=== PATIENT | female | born 1945 | race Caucasian/White ===

== ENCOUNTER 2021-02-09 15:41 | Inpatient (IN) | payer MEDICARE, SELFPAY ==
[2021-02-09 15:55] VITALS: BP 170/90; BP 175/99; PULSE 78; PULSE 82; RESP 16; TEMP 36.7; O2SAT 97; BMI 26.2
--- NOTE | 2021-02-09 16:13 | ED.PSYCH ---
HPI - Psych General Chief Complaint: Psychiatric Symptoms Stated Complaint: sec 12 SI ( feels unwell ) Time Seen by Provider: 02/09/21 18:08 Source: patient, family and EMS Mode of arrival: EMS Limitations: no limitations History of Present Illness HPI Narrative: 75-year-old female presents to the emergency department via EMS for psychiatric concerns. Patient was recently taken off Zyprexa and Depakote and family noted a quick decompensation with increase of paranoia and suicidal statements. MD complaint: suicidal ideation and feels depressed Duration: constant History of same: Yes Relieving factors: none Exacerbating factors: other (Medication discontinuation) Associated psychiatric symptoms: depression, suicidal ideation, racing thoughts and delusions Associated symptoms: denies other symptoms Treatments prior to arrival: placed on mental health hold If self harm: admits thoughts of self harm Related Data Home Medications Medication Instructions Recorded Confirmed aspirin 81 mg tablet 81 mg PO DAILY 02/09/21 02/09/21 carvedilol 6.25 mg tablet 1 tab PO BID 02/09/21 02/09/21 clopidogrel 75 mg tablet 1 tab PO DAILY 02/09/21 02/09/21 furosemide 40 mg tablet 1 tab PO DAILY 02/09/21 02/09/21 lisinopril 2.5 mg tablet 1 tab PO DAILY 02/09/21 02/09/21 magnesium 250 mg tablet 250 mg PO DAILY 02/09/21 02/09/21 pantoprazole 40 mg tablet,delayed 1 tab PO DAILY 02/09/21 02/09/21 release potassium chloride 10 mEq 2 tab PO DAILY 02/09/21 02/09/21 tablet,extended release Allergies Allergy/AdvReac Type Severity Reaction Status Date / Time No Known Allergies [NKA] Allergy Mild NOT Unverified 11/23/19 14:43 APPLICABLE Review of Systems Review of Systems: Constitutional: No Fever, No Chills ENT/Mouth: No Ear Pain, No Nasal Congestion, No sore throat Eyes: No Eye Pain, No Swelling, No Redness Cardiovascular: No Chest Pain, No SOB Respiratory: No Cough, No Sputum, No Dyspnea Gastrointestinal: No Nausea, No Vomiting, No Diarrhea, No Hematochezia, No Melena Genitourinary: No Dysuria, No Urinary Frequency, No Hematuria Musculoskeletal: No Myalgias Skin: No Skin Lesions, No rash Neuro: No Weakness, No Numbness, No Paresthesias, No Dizziness, No Headache Psych: positive Anxiety, positive Depression, positive SI Heme/Lymph: No Lymphadenopathy Endocrine: No Polyuria, No Polydipsia Yes all other systems are reviewed and are negative [facility] Past Medical History Attestation statement: The following information was validated with the patient. Source: old records reviewed Social History Social History Patient Tobacco Use Status: Never used Tobacco Advance Directives: No Advance Directives Information Provided: Yes Healthcare Proxy: No Guardian: No Physical Exam Vital Signs: Vital Signs: Last Vital Signs Temp 98.1 F 02/09/21 15:55 Pulse 78 02/09/21 15:55 Resp 16 02/09/21 15:55 BP 175/99 H 02/09/21 15:55 Pulse Ox 97 02/09/21 15:55 BMI result Body Mass Index 26.2 Appearance: Alert. Oriented X3. Moderate psychiatric distress. Eyes: Pupils equal, round and reactive to light. ENT: Pharynx normal. Neck: Normal inspection. Neck supple. CVS: Normal heart rate and rhythm. Pulses normal. Respiratory: No respiratory distress. Breath sounds normal. Abdomen: Soft and nontender. Skin: Skin warm and dry. Normal skin color. Normal skin turgor. Extremities: No lower extremity edema. Moves all extremities against resistance. Gait while balance well coordinated. Neuro: No motor deficit. No sensory deficit. Cranial nerves 2-12 intact. Course Course Course Narrative: [age] presents via EMS for psychiatric decompensation. Patient's son who is a painter rough and professional development director is at bedside. States that patient has a longstanding history of psychiatric concerns, was diagnosed with schizophrenia and recently taken off of Zyprexa and Depakote for tremors. Son has noted that patient is more delusional, paranoid, and has been making suicidal statements. She lives in an assisted living facility and she has been calling for assistance several times a day. Past medical history includes hypertension, hyperlipidemia, coronary artery disease history of STEMI status post JEAN PIERRE to LAD and CABG x2 in January of last year. Patient has been worked up at [facility] on 01/20/[address] head, CTA indicating 70% stenosis of the distal right common carotid artery and 75% stenosis of the right internal carotid, 60% stenosis of the internal carotid, mild narrowing of the origin of either vertebral artery approximately 50% stenosis of either intracranial vertebral artery. 50% stenosis of the distal cavernous and supraclinoid internal artery bilaterally. Normal anterior middle and posterior cerebral arteries EKG was 71, normal sinus rhythm with T-wave inversions in lateral leads with ST elevations with Wellens appearance in V1 through V3 unchanged from prior EKGs. EKG comparison from November 2020 with no significant findings. Patient does have heart failure with a left ejection fraction of 30-35% lab values were within normal limits. Plan of care is for inpatient bed search. Physician observation started at this time. 6:05 p.m. EKG indicates acute STEMI however, when compared to EKG from [facility] on 01/20 there are no significant changes. This is not an active STEMI. First troponin is 30.0. Repeat troponin at 8:30 p.m. 26.7. Patient is medically cleared. MDM - Psych Differential Diagnosis Differential diagnosis: Likely acute psychosis, suicidal ideation, depression and schizoaffective disorder Medical Records Attestation: I reviewed the patient's medical records. Lab Data Attestation: I reviewed the patient's lab results. Result diagrams: 02/09/21 16:51 02/09/21 16:51 Labs: Lab Results 02/09/21 02/09/21 02/09/21 Range/Units 16:41 16:41 16:51 WBC 13.3 H (4.8-10.8) X10*3/uL RBC 4.80 (4.20-5.50) X10*6/uL Hgb 15.1 (12.0-16.0) g/dl Hct 43.5 (37.0-47.0) % MCV 90.6 (80.0-98.0) fL MCH 31.5 (27.0-33.0) pg MCHC 34.7 (31.0-35.0) g/dl RDW 11.8 (11.0-16.0) % Plt Count 311 (160-400) X10*3/uL MPV 9.6 (9.4-12.3) fL Immature Gran % (Auto) 0.5 H (0.0-0.4) % Neut % (Auto) 74.8 H (45-73) % Lymph % (Auto) 14.7 L (20-40) % [place] % (Auto) 9.1 (2-11) % Eos % (Auto) 0.5 (0-4) % Baso % (Auto) 0.4 (0-2) % Lymph # (Auto) 2.0 (1.2-4.9) X10*3/uL [place] # (Auto) 1.2 (0.1-1.2) X10*3/uL Eos # (Auto) 0.1 (0.0-0.4) X10*3/uL Baso # (Auto) 0.1 (0.0-0.2) X10*3/uL Abs Immat Gran (auto) 0.06 H (0.00-0.03) X10*3/uL Absolute Neuts (auto) 10.0 H (2.0-8.3) x10*3/uL Absolute Nucleated RBC 0.000 (0.0-0.012) X10*3/uL Nucleated RBC % (auto) 0.0 (0.0-0.2) /100WBC Sodium (135-145) mmol/L Potassium (3.3-5.1) mmol/L Chloride (96-108) mmol/L Carbon Dioxide (22-29) mmol/L Anion Gap (12-20) BUN (9-16) mg/dL Creatinine (0.5-1.4) mg/dL Estim Creat Clear Calc Estimated GFR Random Glucose (60-115) mg/dL Calcium (8.4-10.2) mg/dL Total Bilirubin (0.0-1.0) mg/dL AST (5-31) U/L ALT (0-31) U/L Alkaline Phosphatase (39-117) U/L Troponin I High Sens (<3.5-17.0) ng/L Total Protein (6.5-8.0) g/dL Albumin (3.5-5.0) g/dL Urine Color Urine Appearance Urine pH (5.0-8.0) Ur Specific [place] (1.005-1.025) Urine Protein (NEG-TRACE) MG/DL Urine Glucose (UA) (NEG) MG/DL Urine Ketones (NEG) MG/DL Urine Blood (NEG) Urine Nitrite (NEG) Ur Leukocyte Esterase (NEG) Urine RBC (0) /HPF Urine WBC (0-4) /HPF Ur Squamous Epith Cells /LPF Urine Bacteria /LPF Salicylates (15-30) mg/dL Urine Opiates Screen Not Detected (Not Detect) Urine Fentanyl Screen Not Detected (Not Detect) Acetaminophen (<30) mcg/mL Ur Barbiturates Screen Not Detected (Not Detect) Ur Phencyclidine Scrn Not Detected (Not Detect) Ur Amphetamines Screen Not Detected (Not Detect) U Benzodiazepines Scrn Not Detected (Not Detect) Urine Cocaine Screen Not Detected (Not Detect) U Marijuana (THC) Screen Not Detected (Not Detect) Ethyl Alcohol mg/dL COVID-19 (SIN) Negative (Negative) COVID-19 Clin Com See Note 02/09/21 02/09/21 02/09/21 Range/Units 16:51 16:51 18:32 WBC (4.8-10.8) X10*3/uL RBC (4.20-5.50) X10*6/uL Hgb (12.0-16.0) g/dl Hct (37.0-47.0) % MCV (80.0-98.0) fL MCH (27.0-33.0) pg MCHC (31.0-35.0) g/dl RDW (11.0-16.0) % Plt Count (160-400) X10*3/uL MPV (9.4-12.3) fL Immature Gran % (Auto) (0.0-0.4) % Neut % (Auto) (45-73) % Lymph % (Auto) (20-40) % [place] % (Auto) (2-11) % Eos % (Auto) (0-4) % Baso % (Auto) (0-2) % Lymph # (Auto) (1.2-4.9) X10*3/uL [place] # (Auto) (0.1-1.2) X10*3/uL Eos # (Auto) (0.0-0.4) X10*3/uL Baso # (Auto) (0.0-0.2) X10*3/uL Abs Immat Gran (auto) (0.00-0.03) X10*3/uL Absolute Neuts (auto) (2.0-8.3) x10*3/uL Absolute Nucleated RBC (0.0-0.012) X10*3/uL Nucleated RBC % (auto) (0.0-0.2) /100WBC Sodium 135 (135-145) mmol/L Potassium 3.6 (3.3-5.1) mmol/L Chloride 97 (96-108) mmol/L Carbon Dioxide 24 (22-29) mmol/L Anion Gap 18 (12-20) BUN 22 H (9-16) mg/dL Creatinine 0.75 (0.5-1.4) mg/dL Estim Creat Clear Calc 57.3 Estimated GFR > 60 Random Glucose 128 H (60-115) mg/dL Calcium 10.7 H (8.4-10.2) mg/dL Total Bilirubin 0.5 (0.0-1.0) mg/dL AST 20 (5-31) U/L ALT 17 (0-31) U/L Alkaline Phosphatase 100 (39-117) U/L Troponin I High Sens 30.0 H (<3.5-17.0) ng/L Total Protein 7.7 (6.5-8.0) g/dL Albumin 4.5 (3.5-5.0) g/dL Urine Color Urine Appearance Urine pH (5.0-8.0) Ur Specific [place] (1.005-1.025) Urine Protein (NEG-TRACE) MG/DL Urine Glucose (UA) (NEG) MG/DL Urine Ketones (NEG) MG/DL Urine Blood (NEG) Urine Nitrite (NEG) Ur Leukocyte Esterase (NEG) Urine RBC (0) /HPF Urine WBC (0-4) /HPF Ur Squamous Epith Cells /LPF Urine Bacteria /LPF Salicylates < 5.0 L (15-30) mg/dL Urine Opiates Screen (Not Detect) Urine Fentanyl Screen (Not Detect) Acetaminophen < 1 (<30) mcg/mL Ur Barbiturates Screen (Not Detect) Ur Phencyclidine Scrn (Not Detect) Ur Amphetamines Screen (Not Detect) U Benzodiazepines Scrn (Not Detect) Urine Cocaine Screen (Not Detect) U Marijuana (THC) Screen (Not Detect) Ethyl Alcohol < 10 mg/dL COVID-19 (SIN) (Negative) COVID-19 Clin Com 02/09/21 02/09/21 Range/Units 19:52 20:20 WBC (4.8-10.8) X10*3/uL RBC (4.20-5.50) X10*6/uL Hgb (12.0-16.0) g/dl Hct (37.0-47.0) % MCV (80.0-98.0) fL MCH (27.0-33.0) pg MCHC (31.0-35.0) g/dl RDW (11.0-16.0) % Plt Count (160-400) X10*3/uL MPV (9.4-12.3) fL Immature Gran % (Auto) (0.0-0.4) % Neut % (Auto) (45-73) % Lymph % (Auto) (20-40) % [place] % (Auto) (2-11) % Eos % (Auto) (0-4) % Baso % (Auto) (0-2) % Lymph # (Auto) (1.2-4.9) X10*3/uL [place] # (Auto) (0.1-1.2) X10*3/uL Eos # (Auto) (0.0-0.4) X10*3/uL Baso # (Auto) (0.0-0.2) X10*3/uL Abs Immat Gran (auto) (0.00-0.03) X10*3/uL Absolute Neuts (auto) (2.0-8.3) x10*3/uL Absolute Nucleated RBC (0.0-0.012) X10*3/uL Nucleated RBC % (auto) (0.0-0.2) /100WBC Sodium (135-145) mmol/L Potassium (3.3-5.1) mmol/L Chloride (96-108) mmol/L Carbon Dioxide (22-29) mmol/L Anion Gap (12-20) BUN (9-16) mg/dL Creatinine (0.5-1.4) mg/dL Estim Creat Clear Calc Estimated GFR Random Glucose (60-115) mg/dL Calcium (8.4-10.2) mg/dL Total Bilirubin (0.0-1.0) mg/dL AST (5-31) U/L ALT (0-31) U/L Alkaline Phosphatase (39-117) U/L Troponin I High Sens 26.7 H (<3.5-17.0) ng/L Total Protein (6.5-8.0) g/dL Albumin (3.5-5.0) g/dL Urine Color YELLOW Urine Appearance CLEAR Urine pH 6.5 (5.0-8.0) Ur Specific [place] <= 1.005 (1.005-1.025) Urine Protein NEG (NEG-TRACE) MG/DL Urine Glucose (UA) NEG (NEG) MG/DL Urine Ketones NEG (NEG) MG/DL Urine Blood NEG (NEG) Urine Nitrite NEG (NEG) Ur Leukocyte Esterase NEG (NEG) Urine RBC 0-2 (0) /HPF Urine WBC 0-2 (0-4) /HPF Ur Squamous Epith Cells NONE /LPF Urine Bacteria NONE /LPF Salicylates (15-30) mg/dL Urine Opiates Screen (Not Detect) Urine Fentanyl Screen (Not Detect) Acetaminophen (<30) mcg/mL Ur Barbiturates Screen (Not Detect) Ur Phencyclidine Scrn (Not Detect) Ur Amphetamines Screen (Not Detect) U Benzodiazepines Scrn (Not Detect) Urine Cocaine Screen (Not Detect) U Marijuana (THC) Screen (Not Detect) Ethyl Alcohol mg/dL COVID-19 (SIN) (Negative) COVID-19 Clin Com ECG Data Attestation: I personally reviewed and interpreted this ECG as follows: ECG interpretation date: 02/09/21 ECG interpretation time: 16:05 Prior ECG tracings: available for review Interpretation: Vent. rate 71 BPM FL interval 152 ms QRS duration 100 ms QT/QTc 426/462 ms P-R-T axes 57 42 146 Normal sinus rhythm Left atrial enlargement Left ventricular hypertrophy ( [place] product ) Anteroseptal infarct , possibly acute Marked T wave abnormality, consider lateral ischemia ACUTE UT / STEMI Abnormal ECG When compared with ECG of 11-NOV-2007 14:25, QRS duration has increased ST elevation now present in Anterior leads..T wave inversion now evident in Anterolateral leads Please note, this EKG was compared to EKG from [facility] on 01/20/2021. There were no significant changes. Discharge Plan Discharge Clinical Impression: Acute psychosis, Chronic schizophrenia, Suicidal ideation Prescriptions: No Action furosemide 40 mg tablet 1 tab PO DAILY RF: 0 carvedilol 6.25 mg tablet 1 tab PO BID RF: 0 potassium chloride 10 mEq tablet extended release 2 tab PO DAILY RF: 0 clopidogrel 75 mg tablet 1 tab PO DAILY RF: 0 pantoprazole 40 mg tablet,delayed release (DR/EC) 1 tab PO DAILY RF: 0 magnesium 250 mg Tablet 250 mg PO DAILY RF: 0 aspirin 81 mg Tablet 81 mg PO DAILY RF: 0 lisinopril 2.5 mg tablet 1 tab PO DAILY RF: 0
--- NOTE | 2021-02-09 16:16 | ECG_ITS ---
Test Reason : MED CLEARANCE Blood Pressure : / mmHG Vent. Rate : 071 BPM Atrial Rate : 071 BPM P-R Int : 152 ms QRS Dur : 100 ms QT Int : 426 ms P-R-T Axes : 057 042 146 degrees QTc Int : 462 ms Normal sinus rhythm Left atrial enlargement Left ventricular hypertrophy Anteroseptal infarct , possibly acute Marked T wave abnormality, consider lateral ischemia ACUTE NV / STEMI Abnormal ECG When compared with ECG of 11-NOV-2007 14:25, QRS duration has increased ST elevation now present in Anterior leads T wave inversion now evident in Anterolateral leads Referred By: María Elena Brody Electronically Signed By:Joseph Post
--- NOTE | 2021-02-09 16:43 | PC.NURSE ---
called 5th floor to inquire about psych consult
[2021-02-09 16:55] LABS: MANUAL DIFF FLAG NO
[2021-02-09 16:58] LABS: Basophils Absolute Auto 0.1 X10*3/uL (0.0-0.2); Basophils Percent Auto 0.4 % (0-2); Eosinophils Absolute Auto 0.1 X10*3/uL (0.0-0.4); Eosinophils Percent Auto 0.5 % (0-4); Hematocrit 43.5 % (37.0-47.0); Hemoglobin 15.1 g/dl (12.0-16.0); Imm Gran Abs Auto 0.06 X10*3/uL (0.00-0.03); Imm Gran Pct Auto 0.5 % (0.0-0.4); Lymphocytes Percent Auto 14.7 % (20-40); Mean Corpuscular HGB Conc 34.7 g/dl (31.0-35.0); Mean Corpuscular Hemoglobin 31.5 pg (27.0-33.0); Mean Corpuscular Volume 90.6 fL (80.0-98.0); Mean Platelet Volume 9.6 fL (9.4-12.3); Monocytes Absolute Auto 1.2 X10*3/uL (0.1-1.2); Monocytes Percent Auto 9.1 % (2-11); Neutrophils Percent Auto 74.8 % (45-73); Platelet Count 311 X10*3/uL (160-400); Red Cell Distribution Width 11.8 % (11.0-16.0); White Blood Count 13.3 X10*3/uL (4.8-10.8)
--- NOTE | 2021-02-09 17:07 | PC.NURSE ---
faxed BEL to [facility] for last months admission
[2021-02-09 17:09] LABS: Ethanol < 10 mg/dL
[2021-02-09 17:12] LABS: Amphetamine Screen Urine Not Detected (Not Detect); Barbiturates, Urine Not Detected (Not Detect); Benzodiazepines Screen Urine Not Detected (Not Detect); Cannabinoid Screen Urine Not Detected (Not Detect); Cocaine Screen Urine Not Detected (Not Detect); Fentanyl, urine Not Detected (Not Detect); Opiate Screen Urine Not Detected (Not Detect); Phencyclidine Screen Urine Not Detected (Not Detect)
[2021-02-09 17:14] LABS: COVID-19 Test Negative (Negative)
[2021-02-09 17:16] LABS: Acetaminophen LAB < 1 mcg/mL (<30); Alanine Aminotransferase 17 U/L (0-31); Albumin Level 4.5 g/dL (3.5-5.0); Alkaline Phosphatase 100 U/L (39-117); Anion Gap 18 (12-20); Aspartate Amino Transferase 20 U/L (5-31); Bilirubin Total 0.5 mg/dL (0.0-1.0); Blood Urea Nitrogen 22 mg/dL (9-16); Calcium 10.7 mg/dL (8.4-10.2); Carbon Dioxide 24 mmol/L (22-29); Chloride 97 mmol/L (96-108); Creatinine Clr Calc Pharmacy 57.3; Estimated Glomerular Filt Rate > 60; Glucose Random 128 mg/dL (60-115); Potassium 3.6 mmol/L (3.3-5.1); Salicylate < 5.0 mg/dL (15-30); Sodium 135 mmol/L (135-145); Total Protein 7.7 g/dL (6.5-8.0)
[2021-02-09 20:01] LABS: Appearance Urine CLEAR; Color Urine YELLOW; Glucose Urine UA NEG (NEG); Leukocyte Esterase Urine NEG (NEG); Nitrite Urine NEG (NEG); PH 6.5 (5.0-8.0); Specific Gravity - Urine <= 1.005 (1.005-1.025); Urine Blood NEG (NEG); Urine Ketones NEG (NEG); Urine Protein NEG (NEG-TRACE)
[2021-02-09 20:07] LABS: RBC Urine 0-2 /HPF (0); WBC Urine 0-2 /HPF (0-4)
[2021-02-09 20:43] LABS: Troponin-I High Sensitivity 26.7 ng/L (<3.5-17.0)
[2021-02-10 00:04] VITALS: BP 157/79; PULSE 72
[2021-02-10] MEDS: carvediloL 6.25 MG TABLET PO ×3 (00:04→21:21)
[2021-02-10 00:05] VITALS: BP 157/79; PULSE 71; RESP 16; TEMP 37.1; O2SAT 97
--- NOTE | 2021-02-10 06:20 | PC.NURSE ---
Patient slept through the night, no distress observed/reported, patient ambulated securely with walker, medication compliant, standing psych consult to review her discontinued medication, per Care Team patient's disposition is section 12 inpatient bed search, behavior appropriate, VS at baseline, will continue to monitor.
[2021-02-10 07:37] VITALS: BP 166/91; PULSE 82
[2021-02-10] MEDS: Furosemide 40 MG TABLET PO (07:37)
[2021-02-10] MEDS: lisinopriL 2.5 MG TABLET PO (07:37)
[2021-02-10] MEDS: Aspirin 81 MG TAB.CHEW PO (07:38)
[2021-02-10] MEDS: Clopidogrel Bisulfate 75 MG TABLET PO (07:38)
--- NOTE | 2021-02-10 07:57 | PC.NURSE ---
pt seemingly very anxious. states she feels weird and has pressured speech. Pt c/o heart burn and some dizziness after walking. Pt sitting down. BP 177/90. Pt given verbal reassurance. made aware.
--- NOTE | 2021-02-10 09:15 | PC.NURSE ---
PT asking if she needs a CT scan. PT asked if she has any pain or discomfort, pt denies states that she feels drugged up . PT asked multiple times if she has pain or discomfort and denies each time. PT ambulating with steady gait, uses walker at times.
[2021-02-10] MEDS: Omeprazole 20 MG CAPSULE.DR PO (09:54)
[2021-02-10] MEDS: Magnesium Oxide 400 MG TABLET PO (09:54)
[2021-02-10] MEDS: Calcium + Vitamin D 250 MG TABLET PO (09:54)
--- NOTE | 2021-02-10 10:27 | PM.PSYCN ---
History of Present Illness Date of Service: 02/10/21 Chief Complaint: sec 12 SI ( feels unwell ) Reason for Consult: medication consult Requesting physician: María Elena Brody Discussed with referring provider: Yes (Discussed with covering provider, Alicia Moreno) Sources of Information: patient interviewed, chart reviewed and crisis/core team assessment reviewed HPI Narrative: Patient is a 75-year-old female that presented to the emergency department via EMS for psychiatric issues. Patient had recently stopped olanzapine and Depakote in March 2020. As per chart review, it is noted that over the past few months patient has had decompensation in psychiatric symptoms, including increased paranoia and anxiety. It was also noted that patient had made suicidal statements. I met with patient this morning. She was A&O x3. She had been ambulating out to the hallway with walker, but then stated she would meet with myself and student [employer]. She sat down in chair, posture within normal limits. Patient reports today that she feels ?drugged up ?this morning. She states that she stopped taking her antipsychotic medication and mood stabilizer ?quite a while ago ?, as she was feeling better. She denies SI at this time, and states ?I never wanted to hurt myself ?. Denies any type of auditory or visual hallucinations. She states that she has been living in an apartment through housing authority independently. She states that she had noticed a tremor in her hands, and had decided to stop taking olanzapine and Depakote last year. She states that at 1 point she had been told she has Parkinson's disease, and had been placed on a medication for it. She states that she had stopped that medication as well. Patient reports that she is not sure what happened, but that she feels ?drugged up . She then reports that she believes somebody may be trying to ?set me up ?. When asked to further elaborate, she was vague in her response. Paranoia and some confusion noted during encounter. . She appeared confused at times, and reports ?I do not know what I feel anymore ?. When asked how she cares for herself at home, she states that she has her family to help her. She does say that she has had depression in the past, but that she is not depressed at this time. She reports that she had a psychiatric provider at 1 time, but has not seen that person and that a while. She reports that she has worked with a therapist, Zena gonzáles, in the past. She reports that she called the therapist last week, who has agreed to work with her. She was tangental and circumstantial during encounter, appeared anxious, fearful. When told that the plan was for her to go to the inpatient unit, she stated she was looking forward to this. When discussing medications including olanzapine and Depakote, she stated that she would be willing to start them again today, in low doses. Past Psychiatric History: [facility] ED 3Xin past 2 months for somatic sx IPLOC at [facility], in 2009. Remote hx of IPLOC at [facility], [facility]. Previous SI attempt. Therapist Zena Maldonado, reports she just started working with again last week. Psych provider Nidhi Nava Nini at [facility], Medical Evaluation Reviewed: Yes Personal & Social History: Patient reports that she lives by herself in subsidized apartment, . Has grown children (son is Juanito Stephenson [phone]). Has grandchildren. PCP Garrison Beatty, [facility], [facility] medicine, . Review of Systems Review of Systems Reports feeling unwell , ?drugged up?. Yes all other systems are reviewed and are negative Constitutional: Reports no additional constitutional complaints Eyes: Reports no additional eye complaints Reports system reviewed and no additional complaints, except as documented, Reports as per HPI and Reports Normal hearing present Cardiovascular: Reports as per HPI and Reports no additional cardiovascular complaints Respiratory: Reports as per HPI and Reports no additional respiratory complaints Gastrointestinal: Reports as per HPI and Reports no additional gastrointestinal complaints Genitourinary: Reports no additional female genitourinary complaints and Reports as per HPI Musculoskeletal: Reports as per HPI Skin/Breast: Reports as per HPI Reports as per HPI, Reports Normal hearing present, Reports behavioral changes, Reports confusion and Reports tremor(s) (slight tremor noted right hand) Psychiatric: Reports abnormal sleep pattern, Reports anxiety, Reports behavioral changes, Reports confusion, Reports difficulty concentrating and Reports paranoia Endocrine: Reports no additional endocrine complaints and Reports as per HPI Hematologic/Lymphatic: Reports no additional hematologic/lymphatic complaints and Reports as per HPI Allergic/Immunologic: Reports no additional allergic/immunologic complaints [facility] Family History: Raised by parents, 1 brother, 1 sister. Siblings local. Mother : Alzheimers dementia. Father : Question of psychosis. Brother: Question of psychosis. Sister: Question of dementia. Social History: , lives by self in shelter apartment. Has 1 son, has grand children. Substance History: No family history of MACARENA reported Trauma History: Unknown. Diagnostics Vital Signs (24Hr): Vital Signs - 24 hr 02/09/21 15:55 02/10/21 00:04 02/10/21 00:05 Temperature 98.1 F 98.7 F Pulse Rate 78 72 71 Respiratory Rate 16 16 Blood Pressure 175/99 H 157/79 H 157/79 H Pulse Oximetry 97 97 02/10/21 07:37 Temperature Pulse Rate 82 Respiratory Rate Blood Pressure 166/91 H Pulse Oximetry BMI result Body Mass Index 26.2 Labs Results: 02/09/21 16:51 02/09/21 16:51 Labs: Laboratory Results - last 48 hr 02/09/21 02/09/21 02/09/21 16:41 16:41 16:51 WBC 13.3 H RBC 4.80 Hgb 15.1 Hct 43.5 MCV 90.6 MCH 31.5 MCHC 34.7 RDW 11.8 Plt Count 311 MPV 9.6 Immature Gran % (Auto) 0.5 H Neut % (Auto) 74.8 H Lymph % (Auto) 14.7 L [place] % (Auto) 9.1 Eos % (Auto) 0.5 Baso % (Auto) 0.4 Lymph # (Auto) 2.0 [place] # (Auto) 1.2 Eos # (Auto) 0.1 Baso # (Auto) 0.1 Abs Immat Gran (auto) 0.06 H Absolute Neuts (auto) 10.0 H Absolute Nucleated RBC 0.000 Nucleated RBC % (auto) 0.0 Sodium Potassium Chloride Carbon Dioxide Anion Gap BUN Creatinine Estim Creat Clear Calc Estimated GFR Random Glucose Calcium Total Bilirubin AST ALT Alkaline Phosphatase Troponin I High Sens Total Protein Albumin Urine Color Urine Appearance Urine pH Ur Specific [place] Urine Protein Urine Glucose (UA) Urine Ketones Urine Blood Urine Nitrite Ur Leukocyte Esterase Urine RBC Urine WBC Ur Squamous Epith Cells Urine Bacteria Salicylates Urine Opiates Screen Not Detected Urine Fentanyl Screen Not Detected Acetaminophen Ur Barbiturates Screen Not Detected Ur Phencyclidine Scrn Not Detected Ur Amphetamines Screen Not Detected U Benzodiazepines Scrn Not Detected Urine Cocaine Screen Not Detected U Marijuana (THC) Screen Not Detected Ethyl Alcohol COVID-19 (SIN) Negative COVID-19 eLifestyles See Note 02/09/21 02/09/21 02/09/21 16:51 16:51 18:32 WBC RBC Hgb Hct MCV MCH MCHC RDW Plt Count MPV Immature Gran % (Auto) Neut % (Auto) Lymph % (Auto) [place] % (Auto) Eos % (Auto) Baso % (Auto) Lymph # (Auto) [place] # (Auto) Eos # (Auto) Baso # (Auto) Abs Immat Gran (auto) Absolute Neuts (auto) Absolute Nucleated RBC Nucleated RBC % (auto) Sodium 135 Potassium 3.6 Chloride 97 Carbon Dioxide 24 Anion Gap 18 BUN 22 H Creatinine 0.75 Estim Creat Clear Calc 57.3 Estimated GFR > 60 Random Glucose 128 H Calcium 10.7 H Total Bilirubin 0.5 AST 20 ALT 17 Alkaline Phosphatase 100 Troponin I High Sens 30.0 H Total Protein 7.7 Albumin 4.5 Urine Color Urine Appearance Urine pH Ur Specific [place] Urine Protein Urine Glucose (UA) Urine Ketones Urine Blood Urine Nitrite Ur Leukocyte Esterase Urine RBC Urine WBC Ur Squamous Epith Cells Urine Bacteria Salicylates < 5.0 L Urine Opiates Screen Urine Fentanyl Screen Acetaminophen < 1 Ur Barbiturates Screen Ur Phencyclidine Scrn Ur Amphetamines Screen U Benzodiazepines Scrn Urine Cocaine Screen U Marijuana (THC) Screen Ethyl Alcohol < 10 COVID-19 (SIN) COVID-19 eLifestyles 02/09/21 02/09/21 19:52 20:20 WBC RBC Hgb Hct MCV MCH MCHC RDW Plt Count MPV Immature Gran % (Auto) Neut % (Auto) Lymph % (Auto) [place] % (Auto) Eos % (Auto) Baso % (Auto) Lymph # (Auto) [place] # (Auto) Eos # (Auto) Baso # (Auto) Abs Immat Gran (auto) Absolute Neuts (auto) Absolute Nucleated RBC Nucleated RBC % (auto) Sodium Potassium Chloride Carbon Dioxide Anion Gap BUN Creatinine Estim Creat Clear Calc Estimated GFR Random Glucose Calcium Total Bilirubin AST ALT Alkaline Phosphatase Troponin I High Sens 26.7 H Total Protein Albumin Urine Color YELLOW Urine Appearance CLEAR Urine pH 6.5 Ur Specific [place] <= 1.005 Urine Protein NEG Urine Glucose (UA) NEG Urine Ketones NEG Urine Blood NEG Urine Nitrite NEG Ur Leukocyte Esterase NEG Urine RBC 0-2 Urine WBC 0-2 Ur Squamous Epith Cells NONE Urine Bacteria NONE Salicylates Urine Opiates Screen Urine Fentanyl Screen Acetaminophen Ur Barbiturates Screen Ur Phencyclidine Scrn Ur Amphetamines Screen U Benzodiazepines Scrn Urine Cocaine Screen U Marijuana (THC) Screen Ethyl Alcohol COVID-19 (SIN) COVID-19 Clin Com EKG EKG: reviewed Mental Status Exam Mental Status Exam Narrative: Well-developed, well-nourished female, in NAD. Ambulated well with walker. Motor activity calm, posture within normal limits. No cogwheeling or rigidity noted. Patient does have slight tremor in right hand. Patient Appearance: Well Grooomed and Appropriate Patient Orientation: Person, Place, Time and Situation (Patient alert and oriented, however does display paranoia and confusion at times.) Level of Consciousness: Appropriate and Alert Patient Behavior: Guarded, Cooperative, Fearful and Good Eye Contact Mood Description: Calm and Appropriate Affect Description: Suspicious, Anxious and Apprehensive Patient Cognition Impaired: No Ability to Follow Directions: Excellent Speech Pattern: Clear, Appropriate and Coherent Memory Description: Intact Hallucinations: None Delusions: Paranoid Ideation and Present Thought Process: Illogical and Distracted Thought Content: positive for Circumstantial, positive for Perseveration, positive for Preoccupation, positive for Hypochondriasis and positive for Suicidal Ideation (Denies SI, had reported SI when transported to ED.) Depressive Symptoms: Increased Anxiety, Difficulty Sleeping and Increased Fatigue Abnormal Motor Activity Signs and Symptoms: Tremors (right hand slight tremor noted) Judgement: Poor Medications Medications Current Medications Aspirin (Aspirin 81 Mg Tab.Chew) 81 mg PO DAILY [facility] Last Admin: 02/10/21 07:38 Dose: 81 mg Documented by: Calcium Carbonate/Cholecalciferol (Calcium + Vitamin D 250 Mg Tablet) 250 mg PO DAILY [facility] Last Admin: 02/10/21 09:54 Dose: 250 mg Documented by: Carvedilol (Carvedilol 6.25 Mg Tablet) 6.25 mg PO BID [facility]; Protocol Last Admin: 02/10/21 07:37 Dose: 6.25 mg Documented by: Clopidogrel Bisulfate (Clopidogrel Bisulfate 75 Mg Tablet) 75 mg PO DAILY [facility] Last Admin: 02/10/21 07:38 Dose: 75 mg Documented by: Furosemide (Furosemide 40 Mg Tablet) 40 mg PO DAILY [facility]; Protocol Last Admin: 02/10/21 07:37 Dose: 40 mg Documented by: Lisinopril (Lisinopril 2.5 Mg Tablet) 2.5 mg PO DAILY [facility]; Protocol Last Admin: 02/10/21 07:37 Dose: 2.5 mg Documented by: Magnesium Oxide (Magnesium Oxide 400 Mg Tablet) 400 mg PO DAILY [facility] Last Admin: 02/10/21 09:54 Dose: 400 mg Documented by: Omeprazole (Omeprazole 20 Mg Capsule.Dr) 20 mg PO DAILY@0630 [facility] Last Admin: 02/10/21 09:54 Dose: 20 mg Documented by: Potassium Chloride (Potassium Chloride Er 10 Meq Capsule.Er) 20 meq PO DAILY [facility] Last Admin: 02/10/21 07:37 Dose: 20 meq Documented by: Allergies Allergies Allergy/AdvReac Type Severity Reaction Status Date / Time No Known Allergies [NKA] Allergy Mild NOT Unverified 11/23/19 14:43 APPLICABLE Assessment & Plan Assessment & Plan (1) Acute psychosis: Status: Acute Code(s): F23 - Brief psychotic disorder Assessment and Plan: Patient appears to be experiencing psychosis, as noted by paranoia, believing people are trying to hurt her, spying on her. Patient had decided to stop scheduled olanzapine and Depakote in March 2020, after experiencing cardiac event in February 2020. She states that this was against her psychiatric providers advice. Per chart review, it appears patient has had symptoms of decompensation over the past several months, including multiple visits to ED in [place] for somatic complaints, calling family and property management multiple times at odd hours for various issues, including believe that somebody is watching her through her TV, and people in the community (at [facility], office) are spying on her. Patient presented as frightened and anxious. When discussing medications, she was agreeable to start a low dose of Depakote, agreed to take 125 mg twice daily. She was also agreeable to start 2.5 olanzapine daily. She stated she was hopeful regarding pending inpatient hospitalization, as she believes she may need some help. (2) Chronic schizophrenia: Status: Acute Code(s): F20.9 - Schizophrenia, unspecified (3) Suicidal ideation: Status: Acute Code(s): R45.851 - Suicidal ideations Assessment and Plan: Patient denies any SI to this signwriter. However, as per chart review, she had left note on her door in her apartment, and had plan for completing suicide. Patient also has a remote history of suicide attempt, with multiple hospitalizations in past. Assessment and Plan: 1. Patient is pending admission to inpatient psychiatric unit, expected this evening. 2. Start olanzapine 2.5 mg daily. 3. Start Depakote 125 mg b.i.d.. I spent minutes with the patient and/or on the patient floor today, greater than?50% of which was spent counseling/coordinating care.
[2021-02-10] MEDS: OLANZapine 2.5 MG TABLET PO (10:44)
[2021-02-10] MEDS: Divalproex Sodium Sprinkles 125 MG CAP.DR.SPR PO (10:44)
[2021-02-10 15:37] VITALS: BP 110/53; PULSE 72; TEMP 36.9; O2SAT 98
[2021-02-10 20:08] VITALS: BP 134/67; PULSE 74; TEMP 37; O2SAT 99
--- NOTE | 2021-02-10 21:08 | PC.NURSE ---
Emily is a 75 YO female admitted directly from the ED on a CV for making SI statements to her son. Per N patient has been off of her medication since March (10 months), having increased anxiety and paranoia since then. This patient Denies SI/HI on admission, states that she does not remember making SI statements to her son. Patient lives alone in an apartment. Emily denies history of trauma. Emily reports that she usually sleeps well at night, and wants to be her in order to re-establish her medication regime, which she states made her feel better. She reports that her appetite is good. At this moment patient denies physical complaints.
--- NOTE | 2021-02-10 21:14 | PC.NURSE ---
Patient has walker on unit. She states that she only uses one on longer walks, as she fears that she might get tired and fall.
[2021-02-10 21:21] VITALS: PULSE 70
--- NOTE | 2021-02-10 22:11 | PC.NURSE ---
patient asked not to be woken up for omeprazole, will take it when she gets up.
[2021-02-11] VITALS (7 sets, daily range): BP systolic 140–189; BP diastolic 92–104; PULSE 71–88; RESP 18; TEMP 36.7; O2SAT 98–99
[2021-02-11] MEDS: Aspirin 81 MG TAB.CHEW PO (08:37)
[2021-02-11] MEDS: Potassium Chloride ER 20 MEQ TAB.ER.PRT PO (08:37)
[2021-02-11] MEDS: Furosemide 40 MG TABLET PO (08:38)
[2021-02-11] MEDS: lisinopriL 2.5 MG TABLET PO ×2 (08:38→18:52)
[2021-02-11] MEDS: carvediloL 6.25 MG TABLET PO ×2 (08:39→18:49)
[2021-02-11] MEDS: Omeprazole 20 MG CAPSULE.DR PO (08:40)
[2021-02-11] MEDS: Clopidogrel Bisulfate 75 MG TABLET PO (08:40)
--- NOTE | 2021-02-11 13:08 | P.HPPS_ITS ---
HPI Date of Service: 02/11/21 Chief Complaint: Paranoia Sources of Information: patient interviewed, chart reviewed and crisis/core team assessment reviewed HPI Subjective Notes: Conditional Voluntary Narrative: Ms. Stephenson is a 75 year-old woman with hx of schizoaffective disorder who was brought to [facility] ED via EMS after son called reporting that pt presents as increasingly more paranoid towards neighrbors, thinking that people are talking about her, more disorganized. Pt used to be on combination of depakote and olanzapine but both medications stopped per pt request. In the ED, utox is neg. On the unit, pt presents as pleasant, somewhat tearful at times. Pt reports she stopped olanzapine and depakote due to hand tremors. She was seen by neurologist at [facility], Dr. French who started pt on levo-dopa, ?parkison's. Pt reports she did not take levo-dopa due to concerns about potential side effects. Pt reports tremors are less. Note resting tremor mostly on right hand. Pt reports that she has been hearing people talking about her even when she can't see them. Pt reports that someone had entered her apartment. Pt worried that she may have been poisoned. Pt denies suicidal ideation and becomes very tearful when talking about past suicide attempt 10 years ago. She reports that she thought she was being poisoned and wanted to make sure her son knew that she did not kill herself should something happened to her. While meeting, pt very anxious about security being on the unit and thinking they were there for her despite reassuring her that they were assisting with transfer. Pt very worried about potential side effects of medications. Past Psychiatric History: [facility] ED 3Xin past 2 months for somatic sx IPLOC at [facility], in 2009. Remote hx of IPLOC at [facility], [facility]. Previous SI attempt in 2009 Therapist Zena Maldonado, reports she just started working with again last week. Psych provider ESTRELLA Calle at [facility], Medical Evaluation Reviewed: Yes Past medical history includes hypertension, hyperlipidemia, coronary artery disease history of STEMI status post JEAN PIERRE to LAD and CABG x2 in January of last year. Per ED provider on 02/10/2021--->Patient has been worked up at [facility] on 01/20/[address] head, CTA indicating 70% stenosis of the distal right common carotid artery and 75% stenosis of the right internal carotid, 60% stenosis of the internal carotid, mild narrowing of the origin of either vertebral artery approximately 50% stenosis of either intracranial vertebral artery.? 50% stenosis of the distal cavernous and supraclinoid internal artery bilaterally.? Normal anterior middle and posterior cerebral arteries EKG was 71, normal sinus rhythm with T-wave inversions in lateral leads with ST elevations with Wellens appearance in V1 through V3 unchanged from prior EKGs.? EKG comparison from November 2020 with no significant findings.? Patient does have heart failure with a left ejection fraction of 30-35% lab values were within normal limits. [facility] Family History: Raised by parents, 1 brother, 1 sister. Siblings local. Mother : Alzheimers dementia. Father : Question of psychosis. Brother: Question of psychosis. Sister: Question of dementia. Social History: , lives by self in detention apartment. Has 1 son, has grand children. Trauma History: Unknown. Diagnostics Vital Signs (24Hr): Vital Signs - 24 hr 02/10/21 20:08 02/10/21 21:21 02/11/21 08:33 Temperature 98.6 F 98.1 F Pulse Rate 74 70 71 Respiratory Rate 18 Blood Pressure 134/67 140/92 H Pulse Oximetry 99 98 02/11/21 08:38 02/11/21 08:39 Temperature Pulse Rate 71 71 Respiratory Rate Blood Pressure 140/92 H 140/92 H Pulse Oximetry BMI result Body Mass Index 26.2 Labs Results: 02/09/21 16:51 02/09/21 16:51 Labs: Laboratory Results - last 48 hr 02/09/21 02/09/21 02/09/21 16:41 16:41 16:51 WBC 13.3 H RBC 4.80 Hgb 15.1 Hct 43.5 MCV 90.6 MCH 31.5 MCHC 34.7 RDW 11.8 Plt Count 311 MPV 9.6 Immature Gran % (Auto) 0.5 H Neut % (Auto) 74.8 H Lymph % (Auto) 14.7 L Hill % (Auto) 9.1 Eos % (Auto) 0.5 Baso % (Auto) 0.4 Lymph # (Auto) 2.0 Hill # (Auto) 1.2 Eos # (Auto) 0.1 Baso # (Auto) 0.1 Abs Immat Gran (auto) 0.06 H Absolute Neuts (auto) 10.0 H Absolute Nucleated RBC 0.000 Nucleated RBC % (auto) 0.0 Sodium Potassium Chloride Carbon Dioxide Anion Gap BUN Creatinine Estim Creat Clear Calc Estimated GFR Random Glucose Calcium Total Bilirubin AST ALT Alkaline Phosphatase Troponin I High Sens Total Protein Albumin Urine Color Urine Appearance Urine pH Ur Specific [place] Urine Protein Urine Glucose (UA) Urine Ketones Urine Blood Urine Nitrite Ur Leukocyte Esterase Urine RBC Urine WBC Ur Squamous Epith Cells Urine Bacteria Salicylates Urine Opiates Screen Not Detected Urine Fentanyl Screen Not Detected Acetaminophen Ur Barbiturates Screen Not Detected Ur Phencyclidine Scrn Not Detected Ur Amphetamines Screen Not Detected U Benzodiazepines Scrn Not Detected Urine Cocaine Screen Not Detected U Marijuana (THC) Screen Not Detected Ethyl Alcohol COVID-19 (SIN) Negative COVID-VTL Group See Note 02/09/21 02/09/21 02/09/21 16:51 16:51 18:32 WBC RBC Hgb Hct MCV MCH MCHC RDW Plt Count MPV Immature Gran % (Auto) Neut % (Auto) Lymph % (Auto) Hill % (Auto) Eos % (Auto) Baso % (Auto) Lymph # (Auto) Hill # (Auto) Eos # (Auto) Baso # (Auto) Abs Immat Gran (auto) Absolute Neuts (auto) Absolute Nucleated RBC Nucleated RBC % (auto) Sodium 135 Potassium 3.6 Chloride 97 Carbon Dioxide 24 Anion Gap 18 BUN 22 H Creatinine 0.75 Estim Creat Clear Calc 57.3 Estimated GFR > 60 Random Glucose 128 H Calcium 10.7 H Total Bilirubin 0.5 AST 20 ALT 17 Alkaline Phosphatase 100 Troponin I High Sens 30.0 H Total Protein 7.7 Albumin 4.5 Urine Color Urine Appearance Urine pH Ur Specific [place] Urine Protein Urine Glucose (UA) Urine Ketones Urine Blood Urine Nitrite Ur Leukocyte Esterase Urine RBC Urine WBC Ur Squamous Epith Cells Urine Bacteria Salicylates < 5.0 L Urine Opiates Screen Urine Fentanyl Screen Acetaminophen < 1 Ur Barbiturates Screen Ur Phencyclidine Scrn Ur Amphetamines Screen U Benzodiazepines Scrn Urine Cocaine Screen U Marijuana (THC) Screen Ethyl Alcohol < 10 COVID-19 (SIN) COVID-VTL Group 02/09/21 02/09/21 19:52 20:20 WBC RBC Hgb Hct MCV MCH MCHC RDW Plt Count MPV Immature Gran % (Auto) Neut % (Auto) Lymph % (Auto) Hill % (Auto) Eos % (Auto) Baso % (Auto) Lymph # (Auto) Hill # (Auto) Eos # (Auto) Baso # (Auto) Abs Immat Gran (auto) Absolute Neuts (auto) Absolute Nucleated RBC Nucleated RBC % (auto) Sodium Potassium Chloride Carbon Dioxide Anion Gap BUN Creatinine Estim Creat Clear Calc Estimated GFR Random Glucose Calcium Total Bilirubin AST ALT Alkaline Phosphatase Troponin I High Sens 26.7 H Total Protein Albumin Urine Color YELLOW Urine Appearance CLEAR Urine pH 6.5 Ur Specific [place] <= 1.005 Urine Protein NEG Urine Glucose (UA) NEG Urine Ketones NEG Urine Blood NEG Urine Nitrite NEG Ur Leukocyte Esterase NEG Urine RBC 0-2 Urine WBC 0-2 Ur Squamous Epith Cells NONE Urine Bacteria NONE Salicylates Urine Opiates Screen Urine Fentanyl Screen Acetaminophen Ur Barbiturates Screen Ur Phencyclidine Scrn Ur Amphetamines Screen U Benzodiazepines Scrn Urine Cocaine Screen U Marijuana (THC) Screen Ethyl Alcohol COVID-19 (SIN) COVID-19 Clin Com Meds/Allergies Meds Home Medications Acetaminophen (Acetaminophen 325 Mg Tablet) 650 mg PO Q6H PRN PRN Reason: Headache/Pain Mild Scale (1-3) Al Hydroxide/Mg Hydroxide (Magnesium Hydrox/Alum Hydrox 30 Ml Oral.Susp) 30 ml PO Q6H PRN PRN Reason: Heartburn/Nausea Aspirin (Aspirin 81 Mg Tab.Chew) 81 mg PO DAILY [facility] Last Admin: 02/12/21 08:14 Dose: 81 mg Documented by: Carvedilol (Carvedilol 6.25 Mg Tablet) 6.25 mg PO BID [facility]; Protocol Last Admin: 02/12/21 08:15 Dose: 6.25 mg Documented by: Clopidogrel Bisulfate (Clopidogrel Bisulfate 75 Mg Tablet) 75 mg PO DAILY [facility] Last Admin: 02/12/21 08:15 Dose: 75 mg Documented by: Furosemide (Furosemide 40 Mg Tablet) 40 mg PO DAILY [facility]; Protocol Last Admin: 02/12/21 08:15 Dose: 40 mg Documented by: Hydroxyzine HCl (Hydroxyzine Hcl 25 Mg Tablet) 25 mg PO BEDTIME PRN PRN Reason: Anxiety Lisinopril (Lisinopril 5 Mg Tablet) 5 mg PO DAILY [facility]; Protocol Last Admin: 02/12/21 08:14 Dose: 5 mg Documented by: Magnesium Hydroxide (Milk Of Magnesia 30 Ml Oral.Susp) 30 ml PO DAILY PRN PRN Reason: Constipation Magnesium Oxide (Magnesium Oxide 400 Mg Tablet) 400 mg PO DAILY [facility] Last Admin: 02/12/21 08:15 Dose: 400 mg Documented by: Olanzapine (Olanzapine 2.5 Mg Tablet) 2.5 mg PO BEDTIME [facility] Last Admin: 02/11/21 19:35 Dose: 2.5 mg Documented by: Omeprazole (Omeprazole 20 Mg Capsule.Dr) 20 mg PO DAILY@0630 [facility] Last Admin: 02/12/21 06:13 Dose: 20 mg Documented by: Potassium Chloride (Potassium Chloride Er 20 Meq Tab.Er.Prt) 20 meq PO DAILY [facility] Last Admin: 02/12/21 08:15 Dose: 20 meq Documented by: Trazodone HCl (Trazodone Hcl 50 Mg Tablet) 50 mg PO BEDTIME PRN PRN Reason: Insomnia Allergies Allergies Allergy/AdvReac Type Severity Reaction Status Date / Time No Known Allergies [NKA] Allergy Mild NOT Unverified 11/23/19 14:43 APPLICABLE Mental Status Exam Mental Status Exam Narrative: Appearance: casually groomed, fair hygiene in NAD Behavior:guarded psychomotor: resting tremors on right hand Speech:clear, normal rate/rhythm/volume, spontaneous Thought process:mostly linear Thought content:paranoid delusions, worried about ppl talking about her, or anyone trying to hurt her. Mood: anxious Affect: fearful, congruent SI:denies HI:denies VH/AH: AH of ppl telling her she is being poisoned Delusions:paranoid/persecutory delusions Insight/judgment: poor x 2. Memory/cog: alert, oriented x 3. not formally tested. Assessment & Plan Assessment & Plan (1) Schizoaffective disorder, bipolar type: Status: Acute Code(s): F25.0 - Schizoaffective disorder, bipolar type Assessment and Plan: Mrs. Stephenson is a 75 year-old woman with hx of schizoaffective disorder, stable for several years on olanzapine and depakote. Pt stopped medications several months ago as she thought she did not need them anymore. Pt brought to [facility] ED via EMS after son call reporting pt increasingly more paranoia, disorganized behavior, reporting suicidal ideation with plan to OD. In the ED, pt's utox is neg. Pt denies SI but reports paranoia related to thinking neighbors are going after her. We discussed risks, benefits and alternative treatment options, pt agreed to restart olanzapine 2.5mg po qhs very hesitant about increasing dose to 5mg po qhs. Pt apparently with hx of parkinson? seen by neurology on 08/2020 Dr. French started on levo-dopa but pt reports not taking it. resting tremors on right hand noted. PLAN 1. Admit to [facility], CV, 15 minutes checks 2. Start olanzapine 2.5mg po qhs 3. Obtain collateral information 4. Aftercare planning. Reason for continued inpatient stay Substantial Risk for: inability to function
[2021-02-11] MEDS: LORazepam 0.5 MG TABLET PO (16:13)
--- NOTE | 2021-02-11 18:45 | PM.EVENT ---
Event Note Date of Service: 02/11/21 Event Note: BP 189/104, hr 88. no chest pain, no BARRY. given coreg 6.25mg night time dose early with lisinopril 2.5mg po will increase daily lisinopril from 2.5mg po to 5mg po daily on 02/12/21
[2021-02-11] MEDS: OLANZapine 2.5 MG TABLET PO (19:35)
--- NOTE | 2021-02-11 21:29 | PC.NURSE ---
Patient c/o anxiety at approximately 1615. Provider notified and Ativan 0.5 mg x1 ordered and given. Patient observed to be resting quietly following administration. At approximately 1745 patient c/o Feeling as if her heart was beating too fast . Vitals were taken. Pulse was 88, BP was 189/104. Provider notified and ordered Lisinopril 2.5 mg and coreg 6.25 to be given. Medications had good effect. BP and pulse were 148/92 and 77. Patient observed to be ambulating in dupree and stated she was feeling much better.
[2021-02-12] MEDS: Omeprazole 20 MG CAPSULE.DR PO (06:13)
[2021-02-12 08:00] VITALS: BP 141/74; PULSE 72; TEMP 36.8; O2SAT 98
[2021-02-12 08:14] VITALS: BP 141/74; PULSE 72
[2021-02-12] MEDS: lisinopriL 5 MG TABLET PO (08:14)
[2021-02-12] MEDS: Aspirin 81 MG TAB.CHEW PO (08:14)
[2021-02-12 08:15] VITALS: BP 141/74; PULSE 72
[2021-02-12] MEDS: Magnesium Oxide 400 MG TABLET PO (08:15)
[2021-02-12] MEDS: Furosemide 40 MG TABLET PO (08:15)
[2021-02-12] MEDS: Clopidogrel Bisulfate 75 MG TABLET PO (08:15)
[2021-02-12] MEDS: Potassium Chloride ER 20 MEQ TAB.ER.PRT PO (08:15)
[2021-02-12] MEDS: carvediloL 6.25 MG TABLET PO ×2 (08:15→20:13)
--- NOTE | 2021-02-12 10:04 | P.PNPSI_ITS ---
Subjective Subjective Date of Service: 02/12/21 Reason For Visit: Paranoia Subjective Notes: Conditional Voluntary Interim History: Pt ambulating with walker, appears calmer. However, pt reports she feels as if she is being poisoned. She states she does not think it is the medications. She continues to present with some paranoia about neighbors and security in unit who she thinks may be on the unit because of her. She denies SI/HI. She denies any chest pain. She reports sleeping better last night. Medication Compliance: Yes Review of Systems Review of Systems Reports feeling unwell , ?drugged up?. Yes all other systems are reviewed and are negative Constitutional: Reports no additional constitutional complaints Eyes: Reports no additional eye complaints Reports system reviewed and no additional complaints, except as documented, Reports as per HPI and Reports Normal hearing present Cardiovascular: Reports as per HPI and Reports no additional cardiovascular complaints Respiratory: Reports as per HPI and Reports no additional respiratory complaints Gastrointestinal: Reports as per HPI and Reports no additional gastrointestinal complaints Musculoskeletal: Reports as per HPI Skin/Breast: Reports as per HPI Reports as per HPI, Reports Normal hearing present, Reports behavioral changes, Reports confusion and Reports tremor(s) (slight tremor noted right hand) Psychiatric: Reports abnormal sleep pattern, Reports anxiety, Reports behavioral changes, Reports confusion, Reports difficulty concentrating and Reports paranoia Endocrine: Reports no additional endocrine complaints and Reports as per HPI Hematologic/Lymphatic: Reports no additional hematologic/lymphatic complaints and Reports as per HPI Allergic/Immunologic: Reports no additional allergic/immunologic complaints Mental Status Exam Mental Status Exam Narrative: Appearance: casually groomed, fair hygiene in NAD Behavior:guarded psychomotor: resting tremors on right hand Speech:clear, normal rate/rhythm/volume, spontaneous Thought process:mostly linear Thought content:paranoid delusions, worried about ppl talking about her, or anyone trying to hurt her. Mood: anxious Affect: fearful, congruent SI:denies HI:denies VH/AH: AH of ppl telling her she is being poisoned Delusions:paranoid/persecutory delusions Insight/judgment: poor x 2. Memory/cog: alert, oriented x 3. not formally tested. Diagnostics Vital Signs (24Hr): Vital Signs - 24 hr 02/11/21 18:00 02/11/21 18:49 02/11/21 18:52 Temperature 98.0 F Pulse Rate 88 77 77 Respiratory Rate 18 Blood Pressure 189/104 H 148/92 H 148/92 H Pulse Oximetry 99 02/11/21 19:30 02/12/21 08:00 02/12/21 08:14 Temperature 98.2 F Pulse Rate 77 72 72 Respiratory Rate Blood Pressure 148/92 H 141/74 H 141/74 H Pulse Oximetry 98 02/12/21 08:15 Temperature Pulse Rate 72 Respiratory Rate Blood Pressure 141/74 H Pulse Oximetry BMI result Body Mass Index 26.2 Labs Results: 02/09/21 16:51 02/09/21 16:51 Medications Medications Current Medications Acetaminophen (Acetaminophen 325 Mg Tablet) 650 mg PO Q6H PRN PRN Reason: Headache/Pain Mild Scale (1-3) Al Hydroxide/Mg Hydroxide (Magnesium Hydrox/Alum Hydrox 30 Ml Oral.Susp) 30 ml PO Q6H PRN PRN Reason: Heartburn/Nausea Aspirin (Aspirin 81 Mg Tab.Chew) 81 mg PO DAILY [facility] Last Admin: 02/12/21 08:14 Dose: 81 mg Documented by: Carvedilol (Carvedilol 6.25 Mg Tablet) 6.25 mg PO BID [facility]; Protocol Last Admin: 02/12/21 08:15 Dose: 6.25 mg Documented by: Clopidogrel Bisulfate (Clopidogrel Bisulfate 75 Mg Tablet) 75 mg PO DAILY [facility] Last Admin: 02/12/21 08:15 Dose: 75 mg Documented by: Furosemide (Furosemide 40 Mg Tablet) 40 mg PO DAILY [facility]; Protocol Last Admin: 02/12/21 08:15 Dose: 40 mg Documented by: Hydroxyzine HCl (Hydroxyzine Hcl 25 Mg Tablet) 25 mg PO BEDTIME PRN PRN Reason: Anxiety Lisinopril (Lisinopril 5 Mg Tablet) 5 mg PO DAILY [facility]; Protocol Last Admin: 02/12/21 08:14 Dose: 5 mg Documented by: Magnesium Hydroxide (Milk Of Magnesia 30 Ml Oral.Susp) 30 ml PO DAILY PRN PRN Reason: Constipation Magnesium Oxide (Magnesium Oxide 400 Mg Tablet) 400 mg PO DAILY [facility] Last Admin: 02/12/21 08:15 Dose: 400 mg Documented by: Olanzapine (Olanzapine 2.5 Mg Tablet) 2.5 mg PO BEDTIME [facility] Last Admin: 02/11/21 19:35 Dose: 2.5 mg Documented by: Omeprazole (Omeprazole 20 Mg Capsule.Dr) 20 mg PO DAILY@0630 [facility] Last Admin: 02/12/21 06:13 Dose: 20 mg Documented by: Potassium Chloride (Potassium Chloride Er 20 Meq Tab.Er.Prt) 20 meq PO DAILY [facility] Last Admin: 02/12/21 08:15 Dose: 20 meq Documented by: Trazodone HCl (Trazodone Hcl 50 Mg Tablet) 50 mg PO BEDTIME PRN PRN Reason: Insomnia Allergies Allergies Allergy/AdvReac Type Severity Reaction Status Date / Time No Known Allergies [NKA] Allergy Mild NOT Unverified 11/23/19 14:43 APPLICABLE Assessment & Plan Assessment & Plan (1) Schizoaffective disorder, bipolar type: Status: Acute Code(s): F25.0 - Schizoaffective disorder, bipolar type Assessment and Plan: Mrs. Stephenson is a 75 year-old woman with hx of schizoaffective disorder, stable for several years on olanzapine and depakote. Pt stopped medications several months ago as she thought she did not need them anymore. Pt brought to [facility] ED via EMS after son call reporting pt increasingly more paranoia, disorganized behavior, reporting suicidal ideation with plan to OD. In the ED, pt's utox is neg. Pt denies SI but reports paranoia related to thinking neighbors are going after her. We discussed risks, benefits and alternative treatment options, pt agreed to restart olanzapine 2.5mg po qhs very hesitant about increasing dose to 5mg po qhs. Pt apparently with hx of parkinson? seen by neurology on 08/2020 Dr. French started on levo-dopa but pt reports not taking it. resting tremors on right hand noted. PLAN 1. Admit to [facility], CV, 15 minutes checks 2. Start olanzapine 2.5mg po qhs- titrate as pt feels comfortable with. 3. Obtain collateral information 4. Aftercare planning. I spent minutes with the patient and/or on the patient floor today, greater than?50% of which was spent counseling/coordinating care. Reason for contiued inpatient stay Substantial Risk for: harm to self and inability to function
[2021-02-12 20:13] VITALS: BP 176/87; PULSE 80
[2021-02-12] MEDS: OLANZapine 2.5 MG TABLET PO (20:13)
[2021-02-12 20:19] VITALS: BP 176/87; PULSE 80; TEMP 37; O2SAT 99
[2021-02-13] VITALS (13 sets, daily range): BP systolic 161–196; BP diastolic 79–102; PULSE 70–78; RESP 16–18; TEMP 35.7–37.4; O2SAT 96–100; BMI 24.0
[2021-02-13] MEDS: Omeprazole 20 MG CAPSULE.DR PO (06:50)
[2021-02-13] MEDS: Aspirin 81 MG TAB.CHEW PO (08:12)
[2021-02-13] MEDS: lisinopriL 5 MG TABLET PO (08:12)
[2021-02-13] MEDS: Clopidogrel Bisulfate 75 MG TABLET PO (08:13)
[2021-02-13] MEDS: Magnesium Oxide 400 MG TABLET PO (08:13)
[2021-02-13] MEDS: Furosemide 40 MG TABLET PO (08:13)
[2021-02-13] MEDS: carvediloL 6.25 MG TABLET PO ×2 (08:13→19:54)
[2021-02-13] MEDS: Potassium Chloride ER 20 MEQ TAB.ER.PRT PO (08:13)
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
[2021-02-13] MEDS: Cholecalciferol (Vitamin D3) 25 MCG TABLET PO (11:31)
[2021-02-13] MEDS: risperiDONE 1 MG TABLET PO (19:54)
[2021-02-13] MEDS: LORazepam 0.5 MG TABLET PO (21:16)
--- NOTE | 2021-02-13 22:22 | ECG_ITS ---
Test Reason : Prolonged Elevated BP, Patient reporting pounding heart Blood Pressure : / mmHG Vent. Rate : 071 BPM Atrial Rate : 071 BPM P-R Int : 152 ms QRS Dur : 094 ms QT Int : 418 ms P-R-T Axes : 055 050 129 degrees QTc Int : 454 ms Normal sinus rhythm Left atrial enlargement Cannot rule out Anteroseptal infarct (cited on or before 09-FEB-2021) T wave abnormality, consider lateral ischemia Abnormal ECG When compared with ECG of 09-FEB-2021 18:05, Serial changes of evolving Anteroseptal infarct Present Referred By: Heide Mota Electronically Signed By:Joseph Post
[2021-02-13] MEDS: OLANZapine 2.5 MG TABLET PO (22:36)
--- NOTE | 2021-02-13 22:59 | P.EN_ITS ---
Event Note Date of Service: 02/14/21 Event Note: chest pain: Atypical. EKG unchanged from prior. Ordered tropon ins x2. Chest pain currently resolved. troponin 34-->30. pt has similar episode in ER with troponins in same range. Cardiology consult for further inputs/work up. Hypertension: Patient on carvedilol. Patient still has high blood pressure. Received Ativan for anxiety. Will give 1 time dose of amlodipine 5 mg.
[2021-02-13] MEDS: amLODIPine Besylate 5 MG TABLET PO (23:11)
[2021-02-13 23:50] LABS: Troponin-I High Sensitivity 34.2 ng/L (<3.5-17.0)
[2021-02-14] VITALS (8 sets, daily range): BP systolic 123–192; BP diastolic 59–100; PULSE 60–89; RESP 16–18; TEMP 36.8; O2SAT 98–99
[2021-02-14 03:22] LABS: Troponin-I High Sensitivity 30.8 ng/L (<3.5-17.0)
[2021-02-14] MEDS: Potassium Chloride ER 20 MEQ TAB.ER.PRT PO (07:44)
[2021-02-14] MEDS: Cholecalciferol (Vitamin D3) 25 MCG TABLET PO (07:44)
[2021-02-14] MEDS: Omeprazole 20 MG CAPSULE.DR PO (07:44)
[2021-02-14] MEDS: carvediloL 6.25 MG TABLET PO ×2 (07:45→13:01)
[2021-02-14] MEDS: Furosemide 40 MG TABLET PO (07:46)
[2021-02-14] MEDS: Aspirin 81 MG TAB.CHEW PO (07:46)
[2021-02-14] MEDS: Clopidogrel Bisulfate 75 MG TABLET PO (07:47)
[2021-02-14] MEDS: Magnesium Oxide 400 MG TABLET PO (07:47)
[2021-02-14] MEDS: lisinopriL 5 MG TABLET PO (07:48)
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
[2021-02-14] MEDS: carvediloL 12.5 MG TABLET PO (20:00)
[2021-02-14] MEDS: OLANZapine 2.5 MG TABLET PO (20:02)
[2021-02-14] MEDS: risperiDONE 1 MG TABLET PO (20:02)
[2021-02-15 06:00] VITALS: BP 184/81; PULSE 86; RESP 16; TEMP 36.9; O2SAT 96
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
[2021-02-15 09:43] VITALS: BP 184/81; PULSE 86
[2021-02-15] MEDS: lisinopriL 5 MG TABLET PO (09:43)
[2021-02-15 09:44] VITALS: BP 184/81
[2021-02-15] MEDS: carvediloL 12.5 MG TABLET PO ×2 (09:44→20:36)
[2021-02-15] MEDS: Potassium Chloride ER 20 MEQ TAB.ER.PRT PO (09:44)
[2021-02-15] MEDS: Furosemide 40 MG TABLET PO (09:44)
[2021-02-15] MEDS: Magnesium Oxide 400 MG TABLET PO (09:44)
[2021-02-15] MEDS: Clopidogrel Bisulfate 75 MG TABLET PO (09:45)
[2021-02-15] MEDS: Aspirin 81 MG TAB.CHEW PO (09:45)
[2021-02-15] MEDS: Cholecalciferol (Vitamin D3) 25 MCG TABLET PO (09:45)
--- NOTE | 2021-02-15 11:00 | CA_ITS ---
Transthoracic Echocardiogram Patient (Last, First, Middle): Emily Stephenson L Gender: Female Date of : 1945 Age: 75 Procedure Date: 02/15/2021 Procedure Type: Transthoracic Echocardiogram Location: [facility]ERIATRIC PSYCH Height: 157.48 cm Weight: 59.42 kg BSA: 1.60 m2 Heart Rate: bpm BP: 168 / 68 mmHg Trimmer Climber: Referring MD: Jospeh Post MD Symptoms: ECG changes, assess RWMA Study Quality: Fair ECG Rhythm: Sinus Conclusions: - Left Ventricle - Normal left ventricular cavity size. There is severely increased left ventricular wall thickness. The left ventricular systolic function is moderately decreased. - E/E prime ratio is between 8 and 15 consistent with indeterminate filling pressures. - The apical inferior and mid inferior segments are hypokinetic. - The apex, apical anterior, apical septum, mid inferoseptal, and mid anteroseptal segments are dyskinetic. - There is mildly decreased right ventricular systolic function. Findings Left Ventricle Normal left ventricular cavity size. There is severely increased left ventricular wall thickness. The left ventricular systolic function is moderately decreased. The visually estimated ejection fraction is between 30 35%. There is evidence of regional wall motion abnormalities. Abnormal diastolic function is noted. Spectral Doppler is indicative of an impaired relaxation filling pattern. E/E prime ratio is between 8 and 15 consistent with indeterminate filling pressures. Wall Motion Rest Echo Findings The apical inferior and mid inferior segments are hypokinetic. The apex, apical anterior, apical septum, mid inferoseptal, and mid anteroseptal segments are dyskinetic. Right Ventricle Normal right ventricular cavity size. There is mildly decreased right ventricular systolic function. Atria The left atrium is mildly dilated. Aortic Valve There is a normal trileaflet aortic valve. There is mild calcification of the aortic valve. There is no aortic valve stenosis. There is no aortic valve regurgitation. Mitral Valve There is moderate mitral annular calcification. There is no mitral valve regurgitation. There is no mitral valve stenosis. Pulmonic Valve The pulmonic valve is likely normal. There is no thickening of the pulmonic valve. Tricuspid Valve Normal tricuspid valve structure and function. There is trace tricuspid valve regurgitation. Tricuspid regurgitation envelope is inadequate for calculation of right ventricular systolic pressure. Normal right atrial pressure. Great Vessels All visible segments of the aorta are normal in size. The visualized portions of the pulmonary artery and branches are normal. Venous The inferior vena cava is normal in size and collapses greater than 50% with inspiration. Pericardium/Pleural There is no evidence of pericardial effusion. Prior Study Comparison No significant change compared to prior study. Compared with study performed at [facility] in September 2020 Measurements 2D Linear Measurements IVSd: 1.43 0.6-0.9/0.6-1.0 cm LVIDd: 3.46 3.9-5.3/4.2-5.9 cm LVIDd Index: 2.16 2.4-3.2/2.2-3.1 cm/m2 LVIDs: 2.16 2.0-3.6 cm LVPWd: 1.37 0.7-1.1 cm Ao Root: 2.70 2.1-3.5 cm LA Diam: 3.60 2.7-3.8/3.0-4.0 cm LAIDs Index: 2.25 1.5-2.3 cm/m2 LV Mass: 212.05 67-162/88-224 g LV Mass Index: 132.53 43-95/49-115 g/m2 LVOT Diam: 2.00 3.0+(-)1.3 cm 2D Systolic Function EF 4C: 35.50 >55% EF 2C: 36.10 >55% EF BiP: 34.40 >55% Mitral Valve MV Pk E: 0.57 MV PK A: 1.22 MV Decel Time: 168.00 E/A: 0.50 E'Lateral: 6.53 E'Medial: 3.59 E/E' Med: 15.90 E/E' Lat: 8.70 PHT: 49.00 MVA PHT: 4.49 Decel Gibson: 3.39 Aortic Valve AoV Pk Mohsen: 1.39 AoV Mn Mohsen: 0.91 AoV VTI: 0.24 AoV Pk Grad: 8.00 Aov Mn Grad: 4.00 EDVIN Cont.VTI: 2.05 LVOT LVOT Pk Mohsen: 0.84 LVOT Mn Mohsen: 0.54 LVOT VTI: 0.16 LVOT Pk Grad: 3.00 LVOT Mn Grad: 1.00 LVOT Diam: 2.00 LVOT Area: 3.14 Diastolic Function MV Pk E: 0.57 MV Pk A: 1.22 E/A: 0.50 E'Medial: 3.59 E/E' Med: 15.90 E' Laterial: 6.53 E/E' Lat: 8.70 Right Ventricle TAPSE (mm): 13.00 Tricuspid Valve TR Pk Mohsen: 1.83 TR Pk Grad: 13.00 Great Vessels Aorta Ao Root-2D: 2.70 2.0-3.7 cm Ao Asc: 3.10 2.1-3.4 cm Pulmonary Valve PV Pk Mohsen: 1.10 Peak PV Grad: 5.00 Updated in Other Vendor System with Status of Final Joseph Post MD electronically signed on 02/15/2021 9:49:50 PM with status of Final
[2021-02-15 20:36] VITALS: BP 158/83; PULSE 79
[2021-02-15] MEDS: OLANZapine 2.5 MG TABLET PO (20:37)
[2021-02-15] MEDS: risperiDONE 1 MG TABLET PO (20:37)
[2021-02-15 21:09] VITALS: BP 158/83; PULSE 79; RESP 20; TEMP 36.8; O2SAT 97
[2021-02-16 06:00] VITALS: BP 143/66; PULSE 77; RESP 16; TEMP 36.6; O2SAT 98
[2021-02-16 08:48] VITALS: BP 143/66; PULSE 77
[2021-02-16] MEDS: carvediloL 12.5 MG TABLET PO ×2 (08:48→20:28)
[2021-02-16] MEDS: Aspirin 81 MG TAB.CHEW PO (08:48)
[2021-02-16 08:49] VITALS: BP 143/66; PULSE 77
[2021-02-16] MEDS: lisinopriL 5 MG TABLET PO (08:49)
[2021-02-16] MEDS: Clopidogrel Bisulfate 75 MG TABLET PO (08:49)
[2021-02-16] MEDS: Potassium Chloride ER 20 MEQ TAB.ER.PRT PO (08:49)
[2021-02-16] MEDS: Furosemide 40 MG TABLET PO (08:49)
[2021-02-16] MEDS: Cholecalciferol (Vitamin D3) 25 MCG TABLET PO (08:49)
[2021-02-16] MEDS: Magnesium Oxide 400 MG TABLET PO (08:49)
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
[2021-02-16] MEDS: amLODIPine Besylate 2.5 MG TABLET PO (11:12)
[2021-02-16 18:00] VITALS: BP 139/65; PULSE 82; RESP 18; TEMP 36.6; O2SAT 97
[2021-02-16 20:28] VITALS: BP 139/65; PULSE 82
[2021-02-16] MEDS: risperiDONE 1 MG TABLET PO (20:29)
[2021-02-17] VITALS (9 sets, daily range): BP systolic 152–195; BP diastolic 74–97; PULSE 81–91; RESP 18; TEMP 36.3–37.1; O2SAT 94–100
[2021-02-17] MEDS: Potassium Chloride ER 20 MEQ TAB.ER.PRT PO (08:47)
[2021-02-17] MEDS: Cholecalciferol (Vitamin D3) 25 MCG TABLET PO (08:47)
[2021-02-17] MEDS: Aspirin 81 MG TAB.CHEW PO (08:48)
[2021-02-17] MEDS: Furosemide 40 MG TABLET PO (08:48)
[2021-02-17] MEDS: Magnesium Oxide 400 MG TABLET PO (08:48)
[2021-02-17] MEDS: lisinopriL 5 MG TABLET PO ×2 (08:48→20:42)
[2021-02-17] MEDS: amLODIPine Besylate 2.5 MG TABLET PO ×2 (08:48→18:30)
[2021-02-17] MEDS: Clopidogrel Bisulfate 75 MG TABLET PO (08:49)
[2021-02-17] MEDS: carvediloL 12.5 MG TABLET PO (08:49)
[2021-02-17] MEDS: LORazepam 0.5 MG TABLET PO (15:46)
--- NOTE | 2021-02-17 16:35 | HO.PSYCHPN ---
Subjective Subjective Date of Service: 02/17/21 Reason For Visit: Paranoia, ECG changes Subjective Notes: Conditional Voluntary Interim History: The nursing staff reported that she has participated very limited to groups she remains paranoid. The patient reported Ativan was too sedated and she has tried to avoid it. Also Norvasc was started. On interview, the patient reports mild sedation but she remains paranoid. She stated that in the past she is to take Zyprexa. Her previous prescriber start her Risperdal and so far she admitted mild sedation in the morning Mental Status Exam Mental Status Exam Patient Appearance: Well Grooomed Patient Orientation: Person and Situation Level of Consciousness: Awake Patient Behavior: Guarded and Suspicious Mood Description: Withdrawn Affect Description: Constricted Ability to Follow Directions: Fair Speech Pattern: Clear Delusions: Paranoid Ideation Thought Process: Distracted and Evasive Thought Content: positive for Circumstantial and positive for Thought Blocking Judgement: Fair Diagnostics Vital Signs (24Hr): Vital Signs - 24 hr 02/16/21 18:00 02/16/21 20:28 02/17/21 06:00 Temperature 97.9 F 97.4 F Pulse Rate 82 82 85 Respiratory Rate 18 Blood Pressure 139/65 139/65 154/74 H Pulse Oximetry 97 94 02/17/21 08:48 02/17/21 08:49 02/17/21 15:42 Temperature Pulse Rate 85 85 81 Respiratory Rate 18 Blood Pressure 154/74 H 154/74 H 182/83 H Pulse Oximetry 97 BMI result Body Mass Index 24.0 Labs Results: 02/09/21 16:51 02/09/21 16:51 Medications Medications Current Medications Acetaminophen (Acetaminophen 325 Mg Tablet) 650 mg PO Q6H PRN PRN Reason: Headache/Pain Mild Scale (1-3) Al Hydroxide/Mg Hydroxide (Magnesium Hydrox/Alum Hydrox 30 Ml Oral.Susp) 30 ml PO Q6H PRN PRN Reason: Heartburn/Nausea Amlodipine Besylate (Amlodipine Besylate 2.5 Mg Tablet) 2.5 mg PO DAILY [facility]; Protocol Last Admin: 02/17/21 08:48 Dose: 2.5 mg Documented by: Aspirin (Aspirin 81 Mg Tab.Chew) 81 mg PO DAILY [facility] Last Admin: 02/17/21 08:48 Dose: 81 mg Documented by: Carvedilol (Carvedilol 12.5 Mg Tablet) 12.5 mg PO BID [facility]; Protocol Last Admin: 02/17/21 08:49 Dose: 12.5 mg Documented by: Clopidogrel Bisulfate (Clopidogrel Bisulfate 75 Mg Tablet) 75 mg PO DAILY [facility] Last Admin: 02/17/21 08:49 Dose: 75 mg Documented by: Furosemide (Furosemide 40 Mg Tablet) 40 mg PO DAILY [facility]; Protocol Last Admin: 02/17/21 08:48 Dose: 40 mg Documented by: Hydroxyzine HCl (Hydroxyzine Hcl 25 Mg Tablet) 25 mg PO BEDTIME PRN PRN Reason: Anxiety Lisinopril (Lisinopril 5 Mg Tablet) 5 mg PO DAILY [facility]; Protocol Last Admin: 02/17/21 08:48 Dose: 5 mg Documented by: Lorazepam (Lorazepam 0.5 Mg Tablet) 0.5 mg PO Q8H PRN PRN Reason: Anxiety Last Admin: 02/17/21 15:46 Dose: 0.5 mg Documented by: Magnesium Hydroxide (Milk Of Magnesia 30 Ml Oral.Susp) 30 ml PO DAILY PRN PRN Reason: Constipation Magnesium Oxide (Magnesium Oxide 400 Mg Tablet) 400 mg PO DAILY [facility] Last Admin: 02/17/21 08:48 Dose: 400 mg Documented by: Omeprazole (Omeprazole 20 Mg Capsule.Dr) 20 mg PO DAILY@0630 [facility] Last Admin: 02/17/21 06:03 Dose: Not Given Documented by: Potassium Chloride (Potassium Chloride Er 20 Meq Tab.Er.Prt) 20 meq PO DAILY [facility] Last Admin: 02/17/21 08:47 Dose: 20 meq Documented by: Risperidone (Risperidone 1 Mg Tablet) 1 mg PO BEDTIME [facility] Last Admin: 02/16/21 20:29 Dose: 1 mg Documented by: Trazodone HCl (Trazodone Hcl 50 Mg Tablet) 50 mg PO BEDTIME PRN PRN Reason: Insomnia Vitamin D (Cholecalciferol (Vitamin D3) 25 Mcg Tablet) 25 mcg PO DAILY [facility] Last Admin: 02/17/21 08:47 Dose: 25 mcg Documented by: Allergies Allergies Allergy/AdvReac Type Severity Reaction Status Date / Time No Known Allergies [NKA] Allergy Mild NOT Unverified 11/23/19 14:43 APPLICABLE Assessment & Plan Assessment & Plan (1) Coronary artery disease: Status: Acute Code(s): I25.10 - Atherosclerotic heart disease of [place] coronary artery without angina pectoris (2) S/P CABG (coronary artery bypass graft): Status: Acute Code(s): Z95.1 - Presence of aortocoronary bypass graft (3) Essential hypertension: Status: Acute Code(s): I10 - Essential (primary) hypertension Assessment and Plan: The patient is a 75-year-old female with a past history of schizoaffective disorder depressed type, admitted for exacerbation of paranoia and psychosis in the context of noncompliance. The patient has several medical comorbidities such as CAD with a previous surgeries and stents. She was medically cleared by Cardiology sings her EKG did not show other abnormalities. Plan 1. Increase Risperdal up to 1.5 mg p.o. q.h.s.. 2. Continue rest the same. 3. Family meeting for tomorrow at 11:00 o'clock. I spent minutes with the patient and/or on the patient floor today, greater than?50% of which was spent counseling/coordinating care. Reason for contiued inpatient stay Substantial Risk for: inability to function, rapid decompensation and med/psych decompensation
--- NOTE | 2021-02-17 17:41 | P.PNCA_ITS ---
Subjective Subjective Date of Service: 02/17/21 Principal diagnosis: Cardiomyopathy Interval history: Patient presents with no symptoms. Has been started on lisinopril and carvedilol was increased. Questioning all medication changes. Noted to be hypertensive. Patient says she has not tolerated several medications up last including valsartan and losartan. She has dizziness. Noted to be hypertensive currently. Review of Systems Review of Systems Yes all other systems are reviewed and are negative Physical Exam Vital Signs: Last Vital Signs Temp 97.4 F 02/17/21 06:00 Pulse 91 02/17/21 16:56 Resp 18 02/17/21 15:42 BP 195/97 H 02/17/21 16:56 Pulse Ox 100 02/17/21 16:56 BMI result Body Mass Index 24.0 Const General: cooperative and comfortable Nutritional Appearance: average body habitus Orientation/consciousness: patient oriented x3 Neck Neck: Yes trachea midline, Yes supple and Yes no JVD Resp Effort & Inspection: normal respiratory effort Auscultation: clear to auscultation bilaterally Cardio Jugular venous distension: no JVD Rate: regular rate Rhythm: regular rhythm Heart sounds: S1 normal heart sound present, S2 normal heart sound present, no click, no gallops and no murmurs Neuro General: patient oriented x3 and no focal motor deficits Extrem General: Yes no clubbing, cyanosis or edema Objective Labs and Meds Result diagrams: 02/09/21 16:51 02/09/21 16:51 Progress Note: A&P Assessment and plan (1) Ischemic cardiomyopathy: Status: Acute Assessment and Plan: Moderately severe LV systolic dysfunction secondary to ischemic cardiomyopathy. Patient is lack of understanding of her underlying cardiac issues at current time. Not in heart failure. Importance of good medical therapy to reduce her future outcome was discussed. Patient still seems to not completely understand. Discussed with her and she says she will be more amenable to suggestion. Increase carvedilol to 25 mg b.i.d.. Increase lisinopril to 5 mg b.i.d.. Continue Norvasc therapy. Good control blood pressure is very important given that she has significant left ventricular hypertrophy and underlying severe LV systolic dysfunction. Obtain BMP tomorrow. Will continue to follow with you. (2) Coronary artery disease: Status: Acute Assessment and Plan: CAD stable without any acute symptoms at current time. Continue aspirin therapy. Continue aggressive control blood pressure is above. Continue statin therapy with target goal LDL less than 70 mg/dL on long run. Fall Risk Details Current Medications: Current Medications Acetaminophen (Acetaminophen 325 Mg Tablet) 650 mg PO Q6H PRN PRN Reason: Headache/Pain Mild Scale (1-3) Al Hydroxide/Mg Hydroxide (Magnesium Hydrox/Alum Hydrox 30 Ml Oral.Susp) 30 ml PO Q6H PRN PRN Reason: Heartburn/Nausea Amlodipine Besylate (Amlodipine Besylate 2.5 Mg Tablet) 2.5 mg PO DAILY [facility]; Protocol Last Admin: 02/17/21 08:48 Dose: 2.5 mg Documented by: Aspirin (Aspirin 81 Mg Tab.Chew) 81 mg PO DAILY [facility] Last Admin: 02/17/21 08:48 Dose: 81 mg Documented by: Carvedilol (Carvedilol 12.5 Mg Tablet) 25 mg PO BID [facility]; Protocol Clopidogrel Bisulfate (Clopidogrel Bisulfate 75 Mg Tablet) 75 mg PO DAILY [facility] Last Admin: 02/17/21 08:49 Dose: 75 mg Documented by: Furosemide (Furosemide 40 Mg Tablet) 40 mg PO DAILY [facility]; Protocol Last Admin: 02/17/21 08:48 Dose: 40 mg Documented by: Hydroxyzine HCl (Hydroxyzine Hcl 25 Mg Tablet) 25 mg PO BEDTIME PRN PRN Reason: Anxiety Lisinopril (Lisinopril 5 Mg Tablet) 5 mg PO BID [facility]; Protocol Lorazepam (Lorazepam 0.5 Mg Tablet) 0.5 mg PO Q8H PRN PRN Reason: Anxiety Last Admin: 02/17/21 15:46 Dose: 0.5 mg Documented by: Magnesium Hydroxide (Milk Of Magnesia 30 Ml Oral.Susp) 30 ml PO DAILY PRN PRN Reason: Constipation Magnesium Oxide (Magnesium Oxide 400 Mg Tablet) 400 mg PO DAILY [facility] Last Admin: 02/17/21 08:48 Dose: 400 mg Documented by: Omeprazole (Omeprazole 20 Mg Capsule.Dr) 20 mg PO DAILY@0630 [facility] Last Admin: 02/17/21 06:03 Dose: Not Given Documented by: Potassium Chloride (Potassium Chloride Er 20 Meq Tab.Er.Prt) 20 meq PO DAILY [facility] Last Admin: 02/17/21 08:47 Dose: 20 meq Documented by: Risperidone (Risperidone 0.5 Mg Tablet) 1.5 mg PO BEDTIME [facility] Trazodone HCl (Trazodone Hcl 50 Mg Tablet) 50 mg PO BEDTIME PRN PRN Reason: Insomnia Vitamin D (Cholecalciferol (Vitamin D3) 25 Mcg Tablet) 25 mcg PO DAILY [facility] Last Admin: 02/17/21 08:47 Dose: 25 mcg Documented by: Time Spent With Patient Time: Total time spent is greater than 50% in coordination of care (as documented) at patient's floor/unit and/or counseling patient: Time with patient: 25 - 35 minutes Procedures Date of Service Date of Service: 02/17/21
[2021-02-17 18:34] LABS: Anion Gap 17 (12-20); Blood Urea Nitrogen 21 mg/dL (9-16); Calcium 10.5 mg/dL (8.4-10.2); Carbon Dioxide 28 mmol/L (22-29); Chloride 96 mmol/L (96-108); Creatinine Clr Calc Pharmacy 46.8; Estimated Glomerular Filt Rate > 60; Glucose Random 170 mg/dL (60-115); Sodium 137 mmol/L (135-145)
--- NOTE | 2021-02-17 18:39 | PM.EVENT ---
Event Note Date of Service: 02/18/21 Event Note: staff certified nurse midwife informed T/W that pt's BP was elevated 195/97mmHg at 16:56, this was redone and came down to 178/86 at 17:30. Consulted with hospitalist and norvasc was increased to 5 mg QD with one time dose of 2.5 mg administered yesterday evening at 18:20 with pt's BP decreasing to 152/75mmHg at 20:02. Pt did not complain of chest pain or palpitations. Other vitals wnl. Pt has hx of persistent elevation in BP and has been followed by cardiology during course of psych admission.
[2021-02-17] MEDS: carvediloL 12.5 MG TABLET 25 MG PO (20:35)
[2021-02-17] MEDS: risperiDONE 0.5 MG TABLET 1.5 MG PO (20:37)
[2021-02-18] VITALS (7 sets, daily range): BP systolic 118–178; BP diastolic 73–78; PULSE 77–78; RESP 16–18; TEMP 36.4–36.9; O2SAT 98–99
[2021-02-18] MEDS: amLODIPine Besylate 5 MG TABLET PO (08:11)
[2021-02-18] MEDS: lisinopriL 5 MG TABLET PO (08:13)
[2021-02-18] MEDS: Cholecalciferol (Vitamin D3) 25 MCG TABLET PO (08:14)
[2021-02-18] MEDS: Potassium Chloride ER 20 MEQ TAB.ER.PRT PO (08:14)
[2021-02-18] MEDS: Furosemide 40 MG TABLET PO (08:15)
[2021-02-18] MEDS: Clopidogrel Bisulfate 75 MG TABLET PO (08:15)
[2021-02-18] MEDS: Magnesium Oxide 400 MG TABLET PO (08:15)
[2021-02-18] MEDS: carvediloL 12.5 MG TABLET 25 MG PO ×2 (08:17→21:17)
[2021-02-18] MEDS: Aspirin 81 MG TAB.CHEW PO (08:19)
--- NOTE | 2021-02-18 12:19 | P.PNCA_ITS ---
Subjective Subjective Date of Service: 02/18/21 Principal diagnosis: Cardiomyopathy Interval history: Patient denies any chest pain or shortness of breath orthopnea, PND. Blood pressure remains significantly elevated despite adjustments of her medications. She remains very emotional, thought that she was missing her family meeting today. She has been emotional about her family meeting. Review of Systems Review of Systems Yes all other systems are reviewed and are negative Physical Exam Vital Signs: Last Vital Signs Temp 98.4 F 02/18/21 06:00 Pulse 77 02/18/21 08:17 Resp 16 02/18/21 06:00 BP 178/78 H 02/18/21 08:17 Pulse Ox 98 02/18/21 06:00 BMI result Body Mass Index 24.0 Const General: cooperative, comfortable, no acute distress, alert and awake Nutritional Appearance: average body habitus Orientation/consciousness: patient oriented x3 Limitations: no limitations Neck Neck: Yes trachea midline, Yes supple and Yes no JVD Resp Effort & Inspection: normal respiratory effort Auscultation: clear to auscultation bilaterally Cardio Jugular venous distension: no JVD Palpation: abnormal PMI Rate: regular rate Rhythm: regular rhythm Heart sounds: S1 normal heart sound present, S2 normal heart sound present, no click, no gallops, no murmurs and no rubs Neuro General: patient oriented x3 and no focal motor deficits Extrem General: Yes no clubbing, cyanosis or edema Objective Labs and Meds Result diagrams: 02/09/21 16:51 02/17/21 18:10 Lab results: Laboratory Results - last 24 hr 02/17/21 18:10 Sodium 137 Potassium 4.0 Chloride 96 Carbon Dioxide 28 Anion Gap 17 BUN 21 H Creatinine 0.82 Estim Creat Clear Calc 46.8 Estimated GFR > 60 Random Glucose 170 H Calcium 10.5 H Progress Note: A&P Assessment and plan (1) Ischemic cardiomyopathy: Status: Acute Assessment and Plan: Moderately severe LV systolic dysfunction with ischemic cardiomyopathy. Patient with no signs or symptoms of heart failure. Patient's blood pressure remains uncontrolled, unclear as to why her blood pressure keeps rising despite increasing therapy. Question related to emotional stress. Will further increase lisinopril to 10 mg b.i.d.. Continue carvedilol and amlodipine. (2) Coronary artery disease: Status: Acute Assessment and Plan: CAD stable with no symptoms. Continue antiplatelet therapy. Continue high- intensity statin therapy. Continue aggressive control of blood pressure. Goals of therapy were discussed with her in details Fall Risk Details Current Medications: Current Medications Acetaminophen (Acetaminophen 325 Mg Tablet) 650 mg PO Q6H PRN PRN Reason: Headache/Pain Mild Scale (1-3) Al Hydroxide/Mg Hydroxide (Magnesium Hydrox/Alum Hydrox 30 Ml Oral.Susp) 30 ml PO Q6H PRN PRN Reason: Heartburn/Nausea Amlodipine Besylate (Amlodipine Besylate 5 Mg Tablet) 5 mg PO DAILY [facility]; Protocol Last Admin: 02/18/21 08:11 Dose: 5 mg Documented by: Aspirin (Aspirin 81 Mg Tab.Chew) 81 mg PO DAILY [facility] Last Admin: 02/18/21 08:19 Dose: 81 mg Documented by: Carvedilol (Carvedilol 12.5 Mg Tablet) 25 mg PO BID [facility]; Protocol Last Admin: 02/18/21 08:17 Dose: 25 mg Documented by: Clopidogrel Bisulfate (Clopidogrel Bisulfate 75 Mg Tablet) 75 mg PO DAILY [facility] Last Admin: 02/18/21 08:15 Dose: 75 mg Documented by: Furosemide (Furosemide 40 Mg Tablet) 40 mg PO DAILY [facility]; Protocol Last Admin: 02/18/21 08:15 Dose: 40 mg Documented by: Hydroxyzine HCl (Hydroxyzine Hcl 25 Mg Tablet) 25 mg PO BEDTIME PRN PRN Reason: Anxiety Lisinopril (Lisinopril 5 Mg Tablet) 5 mg PO BID [facility]; Protocol Last Admin: 02/18/21 08:13 Dose: 5 mg Documented by: Lorazepam (Lorazepam 0.5 Mg Tablet) 0.5 mg PO Q8H PRN PRN Reason: Anxiety Last Admin: 02/17/21 15:46 Dose: 0.5 mg Documented by: Magnesium Hydroxide (Milk Of Magnesia 30 Ml Oral.Susp) 30 ml PO DAILY PRN PRN Reason: Constipation Magnesium Oxide (Magnesium Oxide 400 Mg Tablet) 400 mg PO DAILY [facility] Last Admin: 02/18/21 08:15 Dose: 400 mg Documented by: Omeprazole (Omeprazole 20 Mg Capsule.Dr) 20 mg PO DAILY@0630 [facility] Last Admin: 02/18/21 06:11 Dose: Not Given Documented by: Potassium Chloride (Potassium Chloride Er 20 Meq Tab.Er.Prt) 20 meq PO DAILY [facility] Last Admin: 02/18/21 08:14 Dose: 20 meq Documented by: Risperidone (Risperidone 0.5 Mg Tablet) 1.5 mg PO BEDTIME [facility] Last Admin: 02/17/21 20:37 Dose: 1.5 mg Documented by: Trazodone HCl (Trazodone Hcl 50 Mg Tablet) 50 mg PO BEDTIME PRN PRN Reason: Insomnia Vitamin D (Cholecalciferol (Vitamin D3) 25 Mcg Tablet) 25 mcg PO DAILY [facility] Last Admin: 02/18/21 08:14 Dose: 25 mcg Documented by: Time Spent With Patient Time: Total time spent is greater than 50% in coordination of care (as documented) at patient's floor/unit and/or counseling patient: Time with patient: 15 - 24 minutes Procedures Date of Service Date of Service: 02/18/21
--- NOTE | 2021-02-18 15:10 | HO.PSYCHPN ---
Subjective Subjective Date of Service: 02/18/21 Reason For Visit: Paranoia, ECG changes Subjective Notes: Conditional Voluntary Interim History: The nursing staff reported that the patient remains seclusive mostly in her room. Minimal participation in groups. Today we had a family meeting with her son and he reported that the patient calls and we spurs over the phone is stating paranoid delusions. On interview, the patient reported that she is doing with the current medications and she was advocating for an early discharge. She denies side effects with Risperdal 1.5 mg p.o. q.h.s. at this moment. OT did a [place] test and she scored 20/30. We will start Aricept tonight Mental Status Exam Mental Status Exam Patient Appearance: Well Grooomed Patient Orientation: Person Level of Consciousness: Awake Patient Behavior: Cooperative Mood Description: Depressed Affect Description: Constricted Patient Cognition Impaired: Yes Ability to Follow Directions: Good Speech Pattern: Clear Memory Description: Immediate Impaired Hallucinations: Auditory Delusions: Paranoid Ideation Thought Process: Distracted Thought Content: positive for Circumstantial and positive for Poverty of Content Judgement: Fair Diagnostics Vital Signs (24Hr): Vital Signs - 24 hr 02/17/21 15:42 02/17/21 16:56 02/17/21 18:30 Temperature Pulse Rate 81 91 89 Respiratory Rate 18 Blood Pressure 182/83 H 195/97 H 178/86 H Pulse Oximetry 97 100 02/17/21 20:02 02/17/21 20:35 02/17/21 20:42 Temperature 98.8 F Pulse Rate 85 85 85 Respiratory Rate 18 Blood Pressure 152/75 H 152/75 H 152/75 H Pulse Oximetry 98 02/18/21 06:00 02/18/21 08:11 02/18/21 08:13 Temperature 98.4 F Pulse Rate 77 77 77 Respiratory Rate 16 Blood Pressure 178/78 H 178/78 H 178/78 H Pulse Oximetry 98 02/18/21 08:17 Temperature Pulse Rate 77 Respiratory Rate Blood Pressure 178/78 H Pulse Oximetry BMI result Body Mass Index 24.0 Labs Results: 02/09/21 16:51 02/17/21 18:10 Labs: Laboratory Results - last 48 hr 02/17/21 18:10 Sodium 137 Potassium 4.0 Chloride 96 Carbon Dioxide 28 Anion Gap 17 BUN 21 H Creatinine 0.82 Estim Creat Clear Calc 46.8 Estimated GFR > 60 Random Glucose 170 H Calcium 10.5 H Medications Medications Current Medications Acetaminophen (Acetaminophen 325 Mg Tablet) 650 mg PO Q6H PRN PRN Reason: Headache/Pain Mild Scale (1-3) Al Hydroxide/Mg Hydroxide (Magnesium Hydrox/Alum Hydrox 30 Ml Oral.Susp) 30 ml PO Q6H PRN PRN Reason: Heartburn/Nausea Amlodipine Besylate (Amlodipine Besylate 5 Mg Tablet) 5 mg PO DAILY [facility]; Protocol Last Admin: 02/18/21 08:11 Dose: 5 mg Documented by: Aspirin (Aspirin 81 Mg Tab.Chew) 81 mg PO DAILY [facility] Last Admin: 02/18/21 08:19 Dose: 81 mg Documented by: Carvedilol (Carvedilol 12.5 Mg Tablet) 25 mg PO BID [facility]; Protocol Last Admin: 02/18/21 08:17 Dose: 25 mg Documented by: Clopidogrel Bisulfate (Clopidogrel Bisulfate 75 Mg Tablet) 75 mg PO DAILY [facility] Last Admin: 02/18/21 08:15 Dose: 75 mg Documented by: Furosemide (Furosemide 40 Mg Tablet) 40 mg PO DAILY [facility]; Protocol Last Admin: 02/18/21 08:15 Dose: 40 mg Documented by: Hydroxyzine HCl (Hydroxyzine Hcl 25 Mg Tablet) 25 mg PO BEDTIME PRN PRN Reason: Anxiety Lisinopril (Lisinopril 5 Mg Tablet) 5 mg PO BID [facility]; Protocol Last Admin: 02/18/21 08:13 Dose: 5 mg Documented by: Lorazepam (Lorazepam 0.5 Mg Tablet) 0.5 mg PO Q8H PRN PRN Reason: Anxiety Last Admin: 02/17/21 15:46 Dose: 0.5 mg Documented by: Magnesium Hydroxide (Milk Of Magnesia 30 Ml Oral.Susp) 30 ml PO DAILY PRN PRN Reason: Constipation Magnesium Oxide (Magnesium Oxide 400 Mg Tablet) 400 mg PO DAILY [facility] Last Admin: 02/18/21 08:15 Dose: 400 mg Documented by: Omeprazole (Omeprazole 20 Mg Capsule.Dr) 20 mg PO DAILY@0630 [facility] Last Admin: 02/18/21 06:11 Dose: Not Given Documented by: Potassium Chloride (Potassium Chloride Er 20 Meq Tab.Er.Prt) 20 meq PO DAILY [facility] Last Admin: 02/18/21 08:14 Dose: 20 meq Documented by: Risperidone (Risperidone 0.5 Mg Tablet) 1.5 mg PO BEDTIME [facility] Last Admin: 02/17/21 20:37 Dose: 1.5 mg Documented by: Trazodone HCl (Trazodone Hcl 50 Mg Tablet) 50 mg PO BEDTIME PRN PRN Reason: Insomnia Vitamin D (Cholecalciferol (Vitamin D3) 25 Mcg Tablet) 25 mcg PO DAILY [facility] Last Admin: 02/18/21 08:14 Dose: 25 mcg Documented by: Allergies Allergies Allergy/AdvReac Type Severity Reaction Status Date / Time No Known Allergies [NKA] Allergy Mild NOT Unverified 11/23/19 14:43 APPLICABLE Assessment & Plan Assessment & Plan (1) Ischemic cardiomyopathy: Status: Acute Code(s): I25.5 - Ischemic cardiomyopathy Assessment and Plan: the patient is a 75-year-old female, with a long history of schizoaffective disorder depressed type, admitted for exacerbation of psychotic symptoms in the context of change of antipsychotics. Plan 1. Continue Risperdal 1.5 mg p.o. q.h.s.. 2. Continue with recommendations of Cardiology regarding her blood pressure medication. 3. Start Aricept 5 mg p.o. q.h.s. to target dementia (2) Coronary artery disease: Status: Acute Code(s): I25.10 - Atherosclerotic heart disease of [place] coronary artery without angina pectoris Assessment and Plan: CAD stable with no symptoms. Continue antiplatelet therapy. Continue high-intensity statin therapy. Continue aggressive control of blood pressure. Goals of therapy were discussed with her in details I spent minutes with the patient and/or on the patient floor today, greater than?50% of which was spent counseling/coordinating care. Reason for contiued inpatient stay Substantial Risk for: inability to function, rapid decompensation and med/psych decompensation
[2021-02-18] MEDS: lisinopriL 10 MG TABLET PO (21:18)
[2021-02-18] MEDS: Donepezil HCl 5 MG TABLET PO (21:18)
[2021-02-18] MEDS: risperiDONE 0.5 MG TABLET 1.5 MG PO (21:19)
[2021-02-19] VITALS (7 sets, daily range): BP systolic 147–155; BP diastolic 69–78; PULSE 73–75; RESP 16–17; TEMP 36.6–37.1; O2SAT 96–97
[2021-02-19] MEDS: carvediloL 12.5 MG TABLET 25 MG PO ×2 (08:24→19:48)
[2021-02-19] MEDS: Potassium Chloride ER 20 MEQ TAB.ER.PRT PO (08:24)
[2021-02-19] MEDS: Cholecalciferol (Vitamin D3) 25 MCG TABLET PO (08:25)
[2021-02-19] MEDS: Furosemide 40 MG TABLET PO (08:25)
[2021-02-19] MEDS: lisinopriL 10 MG TABLET PO ×2 (08:25→19:50)
[2021-02-19] MEDS: Clopidogrel Bisulfate 75 MG TABLET PO (08:25)
[2021-02-19] MEDS: Aspirin 81 MG TAB.CHEW PO (08:25)
[2021-02-19] MEDS: Magnesium Oxide 400 MG TABLET PO (08:25)
[2021-02-19] MEDS: amLODIPine Besylate 5 MG TABLET PO (08:26)
--- NOTE | 2021-02-19 12:35 | PM.PNCARD ---
Subjective Subjective Date of Service: 02/19/21 Principal diagnosis: Cardiomyopathy Interval history: No cardiac symptoms to report Review of Systems Review of Systems Yes all other systems are reviewed and are negative Physical Exam Vital Signs: Last Vital Signs Temp 98 F 02/19/21 08:00 Pulse 73 02/19/21 08:26 Resp 16 02/19/21 08:00 BP 147/69 H 02/19/21 08:26 Pulse Ox 96 02/19/21 08:00 BMI result Body Mass Index 24.0 Const General: cooperative, comfortable, no acute distress, alert, awake and anxious Nutritional Appearance: average body habitus Orientation/consciousness: patient oriented x3 Neck Neck: Yes trachea midline, Yes supple and Yes no JVD Resp Effort & Inspection: normal respiratory effort Auscultation: clear to auscultation bilaterally Cardio Jugular venous distension: no JVD Rate: regular rate Rhythm: regular rhythm Heart sounds: S1 normal heart sound present, S2 normal heart sound present, no click, no gallops and no murmurs Neuro General: patient oriented x3 Extrem General: Yes no clubbing, cyanosis or edema Objective Labs and Meds Result diagrams: 02/09/21 16:51 02/17/21 18:10 Progress Note: A&P Assessment and plan (1) Ischemic cardiomyopathy: Status: Acute Assessment and Plan: Severe ischemic cardiomyopathy without any symptoms of congestive heart failure. Blood pressure is much better control now on current medications. Continue the same. Continue neurohormonal modulation with carvedilol and lisinopril which she is tolerating. She is having some head heaviness. However discussed importance of medical therapy to reduce her future cardiovascular events. 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 (2) Coronary artery disease: Status: Acute Assessment and Plan: CAD stable. Continue aspirin and statin therapy. Continue above medication with good blood pressure control. Continue to monitor blood pressure every 12 hours while at the hospital. Will sign of the case. Thank you for allowing us to partake in the care Fall Risk Details Current Medications: Current Medications Acetaminophen (Acetaminophen 325 Mg Tablet) 650 mg PO Q6H PRN PRN Reason: Headache/Pain Mild Scale (1-3) Al Hydroxide/Mg Hydroxide (Magnesium Hydrox/Alum Hydrox 30 Ml Oral.Susp) 30 ml PO Q6H PRN PRN Reason: Heartburn/Nausea Amlodipine Besylate (Amlodipine Besylate 5 Mg Tablet) 5 mg PO DAILY [facility]; Protocol Last Admin: 02/19/21 08:26 Dose: 5 mg Documented by: Aspirin (Aspirin 81 Mg Tab.Chew) 81 mg PO DAILY [facility] Last Admin: 02/19/21 08:25 Dose: 81 mg Documented by: Carvedilol (Carvedilol 12.5 Mg Tablet) 25 mg PO BID [facility]; Protocol Last Admin: 02/19/21 08:24 Dose: 25 mg Documented by: Clopidogrel Bisulfate (Clopidogrel Bisulfate 75 Mg Tablet) 75 mg PO DAILY [facility] Last Admin: 02/19/21 08:25 Dose: 75 mg Documented by: Donepezil HCl (Donepezil Hcl 5 Mg Tablet) 5 mg PO BEDTIME [facility] Last Admin: 02/18/21 21:18 Dose: 5 mg Documented by: Furosemide (Furosemide 40 Mg Tablet) 40 mg PO DAILY [facility]; Protocol Last Admin: 02/19/21 08:25 Dose: 40 mg Documented by: Hydroxyzine HCl (Hydroxyzine Hcl 25 Mg Tablet) 25 mg PO BEDTIME PRN PRN Reason: Anxiety Lisinopril (Lisinopril 10 Mg Tablet) 10 mg PO BID [facility]; Protocol Last Admin: 02/19/21 08:25 Dose: 10 mg Documented by: Lorazepam (Lorazepam 0.5 Mg Tablet) 0.5 mg PO Q8H PRN PRN Reason: Anxiety Last Admin: 02/17/21 15:46 Dose: 0.5 mg Documented by: Magnesium Hydroxide (Milk Of Magnesia 30 Ml Oral.Susp) 30 ml PO DAILY PRN PRN Reason: Constipation Magnesium Oxide (Magnesium Oxide 400 Mg Tablet) 400 mg PO DAILY [facility] Last Admin: 02/19/21 08:25 Dose: 400 mg Documented by: Omeprazole (Omeprazole 20 Mg Capsule.Dr) 20 mg PO DAILY@0630 [facility] Last Admin: 02/19/21 07:20 Dose: Not Given Documented by: Potassium Chloride (Potassium Chloride Er 20 Meq Tab.Er.Prt) 20 meq PO DAILY [facility] Last Admin: 02/19/21 08:24 Dose: 20 meq Documented by: Risperidone (Risperidone 0.5 Mg Tablet) 1.5 mg PO BEDTIME [facility] Last Admin: 02/18/21 21:19 Dose: 1.5 mg Documented by: Trazodone HCl (Trazodone Hcl 50 Mg Tablet) 50 mg PO BEDTIME PRN PRN Reason: Insomnia Vitamin D (Cholecalciferol (Vitamin D3) 25 Mcg Tablet) 25 mcg PO DAILY [facility] Last Admin: 02/19/21 08:25 Dose: 25 mcg Documented by: Time Spent With Patient Time: Total time spent is greater than 50% in coordination of care (as documented) at patient's floor/unit and/or counseling patient: Time with patient: 15 - 24 minutes Procedures Date of Service Date of Service: 02/19/21
--- NOTE | 2021-02-19 16:02 | P.PNPSI_ITS ---
Subjective Subjective Date of Service: 02/19/21 Reason For Visit: Paranoia, ECG changes Subjective Notes: Conditional Voluntary Interim History: The nursing staff reported that the patient remains secclussive and paranoid. She scored on the MOCA 20/30. On interview, she reported that she is doing well but she is very distrustful regarding her medications and she agreed to keep Risperdal 1.5 mg po qhs Mental Status Exam Mental Status Exam Patient Appearance: Well Grooomed Patient Orientation: Person Level of Consciousness: Awake Patient Behavior: Guarded, Passive and Suspicious Mood Description: Constricted Affect Description: Constricted Patient Cognition Impaired: Yes Ability to Follow Directions: Good Speech Pattern: Clear Hallucinations: Auditory Delusions: Paranoid Ideation Thought Process: Linear Thought Content: positive for Perseveration and positive for Loose Associations Judgement: Fair Diagnostics Vital Signs (24Hr): Vital Signs - 24 hr 02/18/21 20:54 02/18/21 21:17 02/18/21 21:18 Temperature 97.5 F Pulse Rate 78 78 78 Respiratory Rate 18 Blood Pressure 118/73 118/78 118/73 Pulse Oximetry 99 02/19/21 08:00 02/19/21 08:24 02/19/21 08:25 Temperature 98 F Pulse Rate 73 73 73 Respiratory Rate 16 Blood Pressure 147/69 H 147/69 H 147/69 H Pulse Oximetry 96 02/19/21 08:26 Temperature Pulse Rate 73 Respiratory Rate Blood Pressure 147/69 H Pulse Oximetry BMI result Body Mass Index 24.0 Labs Results: 02/09/21 16:51 02/17/21 18:10 Labs: Laboratory Results - last 48 hr 02/17/21 18:10 Sodium 137 Potassium 4.0 Chloride 96 Carbon Dioxide 28 Anion Gap 17 BUN 21 H Creatinine 0.82 Estim Creat Clear Calc 46.8 Estimated GFR > 60 Random Glucose 170 H Calcium 10.5 H Medications Medications Current Medications Acetaminophen (Acetaminophen 325 Mg Tablet) 650 mg PO Q6H PRN PRN Reason: Headache/Pain Mild Scale (1-3) Al Hydroxide/Mg Hydroxide (Magnesium Hydrox/Alum Hydrox 30 Ml Oral.Susp) 30 ml PO Q6H PRN PRN Reason: Heartburn/Nausea Amlodipine Besylate (Amlodipine Besylate 5 Mg Tablet) 5 mg PO DAILY [facility]; Protocol Last Admin: 02/19/21 08:26 Dose: 5 mg Documented by: Aspirin (Aspirin 81 Mg Tab.Chew) 81 mg PO DAILY [facility] Last Admin: 02/19/21 08:25 Dose: 81 mg Documented by: Carvedilol (Carvedilol 12.5 Mg Tablet) 25 mg PO BID [facility]; Protocol Last Admin: 02/19/21 08:24 Dose: 25 mg Documented by: Clopidogrel Bisulfate (Clopidogrel Bisulfate 75 Mg Tablet) 75 mg PO DAILY [facility] Last Admin: 02/19/21 08:25 Dose: 75 mg Documented by: Donepezil HCl (Donepezil Hcl 5 Mg Tablet) 5 mg PO BEDTIME [facility] Last Admin: 02/18/21 21:18 Dose: 5 mg Documented by: Furosemide (Furosemide 40 Mg Tablet) 40 mg PO DAILY [facility]; Protocol Last Admin: 02/19/21 08:25 Dose: 40 mg Documented by: Hydroxyzine HCl (Hydroxyzine Hcl 25 Mg Tablet) 25 mg PO BEDTIME PRN PRN Reason: Anxiety Lisinopril (Lisinopril 10 Mg Tablet) 10 mg PO BID [facility]; Protocol Last Admin: 02/19/21 08:25 Dose: 10 mg Documented by: Lorazepam (Lorazepam 0.5 Mg Tablet) 0.5 mg PO Q8H PRN PRN Reason: Anxiety Last Admin: 02/17/21 15:46 Dose: 0.5 mg Documented by: Magnesium Hydroxide (Milk Of Magnesia 30 Ml Oral.Susp) 30 ml PO DAILY PRN PRN Reason: Constipation Magnesium Oxide (Magnesium Oxide 400 Mg Tablet) 400 mg PO DAILY [facility] Last Admin: 02/19/21 08:25 Dose: 400 mg Documented by: Omeprazole (Omeprazole 20 Mg Capsule.Dr) 20 mg PO DAILY@0630 [facility] Last Admin: 02/19/21 07:20 Dose: Not Given Documented by: Potassium Chloride (Potassium Chloride Er 20 Meq Tab.Er.Prt) 20 meq PO DAILY [facility] Last Admin: 02/19/21 08:24 Dose: 20 meq Documented by: Risperidone (Risperidone 0.5 Mg Tablet) 1.5 mg PO BEDTIME [facility] Last Admin: 02/18/21 21:19 Dose: 1.5 mg Documented by: Trazodone HCl (Trazodone Hcl 50 Mg Tablet) 50 mg PO BEDTIME PRN PRN Reason: Insomnia Vitamin D (Cholecalciferol (Vitamin D3) 25 Mcg Tablet) 25 mcg PO DAILY [facility] Last Admin: 02/19/21 08:25 Dose: 25 mcg Documented by: Allergies Allergies Allergy/AdvReac Type Severity Reaction Status Date / Time No Known Allergies [NKA] Allergy Mild NOT Unverified 11/23/19 14:43 APPLICABLE Assessment & Plan Assessment & Plan (1) Ischemic cardiomyopathy: Status: Acute Code(s): I25.5 - Ischemic cardiomyopathy Assessment and Plan: Severe ischemic cardiomyopathy without any symptoms of congestive heart failure. Blood pressure is much better control now on current medications. Continue the same. Continue neurohormonal modulation with carvedilol and lisinopril which she is tolerating. She is having some head heaviness. However discussed importance of medical therapy to reduce her future cardiovascular events. Can follow up as outpatient with her own aquaculture program director once discharged. (2) Coronary artery disease: Status: Acute Code(s): I25.10 - Atherosclerotic heart disease of [place] coronary artery without angina pectoris Assessment and Plan: CAD stable. Continue aspirin and statin therapy. Continue above medication with good blood pressure control. Continue to monitor blood pressure every 12 hours while at the hospital. Will sign of the case. Thank you for allowing us to partake in the care Assessment and Plan: The patient is a 75-year-old female with a long history of schizoaffective disorder admitted for exacerbation of psychosis in the context of discontinuation of Zyprexa. Plan. Continue with same treatment I spent minutes with the patient and/or on the patient floor today, greater than?50% of which was spent counseling/coordinating care. Reason for contiued inpatient stay Substantial Risk for: inability to function, rapid decompensation and med/psych decompensation
[2021-02-19] MEDS: risperiDONE 0.5 MG TABLET 1.5 MG PO (19:49)
[2021-02-19] MEDS: Donepezil HCl 5 MG TABLET PO (19:50)
[2021-02-19] MEDS: Loperamide HCl 2 MG CAPSULE 4 MG PO (20:12)
[2021-02-19] MEDS: hydrOXYzine HCL 25 MG TABLET PO (20:16)
[2021-02-20 06:00] VITALS: BP 149/88; PULSE 78; RESP 16; TEMP 36.6; O2SAT 97
[2021-02-20 07:00] VITALS: BMI 24.5
[2021-02-20 08:33] VITALS: BP 149/88; PULSE 78
[2021-02-20] MEDS: amLODIPine Besylate 5 MG TABLET PO (08:33)
[2021-02-20] MEDS: Furosemide 40 MG TABLET PO (08:34)
[2021-02-20] MEDS: Cholecalciferol (Vitamin D3) 25 MCG TABLET PO (08:34)
[2021-02-20] MEDS: Potassium Chloride ER 20 MEQ TAB.ER.PRT PO (08:34)
[2021-02-20] MEDS: Aspirin 81 MG TAB.CHEW PO (08:34)
[2021-02-20] MEDS: Clopidogrel Bisulfate 75 MG TABLET PO (08:34)
[2021-02-20 08:37] VITALS: BP 149/65; PULSE 78
[2021-02-20] MEDS: carvediloL 12.5 MG TABLET 25 MG PO ×2 (08:37→20:27)
[2021-02-20] MEDS: lisinopriL 10 MG TABLET PO ×2 (08:37→20:25)
[2021-02-20] MEDS: Magnesium Oxide 400 MG TABLET PO (08:38)
--- NOTE | 2021-02-20 15:05 | P.PNPSI_ITS ---
Subjective Subjective Date of Service: 02/20/21 Reason For Visit: Paranoia, ECG changes Subjective Notes: Conditional Voluntary Interim History: The nursing staff reports that the patient feels that she is overmedicated. On interview, the patient is suspicious and paranoid and she stated that she feels dizzy in the morning. Her blood pressure medications also were changed. Since the patient remains paranoid we will increase Risperdal up to 2 mg p.o. q.h.s. Mental Status Exam Mental Status Exam Patient Appearance: Well Grooomed Patient Orientation: Person Level of Consciousness: Awake Patient Behavior: Cooperative Mood Description: Calm Affect Description: Constricted Patient Cognition Impaired: No Ability to Follow Directions: Fair Speech Pattern: Clear Hallucinations: None Delusions: Paranoid Ideation Thought Process: Evasive Thought Content: positive for Perseveration and positive for Evasive Judgement: Fair Diagnostics Vital Signs (24Hr): Vital Signs - 24 hr 02/19/21 19:48 02/19/21 19:50 02/19/21 20:31 Temperature 98.8 F Pulse Rate 75 75 75 Respiratory Rate 17 Blood Pressure 155/78 H 155/78 H 155/78 H Pulse Oximetry 97 02/20/21 06:00 02/20/21 08:33 02/20/21 08:37 Temperature 98 F Pulse Rate 78 78 78 Respiratory Rate 16 Blood Pressure 149/88 H 149/88 H 149/65 H Pulse Oximetry 97 BMI result Body Mass Index 24.5 Labs Results: 02/09/21 16:51 02/17/21 18:10 Medications Medications Current Medications Acetaminophen (Acetaminophen 325 Mg Tablet) 650 mg PO Q6H PRN PRN Reason: Headache/Pain Mild Scale (1-3) Al Hydroxide/Mg Hydroxide (Magnesium Hydrox/Alum Hydrox 30 Ml Oral.Susp) 30 ml PO Q6H PRN PRN Reason: Heartburn/Nausea Amlodipine Besylate (Amlodipine Besylate 5 Mg Tablet) 5 mg PO DAILY [facility]; Protocol Last Admin: 02/20/21 08:33 Dose: 5 mg Documented by: Aspirin (Aspirin 81 Mg Tab.Chew) 81 mg PO DAILY [facility] Last Admin: 02/20/21 08:34 Dose: 81 mg Documented by: Carvedilol (Carvedilol 12.5 Mg Tablet) 25 mg PO BID [facility]; Protocol Last Admin: 02/20/21 08:37 Dose: 25 mg Documented by: Clopidogrel Bisulfate (Clopidogrel Bisulfate 75 Mg Tablet) 75 mg PO DAILY [facility] Last Admin: 02/20/21 08:34 Dose: 75 mg Documented by: Donepezil HCl (Donepezil Hcl 5 Mg Tablet) 5 mg PO BEDTIME [facility] Last Admin: 02/19/21 19:50 Dose: 5 mg Documented by: Furosemide (Furosemide 40 Mg Tablet) 40 mg PO DAILY [facility]; Protocol Last Admin: 02/20/21 08:34 Dose: 40 mg Documented by: Hydroxyzine HCl (Hydroxyzine Hcl 25 Mg Tablet) 25 mg PO BEDTIME PRN PRN Reason: Anxiety Last Admin: 02/19/21 20:16 Dose: 25 mg Documented by: Lisinopril (Lisinopril 10 Mg Tablet) 10 mg PO BID [facility]; Protocol Last Admin: 02/20/21 08:37 Dose: 10 mg Documented by: Lorazepam (Lorazepam 0.5 Mg Tablet) 0.5 mg PO Q8H PRN PRN Reason: Anxiety Last Admin: 02/17/21 15:46 Dose: 0.5 mg Documented by: Magnesium Hydroxide (Milk Of Magnesia 30 Ml Oral.Susp) 30 ml PO DAILY PRN PRN Reason: Constipation Magnesium Oxide (Magnesium Oxide 400 Mg Tablet) 400 mg PO DAILY [facility] Last Admin: 02/20/21 08:38 Dose: 400 mg Documented by: Potassium Chloride (Potassium Chloride Er 20 Meq Tab.Er.Prt) 20 meq PO DAILY [facility] Last Admin: 02/20/21 08:34 Dose: 20 meq Documented by: Risperidone (Risperidone 0.5 Mg Tablet) 1.5 mg PO BEDTIME [facility] Last Admin: 02/19/21 19:49 Dose: 1.5 mg Documented by: Trazodone HCl (Trazodone Hcl 50 Mg Tablet) 50 mg PO BEDTIME PRN PRN Reason: Insomnia Vitamin D (Cholecalciferol (Vitamin D3) 25 Mcg Tablet) 25 mcg PO DAILY [facility] Last Admin: 02/20/21 08:34 Dose: 25 mcg Documented by: Allergies Allergies Allergy/AdvReac Type Severity Reaction Status Date / Time No Known Allergies [NKA] Allergy Mild NOT Unverified 11/23/19 14:43 APPLICABLE Assessment & Plan Assessment & Plan (1) Ischemic cardiomyopathy: Status: Acute Code(s): I25.5 - Ischemic cardiomyopathy Assessment and Plan: Severe ischemic cardiomyopathy without any symptoms of congestive heart failure. Blood pressure is much better control now on current medications. Continue the same. Continue neurohormonal modulation with carvedilol and lisinopril which she is tolerating. She is having some head heaviness. However discussed importance of medical therapy to reduce her future cardiovascular events. Can follow up as outpatient with her own family law paralegal once discharged. (2) Coronary artery disease: Status: Acute Code(s): I25.10 - Atherosclerotic heart disease of [place] coronary artery without angina pectoris Assessment and Plan: CAD stable. Continue aspirin and statin therapy. Continue above medication with good blood pressure control. Continue to monitor blood pressure every 12 hours while at the hospital. Will sign of the case. Thank you for allowing us to partake in the care Assessment and Plan: The patient is a 75-year-old female with a long history of schizoaffective disorder admitted for exacerbation of psychosis in the context of discontinuation of Zyprexa. Plan. Increase Risperdal up to 2 mg p.o. q.h.s. I spent minutes with the patient and/or on the patient floor today, greater than?50% of which was spent counseling/coordinating care. Reason for contiued inpatient stay Substantial Risk for: inability to function, rapid decompensation and med/psych decompensation
[2021-02-20 18:00] VITALS: BP 135/63; PULSE 67; RESP 16; TEMP 36.9; O2SAT 97
[2021-02-20 20:25] VITALS: BP 135/63; PULSE 67
[2021-02-20] MEDS: risperiDONE 2 MG TABLET PO (20:26)
[2021-02-20 20:27] VITALS: BP 135/63; PULSE 67
[2021-02-20] MEDS: Donepezil HCl 5 MG TABLET PO (20:27)
[2021-02-21 06:00] VITALS: BP 156/70; PULSE 70; RESP 16; TEMP 36.8; O2SAT 96
[2021-02-21 08:08] VITALS: BP 126/67; PULSE 59
[2021-02-21] MEDS: Potassium Chloride ER 20 MEQ TAB.ER.PRT PO (08:08)
[2021-02-21] MEDS: Cholecalciferol (Vitamin D3) 25 MCG TABLET PO (08:08)
[2021-02-21] MEDS: carvediloL 12.5 MG TABLET 25 MG PO ×2 (08:08→19:55)
[2021-02-21 08:09] VITALS: BP 156/70; PULSE 70
[2021-02-21] MEDS: amLODIPine Besylate 5 MG TABLET PO (08:09)
[2021-02-21] MEDS: Aspirin 81 MG TAB.CHEW PO (08:09)
[2021-02-21] MEDS: lisinopriL 10 MG TABLET PO ×2 (08:09→19:54)
[2021-02-21] MEDS: Furosemide 40 MG TABLET PO (08:09)
[2021-02-21] MEDS: Clopidogrel Bisulfate 75 MG TABLET PO (08:09)
[2021-02-21] MEDS: Magnesium Oxide 400 MG TABLET PO (08:10)
--- NOTE | 2021-02-21 15:24 | P.PNPSI_ITS ---
Subjective Subjective Date of Service: 02/21/21 Reason For Visit: Paranoia, ECG changes Subjective Notes: Conditional Voluntary Interim History: The nursing staff reports the patient has been isolative and looks suspicious distrustful with staff. On interview, the patient denies any side effects she is still a little paranoid. Mental Status Exam Mental Status Exam Patient Appearance: Well Grooomed Patient Orientation: Person Level of Consciousness: Awake Patient Behavior: Cooperative Mood Description: Calm Affect Description: Constricted Patient Cognition Impaired: No Ability to Follow Directions: Good Speech Pattern: Clear Hallucinations: None Delusions: Paranoid Ideation Thought Process: Linear Thought Content: positive for [place] Judgement: Fair Diagnostics Vital Signs (24Hr): Vital Signs - 24 hr 02/20/21 18:00 02/20/21 20:25 02/20/21 20:27 Temperature 98.5 F Pulse Rate 67 67 67 Respiratory Rate 16 Blood Pressure 135/63 135/63 135/63 Pulse Oximetry 97 02/21/21 06:00 02/21/21 08:08 02/21/21 08:09 Temperature 98.2 F Pulse Rate 70 59 70 Respiratory Rate 16 Blood Pressure 156/70 H 126/67 156/70 H Pulse Oximetry 96 BMI result Body Mass Index 24.5 Labs Results: 02/09/21 16:51 02/17/21 18:10 Medications Medications Current Medications Acetaminophen (Acetaminophen 325 Mg Tablet) 650 mg PO Q6H PRN PRN Reason: Headache/Pain Mild Scale (1-3) Al Hydroxide/Mg Hydroxide (Magnesium Hydrox/Alum Hydrox 30 Ml Oral.Susp) 30 ml PO Q6H PRN PRN Reason: Heartburn/Nausea Amlodipine Besylate (Amlodipine Besylate 5 Mg Tablet) 5 mg PO DAILY [facility]; Protocol Last Admin: 02/21/21 08:09 Dose: 5 mg Documented by: Aspirin (Aspirin 81 Mg Tab.Chew) 81 mg PO DAILY [facility] Last Admin: 02/21/21 08:09 Dose: 81 mg Documented by: Carvedilol (Carvedilol 12.5 Mg Tablet) 25 mg PO BID [facility]; Protocol Last Admin: 02/21/21 08:08 Dose: 25 mg Documented by: Clopidogrel Bisulfate (Clopidogrel Bisulfate 75 Mg Tablet) 75 mg PO DAILY [facility] Last Admin: 02/21/21 08:09 Dose: 75 mg Documented by: Donepezil HCl (Donepezil Hcl 5 Mg Tablet) 5 mg PO BEDTIME [facility] Last Admin: 02/20/21 20:27 Dose: 5 mg Documented by: Furosemide (Furosemide 40 Mg Tablet) 40 mg PO DAILY [facility]; Protocol Last Admin: 02/21/21 08:09 Dose: 40 mg Documented by: Hydroxyzine HCl (Hydroxyzine Hcl 25 Mg Tablet) 25 mg PO BEDTIME PRN PRN Reason: Anxiety Last Admin: 02/19/21 20:16 Dose: 25 mg Documented by: Lisinopril (Lisinopril 10 Mg Tablet) 10 mg PO BID [facility]; Protocol Last Admin: 02/21/21 08:09 Dose: 10 mg Documented by: Magnesium Hydroxide (Milk Of Magnesia 30 Ml Oral.Susp) 30 ml PO DAILY PRN PRN Reason: Constipation Magnesium Oxide (Magnesium Oxide 400 Mg Tablet) 400 mg PO DAILY [facility] Last Admin: 02/21/21 08:10 Dose: 400 mg Documented by: Potassium Chloride (Potassium Chloride Er 20 Meq Tab.Er.Prt) 20 meq PO DAILY [facility] Last Admin: 02/21/21 08:08 Dose: 20 meq Documented by: Risperidone (Risperidone 2 Mg Tablet) 2 mg PO BEDTIME [facility] Last Admin: 02/20/21 20:26 Dose: 2 mg Documented by: Trazodone HCl (Trazodone Hcl 50 Mg Tablet) 50 mg PO BEDTIME PRN PRN Reason: Insomnia Vitamin D (Cholecalciferol (Vitamin D3) 25 Mcg Tablet) 25 mcg PO DAILY [facility] Last Admin: 02/21/21 08:08 Dose: 25 mcg Documented by: Allergies Allergies Allergy/AdvReac Type Severity Reaction Status Date / Time No Known Allergies [NKA] Allergy Mild NOT Unverified 11/23/19 14:43 APPLICABLE Assessment & Plan Assessment & Plan (1) Ischemic cardiomyopathy: Status: Acute Code(s): I25.5 - Ischemic cardiomyopathy Assessment and Plan: Severe ischemic cardiomyopathy without any symptoms of congestive heart failure. Blood pressure is much better control now on current medications. Continue the same. Continue neurohormonal modulation with carvedilol and lisinopril which she is tolerating. She is having some head heaviness. However discussed importance of medical therapy to reduce her future cardiovascular events. Can follow up as outpatient with her own water project manager once discharged. (2) Coronary artery disease: Status: Acute Code(s): I25.10 - Atherosclerotic heart disease of [place] coronary artery without angina pectoris Assessment and Plan: CAD stable. Continue aspirin and statin therapy. Continue above medication with good blood pressure control. Continue to monitor blood pressure every 12 hours while at the hospital. Will sign of the case. Thank you for allowing us to partake in the care Assessment and Plan: The patient is a 75-year-old female with a long history of schizoaffective disorder admitted for exacerbation of psychosis in the context of discontinuation of Zyprexa. Plan. Keep Risperdal up to 2 mg p.o. q.h.s. I spent minutes with the patient and/or on the patient floor today, greater than?50% of which was spent counseling/coordinating care. Reason for contiued inpatient stay Substantial Risk for: inability to function, rapid decompensation and med/psych decompensation
[2021-02-21 19:45] VITALS: BP 127/77; PULSE 67; RESP 16; TEMP 36.9; O2SAT 98
[2021-02-21] MEDS: risperiDONE 2 MG TABLET PO (19:53)
[2021-02-21 19:54] VITALS: BP 127/77; PULSE 67
[2021-02-21] MEDS: Donepezil HCl 5 MG TABLET PO (19:54)
[2021-02-21 19:55] VITALS: BP 127/77; PULSE 67
[2021-02-22 08:15] VITALS: BP 150/73; PULSE 72; RESP 16; TEMP 36.4; O2SAT 98
[2021-02-22] MEDS: Aspirin 81 MG TAB.CHEW PO (08:50)
[2021-02-22] MEDS: Furosemide 40 MG TABLET PO (08:50)
[2021-02-22] MEDS: Potassium Chloride ER 20 MEQ TAB.ER.PRT PO (08:50)
[2021-02-22 08:51] VITALS: BP 150/73; PULSE 72
[2021-02-22] MEDS: Cholecalciferol (Vitamin D3) 25 MCG TABLET PO (08:51)
[2021-02-22] MEDS: Magnesium Oxide 400 MG TABLET PO (08:51)
[2021-02-22] MEDS: amLODIPine Besylate 5 MG TABLET PO (08:51)
[2021-02-22] MEDS: Clopidogrel Bisulfate 75 MG TABLET PO (08:51)
[2021-02-22] MEDS: lisinopriL 10 MG TABLET PO ×2 (08:51→20:27)
[2021-02-22 08:52] VITALS: BP 150/73; PULSE 72
[2021-02-22] MEDS: carvediloL 12.5 MG TABLET 25 MG PO ×2 (08:52→20:27)
--- NOTE | 2021-02-22 10:00 | HO.PSYCHPN ---
Subjective Subjective Date of Service: 02/22/21 Reason For Visit: Paranoia, ECG changes Subjective Notes: Conditional Voluntary Interim History: The nursing staff reports the patient asks carefully about the medications that she is taking, very suspicious and paranoid. On interview, the patient denies new symptoms and she was requesting a sooner discharged. Mental Status Exam Mental Status Exam Patient Appearance: Well Grooomed Patient Orientation: Person Level of Consciousness: Awake Patient Behavior: Cooperative Mood Description: Constricted Affect Description: Constricted Patient Cognition Impaired: No Ability to Follow Directions: Good Speech Pattern: Clear Hallucinations: None Delusions: Paranoid Ideation Thought Process: Linear Thought Content: positive for [place] Judgement: Fair Diagnostics Vital Signs (24Hr): Vital Signs - 24 hr 02/21/21 19:45 02/21/21 19:54 02/21/21 19:55 Temperature 98.5 F Pulse Rate 67 67 67 Respiratory Rate 16 Blood Pressure 127/77 127/77 127/77 Pulse Oximetry 98 02/22/21 08:15 02/22/21 08:51 02/22/21 08:52 Temperature 97.6 F Pulse Rate 72 72 72 Respiratory Rate 16 Blood Pressure 150/73 H 150/73 H 150/73 H Pulse Oximetry 98 BMI result Body Mass Index 24.5 Labs Results: 02/09/21 16:51 02/17/21 18:10 Medications Medications Current Medications Acetaminophen (Acetaminophen 325 Mg Tablet) 650 mg PO Q6H PRN PRN Reason: Headache/Pain Mild Scale (1-3) Al Hydroxide/Mg Hydroxide (Magnesium Hydrox/Alum Hydrox 30 Ml Oral.Susp) 30 ml PO Q6H PRN PRN Reason: Heartburn/Nausea Amlodipine Besylate (Amlodipine Besylate 5 Mg Tablet) 5 mg PO DAILY [facility]; Protocol Last Admin: 02/22/21 08:51 Dose: 5 mg Documented by: Aspirin (Aspirin 81 Mg Tab.Chew) 81 mg PO DAILY [facility] Last Admin: 02/22/21 08:50 Dose: 81 mg Documented by: Carvedilol (Carvedilol 12.5 Mg Tablet) 25 mg PO BID [facility]; Protocol Last Admin: 02/22/21 08:52 Dose: 25 mg Documented by: Clopidogrel Bisulfate (Clopidogrel Bisulfate 75 Mg Tablet) 75 mg PO DAILY [facility] Last Admin: 02/22/21 08:51 Dose: 75 mg Documented by: Donepezil HCl (Donepezil Hcl 5 Mg Tablet) 5 mg PO BEDTIME [facility] Last Admin: 02/21/21 19:54 Dose: 5 mg Documented by: Furosemide (Furosemide 40 Mg Tablet) 40 mg PO DAILY [facility]; Protocol Last Admin: 02/22/21 08:50 Dose: 40 mg Documented by: Hydroxyzine HCl (Hydroxyzine Hcl 25 Mg Tablet) 25 mg PO BEDTIME PRN PRN Reason: Anxiety Last Admin: 02/19/21 20:16 Dose: 25 mg Documented by: Lisinopril (Lisinopril 10 Mg Tablet) 10 mg PO BID [facility]; Protocol Last Admin: 02/22/21 08:51 Dose: 10 mg Documented by: Magnesium Hydroxide (Milk Of Magnesia 30 Ml Oral.Susp) 30 ml PO DAILY PRN PRN Reason: Constipation Magnesium Oxide (Magnesium Oxide 400 Mg Tablet) 400 mg PO DAILY [facility] Last Admin: 02/22/21 08:51 Dose: 400 mg Documented by: Potassium Chloride (Potassium Chloride Er 20 Meq Tab.Er.Prt) 20 meq PO DAILY [facility] Last Admin: 02/22/21 08:50 Dose: 20 meq Documented by: Risperidone (Risperidone 2 Mg Tablet) 2 mg PO BEDTIME [facility] Last Admin: 02/21/21 19:53 Dose: 2 mg Documented by: Trazodone HCl (Trazodone Hcl 50 Mg Tablet) 50 mg PO BEDTIME PRN PRN Reason: Insomnia Vitamin D (Cholecalciferol (Vitamin D3) 25 Mcg Tablet) 25 mcg PO DAILY [facility] Last Admin: 02/22/21 08:51 Dose: 25 mcg Documented by: Allergies Allergies Allergy/AdvReac Type Severity Reaction Status Date / Time No Known Allergies [NKA] Allergy Mild NOT Unverified 11/23/19 14:43 APPLICABLE Assessment & Plan Assessment & Plan (1) Ischemic cardiomyopathy: Status: Acute Code(s): I25.5 - Ischemic cardiomyopathy Assessment and Plan: Severe ischemic cardiomyopathy without any symptoms of congestive heart failure. Blood pressure is much better control now on current medications. Continue the same. Continue neurohormonal modulation with carvedilol and lisinopril which she is tolerating. She is having some head heaviness. However discussed importance of medical therapy to reduce her future cardiovascular events. Can follow up as outpatient with her own occupational health technician once discharged. (2) Coronary artery disease: Status: Acute Code(s): I25.10 - Atherosclerotic heart disease of [place] coronary artery without angina pectoris Assessment and Plan: CAD stable. Continue aspirin and statin therapy. Continue above medication with good blood pressure control. Continue to monitor blood pressure every 12 hours while at the hospital. Will sign of the case. Thank you for allowing us to partake in the care Assessment and Plan: The patient is a 75-year-old female with a long history of schizoaffective disorder admitted for exacerbation of psychosis in the context of discontinuation of Zyprexa. Plan. Keep Risperdal up to 2 mg p.o. q.h.s. I spent minutes with the patient and/or on the patient floor today, greater than?50% of which was spent counseling/coordinating care. Reason for contiued inpatient stay Substantial Risk for: inability to function, rapid decompensation and med/psych decompensation
[2021-02-22 19:50] VITALS: BP 156/74; PULSE 72; RESP 16; TEMP 37.1; O2SAT 99
[2021-02-22] MEDS: Donepezil HCl 5 MG TABLET PO (20:26)
[2021-02-22] MEDS: risperiDONE 2 MG TABLET PO (20:26)
[2021-02-22 20:27] VITALS: BP 156/74; PULSE 72
[2021-02-23 06:00] VITALS: RESP 16; TEMP 36.6; O2SAT 95
[2021-02-23 08:17] VITALS: BP 121/61; PULSE 69
[2021-02-23] MEDS: Furosemide 40 MG TABLET PO (08:17)
[2021-02-23] MEDS: lisinopriL 10 MG TABLET PO ×2 (08:17→21:16)
[2021-02-23] MEDS: Clopidogrel Bisulfate 75 MG TABLET PO (08:17)
[2021-02-23] MEDS: Cholecalciferol (Vitamin D3) 25 MCG TABLET PO (08:17)
[2021-02-23] MEDS: amLODIPine Besylate 5 MG TABLET PO (08:17)
[2021-02-23] MEDS: Potassium Chloride ER 20 MEQ TAB.ER.PRT PO (08:17)
[2021-02-23] MEDS: Magnesium Oxide 400 MG TABLET PO (08:17)
[2021-02-23] MEDS: Aspirin 81 MG TAB.CHEW PO (08:18)
[2021-02-23] MEDS: carvediloL 12.5 MG TABLET 25 MG PO ×2 (08:18→21:15)
--- NOTE | 2021-02-23 10:15 | P.PNPSI_ITS ---
Subjective Subjective Date of Service: 02/23/21 Reason For Visit: Paranoia, ECG changes Subjective Notes: Conditional Voluntary Interim History: The nursing staff reports the patient remains mostly in her room, she denies anxiety or depression she denies side effects with the current medication. On interview, the patient reported that she is doing fine she is fully aware of the change of medications and she requested to be discharged before [place]. Mental Status Exam Mental Status Exam Patient Appearance: Well Grooomed Patient Orientation: Person Level of Consciousness: Alert Patient Behavior: Guarded and Passive Mood Description: Constricted Affect Description: Constricted Ability to Follow Directions: Good Speech Pattern: Appropriate Hallucinations: None Delusions: Paranoid Ideation Thought Process: Linear Thought Content: positive for [place] Judgement: Fair Diagnostics Vital Signs (24Hr): Vital Signs - 24 hr 02/22/21 19:50 02/22/21 20:27 02/23/21 06:00 Temperature 98.8 F 97.9 F Pulse Rate 72 72 Respiratory Rate 16 16 Blood Pressure 156/74 H 156/74 H Pulse Oximetry 99 95 02/23/21 08:17 Temperature Pulse Rate 69 Respiratory Rate Blood Pressure 121/61 Pulse Oximetry BMI result Body Mass Index 24.5 Labs Results: 02/09/21 16:51 02/17/21 18:10 Medications Medications Current Medications Acetaminophen (Acetaminophen 325 Mg Tablet) 650 mg PO Q6H PRN PRN Reason: Headache/Pain Mild Scale (1-3) Al Hydroxide/Mg Hydroxide (Magnesium Hydrox/Alum Hydrox 30 Ml Oral.Susp) 30 ml PO Q6H PRN PRN Reason: Heartburn/Nausea Amlodipine Besylate (Amlodipine Besylate 5 Mg Tablet) 5 mg PO DAILY [facility]; Protocol Last Admin: 02/23/21 08:17 Dose: 5 mg Documented by: Aspirin (Aspirin 81 Mg Tab.Chew) 81 mg PO DAILY [facility] Last Admin: 02/23/21 08:18 Dose: 81 mg Documented by: Carvedilol (Carvedilol 12.5 Mg Tablet) 25 mg PO BID [facility]; Protocol Last Admin: 02/23/21 08:18 Dose: 25 mg Documented by: Clopidogrel Bisulfate (Clopidogrel Bisulfate 75 Mg Tablet) 75 mg PO DAILY [facility] Last Admin: 02/23/21 08:17 Dose: 75 mg Documented by: Donepezil HCl (Donepezil Hcl 5 Mg Tablet) 5 mg PO BEDTIME [facility] Last Admin: 02/22/21 20:26 Dose: 5 mg Documented by: Furosemide (Furosemide 40 Mg Tablet) 40 mg PO DAILY [facility]; Protocol Last Admin: 02/23/21 08:17 Dose: 40 mg Documented by: Hydroxyzine HCl (Hydroxyzine Hcl 25 Mg Tablet) 25 mg PO BEDTIME PRN PRN Reason: Anxiety Last Admin: 02/19/21 20:16 Dose: 25 mg Documented by: Lisinopril (Lisinopril 10 Mg Tablet) 10 mg PO BID [facility]; Protocol Last Admin: 02/23/21 08:17 Dose: 10 mg Documented by: Magnesium Hydroxide (Milk Of Magnesia 30 Ml Oral.Susp) 30 ml PO DAILY PRN PRN Reason: Constipation Magnesium Oxide (Magnesium Oxide 400 Mg Tablet) 400 mg PO DAILY [facility] Last Admin: 02/23/21 08:17 Dose: 400 mg Documented by: Potassium Chloride (Potassium Chloride Er 20 Meq Tab.Er.Prt) 20 meq PO DAILY [facility] Last Admin: 02/23/21 08:17 Dose: 20 meq Documented by: Risperidone (Risperidone 2 Mg Tablet) 2 mg PO BEDTIME [facility] Last Admin: 02/22/21 20:26 Dose: 2 mg Documented by: Trazodone HCl (Trazodone Hcl 50 Mg Tablet) 50 mg PO BEDTIME PRN PRN Reason: Insomnia Vitamin D (Cholecalciferol (Vitamin D3) 25 Mcg Tablet) 25 mcg PO DAILY [facility] Last Admin: 02/23/21 08:17 Dose: 25 mcg Documented by: Allergies Allergies Allergy/AdvReac Type Severity Reaction Status Date / Time No Known Allergies [NKA] Allergy Mild NOT Unverified 11/23/19 14:43 APPLICABLE Assessment & Plan Assessment & Plan (1) Ischemic cardiomyopathy: Status: Acute Code(s): I25.5 - Ischemic cardiomyopathy Assessment and Plan: Severe ischemic cardiomyopathy without any symptoms of congestive heart failure. Blood pressure is much better control now on current medications. Continue the same. Continue neurohormonal modulation with carvedilol and lisinopril which she is tolerating. She is having some head heaviness. However discussed importance of medical therapy to reduce her future cardiovascular events. Can follow up as outpatient with her own icer machine once discharged. (2) Coronary artery disease: Status: Acute Code(s): I25.10 - Atherosclerotic heart disease of [place] coronary artery without angina pectoris Assessment and Plan: CAD stable. Continue aspirin and statin therapy. Continue above medication with good blood pressure control. Continue to monitor blood pressure every 12 hours while at the hospital. Will sign of the case. Thank you for allowing us to partake in the care Assessment and Plan: The patient is a 75-year-old female with a long history of schizoaffective disorder admitted for exacerbation of psychosis in the context of discontinuation of Zyprexa. Plan. Keep Risperdal up to 2 mg p.o. q.h.s. I spent minutes with the patient and/or on the patient floor today, greater than?50% of which was spent counseling/coordinating care. Reason for contiued inpatient stay Substantial Risk for: inability to function, rapid decompensation and med/psych decompensation
[2021-02-23 21:15] VITALS: BP 142/65; PULSE 71
[2021-02-23] MEDS: Donepezil HCl 5 MG TABLET PO (21:15)
[2021-02-23 21:16] VITALS: BP 142/65; PULSE 71
[2021-02-23] MEDS: risperiDONE 2 MG TABLET PO (21:16)
[2021-02-23 21:48] VITALS: BP 142/65; PULSE 71; RESP 18; TEMP 36.6; O2SAT 96
[2021-02-24 06:00] VITALS: BP 158/74; PULSE 63; TEMP 36.4; O2SAT 97
[2021-02-24] MEDS: Potassium Chloride ER 20 MEQ TAB.ER.PRT PO (09:22)
[2021-02-24] MEDS: Cholecalciferol (Vitamin D3) 25 MCG TABLET PO (09:22)
[2021-02-24] MEDS: Furosemide 40 MG TABLET PO (09:22)
[2021-02-24] MEDS: Aspirin 81 MG TAB.CHEW PO (09:22)
[2021-02-24 09:23] VITALS: BP 158/74; PULSE 63
[2021-02-24] MEDS: lisinopriL 10 MG TABLET PO ×2 (09:23→20:21)
[2021-02-24] MEDS: Magnesium Oxide 400 MG TABLET PO (09:23)
[2021-02-24] MEDS: carvediloL 12.5 MG TABLET 25 MG PO ×2 (09:23→20:20)
[2021-02-24] MEDS: Clopidogrel Bisulfate 75 MG TABLET PO (09:23)
[2021-02-24] MEDS: amLODIPine Besylate 5 MG TABLET PO (09:24)
--- NOTE | 2021-02-24 11:59 | P.PNPSI_ITS ---
Subjective Subjective Date of Service: 02/24/21 Reason For Visit: Paranoia, ECG changes Subjective Notes: Conditional Voluntary Interim History: Patient come cooperative when seen taking Risperdal denies any side effects Medication Compliance: Yes Side effects from medications: No Mental Status Exam Mental Status Exam Patient Appearance: Well Grooomed Patient Orientation: Person Level of Consciousness: Alert Patient Behavior: Guarded and Passive Mood Description: Constricted Affect Description: Constricted Ability to Follow Directions: Good Speech Pattern: Appropriate Hallucinations: None Delusions: Paranoid Ideation Thought Process: Linear Thought Content: positive for Intact and positive for Circumstantial Judgement: Fair Judgement and Insight: Patient isolative somewhat guarded regarding paranoid concerns around department avoiding interacting with others Diagnostics Vital Signs (24Hr): Vital Signs - 24 hr 02/23/21 21:15 02/23/21 21:16 02/23/21 21:48 Temperature 97.8 F Pulse Rate 71 71 71 Respiratory Rate 18 Blood Pressure 142/65 H 142/65 H 142/65 H Pulse Oximetry 96 02/24/21 06:00 02/24/21 09:23 Temperature 97.5 F Pulse Rate 63 63 Respiratory Rate Blood Pressure 158/74 H 158/74 H Pulse Oximetry 97 BMI result Body Mass Index 24.5 Labs Results: 02/09/21 16:51 02/17/21 18:10 Medications Medications Current Medications Acetaminophen (Acetaminophen 325 Mg Tablet) 650 mg PO Q6H PRN PRN Reason: Headache/Pain Mild Scale (1-3) Al Hydroxide/Mg Hydroxide (Magnesium Hydrox/Alum Hydrox 30 Ml Oral.Susp) 30 ml PO Q6H PRN PRN Reason: Heartburn/Nausea Amlodipine Besylate (Amlodipine Besylate 5 Mg Tablet) 5 mg PO DAILY [facility]; Protocol Last Admin: 02/24/21 09:24 Dose: 5 mg Documented by: Aspirin (Aspirin 81 Mg Tab.Chew) 81 mg PO DAILY [facility] Last Admin: 02/24/21 09:22 Dose: 81 mg Documented by: Carvedilol (Carvedilol 12.5 Mg Tablet) 25 mg PO BID [facility]; Protocol Last Admin: 02/24/21 09:23 Dose: 25 mg Documented by: Clopidogrel Bisulfate (Clopidogrel Bisulfate 75 Mg Tablet) 75 mg PO DAILY [facility] Last Admin: 02/24/21 09:23 Dose: 75 mg Documented by: Donepezil HCl (Donepezil Hcl 5 Mg Tablet) 5 mg PO BEDTIME [facility] Last Admin: 02/23/21 21:15 Dose: 5 mg Documented by: Furosemide (Furosemide 40 Mg Tablet) 40 mg PO DAILY [facility]; Protocol Last Admin: 02/24/21 09:22 Dose: 40 mg Documented by: Hydroxyzine HCl (Hydroxyzine Hcl 25 Mg Tablet) 25 mg PO BEDTIME PRN PRN Reason: Anxiety Last Admin: 02/19/21 20:16 Dose: 25 mg Documented by: Lisinopril (Lisinopril 10 Mg Tablet) 10 mg PO BID [facility]; Protocol Last Admin: 02/24/21 09:23 Dose: 10 mg Documented by: Magnesium Hydroxide (Milk Of Magnesia 30 Ml Oral.Susp) 30 ml PO DAILY PRN PRN Reason: Constipation Magnesium Oxide (Magnesium Oxide 400 Mg Tablet) 400 mg PO DAILY [facility] Last Admin: 02/24/21 09:23 Dose: 400 mg Documented by: Potassium Chloride (Potassium Chloride Er 20 Meq Tab.Er.Prt) 20 meq PO DAILY [facility] Last Admin: 02/24/21 09:22 Dose: 20 meq Documented by: Risperidone (Risperidone 2 Mg Tablet) 2 mg PO BEDTIME [facility] Last Admin: 02/23/21 21:16 Dose: 2 mg Documented by: Trazodone HCl (Trazodone Hcl 50 Mg Tablet) 50 mg PO BEDTIME PRN PRN Reason: Insomnia Vitamin D (Cholecalciferol (Vitamin D3) 25 Mcg Tablet) 25 mcg PO DAILY [facility] Last Admin: 02/24/21 09:22 Dose: 25 mcg Documented by: Allergies Allergies Allergy/AdvReac Type Severity Reaction Status Date / Time No Known Allergies [NKA] Allergy Mild NOT Unverified 11/23/19 14:43 APPLICABLE Assessment & Plan Assessment & Plan (1) Ischemic cardiomyopathy: Status: Acute Code(s): I25.5 - Ischemic cardiomyopathy Assessment and Plan: Severe ischemic cardiomyopathy without any symptoms of congestive heart failure. Blood pressure is much better control now on current medications. Continue the same. Continue neurohormonal modulation with carvedilol and lisinopril which she is tolerating. She is having some head heaviness. However discussed importance of medical therapy to reduce her future cardiovascular events. 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 (2) Coronary artery disease: Status: Acute Code(s): I25.10 - Atherosclerotic heart disease of [place] coronary artery without angina pectoris Assessment and Plan: CAD stable. Continue aspirin and statin therapy. Continue above medication with good blood pressure control. Continue to monitor blood pressure every 12 hours while at the hospital. Will sign of the case. Thank you for allowing us to partake in the care Assessment and Plan: The patient is a 75-year-old female with a long history of schizoaffective disorder admitted for exacerbation of psychosis in the context of discontinuation of Zyprexa. Plan. Continue Risperdal 2 mg at bedtime check EKG try and tease out level of paranoia related to home environment I spent minutes with the patient and/or on the patient floor today, greater than?50% of which was spent counseling/coordinating care. Reason for contiued inpatient stay Substantial Risk for: inability to function and rapid decompensation
[2021-02-24 20:20] VITALS: BP 149/71; PULSE 68
[2021-02-24 20:21] VITALS: BP 149/71; PULSE 68
[2021-02-24] MEDS: risperiDONE 2 MG TABLET PO (20:21)
[2021-02-24] MEDS: Donepezil HCl 5 MG TABLET PO (20:21)
[2021-02-24 20:48] VITALS: BP 149/71; PULSE 68; RESP 18; TEMP 36.4; O2SAT 98
[2021-02-24 23:01] LABS: COVID-19 Test Negative (Negative); IDNOW Serial# 9DD0AD1C
--- NOTE | 2021-02-25 | ECG_ITS ---
Test Reason : qtc prolongnation Blood Pressure : / mmHG Vent. Rate : 063 BPM Atrial Rate : 063 BPM P-R Int : 150 ms QRS Dur : 090 ms QT Int : 440 ms P-R-T Axes : 063 065 126 degrees QTc Int : 450 ms Normal sinus rhythm Possible Left atrial enlargement Minimal voltage criteria for LVH, may be normal variant ( Sokolow-Mcintosh ) Cannot rule out Anteroseptal infarct (cited on or before 09-FEB-2021) T wave abnormality, consider lateral ischemia Abnormal ECG When compared with ECG of 13-FEB-2021 23:35, No significant changes seen Referred By: Heide Mota Electronically Signed By:TOBY GUY
[2021-02-25 06:00] VITALS: BP 129/69; PULSE 66; TEMP 36.6; O2SAT 99
[2021-02-25 08:33] VITALS: BP 129/69
[2021-02-25] MEDS: Aspirin 81 MG TAB.CHEW PO (08:33)
[2021-02-25] MEDS: lisinopriL 10 MG TABLET PO ×2 (08:33→20:38)
[2021-02-25] MEDS: Magnesium Oxide 400 MG TABLET PO (08:33)
[2021-02-25] MEDS: Cholecalciferol (Vitamin D3) 25 MCG TABLET PO (08:33)
[2021-02-25] MEDS: Clopidogrel Bisulfate 75 MG TABLET PO (08:33)
[2021-02-25] MEDS: carvediloL 12.5 MG TABLET 25 MG PO ×2 (08:33→20:37)
[2021-02-25] MEDS: Potassium Chloride ER 20 MEQ TAB.ER.PRT PO (08:33)
[2021-02-25] MEDS: amLODIPine Besylate 5 MG TABLET PO (08:34)
[2021-02-25] MEDS: Furosemide 40 MG TABLET PO (08:34)
--- NOTE | 2021-02-25 11:05 | P.PNPSI_ITS ---
Subjective Subjective Date of Service: 02/25/21 Reason For Visit: Paranoia, ECG changes Subjective Notes: Conditional Voluntary Interim History: Pt in room. She reports she feels much less anxious than when she came to hospital. She still has some residual paranoia and questions whether people talking about her but she also shows increased insight in that she states she does not think people talk as much about her as she thought they were. She also reports less AH. She reports sleeping and eating well. She is less somatically preoccupied. She denies chest pain, no palpitation, less tired during the day. Per nursing, no behavioral concerns. Pt negative for covid- yesterday- tested due to outbreak. No cough, no SOB, no fever, no sore throat. Medication Compliance: Yes Side effects from medications: No Review of Systems Review of Systems Reports feeling unwell , ?drugged up?. Yes all other systems are reviewed and are negative Constitutional: Reports no additional constitutional complaints Eyes: Reports no additional eye complaints Reports system reviewed and no additional complaints, except as documented, Reports as per HPI and Reports Normal hearing present Cardiovascular: Reports as per HPI and Reports no additional cardiovascular complaints Respiratory: Reports as per HPI and Reports no additional respiratory complaints Gastrointestinal: Reports as per HPI and Reports no additional gastrointestinal complaints Musculoskeletal: Reports as per HPI Skin/Breast: Reports as per HPI Reports as per HPI, Reports Normal hearing present, Reports behavioral changes, Reports confusion and Reports tremor(s) (slight tremor noted right hand) Psychiatric: Reports abnormal sleep pattern, Reports anxiety, Reports behavioral changes, Reports confusion, Reports difficulty concentrating and Reports paranoia Endocrine: Reports no additional endocrine complaints and Reports as per HPI Hematologic/Lymphatic: Reports no additional hematologic/lymphatic complaints and Reports as per HPI Allergic/Immunologic: Reports no additional allergic/immunologic complaints Mental Status Exam Mental Status Exam Narrative: Appearance: casually groomed, fair hygiene in NAD Behavior:guarded psychomotor: resting tremors on right hand Speech:clear, normal rate/rhythm/volume, spontaneous Thought process:mostly linear Thought content:paranoid delusions, worried about ppl talking about her, or anyone trying to hurt her. Mood: anxious Affect: fearful, congruent SI:denies HI:denies VH/AH: AH of ppl telling her she is being poisoned Delusions:paranoid/persecutory delusions Insight/judgment: poor x 2. Memory/cog: alert, oriented x 3. not formally tested. Diagnostics Vital Signs (24Hr): Vital Signs - 24 hr 02/24/21 20:20 02/24/21 20:21 02/24/21 20:48 Temperature 97.6 F Pulse Rate 68 68 68 Respiratory Rate 18 Blood Pressure 149/71 H 149/71 H 149/71 H Pulse Oximetry 98 02/25/21 08:33 Temperature Pulse Rate Respiratory Rate Blood Pressure 129/69 Pulse Oximetry BMI result Body Mass Index 24.5 Labs Results: 02/09/21 16:51 02/17/21 18:10 Labs: Laboratory Results - last 48 hr 02/24/21 22:20 COVID-19 ([facility]) Negative COVID-19 Clin Com See Note Medications Medications Current Medications Acetaminophen (Acetaminophen 325 Mg Tablet) 650 mg PO Q6H PRN PRN Reason: Headache/Pain Mild Scale (1-3) Al Hydroxide/Mg Hydroxide (Magnesium Hydrox/Alum Hydrox 30 Ml Oral.Susp) 30 ml PO Q6H PRN PRN Reason: Heartburn/Nausea Amlodipine Besylate (Amlodipine Besylate 5 Mg Tablet) 5 mg PO DAILY [facility]; Protocol Last Admin: 02/25/21 08:34 Dose: 5 mg Documented by: Aspirin (Aspirin 81 Mg Tab.Chew) 81 mg PO DAILY [facility] Last Admin: 02/25/21 08:33 Dose: 81 mg Documented by: Carvedilol (Carvedilol 12.5 Mg Tablet) 25 mg PO BID [facility]; Protocol Last Admin: 02/25/21 08:33 Dose: 25 mg Documented by: Clopidogrel Bisulfate (Clopidogrel Bisulfate 75 Mg Tablet) 75 mg PO DAILY [facility] Last Admin: 02/25/21 08:33 Dose: 75 mg Documented by: Donepezil HCl (Donepezil Hcl 5 Mg Tablet) 5 mg PO BEDTIME [facility] Last Admin: 02/24/21 20:21 Dose: 5 mg Documented by: Furosemide (Furosemide 40 Mg Tablet) 40 mg PO DAILY [facility]; Protocol Last Admin: 02/25/21 08:34 Dose: 40 mg Documented by: Hydroxyzine HCl (Hydroxyzine Hcl 25 Mg Tablet) 25 mg PO BEDTIME PRN PRN Reason: Anxiety Last Admin: 02/19/21 20:16 Dose: 25 mg Documented by: Lisinopril (Lisinopril 10 Mg Tablet) 10 mg PO BID [facility]; Protocol Last Admin: 02/25/21 08:33 Dose: 10 mg Documented by: Magnesium Hydroxide (Milk Of Magnesia 30 Ml Oral.Susp) 30 ml PO DAILY PRN PRN Reason: Constipation Magnesium Oxide (Magnesium Oxide 400 Mg Tablet) 400 mg PO DAILY [facility] Last Admin: 02/25/21 08:33 Dose: 400 mg Documented by: Potassium Chloride (Potassium Chloride Er 20 Meq Tab.Er.Prt) 20 meq PO DAILY [facility] Last Admin: 02/25/21 08:33 Dose: 20 meq Documented by: Risperidone (Risperidone 2 Mg Tablet) 2 mg PO BEDTIME [facility] Last Admin: 02/24/21 20:21 Dose: 2 mg Documented by: Trazodone HCl (Trazodone Hcl 50 Mg Tablet) 50 mg PO BEDTIME PRN PRN Reason: Insomnia Vitamin D (Cholecalciferol (Vitamin D3) 25 Mcg Tablet) 25 mcg PO DAILY [facility] Last Admin: 02/25/21 08:33 Dose: 25 mcg Documented by: Allergies Allergies Allergy/AdvReac Type Severity Reaction Status Date / Time No Known Allergies [NKA] Allergy Mild NOT Unverified 11/23/19 14:43 APPLICABLE Assessment & Plan Assessment & Plan (1) Ischemic cardiomyopathy: Status: Acute Code(s): I25.5 - Ischemic cardiomyopathy Assessment and Plan: Severe ischemic cardiomyopathy without any symptoms of congestive heart failure. Blood pressure is much better control now on current medications. Continue the same. Continue neurohormonal modulation with carvedilol and lisinopril which she is tolerating. She is having some head heaviness. However discussed importance of medical therapy to reduce her future cardiovascular events. 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 (2) Coronary artery disease: Status: Acute Code(s): I25.10 - Atherosclerotic heart disease of [place] coronary artery without angina pectoris Assessment and Plan: CAD stable. Continue aspirin and statin therapy. Continue above medication with good blood pressure control. Continue to monitor blood pressure every 12 hours while at the hospital. Will sign of the case. Thank you for allowing us to partake in the care (3) Schizoaffective disorder, bipolar type: Status: Acute Code(s): F25.0 - Schizoaffective disorder, bipolar type Assessment and Plan: The patient is a 75-year-old female with a long history of schizoaff ective disorder admitted for exacerbation of psychosis in the context of discontinuation of Zyprexa. Plan. 1. Continue Risperdal 2 mg at bedtime. 2. obtain collateral information 3. aftercare planning. I spent minutes with the patient and/or on the patient floor today, greater than?50% of which was spent counseling/coordinating care. Reason for contiued inpatient stay Substantial Risk for: inability to function
[2021-02-25 19:45] VITALS: BP 140/65; PULSE 68; RESP 18; TEMP 36.6; O2SAT 97
[2021-02-25 20:37] VITALS: BP 140/65; PULSE 68
[2021-02-25 20:38] VITALS: BP 140/65; PULSE 68
[2021-02-25] MEDS: Donepezil HCl 5 MG TABLET PO (20:38)
[2021-02-25] MEDS: risperiDONE 2 MG TABLET PO (20:38)
[2021-02-26 08:00] VITALS: BP 163/79; PULSE 72; RESP 16; TEMP 36.6; O2SAT 95
[2021-02-26 08:36] VITALS: BP 163/79; PULSE 72
[2021-02-26] MEDS: amLODIPine Besylate 5 MG TABLET PO (08:36)
[2021-02-26] MEDS: Potassium Chloride ER 20 MEQ TAB.ER.PRT PO (08:36)
[2021-02-26] MEDS: Aspirin 81 MG TAB.CHEW PO (08:36)
[2021-02-26] MEDS: carvediloL 12.5 MG TABLET 25 MG PO ×2 (08:36→20:11)
[2021-02-26 08:37] VITALS: BP 163/79; PULSE 72
[2021-02-26] MEDS: lisinopriL 10 MG TABLET PO ×2 (08:37→20:12)
[2021-02-26] MEDS: Clopidogrel Bisulfate 75 MG TABLET PO (08:37)
[2021-02-26] MEDS: Magnesium Oxide 400 MG TABLET PO (08:37)
[2021-02-26] MEDS: Furosemide 40 MG TABLET PO (08:38)
[2021-02-26] MEDS: Cholecalciferol (Vitamin D3) 25 MCG TABLET PO (08:38)
--- NOTE | 2021-02-26 10:33 | P.PNPSI_ITS ---
Subjective Subjective Date of Service: 02/26/21 Reason For Visit: Paranoia, ECG changes Subjective Notes: Conditional Voluntary Interim History: Pt presents as less anxious, less somatic concerns. She reports she hears less people talking about her. She is less perseverative on security trying to arrest her. She denies SI/HI. She is less preoccupied about being d rugged. She did think that I was talking to someone about her son who she thought I had said was her brother and not her son. Collateral from son, who reports pt still makes some paranoid statement to him, she is more forthcoming to him than to team. But son does agree that pt is less paranoid overall Per nursing, no behavioral concerns. Pt negative for covid- yesterday- tested due to outbreak. No cough, no SOB, no fever, no sore throat. Review of Systems Review of Systems Reports feeling unwell , ?drugged up?. Yes all other systems are reviewed and are negative Constitutional: Reports no additional constitutional complaints Eyes: Reports no additional eye complaints Reports system reviewed and no additional complaints, except as documented, Reports as per HPI and Reports Normal hearing present Cardiovascular: Reports as per HPI and Reports no additional cardiovascular complaints Respiratory: Reports as per HPI and Reports no additional respiratory complaints Gastrointestinal: Reports as per HPI and Reports no additional gastrointestinal complaints Musculoskeletal: Reports as per HPI Skin/Breast: Reports as per HPI Reports as per HPI, Reports Normal hearing present, Reports behavioral changes, Reports confusion and Reports tremor(s) (slight tremor noted right hand) Psychiatric: Reports abnormal sleep pattern, Reports anxiety, Reports behavioral changes, Reports confusion, Reports difficulty concentrating and Reports paranoia Endocrine: Reports no additional endocrine complaints and Reports as per HPI Hematologic/Lymphatic: Reports no additional hematologic/lymphatic complaints and Reports as per HPI Allergic/Immunologic: Reports no additional allergic/immunologic complaints Mental Status Exam Mental Status Exam Narrative: Appearance: casually groomed, fair hygiene in NAD Behavior:guarded psychomotor: bilat resting tremors- increase since risperidone Speech:clear, normal rate/rhythm/volume, spontaneous Thought process:mostly linear Thought content:paranoid delusions, worried about ppl talking about her, or anyone trying to hurt her. Mood: anxious Affect: fearful, congruent SI:denies HI:denies VH/AH: AH of ppl telling her she is being poisoned Delusions:paranoid/persecutory delusions Insight/judgment: poor x 2. Memory/cog: alert, oriented x 3. not formally tested. Diagnostics Vital Signs (24Hr): Vital Signs - 24 hr 02/25/21 19:45 02/25/21 20:37 02/25/21 20:38 Temperature 97.9 F Pulse Rate 68 68 68 Respiratory Rate 18 Blood Pressure 140/65 H 140/65 H 140/65 H Pulse Oximetry 97 02/26/21 08:00 02/26/21 08:36 02/26/21 08:37 Temperature 98 F Pulse Rate 72 72 72 Respiratory Rate 16 Blood Pressure 163/79 H 163/79 H 163/79 H Pulse Oximetry 95 BMI result Body Mass Index 24.5 Labs Results: 02/09/21 16:51 02/17/21 18:10 Labs: Laboratory Results - last 48 hr 02/24/21 22:20 COVID-19 ([facility]) Negative COVID-19 Clin Com See Note Medications Medications Current Medications Acetaminophen (Acetaminophen 325 Mg Tablet) 650 mg PO Q6H PRN PRN Reason: Headache/Pain Mild Scale (1-3) Al Hydroxide/Mg Hydroxide (Magnesium Hydrox/Alum Hydrox 30 Ml Oral.Susp) 30 ml PO Q6H PRN PRN Reason: Heartburn/Nausea Amlodipine Besylate (Amlodipine Besylate 5 Mg Tablet) 5 mg PO DAILY [facility]; Protocol Last Admin: 02/26/21 08:36 Dose: 5 mg Documented by: Aspirin (Aspirin 81 Mg Tab.Chew) 81 mg PO DAILY [facility] Last Admin: 02/26/21 08:36 Dose: 81 mg Documented by: Carvedilol (Carvedilol 12.5 Mg Tablet) 25 mg PO BID [facility]; Protocol Last Admin: 02/26/21 08:36 Dose: 25 mg Documented by: Clopidogrel Bisulfate (Clopidogrel Bisulfate 75 Mg Tablet) 75 mg PO DAILY [facility] Last Admin: 02/26/21 08:37 Dose: 75 mg Documented by: Donepezil HCl (Donepezil Hcl 5 Mg Tablet) 5 mg PO BEDTIME [facility] Last Admin: 02/25/21 20:38 Dose: 5 mg Documented by: Furosemide (Furosemide 40 Mg Tablet) 40 mg PO DAILY [facility]; Protocol Last Admin: 02/26/21 08:38 Dose: 40 mg Documented by: Hydroxyzine HCl (Hydroxyzine Hcl 25 Mg Tablet) 25 mg PO BEDTIME PRN PRN Reason: Anxiety Last Admin: 02/19/21 20:16 Dose: 25 mg Documented by: Lisinopril (Lisinopril 10 Mg Tablet) 10 mg PO BID [facility]; Protocol Last Admin: 02/26/21 08:37 Dose: 10 mg Documented by: Magnesium Hydroxide (Milk Of Magnesia 30 Ml Oral.Susp) 30 ml PO DAILY PRN PRN Reason: Constipation Magnesium Oxide (Magnesium Oxide 400 Mg Tablet) 400 mg PO DAILY [facility] Last Admin: 02/26/21 08:37 Dose: 400 mg Documented by: Potassium Chloride (Potassium Chloride Er 20 Meq Tab.Er.Prt) 20 meq PO DAILY [facility] Last Admin: 02/26/21 08:36 Dose: 20 meq Documented by: Risperidone (Risperidone 2 Mg Tablet) 2 mg PO BEDTIME [facility] Last Admin: 02/25/21 20:38 Dose: 2 mg Documented by: Trazodone HCl (Trazodone Hcl 50 Mg Tablet) 50 mg PO BEDTIME PRN PRN Reason: Insomnia Vitamin D (Cholecalciferol (Vitamin D3) 25 Mcg Tablet) 25 mcg PO DAILY [facility] Last Admin: 02/26/21 08:38 Dose: 25 mcg Documented by: Allergies Allergies Allergy/AdvReac Type Severity Reaction Status Date / Time No Known Allergies [NKA] Allergy Mild NOT Unverified 11/23/19 14:43 APPLICABLE Assessment & Plan Assessment & Plan (1) Ischemic cardiomyopathy: Status: Acute Code(s): I25.5 - Ischemic cardiomyopathy Assessment and Plan: Severe ischemic cardiomyopathy without any symptoms of congestive heart failure. Blood pressure is much better control now on current medications. Continue the same. Continue neurohormonal modulation with carvedilol and lisinopril which she is tolerating. She is having some head heaviness. However discussed importance of medical therapy to reduce her future cardiovascular events. Can follow up as outpatient with her own marketing support specialist once discharged. (2) Coronary artery disease: Status: Acute Code(s): I25.10 - Atherosclerotic heart disease of [place] coronary artery without angina pectoris Assessment and Plan: CAD stable. Continue aspirin and statin therapy. Continue above medication with good blood pressure control. Continue to monitor blood pressure every 12 hours while at the hospital. Will sign of the case. Thank you for allowing us to partake in the care (3) Schizoaffective disorder, bipolar type: Status: Acute Code(s): F25.0 - Schizoaffective disorder, bipolar type Assessment and Plan: The patient is a 75-year-old female with a long history of schizoaffective disorder admitted for exacerbation of psychosis in the context of discontinuation of Zyprexa. Plan. 1. Continue Risperdal 2 mg at bedtime. 2. obtain collateral information 3. aftercare planning. I spent minutes with the patient and/or on the patient floor today, greater than?50% of which was spent counseling/coordinating care. Reason for contiued inpatient stay Substantial Risk for: inability to function
[2021-02-26 18:00] VITALS: BP 142/68; PULSE 65; RESP 18; TEMP 36.8; O2SAT 96
[2021-02-26 20:11] VITALS: BP 142/68; PULSE 65
[2021-02-26] MEDS: Donepezil HCl 5 MG TABLET PO (20:11)
[2021-02-26] MEDS: risperiDONE 2 MG TABLET PO (20:11)
[2021-02-26 20:12] VITALS: BP 142/68; PULSE 65
[2021-02-27 06:00] VITALS: BP 140/60; PULSE 65; RESP 16; TEMP 36.4; O2SAT 97
[2021-02-27 09:49] VITALS: BP 140/65
[2021-02-27] MEDS: amLODIPine Besylate 5 MG TABLET PO (09:49)
[2021-02-27] MEDS: Cholecalciferol (Vitamin D3) 25 MCG TABLET PO (09:49)
[2021-02-27] MEDS: Potassium Chloride ER 20 MEQ TAB.ER.PRT PO (09:49)
[2021-02-27] MEDS: Magnesium Oxide 400 MG TABLET PO (09:49)
[2021-02-27] MEDS: Clopidogrel Bisulfate 75 MG TABLET PO (09:49)
[2021-02-27] MEDS: lisinopriL 10 MG TABLET PO ×2 (09:49→20:20)
[2021-02-27] MEDS: Aspirin 81 MG TAB.CHEW PO (09:49)
[2021-02-27] MEDS: Furosemide 40 MG TABLET PO (09:49)
[2021-02-27] MEDS: carvediloL 12.5 MG TABLET 25 MG PO ×2 (09:49→20:21)
[2021-02-27 11:40] LABS: COVID-19 Test Negative (Negative)
--- NOTE | 2021-02-27 12:01 | HO.PSYCHPN ---
Subjective Subjective Date of Service: 02/27/21 Reason For Visit: Paranoia, ECG changes Subjective Notes: Conditional Voluntary Interim History: Pt continues to present as less anxious, less somatic concerns. She reports she hears less people talking about her. She is less perseverative on security trying to arrest her. She denies SI/HI. She is less preoccupied about being drugged. She is taking medications as prescribed. no side effects. Per nursing, no behavioral concerns. Reviewed VS- BP slightly elevated but much more under control. Medication Compliance: Yes Side effects from medications: No Review of Systems Review of Systems Reports feeling unwell , ?drugged up?. Yes all other systems are reviewed and are negative Constitutional: Reports no additional constitutional complaints Eyes: Reports no additional eye complaints Reports system reviewed and no additional complaints, except as documented, Reports as per HPI and Reports Normal hearing present Cardiovascular: Reports as per HPI and Reports no additional cardiovascular complaints Respiratory: Reports as per HPI and Reports no additional respiratory complaints Gastrointestinal: Reports as per HPI and Reports no additional gastrointestinal complaints Musculoskeletal: Reports as per HPI Skin/Breast: Reports as per HPI Reports as per HPI, Reports Normal hearing present, Reports behavioral changes, Reports confusion and Reports tremor(s) (slight tremor noted right hand) Psychiatric: Reports abnormal sleep pattern, Reports anxiety, Reports behavioral changes, Reports confusion, Reports difficulty concentrating and Reports paranoia Endocrine: Reports no additional endocrine complaints and Reports as per HPI Hematologic/Lymphatic: Reports no additional hematologic/lymphatic complaints and Reports as per HPI Allergic/Immunologic: Reports no additional allergic/immunologic complaints Mental Status Exam Mental Status Exam Narrative: Appearance: casually groomed, fair hygiene in NAD Behavior:guarded psychomotor: bilat resting tremors- increase since risperidone Speech:clear, normal rate/rhythm/volume, spontaneous Thought process:mostly linear Thought content:paranoid delusions, worried about ppl talking about her, or anyone trying to hurt her. Mood: anxious Affect: fearful, congruent SI:denies HI:denies VH/AH: AH of ppl telling her she is being poisoned Delusions:paranoid/persecutory delusions Insight/judgment: poor x 2. Memory/cog: alert, oriented x 3. not formally tested. Diagnostics Vital Signs (24Hr): Vital Signs - 24 hr 02/26/21 18:00 02/26/21 20:11 02/26/21 20:12 Temperature 98.3 F Pulse Rate 65 65 65 Respiratory Rate 18 Blood Pressure 142/68 H 142/68 H 142/68 H Pulse Oximetry 96 02/27/21 09:49 Temperature Pulse Rate Respiratory Rate Blood Pressure 140/65 H Pulse Oximetry BMI result Body Mass Index 24.5 Labs Results: 02/09/21 16:51 02/17/21 18:10 Labs: Laboratory Results - last 48 hr 02/27/21 11:00 COVID-19 ([facility]) Negative COVID-19 Clin Com See Note Medications Medications Current Medications Acetaminophen (Acetaminophen 325 Mg Tablet) 650 mg PO Q6H PRN PRN Reason: Headache/Pain Mild Scale (1-3) Al Hydroxide/Mg Hydroxide (Magnesium Hydrox/Alum Hydrox 30 Ml Oral.Susp) 30 ml PO Q6H PRN PRN Reason: Heartburn/Nausea Amlodipine Besylate (Amlodipine Besylate 5 Mg Tablet) 5 mg PO DAILY [facility]; Protocol Last Admin: 02/27/21 09:49 Dose: 5 mg Documented by: Aspirin (Aspirin 81 Mg Tab.Chew) 81 mg PO DAILY [facility] Last Admin: 02/27/21 09:49 Dose: 81 mg Documented by: Carvedilol (Carvedilol 12.5 Mg Tablet) 25 mg PO BID [facility]; Protocol Last Admin: 02/27/21 09:49 Dose: 25 mg Documented by: Clopidogrel Bisulfate (Clopidogrel Bisulfate 75 Mg Tablet) 75 mg PO DAILY [facility] Last Admin: 02/27/21 09:49 Dose: 75 mg Documented by: Donepezil HCl (Donepezil Hcl 5 Mg Tablet) 5 mg PO BEDTIME [facility] Last Admin: 02/26/21 20:11 Dose: 5 mg Documented by: Furosemide (Furosemide 40 Mg Tablet) 40 mg PO DAILY [facility]; Protocol Last Admin: 02/27/21 09:49 Dose: 40 mg Documented by: Hydroxyzine HCl (Hydroxyzine Hcl 25 Mg Tablet) 25 mg PO BEDTIME PRN PRN Reason: Anxiety Last Admin: 02/19/21 20:16 Dose: 25 mg Documented by: Lisinopril (Lisinopril 10 Mg Tablet) 10 mg PO BID [facility]; Protocol Last Admin: 02/27/21 09:49 Dose: 10 mg Documented by: Magnesium Hydroxide (Milk Of Magnesia 30 Ml Oral.Susp) 30 ml PO DAILY PRN PRN Reason: Constipation Magnesium Oxide (Magnesium Oxide 400 Mg Tablet) 400 mg PO DAILY [facility] Last Admin: 02/27/21 09:49 Dose: 400 mg Documented by: Potassium Chloride (Potassium Chloride Er 20 Meq Tab.Er.Prt) 20 meq PO DAILY [facility] Last Admin: 02/27/21 09:49 Dose: 20 meq Documented by: Risperidone (Risperidone 2 Mg Tablet) 2 mg PO BEDTIME [facility] Last Admin: 02/26/21 20:11 Dose: 2 mg Documented by: Trazodone HCl (Trazodone Hcl 50 Mg Tablet) 50 mg PO BEDTIME PRN PRN Reason: Insomnia Vitamin D (Cholecalciferol (Vitamin D3) 25 Mcg Tablet) 25 mcg PO DAILY [facility] Last Admin: 02/27/21 09:49 Dose: 25 mcg Documented by: Allergies Allergies Allergy/AdvReac Type Severity Reaction Status Date / Time No Known Allergies [NKA] Allergy Mild NOT Unverified 11/23/19 14:43 APPLICABLE Assessment & Plan Assessment & Plan (1) Ischemic cardiomyopathy: Status: Acute Code(s): I25.5 - Ischemic cardiomyopathy Assessment and Plan: Severe ischemic cardiomyopathy without any symptoms of congestive heart failure. Blood pressure is much better control now on current medications. Continue the same. Continue neurohormonal modulation with carvedilol and lisinopril which she is tolerating. She is having some head heaviness. However discussed importance of medical therapy to reduce her future cardiovascular events. Can follow up as outpatient with her own apprentice painter brush once discharged. (2) Coronary artery disease: Status: Acute Code(s): I25.10 - Atherosclerotic heart disease of [place] coronary artery without angina pectoris Assessment and Plan: CAD stable. Continue aspirin and statin therapy. Continue above medication with good blood pressure control. Continue to monitor blood pressure every 12 hours while at the hospital. Will sign of the case. Thank you for allowing us to partake in the care (3) Schizoaffective disorder, bipolar type: Status: Acute Code(s): F25.0 - Schizoaffective disorder, bipolar type Assessment and Plan: The patient is a 75-year-old female with a long history of schizoaffective disorder admitted for exacerbation of psychosis in the context of discontinuation of Zyprexa. Plan. 1. Continue Risperdal 2 mg at bedtime. 2. obtain collateral information 3. aftercare planning. I spent minutes with the patient and/or on the patient floor today, greater than?50% of which was spent counseling/coordinating care. Reason for contiued inpatient stay Substantial Risk for: inability to function
[2021-02-27 20:20] VITALS: BP 130/66; PULSE 61
[2021-02-27 20:21] VITALS: BP 130/66; PULSE 61
[2021-02-27] MEDS: Donepezil HCl 5 MG TABLET PO (20:21)
[2021-02-27] MEDS: risperiDONE 2 MG TABLET PO (20:21)
[2021-02-27 20:36] VITALS: BP 130/66; PULSE 61; RESP 16; TEMP 36.1; O2SAT 98
[2021-02-28 08:59] VITALS: BP 139/77; PULSE 61; RESP 16; TEMP 36.2; O2SAT 97
[2021-02-28 09:00] VITALS: BP 139/77; PULSE 61
[2021-02-28] MEDS: amLODIPine Besylate 5 MG TABLET PO (09:00)
[2021-02-28] MEDS: Cholecalciferol (Vitamin D3) 25 MCG TABLET PO (09:01)
[2021-02-28] MEDS: Furosemide 40 MG TABLET PO (09:01)
[2021-02-28] MEDS: Potassium Chloride ER 20 MEQ TAB.ER.PRT PO (09:01)
[2021-02-28] MEDS: Aspirin 81 MG TAB.CHEW PO (09:01)
[2021-02-28] MEDS: Magnesium Oxide 400 MG TABLET PO (09:01)
[2021-02-28 09:02] VITALS: BP 139/77; PULSE 61
[2021-02-28] MEDS: carvediloL 12.5 MG TABLET 25 MG PO ×2 (09:02→20:03)
[2021-02-28] MEDS: lisinopriL 10 MG TABLET PO ×2 (09:02→20:03)
[2021-02-28] MEDS: Clopidogrel Bisulfate 75 MG TABLET PO (09:03)
--- NOTE | 2021-02-28 11:01 | HO.PSYCHPN ---
Subjective Subjective Date of Service: 02/28/21 Reason For Visit: Paranoia, ECG changes Subjective Notes: Conditional Voluntary Interim History: Patient was seen and discussed in rounds today. She has been doing better and is less anxious. Some periods of anxiety. She is mostly isolative. No complaints or side effects. Eating and sleeping adequately. SI. No changes were made today Review of Systems Review of Systems Reports feeling unwell , ?drugged up?. Yes all other systems are reviewed and are negative Constitutional: Reports no additional constitutional complaints Eyes: Reports no additional eye complaints Reports system reviewed and no additional complaints, except as documented, Reports as per HPI and Reports Normal hearing present Cardiovascular: Reports as per HPI and Reports no additional cardiovascular complaints Respiratory: Reports as per HPI and Reports no additional respiratory complaints Gastrointestinal: Reports as per HPI and Reports no additional gastrointestinal complaints Musculoskeletal: Reports as per HPI Skin/Breast: Reports as per HPI Reports as per HPI, Reports Normal hearing present, Reports behavioral changes, Reports confusion and Reports tremor(s) (slight tremor noted right hand) Psychiatric: Reports abnormal sleep pattern, Reports anxiety, Reports behavioral changes, Reports confusion, Reports difficulty concentrating and Reports paranoia Endocrine: Reports no additional endocrine complaints and Reports as per HPI Hematologic/Lymphatic: Reports no additional hematologic/lymphatic complaints and Reports as per HPI Allergic/Immunologic: Reports no additional allergic/immunologic complaints Diagnostics Vital Signs (24Hr): Vital Signs - 24 hr 02/27/21 20:20 02/27/21 20:21 02/27/21 20:36 Temperature 97 F Pulse Rate 61 61 61 Respiratory Rate 16 Blood Pressure 130/66 130/66 130/66 Pulse Oximetry 98 02/28/21 08:59 02/28/21 09:00 02/28/21 09:02 Temperature 97.2 F Pulse Rate 61 61 61 Respiratory Rate 16 Blood Pressure 139/77 139/77 139/77 Pulse Oximetry 97 BMI result Body Mass Index 24.5 Labs Results: 02/09/21 16:51 02/17/21 18:10 Labs: Laboratory Results - last 48 hr 02/27/21 11:00 COVID-19 ([facility]) Negative COVID-19 Clin Com See Note Medications Medications Current Medications Acetaminophen (Acetaminophen 325 Mg Tablet) 650 mg PO Q6H PRN PRN Reason: Headache/Pain Mild Scale (1-3) Al Hydroxide/Mg Hydroxide (Magnesium Hydrox/Alum Hydrox 30 Ml Oral.Susp) 30 ml PO Q6H PRN PRN Reason: Heartburn/Nausea Amlodipine Besylate (Amlodipine Besylate 5 Mg Tablet) 5 mg PO DAILY [facility]; Protocol Last Admin: 02/28/21 09:00 Dose: 5 mg Documented by: Aspirin (Aspirin 81 Mg Tab.Chew) 81 mg PO DAILY [facility] Last Admin: 02/28/21 09:01 Dose: 81 mg Documented by: Carvedilol (Carvedilol 12.5 Mg Tablet) 25 mg PO BID [facility]; Protocol Last Admin: 02/28/21 09:02 Dose: 25 mg Documented by: Clopidogrel Bisulfate (Clopidogrel Bisulfate 75 Mg Tablet) 75 mg PO DAILY [facility] Last Admin: 02/28/21 09:03 Dose: 75 mg Documented by: Donepezil HCl (Donepezil Hcl 5 Mg Tablet) 5 mg PO BEDTIME [facility] Last Admin: 02/27/21 20:21 Dose: 5 mg Documented by: Furosemide (Furosemide 40 Mg Tablet) 40 mg PO DAILY [facility]; Protocol Last Admin: 02/28/21 09:01 Dose: 40 mg Documented by: Hydroxyzine HCl (Hydroxyzine Hcl 25 Mg Tablet) 25 mg PO BEDTIME PRN PRN Reason: Anxiety Last Admin: 02/19/21 20:16 Dose: 25 mg Documented by: Lisinopril (Lisinopril 10 Mg Tablet) 10 mg PO BID [facility]; Protocol Last Admin: 02/28/21 09:02 Dose: 10 mg Documented by: Magnesium Hydroxide (Milk Of Magnesia 30 Ml Oral.Susp) 30 ml PO DAILY PRN PRN Reason: Constipation Magnesium Oxide (Magnesium Oxide 400 Mg Tablet) 400 mg PO DAILY [facility] Last Admin: 02/28/21 09:01 Dose: 400 mg Documented by: Potassium Chloride (Potassium Chloride Er 20 Meq Tab.Er.Prt) 20 meq PO DAILY [facility] Last Admin: 02/28/21 09:01 Dose: 20 meq Documented by: Risperidone (Risperidone 2 Mg Tablet) 2 mg PO BEDTIME [facility] Last Admin: 02/27/21 20:21 Dose: 2 mg Documented by: Trazodone HCl (Trazodone Hcl 50 Mg Tablet) 50 mg PO BEDTIME PRN PRN Reason: Insomnia Vitamin D (Cholecalciferol (Vitamin D3) 25 Mcg Tablet) 25 mcg PO DAILY [facility] Last Admin: 02/28/21 09:01 Dose: 25 mcg Documented by: Allergies Allergies Allergy/AdvReac Type Severity Reaction Status Date / Time No Known Allergies [NKA] Allergy Mild NOT Unverified 11/23/19 14:43 APPLICABLE Assessment & Plan Assessment & Plan (1) Ischemic cardiomyopathy: Status: Acute Code(s): I25.5 - Ischemic cardiomyopathy Assessment and Plan: Severe ischemic cardiomyopathy without any symptoms of congestive heart failure. Blood pressure is much better control now on current medications. Continue the same. Continue neurohormonal modulation with carvedilol and lisinopril which she is tolerating. She is having some head heaviness. However discussed importance of medical therapy to reduce her future cardiovascular events. Can follow up as outpatient with her own warehouse incentive selector once discharged. 02/28: Continue current regimen and plans with no changes today (2) Coronary artery disease: Status: Acute Code(s): I25.10 - Atherosclerotic heart disease of [place] coronary artery without angina pectoris Assessment and Plan: CAD stable. Continue aspirin and statin therapy. Continue above medication with good blood pressure control. Continue to monitor blood pressure every 12 hours while at the hospital. Will sign of the case. Thank you for allowing us to partake in the care (3) Schizoaffective disorder, bipolar type: Status: Acute Code(s): F25.0 - Schizoaffective disorder, bipolar type Assessment and Plan: The patient is a 75-year-old female with a long history of schizoaffective disorder admitted for exacerbation of psychosis in the context of discontinuation of Zyprexa. Plan. 1. Continue Risperdal 2 mg at bedtime. 2. obtain collateral information 3. aftercare planning. I spent minutes with the patient and/or on the patient floor today, greater than?50% of which was spent counseling/coordinating care. Reason for contiued inpatient stay Substantial Risk for: other
[2021-02-28] MEDS: Donepezil HCl 5 MG TABLET PO (19:57)
[2021-02-28] MEDS: risperiDONE 2 MG TABLET PO (19:58)
[2021-02-28 20:02] VITALS: BP 134/70; PULSE 67; RESP 18; TEMP 36.8; O2SAT 96
[2021-03-01 06:00] VITALS: BP 142/67; PULSE 69; TEMP 36.2; O2SAT 95
[2021-03-01 08:19] VITALS: BP 142/67; PULSE 69
[2021-03-01] MEDS: carvediloL 12.5 MG TABLET 25 MG PO ×2 (08:19→20:20)
[2021-03-01 08:20] VITALS: BP 142/67; PULSE 69
[2021-03-01] MEDS: Cholecalciferol (Vitamin D3) 25 MCG TABLET PO (08:20)
[2021-03-01] MEDS: Potassium Chloride ER 20 MEQ TAB.ER.PRT PO (08:20)
[2021-03-01] MEDS: Aspirin 81 MG TAB.CHEW PO (08:20)
[2021-03-01] MEDS: lisinopriL 10 MG TABLET PO ×2 (08:20→20:21)
[2021-03-01] MEDS: Clopidogrel Bisulfate 75 MG TABLET PO (08:20)
[2021-03-01] MEDS: amLODIPine Besylate 5 MG TABLET PO (08:20)
[2021-03-01] MEDS: Furosemide 40 MG TABLET PO (08:21)
[2021-03-01] MEDS: Magnesium Oxide 400 MG TABLET PO (08:21)
--- NOTE | 2021-03-01 10:09 | HO.PSYCHPN ---
Subjective Subjective Date of Service: 03/01/21 Reason For Visit: Paranoia, ECG changes Subjective Notes: Conditional Voluntary Interim History: Patient was seen and discussed in rounds today. Records reviewed. She has been stable and is doing fairly well. Eating and sleeping adequately. Compliant with treatment. No complaints or side effects. No changes were made today Review of Systems Review of Systems Yes all other systems are reviewed and are negative Constitutional: Reports no additional constitutional complaints Eyes: Reports no additional eye complaints Reports system reviewed and no additional complaints, except as documented, Reports as per HPI and Reports Normal hearing present Cardiovascular: Reports as per HPI and Reports no additional cardiovascular complaints Respiratory: Reports as per HPI and Reports no additional respiratory complaints Gastrointestinal: Reports as per HPI and Reports no additional gastrointestinal complaints Musculoskeletal: Reports as per HPI Skin/Breast: Reports as per HPI Reports as per HPI, Reports Normal hearing present, Reports behavioral changes, Reports confusion and Reports tremor(s) (slight tremor noted right hand) Psychiatric: Reports abnormal sleep pattern, Reports anxiety, Reports behavioral changes, Reports confusion, Reports difficulty concentrating and Reports paranoia Endocrine: Reports no additional endocrine complaints and Reports as per HPI Hematologic/Lymphatic: Reports no additional hematologic/lymphatic complaints and Reports as per HPI Allergic/Immunologic: Reports no additional allergic/immunologic complaints Diagnostics Vital Signs (24Hr): Vital Signs - 24 hr 02/28/21 20:02 03/01/21 06:00 03/01/21 08:19 Temperature 98.3 F 97.1 F Pulse Rate 67 69 69 Respiratory Rate 18 Blood Pressure 134/70 142/67 H 142/67 H Pulse Oximetry 96 95 03/01/21 08:20 Temperature Pulse Rate 69 Respiratory Rate Blood Pressure 142/67 H Pulse Oximetry BMI result Body Mass Index 24.5 Labs Results: 02/09/21 16:51 02/17/21 18:10 Labs: Laboratory Results - last 48 hr 02/27/21 11:00 COVID-19 ([facility]) Negative COVID-19 Clin Com See Note Medications Medications Current Medications Acetaminophen (Acetaminophen 325 Mg Tablet) 650 mg PO Q6H PRN PRN Reason: Headache/Pain Mild Scale (1-3) Al Hydroxide/Mg Hydroxide (Magnesium Hydrox/Alum Hydrox 30 Ml Oral.Susp) 30 ml PO Q6H PRN PRN Reason: Heartburn/Nausea Amlodipine Besylate (Amlodipine Besylate 5 Mg Tablet) 5 mg PO DAILY [facility]; Protocol Last Admin: 03/01/21 08:20 Dose: 5 mg Documented by: Aspirin (Aspirin 81 Mg Tab.Chew) 81 mg PO DAILY [facility] Last Admin: 03/01/21 08:20 Dose: 81 mg Documented by: Carvedilol (Carvedilol 12.5 Mg Tablet) 25 mg PO BID [facility]; Protocol Last Admin: 03/01/21 08:19 Dose: 25 mg Documented by: Clopidogrel Bisulfate (Clopidogrel Bisulfate 75 Mg Tablet) 75 mg PO DAILY [facility] Last Admin: 03/01/21 08:20 Dose: 75 mg Documented by: Donepezil HCl (Donepezil Hcl 5 Mg Tablet) 5 mg PO BEDTIME [facility] Last Admin: 02/28/21 19:57 Dose: 5 mg Documented by: Furosemide (Furosemide 40 Mg Tablet) 40 mg PO DAILY [facility]; Protocol Last Admin: 03/01/21 08:21 Dose: 40 mg Documented by: Hydroxyzine HCl (Hydroxyzine Hcl 25 Mg Tablet) 25 mg PO BEDTIME PRN PRN Reason: Anxiety Last Admin: 02/19/21 20:16 Dose: 25 mg Documented by: Lisinopril (Lisinopril 10 Mg Tablet) 10 mg PO BID [facility]; Protocol Last Admin: 03/01/21 08:20 Dose: 10 mg Documented by: Magnesium Hydroxide (Milk Of Magnesia 30 Ml Oral.Susp) 30 ml PO DAILY PRN PRN Reason: Constipation Magnesium Oxide (Magnesium Oxide 400 Mg Tablet) 400 mg PO DAILY [facility] Last Admin: 03/01/21 08:21 Dose: 400 mg Documented by: Potassium Chloride (Potassium Chloride Er 20 Meq Tab.Er.Prt) 20 meq PO DAILY [facility] Last Admin: 03/01/21 08:20 Dose: 20 meq Documented by: Risperidone (Risperidone 2 Mg Tablet) 2 mg PO BEDTIME [facility] Last Admin: 02/28/21 19:58 Dose: 2 mg Documented by: Trazodone HCl (Trazodone Hcl 50 Mg Tablet) 50 mg PO BEDTIME PRN PRN Reason: Insomnia Vitamin D (Cholecalciferol (Vitamin D3) 25 Mcg Tablet) 25 mcg PO DAILY [facility] Last Admin: 03/01/21 08:20 Dose: 25 mcg Documented by: Allergies Allergies Allergy/AdvReac Type Severity Reaction Status Date / Time No Known Allergies [NKA] Allergy Mild NOT Unverified 11/23/19 14:43 APPLICABLE Assessment & Plan Assessment & Plan (1) Ischemic cardiomyopathy: Status: Acute Code(s): I25.5 - Ischemic cardiomyopathy Assessment and Plan: Severe ischemic cardiomyopathy without any symptoms of congestive heart failure. Blood pressure is much better control now on current medications. Continue the same. Continue neurohormonal modulation with carvedilol and lisinopril which she is tolerating. She is having some head heaviness. However discussed importance of medical therapy to reduce her future cardiovascular events. 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 02/28: Continue current regimen and plans with no changes today 03/01: Continue plans and current regiment (2) Coronary artery disease: Status: Acute Code(s): I25.10 - Atherosclerotic heart disease of [place] coronary artery without angina pectoris Assessment and Plan: CAD stable. Continue aspirin and statin therapy. Continue above medication with good blood pressure control. Continue to monitor blood pressure every 12 hours while at the hospital. Will sign of the case. Thank you for allowing us to partake in the care (3) Schizoaffective disorder, bipolar type: Status: Acute Code(s): F25.0 - Schizoaffective disorder, bipolar type Assessment and Plan: The patient is a 75-year-old female with a long history of schizoaffective disorder admitted for exacerbation of psychosis in the context of discontinuation of Zyprexa. Plan. 1. Continue Risperdal 2 mg at bedtime. 2. obtain collateral information 3. aftercare planning. I spent minutes with the patient and/or on the patient floor today, greater than?50% of which was spent counseling/coordinating care. Reason for contiued inpatient stay Substantial Risk for: other
[2021-03-01 18:00] VITALS: BP 137/66; PULSE 77; RESP 18; TEMP 36.6; O2SAT 95
[2021-03-01 20:20] VITALS: BP 137/66; PULSE 77
[2021-03-01 20:21] VITALS: BP 137/66; PULSE 77
[2021-03-01] MEDS: risperiDONE 2 MG TABLET PO (20:21)
[2021-03-01] MEDS: Donepezil HCl 5 MG TABLET PO (20:21)
[2021-03-02 06:00] VITALS: BP 131/71; PULSE 71; TEMP 36.9; O2SAT 97
[2021-03-02 09:23] VITALS: BP 131/71; PULSE 71
[2021-03-02] MEDS: Clopidogrel Bisulfate 75 MG TABLET PO (09:23)
[2021-03-02] MEDS: Cholecalciferol (Vitamin D3) 25 MCG TABLET PO (09:23)
[2021-03-02] MEDS: amLODIPine Besylate 5 MG TABLET PO (09:23)
[2021-03-02] MEDS: Furosemide 40 MG TABLET PO (09:23)
[2021-03-02] MEDS: Aspirin 81 MG TAB.CHEW PO (09:23)
[2021-03-02] MEDS: Magnesium Oxide 400 MG TABLET PO (09:23)
[2021-03-02] MEDS: lisinopriL 10 MG TABLET PO ×2 (09:23→23:18)
[2021-03-02] MEDS: Potassium Chloride ER 20 MEQ TAB.ER.PRT PO (09:23)
[2021-03-02] MEDS: carvediloL 12.5 MG TABLET 25 MG PO ×2 (09:23→20:28)
--- NOTE | 2021-03-02 11:08 | HO.PSYCHPN ---
Subjective Subjective Date of Service: 03/02/21 Reason For Visit: Paranoia, ECG changes Subjective Notes: Conditional Voluntary Interim History: Patient was seen and discussed in rounds. She has been stable and generally isolative in her room. She had some questions about her medications, specifically Risperdal which we discussed. She is compliant. No complaints. No side effects. Sleeping and eating adequately. No changes were made today. Medication Compliance: Yes Side effects from medications: No Review of Systems Review of Systems Yes all other systems are reviewed and are negative Constitutional: Reports no additional constitutional complaints Eyes: Reports no additional eye complaints Reports system reviewed and no additional complaints, except as documented, Reports as per HPI and Reports Normal hearing present Cardiovascular: Reports as per HPI and Reports no additional cardiovascular complaints Respiratory: Reports as per HPI and Reports no additional respiratory complaints Gastrointestinal: Reports as per HPI and Reports no additional gastrointestinal complaints Musculoskeletal: Reports as per HPI Skin/Breast: Reports as per HPI Reports as per HPI, Reports Normal hearing present, Reports behavioral changes, Reports confusion and Reports tremor(s) (slight tremor noted right hand) Psychiatric: Reports abnormal sleep pattern, Reports anxiety, Reports behavioral changes, Reports confusion, Reports difficulty concentrating and Reports paranoia Endocrine: Reports no additional endocrine complaints and Reports as per HPI Hematologic/Lymphatic: Reports no additional hematologic/lymphatic complaints and Reports as per HPI Allergic/Immunologic: Reports no additional allergic/immunologic complaints Diagnostics Vital Signs (24Hr): Vital Signs - 24 hr 03/01/21 18:00 03/01/21 20:20 03/01/21 20:21 Temperature 98 F Pulse Rate 77 77 77 Respiratory Rate 18 Blood Pressure 137/66 137/66 137/66 Pulse Oximetry 95 03/02/21 06:00 03/02/21 09:23 Temperature 98.4 F Pulse Rate 71 71 Respiratory Rate Blood Pressure 131/71 131/71 Pulse Oximetry 97 BMI result Body Mass Index 24.5 Labs Results: 02/09/21 16:51 02/17/21 18:10 Medications Medications Current Medications Acetaminophen (Acetaminophen 325 Mg Tablet) 650 mg PO Q6H PRN PRN Reason: Headache/Pain Mild Scale (1-3) Al Hydroxide/Mg Hydroxide (Magnesium Hydrox/Alum Hydrox 30 Ml Oral.Susp) 30 ml PO Q6H PRN PRN Reason: Heartburn/Nausea Amlodipine Besylate (Amlodipine Besylate 5 Mg Tablet) 5 mg PO DAILY [facility]; Protocol Last Admin: 03/02/21 09:23 Dose: 5 mg Documented by: Aspirin (Aspirin 81 Mg Tab.Chew) 81 mg PO DAILY [facility] Last Admin: 03/02/21 09:23 Dose: 81 mg Documented by: Carvedilol (Carvedilol 12.5 Mg Tablet) 25 mg PO BID [facility]; Protocol Last Admin: 03/02/21 09:23 Dose: 25 mg Documented by: Clopidogrel Bisulfate (Clopidogrel Bisulfate 75 Mg Tablet) 75 mg PO DAILY [facility] Last Admin: 03/02/21 09:23 Dose: 75 mg Documented by: Donepezil HCl (Donepezil Hcl 5 Mg Tablet) 5 mg PO BEDTIME [facility] Last Admin: 03/01/21 20:21 Dose: 5 mg Documented by: Furosemide (Furosemide 40 Mg Tablet) 40 mg PO DAILY [facility]; Protocol Last Admin: 03/02/21 09:23 Dose: 40 mg Documented by: Hydroxyzine HCl (Hydroxyzine Hcl 25 Mg Tablet) 25 mg PO BEDTIME PRN PRN Reason: Anxiety Last Admin: 02/19/21 20:16 Dose: 25 mg Documented by: Lisinopril (Lisinopril 10 Mg Tablet) 10 mg PO BID [facility]; Protocol Last Admin: 03/02/21 09:23 Dose: 10 mg Documented by: Magnesium Hydroxide (Milk Of Magnesia 30 Ml Oral.Susp) 30 ml PO DAILY PRN PRN Reason: Constipation Magnesium Oxide (Magnesium Oxide 400 Mg Tablet) 400 mg PO DAILY [facility] Last Admin: 03/02/21 09:23 Dose: 400 mg Documented by: Potassium Chloride (Potassium Chloride Er 20 Meq Tab.Er.Prt) 20 meq PO DAILY [facility] Last Admin: 03/02/21 09:23 Dose: 20 meq Documented by: Risperidone (Risperidone 2 Mg Tablet) 2 mg PO BEDTIME [facility] Last Admin: 03/01/21 20:21 Dose: 2 mg Documented by: Trazodone HCl (Trazodone Hcl 50 Mg Tablet) 50 mg PO BEDTIME PRN PRN Reason: Insomnia Vitamin D (Cholecalciferol (Vitamin D3) 25 Mcg Tablet) 25 mcg PO DAILY [facility] Last Admin: 03/02/21 09:23 Dose: 25 mcg Documented by: Allergies Allergies Allergy/AdvReac Type Severity Reaction Status Date / Time No Known Allergies [NKA] Allergy Mild NOT Unverified 11/23/19 14:43 APPLICABLE Assessment & Plan Assessment & Plan (1) Ischemic cardiomyopathy: Status: Acute Code(s): I25.5 - Ischemic cardiomyopathy Assessment and Plan: Severe ischemic cardiomyopathy without any symptoms of congestive heart failure. Blood pressure is much better control now on current medications. Continue the same. Continue neurohormonal modulation with carvedilol and lisinopril which she is tolerating. She is having some head heaviness. However discussed importance of medical therapy to reduce her future cardiovascular events. 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 02/28: Continue current regimen and plans with no changes today 03/01: Continue plans and current regiment 03/02: Maintain current regimen and plans with no changes today (2) Coronary artery disease: Status: Acute Code(s): I25.10 - Atherosclerotic heart disease of [place] coronary artery without angina pectoris Assessment and Plan: CAD stable. Continue aspirin and statin therapy. Continue above medication with good blood pressure control. Continue to monitor blood pressure every 12 hours while at the hospital. Will sign of the case. Thank you for allowing us to partake in the care (3) Schizoaffective disorder, bipolar type: Status: Acute Code(s): F25.0 - Schizoaffective disorder, bipolar type Assessment and Plan: The patient is a 75-year-old female with a long history of schizoaffective disorder admitted for exacerbation of psychosis in the context of discontinuation of Zyprexa. Plan. 1. Continue Risperdal 2 mg at bedtime. 2. obtain collateral information 3. aftercare planning. I spent minutes with the patient and/or on the patient floor today, greater than?50% of which was spent counseling/coordinating care. Reason for contiued inpatient stay Substantial Risk for: other
[2021-03-02 18:00] VITALS: BP 124/91; PULSE 73; RESP 17; TEMP 37.1; O2SAT 95
[2021-03-02 20:28] VITALS: BP 131/60; PULSE 70
[2021-03-02] MEDS: risperiDONE 2 MG TABLET PO (20:28)
[2021-03-02] MEDS: Donepezil HCl 5 MG TABLET PO (20:31)
[2021-03-02 23:18] VITALS: BP 131/60; PULSE 70
[2021-03-03] VITALS (8 sets, daily range): BP systolic 114–152; BP diastolic 64–76; PULSE 65–105; RESP 15–18; TEMP 36.9–37.4; O2SAT 95–97
[2021-03-03] MEDS: carvediloL 12.5 MG TABLET 25 MG PO ×2 (08:13→22:02)
[2021-03-03] MEDS: Potassium Chloride ER 20 MEQ TAB.ER.PRT PO (08:14)
[2021-03-03] MEDS: lisinopriL 10 MG TABLET PO ×2 (08:15→22:22)
[2021-03-03] MEDS: Magnesium Oxide 400 MG TABLET PO (08:15)
[2021-03-03] MEDS: Furosemide 40 MG TABLET PO (08:15)
[2021-03-03] MEDS: Clopidogrel Bisulfate 75 MG TABLET PO (08:15)
[2021-03-03] MEDS: Cholecalciferol (Vitamin D3) 25 MCG TABLET PO (08:15)
[2021-03-03] MEDS: Aspirin 81 MG TAB.CHEW PO (08:16)
[2021-03-03] MEDS: amLODIPine Besylate 5 MG TABLET PO (08:16)
[2021-03-03 09:57] LABS: COVID-19 Test Positive (Negative)
[2021-03-03] MEDS: Loperamide HCl 2 MG CAPSULE 4 MG PO (14:27)
--- NOTE | 2021-03-03 16:19 | P.PNPSI_ITS ---
Subjective Subjective Date of Service: 03/03/21 Reason For Visit: Paranoia, ECG changes Subjective Notes: Conditional Voluntary Interim History: The nursing staff reported the patient has a new cough and she was tested positive to COVID 19. Besides her cough and mild diarrhea, only 1 camera today, she feels fine. On interview, the patient denies new symptoms no evidence of psychosis she admitted that slight tremor on her left hand. She is scheduled for discharge tomorrow and she is fully aware that she has to quarantine herself and continue the protocol of COVID-19 Mental Status Exam Mental Status Exam Patient Appearance: Well Grooomed Patient Orientation: Person Level of Consciousness: Awake Patient Behavior: Cooperative Mood Description: Constricted Affect Description: Constricted Patient Cognition Impaired: No Ability to Follow Directions: Good Speech Pattern: Clear Memory Description: Intact Hallucinations: None Delusions: Paranoid Ideation Thought Process: Linear Thought Content: positive for Circumstantial Judgement: Fair Diagnostics Vital Signs (24Hr): Vital Signs - 24 hr 03/02/21 18:00 03/02/21 20:28 03/02/21 23:18 Temperature 98.8 F Pulse Rate 73 70 70 Respiratory Rate 17 Blood Pressure 124/91 H 131/60 131/60 Pulse Oximetry 95 03/03/21 08:12 03/03/21 08:13 03/03/21 08:15 Temperature 98.4 F Pulse Rate 78 78 78 Respiratory Rate 18 Blood Pressure 152/67 H 152/67 H 152/67 H Pulse Oximetry 95 03/03/21 08:16 03/03/21 14:40 Temperature 99.3 F Pulse Rate 78 65 Respiratory Rate 15 Blood Pressure 152/67 H 114/64 Pulse Oximetry 97 BMI result Body Mass Index 24.5 Labs Results: 02/09/21 16:51 02/17/21 18:10 Labs: Laboratory Results - last 48 hr 03/03/21 09:36 COVID-19 ([facility]) Positive A COVID-19 Clin Com See Note Medications Medications Current Medications Acetaminophen (Acetaminophen 325 Mg Tablet) 650 mg PO Q6H PRN PRN Reason: Headache/Pain Mild Scale (1-3) Al Hydroxide/Mg Hydroxide (Magnesium Hydrox/Alum Hydrox 30 Ml Oral.Susp) 30 ml PO Q6H PRN PRN Reason: Heartburn/Nausea Amlodipine Besylate (Amlodipine Besylate 5 Mg Tablet) 5 mg PO DAILY JOHNATHAN; Protocol Last Admin: 03/03/21 08:16 Dose: 5 mg Documented by: Aspirin (Aspirin 81 Mg Tab.Chew) 81 mg PO DAILY [facility] Last Admin: 03/03/21 08:16 Dose: 81 mg Documented by: Carvedilol (Carvedilol 12.5 Mg Tablet) 25 mg PO BID [facility]; Protocol Last Admin: 03/03/21 08:13 Dose: 25 mg Documented by: Clopidogrel Bisulfate (Clopidogrel Bisulfate 75 Mg Tablet) 75 mg PO DAILY [facility] Last Admin: 03/03/21 08:15 Dose: 75 mg Documented by: Donepezil HCl (Donepezil Hcl 5 Mg Tablet) 5 mg PO BEDTIME JOHNATHAN Last Admin: 03/02/21 20:31 Dose: 5 mg Documented by: Furosemide (Furosemide 40 Mg Tablet) 40 mg PO DAILY [facility]; Protocol Last Admin: 03/03/21 08:15 Dose: 40 mg Documented by: Hydroxyzine HCl (Hydroxyzine Hcl 25 Mg Tablet) 25 mg PO BEDTIME PRN PRN Reason: Anxiety Last Admin: 02/19/21 20:16 Dose: 25 mg Documented by: Lisinopril (Lisinopril 10 Mg Tablet) 10 mg PO BID [facility]; Protocol Last Admin: 03/03/21 08:15 Dose: 10 mg Documented by: Loperamide HCl (Loperamide Hcl 2 Mg Capsule) 4 mg PO Q4H PRN PRN Reason: Diarrhea Last Admin: 03/03/21 14:27 Dose: 4 mg Documented by: Magnesium Hydroxide (Milk Of Magnesia 30 Ml Oral.Susp) 30 ml PO DAILY PRN PRN Reason: Constipation Magnesium Oxide (Magnesium Oxide 400 Mg Tablet) 400 mg PO DAILY [facility] Last Admin: 03/03/21 08:15 Dose: 400 mg Documented by: Potassium Chloride (Potassium Chloride Er 20 Meq Tab.Er.Prt) 20 meq PO DAILY [facility] Last Admin: 03/03/21 08:14 Dose: 20 meq Documented by: Risperidone (Risperidone 2 Mg Tablet) 2 mg PO BEDTIME [facility] Last Admin: 03/02/21 20:28 Dose: 2 mg Documented by: Trazodone HCl (Trazodone Hcl 50 Mg Tablet) 50 mg PO BEDTIME PRN PRN Reason: Insomnia Vitamin D (Cholecalciferol (Vitamin D3) 25 Mcg Tablet) 25 mcg PO DAILY [facility] Last Admin: 03/03/21 08:15 Dose: 25 mcg Documented by: Allergies Allergies Allergy/AdvReac Type Severity Reaction Status Date / Time No Known Allergies [NKA] Allergy Mild NOT Unverified 11/23/19 14:43 APPLICABLE Assessment & Plan Assessment & Plan (1) Ischemic cardiomyopathy: Status: Acute Code(s): I25.5 - Ischemic cardiomyopathy Assessment and Plan: Severe ischemic cardiomyopathy without any symptoms of congestive heart failure. Blood pressure is much better control now on current medications. Continue the same. Continue neurohormonal modulation with carvedilol and lisinopril which she is tolerating. She is having some head heaviness. However discussed importance of medical therapy to reduce her future cardiovascular events. 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 Plan: Discharge tomorrow (2) Coronary artery disease: Status: Acute Code(s): I25.10 - Atherosclerotic heart disease of [place] coronary artery without angina pectoris Assessment and Plan: CAD stable. Continue aspirin and statin therapy. Continue above medication with good blood pressure control. Continue to monitor blood pressure every 12 hours while at the hospital. Will sign of the case. Thank you for allowing us to partake in the care (3) Schizoaffective disorder, bipolar type: Status: Acute Code(s): F25.0 - Schizoaffective disorder, bipolar type Assessment and Plan: The patient is a 75-year-old female with a long history of schizoaffective disorder admitted for exacerbation of psychosis in the context of discontinuation of Zyprexa. Plan. 1. Continue Risperdal 2 mg at bedtime. 2. obtain collateral information 3. aftercare planning. I spent minutes with the patient and/or on the patient floor today, greater than?50% of which was spent counseling/coordinating care. Reason for contiued inpatient stay Substantial Risk for: inability to function and rapid decompensation
[2021-03-03] MEDS: risperiDONE 2 MG TABLET PO (22:00)
[2021-03-03] MEDS: Donepezil HCl 5 MG TABLET PO (22:00)
[2021-03-04 01:04] VITALS: BP 129/85; PULSE 65; RESP 17; TEMP 36.1; O2SAT 95
[2021-03-04 05:17] VITALS: BP 129/78; PULSE 74; RESP 18; TEMP 36.7; O2SAT 94
[2021-03-04 06:00] VITALS: BP 124/58; PULSE 69; RESP 16; TEMP 37.6; O2SAT 96
[2021-03-04] MEDS: Potassium Chloride ER 20 MEQ TAB.ER.PRT PO (10:05)
[2021-03-04] MEDS: Clopidogrel Bisulfate 75 MG TABLET PO (10:05)
[2021-03-04 10:06] VITALS: BP 124/58; PULSE 69
[2021-03-04] MEDS: Cholecalciferol (Vitamin D3) 25 MCG TABLET PO (10:06)
[2021-03-04] MEDS: lisinopriL 10 MG TABLET PO (10:06)
[2021-03-04] MEDS: Aspirin 81 MG TAB.CHEW PO (10:06)
[2021-03-04] MEDS: Magnesium Oxide 400 MG TABLET PO (10:06)
[2021-03-04 10:07] VITALS: BP 124/58; PULSE 69
[2021-03-04] MEDS: carvediloL 12.5 MG TABLET 25 MG PO (10:07)
[2021-03-04 10:08] VITALS: BP 124/58; PULSE 69
[2021-03-04] MEDS: amLODIPine Besylate 5 MG TABLET PO (10:08)
[2021-03-04] MEDS: Furosemide 40 MG TABLET PO (10:09)
--- NOTE | 2021-03-04 11:29 | P.DS_ITS ---
DS: Providers Provider Date of Service: 03/04/21 Date of admission: 02/10/21 19:11 Date of discharge: 03/04/21 Primary care physician: Garrison Beatty MD Consults: 02/14/21 06:31 Consult to Cardiology Routine Consulting Provider: Joseph Post Reason for consultation: chest pain DS: Diagnosis Discharge Diagnosis (1) Ischemic cardiomyopathy: Status: Acute (2) Coronary artery disease: Status: Acute (3) Schizoaffective disorder, bipolar type: Status: Acute DS: Medications Discharge Medications Home Medications: Home Medications Medication Instructions Recorded Confirmed aspirin 81 mg tablet 81 mg PO DAILY 02/09/21 02/09/21 carvedilol 6.25 mg tablet 1 tab PO BID 02/09/21 02/09/21 clopidogrel 75 mg tablet 1 tab PO DAILY 02/09/21 02/09/21 lisinopril 2.5 mg tablet 1 tab PO DAILY 02/09/21 02/09/21 magnesium 250 mg tablet 250 mg PO DAILY 02/09/21 02/09/21 potassium chloride 10 mEq 2 tab PO DAILY 02/09/21 02/09/21 tablet,extended release calcium phosphate,dibasic 77 1 tab PO DAILY 02/10/21 02/10/21 mg-vitamin D3 400 unit tablet Previous Rx's Medication Instructions Recorded amlodipine 5 mg tablet 5 mg PO DAILY 30 Days #30 tab 03/03/21 aspirin 81 mg chewable tablet 81 mg PO DAILY 30 Days #30 tab 03/03/21 carvedilol 12.5 mg tablet 25 mg PO BID 30 Days #120 tab 03/03/21 clopidogrel 75 mg tablet 75 mg PO DAILY 30 Days #30 tab 03/03/21 donepezil 5 mg tablet 5 mg PO BEDTIME 30 Days #30 tab 03/03/21 furosemide 40 mg tablet 1 tab PO DAILY 30 Days #30 tab 03/03/21 lisinopril 10 mg tablet 10 mg PO BID 30 Days #60 tab 03/03/21 magnesium oxide 400 mg (241.3 mg 400 mg PO DAILY 30 Days #30 tab 03/03/21 magnesium) tablet pantoprazole 40 mg tablet,delayed 1 tab PO DAILY 30 Days #30 tab 03/03/21 release potassium chloride 20 mEq 20 meq PO DAILY 30 Days #30 tab 03/03/21 tablet,extended release(part/cryst) risperidone 2 mg tablet 2 mg PO BEDTIME 30 Days #30 tab 03/03/21 Mental Status Exam Mental Status Exam Patient Appearance: Well Grooomed Patient Orientation: Person Level of Consciousness: Awake Patient Behavior: Cooperative Mood Description: Constricted Affect Description: Constricted Ability to Follow Directions: Good Speech Pattern: Clear Memory Description: Intact Hallucinations: None Delusions: Not Present Thought Process: Intact Thought Content: positive for Circumstantial Judgement: Fair Data Data Completed and Pending Completed studies during hospitalization [Text1]: 02/27/21 03/03/21 11:00 09:36 COVID-19 ([facility]) Negative Positive A COVID-19 Clin Com See Note See Note DS: Summary Hospital Course Hospital Course: The patient was initially admitted for psychotic symptoms due to her several medical conditions, she used to be on Zyprexa 2.5 mg p.o. q.h.s.. Please see HPI on the admission note for details. On admission, we offered to increase the dose of olanzapine or to change to a different psychotic. She preferred to changed to risperidone titrated up slowly up to 2 mg p.o. q.h.s.. Her psychotic symptoms elicited by paranoia and auditory hallucinations slowly but progressively resolved with this dose of risperidone. She has shown minimal side effects and she was content with medications. While she was in the hospital, we assessed her level of cognition and she scored on the [place] test 22/30 so we started Aricept 5 mg p.o. q.h.s. to target mild memory impairment. Since her psychotic symptoms improved and she was able to be discharged to the community discharge planning was discussed. Unfortunately, a few days before discharge, the patient tested positive to COVID 19 but she did not have any major symptoms. Psycho education and infection control strategies were provided to the patient she fully agreed on quarantine after discharge since there were no criteria for inpatient level of care in psychiatry at this moment. Status at Discharge Cognitive/behavioral status at discharge: At baseline Functional status at discharge: independent ambulation Overall status at discharge: patient is back to baseline Time Spent with Patient Time attestation: Total time spent providing and/or coordinating discharge services: Time spent: Less than 30 minutes Discharge Plan Discharge Patient Disposition: Home, Self-Care Discharge Diagnosis: Schizoaffective disorder bipolar type Referrals: SIM Castellon [Other] - 03/06/21 1:45 pm (Your next therapy appointment with Zena is for 03/06/21 at 1:45PM, by phone. ) Logan Scherer APRN [Other] - 03/24/21 2:00 pm (Your first psychiatry appointment with [facility] is scheduled telehealth by phone for 1 hour on 03/24/21 at 2:00PM with Logan Scherer APRN.) [facility] [Other] - 03/07/21 (Referral for [facility] home care placed on 02/27/21.) Garrison Beatty MD [Primary Care Provider] - 1 Week Discharge Medications: New carvedilol 12.5 mg Tablet 25 mg PO BID 30 Days Qty: 120 RF: 0 donepezil 5 mg Tablet 5 mg PO BEDTIME 30 Days Qty: 30 RF: 0 clopidogrel 75 mg Tablet 75 mg PO DAILY 30 Days Qty: 30 RF: 0 amlodipine 5 mg Tablet 5 mg PO DAILY 30 Days Qty: 30 RF: 0 lisinopril 10 mg Tablet 10 mg PO BID 30 Days Qty: 60 RF: 0 aspirin 81 mg Tablet,Chewable 81 mg PO DAILY 30 Days Qty: 30 RF: 0 risperidone 2 mg Tablet 2 mg PO BEDTIME 30 Days Qty: 30 RF: 0 potassium chloride 20 mEq Tablet,Er Particles/Crystals 20 meq PO DAILY 30 Days Qty: 30 RF: 0 magnesium oxide 400 mg (241.3 mg magnesium) Tablet 400 mg PO DAILY 30 Days Qty: 30 RF: 0 Continued aspirin 81 mg Tablet 81 mg PO DAILY RF: 0 calcium phos,dibas-vitamin D3 77-400 mg-unit Tablet 1 tab PO DAILY RF: 0 furosemide 40 mg tablet 1 tab PO DAILY 30 Days Qty: 30 RF: 0 pantoprazole 40 mg tablet,delayed release (DR/EC) 1 tab PO DAILY 30 Days Qty: 30 RF: 0 Discontinued carvedilol 6.25 mg tablet 1 tab PO BID RF: 0 potassium chloride 10 mEq tablet extended release 2 tab PO DAILY RF: 0 clopidogrel 75 mg tablet 1 tab PO DAILY RF: 0 magnesium 250 mg Tablet 250 mg PO DAILY RF: 0 lisinopril 2.5 mg tablet 1 tab PO DAILY RF: 0 Discharge Orders: Discharge Order (Routine); Ordered 03/04/21 Ordered By: Nirmal Dickinson Diet: advance to usual diet Activity on Discharge: As tolerated Stand Alone Forms: Patient Portal Discharge page Care Plan Goals: Care plan goals achieved in this admission. Health Concerns: Follow outpatient treatment as per her regular providers. The patient is fully aware of the COVID-19 restrictions that she has follow. Plan of Treatment: Medication treatment by prescriber. Assessment: Elderly female with a long history of schizoaffective disorder bipolar type admitted for exacerbation of gerri and psychosis in the context of lack of efficacy of Zyprexa 2.5 mg p.o. q.h.s.. She was crossed titrate to Risperdal up with good improvement.
== END 2021-03-04 13:40 | disposition home or self-care (01) | DRG 885 ==
LOC: HO.ED 02-10 19:26 → HO.PADLT16 02-10 19:50 → HO.PGERI 02-11 12:39
PROVIDERS: Hospitalist; Internal Medicine Cardiovascular Disease; Nurse Practitioner Family; Psychiatry & Neurology Psychiatry; Registered Nurse; Admitting Provider Psychiatry & Neurology Psychiatry; Emergency Provider Emergency Medicine; PCP Internal Medicine; Visit Provider Social Worker
DX: F25.0 Schizoaffective disorder, bipolar type (principal); U07.1 COVID-19; R45.851 Suicidal ideations; I10 Essential (primary) hypertension; I25.5 Ischemic cardiomyopathy; I25.10 Atherosclerotic heart disease of native coronary artery without angina pectoris; Z95.1 Presence of aortocoronary bypass graft; R07.9 Chest pain, unspecified; Z79.02 Long term (current) use of antithrombotics/antiplatelets; Z79.82 Long term (current) use of aspirin; Z79.899 Other long term (current) drug therapy
CPT/HCPCS: 36415; 80048; 80053; 80143; 80179; 80307; 81001; 82077; 84484; 85025; 87635; 93005; 93306; 99285; 99499

== ENCOUNTER 2021-08-25 20:24 | Inpatient (IN) | payer MEDICARE, SELFPAY ==
[2021-08-25 20:30] VITALS: BP 128/86; BP 144/82; PULSE 79; PULSE 86; RESP 18; TEMP 36.1; O2SAT 97; O2SAT 99; BMI 23.0
--- NOTE | 2021-08-25 21:03 | ED.PSYCH ---
HPI - Psych General Chief Complaint: Psychiatric Symptoms Stated Complaint: not taking meds Time Seen by Provider: 08/25/21 20:50 Source: patient and EMS Mode of arrival: EMS Limitations: no limitations History of Present Illness HPI Narrative: Patient comes to the emergency room via ambulance. The family reports the patient has been refusing to take medications for over a month. Patient has history of schizophrenia and bipolar disorder, dementia also has been diagnosed. Patient has been calling her have family in the middle of the night, paranoid, saying that people are coming to her apartment to evict her. Patient's son is at bedside, none of this is correct. Patient states that she can make her own decisions. However, the patient's healthcare proxy is her son. Patient states that she does not know why she is here. Related Data Home Medications Medication Instructions Recorded Confirmed olanzapine 2.5 mg tablet 2.5 mg PO DAILY 08/25/21 08/25/21 potassium chloride 20 mEq 10 meq PO DAILY 08/25/21 08/25/21 tablet,extended release(part/cryst) Previous Rx's Medication Instructions Recorded amlodipine 5 mg tablet 5 mg PO DAILY 30 days #30 tabs 03/03/21 aspirin 81 mg chewable tablet 81 mg PO DAILY 30 days #30 tabs 03/03/21 carvedilol 12.5 mg tablet 25 mg PO BID 30 days #120 tabs 03/03/21 clopidogrel 75 mg tablet 75 mg PO DAILY 30 days #30 tabs 03/03/21 donepezil 5 mg tablet 5 mg PO BEDTIME 30 days #30 tabs 03/03/21 furosemide 40 mg tablet 1 tab PO DAILY 30 days #30 tabs 03/03/21 lisinopril 10 mg tablet 10 mg PO BID 30 days #60 tabs 03/03/21 magnesium oxide 400 mg (241.3 mg 400 mg PO DAILY 30 days #30 tabs 03/03/21 magnesium) tablet pantoprazole 40 mg tablet,delayed 1 tab PO DAILY 30 days #30 tabs 03/03/21 release Allergies Allergy/AdvReac Type Severity Reaction Status Date / Time No Known Allergies [NKA] Allergy Mild NOT Unverified 11/23/19 14:43 APPLICABLE Review of Systems Review of Systems: Constitutional : No Weight loss, No Fever, No Chills, No Night Sweats, No Fatigue, No Malaise ENT/Mouth : No Hearing loss, No Ear Pain, No Nasal Congestion, No Sinus Pain, No Hoarseness, No sore throat, No Rhinorrhea, No Swallowing Difficulty Eyes: No Eye Pain, No Swelling, No Redness, No Foreign Body, No Discharge, No Vision Changes Cardiovascular : No Chest Pain, No SOB, No Dyspnea on Exertion, No Orthopnea, No Edema, No Palpitations Respiratory : No Cough, No Sputum, No Wheezing, No Smoke Exposure, No Dyspnea Gastrointestinal : No Nausea, No Vomiting, No Diarrhea, No Constipation, No abdominal Pain, No Hematochezia, No Melena Genitourinary : no irregular bleeding, No Dysuria, No Urinary Frequency, No Hematuria, No Urinary Incontinence, No Urgency, No Flank Pain, No Urinary Flow Changes, No Hesitancy Musculoskeletal : No joint pain, No Myalgias, No Joint Swelling Skin : No Skin Lesions, No rash Neuro : No Weakness, No Numbness, No Paresthesias, No Loss of Consciousness, No Dizziness, No Headache Psych : No Anxiety/Panic, No Depression, No SI/HI/AH/VH, No Social Issues, Heme/Lymph: No Bruising, No Bleeding,No Lymphadenopathy Endocrine : No Polyuria, No Polydipsia, No Temperature Intolerance [facility] Past Medical History Medical History Coronary artery disease Essential hypertension Ischemic cardiomyopathy Schizoaffective disorder, bipolar type Surgical History (Updated 08/25/21 @ 21:06 by Jyoti Abreu MD) S/P CABG (coronary artery bypass graft) Social History Social History Household Members: None Housing: Apartment Do you presently have visiting nurse or other home services: No Patient Tobacco Use Status: Never used Tobacco Advance Directives: Yes Advance Directives on File: Yes Advance Directives Date on File: 03/06/21 service: No Sexual orientation: Straight/Heterosexual Physical Exam Vital Signs: Vital Signs: Last Vital Signs Temp 97.0 F 08/25/21 20:30 Pulse 79 08/25/21 20:30 Resp 18 08/25/21 20:30 BP 144/82 H 08/25/21 20:30 Pulse Ox 99 08/25/21 20:30 O2 Del Method 08/25/21 20:30 BMI result Body Mass Index 23.0 Const: Other: Appearance: Alert. Oriented X3. No acute distress. Eyes: Pupils equal, round and reactive to light. ENT: Pharynx normal. Neck: Normal inspection. Neck supple. No lymph nodes noted. No crepitus CVS: Normal heart rate and rhythm. Pulses normal. Normal S1 and S2 Respiratory: No respiratory distress. Breath sounds normal. No Wheezing. No rales Abdomen: Soft and nontender. No rigidity. No distention. Skin: Skin warm and dry. Normal skin color. Normal skin turgor. Extremities: No lower extremity edema. No Lacerations. No Rash Neuro: Oriented X 3. No motor deficit. No sensory deficit. Moving all extremities. No slurred speech. CN 2 through 12 grossly intact Psych: calm, cooperative, anxious, teary Course Course Course Narrative: Per family, once patient gets home, she starts acting different, paranoid. Of her medications for over 1 month. Patient's family is trying to get a [employer] order. Urinalysis pending. Physician observation started at 21:00 Discharge Plan Discharge Clinical Impression: Schizoaffective disorder, bipolar type, Paranoid Patient Disposition: Still a Patient Prescriptions: No Action aspirin 81 mg Tablet 81 mg PO DAILY calcium phos,dibas-vitamin D3 77-400 mg-unit Tablet 1 tab PO DAILY carvedilol 12.5 mg Tablet 25 mg PO BID 30 Days Qty: 120 0RF Protocol: Hold for SBP/HR < HOLD for SBP < : 90 HOLD for HR < : 60 donepezil 5 mg Tablet 5 mg PO BEDTIME 30 Days Qty: 30 0RF clopidogrel 75 mg Tablet 75 mg PO DAILY 30 Days Qty: 30 0RF amlodipine 5 mg Tablet 5 mg PO DAILY 30 Days Qty: 30 0RF Protocol: Hold for SBP< HOLD for SBP < : 90 lisinopril 10 mg Tablet 10 mg PO BID 30 Days Qty: 60 0RF Protocol: Hold for SBP< HOLD for SBP < : 90 aspirin 81 mg Tablet,Chewable 81 mg PO DAILY 30 Days Qty: 30 0RF risperidone 2 mg Tablet 2 mg PO BEDTIME 30 Days Qty: 30 0RF potassium chloride 20 mEq Tablet,Er Particles/Crystals 20 meq PO DAILY 30 Days Qty: 30 0RF magnesium oxide 400 mg (241.3 mg magnesium) Tablet 400 mg PO DAILY 30 Days Qty: 30 0RF furosemide 40 mg tablet 1 tab PO DAILY 30 Days Qty: 30 0RF pantoprazole 40 mg tablet,delayed release (DR/EC) 1 tab PO DAILY 30 Days Qty: 30 0RF
[2021-08-25 21:36] LABS: MANUAL DIFF FLAG NO
[2021-08-25 21:39] LABS: Basophils Absolute Auto 0.1 X10*3/uL (0.0-0.2); Basophils Percent Auto 0.5 % (0-2); Eosinophils Absolute Auto 0.1 X10*3/uL (0.0-0.4); Eosinophils Percent Auto 0.7 % (0-4); Hematocrit 41.9 % (37.0-47.0); Hemoglobin 14.6 g/dl (12.0-16.0); Imm Gran Abs Auto 0.04 X10*3/uL (0.00-0.03); Imm Gran Pct Auto 0.4 % (0.0-0.4); Lymphocytes Absolute Auto 2.5 X10*3/uL (1.2-4.9); Lymphocytes Percent Auto 24.8 % (20-40); Mean Corpuscular HGB Conc 34.8 g/dl (31.0-35.0); Mean Corpuscular Hemoglobin 30.4 pg (27.0-33.0); Mean Corpuscular Volume 87.3 fL (80.0-98.0); Mean Platelet Volume 9.3 fL (9.4-12.3); Monocytes Absolute Auto 1.2 X10*3/uL (0.1-1.2); Monocytes Percent Auto 11.5 % (2-11); Neutrophils Absolute Auto 6.2 x10*3/uL (2.0-8.3); Neutrophils Percent Auto 62.1 % (45-73); Platelet Count 331 X10*3/uL (160-400); Red Cell Distribution Width 12.6 % (11.0-16.0)
[2021-08-25 21:51] LABS: Appearance Urine CLEAR; Color Urine YELLOW; Glucose Urine UA NEG (NEG); Leukocyte Esterase Urine NEG (NEG); Nitrite Urine NEG (NEG); PH 5.5 (5.0-8.0); Specific Gravity - Urine >= 1.030 (1.005-1.025); Urine Blood NEG (NEG); Urine Ketones 5 MG/DL (NEG); Urine Protein TRACE MG/DL (NEG-TRACE)
[2021-08-25 21:52] LABS: Alanine Aminotransferase 17 U/L (0-31); Albumin Level 4.7 g/dL (3.5-5.0); Alkaline Phosphatase 99 U/L (39-117); Anion Gap 17 (12-20); Aspartate Amino Transferase 20 U/L (5-31); Bilirubin Direct 0.2 mg/dL (0.0-0.5); Bilirubin Total 0.4 mg/dL (0.0-1.0); Blood Urea Nitrogen 18 mg/dL (9-16); Calcium 10.4 mg/dL (8.4-10.2); Carbon Dioxide 23 mmol/L (22-29); Chloride 99 mmol/L (96-108); Creatinine Clr Calc Pharmacy 43.9; Estimated Glomerular Filt Rate > 60; Glucose Random 114 mg/dL (60-115); Magnesium 1.7 mg/dL (1.6-2.6); Potassium 3.9 mmol/L (3.3-5.1); Sodium 135 mmol/L (135-145); Total Protein 7.7 g/dL (6.5-8.0)
[2021-08-25 21:57] LABS: COVID-19 Test Negative (Negative); IDNOW Serial# 55D5AD1C
[2021-08-25 22:10] LABS: Amphetamine Screen Urine Not Detected (Not Detect); Barbiturates, Urine Not Detected (Not Detect); Benzodiazepines Screen Urine Not Detected (Not Detect); Cannabinoid Screen Urine Not Detected (Not Detect); Cocaine Screen Urine Not Detected (Not Detect); Fentanyl, urine POSITIVE (Not Detect); Opiate Screen Urine Not Detected (Not Detect); Phencyclidine Screen Urine Not Detected (Not Detect)
--- NOTE | 2021-08-26 | ECG_ITS ---
Test Reason : med clearance Blood Pressure : / mmHG Vent. Rate : 075 BPM Atrial Rate : 075 BPM P-R Int : 154 ms QRS Dur : 090 ms QT Int : 368 ms P-R-T Axes : 000 037 191 degrees QTc Int : 410 ms Sinus rhythm with occasional Premature ventricular complexes Left ventricular hypertrophy with repolarization abnormality ( Sokolow-Mcintosh , Romhilt-Chung ) Possible Inferior infarct , age undetermined Anterior infarct (cited on or before 09-FEB-2021) Abnormal ECG When compared with ECG of 25-FEB-2021 13:23, Significant changes have occurred Referred By: Mikaela Fuentes Electronically Signed By:RADHA SALAZAR MD
[2021-08-26 00:19] VITALS: BP 139/65; PULSE 78; RESP 16; TEMP 36.9; O2SAT 98
[2021-08-26] MEDS: OLANZapine 2.5 MG TABLET PO ×2 (00:22→20:51)
[2021-08-26] MEDS: lisinopriL 10 MG TABLET PO ×3 (00:22→20:51)
[2021-08-26] MEDS: carvediloL 6.25 MG TABLET PO ×3 (00:22→20:51)
[2021-08-26] MEDS: Donepezil HCl 5 MG TABLET PO ×2 (00:22→20:51)
--- NOTE | 2021-08-26 07:29 | PC.NURSE ---
Patient slept through the night, no distress observed/reported, medication compliant, disposition per care team is section 12 inpatient bed search, behavior non concerning however constantly fixated on her belonging, VSS, will continue to monitor.
[2021-08-26 07:50] VITALS: BP 126/89; PULSE 67; RESP 18; TEMP 36.3; O2SAT 98
[2021-08-26] MEDS: amLODIPine Besylate 5 MG TABLET PO (09:34)
[2021-08-26] MEDS: Clopidogrel Bisulfate 75 MG TABLET PO (09:34)
[2021-08-26] MEDS: Magnesium Oxide 400 MG TABLET PO (09:34)
[2021-08-26] MEDS: Furosemide 40 MG TABLET PO (09:34)
[2021-08-26] MEDS: Potassium Chloride ER 20 MEQ TAB.ER.PRT 10 MEQ PO (09:34)
[2021-08-26] MEDS: Omeprazole 20 MG CAPSULE.DR PO (09:34)
--- NOTE | 2021-08-26 12:48 | PC.NURSE ---
Gave report to IVET Diaz at this time. Pt has been appropriate, calm, and walking around with steady gait. No c/o of pain, CARLOS, headache or GI distress. Pt ate lunch and has been drinking water. Pt has gone to restroom 2x since 9am
--- NOTE | 2021-08-26 13:28 | PC.NURSE ---
Pt calm, RR even and unlabored. Pt walked to and from restroom with steady gait
[2021-08-26 18:53] VITALS: BP 155/70; PULSE 73; RESP 16; TEMP 36.6; O2SAT 99
[2021-08-26 19:09] VITALS: BMI 23.8
--- NOTE | 2021-08-26 19:11 | PC.ADMIT ---
Admitted to unit at 1805 and placed on 15 min safety checks. Nurse to nurse done with [facility] ED Pod prior to transfer to this unit. Conditional Voluntary signed prior to admission. Precipitating factors to admission: Arrived to [facility] ED via EMS on [address] by Sanjiv YOUNG. Son contacted EMS due to concerns re: increasing paranoia, delusions, not taking care of self. Stopped taking prescription Olanzapine on 08/06/21 per intake. Pt initially informed this content writer she had stopped taking Olanzapine beginning of July due to wt gain and palpitations. Intake indicates pt had been knocking on neighbor's doors saying police were after her and calling siblings and her son all hrs saying she has to get out of apt. Pt vague re: this report. States she walks around her apt grounds swiftly and people think she is running. States she may have knocked on 1 neighbor's door crying and does not know why. Alert and oriented x4 at present time, stating she has been hospitalized for report of not acting right. Medical issues: hx CABG, HTN. No current acute medical issues. Denies substance issues, tox screen positive for fentanyl per ED report. Pt not prescribed Fentanyl, ? accuracy. Transfer/Admission orders received from Dr Estrada prior to admission to unit. Denies AH/VH, denies SI/HI. No c/o discomfort. Cooperative with admission process. Pt has had prior admission to this unit Feb 2021. Admitting dx: Schizoaffective disorder, bipolar type.
[2021-08-26 20:20] VITALS: BP 108/63; PULSE 78; RESP 16; TEMP 35.9; O2SAT 95
[2021-08-26 20:54] VITALS: BP 108/63; PULSE 78; RESP 18; TEMP 35.9; O2SAT 95
[2021-08-27 08:15] VITALS: BP 155/81; PULSE 89; RESP 16; TEMP 36.6; O2SAT 96
[2021-08-27] MEDS: Clopidogrel Bisulfate 75 MG TABLET PO (08:47)
[2021-08-27] MEDS: amLODIPine Besylate 5 MG TABLET PO (08:48)
[2021-08-27] MEDS: lisinopriL 10 MG TABLET PO ×2 (08:48→20:30)
[2021-08-27] MEDS: Furosemide 40 MG TABLET PO (08:49)
[2021-08-27] MEDS: Omeprazole 20 MG CAPSULE.DR PO (08:49)
[2021-08-27] MEDS: carvediloL 6.25 MG TABLET PO ×2 (08:49→20:30)
[2021-08-27] MEDS: Magnesium Oxide 400 MG TABLET PO (08:50)
[2021-08-27 08:54] LABS: Alanine Aminotransferase 15 U/L (0-31); Albumin Level 4.4 g/dL (3.5-5.0); Alkaline Phosphatase 92 U/L (39-117); Anion Gap 16 (12-20); Aspartate Amino Transferase 14 U/L (5-31); Bilirubin Total 0.6 mg/dL (0.0-1.0); Blood Urea Nitrogen 22 mg/dL (9-16); Calcium 10.3 mg/dL (8.4-10.2); Carbon Dioxide 25 mmol/L (22-29); Chloride 99 mmol/L (96-108); Cholesterol 261 mg/dL; Creatinine Clr Calc Pharmacy 46.5; Estimated Glomerular Filt Rate > 60; Glucose Fasting 106 mg/dL (60-99); HDL Cholesterol 61 mg/dL; LDL Cholesterol Calculated 157 mg/dl; Potassium 4.1 mmol/L (3.3-5.1); Sodium 136 mmol/L (135-145); Total Protein 7.2 g/dL (6.5-8.0); Triglycerides 216 mg/dL
[2021-08-27 09:55] LABS: Folate > 20.0 ng/mL (> or = 4.0); Vitamin B12 408 pg/mL (200-900)
[2021-08-27 10:51] LABS: Reflex LDLD? No
--- NOTE | 2021-08-27 14:35 | HO.PSYADMNOT ---
HPI Date of Service: 08/27/21 Chief Complaint: Psychosis Sources of Information: patient interviewed, chart reviewed and crisis/core team assessment reviewed HPI Subjective Notes: Pathak Warning and Conditional Voluntary Narrative: the patient is a 76-year-old female, , mother of an adult son, living alone, with good social support, very well known by this service since she was in the hospital few months ago with a history of schizoaffective disorder bipolar type. She was discharged from this unit several months ago on risperidone in replacement of Zyprexa since she reported the Zyprexa over-sedated her. Apparently, for discharge she went to her primary care physician who change risperidone back to olanzapine. The patient reported weight gain and over-sedation with olanzapine and she stop her medications 3 weeks prior to the admission. According to the crisis report, her son called the police because his mother was going to the neighbor's house stating that she was being chased by the police and she was paranoid and disorganized. The patient was brought to this facility on a [address] 12 due to his altered mental status. On interview, the patient recognizes me she reported that she is feeling safe here in the unit. She adamantly denies auditory hallucinations but she reported increased anxiety and paranoia. We discussed several treatment options and she does not want to take Risperdal and will keep on Zyprexa 2.5 in the meantime. We will try to gather more collateral information. At this moment there is no evidence of active suicidal ideation or any safety concerns Past Psychiatric History: [facility] ED 3Xin past 2 months for somatic sx IPLOC at [facility], in 2009. Remote hx of IPLOC at [facility] [place]. Previous SI attempt in 2010 Therapist Zena Maldonado, reports she just started working with again last week. Psych provider ESTRELLA Calle at [facility], Medical Evaluation Reviewed: Yes [facility] Medical History Coronary artery disease Essential hypertension Ischemic cardiomyopathy Schizoaffective disorder, bipolar type Surgical History S/P CABG (coronary artery bypass graft) Family History: Raised by parents, 1 brother, 1 sister. Siblings local. Mother : Alzheimers dementia. Father : Question of psychosis. Brother: Question of psychosis. Sister: Question of dementia. Social History: , lives by self in [address] apartment. Has 1 son, has grand children. Substance History: Denies Trauma History: Unknown. Diagnostics Vital Signs (24Hr): Vital Signs - 24 hr 08/26/21 18:53 08/26/21 20:54 08/26/21 20:20 Temperature 97.9 F 96.6 F L 96.6 F L Pulse Rate 73 78 78 Respiratory Rate 16 18 16 Blood Pressure 155/70 H 108/63 108/63 Pulse Oximetry 99 95 95 Oxygen Delivery Method Room Air Room Air Room Air 08/27/21 08:15 Temperature 97.8 F Pulse Rate 89 Respiratory Rate 16 Blood Pressure 155/81 H Pulse Oximetry 96 Oxygen Delivery Method Room Air BMI result Body Mass Index 23.8 Labs Results: 08/25/21 21:31 08/27/21 07:58 Labs: Laboratory Results - last 48 hr 08/25/21 08/25/21 08/25/21 21:31 21:31 21:32 WBC 10.0 RBC 4.80 Hgb 14.6 Hct 41.9 MCV 87.3 MCH 30.4 MCHC 34.8 RDW 12.6 Plt Count 331 MPV 9.3 L Immature Gran % (Auto) 0.4 Neut % (Auto) 62.1 Lymph % (Auto) 24.8 [place] % (Auto) 11.5 H Eos % (Auto) 0.7 Baso % (Auto) 0.5 Lymph # (Auto) 2.5 [place] # (Auto) 1.2 Eos # (Auto) 0.1 Baso # (Auto) 0.1 Abs Immat Gran (auto) 0.04 H Absolute Neuts (auto) 6.2 Absolute Nucleated RBC 0.000 Nucleated RBC % (auto) 0.0 Sodium 135 Potassium 3.9 Chloride 99 Carbon Dioxide 23 Anion Gap 17 BUN 18 H Creatinine 0.90 Estim Creat Clear Calc 43.9 Estimated GFR > 60 Random Glucose 114 Fasting Glucose Calcium 10.4 H Magnesium 1.7 Total Bilirubin 0.4 Direct Bilirubin 0.2 AST 20 ALT 17 Alkaline Phosphatase 99 Total Protein 7.7 Albumin 4.7 Triglycerides Cholesterol LDL Cholesterol, Calc HDL Cholesterol Vitamin B12 Folate Urine Color Urine Appearance Urine pH Ur Specific [place] Urine Protein Urine Glucose (UA) Urine Ketones Urine Blood Urine Nitrite Ur Leukocyte Esterase Urine Opiates Screen Urine Fentanyl Screen Ur Barbiturates Screen Ur Phencyclidine Scrn Ur Amphetamines Screen U Benzodiazepines Scrn Urine Cocaine Screen U Marijuana (THC) Screen COVID-19 (SIN) Negative COVID-19 [employer] Com See Note 08/25/21 08/25/21 08/27/21 21:42 21:42 07:58 WBC RBC Hgb Hct MCV MCH MCHC RDW Plt Count MPV Immature Gran % (Auto) Neut % (Auto) Lymph % (Auto) [place] % (Auto) Eos % (Auto) Baso % (Auto) Lymph # (Auto) [place] # (Auto) Eos # (Auto) Baso # (Auto) Abs Immat Gran (auto) Absolute Neuts (auto) Absolute Nucleated RBC Nucleated RBC % (auto) Sodium 136 Potassium 4.1 Chloride 99 Carbon Dioxide 25 Anion Gap 16 BUN 22 H Creatinine 0.85 Estim Creat Clear Calc 46.5 Estimated GFR > 60 Random Glucose Fasting Glucose 106 H Calcium 10.3 H Magnesium Total Bilirubin 0.6 Direct Bilirubin AST 14 ALT 15 Alkaline Phosphatase 92 Total Protein 7.2 Albumin 4.4 Triglycerides 216 Cholesterol 261 LDL Cholesterol, Calc 157 HDL Cholesterol 61 Vitamin B12 Folate Urine Color YELLOW Urine Appearance CLEAR Urine pH 5.5 Ur Specific [place] >= 1.030 H Urine Protein TRACE Urine Glucose (UA) NEG Urine Ketones 5 Urine Blood NEG Urine Nitrite NEG Ur Leukocyte Esterase NEG Urine Opiates Screen Not Detected Urine Fentanyl Screen POSITIVE H Ur Barbiturates Screen Not Detected Ur Phencyclidine Scrn Not Detected Ur Amphetamines Screen Not Detected U Benzodiazepines Scrn Not Detected Urine Cocaine Screen Not Detected U Marijuana (THC) Screen Not Detected COVID-19 (SIN) COVID-19 [employer] Com 08/27/21 07:58 WBC RBC Hgb Hct MCV MCH MCHC RDW Plt Count MPV Immature Gran % (Auto) Neut % (Auto) Lymph % (Auto) [place] % (Auto) Eos % (Auto) Baso % (Auto) Lymph # (Auto) [place] # (Auto) Eos # (Auto) Baso # (Auto) Abs Immat Gran (auto) Absolute Neuts (auto) Absolute Nucleated RBC Nucleated RBC % (auto) Sodium Potassium Chloride Carbon Dioxide Anion Gap BUN Creatinine Estim Creat Clear Calc Estimated GFR Random Glucose Fasting Glucose Calcium Magnesium Total Bilirubin Direct Bilirubin AST ALT Alkaline Phosphatase Total Protein Albumin Triglycerides Cholesterol LDL Cholesterol, Calc HDL Cholesterol Vitamin B12 408 Folate > 20.0 Urine Color Urine Appearance Urine pH Ur Specific [place] Urine Protein Urine Glucose (UA) Urine Ketones Urine Blood Urine Nitrite Ur Leukocyte Esterase Urine Opiates Screen Urine Fentanyl Screen Ur Barbiturates Screen Ur Phencyclidine Scrn Ur Amphetamines Screen U Benzodiazepines Scrn Urine Cocaine Screen U Marijuana (THC) Screen COVID-19 (SIN) COVID-19 Clin Com Meds/Allergies Meds Home Medications Medication Instructions Recorded Confirmed Type carvedilol 6.25 mg tablet 1 tab PO BID 08/25/21 08/25/21 History magnesium 250 mg tablet 250 mg PO DAILY 08/25/21 08/25/21 History olanzapine 2.5 mg tablet 2.5 mg PO BEDTIME 08/25/21 08/25/21 History potassium chloride 20 mEq 10 meq PO DAILY 08/25/21 08/25/21 History tablet,extended release(part/cryst) Allergies Allergies Allergy/AdvReac Type Severity Reaction Status Date / Time No Known Allergies [NKA] Allergy Mild NOT Unverified 11/23/19 14:43 APPLICABLE Mental Status Exam Mental Status Exam Patient Appearance: Well Grooomed Patient Orientation: Person and Situation Level of Consciousness: Awake Patient Behavior: Cooperative Mood Description: Withdrawn Affect Description: Constricted Patient Cognition Impaired: No Ability to Follow Directions: Good Speech Pattern: Clear Hallucinations: None Delusions: Paranoid Ideation Thought Process: Distracted Thought Content: positive for [place] and positive for Circumstantial Judgement: Fair Assessment & Plan Assessment & Plan (1) Schizoaffective disorder, bipolar type: Status: Acute Code(s): F25.0 - Schizoaffective disorder, bipolar type Plan the patient is an elderly female with a history of schizoaffective disorder bipolar type admitted for exacerbation of paranoia and psychosis in the context of noncompliance of antipsychotics. The patient is very well known by this facility from a previous admission. Plan 1. Gather collateral information. 2. Was restart Zyprexa 2.5 mg p.o. q.h.s.. 3. Continue medical work-out. Patient educated on: diagnosis and medication risk/benefits Informed Consent: understands Reason for continued inpatient stay Substantial Risk for: inability to function, rapid decompensation and med/psych decompensation
[2021-08-27 18:00] VITALS: BP 134/74; PULSE 82; RESP 16; TEMP 36.1; O2SAT 100
[2021-08-27] MEDS: OLANZapine 2.5 MG TABLET PO (20:30)
[2021-08-27] MEDS: Donepezil HCl 5 MG TABLET PO (20:30)
[2021-08-28 07:20] VITALS: BP 176/88; PULSE 90; RESP 16; TEMP 36.4; O2SAT 99
[2021-08-28] MEDS: carvediloL 6.25 MG TABLET PO ×2 (09:40→20:59)
[2021-08-28] MEDS: amLODIPine Besylate 5 MG TABLET PO (09:40)
[2021-08-28] MEDS: Clopidogrel Bisulfate 75 MG TABLET PO (09:40)
[2021-08-28] MEDS: Furosemide 40 MG TABLET PO (09:40)
[2021-08-28] MEDS: Omeprazole 20 MG CAPSULE.DR PO (09:40)
[2021-08-28] MEDS: lisinopriL 10 MG TABLET PO ×2 (09:40→21:00)
[2021-08-28] MEDS: Magnesium Oxide 400 MG TABLET PO (09:40)
--- NOTE | 2021-08-28 14:12 | P.PNPSI_ITS ---
Subjective Subjective Date of Service: 08/28/21 Reason For Visit: Psychosis Subjective Notes: Conditional Voluntary Interim History: The nursing staff Reported that the patient has been compliant with treatment. She slept well last night. She remains guarded and paranoid and she was been visible in the unit but she has not attended to any groups. On interview the patient remains guarded but she denies new symptoms. She spends most of the time in her room. Mental Status Exam Mental Status Exam Patient Appearance: Appropriate Patient Orientation: Person Level of Consciousness: Awake Patient Behavior: Cooperative Mood Description: Withdrawn Affect Description: Constricted Patient Cognition Impaired: Yes Ability to Follow Directions: Fair Speech Pattern: Clear Hallucinations: None Delusions: Paranoid Ideation Thought Process: Distracted Thought Content: positive for [place] and positive for Preoccupation Judgement: Fair Diagnostics Vital Signs (24Hr): Vital Signs - 24 hr 08/27/21 18:00 08/28/21 07:20 Temperature 97 F 97.5 F Pulse Rate 82 90 Respiratory Rate 16 16 Blood Pressure 134/74 176/88 H Pulse Oximetry 100 99 Oxygen Delivery Method Room Air Room Air BMI result Body Mass Index 23.8 Labs Results: 08/25/21 21:31 08/27/21 07:58 Labs: Laboratory Results - last 48 hr 08/27/21 08/27/21 07:58 07:58 Sodium 136 Potassium 4.1 Chloride 99 Carbon Dioxide 25 Anion Gap 16 BUN 22 H Creatinine 0.85 Estim Creat Clear Calc 46.5 Estimated GFR > 60 Fasting Glucose 106 H Calcium 10.3 H Total Bilirubin 0.6 AST 14 ALT 15 Alkaline Phosphatase 92 Total Protein 7.2 Albumin 4.4 Triglycerides 216 Cholesterol 261 LDL Cholesterol, Calc 157 HDL Cholesterol 61 Vitamin B12 408 Folate > 20.0 Medications Medications Current Medications Acetaminophen (Acetaminophen 325 Mg Tablet) 650 mg PO Q6H PRN PRN Reason: Headache/Pain Mild Scale (1-3) Al Hydroxide/Mg Hydroxide (Magnesium Hydrox/Alum Hydrox 30 Ml Oral.Susp) 30 ml PO Q6H PRN PRN Reason: Heartburn/Nausea Amlodipine Besylate (Amlodipine Besylate 5 Mg Tablet) 5 mg PO DAILY [facility]; Protocol Last Admin: 08/28/21 09:40 Dose: 5 mg Carvedilol (Carvedilol 6.25 Mg Tablet) 6.25 mg PO BID [facility]; Protocol Last Admin: 08/28/21 09:40 Dose: 6.25 mg Clopidogrel Bisulfate (Clopidogrel Bisulfate 75 Mg Tablet) 75 mg PO DAILY [facility] Last Admin: 08/28/21 09:40 Dose: 75 mg Donepezil HCl (Donepezil Hcl 5 Mg Tablet) 5 mg PO BEDTIME [facility] Last Admin: 08/27/21 20:30 Dose: 5 mg Furosemide (Furosemide 40 Mg Tablet) 40 mg PO DAILY [facility]; Protocol Last Admin: 08/28/21 09:40 Dose: 40 mg Lisinopril (Lisinopril 10 Mg Tablet) 10 mg PO BID [facility]; Protocol Last Admin: 08/28/21 09:40 Dose: 10 mg Magnesium Hydroxide (Milk Of Magnesia 30 Ml Oral.Susp) 30 ml PO DAILY PRN PRN Reason: Constipation Magnesium Oxide (Magnesium Oxide 400 Mg Tablet) 400 mg PO DAILY [facility] Last Admin: 08/28/21 09:40 Dose: 400 mg Olanzapine (Olanzapine 2.5 Mg Tablet) 2.5 mg PO BEDTIME [facility] Last Admin: 08/27/21 20:30 Dose: 2.5 mg Omeprazole (Omeprazole 20 Mg Capsule.Dr) 20 mg PO DAILY [facility] Last Admin: 08/28/21 09:40 Dose: 20 mg Potassium Chloride (Potassium Chloride Er 10 Meq Capsule.Er) 10 meq PO DAILY [facility] Last Admin: 08/28/21 09:40 Dose: 10 meq Allergies Allergies Allergy/AdvReac Type Severity Reaction Status Date / Time No Known Allergies [NKA] Allergy Mild NOT Unverified 11/23/19 14:43 APPLICABLE Assessment & Plan Assessment & Plan (1) Schizoaffective disorder, bipolar type: Status: Acute Code(s): F25.0 - Schizoaffective disorder, bipolar type Plan the patient is an elderly female with a history of schizoaffective disorder bipolar type admitted for exacerbation of paranoia and psychosis in the context of noncompliance of antipsychotics. The patient is very well known by this facility from a previous admission. Plan 1. Gather collateral information. 2. Restart Zyprexa 2.5 mg p.o. q.h.s.. 3. Continue medical work-out. I spent ___20___ minutes with the patient and/or on the patient floor today, greater than?50% of which was spent counseling/coordinating care. Reason for contiued inpatient stay Substantial Risk for: inability to function, rapid decompensation and med/psych decompensation
[2021-08-28 18:00] VITALS: BP 118/72; PULSE 74; RESP 16; TEMP 36.4; O2SAT 98
[2021-08-28] MEDS: Donepezil HCl 5 MG TABLET PO (21:00)
[2021-08-28] MEDS: OLANZapine 2.5 MG TABLET PO (21:00)
[2021-08-29 07:35] VITALS: BP 141/72; PULSE 73; RESP 16; TEMP 36.6; O2SAT 97
[2021-08-29] MEDS: amLODIPine Besylate 5 MG TABLET PO (08:04)
[2021-08-29] MEDS: Omeprazole 20 MG CAPSULE.DR PO (08:05)
[2021-08-29] MEDS: carvediloL 6.25 MG TABLET PO ×2 (08:05→21:02)
[2021-08-29] MEDS: lisinopriL 10 MG TABLET PO ×2 (08:05→21:02)
[2021-08-29] MEDS: Clopidogrel Bisulfate 75 MG TABLET PO (08:05)
[2021-08-29] MEDS: Furosemide 40 MG TABLET PO (08:05)
[2021-08-29] MEDS: Magnesium Oxide 400 MG TABLET PO (10:54)
--- NOTE | 2021-08-29 13:59 | P.PNPSI_ITS ---
Subjective Subjective Date of Service: 08/29/21 Reason For Visit: Psychosis Subjective Notes: Conditional Voluntary Interim History: the nursing staff reported the patient has being attending to groups but she does not state her she is then later leaves. She has been paranoid and accusing staff. She slept 7 hours. The geriatric social work professor talk with the patient and she stated that she was doing fine. On interview we discussed with the patient treatment options, she cannot tolerate Zyprexa or Risperdal so she agreed to try a low dose of haloperidol instead to target her paranoia. Mental Status Exam Mental Status Exam Patient Appearance: Well Grooomed Patient Orientation: Person Level of Consciousness: Awake Patient Behavior: Cooperative Mood Description: Withdrawn Affect Description: Suspicious Patient Cognition Impaired: Yes Ability to Follow Directions: Fair Speech Pattern: Clear Hallucinations: None Delusions: Paranoid Ideation Thought Process: Evasive Thought Content: positive for [place] Judgement: Fair Diagnostics Vital Signs (24Hr): Vital Signs - 24 hr 08/28/21 18:00 08/29/21 07:35 Temperature 97.6 F 97.8 F Pulse Rate 74 73 Respiratory Rate 16 16 Blood Pressure 118/72 141/72 H Pulse Oximetry 98 97 Oxygen Delivery Method Room Air Room Air BMI result Body Mass Index 23.8 Labs Results: 08/25/21 21:31 08/27/21 07:58 Medications Medications Current Medications Acetaminophen (Acetaminophen 325 Mg Tablet) 650 mg PO Q6H PRN PRN Reason: Headache/Pain Mild Scale (1-3) Al Hydroxide/Mg Hydroxide (Magnesium Hydrox/Alum Hydrox 30 Ml Oral.Susp) 30 ml PO Q6H PRN PRN Reason: Heartburn/Nausea Amlodipine Besylate (Amlodipine Besylate 5 Mg Tablet) 5 mg PO DAILY [facility]; Pro tocol Last Admin: 08/29/21 08:04 Dose: 5 mg Carvedilol (Carvedilol 6.25 Mg Tablet) 6.25 mg PO BID [facility]; Protocol Last Admin: 08/29/21 08:05 Dose: 6.25 mg Clopidogrel Bisulfate (Clopidogrel Bisulfate 75 Mg Tablet) 75 mg PO DAILY [facility] Last Admin: 08/29/21 08:05 Dose: 75 mg Donepezil HCl (Donepezil Hcl 5 Mg Tablet) 5 mg PO BEDTIME [facility] Last Admin: 08/28/21 21:00 Dose: 5 mg Furosemide (Furosemide 40 Mg Tablet) 40 mg PO DAILY [facility]; Protocol Last Admin: 08/29/21 08:05 Dose: 40 mg Lisinopril (Lisinopril 10 Mg Tablet) 10 mg PO BID [facility]; Protocol Last Admin: 08/29/21 08:05 Dose: 10 mg Magnesium Hydroxide (Milk Of Magnesia 30 Ml Oral.Susp) 30 ml PO DAILY PRN PRN Reason: Constipation Magnesium Oxide (Magnesium Oxide 400 Mg Tablet) 400 mg PO DAILY [facility] Last Admin: 08/29/21 10:54 Dose: 400 mg Olanzapine (Olanzapine 2.5 Mg Tablet) 2.5 mg PO BEDTIME [facility] Last Admin: 08/28/21 21:00 Dose: 2.5 mg Omeprazole (Omeprazole 20 Mg Capsule.Dr) 20 mg PO DAILY [facility] Last Admin: 08/29/21 08:05 Dose: 20 mg Potassium Chloride (Potassium Chloride Er 10 Meq Capsule.Er) 10 meq PO DAILY [facility] Last Admin: 08/29/21 08:05 Dose: 10 meq Allergies Allergies Allergy/AdvReac Type Severity Reaction Status Date / Time No Known Allergies [NKA] Allergy Mild NOT Unverified 11/23/19 14:43 APPLICABLE Assessment & Plan Assessment & Plan (1) Schizoaffective disorder, bipolar type: Status: Acute Code(s): F25.0 - Schizoaffective disorder, bipolar type Plan the patient is an elderly female with a history of schizoaffective disorder bipolar type admitted for exacerbation of paranoia and psychosis in the context of noncompliance of antipsychotics. The patient is very well known by this facility from a previous admission. Plan 1. Gather collateral information. 2. Discontinue Zyprexa. 3. Start Haldol 0.5 p.o. b.i.d. and 1 mg p.o. q.h.s. to target paranoia. I spent ___20___ minutes with the patient and/or on the patient floor today, greater than?50% of which was spent counseling/coordinating care. Reason for contiued inpatient stay Substantial Risk for: inability to function, rapid decompensation and med/psych decompensation
[2021-08-29 20:50] VITALS: BP 134/73; PULSE 74; RESP 18; TEMP 36.3; O2SAT 98
[2021-08-29] MEDS: Donepezil HCl 5 MG TABLET PO (21:02)
[2021-08-29] MEDS: HaloperidoL 1 MG TABLET 2 MG PO (21:02)
[2021-08-29 22:00] VITALS: BP 117/66; PULSE 75; RESP 18; O2SAT 98
[2021-08-29] MEDS: Benztropine Mesylate 0.5 MG TABLET PO (22:11)
[2021-08-30 01:36] VITALS: BP 167/74; PULSE 74; RESP 18; O2SAT 96
--- NOTE | 2021-08-30 05:25 | PC.NURSE ---
Pt. took HS Haldol 2mg at 2101. This was her first dose. At approximately 2154, pt. reported her lips and tongue are swelling and feel numb. She reported difficulty swallowing but drank a cup of water without difficulty. Per clipper counters, lips and tongue do not appear swollen. Along with HS haldol, pt. took donepezil, lisinopril and carvedilol at 2101. VS at 2200; 75, 117/66, 18, 98%. Pt. appears to be breathing normally. Dr. Estrada notified at 2157. Cogentin 0.5mg ordered and given with positive effect.
[2021-08-30 06:00] VITALS: BP 140/68; PULSE 83; RESP 18; TEMP 36.6; O2SAT 96
[2021-08-30] MEDS: carvediloL 6.25 MG TABLET PO ×2 (10:42→21:10)
[2021-08-30] MEDS: lisinopriL 10 MG TABLET PO ×2 (10:42→21:09)
[2021-08-30] MEDS: Magnesium Oxide 400 MG TABLET PO (10:42)
[2021-08-30] MEDS: Omeprazole 20 MG CAPSULE.DR PO (10:42)
[2021-08-30] MEDS: Furosemide 40 MG TABLET PO (10:42)
[2021-08-30] MEDS: Clopidogrel Bisulfate 75 MG TABLET PO (10:43)
[2021-08-30] MEDS: amLODIPine Besylate 5 MG TABLET PO (10:43)
[2021-08-30 21:05] VITALS: BP 151/72; PULSE 72; RESP 14; TEMP 36.9; O2SAT 97
[2021-08-30] MEDS: Donepezil HCl 5 MG TABLET PO (21:09)
[2021-08-30] MEDS: OLANZapine 2.5 MG TABLET PO (21:09)
--- NOTE | 2021-08-30 22:10 | HO.PSYCHPN ---
Subjective Subjective Date of Service: 08/30/21 Reason For Visit: Psychosis Subjective Notes: Conditional Voluntary Interim History: Patient felt she was having an adverse reaction on the evening of 08/29/2021 to Haldol. Or Cogentin was ordered. She felt tongue enlargement felt that her lips were swelling denied that she had had this experience previously. Was agreeable to retry olanzapine. Patient flat isolative to her room guarded admits to hallucinations and paranoia but well elaborate Mental Status Exam Mental Status Exam Patient Appearance: Well Grooomed Patient Orientation: Person Level of Consciousness: Awake Patient Behavior: Cooperative Mood Description: Withdrawn Affect Description: Suspicious Patient Cognition Impaired: Yes Ability to Follow Directions: Fair Speech Pattern: Clear Hallucinations: None Delusions: Paranoid Ideation Thought Process: Evasive Thought Content: positive for [place] Depressive Symptoms: Increased Anxiety Judgement: Fair Judgement and Insight: Patient constricted withdrawn suspicious Diagnostics Vital Signs (24Hr): Vital Signs - 24 hr 08/30/21 01:36 08/30/21 06:00 Temperature 97.8 F Pulse Rate 74 83 Respiratory Rate 18 18 Blood Pressure 167/74 H 140/68 H Pulse Oximetry 96 96 Oxygen Delivery Method Room Air Room Air BMI result Body Mass Index 23.8 Labs Results: 08/25/21 21:31 08/27/21 07:58 Medications Medications Current Medications Acetaminophen (Acetaminophen 325 Mg Tablet) 650 mg PO Q6H PRN PRN Reason: Headache/Pain Mild Scale (1-3) Al Hydroxide/Mg Hydroxide (Magnesium Hydrox/Alum Hydrox 30 Ml Oral.Susp) 30 ml PO Q6H PRN PRN Reason: Heartburn/Nausea Amlodipine Besylate (Amlodipine Besylate 5 Mg Tablet) 5 mg PO DAILY [facility]; Protocol Last Admin: 08/30/21 10:43 Dose: 5 mg Benztropine Mesylate (Benztropine Mesylate 0.5 Mg Tablet) 0.5 mg PO BID PRN PRN Reason: Extrapyramidal Effects Last Admin: 08/29/21 22:11 Dose: 0.5 mg Carvedilol (Carvedilol 6.25 Mg Tablet) 6.25 mg PO BID [facility]; Protocol Last Admin: 08/30/21 21:10 Dose: 6.25 mg Clopidogrel Bisulfate (Clopidogrel Bisulfate 75 Mg Tablet) 75 mg PO DAILY [facility] Last Admin: 08/30/21 10:43 Dose: 75 mg Donepezil HCl (Donepezil Hcl 5 Mg Tablet) 5 mg PO BEDTIME [facility] Last Admin: 08/30/21 21:09 Dose: 5 mg Furosemide (Furosemide 40 Mg Tablet) 40 mg PO DAILY [facility]; Protocol Last Admin: 08/30/21 10:42 Dose: 40 mg Lisinopril (Lisinopril 10 Mg Tablet) 10 mg PO BID [facility]; Protocol Last Admin: 08/30/21 21:09 Dose: 10 mg Magnesium Hydroxide (Milk Of Magnesia 30 Ml Oral.Susp) 30 ml PO DAILY PRN PRN Reason: Constipation Magnesium Oxide (Magnesium Oxide 400 Mg Tablet) 400 mg PO DAILY [facility] Last Admin: 08/30/21 10:42 Dose: 400 mg Olanzapine (Olanzapine 2.5 Mg Tablet) 2.5 mg PO BEDTIME [facility] Last Admin: 08/30/21 21:09 Dose: 2.5 mg Omeprazole (Omeprazole 20 Mg Capsule.Dr) 20 mg PO DAILY [facility] Last Admin: 08/30/21 10:42 Dose: 20 mg Potassium Chloride (Potassium Chloride Er 10 Meq Capsule.Er) 10 meq PO DAILY [facility] Last Admin: 08/30/21 10:42 Dose: 10 meq Allergies Allergies Allergy/AdvReac Type Severity Reaction Status Date / Time No Known Allergies [NKA] Allergy Mild NOT Unverified 11/23/19 14:43 APPLICABLE Assessment & Plan Assessment & Plan (1) Schizoaffective disorder, bipolar type: Status: Acute Code(s): F25.0 - Schizoaffective disorder, bipolar type Plan Assessment and plan for 08/30/2021 Patient had possible urgent reaction to Haldol now discontinued. Ney p.r.n. ordered for EPS. [place] 2.5 mg started at bedtime. Patient had increased bingeing on olanzapine consider more weight neutral medication I spent minutes with the patient and/or on the patient floor today, greater than?50% of which was spent counseling/coordinating care. Reason for contiued inpatient stay Substantial Risk for: inability to function and rapid decompensation
[2021-08-31 06:00] VITALS: BP 141/71; PULSE 74; RESP 17; TEMP 36.1; O2SAT 96
[2021-08-31] MEDS: lisinopriL 10 MG TABLET PO ×2 (08:56→20:15)
[2021-08-31] MEDS: Clopidogrel Bisulfate 75 MG TABLET PO (08:56)
[2021-08-31] MEDS: Magnesium Oxide 400 MG TABLET PO (08:56)
[2021-08-31] MEDS: Furosemide 40 MG TABLET PO (08:56)
[2021-08-31] MEDS: amLODIPine Besylate 5 MG TABLET PO (08:56)
[2021-08-31] MEDS: carvediloL 6.25 MG TABLET PO ×2 (08:56→20:15)
[2021-08-31] MEDS: Omeprazole 20 MG CAPSULE.DR PO (08:56)
[2021-08-31 18:00] VITALS: BP 163/75; PULSE 74; RESP 16; TEMP 36.6; O2SAT 98
[2021-08-31] MEDS: OLANZapine 2.5 MG TABLET PO (20:15)
[2021-08-31] MEDS: Donepezil HCl 5 MG TABLET PO (20:15)
--- NOTE | 2021-08-31 21:35 | P.PNPSI_ITS ---
Subjective Subjective Date of Service: 08/31/21 Reason For Visit: Psychosis Subjective Notes: Conditional Voluntary Healthcare Proxy: No Guardianship: No Interim History: Patient remains generally withdrawn isolative to her room. Somewhat guarded regarding reasons for not going out of her room and engaging in the milieu tolerated olanzapine 2.5 mg at bedtime. Does state that previously on olanzapine she develops significant binge eating. No further complaints of tongue mouth or issues that she had with Haldol couple of days ago Medication Compliance: Yes Side effects from medications: Yes (Haldol) Review of Systems Medical Review of Systems: unchanged Mental Status Exam Mental Status Exam Patient Appearance: Well Grooomed Patient Orientation: Person, Place and Situation Level of Consciousness: Awake Patient Behavior: Guarded and Cooperative Mood Description: Withdrawn Affect Description: Suspicious, Constricted and Apprehensive Patient Cognition Impaired: Yes Ability to Follow Directions: Good Speech Pattern: Clear Hallucinations: None Delusions: Paranoid Ideation Thought Process: Evasive Thought Content: positive for [place] Depressive Symptoms: Increased Anxiety Judgement: Fair Judgement and Insight: Patient constricted withdrawn suspicious Diagnostics Vital Signs (24Hr): Vital Signs - 24 hr 08/31/21 06:00 08/31/21 18:00 Temperature 96.9 F 97.9 F Pulse Rate 74 74 Respiratory Rate 17 16 Blood Pressure 141/71 H 163/75 H Pulse Oximetry 96 98 Oxygen Delivery Method Room Air Room Air BMI result Body Mass Index 23.8 Labs Results: 08/25/21 21:31 08/27/21 07:58 Medications Medications Current Medications Acetaminophen (Acetaminophen 325 Mg Tablet) 650 mg PO Q6H PRN PRN Reason: Headache/Pain Mild Scale (1-3) Al Hydroxide/Mg Hydroxide (Magnesium Hydrox/Alum Hydrox 30 Ml Oral.Susp) 30 ml PO Q6H PRN PRN Reason: Heartburn/Nausea Amlodipine Besylate (Amlodipine Besylate 5 Mg Tablet) 5 mg PO DAILY [facility]; Protocol Last Admin: 08/31/21 08:56 Dose: 5 mg Benztropine Mesylate (Benztropine Mesylate 0.5 Mg Tablet) 0.5 mg PO BID PRN PRN Reason: Extrapyramidal Effects Last Admin: 08/29/21 22:11 Dose: 0.5 mg Carvedilol (Carvedilol 6.25 Mg Tablet) 6.25 mg PO BID [facility]; Protocol Last Admin: 08/31/21 20:15 Dose: 6.25 mg Clopidogrel Bisulfate (Clopidogrel Bisulfate 75 Mg Tablet) 75 mg PO DAILY [facility] Last Admin: 08/31/21 08:56 Dose: 75 mg Donepezil HCl (Donepezil Hcl 5 Mg Tablet) 5 mg PO BEDTIME [facility] Last Admin: 08/31/21 20:15 Dose: 5 mg Furosemide (Furosemide 40 Mg Tablet) 40 mg PO DAILY [facility]; Protocol Last Admin: 08/31/21 08:56 Dose: 40 mg Lisinopril (Lisinopril 10 Mg Tablet) 10 mg PO BID [facility]; Protocol Last Admin: 08/31/21 20:15 Dose: 10 mg Magnesium Hydroxide (Milk Of Magnesia 30 Ml Oral.Susp) 30 ml PO DAILY PRN PRN Reason: Constipation Magnesium Oxide (Magnesium Oxide 400 Mg Tablet) 400 mg PO DAILY [facility] Last Admin: 08/31/21 08:56 Dose: 400 mg Olanzapine (Olanzapine 2.5 Mg Tablet) 2.5 mg PO BEDTIME [facility] Last Admin: 08/31/21 20:15 Dose: 2.5 mg Omeprazole (Omeprazole 20 Mg Capsule.Dr) 20 mg PO DAILY [facility] Last Admin: 08/31/21 08:56 Dose: 20 mg Potassium Chloride (Potassium Chloride Er 10 Meq Capsule.Er) 10 meq PO DAILY [facility] Last Admin: 08/31/21 08:56 Dose: 10 meq Allergies Allergies Allergy/AdvReac Type Severity Reaction Status Date / Time haloperidol [From Haldol] AdvReac Numbness Verified 08/31/21 01:44 Assessment & Plan Assessment & Plan (1) Schizoaffective disorder, bipolar type: Status: Acute Code(s): F25.0 - Schizoaffective disorder, bipolar type Plan Assessment and plan for 08/30/2021 Patient had possible urgent reaction to Haldol now discontinued. Ney p.r.n. ordered for EPS. [place] 2.5 mg started at bedtime. Patient had increased bingeing on olanzapine consider more weight neutral medication Assessment and plan for 08/31/2021 Patient tolerated olanzapine 2.5 mg at bedtime. On further discussion with patient had developed significant binge eating while on Zyprexa previously. There is a new combined version of olanzapine which reportedly significantly controls weight gain with olanzapine other option would be to trial a 1st generation antipsychotics such as perphenazine which has a better EPS profile than Haldol or consider agent such as she done referral are with a better weight gain profile I spent minutes with the patient and/or on the patient floor today, greater than?50% of which was spent counseling/coordinating care. Reason for contiued inpatient stay Substantial Risk for: harm to self and rapid decompensation
[2021-09-01 06:00] VITALS: BP 111/59; PULSE 69; RESP 16; TEMP 36.1; O2SAT 97
[2021-09-01] MEDS: Magnesium Oxide 400 MG TABLET PO (08:14)
[2021-09-01] MEDS: amLODIPine Besylate 5 MG TABLET PO (08:14)
[2021-09-01] MEDS: carvediloL 6.25 MG TABLET PO ×2 (08:14→20:20)
[2021-09-01] MEDS: Clopidogrel Bisulfate 75 MG TABLET PO (08:14)
[2021-09-01] MEDS: Omeprazole 20 MG CAPSULE.DR PO (08:14)
[2021-09-01] MEDS: lisinopriL 10 MG TABLET PO ×2 (08:14→20:21)
[2021-09-01] MEDS: Furosemide 40 MG TABLET PO (08:14)
--- NOTE | 2021-09-01 13:56 | HO.PSYCHPN ---
Subjective Subjective Date of Service: 09/01/21 Reason For Visit: Psychosis Subjective Notes: Conditional Voluntary Interim History: The nursing staff rpeorted that the patient was self-dialoguing, spending most of the time on her room, seclussive. On interview, she rperoted allergic reaction with Haldol so she is back on Zyprexa. Mental Status Exam Mental Status Exam Patient Appearance: Well Grooomed Patient Orientation: Person Level of Consciousness: Awake Patient Behavior: Cooperative and Passive Mood Description: Labile Affect Description: Calm Patient Cognition Impaired: Yes Ability to Follow Directions: Good Speech Pattern: Clear Hallucinations: None Delusions: Paranoid Ideation Thought Process: Evasive Thought Content: positive for Slowed Thinking Judgement: Fair Diagnostics Vital Signs (24Hr): Vital Signs - 24 hr 08/31/21 18:00 Temperature 97.9 F Pulse Rate 74 Respiratory Rate 16 Blood Pressure 163/75 H Pulse Oximetry 98 Oxygen Delivery Method Room Air BMI result Body Mass Index 23.8 Labs Results: 08/25/21 21:31 08/27/21 07:58 Medications Medications Current Medications Acetaminophen (Acetaminophen 325 Mg Tablet) 650 mg PO Q6H PRN PRN Reason: Headache/Pain Mild Scale (1-3) Al Hydroxide/Mg Hydroxide (Magnesium Hydrox/Alum Hydrox 30 Ml Oral.Susp) 30 ml PO Q6H PRN PRN Reason: Heartburn/Nausea Amlodipine Besylate (Amlodipine Besylate 5 Mg Tablet) 5 mg PO DAILY [facility]; Protocol Last Admin: 09/01/21 08:14 Dose: 5 mg Benztropine Mesylate (Benztropine Mesylate 0.5 Mg Tablet) 0.5 mg PO BID PRN PRN Reason: Extrapyramidal Effects Last Admin: 08/29/21 22:11 Dose: 0.5 mg Carvedilol (Carvedilol 6.25 Mg Tablet) 6.25 mg PO BID [facility]; Protocol Last Admin: 09/01/21 08:14 Dose: 6.25 mg Clopidogrel Bisulfate (Clopidogrel Bisulfate 75 Mg Tablet) 75 mg PO DAILY [facility] Last Admin: 09/01/21 08:14 Dose: 75 mg Donepezil HCl (Donepezil Hcl 5 Mg Tablet) 5 mg PO BEDTIME [facility] Last Admin: 08/31/21 20:15 Dose: 5 mg Furosemide (Furosemide 40 Mg Tablet) 40 mg PO DAILY [facility]; Protocol Last Admin: 09/01/21 08:14 Dose: 40 mg Lisinopril (Lisinopril 10 Mg Tablet) 10 mg PO BID [facility]; Protocol Last Admin: 09/01/21 08:14 Dose: 10 mg Magnesium Hydroxide (Milk Of Magnesia 30 Ml Oral.Susp) 30 ml PO DAILY PRN PRN Reason: Constipation Magnesium Oxide (Magnesium Oxide 400 Mg Tablet) 400 mg PO DAILY [facility] Last Admin: 09/01/21 08:14 Dose: 400 mg Olanzapine (Olanzapine 2.5 Mg Tablet) 2.5 mg PO BEDTIME [facility] Last Admin: 08/31/21 20:15 Dose: 2.5 mg Omeprazole (Omeprazole 20 Mg Capsule.Dr) 20 mg PO DAILY [facility] Last Admin: 09/01/21 08:14 Dose: 20 mg Potassium Chloride (Potassium Chloride Er 10 Meq Capsule.Er) 10 meq PO DAILY [facility] Last Admin: 09/01/21 08:14 Dose: 10 meq Allergies Allergies Allergy/AdvReac Type Severity Reaction Status Date / Time haloperidol [From Haldol] AdvReac Numbness Verified 08/31/21 01:44 Assessment & Plan Assessment & Plan (1) Schizoaffective disorder, bipolar type: Status: Acute Code(s): F25.0 - Schizoaffective disorder, bipolar type Plan Assessment and plan for 08/30/2021 Patient had possible urgent reaction to Haldol now discontinued. Ney p.r.n. ordered for EPS. [place] 2.5 mg started at bedtime. Patient had increased bingeing on olanzapine consider more weight neutral medication Assessment and plan for 08/31/2021 Patient tolerated olanzapine 2.5 mg at bedtime. On further discussion with patient had developed significant binge eating while on Zyprexa previously. There is a new combined version of olanzapine which reportedly significantly controls weight gain with olanzapine other option would be to trial a 1st generation antipsychotics such as perphenazine which has a better EPS profile than Haldol or consider agent such as she done referral are with a better weight gain profile I spent _20 minutes with the patient and/or on the patient floor today, greater than?50% of which was spent counseling/coordinating care. Reason for contiued inpatient stay Substantial Risk for: inability to function, rapid decompensation and med/psych decompensation
[2021-09-01 18:00] VITALS: BP 141/84; PULSE 78; RESP 17; TEMP 36.6; O2SAT 97
[2021-09-01] MEDS: Donepezil HCl 5 MG TABLET PO (20:21)
[2021-09-01] MEDS: OLANZapine 2.5 MG TABLET PO (20:21)
[2021-09-02 07:30] VITALS: BP 155/74; PULSE 83; RESP 18; TEMP 36.5; O2SAT 96
[2021-09-02] MEDS: Clopidogrel Bisulfate 75 MG TABLET PO (08:33)
[2021-09-02] MEDS: amLODIPine Besylate 5 MG TABLET PO (08:33)
[2021-09-02] MEDS: Omeprazole 20 MG CAPSULE.DR PO (08:33)
[2021-09-02] MEDS: Magnesium Oxide 400 MG TABLET PO (08:33)
[2021-09-02] MEDS: Furosemide 40 MG TABLET PO (08:33)
[2021-09-02] MEDS: lisinopriL 10 MG TABLET PO ×2 (08:33→20:34)
[2021-09-02] MEDS: carvediloL 6.25 MG TABLET PO ×2 (08:33→20:34)
--- NOTE | 2021-09-02 16:04 | HO.PSYCHPN ---
Subjective Subjective Date of Service: 09/02/21 Reason For Visit: Psychosis Subjective Notes: Conditional Voluntary Interim History: the nursing staff reports that she has being guarded and suspicions, isolated, anxious I feel that something is going to happen:. On interview the patient denies new symptoms no over-sedation with Zyprexa 2.5 mg p.o. q.h.s. Mental Status Exam Mental Status Exam Patient Appearance: Appropriate Patient Orientation: Person and Situation Level of Consciousness: Awake Patient Behavior: Guarded, Passive and Suspicious Mood Description: Withdrawn Affect Description: Constricted Patient Cognition Impaired: Yes Ability to Follow Directions: Good Speech Pattern: Clear Hallucinations: None Delusions: Paranoid Ideation Thought Process: Distracted Thought Content: positive for [place] and positive for Loose Associations Judgement: Fair Diagnostics Vital Signs (24Hr): Vital Signs - 24 hr 09/01/21 18:00 09/02/21 07:30 Temperature 97.8 F 97.7 F Pulse Rate 78 83 Respiratory Rate 17 18 Blood Pressure 141/84 H 155/74 H Pulse Oximetry 97 96 Oxygen Delivery Method Room Air Room Air BMI result Body Mass Index 23.8 Labs Results: 08/25/21 21:31 08/27/21 07:58 Medications Medications Current Medications Acetaminophen (Acetaminophen 325 Mg Tablet) 650 mg PO Q6H PRN PRN Reason: Headache/Pain Mild Scale (1-3) Al Hydroxide/Mg Hydroxide (Magnesium Hydrox/Alum Hydrox 30 Ml Oral.Susp) 30 ml PO Q6H PRN PRN Reason: Heartburn/Nausea Amlodipine Besylate (Amlodipine Besylate 5 Mg Tablet) 5 mg PO DAILY [facility]; Protocol Last Admin: 09/02/21 08:33 Dose: 5 mg Benztropine Mesylate (Benztropine Mesylate 0.5 Mg Tablet) 0.5 mg PO BID PRN PRN Reason: Extrapyramidal Effects Last Admin: 08/29/21 22:11 Dose: 0.5 mg Carvedilol (Carvedilol 6.25 Mg Tablet) 6.25 mg PO BID [facility]; Protocol Last Admin: 09/02/21 08:33 Dose: 6.25 mg Clopidogrel Bisulfate (Clopidogrel Bisulfate 75 Mg Tablet) 75 mg PO DAILY [facility] Last Admin: 09/02/21 08:33 Dose: 75 mg Donepezil HCl (Donepezil Hcl 5 Mg Tablet) 5 mg PO BEDTIME [facility] Last Admin: 09/01/21 20:21 Dose: 5 mg Furosemide (Furosemide 40 Mg Tablet) 40 mg PO DAILY [facility]; Protocol Last Admin: 09/02/21 08:33 Dose: 40 mg Lisinopril (Lisinopril 10 Mg Tablet) 10 mg PO BID [facility]; Protocol Last Admin: 09/02/21 08:33 Dose: 10 mg Lorazepam (Lorazepam 0.5 Mg Tablet) 0.25 mg PO Q6H PRN PRN Reason: Anxiety Magnesium Hydroxide (Milk Of Magnesia 30 Ml Oral.Susp) 30 ml PO DAILY PRN PRN Reason: Constipation Magnesium Oxide (Magnesium Oxide 400 Mg Tablet) 400 mg PO DAILY [facility] Last Admin: 09/02/21 08:33 Dose: 400 mg Olanzapine (Olanzapine 2.5 Mg Tablet) 2.5 mg PO BEDTIME [facility] Last Admin: 09/01/21 20:21 Dose: 2.5 mg Omeprazole (Omeprazole 20 Mg Capsule.Dr) 20 mg PO DAILY [facility] Last Admin: 09/02/21 08:33 Dose: 20 mg Potassium Chloride (Potassium Chloride Er 10 Meq Capsule.Er) 10 meq PO DAILY [facility] Last Admin: 09/02/21 08:33 Dose: 10 meq Allergies Allergies Allergy/AdvReac Type Severity Reaction Status Date / Time haloperidol [From Haldol] AdvReac Numbness Verified 08/31/21 01:44 Assessment & Plan Assessment & Plan (1) Schizoaffective disorder, bipolar type: Status: Acute Code(s): F25.0 - Schizoaffective disorder, bipolar type Plan Assessment and plan for 08/30/2021 Patient had possible urgent reaction to Haldol now discontinued. Ney p.r.n. ordered for EPS. [place] 2.5 mg started at bedtime. Patient had increased bingeing on olanzapine consider more weight neutral medication Assessment and plan for 08/31/2021 Patient tolerated olanzapine 2.5 mg at bedtime. On further discussion with patient had developed significant binge eating while on Zyprexa previously. There is a new combined version of olanzapine which reportedly significantly controls weight gain with olanzapine other option would be to trial a 1st generation antipsychotics such as perphenazine which has a better EPS profile than Haldol or consider agent such as she done referral are with a better weight gain profile plan 1. Keep same medications. 2.Ativan 0.25 p.o. q.6 p.r.n. anxiety I spent __20____ minutes with the patient and/or on the patient floor today, greater than?50% of which was spent counseling/coordinating care. Reason for contiued inpatient stay Substantial Risk for: inability to function, rapid decompensation and med/psych decompensation
[2021-09-02] MEDS: OLANZapine 2.5 MG TABLET PO (20:34)
[2021-09-02] MEDS: Donepezil HCl 5 MG TABLET PO (20:34)
[2021-09-02 21:00] VITALS: BP 139/65; PULSE 76; RESP 18; TEMP 36.9; O2SAT 97
[2021-09-03 07:30] VITALS: BP 120/62; PULSE 74; RESP 16; TEMP 36.7; O2SAT 97
[2021-09-03] MEDS: lisinopriL 10 MG TABLET PO ×2 (08:37→20:08)
[2021-09-03] MEDS: Furosemide 40 MG TABLET PO (08:37)
[2021-09-03] MEDS: Magnesium Oxide 400 MG TABLET PO (08:37)
[2021-09-03] MEDS: Clopidogrel Bisulfate 75 MG TABLET PO (08:37)
[2021-09-03] MEDS: carvediloL 6.25 MG TABLET PO ×2 (08:37→20:08)
[2021-09-03] MEDS: Omeprazole 20 MG CAPSULE.DR PO (08:37)
[2021-09-03] MEDS: amLODIPine Besylate 5 MG TABLET PO (08:39)
--- NOTE | 2021-09-03 15:07 | P.PNPSI_ITS ---
Subjective Subjective Date of Service: 09/03/21 Reason For Visit: Psychosis Subjective Notes: Conditional Voluntary Interim History: The nursing staff reported the patient has been quiet and withdrawn, masking most of her paranoid symptoms. Apparently, her outpatient provider canceled her treatment. Today we did a Bacon test and she scored 14/30. On interview the patient denies new symptoms Mental Status Exam Mental Status Exam Patient Appearance: Appropriate Patient Orientation: Person and Situation Level of Consciousness: Awake Patient Behavior: Guarded and Passive Mood Description: Withdrawn Affect Description: Constricted Patient Cognition Impaired: Yes Ability to Follow Directions: Good Speech Pattern: Clear Hallucinations: None Delusions: Paranoid Ideation Thought Process: Distracted Judgement: Fair Diagnostics Vital Signs (24Hr): Vital Signs - 24 hr 09/02/21 21:00 09/03/21 07:30 Temperature 98.5 F 98.1 F Pulse Rate 76 74 Respiratory Rate 18 16 Blood Pressure 139/65 120/62 Pulse Oximetry 97 97 Oxygen Delivery Method Room Air Room Air BMI result Body Mass Index 23.8 Labs Results: 08/25/21 21:31 08/27/21 07:58 Medications Medications Current Medications Acetaminophen (Acetaminophen 325 Mg Tablet) 650 mg PO Q6H PRN PRN Reason: Headache/Pain Mild Scale (1-3) Al Hydroxide/Mg Hydroxide (Magnesium Hydrox/Alum Hydrox 30 Ml Oral.Susp) 30 ml PO Q6H PRN PRN Reason: Heartburn/Nausea Amlodipine Besylate (Amlodipine Besylate 5 Mg Tablet) 5 mg PO DAILY [facility]; Protocol Last Admin: 09/03/21 08:39 Dose: 5 mg Benztropine Mesylate (Benztropine Mesylate 0.5 Mg Tablet) 0.5 mg PO BID PRN PRN Reason: Extrapyramidal Effects Last Admin: 08/29/21 22:11 Dose: 0.5 mg Carvedilol (Carvedilol 6.25 Mg Tablet) 6.25 mg PO BID [facility]; Protocol Last Admin: 09/03/21 08:37 Dose: 6.25 mg Clopidogrel Bisulfate (Clopidogrel Bisulfate 75 Mg Tablet) 75 mg PO DAILY [facility] Last Admin: 09/03/21 08:37 Dose: 75 mg Donepezil HCl (Donepezil Hcl 5 Mg Tablet) 5 mg PO BEDTIME [facility] Last Admin: 09/02/21 20:34 Dose: 5 mg Furosemide (Furosemide 40 Mg Tablet) 40 mg PO DAILY [facility]; Protocol Last Admin: 09/03/21 08:37 Dose: 40 mg Lisinopril (Lisinopril 10 Mg Tablet) 10 mg PO BID [facility]; Protocol Last Admin: 09/03/21 08:37 Dose: 10 mg Lorazepam (Lorazepam 0.5 Mg Tablet) 0.25 mg PO Q6H PRN PRN Reason: Anxiety Magnesium Hydroxide (Milk Of Magnesia 30 Ml Oral.Susp) 30 ml PO DAILY PRN PRN Reason: Constipation Magnesium Oxide (Magnesium Oxide 400 Mg Tablet) 400 mg PO DAILY [facility] Last Admin: 09/03/21 08:37 Dose: 400 mg Olanzapine (Olanzapine 2.5 Mg Tablet) 2.5 mg PO BEDTIME [facility] Last Admin: 09/02/21 20:34 Dose: 2.5 mg Omeprazole (Omeprazole 20 Mg Capsule.Dr) 20 mg PO DAILY [facility] Last Admin: 09/03/21 08:37 Dose: 20 mg Potassium Chloride (Potassium Chloride Er 10 Meq Capsule.Er) 10 meq PO DAILY [facility] Last Admin: 09/03/21 08:37 Dose: 10 meq Allergies Allergies Allergy/AdvReac Type Severity Reaction Status Date / Time haloperidol [From Haldol] AdvReac Numbness Verified 08/31/21 01:44 Assessment & Plan Assessment & Plan (1) Schizoaffective disorder, bipolar type: Status: Acute Code(s): F25.0 - Schizoaffective disorder, bipolar type Plan Assessment and plan for 08/30/2021 Patient had possible urgent reaction to Haldol now discontinued. Cogentin p.r.n. ordered for EPS. [place] 2.5 mg started at bedtime. Patient had increased bingeing on olanzapine consider more weight neutral medication Assessment and plan for 08/31/2021 Patient tolerated olanzapine 2.5 mg at bedtime. On further discussion with patient had developed significant binge eating while on Zyprexa previously. There is a new combined version of olanzapine which reportedly significantly controls weight gain with olanzapine other option would be to trial a 1st generation antipsychotics such as perphenazine which has a better EPS profile than Haldol or consider agent such as she done referral are with a better weight gain profile plan 1. Increase Zyprexa up to 3.75 mg. 2.Ativan 0.25 p.o. q.6 p.r.n. anxiety 3. MOCA test scored 14/30 I spent ___20___ minutes with the patient and/or on the patient floor today, greater than?50% of which was spent counseling/coordinating care. Reason for contiued inpatient stay Substantial Risk for: inability to function, rapid decompensation and med/psych decompensation
[2021-09-03 18:00] VITALS: BP 145/72; PULSE 63; RESP 14; TEMP 36.6; O2SAT 97
--- NOTE | 2021-09-03 18:54 | PC.NURSE ---
Patient son picked up keys and 2 id cards from patient belongings closet.
[2021-09-03] MEDS: OLANZapine 2.5 MG TABLET 3.75 MG PO (20:07)
[2021-09-03] MEDS: Donepezil HCl 5 MG TABLET PO (20:08)
[2021-09-04 07:00] VITALS: BMI 24.3
[2021-09-04] MEDS: Clopidogrel Bisulfate 75 MG TABLET PO (08:48)
[2021-09-04] MEDS: Magnesium Oxide 400 MG TABLET PO (08:48)
[2021-09-04] MEDS: amLODIPine Besylate 5 MG TABLET PO (08:48)
[2021-09-04] MEDS: Omeprazole 20 MG CAPSULE.DR PO (08:49)
[2021-09-04] MEDS: carvediloL 6.25 MG TABLET PO ×2 (08:49→20:06)
[2021-09-04] MEDS: Furosemide 40 MG TABLET PO (08:49)
[2021-09-04] MEDS: lisinopriL 10 MG TABLET PO ×2 (08:49→20:06)
--- NOTE | 2021-09-04 16:26 | HO.PSYCHPN ---
Subjective Subjective Date of Service: 09/04/21 Reason For Visit: Psychosis Subjective Notes: Conditional Voluntary Interim History: The nursing staff reported the patient has been quiet suspicious and guarded most of the time in her room. She has court on her [place] . On interview the patient denies new symptoms she feels fine Mental Status Exam Mental Status Exam Patient Appearance: Well Grooomed Patient Orientation: Person and Situation Level of Consciousness: Awake Patient Behavior: Cooperative Mood Description: Withdrawn Affect Description: Constricted Patient Cognition Impaired: Yes Ability to Follow Directions: Good Speech Pattern: Clear Hallucinations: None Delusions: Paranoid Ideation Thought Process: Distracted and Evasive Thought Content: positive for [place] and positive for Poverty of Content Judgement: Fair Diagnostics Vital Signs (24Hr): Vital Signs - 24 hr 09/03/21 18:00 Temperature 97.9 F Pulse Rate 63 Respiratory Rate 14 Blood Pressure 145/72 H Pulse Oximetry 97 Oxygen Delivery Method Room Air BMI result Body Mass Index 24.3 Labs Results: 08/25/21 21:31 08/27/21 07:58 Medications Medications Current Medications Acetaminophen (Acetaminophen 325 Mg Tablet) 650 mg PO Q6H PRN PRN Reason: Headache/Pain Mild Scale (1-3) Al Hydroxide/Mg Hydroxide (Magnesium Hydrox/Alum Hydrox 30 Ml Oral.Susp) 30 ml PO Q6H PRN PRN Reason: Heartburn/Nausea Amlodipine Besylate (Amlodipine Besylate 5 Mg Tablet) 5 mg PO DAILY [facility]; Protocol Last Admin: 09/04/21 08:48 Dose: 5 mg Benztropine Mesylate (Benztropine Mesylate 0.5 Mg Tablet) 0.5 mg PO BID PRN PRN Reason: Extrapyramidal Effects Last Admin: 08/29/21 22:11 Dose: 0.5 mg Carvedilol (Carvedilol 6.25 Mg Tablet) 6.25 mg PO BID [facility]; Protocol Last Admin: 09/04/21 08:49 Dose: 6.25 mg Clopidogrel Bisulfate (Clopidogrel Bisulfate 75 Mg Tablet) 75 mg PO DAILY [facility] Last Admin: 09/04/21 08:48 Dose: 75 mg Donepezil HCl (Donepezil Hcl 5 Mg Tablet) 5 mg PO BEDTIME [facility] Last Admin: 09/03/21 20:08 Dose: 5 mg Furosemide (Furosemide 40 Mg Tablet) 40 mg PO DAILY [facility]; Protocol Last Admin: 09/04/21 08:49 Dose: 40 mg Lisinopril (Lisinopril 10 Mg Tablet) 10 mg PO BID [facility]; Protocol Last Admin: 09/04/21 08:49 Dose: 10 mg Lorazepam (Lorazepam 0.5 Mg Tablet) 0.25 mg PO Q6H PRN PRN Reason: Anxiety Magnesium Hydroxide (Milk Of Magnesia 30 Ml Oral.Susp) 30 ml PO DAILY PRN PRN Reason: Constipation Magnesium Oxide (Magnesium Oxide 400 Mg Tablet) 400 mg PO DAILY [facility] Last Admin: 09/04/21 08:48 Dose: 400 mg Olanzapine (Olanzapine 2.5 Mg Tablet) 3.75 mg PO BEDTIME [facility] Last Admin: 09/03/21 20:07 Dose: 3.75 mg Omeprazole (Omeprazole 20 Mg Capsule.Dr) 20 mg PO DAILY [facility] Last Admin: 09/04/21 08:49 Dose: 20 mg Potassium Chloride (Potassium Chloride Er 10 Meq Capsule.Er) 10 meq PO DAILY [facility] Last Admin: 09/04/21 08:49 Dose: 10 meq Allergies Allergies Allergy/AdvReac Type Severity Reaction Status Date / Time haloperidol [From Haldol] AdvReac Numbness Verified 08/31/21 01:44 Assessment & Plan Assessment & Plan (1) Schizoaffective disorder, bipolar type: Status: Acute Code(s): F25.0 - Schizoaffective disorder, bipolar type Plan Assessment and plan for 08/30/2021 Patient had possible urgent reaction to Haldol now discontinued. Cogentin p.r.n. ordered for EPS. [place] 2.5 mg started at bedtime. Patient had increased bingeing on olanzapine consider more weight neutral medication Assessment and plan for 08/31/2021 Patient tolerated olanzapine 2.5 mg at bedtime. On further discussion with patient had developed significant binge eating while on Zyprexa previously. There is a new combined version of olanzapine which reportedly significantly controls weight gain with olanzapine other option would be to trial a 1st generation antipsychotics such as perphenazine which has a better EPS profile than Haldol or consider agent such as she done referral are with a better weight gain profile plan 1. Increase Zyprexa up to 3.75 mg. 2.Ativan 0.25 p.o. q.6 p.r.n. anxiety 3. MOCA test scored I spent __20____ minutes with the patient and/or on the patient floor today, greater than?50% of which was spent counseling/coordinating care. Reason for contiued inpatient stay Substantial Risk for: inability to function, rapid decompensation and med/psych decompensation
[2021-09-04 18:00] VITALS: BP 171/75; PULSE 76; RESP 14; TEMP 36.5; O2SAT 97
[2021-09-04] MEDS: Donepezil HCl 5 MG TABLET PO (20:05)
[2021-09-04] MEDS: OLANZapine 2.5 MG TABLET 3.75 MG PO (20:06)
[2021-09-05 07:40] VITALS: BP 158/76; PULSE 75; RESP 15; TEMP 36.5; O2SAT 96
[2021-09-05] MEDS: lisinopriL 10 MG TABLET PO ×2 (08:15→20:22)
[2021-09-05] MEDS: carvediloL 6.25 MG TABLET PO ×2 (08:15→20:22)
[2021-09-05] MEDS: Clopidogrel Bisulfate 75 MG TABLET PO (08:15)
[2021-09-05] MEDS: Magnesium Oxide 400 MG TABLET PO (08:15)
[2021-09-05] MEDS: amLODIPine Besylate 5 MG TABLET PO (08:15)
[2021-09-05] MEDS: Omeprazole 20 MG CAPSULE.DR PO (08:16)
[2021-09-05] MEDS: Furosemide 40 MG TABLET PO (08:16)
--- NOTE | 2021-09-05 13:58 | P.PNPSI_ITS ---
Subjective Subjective Date of Service: 09/05/21 Reason For Visit: Psychosis Subjective Notes: Conditional Voluntary Interim History: The nursing staff reported the patient has been isolative, not interacting with peers or staff. She has been fully compliant with treatment. On interview the patient denies new symptoms she states that she is doing fine but she looks internally preoccupied. No evidence of over-sedation at this moment. Mental Status Exam Mental Status Exam Patient Appearance: Appropriate Patient Orientation: Person and Situation Level of Consciousness: Awake Patient Behavior: Cooperative Mood Description: Constricted Affect Description: Labile Patient Cognition Impaired: Yes Ability to Follow Directions: Good Speech Pattern: Clear Hallucinations: None Delusions: Paranoid Ideation Thought Process: Linear Thought Content: positive for Circumstantial Judgement: Fair Diagnostics Vital Signs (24Hr): Vital Signs - 24 hr 09/04/21 18:00 09/05/21 07:40 Temperature 97.7 F 97.7 F Pulse Rate 76 75 Respiratory Rate 14 15 Blood Pressure 171/75 H 158/76 H Pulse Oximetry 97 96 Oxygen Delivery Method Room Air BMI result Body Mass Index 24.3 Labs Results: 08/25/21 21:31 08/27/21 07:58 Medications Medications Current Medications Acetaminophen (Acetaminophen 325 Mg Tablet) 650 mg PO Q6H PRN PRN Reason: Headache/Pain Mild Scale (1-3) Al Hydroxide/Mg Hydroxide (Magnesium Hydrox/Alum Hydrox 30 Ml Oral.Susp) 30 ml PO Q6H PRN PRN Reason: Heartburn/Nausea Amlodipine Besylate (Amlodipine Besylate 5 Mg Tablet) 5 mg PO DAILY [facility]; Protocol Last Admin: 09/05/21 08:15 Dose: 5 mg Benztropine Mesylate (Benztropine Mesylate 0.5 Mg Tablet) 0.5 mg PO BID PRN PRN Reason: Extrapyramidal Effects Last Admin: 08/29/21 22:11 Dose: 0.5 mg Carvedilol (Carvedilol 6.25 Mg Tablet) 6.25 mg PO BID [facility]; Protocol Last Admin: 09/05/21 08:15 Dose: 6.25 mg Clopidogrel Bisulfate (Clopidogrel Bisulfate 75 Mg Tablet) 75 mg PO DAILY [facility] Last Admin: 09/05/21 08:15 Dose: 75 mg Donepezil HCl (Donepezil Hcl 5 Mg Tablet) 5 mg PO BEDTIME [facility] Last Admin: 09/04/21 20:05 Dose: 5 mg Furosemide (Furosemide 40 Mg Tablet) 40 mg PO DAILY [facility]; Protocol Last Admin: 09/05/21 08:16 Dose: 40 mg Lisinopril (Lisinopril 10 Mg Tablet) 10 mg PO BID [facility]; Protocol Last Admin: 09/05/21 08:15 Dose: 10 mg Lorazepam (Lorazepam 0.5 Mg Tablet) 0.25 mg PO Q6H PRN PRN Reason: Anxiety Magnesium Hydroxide (Milk Of Magnesia 30 Ml Oral.Susp) 30 ml PO DAILY PRN PRN Reason: Constipation Magnesium Oxide (Magnesium Oxide 400 Mg Tablet) 400 mg PO DAILY [facility] Last Admin: 09/05/21 08:15 Dose: 400 mg Olanzapine (Olanzapine 2.5 Mg Tablet) 3.75 mg PO BEDTIME [facility] Last Admin: 09/04/21 20:06 Dose: 3.75 mg Omeprazole (Omeprazole 20 Mg Capsule.Dr) 20 mg PO DAILY [facility] Last Admin: 09/05/21 08:16 Dose: 20 mg Potassium Chloride (Potassium Chloride Er 10 Meq Capsule.Er) 10 meq PO DAILY [facility] Last Admin: 09/05/21 08:16 Dose: 10 meq Allergies Allergies Allergy/AdvReac Type Severity Reaction Status Date / Time haloperidol [From Haldol] AdvReac Numbness Verified 08/31/21 01:44 Assessment & Plan Assessment & Plan (1) Schizoaffective disorder, bipolar type: Status: Acute Code(s): F25.0 - Schizoaffective disorder, bipolar type Plan Assessment and plan for 08/30/2021 Patient had possible urgent reaction to Haldol now discontinued. Ney p.r.n. ordered for EPS. [place] a Pean 2.5 mg started at bedtime. Patient had increased bingeing on olanzapine consider more weight neutral medication Assessment and plan for 08/31/2021 Patient tolerated olanzapine 2.5 mg at bedtime. On further discussion with patient had developed significant binge eating while on Zyprexa previously. The re is a new combined version of olanzapine which reportedly significantly controls weight gain with olanzapine other option would be to trial a 1st generation antipsychotics such as perphenazine which has a better EPS profile than Haldol or consider agent such as she done referral are with a better weight gain profile plan 1. Increase Zyprexa up to 3.75 mg. 2.Ativan 0.25 p.o. q.6 p.r.n. anxiety 3. MOCA test scored 14/30 , we will redo the test next week. I spent ___20___ minutes with the patient and/or on the patient floor today, greater than?50% of which was spent counseling/coordinating care. Reason for contiued inpatient stay Substantial Risk for: inability to function, rapid decompensation and med/psych decompensation
[2021-09-05 20:00] VITALS: BP 134/70; PULSE 75; RESP 16; TEMP 35.9; O2SAT 96
[2021-09-05] MEDS: Donepezil HCl 5 MG TABLET PO (20:22)
[2021-09-05] MEDS: OLANZapine 2.5 MG TABLET 3.75 MG PO (20:22)
[2021-09-06 07:30] VITALS: BP 149/70; PULSE 75; RESP 18; TEMP 36.6; O2SAT 96
[2021-09-06] MEDS: carvediloL 6.25 MG TABLET PO ×2 (08:14→21:11)
[2021-09-06] MEDS: amLODIPine Besylate 5 MG TABLET PO (08:14)
[2021-09-06] MEDS: lisinopriL 10 MG TABLET PO ×2 (08:14→21:11)
[2021-09-06] MEDS: Omeprazole 20 MG CAPSULE.DR PO (08:15)
[2021-09-06] MEDS: Magnesium Oxide 400 MG TABLET PO (08:18)
[2021-09-06] MEDS: Clopidogrel Bisulfate 75 MG TABLET PO (08:18)
[2021-09-06] MEDS: Furosemide 40 MG TABLET PO (08:19)
--- NOTE | 2021-09-06 18:28 | PC.NURSE ---
Patient continues to be suspicious of staff. Following visit from covering provider patient stated, I gave information to the wrong person and I don't know who it was. The only person she saw was NEWS EDITOR Tayler Shah. Patient continued to perseverate on the idea that two people had been in to see her. She then attempted to call her son to discuss the issue. I don't believe the call was completed.
[2021-09-06 20:00] VITALS: BP 141/70; PULSE 71; RESP 18; TEMP 36.6; O2SAT 98
[2021-09-06] MEDS: OLANZapine 2.5 MG TABLET 3.75 MG PO (21:11)
[2021-09-06] MEDS: Donepezil HCl 5 MG TABLET PO (21:11)
--- NOTE | 2021-09-06 23:49 | HO.PSYCHPN ---
Subjective Subjective Date of Service: 09/06/21 Reason For Visit: Psychosis Subjective Notes: Pathak Warning Interim History: Patient seen and discussed with team. Patient evaluated today and upon interview pt is found in her room, lights low. Pt says I feel drowsy all the time, denies that this is not baseline and says she is sleeping alright at night. Appetite is good. Asks to be re-started on home meds of Multivitamin, aspirin 81, vit D, probiotic (not on formulary). Says she feels safe, denies SI/SIB/HI. Denies AH. Says she is sometimes anxious when I go out amongst the people. Mood is okay. Denies anger or agitation. Says I want to go home. Pt later asks T/W to return to her room and says that T/W typed something about her son and shared the info with staff on the unit and now people are laughing at me. Pt was not able to be convinced otherwise. In the milieu, patient is safe but isolative and withdrawn, suspicious. Medication Compliance: Yes Side effects from medications: No Attending Groups: No Review of Systems Acute medical concerns: No Medical Review of Systems: unchanged Mental Status Exam Mental Status Exam Narrative: Patient Appearance: Appropriate Patient Orientation: Person and Situation Level of Consciousness: Awake Patient Behavior: Cooperative Mood Description: Constricted Affect Description: Labile Patient Cognition Impaired: Yes Ability to Follow Directions: Good Speech Pattern: Clear Hallucinations: None Delusions: Paranoid Ideation Thought Process: Linear Thought Content: positive for Circumstantial Judgement: Fair Diagnostics Vital Signs (24Hr): Vital Signs - 24 hr 09/06/21 20:00 09/07/21 07:30 Temperature 97.8 F 97.7 F Pulse Rate 71 78 Respiratory Rate 18 16 Blood Pressure 141/70 H 157/70 H Pulse Oximetry 98 96 Oxygen Delivery Method Room Air Room Air BMI result Body Mass Index 24.3 Labs Results: 08/25/21 21:31 08/27/21 07:58 Medications Medications Current Medications Acetaminophen (Acetaminophen 325 Mg Tablet) 650 mg PO Q6H PRN PRN Reason: Headache/Pain Mild Scale (1-3) Al Hydroxide/Mg Hydroxide (Magnesium Hydrox/Alum Hydrox 30 Ml Oral.Susp) 30 ml PO Q6H PRN PRN Reason: Heartburn/Nausea Amlodipine Besylate (Amlodipine Besylate 5 Mg Tablet) 5 mg PO DAILY [facility]; Protocol Last Admin: 09/07/21 08:42 Dose: 5 mg Aspirin (Aspirin 81 Mg Tab.Chew) 81 mg PO DAILY [facility] Last Admin: 09/07/21 08:43 Dose: 81 mg Benztropine Mesylate (Benztropine Mesylate 0.5 Mg Tablet) 0.5 mg PO BID PRN PRN Reason: Extrapyramidal Effects Last Admin: 08/29/21 22:11 Dose: 0.5 mg Carvedilol (Carvedilol 6.25 Mg Tablet) 6.25 mg PO BID [facility]; Protocol Last Admin: 09/07/21 08:44 Dose: 6.25 mg Clopidogrel Bisulfate (Clopidogrel Bisulfate 75 Mg Tablet) 75 mg PO DAILY [facility] Last Admin: 09/07/21 08:42 Dose: 75 mg Donepezil HCl (Donepezil Hcl 5 Mg Tablet) 5 mg PO BEDTIME [facility] Last Admin: 09/06/21 21:11 Dose: 5 mg Furosemide (Furosemide 40 Mg Tablet) 40 mg PO DAILY [facility]; Protocol Last Admin: 09/07/21 08:43 Dose: 40 mg Lisinopril (Lisinopril 10 Mg Tablet) 10 mg PO BID [facility]; Protocol Last Admin: 09/07/21 08:43 Dose: 10 mg Lorazepam (Lorazepam 0.5 Mg Tablet) 0.25 mg PO Q6H PRN PRN Reason: Anxiety Magnesium Hydroxide (Milk Of Magnesia 30 Ml Oral.Susp) 30 ml PO DAILY PRN PRN Reason: Constipation Magnesium Oxide (Magnesium Oxide 400 Mg Tablet) 400 mg PO DAILY [facility] Last Admin: 09/07/21 08:43 Dose: 400 mg Multivitamins/Vitamin C (Multivitamin Tablet) 1 tab PO DAILY [facility] Last Admin: 09/07/21 08:44 Dose: 1 tab Olanzapine (Olanzapine 2.5 Mg Tablet) 3.75 mg PO BEDTIME [facility] Last Admin: 09/06/21 21:11 Dose: 3.75 mg Omeprazole (Omeprazole 20 Mg Capsule.Dr) 20 mg PO DAILY [facility] Last Admin: 09/07/21 08:43 Dose: 20 mg Potassium Chloride (Potassium Chloride Er 10 Meq Capsule.Er) 10 meq PO DAILY [facility] Last Admin: 09/07/21 08:43 Dose: 10 meq Vitamin D (Cholecalciferol (Vitamin D3) 25 Mcg Tablet) 25 mcg PO DAILY [facility] Last Admin: 09/07/21 08:43 Dose: 25 mcg Allergies Allergies Allergy/AdvReac Type Severity Reaction Status Date / Time haloperidol [From Haldol] AdvReac Numbness Verified 08/31/21 01:44 Assessment & Plan Assessment & Plan (1) Schizoaffective disorder, bipolar type: Status: Acute Code(s): F25.0 - Schizoaffective disorder, bipolar type Plan Assessment and plan for 08/30/2021 Patient had possible urgent reaction to Haldol now discontinued. Cogentin p.r.n. ordered for EPS. [place] a [place]an 2.5 mg started at bedtime. Patient had increased bingeing on olanzapine consider more weight neutral medication Assessment and plan for 08/31/2021 Patient tolerated olanzapine 2.5 mg at bedtime. On further discussion with patient had developed significant binge eating while on Zyprexa previously. There is a new combined version of olanzapine which reportedly significantly controls weight gain with olanzapine other option would be to trial a 1st generation antipsychotics such as perphenazine which has a better EPS profile than Haldol or consider agent such as she done referral are with a better weight gain profile plan 1. Increase Zyprexa up to 3.75 mg. 2.Ativan 0.25 p.o. q.6 p.r.n. anxiety 3. MOCA test scored 14/30 , we will redo the test next week. 7/2: re-start home meds multivitamin, aspirin, and vit D per pt request I spent minutes with the patient and/or on the patient floor today, greater than?50% of which was spent counseling/coordinating care. Patient educated on: medication risk/benefits Reason for contiued inpatient stay Substantial Risk for: inability to function, rapid decompensation and med/psych decompensation
[2021-09-07 07:30] VITALS: BP 157/70; PULSE 78; RESP 16; TEMP 36.5; O2SAT 96
[2021-09-07] MEDS: Clopidogrel Bisulfate 75 MG TABLET PO (08:42)
[2021-09-07] MEDS: amLODIPine Besylate 5 MG TABLET PO (08:42)
[2021-09-07] MEDS: Magnesium Oxide 400 MG TABLET PO (08:43)
[2021-09-07] MEDS: Cholecalciferol (Vitamin D3) 25 MCG TABLET PO (08:43)
[2021-09-07] MEDS: Furosemide 40 MG TABLET PO (08:43)
[2021-09-07] MEDS: Omeprazole 20 MG CAPSULE.DR PO (08:43)
[2021-09-07] MEDS: Aspirin 81 MG TAB.CHEW PO (08:43)
[2021-09-07] MEDS: lisinopriL 10 MG TABLET PO ×2 (08:43→20:53)
[2021-09-07] MEDS: carvediloL 6.25 MG TABLET PO ×2 (08:44→20:53)
[2021-09-07] MEDS: Multivitamin TABLET 1 TAB PO (08:44)
--- NOTE | 2021-09-07 11:49 | P.PNPSI_ITS ---
Subjective Subjective Date of Service: 09/07/21 Reason For Visit: Psychosis Subjective Notes: Pathak Warning Interim History: Patient seen and discussed with team. Patient evaluated today and upon interview pt says she is mallorie sleepy today. Sleep at night is good. Feels mallorie anxious and asks when am I gonna be able to leave? Mood is alright, good. In the milieu, patient is safe but isolative. Says she feels safe. Medication Compliance: Yes Side effects from medications: No Attending Groups: No Review of Systems Acute medical concerns: No Medical Review of Systems: unchanged Mental Status Exam Mental Status Exam Narrative: Patient Appearance: Appropriate Patient Orientation: Person and Situation Level of Consciousness: Awake Patient Behavior: Cooperative Mood Description: Constricted Affect Description: Labile Patient Cognition Impaired: Yes Ability to Follow Directions: Good Speech Pattern: Clear Hallucinations: None Delusions: Paranoid Ideation Thought Process: Linear Thought Content: positive for Circumstantial Judgement: Fair Diagnostics Vital Signs (24Hr): Vital Signs - 24 hr 09/06/21 20:00 09/07/21 07:30 Temperature 97.8 F 97.7 F Pulse Rate 71 78 Respiratory Rate 18 16 Blood Pressure 141/70 H 157/70 H Pulse Oximetry 98 96 Oxygen Delivery Method Room Air Room Air BMI result Body Mass Index 24.3 Labs Results: 08/25/21 21:31 08/27/21 07:58 Medications Medications Current Medications Acetaminophen (Acetaminophen 325 Mg Tablet) 650 mg PO Q6H PRN PRN Reason: Headache/Pain Mild Scale (1-3) Al Hydroxide/Mg Hydroxide (Magnesium Hydrox/Alum Hydrox 30 Ml Oral.Susp) 30 ml PO Q6H PRN PRN Reason: Heartburn/Nausea Amlodipine Besylate (Amlodipine Besylate 5 Mg Tablet) 5 mg PO DAILY [facility]; Protocol Last Admin: 09/07/21 08:42 Dose: 5 mg Aspirin (Aspirin 81 Mg Tab.Chew) 81 mg PO DAILY [facility] Last Admin: 09/07/21 08:43 Dose: 81 mg Benztropine Mesylate (Benztropine Mesylate 0.5 Mg Tablet) 0.5 mg PO BID PRN PRN Reason: Extrapyramidal Effects Last Admin: 08/29/21 22:11 Dose: 0.5 mg Carvedilol (Carvedilol 6.25 Mg Tablet) 6.25 mg PO BID [facility]; Protocol Last Admin: 09/07/21 08:44 Dose: 6.25 mg Clopidogrel Bisulfate (Clopidogrel Bisulfate 75 Mg Tablet) 75 mg PO DAILY [facility] Last Admin: 09/07/21 08:42 Dose: 75 mg Donepezil HCl (Donepezil Hcl 5 Mg Tablet) 5 mg PO BEDTIME [facility] Last Admin: 09/06/21 21:11 Dose: 5 mg Furosemide (Furosemide 40 Mg Tablet) 40 mg PO DAILY [facility]; Protocol Last Admin: 09/07/21 08:43 Dose: 40 mg Lisinopril (Lisinopril 10 Mg Tablet) 10 mg PO BID [facility]; Protocol Last Admin: 09/07/21 08:43 Dose: 10 mg Lorazepam (Lorazepam 0.5 Mg Tablet) 0.25 mg PO Q6H PRN PRN Reason: Anxiety Magnesium Hydroxide (Milk Of Magnesia 30 Ml Oral.Susp) 30 ml PO DAILY PRN PRN Reason: Constipation Magnesium Oxide (Magnesium Oxide 400 Mg Tablet) 400 mg PO DAILY [facility] Last Admin: 09/07/21 08:43 Dose: 400 mg Multivitamins/Vitamin C (Multivitamin Tablet) 1 tab PO DAILY [facility] Last Admin: 09/07/21 08:44 Dose: 1 tab Olanzapine (Olanzapine 2.5 Mg Tablet) 3.75 mg PO BEDTIME [facility] Last Admin: 09/06/21 21:11 Dose: 3.75 mg Omeprazole (Omeprazole 20 Mg Capsule.Dr) 20 mg PO DAILY [facility] Last Admin: 09/07/21 08:43 Dose: 20 mg Potassium Chloride (Potassium Chloride Er 10 Meq Capsule.Er) 10 meq PO DAILY [facility] Last Admin: 09/07/21 08:43 Dose: 10 meq Vitamin D (Cholecalciferol (Vitamin D3) 25 Mcg Tablet) 25 mcg PO DAILY [facility] Last Admin: 09/07/21 08:43 Dose: 25 mcg Allergies Allergies Allergy/AdvReac Type Severity Reaction Status Date / Time haloperidol [From Haldol] AdvReac Numbness Verified 08/31/21 01:44 Assessment & Plan Assessment & Plan (1) Schizoaffective disorder, bipolar type: Status: Acute Code(s): F25.0 - Schizoaffective disorder, bipolar type Plan Assessment and plan for 08/30/2021 Patient had possible urgent reaction to Haldol now discontinued. Ney p.r.n. ordered for EPS. [place] a [place]an 2.5 mg started at bedtime. Patient had increased bingeing on olanzapine consider more weight neutral medication Assessment and plan for 08/31/2021 Patient tolerated olanzapine 2.5 mg at bedtime. On further discussion with patient had developed significant binge eating while on Zyprexa previously. There is a new combined version of olanzapine which reportedly significantly controls weight gain with olanzapine other option would be to trial a 1st generation antipsychotics such as perphenazine which has a better EPS profile than Haldol or consider agent such as she done referral are with a better weight gain profile plan 1. Increase Zyprexa up to 3.75 mg. 2.Ativan 0.25 p.o. q.6 p.r.n. anxiety 3. MOCA test scored , we will redo the test next week. 09/06: pt restarted on home meds of multivitamin, vit d, aspirin per her request 09/07: no med changes, pt remains suspicious and withdrawn, declines med changes I spent minutes with the patient and/or on the patient floor today, greater than?50% of which was spent counseling/coordinating care. Patient educated on: medication risk/benefits Reason for contiued inpatient stay Substantial Risk for: inability to function, rapid decompensation and med/psych decompensation
[2021-09-07 20:53] VITALS: BP 145/75; PULSE 69; RESP 18; TEMP 36.4; O2SAT 98
[2021-09-07] MEDS: Donepezil HCl 5 MG TABLET PO (20:53)
[2021-09-07] MEDS: OLANZapine 2.5 MG TABLET 3.75 MG PO (20:54)
[2021-09-08 06:00] VITALS: BP 144/68; PULSE 81; RESP 16; TEMP 36.1; O2SAT 96
[2021-09-08] MEDS: Cholecalciferol (Vitamin D3) 25 MCG TABLET PO (08:39)
[2021-09-08] MEDS: Aspirin 81 MG TAB.CHEW PO (08:39)
[2021-09-08] MEDS: Multivitamin TABLET 1 TAB PO (08:39)
[2021-09-08] MEDS: Magnesium Oxide 400 MG TABLET PO (08:39)
[2021-09-08] MEDS: lisinopriL 10 MG TABLET PO ×2 (08:39→20:38)
[2021-09-08] MEDS: amLODIPine Besylate 5 MG TABLET PO (08:39)
[2021-09-08] MEDS: Omeprazole 20 MG CAPSULE.DR PO (08:39)
[2021-09-08] MEDS: Furosemide 40 MG TABLET PO (08:40)
[2021-09-08] MEDS: carvediloL 6.25 MG TABLET PO ×2 (08:40→20:38)
[2021-09-08] MEDS: Clopidogrel Bisulfate 75 MG TABLET PO (08:40)
[2021-09-08 18:00] VITALS: BP 157/84; PULSE 77; RESP 17; TEMP 36.5; O2SAT 97
--- NOTE | 2021-09-08 19:40 | P.PNPSI_ITS ---
Subjective Subjective Date of Service: 09/08/21 Reason For Visit: Psychosis Interim History: Patient seen and discussed with team. She went outside for a fresh air break. Patient evaluated today and upon interview she reports her energy is better, sleep is good. Denies having questions or concerns. Says I dont want to take the aspirin, as she has noticed bruising. Mood is pretty good, says she is alright. Feels safe.? Medication Compliance: Yes Side effects from medications: No Attending Groups: No Review of Systems Acute medical concerns: No Medical Review of Systems: unchanged Mental Status Exam Mental Status Exam Narrative: Patient Appearance: Appropriate Patient Orientation: Person and Situation Level of Consciousness: Awake Patient Behavior: Cooperative Mood Description: Constricted Affect Description: Labile Patient Cognition Impaired: Yes Ability to Follow Directions: Good Speech Pattern: Clear Hallucinations: None Delusions: Paranoid Ideation Thought Process: Linear Thought Content: positive for Circumstantial Judgement: Fair Diagnostics Vital Signs (24Hr): Vital Signs - 24 hr 09/08/21 18:00 Temperature 97.7 F Pulse Rate 77 Respiratory Rate 17 Blood Pressure 157/84 H Pulse Oximetry 97 Oxygen Delivery Method Room Air BMI result Body Mass Index 24.3 Labs Results: 08/25/21 21:31 08/27/21 07:58 Medications Medications Current Medications Acetaminophen (Acetaminophen 325 Mg Tablet) 650 mg PO Q6H PRN PRN Reason: Headache/Pain Mild Scale (1-3) Al Hydroxide/Mg Hydroxide (Magnesium Hydrox/Alum Hydrox 30 Ml Oral.Susp) 30 ml PO Q6H PRN PRN Reason: Heartburn/Nausea Amlodipine Besylate (Amlodipine Besylate 5 Mg Tablet) 5 mg PO DAILY [facility]; Protocol Last Admin: 09/08/21 08:39 Dose: 5 mg Benztropine Mesylate (Benztropine Mesylate 0.5 Mg Tablet) 0.5 mg PO BID PRN PRN Reason: Extrapyramidal Effects Last Admin: 08/29/21 22:11 Dose: 0.5 mg Carvedilol (Carvedilol 6.25 Mg Tablet) 6.25 mg PO BID [facility]; Protocol Last Admin: 09/08/21 20:38 Dose: 6.25 mg Clopidogrel Bisulfate (Clopidogrel Bisulfate 75 Mg Tablet) 75 mg PO DAILY [facility] Last Admin: 09/08/21 08:40 Dose: 75 mg Donepezil HCl (Donepezil Hcl 5 Mg Tablet) 5 mg PO BEDTIME [facility] Last Admin: 09/08/21 20:38 Dose: 5 mg Furosemide (Furosemide 40 Mg Tablet) 40 mg PO DAILY [facility]; Protocol Last Admin: 09/08/21 08:40 Dose: 40 mg Lisinopril (Lisinopril 10 Mg Tablet) 10 mg PO BID [facility]; Protocol Last Admin: 09/08/21 20:38 Dose: 10 mg Magnesium Hydroxide (Milk Of Magnesia 30 Ml Oral.Susp) 30 ml PO DAILY PRN PRN Reason: Constipation Magnesium Oxide (Magnesium Oxide 400 Mg Tablet) 400 mg PO DAILY [facility] Last Admin: 09/08/21 08:39 Dose: 400 mg Multivitamins/Vitamin C (Multivitamin Tablet) 1 tab PO DAILY [facility] Last Admin: 09/08/21 08:39 Dose: 1 tab Olanzapine (Olanzapine 2.5 Mg Tablet) 3.75 mg PO BEDTIME [facility] Last Admin: 09/08/21 20:39 Dose: 3.75 mg Omeprazole (Omeprazole 20 Mg Capsule.Dr) 20 mg PO DAILY [facility] Last Admin: 09/08/21 08:39 Dose: 20 mg Potassium Chloride (Potassium Chloride Er 10 Meq Capsule.Er) 10 meq PO DAILY [facility] Last Admin: 09/08/21 08:39 Dose: 10 meq Vitamin D (Cholecalciferol (Vitamin D3) 25 Mcg Tablet) 25 mcg PO DAILY [facility] Last Admin: 09/08/21 08:39 Dose: 25 mcg Allergies Allergies Allergy/AdvReac Type Severity Reaction Status Date / Time haloperidol [From Haldol] AdvReac Numbness Verified 08/31/21 01:44 Assessment & Plan Assessment & Plan (1) Schizoaffective disorder, bipolar type: Status: Acute Code(s): F25.0 - Schizoaffective disorder, bipolar type Plan Assessment and plan for 08/30/2021 Patient had possible urgent reaction to Haldol now discontinued. Ney p.r.n. ordered for EPS. [place] a [place]an 2.5 mg started at bedtime. Patient had increased bingeing on olanzapine consider more weight neutral medication Assessment and plan for 08/31/2021 Patient tolerated olanzapine 2.5 mg at bedtime. On further discussion with patient had developed significant binge eating while on Zyprexa previously. There is a new combined version of olanzapine which reportedly significantly controls weight gain with olanzapine other option would be to trial a 1st generation antipsychotics such as perphenazine which has a better EPS profile than Haldol or consider agent such as she done referral are with a better weight gain profile plan 1. Increase Zyprexa up to 3.75 mg. 2.Ativan 0.25 p.o. q.6 p.r.n. anxiety 3. MOCA test scored 14/30 , we will redo the test next week. 09/06: pt restarted on home meds of multivitamin, vit d, aspirin per her request 09/07: no med changes, pt remains suspicious and withdrawn, declines med changes 09/08: No changes, discontinue aspirin per pt request I spent minutes with the patient and/or on the patient floor today, greater than?50% of which was spent counseling/coordinating care. Patient educated on: medication risk/benefits Reason for contiued inpatient stay Substantial Risk for: inability to function, rapid decompensation and med/psych decompensation
[2021-09-08] MEDS: Donepezil HCl 5 MG TABLET PO (20:38)
[2021-09-08] MEDS: OLANZapine 2.5 MG TABLET 3.75 MG PO (20:39)
[2021-09-09 06:00] VITALS: BP 141/75
[2021-09-09] MEDS: Omeprazole 20 MG CAPSULE.DR PO (10:15)
[2021-09-09] MEDS: Clopidogrel Bisulfate 75 MG TABLET PO (10:15)
[2021-09-09] MEDS: Magnesium Oxide 400 MG TABLET PO (10:16)
[2021-09-09] MEDS: carvediloL 6.25 MG TABLET PO ×2 (10:16→21:06)
[2021-09-09] MEDS: lisinopriL 10 MG TABLET PO ×2 (10:16→21:06)
[2021-09-09] MEDS: Furosemide 40 MG TABLET PO (10:16)
[2021-09-09] MEDS: Multivitamin TABLET 1 TAB PO (10:16)
[2021-09-09] MEDS: Cholecalciferol (Vitamin D3) 25 MCG TABLET PO (10:16)
[2021-09-09] MEDS: amLODIPine Besylate 5 MG TABLET PO (10:16)
--- NOTE | 2021-09-09 15:32 | P.PNPSI_ITS ---
Subjective Subjective Date of Service: 09/09/21 Reason For Visit: Psychosis Subjective Notes: Conditional Voluntary Interim History: The nursing staff reported the patient remains paranoid and suspicions, stating in her room most of the time but yesterday she went out. On interview the patient denies new symptoms she remains internally preoccupied. The social media campaign manager reported that will have a family meeting tomorrow at 10:00 o'clock with her children and find out what will be the best plan of action for her. Medication Compliance: Yes Side effects from medications: No Attending Groups: Intermittent Review of Systems Acute medical concerns: No Medical Review of Systems: unchanged Mental Status Exam Mental Status Exam Patient Appearance: Well Grooomed Patient Orientation: Person and Situation Level of Consciousness: Awake Patient Behavior: Guarded and Cooperative Mood Description: Constricted Affect Description: Constricted Patient Cognition Impaired: Yes Ability to Follow Directions: Good Speech Pattern: Clear Hallucinations: None Delusions: Paranoid Ideation Thought Process: Distracted Thought Content: positive for [place] and positive for Poverty of Content Judgement: Fair Diagnostics Vital Signs (24Hr): Vital Signs - 24 hr 09/08/21 18:00 09/09/21 06:00 Temperature 97.7 F Pulse Rate 77 Respiratory Rate 17 Blood Pressure 157/84 H 141/75 H Pulse Oximetry 97 Oxygen Delivery Method Room Air BMI result Body Mass Index 24.3 Labs Results: 08/25/21 21:31 08/27/21 07:58 Medications Medications Current Medications Acetaminophen (Acetaminophen 325 Mg Tablet) 650 mg PO Q6H PRN PRN Reason: Headache/Pain Mild Scale (1-3) Al Hydroxide/Mg Hydroxide (Magnesium Hydrox/Alum Hydrox 30 Ml Oral.Susp) 30 ml PO Q6H PRN PRN Reason: Heartburn/Nausea Amlodipine Besylate (Amlodipine Besylate 5 Mg Tablet) 5 mg PO DAILY [facility]; Pr otocol Last Admin: 09/09/21 10:16 Dose: 5 mg Benztropine Mesylate (Benztropine Mesylate 0.5 Mg Tablet) 0.5 mg PO BID PRN PRN Reason: Extrapyramidal Effects Last Admin: 08/29/21 22:11 Dose: 0.5 mg Carvedilol (Carvedilol 6.25 Mg Tablet) 6.25 mg PO BID [facility]; Protocol Last Admin: 09/09/21 10:16 Dose: 6.25 mg Clopidogrel Bisulfate (Clopidogrel Bisulfate 75 Mg Tablet) 75 mg PO DAILY [facility] Last Admin: 09/09/21 10:15 Dose: 75 mg Donepezil HCl (Donepezil Hcl 5 Mg Tablet) 5 mg PO BEDTIME [facility] Last Admin: 09/08/21 20:38 Dose: 5 mg Furosemide (Furosemide 40 Mg Tablet) 40 mg PO DAILY [facility]; Protocol Last Admin: 09/09/21 10:16 Dose: 40 mg Lisinopril (Lisinopril 10 Mg Tablet) 10 mg PO BID [facility]; Protocol Last Admin: 09/09/21 10:16 Dose: 10 mg Magnesium Hydroxide (Milk Of Magnesia 30 Ml Oral.Susp) 30 ml PO DAILY PRN PRN Reason: Constipation Magnesium Oxide (Magnesium Oxide 400 Mg Tablet) 400 mg PO DAILY [facility] Last Admin: 09/09/21 10:16 Dose: 400 mg Multivitamins/Vitamin C (Multivitamin Tablet) 1 tab PO DAILY [facility] Last Admin: 09/09/21 10:16 Dose: 1 tab Olanzapine (Olanzapine 2.5 Mg Tablet) 3.75 mg PO BEDTIME [facility] Last Admin: 09/08/21 20:39 Dose: 3.75 mg Omeprazole (Omeprazole 20 Mg Capsule.Dr) 20 mg PO DAILY [facility] Last Admin: 09/09/21 10:15 Dose: 20 mg Potassium Chloride (Potassium Chloride Er 10 Meq Capsule.Er) 10 meq PO DAILY [facility] Last Admin: 09/09/21 10:15 Dose: 10 meq Vitamin D (Cholecalciferol (Vitamin D3) 25 Mcg Tablet) 25 mcg PO DAILY [facility] Last Admin: 09/09/21 10:16 Dose: 25 mcg Allergies Allergies Allergy/AdvReac Type Severity Reaction Status Date / Time haloperidol [From Haldol] AdvReac Numbness Verified 08/31/21 01:44 Assessment & Plan Assessment & Plan (1) Schizoaffective disorder, bipolar type: Status: Acute Code(s): F25.0 - Schizoaffective disorder, bipolar type Plan Assessment and plan for 08/30/2021 Patient had possible urgent reaction to Haldol now discontinued. Ney p.r.n. ordered for EPS. [place] 2.5 mg started at bedtime. Patient had increased bingeing on olanzapine consider more weight neutral medication Assessment and plan for 08/31/2021 Patient tolerated olanzapine 2.5 mg at bedtime. On further discussion with patient had developed significant binge eating while on Zyprexa previously. There is a new combined version of olanzapine which reportedly significantly controls weight gain with olanzapine other option would be to trial a 1st generation antipsychotics such as perphenazine which has a better EPS profile than Haldol or consider agent such as she done referral are with a better weight gain profile plan 1. Increase Zyprexa up to 5 mg. 2.Ativan 0.25 p.o. q.6 p.r.n. anxiety 3. MOCA test scored 14/30 , we will redo the test next week. I spent __20____ minutes with the patient and/or on the patient floor today, greater than?50% of which was spent counseling/coordinating care. Reason for contiued inpatient stay Substantial Risk for: inability to function, rapid decompensation and med/psych decompensation
[2021-09-09 18:00] VITALS: BP 138/81; PULSE 73; RESP 18; TEMP 36.7; O2SAT 97
[2021-09-09] MEDS: Donepezil HCl 5 MG TABLET PO (21:06)
[2021-09-09] MEDS: OLANZapine 5 MG TABLET PO (21:07)
[2021-09-10 07:30] VITALS: BP 160/78; PULSE 85; RESP 17; TEMP 36.1; O2SAT 95
[2021-09-10] MEDS: Clopidogrel Bisulfate 75 MG TABLET PO (08:42)
[2021-09-10] MEDS: Multivitamin TABLET 1 TAB PO (08:42)
[2021-09-10] MEDS: Magnesium Oxide 400 MG TABLET PO (08:42)
[2021-09-10] MEDS: Furosemide 40 MG TABLET PO (08:42)
[2021-09-10] MEDS: Omeprazole 20 MG CAPSULE.DR PO (08:42)
[2021-09-10] MEDS: carvediloL 6.25 MG TABLET PO ×2 (08:43→20:01)
[2021-09-10] MEDS: lisinopriL 10 MG TABLET PO ×2 (08:43→20:00)
[2021-09-10] MEDS: amLODIPine Besylate 5 MG TABLET PO (08:43)
[2021-09-10] MEDS: Cholecalciferol (Vitamin D3) 25 MCG TABLET PO (08:43)
--- NOTE | 2021-09-10 15:12 | PC.NURSE ---
Pt participated in MERCEDES ([place] Evaluation of Living Skills) on this date. Pt scored as Independent in areas of Self Care. Pt's appearence is neat and is appropriate for frequency of self care activities. Pt also demonstrated appropriate safety awareness in home setting scenarios and has adequate knowledge of what to do in case of emergencies and how to contact her doctor. Pt has adequate money management skills as she can pay her rent independently, is able to handle simple money transactions, is able to write checks for her rent and utilities are taken care of by her housing association. Pt no longer drives (last drove 2 years ago), but gets around in the community through a [employer] van and has rides through family. Pt is currently retired and receives social security income. Pt is able to list appropriate leisure activities but has decreased participation due to current mood and presentation. Pt appears to be able to be safe and meet basic independent living skills with regular check ins made by family or injection molding technician and recommended in person visits through [facility] for medication management to ensure pt is tacking meds appropriately.
--- NOTE | 2021-09-10 16:25 | HO.PSYCHPN ---
Subjective Subjective Date of Service: 09/10/21 Reason For Visit: Psychosis Subjective Notes: Conditional Voluntary Interim History: the nursing staff reported the patient has been on her room most of the time, isolative, internally preoccupied but she denies auditory hallucinations. On interview the patient denies new symptoms. Today we had a family meeting and we explained the limitations regarding mental hygiene low and in forcing of a years order. No new symptoms Mental Status Exam Mental Status Exam Patient Appearance: Well Grooomed Patient Orientation: Person and Situation Level of Consciousness: Awake Patient Behavior: Guarded Mood Description: Withdrawn Affect Description: Constricted Patient Cognition Impaired: Yes Ability to Follow Directions: Fair Speech Pattern: Clear Hallucinations: None Delusions: Paranoid Ideation Thought Process: Distracted Thought Content: positive for [place] and positive for Poverty of Content Judgement: Fair Diagnostics Vital Signs (24Hr): Vital Signs - 24 hr 09/09/21 18:00 09/10/21 07:30 Temperature 98.1 F 97 F Pulse Rate 73 85 Respiratory Rate 18 17 Blood Pressure 138/81 160/78 H Pulse Oximetry 97 95 Oxygen Delivery Method Room Air Room Air BMI result Body Mass Index 24.3 Labs Results: 08/25/21 21:31 08/27/21 07:58 Medications Medications Current Medications Acetaminophen (Acetaminophen 325 Mg Tablet) 650 mg PO Q6H PRN PRN Reason: Headache/Pain Mild Scale (1-3) Al Hydroxide/Mg Hydroxide (Magnesium Hydrox/Alum Hydrox 30 Ml Oral.Susp) 30 ml PO Q6H PRN PRN Reason: Heartburn/Nausea Amlodipine Besylate (Amlodipine Besylate 5 Mg Tablet) 5 mg PO DAILY [facility]; Protocol Last Admin: 09/10/21 08:43 Dose: 5 mg Benztropine Mesylate (Benztropine Mesylate 0.5 Mg Tablet) 0.5 mg PO BID PRN PRN Reason: Extrapyramidal Effects Last Admin: 08/29/21 22:11 Dose: 0.5 mg Carvedilol (Carvedilol 6.25 Mg Tablet) 6.25 mg PO BID [facility]; Protocol Last Admin: 09/10/21 08:43 Dose: 6.25 mg Clopidogrel Bisulfate (Clopidogrel Bisulfate 75 Mg Tablet) 75 mg PO DAILY [facility] Last Admin: 09/10/21 08:42 Dose: 75 mg Donepezil HCl (Donepezil Hcl 5 Mg Tablet) 5 mg PO BEDTIME [facility] Last Admin: 09/09/21 21:06 Dose: 5 mg Furosemide (Furosemide 40 Mg Tablet) 40 mg PO DAILY [facility]; Protocol Last Admin: 09/10/21 08:42 Dose: 40 mg Lisinopril (Lisinopril 10 Mg Tablet) 10 mg PO BID [facility]; Protocol Last Admin: 09/10/21 08:43 Dose: 10 mg Magnesium Hydroxide (Milk Of Magnesia 30 Ml Oral.Susp) 30 ml PO DAILY PRN PRN Reason: Constipation Magnesium Oxide (Magnesium Oxide 400 Mg Tablet) 400 mg PO DAILY [facility] Last Admin: 09/10/21 08:42 Dose: 400 mg Multivitamins/Vitamin C (Multivitamin Tablet) 1 tab PO DAILY [facility] Last Admin: 09/10/21 08:42 Dose: 1 tab Olanzapine (Olanzapine 5 Mg Tablet) 5 mg PO BEDTIME [facility] Last Admin: 09/09/21 21:07 Dose: 5 mg Omeprazole (Omeprazole 20 Mg Capsule.Dr) 20 mg PO DAILY [facility] Last Admin: 09/10/21 08:42 Dose: 20 mg Potassium Chloride (Potassium Chloride Er 10 Meq Capsule.Er) 10 meq PO DAILY [facility] Last Admin: 09/10/21 08:42 Dose: 10 meq Vitamin D (Cholecalciferol (Vitamin D3) 25 Mcg Tablet) 25 mcg PO DAILY [facility] Last Admin: 09/10/21 08:43 Dose: 25 mcg Allergies Allergies Allergy/AdvReac Type Severity Reaction Status Date / Time haloperidol [From Haldol] AdvReac Numbness Verified 08/31/21 01:44 Assessment & Plan Assessment & Plan (1) Schizoaffective disorder, bipolar type: Status: Acute Code(s): F25.0 - Schizoaffective disorder, bipolar type Plan Assessment and plan for 08/30/2021 Patient had possible urgent reaction to Haldol now discontinued. Ney p.r.n. ordered for EPS. [place] a [place] 2.5 mg started at bedtime. Patient had increased bingeing on olanzapine consider more weight neutral medication Assessment and plan for 08/31/2021 Patient tolerated olanzapine 2.5 mg at bedtime. On further discussion with patient had developed significant binge eating while on Zyprexa previously. There is a new combined version of olanzapine which reportedly significantly controls weight gain with olanzapine other option would be to trial a 1st generation antipsychotics such as perphenazine which has a better EPS profile than Haldol or consider agent such as she done referral are with a better weight gain profile plan 1. Increase Zyprexa up to 3.75 mg. 2.Ativan 0.25 p.o. q.6 p.r.n. anxiety 3. MOCA test scored 14/30 , we will redo the test this week. I spent __20____ minutes with the patient and/or on the patient floor today, greater than?50% of which was spent counseling/coordinating care. Reason for contiued inpatient stay Substantial Risk for: inability to function, rapid decompensation and med/psych decompensation
[2021-09-10 19:45] VITALS: BP 147/72; PULSE 81; TEMP 36.2; O2SAT 97
[2021-09-10] MEDS: Donepezil HCl 5 MG TABLET PO (20:00)
[2021-09-10] MEDS: OLANZapine 5 MG TABLET PO (20:00)
[2021-09-11 06:00] VITALS: BP 153/86; PULSE 70; RESP 16; TEMP 36.1; O2SAT 96
[2021-09-11 07:00] VITALS: BMI 24.3
[2021-09-11] MEDS: amLODIPine Besylate 5 MG TABLET PO (08:02)
[2021-09-11] MEDS: Furosemide 40 MG TABLET PO (08:02)
[2021-09-11] MEDS: lisinopriL 10 MG TABLET PO ×2 (08:02→21:11)
[2021-09-11] MEDS: Omeprazole 20 MG CAPSULE.DR PO (08:02)
[2021-09-11] MEDS: carvediloL 6.25 MG TABLET PO ×2 (08:02→21:11)
[2021-09-11] MEDS: Magnesium Oxide 400 MG TABLET PO (08:02)
[2021-09-11] MEDS: Clopidogrel Bisulfate 75 MG TABLET PO (08:03)
[2021-09-11] MEDS: Cholecalciferol (Vitamin D3) 25 MCG TABLET PO (08:05)
[2021-09-11] MEDS: Multivitamin TABLET 1 TAB PO (08:06)
--- NOTE | 2021-09-11 09:27 | PC.NURSE ---
[facility] cognitive assessment administered this date. Environment modified to to decrease auditory and visual distraction for most objective outcome. Pts score 23/30 is indicative of mild neurocognitive impairment. Pts attending nurse, MD, hospital social worker, and OTR notified of pt result. Pt requires frequent reassurance and extra time for processing secondary to high level of anxiety.
--- NOTE | 2021-09-11 16:38 | HO.PSYCHPN ---
Subjective Subjective Date of Service: 09/11/21 Reason For Visit: Psychosis Subjective Notes: Conditional Voluntary Interim History: The nursing staff reported the patient still paranoid, she stated that impair staring at her. We have a family meeting yesterday and explained the limitations of right years order another treatment options. We review the [place] test and she scored 23/30. Mental Status Exam Mental Status Exam Patient Appearance: Well Grooomed Patient Orientation: Person and Situation Level of Consciousness: Awake Patient Behavior: Cooperative Mood Description: Withdrawn Affect Description: Constricted Patient Cognition Impaired: Yes Ability to Follow Directions: Fair Speech Pattern: Clear Hallucinations: None Delusions: Paranoid Ideation Thought Process: Distracted and Evasive Thought Content: positive for [place] and positive for Circumstantial Judgement: Fair Diagnostics Vital Signs (24Hr): Vital Signs - 24 hr 09/10/21 19:45 09/11/21 06:00 Temperature 97.2 F 97 F Pulse Rate 81 70 Respiratory Rate 16 Blood Pressure 147/72 H 153/86 H Pulse Oximetry 97 96 Oxygen Delivery Method Room Air BMI result Body Mass Index 24.3 Labs Results: 08/25/21 21:31 08/27/21 07:58 Medications Medications Current Medications Acetaminophen (Acetaminophen 325 Mg Tablet) 650 mg PO Q6H PRN PRN Reason: Headache/Pain Mild Scale (1-3) Al Hydroxide/Mg Hydroxide (Magnesium Hydrox/Alum Hydrox 30 Ml Oral.Susp) 30 ml PO Q6H PRN PRN Reason: Heartburn/Nausea Amlodipine Besylate (Amlodipine Besylate 5 Mg Tablet) 5 mg PO DAILY [facility]; Protocol Last Admin: 09/11/21 08:02 Dose: 5 mg Benztropine Mesylate (Benztropine Mesylate 0.5 Mg Tablet) 0.5 mg PO BID PRN PRN Reason: Extrapyramidal Effects Last Admin: 08/29/21 22:11 Dose: 0.5 mg Carvedilol (Carvedilol 6.25 Mg Tablet) 6.25 mg PO BID [facility]; Protocol Last Admin: 09/11/21 08:02 Dose: 6.25 mg Clopidogrel Bisulfate (Clopidogrel Bisulfate 75 Mg Tablet) 75 mg PO DAILY [facility] Last Admin: 09/11/21 08:03 Dose: 75 mg Donepezil HCl (Donepezil Hcl 5 Mg Tablet) 5 mg PO BEDTIME [facility] Last Admin: 09/10/21 20:00 Dose: 5 mg Furosemide (Furosemide 40 Mg Tablet) 40 mg PO DAILY [facility]; Protocol Last Admin: 09/11/21 08:02 Dose: 40 mg Lisinopril (Lisinopril 10 Mg Tablet) 10 mg PO BID [facility]; Protocol Last Admin: 09/11/21 08:02 Dose: 10 mg Magnesium Hydroxide (Milk Of Magnesia 30 Ml Oral.Susp) 30 ml PO DAILY PRN PRN Reason: Constipation Magnesium Oxide (Magnesium Oxide 400 Mg Tablet) 400 mg PO DAILY [facility] Last Admin: 09/11/21 08:02 Dose: 400 mg Multivitamins/Vitamin C (Multivitamin Tablet) 1 tab PO DAILY [facility] Last Admin: 09/11/21 08:06 Dose: 1 tab Olanzapine (Olanzapine 5 Mg Tablet) 5 mg PO BEDTIME [facility] Last Admin: 09/10/21 20:00 Dose: 5 mg Omeprazole (Omeprazole 20 Mg Capsule.Dr) 20 mg PO DAILY [facility] Last Admin: 09/11/21 08:02 Dose: 20 mg Potassium Chloride (Potassium Chloride Er 10 Meq Capsule.Er) 10 meq PO DAILY [facility] Last Admin: 09/11/21 08:02 Dose: 10 meq Vitamin D (Cholecalciferol (Vitamin D3) 25 Mcg Tablet) 25 mcg PO DAILY [facility] Last Admin: 09/11/21 08:05 Dose: 25 mcg Allergies Allergies Allergy/AdvReac Type Severity Reaction Status Date / Time haloperidol [From Haldol] AdvReac Numbness Verified 08/31/21 01:44 Assessment & Plan Assessment & Plan (1) Schizoaffective disorder, bipolar type: Status: Acute Code(s): F25.0 - Schizoaffective disorder, bipolar type Plan Assessment and plan for 08/30/2021 Patient had possible urgent reaction to Haldol now discontinued. Ney p.r.n. ordered for EPS. [place] a [place] 2.5 mg started at bedtime. Patient had increased bingeing on olanzapine consider more weight neutral medication Assessment and plan for 08/31/2021 Patient tolerated olanzapine 2.5 mg at bedtime. On further discussion with patient had developed significant binge eating while on Zyprexa previously. There is a new combined version of olanzapine which reportedly significantly controls weight gain with olanzapine other option would be to trial a 1st generation antipsychotics such as perphenazine which has a better EPS profile than Haldol or consider agent such as she done referral are with a better weight gain profile plan 1. Increase Zyprexa up to 3.75 mg. 2.Ativan 0.25 p.o. q.6 p.r.n. anxiety 3. MOCA test scored 14/30 last week, today she scored 23/30, I spent ___20___ minutes with the patient and/or on the patient floor today, greater than?50% of which was spent counseling/coordinating care. Reason for contiued inpatient stay Substantial Risk for: inability to function, rapid decompensation and med/psych decompensation
[2021-09-11 18:00] VITALS: BP 153/72; PULSE 70; TEMP 36.8; O2SAT 97
[2021-09-11] MEDS: OLANZapine 5 MG TABLET PO (21:11)
[2021-09-11] MEDS: Donepezil HCl 5 MG TABLET PO (21:11)
[2021-09-12 06:00] VITALS: BP 166/79; PULSE 77; RESP 16; TEMP 36.4; O2SAT 96
[2021-09-12 08:00] LABS: MANUAL DIFF FLAG NO
[2021-09-12 08:02] LABS: Basophils Percent Auto 0.4 % (0-2); Eosinophils Absolute Auto 0.1 X10*3/uL (0.0-0.4); Eosinophils Percent Auto 1.6 % (0-4); Hematocrit 39.9 % (37.0-47.0); Hemoglobin 13.5 g/dl (12.0-16.0); Imm Gran Abs Auto 0.03 X10*3/uL (0.00-0.03); Imm Gran Pct Auto 0.4 % (0.0-0.4); Lymphocytes Absolute Auto 1.8 X10*3/uL (1.2-4.9); Lymphocytes Percent Auto 26.5 % (20-40); Mean Corpuscular HGB Conc 33.8 g/dl (31.0-35.0); Mean Corpuscular Hemoglobin 30.3 pg (27.0-33.0); Mean Corpuscular Volume 89.7 fL (80.0-98.0); Mean Platelet Volume 9.3 fL (9.4-12.3); Monocytes Absolute Auto 0.7 X10*3/uL (0.1-1.2); Monocytes Percent Auto 9.6 % (2-11); Neutrophils Absolute Auto 4.2 x10*3/uL (2.0-8.3); Neutrophils Percent Auto 61.5 % (45-73); Platelet Count 277 X10*3/uL (160-400); Red Blood Count 4.45 X10*6/uL (4.20-5.50); Red Cell Distribution Width 12.7 % (11.0-16.0); White Blood Count 6.8 X10*3/uL (4.8-10.8)
[2021-09-12 08:18] LABS: Alanine Aminotransferase 16 U/L (0-31); Albumin Level 4.1 g/dL (3.5-5.0); Alkaline Phosphatase 86 U/L (39-117); Anion Gap 14 (12-20); Aspartate Amino Transferase 17 U/L (5-31); Bilirubin Direct < 0.2 mg/dL (0.0-0.5); Bilirubin Total 0.2 mg/dL (0.0-1.0); Blood Urea Nitrogen 19 mg/dL (9-16); Calcium 9.5 mg/dL (8.4-10.2); Carbon Dioxide 27 mmol/L (22-29); Chloride 101 mmol/L (96-108); Cholesterol 306 mg/dL; Creatinine Clr Calc Pharmacy 60.9; Estimated Glomerular Filt Rate > 60; Glucose Random 102 mg/dL (60-115); HDL Cholesterol 59 mg/dL; LDL Cholesterol Calculated 202 mg/dl; Sodium 138 mmol/L (135-145); Total Protein 6.8 g/dL (6.5-8.0); Triglycerides 228 mg/dL
[2021-09-12] MEDS: Furosemide 40 MG TABLET PO (08:23)
[2021-09-12] MEDS: amLODIPine Besylate 5 MG TABLET PO (08:23)
[2021-09-12] MEDS: carvediloL 6.25 MG TABLET PO ×2 (08:23→20:55)
[2021-09-12] MEDS: Multivitamin TABLET 1 TAB PO (08:24)
[2021-09-12] MEDS: lisinopriL 10 MG TABLET PO ×2 (08:24→20:55)
[2021-09-12] MEDS: Clopidogrel Bisulfate 75 MG TABLET PO (08:24)
[2021-09-12] MEDS: Magnesium Oxide 400 MG TABLET PO (08:24)
[2021-09-12] MEDS: Cholecalciferol (Vitamin D3) 25 MCG TABLET PO (08:25)
[2021-09-12 08:41] LABS: Estimated Average Glucose 120 mg/dL; Hemoglobin A1c % 5.8 %
[2021-09-12] MEDS: Omeprazole 20 MG CAPSULE.DR PO (13:32)
[2021-09-12 20:45] VITALS: BP 121/60; PULSE 73; RESP 17; TEMP 36.2; O2SAT 96
[2021-09-12] MEDS: Donepezil HCl 5 MG TABLET PO (20:55)
[2021-09-12] MEDS: OLANZapine 5 MG TABLET PO (20:55)
[2021-09-13 06:00] VITALS: BP 125/72; PULSE 65; RESP 16; TEMP 36.2; O2SAT 95
[2021-09-13] MEDS: amLODIPine Besylate 5 MG TABLET PO (08:45)
[2021-09-13] MEDS: Multivitamin TABLET 1 TAB PO (08:45)
[2021-09-13] MEDS: carvediloL 6.25 MG TABLET PO ×2 (08:45→21:02)
[2021-09-13] MEDS: lisinopriL 10 MG TABLET PO ×2 (08:45→21:02)
[2021-09-13] MEDS: Furosemide 40 MG TABLET PO (08:45)
[2021-09-13] MEDS: Omeprazole 20 MG CAPSULE.DR PO (08:45)
[2021-09-13] MEDS: Clopidogrel Bisulfate 75 MG TABLET PO (08:45)
[2021-09-13] MEDS: Cholecalciferol (Vitamin D3) 25 MCG TABLET PO (08:45)
[2021-09-13] MEDS: Magnesium Oxide 400 MG TABLET PO (08:45)
--- NOTE | 2021-09-13 11:25 | HO.PSYCHPN ---
Subjective Subjective Date of Service: 09/13/21 Reason For Visit: Psychosis Interim History: found resting in bed. rousable to voice. 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 no requests or complaints. per staff, paranoid, flat. anx 5, dep 0. Mental Status Exam Mental Status Exam Narrative: adequately dressed and groomed. cooperative. speech decr in amount, prosody. thoughts linear, paranoid. affect constricted. mood not assessed. no SI/HI/AVH expressed. Diagnostics Vital Signs (24Hr): Vital Signs - 24 hr 09/12/21 20:45 09/13/21 06:00 Temperature 97.2 F 97.1 F Pulse Rate 73 65 Respiratory Rate 17 16 Blood Pressure 121/60 125/72 Pulse Oximetry 96 95 Oxygen Delivery Method Room Air Room Air BMI result Body Mass Index 24.3 Labs Results: 09/12/21 07:51 09/12/21 07:51 Labs: Laboratory Results - last 48 hr 09/12/21 09/12/21 09/12/21 07:51 07:51 07:51 WBC 6.8 RBC 4.45 Hgb 13.5 Hct 39.9 MCV 89.7 MCH 30.3 MCHC 33.8 RDW 12.7 Plt Count 277 MPV 9.3 L Immature Gran % (Auto) 0.4 Neut % (Auto) 61.5 Lymph % (Auto) 26.5 [place] % (Auto) 9.6 Eos % (Auto) 1.6 Baso % (Auto) 0.4 Lymph # (Auto) 1.8 [place] # (Auto) 0.7 Eos # (Auto) 0.1 Baso # (Auto) 0.0 Abs Immat Gran (auto) 0.03 Absolute Neuts (auto) 4.2 Absolute Nucleated RBC 0.000 Nucleated RBC % (auto) 0.0 Sodium 138 Potassium 4.0 Chloride 101 Carbon Dioxide 27 Anion Gap 14 BUN 19 H Creatinine 0.65 Estim Creat Clear Calc 60.9 Estimated GFR > 60 Random Glucose 102 Estimat Average Glucose 120 Hemoglobin A1c % 5.8 Calcium 9.5 D Total Bilirubin 0.2 Direct Bilirubin < 0.2 AST 17 ALT 16 Alkaline Phosphatase 86 Total Protein 6.8 Albumin 4.1 Triglycerides 228 Cholesterol 306 LDL Cholesterol, Calc 202 HDL Cholesterol 59 Medications Medications Current Medications Acetaminophen (Acetaminophen 325 Mg Tablet) 650 mg PO Q6H PRN PRN Reason: Headache/Pain Mild Scale (1-3) Al Hydroxide/Mg Hydroxide (Magnesium Hydrox/Alum Hydrox 30 Ml Oral.Susp) 30 ml PO Q6H PRN PRN Reason: Heartburn/Nausea Amlodipine Besylate (Amlodipine Besylate 5 Mg Tablet) 5 mg PO DAILY [facility]; Protocol Last Admin: 09/13/21 08:45 Dose: 5 mg Benztropine Mesylate (Benztropine Mesylate 0.5 Mg Tablet) 0.5 mg PO BID PRN PRN Reason: Extrapyramidal Effects Last Admin: 08/29/21 22:11 Dose: 0.5 mg Carvedilol (Carvedilol 6.25 Mg Tablet) 6.25 mg PO BID [facility]; Protocol Last Admin: 09/13/21 08:45 Dose: 6.25 mg Clopidogrel Bisulfate (Clopidogrel Bisulfate 75 Mg Tablet) 75 mg PO DAILY [facility] Last Admin: 09/13/21 08:45 Dose: 75 mg Donepezil HCl (Donepezil Hcl 5 Mg Tablet) 5 mg PO BEDTIME [facility] Last Admin: 09/12/21 20:55 Dose: 5 mg Furosemide (Furosemide 40 Mg Tablet) 40 mg PO DAILY [facility]; Protocol Last Admin: 09/13/21 08:45 Dose: 40 mg Lisinopril (Lisinopril 10 Mg Tablet) 10 mg PO BID [facility]; Protocol Last Admin: 09/13/21 08:45 Dose: 10 mg Magnesium Hydroxide (Milk Of Magnesia 30 Ml Oral.Susp) 30 ml PO DAILY PRN PRN Reason: Constipation Magnesium Oxide (Magnesium Oxide 400 Mg Tablet) 400 mg PO DAILY [facility] Last Admin: 09/13/21 08:45 Dose: 400 mg Multivitamins/Vitamin C (Multivitamin Tablet) 1 tab PO DAILY [facility] Last Admin: 09/13/21 08:45 Dose: 1 tab Olanzapine (Olanzapine 5 Mg Tablet) 5 mg PO BEDTIME [facility] Last Admin: 09/12/21 20:55 Dose: 5 mg Omeprazole (Omeprazole 20 Mg Capsule.Dr) 20 mg PO DAILY [facility] Last Admin: 09/13/21 08:45 Dose: 20 mg Potassium Chloride (Potassium Chloride Er 10 Meq Capsule.Er) 10 meq PO DAILY [facility] Last Admin: 09/13/21 08:45 Dose: 10 meq Vitamin D (Cholecalciferol (Vitamin D3) 25 Mcg Tablet) 25 mcg PO DAILY [facility] Last Admin: 09/13/21 08:45 Dose: 25 mcg Allergies Allergies Allergy/AdvReac Type Severity Reaction Status Date / Time haloperidol [From Haldol] AdvReac Numbness Verified 08/31/21 01:44 Assessment & Plan Assessment & Plan (1) Schizoaffective disorder, bipolar type: Status: Acute Code(s): F25.0 - Schizoaffective disorder, bipolar type Plan Assessment and plan for 08/30/2021 Patient had possible urgent reaction to Haldol now discontinued. Cogentin p.r.n. ordered for EPS. [place] a Pean 2.5 mg started at bedtime. Patient had increased bingeing on olanzapine consider more weight neutral medication Assessment and plan for 08/31/2021 Patient tolerated olanzapine 2.5 mg at bedtime. On further discussion with patient had developed significant binge eating while on Zyprexa previously. There is a new combined version of olanzapine which reportedly significantly controls weight gain with olanzapine other option would be to trial a 1st generation antipsychotics such as perphenazine which has a better EPS profile than Haldol or consider agent such as she done referral are with a better weight gain profile plan 1. Increase Zyprexa up to 3.75 mg. 2.Ativan 0.25 p.o. q.6 p.r.n. anxiety 3. MOCA test scored 14/30 last week, today she scored 23/30. 7/9: continue current mgmt. I spent ___10___ minutes with the patient and/or on the patient floor today, greater than?50% of which was spent counseling/coordinating care. Reason for contiued inpatient stay Substantial Risk for: inability to function and rapid decompensation
[2021-09-13 20:50] VITALS: BP 137/66; PULSE 75; RESP 14; TEMP 37.2; O2SAT 97
[2021-09-13] MEDS: Donepezil HCl 5 MG TABLET PO (21:02)
[2021-09-13] MEDS: OLANZapine 5 MG TABLET PO (21:02)
[2021-09-14 06:00] VITALS: BP 114/50; PULSE 72; RESP 17; TEMP 37; O2SAT 96
[2021-09-14] MEDS: Clopidogrel Bisulfate 75 MG TABLET PO (09:01)
[2021-09-14] MEDS: Multivitamin TABLET 1 TAB PO (09:01)
[2021-09-14] MEDS: Cholecalciferol (Vitamin D3) 25 MCG TABLET PO (09:01)
[2021-09-14] MEDS: Magnesium Oxide 400 MG TABLET PO (09:01)
[2021-09-14] MEDS: carvediloL 6.25 MG TABLET PO ×2 (09:01→20:15)
[2021-09-14] MEDS: amLODIPine Besylate 5 MG TABLET PO (09:02)
[2021-09-14] MEDS: Omeprazole 20 MG CAPSULE.DR PO (09:02)
[2021-09-14] MEDS: lisinopriL 10 MG TABLET PO ×2 (09:02→20:15)
[2021-09-14] MEDS: Furosemide 40 MG TABLET PO (09:02)
[2021-09-14] MEDS: Magnesium Hydrox/Alum Hydrox 30 ML ORAL.SUSP PO (11:48)
--- NOTE | 2021-09-14 11:51 | P.PNPSI_ITS ---
Subjective Subjective Date of Service: 09/14/21 Reason For Visit: Psychosis Interim History: pt found lying in bed, as yesterday. no questions or complaints, states she is doing fine. per staff, remains isolative and paranoid. med-compliant, but believes what she is being given is not her actual medication. Mental Status Exam Mental Status Exam Narrative: adequately dressed and groomed. cooperative. speech decr in amount, prosody. thoughts linear, paranoid. affect constricted. mood not assessed. no SI/HI/AVH expressed. Diagnostics Vital Signs (24Hr): Vital Signs - 24 hr 09/13/21 20:50 09/14/21 06:00 Temperature 98.9 F 98.6 F Pulse Rate 75 72 Respiratory Rate 14 17 Blood Pressure 137/66 114/50 L Pulse Oximetry 97 96 Oxygen Delivery Method Room Air Room Air BMI result Body Mass Index 24.3 Labs Results: 09/12/21 07:51 09/12/21 07:51 Medications Medications Current Medications Acetaminophen (Acetaminophen 325 Mg Tablet) 650 mg PO Q6H PRN PRN Reason: Headache/Pain Mild Scale (1-3) Al Hydroxide/Mg Hydroxide (Magnesium Hydrox/Alum Hydrox 30 Ml Oral.Susp) 30 ml PO Q6H PRN PRN Reason: Heartburn/Nausea Last Admin: 09/14/21 11:48 Dose: 30 ml Amlodipine Besylate (Amlodipine Besylate 5 Mg Tablet) 5 mg PO DAILY [facility]; Protocol Last Admin: 09/14/21 09:02 Dose: 5 mg Benztropine Mesylate (Benztropine Mesylate 0.5 Mg Tablet) 0.5 mg PO BID PRN PRN Reason: Extrapyramidal Effects Last Admin: 08/29/21 22:11 Dose: 0.5 mg Carvedilol (Carvedilol 6.25 Mg Tablet) 6.25 mg PO BID [facility]; Protocol Last Admin: 09/14/21 09:01 Dose: 6.25 mg Clopidogrel Bisulfate (Clopidogrel Bisulfate 75 Mg Tablet) 75 mg PO DAILY [facility] Last Admin: 09/14/21 09:01 Dose: 75 mg Donepezil HCl (Donepezil Hcl 5 Mg Tablet) 5 mg PO BEDTIME [facility] Last Admin: 09/13/21 21:02 Dose: 5 mg Furosemide (Furosemide 40 Mg Tablet) 40 mg PO DAILY [facility]; Protocol Last Admin: 09/14/21 09:02 Dose: 40 mg Lisinopril (Lisinopril 10 Mg Tablet) 10 mg PO BID [facility]; Protocol Last Admin: 09/14/21 09:02 Dose: 10 mg Magnesium Hydroxide (Milk Of Magnesia 30 Ml Oral.Susp) 30 ml PO DAILY PRN PRN Reason: Constipation Magnesium Oxide (Magnesium Oxide 400 Mg Tablet) 400 mg PO DAILY [facility] Last Admin: 09/14/21 09:01 Dose: 400 mg Multivitamins/Vitamin C (Multivitamin Tablet) 1 tab PO DAILY [facility] Last Admin: 09/14/21 09:01 Dose: 1 tab Olanzapine (Olanzapine 5 Mg Tablet) 5 mg PO BEDTIME [facility] Last Admin: 09/13/21 21:02 Dose: 5 mg Omeprazole (Omeprazole 20 Mg Capsule.Dr) 20 mg PO DAILY [facility] Last Admin: 09/14/21 09:02 Dose: 20 mg Potassium Chloride (Potassium Chloride Er 10 Meq Capsule.Er) 10 meq PO DAILY [facility] Last Admin: 09/14/21 09:01 Dose: 10 meq Vitamin D (Cholecalciferol (Vitamin D3) 25 Mcg Tablet) 25 mcg PO DAILY [facility] Last Admin: 09/14/21 09:01 Dose: 25 mcg Allergies Allergies Allergy/AdvReac Type Severity Reaction Status Date / Time haloperidol [From Haldol] AdvReac Numbness Verified 08/31/21 01:44 Assessment & Plan Assessment & Plan (1) Schizoaffective disorder, bipolar type: Status: Acute Code(s): F25.0 - Schizoaffective disorder, bipolar type Plan Assessment and plan for 08/30/2021 Patient had possible urgent reaction to Haldol now discontinued. Ney p.r.n. ordered for EPS. [place] 2.5 mg started at bedtime. Patient had increased bingeing on olanzapine consider more weight neutral medication Assessment and plan for 08/31/2021 Patient tolerated olanzapine 2.5 mg at bedtime. On further discussion with patient had developed significant binge eating while on Zyprexa previously. There is a new combined version of olanzapine which reportedly significantly controls weight gain with olanzapine other option would be to trial a 1st generation antipsychotics such as perphenazine which has a better EPS profile than Haldol or consider agent such as she done referral are with a better weight gain profile plan 1. Increase Zyprexa up to 3.75 mg. 2.Ativan 0.25 p.o. q.6 p.r.n. anxiety 3. MOCA test scored 14/30 last week, today she scored 23/30. 09/13: continue current mgmt. 09/14: continue current mgmt. I spent __10____ minutes with the patient and/or on the patient floor today, greater than?50% of which was spent counseling/coordinating care. Reason for contiued inpatient stay Substantial Risk for: inability to function and rapid decompensation
[2021-09-14 18:00] VITALS: BP 123/60; PULSE 73; RESP 16; TEMP 36.7; O2SAT 97
[2021-09-14] MEDS: Donepezil HCl 5 MG TABLET PO (20:15)
[2021-09-14] MEDS: OLANZapine 5 MG TABLET PO (20:16)
[2021-09-15 07:00] VITALS: BP 134/64; PULSE 63; RESP 18; TEMP 36.7; O2SAT 97
[2021-09-15] MEDS: Omeprazole 20 MG CAPSULE.DR PO (08:46)
[2021-09-15] MEDS: Clopidogrel Bisulfate 75 MG TABLET PO (08:46)
[2021-09-15] MEDS: Furosemide 40 MG TABLET PO (08:46)
[2021-09-15] MEDS: Cholecalciferol (Vitamin D3) 25 MCG TABLET PO (08:46)
[2021-09-15] MEDS: Multivitamin TABLET 1 TAB PO (08:46)
[2021-09-15] MEDS: amLODIPine Besylate 5 MG TABLET PO (08:46)
[2021-09-15] MEDS: lisinopriL 10 MG TABLET PO ×2 (08:47→20:31)
[2021-09-15] MEDS: carvediloL 6.25 MG TABLET PO ×2 (08:47→20:31)
[2021-09-15] MEDS: Magnesium Oxide 400 MG TABLET PO (08:47)
--- NOTE | 2021-09-15 15:20 | HO.PSYCHPN ---
Subjective Subjective Date of Service: 09/15/21 Reason For Visit: Psychosis Subjective Notes: Conditional Voluntary Interim History: The nursing staff reported the patient has been isolative, she has not attended to groups. She has been fully compliant with treatment. Her Noti . On interview the patient denies new symptoms she remains isolative in her room. No changes in her mental status Mental Status Exam Mental Status Exam Patient Appearance: Well Grooomed Patient Orientation: Person and Situation Level of Consciousness: Awake Patient Behavior: Guarded Mood Description: Withdrawn Affect Description: Constricted Patient Cognition Impaired: Yes Ability to Follow Directions: Good Speech Pattern: Clear Hallucinations: None Delusions: Paranoid Ideation Thought Process: Distracted and Evasive Thought Content: positive for [place] Judgement: Fair Diagnostics Vital Signs (24Hr): Vital Signs - 24 hr 09/14/21 18:00 09/15/21 07:00 Temperature 98.0 F 98.0 F Pulse Rate 73 63 Respiratory Rate 16 18 Blood Pressure 123/60 134/64 Pulse Oximetry 97 97 Oxygen Delivery Method Room Air Room Air BMI result Body Mass Index 24.3 Labs Results: 09/12/21 07:51 09/12/21 07:51 Medications Medications Current Medications Acetaminophen (Acetaminophen 325 Mg Tablet) 650 mg PO Q6H PRN PRN Reason: Headache/Pain Mild Scale (1-3) Al Hydroxide/Mg Hydroxide (Magnesium Hydrox/Alum Hydrox 30 Ml Oral.Susp) 30 ml PO Q6H PRN PRN Reason: Heartburn/Nausea Last Admin: 09/14/21 11:48 Dose: 30 ml Amlodipine Besylate (Amlodipine Besylate 5 Mg Tablet) 5 mg PO DAILY [facility]; Protocol Last Admin: 09/15/21 08:46 Dose: 5 mg Benztropine Mesylate (Benztropine Mesylate 0.5 Mg Tablet) 0.5 mg PO BID PRN PRN Reason: Extrapyramidal Effects Last Admin: 08/29/21 22:11 Dose: 0.5 mg Carvedilol (Carvedilol 6.25 Mg Tablet) 6.25 mg PO BID [facility]; Protocol Last Admin: 09/15/21 08:47 Dose: 6.25 mg Clopidogrel Bisulfate (Clopidogrel Bisulfate 75 Mg Tablet) 75 mg PO DAILY [facility] Last Admin: 09/15/21 08:46 Dose: 75 mg Donepezil HCl (Donepezil Hcl 5 Mg Tablet) 5 mg PO BEDTIME [facility] Last Admin: 09/14/21 20:15 Dose: 5 mg Furosemide (Furosemide 40 Mg Tablet) 40 mg PO DAILY [facility]; Protocol Last Admin: 09/15/21 08:46 Dose: 40 mg Lisinopril (Lisinopril 10 Mg Tablet) 10 mg PO BID [facility]; Protocol Last Admin: 09/15/21 08:47 Dose: 10 mg Magnesium Hydroxide (Milk Of Magnesia 30 Ml Oral.Susp) 30 ml PO DAILY PRN PRN Reason: Constipation Magnesium Oxide (Magnesium Oxide 400 Mg Tablet) 400 mg PO DAILY [facility] Last Admin: 09/15/21 08:47 Dose: 400 mg Multivitamins/Vitamin C (Multivitamin Tablet) 1 tab PO DAILY [facility] Last Admin: 09/15/21 08:46 Dose: 1 tab Olanzapine (Olanzapine 5 Mg Tablet) 5 mg PO BEDTIME [facility] Last Admin: 09/14/21 20:16 Dose: 5 mg Omeprazole (Omeprazole 20 Mg Capsule.Dr) 20 mg PO DAILY [facility] Last Admin: 09/15/21 08:46 Dose: 20 mg Vitamin D (Cholecalciferol (Vitamin D3) 25 Mcg Tablet) 25 mcg PO DAILY [facility] Last Admin: 09/15/21 08:46 Dose: 25 mcg Allergies Allergies Allergy/AdvReac Type Severity Reaction Status Date / Time haloperidol [From Haldol] AdvReac Numbness Verified 08/31/21 01:44 Assessment & Plan Assessment & Plan (1) Schizoaffective disorder, bipolar type: Status: Acute Code(s): F25.0 - Schizoaffective disorder, bipolar type Plan Assessment and plan for 08/30/2021 Patient had possible urgent reaction to Haldol now discontinued. Ney p.r.n. ordered for EPS. [place] 2.5 mg started at bedtime. Patient had increased bingeing on olanzapine consider more weight neutral medication Assessment and plan for 08/31/2021 Patient tolerated olanzapine 2.5 mg at bedtime. On further discussion with patient had developed significant binge eating while on Zyprexa previously. There is a new combined version of olanzapine which reportedly significantly controls weight gain with olanzapine other option would be to trial a 1st generation antipsychotics such as perphenazine which has a better EPS profile than Haldol or consider agent such as she done referral are with a better weight gain profile plan 1. Increase Zyprexa up to 5 mg last week. 2.Ativan 0.25 p.o. q.6 p.r.n. anxiety 3. MOCA test scored 14/30 last week, later she scored 23/30. I spent __20____ minutes with the patient and/or on the patient floor today, greater than?50% of which was spent counseling/coordinating care. Reason for contiued inpatient stay Substantial Risk for: inability to function, rapid decompensation and med/psych decompensation
[2021-09-15 20:30] VITALS: BP 124/64; PULSE 71; TEMP 36.4; O2SAT 96
[2021-09-15] MEDS: Donepezil HCl 5 MG TABLET PO (20:31)
[2021-09-15] MEDS: OLANZapine 5 MG TABLET PO (20:31)
[2021-09-16 07:00] VITALS: BP 168/74; PULSE 73; RESP 17; TEMP 36.6; O2SAT 95
[2021-09-16] MEDS: Clopidogrel Bisulfate 75 MG TABLET PO (08:42)
[2021-09-16] MEDS: Furosemide 40 MG TABLET PO (08:42)
[2021-09-16] MEDS: Cholecalciferol (Vitamin D3) 25 MCG TABLET PO (08:42)
[2021-09-16] MEDS: amLODIPine Besylate 5 MG TABLET PO (08:43)
[2021-09-16] MEDS: Magnesium Oxide 400 MG TABLET PO (08:43)
[2021-09-16] MEDS: carvediloL 6.25 MG TABLET PO ×2 (08:43→20:45)
[2021-09-16] MEDS: Multivitamin TABLET 1 TAB PO (08:44)
[2021-09-16] MEDS: Omeprazole 20 MG CAPSULE.DR PO (08:44)
[2021-09-16] MEDS: lisinopriL 10 MG TABLET PO ×2 (08:44→20:45)
[2021-09-16 08:54] LABS: COVID-19 Test Negative (Negative); IDNOW Serial# 9DB6401D
--- NOTE | 2021-09-16 14:54 | P.PNPSI_ITS ---
Subjective Subjective Date of Service: 09/16/21 Reason For Visit: Psychosis Subjective Notes: Conditional Voluntary Interim History: the patient is COVID-19 negative. The patient will be discharged tomorrow since there is no active psychotic symptoms. On interview the patient denies new symptoms I advised her to continue medications sings she will come back if she stops Zyprexa. Mental Status Exam Mental Status Exam Patient Appearance: Well Grooomed Level of Consciousness: Awake Patient Behavior: Cooperative Mood Description: Withdrawn Affect Description: Constricted Patient Cognition Impaired: Yes Ability to Follow Directions: Good Speech Pattern: Impoverished Hallucinations: None Delusions: Paranoid Ideation Thought Process: Distracted Thought Content: positive for [place] Judgement: Fair Diagnostics Vital Signs (24Hr): Vital Signs - 24 hr 09/15/21 20:30 09/16/21 07:00 Temperature 97.6 F 97.8 F Pulse Rate 71 73 Respiratory Rate 17 Blood Pressure 124/64 168/74 H Pulse Oximetry 96 95 Oxygen Delivery Method Room Air Room Air BMI result Body Mass Index 24.3 Labs Results: 09/12/21 07:51 09/12/21 07:51 Labs: Laboratory Results - last 48 hr 09/16/21 08:18 COVID-19 ([facility]) Negative COVID-19 Clin Com See Note Medications Medications Current Medications Acetaminophen (Acetaminophen 325 Mg Tablet) 650 mg PO Q6H PRN PRN Reason: Headache/Pain Mild Scale (1-3) Al Hydroxide/Mg Hydroxide (Magnesium Hydrox/Alum Hydrox 30 Ml Oral.Susp) 30 ml PO Q6H PRN PRN Reason: Heartburn/Nausea Last Admin: 09/14/21 11:48 Dose: 30 ml Amlodipine Besylate (Amlodipine Besylate 5 Mg Tablet) 5 mg PO DAILY [facility]; Protocol Last Admin: 09/16/21 08:43 Dose: 5 mg Benztropine Mesylate (Benztropine Mesylate 0.5 Mg Tablet) 0.5 mg PO BID PRN PRN Reason: Extrapyramidal Effects Last Admin: 08/29/21 22:11 Dose: 0.5 mg Carvedilol (Carvedilol 6.25 Mg Tablet) 6.25 mg PO BID [facility]; Protocol Last Admin: 09/16/21 08:43 Dose: 6.25 mg Clopidogrel Bisulfate (Clopidogrel Bisulfate 75 Mg Tablet) 75 mg PO DAILY [facility] Last Admin: 09/16/21 08:42 Dose: 75 mg Donepezil HCl (Donepezil Hcl 5 Mg Tablet) 5 mg PO BEDTIME [facility] Last Admin: 09/15/21 20:31 Dose: 5 mg Furosemide (Furosemide 40 Mg Tablet) 40 mg PO DAILY [facility]; Protocol Last Admin: 09/16/21 08:42 Dose: 40 mg Lisinopril (Lisinopril 10 Mg Tablet) 10 mg PO BID [facility]; Protocol Last Admin: 09/16/21 08:44 Dose: 10 mg Magnesium Hydroxide (Milk Of Magnesia 30 Ml Oral.Susp) 30 ml PO DAILY PRN PRN Reason: Constipation Magnesium Oxide (Magnesium Oxide 400 Mg Tablet) 400 mg PO DAILY [facility] Last Admin: 09/16/21 08:43 Dose: 400 mg Multivitamins/Vitamin C (Multivitamin Tablet) 1 tab PO DAILY [facility] Last Admin: 09/16/21 08:44 Dose: 1 tab Olanzapine (Olanzapine 5 Mg Tablet) 5 mg PO BEDTIME [facility] Last Admin: 09/15/21 20:31 Dose: 5 mg Omeprazole (Omeprazole 20 Mg Capsule.Dr) 20 mg PO DAILY [facility] Last Admin: 09/16/21 08:44 Dose: 20 mg Vitamin D (Cholecalciferol (Vitamin D3) 25 Mcg Tablet) 25 mcg PO DAILY [facility] Last Admin: 09/16/21 08:42 Dose: 25 mcg Allergies Allergies Allergy/AdvReac Type Severity Reaction Status Date / Time haloperidol [From Haldol] AdvReac Numbness Verified 08/31/21 01:44 Assessment & Plan Assessment & Plan (1) Schizoaffective disorder, bipolar type: Status: Acute Code(s): F25.0 - Schizoaffective disorder, bipolar type Plan Assessment and plan for 08/30/2021 Patient had possible urgent reaction to Haldol now discontinued. Indigoentin p.r. n. ordered for EPS. [place] 2.5 mg started at bedtime. Patient had increased bingeing on olanzapine consider more weight neutral medication Assessment and plan for 08/31/2021 Patient tolerated olanzapine 2.5 mg at bedtime. On further discussion with patient had developed significant binge eating while on Zyprexa previously. There is a new combined version of olanzapine which reportedly significantly controls weight gain with olanzapine other option would be to trial a 1st generation antipsychotics such as perphenazine which has a better EPS profile than Haldol or consider agent such as she done referral are with a better weight gain profile plan 1. Increase Zyprexa up to 5 mg last week. 2.Ativan 0.25 p.o. q.6 p.r.n. anxiety 3. MOCA test scored 14/30 last week, later she scored 23/30. I spent ____20__ minutes with the patient and/or on the patient floor today, greater than?50% of which was spent counseling/coordinating care. Reason for contiued inpatient stay Substantial Risk for: inability to function, rapid decompensation and med/psych decompensation
--- NOTE | 2021-09-16 14:59 | HO.PSYCHPN ---
Subjective Subjective Reason For Visit: Psychosis Diagnostics Vital Signs (24Hr): Vital Signs - 24 hr 09/15/21 20:30 09/16/21 07:00 Temperature 97.6 F 97.8 F Pulse Rate 71 73 Respiratory Rate 17 Blood Pressure 124/64 168/74 H Pulse Oximetry 96 95 Oxygen Delivery Method Room Air Room Air BMI result Body Mass Index 24.3 Labs Results: 09/12/21 07:51 09/12/21 07:51 Labs: Laboratory Results - last 48 hr 09/16/21 08:18 COVID-19 ([facility]) Negative COVID-19 Clin Com See Note Medications Medications Current Medications Acetaminophen (Acetaminophen 325 Mg Tablet) 650 mg PO Q6H PRN PRN Reason: Headache/Pain Mild Scale (1-3) Al Hydroxide/Mg Hydroxide (Magnesium Hydrox/Alum Hydrox 30 Ml Oral.Susp) 30 ml PO Q6H PRN PRN Reason: Heartburn/Nausea Last Admin: 09/14/21 11:48 Dose: 30 ml Amlodipine Besylate (Amlodipine Besylate 5 Mg Tablet) 5 mg PO DAILY [facility]; Protocol Last Admin: 09/16/21 08:43 Dose: 5 mg Benztropine Mesylate (Benztropine Mesylate 0.5 Mg Tablet) 0.5 mg PO BID PRN PRN Reason: Extrapyramidal Effects Last Admin: 08/29/21 22:11 Dose: 0.5 mg Carvedilol (Carvedilol 6.25 Mg Tablet) 6.25 mg PO BID [facility]; Protocol Last Admin: 09/16/21 08:43 Dose: 6.25 mg Clopidogrel Bisulfate (Clopidogrel Bisulfate 75 Mg Tablet) 75 mg PO DAILY [facility] Last Admin: 09/16/21 08:42 Dose: 75 mg Donepezil HCl (Donepezil Hcl 5 Mg Tablet) 5 mg PO BEDTIME [facility] Last Admin: 09/15/21 20:31 Dose: 5 mg Furosemide (Furosemide 40 Mg Tablet) 40 mg PO DAILY [facility]; Protocol Last Admin: 09/16/21 08:42 Dose: 40 mg Lisinopril (Lisinopril 10 Mg Tablet) 10 mg PO BID [facility]; Protocol Last Admin: 09/16/21 08:44 Dose: 10 mg Magnesium Hydroxide (Milk Of Magnesia 30 Ml Oral.Susp) 30 ml PO DAILY PRN PRN Reason: Constipation Magnesium Oxide (Magnesium Oxide 400 Mg Tablet) 400 mg PO DAILY [facility] Last Admin: 09/16/21 08:43 Dose: 400 mg Multivitamins/Vitamin C (Multivitamin Tablet) 1 tab PO DAILY [facility] Last Admin: 09/16/21 08:44 Dose: 1 tab Olanzapine (Olanzapine 5 Mg Tablet) 5 mg PO BEDTIME [facility] Last Admin: 09/15/21 20:31 Dose: 5 mg Omeprazole (Omeprazole 20 Mg Capsule.Dr) 20 mg PO DAILY [facility] Last Admin: 09/16/21 08:44 Dose: 20 mg Vitamin D (Cholecalciferol (Vitamin D3) 25 Mcg Tablet) 25 mcg PO DAILY [facility] Last Admin: 09/16/21 08:42 Dose: 25 mcg Allergies Allergies Allergy/AdvReac Type Severity Reaction Status Date / Time haloperidol [From Haldol] AdvReac Numbness Verified 08/31/21 01:44 Assessment & Plan Assessment & Plan (1) Schizoaffective disorder, bipolar type: Status: Acute Code(s): F25.0 - Schizoaffective disorder, bipolar type Plan Assessment and plan for 08/30/2021 Patient had possible urgent reaction to Haldol now discontinued. Cogentin p.r.n. ordered for EPS. [place] 2.5 mg started at bedtime. Patient had increased bingeing on olanzapine consider more weight neutral medication Assessment and plan for 08/31/2021 Patient tolerated olanzapine 2.5 mg at bedtime. On further discussion with patient had developed significant binge eating while on Zyprexa previously. There is a new combined version of olanzapine which reportedly significantly controls weight gain with olanzapine other option would be to trial a 1st generation antipsychotics such as perphenazine which has a better EPS profile than Haldol or consider agent such as she done referral are with a better weight gain profile plan 1. Increase Zyprexa up to 5 mg last week. 2.Ativan 0.25 p.o. q.6 p.r.n. anxiety 3. MOCA test scored 14/30 last week, later she scored 23/30. I spent minutes with the patient and/or on the patient floor today, greater than?50% of which was spent counseling/coordinating care.
[2021-09-16 18:00] VITALS: BP 142/77; PULSE 73; RESP 16; TEMP 36.1; O2SAT 98
[2021-09-16] MEDS: OLANZapine 5 MG TABLET PO (20:45)
[2021-09-16] MEDS: Donepezil HCl 5 MG TABLET PO (20:46)
[2021-09-17 07:40] VITALS: BP 160/75; PULSE 69; RESP 16; TEMP 36.9; O2SAT 97
--- NOTE | 2021-09-17 08:17 | PM.PSYDC ---
DS: Providers Provider Date of Service: 09/17/21 Date of admission: 08/26/21 17:33 Date of discharge: 09/17/21 Primary care physician: Garrison Beatty MD Attending physician on discharge: Nirmal Dickinson DS: Diagnosis Discharge Diagnosis (1) Schizoaffective disorder, bipolar type: Status: Acute DS: Medications Discharge Medications Home Medications: Home Medications Medication Instructions Recorded Confirmed carvedilol 6.25 mg tablet 1 tab PO BID 08/25/21 08/25/21 magnesium 250 mg tablet 250 mg PO DAILY 08/25/21 08/25/21 olanzapine 2.5 mg tablet 2.5 mg PO BEDTIME 08/25/21 08/25/21 potassium chloride 20 mEq 10 meq PO DAILY 08/25/21 08/25/21 tablet,extended release(part/cryst) Previous Rx's Medication Instructions Recorded amlodipine 5 mg tablet 5 mg PO DAILY 30 days #30 tabs 03/03/21 clopidogrel 75 mg tablet 75 mg PO DAILY 30 days #30 tabs 03/03/21 donepezil 5 mg tablet 5 mg PO BEDTIME 30 days #30 tabs 03/03/21 furosemide 40 mg tablet 1 tab PO DAILY 30 days #30 tabs 03/03/21 lisinopril 10 mg tablet 10 mg PO BID 30 days #60 tabs 03/03/21 pantoprazole 40 mg tablet,delayed 1 tab PO DAILY 30 days #30 tabs 03/03/21 release Mental Status Exam Mental Status Exam Patient Appearance: Well Grooomed Patient Orientation: Person and Situation Level of Consciousness: Awake Patient Behavior: Guarded and Cooperative Mood Description: Withdrawn Affect Description: Constricted Patient Cognition Impaired: Yes Ability to Follow Directions: Good Speech Pattern: Clear Hallucinations: None Delusions: Paranoid Ideation Thought Process: Distracted Thought Content: positive for Circumstantial Judgement: Fair Data Data Completed and Pending Completed studies during hospitalization [Text1]: 09/12/21 09/12/21 09/12/21 07:51 07:51 07:51 WBC 6.8 RBC 4.45 Hgb 13.5 Hct 39.9 MCV 89.7 MCH 30.3 MCHC 33.8 RDW 12.7 Plt Count 277 MPV 9.3 L Immature Gran % (Auto) 0.4 Neut % (Auto) 61.5 Lymph % (Auto) 26.5 [place] % (Auto) 9.6 Eos % (Auto) 1.6 Baso % (Auto) 0.4 Lymph # (Auto) 1.8 [place] # (Auto) 0.7 Eos # (Auto) 0.1 Baso # (Auto) 0.0 Abs Immat Gran (auto) 0.03 Absolute Neuts (auto) 4.2 Absolute Nucleated RBC 0.000 Nucleated RBC % (auto) 0.0 Sodium 138 Potassium 4.0 Chloride 101 Carbon Dioxide 27 Anion Gap 14 BUN 19 H Creatinine 0.65 Estim Creat Clear Calc 60.9 Estimated GFR > 60 Random Glucose 102 Estimat Average Glucose 120 Hemoglobin A1c % 5.8 Calcium 9.5 D Total Bilirubin 0.2 Direct Bilirubin < 0.2 AST 17 ALT 16 Alkaline Phosphatase 86 Total Protein 6.8 Albumin 4.1 Triglycerides 228 Cholesterol 306 LDL Cholesterol, Calc 202 HDL Cholesterol 59 COVID-19 ([facility]) COVID-19 Clin Com 09/16/21 08:18 WBC RBC Hgb Hct MCV MCH MCHC RDW Plt Count MPV Immature Gran % (Auto) Neut % (Auto) Lymph % (Auto) [place] % (Auto) Eos % (Auto) Baso % (Auto) Lymph # (Auto) [place] # (Auto) Eos # (Auto) Baso # (Auto) Abs Immat Gran (auto) Absolute Neuts (auto) Absolute Nucleated RBC Nucleated RBC % (auto) Sodium Potassium Chloride Carbon Dioxide Anion Gap BUN Creatinine Estim Creat Clear Calc Estimated GFR Random Glucose Estimat Average Glucose Hemoglobin A1c % Calcium Total Bilirubin Direct Bilirubin AST ALT Alkaline Phosphatase Total Protein Albumin Triglycerides Cholesterol LDL Cholesterol, Calc HDL Cholesterol COVID-19 ([facility]) Negative COVID-19 Clin Com See Note DS: Summary Hospital Course Hospital Course: The patient was readmitted into this facility after she relapsed on her psychosis. According to collateral information, the patient stop her Risperdal and her outpatient provider restart her on Zyprexa but she became noncompliant. She became paranoid and she started knocking on neighbor's doors. She was assessed by crisis and transferring to this facility for psychiatric stabilization. Please see HPI of the admission note for further details. On admission, the patient reported that she had several side effects with Risperdal and she did not want to go back to it. We went back to Zyprexa but she reported slight over-sedation. We tried Haldol but she developed an allergic reaction we needed to stop it right away. So we went back to Zyprexa titrated up to 5 mg p.o. q.h.s. with no side effects. While she was in the facility did, the patient has been paranoid, internally preoccupied, seclusive mostly in her room, not participating in groups but with no safety concerns, easily redirectable. The patient has very poor insight into her condition she stated that she is going to continue her medications outside but most likely she will stop it. I offer her long-term injectable but she refused this treatment option. We assessed about her cognition initially due to her anxiety and paranoia she scored very low on the [place], after a few days of treatment with Zyprexa we re-did the [place] she scored 23/30. We had several family meetings and we explored the possibility for rule years order and others the inguinal on records is that we can use for compliance but at this moment, since there were no safety concerns the possibility of this legal actions are not feasible. The patient did not show any safety concerns while she was in the facility, so discharge planning was discussed. Time spent discussing smoking cessation with patient: 3 to 10 minutes Status at Discharge Cognitive/behavioral status at discharge: [place] 23/30 Functional status at discharge: independent ambulation Overall status at discharge: patient is back to baseline Time Spent with Patient Time attestation: Total time spent providing and/or coordinating discharge services: Time spent: Less than 30 minutes Discharge Plan Discharge Patient Disposition: Home, Self-Care Discharge Diagnosis: schizoaffective disorder depressed type Referrals: [facility] [Other] - 09/29/21 10:30 am ( Appointment scheduled with Annette Dalal via TELEHEALTH on 09/29/21 @ 10:30 AM.) [facility] [Other] - 3-5 Days (Referral made for [facility] home care services on 09/16/21. Please call and follow up 3-5 days after dischrge to [facility] in on status of referral.) Garrison Beatty MD [Primary Care Provider] - 1 Week Discharge Medications: New furosemide 40 mg Tablet 40 mg PO DAILY 30 Days Qty: 30 0RF Protocol: Hold for SBP< HOLD for SBP < : 90 carvedilol 6.25 mg Tablet 6.25 mg PO BID 30 Days Qty: 60 0RF Protocol: Hold for SBP/HR < HOLD for SBP < : 90 HOLD for HR < : 60 donepezil 5 mg Tablet 5 mg PO BEDTIME 30 Days Qty: 30 0RF olanzapine 5 mg Tablet 5 mg PO BEDTIME 30 Days Qty: 30 0RF clopidogrel 75 mg Tablet 75 mg PO DAILY 30 Days Qty: 30 0RF amlodipine 5 mg Tablet 5 mg PO DAILY 30 Days Qty: 30 0RF Protocol: Hold for SBP< HOLD for SBP < : 90 magnesium oxide 400 mg (241.3 mg magnesium) Tablet 400 mg PO DAILY 30 Days Qty: 30 0RF lisinopril 10 mg Tablet 10 mg PO BID 30 Days Qty: 60 0RF Protocol: Hold for SBP< HOLD for SBP < : 90 cholecalciferol (vitamin D3) 25 mcg (1,000 unit) Tablet 25 mcg PO DAILY 30 Days Qty: 30 0RF multivitamin [Daily-Brielle] Tablet 1 tab PO DAILY 30 Days Qty: 30 0RF Continued pantoprazole 40 mg tablet,delayed release (DR/EC) 1 tab PO DAILY 30 Days Qty: 30 0RF Discontinued donepezil 5 mg Tablet 5 mg PO BEDTIME 30 Days Qty: 30 0RF clopidogrel 75 mg Tablet 75 mg PO DAILY 30 Days Qty: 30 0RF amlodipine 5 mg Tablet 5 mg PO DAILY 30 Days Qty: 30 0RF Protocol: Hold for SBP< HOLD for SBP < : 90 lisinopril 10 mg Tablet 10 mg PO BID 30 Days Qty: 60 0RF Protocol: Hold for SBP< HOLD for SBP < : 90 furosemide 40 mg tablet 1 tab PO DAILY 30 Days Qty: 30 0RF potassium chloride 20 mEq tablet,ER particles/crystals 10 meq PO DAILY olanzapine 2.5 mg Tablet 2.5 mg PO BEDTIME carvedilol 6.25 mg tablet 1 tab PO BID magnesium 250 mg Tablet 250 mg PO DAILY Discharge Orders: Discharge Order (Routine); Ordered 09/17/21 Ordered By: Nirmal Dickinson Diet: Advance to usual diet Activity on Discharge: As tolerated Stand Alone Forms: Patient Portal Discharge page Care Plan Goals: care plan goals achieved in the distant admission. The patient does not have insight into her condition and most likely she will decompensate if she is not compliant Health Concerns: continue treatment by primary care physician Plan of Treatment: continue patient services Assessment: elderly female with a long history of schizoaffective disorder who was admitted for exacerbation of psychosis in the context of noncompliance. We tried Haldol but she had an allergic reaction and she wanted to go back to Zyprexa. At this moment no safety concerns.
[2021-09-17] MEDS: Cholecalciferol (Vitamin D3) 25 MCG TABLET PO (08:27)
[2021-09-17] MEDS: Multivitamin TABLET 1 TAB PO (08:27)
[2021-09-17] MEDS: lisinopriL 10 MG TABLET PO (08:28)
[2021-09-17] MEDS: carvediloL 6.25 MG TABLET PO (08:28)
[2021-09-17] MEDS: Furosemide 40 MG TABLET PO (08:28)
[2021-09-17] MEDS: Magnesium Oxide 400 MG TABLET PO (08:28)
[2021-09-17] MEDS: Clopidogrel Bisulfate 75 MG TABLET PO (08:28)
[2021-09-17] MEDS: amLODIPine Besylate 5 MG TABLET PO (08:29)
[2021-09-17] MEDS: Omeprazole 20 MG CAPSULE.DR PO (08:34)
== END 2021-09-17 11:55 | disposition home or self-care (01) | DRG 885 ==
LOC: HO.ED 08-26 15:31 → HO.PGERI 08-26 17:39
PROVIDERS: Admitting Provider Psychiatry & Neurology Psychiatry; Emergency Provider Emergency Medicine; PCP Internal Medicine; Visit Provider Psychiatry & Neurology Psychiatry
DX: F25.0 Schizoaffective disorder, bipolar type (principal); I25.10 Atherosclerotic heart disease of native coronary artery without angina pectoris; Z95.1 Presence of aortocoronary bypass graft; I25.5 Ischemic cardiomyopathy; F03.90 Unspecified dementia, unspecified severity, without behavioral disturbance, psychotic disturbance, mood disturbance, and anxiety; I10 Essential (primary) hypertension; Z20.822 Contact with and (suspected) exposure to COVID-19; Z91.14 Patient's other noncompliance with medication regimen; Z88.8 Allergy status to other drugs, medicaments and biological substances; Z79.02 Long term (current) use of antithrombotics/antiplatelets; Z79.899 Other long term (current) drug therapy
CPT/HCPCS: 36415; 80048; 80053; 80061; 80076; 80307; 81003; 82607; 82746; 83036; 83735; 85025; 87635; 93005; 99285

== ENCOUNTER 2021-11-06 16:10 | Emergency (ER) | payer MEDICARE, SELFPAY ==
--- NOTE | ~2021-11-06 | XR_ITS ---
EXAMINATION: XR CHEST CLINICAL INFORMATION: Short of breath COMPARISON: None TECHNIQUE: 2 views of the chest were obtained. FINDINGS: Median sternotomy wires appear intact. Surgical clips overlie the mediastinum. The lungs are well expanded. There is no focal consolidation, edema, or effusion. No pneumothorax. The cardiomediastinal silhouette is within normal limits. No acute osseous abnormality. Degenerative changes throughout the spine. XR/XR chest 2V IMPRESSION: Clear lungs.
[2021-11-06 16:17] VITALS: BP 140/80; PULSE 80; O2SAT 100
[2021-11-06 16:18] VITALS: BP 152/83; PULSE 81; RESP 19; TEMP 36.6; O2SAT 100; BMI 25.0
--- NOTE | 2021-11-06 16:23 | ECG_ITS ---
Test Reason : sob Blood Pressure : / mmHG Vent. Rate : 078 BPM Atrial Rate : 078 BPM P-R Int : 152 ms QRS Dur : 092 ms QT Int : 390 ms P-R-T Axes : 067 041 073 degrees QTc Int : 444 ms Sinus rhythm with occasional Premature ventricular complexes Left atrial enlargement Left ventricular hypertrophy ( [place] product ) Nonspecific T wave abnormality Abnormal ECG When compared with ECG of 26-AUG-2021 11:04, ST no longer depressed in Inferior leads ST no longer depressed in Lateral leads ST more elevated in Anterior leads Referred By: Generic ED Physician Electronically Signed By:MANA IVERSON
[2021-11-06 16:45] LABS: MANUAL DIFF FLAG NO
[2021-11-06 16:47] LABS: Basophils Percent Auto 0.5 % (0-2); Eosinophils Absolute Auto 0.1 X10*3/uL (0.0-0.4); Hemoglobin 14.1 g/dl (12.0-16.0); Imm Gran Abs Auto 0.05 X10*3/uL (0.00-0.03); Imm Gran Pct Auto 0.6 % (0.0-0.4); Lymphocytes Absolute Auto 2.1 X10*3/uL (1.2-4.9); Lymphocytes Percent Auto 25.5 % (20-40); Mean Corpuscular HGB Conc 34.4 g/dl (31.0-35.0); Mean Corpuscular Hemoglobin 30.5 pg (27.0-33.0); Mean Corpuscular Volume 88.7 fL (80.0-98.0); Mean Platelet Volume 9.7 fL (9.4-12.3); Monocytes Absolute Auto 0.9 X10*3/uL (0.1-1.2); Monocytes Percent Auto 11.1 % (2-11); Neutrophils Absolute Auto 5.1 x10*3/uL (2.0-8.3); Neutrophils Percent Auto 61.3 % (45-73); Platelet Count 332 X10*3/uL (160-400); Red Blood Count 4.62 X10*6/uL (4.20-5.50); Red Cell Distribution Width 12.1 % (11.0-16.0); White Blood Count 8.3 X10*3/uL (4.8-10.8)
[2021-11-06 17:07] LABS: Anion Gap 20 (12-20); Blood Urea Nitrogen 19 mg/dL (9-16); Calcium 10.5 mg/dL (8.4-10.2); Carbon Dioxide 22 mmol/L (22-29); Chloride 99 mmol/L (96-108); Creatinine Clr Calc Pharmacy 51.2; Estimated Glomerular Filt Rate > 60; Glucose Random 120 mg/dL (60-115); Potassium 4.2 mmol/L (3.3-5.1); Sodium 137 mmol/L (135-145)
[2021-11-06 17:09] LABS: Troponin-I High Sensitivity 11.9 ng/L (<3.5-17.0)
[2021-11-06 17:10] LABS: B Type Natriuretic Peptide 69 pg/mL (<100)
--- NOTE | 2021-11-06 17:30 | ED_ITS ---
HPI - SOB/Dyspnea General Chief Complaint: Upper Respiratory Symptoms Stated Complaint: Anxiety Time Seen by Provider: 11/06/21 16:41 Source: patient Mode of arrival: ambulatory Limitations: no limitations History of Present Illness HPI Narrative: 76-year-old female who presents emergency department for evaluation of shortness of breath. 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 She states she felt short of breath at rest. The shortness of breath did not get worse with exertion. She denied any other associated symptoms such as fever, chills, rhinorrhea, sore throat, cough, chest pain, dyspnea on exertion, nausea, vomiting, change in her bowel movements. She states that the shortness of breath lasted till approximately 1300 hours and then resolved. At the time my evaluation she has no complaints. The patient denied any swelling in her lower extremities, she states that she watches her salt intake and is on a diuretic. She has not been on any long trips or had any recent surgeries. She does not take estrogen supplements. MD elicited complaint: shortness of breath Pertinent past history: other (Myocardial infarction 02/29/2020, patient was treated at [facility] with a 2 vessel CABG and 1 stent.) Onset (ago): hour(s) (Symptoms started this morning for several hours, resolved at 13:00 hours) Timing: constant and improved Severity: mild Exacerbating factors: nothing Relieving factors: nothing Known history of: diabetes and other (MT 02/28/2022) Associated symptoms: denies other symptoms Treatment prior to arrival: none Related Data Home oxygen amount: none Previous Rx's Medication Instructions Recorded amlodipine 5 mg tablet 5 mg PO DAILY 30 days #30 tabs 09/17/21 carvedilol 6.25 mg tablet 6.25 mg PO BID 30 days #60 tabs 09/17/21 cholecalciferol (vitamin D3) 25 25 mcg PO DAILY 30 days #30 tabs 09/17/21 mcg (1,000 unit) tablet clopidogrel 75 mg tablet 75 mg PO DAILY 30 days #30 tabs 09/17/21 donepezil 5 mg tablet 5 mg PO BEDTIME 30 days #30 tabs 09/17/21 furosemide 40 mg tablet 40 mg PO DAILY 30 days #30 tabs 09/17/21 lisinopril 10 mg tablet 10 mg PO BID 30 days #60 tabs 09/17/21 magnesium oxide 400 mg (241.3 mg 400 mg PO DAILY 30 days #30 tabs 09/17/21 magnesium) tablet multivitamin (Daily-Brielle tablet) 1 tab PO DAILY 30 days #30 tabs 09/17/21 olanzapine 5 mg tablet 5 mg PO BEDTIME 30 days #30 tabs 09/17/21 pantoprazole 40 mg tablet,delayed 1 tab PO DAILY 30 days #30 tabs 09/17/21 release Allergies Allergy/AdvReac Type Severity Reaction Status Date / Time haloperidol [From Haldol] AdvReac Numbness Verified 08/31/21 01:44 Review of Systems Review of Systems: Yes all other systems are reviewed and are negative [facility] Past Medical History [facility] Narrative: Past medical history: Diabetes mellitus, high cholesterol, peripheral edema secondary to fluid retention, schizophrenia with paranoia, ischemic cardiomyopat hy, myocardial infarction 02/29/2020 treated at [facility] with 2 vessel CABG and 1 stent. Past surgical history: CABG February 2020. Tonsillectomy. Social history: She denies tobacco, alcohol and drug use. Medical History Coronary artery disease Essential hypertension Ischemic cardiomyopathy Schizoaffective disorder, bipolar type Surgical History S/P CABG (coronary artery bypass graft) Social History Social History Household Members: None Housing: Apartment Do you presently have visiting nurse or other home services: No Patient Tobacco Use Status: Never used Tobacco e-Cigarette/Vaping Use: Never Used Advance Directives: Yes Advance Directives on File: Yes Advance Directives Date on File: 03/06/21 service: No Sexual orientation: Straight/Heterosexual Physical Exam Vital Signs: Vital Signs: Last Vital Signs Temp 98 F 11/06/21 16:18 Pulse 81 11/06/21 16:18 Resp 19 11/06/21 16:18 BP 152/83 H 11/06/21 16:18 Pulse Ox 100 11/06/21 16:18 O2 Del Method 11/06/21 16:18 BMI result Body Mass Index 25.0 Const: General: cooperative and no acute distress Orientation/consciousness: oriented to person and oriented to place Limitations: no limitations HEENT: Head: Yes normal to inspection, Yes normocephalic and Yes atraumatic Ears: external ears normal General nose exam: Normal external nose present Face and sinus: Yes normal facial exam Mouth: Normal oral and palatal mucosa present Throat: Yes posterior oropharynx normal Eyes: General: appearance normal, both eyes and all related structures Pupils: Equal, round and reactive pupils present Neck: Neck: Yes normal visual inspection, Yes no lymphadenopathy, Yes trachea midline and Yes supple Chest: Chest palpation & inspection: normal inspection of the chest and normal palpation of entire chest wall Resp: Effort & Inspection: normal respiratory effort and able to speak in complete sentences Auscultation: clear to auscultation bilaterally Cardio: Rate: regular rate Rhythm: regular rhythm Heart sounds: S1 normal heart sound present, S2 normal heart sound present and no murmurs GI: Inspection: Yes normal to inspection Palpation (GI): Soft to palpation, nontender and no guarding Auscultation: normal bowel sounds : General: Yes no CVA tenderness Back/Spine/Pelvis: Back: no CVA tenderness Skin: General skin exam: no rashes or lesions noted Neuro: General: oriented to person and oriented to place Cranial nerves: Yes CN's II-XII intact bilaterally and Yes Equal, round and reactive pupils present Cognition (Neuro): normal cognition Motor exam (neuro): 5/5 motor strength present throughout Extrem: General: Yes normal to inspection Psych: Appearance: grossly normal Speech and movement: Normal speech and movement present Affect: normal affect Attitude: cooperative Thought process: Normal thought process present Thought content: Normal thought content present Course Course Course Narrative: 76-year-old female who presents emergency department for evaluation of shortness of breath which came on gradually this morning, was mild and then resolved at 13:00 hours. Patient had no other associated symptoms. She had no chest pain, dyspnea on exertion, fever, chills, cough. Vital signs revealed a blood pressure of 152/83, otherwise were unremarkable with an O2 saturation of 100% on room air. Patient's exam was unremarkable otherwise. Patient's laboratory evaluation revealed a normal CBC and CMP. Patient's high sensitive troponin I was detectable at 11.9 but not elevated. BNP was normal at 69. Chest x-ray was unremarkable. Twelve EKG did not reveal any acute findings but was changed from the previous EKG, however I do not think that the patient has had acute myocardial infarction to explain today's symptoms. At this time, I do not have a clear etiology for the patient's symptoms, they have resolved and her workup here is unremarkable. I did discuss this with her. The patient was discharged home. She was advised to follow-up with her PCP for re-evaluation and return if her symptoms got worse or she develops any new symptoms that were concerning to her. MDM - SOB/Dyspnea Medical Records Attestation: I reviewed the patient's medical records. Lab Data Attestation: I reviewed the patient's lab results. Result diagrams: 11/06/21 16:39 11/06/21 16:39 Labs: Lab Results 11/06/21 11/06/21 11/06/21 Range/Units 16:39 16:39 16:39 WBC 8.3 (4.8-10.8) X10*3/uL RBC 4.62 (4.20-5.50) X10*6/uL Hgb 14.1 (12.0-16.0) g/dl Hct 41.0 (37.0-47.0) % MCV 88.7 (80.0-98.0) fL MCH 30.5 (27.0-33.0) pg MCHC 34.4 (31.0-35.0) g/dl RDW 12.1 (11.0-16.0) % Plt Count 332 (160-400) X10*3/uL MPV 9.7 (9.4-12.3) fL Immature Gran % (Auto) 0.6 H (0.0-0.4) % Neut % (Auto) 61.3 (45-73) % Lymph % (Auto) 25.5 (20-40) % [place] % (Auto) 11.1 H (2-11) % Eos % (Auto) 1.0 (0-4) % Baso % (Auto) 0.5 (0-2) % Lymph # (Auto) 2.1 (1.2-4.9) X10*3/uL [place] # (Auto) 0.9 (0.1-1.2) X10*3/uL Eos # (Auto) 0.1 (0.0-0.4) X10*3/uL Baso # (Auto) 0.0 (0.0-0.2) X10*3/uL Abs Immat Gran (auto) 0.05 H (0.00-0.03) X10*3/uL Absolute Neuts (auto) 5.1 (2.0-8.3) x10*3/uL Absolute Nucleated RBC 0.000 (0.0-0.012) X10*3/uL Nucleated RBC % (auto) 0.0 (0.0-0.2) /100WBC Sodium 137 (135-145) mmol/L Potassium 4.2 (3.3-5.1) mmol/L Chloride 99 (96-108) mmol/L Carbon Dioxide 22 (22-29) mmol/L Anion Gap 20 (12-20) BUN 19 H (9-16) mg/dL Creatinine 0.81 (0.5-1.4) mg/dL Estim Creat Clear Calc 51.2 Estimated GFR > 60 Random Glucose 120 H (60-115) mg/dL Calcium 10.5 H D (8.4-10.2) mg/dL Troponin I High Sens (<3.5-17.0) ng/L B-Natriuretic Peptide 69 (<100) pg/mL 11/06/21 Range/Units 16:39 WBC (4.8-10.8) X10*3/uL RBC (4.20-5.50) X10*6/uL Hgb (12.0-16.0) g/dl Hct (37.0-47.0) % MCV (80.0-98.0) fL MCH (27.0-33.0) pg MCHC (31.0-35.0) g/dl RDW (11.0-16.0) % Plt Count (160-400) X10*3/uL MPV (9.4-12.3) fL Immature Gran % (Auto) (0.0-0.4) % Neut % (Auto) (45-73) % Lymph % (Auto) (20-40) % [place] % (Auto) (2-11) % Eos % (Auto) (0-4) % Baso % (Auto) (0-2) % Lymph # (Auto) (1.2-4.9) X10*3/uL [place] # (Auto) (0.1-1.2) X10*3/uL Eos # (Auto) (0.0-0.4) X10*3/uL Baso # (Auto) (0.0-0.2) X10*3/uL Abs Immat Gran (auto) (0.00-0.03) X10*3/uL Absolute Neuts (auto) (2.0-8.3) x10*3/uL Absolute Nucleated RBC (0.0-0.012) X10*3/uL Nucleated RBC % (auto) (0.0-0.2) /100WBC Sodium (135-145) mmol/L Potassium (3.3-5.1) mmol/L Chloride (96-108) mmol/L Carbon Dioxide (22-29) mmol/L Anion Gap (12-20) BUN (9-16) mg/dL Creatinine (0.5-1.4) mg/dL Estim Creat Clear Calc Estimated GFR Random Glucose (60-115) mg/dL Calcium (8.4-10.2) mg/dL Troponin I High Sens 11.9 D (<3.5-17.0) ng/L B-Natriuretic Peptide (<100) pg/mL ECG Data Attestation: I personally reviewed and interpreted this ECG as follows: Interpretation: 1631: Sinus rhythm with a rate of 78, occasional PVC, normal FL, QRS duration and QTC interval, no ST segment elevation, no ST segment depression, Q-wave in lead 3 and leads V1 through V3, no significant T-wave abnormalities. Compared to EKG dated 08/26/2021, on the previous EKG the patient had LVH with large voltage in 1, 2, 3, aVL and AVF which is no longer present on today's EKG. The Q-waves V1 through V3 are new. PVCs are old. Discharge Plan Discharge Clinical Impression: Acute dyspnea Patient Disposition: Home, Self-Care Instructions: Dyspnea (ED) Additional Instructions: Your blood work was unremarkable. Your chest x-ray was normal At this time, I do not have a clear cause for your shortness of breath/difficult y breathing. I believe that it is okay to send you home. However, if your symptoms return or get worse or if you developed fever, chills, chest pain, cough shortness of breath with exertion or any new symptoms that are concerning to you should return to the emergency department for evaluation. Follow-up with your doctor in 2 days. Prescriptions: No Action furosemide 40 mg Tablet 40 mg PO DAILY 30 Days Qty: 30 0RF Protocol: Hold for SBP< HOLD for SBP < : 90 carvedilol 6.25 mg Tablet 6.25 mg PO BID 30 Days Qty: 60 0RF Protocol: Hold for SBP/HR < HOLD for SBP < : 90 HOLD for HR < : 60 donepezil 5 mg Tablet 5 mg PO BEDTIME 30 Days Qty: 30 0RF olanzapine 5 mg Tablet 5 mg PO BEDTIME 30 Days Qty: 30 0RF clopidogrel 75 mg Tablet 75 mg PO DAILY 30 Days Qty: 30 0RF amlodipine 5 mg Tablet 5 mg PO DAILY 30 Days Qty: 30 0RF Protocol: Hold for SBP< HOLD for SBP < : 90 magnesium oxide 400 mg (241.3 mg magnesium) Tablet 400 mg PO DAILY 30 Days Qty: 30 0RF lisinopril 10 mg Tablet 10 mg PO BID 30 Days Qty: 60 0RF Protocol: Hold for SBP< HOLD for SBP < : 90 cholecalciferol (vitamin D3) 25 mcg (1,000 unit) Tablet 25 mcg PO DAILY 30 Days Qty: 30 0RF multivitamin [Daily-Brielle] Tablet 1 tab PO DAILY 30 Days Qty: 30 0RF pantoprazole 40 mg tablet,delayed release (DR/EC) 1 tab PO DAILY 30 Days Qty: 30 0RF
== END 2021-11-06 18:22 | disposition home or self-care (01) ==
PROVIDERS: Emergency Provider Emergency Medicine Emergency Medical Services; PCP Internal Medicine
DX: R06.00 Dyspnea, unspecified (principal); R06.02 Shortness of breath; I10 Essential (primary) hypertension
CPT/HCPCS: 36415; 71046; 80048; 83880; 84484; 85025; 93005; 99283

== ENCOUNTER 2021-11-07 18:00 | Inpatient (IN) | payer MEDICARE, SELFPAY ==
[2021-11-07 18:05] VITALS: BP 125/66; PULSE 73; RESP 16; TEMP 36.1; O2SAT 99; BMI 25.0
--- NOTE | 2021-11-07 18:23 | PC.NURSE ---
PH pod contacted regarding patient.
--- NOTE | 2021-11-07 18:54 | ED.GENADULT ---
HPI - General Adult General Chief complaint: Psychiatric Symptoms Stated complaint: Crisis Time Seen by Provider: 11/07/21 18:53 Source: patient and family (son) Mode of arrival: ambulatory Limitations: no limitations History of Present Illness HPI narrative: Patient is a 76 year old female presenting to the emergency department today with increased delusions and refusing to take her medications. Patient's son states that the patient threatened to kill herself at home and has been acting way more paranoid, knocking on everyone's doors. Patient denies any dizziness, lightheadedness, abdominal pain, nausea, vomiting, fever, chills, blurry vision, double vision, loss of vision, chest pain, difficulty breathing, shortness of breath, back pain, night sweats, pain with urination, increased urinary frequency, increased urinary urgency, blood in her urine or stool, syncope or a near syncopal episode, recent trauma or falls, bowel incontinence, bladder incontinence, bowel retention, bladder retention, or any other complaints at this time. Severity: moderate Severity scale (1-10): 3 Relieving factors: none Exacerbating factors: none Associated symptoms: denies other symptoms Treatments prior to arrival: none Related Data Home Medications Medication Instructions Recorded Confirmed amlodipine 5 mg tablet 1 tab PO DAILY 11/07/21 11/07/21 aripiprazole 2 mg tablet 1 tab PO BEDTIME 11/07/21 11/07/21 carvedilol 6.25 mg tablet 1 tab PO BID 11/07/21 11/07/21 clopidogrel 75 mg tablet 1 tab PO DAILY 11/07/21 11/07/21 donepezil 5 mg tablet (Aricept) 1 tab PO BEDTIME 11/07/21 11/07/21 furosemide 40 mg tablet 1 tab PO DAILY 11/07/21 11/07/21 lisinopril 10 mg tablet 1 tab PO BID 11/07/21 11/07/21 pantoprazole 40 mg tablet,delayed 1 tab PO DAILY 11/07/21 11/07/21 release potassium chloride 10 mEq 1 cap PO DAILY 11/07/21 11/07/21 capsule,extended release Previous Rx's Medication Instructions Recorded cholecalciferol (vitamin D3) 25 25 mcg PO DAILY 30 days #30 tabs 09/17/21 mcg (1,000 unit) tablet magnesium oxide 400 mg (241.3 mg 400 mg PO DAILY 30 days #30 tabs 09/17/21 magnesium) tablet multivitamin (Daily-Brielle tablet) 1 tab PO DAILY 30 days #30 tabs 09/17/21 Allergies Allergy/AdvReac Type Severity Reaction Status Date / Time haloperidol [From Haldol] AdvReac Numbness Verified 11/07/21 18:05 Review of Systems Constitutional: Constitutional: Reports no additional constitutional complaints, Denies chills, Denies fever(s) and Denies night sweats Eyes: Eyes: Reports no additional eye complaints, Denies blurry vision, Denies change in vision, Denies diplopia, Denies eye discharge, Denies loss of vision and Denies eye pain ENT: Denies dizziness Cardiovascular: Cardiovascular: Reports no additional cardiovascular complaints, Denies chest pain, Denies lightheadedness, Denies Loss of Consciousness and Denies dyspnea Respiratory: Respiratory: Reports no additional respiratory complaints and Denies dyspnea Gastrointestinal: Gastrointestinal: Reports no additional gastrointestinal complaints, Denies abdominal pain, Denies melena, Denies hematochezia, Denies change in bowel habits and Denies change in stool character Genitourinary: Genitourinary: Denies hematuria, Denies urinary frequency, Denies dysuria, Denies urinary incontinence, Denies urinary hesitancy and Denies urinary urgency Musculoskeletal: Musculoskeletal: Reports no additional musculoskeletal complaints, Denies numbness and Denies tingling Neurologic: Denies dizziness, Denies loss of vision, Denies numbness and Denies tingling Psychiatric: Psychiatric: Reports paranoia and Reports suicidal ideation Endocrine: Endocrine: Reports no additional endocrine complaints Hematologic/Lymphatic: Hematologic/Lymphatic: Reports no additional hematologic/lymphatic complaints Allergic/Immunologic: Allergic/Immunologic: Reports no additional allergic/immunologic complaints [facility] Past Medical History Attestation statement: The following information was validated with the patient. Source: old records reviewed Medical History Coronary artery disease Essential hypertension Ischemic cardiomyopathy Schizoaffective disorder, bipolar type Surgical History S/P CABG (coronary artery bypass graft) Social History Social History Household Members: None Housing: Apartment Do you presently have visiting nurse or other home services: No Patient Tobacco Use Status: Never used Tobacco e-Cigarette/Vaping Use: Never Used Advance Directives: Yes Advance Directives on File: Yes Advance Directives Date on File: 03/06/21 Healthcare Proxy: Yes Guardian: No service: No Sexual orientation: Straight/Heterosexual Physical Exam ED Vital Signs: Vital Signs - 24 hr 11/07/21 18:05 11/07/21 21:29 11/08/21 06:19 Temperature 97.0 F 98.2 F Pulse Rate 73 70 67 Respiratory Rate 16 16 16 Blood Pressure 125/66 129/68 135/71 Pulse Oximetry 99 97 99 Oxygen Delivery Method Room Air Room Air Room Air BMI result Body Mass Index 25.0 Const General: cooperative, no acute distress, alert and awake Nutritional Appearance: well nourished Orientation/consciousness: patient oriented x3 Limitations: no limitations HENMT Head: Yes normal to inspection and Yes atraumatic Ears: hearing grossly normal bilaterally and external ears normal General nose exam: Normal external nose present, no nasal discharge noted and no epistaxis Face and sinus: Yes normal facial exam, No abrasion and No laceration Mouth: Normal oral and palatal mucosa present, no drooling and no muffled voice Eyes General: appearance normal, both eyes and all related structures Periorbital: periorbital findings normal Eyelids: Yes eyelids normal Conjunctivae: conjunctivae normal Pupils: Equal, round and reactive pupils present EOM: EOMs intact bilaterally Neck Neck: Yes normal visual inspection, Yes full ROM and Yes no lymphadenopathy Chest Chest palpation & inspection: normal inspection of the chest Resp Effort & Inspection: normal respiratory effort and able to speak in complete sentences Auscultation: clear to auscultation bilaterally Cardio Rate: regular rate Rhythm: regular rhythm GI Inspection: Yes normal to inspection Neuro General: patient oriented x3 and moves all extremities Cranial nerves: Yes Equal, round and reactive pupils present Cognition (Neuro): normal cognition Motor exam (neuro): 5/5 motor strength present throughout Sensory Exam: Normal double simultaneous stimulation for sensation Coordination: [id number] test normal Extrem General: Yes normal to inspection, Yes full ROM and Yes capillary refill normal Psych Appearance: grossly normal Mental Status: mental status grossly normal Affect: normal affect Attitude: cooperative Thought process: Illogical thought process present Thought content: Suicidality present Insight: Limited insight present (Psych) Medical Decision Making MDM Narrative Medical decision making narrative: Patient is a 76 year old female presenting to the emergency department today with increased paranoia and refusing to take her medications. Patient's physical exam showed a paranoid individual who endorsed suicidal ideation. Patient's blood work was unremarkable. Patient's urine is pending. I explained my physical exam findings as well as all test results to the patient and the patient's son. I answered all questions asked by the patient and the patient's son. Patient was evaluated by the CARE team who recommended in patient treatment for the patient. Medical Records Medical records reviewed: Yes I reviewed the patient's medical records. Lab Data Lab results reviewed: Yes I reviewed the patient's lab results. Result diagrams: 11/07/21 19:35 11/07/21 19:35 Labs: Lab Results 11/07/21 11/07/21 11/07/21 Range/Units 19:22 19:22 19:35 WBC 8.6 (4.8-10.8) X10*3/uL RBC 4.41 (4.20-5.50) X10*6/uL Hgb 13.6 (12.0-16.0) g/dl Hct 39.4 (37.0-47.0) % MCV 89.3 (80.0-98.0) fL MCH 30.8 (27.0-33.0) pg MCHC 34.5 (31.0-35.0) g/dl RDW 12.1 (11.0-16.0) % Plt Count 339 (160-400) X10*3/uL MPV 9.7 (9.4-12.3) fL Immature Gran % (Auto) 0.6 H (0.0-0.4) % Neut % (Auto) 64.1 (45-73) % Lymph % (Auto) 25.7 (20-40) % [place] % (Auto) 8.2 (2-11) % Eos % (Auto) 0.8 (0-4) % Baso % (Auto) 0.6 (0-2) % Lymph # (Auto) 2.2 (1.2-4.9) X10*3/uL [place] # (Auto) 0.7 (0.1-1.2) X10*3/uL Eos # (Auto) 0.1 (0.0-0.4) X10*3/uL Baso # (Auto) 0.1 (0.0-0.2) X10*3/uL Abs Immat Gran (auto) 0.05 H (0.00-0.03) X10*3/uL Absolute Neuts (auto) 5.5 (2.0-8.3) x10*3/uL Absolute Nucleated RBC 0.000 (0.0-0.012) X10*3/uL Nucleated RBC % (auto) 0.0 (0.0-0.2) /100WBC Sodium (135-145) mmol/L Potassium (3.3-5.1) mmol/L Chloride (96-108) mmol/L Carbon Dioxide (22-29) mmol/L Anion Gap (12-20) BUN (9-16) mg/dL Creatinine (0.5-1.4) mg/dL Estim Creat Clear Calc Estimated GFR Random Glucose (60-115) mg/dL Calcium (8.4-10.2) mg/dL Total Bilirubin (0.0-1.0) mg/dL AST (5-31) U/L ALT (0-31) U/L Alkaline Phosphatase (39-117) U/L Total Protein (6.5-8.0) g/dL Albumin (3.5-5.0) g/dL Salicylates (15-30) mg/dL Urine Opiates Screen Not Detected (Not Detect) Urine Fentanyl Screen POSITIVE H (Not Detect) Acetaminophen (<30) mcg/mL Ur Barbiturates Screen Not Detected (Not Detect) Ur Phencyclidine Scrn Not Detected (Not Detect) Ur Amphetamines Screen Not Detected (Not Detect) U Benzodiazepines Scrn Not Detected (Not Detect) Urine Cocaine Screen Not Detected (Not Detect) U Marijuana (THC) Screen Not Detected (Not Detect) Ethyl Alcohol mg/dL COVID-19 (SIN) Negative (Negative) COVID-19 Clin Com See Note 11/07/21 Range/Units 19:35 WBC (4.8-10.8) X10*3/uL RBC (4.20-5.50) X10*6/uL Hgb (12.0-16.0) g/dl Hct (37.0-47.0) % MCV (80.0-98.0) fL MCH (27.0-33.0) pg MCHC (31.0-35.0) g/dl RDW (11.0-16.0) % Plt Count (160-400) X10*3/uL MPV (9.4-12.3) fL Immature Gran % (Auto) (0.0-0.4) % Neut % (Auto) (45-73) % Lymph % (Auto) (20-40) % [place] % (Auto) (2-11) % Eos % (Auto) (0-4) % Baso % (Auto) (0-2) % Lymph # (Auto) (1.2-4.9) X10*3/uL [place] # (Auto) (0.1-1.2) X10*3/uL Eos # (Auto) (0.0-0.4) X10*3/uL Baso # (Auto) (0.0-0.2) X10*3/uL Abs Immat Gran (auto) (0.00-0.03) X10*3/uL Absolute Neuts (auto) (2.0-8.3) x10*3/uL Absolute Nucleated RBC (0.0-0.012) X10*3/uL Nucleated RBC % (auto) (0.0-0.2) /100WBC Sodium 136 (135-145) mmol/L Potassium 3.8 (3.3-5.1) mmol/L Chloride 101 (96-108) mmol/L Carbon Dioxide 19 L (22-29) mmol/L Anion Gap 20 (12-20) BUN 23 H (9-16) mg/dL Creatinine 1.03 (0.5-1.4) mg/dL Estim Creat Clear Calc 40.2 Estimated GFR 52 Random Glucose 166 H (60-115) mg/dL Calcium 10.2 (8.4-10.2) mg/dL Total Bilirubin 0.6 (0.0-1.0) mg/dL AST 21 (5-31) U/L ALT 18 (0-31) U/L Alkaline Phosphatase 90 (39-117) U/L Total Protein 7.4 (6.5-8.0) g/dL Albumin 4.5 (3.5-5.0) g/dL Salicylates < 5.0 L (15-30) mg/dL Urine Opiates Screen (Not Detect) Urine Fentanyl Screen (Not Detect) Acetaminophen < 1 (<30) mcg/mL Ur Barbiturates Screen (Not Detect) Ur Phencyclidine Scrn (Not Detect) Ur Amphetamines Screen (Not Detect) U Benzodiazepines Scrn (Not Detect) Urine Cocaine Screen (Not Detect) U Marijuana (THC) Screen (Not Detect) Ethyl Alcohol < 10 mg/dL COVID-19 (SIN) (Negative) COVID-19 Clin Com Discharge Plan Discharge Clinical Impression: Paranoid Patient Disposition: Still a Patient Prescriptions: No Action magnesium oxide 400 mg (241.3 mg magnesium) Tablet 400 mg PO DAILY 30 Days Qty: 30 0RF cholecalciferol (vitamin D3) 25 mcg (1,000 unit) Tablet 25 mcg PO DAILY 30 Days Qty: 30 0RF multivitamin [Daily-Brielle] Tablet 1 tab PO DAILY 30 Days Qty: 30 0RF furosemide 40 mg tablet 1 tab PO DAILY potassium chloride 10 mEq capsule, extended release 1 cap PO DAILY donepezil [Aricept] 5 mg tablet 1 tab PO BEDTIME clopidogrel 75 mg tablet 1 tab PO DAILY amlodipine 5 mg tablet 1 tab PO DAILY pantoprazole 40 mg tablet,delayed release (DR/EC) 1 tab PO DAILY lisinopril 10 mg tablet 1 tab PO BID aripiprazole 2 mg tablet 1 tab PO BEDTIME carvedilol 6.25 mg tablet 1 tab PO BID Print Language: Ghanaian
[2021-11-07 19:41] LABS: MANUAL DIFF FLAG NO
[2021-11-07 19:47] LABS: Amphetamine Screen Urine Not Detected (Not Detect); Barbiturates, Urine Not Detected (Not Detect); Benzodiazepines Screen Urine Not Detected (Not Detect); COVID-19 Test Negative (Negative); Cannabinoid Screen Urine Not Detected (Not Detect); Cocaine Screen Urine Not Detected (Not Detect); Fentanyl, urine POSITIVE (Not Detect); IDNOW Serial# 55D5AD1C; Opiate Screen Urine Not Detected (Not Detect); Phencyclidine Screen Urine Not Detected (Not Detect)
[2021-11-07 19:49] LABS: Basophils Absolute Auto 0.1 X10*3/uL (0.0-0.2); Basophils Percent Auto 0.6 % (0-2); Eosinophils Absolute Auto 0.1 X10*3/uL (0.0-0.4); Eosinophils Percent Auto 0.8 % (0-4); Hematocrit 39.4 % (37.0-47.0); Hemoglobin 13.6 g/dl (12.0-16.0); Imm Gran Abs Auto 0.05 X10*3/uL (0.00-0.03); Imm Gran Pct Auto 0.6 % (0.0-0.4); Lymphocytes Absolute Auto 2.2 X10*3/uL (1.2-4.9); Lymphocytes Percent Auto 25.7 % (20-40); Mean Corpuscular HGB Conc 34.5 g/dl (31.0-35.0); Mean Corpuscular Hemoglobin 30.8 pg (27.0-33.0); Mean Corpuscular Volume 89.3 fL (80.0-98.0); Mean Platelet Volume 9.7 fL (9.4-12.3); Monocytes Absolute Auto 0.7 X10*3/uL (0.1-1.2); Monocytes Percent Auto 8.2 % (2-11); Neutrophils Absolute Auto 5.5 x10*3/uL (2.0-8.3); Neutrophils Percent Auto 64.1 % (45-73); Platelet Count 339 X10*3/uL (160-400); Red Blood Count 4.41 X10*6/uL (4.20-5.50); Red Cell Distribution Width 12.1 % (11.0-16.0); White Blood Count 8.6 X10*3/uL (4.8-10.8)
[2021-11-07 20:08] LABS: Alanine Aminotransferase 18 U/L (0-31); Albumin Level 4.5 g/dL (3.5-5.0); Alkaline Phosphatase 90 U/L (39-117); Anion Gap 20 (12-20); Aspartate Amino Transferase 21 U/L (5-31); Bilirubin Total 0.6 mg/dL (0.0-1.0); Blood Urea Nitrogen 23 mg/dL (9-16); Calcium 10.2 mg/dL (8.4-10.2); Carbon Dioxide 19 mmol/L (22-29); Chloride 101 mmol/L (96-108); Creatinine Clr Calc Pharmacy 40.2; Estimated Glomerular Filt Rate 52; Ethanol < 10 mg/dL; Glucose Random 166 mg/dL (60-115); Potassium 3.8 mmol/L (3.3-5.1); Sodium 136 mmol/L (135-145); Total Protein 7.4 g/dL (6.5-8.0)
[2021-11-07 20:19] LABS: Acetaminophen LAB < 1 mcg/mL (<30); Salicylate < 5.0 mg/dL (15-30)
[2021-11-07] MEDS: lisinopriL 10 MG TABLET PO (21:22)
[2021-11-07] MEDS: carvediloL 6.25 MG TABLET PO (21:22)
[2021-11-07] MEDS: Donepezil HCl 5 MG TABLET PO (21:22)
[2021-11-07 21:29] VITALS: BP 129/68; PULSE 70; RESP 16; O2SAT 97
--- NOTE | 2021-11-08 05:02 | PC.NURSE ---
Patient slept through the night, no distress observed/reported, disposition per care team is section 12 inpatient bed search, patient is medication compliant selectively, refused her HS Trena stated I don't take that medication , behavior non concerning but appears at time disorganized, VSS, will continue to monitor.
[2021-11-08] MEDS: Omeprazole 20 MG CAPSULE.DR PO (06:17)
[2021-11-08 06:19] VITALS: BP 135/71; PULSE 67; RESP 16; TEMP 36.8; O2SAT 99
--- NOTE | 2021-11-08 08:59 | PC.NURSE ---
Patient refusing additional blood pressure from this RN prior to giving BP medications. Last pressure was 135/[address] Parker instructed to give medications
[2021-11-08] MEDS: lisinopriL 10 MG TABLET PO ×2 (09:02→19:56)
[2021-11-08] MEDS: Clopidogrel Bisulfate 75 MG TABLET PO (09:02)
[2021-11-08] MEDS: Magnesium Oxide 400 MG TABLET PO (09:02)
[2021-11-08] MEDS: Furosemide 40 MG TABLET PO (09:02)
[2021-11-08] MEDS: amLODIPine Besylate 5 MG TABLET PO (09:03)
[2021-11-08] MEDS: carvediloL 6.25 MG TABLET PO ×2 (09:03→20:01)
[2021-11-08] MEDS: Cholecalciferol (Vitamin D3) 25 MCG TABLET PO (09:03)
[2021-11-08] MEDS: Multivitamin TABLET 1 TAB PO (09:03)
[2021-11-08 19:46] VITALS: BP 133/78; PULSE 80; RESP 17; TEMP 36.9; O2SAT 98
[2021-11-08] MEDS: Donepezil HCl 5 MG TABLET PO (19:56)
[2021-11-08] MEDS: ARIPiprazole 2 MG TABLET PO (20:01)
--- NOTE | 2021-11-09 05:11 | PC.NURSE ---
Patient slept through the night, no distress observed/reported, medication compliant, patient even took her HS Abilify which she has been refusing, VSS, disposition per Care Team section 12 inpatient bed search, no update on bed search, behavior non concerning, appetite adequate, elimination intact, will continue to monitor.
[2021-11-09] MEDS: Omeprazole 20 MG CAPSULE.DR PO (05:55)
[2021-11-09 06:06] VITALS: BP 141/79; PULSE 76; TEMP 36; O2SAT 96
[2021-11-09 06:14] LABS: Appearance Urine Clear; Color Urine Yellow; Glucose Urine UA Negative (Negative); Leukocyte Esterase Urine Negative (Negative); Nitrite Urine Negative (Negative); PH 5.5 (5.0-9.0); Specific Gravity - Urine >= 1.030 (1.005-1.025); Urine Blood Negative (Negative); Urine Ketones Negative (Negative); Urine Protein Negative (Neg-Trace)
[2021-11-09] MEDS: amLODIPine Besylate 5 MG TABLET PO (08:40)
[2021-11-09] MEDS: Furosemide 40 MG TABLET PO (08:40)
[2021-11-09] MEDS: Magnesium Oxide 400 MG TABLET PO (08:40)
[2021-11-09] MEDS: carvediloL 6.25 MG TABLET PO ×2 (08:40→19:43)
[2021-11-09] MEDS: Cholecalciferol (Vitamin D3) 25 MCG TABLET PO (08:40)
[2021-11-09] MEDS: lisinopriL 10 MG TABLET PO ×2 (08:40→19:44)
[2021-11-09] MEDS: Clopidogrel Bisulfate 75 MG TABLET PO (08:41)
[2021-11-09] MEDS: Multivitamin TABLET 1 TAB PO (08:41)
--- NOTE | 2021-11-09 14:48 | MHC.CARE ---
Pt requested to speak with a counselor as she had not spoken to anyone yet today.? Pt did meet with CARE Team today in the morning. Pt was tearful and noticeably upset expressing concerns that she had gotten her son in trouble by coming to this facility.? Pt?s son is a leading firefighter with [employer].? She could not effectively express why she believes he is in trouble, only that she mentioned he had told her to come here.? Pt appeared disorganized and paranoid, ruminative and perseverative regarding her son being in trouble, taking her medications, and her belief that ?People think I am on drugs?.? Pt could not express why she she believes people think she is on drugs or why her son would be in trouble.? Her thought process did not appear linear, she would often interject another topic in the middle of a topic she was discussing and then would muckleshoot back, sometimes mixing multiple topics together. Pt was eventually calmed but still appeared confused.
--- NOTE | 2021-11-09 16:02 | PC.NURSE ---
pt pleasantly confused throughout shift. took all her am meds without incidence noted.
[2021-11-09 16:04] VITALS: BP 137/70; PULSE 78; RESP 18; TEMP 36.4; O2SAT 98
[2021-11-09 19:37] VITALS: BP 133/73; PULSE 75; RESP 15; O2SAT 97
[2021-11-09] MEDS: Donepezil HCl 5 MG TABLET PO (19:44)
--- NOTE | 2021-11-09 20:31 | PC.NURSE ---
Patient calm and quiet, highly independent, alert and oriented x 4, refused to take her HS Abilify 2 mg by reporting medication makes her more restless, patient stated, she should take Olanzapine, VSS, no distress observed/reported, disposition section 12 inpatient bed search, will continue to monitor.
[2021-11-10 00:27] VITALS: BP 143/78; PULSE 77; RESP 16; TEMP 36; O2SAT 95
[2021-11-10] MEDS: Omeprazole 20 MG CAPSULE.DR PO (06:00)
--- NOTE | 2021-11-10 07:47 | PC.NURSE ---
patient appears to remian at rest presently respirations are even and unlabored patient appears in no distress
[2021-11-10] MEDS: amLODIPine Besylate 5 MG TABLET PO (08:52)
[2021-11-10] MEDS: Magnesium Oxide 400 MG TABLET PO (08:52)
[2021-11-10] MEDS: Furosemide 40 MG TABLET PO (08:52)
[2021-11-10] MEDS: carvediloL 6.25 MG TABLET PO ×2 (08:52→20:48)
[2021-11-10] MEDS: Cholecalciferol (Vitamin D3) 25 MCG TABLET PO (08:52)
[2021-11-10] MEDS: Multivitamin TABLET 1 TAB PO (08:52)
[2021-11-10] MEDS: Clopidogrel Bisulfate 75 MG TABLET PO (08:53)
[2021-11-10] MEDS: lisinopriL 10 MG TABLET PO ×2 (08:53→20:48)
[2021-11-10 10:49] VITALS: BP 129/66; PULSE 73; RESP 16; TEMP 36.7; O2SAT 98
[2021-11-10 16:50] VITALS: BP 132/75; PULSE 68; RESP 20; TEMP 37.3; O2SAT 97
[2021-11-10 20:42] VITALS: BP 139/73; PULSE 79; RESP 18; O2SAT 98
[2021-11-10] MEDS: Donepezil HCl 5 MG TABLET PO (20:48)
--- NOTE | 2021-11-11 | ECG_ITS ---
Test Reason : medical clearance Blood Pressure : / mmHG Vent. Rate : 073 BPM Atrial Rate : 073 BPM P-R Int : 150 ms QRS Dur : 086 ms QT Int : 410 ms P-R-T Axes : 068 046 106 degrees QTc Int : 451 ms Normal sinus rhythm Possible Left atrial enlargement Cannot rule out Anterior infarct , age undetermined T wave inversion now evident in Lateral leads Abnormal ECG When compared with ECG of 06-NOV-2021 16:31, Premature ventricular complexes are no longer Present T wave inversion now evident in Lateral leads Referred By: Wiliam Mcdermott Electronically Signed By:MANA IVERSON
--- NOTE | 2021-11-11 04:26 | PC.NURSE ---
Patient slept through the night, refused her HS Trena, BRITNI, no distress observed/reported, disposition section 12 inpatient bed search, behavior non concerning, will continue to monitor.
[2021-11-11 06:32] LABS: Glucose, Whole Blood 89 mg/dL (60-115)
[2021-11-11] MEDS: Omeprazole 20 MG CAPSULE.DR PO (06:46)
[2021-11-11 06:48] VITALS: BP 131/80; PULSE 80; TEMP 36.6; O2SAT 98
--- NOTE | 2021-11-11 06:48 | PC.NURSE ---
Patient slept through the night, no distress observed/reported however at 0630 patient was difficult to arousal, vitals were stable but patient was hyperventilating, Follow up RR was 20, provider came to saw the patient ordered repeat lab ordered/drawn/pending results, patient used bathroom and back, took her 6 am medication, disposition is section 12 inpatient bed search, will continue to monitor.
[2021-11-11 06:58] VITALS: RESP 20
[2021-11-11 07:01] LABS: MANUAL DIFF FLAG NO
[2021-11-11 07:07] LABS: Basophils Absolute Auto 0.1 X10*3/uL (0.0-0.2); Basophils Percent Auto 0.7 % (0-2); Eosinophils Absolute Auto 0.1 X10*3/uL (0.0-0.4); Eosinophils Percent Auto 1.5 % (0-4); Hemoglobin 13.7 g/dl (12.0-16.0); Imm Gran Abs Auto 0.05 X10*3/uL (0.00-0.03); Imm Gran Pct Auto 0.7 % (0.0-0.4); Lymphocytes Absolute Auto 2.2 X10*3/uL (1.2-4.9); Lymphocytes Percent Auto 29.6 % (20-40); Mean Corpuscular HGB Conc 34.3 g/dl (31.0-35.0); Mean Corpuscular Hemoglobin 30.5 pg (27.0-33.0); Mean Corpuscular Volume 89.1 fL (80.0-98.0); Mean Platelet Volume 9.5 fL (9.4-12.3); Monocytes Absolute Auto 0.8 X10*3/uL (0.1-1.2); Neutrophils Absolute Auto 4.2 x10*3/uL (2.0-8.3); Neutrophils Percent Auto 56.5 % (45-73); Platelet Count 309 X10*3/uL (160-400); Red Blood Count 4.49 X10*6/uL (4.20-5.50); Red Cell Distribution Width 11.9 % (11.0-16.0); White Blood Count 7.4 X10*3/uL (4.8-10.8)
[2021-11-11 07:16] LABS: COVID-19 Test Negative (Negative)
[2021-11-11 07:24] LABS: B Type Natriuretic Peptide 59 pg/mL (<100)
--- NOTE | 2021-11-11 07:24 | PC.NURSE ---
patient appears to remain at rest at present respirations are even and unlabored patient appears in no distress.
[2021-11-11 07:36] LABS: Alanine Aminotransferase 16 U/L (0-31); Albumin Level 4.1 g/dL (3.5-5.0); Alkaline Phosphatase 85 U/L (39-117); Anion Gap 18 (12-20); Aspartate Amino Transferase 17 U/L (5-31); Bilirubin Total 0.5 mg/dL (0.0-1.0); Blood Urea Nitrogen 17 mg/dL (9-16); Calcium 9.7 mg/dL (8.4-10.2); Carbon Dioxide 22 mmol/L (22-29); Chloride 99 mmol/L (96-108); Creatinine Clr Calc Pharmacy 56.8; Estimated Glomerular Filt Rate > 60; Glucose Random 97 mg/dL (60-115); Potassium 4.1 mmol/L (3.3-5.1); Sodium 135 mmol/L (135-145); Total Protein 7.1 g/dL (6.5-8.0)
[2021-11-11 07:50] VITALS: BP 153/76; PULSE 75; RESP 15; TEMP 36.8; O2SAT 98
[2021-11-11] MEDS: Magnesium Oxide 400 MG TABLET PO (08:41)
[2021-11-11] MEDS: lisinopriL 10 MG TABLET PO ×2 (08:42→20:57)
[2021-11-11] MEDS: amLODIPine Besylate 5 MG TABLET PO (08:42)
[2021-11-11] MEDS: Cholecalciferol (Vitamin D3) 25 MCG TABLET PO (08:42)
[2021-11-11] MEDS: carvediloL 6.25 MG TABLET PO ×2 (08:42→20:58)
[2021-11-11] MEDS: Multivitamin TABLET 1 TAB PO (08:42)
[2021-11-11] MEDS: Furosemide 40 MG TABLET PO (08:42)
[2021-11-11] MEDS: Clopidogrel Bisulfate 75 MG TABLET PO (08:42)
[2021-11-11 09:07] LABS: Appearance Urine Clear; Color Urine Yellow; Glucose Urine UA Negative (Negative); Leukocyte Esterase Urine Small (1+) (Negative); Nitrite Urine Negative (Negative); PH 7.5 (5.0-9.0); Specific Gravity - Urine 1.015 (1.005-1.025); Urine Blood Negative (Negative); Urine Ketones Negative (Negative); Urine Protein Negative (Neg-Trace)
[2021-11-11 09:35] LABS: Bacteria Urine None Seen (None Seen); Hyaline Casts Urine 0-2 /LPF (0-2); RBC Urine 0-2 /HPF (0-2); Squamous Epithelial Cell Urine 0-2 /HPF (0-2); UACC Culture Trigger YES; WBC Urine 0-5 /HPF (0-5)
--- NOTE | 2021-11-11 11:09 | PC.NURSE ---
client approached nurses station asking many questions regarding, she did seem suspicious as to its purpose.
[2021-11-11 15:21] VITALS: BP 141/66; PULSE 76; RESP 16; TEMP 36.8; O2SAT 96
[2021-11-11 16:14] VITALS: BMI 25.0
--- NOTE | 2021-11-11 16:16 | PC.ADMIT ---
This 76 y.o. female was referred by the [facility] Care Team for Dx of Schizoaffective disorder, bipolar type. Hx of prior admissions to [facility] at [facility]. Arrived on unit at 1510 and placed on 15 min safety checks. Precipitating factors to admission: presented to [facility] ED with increased delusions and refusing to take her meds. Son stated pt threatened to kill herself at home and has been acting paranoid-knocking on neighbor's doors. Pt denies SI and states she knocked on neighbor's door and he let her in. States she knocked on neighbor's door to to ask a few questions. Pt informed Care Team that she went to her neighbor's home and they called her son to tell him to take her to hospital for eval as she was saying crazy things. Pt was unsure of what she had said to neighbor when evaluated by Care Team. Oriented x3-person, place and time. Vague re: situation, stating she is here because she was not taking meds, not speaking of knocking on doors. States she stopped taking Olanzapine due to hand tremors and increased appetite. Hand tremors noted as pt was escorted in wheelchair to unit. No hand tremors noted during admission process. States she has not taken Abilify due to all of side effects listed on Abilify information material. Guarded/paranoid during admission process re: signing paperwork and responding to questions. Denies SI/HI, denies AH/VH. States she sometimes wakes to toilet during night, intake indicates poor sleep pattern. Adequate appetite per report of pt and intake, Admission orders received from Dr Dickinson. Pt signed conditional voluntary. Denies physical discomfort.
[2021-11-11 18:00] VITALS: BP 120/73; PULSE 75; RESP 18; TEMP 36.6; O2SAT 98
[2021-11-11] MEDS: Donepezil HCl 5 MG TABLET PO (20:57)
[2021-11-12] MEDS: Omeprazole 20 MG CAPSULE.DR PO (06:50)
[2021-11-12 07:30] VITALS: BP 154/72; PULSE 76; RESP 17; TEMP 35.6; O2SAT 98
[2021-11-12] MEDS: Multivitamin TABLET 1 TAB PO (08:08)
[2021-11-12] MEDS: Furosemide 40 MG TABLET PO (08:09)
[2021-11-12] MEDS: lisinopriL 10 MG TABLET PO ×2 (08:09→20:33)
[2021-11-12] MEDS: carvediloL 6.25 MG TABLET PO ×2 (08:09→20:34)
[2021-11-12] MEDS: amLODIPine Besylate 5 MG TABLET PO (08:09)
[2021-11-12] MEDS: Cholecalciferol (Vitamin D3) 25 MCG TABLET PO (08:09)
[2021-11-12] MEDS: Clopidogrel Bisulfate 75 MG TABLET PO (08:10)
[2021-11-12] MEDS: Magnesium Oxide 400 MG TABLET PO (08:10)
[2021-11-12 09:18] LABS: Estimated Average Glucose 114 mg/dL; Hemoglobin A1c % 5.6 %
[2021-11-12 09:20] LABS: Alanine Aminotransferase 16 U/L (0-31); Albumin Level 4.4 g/dL (3.5-5.0); Alkaline Phosphatase 91 U/L (39-117); Anion Gap 19 (12-20); Aspartate Amino Transferase 18 U/L (5-31); Bilirubin Total 0.4 mg/dL (0.0-1.0); Blood Urea Nitrogen 22 mg/dL (9-16); Carbon Dioxide 24 mmol/L (22-29); Chloride 100 mmol/L (96-108); Cholesterol 264 mg/dL; Creatinine Clr Calc Pharmacy 51.9; Estimated Glomerular Filt Rate > 60; Glucose Fasting 116 mg/dL (60-99); HDL Cholesterol 54 mg/dL; LDL Cholesterol Calculated 162 mg/dl; Potassium 4.3 mmol/L (3.3-5.1); Sodium 139 mmol/L (135-145); Total Protein 7.5 g/dL (6.5-8.0); Triglycerides 244 mg/dL
--- NOTE | 2021-11-12 11:14 | P.HPPS_ITS ---
HPI Date of Service: 11/12/21 Chief Complaint: Psychosis Sources of Information: patient interviewed, chart reviewed and crisis/core team assessment reviewed HPI Subjective Notes: Pathak Warning and Conditional Voluntary Narrative: The patient is a 76-year-old female, , living by herself, with good social support, very well known by this service since she had been admitted before for the same reason. The patient carries a diagnosis of schizophrenia and the last and that she was in this unit she was discharged on Zyprexa. Apparently her prescriber in the community changed to Abilify and she stop it due to a leg side effects. The patient progressively decompensated with paranoia and she knocked into her neighbor's door, she was brought into the house so the neighbor called her family due to psychotic disorganization. Crisis was called, she was assessed at bedside and apparently, according to crisis assessment, she disclosed suicidal ideation but later she adamantly denied it. On interview, the patient reports that she stopped her medications due to her alleged side effects and she adamantly denies suicidal ideation. We discussed risks, benefits, side-effects and alternatives and she agreed to restart anti psychotics. At the moment of the interview, the patient looks paranoid, with poor eye contact, internally preoccupied with minimal interaction. Past Psychiatric History: Admitted twice at this unit in the last year due to non-compliance, similar presentation. [facility] ED 3Xin past 2 months for somatic sx IPL[facility] at [facility], in 2009. [place] [facility] [place] [facility]. Previous SI attempt in 2009 Therapist Zena Maldonado, Psych provider ESTRELLA Shrestha at [facility], Medical Evaluation Reviewed: Hospitalist Nella Pending [facility] Medical History Coronary artery disease Essential hypertension Ischemic cardiomyopathy Schizoaffective disorder, bipolar type Surgical History S/P CABG (coronary artery bypass graft) Family History: Raised by parents, 1 brother, 1 sister. Siblings local. Mother : Alzheimers dementia. Father : Question of psychosis. Brother: Question of psychosis. Sister: Question of dementia. Social History: , lives by self in long-term apartment. Has 1 son, has grand children. Substance History: Denies Trauma History: Unknown. Diagnostics Vital Signs (24Hr): Vital Signs - 24 hr 11/11/21 15:21 11/11/21 18:00 11/12/21 07:30 Temperature 98.2 F 98 F 96.1 F L Pulse Rate 76 75 76 Respiratory Rate 16 18 17 Blood Pressure 141/66 H 120/73 154/72 H Pulse Oximetry 96 98 98 Oxygen Delivery Method Room Air Room Air Room Air BMI result Body Mass Index 25.0 Labs Results: 11/11/21 06:56 11/12/21 08:17 Labs: Laboratory Results - last 48 hr 11/11/21 11/11/21 11/11/21 06:28 06:54 06:55 WBC RBC Hgb Hct MCV MCH MCHC RDW Plt Count MPV Immature Gran % (Auto) Neut % (Auto) Lymph % (Auto) [place] % (Auto) Eos % (Auto) Baso % (Auto) Lymph # (Auto) [place] # (Auto) Eos # (Auto) Baso # (Auto) Abs Immat Gran (auto) Absolute Neuts (auto) Absolute Nucleated RBC Nucleated RBC % (auto) Sodium 135 Potassium 4.1 Chloride 99 Carbon Dioxide 22 Anion Gap 18 BUN 17 H Creatinine 0.73 Estim Creat Clear Calc 56.8 Estimated GFR > 60 POC Glucose 89 Random Glucose 97 Fasting Glucose Estimat Average Glucose Hemoglobin A1c % Calcium 9.7 Total Bilirubin 0.5 AST 17 ALT 16 Alkaline Phosphatase 85 B-Natriuretic Peptide Total Protein 7.1 Albumin 4.1 Triglycerides Cholesterol LDL Cholesterol, Calc HDL Cholesterol Urine Color Urine Appearance Urine pH Ur Specific [place] Urine Protein Urine Glucose (UA) Urine Ketones Urine Blood Urine Nitrite Ur Leukocyte Esterase Urine RBC Urine WBC Ur Squamous Epith Cells Urine Bacteria Hyaline Casts COVID-19 ([facility]) Negative COVID-19 Clin Com See Note 11/11/21 11/11/21 11/11/21 06:56 06:56 08:58 WBC 7.4 RBC 4.49 Hgb 13.7 Hct 40.0 MCV 89.1 MCH 30.5 MCHC 34.3 RDW 11.9 Plt Count 309 MPV 9.5 Immature Gran % (Auto) 0.7 H Neut % (Auto) 56.5 Lymph % (Auto) 29.6 [place] % (Auto) 11.0 Eos % (Auto) 1.5 Baso % (Auto) 0.7 Lymph # (Auto) 2.2 [place] # (Auto) 0.8 Eos # (Auto) 0.1 Baso # (Auto) 0.1 Abs Immat Gran (auto) 0.05 H Absolute Neuts (auto) 4.2 Absolute Nucleated RBC 0.000 Nucleated RBC % (auto) 0.0 Sodium Potassium Chloride Carbon Dioxide Anion Gap BUN Creatinine Estim Creat Clear Calc Estimated GFR POC Glucose Random Glucose Fasting Glucose Estimat Average Glucose Hemoglobin A1c % Calcium Total Bilirubin AST ALT Alkaline Phosphatase B-Natriuretic Peptide 59 Total Protein Albumin Triglycerides Cholesterol LDL Cholesterol, Calc HDL Cholesterol Urine Color Yellow Urine Appearance Clear Urine pH 7.5 Ur Specific [place] 1.015 Urine Protein Negative Urine Glucose (UA) Negative Urine Ketones Negative Urine Blood Negative Urine Nitrite Negative Ur Leukocyte Esterase Small (1+) H Urine RBC 0-2 Urine WBC 0-5 Ur Squamous Epith Cells 0-2 Urine Bacteria None Seen Hyaline Casts 0-2 COVID-19 ([facility]) COVID-19 Kindful 11/12/21 11/12/21 08:17 08:17 WBC RBC Hgb Hct MCV MCH MCHC RDW Plt Count MPV Immature Gran % (Auto) Neut % (Auto) Lymph % (Auto) [place] % (Auto) Eos % (Auto) Baso % (Auto) Lymph # (Auto) [place] # (Auto) Eos # (Auto) Baso # (Auto) Abs Immat Gran (auto) Absolute Neuts (auto) Absolute Nucleated RBC Nucleated RBC % (auto) Sodium 139 Potassium 4.3 Chloride 100 Carbon Dioxide 24 Anion Gap 19 BUN 22 H Creatinine 0.80 Estim Creat Clear Calc 51.9 Estimated GFR > 60 POC Glucose Random Glucose Fasting Glucose 116 H Estimat Average Glucose 114 Hemoglobin A1c % 5.6 Calcium 10.0 Total Bilirubin 0.4 AST 18 ALT 16 Alkaline Phosphatase 91 B-Natriuretic Peptide Total Protein 7.5 Albumin 4.4 Triglycerides 244 Cholesterol 264 LDL Cholesterol, Calc 162 HDL Cholesterol 54 Urine Color Urine Appearance Urine pH Ur Specific [place] Urine Protein Urine Glucose (UA) Urine Ketones Urine Blood Urine Nitrite Ur Leukocyte Esterase Urine RBC Urine WBC Ur Squamous Epith Cells Urine Bacteria Hyaline Casts COVID-19 ([facility]) COVID-19 Atmosferiq Com Meds/Allergies Meds Home Medications Medication Instructions Recorded Confirmed Type amlodipine 5 mg tablet 1 tab PO DAILY 11/07/21 11/07/21 History aripiprazole 2 mg tablet 1 tab PO BEDTIME 11/07/21 11/07/21 History carvedilol 6.25 mg tablet 1 tab PO BID 11/07/21 11/07/21 History clopidogrel 75 mg tablet 1 tab PO DAILY 11/07/21 11/07/21 History donepezil 5 mg tablet (Aricept) 1 tab PO BEDTIME 11/07/21 11/07/21 History furosemide 40 mg tablet 1 tab PO DAILY 11/07/21 11/07/21 History lisinopril 10 mg tablet 1 tab PO BID 11/07/21 11/07/21 History pantoprazole 40 mg tablet,delayed 1 tab PO DAILY 11/07/21 11/07/21 History release potassium chloride 10 mEq 1 cap PO DAILY 11/07/21 11/07/21 History capsule,extended release Allergies Allergies Allergy/AdvReac Type Severity Reaction Status Date / Time haloperidol [From Haldol] AdvReac Numbness Verified 11/07/21 18:05 Mental Status Exam Mental Status Exam Patient Appearance: Appropriate Patient Orientation: Person, Place and Situation Level of Consciousness: Awake Patient Behavior: Guarded and Passive Mood Description: Withdrawn Affect Description: Constricted Patient Cognition Impaired: Yes Ability to Follow Directions: Good Speech Pattern: Clear Hallucinations: None Delusions: Not Present Thought Process: Distracted Thought Content: positive for Circumstantial Judgement: Fair Assessment & Plan Assessment & Plan (1) Schizoaffective disorder, bipolar type: Status: Acute Code(s): F25.0 - Schizoaffective disorder, bipolar type Plan The patient is an elderly female with a long history of psychosis and mood lability, admitted for psychotic disc decompensation in the context of noncompliance. This is not the 1st admission that she had with a similar presentation. Plan 1. Gather collateral information. 2. We discussed risks, benefits, side-effects and alternatives and she agreed try a different psychotic. 3. Medical consult. Patient educated on: diagnosis and therapeutic strategies Informed Consent: further education needed Reason for continued inpatient stay Substantial Risk for: inability to function, rapid decompensation and med/psych decompensation
[2021-11-12 18:00] VITALS: BP 125/66; PULSE 74; RESP 16; TEMP 36.5; O2SAT 98
[2021-11-12 20:09] VITALS: BP 125/66; PULSE 74; RESP 16; TEMP 36.5; O2SAT 98
[2021-11-12] MEDS: OLANZapine 2.5 MG TABLET PO (20:33)
[2021-11-12] MEDS: Donepezil HCl 5 MG TABLET PO (20:33)
[2021-11-13 06:00] VITALS: BP 129/70; PULSE 67; RESP 17; TEMP 36; O2SAT 99
[2021-11-13] MEDS: Omeprazole 20 MG CAPSULE.DR PO (06:53)
[2021-11-13 07:00] VITALS: BMI 25.6
[2021-11-13] MEDS: amLODIPine Besylate 5 MG TABLET PO (09:37)
[2021-11-13] MEDS: Cholecalciferol (Vitamin D3) 25 MCG TABLET PO (09:37)
[2021-11-13] MEDS: Magnesium Oxide 400 MG TABLET PO (09:37)
[2021-11-13] MEDS: lisinopriL 10 MG TABLET PO ×2 (09:38→20:12)
[2021-11-13] MEDS: carvediloL 6.25 MG TABLET PO ×2 (09:38→20:11)
[2021-11-13] MEDS: Clopidogrel Bisulfate 75 MG TABLET PO (09:38)
[2021-11-13] MEDS: Furosemide 40 MG TABLET PO (09:38)
[2021-11-13] MEDS: Multivitamin TABLET 1 TAB PO (09:38)
--- NOTE | 2021-11-13 12:59 | P.PNPSI_ITS ---
Subjective Subjective Date of Service: 11/13/21 Reason For Visit: Psychosis Subjective Notes: Conditional Voluntary Interim History: The nursing staff reported the patient was seen self dialogue in. She had been fully compliant with medications. On interview, the patient denies new symptoms she looks internally preoccupied and paranoid, not interacting with her peers at this moment. The occupational therapist reported that her Dooly was 23/30 and her Anselmo test is 5.0. Mental Status Exam Mental Status Exam Patient Appearance: Well Grooomed Patient Orientation: Person and Situation Level of Consciousness: Awake Patient Behavior: Cooperative Mood Description: Constricted Affect Description: Withdrawn Patient Cognition Impaired: Yes Ability to Follow Directions: Good Speech Pattern: Clear Memory Description: Intact Hallucinations: None Delusions: Paranoid Ideation Thought Process: Distracted and Linear Thought Content: positive for [place] and positive for Poverty of Content Judgement: Fair Diagnostics Vital Signs (24Hr): Vital Signs - 24 hr 11/12/21 20:09 11/12/21 18:00 11/13/21 06:00 Temperature 97.7 F 97.7 F 96.8 F Pulse Rate 74 74 67 Respiratory Rate 16 16 17 Blood Pressure 125/66 125/66 129/70 Pulse Oximetry 98 98 99 Oxygen Delivery Method Room Air Room Air Room Air BMI result Body Mass Index 25.0 Labs Results: 11/11/21 06:56 11/12/21 08:17 Labs: Laboratory Results - last 48 hr 11/12/21 11/12/21 08:17 08:17 Sodium 139 Potassium 4.3 Chloride 100 Carbon Dioxide 24 Anion Gap 19 BUN 22 H Creatinine 0.80 Estim Creat Clear Calc 51.9 Estimated GFR > 60 Fasting Glucose 116 H Estimat Average Glucose 114 Hemoglobin A1c % 5.6 Calcium 10.0 Total Bilirubin 0.4 AST 18 ALT 16 Alkaline Phosphatase 91 Total Protein 7.5 Albumin 4.4 Triglycerides 244 Cholesterol 264 LDL Cholesterol, Calc 162 HDL Cholesterol 54 Medications Medications Current Medications Acetaminophen (Acetaminophen 325 Mg Tablet) 650 mg PO Q6H PRN PRN Reason: Headache/Pain Mild Scale (1-3) Al Hydroxide/Mg Hydroxide (Magnesium Hydrox/Alum Hydrox 30 Ml Oral.Susp) 30 ml PO Q6H PRN PRN Reason: Heartburn/Nausea Amlodipine Besylate (Amlodipine Besylate 5 Mg Tablet) 5 mg PO DAILY [facility]; Protocol Last Admin: 11/13/21 09:37 Dose: 5 mg Carvedilol (Carvedilol 6.25 Mg Tablet) 6.25 mg PO BID [facility]; Protocol Last Admin: 11/13/21 09:38 Dose: 6.25 mg Clopidogrel Bisulfate (Clopidogrel Bisulfate 75 Mg Tablet) 75 mg PO DAILY [facility] Last Admin: 11/13/21 09:38 Dose: 75 mg Donepezil HCl (Donepezil Hcl 5 Mg Tablet) 5 mg PO BEDTIME [facility] Last Admin: 11/12/21 20:33 Dose: 5 mg Furosemide (Furosemide 40 Mg Tablet) 40 mg PO DAILY [facility]; Protocol Last Admin: 11/13/21 09:38 Dose: 40 mg Hydroxyzine HCl (Hydroxyzine Hcl 25 Mg Tablet) 25 mg PO Q6H PRN PRN Reason: Anxiety Lisinopril (Lisinopril 10 Mg Tablet) 10 mg PO BID [facility]; Protocol Last Admin: 11/13/21 09:38 Dose: 10 mg Magnesium Hydroxide (Milk Of Magnesia 30 Ml Oral.Susp) 30 ml PO DAILY PRN PRN Reason: Constipation Magnesium Oxide (Magnesium Oxide 400 Mg Tablet) 400 mg PO DAILY [facility] Last Admin: 11/13/21 09:37 Dose: 400 mg Multivitamins/Vitamin C (Multivitamin Tablet) 1 tab PO DAILY [facility] Last Admin: 11/13/21 09:38 Dose: 1 tab Olanzapine (Olanzapine 2.5 Mg Tablet) 2.5 mg PO BEDTIME [facility] Last Admin: 11/12/21 20:33 Dose: 2.5 mg Omeprazole (Omeprazole 20 Mg Capsule.Dr) 20 mg PO DAILY@0630 [facility] Last Admin: 11/13/21 06:53 Dose: 20 mg Potassium Chloride (Potassium Chloride Er 10 Meq Capsule.Er) 10 meq PO DAILY [facility] Last Admin: 11/13/21 09:38 Dose: 10 meq Trazodone HCl (Trazodone Hcl 50 Mg Tablet) 50 mg PO BEDTIME PRN PRN Reason: Insomnia Vitamin D (Cholecalciferol (Vitamin D3) 25 Mcg Tablet) 25 mcg PO DAILY [facility] Last Admin: 11/13/21 09:37 Dose: 25 mcg Allergies Allergies Allergy/AdvReac Type Severity Reaction Status Date / Time haloperidol [From Haldol] AdvReac Numbness Verified 11/07/21 18:05 Assessment & Plan Assessment & Plan (1) Schizoaffective disorder, bipolar type: Status: Acute Code(s): F25.0 - Schizoaffective disorder, bipolar type Plan The patient is an elderly female with a long history of psychosis and mood lability, admitted for psychotic disc decompensation in the context of noncompliance. This is not the 1st admission that she had with a similar presentation. Plan 1. Gather collateral information. 2. We discussed risks, benefits, side-effects and alternatives and she agreed to restart Zyprexa, at this moment Zyprexa 2.5 p.o. q.h.s. 3. Medical consult. I spent ___20___ minutes with the patient and/or on the patient floor today, greater than?50% of which was spent counseling/coordinating care. Reason for contiued inpatient stay Substantial Risk for: inability to function, rapid decompensation and med/psych decompensation
[2021-11-13 18:00] VITALS: BP 152/70; PULSE 77; RESP 16; TEMP 36.6; O2SAT 98
[2021-11-13] MEDS: Donepezil HCl 5 MG TABLET PO (20:12)
[2021-11-13] MEDS: OLANZapine 2.5 MG TABLET PO (20:12)
[2021-11-13 21:38] LABS: Glucose, Whole Blood 91 mg/dL (60-115)
[2021-11-14 06:00] VITALS: BP 157/74; RESP 17; TEMP 36.6; O2SAT 97
[2021-11-14] MEDS: Omeprazole 20 MG CAPSULE.DR PO (07:01)
[2021-11-14] MEDS: Furosemide 40 MG TABLET PO (10:07)
[2021-11-14] MEDS: amLODIPine Besylate 5 MG TABLET PO (10:07)
[2021-11-14] MEDS: Multivitamin TABLET 1 TAB PO (10:07)
[2021-11-14] MEDS: Clopidogrel Bisulfate 75 MG TABLET PO (10:07)
[2021-11-14] MEDS: Cholecalciferol (Vitamin D3) 25 MCG TABLET PO (10:07)
[2021-11-14] MEDS: Magnesium Oxide 400 MG TABLET PO (10:07)
[2021-11-14] MEDS: carvediloL 6.25 MG TABLET PO ×2 (10:07→20:27)
[2021-11-14] MEDS: lisinopriL 10 MG TABLET PO ×2 (10:08→20:26)
--- NOTE | 2021-11-14 10:29 | HO.PSYCHPN ---
Subjective Subjective Date of Service: 11/14/21 Reason For Visit: Psychosis Subjective Notes: Conditional Voluntary Interim History: The nursing staff reported the patient was fully compliant with medications, she looks less internally preoccupied and she is engageable with staff that she knows from previous admissions. The staff has noticed very little self dialogue in the evening. On interview the patient denies new symptoms she denies over-sedation. We discussed treatment options and she agreed increase Zyprexa up to 5 mg p.o. q.h.s. to target psychosis. Mental Status Exam Mental Status Exam Patient Appearance: Well Grooomed Patient Orientation: Person and Situation Level of Consciousness: Awake Patient Behavior: Cooperative Mood Description: Calm Affect Description: Constricted Patient Cognition Impaired: Yes Ability to Follow Directions: Good Speech Pattern: Clear Memory Description: Intact Hallucinations: None Delusions: Paranoid Ideation Thought Process: Distracted and Linear Thought Content: positive for [place] and positive for Poverty of Content Judgement: Fair Diagnostics Vital Signs (24Hr): Vital Signs - 24 hr 11/13/21 18:00 Temperature 97.8 F Pulse Rate 77 Respiratory Rate 16 Blood Pressure 152/70 H Pulse Oximetry 98 Oxygen Delivery Method Room Air BMI result Body Mass Index 25.6 Labs Results: 11/11/21 06:56 11/12/21 08:17 Labs: Laboratory Results - last 48 hr 11/13/21 21:31 POC Glucose 91 Medications Medications Current Medications Acetaminophen (Acetaminophen 325 Mg Tablet) 650 mg PO Q6H PRN PRN Reason: Headache/Pain Mild Scale (1-3) Al Hydroxide/Mg Hydroxide (Magnesium Hydrox/Alum Hydrox 30 Ml Oral.Susp) 30 ml PO Q6H PRN PRN Reason: Heartburn/Nausea Amlodipine Besylate (Amlodipine Besylate 5 Mg Tablet) 5 mg PO DAILY [facility]; Protocol Last Admin: 11/14/21 10:07 Dose: 5 mg Carvedilol (Carvedilol 6.25 Mg Tablet) 6.25 mg PO BID [facility]; Protocol Last Admin: 11/14/21 10:07 Dose: 6.25 mg Clopidogrel Bisulfate (Clopidogrel Bisulfate 75 Mg Tablet) 75 mg PO DAILY [facility] Last Admin: 11/14/21 10:07 Dose: 75 mg Donepezil HCl (Donepezil Hcl 5 Mg Tablet) 5 mg PO BEDTIME [facility] Last Admin: 11/13/21 20:12 Dose: 5 mg Furosemide (Furosemide 40 Mg Tablet) 40 mg PO DAILY [facility]; Protocol Last Admin: 11/14/21 10:07 Dose: 40 mg Hydroxyzine HCl (Hydroxyzine Hcl 25 Mg Tablet) 25 mg PO Q6H PRN PRN Reason: Anxiety Lisinopril (Lisinopril 10 Mg Tablet) 10 mg PO BID [facility]; Protocol Last Admin: 11/14/21 10:08 Dose: 10 mg Magnesium Hydroxide (Milk Of Magnesia 30 Ml Oral.Susp) 30 ml PO DAILY PRN PRN Reason: Constipation Magnesium Oxide (Magnesium Oxide 400 Mg Tablet) 400 mg PO DAILY [facility] Last Admin: 11/14/21 10:07 Dose: 400 mg Multivitamins/Vitamin C (Multivitamin Tablet) 1 tab PO DAILY [facility] Last Admin: 11/14/21 10:07 Dose: 1 tab Olanzapine (Olanzapine 5 Mg Tablet) 5 mg PO BEDTIME [facility] Omeprazole (Omeprazole 20 Mg Capsule.Dr) 20 mg PO DAILY@0630 [facility] Last Admin: 11/14/21 07:01 Dose: 20 mg Potassium Chloride (Potassium Chloride Er 10 Meq Capsule.Er) 10 meq PO DAILY [facility] Last Admin: 11/14/21 10:08 Dose: 10 meq Trazodone HCl (Trazodone Hcl 50 Mg Tablet) 50 mg PO BEDTIME PRN PRN Reason: Insomnia Vitamin D (Cholecalciferol (Vitamin D3) 25 Mcg Tablet) 25 mcg PO DAILY [facility] Last Admin: 11/14/21 10:07 Dose: 25 mcg Allergies Allergies Allergy/AdvReac Type Severity Reaction Status Date / Time haloperidol [From Haldol] AdvReac Numbness Verified 11/07/21 18:05 Assessment & Plan Assessment & Plan (1) Schizoaffective disorder, bipolar type: Status: Acute Code(s): F25.0 - Schizoaffective disorder, bipolar type Plan The patient is an elderly female with a long history of psychosis and mood lability, admitted for psychotic disc decompensation in the context of noncompliance. This is not the 1st admission that she had with a similar presentation. Plan 1. Gather collateral information. 2. We discussed risks, benefits, side-effects and alternatives and she agreed to restart Zyprexa, at this moment Zyprexa 2.5 p.o. q.h.s. 3. Medical consult. I spent ___20___ minutes with the patient and/or on the patient floor today, greater than?50% of which was spent counseling/coordinating care. Reason for contiued inpatient stay Substantial Risk for: inability to function, rapid decompensation and med/psych decompensation
[2021-11-14 20:25] VITALS: BP 144/67; PULSE 96; RESP 17; TEMP 36.4; O2SAT 97
[2021-11-14] MEDS: Donepezil HCl 5 MG TABLET PO (20:26)
[2021-11-14] MEDS: OLANZapine 5 MG TABLET PO (20:26)
[2021-11-14 21:13] LABS: Glucose, Whole Blood 123 mg/dL (60-115)
[2021-11-14 22:43] VITALS: BP 144/72; PULSE 101; RESP 14; O2SAT 95
[2021-11-15] MEDS: Omeprazole 20 MG CAPSULE.DR PO (06:16)
[2021-11-15 08:00] VITALS: BP 167/67; PULSE 75; RESP 14; TEMP 36.3; O2SAT 93
[2021-11-15] MEDS: Clopidogrel Bisulfate 75 MG TABLET PO (08:23)
[2021-11-15] MEDS: Magnesium Oxide 400 MG TABLET PO (08:23)
[2021-11-15] MEDS: Furosemide 40 MG TABLET PO (08:24)
[2021-11-15] MEDS: carvediloL 6.25 MG TABLET PO ×2 (08:24→20:26)
[2021-11-15] MEDS: Cholecalciferol (Vitamin D3) 25 MCG TABLET PO (08:24)
[2021-11-15] MEDS: lisinopriL 10 MG TABLET PO ×2 (08:24→20:27)
[2021-11-15] MEDS: Multivitamin TABLET 1 TAB PO (08:25)
[2021-11-15] MEDS: amLODIPine Besylate 5 MG TABLET PO (08:25)
--- NOTE | 2021-11-15 14:50 | P.PNPSI_ITS ---
Subjective Subjective Date of Service: 11/15/21 Reason For Visit: Psychosis Subjective Notes: Conditional Voluntary Interim History: Patient somewhat flat and withdrawn. She has been taking olanzapine 5 mg at bedtime states she wishes she had continued Medication Compliance: Yes Mental Status Exam Mental Status Exam Patient Appearance: Well Grooomed Patient Orientation: Person and Situation Level of Consciousness: Awake Patient Behavior: Cooperative Mood Description: Calm Affect Description: Constricted Patient Cognition Impaired: Yes Ability to Follow Directions: Good Speech Pattern: Clear Memory Description: Intact Hallucinations: None Delusions: Paranoid Ideation Thought Process: Distracted and Linear Thought Content: positive for [place] and positive for Poverty of Content Judgement: Fair Diagnostics Vital Signs (24Hr): Vital Signs - 24 hr 11/14/21 20:25 11/14/21 22:43 11/15/21 08:00 Temperature 97.6 F 97.4 F Pulse Rate 96 101 H 75 Respiratory Rate 17 14 14 Blood Pressure 144/67 H 144/72 H 167/67 H Pulse Oximetry 97 95 93 Oxygen Delivery Method Room Air Room Air Room Air BMI result Body Mass Index 25.6 Labs Results: 11/11/21 06:56 11/12/21 08:17 Labs: Laboratory Results - last 48 hr 11/13/21 11/14/21 21:31 21:08 POC Glucose 91 123 H Medications Medications Current Medications Acetaminophen (Acetaminophen 325 Mg Tablet) 650 mg PO Q6H PRN PRN Reason: Headache/Pain Mild Scale (1-3) Al Hydroxide/Mg Hydroxide (Magnesium Hydrox/Alum Hydrox 30 Ml Oral.Susp) 30 ml PO Q6H PRN PRN Reason: Heartburn/Nausea Amlodipine Besylate (Amlodipine Besylate 5 Mg Tablet) 5 mg PO DAILY [facility]; Protocol Last Admin: 11/15/21 08:25 Dose: 5 mg Carvedilol (Carvedilol 6.25 Mg Tablet) 6.25 mg PO BID [facility]; Protocol Last Admin: 11/15/21 08:24 Dose: 6.25 mg Clopidogrel Bisulfate (Clopidogrel Bisulfate 75 Mg Tablet) 75 mg PO DAILY [facility] Last Admin: 11/15/21 08:23 Dose: 75 mg Donepezil HCl (Donepezil Hcl 5 Mg Tablet) 5 mg PO BEDTIME [facility] Last Admin: 11/14/21 20:26 Dose: 5 mg Furosemide (Furosemide 40 Mg Tablet) 40 mg PO DAILY [facility]; Protocol Last Admin: 11/15/21 08:24 Dose: 40 mg Hydroxyzine HCl (Hydroxyzine Hcl 25 Mg Tablet) 25 mg PO Q6H PRN PRN Reason: Anxiety Lisinopril (Lisinopril 10 Mg Tablet) 10 mg PO BID [facility]; Protocol Last Admin: 11/15/21 08:24 Dose: 10 mg Magnesium Hydroxide (Milk Of Magnesia 30 Ml Oral.Susp) 30 ml PO DAILY PRN PRN Reason: Constipation Magnesium Oxide (Magnesium Oxide 400 Mg Tablet) 400 mg PO DAILY [facility] Last Admin: 11/15/21 08:23 Dose: 400 mg Multivitamins/Vitamin C (Multivitamin Tablet) 1 tab PO DAILY [facility] Last Admin: 11/15/21 08:25 Dose: 1 tab Olanzapine (Olanzapine 5 Mg Tablet) 5 mg PO BEDTIME [facility] Last Admin: 11/14/21 20:26 Dose: 5 mg Omeprazole (Omeprazole 20 Mg Capsule.Dr) 20 mg PO DAILY@0630 [facility] Last Admin: 11/15/21 06:16 Dose: 20 mg Potassium Chloride (Potassium Chloride Er 10 Meq Capsule.Er) 10 meq PO DAILY [facility] Last Admin: 11/15/21 08:23 Dose: 10 meq Trazodone HCl (Trazodone Hcl 50 Mg Tablet) 50 mg PO BEDTIME PRN PRN Reason: Insomnia Vitamin D (Cholecalciferol (Vitamin D3) 25 Mcg Tablet) 25 mcg PO DAILY [facility] Last Admin: 11/15/21 08:24 Dose: 25 mcg Allergies Allergies Allergy/AdvReac Type Severity Reaction Status Date / Time haloperidol [From Haldol] AdvReac Numbness Verified 11/07/21 18:05 Assessment & Plan Assessment & Plan (1) Schizoaffective disorder, bipolar type: Status: Acute Code(s): F25.0 - Schizoaffective disorder, bipolar type Plan The patient is an elderly female with a long history of psychosis and mood lability, admitted for psychotic disc decompensation in the context of noncompliance. This is not the 1st admission that she had with a similar presentation. Plan 1. Gather collateral information. 2. We discussed risks, benefits, side-effects and alternatives and she agreed to restart Zyprexa, at this moment Zyprexa 2.5 p.o. q.h.s. 3. Medical consult. 11/15/2021 Continue olanzapine 5 mg at bedtime patient was able to take in information regarding diagnosis treatment I spent minutes with the patient and/or on the patient floor today, greater than?50% of which was spent counseling/coordinating care. Reason for contiued inpatient stay Substantial Risk for: inability to function and rapid decompensation
[2021-11-15 18:00] VITALS: BP 131/67; PULSE 72; RESP 18; TEMP 36.6; O2SAT 94
[2021-11-15] MEDS: Aspirin Enteric Coated 81 MG TABLET.DR PO (20:26)
[2021-11-15] MEDS: Donepezil HCl 5 MG TABLET PO (20:27)
[2021-11-15] MEDS: OLANZapine 5 MG TABLET PO (20:28)
[2021-11-16 07:45] VITALS: BP 141/63; PULSE 77; RESP 16; TEMP 36.6; O2SAT 94
[2021-11-16] MEDS: Omeprazole 20 MG CAPSULE.DR PO (07:47)
[2021-11-16 07:56] LABS: Glucose, Whole Blood 107 mg/dL (60-115)
[2021-11-16] MEDS: carvediloL 6.25 MG TABLET PO ×2 (08:18→20:29)
[2021-11-16] MEDS: lisinopriL 10 MG TABLET PO ×2 (08:18→20:29)
[2021-11-16] MEDS: Clopidogrel Bisulfate 75 MG TABLET PO (08:18)
[2021-11-16] MEDS: Magnesium Oxide 400 MG TABLET PO (08:19)
[2021-11-16] MEDS: Cholecalciferol (Vitamin D3) 25 MCG TABLET PO (08:19)
[2021-11-16] MEDS: Furosemide 40 MG TABLET PO (08:19)
[2021-11-16] MEDS: amLODIPine Besylate 5 MG TABLET PO (08:19)
[2021-11-16] MEDS: Multivitamin TABLET 1 TAB PO (08:20)
[2021-11-16] MEDS: Aspirin Enteric Coated 81 MG TABLET.DR PO (15:24)
--- NOTE | 2021-11-16 16:04 | P.PNPSI_ITS ---
Subjective Subjective Date of Service: 11/16/21 Reason For Visit: Psychosis Subjective Notes: Conditional Voluntary Interim History: Patient often isolating to her room states she has been feeling better since being on olanzapine was able to take in information about glucose intolerance and trying and no added sweet diet limiting carbohydrates. Patient also has to go back on a a baby aspirin which she has taken for years seems guarded limited interaction with others Medication Compliance: Yes Mental Status Exam Mental Status Exam Patient Appearance: Well Grooomed Patient Orientation: Person and Situation Level of Consciousness: Awake Patient Behavior: Cooperative Mood Description: Calm Affect Description: Constricted Patient Cognition Impaired: Yes Ability to Follow Directions: Good Speech Pattern: Clear Memory Description: Intact Hallucinations: None Delusions: Paranoid Ideation Thought Process: Distracted and Linear Thought Content: positive for [place] and positive for Poverty of Content Judgement: Fair Diagnostics Vital Signs (24Hr): Vital Signs - 24 hr 11/15/21 18:00 11/16/21 07:45 Temperature 98 F 97.8 F Pulse Rate 72 77 Respiratory Rate 18 16 Blood Pressure 131/67 141/63 H Pulse Oximetry 94 94 Oxygen Delivery Method Room Air Room Air BMI result Body Mass Index 25.6 Labs Results: 11/11/21 06:56 11/12/21 08:17 Labs: Laboratory Results - last 48 hr 11/14/21 11/16/21 21:08 07:46 POC Glucose 123 H 107 Medications Medications Current Medications Acetaminophen (Acetaminophen 325 Mg Tablet) 650 mg PO Q6H PRN PRN Reason: Headache/Pain Mild Scale (1-3) Al Hydroxide/Mg Hydroxide (Magnesium Hydrox/Alum Hydrox 30 Ml Oral.Susp) 30 ml PO Q6H PRN PRN Reason: Heartburn/Nausea Amlodipine Besylate (Amlodipine Besylate 5 Mg Tablet) 5 mg PO DAILY [facility]; Protocol Last Admin: 11/16/21 08:19 Dose: 5 mg Aspirin (Aspirin Enteric Coated 81 Mg Tablet.) 81 mg PO DAILY [facility] Last Admin: 11/16/21 15:24 Dose: 81 mg Carvedilol (Carvedilol 6.25 Mg Tablet) 6.25 mg PO BID [facility]; Protocol Last Admin: 11/16/21 08:18 Dose: 6.25 mg Clopidogrel Bisulfate (Clopidogrel Bisulfate 75 Mg Tablet) 75 mg PO DAILY [facility] Last Admin: 11/16/21 08:18 Dose: 75 mg Donepezil HCl (Donepezil Hcl 5 Mg Tablet) 5 mg PO BEDTIME [facility] Last Admin: 11/15/21 20:27 Dose: 5 mg Furosemide (Furosemide 40 Mg Tablet) 40 mg PO DAILY [facility]; Protocol Last Admin: 11/16/21 08:19 Dose: 40 mg Hydroxyzine HCl (Hydroxyzine Hcl 25 Mg Tablet) 25 mg PO Q6H PRN PRN Reason: Anxiety Lisinopril (Lisinopril 10 Mg Tablet) 10 mg PO BID [facility]; Protocol Last Admin: 11/16/21 08:18 Dose: 10 mg Magnesium Hydroxide (Milk Of Magnesia 30 Ml Oral.Susp) 30 ml PO DAILY PRN PRN Reason: Constipation Magnesium Oxide (Magnesium Oxide 400 Mg Tablet) 400 mg PO DAILY [facility] Last Admin: 11/16/21 08:19 Dose: 400 mg Multivitamins/Vitamin C (Multivitamin Tablet) 1 tab PO DAILY [facility] Last Admin: 11/16/21 08:20 Dose: 1 tab Olanzapine (Olanzapine 5 Mg Tablet) 5 mg PO BEDTIME [facility] Last Admin: 11/15/21 20:28 Dose: 5 mg Omeprazole (Omeprazole 20 Mg Capsule.Dr) 20 mg PO DAILY@0630 [facility] Last Admin: 11/16/21 07:47 Dose: 20 mg Potassium Chloride (Potassium Chloride Er 10 Meq Capsule.Er) 10 meq PO DAILY [facility] Last Admin: 11/16/21 08:18 Dose: 10 meq Trazodone HCl (Trazodone Hcl 50 Mg Tablet) 50 mg PO BEDTIME PRN PRN Reason: Insomnia Vitamin D (Cholecalciferol (Vitamin D3) 25 Mcg Tablet) 25 mcg PO DAILY [facility] Last Admin: 11/16/21 08:19 Dose: 25 mcg Allergies Allergies Allergy/AdvReac Type Severity Reaction Status Date / Time haloperidol [From Haldol] AdvReac Numbness Verified 11/07/21 18:05 Assessment & Plan Assessment & Plan (1) Schizoaffective disorder, bipolar type: Status: Acute Code(s): F25.0 - Schizoaffective disorder, bipolar type Plan The patient is an elderly female with a long history of psychosis and mood lability, admitted for psychotic disc decompensation in the context of noncompliance. This is not the 1st admission that she had with a similar presentation. Plan 1. Gather collateral information. 2. We discussed risks, benefits, side-effects and alternatives and she agreed to restart Zyprexa, at this moment Zyprexa 2.5 p.o. q.h.s. 3. Medical consult. 11/15/2021 Continue olanzapine 5 mg at bedtime patient was able to take in information regarding diagnosis treatment 11/16/2021 Continue plan of care monitor blood sugar encourage no added sweets trying get better sense of patient's internal state I spent minutes with the patient and/or on the patient floor today, gr eater than?50% of which was spent counseling/coordinating care. Reason for contiued inpatient stay Substantial Risk for: inability to function
[2021-11-16 20:00] VITALS: BP 143/73; PULSE 71; TEMP 36.6; O2SAT 98
[2021-11-16] MEDS: Donepezil HCl 5 MG TABLET PO (20:28)
[2021-11-16] MEDS: OLANZapine 5 MG TABLET PO (20:29)
[2021-11-17 06:00] VITALS: BP 148/67; PULSE 70; RESP 17; TEMP 36.1; O2SAT 96
[2021-11-17] MEDS: lisinopriL 10 MG TABLET PO ×2 (09:29→20:18)
[2021-11-17] MEDS: amLODIPine Besylate 5 MG TABLET PO (09:29)
[2021-11-17] MEDS: Multivitamin TABLET 1 TAB PO (09:30)
[2021-11-17] MEDS: Furosemide 40 MG TABLET PO (09:30)
[2021-11-17] MEDS: Cholecalciferol (Vitamin D3) 25 MCG TABLET PO (09:30)
[2021-11-17] MEDS: Aspirin Enteric Coated 81 MG TABLET.DR PO (09:30)
[2021-11-17] MEDS: Magnesium Oxide 400 MG TABLET PO (09:30)
[2021-11-17] MEDS: Omeprazole 20 MG CAPSULE.DR PO (09:30)
[2021-11-17] MEDS: Clopidogrel Bisulfate 75 MG TABLET PO (09:30)
[2021-11-17] MEDS: carvediloL 6.25 MG TABLET PO ×2 (09:30→20:19)
--- NOTE | 2021-11-17 16:10 | HO.PSYCHPN ---
Subjective Subjective Date of Service: 11/17/21 Reason For Visit: Psychosis Subjective Notes: Conditional Voluntary Interim History: The nursing staff reported the patient slept with p.r.n. medications, she has been isolative and slightly paranoid but no overt hallucinations or delusions. On interview the patient denies new symptoms she looks chronically paranoid. We talked with the son and explained about the legal options and we will try to affirmed her healthcare proxy. At this moment the patient is cooperative and she is signing herself in. Mental Status Exam Mental Status Exam Patient Appearance: Well Grooomed Patient Orientation: Person and Situation Level of Consciousness: Awake Mood Description: Withdrawn Affect Description: Constricted Patient Cognition Impaired: Yes Ability to Follow Directions: Good Speech Pattern: Clear Hallucinations: None Delusions: Paranoid Ideation Thought Process: Illogical Thought Content: positive for [place] Judgement: Fair Diagnostics Vital Signs (24Hr): Vital Signs - 24 hr 11/16/21 20:00 11/17/21 06:00 Temperature 97.9 F 97.0 F Pulse Rate 71 70 Respiratory Rate 17 Blood Pressure 143/73 H 148/67 H Pulse Oximetry 98 96 Oxygen Delivery Method Room Air Room Air BMI result Body Mass Index 25.6 Labs Results: 11/11/21 06:56 11/12/21 08:17 Labs: Laboratory Results - last 48 hr 11/16/21 07:46 POC Glucose 107 Medications Medications Current Medications Acetaminophen (Acetaminophen 325 Mg Tablet) 650 mg PO Q6H PRN PRN Reason: Headache/Pain Mild Scale (1-3) Al Hydroxide/Mg Hydroxide (Magnesium Hydrox/Alum Hydrox 30 Ml Oral.Susp) 30 ml PO Q6H PRN PRN Reason: Heartburn/Nausea Amlodipine Besylate (Amlodipine Besylate 5 Mg Tablet) 5 mg PO DAILY [facility]; Protocol Last Admin: 11/17/21 09:29 Dose: 5 mg Aspirin (Aspirin Enteric Coated 81 Mg Tablet.) 81 mg PO DAILY [facility] Last Admin: 11/17/21 09:30 Dose: 81 mg Carvedilol (Carvedilol 6.25 Mg Tablet) 6.25 mg PO BID [facility]; Protocol Last Admin: 11/17/21 09:30 Dose: 6.25 mg Clopidogrel Bisulfate (Clopidogrel Bisulfate 75 Mg Tablet) 75 mg PO DAILY [facility] Last Admin: 11/17/21 09:30 Dose: 75 mg Donepezil HCl (Donepezil Hcl 5 Mg Tablet) 5 mg PO BEDTIME [facility] Last Admin: 11/16/21 20:28 Dose: 5 mg Furosemide (Furosemide 40 Mg Tablet) 40 mg PO DAILY [facility]; Protocol Last Admin: 11/17/21 09:30 Dose: 40 mg Hydroxyzine HCl (Hydroxyzine Hcl 25 Mg Tablet) 25 mg PO Q6H PRN PRN Reason: Anxiety Lisinopril (Lisinopril 10 Mg Tablet) 10 mg PO BID [facility]; Protocol Last Admin: 11/17/21 09:29 Dose: 10 mg Magnesium Hydroxide (Milk Of Magnesia 30 Ml Oral.Susp) 30 ml PO DAILY PRN PRN Reason: Constipation Magnesium Oxide (Magnesium Oxide 400 Mg Tablet) 400 mg PO DAILY [facility] Last Admin: 11/17/21 09:30 Dose: 400 mg Multivitamins/Vitamin C (Multivitamin Tablet) 1 tab PO DAILY [facility] Last Admin: 11/17/21 09:30 Dose: 1 tab Olanzapine (Olanzapine 5 Mg Tablet) 5 mg PO BEDTIME [facility] Last Admin: 11/16/21 20:29 Dose: 5 mg Omeprazole (Omeprazole 20 Mg Capsule.Dr) 20 mg PO DAILY@0630 [facility] Last Admin: 11/17/21 09:30 Dose: 20 mg Potassium Chloride (Potassium Chloride Er 10 Meq Capsule.Er) 10 meq PO DAILY [facility] Last Admin: 11/17/21 09:29 Dose: 10 meq Trazodone HCl (Trazodone Hcl 50 Mg Tablet) 50 mg PO BEDTIME PRN PRN Reason: Insomnia Vitamin D (Cholecalciferol (Vitamin D3) 25 Mcg Tablet) 25 mcg PO DAILY [facility] Last Admin: 11/17/21 09:30 Dose: 25 mcg Allergies Allergies Allergy/AdvReac Type Severity Reaction Status Date / Time haloperidol [From Haldol] AdvReac Numbness Verified 11/07/21 18:05 Assessment & Plan Assessment & Plan (1) Schizoaffective disorder, bipolar type: Status: Acute Code(s): F25.0 - Schizoaffective disorder, bipolar type Plan The patient is an elderly female with a long history of psychosis and mood lability, admitted for psychotic disc decompensation in the context of noncompliance. This is not the 1st admission that she had with a similar presentation. Plan 1. Gather collateral information. 2. We discussed risks, benefits, side-effects and alternatives and she agreed to restart Zyprexa, at this moment Zyprexa 5 mg at night. 3. Medical consult. 4. Affirmation of healthcare proxy I spent ___20___ minutes with the patient and/or on the patient floor today, greater than?50% of which was spent counseling/coordinating care. Reason for contiued inpatient stay Substantial Risk for: inability to function, rapid decompensation and med/psych decompensation
[2021-11-17 19:00] VITALS: BP 115/61; PULSE 68; RESP 16; TEMP 36.4; O2SAT 98
[2021-11-17] MEDS: Donepezil HCl 5 MG TABLET PO (20:19)
[2021-11-17] MEDS: OLANZapine 5 MG TABLET PO (20:19)
[2021-11-18] MEDS: Omeprazole 20 MG CAPSULE.DR PO (06:41)
[2021-11-18 08:00] VITALS: BP 131/59; PULSE 66; RESP 16; TEMP 36.1; O2SAT 97
[2021-11-18] MEDS: Furosemide 40 MG TABLET PO (08:08)
[2021-11-18] MEDS: Clopidogrel Bisulfate 75 MG TABLET PO (08:08)
[2021-11-18] MEDS: Aspirin Enteric Coated 81 MG TABLET.DR PO (08:08)
[2021-11-18] MEDS: Magnesium Oxide 400 MG TABLET PO (08:09)
[2021-11-18] MEDS: Cholecalciferol (Vitamin D3) 25 MCG TABLET PO (08:10)
[2021-11-18] MEDS: Multivitamin TABLET 1 TAB PO (08:10)
[2021-11-18] MEDS: lisinopriL 10 MG TABLET PO ×2 (08:10→20:17)
[2021-11-18] MEDS: carvediloL 6.25 MG TABLET PO ×2 (08:10→20:15)
[2021-11-18] MEDS: amLODIPine Besylate 5 MG TABLET PO (08:11)
[2021-11-18 08:37] LABS: Estimated Average Glucose 114 mg/dL; Hemoglobin A1c % 5.6 %
--- NOTE | 2021-11-18 11:14 | HO.PSYCHPN ---
Subjective Subjective Date of Service: 11/18/21 Reason For Visit: Psychosis Subjective Notes: Conditional Voluntary Interim History: The nursing staff reported the patient was asking to the 9 nurse who she was in trouble. That is a very common behavior her when she is paranoid. The patient has therapist reported that she has come to groups but she does not participate much she looks with brown. We discussed her case with our copper plate lithographer and apparently we cannot filed for information of a healthcare proxy if the healthcare proxy has not being invoked. We will inform her son about this problem. On interview the patient denies side effects with Zyprexa 5 mg p.o. q.h.s. and she states that she is sleeping well, still she looks paranoid. Refused increase of Zyprexa up to 7.5 mg po qhs. Medication Compliance: Yes Side effects from medications: No Attending Groups: Yes Mental Status Exam Mental Status Exam Patient Appearance: Well Grooomed Patient Orientation: Person and Situation Level of Consciousness: Awake Patient Behavior: Cooperative Mood Description: Withdrawn Affect Description: Constricted Patient Cognition Impaired: Yes Ability to Follow Directions: Good Speech Pattern: Clear Hallucinations: None Delusions: Paranoid Ideation Thought Process: Distracted and Linear Thought Content: positive for [place] and positive for Poverty of Content Judgement: Fair Diagnostics Vital Signs (24Hr): Vital Signs - 24 hr 11/17/21 19:00 11/18/21 08:00 Temperature 97.6 F 96.9 F Pulse Rate 68 66 Respiratory Rate 16 16 Blood Pressure 115/61 131/59 L Pulse Oximetry 98 97 Oxygen Delivery Method Room Air Room Air BMI result Body Mass Index 25.6 Labs Results: 11/11/21 06:56 11/12/21 08:17 Labs: Laboratory Results - last 48 hr 11/18/21 08:01 Estimat Average Glucose 114 Hemoglobin A1c % 5.6 Medications Medications Current Medications Acetaminophen (Acetaminophen 325 Mg Tablet) 650 mg PO Q6H PRN PRN Reason: Headache/Pain Mild Scale (1-3) Al Hydroxide/Mg Hydroxide (Magnesium Hydrox/Alum Hydrox 30 Ml Oral.Susp) 30 ml PO Q6H PRN PRN Reason: Heartburn/Nausea Amlodipine Besylate (Amlodipine Besylate 5 Mg Tablet) 5 mg PO DAILY [facility]; Protocol Last Admin: 11/18/21 08:11 Dose: 5 mg Aspirin (Aspirin Enteric Coated 81 Mg Tablet.) 81 mg PO DAILY [facility] Last Admin: 11/18/21 08:08 Dose: 81 mg Carvedilol (Carvedilol 6.25 Mg Tablet) 6.25 mg PO BID [facility]; Protocol Last Admin: 11/18/21 08:10 Dose: 6.25 mg Clopidogrel Bisulfate (Clopidogrel Bisulfate 75 Mg Tablet) 75 mg PO DAILY [facility] Last Admin: 11/18/21 08:08 Dose: 75 mg Donepezil HCl (Donepezil Hcl 5 Mg Tablet) 5 mg PO BEDTIME [facility] Last Admin: 11/17/21 20:19 Dose: 5 mg Furosemide (Furosemide 40 Mg Tablet) 40 mg PO DAILY [facility]; Protocol Last Admin: 11/18/21 08:08 Dose: 40 mg Hydroxyzine HCl (Hydroxyzine Hcl 25 Mg Tablet) 25 mg PO Q6H PRN PRN Reason: Anxiety Lisinopril (Lisinopril 10 Mg Tablet) 10 mg PO BID [facility]; Protocol Last Admin: 11/18/21 08:10 Dose: 10 mg Magnesium Hydroxide (Milk Of Magnesia 30 Ml Oral.Susp) 30 ml PO DAILY PRN PRN Reason: Constipation Magnesium Oxide (Magnesium Oxide 400 Mg Tablet) 400 mg PO DAILY [facility] Last Admin: 11/18/21 08:09 Dose: 400 mg Multivitamins/Vitamin C (Multivitamin Tablet) 1 tab PO DAILY [facility] Last Admin: 11/18/21 08:10 Dose: 1 tab Olanzapine (Olanzapine 5 Mg Tablet) 5 mg PO BEDTIME [facility] Last Admin: 11/17/21 20:19 Dose: 5 mg Omeprazole (Omeprazole 20 Mg Capsule.) 20 mg PO DAILY@0630 [facility] Last Admin: 11/18/21 06:41 Dose: 20 mg Potassium Chloride (Potassium Chloride Er 10 Meq Capsule.Er) 10 meq PO DAILY [facility] Last Admin: 11/18/21 08:07 Dose: 10 meq Trazodone HCl (Trazodone Hcl 50 Mg Tablet) 50 mg PO BEDTIME PRN PRN Reason: Insomnia Vitamin D (Cholecalciferol (Vitamin D3) 25 Mcg Tablet) 25 mcg PO DAILY [facility] Last Admin: 11/18/21 08:10 Dose: 25 mcg Allergies Allergies Allergy/AdvReac Type Severity Reaction Status Date / Time haloperidol [From Haldol] AdvReac Numbness Verified 11/07/21 18:05 Assessment & Plan Assessment & Plan (1) Schizoaffective disorder, bipolar type: Status: Acute Code(s): F25.0 - Schizoaffective disorder, bipolar type Plan The patient is an elderly female with a long history of psychosis and mood lability, admitted for psychotic disc decompensation in the context of noncompliance. This is not the 1st admission that she had with a similar presentation. Plan 1. Gather collateral information. 2. We discussed risks, benefits, side-effects and alternatives and she agreed to restart Zyprexa, at this moment Zyprexa 5 mg at night. 3. Medical consult. 4. Affirmation of healthcare proxy is not going to be possible at this moment since the patient has capacity at this moment I spent __20____ minutes with the patient and/or on the patient floor today, greater than?50% of which was spent counseling/coordinating care. Reason for contiued inpatient stay Substantial Risk for: inability to function, rapid decompensation and med/psych decompensation
[2021-11-18 18:00] VITALS: BP 119/60; PULSE 70; RESP 16; TEMP 36.6; O2SAT 98
[2021-11-18] MEDS: Donepezil HCl 5 MG TABLET PO (20:17)
[2021-11-18] MEDS: OLANZapine 5 MG TABLET PO (20:17)
[2021-11-19] MEDS: Omeprazole 20 MG CAPSULE.DR PO (06:40)
[2021-11-19 07:55] VITALS: BP 143/75; BP 160/74; PULSE 70; RESP 17; TEMP 36.3; O2SAT 96
[2021-11-19] MEDS: Cholecalciferol (Vitamin D3) 25 MCG TABLET PO (08:00)
[2021-11-19] MEDS: Furosemide 40 MG TABLET PO (08:01)
[2021-11-19] MEDS: Multivitamin TABLET 1 TAB PO (08:01)
[2021-11-19] MEDS: carvediloL 6.25 MG TABLET PO (08:02)
[2021-11-19] MEDS: Clopidogrel Bisulfate 75 MG TABLET PO (08:02)
[2021-11-19] MEDS: Magnesium Oxide 400 MG TABLET PO (08:02)
[2021-11-19] MEDS: amLODIPine Besylate 5 MG TABLET PO (08:02)
[2021-11-19] MEDS: lisinopriL 10 MG TABLET PO ×2 (08:03→19:57)
[2021-11-19] MEDS: Aspirin Enteric Coated 81 MG TABLET.DR PO (08:03)
--- NOTE | 2021-11-19 10:58 | HO.PSYCHPN ---
Subjective Subjective Date of Service: 11/19/21 Reason For Visit: Psychosis Subjective Notes: Conditional Voluntary Interim History: The nursing staff reported the patient has been fully compliant with treatment, she slept well last night. On interview the patient denies new symptoms. Yesterday we have a long conversation regarding the dose of Zyprexa and initially she was open to increase it but later on she wanted to keep it of only 5 mg p.o. q.h.s.. Mental Status Exam Mental Status Exam Patient Appearance: Well Grooomed Patient Orientation: Person and Situation Level of Consciousness: Awake Patient Behavior: Cooperative Mood Description: Withdrawn Affect Description: Constricted Patient Cognition Impaired: Yes Ability to Follow Directions: Good Speech Pattern: Clear Hallucinations: None Delusions: Paranoid Ideation Thought Process: Distracted Thought Content: positive for [place] and positive for Poverty of Content Judgement: Fair Diagnostics Vital Signs (24Hr): Vital Signs - 24 hr 11/18/21 18:00 11/19/21 07:55 11/19/21 07:55 Temperature 98 F 97.3 F Pulse Rate 70 70 Respiratory Rate 16 17 Blood Pressure 119/60 160/74 H 143/75 H Pulse Oximetry 98 96 Oxygen Delivery Method Room Air Room Air BMI result Body Mass Index 25.6 Labs Results: 11/11/21 06:56 11/12/21 08:17 Labs: Laboratory Results - last 48 hr 11/18/21 08:01 Estimat Average Glucose 114 Hemoglobin A1c % 5.6 Medications Medications Current Medications Acetaminophen (Acetaminophen 325 Mg Tablet) 650 mg PO Q6H PRN PRN Reason: Headache/Pain Mild Scale (1-3) Al Hydroxide/Mg Hydroxide (Magnesium Hydrox/Alum Hydrox 30 Ml Oral.Susp) 30 ml PO Q6H PRN PRN Reason: Heartburn/Nausea Amlodipine Besylate (Amlodipine Besylate 5 Mg Tablet) 5 mg PO DAILY [facility]; Protocol Last Admin: 11/19/21 08:02 Dose: 5 mg Aspirin (Aspirin Enteric Coated 81 Mg Tablet.) 81 mg PO DAILY [facility] Last Admin: 11/19/21 08:03 Dose: 81 mg Carvedilol (Carvedilol 6.25 Mg Tablet) 6.25 mg PO BID [facility]; Protocol Last Admin: 11/19/21 08:02 Dose: 6.25 mg Clopidogrel Bisulfate (Clopidogrel Bisulfate 75 Mg Tablet) 75 mg PO DAILY [facility] Last Admin: 11/19/21 08:02 Dose: 75 mg Donepezil HCl (Donepezil Hcl 5 Mg Tablet) 5 mg PO BEDTIME [facility] Last Admin: 11/18/21 20:17 Dose: 5 mg Furosemide (Furosemide 40 Mg Tablet) 40 mg PO DAILY [facility]; Protocol Last Admin: 11/19/21 08:01 Dose: 40 mg Hydroxyzine HCl (Hydroxyzine Hcl 25 Mg Tablet) 25 mg PO Q6H PRN PRN Reason: Anxiety Lisinopril (Lisinopril 10 Mg Tablet) 10 mg PO BID [facility]; Protocol Last Admin: 11/19/21 08:03 Dose: 10 mg Magnesium Hydroxide (Milk Of Magnesia 30 Ml Oral.Susp) 30 ml PO DAILY PRN PRN Reason: Constipation Magnesium Oxide (Magnesium Oxide 400 Mg Tablet) 400 mg PO DAILY [facility] Last Admin: 11/19/21 08:02 Dose: 400 mg Multivitamins/Vitamin C (Multivitamin Tablet) 1 tab PO DAILY [facility] Last Admin: 11/19/21 08:01 Dose: 1 tab Olanzapine (Olanzapine 5 Mg Tablet) 5 mg PO BEDTIME [facility] Last Admin: 11/18/21 20:17 Dose: 5 mg Omeprazole (Omeprazole 20 Mg Capsule.Dr) 20 mg PO DAILY@0630 [facility] Last Admin: 11/19/21 06:40 Dose: 20 mg Potassium Chloride (Potassium Chloride Er 10 Meq Capsule.Er) 10 meq PO DAILY [facility] Last Admin: 11/19/21 08:01 Dose: 10 meq Trazodone HCl (Trazodone Hcl 50 Mg Tablet) 50 mg PO BEDTIME PRN PRN Reason: Insomnia Vitamin D (Cholecalciferol (Vitamin D3) 25 Mcg Tablet) 25 mcg PO DAILY [facility] Last Admin: 11/19/21 08:00 Dose: 25 mcg Allergies Allergies Allergy/AdvReac Type Severity Reaction Status Date / Time haloperidol [From Haldol] AdvReac Numbness Verified 11/07/21 18:05 Assessment & Plan Assessment & Plan (1) Schizoaffective disorder, bipolar type: Status: Acute Code(s): F25.0 - Schizoaffective disorder, bipolar type Plan The patient is an elderly female with a long history of psychosis and mood lability, admitted for psychotic disc decompensation in the context of noncompliance. This is not the 1st admission that she had with a similar presentation. Plan 1. Gather collateral information. 2. We discussed risks, benefits, side-effects and alternatives and she agreed to restart Zyprexa, at this moment Zyprexa 5 mg at night. 3. Medical consult. 4. Affirmation of healthcare proxy is not going to be possible at this moment since the patient has capacity at this moment I spent __20____ minutes with the patient and/or on the patient floor today, greater than?50% of which was spent counseling/coordinating care. Reason for contiued inpatient stay Substantial Risk for: inability to function, rapid decompensation and med/psych decompensation
[2021-11-19 18:00] VITALS: BP 138/69; PULSE 78; RESP 18; TEMP 36.6; O2SAT 96
[2021-11-19] MEDS: Donepezil HCl 5 MG TABLET PO (19:57)
[2021-11-19] MEDS: OLANZapine 5 MG TABLET PO (19:57)
[2021-11-20] MEDS: carvediloL 6.25 MG TABLET PO ×3 (00:02→20:19)
[2021-11-20] MEDS: Omeprazole 20 MG CAPSULE.DR PO (06:17)
[2021-11-20 07:00] VITALS: BMI 25.3
[2021-11-20 08:05] VITALS: BP 139/62; PULSE 68; RESP 14; TEMP 36.1; O2SAT 97
[2021-11-20] MEDS: Furosemide 40 MG TABLET PO (08:27)
[2021-11-20] MEDS: amLODIPine Besylate 5 MG TABLET PO (08:27)
[2021-11-20] MEDS: Aspirin Enteric Coated 81 MG TABLET.DR PO (08:27)
[2021-11-20] MEDS: lisinopriL 10 MG TABLET PO ×2 (08:27→20:20)
[2021-11-20] MEDS: Cholecalciferol (Vitamin D3) 25 MCG TABLET PO (08:27)
[2021-11-20] MEDS: Magnesium Oxide 400 MG TABLET PO (08:28)
[2021-11-20] MEDS: Clopidogrel Bisulfate 75 MG TABLET PO (08:28)
[2021-11-20] MEDS: Multivitamin TABLET 1 TAB PO (08:28)
--- NOTE | 2021-11-20 13:45 | HO.PSYCHPN ---
Subjective Subjective Date of Service: 11/20/21 Reason For Visit: Psychosis Subjective Notes: Conditional Voluntary Interim History: The nursing staff reported the patient has been fully compliant with treatment, she has attended a few groups but her participation is minimally. Yesterday the patient had therapy reported that she was smiling and laughing in the group appropriately. On interview the patient denies new symptoms she feels comfortable with Zyprexa 5 mg p.o. q.h.s. Mental Status Exam Mental Status Exam Patient Appearance: Well Grooomed Patient Orientation: Person, Place, Time and Situation Level of Consciousness: Awake Patient Behavior: Cooperative Mood Description: Calm Affect Description: Calm Patient Cognition Impaired: Yes Ability to Follow Directions: Good Speech Pattern: Clear Hallucinations: None Delusions: Not Present Thought Process: Linear Thought Content: positive for Arco Judgement: Fair Diagnostics Vital Signs (24Hr): Vital Signs - 24 hr 11/19/21 18:00 11/20/21 08:05 Temperature 97.8 F 97 F Pulse Rate 78 68 Respiratory Rate 18 14 Blood Pressure 138/69 139/62 Pulse Oximetry 96 97 Oxygen Delivery Method Room Air Room Air BMI result Body Mass Index 25.3 Labs Results: 11/11/21 06:56 11/12/21 08:17 Medications Medications Current Medications Acetaminophen (Acetaminophen 325 Mg Tablet) 650 mg PO Q6H PRN PRN Reason: Headache/Pain Mild Scale (1-3) Al Hydroxide/Mg Hydroxide (Magnesium Hydrox/Alum Hydrox 30 Ml Oral.Susp) 30 ml PO Q6H PRN PRN Reason: Heartburn/Nausea Amlodipine Besylate (Amlodipine Besylate 5 Mg Tablet) 5 mg PO DAILY COUNT INCLUDES THE [facility]; Protocol Last Admin: 11/20/21 08:27 Dose: 5 mg Aspirin (Aspirin Enteric Coated 81 Mg Tablet.) 81 mg PO DAILY COUNT INCLUDES THE [facility] Last Admin: 11/20/21 08:27 Dose: 81 mg Carvedilol (Carvedilol 6.25 Mg Tablet) 6.25 mg PO BID COUNT INCLUDES THE [facility]; Protocol Last Admin: 11/20/21 08:28 Dose: 6.25 mg Clopidogrel Bisulfate (Clopidogrel Bisulfate 75 Mg Tablet) 75 mg PO DAILY COUNT INCLUDES THE [facility] Last Admin: 11/20/21 08:28 Dose: 75 mg Donepezil HCl (Donepezil Hcl 5 Mg Tablet) 5 mg PO BEDTIME COUNT INCLUDES THE [facility] Last Admin: 09/14/22 19:57 Dose: 5 mg Furosemide (Furosemide 40 Mg Tablet) 40 mg PO DAILY COUNT INCLUDES THE [facility]; Protocol Last Admin: 11/20/21 08:27 Dose: 40 mg Hydroxyzine HCl (Hydroxyzine Hcl 25 Mg Tablet) 25 mg PO Q6H PRN PRN Reason: Anxiety Lisinopril (Lisinopril 10 Mg Tablet) 10 mg PO BID COUNT INCLUDES THE [facility]; Protocol Last Admin: 11/20/21 08:27 Dose: 10 mg Magnesium Hydroxide (Milk Of Magnesia 30 Ml Oral.Susp) 30 ml PO DAILY PRN PRN Reason: Constipation Magnesium Oxide (Magnesium Oxide 400 Mg Tablet) 400 mg PO DAILY COUNT INCLUDES THE [facility] Last Admin: 11/20/21 08:28 Dose: 400 mg Multivitamins/Vitamin C (Multivitamin Tablet) 1 tab PO DAILY COUNT INCLUDES THE [facility] Last Admin: 11/20/21 08:28 Dose: 1 tab Olanzapine (Olanzapine 5 Mg Tablet) 5 mg PO BEDTIME COUNT INCLUDES THE [facility] Last Admin: 11/19/21 19:57 Dose: 5 mg Omeprazole (Omeprazole 20 Mg Capsule.Dr) 20 mg PO DAILY@0630 COUNT INCLUDES THE [facility] Last Admin: 11/20/21 06:17 Dose: 20 mg Potassium Chloride (Potassium Chloride Er 10 Meq Capsule.Er) 10 meq PO DAILY COUNT INCLUDES THE [facility] Last Admin: 11/20/21 08:27 Dose: 10 meq Trazodone HCl (Trazodone Hcl 50 Mg Tablet) 50 mg PO BEDTIME PRN PRN Reason: Insomnia Vitamin D (Cholecalciferol (Vitamin D3) 25 Mcg Tablet) 25 mcg PO DAILY COUNT INCLUDES THE [facility] Last Admin: 11/20/21 08:27 Dose: 25 mcg Allergies Allergies Allergy/AdvReac Type Severity Reaction Status Date / Time haloperidol [From Haldol] AdvReac Numbness Verified 11/07/21 18:05 Assessment & Plan Assessment & Plan (1) Schizoaffective disorder, bipolar type: Status: Acute Code(s): F25.0 - Schizoaffective disorder, bipolar type Plan The patient is an elderly female with a long history of psychosis and mood lability, admitted for psychotic disc decompensation in the context of noncompliance. This is not the 1st admission that she had with a similar presentation. Plan 1. Gather collateral information. 2. We discussed risks, benefits, side-effects and alternatives and she agreed to restart Zyprexa, at this moment Zyprexa 5 mg at night. 3. Medical consult. 4. Affirmation of healthcare proxy is not going to be possible at this moment since the patient has capacity at this moment I spent __20____ minutes with the patient and/or on the patient floor today, greater than?50% of which was spent counseling/coordinating care. Reason for contiued inpatient stay Substantial Risk for: inability to function, rapid decompensation and med/psych decompensation
[2021-11-20 18:00] VITALS: BP 135/68; PULSE 71; RESP 17; TEMP 36; O2SAT 97
[2021-11-20] MEDS: OLANZapine 5 MG TABLET PO (20:20)
[2021-11-20] MEDS: Donepezil HCl 5 MG TABLET PO (20:20)
[2021-11-21 06:00] VITALS: BP 173/77; PULSE 68; RESP 14; TEMP 36.3; O2SAT 96
[2021-11-21] MEDS: Omeprazole 20 MG CAPSULE.DR PO (06:32)
--- NOTE | 2021-11-21 08:02 | PM.PSYDC ---
DS: Providers Provider Date of Service: 11/21/21 Date of admission: 11/11/21 14:14 Date of discharge: 11/21/21 Primary care physician: Garrison eBatty MD DS: Diagnosis Discharge Diagnosis (1) Schizoaffective disorder, bipolar type: Status: Acute DS: Medications Discharge Medications Home Medications: Home Medications Medication Instructions Recorded Confirmed amlodipine 5 mg tablet 1 tab PO DAILY 11/07/21 11/07/21 aripiprazole 2 mg tablet 1 tab PO BEDTIME 11/07/21 11/07/21 carvedilol 6.25 mg tablet 1 tab PO BID 11/07/21 11/07/21 clopidogrel 75 mg tablet 1 tab PO DAILY 11/07/21 11/07/21 donepezil 5 mg tablet (Aricept) 1 tab PO BEDTIME 11/07/21 11/07/21 furosemide 40 mg tablet 1 tab PO DAILY 11/07/21 11/07/21 lisinopril 10 mg tablet 1 tab PO BID 11/07/21 11/07/21 pantoprazole 40 mg tablet,delayed 1 tab PO DAILY 11/07/21 11/07/21 release potassium chloride 10 mEq 1 cap PO DAILY 11/07/21 11/07/21 capsule,extended release Previous Rx's Medication Instructions Recorded cholecalciferol (vitamin D3) 25 25 mcg PO DAILY 30 days #30 tabs 09/17/21 mcg (1,000 unit) tablet magnesium oxide 400 mg (241.3 mg 400 mg PO DAILY 30 days #30 tabs 09/17/21 magnesium) tablet multivitamin (Daily-Brielle tablet) 1 tab PO DAILY 30 days #30 tabs 09/17/21 Mental Status Exam Mental Status Exam Patient Appearance: Well Grooomed Patient Orientation: Person Level of Consciousness: Awake Patient Behavior: Cooperative Mood Description: Constricted Affect Description: Calm Patient Cognition Impaired: Yes Ability to Follow Directions: Good Speech Pattern: Clear Hallucinations: None Delusions: Paranoid Ideation Thought Process: Linear Thought Content: positive for Circumstantial Judgement: Fair Data Data Completed and Pending Completed studies during hospitalization [Text1]: 11/14/21 11/16/21 11/18/21 21:08 07:46 08:01 POC Glucose 123 H 107 Estimat Average Glucose 114 Hemoglobin A1c % 5.6 11/11/21 Unknown Urine clean catch - Urine miller top Urine Culture - Final DS: Summary Hospital Course Hospital Course: The patient was admitted for exacerbation of psychotic symptoms in the context of noncompliance. Please see the HPI note for further details. the patient carries a diagnosis of schizoaffective disorder depressed type. The patient is very well known by the services she has been admitted at least 3 times for the same problem. The patient has tried several antipsychotics And she always complains of side-effects. On the last admission a few months ago, she was discharged with Zyprexa and later on her outpatient provider changed to Abilify but she stop with the leg in side effects. Historically, the patient has tried Risperdal, Haldol, Zyprexa and Abilify and she is very sensitive, at certain point, when she was with Haldol she had an acute dystonic reaction. On admission we discussed risks, benefits, side-effects and alternatives and so far according to her, Zyprexa has been the drug that has worked better for her with the least side effects. We started Zyprexa titrated up to 5 mg p.o. q.h.s. with improvement of her paranoia. She since the patient was much better, discharge planning was discussed. No safety concerns at this moment. On this admission with provide a Rice test and she scored doing the 5/30 and her Anselmo test was 5.0. Time spent discussing smoking cessation with patient: 3 to 10 minutes Status at Discharge Cognitive/behavioral status at discharge: At baseline Functional status at discharge: independent ambulation Overall status at discharge: patient is back to baseline Time Spent with Patient Time attestation: Total time spent providing and/or coordinating discharge services: Time spent: Less than 30 minutes Discharge Plan Discharge Patient Disposition: Home, Self-Care Discharge Diagnosis: schizoaffective disorder depressed type Referrals: [facility] [Other] - 3-5 Days (Your services at [facility] will resume at time of discharge. Beatrice Katz from the [facility] will call you to schedule home visit next week.) Annette Dalal [Other] - 11/24/21 9:00 am (Your next appointment with your psychiatry provider is on 11/24/21 in person in office at 9:00AM.) Isabel Ruffin [facility] [Other] - 1 Week Garrison Beatty MD [Primary Care Provider] - 1 Week Discharge Medications: New aspirin 81 mg Tablet,Delayed Release (Dr/Ec) 81 mg PO DAILY 30 Days Qty: 30 0RF olanzapine 5 mg Tablet 5 mg PO BEDTIME 30 Days Qty: 30 0RF Continued multivitamin [Daily-Brielle] Tablet 1 tab PO DAILY 30 Days Qty: 30 0RF furosemide 40 mg tablet 1 tab PO DAILY 30 Days Qty: 30 0RF potassium chloride 10 mEq capsule, extended release 1 cap PO DAILY 30 Days Qty: 30 0RF carvedilol 6.25 mg tablet 1 tab PO BID 30 Days Qty: 60 0RF donepezil [Aricept] 5 mg tablet 1 tab PO BEDTIME 30 Days Qty: 30 0RF clopidogrel 75 mg tablet 1 tab PO DAILY 30 Days Qty: 30 0RF amlodipine 5 mg tablet 1 tab PO DAILY 30 Days Qty: 30 0RF magnesium oxide 400 mg (241.3 mg magnesium) Tablet 400 mg PO DAILY 30 Days Qty: 30 0RF pantoprazole 40 mg tablet,delayed release (DR/EC) 1 tab PO DAILY 30 Days Qty: 30 0RF lisinopril 10 mg tablet 1 tab PO BID 30 Days Qty: 60 0RF cholecalciferol (vitamin D3) 25 mcg (1,000 unit) Tablet 25 mcg PO DAILY 30 Days Qty: 30 0RF Discontinued aripiprazole 2 mg tablet 1 tab PO BEDTIME Discharge Orders: Discharge Order (Routine); Ordered 11/21/21 Ordered By: Nirmal Dickinson Diet: Advance to usual diet Activity on Discharge: As tolerated Stand Alone Forms: Patient Portal Discharge page Print Language: Maltese Care Plan Goals: care plan goals achieved in this admission Health Concerns: continue treatment by outpatient providers Plan of Treatment: continue treatment by [facility] Assessment: elderly female with schizoaffective disorder readmitted for noncompliance with treatment. Restarted on Zyprexa, currently stable ready for discharge.
[2021-11-21] MEDS: Furosemide 40 MG TABLET PO (08:06)
[2021-11-21] MEDS: carvediloL 6.25 MG TABLET PO (08:06)
[2021-11-21] MEDS: Clopidogrel Bisulfate 75 MG TABLET PO (08:06)
[2021-11-21] MEDS: Aspirin Enteric Coated 81 MG TABLET.DR PO (08:06)
[2021-11-21] MEDS: lisinopriL 10 MG TABLET PO (08:06)
[2021-11-21] MEDS: Multivitamin TABLET 1 TAB PO (08:06)
[2021-11-21] MEDS: amLODIPine Besylate 5 MG TABLET PO (08:06)
[2021-11-21] MEDS: Cholecalciferol (Vitamin D3) 25 MCG TABLET PO (08:07)
[2021-11-21] MEDS: Magnesium Oxide 400 MG TABLET PO (08:07)
--- NOTE | 2021-11-21 15:34 | PC.NURSE ---
Pt. alert and oriented X 4. Denies depression, anxiety, AH/VH/SI/HI. Reports readiness for discharge and affirms she will take her medications as prescribed. Discharge instructions, follow up appointments, and medications reviewed with pt. and she verbalized understanding. Escorted by foot off unit and to [employer] 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
== END 2021-11-21 13:15 | disposition home or self-care (01) | DRG 885 ==
LOC: HO.ED 11-11 14:15 → HO.PGERI 11-11 14:35
PROVIDERS: Physician Assistant Medical; Psychiatry & Neurology Psychiatry; Student in an Organized Health Care Education/Training Program; Admitting Provider Psychiatry & Neurology Psychiatry; Emergency Provider Emergency Medicine; PCP Internal Medicine; Visit Provider Psychiatry & Neurology Psychiatry
DX: F25.0 Schizoaffective disorder, bipolar type (principal); I25.10 Atherosclerotic heart disease of native coronary artery without angina pectoris; I10 Essential (primary) hypertension; I25.5 Ischemic cardiomyopathy; Z20.822 Contact with and (suspected) exposure to COVID-19; Z91.14 Patient's other noncompliance with medication regimen; Z91.51 Personal history of suicidal behavior; Z95.1 Presence of aortocoronary bypass graft; Z79.02 Long term (current) use of antithrombotics/antiplatelets; Z79.82 Long term (current) use of aspirin; Z79.899 Other long term (current) drug therapy
CPT/HCPCS: 36415; 80053; 80061; 80143; 80179; 80307; 81001; 81003; 82077; 82947; 83036; 83880; 85025; 87086; 87635; 93005; 99285

== ENCOUNTER 2022-01-16 10:18 | Emergency (ER) | payer MEDICARE, SELFPAY ==
--- NOTE | ~2022-01-16 | XR_ITS ---
EXAMINATION: XR CHEST CLINICAL INFORMATION: Shortness of breath COMPARISON: Previous chest x-ray November 2021 TECHNIQUE: Frontal view of the chest was obtained. FINDINGS: The cardiac silhouette does not appear enlarged. There are post-CABG changes. Hilar and mediastinal contours are unremarkable. The lungs are clear. There is no pleural effusion or pneumothorax. There are degenerative changes of the spine. XR/XR chest 1V IMPRESSION: No evidence for acute disease in the chest.
--- NOTE | 2022-01-16 10:22 | ECG_ITS ---
Test Reason : irregular heart beat Blood Pressure : / mmHG Vent. Rate : 072 BPM Atrial Rate : 072 BPM P-R Int : 140 ms QRS Dur : 086 ms QT Int : 416 ms P-R-T Axes : 072 045 117 degrees QTc Int : 455 ms Sinus rhythm with occasional Premature ventricular complexes Left atrial enlargement T wave abnormality, consider anterolateral ischemia ST elevation in Anterolateral leads Abnormal ECG When compared with ECG of 11-NOV-2021 09:46, Premature ventricular complexes are now Present Referred By: Generic ED Physician Electronically Signed By:DIDI LEBLANC MD
[2022-01-16 10:29] VITALS: BP 148/59; PULSE 67; RESP 18; TEMP 36.4; O2SAT 99; BMI 25.6
--- NOTE | 2022-01-16 10:49 | ED_ITS ---
HPI - Female Genitourinary General Chief complaint: Urogenital-Female Stated complaint: SOB/Irregular heartbeat Time Seen by Provider: 01/16/22 10:44 Source: patient Mode of arrival: ambulatory History of Present Illness HPI Narrative: 76-year-old female with a past medical history of CAD, hypertension, ischemic cardiomyopathy, schizoaffective disorder, presenting to the ED complaining of continued dysuria, suprapubic pressure and chills x weeks. Admits has been recently treated for persistent UTI with Levaquin x2 and Cipro without relief. Also reports feels like her heart is skipping with mild SOB. Denies fever, nausea, vomiting, diarrhea, flank pain, hematuria, CP. MD elicited complaint: dysuria and UTI Onset (ago): week(s) Related Data Previous Rx's Medication Instructions Recorded amlodipine 5 mg tablet 1 tab PO DAILY 30 days #30 tabs 11/21/21 aspirin 81 mg tablet,delayed 81 mg PO DAILY 30 days #30 tabs 11/21/21 release carvedilol 6.25 mg tablet 1 tab PO BID 30 days #60 tabs 11/21/21 cholecalciferol (vitamin D3) 25 25 mcg PO DAILY 30 days #30 tabs 11/21/21 mcg (1,000 unit) tablet clopidogrel 75 mg tablet 1 tab PO DAILY 30 days #30 tabs 11/21/21 donepezil 5 mg tablet (Aricept) 1 tab PO BEDTIME 30 days #30 tabs 11/21/21 furosemide 40 mg tablet 1 tab PO DAILY 30 days #30 tabs 11/21/21 lisinopril 10 mg tablet 1 tab PO BID 30 days #60 tabs 11/21/21 magnesium oxide 400 mg (241.3 mg 400 mg PO DAILY 30 days #30 tabs 11/21/21 magnesium) tablet multivitamin (Daily-Brielle tablet) 1 tab PO DAILY 30 days #30 tabs 11/21/21 olanzapine 5 mg tablet 5 mg PO BEDTIME 30 days #30 tabs 11/21/21 pantoprazole 40 mg tablet,delayed 1 tab PO DAILY 30 days #30 tabs 11/21/21 release potassium chloride 10 mEq 1 cap PO DAILY 30 days #30 caps 11/21/21 capsule,extended release phenazopyridine 200 mg tablet 200 mg PO TID PRN pain 6 doses #6 01/16/22 (Pyridium) tabs Allergies Allergy/AdvReac Type Severity Reaction Status Date / Time nitrofurantoin Allergy Unknown Verified 01/16/22 11:00 [From Macrobid] haloperidol [From Haldol] AdvReac Numbness Verified 11/07/21 18:05 Review of Systems Review of Systems: Constitutional: No Fever, No Chills, No Fatigue, No Malaise ENT/Mouth: No Ear Pain, No Nasal Congestion, No sore throat, No Rhinorrhea, No Swallowing Difficulty Eyes: No Eye Pain, No Swelling, No Redness, No Vision Changes Cardiovascular: No Chest Pain, +mild SOB, No Edema, + fluttering/skipping Respiratory: No Cough, No Sputum, No Dyspnea Gastrointestinal: No Nausea, No Vomiting, No Diarrhea, No Constipation, + suprapubic pressure Genitourinary: No Dysuria, No Urinary Frequency, No Hematuria, No Urinary Incontinence/retention, No Urgency, No Flank Pain, No Urinary Flow Changes, No Hesitancy Musculoskeletal: No joint pain, No Myalgias, No Joint Swelling Skin: No Skin Lesions, No rash Neuro: No Weakness, No Dizziness, No Headache Yes all other systems are reviewed and are negative Constitutional: Constitutional: Reports as per [facility] Past Medical History Attestation statement: The following information was validated with the patient. Medical History Coronary artery disease Essential hypertension Ischemic cardiomyopathy Schizoaffective disorder, bipolar type Surgical History S/P CABG (coronary artery bypass graft) Social History Social History Household Members: None Housing: Apartment Do you presently have visiting nurse or other home services: No Patient Tobacco Use Status: Never used Tobacco e-Cigarette/Vaping Use: Never Used Advance Directives: Yes Advance Directives on File: Yes Advance Directives Date on File: 03/06/21 service: No Sexual orientation: Straight/Heterosexual Physical Exam Vital Signs: Vital Signs: Last Vital Signs Temp 97.5 F 01/16/22 10:29 Pulse 67 01/16/22 10:29 Resp 18 01/16/22 10:29 BP 148/59 H 01/16/22 10:29 Pulse Ox 99 01/16/22 10:29 O2 Del Method 01/16/22 10:29 BMI result Body Mass Index 25.6 Const: General: cooperative, healthy appearing and no acute distress Orientation/consciousness: patient oriented x3 Limitations: no limitations HEENT: Head: Yes normal to inspection and Yes atraumatic Ears: hearing grossly normal bilaterally General nose exam: Normal external nose present Face and sinus: Yes normal facial exam Eyes: General: appearance normal, both eyes and all related structures EOM: EOMs intact bilaterally Neck: Neck: Yes normal visual inspection and Yes no meningeal signs Resp: Effort & Inspection: normal respiratory effort and no respiratory distress Auscultation: clear to auscultation bilaterally Cardio: Rate: regular rate Heart sounds: S1 normal heart sound present and S2 normal heart sound present GI: Inspection: Yes normal to inspection Palpation (GI): Soft to palpation, nontender, no guarding and not rigid : General: Yes no CVA tenderness Back/Spine/Pelvis: Back: no CVA tenderness Skin: Rashes: no rashes Wounds: no wounds Neuro: General: patient oriented x3, tone normal and no meningeal signs Gait exam (Neuro): Normal gait present Extrem: General: Yes normal to inspection Course Course Course Narrative: -1237--no leukocytosis. Renal function WNL. Initial troponin 10.4 (elevated priors) > will obtain 3 hour repeat -UA not infected, no blood XR chest 1V IMPRESSION: No evidence for acute disease in the chest. -1525-- repeat troponin equivocal, CT unlikely Results discussed with patient including worrisome signs and symptoms and strict return precautions, and when to return to the emergency department. They verbalized understanding and feel safe for discharge at this time. Medications Administered Discontinued Medications Generic Name Dose Route Start Last Admin Trade Name Freq PRN Reason Stop Dose Admin Phenazopyridine HCl 100 mg 01/16/22 12:42 01/16/22 12:54 Phenazopyridine Hcl 100 Mg Tablet PO 01/16/22 12:43 100 mg ONCE ONE Administration MDM - Female Genitourinary MDM Narrative Medical decision making narrative: 76-year-old female with a past medical history of CAD, hypertension, ischemic cardiomyopathy, schizoaffective disorder, presenting to the ED complaining of continued dysuria, suprapubic pressure and chills x weeks. On exam vital signs stable, NAD, nontoxic appearing, abdomen soft and nontender, no CVA tenderness. Lungs CTA. Concern for UTI vs cystitis. Lower suspicion for pyelo, renal stone, appendicitis or diverticulitis. Concern for arrhythmia vs anxiety. Lower suspicion for ACS/PE Plan: EKG, labs, UA, CXR Differential Diagnosis Differential diagnosis: Likely urinary tract infection, vaginitis and cystitis Medical Records Attestation: I reviewed the patient's medical records. Lab Data Attestation: I reviewed the patient's lab results. Result diagrams: 01/16/22 11:24 01/16/22 11:24 Labs: Lab Results 01/16/22 01/16/22 01/16/22 Range/Units 10:37 11:24 11:24 WBC 6.8 (4.8-10.8) X10*3/uL RBC 4.57 (4.20-5.50) X10*6/uL Hgb 13.6 (12.0-16.0) g/dl Hct 40.0 (37.0-47.0) % MCV 87.5 (80.0-98.0) fL MCH 29.8 (27.0-33.0) pg MCHC 34.0 (31.0-35.0) g/dl RDW 12.1 (11.0-16.0) % Plt Count 346 (160-400) X10*3/uL MPV 9.9 (9.4-12.3) fL Immature Gran % (Auto) 0.3 (0.0-0.4) % Neut % (Auto) 63.8 (45-73) % Lymph % (Auto) 25.2 (20-40) % [place] % (Auto) 9.4 (2-11) % Eos % (Auto) 0.6 (0-4) % Baso % (Auto) 0.7 (0-2) % Lymph # (Auto) 1.7 (1.2-4.9) X10*3/uL [place] # (Auto) 0.6 (0.1-1.2) X10*3/uL Eos # (Auto) 0.0 (0.0-0.4) X10*3/uL Baso # (Auto) 0.1 (0.0-0.2) X10*3/uL Abs Immat Gran (auto) 0.02 (0.00-0.03) X10*3/uL Absolute Neuts (auto) 4.3 (2.0-8.3) x10*3/uL Absolute Nucleated RBC 0.000 (0.0-0.012) X10*3/uL Nucleated RBC % (auto) 0.0 (0.0-0.2) /100WBC Sodium 137 (135-145) mmol/L Potassium 4.3 (3.3-5.1) mmol/L Chloride 99 (96-108) mmol/L Carbon Dioxide 24 (22-29) mmol/L Anion Gap 18 (12-20) BUN 14 (9-16) mg/dL Creatinine 0.81 (0.5-1.4) mg/dL Estim Creat Clear Calc 51.7 Estimated GFR > 60 Random Glucose 105 (60-115) mg/dL Calcium 10.5 H (8.4-10.2) mg/dL Magnesium 1.8 (1.6-2.6) mg/dL Total Bilirubin 0.7 (0.0-1.0) mg/dL Direct Bilirubin 0.2 (0.0-0.5) mg/dL AST 21 (5-31) U/L ALT 17 (0-31) U/L Alkaline Phosphatase 87 (39-117) U/L Troponin I High Sens (<3.5-17.0) ng/L Total Protein 7.4 (6.5-8.0) g/dL Albumin 4.6 (3.5-5.0) g/dL Urine Color Yellow Urine Appearance Clear Urine pH 7.5 (5.0-9.0) Ur Specific [place] <= 1.005 (1.005-1.025) Urine Protein Negative (Neg-Trace) mg/dL Urine Glucose (UA) Negative (Negative) mg/dL Urine Ketones Negative (Negative) mg/dL Urine Blood Negative (Negative) Urine Nitrite Negative (Negative) Ur Leukocyte Esterase Negative (Negative) 01/16/22 01/16/22 Range/Units 11:24 14:32 WBC (4.8-10.8) X10*3/uL RBC (4.20-5.50) X10*6/uL Hgb (12.0-16.0) g/dl Hct (37.0-47.0) % MCV (80.0-98.0) fL MCH (27.0-33.0) pg MCHC (31.0-35.0) g/dl RDW (11.0-16.0) % Plt Count (160-400) X10*3/uL MPV (9.4-12.3) fL Immature Gran % (Auto) (0.0-0.4) % Neut % (Auto) (45-73) % Lymph % (Auto) (20-40) % [place] % (Auto) (2-11) % Eos % (Auto) (0-4) % Baso % (Auto) (0-2) % Lymph # (Auto) (1.2-4.9) X10*3/uL [place] # (Auto) (0.1-1.2) X10*3/uL Eos # (Auto) (0.0-0.4) X10*3/uL Baso # (Auto) (0.0-0.2) X10*3/uL Abs Immat Gran (auto) (0.00-0.03) X10*3/uL Absolute Neuts (auto) (2.0-8.3) x10*3/uL Absolute Nucleated RBC (0.0-0.012) X10*3/uL Nucleated RBC % (auto) (0.0-0.2) /100WBC Sodium (135-145) mmol/L Potassium (3.3-5.1) mmol/L Chloride (96-108) mmol/L Carbon Dioxide (22-29) mmol/L Anion Gap (12-20) BUN (9-16) mg/dL Creatinine (0.5-1.4) mg/dL Estim Creat Clear Calc Estimated GFR Random Glucose (60-115) mg/dL Calcium (8.4-10.2) mg/dL Magnesium (1.6-2.6) mg/dL Total Bilirubin (0.0-1.0) mg/dL Direct Bilirubin (0.0-0.5) mg/dL AST (5-31) U/L ALT (0-31) U/L Alkaline Phosphatase (39-117) U/L Troponin I High Sens 10.4 11.9 (<3.5-17.0) ng/L Total Protein (6.5-8.0) g/dL Albumin (3.5-5.0) g/dL Urine Color Urine Appearance Urine pH (5.0-9.0) Ur Specific [place] (1.005-1.025) Urine Protein (Neg-Trace) mg/dL Urine Glucose (UA) (Negative) mg/dL Urine Ketones (Negative) mg/dL Urine Blood (Negative) Urine Nitrite (Negative) Ur Leukocyte Esterase (Negative) ECG Data Attestation: I personally reviewed and interpreted this ECG as follows: ECG interpretation date: 01/16/22 ECG interpretation time: 10:23 Prior ECG tracings: available for review Interpretation: EKG sinus rhythm with PVCs at a rate of 72. QTC 455. No STEMI. Discharge Plan Discharge Clinical Impression: Cystitis Patient Disposition: Home, Self-Care Instructions: Dysuria (ED) Additional Instructions: your urine is not infected. We will send the urine culture, you probably have cystitis. Pyridium will help with the symptoms make sure to drink plenty of fluids. your EKG did show premature ventricular complexes, please follow-up with cardiology. Your heart enzyme and chest x-ray were reassuring. If you develop chest pain, shortness of breath, persistent burning when you pee, blood in your urine, abdominal pain return to the emergency department. Prescriptions: New phenazopyridine [Pyridium] 200 mg tablet 200 mg PO TID PRN (Reason: pain) Qty: 6 0RF No Action aspirin 81 mg Tablet,Delayed Release (Dr/Ec) 81 mg PO DAILY 30 Days Qty: 30 0RF olanzapine 5 mg Tablet 5 mg PO BEDTIME 30 Days Qty: 30 0RF multivitamin [Daily-Brielle] Tablet 1 tab PO DAILY 30 Days Qty: 30 0RF furosemide 40 mg tablet 1 tab PO DAILY 30 Days Qty: 30 0RF potassium chloride 10 mEq capsule, extended release 1 cap PO DAILY 30 Days Qty: 30 0RF carvedilol 6.25 mg tablet 1 tab PO BID 30 Days Qty: 60 0RF donepezil [Aricept] 5 mg tablet 1 tab PO BEDTIME 30 Days Qty: 30 0RF clopidogrel 75 mg tablet 1 tab PO DAILY 30 Days Qty: 30 0RF amlodipine 5 mg tablet 1 tab PO DAILY 30 Days Qty: 30 0RF magnesium oxide 400 mg (241.3 mg magnesium) Tablet 400 mg PO DAILY 30 Days Qty: 30 0RF pantoprazole 40 mg tablet,delayed release (DR/EC) 1 tab PO DAILY 30 Days Qty: 30 0RF lisinopril 10 mg tablet 1 tab PO BID 30 Days Qty: 60 0RF cholecalciferol (vitamin D3) 25 mcg (1,000 unit) Tablet 25 mcg PO DAILY 30 Days Qty: 30 0RF Referrals: [facility] Cardiovascular Services [Provider Group] [facility] Urology Services [Provider Group]
[2022-01-16 10:58] LABS: Appearance Urine Clear; Color Urine Yellow; Glucose Urine UA Negative (Negative); Leukocyte Esterase Urine Negative (Negative); Nitrite Urine Negative (Negative); PH 7.5 (5.0-9.0); Specific Gravity - Urine <= 1.005 (1.005-1.025); Urine Blood Negative (Negative); Urine Ketones Negative (Negative); Urine Protein Negative (Neg-Trace)
[2022-01-16 11:30] LABS: MANUAL DIFF FLAG NO
[2022-01-16 11:32] LABS: Basophils Absolute Auto 0.1 X10*3/uL (0.0-0.2); Basophils Percent Auto 0.7 % (0-2); Eosinophils Percent Auto 0.6 % (0-4); Hemoglobin 13.6 g/dl (12.0-16.0); Imm Gran Abs Auto 0.02 X10*3/uL (0.00-0.03); Imm Gran Pct Auto 0.3 % (0.0-0.4); Lymphocytes Absolute Auto 1.7 X10*3/uL (1.2-4.9); Lymphocytes Percent Auto 25.2 % (20-40); Mean Corpuscular Hemoglobin 29.8 pg (27.0-33.0); Mean Corpuscular Volume 87.5 fL (80.0-98.0); Mean Platelet Volume 9.9 fL (9.4-12.3); Monocytes Absolute Auto 0.6 X10*3/uL (0.1-1.2); Monocytes Percent Auto 9.4 % (2-11); Neutrophils Absolute Auto 4.3 x10*3/uL (2.0-8.3); Neutrophils Percent Auto 63.8 % (45-73); Platelet Count 346 X10*3/uL (160-400); Red Blood Count 4.57 X10*6/uL (4.20-5.50); Red Cell Distribution Width 12.1 % (11.0-16.0); White Blood Count 6.8 X10*3/uL (4.8-10.8)
[2022-01-16 11:49] LABS: Alanine Aminotransferase 17 U/L (0-31); Albumin Level 4.6 g/dL (3.5-5.0); Alkaline Phosphatase 87 U/L (39-117); Anion Gap 18 (12-20); Aspartate Amino Transferase 21 U/L (5-31); Bilirubin Direct 0.2 mg/dL (0.0-0.5); Bilirubin Total 0.7 mg/dL (0.0-1.0); Blood Urea Nitrogen 14 mg/dL (9-16); Calcium 10.5 mg/dL (8.4-10.2); Carbon Dioxide 24 mmol/L (22-29); Chloride 99 mmol/L (96-108); Creatinine Clr Calc Pharmacy 51.7; Estimated Glomerular Filt Rate > 60; Glucose Random 105 mg/dL (60-115); Magnesium 1.8 mg/dL (1.6-2.6); Potassium 4.3 mmol/L (3.3-5.1); Sodium 137 mmol/L (135-145); Total Protein 7.4 g/dL (6.5-8.0)
[2022-01-16 11:53] LABS: Troponin-I High Sensitivity 10.4 ng/L (<3.5-17.0)
[2022-01-16] MEDS: Phenazopyridine HCL 100 MG TABLET PO (12:54)
[2022-01-16 15:02] LABS: Troponin-I High Sensitivity 11.9 ng/L (<3.5-17.0)
== END 2022-01-16 16:00 | disposition home or self-care (01) ==
PROVIDERS: Physician Assistant; Emergency Provider Emergency Medicine; PCP Internal Medicine
DX: R30.0 Dysuria (principal); N30.90 Cystitis, unspecified without hematuria; R06.02 Shortness of breath; I25.10 Atherosclerotic heart disease of native coronary artery without angina pectoris; Z79.899 Other long term (current) drug therapy
CPT/HCPCS: 36415; 71045; 80048; 80076; 81003; 83735; 84484; 85025; 93005; 99283; 99284

== ENCOUNTER 2022-02-09 18:54 | Inpatient (IN) | payer MEDICARE, SELFPAY ==
--- NOTE | ~2022-02-09 | CT_ITS ---
EXAMINATION: CT ANGIOGRAM OF THE CHEST WITH AND WITHOUT CONTRAST (CT PULMONARY ANGIOGRAM FOR PE) CLINICAL INFORMATION: Reason for Exam + dimer. sob COMPARISON: Chest radiograph earlier this evening TECHNIQUE: Prior to contrast administration, noncontrast localization images were obtained. Subsequently, multidetector volumetric imaging was performed from the thoracic inlet to below the diaphragms following the administration of 65 mL Omnipaque 350 intravenous contrast. No contrast reaction reported Sagittal, coronal, and MIP oblique sagittal reformatted images were obtained on the CT workstation, uploaded to PACS, and reviewed. This CT examination was performed using dose optimization techniques as appropriate, variously including the following: *Automated exposure control *Adjustment of mA and/or kV according to patient size (this includes techniques or standardized protocols for targeted exams where dose is matched to indication/reason for exam; i.e. extremities or head) *Use of iterative reconstruction technique Total exam dose-length product 243 mGy-cm FINDINGS: QUALITY OF STUDY/CONTRAST BOLUS: Satisfactory. PULMONARY ARTERIES: No central or segmental pulmonary emboli. THORACIC AORTA: No aneurysm or dissection. LUNG: No focal consolidation, nodules or masses. PLEURA: No pleural effusion or pneumothorax. MEDIASTINUM: Status post median sternotomy and probable CABG. Normal heart size. Possible left ventricular hypertrophy. Severe coronary artery calcification present. No pericardial effusion. No hilar or mediastinal lymphadenopathy. No evidence of septal bowing or right heart strain. CHEST WALL/AXILLA: No axillary or internal mammary lymphadenopathy. OSSEOUS STRUCTURES: No acute or suspicious osseous abnormality. Degenerative changes are present throughout the spine. UPPER ABDOMEN: Unremarkable. There is reflux of contrast into the hepatic veins suggesting elevated right heart pressures. CT/CT angio chest PE protocol IMPRESSION: 1. No evidence of pulmonary emboli. 2. Reflux of contrast into the hepatic veins suggesting elevated right heart pressures VTE: negative
--- NOTE | ~2022-02-09 | XR_ITS ---
EXAMINATION: XR CHEST CLINICAL INFORMATION: Shortness of breath COMPARISON: Chest x-ray 01/16/2022 TECHNIQUE: Frontal portable view of the chest was obtained. 2000 hours FINDINGS: Status post median sternotomy. Heart size is normal. There are vascular calcifications of aorta. Lungs are normally aerated. No pulmonary vascular congestion. No pleural effusion or pneumothorax. XR/XR chest 1V IMPRESSION: Unremarkable examination.
--- NOTE | ~2022-02-09 | CT_ITS ---
EXAMINATION: CT HEAD WITHOUT CONTRAST CLINICAL INFORMATION: Dizziness COMPARISON: 11/18/2008 TECHNIQUE: Contiguous axial imaging was performed from the skull base to vertex without intravenous administration of contrast. This CT examination was performed using dose optimization techniques as appropriate, variously including the following: *Automated exposure control *Adjustment of mA and/or kV according to patient size (this includes techniques or standardized protocols for targeted exams where dose is matched to indication/reason for exam; i.e. extremities or head) *Use of iterative reconstruction technique DLP: 585 mGy-cm FINDINGS: There is no evidence of acute intracranial hemorrhage or territorial infarction. No abnormal mass effect or midline shift is seen. Jesus to white matter differentiation is well preserved. No extra-axial fluid collections are identified. No hydrocephalus. Tiny chronic infarct involving the parasagittal left postcentral gyrus. Proportional prominence of the ventricles and sulcal spaces is consistent with mild volume loss. Patchy periventricular and deep white matter hypoattenuation is consistent with mild small vessel ischemic changes. Tiny lacunar infarcts involving the bilateral caudate bodies. Partially empty sella. No acute osseous or soft tissue abnormality. The mastoid air cells and visualized portions of the paranasal sinuses are well aerated. CT/CT head/brain wo IV con IMPRESSION: No acute intracranial pathology. Small chronic infarcts and mild white matter small vessel ischemic changes, unchanged.
[2022-02-09 19:02] VITALS: BP 133/67; BP 142/80; PULSE 78; PULSE 82; RESP 13; TEMP 36.9; O2SAT 96; O2SAT 98; BMI 24.3
[2022-02-09 19:24] VITALS: BP 133/67; PULSE 80; RESP 18; TEMP 36.9; O2SAT 98
--- NOTE | 2022-02-09 19:48 | ECG_ITS ---
Test Reason : SOB/DIZZINESS Blood Pressure : / mmHG Vent. Rate : 082 BPM Atrial Rate : 082 BPM P-R Int : 150 ms QRS Dur : 092 ms QT Int : 408 ms P-R-T Axes : 074 060 070 degrees QTc Int : 476 ms Sinus rhythm with frequent Premature ventricular complexes Possible Left atrial enlargement Minimal voltage criteria for LVH, may be normal variant ( Starford product ) T wave abnormality, consider anterior ischemia Prolonged QT Abnormal ECG When compared with ECG of 16-JAN-2022 10:23, T wave inversion less evident in Lateral leads Referred By: Juan Pro Electronically Signed By:RADHA SALAZAR MD
--- NOTE | 2022-02-09 20:10 | ED_ITS ---
HPI - General Adult General Chief complaint: Dyspnea Stated complaint: Dizziness/SOB Time Seen by Provider: 02/09/22 19:47 Source: patient and EMS Mode of arrival: EMS Limitations: other (Poor historian) History of Present Illness HPI narrative: This is a 76-year-old female history of schizoaffective disorder, bipolar type, CAD, hypertension, ischemic cardiomyopathy, presenting to the emergency department with shortness of breath, dizziness x1 day. Patient tells me both the symptoms started suddenly when she was walking. She tells me she is short of breath both with exertion and at rest. Patient tells me she has never short of breath, she tells me that she does not wear oxygen at home. Patient describes dizziness as lightheadedness, tells me she does not feel like the room is spinning. Patient tells me symptoms have improved significantly however still lingering. Reports some anxiety and paranoia not sure if this is contributing to her symptoms. Patient denies chest pain, nausea, vomiting, abd ominal pain, headache, vision changes, dizziness, weakness, lower extremity pain or swelling, trauma. Related Data Previous Rx's Medication Instructions Recorded amlodipine 5 mg tablet 1 tab PO DAILY 30 days #30 tabs 11/21/21 aspirin 81 mg tablet,delayed 81 mg PO DAILY 30 days #30 tabs 11/21/21 release carvedilol 6.25 mg tablet 1 tab PO BID 30 days #60 tabs 11/21/21 cholecalciferol (vitamin D3) 25 25 mcg PO DAILY 30 days #30 tabs 11/21/21 mcg (1,000 unit) tablet clopidogrel 75 mg tablet 1 tab PO DAILY 30 days #30 tabs 11/21/21 donepezil 5 mg tablet (Aricept) 1 tab PO BEDTIME 30 days #30 tabs 11/21/21 furosemide 40 mg tablet 1 tab PO DAILY 30 days #30 tabs 11/21/21 lisinopril 10 mg tablet 1 tab PO BID 30 days #60 tabs 11/21/21 magnesium oxide 400 mg (241.3 mg 400 mg PO DAILY 30 days #30 tabs 11/21/21 magnesium) tablet multivitamin (Daily-Brielle tablet) 1 tab PO DAILY 30 days #30 tabs 11/21/21 olanzapine 5 mg tablet 5 mg PO BEDTIME 30 days #30 tabs 11/21/21 pantoprazole 40 mg tablet,delayed 1 tab PO DAILY 30 days #30 tabs 11/21/21 release potassium chloride 10 mEq 1 cap PO DAILY 30 days #30 caps 11/21/21 capsule,extended release phenazopyridine 200 mg tablet 200 mg PO TID PRN pain 6 doses #6 01/16/22 (Pyridium) tabs Allergies Allergy/AdvReac Type Severity Reaction Status Date / Time nitrofurantoin Allergy Unknown Verified 01/16/22 11:00 [From Macrobid] haloperidol [From Haldol] AdvReac Numbness Verified 11/07/21 18:05 Review of Systems Review of Systems: Constitutional : No Weight loss, No Fever, No Chills, No Fatigue, No Malaise ENT/Mouth : No sore throat, No Rhinorrhea Eyes: No Eye Pain, No Swelling, No Redness Cardiovascular : No Chest Pain, + SOB, No Dyspnea on Exertion, No Orthopnea, No Edema, No Palpitations Respiratory : No Cough, No Sputum, No Wheezing Gastrointestinal : No Nausea, No Vomiting, No Diarrhea, No Constipation, No abdominal Pain, No Hematochezia, No Melena Genitourinary : No Dysuria, No Urinary Frequency, No Hematuria, Musculoskeletal : No joint pain, No Myalgias, No Joint Swelling Skin : No Skin Lesions, No rash Neuro : No Weakness, No Numbness, + Dizziness, No Headache Psych : + Anxiety/Panic, No Depression, + paranoia All other systems reviewed and are negative Yes all other systems are reviewed and are negative [facility] Past Medical History Attestation statement: The following information was validated with the patient. Source: old records reviewed and nursing notes reviewed Medical History Coronary artery disease Essential hypertension Ischemic cardiomyopathy Schizoaffective disorder, bipolar type Surgical History S/P CABG (coronary artery bypass graft) Social History Social History Household Members: None Housing: Apartment Do you presently have visiting nurse or other home services: No Patient Tobacco Use Status: Never used Tobacco e-Cigarette/Vaping Use: Never Used Advance Directives: Yes Advance Directives on File: Yes Advance Directives Date on File: 03/06/21 service: No Sexual orientation: Straight/Heterosexual Physical Exam ED Vital Signs: Vital Signs - 24 hr 02/09/22 19:02 02/09/22 19:24 02/09/22 20:22 Temperature 98.4 F 98.4 F 98.4 F Pulse Rate 78 80 82 Respiratory Rate 13 18 18 Blood Pressure 133/67 133/67 172/97 H Pulse Oximetry 98 98 99 Oxygen Delivery Method Room Air Room Air Room Air 02/09/22 21:32 02/09/22 22:06 02/09/22 23:29 Temperature 98.6 F 98.4 F Pulse Rate 77 74 67 Respiratory Rate 15 16 16 Blood Pressure 139/79 160/76 H 135/58 L Pulse Oximetry 98 99 99 Oxygen Delivery Method Room Air Room Air Room Air 02/10/22 02:17 Temperature 98.7 F Pulse Rate 84 Respiratory Rate 16 Blood Pressure 139/86 Pulse Oximetry 97 Oxygen Delivery Method Room Air BMI result Body Mass Index 24.3 Vital signs stable Appearance: Alert.? Oriented X3.? No acute distress.? Head: Normocephalic, atraumatic, no step-offs or deformities Eyes: Pupils equal, round and reactive to light.? Neck: Normal inspection.? Neck supple.? CVS: Normal heart rate and rhythm.? Pulses normal.? Respiratory: No respiratory distress.? Breath sounds normal.? Abdomen: Soft and nontender.? Skin: Skin warm and dry.? Normal skin color.? Normal skin turgor.? Extremities: No lower extremity edema.? No calf ttp,negative amando b/l. 5/5 strength to bilateral upper and lower extremities Back: No midline tenderness, no C-spine tenderness, full range of motion, no CVA tenderness bilaterally Neuro: Oriented X 3.? No motor deficit.? No sensory deficit. CN 2-12 intact. Normal [id number], [id number], steady tandem gait with normal coordination Course Course Course Narrative: I did speak to patient's son who reports that patient has been exhibiting a retic behavior at home has been leaving bizarre voice mails to family on multiple occasions, not making sense. They report that mother lives alone by herself, she is supposed to take psychiatric medications however she is non med compliant. She has had multiple admissions into the psychiatric unit she has a history of schizoaffective disorder according to son. Son is very concerned that mother's in an acute crisis as she has been reaching out to family members at weird hours of night and saying things that do not make sense. Reevaluation(s) Reevaluation #1: CBC with no acute findings. Chemistry with no acute findings requiring intervention. Troponin slightly elevated 20.2, however patient without ischemic changes on EKG ( EKG w/ NSR and PVCs, QT slightly prolonged 408), no complaints of chest pain. Second troponin pending. BNP 232, no signs of fluid overload on imaging and patient does not appear to be in fluid overload on exam (discussed this with who tells me no need for intervention on this at this time hemodynamically stable, no signs of overload on exam, no overload on imaging) . Salicylates, acetaminophen and ethanol negative. CTA of chest with no evidence of pulmonary emboli. Reflux of contrast into hepatic veins suggesting elevated right heart pressure. Head CT with chronic findings however no acute findings. Pending UA, trop, robles. Time: 23:51 Reevaluation #2: Troponin not meeting delta criteria, patient without chest pain unlikely ACS. UA and ROBLES pending. Time: 00:10 Reevaluation #3: At this time patient will be placed into physician observation to allow more time to be evaluated by the behavioral health team. Patient is now complaining of anxiety, paranoia, patient does admit to being non med compliant. At this time placed in observation vital signs stable, not complaining of any medical complaints tells me she is feeling better. Will give Ativan for anxiety. Will continue to monitor. Time: 00:45 Medications Administered Discontinued Medications Generic Name Dose Route Start Last Admin Trade Name Seb PRN Reason Stop Dose Admin Iohexol 100 ml 02/09/22 21:59 02/09/22 21:59 Iohexol 350 Mg/Ml 100 Ml Infus..Btl IV 02/09/22 22:00 75 ml ONCE ONE Administration Lorazepam 0.5 mg 02/10/22 00:42 02/10/22 00:57 Lorazepam 0.5 Mg Tablet PO 02/10/22 00:43 0.5 mg ONCE ONE Administration Medical Decision Making Medical Decision Making MDM Narrative: 1999 76 year old female presents w/ dizziness, shortness of breath, anxiety and paranoia X1 day PE benign. NIHSS negative Likley psych. Unlikely ACS, PE, CHF, PNA, stroke, posterior stroke Plan- medical clearance [facility] consult. Critical Care Time Critical Care Time Critical Care Time: No Discharge Plan Discharge Clinical Impression: Schizoaffective disorder, bipolar type, Dizziness, Shortness of breath, Elevated brain natriuretic peptide (BNP) level, Medical non-compliance Patient Disposition: Still a Patient Prescriptions: No Action aspirin 81 mg Tablet,Delayed Release (Dr/Ec) 81 mg PO DAILY 30 Days Qty: 30 0RF olanzapine 5 mg Tablet 5 mg PO BEDTIME 30 Days Qty: 30 0RF multivitamin [Daily-Brielle] Tablet 1 tab PO DAILY 30 Days Qty: 30 0RF furosemide 40 mg tablet 1 tab PO DAILY 30 Days Qty: 30 0RF potassium chloride 10 mEq capsule, extended release 1 cap PO DAILY 30 Days Qty: 30 0RF carvedilol 6.25 mg tablet 1 tab PO BID 30 Days Qty: 60 0RF donepezil [Aricept] 5 mg tablet 1 tab PO BEDTIME 30 Days Qty: 30 0RF clopidogrel 75 mg tablet 1 tab PO DAILY 30 Days Qty: 30 0RF amlodipine 5 mg tablet 1 tab PO DAILY 30 Days Qty: 30 0RF magnesium oxide 400 mg (241.3 mg magnesium) Tablet 400 mg PO DAILY 30 Days Qty: 30 0RF pantoprazole 40 mg tablet,delayed release (DR/EC) 1 tab PO DAILY 30 Days Qty: 30 0RF lisinopril 10 mg tablet 1 tab PO BID 30 Days Qty: 60 0RF cholecalciferol (vitamin D3) 25 mcg (1,000 unit) Tablet 25 mcg PO DAILY 30 Days Qty: 30 0RF phenazopyridine [Pyridium] 200 mg tablet 200 mg PO TID PRN (Reason: pain) Qty: 6 0RF
[2022-02-09 20:22] VITALS: BP 172/97; PULSE 82; RESP 18; TEMP 36.9; O2SAT 99
[2022-02-09 20:40] LABS: MANUAL DIFF FLAG NO
[2022-02-09 20:48] LABS: Basophils Absolute Auto 0.1 X10*3/uL (0.0-0.2); Basophils Percent Auto 0.7 % (0-2); Eosinophils Absolute Auto 0.1 X10*3/uL (0.0-0.4); Eosinophils Percent Auto 0.7 % (0-4); Hematocrit 40.2 % (37.0-47.0); Hemoglobin 14.2 g/dl (12.0-16.0); Imm Gran Abs Auto 0.02 X10*3/uL (0.00-0.03); Imm Gran Pct Auto 0.2 % (0.0-0.4); Lymphocytes Absolute Auto 2.5 X10*3/uL (1.2-4.9); Lymphocytes Percent Auto 29.9 % (20-40); Mean Corpuscular HGB Conc 35.3 g/dl (31.0-35.0); Mean Corpuscular Hemoglobin 30.2 pg (27.0-33.0); Mean Corpuscular Volume 85.5 fL (80.0-98.0); Mean Platelet Volume 9.9 fL (9.4-12.3); Monocytes Absolute Auto 0.9 X10*3/uL (0.1-1.2); Neutrophils Absolute Auto 4.9 x10*3/uL (2.0-8.3); Neutrophils Percent Auto 57.5 % (45-73); Platelet Count 309 X10*3/uL (160-400); Red Cell Distribution Width 12.3 % (11.0-16.0); White Blood Count 8.5 X10*3/uL (4.8-10.8)
[2022-02-09 20:52] LABS: D Dimer High Sensitivity 241 NG/ML
[2022-02-09 20:55] LABS: COVID-19 Test Negative (Negative); IDNOW Serial# 16C4AD1C
[2022-02-09 20:58] LABS: Alanine Aminotransferase 19 U/L (0-31); Albumin Level 4.4 g/dL (3.5-5.0); Alkaline Phosphatase 77 U/L (39-117); Anion Gap 17 (12-20); Aspartate Amino Transferase 21 U/L (5-31); Bilirubin Total 0.6 mg/dL (0.0-1.0); Blood Urea Nitrogen 23 mg/dL (9-16); Calcium 10.4 mg/dL (8.4-10.2); Carbon Dioxide 18 mmol/L (22-29); Chloride 105 mmol/L (96-108); Creatinine Clr Calc Pharmacy 51.8; Estimated Glomerular Filt Rate > 60; Glucose Random 102 mg/dL (60-115); Magnesium 1.7 mg/dL (1.6-2.6); Potassium 4.1 mmol/L (3.3-5.1); Sodium 136 mmol/L (135-145); Total Protein 7.1 g/dL (6.5-8.0)
[2022-02-09 21:04] LABS: Troponin-I High Sensitivity 20.2 ng/L (<3.5-17.0)
[2022-02-09 21:05] LABS: B Type Natriuretic Peptide 232 pg/mL (<100)
[2022-02-09 21:18] LABS: Acetaminophen LAB < 1 mcg/mL (<30); Ethanol < 10 mg/dL; Salicylate < 5.0 mg/dL (15-30)
[2022-02-09 21:32] VITALS: BP 139/79; PULSE 77; RESP 15; O2SAT 98
[2022-02-09 21:37] LABS: Influenza A PCR NEGATIVE (Negative); Influenza B PCR NEGATIVE (Negative); Resp Syncy Virus RNA Qual PCR NEGATIVE (Negative); SARS COV2 PCR INHOUSE NEGATIVE (Negative)
[2022-02-09] MEDS: iohexoL 350 MG/ML 100 ML INFUS..BTL IV (21:59)
[2022-02-09 22:06] VITALS: BP 160/76; PULSE 74; RESP 16; TEMP 37; O2SAT 99
[2022-02-09 23:29] VITALS: BP 135/58; PULSE 67; RESP 16; TEMP 36.9; O2SAT 99
--- NOTE | 2022-02-09 23:29 | PC.NURSE ---
PT WAS GIVEN HAM SANDWICH AND EZE HERMELINDA FOR SNACK .
[2022-02-10 00:07] LABS: Troponin-I High Sensitivity 23.2 ng/L (<3.5-17.0)
[2022-02-10 00:43] LABS: Troponin-I High Sensitivity 21.2 ng/L (<3.5-17.0)
[2022-02-10] MEDS: LORazepam 0.5 MG TABLET PO (00:57)
[2022-02-10 01:20] LABS: Appearance Urine Clear; Color Urine Yellow; Glucose Urine UA Negative (Negative); Leukocyte Esterase Urine Negative (Negative); Nitrite Urine Negative (Negative); Specific Gravity - Urine >= 1.030 (1.005-1.025); Urine Blood Negative (Negative); Urine Ketones Negative (Negative); Urine Protein Negative (Neg-Trace)
[2022-02-10 01:31] LABS: Amphetamine Screen Urine Not Detected (Not Detect); Barbiturates, Urine Not Detected (Not Detect); Benzodiazepines Screen Urine Not Detected (Not Detect); Cannabinoid Screen Urine Not Detected (Not Detect); Cocaine Screen Urine Not Detected (Not Detect); Fentanyl, urine Not Detected (Not Detect); Opiate Screen Urine Not Detected (Not Detect); Phencyclidine Screen Urine Not Detected (Not Detect)
[2022-02-10 02:17] VITALS: BP 139/86; PULSE 84; RESP 16; TEMP 37.1; O2SAT 97
[2022-02-10 04:00] VITALS: BP 158/73; PULSE 73; RESP 16; TEMP 36.6; O2SAT 98
[2022-02-10 05:54] VITALS: BP 148/71; PULSE 79; RESP 16; TEMP 37; O2SAT 97
--- NOTE | 2022-02-10 06:25 | PC.NURSE ---
Addendum entered by Lurdes Bradley RN 02/10/22 07:07: Report given to IVET Santana Original Note: pt changed into safety gown, resting comfortably in bed. denies SI/HI IV removed. pt in good behavior, currently watching TV. pt belonging behind the stretcher, side rails up for pt safety
--- NOTE | 2022-02-10 09:03 | PHA.MEDREC ---
Pharmacy Consult ? Medication Reconciliation Pharmacy has completed the medication reconciliation. Patient was a good historian and knows what medications she takes along with the times of day. Compiled medication list also using claim history because she was unsure of the strength of the drugs even though she knew the names.
[2022-02-10] MEDS: Cholecalciferol (Vitamin D3) 25 MCG TABLET PO (12:30)
[2022-02-10] MEDS: Furosemide 40 MG TABLET PO (12:30)
[2022-02-10] MEDS: lisinopriL 10 MG TABLET PO ×2 (12:30→21:08)
[2022-02-10] MEDS: amLODIPine Besylate 5 MG TABLET PO (12:30)
[2022-02-10] MEDS: Clopidogrel Bisulfate 75 MG TABLET PO (12:30)
[2022-02-10] MEDS: Aspirin Enteric Coated 81 MG TABLET.DR PO (12:30)
[2022-02-10] MEDS: Magnesium Oxide 400 MG TABLET PO (12:30)
[2022-02-10] MEDS: Multivitamin TABLET 1 TAB PO (12:30)
[2022-02-10] MEDS: carvediloL 6.25 MG TABLET PO ×2 (12:31→21:08)
[2022-02-10] MEDS: Omeprazole 20 MG CAPSULE.DR PO (12:31)
--- NOTE | 2022-02-10 14:34 | MHC.CARE ---
Patient accepted to [facility] for admission today.
[2022-02-10 18:00] VITALS: BP 140/70; PULSE 80; RESP 18; TEMP 36.9; O2SAT 98
[2022-02-10 18:30] VITALS: BP 131/76; PULSE 87; RESP 16; TEMP 36.4; O2SAT 98
--- NOTE | 2022-02-10 18:47 | PC.NURSE ---
Pt admitted to floor via wheelchair from pod on 02-10-2022 at 1730. Pt signed a CV in the pod with the care team. Pt initially asked to sign a three day notice, but then stated Maybe I won't . Pt signed releases for her son and [id number], pharmacy and primary care Dr. Pt refused to sign other paperwork. Pt oriented to unit, pt stated I have been here before, I know .
[2022-02-10] MEDS: OLANZapine 5 MG TABLET PO (21:08)
[2022-02-10] MEDS: Donepezil HCl 5 MG TABLET PO (21:08)
[2022-02-11 06:00] VITALS: BP 123/71; PULSE 82; RESP 17; TEMP 36.1; O2SAT 95; O2SAT 98
[2022-02-11] MEDS: Magnesium Oxide 400 MG TABLET PO (08:14)
[2022-02-11] MEDS: amLODIPine Besylate 5 MG TABLET PO (08:14)
[2022-02-11] MEDS: Furosemide 40 MG TABLET PO (08:14)
[2022-02-11] MEDS: Multivitamin TABLET 1 TAB PO (08:14)
[2022-02-11] MEDS: carvediloL 6.25 MG TABLET PO ×2 (08:14→20:30)
[2022-02-11] MEDS: Clopidogrel Bisulfate 75 MG TABLET PO (08:14)
[2022-02-11] MEDS: Cholecalciferol (Vitamin D3) 25 MCG TABLET PO (08:14)
[2022-02-11] MEDS: Aspirin Enteric Coated 81 MG TABLET.DR PO (08:14)
[2022-02-11] MEDS: Omeprazole 20 MG CAPSULE.DR PO (08:14)
[2022-02-11] MEDS: lisinopriL 10 MG TABLET PO ×2 (08:14→20:30)
[2022-02-11 08:51] LABS: Alanine Aminotransferase 19 U/L (0-31); Albumin Level 4.4 g/dL (3.5-5.0); Alkaline Phosphatase 75 U/L (39-117); Anion Gap 15 (12-20); Aspartate Amino Transferase 23 U/L (5-31); Blood Urea Nitrogen 23 mg/dL (9-16); Calcium 10.2 mg/dL (8.4-10.2); Carbon Dioxide 23 mmol/L (22-29); Chloride 103 mmol/L (96-108); Cholesterol 253 mg/dL; Creatinine Clr Calc Pharmacy 46.5; Estimated Glomerular Filt Rate > 60; Glucose Fasting 102 mg/dL (60-99); HDL Cholesterol 53 mg/dL; LDL Cholesterol Calculated 160 mg/dl; Potassium 3.9 mmol/L (3.3-5.1); Sodium 137 mmol/L (135-145); Triglycerides 203 mg/dL
[2022-02-11 09:02] LABS: Bilirubin Total 0.5 mg/dL (0.0-1.0)
--- NOTE | 2022-02-11 12:25 | HO.PSYADMNOT ---
HPI Date of Service: 02/11/22 Chief Complaint: psychosis Sources of Information: patient interviewed, chart reviewed and crisis/core team assessment reviewed HPI Subjective Notes: Pathak Warning and Conditional Voluntary Narrative: The patient is a 76-year-old female, , mother of adult children, retired, living alone in her own apartment, very well known by the stim since she had been admitted into this facility at least twice in the last year. The patient carries a diagnosis of schizoaffective disorder bipolar type and on her last admission a few months ago, was discharged with Zyprexa 5 mg p.o. q.h.s. to target psychosis with for improvement. According to the crisis assessment, the patient walked into the emergency room complaining of shortness of breath but she looked grossly disorganized and psychotic. Her son was called and he provide collateral information, apparently the patient had been again, noncompliant with her medications and she had being presenting psychotic symptoms such as paranoia, auditory hallucinations and disorganized behavior. The patient was assessed by crisis and transferring to this facility for psychiatric stabilization. On interview, the patient reported that she had problems feeling her scripts and she got confused. She also reported that she feels more anxious, with poor sleep and side effects. We discussed risks, benefits, side-effects and alternatives and she agreed to continue with Zyprexa. I offer her long-acting injectables to assure compliance but at this moment the patient is not interested. She wants to stick with Zyprexa that worked better in the past. At the moment of the interview, the patient denies active suicidal or homicidal thoughts and even though that she was psychotic, she was able to made her needs known effectively. Past Psychiatric History: Admitted twice at this unit in the last year due to non-compliance, similar presentation, several times at least twice in 2020 and 2021. [facility] ED 3Xin past 2 months for somatic sx IPLOC at [facility], in 2009. Remote hx of IPLOC at [facility] [place]. Previous SI attempt in 2009 Therapist Zena Maldonado, Psych provider ESTRELLA Shrestha at [facility], Medical Evaluation Reviewed: Yes [facility] Medical History Coronary artery disease Essential hypertension Ischemic cardiomyopathy Schizoaffective disorder, bipolar type Surgical History S/P CABG (coronary artery bypass graft) Family History: Raised by parents, 1 brother, 1 sister. Siblings local. Mother : Alzheimers dementia. Father : Question of psychosis. Brother: Question of psychosis. Sister: Question of dementia. Social History: , lives by self in residential apartment. Has 1 son, has grand children. Substance History: Denies Trauma History: Unknown. Diagnostics Vital Signs (24Hr): Vital Signs - 24 hr 02/10/22 18:00 02/10/22 18:30 02/11/22 06:00 Temperature 98.4 F 97.6 F 96.9 F Pulse Rate 80 87 82 Respiratory Rate 18 16 17 Blood Pressure 140/70 H 131/76 123/71 Pulse Oximetry 98 98 98 Oxygen Delivery Method Room Air Room Air Room Air 02/11/22 06:00 Temperature 96.9 F Pulse Rate 82 Respiratory Rate 17 Blood Pressure 123/71 Pulse Oximetry 95 Oxygen Delivery Method Room Air BMI result Body Mass Index 24.3 Labs Results: 02/09/22 20:34 02/11/22 08:09 Labs: Laboratory Results - last 48 hr 02/09/22 02/09/22 02/09/22 20:34 20:34 20:34 WBC 8.5 RBC 4.70 Hgb 14.2 Hct 40.2 MCV 85.5 MCH 30.2 MCHC 35.3 H RDW 12.3 Plt Count 309 MPV 9.9 Immature Gran % (Auto) 0.2 Neut % (Auto) 57.5 Lymph % (Auto) 29.9 [place] % (Auto) 11.0 Eos % (Auto) 0.7 Baso % (Auto) 0.7 Lymph # (Auto) 2.5 [place] # (Auto) 0.9 Eos # (Auto) 0.1 Baso # (Auto) 0.1 Abs Immat Gran (auto) 0.02 Absolute Neuts (auto) 4.9 Absolute Nucleated RBC 0.000 Nucleated RBC % (auto) 0.0 D-Dimer High Sensitivty 241 Sodium 136 Potassium 4.1 Chloride 105 Carbon Dioxide 18 L Anion Gap 17 BUN 23 H Creatinine 0.79 Estim Creat Clear Calc 51.8 Estimated GFR > 60 Random Glucose 102 Fasting Glucose Calcium 10.4 H Magnesium 1.7 Total Bilirubin 0.6 AST 21 ALT 19 Alkaline Phosphatase 77 Troponin I High Sens B-Natriuretic Peptide Total Protein 7.1 Albumin 4.4 Triglycerides Cholesterol LDL Cholesterol, Calc HDL Cholesterol Urine Color Urine Appearance Urine pH Ur Specific Farrell Urine Protein Urine Glucose (UA) Urine Ketones Urine Blood Urine Nitrite Ur Leukocyte Esterase Salicylates < 5.0 L Urine Opiates Screen Urine Fentanyl Screen Acetaminophen < 1 Ur Barbiturates Screen Ur Phencyclidine Scrn Ur Amphetamines Screen U Benzodiazepines Scrn Urine Cocaine Screen U Marijuana (THC) Screen Ethyl Alcohol < 10 COVID-19 ([facility]IN) COVID-19 Clin Com Influenza Type A (PCR) Influenza Type B (PCR) RSV RNA Qual (PCR) SARS-CoV-2 RNA (RT-PCR) 02/09/22 02/09/22 02/09/22 20:34 20:34 20:34 WBC RBC Hgb Hct MCV MCH MCHC RDW Plt Count MPV Immature Gran % (Auto) Neut % (Auto) Lymph % (Auto) [place] % (Auto) Eos % (Auto) Baso % (Auto) Lymph # (Auto) [place] # (Auto) Eos # (Auto) Baso # (Auto) Abs Immat Gran (auto) Absolute Neuts (auto) Absolute Nucleated RBC Nucleated RBC % (auto) D-Dimer High Sensitivty Sodium Potassium Chloride Carbon Dioxide Anion Gap BUN Creatinine Estim Creat Clear Calc Estimated GFR Random Glucose Fasting Glucose Calcium Magnesium Total Bilirubin AST ALT Alkaline Phosphatase Troponin I High Sens 20.2 H D B-Natriuretic Peptide 232 H Total Protein Albumin Triglycerides Cholesterol LDL Cholesterol, Calc HDL Cholesterol Urine Color Urine Appearance Urine pH Ur Specific Farrell Urine Protein Urine Glucose (UA) Urine Ketones Urine Blood Urine Nitrite Ur Leukocyte Esterase Salicylates Cancelled Urine Opiates Screen Urine Fentanyl Screen Acetaminophen Cancelled Ur Barbiturates Screen Ur Phencyclidine Scrn Ur Amphetamines Screen U Benzodiazepines Scrn Urine Cocaine Screen U Marijuana (THC) Screen Ethyl Alcohol Cancelled COVID-19 (SIN) COVID-19 Clin Com Influenza Type A (PCR) Influenza Type B (PCR) RSV RNA Qual (PCR) SARS-CoV-2 RNA (RT-PCR) 02/09/22 02/09/22 02/09/22 20:35 20:35 23:40 WBC RBC Hgb Hct MCV MCH MCHC RDW Plt Count MPV Immature Gran % (Auto) Neut % (Auto) Lymph % (Auto) [place] % (Auto) Eos % (Auto) Baso % (Auto) Lymph # (Auto) [place] # (Auto) Eos # (Auto) Baso # (Auto) Abs Immat Gran (auto) Absolute Neuts (auto) Absolute Nucleated RBC Nucleated RBC % (auto) D-Dimer High Sensitivty Sodium Potassium Chloride Carbon Dioxide Anion Gap BUN Creatinine Estim Creat Clear Calc Estimated GFR Random Glucose Fasting Glucose Calcium Magnesium Total Bilirubin AST ALT Alkaline Phosphatase Troponin I High Sens 23.2 H B-Natriuretic Peptide Total Protein Albumin Triglycerides Cholesterol LDL Cholesterol, Calc HDL Cholesterol Urine Color Urine Appearance Urine pH Ur Specific Farrell Urine Protein Urine Glucose (UA) Urine Ketones Urine Blood Urine Nitrite Ur Leukocyte Esterase Salicylates Urine Opiates Screen Urine Fentanyl Screen Acetaminophen Ur Barbiturates Screen Ur Phencyclidine Scrn Ur Amphetamines Screen U Benzodiazepines Scrn Urine Cocaine Screen U Marijuana (THC) Screen Ethyl Alcohol COVID-19 (SIN) Negative COVID-19 Clin Com See Note Influenza Type A (PCR) NEGATIVE Influenza Type B (PCR) NEGATIVE RSV RNA Qual (PCR) NEGATIVE SARS-CoV-2 RNA (RT-PCR) NEGATIVE 02/10/22 02/10/22 02/10/22 00:18 01:14 01:14 WBC RBC Hgb Hct MCV MCH MCHC RDW Plt Count MPV Immature Gran % (Auto) Neut % (Auto) Lymph % (Auto) [place] % (Auto) Eos % (Auto) Baso % (Auto) Lymph # (Auto) [place] # (Auto) Eos # (Auto) Baso # (Auto) Abs Immat Gran (auto) Absolute Neuts (auto) Absolute Nucleated RBC Nucleated RBC % (auto) D-Dimer High Sensitivty Sodium Potassium Chloride Carbon Dioxide Anion Gap BUN Creatinine Estim Creat Clear Calc Estimated GFR Random Glucose Fasting Glucose Calcium Magnesium Total Bilirubin AST ALT Alkaline Phosphatase Troponin I High Sens 21.2 H B-Natriuretic Peptide Total Protein Albumin Triglycerides Cholesterol LDL Cholesterol, Calc HDL Cholesterol Urine Color Yellow Urine Appearance Clear Urine pH 6.0 Ur Specific Farrell >= 1.030 H Urine Protein Negative Urine Glucose (UA) Negative Urine Ketones Negative Urine Blood Negative Urine Nitrite Negative Ur Leukocyte Esterase Negative Salicylates Urine Opiates Screen Not Detected Urine Fentanyl Screen Not Detected Acetaminophen Ur Barbiturates Screen Not Detected Ur Phencyclidine Scrn Not Detected Ur Amphetamines Screen Not Detected U Benzodiazepines Scrn Not Detected Urine Cocaine Screen Not Detected U Marijuana (THC) Screen Not Detected Ethyl Alcohol COVID-19 (SIN) COVID-19 Clin Com Influenza Type A (PCR) Influenza Type B (PCR) RSV RNA Qual (PCR) SARS-CoV-2 RNA (RT-PCR) 02/11/22 08:09 WBC RBC Hgb Hct MCV MCH MCHC RDW Plt Count MPV Immature Gran % (Auto) Neut % (Auto) Lymph % (Auto) [place] % (Auto) Eos % (Auto) Baso % (Auto) Lymph # (Auto) [place] # (Auto) Eos # (Auto) Baso # (Auto) Abs Immat Gran (auto) Absolute Neuts (auto) Absolute Nucleated RBC Nucleated RBC % (auto) D-Dimer High Sensitivty Sodium 137 Potassium 3.9 Chloride 103 Carbon Dioxide 23 Anion Gap 15 BUN 23 H D Creatinine 0.88 Estim Creat Clear Calc 46.5 Estimated GFR > 60 Random Glucose Fasting Glucose 102 H Calcium 10.2 Magnesium Total Bilirubin 0.5 AST 23 ALT 19 Alkaline Phosphatase 75 Troponin I High Sens B-Natriuretic Peptide Total Protein 7.0 Albumin 4.4 Triglycerides 203 Cholesterol 253 LDL Cholesterol, Calc 160 HDL Cholesterol 53 Urine Color Urine Appearance Urine pH Ur Specific Farrell Urine Protein Urine Glucose (UA) Urine Ketones Urine Blood Urine Nitrite Ur Leukocyte Esterase Salicylates Urine Opiates Screen Urine Fentanyl Screen Acetaminophen Ur Barbiturates Screen Ur Phencyclidine Scrn Ur Amphetamines Screen U Benzodiazepines Scrn Urine Cocaine Screen U Marijuana (THC) Screen Ethyl Alcohol COVID-19 (SIN) COVID-19 Clin Com Influenza Type A (PCR) Influenza Type B (PCR) RSV RNA Qual (PCR) SARS-CoV-2 RNA (RT-PCR) Imaging Radiology Impressions: ITS Impressions Chest X-Ray 02/09/22 20:00 IMPRESSION: Unremarkable examination. Chest CTA 02/09/22 21:55 IMPRESSION: 1. No evidence of pulmonary emboli. 2. Reflux of contrast into the hepatic veins suggesting elevated right heart pressures VTE: negative Head CT 02/09/22 21:58 IMPRESSION: No acute intracranial pathology. Small chronic infarcts and mild white matter small vessel ischemic changes, unchanged. Meds/Allergies Meds Home Medications Medication Instructions Recorded Confirmed Type amlodipine 5 mg tablet 5 mg PO DAILY 02/10/22 02/10/22 History carvedilol 6.25 mg tablet 6.25 mg PO BID 02/10/22 02/10/22 History clopidogrel 75 mg tablet 75 mg PO DAILY 02/10/22 02/10/22 History donepezil 5 mg tablet (Aricept) 5 mg PO BEDTIME 02/10/22 02/10/22 History furosemide 40 mg tablet 40 mg PO DAILY 02/10/22 02/10/22 History lisinopril 10 mg tablet 10 mg PO BID 02/10/22 02/10/22 History pantoprazole 40 mg tablet,delayed 40 mg PO DAILY 02/10/22 02/10/22 History release potassium chloride 10 mEq 10 meq PO DAILY 02/10/22 02/10/22 History capsule,extended release Allergies Allergies Allergy/AdvReac Type Severity Reaction Status Date / Time nitrofurantoin Allergy Unknown Verified 02/10/22 06:15 [From Macrobid] haloperidol [From Haldol] AdvReac Numbness Verified 02/10/22 06:15 Mental Status Exam Mental Status Exam Patient Appearance: Appropriate Patient Orientation: Person, Place and Situation Level of Consciousness: Awake and Appropriate Patient Behavior: Guarded and Cooperative Mood Description: Withdrawn Affect Description: Blunted Patient Cognition Impaired: Yes Ability to Follow Directions: Good Speech Pattern: Clear Hallucinations: Auditory Delusions: Paranoid Ideation Thought Process: Distracted and Slowed Thinking Thought Content: positive for [place], positive for Poverty of Content and positive for Thought Blocking Judgement: Poor Assessment & Plan Assessment & Plan (1) Schizoaffective disorder, bipolar type: Status: Acute Code(s): F25.0 - Schizoaffective disorder, bipolar type (2) Dementia: Status: Acute Code(s): F03.90 - Unspecified dementia, unspecified severity, without behavioral disturbance, psychotic disturbance, mood disturbance, and anxiety Plan The patient is an elderly female with a long history of schizoaffective disorder and cognitive impairment, readmitted again for exacerbation of psychosis in the context of noncompliance. The patient is very well known by this team since this is her 3rd admission in the last year. Plan 1. Gather collateral information, we will call her son and gather more information. 2. Start Zyprexa 5 mg p.o. q.h.s. to target psychosis. 3. Medical workout with basic metabolic panel, lipid panel, liver function test and TSH. 4. Start discharge planning. Patient educated on: diagnosis Informed Consent: further education needed Reason for continued inpatient stay Substantial Risk for: inability to function, rapid decompensation and med/psych decompensation Statement Statement: I have reviewed the history and physical and performed a pertinent examination on my patient. No changes have occurred unless specified.
[2022-02-11 18:00] VITALS: BP 119/68; PULSE 60; RESP 17; TEMP 36.4; O2SAT 97
[2022-02-11] MEDS: OLANZapine 5 MG TABLET PO (20:30)
[2022-02-11] MEDS: Donepezil HCl 5 MG TABLET PO (20:30)
[2022-02-12 07:00] VITALS: BMI 24.7
--- NOTE | 2022-02-12 08:07 | P.PNPSI_ITS ---
Subjective Subjective Date of Service: 02/12/22 Reason For Visit: psychosis Subjective Notes: Conditional Voluntary Interim History: The nursing staff reported the patient had been compliant with medications. She was seen in the unit pacing in the hallway, internally preoccupied, she denies auditory hallucinations but she looks responding to internal stimuli. On interview the patient was passive with a flat affect. We discussed at length the need of compliance on Zyprexa. I offer her to change to long-acting injectables and she will think about it. Still psychotic. Mental Status Exam Mental Status Exam Patient Appearance: Well Grooomed and Appropriate Patient Orientation: Person, Place and Situation Level of Consciousness: Awake Patient Behavior: Guarded, Passive and Suspicious Mood Description: Withdrawn Affect Description: Constricted Patient Cognition Impaired: Yes Ability to Follow Directions: Fair Speech Pattern: Clear Hallucinations: None Delusions: Paranoid Ideation and Ideas of Reference Thought Process: Evasive and Slowed Thinking Thought Content: positive for [place] and positive for Evasive Judgement: Fair Diagnostics Vital Signs (24Hr): Vital Signs - 24 hr 02/11/22 18:00 Temperature 97.6 F Pulse Rate 60 Respiratory Rate 17 Blood Pressure 119/68 Pulse Oximetry 97 Oxygen Delivery Method Room Air BMI result Body Mass Index 24.3 Labs Results: 02/09/22 20:34 02/11/22 08:09 Labs: Laboratory Results - last 48 hr 02/11/22 08:09 Sodium 137 Potassium 3.9 Chloride 103 Carbon Dioxide 23 Anion Gap 15 BUN 23 H D Creatinine 0.88 Estim Creat Clear Calc 46.5 Estimated GFR > 60 Fasting Glucose 102 H Calcium 10.2 Total Bilirubin 0.5 AST 23 ALT 19 Alkaline Phosphatase 75 Total Protein 7.0 Albumin 4.4 Triglycerides 203 Cholesterol 253 LDL Cholesterol, Calc 160 HDL Cholesterol 53 Imaging Radiology Impressions: ITS Impressions Chest X-Ray 02/09/22 20:00 IMPRESSION: Unremarkable examination. Chest CTA 02/09/22 21:55 IMPRESSION: 1. No evidence of pulmonary emboli. 2. Reflux of contrast into the hepatic veins suggesting elevated right heart pressures VTE: negative Head CT 02/09/22 21:58 IMPRESSION: No acute intracranial pathology. Small chronic infarcts and mild white matter small vessel ischemic changes, unchanged. Medications Medications Current Medications Acetaminophen (Acetaminophen 325 Mg Tablet) 650 mg PO Q6H PRN PRN Reason: Headache/Pain Mild Scale (1-3) Al Hydroxide/Mg Hydroxide (Magnesium Hydrox/Alum Hydrox 30 Ml Oral.Susp) 30 ml PO Q6H PRN PRN Reason: Heartburn/Nausea Amlodipine Besylate (Amlodipine Besylate 5 Mg Tablet) 5 mg PO DAILY [facility]; Protocol Last Admin: 02/11/22 08:14 Dose: 5 mg Aspirin (Aspirin Enteric Coated 81 Mg Tablet.) 81 mg PO DAILY [facility] Last Admin: 02/11/22 08:14 Dose: 81 mg Carvedilol (Carvedilol 6.25 Mg Tablet) 6.25 mg PO BID [facility]; Protocol Last Admin: 02/11/22 20:30 Dose: 6.25 mg Clopidogrel Bisulfate (Clopidogrel Bisulfate 75 Mg Tablet) 75 mg PO DAILY [facility] Last Admin: 02/11/22 08:14 Dose: 75 mg Donepezil HCl (Donepezil Hcl 5 Mg Tablet) 5 mg PO BEDTIME [facility] Last Admin: 02/11/22 20:30 Dose: 5 mg Furosemide (Furosemide 40 Mg Tablet) 40 mg PO DAILY [facility]; Protocol Last Admin: 02/11/22 08:14 Dose: 40 mg Hydroxyzine HCl (Hydroxyzine Hcl 25 Mg Tablet) 25 mg PO Q6H PRN PRN Reason: Anxiety Lisinopril (Lisinopril 10 Mg Tablet) 10 mg PO BID [facility]; Protocol Last Admin: 02/11/22 20:30 Dose: 10 mg Magnesium Hydroxide (Milk Of Magnesia 30 Ml Oral.Susp) 30 ml PO DAILY PRN PRN Reason: Constipation Magnesium Oxide (Magnesium Oxide 400 Mg Tablet) 400 mg PO DAILY [facility] Last Admin: 02/11/22 08:14 Dose: 400 mg Multivitamins/Vitamin C (Multivitamin Tablet) 1 tab PO DAILY [facility] Last Admin: 02/11/22 08:14 Dose: 1 tab Olanzapine (Olanzapine 5 Mg Tablet) 5 mg PO BEDTIME [facility] Last Admin: 02/11/22 20:30 Dose: 5 mg Omeprazole (Omeprazole 20 Mg Capsule.) 20 mg PO DAILY [facility] Last Admin: 02/11/22 08:14 Dose: 20 mg Pharmacy Consult (Consult Rx Perform Med Rec) 1 each MISCELLANE ONCE PRN PRN Reason: Consult order Potassium Chloride (Potassium Chloride Er 10 Meq Capsule.Er) 10 meq PO DAILY [facility] Last Admin: 02/11/22 20:30 Dose: 10 meq Trazodone HCl (Trazodone Hcl 50 Mg Tablet) 50 mg PO BEDTIME PRN PRN Reason: Insomnia Vitamin D (Cholecalciferol (Vitamin D3) 25 Mcg Tablet) 25 mcg PO DAILY [facility] Last Admin: 02/11/22 08:14 Dose: 25 mcg Allergies Allergies Allergy/AdvReac Type Severity Reaction Status Date / Time nitrofurantoin Allergy Unknown Verified 02/10/22 06:15 [From Macrobid] haloperidol [From Haldol] AdvReac Numbness Verified 02/10/22 06:15 Assessment & Plan Assessment & Plan (1) Schizoaffective disorder, bipolar type: Status: Acute Code(s): F25.0 - Schizoaffective disorder, bipolar type (2) Dementia: Status: Acute Code(s): F03.90 - Unspecified dementia, unspecified severity, without behavioral disturbance, psychotic disturbance, mood disturbance, and anxiety Plan The patient is an elderly female with a long history of schizoaffective disorder and cognitive impairment, readmitted again for exacerbation of psychosis in the context of noncompliance. The patient is very well known by this team since this is her 3rd admission in the last year. Plan 1. Gather collateral information, we will call her son and gather more information. 2. Start Zyprexa 5 mg p.o. q.h.s. to target psychosis. 3. Medical workout with basic metabolic panel, lipid panel, liver function test and TSH. 4. Start discharge planning. I spent __20____ minutes with the patient and/or on the patient floor today, greater than?50% of which was spent counseling/coordinating care. Reason for contiued inpatient stay Substantial Risk for: inability to function, rapid decompensation and med/psych decompensation
[2022-02-12 08:30] VITALS: BP 124/64; PULSE 65; RESP 18; TEMP 36.1; O2SAT 97
[2022-02-12] MEDS: Magnesium Oxide 400 MG TABLET PO (08:34)
[2022-02-12] MEDS: Furosemide 40 MG TABLET PO (08:34)
[2022-02-12] MEDS: Omeprazole 20 MG CAPSULE.DR PO (08:34)
[2022-02-12] MEDS: Aspirin Enteric Coated 81 MG TABLET.DR PO (08:34)
[2022-02-12] MEDS: carvediloL 6.25 MG TABLET PO ×2 (08:34→20:44)
[2022-02-12] MEDS: lisinopriL 10 MG TABLET PO ×2 (08:34→20:44)
[2022-02-12] MEDS: Multivitamin TABLET 1 TAB PO (08:35)
[2022-02-12] MEDS: Cholecalciferol (Vitamin D3) 25 MCG TABLET PO (08:35)
[2022-02-12] MEDS: Clopidogrel Bisulfate 75 MG TABLET PO (08:35)
[2022-02-12] MEDS: amLODIPine Besylate 5 MG TABLET PO (08:35)
[2022-02-12 18:00] VITALS: BP 132/76; PULSE 74; RESP 18; TEMP 36.5; O2SAT 96
[2022-02-12] MEDS: Donepezil HCl 5 MG TABLET PO (20:44)
[2022-02-12] MEDS: OLANZapine 5 MG TABLET PO (20:44)
[2022-02-13] MEDS: Omeprazole 20 MG CAPSULE.DR PO (10:21)
[2022-02-13] MEDS: carvediloL 6.25 MG TABLET PO ×2 (10:21→21:13)
[2022-02-13] MEDS: amLODIPine Besylate 5 MG TABLET PO (10:21)
[2022-02-13] MEDS: Furosemide 40 MG TABLET PO (10:21)
[2022-02-13] MEDS: Multivitamin TABLET 1 TAB PO (10:21)
[2022-02-13] MEDS: Aspirin Enteric Coated 81 MG TABLET.DR PO (10:21)
[2022-02-13] MEDS: Cholecalciferol (Vitamin D3) 25 MCG TABLET PO (10:22)
[2022-02-13] MEDS: Clopidogrel Bisulfate 75 MG TABLET PO (10:22)
[2022-02-13] MEDS: Magnesium Oxide 400 MG TABLET PO (10:22)
[2022-02-13] MEDS: lisinopriL 10 MG TABLET PO ×2 (10:22→21:13)
[2022-02-13 10:28] VITALS: BP 121/75; PULSE 76; RESP 18; TEMP 36; O2SAT 95
--- NOTE | 2022-02-13 10:42 | HO.PSYCHPN ---
Subjective Subjective Date of Service: 02/13/22 Reason For Visit: psychosis Subjective Notes: Conditional Voluntary Interim History: The nursing staff reported the patient had been compliant with treatment and she slept 8 hours even though, she had been accusatory and suspicions with staff. She complained of being anxious. The social science professor will call her son for a family meeting pretty soon. We were discussing the possibility of transfer her to rest home to assure compliance since this is the 3rd admission with a similar presentation. On interview the patient remains internally preoccupied and paranoid. So far no improvement of her psychosis at this moment. We will wait since, historically, she responds Zyprexa 5 mg p.o. q.h.s. after 3 or 4 days. Mental Status Exam Mental Status Exam Patient Appearance: Well Grooomed Patient Orientation: Person and Situation Level of Consciousness: Awake and Appropriate Patient Behavior: Guarded and Passive Mood Description: Withdrawn Affect Description: Blunted Patient Cognition Impaired: Yes Ability to Follow Directions: Good Speech Pattern: Clear Hallucinations: None Delusions: Paranoid Ideation and Ideas of Reference Thought Process: Distracted Thought Content: positive for [place] and positive for Thought Blocking Judgement: Fair Diagnostics Vital Signs (24Hr): Vital Signs - 24 hr 02/12/22 18:00 02/13/22 10:28 Temperature 97.7 F 96.8 F Pulse Rate 74 76 Respiratory Rate 18 18 Blood Pressure 132/76 121/75 Pulse Oximetry 96 95 Oxygen Delivery Method Room Air Room Air BMI result Body Mass Index 24.7 Labs Results: 02/09/22 20:34 02/11/22 08:09 Imaging Radiology Impressions: ITS Impressions Chest X-Ray 02/09/22 20:00 IMPRESSION: Unremarkable examination. Chest CTA 02/09/22 21:55 IMPRESSION: 1. No evidence of pulmonary emboli. 2. Reflux of contrast into the hepatic veins suggesting elevated right heart pressures VTE: negative Head CT 02/09/22 21:58 IMPRESSION: No acute intracranial pathology. Small chronic infarcts and mild white matter small vessel ischemic changes, unchanged. Medications Medications Current Medications Acetaminophen (Acetaminophen 325 Mg Tablet) 650 mg PO Q6H PRN PRN Reason: Headache/Pain Mild Scale (1-3) Al Hydroxide/Mg Hydroxide (Magnesium Hydrox/Alum Hydrox 30 Ml Oral.Susp) 30 ml PO Q6H PRN PRN Reason: Heartburn/Nausea Amlodipine Besylate (Amlodipine Besylate 5 Mg Tablet) 5 mg PO DAILY [facility]; Protocol Last Admin: 02/13/22 10:21 Dose: 5 mg Aspirin (Aspirin Enteric Coated 81 Mg Tablet.) 81 mg PO DAILY [facility] Last Admin: 02/13/22 10:21 Dose: 81 mg Carvedilol (Carvedilol 6.25 Mg Tablet) 6.25 mg PO BID [facility]; Protocol Last Admin: 02/13/22 10:21 Dose: 6.25 mg Clopidogrel Bisulfate (Clopidogrel Bisulfate 75 Mg Tablet) 75 mg PO DAILY [facility] Last Admin: 02/13/22 10:22 Dose: 75 mg Donepezil HCl (Donepezil Hcl 5 Mg Tablet) 5 mg PO BEDTIME [facility] Last Admin: 02/12/22 20:44 Dose: 5 mg Furosemide (Furosemide 40 Mg Tablet) 40 mg PO DAILY [facility]; Protocol Last Admin: 02/13/22 10:21 Dose: 40 mg Hydroxyzine HCl (Hydroxyzine Hcl 25 Mg Tablet) 25 mg PO Q6H PRN PRN Reason: Anxiety Lisinopril (Lisinopril 10 Mg Tablet) 10 mg PO BID [facility]; Protocol Last Admin: 02/13/22 10:22 Dose: 10 mg Magnesium Hydroxide (Milk Of Magnesia 30 Ml Oral.Susp) 30 ml PO DAILY PRN PRN Reason: Constipation Magnesium Oxide (Magnesium Oxide 400 Mg Tablet) 400 mg PO DAILY [facility] Last Admin: 02/13/22 10:22 Dose: 400 mg Multivitamins/Vitamin C (Multivitamin Tablet) 1 tab PO DAILY [facility] Last Admin: 02/13/22 10:21 Dose: 1 tab Olanzapine (Olanzapine 5 Mg Tablet) 5 mg PO BEDTIME [facility] Last Admin: 02/12/22 20:44 Dose: 5 mg Omeprazole (Omeprazole 20 Mg Capsule.) 20 mg PO DAILY [facility] Last Admin: 02/13/22 10:21 Dose: 20 mg Pharmacy Consult (Consult Rx Perform Med Rec) 1 each MISCELLANE ONCE PRN PRN Reason: Consult order Potassium Chloride (Potassium Chloride Er 10 Meq Capsule.Er) 10 meq PO DAILY [facility] Last Admin: 02/13/22 10:21 Dose: 10 meq Trazodone HCl (Trazodone Hcl 50 Mg Tablet) 50 mg PO BEDTIME PRN PRN Reason: Insomnia Vitamin D (Cholecalciferol (Vitamin D3) 25 Mcg Tablet) 25 mcg PO DAILY [facility] Last Admin: 02/13/22 10:22 Dose: 25 mcg Allergies Allergies Allergy/AdvReac Type Severity Reaction Status Date / Time nitrofurantoin Allergy Unknown Verified 02/10/22 06:15 [From Macrobid] haloperidol [From Haldol] AdvReac Numbness Verified 02/10/22 06:15 Assessment & Plan Assessment & Plan (1) Schizoaffective disorder, bipolar type: Status: Acute Code(s): F25.0 - Schizoaffective disorder, bipolar type (2) Dementia: Status: Acute Code(s): F03.90 - Unspecified dementia, unspecified severity, without behavioral disturbance, psychotic disturbance, mood disturbance, and anxiety Plan The patient is an elderly female with a long history of schizoaffective disorder and cognitive impairment, readmitted again for exacerbation of psychosis in the context of noncompliance. The patient is very well known by this team since this is her 3rd admission in the last year. Plan 1. Gather collateral information, we will call her son and gather more information. 2. Start Zyprexa 5 mg p.o. q.h.s. to target psychosis. 3. Medical workout with basic metabolic panel, lipid panel, liver function test and TSH. So far no changes from baseline. 4. Start discharge planning. I spent __20____ minutes with the patient and/or on the patient floor today, greater than?50% of which was spent counseling/coordinating care. Reason for contiued inpatient stay Substantial Risk for: inability to function, rapid decompensation and med/psych decompensation
[2022-02-13 18:00] VITALS: BP 161/83; PULSE 70; RESP 70; TEMP 36.1; O2SAT 98
[2022-02-13] MEDS: OLANZapine 5 MG TABLET PO (21:13)
[2022-02-13] MEDS: Donepezil HCl 5 MG TABLET PO (21:13)
[2022-02-14 06:00] VITALS: BP 137/79; PULSE 67; RESP 17; TEMP 35.8; O2SAT 96
[2022-02-14] MEDS: Omeprazole 20 MG CAPSULE.DR PO (08:24)
[2022-02-14] MEDS: Furosemide 40 MG TABLET PO (08:24)
[2022-02-14] MEDS: amLODIPine Besylate 5 MG TABLET PO (08:24)
[2022-02-14] MEDS: Aspirin Enteric Coated 81 MG TABLET.DR PO (08:24)
[2022-02-14] MEDS: Cholecalciferol (Vitamin D3) 25 MCG TABLET PO (08:24)
[2022-02-14] MEDS: carvediloL 6.25 MG TABLET PO ×2 (08:24→20:31)
[2022-02-14] MEDS: Clopidogrel Bisulfate 75 MG TABLET PO (08:24)
[2022-02-14] MEDS: Multivitamin TABLET 1 TAB PO (08:24)
[2022-02-14] MEDS: lisinopriL 10 MG TABLET PO ×2 (08:24→20:28)
[2022-02-14] MEDS: Magnesium Oxide 400 MG TABLET PO (08:24)
--- NOTE | 2022-02-14 10:00 | P.PNPSI_ITS ---
Subjective Subjective Date of Service: 02/14/22 Reason For Visit: psychosis Interim History: The patient has limited insight seems not to comprehend why she is on olanzapine isolated anxious ruminating she is accepting the possibility of a long-acting injectable Mental Status Exam Mental Status Exam Patient Appearance: Well Grooomed Patient Orientation: Person, Place and Situation Level of Consciousness: Awake and Appropriate Patient Behavior: Guarded and Passive Mood Description: Withdrawn Affect Description: Blunted Patient Cognition Impaired: Yes Ability to Follow Directions: Good Speech Pattern: Clear Hallucinations: None Delusions: Paranoid Ideation and Ideas of Reference Thought Process: Distracted Thought Content: positive for [place] and positive for Thought Blocking Judgement: Fair Diagnostics Vital Signs (24Hr): Vital Signs - 24 hr 02/13/22 10:28 02/13/22 18:00 02/14/22 06:00 Temperature 96.8 F 97 F 96.4 F L Pulse Rate 76 70 67 Respiratory Rate 18 70 H 17 Blood Pressure 121/75 161/83 H 137/79 Pulse Oximetry 95 98 96 Oxygen Delivery Method Room Air Room Air Room Air BMI result Body Mass Index 24.7 Labs Results: 02/09/22 20:34 02/11/22 08:09 Imaging Radiology Impressions: ITS Impressions Chest X-Ray 02/09/22 20:00 IMPRESSION: Unremarkable examination. Chest CTA 02/09/22 21:55 IMPRESSION: 1. No evidence of pulmonary emboli. 2. Reflux of contrast into the hepatic veins suggesting elevated right heart pressures VTE: negative Head CT 02/09/22 21:58 IMPRESSION: No acute intracranial pathology. Small chronic infarcts and mild white matter small vessel ischemic changes, unchanged. Medications Medications Current Medications Acetaminophen (Acetaminophen 325 Mg Tablet) 650 mg PO Q6H PRN PRN Reason: Headache/Pain Mild Scale (1-3) Al Hydroxide/Mg Hydroxide (Magnesium Hydrox/Alum Hydrox 30 Ml Oral.Susp) 30 ml PO Q6H PRN PRN Reason: Heartburn/Nausea Amlodipine Besylate (Amlodipine Besylate 5 Mg Tablet) 5 mg PO DAILY [facility]; Protocol Last Admin: 02/14/22 08:24 Dose: 5 mg Aspirin (Aspirin Enteric Coated 81 Mg Tablet.) 81 mg PO DAILY [facility] Last Admin: 02/14/22 08:24 Dose: 81 mg Carvedilol (Carvedilol 6.25 Mg Tablet) 6.25 mg PO BID [facility]; Protocol Last Admin: 02/14/22 08:24 Dose: 6.25 mg Clopidogrel Bisulfate (Clopidogrel Bisulfate 75 Mg Tablet) 75 mg PO DAILY [facility] Last Admin: 02/14/22 08:24 Dose: 75 mg Donepezil HCl (Donepezil Hcl 5 Mg Tablet) 5 mg PO BEDTIME [facility] Last Admin: 02/13/22 21:13 Dose: 5 mg Furosemide (Furosemide 40 Mg Tablet) 40 mg PO DAILY [facility]; Protocol Last Admin: 02/14/22 08:24 Dose: 40 mg Hydroxyzine HCl (Hydroxyzine Hcl 25 Mg Tablet) 25 mg PO Q6H PRN PRN Reason: Anxiety Lisinopril (Lisinopril 10 Mg Tablet) 10 mg PO BID [facility]; Protocol Last Admin: 02/14/22 08:24 Dose: 10 mg Magnesium Hydroxide (Milk Of Magnesia 30 Ml Oral.Susp) 30 ml PO DAILY PRN PRN Reason: Constipation Magnesium Oxide (Magnesium Oxide 400 Mg Tablet) 400 mg PO DAILY [facility] Last Admin: 02/14/22 08:24 Dose: 400 mg Multivitamins/Vitamin C (Multivitamin Tablet) 1 tab PO DAILY [facility] Last Admin: 02/14/22 08:24 Dose: 1 tab Olanzapine (Olanzapine 5 Mg Tablet) 5 mg PO BEDTIME [facility] Last Admin: 02/13/22 21:13 Dose: 5 mg Omeprazole (Omeprazole 20 Mg Capsule.Dr) 20 mg PO DAILY [facility] Last Admin: 02/14/22 08:24 Dose: 20 mg Pharmacy Consult (Consult Rx Perform Med Rec) 1 each MISCELLANE ONCE PRN PRN Reason: Consult order Potassium Chloride (Potassium Chloride Er 10 Meq Capsule.Er) 10 meq PO DAILY [facility] Last Admin: 02/14/22 08:24 Dose: 10 meq Trazodone HCl (Trazodone Hcl 50 Mg Tablet) 50 mg PO BEDTIME PRN PRN Reason: Insomnia Vitamin D (Cholecalciferol (Vitamin D3) 25 Mcg Tablet) 25 mcg PO DAILY [facility] Last Admin: 02/14/22 08:24 Dose: 25 mcg Allergies Allergies Allergy/AdvReac Type Severity Reaction Status Date / Time nitrofurantoin Allergy Unknown Verified 02/10/22 06:15 [From Macrobid] haloperidol [From Haldol] AdvReac Numbness Verified 02/10/22 06:15 Assessment & Plan Assessment & Plan (1) Schizoaffective disorder, bipolar type: Status: Acute Code(s): F25.0 - Schizoaffective disorder, bipolar type (2) Dementia: Status: Acute Code(s): F03.90 - Unspecified dementia, unspecified severity, without behavioral disturbance, psychotic disturbance, mood disturbance, and anxiety Plan The patient is an elderly female with a long history of schizoaffective disorder and cognitive impairment, readmitted again for exacerbation of psychosis in the context of noncompliance. The patient is very well known by this team since this is her 3rd admission in the last year. Plan 1. Gather collateral information, we will call her son and gather more information. 2. Start Zyprexa 5 mg p.o. q.h.s. to target psychosis. 3. Medical workout with basic metabolic panel, lipid panel, liver function test and TSH. So far no changes from baseline. 4. Start discharge planning. 02/14/2022 Patient accepting treatment with olanzapine limited insight willing to discuss long-acting injectable I spent minutes with the patient and/or on the patient floor today, g reater than?50% of which was spent counseling/coordinating care. Reason for contiued inpatient stay Substantial Risk for: inability to function, rapid decompensation and med/psych decompensation
[2022-02-14 18:00] VITALS: BP 137/79; PULSE 67; RESP 17; TEMP 35.8; O2SAT 96
[2022-02-14] MEDS: OLANZapine 5 MG TABLET PO (20:28)
[2022-02-14] MEDS: Donepezil HCl 5 MG TABLET PO (20:28)
[2022-02-14] MEDS: traZODone HCL 50 MG TABLET PO ×2 (21:15→22:17)
[2022-02-15] MEDS: Clopidogrel Bisulfate 75 MG TABLET PO (08:26)
[2022-02-15] MEDS: Cholecalciferol (Vitamin D3) 25 MCG TABLET PO (08:26)
[2022-02-15] MEDS: carvediloL 6.25 MG TABLET PO ×2 (08:26→22:14)
[2022-02-15] MEDS: Magnesium Oxide 400 MG TABLET PO (08:26)
[2022-02-15] MEDS: amLODIPine Besylate 5 MG TABLET PO (08:26)
[2022-02-15] MEDS: Omeprazole 20 MG CAPSULE.DR PO (08:26)
[2022-02-15] MEDS: lisinopriL 10 MG TABLET PO ×2 (08:26→22:14)
[2022-02-15] MEDS: Furosemide 40 MG TABLET PO (08:26)
[2022-02-15] MEDS: Multivitamin TABLET 1 TAB PO (08:26)
[2022-02-15] MEDS: Aspirin Enteric Coated 81 MG TABLET.DR PO (08:26)
--- NOTE | 2022-02-15 10:27 | HO.PSYCHPN ---
Subjective Subjective Date of Service: 02/15/22 Reason For Visit: psychosis Subjective Notes: Conditional Voluntary Interim History: Patient remains withdrawn internally preoccupied limited insight has been accepting medications Medication Compliance: Yes Mental Status Exam Mental Status Exam Patient Appearance: Well Grooomed Patient Orientation: Person, Place and Situation Level of Consciousness: Awake and Appropriate Patient Behavior: Guarded and Passive Mood Description: Withdrawn Affect Description: Blunted Patient Cognition Impaired: Yes Ability to Follow Directions: Good Speech Pattern: Clear Hallucinations: None Delusions: Paranoid Ideation and Ideas of Reference Thought Process: Distracted Thought Content: positive for [place] and positive for Thought Blocking Judgement: Fair Diagnostics Vital Signs (24Hr): Vital Signs - 24 hr 02/14/22 18:00 Temperature 96.4 F L Pulse Rate 67 Respiratory Rate 17 Blood Pressure 137/79 Pulse Oximetry 96 Oxygen Delivery Method Room Air BMI result Body Mass Index 24.7 Labs Results: 02/09/22 20:34 02/11/22 08:09 Imaging Radiology Impressions: ITS Impressions Chest X-Ray 02/09/22 20:00 IMPRESSION: Unremarkable examination. Chest CTA 02/09/22 21:55 IMPRESSION: 1. No evidence of pulmonary emboli. 2. Reflux of contrast into the hepatic veins suggesting elevated right heart pressures VTE: negative Head CT 02/09/22 21:58 IMPRESSION: No acute intracranial pathology. Small chronic infarcts and mild white matter small vessel ischemic changes, unchanged. Medications Medications Current Medications Acetaminophen (Acetaminophen 325 Mg Tablet) 650 mg PO Q6H PRN PRN Reason: Headache/Pain Mild Scale (1-3) Al Hydroxide/Mg Hydroxide (Magnesium Hydrox/Alum Hydrox 30 Ml Oral.Susp) 30 ml PO Q6H PRN PRN Reason: Heartburn/Nausea Amlodipine Besylate (Amlodipine Besylate 5 Mg Tablet) 5 mg PO DAILY [facility]; Protocol Last Admin: 02/15/22 08:26 Dose: 5 mg Aspirin (Aspirin Enteric Coated 81 Mg Tablet.Dr) 81 mg PO DAILY [facility] Last Admin: 02/15/22 08:26 Dose: 81 mg Carvedilol (Carvedilol 6.25 Mg Tablet) 6.25 mg PO BID [facility]; Protocol Last Admin: 02/15/22 08:26 Dose: 6.25 mg Clopidogrel Bisulfate (Clopidogrel Bisulfate 75 Mg Tablet) 75 mg PO DAILY [facility] Last Admin: 02/15/22 08:26 Dose: 75 mg Donepezil HCl (Donepezil Hcl 5 Mg Tablet) 5 mg PO BEDTIME [facility] Last Admin: 02/14/22 20:28 Dose: 5 mg Furosemide (Furosemide 40 Mg Tablet) 40 mg PO DAILY [facility]; Protocol Last Admin: 02/15/22 08:26 Dose: 40 mg Hydroxyzine HCl (Hydroxyzine Hcl 25 Mg Tablet) 25 mg PO Q6H PRN PRN Reason: Anxiety Lisinopril (Lisinopril 10 Mg Tablet) 10 mg PO BID [facility]; Protocol Last Admin: 02/15/22 08:26 Dose: 10 mg Magnesium Hydroxide (Milk Of Magnesia 30 Ml Oral.Susp) 30 ml PO DAILY PRN PRN Reason: Constipation Magnesium Oxide (Magnesium Oxide 400 Mg Tablet) 400 mg PO DAILY [facility] Last Admin: 02/15/22 08:26 Dose: 400 mg Multivitamins/Vitamin C (Multivitamin Tablet) 1 tab PO DAILY [facility] Last Admin: 02/15/22 08:26 Dose: 1 tab Olanzapine (Olanzapine 5 Mg Tablet) 5 mg PO BEDTIME [facility] Last Admin: 02/14/22 20:28 Dose: 5 mg Omeprazole (Omeprazole 20 Mg Capsule.Dr) 20 mg PO DAILY [facility] Last Admin: 02/15/22 08:26 Dose: 20 mg Pharmacy Consult (Consult Rx Perform Med Rec) 1 each MISCELLANE ONCE PRN PRN Reason: Consult order Potassium Chloride (Potassium Chloride Er 10 Meq Capsule.Er) 10 meq PO DAILY [facility] Last Admin: 02/15/22 08:26 Dose: 10 meq Trazodone HCl (Trazodone Hcl 50 Mg Tablet) 50 mg PO BEDTIME PRN PRN Reason: Insomnia Last Admin: 02/14/22 22:17 Dose: 50 mg Vitamin D (Cholecalciferol (Vitamin D3) 25 Mcg Tablet) 25 mcg PO DAILY [facility] Last Admin: 02/15/22 08:26 Dose: 25 mcg Allergies Allergies Allergy/AdvReac Type Severity Reaction Status Date / Time nitrofurantoin Allergy Unknown Verified 02/10/22 06:15 [From Macrobid] haloperidol [From Haldol] AdvReac Numbness Verified 02/10/22 06:15 Assessment & Plan Assessment & Plan (1) Schizoaffective disorder, bipolar type: Status: Acute Code(s): F25.0 - Schizoaffective disorder, bipolar type (2) Dementia: Status: Acute Code(s): F03.90 - Unspecified dementia, unspecified severity, without behavioral disturbance, psychotic disturbance, mood disturbance, and anxiety Plan The patient is an elderly female with a long history of schizoaffective disorder and cognitive impairment, readmitted again for exacerbation of psychosis in the context of noncompliance. The patient is very well known by this team since this is her 3rd admission in the last year. Plan 1. Gather collateral information, we will call her son and gather more information. 2. Start Zyprexa 5 mg p.o. q.h.s. to target psychosis. 3. Medical workout with basic metabolic panel, lipid panel, liver function test and TSH. So far no changes from baseline. 4. Start discharge planning. 02/14/2022 Patient accepting treatment with olanzapine limited insight willing to discuss long-acting injectable 02/15/2022 Continue plan of care no change indicated at this time I spent minutes with the patient and/or on the patient floor today, greater than?50% of which was spent counseling/coordinating care. Reason for contiued inpatient stay Substantial Risk for: inability to function, rapid decompensation and med/psych decompensation
[2022-02-15 20:39] VITALS: BP 160/80; PULSE 68; RESP 16; TEMP 36.6; O2SAT 99
[2022-02-15] MEDS: OLANZapine 5 MG TABLET PO (22:14)
[2022-02-15] MEDS: Donepezil HCl 5 MG TABLET PO (22:14)
[2022-02-16 06:00] VITALS: BP 131/98; PULSE 67; RESP 16; TEMP 36.2; O2SAT 96
[2022-02-16] MEDS: Furosemide 40 MG TABLET PO (08:43)
[2022-02-16] MEDS: Multivitamin TABLET 1 TAB PO (08:43)
[2022-02-16] MEDS: Magnesium Oxide 400 MG TABLET PO (08:43)
[2022-02-16] MEDS: amLODIPine Besylate 5 MG TABLET PO (08:43)
[2022-02-16] MEDS: Aspirin Enteric Coated 81 MG TABLET.DR PO (08:43)
[2022-02-16] MEDS: Omeprazole 20 MG CAPSULE.DR PO (08:43)
[2022-02-16] MEDS: Cholecalciferol (Vitamin D3) 25 MCG TABLET PO (08:44)
[2022-02-16] MEDS: carvediloL 6.25 MG TABLET PO ×2 (08:44→20:50)
[2022-02-16] MEDS: lisinopriL 10 MG TABLET PO ×2 (08:44→20:43)
[2022-02-16] MEDS: Clopidogrel Bisulfate 75 MG TABLET PO (08:44)
--- NOTE | 2022-02-16 13:47 | HO.PSYCHPN ---
Subjective Subjective Date of Service: 02/16/22 Reason For Visit: psychosis Subjective Notes: Conditional Voluntary Interim History: The nursing staff reported the patient had been paranoid. She had been visible only for meals. She had attends with some groups but no real participation. She had been medication compliant with her medications. On interview the patient denies new symptoms she looks internally preoccupied but pleasant. Mental Status Exam Mental Status Exam Patient Appearance: Well Grooomed and Appropriate Patient Orientation: Person and Situation Level of Consciousness: Awake Patient Behavior: Guarded and Passive Mood Description: Suspicious Affect Description: Constricted Patient Cognition Impaired: Yes Ability to Follow Directions: Good Speech Pattern: Clear Hallucinations: None Delusions: Paranoid Ideation Thought Process: Distracted Thought Content: positive for [place] and positive for Circumstantial Judgement: Fair Diagnostics Vital Signs (24Hr): Vital Signs - 24 hr 02/15/22 20:39 02/16/22 06:00 Temperature 97.8 F 97.1 F Pulse Rate 68 67 Respiratory Rate 16 16 Blood Pressure 160/80 H 131/98 H Pulse Oximetry 99 96 Oxygen Delivery Method Room Air Room Air BMI result Body Mass Index 24.7 Labs Results: 02/09/22 20:34 02/11/22 08:09 Imaging Radiology Impressions: ITS Impressions Chest X-Ray 02/09/22 20:00 IMPRESSION: Unremarkable examination. Chest CTA 02/09/22 21:55 IMPRESSION: 1. No evidence of pulmonary emboli. 2. Reflux of contrast into the hepatic veins suggesting elevated right heart pressures VTE: negative Head CT 02/09/22 21:58 IMPRESSION: No acute intracranial pathology. Small chronic infarcts and mild white matter small vessel ischemic changes, unchanged. Medications Medications Current Medications Acetaminophen (Acetaminophen 325 Mg Tablet) 650 mg PO Q6H PRN PRN Reason: Headache/Pain Mild Scale (1-3) Al Hydroxide/Mg Hydroxide (Magnesium Hydrox/Alum Hydrox 30 Ml Oral.Susp) 30 ml PO Q6H PRN PRN Reason: Heartburn/Nausea Amlodipine Besylate (Amlodipine Besylate 5 Mg Tablet) 5 mg PO DAILY [facility]; Protocol Last Admin: 02/16/22 08:43 Dose: 5 mg Aspirin (Aspirin Enteric Coated 81 Mg Tablet.) 81 mg PO DAILY [facility] Last Admin: 02/16/22 08:43 Dose: 81 mg Carvedilol (Carvedilol 6.25 Mg Tablet) 6.25 mg PO BID [facility]; Protocol Last Admin: 02/16/22 08:44 Dose: 6.25 mg Clopidogrel Bisulfate (Clopidogrel Bisulfate 75 Mg Tablet) 75 mg PO DAILY [facility] Last Admin: 02/16/22 08:44 Dose: 75 mg Donepezil HCl (Donepezil Hcl 5 Mg Tablet) 5 mg PO BEDTIME [facility] Last Admin: 02/15/22 22:14 Dose: 5 mg Furosemide (Furosemide 40 Mg Tablet) 40 mg PO DAILY [facility]; Protocol Last Admin: 02/16/22 08:43 Dose: 40 mg Hydroxyzine HCl (Hydroxyzine Hcl 25 Mg Tablet) 25 mg PO Q6H PRN PRN Reason: Anxiety Lisinopril (Lisinopril 10 Mg Tablet) 10 mg PO BID [facility]; Protocol Last Admin: 02/16/22 08:44 Dose: 10 mg Magnesium Hydroxide (Milk Of Magnesia 30 Ml Oral.Susp) 30 ml PO DAILY PRN PRN Reason: Constipation Magnesium Oxide (Magnesium Oxide 400 Mg Tablet) 400 mg PO DAILY [facility] Last Admin: 02/16/22 08:43 Dose: 400 mg Multivitamins/Vitamin C (Multivitamin Tablet) 1 tab PO DAILY [facility] Last Admin: 02/16/22 08:43 Dose: 1 tab Olanzapine (Olanzapine 5 Mg Tablet) 5 mg PO BEDTIME [facility] Last Admin: 02/15/22 22:14 Dose: 5 mg Omeprazole (Omeprazole 20 Mg Capsule.Dr) 20 mg PO DAILY [facility] Last Admin: 02/16/22 08:43 Dose: 20 mg Pharmacy Consult (Consult Rx Perform Med Rec) 1 each MISCELLANE ONCE PRN PRN Reason: Consult order Potassium Chloride (Potassium Chloride Er 10 Meq Capsule.Er) 10 meq PO DAILY [facility] Last Admin: 02/16/22 08:43 Dose: 10 meq Trazodone HCl (Trazodone Hcl 50 Mg Tablet) 50 mg PO BEDTIME PRN PRN Reason: Insomnia Last Admin: 02/14/22 22:17 Dose: 50 mg Vitamin D (Cholecalciferol (Vitamin D3) 25 Mcg Tablet) 25 mcg PO DAILY [facility] Last Admin: 02/16/22 08:44 Dose: 25 mcg Allergies Allergies Allergy/AdvReac Type Severity Reaction Status Date / Time nitrofurantoin Allergy Unknown Verified 02/10/22 06:15 [From Macrobid] haloperidol [From Haldol] AdvReac Numbness Verified 02/10/22 06:15 Assessment & Plan Assessment & Plan (1) Schizoaffective disorder, bipolar type: Status: Acute Code(s): F25.0 - Schizoaffective disorder, bipolar type (2) Dementia: Status: Acute Code(s): F03.90 - Unspecified dementia, unspecified severity, without behavioral disturbance, psychotic disturbance, mood disturbance, and anxiety Plan The patient is an elderly female with a long history of schizoaffective disorder and cognitive impairment, readmitted again for exacerbation of psychosis in the context of noncompliance. The patient is very well known by this team since this is her 3rd admission in the last year. Plan 1. Gather collateral information, we will call her son and gather more information. 2. Start Zyprexa 5 mg p.o. q.h.s. to target psychosis. 3. Medical workout with basic metabolic panel, lipid panel, liver function test and TSH. So far no changes from baseline. 4. Start discharge planning. I spent __20____ minutes with the patient and/or on the patient floor today, greater than?50% of which was spent counseling/coordinating care. Reason for contiued inpatient stay Substantial Risk for: inability to function, rapid decompensation and med/psych decompensation Time Spent With Patient Time: Total time managing care of this patient today _20___ minutes.
[2022-02-16] MEDS: OLANZapine 5 MG TABLET PO (20:43)
[2022-02-16] MEDS: Donepezil HCl 5 MG TABLET PO (20:44)
[2022-02-16 20:50] VITALS: BP 125/73; PULSE 72; RESP 18; TEMP 36.1; O2SAT 100
[2022-02-17 08:40] VITALS: BP 119/69; PULSE 72; RESP 18; TEMP 36.8; O2SAT 98
[2022-02-17] MEDS: Aspirin Enteric Coated 81 MG TABLET.DR PO (08:42)
[2022-02-17] MEDS: Furosemide 40 MG TABLET PO (08:42)
[2022-02-17] MEDS: Multivitamin TABLET 1 TAB PO (08:42)
[2022-02-17] MEDS: Omeprazole 20 MG CAPSULE.DR PO (08:42)
[2022-02-17] MEDS: Clopidogrel Bisulfate 75 MG TABLET PO (08:43)
[2022-02-17] MEDS: carvediloL 6.25 MG TABLET PO ×2 (08:43→21:12)
[2022-02-17] MEDS: Magnesium Oxide 400 MG TABLET PO (08:43)
[2022-02-17] MEDS: amLODIPine Besylate 5 MG TABLET PO (08:43)
[2022-02-17] MEDS: lisinopriL 10 MG TABLET PO ×2 (08:44→21:12)
[2022-02-17] MEDS: Cholecalciferol (Vitamin D3) 25 MCG TABLET PO (08:44)
--- NOTE | 2022-02-17 11:48 | P.PNPSI_ITS ---
Subjective Subjective Date of Service: 02/17/22 Reason For Visit: psychosis Subjective Notes: Conditional Voluntary Interim History: The nursing staff reported the patient had been visible in the unit, isolative but easily redirectable. She slept well and she ate 100% of her meals. The staff has noticed the patient sometimes is guarded against his peer who is very intrusive. The occupational therapist reported that she attend to a few groups but mostly she keeps to herself. The social insurance analyst reported that we will have a family meeting probably on [facility] er 18. She remains paranoid and it is clear that her son cannot take care of her. They were considering even the possibility of assisted living facility in the future. On interview the patient denies new symptoms she looks internally preoccupied but easily redirectable. Mental Status Exam Mental Status Exam Patient Appearance: Well Grooomed and Appropriate Patient Orientation: Person and Situation Level of Consciousness: Awake and Appropriate Patient Behavior: Guarded and Passive Mood Description: Suspicious Affect Description: Constricted Patient Cognition Impaired: Yes Ability to Follow Directions: Good Speech Pattern: Clear Hallucinations: None Delusions: Paranoid Ideation and Ideas of Reference Thought Process: Distracted Thought Content: positive for [place] and positive for Circumstantial Judgement: Fair Diagnostics Vital Signs (24Hr): Vital Signs - 24 hr 02/16/22 20:50 02/17/22 08:40 Temperature 96.9 F 98.2 F Pulse Rate 72 72 Respiratory Rate 18 18 Blood Pressure 125/73 119/69 Pulse Oximetry 100 98 Oxygen Delivery Method Room Air Room Air BMI result Body Mass Index 24.7 Labs Results: 02/09/22 20:34 02/11/22 08:09 Imaging Radiology Impressions: ITS Impressions Chest X-Ray 02/09/22 20:00 IMPRESSION: Unremarkable examination. Chest CTA 02/09/22 21:55 IMPRESSION: 1. No evidence of pulmonary emboli. 2. Reflux of contrast into the hepatic veins suggesting elevated right heart pressures VTE: negative Head CT 02/09/22 21:58 IMPRESSION: No acute intracranial pathology. Small chronic infarcts and mild white matter small vessel ischemic changes, unchanged. Medications Medications Current Medications Acetaminophen (Acetaminophen 325 Mg Tablet) 650 mg PO Q6H PRN PRN Reason: Headache/Pain Mild Scale (1-3) Al Hydroxide/Mg Hydroxide (Magnesium Hydrox/Alum Hydrox 30 Ml Oral.Susp) 30 ml PO Q6H PRN PRN Reason: Heartburn/Nausea Amlodipine Besylate (Amlodipine Besylate 5 Mg Tablet) 5 mg PO DAILY [facility]; Protocol Last Admin: 02/17/22 08:43 Dose: 5 mg Aspirin (Aspirin Enteric Coated 81 Mg Tablet.Dr) 81 mg PO DAILY [facility] Last Admin: 02/17/22 08:42 Dose: 81 mg Carvedilol (Carvedilol 6.25 Mg Tablet) 6.25 mg PO BID [facility]; Protocol Last Admin: 02/17/22 08:43 Dose: 6.25 mg Clopidogrel Bisulfate (Clopidogrel Bisulfate 75 Mg Tablet) 75 mg PO DAILY [facility] Last Admin: 02/17/22 08:43 Dose: 75 mg Donepezil HCl (Donepezil Hcl 5 Mg Tablet) 5 mg PO BEDTIME [facility] Last Admin: 02/16/22 20:44 Dose: 5 mg Furosemide (Furosemide 40 Mg Tablet) 40 mg PO DAILY [facility]; Protocol Last Admin: 02/17/22 08:42 Dose: 40 mg Hydroxyzine HCl (Hydroxyzine Hcl 25 Mg Tablet) 25 mg PO Q6H PRN PRN Reason: Anxiety Lisinopril (Lisinopril 10 Mg Tablet) 10 mg PO BID [facility]; Protocol Last Admin: 02/17/22 08:44 Dose: 10 mg Magnesium Hydroxide (Milk Of Magnesia 30 Ml Oral.Susp) 30 ml PO DAILY PRN PRN Reason: Constipation Magnesium Oxide (Magnesium Oxide 400 Mg Tablet) 400 mg PO DAILY [facility] Last Admin: 02/17/22 08:43 Dose: 400 mg Multivitamins/Vitamin C (Multivitamin Tablet) 1 tab PO DAILY [facility] Last Admin: 02/17/22 08:42 Dose: 1 tab Olanzapine (Olanzapine 5 Mg Tablet) 5 mg PO BEDTIME [facility] Last Admin: 02/16/22 20:43 Dose: 5 mg Omeprazole (Omeprazole 20 Mg Capsule.Dr) 20 mg PO DAILY [facility] Last Admin: 02/17/22 08:42 Dose: 20 mg Pharmacy Consult (Consult Rx Perform Med Rec) 1 each MISCELLANE ONCE PRN PRN Reason: Consult order Potassium Chloride (Potassium Chloride Er 10 Meq Capsule.Er) 10 meq PO DAILY [facility] Last Admin: 02/17/22 08:41 Dose: 10 meq Trazodone HCl (Trazodone Hcl 50 Mg Tablet) 50 mg PO BEDTIME PRN PRN Reason: Insomnia Last Admin: 02/14/22 22:17 Dose: 50 mg Vitamin D (Cholecalciferol (Vitamin D3) 25 Mcg Tablet) 25 mcg PO DAILY [facility] Last Admin: 02/17/22 08:44 Dose: 25 mcg Allergies Allergies Allergy/AdvReac Type Severity Reaction Status Date / Time nitrofurantoin Allergy Unknown Verified 02/10/22 06:15 [From Macrobid] haloperidol [From Haldol] AdvReac Numbness Verified 02/10/22 06:15 Assessment & Plan Assessment & Plan (1) Schizoaffective disorder, bipolar type: Status: Acute Code(s): F25.0 - Schizoaffective disorder, bipolar type (2) Dementia: Status: Acute Code(s): F03.90 - Unspecified dementia, unspecified severity, without behavioral disturba nce, psychotic disturbance, mood disturbance, and anxiety Plan The patient is an elderly female with a long history of schizoaffective disorder and cognitive impairment, readmitted again for exacerbation of psychosis in the context of noncompliance. The patient is very well known by this team since this is her 3rd admission in the last year. Plan 1. Gather collateral information, we will call her son and gather more information. 2. Start Zyprexa 5 mg p.o. q.h.s. to target psychosis. 3. Medical workout with basic metabolic panel, lipid panel, liver function test and TSH. So far no changes from baseline. 4. Start discharge planning. I spent ___20___ minutes with the patient and/or on the patient floor today, greater than?50% of which was spent counseling/coordinating care. Reason for contiued inpatient stay Substantial Risk for: inability to function, rapid decompensation and med/psych decompensation Time Spent With Patient Time: Total time managing care of this patient today __20__ minutes.
[2022-02-17 18:00] VITALS: BP 152/78; PULSE 79; RESP 18; TEMP 36.8; O2SAT 98
[2022-02-17] MEDS: Donepezil HCl 5 MG TABLET PO (21:12)
[2022-02-17] MEDS: OLANZapine 5 MG TABLET PO (21:12)
[2022-02-18 06:00] VITALS: BP 148/85; PULSE 79; RESP 17; TEMP 35.6; O2SAT 96
[2022-02-18] MEDS: lisinopriL 10 MG TABLET PO ×2 (08:15→20:47)
[2022-02-18] MEDS: Multivitamin TABLET 1 TAB PO (08:16)
[2022-02-18] MEDS: Magnesium Oxide 400 MG TABLET PO (08:16)
[2022-02-18] MEDS: carvediloL 6.25 MG TABLET PO ×2 (08:16→20:47)
[2022-02-18] MEDS: Omeprazole 20 MG CAPSULE.DR PO (08:16)
[2022-02-18] MEDS: Aspirin Enteric Coated 81 MG TABLET.DR PO (08:16)
[2022-02-18] MEDS: Cholecalciferol (Vitamin D3) 25 MCG TABLET PO (08:16)
[2022-02-18] MEDS: Furosemide 40 MG TABLET PO (08:17)
[2022-02-18] MEDS: amLODIPine Besylate 5 MG TABLET PO (08:17)
[2022-02-18] MEDS: Clopidogrel Bisulfate 75 MG TABLET PO (08:17)
--- NOTE | 2022-02-18 10:51 | HO.PSYCHPN ---
Subjective Subjective Date of Service: 02/18/22 Reason For Visit: psychosis Subjective Notes: Conditional Voluntary Interim History: The nursing staff reported the patient has been compliant with her Zyprexa night. She denies anxiety and depression but she had been suspicious and accusatory to staff. She had a mild tremor in her hands notice by some staff. The geriatric social work professor reported that yesterday was very anxious and her son was contacted for possible discharge back home. We discussed that she usually gets back admitted into the hospital due to noncompliance since there is no oversight of her medications. On interview I discussed treatment options and she agreed to try Klonopin 0.25 p.o. b.i.d. p.r.n. anxiety. Mental Status Exam Mental Status Exam Patient Appearance: Appropriate Patient Orientation: Person and Situation Level of Consciousness: Awake and Appropriate Patient Behavior: Guarded, Passive and Suspicious Mood Description: Withdrawn Affect Description: Constricted Patient Cognition Impaired: Yes Ability to Follow Directions: Good Speech Pattern: Clear Hallucinations: None Delusions: Paranoid Ideation Thought Process: Slowed Thinking Thought Content: positive for [place], positive for [place] and positive for Thought Blocking Judgement: Fair Diagnostics Vital Signs (24Hr): Vital Signs - 24 hr 02/17/22 18:00 02/18/22 06:00 Temperature 98.3 F 96.0 F L Pulse Rate 79 79 Respiratory Rate 18 17 Blood Pressure 152/78 H 148/85 H Pulse Oximetry 98 96 Oxygen Delivery Method Room Air Room Air BMI result Body Mass Index 24.7 Labs Results: 02/09/22 20:34 02/11/22 08:09 Imaging Radiology Impressions: ITS Impressions Chest X-Ray 02/09/22 20:00 IMPRESSION: Unremarkable examination. Chest CTA 02/09/22 21:55 IMPRESSION: 1. No evidence of pulmonary emboli. 2. Reflux of contrast into the hepatic veins suggesting elevated right heart pressures VTE: negative Head CT 02/09/22 21:58 IMPRESSION: No acute intracranial pathology. Small chronic infarcts and mild white matter small vessel ischemic changes, unchanged. Medications Medications Current Medications Acetaminophen (Acetaminophen 325 Mg Tablet) 650 mg PO Q6H PRN PRN Reason: Headache/Pain Mild Scale (1-3) Al Hydroxide/Mg Hydroxide (Magnesium Hydrox/Alum Hydrox 30 Ml Oral.Susp) 30 ml PO Q6H PRN PRN Reason: Heartburn/Nausea Amlodipine Besylate (Amlodipine Besylate 5 Mg Tablet) 5 mg PO DAILY [facility]; Protocol Last Admin: 02/18/22 08:17 Dose: 5 mg Aspirin (Aspirin Enteric Coated 81 Mg Tablet.Dr) 81 mg PO DAILY [facility] Last Admin: 02/18/22 08:16 Dose: 81 mg Carvedilol (Carvedilol 6.25 Mg Tablet) 6.25 mg PO BID [facility]; Protocol Last Admin: 02/18/22 08:16 Dose: 6.25 mg Clonazepam (Clonazepam 0.125 Mg Tab.Rapdis) 0.25 mg PO BID PRN PRN Reason: Anxiety Clopidogrel Bisulfate (Clopidogrel Bisulfate 75 Mg Tablet) 75 mg PO DAILY [facility] Last Admin: 02/18/22 08:17 Dose: 75 mg Donepezil HCl (Donepezil Hcl 5 Mg Tablet) 5 mg PO BEDTIME [facility] Last Admin: 02/17/22 21:12 Dose: 5 mg Furosemide (Furosemide 40 Mg Tablet) 40 mg PO DAILY [facility]; Protocol Last Admin: 02/18/22 08:17 Dose: 40 mg Hydroxyzine HCl (Hydroxyzine Hcl 25 Mg Tablet) 25 mg PO Q6H PRN PRN Reason: Anxiety Lisinopril (Lisinopril 10 Mg Tablet) 10 mg PO BID [facility]; Protocol Last Admin: 02/18/22 08:15 Dose: 10 mg Magnesium Hydroxide (Milk Of Magnesia 30 Ml Oral.Susp) 30 ml PO DAILY PRN PRN Reason: Constipation Magnesium Oxide (Magnesium Oxide 400 Mg Tablet) 400 mg PO DAILY [facility] Last Admin: 02/18/22 08:16 Dose: 400 mg Multivitamins/Vitamin C (Multivitamin Tablet) 1 tab PO DAILY [facility] Last Admin: 02/18/22 08:16 Dose: 1 tab Olanzapine (Olanzapine 5 Mg Tablet) 5 mg PO BEDTIME [facility] Last Admin: 02/17/22 21:12 Dose: 5 mg Omeprazole (Omeprazole 20 Mg Capsule.Dr) 20 mg PO DAILY [facility] Last Admin: 02/18/22 08:16 Dose: 20 mg Pharmacy Consult (Consult Rx Perform Med Rec) 1 each MISCELLANE ONCE PRN PRN Reason: Consult order Potassium Chloride (Potassium Chloride Er 10 Meq Capsule.Er) 10 meq PO DAILY [facility] Last Admin: 02/18/22 08:15 Dose: 10 meq Trazodone HCl (Trazodone Hcl 50 Mg Tablet) 50 mg PO BEDTIME PRN PRN Reason: Insomnia Last Admin: 02/14/22 22:17 Dose: 50 mg Vitamin D (Cholecalciferol (Vitamin D3) 25 Mcg Tablet) 25 mcg PO DAILY [facility] Last Admin: 02/18/22 08:16 Dose: 25 mcg Allergies Allergies Allergy/AdvReac Type Severity Reaction Status Date / Time nitrofurantoin Allergy Unknown Verified 02/10/22 06:15 [From Macrobid] haloperidol [From Haldol] AdvReac Numbness Verified 02/10/22 06:15 Assessment & Plan Assessment & Plan (1) Schizoaffective disorder, bipolar type: Status: Acute Code(s): F25.0 - Schizoaffective disorder, bipolar type (2) Dementia: Status: Acute Code(s): F03.90 - Unspecified dementia, unspecified severity, without behavioral disturbance, psychotic disturbance, mood disturbance, and anxiety Plan The patient is an elderly female with a long history of schizoaffective disorder and cognitive impairment, readmitted again for exacerbation of psychosis in the context of noncompliance. The patient is very well known by this team since this is her 3rd admission in the last year. Plan 1. Gather collateral information, we will call her son and gather more information. 2. Start Zyprexa 5 mg p.o. q.h.s. to target psychosis. 3. Medical workout with basic metabolic panel, lipid panel, liver function test and TSH. So far no changes from baseline. 4. Start discharge planning. 5. Klonopin 0.25 p.o. b.i.d. p.r.n. anxiety started on February 18 I spent __20____ minutes with the patient and/or on the patient floor today, greater than?50% of which was spent counseling/coordinating care. Reason for contiued inpatient stay Substantial Risk for: inability to function, rapid decompensation and med/psych decompensation Time Spent With Patient Time: Total time managing care of this patient today __20__ minutes.
[2022-02-18 18:00] VITALS: BP 149/83; PULSE 89; RESP 18; TEMP 36.9; O2SAT 98
[2022-02-18] MEDS: OLANZapine 5 MG TABLET PO (20:48)
[2022-02-18] MEDS: Donepezil HCl 5 MG TABLET PO (20:48)
[2022-02-19 06:00] VITALS: BP 125/69; PULSE 70; RESP 16; TEMP 36.8; O2SAT 97
[2022-02-19 07:00] VITALS: BMI 25.0
--- NOTE | 2022-02-19 10:01 | HO.PSYCHPN ---
Subjective Subjective Date of Service: 02/19/22 Reason For Visit: psychosis Subjective Notes: Conditional Voluntary Interim History: Pt reports less anxious, although appears suspicious and very hesitant about any medication changes. We discussed possibility of switching to [facility], initially we discussed low dose haldol but this is listed as allergy. Pt asking this teletypewriter operator several times during the day about medication change and whether she should do it or not. She denies SI/HI. No behavioral concerns. Medication Compliance: Yes Review of Systems Review of Systems Constitutional : No Weight loss, No Fever, No Chills, No Fatigue, No Malaise ENT/Mouth : No sore throat, No Rhinorrhea Eyes: No Eye Pain, No Swelling, No Redness Cardiovascular : No Chest Pain, + SOB, No Dyspnea on Exertion, No Orthopnea, No Edema, No Palpitations Respiratory : No Cough, No Sputum, No Wheezing Gastrointestinal : No Nausea, No Vomiting, No Diarrhea, No Constipation, No abdominal Pain, No Hematochezia, No Melena Genitourinary : No Dysuria, No Urinary Frequency, No Hematuria, Musculoskeletal : No joint pain, No Myalgias, No Joint Swelling Skin : No Skin Lesions, No rash Neuro : No Weakness, No Numbness, + Dizziness, No Headache Psych : + Anxiety/Panic, No Depression, + paranoia All other systems reviewed and are negative Yes all other systems are reviewed and are negative Mental Status Exam Mental Status Exam Patient Appearance: Appropriate Patient Orientation: Person and Situation Level of Consciousness: Awake and Appropriate Patient Behavior: Guarded, Passive and Suspicious Mood Description: Withdrawn Affect Description: Constricted Patient Cognition Impaired: Yes Ability to Follow Directions: Good Speech Pattern: Clear Diagnostics Vital Signs (24Hr): Vital Signs - 24 hr 02/20/22 18:00 Temperature 98 F Pulse Rate 69 Respiratory Rate 18 Blood Pressure 142/75 H Pulse Oximetry 97 Oxygen Delivery Method Room Air BMI result Body Mass Index 25.0 Labs Results: 02/09/22 20:34 02/11/22 08:09 Imaging Radiology Impressions: ITS Impressions Chest X-Ray 02/09/22 20:00 IMPRESSION: Unremarkable examination. Chest CTA 02/09/22 21:55 IMPRESSION: 1. No evidence of pulmonary emboli. 2. Reflux of contrast into the hepatic veins suggesting elevated right heart pressures VTE: negative Head CT 02/09/22 21:58 IMPRESSION: No acute intracranial pathology. Small chronic infarcts and mild white matter small vessel ischemic changes, unchanged. Medications Medications Current Medications Acetaminophen (Acetaminophen 325 Mg Tablet) 650 mg PO Q6H PRN PRN Reason: Headache/Pain Mild Scale (1-3) Al Hydroxide/Mg Hydroxide (Magnesium Hydrox/Alum Hydrox 30 Ml Oral.Susp) 30 ml PO Q6H PRN PRN Reason: Heartburn/Nausea Amlodipine Besylate (Amlodipine Besylate 5 Mg Tablet) 5 mg PO DAILY [facility]; Protocol Last Admin: 02/20/22 10:12 Dose: 5 mg Aspirin (Aspirin Enteric Coated 81 Mg Tablet.) 81 mg PO DAILY [facility] Last Admin: 02/20/22 10:12 Dose: 81 mg Carvedilol (Carvedilol 6.25 Mg Tablet) 6.25 mg PO BID [facility]; Protocol Last Admin: 02/20/22 21:10 Dose: 6.25 mg Clonazepam (Clonazepam 0.125 Mg Tab.Rapdis) 0.25 mg PO BID PRN PRN Reason: Anxiety Clopidogrel Bisulfate (Clopidogrel Bisulfate 75 Mg Tablet) 75 mg PO DAILY [facility] Last Admin: 02/20/22 10:12 Dose: 75 mg Donepezil HCl (Donepezil Hcl 5 Mg Tablet) 5 mg PO BEDTIME [facility] Last Admin: 02/20/22 21:10 Dose: 5 mg Furosemide (Furosemide 40 Mg Tablet) 40 mg PO DAILY [facility]; Protocol Last Admin: 02/20/22 10:12 Dose: 40 mg Hydroxyzine HCl (Hydroxyzine Hcl 25 Mg Tablet) 25 mg PO Q6H PRN PRN Reason: Anxiety Lisinopril (Lisinopril 10 Mg Tablet) 10 mg PO BID [facility]; Protocol Last Admin: 02/20/22 21:10 Dose: 10 mg Magnesium Hydroxide (Milk Of Magnesia 30 Ml Oral.Susp) 30 ml PO DAILY PRN PRN Reason: Constipation Magnesium Oxide (Magnesium Oxide 400 Mg Tablet) 400 mg PO DAILY [facility] Last Admin: 02/20/22 10:11 Dose: 400 mg Multivitamins/Vitamin C (Multivitamin Tablet) 1 tab PO DAILY [facility] Last Admin: 02/20/22 10:12 Dose: 1 tab Olanzapine (Olanzapine 5 Mg Tablet) 5 mg PO BEDTIME [facility] Last Admin: 02/20/22 21:11 Dose: 5 mg Omeprazole (Omeprazole 20 Mg Capsule.) 20 mg PO DAILY [facility] Last Admin: 02/20/22 10:11 Dose: 20 mg Pharmacy Consult (Consult Rx Perform Med Rec) 1 each MISCELLANE ONCE PRN PRN Reason: Consult order Potassium Chloride (Potassium Chloride Er 10 Meq Capsule.Er) 10 meq PO DAILY [facility] Last Admin: 02/20/22 10:11 Dose: 10 meq Trazodone HCl (Trazodone Hcl 50 Mg Tablet) 50 mg PO BEDTIME PRN PRN Reason: Insomnia Last Admin: 02/14/22 22:17 Dose: 50 mg Vitamin D (Cholecalciferol (Vitamin D3) 25 Mcg Tablet) 25 mcg PO DAILY [facility] Last Admin: 02/20/22 10:12 Dose: 25 mcg Allergies Allergies Allergy/AdvReac Type Severity Reaction Status Date / Time nitrofurantoin Allergy Unknown Verified 02/10/22 06:15 [From Macrobid] haloperidol [From Haldol] AdvReac Numbness Verified 02/10/22 06:15 Assessment & Plan Assessment & Plan (1) Schizoaffective disorder, bipolar type: Status: Acute Code(s): F25.0 - Schizoaffective disorder, bipolar type (2) Dementia: Status: Acute Code(s): F03.90 - Unspecified dementia, unspecified severity, without behavioral disturbance, psychotic disturbance, mood disturbance, and anxiety Plan The patient is an elderly female with a long history and cognitive impairment, readmitted again for exacerbation of psychosis in the context of noncompliance. The patient is very well known by this team since this is her 3rd admission in the last year. Plan 1. Gather collateral information, we will call her son and gather more information. 2. Start Zyprexa 5 mg p.o. q.h.s. to target psychosis. 3. Medical workout with basic metabolic panel, lipid panel, liver function test and TSH. So far no changes from baseline. 4. Start discharge planning. 5. Klonopin 0.25 p.o. b.i.d. p.r.n. anxiety started on February 1802/19 continue tx. I spent minutes with the patient and/or on the patient floor today, greater than?50% of which was spent counseling/coordinating care. Reason for contiued inpatient stay Substantial Risk for: inability to function Time Spent With Patient Time: Total time managing care of this patient today ____ minutes.
[2022-02-19] MEDS: Multivitamin TABLET 1 TAB PO (10:37)
[2022-02-19] MEDS: Furosemide 40 MG TABLET PO (10:39)
[2022-02-19] MEDS: lisinopriL 10 MG TABLET PO ×2 (10:39→21:27)
[2022-02-19] MEDS: Aspirin Enteric Coated 81 MG TABLET.DR PO (10:40)
[2022-02-19] MEDS: Clopidogrel Bisulfate 75 MG TABLET PO (10:40)
[2022-02-19] MEDS: amLODIPine Besylate 5 MG TABLET PO (10:40)
[2022-02-19] MEDS: Cholecalciferol (Vitamin D3) 25 MCG TABLET PO (10:41)
[2022-02-19] MEDS: carvediloL 6.25 MG TABLET PO ×2 (10:41→21:26)
[2022-02-19] MEDS: Omeprazole 20 MG CAPSULE.DR PO (10:42)
[2022-02-19] MEDS: Magnesium Oxide 400 MG TABLET PO (10:42)
[2022-02-19 18:00] VITALS: BP 135/85; PULSE 75; RESP 16; TEMP 36.2; O2SAT 98
[2022-02-19] MEDS: Donepezil HCl 5 MG TABLET PO (21:27)
[2022-02-19] MEDS: OLANZapine 5 MG TABLET PO (21:28)
[2022-02-20 06:00] VITALS: BP 115/65; PULSE 66; RESP 17; TEMP 36.7; O2SAT 77
[2022-02-20] MEDS: Magnesium Oxide 400 MG TABLET PO (10:11)
[2022-02-20] MEDS: Omeprazole 20 MG CAPSULE.DR PO (10:11)
[2022-02-20] MEDS: Aspirin Enteric Coated 81 MG TABLET.DR PO (10:12)
[2022-02-20] MEDS: lisinopriL 10 MG TABLET PO ×2 (10:12→21:10)
[2022-02-20] MEDS: Cholecalciferol (Vitamin D3) 25 MCG TABLET PO (10:12)
[2022-02-20] MEDS: amLODIPine Besylate 5 MG TABLET PO (10:12)
[2022-02-20] MEDS: Clopidogrel Bisulfate 75 MG TABLET PO (10:12)
[2022-02-20] MEDS: Furosemide 40 MG TABLET PO (10:12)
[2022-02-20] MEDS: Multivitamin TABLET 1 TAB PO (10:12)
[2022-02-20] MEDS: carvediloL 6.25 MG TABLET PO ×2 (10:12→21:10)
--- NOTE | 2022-02-20 11:19 | P.PNPSI_ITS ---
Subjective Subjective Date of Service: 02/20/22 Reason For Visit: psychosis Subjective Notes: Conditional Voluntary Interim History: Pt reports she is doing well but very anxious about possibility of changing medications. She reports less paranoia, and some insight that she takes antipsychotic for this reason. She reports sleeping and eating well, which it is confirmed by nursing. no behavioral concerns. Medication Compliance: Yes Review of Systems Review of Systems Constitutional : No Weight loss, No Fever, No Chills, No Fatigue, No Malaise ENT/Mouth : No sore throat, No Rhinorrhea Eyes: No Eye Pain, No Swelling, No Redness Cardiovascular : No Chest Pain, + SOB, No Dyspnea on Exertion, No Orthopnea, No Edema, No Palpitations Respiratory : No Cough, No Sputum, No Wheezing Gastrointestinal : No Nausea, No Vomiting, No Diarrhea, No Constipation, No abdominal Pain, No Hematochezia, No Melena Genitourinary : No Dysuria, No Urinary Frequency, No Hematuria, Musculoskeletal : No joint pain, No Myalgias, No Joint Swelling Skin : No Skin Lesions, No rash Neuro : No Weakness, No Numbness, + Dizziness, No Headache Psych : + Anxiety/Panic, No Depression, + paranoia All other systems reviewed and are negative Yes all other systems are reviewed and are negative Mental Status Exam Mental Status Exam Patient Appearance: Appropriate Patient Orientation: Person and Situation Level of Consciousness: Awake and Appropriate Patient Behavior: Guarded, Passive and Suspicious Mood Description: Withdrawn Affect Description: Constricted Patient Cognition Impaired: Yes Ability to Follow Directions: Good Speech Pattern: Clear Diagnostics Vital Signs (24Hr): Vital Signs - 24 hr 02/20/22 18:00 Temperature 98 F Pulse Rate 69 Respiratory Rate 18 Blood Pressure 142/75 H Pulse Oximetry 97 Oxygen Delivery Method Room Air BMI result Body Mass Index 25.0 Labs Results: 02/09/22 20:34 02/11/22 08:09 Imaging Radiology Impressions: ITS Impressions Chest X-Ray 02/09/22 20:00 IMPRESSION: Unremarkable examination. Chest CTA 02/09/22 21:55 IMPRESSION: 1. No evidence of pulmonary emboli. 2. Reflux of contrast into the hepatic veins suggesting elevated right heart pressures VTE: negative Head CT 02/09/22 21:58 IMPRESSION: No acute intracranial pathology. Small chronic infarcts and mild white matter small vessel ischemic changes, unchanged. Medications Medications Current Medications Acetaminophen (Acetaminophen 325 Mg Tablet) 650 mg PO Q6H PRN PRN Reason: Headache/Pain Mild Scale (1-3) Al Hydroxide/Mg Hydroxide (Magnesium Hydrox/Alum Hydrox 30 Ml Oral.Susp) 30 ml PO Q6H PRN PRN Reason: Heartburn/Nausea Amlodipine Besylate (Amlodipine Besylate 5 Mg Tablet) 5 mg PO DAILY [facility]; Protocol Last Admin: 02/20/22 10:12 Dose: 5 mg Aspirin (Aspirin Enteric Coated 81 Mg Tablet.) 81 mg PO DAILY [facility] Last Admin: 02/20/22 10:12 Dose: 81 mg Carvedilol (Carvedilol 6.25 Mg Tablet) 6.25 mg PO BID [facility]; Protocol Last Admin: 02/20/22 21:10 Dose: 6.25 mg Clonazepam (Clonazepam 0.125 Mg Tab.Rapdis) 0.25 mg PO BID PRN PRN Reason: Anxiety Clopidogrel Bisulfate (Clopidogrel Bisulfate 75 Mg Tablet) 75 mg PO DAILY [facility] Last Admin: 02/20/22 10:12 Dose: 75 mg Donepezil HCl (Donepezil Hcl 5 Mg Tablet) 5 mg PO BEDTIME [facility] Last Admin: 02/20/22 21:10 Dose: 5 mg Furosemide (Furosemide 40 Mg Tablet) 40 mg PO DAILY [facility]; Protocol Last Admin: 02/20/22 10:12 Dose: 40 mg Hydroxyzine HCl (Hydroxyzine Hcl 25 Mg Tablet) 25 mg PO Q6H PRN PRN Reason: Anxiety Lisinopril (Lisinopril 10 Mg Tablet) 10 mg PO BID [facility]; Protocol Last Admin: 02/20/22 21:10 Dose: 10 mg Magnesium Hydroxide (Milk Of Magnesia 30 Ml Oral.Susp) 30 ml PO DAILY PRN PRN Reason: Constipation Magnesium Oxide (Magnesium Oxide 400 Mg Tablet) 400 mg PO DAILY [facility] Last Admin: 02/20/22 10:11 Dose: 400 mg Multivitamins/Vitamin C (Multivitamin Tablet) 1 tab PO DAILY [facility] Last Admin: 02/20/22 10:12 Dose: 1 tab Olanzapine (Olanzapine 5 Mg Tablet) 5 mg PO BEDTIME [facility] Last Admin: 02/20/22 21:11 Dose: 5 mg Omeprazole (Omeprazole 20 Mg Capsule.) 20 mg PO DAILY [facility] Last Admin: 02/20/22 10:11 Dose: 20 mg Pharmacy Consult (Consult Rx Perform Med Rec) 1 each MISCELLANE ONCE PRN PRN Reason: Consult order Potassium Chloride (Potassium Chloride Er 10 Meq Capsule.Er) 10 meq PO DAILY [facility] Last Admin: 02/20/22 10:11 Dose: 10 meq Trazodone HCl (Trazodone Hcl 50 Mg Tablet) 50 mg PO BEDTIME PRN PRN Reason: Insomnia Last Admin: 02/14/22 22:17 Dose: 50 mg Vitamin D (Cholecalciferol (Vitamin D3) 25 Mcg Tablet) 25 mcg PO DAILY [facility] Last Admin: 02/20/22 10:12 Dose: 25 mcg Allergies Allergies Allergy/AdvReac Type Severity Reaction Status Date / Time nitrofurantoin Allergy Unknown Verified 02/10/22 06:15 [From Macrobid] haloperidol [From Haldol] AdvReac Numbness Verified 02/10/22 06:15 Assessment & Plan Assessment & Plan (1) Schizoaffective disorder, bipolar type: Status: Acute Code(s): F25.0 - Schizoaffective disorder, bipolar type (2) Dementia: Status: Acute Code(s): F03.90 - Unspecified dementia, unspecified severity, without behavioral disturbance, psychotic disturbance, mood disturbance, and anxiety Plan The patient is an elderly female with a long history and cognitive impairment, readmitted again for exacerbation of psychosis in the context of noncompliance. The patient is very well known by this team since this is her 3rd admission in the last year. Plan 1. Gather collateral information, we will call her son and gather more information. 2. Start Zyprexa 5 mg p.o. q.h.s. to target psychosis. 3. Medical workout with basic metabolic panel, lipid panel, liver function test and TSH. So far no changes from baseline. 4. Start discharge planning. 5. Klonopin 0.25 p.o. b.i.d. p.r.n. anxiety started on February 1802/19 continue tx. 02/20 continue tx. may have to check with insurance which [place] other than haldol may be covered. I spent minutes with the patient and/or on the patient floor today, greater than?50% of which was spent counseling/coordinating care. Reason for contiued inpatient stay Substantial Risk for: inability to function Time Spent With Patient Time: Total time managing care of this patient today ____ minutes.
[2022-02-20 18:00] VITALS: BP 142/75; PULSE 69; RESP 18; TEMP 36.6; O2SAT 97
[2022-02-20] MEDS: Donepezil HCl 5 MG TABLET PO (21:10)
[2022-02-20] MEDS: OLANZapine 5 MG TABLET PO (21:11)
[2022-02-21 06:00] VITALS: BP 136/81; PULSE 71; RESP 18; TEMP 36.7; O2SAT 95
[2022-02-21] MEDS: Multivitamin TABLET 1 TAB PO (09:26)
[2022-02-21] MEDS: Clopidogrel Bisulfate 75 MG TABLET PO (09:26)
[2022-02-21] MEDS: Magnesium Oxide 400 MG TABLET PO (09:26)
[2022-02-21] MEDS: lisinopriL 10 MG TABLET PO ×2 (09:26→20:21)
[2022-02-21] MEDS: Aspirin Enteric Coated 81 MG TABLET.DR PO (09:26)
[2022-02-21] MEDS: carvediloL 6.25 MG TABLET PO ×2 (09:26→20:21)
[2022-02-21] MEDS: Furosemide 40 MG TABLET PO (09:26)
[2022-02-21] MEDS: Cholecalciferol (Vitamin D3) 25 MCG TABLET PO (09:26)
[2022-02-21] MEDS: amLODIPine Besylate 5 MG TABLET PO (09:27)
[2022-02-21] MEDS: Omeprazole 20 MG CAPSULE.DR PO (09:27)
--- NOTE | 2022-02-21 17:14 | P.PNPSI_ITS ---
Subjective Subjective Date of Service: 02/21/22 Reason For Visit: psychosis Interim History: Pt continues to be anxious and repetitive in her questions. Some ambivalence related to making decisions, even simple ones. No overt delusional content noted; some somatic preocupation and mistrust of medications and tests. No SI/HI. She reports eating and sleeping well. She asks if she is being discharged soon, states she will be open to referral to rest home, which she understands has nursing and can give her her medications. She is isolated to her room, given that roommate was positive for covid, pt was negative yesterday but will do another covid test tomorrow morning. Review of Systems Review of Systems Constitutional : No Weight loss, No Fever, No Chills, No Fatigue, No Malaise ENT/Mouth : No sore throat, No Rhinorrhea Eyes: No Eye Pain, No Swelling, No Redness Cardiovascular : No Chest Pain, + SOB, No Dyspnea on Exertion, No Orthopnea, No Edema, No Palpitations Respiratory : No Cough, No Sputum, No Wheezing Gastrointestinal : No Nausea, No Vomiting, No Diarrhea, No Constipation, No abdominal Pain, No Hematochezia, No Melena Genitourinary : No Dysuria, No Urinary Frequency, No Hematuria, Musculoskeletal : No joint pain, No Myalgias, No Joint Swelling Skin : No Skin Lesions, No rash Neuro : No Weakness, No Numbness, + Dizziness, No Headache Psych : + Anxiety/Panic, No Depression, + paranoia All other systems reviewed and are negative Yes all other systems are reviewed and are negative Mental Status Exam Mental Status Exam Narrative: Appearance: casually groomed, good hygiene, in NAD Behavior: cooperative, bit suspicious Speech: clear, repetitive, no delayed in responses, spontaneous Psychomotor: no agitation or retardation noted TP: repetitive TC: no overt psychosis but anxious about any changes with medications, wanting to go home soon Mood: okay SI: denies HI: denies AH/VH: none Delusions: none Insight/judgment: poor x 2. Memory/cog: alert, oriented x 3. suspect underlying cognitive impairments but not formally tested today. Patient Appearance: Fatigued and Appropriate Patient Orientation: Person, Place and Situation Level of Consciousness: Alert Patient Behavior: Appropriate, Guarded, Talkative, Cooperative and Good Eye Contact Mood Description: Flat Affect Description: Flat Patient Cognition Impaired: No Ability to Follow Directions: Good Speech Pattern: Spontaneous Speech Memory Description: Episodic Impaired Diagnostics Vital Signs (24Hr): Vital Signs - 24 hr 02/20/22 18:00 02/21/22 06:00 Temperature 98 F 98.1 F Pulse Rate 69 71 Respiratory Rate 18 18 Blood Pressure 142/75 H 136/81 Pulse Oximetry 97 95 Oxygen Delivery Method Room Air Room Air BMI result Body Mass Index 25.0 Labs 02/09/22 20:34 02/11/22 08:09 Imaging Radiology Impressions: ITS Impressions Chest X-Ray 02/09/22 20:00 IMPRESSION: Unremarkable examination. Chest CTA 02/09/22 21:55 IMPRESSION: 1. No evidence of pulmonary emboli. 2. Reflux of contrast into the hepatic veins suggesting elevated right heart pressures VTE: negative Head CT 02/09/22 21:58 IMPRESSION: No acute intracranial pathology. Small chronic infarcts and mild white matter small vessel ischemic changes, unchanged. Medications Medications Current Medications Acetaminophen (Acetaminophen 325 Mg Tablet) 650 mg PO Q6H PRN PRN Reason: Headache/Pain Mild Scale (1-3) Al Hydroxide/Mg Hydroxide (Magnesium Hydrox/Alum Hydrox 30 Ml Oral.Susp) 30 ml PO Q6H PRN PRN Reason: Heartburn/Nausea Amlodipine Besylate (Amlodipine Besylate 5 Mg Tablet) 5 mg PO DAILY [facility]; Protocol Last Admin: 02/21/22 09:27 Dose: 5 mg Aspirin (Aspirin Enteric Coated 81 Mg Tablet.Dr) 81 mg PO DAILY [facility] Last Admin: 02/21/22 09:26 Dose: 81 mg Carvedilol (Carvedilol 6.25 Mg Tablet) 6.25 mg PO BID [facility]; Protocol Last Admin: 02/21/22 09:26 Dose: 6.25 mg Clonazepam (Clonazepam 0.125 Mg Tab.Rapdis) 0.25 mg PO BID PRN PRN Reason: Anxiety Clopidogrel Bisulfate (Clopidogrel Bisulfate 75 Mg Tablet) 75 mg PO DAILY [facility] Last Admin: 02/21/22 09:26 Dose: 75 mg Donepezil HCl (Donepezil Hcl 5 Mg Tablet) 5 mg PO BEDTIME [facility] Last Admin: 02/20/22 21:10 Dose: 5 mg Furosemide (Furosemide 40 Mg Tablet) 40 mg PO DAILY [facility]; Protocol Last Admin: 02/21/22 09:26 Dose: 40 mg Hydroxyzine HCl (Hydroxyzine Hcl 25 Mg Tablet) 25 mg PO Q6H PRN PRN Reason: Anxiety Lisinopril (Lisinopril 10 Mg Tablet) 10 mg PO BID [facility]; Protocol Last Admin: 02/21/22 09:26 Dose: 10 mg Magnesium Hydroxide (Milk Of Magnesia 30 Ml Oral.Susp) 30 ml PO DAILY PRN PRN Reason: Constipation Magnesium Oxide (Magnesium Oxide 400 Mg Tablet) 400 mg PO DAILY [facility] Last Admin: 02/21/22 09:26 Dose: 400 mg Multivitamins/Vitamin C (Multivitamin Tablet) 1 tab PO DAILY [facility] Last Admin: 02/21/22 09:26 Dose: 1 tab Olanzapine (Olanzapine 5 Mg Tablet) 5 mg PO BEDTIME [facility] Last Admin: 02/20/22 21:11 Dose: 5 mg Omeprazole (Omeprazole 20 Mg Capsule.Dr) 20 mg PO DAILY [facility] Last Admin: 02/21/22 09:27 Dose: 20 mg Pharmacy Consult (Consult Rx Perform Med Rec) 1 each MISCELLANE ONCE PRN PRN Reason: Consult order Potassium Chloride (Potassium Chloride Er 10 Meq Capsule.Er) 10 meq PO DAILY [facility] Last Admin: 02/21/22 09:27 Dose: 10 meq Trazodone HCl (Trazodone Hcl 50 Mg Tablet) 50 mg PO BEDTIME PRN PRN Reason: Insomnia Last Admin: 02/14/22 22:17 Dose: 50 mg Vitamin D (Cholecalciferol (Vitamin D3) 25 Mcg Tablet) 25 mcg PO DAILY [facility] Last Admin: 02/21/22 09:26 Dose: 25 mcg Allergies Allergies Allergy/AdvReac Type Severity Reaction Status Date / Time nitrofurantoin Allergy Unknown Verified 02/10/22 06:15 [From Macrobid] haloperidol [From Haldol] AdvReac Numbness Verified 02/10/22 06:15 Assessment & Plan Assessment & Plan (1) Schizoaffective disorder, bipolar type: Status: Acute Code(s): F25.0 - Schizoaffective disorder, bipolar type (2) Dementia: Status: Acute Code(s): F03.90 - Unspecified dementia, unspecified severity, without behavioral disturbance, psychotic disturbance, mood disturbance, and anxiety Plan The patient is an elderly female with a long history and cognitive impairment, readmitted again for exacerbation of psychosis in the context of noncompliance. The patient is very well known by this team since this is her 3rd admission in the last year. Plan 1. Gather collateral information, we will call her son and gather more information. 2. Start Zyprexa 5 mg p.o. q.h.s. to target psychosis. 3. Medical workout with basic metabolic panel, lipid panel, liver function test and TSH. So far no changes from baseline. 4. Start discharge planning. 5. Klonopin 0.25 p.o. b.i.d. p.r.n. anxiety started on February 1802/19 continue tx. 02/20 continue tx. may have to check with insurance which [place] other than haldol may be covered. 02/21 continue treatmentplan I spent minutes with the patient and/or on the patient floor today, greater than?50% of which was spent counseling/coordinating care. Reason for contiued inpatient stay Substantial Risk for: inability to function, rapid decompensation and med/psych decompensation Time Spent With Patient Time: Total time managing care of this patient today ____ minutes.
[2022-02-21 19:00] VITALS: BP 144/80; PULSE 73; RESP 18; TEMP 36.4; O2SAT 98
[2022-02-21] MEDS: OLANZapine 5 MG TABLET PO (20:21)
[2022-02-21] MEDS: Donepezil HCl 5 MG TABLET PO (20:21)
[2022-02-22 06:00] VITALS: BP 140/74; PULSE 69; RESP 18; TEMP 36.4; O2SAT 96
[2022-02-22] MEDS: lisinopriL 10 MG TABLET PO ×2 (09:26→20:20)
[2022-02-22] MEDS: Magnesium Oxide 400 MG TABLET PO (09:27)
[2022-02-22] MEDS: Clopidogrel Bisulfate 75 MG TABLET PO (09:27)
[2022-02-22] MEDS: Cholecalciferol (Vitamin D3) 25 MCG TABLET PO (09:27)
[2022-02-22] MEDS: Aspirin Enteric Coated 81 MG TABLET.DR PO (09:27)
[2022-02-22] MEDS: carvediloL 6.25 MG TABLET PO ×2 (09:27→20:19)
[2022-02-22] MEDS: amLODIPine Besylate 5 MG TABLET PO (09:27)
[2022-02-22] MEDS: Furosemide 40 MG TABLET PO (09:27)
[2022-02-22] MEDS: Multivitamin TABLET 1 TAB PO (09:27)
[2022-02-22] MEDS: Omeprazole 20 MG CAPSULE.DR PO (09:27)
--- NOTE | 2022-02-22 15:48 | P.PNPSI_ITS ---
Subjective Subjective Date of Service: 02/22/22 Reason For Visit: psychosis Interim History: Discussed with team, chart reviewed, met with pt who is awake but in bed. Some questions about medication, namely Olanzapine. [place] nugent of concern today Has an open area on he el which will need ongoing monitoring. Medication Compliance: Yes Side effects from medications: No Attending Groups: Yes Review of Systems Acute medical concerns: No Medical Review of Systems: unchanged Mental Status Exam Mental Status Exam Patient Appearance: Fatigued and Appropriate Patient Orientation: Person, Place and Situation Level of Consciousness: Alert Patient Behavior: Appropriate, Guarded, Talkative, Cooperative and Good Eye Contact Mood Description: Flat Affect Description: Flat Patient Cognition Impaired: No Ability to Follow Directions: Good Speech Pattern: Spontaneous Speech Memory Description: Episodic Impaired Hallucinations: None Delusions: Not Present Thought Process: Intact Thought Content: positive for [place], positive for Circumstantial and positive for Suicidal Ideation (denies) Depressive Symptoms: Thoughts of /Suicide (denies) Judgement: Fair Diagnostics Vital Signs (24Hr): Vital Signs - 24 hr 02/21/22 19:00 02/22/22 06:00 Temperature 97.5 F 97.6 F Pulse Rate 73 69 Respiratory Rate 18 18 Blood Pressure 144/80 H 140/74 H Pulse Oximetry 98 96 Oxygen Delivery Method Room Air Room Air BMI result Body Mass Index 25.0 Labs Results: 02/09/22 20:34 02/11/22 08:09 Imaging Radiology Impressions: ITS Impressions Chest X-Ray 02/09/22 20:00 IMPRESSION: Unremarkable examination. Chest CTA 02/09/22 21:55 IMPRESSION: 1. No evidence of pulmonary emboli. 2. Reflux of contrast into the hepatic veins suggesting elevated right heart pressures VTE: negative Head CT 02/09/22 21:58 IMPRESSION: No acute intracranial pathology. Small chronic infarcts and mild white matter small vessel ischemic changes, unchanged. Medications Medications Current Medications Acetaminophen (Acetaminophen 325 Mg Tablet) 650 mg PO Q6H PRN PRN Reason: Headache/Pain Mild Scale (1-3) Al Hydroxide/Mg Hydroxide (Magnesium Hydrox/Alum Hydrox 30 Ml Oral.Susp) 30 ml PO Q6H PRN PRN Reason: Heartburn/Nausea Amlodipine Besylate (Amlodipine Besylate 5 Mg Tablet) 5 mg PO DAILY [facility]; Protocol Last Admin: 02/22/22 09:27 Dose: 5 mg Aspirin (Aspirin Enteric Coated 81 Mg Tablet.) 81 mg PO DAILY [facility] Last Admin: 02/22/22 09:27 Dose: 81 mg Carvedilol (Carvedilol 6.25 Mg Tablet) 6.25 mg PO BID [facility]; Protocol Last Admin: 02/22/22:27 Dose: 6.25 mg Clonazepam (Clonazepam 0.125 Mg Tab.Rapdis) 0.25 mg PO BID PRN PRN Reason: Anxiety Clopidogrel Bisulfate (Clopidogrel Bisulfate 75 Mg Tablet) 75 mg PO DAILY [facility] Last Admin: 02/22/22:27 Dose: 75 mg Donepezil HCl (Donepezil Hcl 5 Mg Tablet) 5 mg PO BEDTIME [facility] Last Admin: 02/21/22 20:21 Dose: 5 mg Furosemide (Furosemide 40 Mg Tablet) 40 mg PO DAILY [facility]; Protocol Last Admin: 02/22/22:27 Dose: 40 mg Hydroxyzine HCl (Hydroxyzine Hcl 25 Mg Tablet) 25 mg PO Q6H PRN PRN Reason: Anxiety Lisinopril (Lisinopril 10 Mg Tablet) 10 mg PO BID [facility]; Protocol Last Admin: 02/22/22 09:26 Dose: 10 mg Magnesium Hydroxide (Milk Of Magnesia 30 Ml Oral.Susp) 30 ml PO DAILY PRN PRN Reason: Constipation Magnesium Oxide (Magnesium Oxide 400 Mg Tablet) 400 mg PO DAILY [facility] Last Admin: 02/22/22:27 Dose: 400 mg Multivitamins/Vitamin C (Multivitamin Tablet) 1 tab PO DAILY [facility] Last Admin: 02/22/22:27 Dose: 1 tab Olanzapine (Olanzapine 5 Mg Tablet) 5 mg PO BEDTIME [facility] Last Admin: 02/21/22 20:21 Dose: 5 mg Omeprazole (Omeprazole 20 Mg Capsule.Dr) 20 mg PO DAILY [facility] Last Admin: 02/22/22 09:27 Dose: 20 mg Pharmacy Consult (Consult Rx Perform Med Rec) 1 each MISCELLANE ONCE PRN PRN Reason: Consult order Potassium Chloride (Potassium Chloride Er 10 Meq Capsule.Er) 10 meq PO DAILY [facility] Last Admin: 02/22/22 09:26 Dose: 10 meq Trazodone HCl (Trazodone Hcl 50 Mg Tablet) 50 mg PO BEDTIME PRN PRN Reason: Insomnia Last Admin: 02/14/22 22:17 Dose: 50 mg Vitamin D (Cholecalciferol (Vitamin D3) 25 Mcg Tablet) 25 mcg PO DAILY [facility] Last Admin: 02/22/22 09:27 Dose: 25 mcg Allergies Allergies Allergy/AdvReac Type Severity Reaction Status Date / Time nitrofurantoin Allergy Unknown Verified 02/10/22 06:15 [From Macrobid] haloperidol [From Haldol] AdvReac Numbness Verified 02/10/22 06:15 Assessment & Plan Assessment & Plan (1) Schizoaffective disorder, bipolar type: Status: Acute Code(s): F25.0 - Schizoaffective disorder, bipolar type (2) Dementia: Status: Acute Code(s): F03.90 - Unspecified dementia, unspecified severity, without behavioral disturbance, psychotic disturbance, mood disturbance, and anxiety Plan The patient is an elderly female with a long history and cognitive impairment, readmitted again for exacerbation of psychosis in the context of noncompliance. The patient is very well known by this team since this is her 3rd admission in the last year. Plan 1. Gather collateral information, we will call her son and gather more information. 2. Start Zyprexa 5 mg p.o. q.h.s. to target psychosis. 3. Medical workout with basic metabolic panel, lipid panel, liver function test and TSH. So far no changes from baseline. 4. Start discharge planning. 5. Klonopin 0.25 p.o. b.i.d. p.r.n. anxiety started on February 1802/19 continue tx. 02/20 continue tx. may have to check with insurance which [place] other than haldol may be covered. 02/22/22 Continue current plan. I spent minutes with the patient and/or on the patient floor today, greater than?50% of which was spent counseling/coordinating care. Patient educated on: medication risk/benefits and therapeutic strategies Informed Consent: further education needed Reason for contiued inpatient stay Substantial Risk for: rapid decompensation Time Spent With Patient Time: Total time managing care of this patient today ___15_ minutes.
[2022-02-22 18:00] VITALS: BP 151/80; PULSE 78; RESP 20; TEMP 36.6; O2SAT 98
[2022-02-22] MEDS: OLANZapine 5 MG TABLET PO (20:19)
[2022-02-22] MEDS: Donepezil HCl 5 MG TABLET PO (20:19)
[2022-02-23 07:30] VITALS: BP 129/66; PULSE 64; RESP 15; TEMP 36.7; O2SAT 97
[2022-02-23] MEDS: Cholecalciferol (Vitamin D3) 25 MCG TABLET PO (10:47)
[2022-02-23] MEDS: Aspirin Enteric Coated 81 MG TABLET.DR PO (10:47)
[2022-02-23] MEDS: Multivitamin TABLET 1 TAB PO (10:48)
[2022-02-23] MEDS: Clopidogrel Bisulfate 75 MG TABLET PO (10:48)
[2022-02-23] MEDS: lisinopriL 10 MG TABLET PO ×2 (10:48→21:15)
[2022-02-23] MEDS: Furosemide 40 MG TABLET PO (10:48)
[2022-02-23] MEDS: carvediloL 6.25 MG TABLET PO ×2 (10:48→21:15)
[2022-02-23] MEDS: Magnesium Oxide 400 MG TABLET PO (10:48)
[2022-02-23] MEDS: Omeprazole 20 MG CAPSULE.DR PO (10:48)
[2022-02-23] MEDS: amLODIPine Besylate 5 MG TABLET PO (10:48)
--- NOTE | 2022-02-23 11:24 | P.PNPSI_ITS ---
Subjective Subjective Date of Service: 02/23/22 Reason For Visit: psychosis Subjective Notes: Conditional Voluntary Interim History: Pt presents as anxious and repetitive in her questions. Some ambivalence related to making decisions, even simple ones. No overt delusional content noted or reported. No SI/HI. She reports eating and sleeping well. She asks if she is being discharged soon, states she will be open to referral to rest home, which she understands has nursing and can give her her medications. Review of Systems Review of Systems Constitutional : No Weight loss, No Fever, No Chills, No Fatigue, No Malaise ENT/Mouth : No sore throat, No Rhinorrhea Eyes: No Eye Pain, No Swelling, No Redness Cardiovascular : No Chest Pain, + SOB, No Dyspnea on Exertion, No Orthopnea, No Edema, No Palpitations Respiratory : No Cough, No Sputum, No Wheezing Gastrointestinal : No Nausea, No Vomiting, No Diarrhea, No Constipation, No abdominal Pain, No Hematochezia, No Melena Genitourinary : No Dysuria, No Urinary Frequency, No Hematuria, Musculoskeletal : No joint pain, No Myalgias, No Joint Swelling Skin : No Skin Lesions, No rash Neuro : No Weakness, No Numbness, + Dizziness, No Headache Psych : + Anxiety/Panic, No Depression, + paranoia All other systems reviewed and are negative Yes all other systems are reviewed and are negative Mental Status Exam Mental Status Exam Narrative: Appearance: casually groomed, good hygiene, in NAD Behavior: cooperative, bit suspicious Speech: clear, repetitive, no delayed in responses, spontaneous Psychomotor: no agitation or retardation noted TP: repetitive TC: no overt psychosis but anxious about any changes with medications, wanting to go home soon Mood: okay SI: denies HI: denies AH/VH: none Delusions: none Insight/judgment: poor x 2. Memory/cog: alert, oriented x 3. suspect underlying cognitive impairments but not formally tested today. Diagnostics Vital Signs (24Hr): Vital Signs - 24 hr 02/22/22 18:00 Temperature 98 F Pulse Rate 78 Respiratory Rate 20 Blood Pressure 151/80 H Pulse Oximetry 98 Oxygen Delivery Method Room Air BMI result Body Mass Index 25.0 Labs Results: 02/09/22 20:34 02/11/22 08:09 Imaging Radiology Impressions: ITS Impressions Chest X-Ray 02/09/22 20:00 IMPRESSION: Unremarkable examination. Chest CTA 02/09/22 21:55 IMPRESSION: 1. No evidence of pulmonary emboli. 2. Reflux of contrast into the hepatic veins suggesting elevated right heart pressures VTE: negative Head CT 02/09/22 21:58 IMPRESSION: No acute intracranial pathology. Small chronic infarcts and mild white matter small vessel ischemic changes, unchanged. Medications Medications Current Medications Acetaminophen (Acetaminophen 325 Mg Tablet) 650 mg PO Q6H PRN PRN Reason: Headache/Pain Mild Scale (1-3) Al Hydroxide/Mg Hydroxide (Magnesium Hydrox/Alum Hydrox 30 Ml Oral.Susp) 30 ml PO Q6H PRN PRN Reason: Heartburn/Nausea Amlodipine Besylate (Amlodipine Besylate 5 Mg Tablet) 5 mg PO DAILY [facility]; Protocol Last Admin: 02/23/22 10:48 Dose: 5 mg Aspirin (Aspirin Enteric Coated 81 Mg Tablet.Dr) 81 mg PO DAILY [facility] Last Admin: 02/23/22 10:47 Dose: 81 mg Carvedilol (Carvedilol 6.25 Mg Tablet) 6.25 mg PO BID [facility]; Protocol Last Admin: 02/23/22 10:48 Dose: 6.25 mg Clopidogrel Bisulfate (Clopidogrel Bisulfate 75 Mg Tablet) 75 mg PO DAILY [facility] Last Admin: 02/23/22 10:48 Dose: 75 mg Donepezil HCl (Donepezil Hcl 5 Mg Tablet) 5 mg PO BEDTIME [facility] Last Admin: 02/22/22 20:19 Dose: 5 mg Furosemide (Furosemide 40 Mg Tablet) 40 mg PO DAILY [facility]; Protocol Last Admin: 02/23/22 10:48 Dose: 40 mg Hydroxyzine HCl (Hydroxyzine Hcl 25 Mg Tablet) 25 mg PO Q6H PRN PRN Reason: Anxiety Lisinopril (Lisinopril 10 Mg Tablet) 10 mg PO BID [facility]; Protocol Last Admin: 02/23/22 10:48 Dose: 10 mg Magnesium Hydroxide (Milk Of Magnesia 30 Ml Oral.Susp) 30 ml PO DAILY PRN PRN Reason: Constipation Magnesium Oxide (Magnesium Oxide 400 Mg Tablet) 400 mg PO DAILY [facility] Last Admin: 02/23/22 10:48 Dose: 400 mg Multivitamins/Vitamin C (Multivitamin Tablet) 1 tab PO DAILY [facility] Last Admin: 02/23/22 10:48 Dose: 1 tab Olanzapine (Olanzapine 5 Mg Tablet) 5 mg PO BEDTIME [facility] Last Admin: 02/22/22 20:19 Dose: 5 mg Omeprazole (Omeprazole 20 Mg Capsule.Dr) 20 mg PO DAILY [facility] Last Admin: 02/23/22 10:48 Dose: 20 mg Pharmacy Consult (Consult Rx Perform Med Rec) 1 each MISCELLANE ONCE PRN PRN Reason: Consult order Potassium Chloride (Potassium Chloride Er 10 Meq Capsule.Er) 10 meq PO DAILY [facility] Last Admin: 02/23/22 10:47 Dose: 10 meq Trazodone HCl (Trazodone Hcl 50 Mg Tablet) 50 mg PO BEDTIME PRN PRN Reason: Insomnia Last Admin: 02/14/22 22:17 Dose: 50 mg Vitamin D (Cholecalciferol (Vitamin D3) 25 Mcg Tablet) 25 mcg PO DAILY [facility] Last Admin: 02/23/22 10:47 Dose: 25 mcg Allergies Allergies Allergy/AdvReac Type Severity Reaction Status Date / Time nitrofurantoin Allergy Unknown Verified 02/10/22 06:15 [From Macrobid] haloperidol [From Haldol] AdvReac Numbness Verified 02/10/22 06:15 Assessment & Plan Assessment & Plan (1) Schizoaffective disorder, bipolar type: Status: Acute Code(s): F25.0 - Schizoaffective disorder, bipolar type (2) Dementia: Status: Acute Code(s): F03.90 - Unspecified dementia, unspecified severity, without behavioral disturbance, psychotic disturbance, mood disturbance, and anxiety Plan The patient is an elderly female with a long history and cognitive impairment, readmitted again for exacerbation of psychosis in the context of noncompliance. The patient is very well known by this team since this is her 3rd admission in the last year. Plan 1. Gather collateral information, we will call her son and gather more information. 2. Start Zyprexa 5 mg p.o. q.h.s. to target psychosis. 3. Medical workout with basic metabolic panel, lipid panel, liver function test and TSH. So far no changes from baseline. 4. Start discharge planning. 5. Klonopin 0.25 p.o. b.i.d. p.r.n. anxiety started on February 1802/19 continue tx. 02/20 continue tx. may have to check with insurance which SCOTT other than haldol may be covered. 02/22/22 Continue current plan. 02/23 continue tx. I spent minutes with the patient and/or on the patient floor today, greater than?50% of which was spent counseling/coordinating care. Reason for contiued inpatient stay Substantial Risk for: stable for discharge Time Spent With Patient Time: Total time managing care of this patient today ____ minutes.
[2022-02-23 12:15] LABS: Influenza A PCR NEGATIVE (Negative); Influenza B PCR NEGATIVE (Negative); Resp Syncy Virus RNA Qual PCR NEGATIVE (Negative); SARS COV2 PCR INHOUSE NEGATIVE (Negative)
[2022-02-23] MEDS: Loperamide HCl 2 MG CAPSULE PO (16:34)
[2022-02-23 18:00] VITALS: BP 155/74; PULSE 69; RESP 16; TEMP 36.8; O2SAT 97
[2022-02-23] MEDS: OLANZapine 5 MG TABLET PO (21:15)
[2022-02-23] MEDS: Donepezil HCl 5 MG TABLET PO (21:16)
[2022-02-24 06:00] VITALS: BP 152/78; PULSE 82; TEMP 37
[2022-02-24] MEDS: carvediloL 6.25 MG TABLET PO ×2 (09:48→21:05)
[2022-02-24] MEDS: Furosemide 40 MG TABLET PO (09:48)
[2022-02-24] MEDS: lisinopriL 10 MG TABLET PO ×2 (09:48→21:04)
[2022-02-24] MEDS: Omeprazole 20 MG CAPSULE.DR PO (09:48)
[2022-02-24] MEDS: Clopidogrel Bisulfate 75 MG TABLET PO (09:49)
[2022-02-24] MEDS: Cholecalciferol (Vitamin D3) 25 MCG TABLET PO (09:49)
[2022-02-24] MEDS: Aspirin Enteric Coated 81 MG TABLET.DR PO (09:49)
[2022-02-24] MEDS: Magnesium Oxide 400 MG TABLET PO (09:50)
[2022-02-24] MEDS: Multivitamin TABLET 1 TAB PO (09:50)
[2022-02-24] MEDS: amLODIPine Besylate 5 MG TABLET PO (09:50)
--- NOTE | 2022-02-24 14:05 | P.PNPSI_ITS ---
Subjective Subjective Date of Service: 02/24/22 Reason For Visit: psychosis Subjective Notes: Conditional Voluntary Interim History: Pt continues to present as anxious and repetitive in her questions. Some ambivalence related to making decisions, even simple ones. No overt delusional content noted or reported but some somatic preocupation and mistrust of medicati ons and tests. No SI/HI. She reports eating and sleeping well. She asks if she is being discharged soon, states she will be open to referral to rest home, which she understands has nursing and can give her her medications. She is isolated to her room, given that roommate was positive for covid, pt was negative yesterday but will do another covid test tomorrow morning. Medication Compliance: Yes Side effects from medications: No Attending Groups: No Review of Systems Review of Systems Constitutional : No Weight loss, No Fever, No Chills, No Fatigue, No Malaise ENT/Mouth : No sore throat, No Rhinorrhea Eyes: No Eye Pain, No Swelling, No Redness Cardiovascular : No Chest Pain, + SOB, No Dyspnea on Exertion, No Orthopnea, No Edema, No Palpitations Respiratory : No Cough, No Sputum, No Wheezing Gastrointestinal : No Nausea, No Vomiting, No Diarrhea, No Constipation, No abdominal Pain, No Hematochezia, No Melena Genitourinary : No Dysuria, No Urinary Frequency, No Hematuria, Musculoskeletal : No joint pain, No Myalgias, No Joint Swelling Skin : No Skin Lesions, No rash Neuro : No Weakness, No Numbness, + Dizziness, No Headache Psych : + Anxiety/Panic, No Depression, + paranoia All other systems reviewed and are negative Yes all other systems are reviewed and are negative Mental Status Exam Mental Status Exam Narrative: Appearance: casually groomed, good hygiene, in NAD Behavior: cooperative, bit suspicious Speech: clear, repetitive, no delayed in responses, spontaneous Psychomotor: no agitation or retardation noted TP: repetitive TC: no overt psychosis but anxious about any changes with medications, wanting to go home soon Mood: okay SI: denies HI: denies AH/VH: none Delusions: none Insight/judgment: poor x 2. Memory/cog: alert, oriented x 3. suspect underlying cognitive impairments but not formally tested today. Diagnostics Vital Signs (24Hr): Vital Signs - 24 hr 02/23/22 18:00 Temperature 98.3 F Pulse Rate 69 Respiratory Rate 16 Blood Pressure 155/74 H Pulse Oximetry 97 Oxygen Delivery Method Room Air BMI result Body Mass Index 25.0 Labs Results: 02/09/22 20:34 02/11/22 08:09 Labs: Laboratory Results - last 48 hr 02/23/22 11:10 Influenza Type A (PCR) NEGATIVE Influenza Type B (PCR) NEGATIVE RSV RNA Qual (PCR) NEGATIVE SARS-CoV-2 RNA (RT-PCR) NEGATIVE Imaging Radiology Impressions: ITS Impressions Chest X-Ray 02/09/22 20:00 IMPRESSION: Unremarkable examination. Chest CTA 02/09/22 21:55 IMPRESSION: 1. No evidence of pulmonary emboli. 2. Reflux of contrast into the hepatic veins suggesting elevated right heart pressures VTE: negative Head CT 02/09/22 21:58 IMPRESSION: No acute intracranial pathology. Small chronic infarcts and mild white matter small vessel ischemic changes, unchanged. Medications Medications Current Medications Acetaminophen (Acetaminophen 325 Mg Tablet) 650 mg PO Q6H PRN PRN Reason: Headache/Pain Mild Scale (1-3) Al Hydroxide/Mg Hydroxide (Magnesium Hydrox/Alum Hydrox 30 Ml Oral.Susp) 30 ml PO Q6H PRN PRN Reason: Heartburn/Nausea Amlodipine Besylate (Amlodipine Besylate 5 Mg Tablet) 5 mg PO DAILY [facility]; Protocol Last Admin: 02/24/22 09:50 Dose: 5 mg Aspirin (Aspirin Enteric Coated 81 Mg Tablet.Dr) 81 mg PO DAILY [facility] Last Admin: 02/24/22 09:49 Dose: 81 mg Carvedilol (Carvedilol 6.25 Mg Tablet) 6.25 mg PO BID [facility]; Protocol Last Admin: 02/24/22 09:48 Dose: 6.25 mg Clopidogrel Bisulfate (Clopidogrel Bisulfate 75 Mg Tablet) 75 mg PO DAILY [facility] Last Admin: 02/24/22 09:49 Dose: 75 mg Donepezil HCl (Donepezil Hcl 5 Mg Tablet) 5 mg PO BEDTIME [facility] Last Admin: 02/23/22 21:16 Dose: 5 mg Furosemide (Furosemide 40 Mg Tablet) 40 mg PO DAILY [facility]; Protocol Last Admin: 02/24/22 09:48 Dose: 40 mg Hydroxyzine HCl (Hydroxyzine Hcl 25 Mg Tablet) 25 mg PO Q6H PRN PRN Reason: Anxiety Lisinopril (Lisinopril 10 Mg Tablet) 10 mg PO BID [facility]; Protocol Last Admin: 02/24/22 09:48 Dose: 10 mg Loperamide HCl (Loperamide Hcl 2 Mg Capsule) 2 mg PO Q4H PRN PRN Reason: Diarrhea Last Admin: 02/23/22 16:34 Dose: 2 mg Magnesium Hydroxide (Milk Of Magnesia 30 Ml Oral.Susp) 30 ml PO DAILY PRN PRN Reason: Constipation Magnesium Oxide (Magnesium Oxide 400 Mg Tablet) 400 mg PO DAILY [facility] Last Admin: 02/24/22 09:50 Dose: 400 mg Multivitamins/Vitamin C (Multivitamin Tablet) 1 tab PO DAILY [facility] Last Admin: 02/24/22 09:50 Dose: 1 tab Olanzapine (Olanzapine 5 Mg Tablet) 5 mg PO BEDTIME [facility] Last Admin: 02/23/22 21:15 Dose: 5 mg Omeprazole (Omeprazole 20 Mg Capsule.Dr) 20 mg PO DAILY [facility] Last Admin: 02/24/22 09:48 Dose: 20 mg Pharmacy Consult (Consult Rx Perform Med Rec) 1 each MISCELLANE ONCE PRN PRN Reason: Consult order Potassium Chloride (Potassium Chloride Er 10 Meq Capsule.Er) 10 meq PO DAILY [facility] Last Admin: 02/24/22 09:48 Dose: 10 meq Trazodone HCl (Trazodone Hcl 50 Mg Tablet) 50 mg PO BEDTIME PRN PRN Reason: Insomnia Last Admin: 02/14/22 22:17 Dose: 50 mg Vitamin D (Cholecalciferol (Vitamin D3) 25 Mcg Tablet) 25 mcg PO DAILY [facility] Last Admin: 02/24/22 09:49 Dose: 25 mcg Allergies Allergies Allergy/AdvReac Type Severity Reaction Status Date / Time nitrofurantoin Allergy Unknown Verified 02/10/22 06:15 [From Macrobid] haloperidol [From Haldol] AdvReac Numbness Verified 02/10/22 06:15 Assessment & Plan Assessment & Plan (1) Schizoaffective disorder, bipolar type: Status: Acute Code(s): F25.0 - Schizoaffective disorder, bipolar type (2) Dementia: Status: Acute Code(s): F03.90 - Unspecified dementia, unspecified severity, without behavioral disturbance, psychotic disturbance, mood disturbance, and anxiety Plan The patient is an elderly female with a long history and cognitive impairment, readmitted again for exacerbation of psychosis in the context of noncompliance. The patient is very well known by this team since this is her 3rd admission in the last year. Plan 1. Gather collateral information, we will call her son and gather more information. 2. Start Zyprexa 5 mg p.o. q.h.s. to target psychosis. 3. Medical workout with basic metabolic panel, lipid panel, liver function test and TSH. So far no changes from baseline. 4. Start discharge planning. 5. Klonopin 0.25 p.o. b.i.d. p.r.n. anxiety started on February 1802/19 continue tx. 02/20 continue tx. may have to check with insurance which SCOTT other than haldol may be covered. 02/22/22 Continue current plan. 02/23 continue tx. 02/24 continue tx, may increase olanzapine to 7.5mg po qhs.covid test scheduled for tomorrow. I spent minutes with the patient and/or on the patient floor today, greater than?50% of which was spent counseling/coordinating care. Reason for contiued inpatient stay Substantial Risk for: inability to function Time Spent With Patient Time: Total time managing care of this patient today ____ minutes.
[2022-02-24 18:00] VITALS: BP 144/79; PULSE 65; RESP 16; TEMP 36.8; O2SAT 96
[2022-02-24] MEDS: OLANZapine 5 MG TABLET PO (21:05)
[2022-02-24] MEDS: Donepezil HCl 5 MG TABLET PO (21:05)
[2022-02-25] MEDS: Cholecalciferol (Vitamin D3) 25 MCG TABLET PO (09:49)
[2022-02-25] MEDS: Aspirin Enteric Coated 81 MG TABLET.DR PO (09:49)
[2022-02-25] MEDS: Clopidogrel Bisulfate 75 MG TABLET PO (09:49)
[2022-02-25] MEDS: Furosemide 40 MG TABLET PO (09:49)
[2022-02-25] MEDS: Magnesium Oxide 400 MG TABLET PO (09:49)
[2022-02-25] MEDS: lisinopriL 10 MG TABLET PO (09:50)
[2022-02-25] MEDS: Multivitamin TABLET 1 TAB PO (09:50)
[2022-02-25] MEDS: carvediloL 6.25 MG TABLET PO (09:50)
[2022-02-25] MEDS: Omeprazole 20 MG CAPSULE.DR PO (09:50)
[2022-02-25] MEDS: amLODIPine Besylate 5 MG TABLET PO (09:50)
--- NOTE | 2022-02-25 10:10 | PM.PSYDC ---
DS: Providers Provider Date of Service: 02/25/22 Date of admission: 02/10/22 16:57 Primary care physician: Garrison Beatty MD Consults: 02/09/22 20:22 Consult to Care Team Stat Comment: Reason for consultation: erratic behavior, anxiety, depression DS: Diagnosis Discharge Diagnosis (1) Schizoaffective disorder, bipolar type: Status: Acute (2) Dementia: Status: Acute DS: Medications Discharge Medications Home Medications: Previous Rx's Medication Instructions Recorded amlodipine 5 mg tablet 5 mg PO DAILY #30 tabs 02/25/22 aspirin 81 mg tablet,delayed 81 mg PO DAILY #30 tabs 02/25/22 release carvedilol 6.25 mg tablet 6.25 mg PO BID #60 tabs 02/25/22 cholecalciferol (vitamin D3) 25 25 mcg PO DAILY #30 tabs 02/25/22 mcg (1,000 unit) tablet clopidogrel 75 mg tablet 75 mg PO DAILY #30 tabs 02/25/22 donepezil 5 mg tablet 5 mg PO BEDTIME #30 tabs 02/25/22 furosemide 40 mg tablet 40 mg PO DAILY #30 tabs 02/25/22 lisinopril 10 mg tablet 10 mg PO BID #60 tabs 02/25/22 magnesium oxide 400 mg (241.3 mg 400 mg PO DAILY #30 tabs 02/25/22 magnesium) tablet multivitamin (Daily-Brielle tablet) 1 tab PO DAILY #30 tabs 02/25/22 olanzapine 5 mg tablet 5 mg PO BEDTIME #30 tabs 02/25/22 omeprazole 20 mg capsule,delayed 20 mg PO DAILY #30 caps 02/25/22 release potassium chloride 10 mEq 10 meq PO DAILY #30 caps 02/25/22 capsule,extended release Mental Status Exam Mental Status Exam Narrative: Appearance: casually groomed, good hygiene, in NAD Behavior: cooperative, bit suspicious Speech: clear, repetitive, no delayed in responses, spontaneous Psychomotor: no agitation or retardation noted TP: repetitive TC: no overt psychosis but anxious about any changes with medications, wanting to go home soon Mood: okay SI: denies HI: denies AH/VH: none Delusions: none Insight/judgment: poor x 2. Memory/cog: alert, oriented x 3. suspect underlying cognitive impairments but not formally tested today. Data Data Completed and Pending Completed studies during hospitalization [Text1]: 02/23/22 11:10 Influenza Type A (PCR) NEGATIVE Influenza Type B (PCR) NEGATIVE RSV RNA Qual (PCR) NEGATIVE SARS-CoV-2 RNA (RT-PCR) NEGATIVE Imaging Diagnostic Imaging Impressions Chest X-Ray 02/09/22 20:00 IMPRESSION: Unremarkable examination. Chest CTA 02/09/22 21:55 IMPRESSION: 1. No evidence of pulmonary emboli. 2. Reflux of contrast into the hepatic veins suggesting elevated right heart pressures VTE: negative Head CT 02/09/22 21:58 IMPRESSION: No acute intracranial pathology. Small chronic infarcts and mild white matter small vessel ischemic changes, unchanged. DS: Summary Hospital Course Hospital Course: HPI: Ms. Stephenson is a 76-year-old female, , mother of adult children, retired, living alone in her own apartment, very well known to this unit through prior admission with similar presentation.? The patient carries a diagnosis of schizoaffective disorder bipolar type and on her last admission a few months ago, was discharged with Zyprexa 5 mg p.o. q.h.s. to target psychosis with for improvement.? According to the crisis assessment, the patient walked into the emergency room complaining of shortness of breath but she looked grossly disorganized and psychotic.? Her son was called and he provide collateral information, apparently the patient had been again, noncompliant with her medications and she had being presenting psychotic symptoms such as paranoia, auditory hallucinations and disorganized behavior.? The patient was assessed by crisis and transferring to this facility for psychiatric stabilization.? HOSPITAL COURSE On the unit, pt was admitted on a CV and placed on 15 minutes checks for safety. Pt presented as anxious, suspicious of medications and treatment. She is noted to be very ambivalent and struggles with making even simple decisions daily. After discussing risks, benefits and alternative treatment options, pt agreed to restart olanzapine, which helped her in the past. It was discussed with pt possibility of switching to SCOTT, haldol listed as she had adverse reaction, although pt does not remember what it was. She has been on risperidone but had orthostatic HOTN. Her insurance has high copay for medications such as paliperidone. She does have bilat resting tremors, and concern about high potency antipsychotic such as haldol or prolixin. Gradually, Ms. Stephenson presented as calmer, less anxious, less supicious about medications and treatment. She continues to present with difficulty making decisions even simple ones, I do believe to some extend due to decrease ability to process information in combination with significant anxiety. Pt completed application for rest home and [employer] health applications. There were no incidences of disruptive behaviors nor need for restraints. Status at Discharge Cognitive/behavioral status at discharge: Pt with brighter affect. She has good hygiene. No SI/HI. No signs of aggression towards self or others. No AH/VH. No overt paranoid delusions but suspicious about medications (less so than when she came in). Future oriented looking forward to return home and complete application for rest home. Functional status at discharge: independent ambulation Overall status at discharge: patient is progressing back to baseline Time Spent with Patient Time attestation: Total time managing care of this patient today __30__ minutes. Time spent: Greater than 30 minutes Discharge Plan Discharge Anticipated Discharge Date/Time: 02/25/22 09:55 Patient Disposition: Home, Self-Care Discharge Diagnosis: schizoaffective disorder Referrals: [facility] [Other] - 03/30/22 10:30 am (Appointment scheduled 03/30/21 @ 10:30 AM TELEHEALTH) [facility] Isabel Ruffin (therapists) [Other] - 1 Week (Referral was placed for therapy follow up with your therapist Isabel.) Garrison Beatty MD [Primary Care Provider] - 1 Week (Your Primary Care Provider has been notified and will call you directly to schedule a follow up Appointment. ) Discharge Medications: New carvedilol 6.25 mg Tablet 6.25 mg PO BID Qty: 60 0RF Protocol: Hold for SBP/HR < HOLD for SBP < : 90 HOLD for HR < : 60 donepezil 5 mg Tablet 5 mg PO BEDTIME Qty: 30 0RF clopidogrel 75 mg Tablet 75 mg PO DAILY Qty: 30 0RF amlodipine 5 mg Tablet 5 mg PO DAILY Qty: 30 0RF Protocol: Hold for SBP< HOLD for SBP < : 90 aspirin 81 mg Tablet,Delayed Release (Dr/Ec) 81 mg PO DAILY Qty: 30 0RF lisinopril 10 mg Tablet 10 mg PO BID Qty: 60 0RF Protocol: Hold for SBP< HOLD for SBP < : 90 furosemide 40 mg Tablet 40 mg PO DAILY Qty: 30 0RF Protocol: Hold for SBP< HOLD for SBP < : 90 potassium chloride 10 mEq Capsule, Extended Release 10 meq PO DAILY Qty: 30 0RF olanzapine 5 mg Tablet 5 mg PO BEDTIME Qty: 30 0RF magnesium oxide 400 mg (241.3 mg magnesium) Tablet 400 mg PO DAILY Qty: 30 0RF omeprazole 20 mg Capsule,Delayed Release(Dr/Ec) 20 mg PO DAILY Qty: 30 0RF cholecalciferol (vitamin D3) 25 mcg (1,000 unit) Tablet 25 mcg PO DAILY Qty: 30 0RF multivitamin [Daily-Brielle] Tablet 1 tab PO DAILY Qty: 30 0RF Discontinued potassium chloride 10 mEq capsule, extended release 10 meq PO DAILY carvedilol 6.25 mg tablet 6.25 mg PO BID donepezil [Aricept] 5 mg tablet 5 mg PO BEDTIME clopidogrel 75 mg tablet 75 mg PO DAILY amlodipine 5 mg tablet 5 mg PO DAILY pantoprazole 40 mg tablet,delayed release (DR/EC) 40 mg PO DAILY lisinopril 10 mg tablet 10 mg PO BID furosemide 40 mg tablet 40 mg PO DAILY aspirin 81 mg Tablet,Delayed Release (Dr/Ec) 81 mg PO DAILY 30 Days Qty: 30 0RF olanzapine 5 mg Tablet 5 mg PO BEDTIME 30 Days Qty: 30 0RF multivitamin [Daily-Brielle] Tablet 1 tab PO DAILY 30 Days Qty: 30 0RF magnesium oxide 400 mg (241.3 mg magnesium) Tablet 400 mg PO DAILY 30 Days Qty: 30 0RF cholecalciferol (vitamin D3) 25 mcg (1,000 unit) Tablet 25 mcg PO DAILY 30 Days Qty: 30 0RF Discharge Orders: Discharge Order (Routine); Ordered 02/25/22 Ordered By: Heide Mota Diet: Regular diet Activity on Discharge: As tolerated Stand Alone Forms: Patient Portal Discharge page Care Plan Goals: 1. Maintain mood 2. Less somatic delusions, less anxiety 3. No SI/HI. Health Concerns: Follow up with PCP Plan of Treatment: 1. Take medications as prescribed 2. Go to nearest ED or call 911 in event of emergency Assessment: Pt less repetitive and anxious. Still struggling with making decisions due to anxiety and ambivalence. No SI/HI. No VH/AH. Less suspiciousness about medications and treatment. No signs of aggression towards self or others.
--- NOTE | 2022-02-25 11:18 | PC.NURSE ---
Patient alert and oriented x4. Expresses readiness for discharge. Patient reviewed d/c instructions with TW. Expressed understanding. Follow up appointments scheduled. Patient denies anxiety, depression, SI/HI. Escorted to front of hospital by staff.
[2022-02-25 11:20] LABS: Influenza A PCR NEGATIVE (Negative); Influenza B PCR NEGATIVE (Negative); Resp Syncy Virus RNA Qual PCR NEGATIVE (Negative); SARS COV2 PCR INHOUSE NEGATIVE (Negative)
== END 2022-02-25 11:15 | disposition home or self-care (01) | DRG 885 ==
LOC: HO.ED 02-10 00:48 → HO.PGERI 02-10 17:02
PROVIDERS: Physician Assistant; Social Worker; Admitting Provider Psychiatry & Neurology Psychiatry; Emergency Provider Emergency Medicine; PCP Internal Medicine; Visit Provider Psychiatry & Neurology Psychiatry
DX: F25.0 Schizoaffective disorder, bipolar type (principal); I25.10 Atherosclerotic heart disease of native coronary artery without angina pectoris; I25.5 Ischemic cardiomyopathy; F03.90 Unspecified dementia, unspecified severity, without behavioral disturbance, psychotic disturbance, mood disturbance, and anxiety; Z20.822 Contact with and (suspected) exposure to COVID-19; Z95.1 Presence of aortocoronary bypass graft; Z91.14 Patient's other noncompliance with medication regimen; Z88.1 Allergy status to other antibiotic agents; Z88.8 Allergy status to other drugs, medicaments and biological substances; Z79.82 Long term (current) use of aspirin; Z79.899 Other long term (current) drug therapy
CPT/HCPCS: 0241U; 36415; 70450; 71045; 71275; 80053; 80061; 80143; 80179; 80307; 81003; 82077; 83735; 83880; 84484; 85025; 85379; 87635; 93005; 99284; 99285; Q9967

== ENCOUNTER 2024-01-05 21:58 | Inpatient (IN) | payer MEDICARE, SELFPAY ==
--- NOTE | ~2024-01-05 | XR_ITS ---
EXAMINATION: XR CHEST CLINICAL INFORMATION: Palpitations. Cough. COMPARISON: None available. TECHNIQUE: 2 views of the chest were obtained. FINDINGS: Status post median sternotomy. Heart size is normal. Cardiac and mediastinal contours normal. No pulmonary vascular congestion. Lungs normally aerated. Multilevel degenerative spondylosis of the spine. XR/XR chest 2V IMPRESSION: No acute abnormality of chest. Electronically signed by: Gavino Espinoza MD 01/05/2024 11:11 PM EDT
[2024-01-05 22:01] VITALS: BP 168/93; PULSE 68; RESP 19; TEMP 36.8; O2SAT 98; BMI 23.4
--- NOTE | 2024-01-05 22:05 | ECG_ITS ---
Test Reason : CHEST PAIN Blood Pressure : / mmHG Vent. Rate : 067 BPM Atrial Rate : 067 BPM P-R Int : 158 ms QRS Dur : 106 ms QT Int : 356 ms P-R-T Axes : 058 029 086 degrees QTc Int : 376 ms Normal sinus rhythm Possible Left atrial enlargement Minimal voltage criteria for LVH, may be normal variant ( [place] product ) Nonspecific ST and T wave abnormality Abnormal ECG When compared with ECG of 09-FEB-2022 20:15, Premature ventricular complexes are no longer Present T wave inversion no longer evident in Anterior leads QT has shortened Referred By: Generic ED Physician Electronically Signed By:TOBY GUY
[2024-01-05 22:25] LABS: MANUAL DIFF FLAG NO
[2024-01-05 22:26] LABS: Basophils Absolute Auto 0.1 X10*3/uL (0.0-0.2); Basophils Percent Auto 0.7 % (0-2); Eosinophils Absolute Auto 0.1 X10*3/uL (0.0-0.4); Eosinophils Percent Auto 1.5 % (0-4); Hematocrit 41.3 % (37.0-47.0); Hemoglobin 14.5 g/dl (12.0-16.0); Imm Gran Abs Auto 0.03 X10*3/uL (0.00-0.03); Imm Gran Pct Auto 0.3 % (0.0-0.4); Lymphocytes Absolute Auto 2.7 X10*3/uL (1.2-4.9); Lymphocytes Percent Auto 31.4 % (20-40); Mean Corpuscular HGB Conc 35.1 g/dl (31.0-35.0); Mean Corpuscular Hemoglobin 31.8 pg (27.0-33.0); Mean Corpuscular Volume 90.6 fL (80.0-98.0); Mean Platelet Volume 9.4 fL (9.4-12.3); Monocytes Absolute Auto 0.9 X10*3/uL (0.1-1.2); Monocytes Percent Auto 10.2 % (2-11); Neutrophils Absolute Auto 4.9 x10*3/uL (2.0-8.3); Neutrophils Percent Auto 55.9 % (45-73); Platelet Count 289 X10*3/uL (160-400); Red Blood Count 4.56 X10*6/uL (4.20-5.50); Red Cell Distribution Width 12.1 % (11.0-16.0); White Blood Count 8.7 X10*3/uL (4.8-10.8)
[2024-01-05 22:42] LABS: Appearance Urine Clear; Color Urine Yellow; Glucose Urine UA Negative (Negative); Leukocyte Esterase Urine Small (1+) (Negative); Nitrite Urine Negative (Negative); PH 5.5 (5.0-9.0); UMIC TRIGGER UACC YES; Urine Blood Negative (Negative); Urine Ketones Negative (Negative); Urine Protein Negative (Neg-Trace)
--- NOTE | 2024-01-05 22:42 | ED.GENADULT ---
HPI - General Adult General Chief complaint: General Medical Stated complaint: Non med compliant , kidney pain? Time Seen by Provider: 01/05/24 22:41 Source: patient and family Mode of arrival: ambulatory Limitations: altered mental status History of Present Illness ED Provider: Dr. Holguin HPI narrative: Patient has been off her medication for one month, she has paranoid schizophrenia, she is not suicidal but she is completely decompensating. Related Data Previous Rx's ?Medication ?Instructions ?Recorded amlodipine 5 mg tablet 5 mg PO DAILY #30 tabs 02/25/22 aspirin 81 mg tablet,delayed 81 mg PO DAILY #30 tabs 02/25/22 release carvedilol 6.25 mg tablet 6.25 mg PO BID #60 tabs 02/25/22 cholecalciferol (vitamin D3) 25 25 mcg PO DAILY #30 tabs 02/25/22 mcg (1,000 unit) tablet clopidogrel 75 mg tablet 75 mg PO DAILY #30 tabs 02/25/22 donepezil 5 mg tablet 5 mg PO BEDTIME #30 tabs 02/25/22 furosemide 40 mg tablet 40 mg PO DAILY #30 tabs 02/25/22 lisinopril 10 mg tablet 10 mg PO BID #60 tabs 02/25/22 magnesium oxide 400 mg (241.3 mg 400 mg PO DAILY #30 tabs 02/25/22 magnesium) tablet multivitamin (Daily-Brielle tablet) 1 tab PO DAILY #30 tabs 02/25/22 olanzapine 5 mg tablet 5 mg PO BEDTIME #30 tabs 02/25/22 omeprazole 20 mg capsule,delayed 20 mg PO DAILY #30 caps 02/25/22 release potassium chloride 10 mEq 10 meq PO DAILY #30 caps 02/25/22 capsule,extended release Allergies Allergy/AdvReac Type Severity Reaction Status Date / Time nitrofurantoin Allergy Unknown Verified 01/05/24 22:02 [From Macrobid] haloperidol [From Haldol] AdvReac Numbness Verified 01/05/24 22:02 Review of Systems Review of Systems: Yes all other systems are reviewed and are negative Neurologic: Denies Sensory deficit (Neuro) [facility] Past Medical History Medical History Ischemic cardiomyopathy Essential hypertension Coronary artery disease Schizoaffective disorder, bipolar type Surgical History S/P CABG (coronary artery bypass graft) Social History Social History Household Members: None Household Members Other:: Pt reports she lives alone. Housing: Apartment Do you presently have visiting nurse or other home services: No Patient Tobacco Use Status: Never used Tobacco Smoked in Last 30 Days: No e-Cigarette/Vaping Use: Never Used Advance Directives: Yes Advance Directives on File: Yes Advance Directives Date on File: 03/06/21 Do you have a plan to hurt others: No Plan service: No Sexual orientation: Straight/Heterosexual Physical Exam ED Vital Signs: Vital Signs - 24 hr 01/05/24 22:01 01/06/24 05:55 Temperature 98.3 F 98.5 F Pulse Rate 68 66 Respiratory Rate 19 14 Blood Pressure 168/93 H 111/62 Pulse Oximetry 98 96 Oxygen Delivery Method Room Air Room Air BMI result Body Mass Index 23.4 Const General: healthy appearing Nutritional Appearance: average body habitus Orientation/consciousness: oriented to person and patient oriented x3 Limitations: no limitations HENMT Head: Yes normal to inspection Ears: external ears normal General nose exam: Normal external nose present Mouth: Normal oral and palatal mucosa present and oropharynx normal Throat: Yes posterior oropharynx normal Eyes General: appearance normal, both eyes and all related structures Neck Neck: Yes normal visual inspection Chest Chest palpation & inspection: normal inspection of the chest Resp Auscultation: clear to auscultation bilaterally Cardio Jugular venous distension: no JVD Rate: regular rate Rhythm: regular rhythm Heart sounds: S1 normal heart sound present and S2 normal heart sound present GI Inspection: Yes normal to inspection Palpation (GI): Soft to palpation, nontender and No hepatosplenomegaly present Auscultation: normal bowel sounds General: Yes no CVA tenderness Back/Spine/Pelvis Back: no CVA tenderness Skin General skin exam: no rashes or lesions noted Neuro General: oriented to person and patient oriented x3 Cranial nerves: Yes CN's II-XII intact bilaterally Motor exam (neuro): 5/5 motor strength present throughout Sensory Exam: No Sensory deficit (Neuro) Extrem General: Yes normal to inspection Psych Appearance: grossly normal Course Reevaluation(s) Reevaluation #1: seen by crisis will be admitted to [facility] Time: 07:57 Medical Decision Making Differential Diagnosis Differential Diagnoses: The differential diagnosis associated with the presentation includes (schizophrenia, UTI) Admission/Observation Consideration of admission/observation: Escalation of care including admission/observation considered (upon arrival patient considered for admission) Consult Healthcare Provider Management of the patient was discussed with: Behavioral Health Provider Lab Data 01/05/24 22:18 01/05/24 22:18 Labs: Lab Results 01/05/24 01/05/24 Range/Units 22:18 22:36 WBC 8.7 (4.8-10.8) X10*3/uL RBC 4.56 (4.20-5.50) X10*6/uL Hgb 14.5 (12.0-16.0) g/dl Hct 41.3 (37.0-47.0) % MCV 90.6 (80.0-98.0) fL MCH 31.8 (27.0-33.0) pg MCHC 35.1 H (31.0-35.0) g/dl RDW 12.1 (11.0-16.0) % Plt Count 289 (160-400) X10*3/uL MPV 9.4 (9.4-12.3) fL Immature Gran % (Auto) 0.3 (0.0-0.4) % Neut % (Auto) 55.9 (45-73) % Lymph % (Auto) 31.4 (20-40) % Mclean % (Auto) 10.2 (2-11) % Eos % (Auto) 1.5 (0-4) % Baso % (Auto) 0.7 (0-2) % Lymph # (Auto) 2.7 (1.2-4.9) X10*3/uL Mclean # (Auto) 0.9 (0.1-1.2) X10*3/uL Eos # (Auto) 0.1 (0.0-0.4) X10*3/uL Baso # (Auto) 0.1 (0.0-0.2) X10*3/uL Abs Immat Gran (auto) 0.03 (0.00-0.03) X10*3/uL Absolute Neuts (auto) 4.9 (2.0-8.3) x10*3/uL Absolute Nucleated RBC 0.000 (0.0-0.012) X10*3/uL Nucleated RBC % (auto) 0.0 (0.0-0.2) /100WBC Sodium 138 (135-145) mmol/L Potassium 3.9 (3.3-5.1) mmol/L Chloride 98 (96-108) mmol/L Carbon Dioxide 27 (22-29) mmol/L Anion Gap 17 (12-20) BUN 31 H (9-16) mg/dL Creatinine 1.10 (0.5-1.4) mg/dL Estim Creat Clear Calc 33.3 Estimated GFR 48 Random Glucose 141 H (60-115) mg/dL Calcium 10.1 (8.4-10.2) mg/dL Troponin I High Sens 9.1 (<3.5-17.0) ng/L Urine Color Yellow Urine Appearance Clear Urine pH 5.5 (5.0-9.0) Ur Specific Trimble 1.020 (1.005-1.025) Urine Protein Negative (Neg-Trace) mg/dL Urine Glucose (UA) Negative (Negative) mg/dL Urine Ketones Negative (Negative) mg/dL Urine Blood Negative (Negative) Urine Nitrite Negative (Negative) Ur Leukocyte Esterase Small (1+) H (Negative) Urine RBC 0-2 (0-2) /HPF Urine WBC 0-5 (0-5) /HPF Ur Squamous Epith Cells 0-2 (0-2) /HPF Urine Bacteria None Seen (None Seen) Hyaline Casts 0-2 (0-2) /LPF Urine Test NEGATIVE (NEGATIVE) Urine Opiates Screen Not Detected (Not Detect) Ur Buprenorphine Scrn Not Detected (Not Detect) ng/mL Ur Oxycodone Screen Not Detected (Not Detect) ng/mL Urine Methadone Screen Not Detected (Not Detect) ng/mL Urine Fentanyl Screen Not Detected (Not Detect) Ur Barbiturates Screen Not Detected (Not Detect) Ur Phencyclidine Scrn Not Detected (Not Detect) Ur Amphetamines Screen Not Detected (Not Detect) U Benzodiazepines Scrn Not Detected (Not Detect) Urine Cocaine Screen Not Detected (Not Detect) U Marijuana (THC) Screen Not Detected (Not Detect) Ethyl Alcohol < 10 mg/dL Independent Historian Clinical information obtained from an independent historian. History obtained from or confirmed by: Other (son) External Record Review External record reviewed: Outpatient record Chronic Conditions Patient?s care impacted by: Other (psychiatric disease) Discharge Plan Discharge Clinical Impression: Schizoaffective disorder, bipolar type Patient Disposition: Still a Patient Prescriptions: No Action carvedilol 6.25 mg Tablet 6.25 mg PO BID Qty: 60 0RF Protocol: Hold for SBP/HR < HOLD for SBP < : 90 HOLD for HR < : 60 donepezil 5 mg Tablet 5 mg PO BEDTIME Qty: 30 0RF clopidogrel 75 mg Tablet 75 mg PO DAILY Qty: 30 0RF amlodipine 5 mg Tablet 5 mg PO DAILY Qty: 30 0RF Protocol: Hold for SBP< HOLD for SBP < : 90 aspirin 81 mg Tablet,Delayed Release (Dr/Ec) 81 mg PO DAILY Qty: 30 0RF lisinopril 10 mg Tablet 10 mg PO BID Qty: 60 0RF Protocol: Hold for SBP< HOLD for SBP < : 90 furosemide 40 mg Tablet 40 mg PO DAILY Qty: 30 0RF Protocol: Hold for SBP< HOLD for SBP < : 90 potassium chloride 10 mEq Capsule, Extended Release 10 meq PO DAILY Qty: 30 0RF olanzapine 5 mg Tablet 5 mg PO BEDTIME Qty: 30 0RF magnesium oxide 400 mg (241.3 mg magnesium) Tablet 400 mg PO DAILY Qty: 30 0RF omeprazole 20 mg Capsule,Delayed Release(Dr/Ec) 20 mg PO DAILY Qty: 30 0RF cholecalciferol (vitamin D3) 25 mcg (1,000 unit) Tablet 25 mcg PO DAILY Qty: 30 0RF multivitamin [Daily-Brielle] Tablet 1 tab PO DAILY Qty: 30 0RF Print Language: Uzbek
[2024-01-05 22:43] LABS: Anion Gap 17 (12-20); Blood Urea Nitrogen 31 mg/dL (9-16); Calcium 10.1 mg/dL (8.4-10.2); Carbon Dioxide 27 mmol/L (22-29); Chloride 98 mmol/L (96-108); Creatinine Clr Calc Pharmacy 33.3; Estimated Glomerular Filt Rate 48; Glucose Random 141 mg/dL (60-115); Potassium 3.9 mmol/L (3.3-5.1); Sodium 138 mmol/L (135-145)
[2024-01-05 22:45] LABS: UPreg QC Valid YES; Urine Pregnancy NEGATIVE (NEGATIVE)
[2024-01-05 22:52] LABS: Troponin-I High Sensitivity 9.1 ng/L (<3.5-17.0)
--- OUTSIDE RECORDS SUMMARY | 2024-01-05 22:52 | XMS_ITS | Continuity of Care Document ---
Author Organization [facility] Address [address] [place] [address]- Care Team Providers Care Racing Manager Name Role Phone Jaci GOLD, Garrison Swan Primary Care Physician Encounter [facility] Date(s): 07/24/20 - 08/31/20 [facility] [address] [place] [id number]- Attending Physician: Jack Billy MD Admitting Physician: Jack Billy MD Referring Physician: Garrison Beatty MD Allergies, Adverse Reactions, Alerts Substance Reaction Severity Status cephalexin Active nitrofurantoin Active sulfADIAZINE Ciprofloxacin Active predniSONE SEVERE H/A Active Macrobid Active statins MYALGIAS Active Immunizations Given and Recorded Vaccine Date Status Refusal Reason SARS-CoV-2 (COVID-19) mRNA BNT-162b2 vac 04/02/20 Recorded SARS-CoV-2 (COVID-19) mRNA BNT-162b2 vac 03/12/20 Recorded Influenza Virus Vaccine (oldterm) 10/21/19 Recorde d Influenza Virus Vaccine (oldterm) 11/21/18 Recorde d influenza virus vaccine, inactivated 1 12/08/17 Gi cyn influenza virus vaccine, inactivated 11/30/16 Give n influenza virus vaccine, inactivated 12/18/15 Give n influenza virus vaccine, inactivated 2, 3 12/20/14 Given influenza virus vaccine, inactivated 12/11/14 Give n influenza virus vaccine, inactivated 12/12/13 Give n influenza virus vaccine, inactivated 11/28/12 Give n influenza virus vaccine, inactivated 11/30/11 Give n influenza virus vaccine, inactivated 12/10/08 Give n influenza virus vaccine, inactivated 4 12/30/05 Gi cyn tetanus-diphtheria toxoids (Td) 12/02/15 Given pneumococcal 13-valent vaccine 05/30/14 Given FluLaval (oldterm) 5 12/04/10 Given FluLaval (oldterm) 6 12/27/09 Given Pneumococcal Vacc (oldterm) 06/03/10 Given Tet/Diphth/Acel, Pertussis (oldterm) 09/26/09 Give n Zostavax (oldterm) 06/06/09 Given influ virus vac, H1N1, inactive(oldterm) 7 03/18/09 Given influ virus vac, H1N1, inactive(oldterm) 8 03/18/09 Given Tetanus Toxoid Vaccine (oldterm) 03/08/00 Given 1Result Comment: [12/09/2017] [id number] 2Result Comment: [04/15/2015 Uncharted] Pt had influenza vaccine 12/12/15- 3Admin Note: PT had the flu shot done at [facility] 4Admin Note: GIVEN IN [facility] 5Admin Note: [facility] 6Admin Note: [facility] 7Admin Note: GIVEN AT OUTSIDE CLINIC 8Admin Note: per pt rcvd elsewhere Medications carvedilol 6.25 mg oral tablet 6.25 mg, 1, tablet, By Mouth, 2 times a day, # 60 tablet, Refills 11, Tot. Refills 11, Maintenance,08/07/20 13:57:00 EDT, Route to Pharmacy Electronically, [facility]/pharmacy #[id number], Partial fill upon patient request if the prescription is for a schedule II... Start Date: 08/07/20 Stop Date: 08/02/21 Status: Ordered Lasix 40 mg oral tablet 40 mg, 1, tablet, By Mouth, Daily, # 30 tablet, Refills 11, Tot. Refills 11, Maintenance, 04/29/20 9:22:00 EST, Route to Pharmacy Electronically, [facility]/pharmacy #[id number], Partial fill upon patient requestif the prescription is for a schedule II opioid symone... Start Date: 04/29/20 Stop Date: 04/24/21 Status: Ordered losartan 25 mg oral tablet 0.5, By Mouth, Daily, # 15 tablet, Refills 3, Tot. Refills 3, Maintenance, 08/29/20 13:46:00 EDT, Route to Pharmacy Electronically, [facility]/pharmacy #[id number], Partial fill upon patient request if the prescription is for a schedule II opioid drug., 160, cm, 0... Start Date: 08/29/20 Status: Ordered Multivitamin 1 tablet, By Mouth, Daily, 0 Refills, Maintenance, 09/21/12 14:36:06 EDT Start Date: 09/21/12 Status: Ordered Nature's Bounty Probiotic 1 tablet, By Mouth, Daily, 0 Refills, Maintenance, 08/05/18 18:34:13 EDT Start Date: 08/05/18 Status: Ordered pantoprazole 40 mg oral delayed release tablet = 40 mg, By Mouth, Daily, # 30 tablet, 5 Refills, Maintenance, 03/20/20 10:44:00 EST, EC Tablet, 160, cm, 03/18/20 10:03:00 EST, Height, 62, kg, 02/27/20 20:52:00 EST, Dry Weight Start Date: 03/20/20 Status: Ordered Plavix 75 mg oral tablet 75 mg, 1, tablet, By Mouth, Daily, # 30 tablet, Refills 5, Tot. Refills 5, Maintenance, 03/20/20 10:44:00 EST, Route to Pharmacy Electronically, [facility]/pharmacy #[id number], Partial fill upon patient request if the prescription is for a schedule II opioid drug... Start Date: 03/20/20 Status: Ordered potassium potassium, Refills 0, Maintenance, 08/09/20 12:24:00 EDT, Supply Start Date: 08/09/20 Status: Ordered prune juice prune juice, Refills 0, Maintenance, 08/09/20 12:24:00 EDT, Supply Start Date: 08/09/20 Status: Ordered Vitamin D3 = 1,000 International_Units, By Mouth, 0 Refills, Maintenance, 09/21/12 16:02:30 Start Date: 09/21/12 Status: Ordered Problem List Condition Effective Dates Status Health Status Inform ant Adenomatous polyp of colon(Confirmed) Active Adrenal adenoma(Confirmed) 1 Active Change in bowel habits(Confirmed) Active Anxiety(Confirmed) Active Benign Essential Hypertension(Confirmed) Active Carotid artery stenosis(Confirmed) Active Chronic hypokalemia(Confirmed) Active Colonoscopy(Confirmed) 2, 3, 4 Active CAD (coronary artery disease)(Confirmed) 5 Active Diarrhea(Confirmed) Active Diverticulitis(Confirmed) Active Diverticulosis of sigmoid colon(Confirmed) Active Gallstones(Confirmed) Active Globus sensation(Confirmed) Active H/O psychosis(Confirmed) 03/18/09 Active Hemorrhoids, external(Confirmed) Active History of ST elevation myoc ardial infarction (STEMI)(Confirmed) Active History of cardiac catheterization(Confirmed) Active History of colonoscopy(Confirmed) 6 Active History of coronary artery b ypass graft x 2(Confirmed) Active History of squamous cell carcinoma(Confirmed) Active Elevated brain natriuretic p eptide (BNP) level(Confirmed) Active Hypercalcemia(Confirmed) 7, 8 Active Hypercholesterolemia(Confirmed) Active Hypokalemia(Confirmed) Active Hyponatremia(Confirmed) Active Hypothyroidism(Confirmed) Active MRI of brain abnormal(Confirmed) Active Nephrolithiasis(Confirmed) Active Osteopenia(Confirmed) Active Depression, major, recurrent , moderate(Confirmed) Active Renal mass, left(Confirmed) Active Subclinical hypothyroidism(C onfirmed) 9 Active Tremor of unknown origin(Confirmed) 10 03/18/09 Active Abnormal ultrasound of abdomen(Confirmed) Active 1Nonfunctional, noted on serial CT scans. 2colo 2010 adenomatous polyp, repeat 2014 3error with fh colon cancer needs colo 2008 4colo 2004 nl, rpt 2013 5MI 2019 [id number]; no repeat due to age 7restarted HCTZ; will monitor 8holding hctz ;recheck 9Antibody positive 10thought to be medication related by neurology Social History Social History Type Response Smoking Status Never smoker; Tobacc o user in household: No entered on: 07/05/14 Sex
--- OUTSIDE RECORDS SUMMARY | 2024-01-05 22:52 | XMS_ITS | Continuity of Care Document ---
Author Organization [facility] Address [address] [place] [address]- Care Team Providers Care Manager Managing Name Role Phone Garrison Beatty MD Primary Care Physician [phone] Encounter [facility] [place] Date(s): 03/28/20 - 06/22/20 [facility] [address] [place] [phone]- Attending Physician: Pratik Melendez MD Admitting Physician: Pratik Melendez MD Referring Physician: Yohan Beatty MD Allergies, Adverse Reactions, Alerts Substance Reaction Severity Status cephalexin Active nitrofurantoin Active predniSONE SEVERE H/A Active statins MYALGIAS Active sulfADIAZINE Ciprofloxacin Active Macrobid Active Immunizations Given and Recorded Vaccine Date [...] Vaccine (oldterm) 03/08/00 Given 1Result Comment: [12/09/2017] [id number] 2Result Comment: [04/15/2015 Uncharted] Pt had influenza vaccine 12/12/15- 3Admin Note: PT had the flu shot done at [facility] Flu clinic 4Admin Note: GIVEN IN CLINIC [facility] 5Admin Note: [facility] 6Admin Note: [facility] 7Admin Note: GIVEN AT OUTSIDE CLINIC 8Admin Note: per pt rcvd elsewhere Medications aspirin 81 mg oral tablet, chewable 81 mg, 1, tablet, By Mouth, Daily, Refills 0, Maintenance, 03/06/20 12:43:00 EST, Partial fill uponpatient request if the prescription is for a schedule II opioid drug. Start Date: 03/06/20 Status: Ordered carvedilol 3.125 mg oral tablet 1, tablet, By Mouth, 2 times a day, # 60 tablet, Refills 1, Tot. Refills 0, Maintenance, 04/29/20 7:44:00 EST, Route to Pharmacy Electronically, [id number], 160, cm, 04/25/20 9:48:00 EST, Height, 62, kg, 02/27/20 20:52:00 EST, Dry Weight Start Date: 04/29/20 Status: Ordered Depakote 250 mg oral enteric coated tablet 1 tablet, By Mouth, 2 times a day, # 90 tablet, 0 Refills, Maintenance, EC Tablet Start Date: 02/20/10 Status: Ordered Docusate Sodium Capsule 100 mg, 1, capsule, By Mouth, 2 times a day, Refills 0, Maintenance, 03/06/20 12:42:00 EST, Partialfill upon patient request if the prescription is for a schedule II opioid drug. Start Date: 03/06/20 Status: Ordered Lasix 40 mg oral tablet 40 mg, 1, tablet, By Mouth, Daily, # 30 tablet, Refills 11, Tot. Refills 11, Maintenance, 04/29/20 9:22:00 EST, Route to Pharmacy Electronically, [facility]/pharmacy #[id number], Partial fill upon patient requestif the prescription is for a schedule II opioid symone... Start Date: 04/29/20 Stop Date: 04/24/21 Status: Ordered lisinopril 5 mg oral tablet 5 mg, 1, tablet, By Mouth, Daily, # 30 tablet, Refills 3, Tot. Refills 3, Maintenance, 04/25/20 10:36:00 EST, Route to Pharmacy Electronically, [facility]/pharmacy #[id number], Partial fill upon patient request if the prescription is for a schedule II opioid drug.... Start Date: 04/25/20 Status: Ordered Multivitamin 1 tablet, By Mouth, [...] 03/20/20 10:44:00 EST, Route to Pharmacy Electronically, [facility]/pharmacy #[id number], Partial fill upon patient request if the prescription is for a schedule II opioid drug... Start Date: 03/20/20 Status: Ordered potassium chloride 10 mEq oral tablet, extended release 2 tablet = 20 mEq, By Mouth, Daily in AM, # 60 tablet, 5 Refills, Maintenance, 04/29/20 9:23:00 EST, ER Tablet, [facility]/pharmacy #[id number], Partial fill upon patient request if the prescription is for a schedule II opioid drug., 160, cm, 04/29/20 8:53:00 EST,... Start Date: 04/29/20 Status: Ordered Vitamin D3 = 1,000 International_Units, [...] Active CAD (coronary artery disease)(Confirmed) 5 Active Diverticulitis(Confirmed) Active Diverticulosis of sigmoid colon(Confirmed) Active Gallstones(Confirmed) Active Globus sensation(Confirmed) Active H/O psychosis(Confirmed) 03/18/09 Active Hemorrhoids, external(Confirmed) Active History of ST elevation myoc ardial infarction (STEMI)(Confirmed) Active History of cardiac catheterization(Confirmed) Active History of colonoscopy(Confirmed) 6 Active History of coronary artery b ypass graft x 2(Confirmed) Active History of squamous cell carcinoma(Confirmed) Active Hypercalcemia(Confirmed) 7, 8 Active Hypercholesterolemia(Confirmed) Active Hypokalemia(Confirmed) Active Hyponatremia(Confirmed) Active MRI of brain abnormal(Confirmed) Active Nephrolithiasis(Confirmed) [...] 4colo 2004 nl, rpt 2013 5MI 2019 46105; no repeat due to age 7restarted HCTZ; will monitor 8holding hctz ;recheck 9Antibody positive 10thought to be medication related by neurology Social History Social History Type Response Smoking Status Never smoker; Tobacc o user in household: No entered on: 07/05/14 Sex
[2024-01-05 22:53] LABS: Bacteria Urine None Seen (None Seen); Hyaline Casts Urine 0-2 /LPF (0-2); RBC Urine 0-2 /HPF (0-2); Squamous Epithelial Cell Urine 0-2 /HPF (0-2); UACC Culture Trigger YES; WBC Urine 0-5 /HPF (0-5)
--- OUTSIDE RECORDS SUMMARY | 2024-01-05 22:53 | XMS_ITS | Continuity of Care Document ---
Author Organization [facility] Address [address] [place] [address]- Care Team Providers Care Business Instructor Name Role Phone Jaci GOLD, Garrison Swan Primary Care Physician Encounter [facility] Date(s): 04/18/20 - 05/18/20 [facility] [address] [place] [address]- Allergies, Adverse Reactions, Alerts Substance Reaction Severity Status cephalexin Active nitrofurantoin Active sulfADIAZINE Ciprofloxacin Active predniSONE SEVERE H/A Active Macrobid Active statins MYALGIAS Active Immunizations Given and Recorded Vaccine Date Status Refusal Reason Influenza Virus Vaccine (oldterm) 10/21/19 Recorde d [...] Vaccine (oldterm) 03/08/00 Given 1Result Comment: [12/09/2017] [id number] 2Result Comment: [04/15/2015 Uncharted] Pt had influenza vaccine 12/12/15- 3Admin Note: PT had the flu shot done at [facility] clinic 4Admin Note: GIVEN IN [facility] 5Admin Note: [facility] 6Admin Note: [facility] 7Admin Note: GIVEN AT OUTSIDE CLINIC 8Admin [...] 04/29/20 7:44:00 EST, Route to Pharmacy Electronically, [id number], 160, cm, 04/25/20 9:48:00 EST, Height, 62, [...] 04/29/20 9:22:00 EST, Route to Pharmacy Electronically, [facility]/pharmacy #[id number], Partial fill upon patient requestif the prescription is for a schedule II opioid symone... Start Date: 04/29/20 Stop Date: 04/24/21 Status: Ordered lisinopril 5 mg oral tablet 5 mg, 1, tablet, By Mouth, Daily, # 30 tablet, Refills 3, Tot. Refills 3, Maintenance, 04/25/20 10:36:00 EST, Route to Pharmacy Electronically, [facility]/pharmacy #[id number], Partial fill upon patient request if [...] 03/20/20 10:44:00 EST, Route to Pharmacy Electronically, [facility]/pharmacy #[id number], Partial fill upon patient request if the prescription is for a schedule II opioid drug... Start Date: 03/20/20 Status: Ordered potassium chloride 10 mEq oral tablet, extended release 2 tablet = 20 mEq, By Mouth, Daily in AM, # 60 tablet, 5 Refills, Maintenance, 04/29/20 9:23:00 EST, ER Tablet, [facility]/pharmacy #[id number], Partial fill upon patient request if the prescription is for a schedule II opioid drug., 160, cm, 04/29/20 8:53:00 EST,... Start Date: 04/29/20 Status: Ordered Vitamin D3 = 1,000 International_Units, By Mouth, 0 Refills, Maintenance, 09/21/12 16:02:30 Start Date: 09/21/12 Status: Ordered Problem List Condition Effective Dates Status Health Status Inform ant Adenomatous polyp of colon(Confirmed) Active Adrenal adenoma(Confirmed) 1 Active Anxiety(Confirmed) Active Benign Essential Hypertension(Confirmed) Active [...] Active Depression, major, recurrent , moderate(Confirmed) Active Subclinical hypothyroidism(C onfirmed) 9 Active Tremor of unknown origin(Confirmed) 10 03/18/09 Active Abnormal ultrasound of abdomen(Confirmed) Active 1Nonfunctional, noted on serial CT scans. 2colo 2010 adenomatous polyp, repeat 2014 3error with fh colon cancer needs colo 2008 4colo 2003 nl, rpt 2013 5MI 2019 [id number]; no repeat due to age 7restarted HCTZ; will monitor 8holding hctz ;recheck 9Antibody positive 10thought to be medication related by neurology Social History Social History Type Response Smoking Status Never smoker; Tobacc o user in household: No entered on: 07/05/14 Sex
--- OUTSIDE RECORDS SUMMARY | 2024-01-05 22:53 | XMS_ITS | Continuity of Care Document ---
Author Organization [facility] Cayden Ontiveros Yon lt Address [address] [place] [address]- Care Team Providers Care Professor Of Geography Name Role Phone Garrison Beatty MD Primary Care Physician [facility] - 06/02/19 [facility] Cayden Ontiveros Adult [address] [place] [address]- [facility] Attending Physician: Garrison Beatty MD Allergies, Adverse Reactions, Alerts Substance Reaction Severity Status predniSONE SEVERE H/A Active Macrobid Active statins MYALGIAS Active Immunizations Given and Recorded Vaccine Date Status Refusal Reason Influenza Virus Vaccine (oldterm) 11/21/18 Recorde d [...] Vaccine (oldterm) 03/08/00 Given 1Result Comment: [12/09/2017] [id number] 2Result Comment: [04/15/2015 Uncharted] Pt had influenza vaccine 12/12/15- 3Admin Note: PT had the flu shot done at [facility] Flu clinic 4Admin Note: GIVEN IN [facility] 5Admin Note: [facility] 6Admin Note: [facility] 7Admin Note: GIVEN AT OUTSIDE CLINIC 8Admin Note: per pt rcvd elsewhere Medications amoxicillin 500 mg oral capsule 1 capsule = 500 mg, By Mouth, 3 times a day, for 10 days, # 30 capsule, 0 Refills, Acute 06/08/19 13:04:00 EDT, 05/29/19 13:04:00 EDT, Capsule, [facility] # [id number], 155.5, cm, 02/17/19 10:28:00 EST, Height Start Date: 05/29/19 Stop Date: 06/08/19 Status: Ordered aspirin 81 mg oral tablet 1 tablet = 81 mg, By Mouth, Daily, # 90 tablet, 3 Refills, Maintenance, 11/21/18 15:29:59 EDT, Tablet Start Date: 11/21/18 Status: Ordered Citrucel Lax = 1,000 mg, By Mouth, Daily, 0 Refills, Maintenance, 08/29/14 13:12:35 EDT Start Date: 08/29/14 Status: Ordered Depakote 250 mg oral enteric coated tablet 1 tablet, By Mouth, 2 times a day, # 90 tablet, 0 Refills, Maintenance, EC Tablet Start Date: 02/20/10 Status: Ordered Fish Oil = 1,000 mg, By Mouth, Daily, 0 Refills, Maintenance, 08/29/14 13:13:30 EDT Start Date: 08/29/14 Status: Ordered hydrochlorothiazide 25 mg oral tablet 25 mg, 1, tablet, By Mouth, Daily, # 30 tablet, Refills 11, Tot. Refills 11, Maintenance, 06/02/19 12:46:00 EDT, Route to Pharmacy Electronically, [facility] # [id number], 155.5, cm, 02/17/19 10:28:00 EST, Height Start Date: 06/02/19 Stop Date: 05/27/20 Status: Ordered Multivitamin 1 tablet, By Mouth, Daily, 0 Refills, Maintenance, 09/21/12 14:36:06 EDT Start Date: 09/21/12 Status: Ordered Nature's Bounty Probiotic 1 tablet, By Mouth, Daily, 0 Refills, Maintenance, 08/05/18 18:34:13 EDT Start Date: 08/05/18 Status: Ordered Vitamin D3 = 1,000 International_Units, By Mouth, 0 Refills, Maintenance, 09/21/12 16:02:30 Start Date: 09/21/12 Status: Ordered Zestril 40 mg oral tablet 1 tablet, By Mouth, Daily, # 30 tablet, 11 Refills, Maintenance, 01/09/19 13:33:24 EST Start Date: 01/09/19 Status: Ordered Zyprexa 2.5 mg oral tablet 1 tablet = 2.5 mg, By Mouth, Daily, 0 Refills, Maintenance, 07/05/14 9:57:21 Start Date: 07/05/14 Status: Ordered Problem List Condition Effective Dates Status Health Status Inform ant Adenomatous polyp of colon(Confirmed) Active Adrenal adenoma(Confirmed) 1 Active Anxiety(Confirmed) Active Benign Essential Hypertension(Confirmed) Active Carotid artery stenosis(Confirmed) Active Chronic hypokalemia(Confirmed) Active Colonoscopy(Confirmed) 2, 3, 4 Active Diverticulosis of sigmoid colon(Confirmed) Active Gallstones(Confirmed) Active Globus sensation(Confirmed) Active H/O psychosis(Confirmed) 03/18/09 Active Hemorrhoids, external(Confirmed) Active History of colonoscopy(Confirmed) 5 Active History of squamous cell carcinoma(Confirmed) Active Hypercalcemia(Confirmed) 6, 7 Active Hypercholesterolemia(Confirmed) Active Hypokalemia(Confirmed) Active MRI of brain abnormal(Confirmed) Active Major depression(Confirmed) Active Nephrolithiasis(Confirmed) Active Osteopenia(Confirmed) Active Subclinical hypothyroidism(C onfirmed) 8 Active Tremor of unknown origin(Confirmed) 9 03/18/09 Active Abnormal ultrasound of abdomen(Confirmed) Active 1Nonfunctional, noted on serial CT scans. 2colo 2010 adenomatous polyp, repeat 2014 3error with fh colon cancer needs colo 2008 4colo 2003 nl, rpt 2013 83292; no repeat due to age 6restarted HCTZ; will monitor 7holding hctz ;recheck 8Antibody positive 9thought to be medication related by neurology Social History Social History Type Response Smoking Status Never smoker; Tobacc o user in household: No entered on: 07/05/14 Sex
--- OUTSIDE RECORDS SUMMARY | 2024-01-05 22:53 | XMS_ITS | Continuity of Care Document ---
Author Organization [facility] Weston Yon lt Address [address] [place] [address]- Care Team Providers Care Fisher Line Name Role Phone Jaci GOLD, Garrison Swan Primary Care Physician [facility] Date[facility]): 03[facility]19[facility]20 - 04/18/20 [facility] Adult [address] [place] [address]- Allergies, Adverse Reactions, Alerts Substance Reaction Severity [...] Vaccine (oldterm) 03/08/00 Given 1Result Comment: [12/09/2017] [id number] 2Result Comment: [04/15/2015 Uncharted] Pt had influenza vaccine 12/12/15- 3Admin Note: PT had the flu shot done at [facility] Flu clinic 4Admin Note: GIVEN IN [facility] 5Admin Note: [facility] 6Admin Note: [facility] 7Admin Note: GIVEN AT OUTSIDE CLINIC 8Admin Note: per pt rcvd elsewhere Medications amiodarone 200 mg oral tablet 200 mg, 1, tablet, By Mouth, 2 times a day, # 60 tablet, Refills 5, Tot. Refills 5, Maintenance, 03/20/20 10:44:00 EST, Route to Pharmacy Electronically, [facility]/pharmacy #[id number], Partial fill upon patientrequest if the prescription is for a schedule II op... Start Date: 03/20/20 Status: Ordered aspirin 81 mg oral tablet, chewable 81 mg, 1, tablet, By Mouth, Daily, Refills 0, Maintenance, 03/06/20 12:43:00 EST, Partial fill uponpatient request if the prescription is for a schedule II opioid drug. Start Date: 03/06/20 Status: Ordered benzonatate 100 mg oral capsule 1 capsule = 100 mg, By Mouth, 3 times a day, 0 Refills, Maintenance, 03/06/20 12:42:00 EST, Capsule, Partial fill upon patient request if the prescription is for a schedule II opioid drug. Start Date: 03/06/20 Status: Ordered Citrucel Lax = 1,000 mg, By Mouth, Daily, 0 Refills, Maintenance, 08/29/14 13:12:35 EDT Start Date: 08/29/14 Status: Ordered Coreg 3.125 mg oral tablet 3.125 mg, 1, tablet, By Mouth, 2 times a day, Refills 0, Maintenance, 03/06/20 12:45:00 EST, Partial fill upon patient request if the prescription is for a schedule II opioid drug. Start Date: 03/06/20 Status: Ordered Depakote 250 mg oral enteric [...] tablet 40 mg, 1, tablet, By Mouth, 2 times a day, # 60 tablet, Refills 11, Tot. Refills 11, Maintenance, 04/09/20 7:42:00 EST, Route to Pharmacy Electronically, [facility]/pharmacy #[id number], Partial fill upon patientrequest if the prescription is for a schedule II op... Start Date: 04/09/20 Stop Date: 04/04/21 Status: Ordered Maalox Plus Liquid 15 mL, By Mouth, Every 6 hours, PRN Dyspepsia, 0 Refills, Maintenance, 03/06/20 12:41:00 EST, Suspension, Partial fill upon patient request if the prescription is for a schedule II opioid drug. Start Date: 03/06/20 Status: Ordered Mag-Ox Tablet = 400 mg, By Mouth, 2 times a day, 0 Refills, Maintenance, 03/06/20 12:42:00 EST, Tablet, Partial fill upon patient request if the prescription is for a schedule II opioid drug. Start Date: 03/06/20 Status: Ordered Milk of Magnesia Liquid 30 mL, By Mouth, Every 8 hours, PRN Constipation, 0 Refills, Maintenance, 03/06/20 12:42:00 EST, Suspension, Partial fill upon patient request if the prescription is for a schedule II opioid drug. Start Date: 03/06/20 Status: Ordered Multivitamin 1 tablet, By Mouth, [...] AM, # 60 tablet, 5 Refills, Maintenance, 03/20/20 10:44:00 EST, ER Tablet, [facility]/pharmacy #[id number], Partial fill upon patient request if the prescription is for a schedule II opioid drug., 160, cm, 03/18/20 10:03:00 ES... Start Date: 03/20/20 Status: Ordered Silvadene 50 Gm Topical 1 applicator = 50 Gm, Topically, 2 times a day, 0 Refills, Maintenance, Cream Start Date: 03/06/20 Status: Ordered Vitamin D3 = 1,000 International_Units, By Mouth, 0 Refills, Maintenance, 09/21/12 16:02:30 Start Date: 09/21/12 Status: Ordered Zyprexa 2.5 mg oral tablet [...] Hyponatremia(Confirmed) Active MRI of brain abnormal(Confirmed) Active Major depression(Confirmed) Active Nephrolithiasis(Confirmed) Active Osteopenia(Confirmed) Active Subclinical hypothyroidism(C onfirmed) 9 Active Tremor of unknown origin(Confirmed) 10 03/18/09 Active Abnormal ultrasound of abdomen(Confirmed) Active 1Nonfunctional, noted on serial CT scans. 2colo 2010 adenomatous polyp, repeat 2014 3error with fh colon cancer needs colo 2008 4colo 2004 nl, rpt 2013 5MI 2019 [address]; no repeat due to age 7restarted HCTZ; will monitor 8holding hctz ;recheck 9Antibody positive 10thought to be medication related by neurology Social History Social History Type Response Smoking Status Never smoker; Tobacc o user in household: No entered on: 07/05/14 Sex
--- OUTSIDE RECORDS SUMMARY | 2024-01-05 22:53 | XMS_ITS | Continuity of Care Document ---
Author Organization [facility] Address [address] [address]- Care Team Providers Care Chinese Language Professor Name Role Phone Garrison Beatty MD Primary Care Physician [facility] Date[facility]s): 06/10/20 - 07/10/20 [facility] [address] [place] [address] [place] [phone]- Allergies, Adverse Reactions, Alerts Substance Reaction Severity [...] Vaccine (oldterm) 03/08/00 Given 1Result Comment: [12/09/2017] [id number] 2Result Comment: [04/15/2015 Uncharted] Pt had influenza vaccine 12/12/15- 3Admin Note: PT had the flu shot done at [facility] 4Admin Note: GIVEN IN [facility] 5Admin Note: [facility] 6Admin Note: [facility] 7Admin Note: GIVEN AT OUTSIDE CLINIC 8Admin Note: per pt rcvd elsewhere Medications carvedilol 3.125 mg oral tablet See Instructions, TAKE 1 TABLET BY MOUTH TWICE A DAY, # 60 tablet, Refills 11, Tot. Refills 11, Maintenance, Instructions Replace Required Details, Route to Pharmacy Electronically, [facility] [id number], 160, cm, 07/05/20 7:47:00 EDT, Height, 62, kg, 02/26... Start Date: 07/05/20 Status: Ordered furosemide 20 mg oral tablet 1, capsule, By Mouth, Once, # 7 tablet, Refills 0, Tot. Refills 0, Soft Stop, 07/10/20 13:37:00 EDT, Route to Pharmacy Electronically, [facility]/pharmacy #[id number], Partial fill upon patient request if the prescription is for a schedule II opioid drug., 160, cm... Start Date: 07/10/20 Status: Ordered Lasix 40 mg oral tablet 40 mg, 1, tablet, By Mouth, Daily, # 30 tablet, Refills 11, Tot. Refills 11, Maintenance, 04/29/20 9:22:00 EST, Route to Pharmacy Electronically, [facility]/pharmacy #[id number], Partial fill upon patient requestif the prescription is for a schedule II opioid symone... Start Date: 04/29/20 Stop Date: 04/24/21 Status: Ordered Multivitamin 1 tablet, By Mouth, [...] 03/20/20 10:44:00 EST, Route to Pharmacy Electronically, [facility]/pharmacy #[id number], Partial fill upon patient request if the prescription is for a schedule II opioid drug... Start Date: 03/20/20 Status: Ordered potassium chloride 10 mEq oral tablet, extended release 2 tablet = 20 mEq, By Mouth, Daily in AM, # 60 tablet, 5 Refills, Maintenance, 04/29/20 9:23:00 EST, ER Tablet, [facility]/pharmacy #[id number], Partial fill upon patient request if the prescription is for a schedule II opioid drug., 160, cm, 04/29/20 8:53:00 EST,... Start Date: 04/29/20 Status: Ordered valsartan 80 mg oral tablet 40 mg, 0.5, tablet, By Mouth, 2 times a day, # 90 tablet, Refills 3, Tot. Refills 3, Maintenance, 07/10/20 16:10:00 EDT, Route to Pharmacy Electronically, [facility]/pharmacy #[id number], Partial fill upon patient request if the prescription is for a schedule II o... Start Date: 07/10/20 Stop Date: 07/05/21 Status: Ordered Vitamin D3 = 1,000 International_Units, [...] 4colo 2003 nl, rpt 2013 5MI 2019 [address]; no repeat due to age 7restarted HCTZ; will monitor 8holding hctz ;recheck 9Antibody positive 10thought to be medication related by neurology Social History Social History Type Response Smoking Status Never smoker; Tobacc o user in household: No entered on: 07/05/14 Sex
--- OUTSIDE RECORDS SUMMARY | 2024-01-05 22:53 | XMS_ITS | Continuity of Care Document ---
Author Organization [facility] Weston Yon lt Address [address] [place] [address]- Care Team Providers Care Automated Process Operator Name Role Phone Jaci GOLD, Garrison Swan Primary Care Physician [facility] Date[facility]s): 12/23/20 - 01/22/21 [facility] Adult [address] [place] [address]- Allergies, Adverse Reactions, Alerts Substance Reaction Severity Status cephalexin Active nitrofurantoin Active sulfADIAZINE Ciprofloxacin Active predniSONE SEVERE H/A Active Macrobid Active statins MYALGIAS Active Immunizations Given and Recorded Vaccine Date Status Refusal Reason influenza virus vaccine, inactivated 12/16/20 Cachorro rded influenza virus vaccine, inactivated 1 12/08/17 Gi [...] virus vaccine, inactivated 4 12/30/05 Gi cyn SARS-CoV-2 (COVID-19) mRNA BNT-162b2 vac 11/28/20 Recorded SARS-CoV-2 (COVID-19) mRNA BNT-162b2 vac 04/02/20 Recorded SARS-CoV-2 (COVID-19) mRNA BNT-162b2 vac 03/12/20 Recorded Influenza Virus Vaccine (oldterm) 10/21/19 Recorde d Influenza Virus Vaccine (oldterm) 11/21/18 Recorde d tetanus-diphtheria toxoids (Td) 12/02/15 Given pneumococcal 13-valent vaccine 05/30/14 Given FluLaval (oldterm) 5 12/04/10 Given FluLaval (oldterm) 6 12/27/09 Given Pneumococcal Vacc (oldterm) 06/03/10 Given Tet/Diphth/Acel, Pertussis (oldterm) 09/26/09 Give n Zostavax (oldterm) 06/06/09 Given influ virus vac, H1N1, inactive(oldterm) 7 03/18/09 Given influ virus vac, H1N1, inactive(oldterm) 8 03/18/09 Given Tetanus Toxoid Vaccine (oldterm) 03/08/00 Given 1Result Comment: [12/09/2017] [id number] 2Result Comment: [04/15/2015 Uncharted] Pt had influenza vaccine 12/12/15- 3Admin Note: PT had the flu shot done at [facility] Flu clinic 4Admin Note: GIVEN IN [facility] 5Admin Note: [facility] 6Admin Note: [facility] 7Admin Note: GIVEN AT OUTSIDE CLINIC 8Admin Note: per pt rcvd elsewhere Medications aspirin 81 mg oral capsule 1 capsule = 81 mg, By Mouth, Daily, 0 Refills, Maintenance, 12/06/20 14:03:00 EDT, Partial fill upon patient request if the prescription is for a schedule II opioid drug. Start Date: 12/06/20 Status: Ordered carvedilol 6.25 mg oral tablet 6.25 mg, 1, tablet, By Mouth, 2 times a day, # 60 tablet, Refills 11, Tot. Refills 11, Maintenance,08/07/20 13:57:00 EDT, Route to Pharmacy Electronically, [facility]/pharmacy #[id number], Partial fill upon patient request if the prescription is for a schedule II... Start Date: 08/07/20 Stop Date: 08/02/21 Status: Ordered clopidogrel 75 mg oral tablet 1, tablet, By Mouth, Daily, # 30 tablet, Refills 5, Tot. Refills 0, Maintenance, 10/04/20 11:01:00 EDT, Route to Pharmacy Electronically, [id number], 160, cm, 08/30/20 13:24:00 EDT, Height, 56.5, kg, 07/18/20 15:54:00 EDT, Dry Weight Start Date: 10/04/20 Status: Ordered Lasix 40 mg oral tablet 40 mg, 1, tablet, By Mouth, Daily, # 30 tablet, Refills 11, Tot. Refills 11, Maintenance, 04/29/20 9:22:00 EST, Route to Pharmacy Electronically, [facility]/pharmacy #[id number], Partial fill upon patient requestif the prescription is for a schedule II opioid symone... Start Date: 04/29/20 Stop Date: 04/24/21 Status: Ordered lisinopril 2.5 mg oral tablet 2.5 mg, 1, tablet, By Mouth, Daily, # 30 tablet, Refills 11, Tot. Refills 11, Maintenance, 10/25/2111:27:00 EDT, [id number] Partial fill upon patient request if the prescription is for a schedule II opioid d... Start Date: 10/24/20 Stop Date: 10/19/21 Status: Ordered magnesium gluconate 250 mg oral tablet 1 tablet = 250 mg, By Mouth, Daily, # 60 tablet, 0 Refills, Maintenance, 10/05/20 7:07:00 EDT, Tablet, Partial fill upon patient request if the prescription is for a schedule II opioid drug. Start Date: 10/05/20 Status: Ordered Multivitamin 1 tablet, By Mouth, Daily, 0 Refills, Maintenance, 09/21/12 14:36:06 EDT Start Date: 09/21/12 Status: Ordered Nature's Bounty Probiotic 1 tablet, By Mouth, Daily, 0 Refills, Maintenance, 08/05/18 18:34:13 EDT Start Date: 08/05/18 Status: Ordered pantoprazole 40 mg oral delayed release tablet 1 tablet, By Mouth, Daily, # 30 tablet, 5 Refills, Maintenance, 10/04/20 11:01:00 EDT, 160, cm, 08/30/20 13:24:00 EDT, Height, 56.5, kg, 07/18/20 15:54:00 EDT, Dry Weight Start Date: 10/04/20 Status: Ordered potassium chloride 10 mEq oral capsule, extended release 2 capsule = 20 mEq, By Mouth, Daily, # 30 capsule, 0 Refills, Maintenance, 12/02/20 9:34:00 EDT, CRCapsule, Partial fill upon patient request if the prescription is for a schedule II opioid drug. Start Date: 12/02/20 Status: Ordered Vitamin D3 = 1,000 International_Units, [...] 4colo 2004 nl, rpt 2013 5MI 2019 [address]; no repeat due to age 7restarted HCTZ; will monitor 8holding hctz ;recheck 9Antibody positive 10thought to be medication related by neurology Social History Social History Type Response Smoking Status Never (less than 100 in lifetime) entered on: 12/02/20 Sex
--- OUTSIDE RECORDS SUMMARY | 2024-01-05 22:53 | XMS_ITS | Continuity of Care Document ---
Author Organization [facility] Address [address] [place] [address]- Care Team Providers Care Digital Forensic Analyst Name Role Phone Garrison Beatty MD Primary Care Physician Encounter [facility] Date(s): 05/01/21 - 05/31/21 [facility] [address] [place] [address]- Attending Physician: Renetta Strickland Admitting Physician: AdmRenetta webb Referring Physician: Renetta Strickland Allergies, Adverse Reactions, Alerts Substance Reaction Severity Status cephalexin Active nitrofurantoin Active sulfADIAZINE Ciprofloxacin Active valsartan 1 Active statins MYALGIAS Active predniSONE SEVERE H/A Active Macrobid Active 1dizziness Immunizations Given and Recorded Vaccine Date Status [...] Vaccine (oldterm) 03/08/00 Given 1Result Comment: [12/09/2017] [id number] 2Result Comment: [04/15/2015 Uncharted] Pt had influenza vaccine 12/12/15- 3Admin Note: PT had the flu shot done at [facility] Flu [facility] 4Admin Note: GIVEN IN [facility] 5Admin Note: [facility] 6Admin Note: [facility] 7Admin Note: GIVEN AT OUTSIDE CLINIC 8Admin Note: per pt rcvd elsewhere Medications amLODIPine 5 mg oral tablet 5 mg, 1, tablet, By Mouth, Daily, # 30 tablet, Refills 11, Tot. Refills 11, Maintenance, 03/12/21 16:13:00 EST, Route to Pharmacy Electronically, [facility]/pharmacy #[id number], Partial fill upon patient requestif the prescription is for a schedule II opioid symone... Start Date: 03/12/21 Status: Ordered Aricept 5 mg oral tablet 5 mg, 1, tablet, By Mouth, Daily at bedtime, # 30 tablet, Refills 11, Tot. Refills 11, Maintenance,03/12/21 16:10:00 EST, Route to Pharmacy Electronically, [facility]/pharmacy #[id number], Partial fill upon patient request if the prescription is for a schedule II... Start Date: 03/12/21 Status: Ordered aspirin 81 mg oral capsule 1 capsule = 81 mg, By Mouth, Daily, 0 Refills, Maintenance, 12/06/20 14:03:00 EDT, Partial fill upon patient request if the prescription is for a schedule II opioid drug. Start Date: 12/06/20 Status: Ordered carvedilol 12.5 mg oral tablet 12.5 mg, 1, tablet, By Mouth, 2 times a day, # 60 tablet, Refills 11, Tot. Refills 11, Maintenance,03/12/21 16:08:00 EST, [id number] Partial fill upon patient request if the prescription is for a schedule II... Start Date: 03/12/21 Status: Ordered clopidogrel 75 mg oral tablet 1, tablet, By Mouth, Daily, # 30 tablet, Refills 11, Tot. Refills 11, Maintenance, 03/12/21 16:09:00 EST, Route to Pharmacy Electronically, [facility]/pharmacy #[id number], 157, cm, 03/12/21 13:26:00 EST, Height,60, kg, 01/20/21 16:03:00 EST, Dry Weight Start Date: 03/12/21 Status: Ordered Lasix 40 mg oral tablet 40 mg, 1, tablet, By Mouth, Daily, # 30 tablet, Refills 11, Tot. Refills 11, Maintenance, 03/12/21 16:08:00 EST, [id number], Partial fill upon patient request if the prescription is for a schedule II opioid dr... Start Date: 03/12/21 Stop Date: 03/07/22 Status: Ordered lisinopril 10 mg oral tablet 10 mg, 1, tablet, By Mouth, 2 times a day, # 60 tablet, Refills 11, Tot. Refills 11, Maintenance, 03/12/21 16:09:00 EST, [id number] Partial fill upon patient request if the prescription is for a schedule II o... Start Date: 03/12/21 Stop Date: 03/07/22 Status: Ordered magnesium oxide 400 mg oral tablet 1 tablet = 400 mg, By Mouth, Daily, for 30 days, # 30 tablet, 11 Refills, Acute 03/07/22 16:11:00 EST, 03/12/21 16:11:00 EST, Tablet, [facility]/pharmacy #[id number], Partial fill upon patient request if the prescription is for a schedule II opioid drug., 157, cm,... Start Date: 03/12/21 Stop Date: 03/07/22 Status: Ordered Multivitamin 1 tablet, By Mouth, Daily, 0 Refills, Maintenance, 09/21/12 14:36:06 EDT Start Date: 09/21/12 Status: Ordered Nature's Bounty Probiotic 1 tablet, By Mouth, Daily, 0 Refills, Maintenance, 08/05/18 18:34:13 EDT Start Date: 08/05/18 Status: Ordered olanzapine 2.5 mg oral tablet 2.5 mg, 1, tablet, By Mouth, Daily, 2.5mg qhs. This replaces risperidone, [facility] provider changed to this approx 2 weeks ago, Refills 0, Maintenance, 04/02/21 12:51:00 EST, Partial fill upon patient request if the prescription is for a schedule II opioid... Start Date: 04/02/21 Status: Ordered pantoprazole 40 mg oral delayed release tablet 1 tablet, By Mouth, Daily, # 30 tablet, 11 Refills, Maintenance, 03/12/21 16:09:00 EST, 157, cm, 03/12/21 13:26:00 EST, Height, 60, kg, 01/20/21 16:03:00 EST, Dry Weight Start Date: 03/12/21 Status: Ordered potassium chloride 10 mEq oral capsule, extended release 1 capsule = 10 mEq, By Mouth, Daily, # 30 capsule, 11 Refills, Maintenance, 03/12/21 16:07:00 EST, ER Capsule, [facility]/pharmacy #[id number], Partial fill upon patient request if the prescription is for a schedule II opioid drug., 157, cm, 03/12/21 13:26:00 EST,... Start Date: 03/12/21 Status: Ordered Vitamin D3 = 1,000 International_Units, [...] Active Hypokalemia(Confirmed) Active Hyponatremia(Confirmed) Active Hypothyroidism(Confirmed) Active Mild cognitive impairment(Confirmed) Active MRI of brain abnormal(Confirmed) Active Nephrolithiasis(Confirmed) [...] 4colo 2004 nl, rpt 2013 5MI 2019 [address]777; no repeat due to age 7restarted HCTZ; will monitor 8holding hctz ;recheck 9Antibody positive 10thought to be medication related by neurology Social History Social History Type Response Smoking Status Never (less than 100 in lifetime) entered on: 12/02/20 Sex
--- OUTSIDE RECORDS SUMMARY | 2024-01-05 22:53 | XMS_ITS | Continuity of Care Document ---
Author Organization [facility] Address [address] [place] [address]- Care Team Providers Care Metal Weigher Name Role Phone Garrison Beatty MD Primary Care Physician Encounter [facility] [place] Date(s): 05/27/20 - 08/31/20 [facility] [address] [place] [address]- Attending Physician: Scott Melton MD Admitting Physician: Scott Melton MD Referring Physician: Garrison Beatty MD Allergies, [...] Vaccine (oldterm) 03/08/00 Given 1Result Comment: [12/09/2017] [id number] 2Result Comment: [04/15/2015 Uncharted] Pt had influenza vaccine 12/12/15- 3Admin Note: PT had the flu shot done at [facility] Flu clinic 4Admin Note: GIVEN IN [facility] 5Admin Note: [facility] [employer] [facility] 6Admin Note: [facility] [employer] [facility] 7Admin Note: GIVEN AT OUTSIDE CLINIC 8Admin Note: per pt rcvd elsewhere Medications carvedilol 6.25 mg oral tablet 6.25 mg, 1, tablet, By Mouth, 2 times a day, # 60 tablet, Refills 11, Tot. Refills 11, Maintenance,08/07/20 13:57:00 EDT, Route to Pharmacy Electronically, [facility]/pharmacy #[id number], Partial fill upon patient request if the prescription is for a schedule II... Start Date: 08/07/20 Stop Date: 08/02/21 Status: Ordered Lasix 40 mg oral tablet 40 mg, 1, tablet, By Mouth, Daily, # 30 tablet, Refills 11, Tot. Refills 11, Maintenance, 04/29/20 9:22:00 EST, Route to Pharmacy Electronically, [facility]/pharmacy #[id number], Partial fill upon patient requestif the prescription is for a schedule II opioid symone... Start Date: 04/29/20 Stop Date: 04/24/21 Status: Ordered losartan 25 mg oral tablet 0.5, By Mouth, Daily, # 15 tablet, Refills 3, Tot. Refills 3, Maintenance, 08/29/20 13:46:00 EDT, Route to Pharmacy Electronically, [facility]/pharmacy #[id number], Partial fill upon patient [...] 10:44:00 EST, Route to Pharmacy Electronically, [facility]/pharmacy #[id number], Partial fill upon patient request if the [...] 4colo 2004 nl, rpt 2013 5MI 2019 48964; no repeat due to age 7restarted HCTZ; will monitor 8holding hctz ;recheck 9Antibody positive 10thought to be medication related by neurology Social History Social History Type Response Smoking Status Never smoker; Tobacc o user in household: No entered on: 07/05/14 Sex
--- OUTSIDE RECORDS SUMMARY | 2024-01-05 22:53 | XMS_ITS | Continuity of Care Document ---
Author Organization [facility] Address [address] [place] [address]- Care Team Providers Care Lastex Operator Name Role Phone Jaci GOLD, Garrison Swan Primary Care Physician [phone] Encounter [facility] Date(s): 02/06/21 - 03/08/21 [facility] Adult [address] [place] [address]- Allergies, Adverse Reactions, Alerts Substance Reaction Severity Status cephalexin Active nitrofurantoin Active sulfADIAZINE Ciprofloxacin Active predniSONE SEVERE H/A Active valsartan 1 Active Macrobid Active statins MYALGIAS Active 1dizziness Immunizations Given and Recorded Vaccine [...] toxoids (Td) 12/02/15 Given pneumococcal 13-valent vaccine 3/25/15 Given FluLaval (oldterm) 5 12/04/10 Given FluLaval (oldterm) 6 12/27/09 Given Pneumococcal Vacc (oldterm) 06/03/10 Given Tet/Diphth/Acel, Pertussis (oldterm) 09/26/09 Give n Zostavax (oldterm) 06/06/09 Given influ virus vac, H1N1, inactive(oldterm) 7 03/18/09 Given influ virus vac, H1N1, inactive(oldterm) 8 03/18/09 Given Tetanus Toxoid Vaccine (oldterm) 03/08/00 Given 1Result Comment: [12/09/2017] [id number] 2Result Comment: [04/15/2015 Uncharted] Pt had influenza vaccine 12/12/15- 3Admin Note: PT had the flu shot done at [facility] Flu clinic 4Admin Note: GIVEN IN [facility] 5Admin Note: [employer] [facility] 6Admin Note: [facility] [place] [place] 7Admin Note: GIVEN AT OUTSIDE CLINIC 8Admin [...] Maintenance,08/07/20 13:57:00 EDT, Route to Pharmacy Electronically, [facility]/pharmacy #[id number], Partial fill upon patient request if the prescription is for a schedule II... Start Date: 08/07/20 Stop Date: 08/02/21 Status: Ordered clopidogrel 75 mg oral tablet 1, tablet, By Mouth, Daily, # 30 tablet, Refills 5, Tot. Refills 0, Maintenance, 10/04/20 11:01:00 EDT, Route to Pharmacy Electronically, [facility] STORE [id number], 160, cm, 08/30/20 13:24:00 EDT, Height, 56.5, kg, 07/18/20 15:54:00 EDT, Dry Weight Start Date: 10/04/20 Status: Ordered Lasix 40 mg oral tablet 40 mg, 1, tablet, By Mouth, Daily, # 30 tablet, Refills 11, Tot. Refills 11, Maintenance, 04/29/20 9:22:00 EST, [id number] Partial fill upon patient requestif the prescription is for a schedule II opioid symone... Start Date: 04/29/20 Stop Date: 04/24/21 Status: Ordered lisinopril 2.5 mg oral tablet 2.5 mg, 1, tablet, By Mouth, Daily, # 30 tablet, Refills 11, Tot. Refills 11, Maintenance, 10/25/2111:27:00 EDT, [id number] Partial fill upon patient request if [...] 4colo 2003 nl, rpt 2013 5MI 2019 43599; no repeat due to age 7restarted HCTZ; will monitor 8holding hctz ;recheck 9Antibody positive 10thought to be medication related by neurology Social History Social History Type Response Smoking Status Never (less than 100 in lifetime) entered on: 12/02/20 Sex
--- OUTSIDE RECORDS SUMMARY | 2024-01-05 22:53 | XMS_ITS | Continuity of Care Document ---
Author Organization [facility] Address [address] [place] [address]- Care Team Providers Care Fire Operations Forester Name Role Phone Garrison Beatty MD Primary Care Physician Encounter [facility] [place] Date(s): 04/25/20 - 05/02/20 [facility] [address] [place] [address]- Attending Physician: Pratik Melendez MD Admitting Physician: Pratik Melendez MD Referring Physician: Garrison Beatty MD Allergies, [...] Vacc (oldterm) 06/03/10 Given Tet/Diphth/Acel, Pertussis (oldterm) 7/22/10 Give n Zostavax (oldterm) 06/06/09 Given influ virus vac, H1N1, inactive(oldterm) 7 03/18/09 Given influ virus vac, H1N1, inactive(oldterm) 8 03/18/09 Given Tetanus Toxoid Vaccine (oldterm) 03/08/00 Given 1Result Comment: [12/09/2017] [id number] 2Result Comment: [04/15/2015 Uncharted] Pt had influenza vaccine 12/12/15- 3Admin Note: PT had the flu shot done at [facility] Flu clinic 4Admin Note: GIVEN IN [facility] 5Admin Note: [facility] 6Admin Note: [facility] 7Admin Note: GIVEN AT OUTSIDE CLINIC [...] 04/29/20 7:44:00 EST, Route to Pharmacy Electronically, [facility] [id number], 160, cm, 04/25/20 9:48:00 EST, Height, 62, [...] 04/29/20 9:22:00 EST, Route to Pharmacy Electronically, [facility]/pharmacy #[id number], Partial fill upon patient requestif the prescription is for a schedule II opioid symone... Start Date: 04/29/20 Stop Date: 04/24/21 Status: Ordered lisinopril 5 mg oral tablet 5 mg, 1, tablet, By Mouth, Daily, # 30 tablet, Refills 3, Tot. Refills 3, Maintenance, 04/25/20 10:36:00 EST, Route to Pharmacy Electronically, [facility]/pharmacy #[id number], Partial fill upon patient request [...] 03/20/20 10:44:00 EST, Route to Pharmacy Electronically, [facility]/pharmacy #[id number], Partial fill upon patient request if the prescription is for a schedule II opioid drug... Start Date: 03/20/20 Status: Ordered potassium chloride 10 mEq oral tablet, extended release 2 tablet = 20 mEq, By Mouth, Daily in AM, # 60 tablet, 5 Refills, Maintenance, 04/29/20 9:23:00 EST, ER Tablet, [facility]/pharmacy #[id number], Partial fill upon patient request [...] 4colo 2004 nl, rpt 2013 5MI 2019 32684; no repeat due to age 7restarted HCTZ; will monitor 8holding hctz ;recheck 9Antibody positive 10thought to be medication related by neurology Vital Signs Most recent to oldest [Reference Range]: 1 Height 160 cm (04/25/20 9:48 AM) Weight 58 kg (04/25/20 9:48 AM) Pulse Rate [55-90 bpm] 80 bpm (04/25/20 9:48 AM) Body Mass Index [18.5-24.99] 22.66 (04/25/20 9:48 AM) Blood Pressure [90-138/55-84 mm Hg] 134/ 64mm Hg (04/25/20 9:48 AM) Blood pressure sites Arm, right (04/25/20 9:48 AM) Weight Obtained Via Patient/family state d (04/25/20 9:48 AM) Social History Social History Type Response Smoking Status Never smoker; Tobacc o user in household: No entered on: 07/05/14 Sex
--- OUTSIDE RECORDS SUMMARY | 2024-01-05 22:53 | XMS_ITS | Continuity of Care Document ---
Author Organization [facility] Address [address], [address], [address] [place] [address]- Care Team Providers Care Service Girl Name Role Phone Jaci GOLD, Garrison Swan Primary Care Physician [phone] Encounter [facility] Date(s): 08/09/20 - 09/08/20 [facility] [address], [address], [address] [place] [address]- Attending Physician: Renetta Strickland Admitting Physician: Admtr, Renetta Referring Physician: Admtr, Ar8 Allergies, Adverse Reactions, Alerts Substance Reaction Severity [...] Vaccine (oldterm) 03/08/00 Given 1Result Comment: [12/09/2017] [id number] 2Result Comment: [04/15/2015 Uncharted] Pt had influenza vaccine 12/12/15- 3Admin Note: PT had the flu shot done at [facility] Flu clinic 4Admin Note: GIVEN IN [facility] 5Admin Note: [employer] [facility] 6Admin Note: [employer] [facility] 7Admin Note: GIVEN AT OUTSIDE CLINIC 8Admin Note: per pt rcvd elsewhere Medications carvedilol 6.25 mg oral tablet 6.25 mg, 1, tablet, By Mouth, 2 times a day, # 60 tablet, Refills 11, Tot. Refills 11, Maintenance,08/07/20 13:57:00 EDT, Route to Pharmacy Electronically, [facility]/pharmacy #[id number], Partial fill upon patient request if the prescription is for a schedule II... Start Date: 08/07/20 Stop Date: 08/02/21 Status: Ordered furosemide 20 mg oral tablet 1, capsule, By Mouth, Daily, take 1 tablet by mouth daily in addition to the lasix you already takefor 1 week., # 7 capsule, Refills 0, Tot. Refills 0, Soft Stop, 09/03/20 7:05:00 EDT, Route to Pharmacy Electronically, [facility]/pharmacy #[id number], 160, cm, 06... Start Date: 09/03/20 Stop Date: 09/10/20 Status: Ordered Lasix 40 mg oral tablet 40 mg, 1, tablet, By Mouth, Daily, # 30 tablet, Refills 11, Tot. Refills 11, Maintenance, 04/29/20 9:22:00 EST, Route to Pharmacy Electronically, [facility]/pharmacy #[id number], Partial fill upon patient requestif the prescription is for a schedule II opioid symone... Start Date: 04/29/20 Stop Date: 04/24/21 Status: Ordered losartan 25 mg oral tablet 0.5, By Mouth, Daily, # 15 tablet, Refills 3, Tot. Refills 3, Maintenance, 08/29/20 13:46:00 EDT, Route to Pharmacy Electronically, [facility]/pharmacy #[id number], Partial fill upon patient request if [...] 03/20/20 10:44:00 EST, Route to Pharmacy Electronically, [facility]/pharmacy #[id number], Partial fill upon patient request if [...] 4colo 2004 nl, rpt 2013 5MI 2019 [address]102; no repeat due to age 7restarted HCTZ; will monitor 8holding hctz ;recheck 9Antibody positive 10thought to be medication related by neurology Social History Social History Type Response Smoking Status Never smoker; Tobacc o user in household: No entered on: 07/05/14 Sex
--- OUTSIDE RECORDS SUMMARY | 2024-01-05 22:53 | XMS_ITS | Continuity of Care Document ---
Author Organization [facility] Address [address] [place] [address]- Care Team Providers Care Application Support Analyst Name Role Phone Garrison Beatty MD Primary Care Physician Encounter [facility] Date(s): 04/01/20 - 05/01/20 [facility] [address] [place] [address]- Allergies, Adverse Reactions, Alerts Substance Reaction Severity [...] Vaccine (oldterm) 03/08/00 Given 1Result Comment: [12/09/2017] [id number] 2Result Comment: [04/15/2015 Uncharted] Pt had influenza vaccine 12/12/15- 3Admin Note: PT had the flu shot done at [facility] Flu clinic 4Admin Note: GIVEN IN [facility] 5Admin Note: [employer] [facility] 6Admin Note: [employer] [facility] [place] 7Admin Note: GIVEN AT OUTSIDE CLINIC 8Admin [...] 04/29/20 7:44:00 EST, Route to Pharmacy Electronically, [facility] STORE [id number], 160, cm, 04/25/20 9:48:00 EST, Height, 62, [...] 04/29/20 9:22:00 EST, Route to Pharmacy Electronically, [facility]/pharmacy #[id number], Partial fill upon patient requestif the prescription is for a schedule II opioid symone... Start Date: 04/29/20 Stop Date: 04/24/21 Status: Ordered lisinopril 5 mg oral tablet 5 mg, 1, tablet, By Mouth, Daily, # 30 tablet, Refills 3, Tot. Refills 3, Maintenance, 04/25/20 10:36:00 EST, Route to Pharmacy Electronically, [facility]/pharmacy #[id number], Partial fill upon patient request if [...] 03/20/20 10:44:00 EST, Route to Pharmacy Electronically, [facility]/pharmacy #[id number], Partial fill upon patient request if [...] 4colo 2003 nl, rpt 2013 5MI 2019 29396; no repeat due to age 7restarted HCTZ; will monitor 8holding hctz ;recheck 9Antibody positive 10thought to be medication related by neurology Social History Social History Type Response Smoking Status Never smoker; Tobacc o user in household: No entered on: 07/05/14 Sex
--- OUTSIDE RECORDS SUMMARY | 2024-01-05 22:53 | XMS_ITS | Continuity of Care Document ---
Author Organization [facility] Address [address] [place] [phone]- Care Team Providers Care Business Unit Leader Name Role Phone Garrison Beatty MD Primary Care Physician Encounter [facility] [place] Date(s): 01/22/21 - 02/21/21 [facility] [address] [place] [address]- [place] Allergies, Adverse Reactions, Alerts Substance Reaction Severity [...] Vaccine (oldterm) 03/08/00 Given 1Result Comment: [12/09/2017] [id number] 2Result Comment: [04/15/2015 Uncharted] Pt had influenza vaccine 12/12/15- 3Admin Note: PT had the flu shot done at [facility] Flu clinic 4Admin Note: GIVEN IN CL[facility]IC [facility] 5Admin Note: [employer] [facility] 6Admin Note: [employer] [facility] 7Admin Note: GIVEN AT OUTSIDE CLINIC [...] Maintenance,08/07/20 13:57:00 EDT, Route to Pharmacy Electronically, [facility]/pharmacy #[id number], Partial fill upon patient request if the prescription is for a schedule II... Start Date: 08/07/20 Stop Date: 08/02/21 Status: Ordered clopidogrel 75 mg oral tablet 1, tablet, By Mouth, Daily, # 30 tablet, Refills 5, Tot. Refills 0, Maintenance, 10/04/20 11:01:00 EDT, Route to Pharmacy Electronically, [facility] STORE 06005, 160, cm, 08/30/20 13:24:00 EDT, Height, 56.5, kg, 07/18/20 15:54:00 EDT, Dry Weight Start Date: 10/04/20 Status: Ordered Lasix 40 mg oral tablet 40 mg, 1, tablet, By Mouth, Daily, # 30 tablet, Refills 11, Tot. Refills 11, Maintenance, 04/29/20 9:22:00 EST, Route to Pharmacy Electronically, [facility]/pharmacy #[id number], Partial fill upon patient requestif the prescription is for a schedule II opioid symone... Start Date: 04/29/20 Stop Date: 04/24/21 Status: Ordered lisinopril 2.5 mg oral tablet 2.5 mg, 1, tablet, By Mouth, Daily, # 30 tablet, Refills 11, Tot. Refills 11, Maintenance, 10/25/2111:27:00 EDT, [id number] upon patient [...] 4colo 2004 nl, rpt 2013 5MI 2019 35[address]; no repeat due to age 7restarted HCTZ; will monitor 8holding hctz ;recheck 9Antibody positive 10thought to be medication related by neurology Social History Social History Type Response Smoking Status Never (less than 100 in lifetime) entered on: 12/02/20 Sex
--- OUTSIDE RECORDS SUMMARY | 2024-01-05 22:53 | XMS_ITS | Continuity of Care Document ---
Author Organization [facility] Address [address] [place] [address]- Care Team Providers Care Printed Circuit Board Preassembler Name Role Phone Garrison Beatty MD Primary Care Physician [phone] Encounter [facility] [place] Date(s): 10/19/19 - 02/15/20 [facility] [address] [place] [address]- Attending Physician: Darryn Ledezma MD Admitting Physician: Darryn Ledezma MD Referring Physician: Darryn Ledezma MD Allergies, Adverse Reactions, Alerts Substance Reaction Severity Status nitrofurantoin Active predniSONE SEVERE H/A Active Macrobid Active [...] Vaccine (oldterm) 03/08/00 Given 1Result Comment: [12/09/2017] [id number] 2Result Comment: [04/15/2015 Uncharted] Pt had influenza vaccine 12/12/15- 3Admin Note: PT had the flu shot done at [facility] Flu clinic 4Admin Note: GIVEN IN [facility] 5Admin Note: [facility] 6Admin Note: [employer] [facility] 7Admin Note: GIVEN AT OUTSIDE CLINIC 8Admin Note: per pt rcvd elsewhere Medications aspirin 81 mg oral tablet 1 tablet = 81 mg, By Mouth, Daily, # 90 tablet, 3 Refills, Maintenance, 11/21/18 15:29:59 EDT, Tablet Start Date: 11/21/18 Status: Ordered Citrucel Lax = 1,000 mg, By Mouth, Daily, 0 Refills, Maintenance, 08/29/14 13:12:35 EDT Start Date: 08/29/14 Status: Ordered Coreg 12.5 mg oral tablet 12.5 mg, 1, tablet, By Mouth, 2 times a day, # 60 tablet, Refills 11, Tot. Refills 11, Maintenance,12/05/19 12:01:00 EDT, Route to Pharmacy Electronically, [facility]/pharmacy #[id number], 158, cm, 12/05/19 11:43:00 EDT, Height, 60.2, kg, 12/01/19 18:57:00 EDT, D... Start Date: 12/05/19 Status: Ordered Depakote 250 mg oral enteric coated tablet 1 tablet, By Mouth, 2 times a day, # 90 tablet, 0 Refills, Maintenance, EC Tablet Start Date: 02/20/10 Status: Ordered Multivitamin 1 tablet, By Mouth, [...] Daily, # 30 tablet, 11 Refills, Maintenance, 08/21/19 14:11:00 EDT, [facility]/pharmacy #[id number], 155.5, cm, 08/21/19 13:49:00 EDT, Height Start Date: 08/21/19 Status: Ordered Zyprexa 2.5 mg oral tablet 1 tablet = 2.5 mg, By Mouth, Daily, 0 Refills, Maintenance, 07/05/14 9:57:21 Start Date: 07/05/14 Status: Ordered Problem List Condition Effective Dates Status Health Status Inform ant Adenomatous polyp of colon(Confirmed) Active Adrenal adenoma(Confirmed) 1 Active Anxiety(Confirmed) Active Benign Essential Hypertension(Confirmed) Active Carotid artery stenosis(Confirmed) Active Chronic hypokalemia(Confirmed) Active Colonoscopy(Confirmed) 2, 3, 4 Active Diverticulitis(Confirmed) Active Diverticulosis of sigmoid colon(Confirmed) Active Gallstones(Confirmed) Active Globus sensation(Confirmed) Active H/O psychosis(Confirmed) 03/18/09 Active Hemorrhoids, external(Confirmed) Active History of colonoscopy(Confirmed) 5 Active History of squamous cell carcinoma(Confirmed) Active Hypercalcemia(Confirmed) 6, 7 Active Hypercholesterolemia(Confirmed) Active Hypokalemia(Confirmed) Active Hyponatremia(Confirmed) Active MRI of brain abnormal(Confirmed) Active Major depression(Confirmed) Active Nephrolithiasis(Confirmed) Active Osteopenia(Confirmed) Active Subclinical hypothyroidism(C onfirmed) 8 Active Tremor of unknown origin(Confirmed) 9 03/18/09 Active Abnormal ultrasound of abdomen(Confirmed) Active 1Nonfunctional, noted on serial CT scans. 2colo 2010 adenomatous polyp, repeat 2014 3error with fh colon cancer needs colo 2008 4colo 2003 nl, rpt 2013 [address]695; no repeat due to age 6restarted HCTZ; will monitor 7holding hctz ;recheck 8Antibody positive 9thought to be medication related by neurology Social History Social History Type Response Smoking Status Never smoker; Tobacc o user in household: No entered on: 07/05/14 Sex
--- OUTSIDE RECORDS SUMMARY | 2024-01-05 22:53 | XMS_ITS | Continuity of Care Document ---
Author Organization [facility] Address [address] [place] [address]- Care Team Providers Care Vp Sales Name Role Phone Jaci GOLD, Garrison Swan Primary Care Physician [facility]counter [facility] Date(s): 07/19/20 - 08/18/20 [facility] [place] Adult [address] [place] [address]- Allergies, Adverse Reactions, Alerts Substance Reaction Severity [...] Vaccine (oldterm) 03/08/00 Given 1Result Comment: [12/09/2017] [id number] 2Result Comment: [04/15/2015 Uncharted] Pt had influenza vaccine 12/12/15- 3Admin Note: PT had the flu shot done at [facility] Flu clinic 4Admin Note: GIVEN IN [facility] 5Admin Note: [employer] [facility] 6Admin Note: [facility] 7Admin Note: GIVEN AT OUTSIDE CLINIC 8Admin Note: per pt rcvd elsewhere Medications carvedilol 6.25 mg oral tablet 6.25 mg, 1, tablet, By Mouth, 2 times a day, # 60 tablet, Refills 11, Tot. Refills 11, Maintenance,08/07/20 13:57:00 EDT, Route to Pharmacy Electronically, [facility]/pharmacy #[id number], Partial fill upon patient request if the prescription is for a schedule II... Start Date: 08/07/20 Stop Date: 08/02/21 Status: Ordered Depakote 250 mg oral enteric coated tablet 1 tablet = 250 mg, By Mouth, 2 times a day, # 90 tablet, 0 Refills, Maintenance, 08/07/20 13:46:00 EDT, EC Tablet, Partial fill upon patient request if the prescription is for a schedule II opioid drug. Start Date: 08/07/20 Status: Ordered dicyclomine 10 mg oral capsule 1 capsule = 10 mg, By Mouth, 4 times a day, # 56 capsule, 0 Refills, Maintenance, 07/24/20 12:45:00EDT, Capsule, [facility]/pharmacy #[id number], Partial fill upon patient request if the prescription is for a schedule II opioid drug., 160, cm, 07/23/20 12:27:00 E... Start Date: 07/24/20 Stop Date: 08/07/20 Status: Ordered Lasix 40 mg oral tablet 40 mg, 1, tablet, By Mouth, Daily, # 30 tablet, Refills 11, Tot. Refills 11, Maintenance, 04/29/20 9:22:00 EST, Route to Pharmacy Electronically, [facility]/pharmacy #[id number], Partial fill upon patient requestif [...] 03/20/20 10:44:00 EST, Route to Pharmacy Electronically, [facility]/pharmacy #[id number], Partial fill upon patient request if the prescription is for a schedule II opioid drug... Start Date: 03/20/20 Status: Ordered potassium potassium, Refills 0, Maintenance, 08/09/20 12:24:00 EDT, Supply Start Date: 08/09/20 Status: Ordered prune juice prune juice, Refills 0, Maintenance, 08/09/20 12:24:00 EDT, Supply Start Date: 08/09/20 Status: Ordered Sinemet 25 mg-100 mg oral tablet 1 tablet, By Mouth, 3 times a day, # 90 tablet, 5 Refills, Maintenance, 08/09/20 13:00:00 EDT, Tablet, [facility]/pharmacy #[id number], Partial fill upon patient request if the prescription is for a schedule II opioid drug., 1 tablet By Mouth 3 times a day, 160, c... Start Date: 08/09/20 Status: Ordered Vitamin D3 [...] 4colo 2003 nl, rpt 2013 5MI 2019 33[address]; no repeat due to age 7restarted HCTZ; will monitor 8holding hctz ;recheck 9Antibody positive 10thought to be medication related by neurology Social History Social History Type Response Smoking Status Never smoker; Tobacc o user in household: No entered on: 07/05/14 Sex
--- OUTSIDE RECORDS SUMMARY | 2024-01-05 22:53 | XMS_ITS | Continuity of Care Document ---
Author Organization [facility] Address [address] [place] [address]- Care Team Providers Care Center Medical And Lab Director Name Role Phone Garrison Beatty MD Primary Care Physician [facility] 04[facility]/20 - 05/01/20 [facility] [address] [place] [address]- Allergies, Adverse Reactions, Alerts Substance Reaction Severity [...] Vaccine (oldterm) 03/08/00 Given 1Result Comment: [12/09/2017] [address]-70 2Result Comment: [04/15/2015 Uncharted] Pt had influenza vaccine 12/12/15- 3Admin Note: PT had the flu shot done at [facility] Flu clinic 4Admin Note: GIVEN IN CL[facility]IC [facility] 5Admin Note: [employer] [facility] 6Admin Note: [facility] 7Admin Note: GIVEN AT OUTSIDE [...] 04/29/20 7:44:00 EST, Route to Pharmacy Electronically, [facility] STORE [id number], 160, cm, 04/25/20 9:48:00 EST, Height, 62, [...] 04/29/20 9:22:00 EST, Route to Pharmacy Electronically, [facility]/pharmacy #[id number], Partial fill upon patient requestif the prescription is for a schedule II opioid symone... Start Date: 04/29/20 Stop Date: 04/24/21 Status: Ordered lisinopril 5 mg oral tablet 5 mg, 1, tablet, By Mouth, Daily, # 30 tablet, Refills 3, Tot. Refills 3, Maintenance, 04/25/20 10:36:00 EST, Route to Pharmacy Electronically, [facility]/pharmacy #[id number], Partial fill upon patient request [...] 03/20/20 10:44:00 EST, Route to Pharmacy Electronically, [facility]/pharmacy #[id number], Partial fill upon patient request [...] 4colo 2003 nl, rpt 2013 5MI 2019 26408; no repeat due to age 7restarted HCTZ; will monitor 8holding hctz ;recheck 9Antibody positive 10thought to be medication related by neurology Social History Social History Type Response Smoking Status Never smoker; Tobacc o user in household: No entered on: 07/05/14 Sex
--- OUTSIDE RECORDS SUMMARY | 2024-01-05 22:53 | XMS_ITS | Continuity of Care Document ---
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 Name Role Phone Jaci GOLD, Garrison Swan Primary Care Physician [facility]): 03/26/20 - 04/25/20 [facility] Adult [address] [place] [address]- Allergies, Adverse Reactions, Alerts Substance Reaction Severity [...] Vaccine (oldterm) 03/08/00 Given 1Result Comment: [12/09/2017] [id number] 2Result Comment: [04/15/2015 Uncharted] Pt had influenza vaccine 12/12/15- 3Admin Note: PT had the flu shot done at [facility] Flu clinic 4Admin Note: GIVEN IN CLINIC [facility] 5Admin Note: [email or web address] [facility] 6Admin Note: [employer] [facility] 7Admin Note: GIVEN AT OUTSIDE CLINIC 8Admin Note: per pt rcvd elsewhere Medications aspirin 81 mg oral tablet, chewable 81 mg, 1, tablet, By Mouth, Daily, Refills 0, Maintenance, 03/06/20 12:43:00 EST, Partial fill uponpatient request if the prescription is for a schedule II opioid drug. Start Date: 03/06/20 Status: Ordered Coreg 3.125 mg oral tablet [...] 04/09/20 7:42:00 EST, Route to Pharmacy Electronically, [facility]/pharmacy #[id number], Partial fill upon patient requestif the prescription is for a schedule II opioid symone... Start Date: 04/09/20 Stop Date: 04/04/21 Status: Ordered lisinopril 5 mg oral tablet 5 mg, 1, tablet, By Mouth, Daily, # 30 tablet, Refills 3, Tot. Refills 3, Maintenance, 04/25/20 10:36:00 EST, Route to Pharmacy Electronically, [facility]/pharmacy #[id number], Partial fill upon patient request [...] 03/20/20 10:44:00 EST, Route to Pharmacy Electronically, [facility]/pharmacy #[id number], Partial fill upon patient request if the prescription is for a schedule II opioid drug... Start Date: 03/20/20 Status: Ordered potassium chloride 10 mEq oral tablet, extended release 2 tablet = 20 mEq, By Mouth, Daily in AM, # 60 tablet, 5 Refills, Maintenance, 03/20/20 10:44:00 EST, ER Tablet, [facility]/pharmacy #[id number], Partial fill upon patient request if the prescription is for a schedule II opioid drug., 160, cm, 03/18/20 10:03:00 ES... Start Date: 03/20/20 Status: Ordered Vitamin D3 = 1,000 International_Units, [...] 4colo 2004 nl, rpt 2013 5MI 2019 24183; no repeat due to age 7restarted HCTZ; will monitor 8holding hctz ;recheck 9Antibody positive 10thought to be medication related by neurology Social History Social History Type Response Smoking Status Never smoker; Tobacc o user in household: No entered on: 07/05/14 Sex
--- OUTSIDE RECORDS SUMMARY | 2024-01-05 22:53 | XMS_ITS | Continuity of Care Document ---
Author Organization [facility] Address [address] [place] [address]- Care Team Providers Care It Compliance Analyst Name Role Phone Garrison Beatty MD Primary Care Physician [phone] [facility] 02/17/19 - 02/17/[address] [address]- [facility] Attending Physician: Garrison Beatty MD Allergies, Adverse [...] Vaccine (oldterm) 03/08/00 Given 1Result Comment: [12/09/2017] [id number] 2Result Comment: [04/15/2015 Uncharted] Pt had influenza vaccine 12/12/15- 3Admin Note: PT had the flu shot done at [facility] Flu clinic 4Admin Note: GIVEN IN CL[facility]IC [facility] 5Admin Note: [facility] 6Admin Note: [employer] [facility] 7Admin Note: GIVEN AT OUTSIDE CLINIC 8Admin [...] Status: Ordered hydrochlorothiazide 25 mg oral tablet 50 mg, 2, tablet, By Mouth, Daily, # 60 tablet, Refills 11, Tot. Refills 11, Maintenance, 01/09/19 13:33:23 EST, Route to Pharmacy Electronically, [id number], [facility] # [id number] Start Date: 01/09/19 Stop Date: 01/04/20 Status: Ordered Multivitamin 1 tablet, By Mouth, [...] colo 2008 4colo 2003 nl, rpt 2013 62993; no repeat due to age 6restarted HCTZ; will monitor 7holding hctz ;recheck 8Antibody positive 9thought to be medication related by neurology Social History Social History Type Response Smoking Status Never smoker; Tobacc o user in household: No entered on: 07/05/14 Sex
--- OUTSIDE RECORDS SUMMARY | 2024-01-05 22:53 | XMS_ITS | Continuity of Care Document ---
Author Organization [facility] Address [address] [place] [address]- Care Team Providers Care Library Monitor Name Role Phone Delvis ALEXANDER, Catie Shelton Primary Care Physician [facility]): 03/14/23 - 04/13/23 [facility] Adult [address] [place] [address]- Allergies, Adverse Reactions, Alerts Substance Reaction Severity Status cephalexin Active nitrofurantoin Active sulfADIAZINE Ciprofloxacin Active predniSONE SEVERE H/A Active valsartan 1 Active statins MYALGIAS Active 1dizziness Immunizations Given and Recorded Vaccine Date Status Refusal Reason influenza virus vaccine, inactivated 11/05/22 Cachorro rded influenza virus vaccine, inactivated 1 11/27/21 Gi cyn influenza virus vaccine, inactivated 12/16/20 Cachorro rded influenza virus vaccine, inactivated 2 12/08/17 Gi cyn influenza virus vaccine, inactivated 11/30/16 Give n influenza virus vaccine, inactivated 12/18/15 Give n influenza virus vaccine, inactivated 12/11/14 Give n influenza virus vaccine, inactivated 12/12/13 Give n influenza virus vaccine, inactivated 11/28/12 Give n influenza virus vaccine, inactivated 11/30/11 Give n influenza virus vaccine, inactivated 12/10/08 Give n influenza virus vaccine, inactivated 3 12/30/05 Gi cyn [id number] 12y+ bivalent booster vax 08/06/22 Recorded [id number] 12y+ bivalent booster vax 12/13/21 Recorded pneumococcal 23-valent vaccine 4 07/29/21 Given SARS-CoV-2 mRNA ([id number]) vax 06/21/21 Recorded SARS-CoV-2 (COVID-19) mRNA BNT-162b2 vac 11/28/20 Recorded [...] Toxoid Vaccine (oldterm) 03/08/00 Given 1Result Comment: [facility]# [id number] 2Result Comment: [12/09/2017] [id number] 3Admin Note: GIVEN IN [facility]IC [facility] 4Result Comment: [facility]# [id number] 5Admin Note: [employer] 6Admin Note: [employer] 7Admin Note: GIVEN AT OUTSIDE CLINIC 8Admin Note: per pt rcvd elsewhere Medications amLODIPine 5 mg oral tablet 1 tablet, By Mouth, Daily, # 30 tablet, 5 Refills, Maintenance, 03/14/23 14:05:00 EST, [facility] STORE 59519, 157.5, cm, 08/04/22 8:48:00 EDT, Height, 59.5, kg, 06/03/22 14:32:00 EDT, Dry Weight Start Date: 03/14/23 Status: Ordered Aspirin Low Dose 81 mg oral delayed release tablet 1 tablet, By Mouth, Daily, # 30 tablet, 5 Refills, Maintenance, 03/18/23 7:42:00 EST, [facility]/pharmacy #[id number], 157.5, cm, 08/04/22 8:48:00 EDT, Height, 59.5, kg, 06/03/22 14:32:00 EDT, Dry Weight Start Date: 03/18/23 Status: Ordered carvedilol 6.25 mg oral tablet 1, tablet, By Mouth, 2 times a day, # 180 tablet, Refills 1, Tot. Refills 1, Maintenance, 01/27/23 20:22:00 EST, [id number] 157.5, cm, 08/04/22 8:48:00 EDT,Height, 59.5, kg, 06/03/22 14:32:00 EDT, Dry Weight Start Date: 01/27/23 Status: Ordered clopidogrel 75 mg oral tablet 1, tablet, By Mouth, Daily, # 30 tablet, Refills 5, Tot. Refills 5, Maintenance, 03/26/22 11:55:00 EST, [id number] 158, cm, 02/27/22 13:27:00 EST, Height, 63, kg, 07/28/21 1:38:00 EDT, Dry Weight Start Date: 03/26/22 Status: Ordered Daily Brielle oral tablet 1 tablet, By Mouth, Daily, # 30 tablet, 11 Refills, Maintenance, 02/15/23 12:26:00 EST, [facility], 30, TAKE 1 TABLET BY MOUTH EVERY DAY, 157.5, cm, 08/04/22 8:48:00 EDT, Height, 59.5, kg, 06/03/22 14:32:00 EDT, Dry Weight Start Date: 02/15/23 Status: Ordered donepezil 5 mg oral tablet 1, tablet, By Mouth, Daily at bedtime, # 30 tablet, Refills 2, Maintenance, 05/25/22 16:50:00 EDT, Route to Pharmacy Electronically, [facility], 158, cm, 02/27/22 13:27:00 EST, Height, 63, kg, 07/28/21 1:38:00 EDT, Dry Weight Start Date: 05/25/22 Status: Ordered furosemide 40 mg oral tablet 1, tablet, By Mouth, Daily, # 30 tablet, Refills 5, Tot. Refills 5, Maintenance, 03/18/23 7:42:00 EST, Route to Pharmacy Electronically, [facility]/pharmacy #[id number], 157.5, cm, 08/04/22 8:48:00 EDT, Height, 59.5, kg, 06/03/22 14:32:00 EDT, Dry Weight Start Date: 03/18/23 Status: Ordered lisinopril 10 mg oral tablet 1, tablet, By Mouth, 2 times a day, # 180 tablet, Refills 3, Maintenance, 01/25/23 11:53:00 EST, Route to Pharmacy Electronically, [facility], 157.5, cm, 08/04/22 8:48:00 EDT, Height, 59.5, kg, 06/03/22 14:32:00 EDT, Dry Weight Start Date: 01/25/23 Status: Ordered magnesium oxide 400 mg oral tablet 1 tablet = 400 mg, By Mouth, Daily, 0 Refills, Maintenance, 07/16/22 11:01:00 EDT, Partial fill upon patient request if the prescription is for a schedule II opioid drug. Start Date: 07/16/22 Status: Ordered Nature's Bounty Probiotic 1 tablet, By Mouth, Daily, 0 Refills, Maintenance, 08/05/18 18:34:13 EDT Start Date: 08/05/18 Status: Ordered potassium chloride 10 mEq oral capsule, extended release 1 capsule, By Mouth, Daily, # 90 capsule, 3 Refills, Maintenance, 02/11/23 7:48:00 EST, [facility] STORE 07891, 157.5, cm, 08/04/22 8:48:00 EDT, Height, 59.5, kg, 06/03/22 14:32:00 EDT, Dry Weight Start Date: 02/11/23 Status: Ordered Vitamin D3 1000 intl units oral capsule 1 capsule, By Mouth, Daily, # 30 capsule, 5 Refills, Maintenance, 03/14/23 14:05:00 EST, [facility], 157.5, cm, 08/04/22 8:48:00 EDT, Height, 59.5, kg, 06/03/22 14:32:00 EDT, Dry Weight Start Date: 03/14/23 Status: Ordered ZyPREXA 5 mg oral tablet 5 mg, 1, tablet, By Mouth, Daily, # 90 tablet, Refills 0, Maintenance, 10/02/21 9:45:00 EDT, Partial fill upon patient request if the prescription is for a schedule II opioid drug. Start Date: 10/02/21 Status: Ordered Problem List Condition Confirmation Course Effective Dates Status Health Status Informant Adenomatous polyp of colon Confirmed Active Adrenal adenoma 1 Confirmed Active Change in bowel habits Confirmed Active Anxiety Confirmed Active Benign Essential Hypertension Confirmed Active Carotid artery stenosis Confirmed Active Chronic hypokalemia Confirmed Active Colonoscopy 2, 3, 4 Confirmed Active CAD (coronary artery disease) 5 Confirmed Active Diarrhea Confirmed Active Diverticulitis Confirmed Active Diverticulosis of sigmoid colon Confirmed Active Gallstones Confirmed Active Globus sensation Confirmed Active H/O psychosis Confirmed 03/18/09 Active Hemorrhoids, external Confirmed Active History of ST elevation myocardial infarction (STEMI) Confirmed Active History of cardiac catheterization Confirmed Active History of colonoscopy 6 Confirmed Active History of coronary artery bypass graft x 2 Confirmed Active History of squamous cell carcinoma Confirmed Active Elevated brain natriuretic peptide (BNP) level Confirmed Active Hypercalcemia 7, 8 Confirmed Active Hypercholesterolemia Confirmed Active Hypokalemia Confirmed Active Hyponatremia Confirmed Active Hypothyroidism Confirmed Active Mild cognitive impairment Confirmed Active MCI (mild cognitive impairment) Confirmed Active MRI of brain abnormal Confirmed Active Nephrolithiasis Confirmed Active Osteopenia Confirmed Active Depression, major, recurrent, moderate Confirmed Active Renal mass, left Confirmed Active (HCC)Schizoaffective disorder 9 Confirmed Active Subclinical hypothyroidism 10 Confirmed Active Tremor of unknown origin 11 Confirmed 03/18/09 Active Abnormal ultrasound of abdomen Confirmed Active 1Nonfunctional, noted on serial CT scans. 2colo 2010 adenomatous polyp, repeat 2014 3error with fh colon cancer needs colo 2008 4colo 2004 nl, rpt 2013 5MI 2019 [address]47; no repeat due to age 7restarted HCTZ; will monitor 8holding hctz ;recheck 9Per discharge note 03/05/21: Long-standing schizoaffective disorder, bipolar type. 10Antibody positive 11thought to be medication related by neurology Social History Social History Type Response Smoking Status Never (less than 100 in lifetime) entered on: 12/02/20 Sex Patient Care team information Care Team Personnel Name: Carley Vazquez RN Position: [facility] RN Member Role: Primary Care Nurse Name: Annia Iniguez NP Position: [facility] Associate Professional Member Role: Primary Care Nurse Address: Address: [address] [place] [address]- Name: Catie Washington Position: [facility] PCO Associate Professional Member Role: PCP Address: Address: [address] [place] [address]- [place] Name: David Knapp MD Position: [facility] Renal MD Member Role: Lifetime Consulting Physician Address: Address: [address] [facility] [place] [address]- Name: Zabrina Reyes RN Position: S RN Member Role: Primary Care Nurse Name: Melissa Ugarte RN Position: S RN Member Role: Primary Care Nurse Care Team Related Persons Name: LIVIA MAXWELL Address: [address] [place] [address] Name: DINA MAXWELL Address: home [address] [place] [address]
--- OUTSIDE RECORDS SUMMARY | 2024-01-05 22:53 | XMS_ITS | Continuity of Care Document ---
Author Organization [facility] Address [address] [place] [address]- Care Team Providers Care Resume Writer Name Role Phone Garrison Beatty MD Primary Care Physician [facility] 01[facility]29[facility]20 - 02/28/20 [facility] [address] [place] [address]- Allergies, Adverse Reactions, Alerts Substance Reaction Severity [...] Vaccine (oldterm) 03/08/00 Given 1Result Comment: [12/09/2017] [id number] 2Result Comment: [04/15/2015 Uncharted] Pt had influenza vaccine 12/12/15- 3Admin Note: PT had the flu shot done at [facility] Flu clinic 4Admin Note: GIVEN IN CLINIC [facility] 5Admin Note: [employer] [facility] 6Admin Note: [employer] [facility] 7Admin Note: GIVEN [...] EDT Start Date: 08/29/14 Status: Ordered Coreg 25 mg oral tablet 25 mg, 1, tablet, By Mouth, 2 times a day, # 60 tablet, Refills 11, Tot. Refills 11, Maintenance, 02/23/20 14:22:00 EST, Route to Pharmacy Electronically, [facility]/pharmacy #[id number], Partial fill upon patient request if the prescription is for a schedule II o... Start Date: 02/23/20 Stop Date: 02/17/21 Status: Ordered Depakote 250 mg oral enteric [...] Daily, # 30 tablet, 11 Refills, Maintenance, 02/23/20 14:22:00 EST, [id number], 158, cm, 02/23/20 14:12:00 EST, Height, 60.2, kg, 12/01/19 18:57:00 EDT, Dry Weight Start Date: 02/23/20 Status: Ordered Zyprexa 2.5 mg oral tablet [...] colo 2008 4colo 2003 nl, rpt 2013 61677; no repeat due to age 6restarted HCTZ; will monitor 7holding hctz ;recheck 8Antibody positive 9thought to be medication related by neurology Social History Social History Type Response Smoking Status Never smoker; Tobacc o user in household: No entered on: 07/05/14 Sex
--- OUTSIDE RECORDS SUMMARY | 2024-01-05 22:53 | XMS_ITS | Continuity of Care Document ---
Author Organization [facility] Address [address] [place] [address]- Care Team Providers Care Clinical Social Work Aide Name Role Phone Garrison Beatty MD Primary Care Physician [facility]): 05/24/20 - 05/31/20 [facility] Adult [address] [place] [address]- Attending Physician: Garrison Beatty MD Allergies, Adverse [...] Vaccine (oldterm) 03/08/00 Given 1Result Comment: [12/09/2017] [id number] 2Result Comment: [04/15/2015 Uncharted] Pt had influenza vaccine 12/12/15- 3Admin Note: PT had the flu shot done at [facility] Flu clinic 4Admin Note: GIVEN IN CL[facility]IC [facility] 5Admin Note: [employer] [facility] 6Admin Note: [employer] [facility] 7Admin Note: GIVEN AT OUTSIDE CLINIC 8Admin [...] 04/29/20 7:44:00 EST, Route to Pharmacy Electronically, [facility] STORE 88336, 160, cm, 04/25/20 9:48:00 EST, Height, 62, [...] 04/29/20 9:22:00 EST, Route to Pharmacy Electronically, [facility]/pharmacy #[id number], Partial fill upon patient requestif the prescription is for a schedule II opioid symone... Start Date: 04/29/20 Stop Date: 04/24/21 Status: Ordered lisinopril 5 mg oral tablet 5 mg, 1, tablet, By Mouth, Daily, # 30 tablet, Refills 3, Tot. Refills 3, Maintenance, 04/25/20 10:36:00 EST, Route to Pharmacy Electronically, [facility]/pharmacy #[id number], Partial fill upon patient [...] 03/20/20 10:44:00 EST, Route to Pharmacy Electronically, [facility]/pharmacy #[id number], Partial fill upon patient [...] 4colo 2003 nl, rpt 2013 5MI 2019 61652; no repeat due to age 7restarted HCTZ; will monitor 8holding hctz ;recheck 9Antibody positive 10thought to be medication related by neurology Vital Signs Most recent to oldest [Reference Range]: 1 Height 160 cm (05/24/20 2:01 PM) Social History Social History Type Response Smoking Status Never smoker; Tobacc o user in household: No entered on: 07/05/14 Sex
--- OUTSIDE RECORDS SUMMARY | 2024-01-05 22:53 | XMS_ITS | Continuity of Care Document ---
Author Organization [facility] Address [address] [place] [address]- Care Team Providers Care Helicopter Crew Chief Name Role Phone Jaci GOLD, Garrison Swan Primary Care Physician [phone] [facility] 05[facility]02[facility]21 - 06/01/21 [facility] Adult [address] [place] [address]- Allergies, Adverse Reactions, Alerts Substance Reaction Severity [...] Vaccine (oldterm) 03/08/00 Given 1Result Comment: [12/09/2017] [id number] 2Result Comment: [04/15/2015 Uncharted] Pt had influenza vaccine 12/12/15- 3Admin Note: PT had the flu shot done at [facility] Flu clinic 4Admin Note: GIVEN IN CL[facility]IC [facility] 5Admin Note: [employer] [facility] 6Admin Note: [employer] [facility] 7Admin Note: GIVEN AT OUTSIDE CLINIC 8Admin Note: per pt rcvd elsewhere Medications amLODIPine 5 mg oral tablet 5 mg, 1, tablet, By Mouth, Daily, # 30 tablet, Refills 11, Tot. Refills 11, Maintenance, 03/12/21 16:13:00 EST, Route to Pharmacy Electronically, [facility]/pharmacy #[id number], Partial fill upon patient requestif the prescription is for a schedule II opioid symone... Start Date: 03/12/21 Status: Ordered Aricept 5 mg oral tablet 5 mg, 1, tablet, By Mouth, Daily at bedtime, # 30 tablet, Refills 11, Tot. Refills 11, Maintenance,03/12/21 16:10:00 EST, Route to Pharmacy Electronically, [facility]/pharmacy #[id number], Partial fill upon patient request if [...] Maintenance,03/12/21 16:08:00 EST, [id number] Partial fill upon patient request if the prescription is for a schedule II... Start Date: 03/12/21 Status: Ordered clopidogrel 75 mg oral tablet 1, tablet, By Mouth, Daily, # 30 tablet, Refills 11, Tot. Refills 11, Maintenance, 03/12/21 16:09:00 EST, Route to Pharmacy Electronically, [facility]/pharmacy #[id number], 157, cm, 03/12/21 13:26:00 EST, Height,60, kg, 01/20/21 16:03:00 EST, Dry Weight Start Date: 03/12/21 Status: Ordered Lasix 40 mg oral tablet 40 mg, 1, tablet, By Mouth, Daily, # 30 tablet, Refills 11, Tot. Refills 11, Maintenance, 03/12/21 16:08:00 EST, [id number] Partial fill upon patient request if the prescription is for a schedule II opioid dr... Start Date: 03/12/21 Stop Date: 03/07/22 Status: Ordered lisinopril 10 mg oral tablet 10 mg, 1, tablet, By Mouth, 2 times a day, # 60 tablet, Refills 11, Tot. Refills 11, Maintenance, 03/12/21 16:09:00 EST, [id number] Partial fill upon patient request if the prescription is for a schedule II o... Start Date: 03/12/21 Stop Date: 03/07/22 Status: Ordered magnesium oxide 400 mg oral tablet 1 tablet = 400 mg, By Mouth, Daily, for 30 days, # 30 tablet, 11 Refills, Acute 03/07/22 16:11:00 EST, 03/12/21 16:11:00 EST, Tablet, [facility]/pharmacy #[id number], Partial fill upon patient request if [...] Refills, Maintenance, 03/12/21 16:07:00 EST, ER Capsule, [facility]/pharmacy #[id number], Partial fill upon patient request if [...] 4colo 2004 nl, rpt 2013 5MI 2019 34905; no repeat due to age 7restarted HCTZ; will monitor 8holding hctz ;recheck 9Antibody positive 10thought to be medication related by neurology Social History Social History Type Response Smoking Status Never (less than 100 in lifetime) entered on: 12/02/20 Sex
--- OUTSIDE RECORDS SUMMARY | 2024-01-05 22:53 | XMS_ITS | Continuity of Care Document ---
Author Organization [facility] [place] [facility] Address [address] [address]- Care Team Providers Care Control Specialist Name Role Phone Jaci GOLD, Garrison Swan Primary Care Physician [phone] [facility] 03[facility]/20 - 03/26/20 [facility] [address] [address]- Attending Physician: Eduardo GOLD, David Referring Physician: Joseph Post MD Allergies, Adverse Reactions, Alerts Substance Reaction [...] Vaccine (oldterm) 03/08/00 Given 1Result Comment: [12/09/2017] [id number] 2Result Comment: [04/15/2015 Uncharted] Pt had influenza vaccine 12/12/15- 3Admin Note: PT had the flu shot done at [facility] Flu clinic 4Admin Note: GIVEN IN CLINIC [facility] 5Admin Note: [facility] 6Admin Note: [facility] 7Admin Note: GIVEN AT OUTSIDE CLINIC 8Admin Note: per pt rcvd elsewhere Medications amiodarone 200 mg oral tablet 200 mg, 1, tablet, By Mouth, 2 times a day, # 60 tablet, Refills 5, Tot. Refills 5, Maintenance, 03/20/20 10:44:00 EST, Route to Pharmacy Electronically, [facility]/pharmacy #[id number], Partial fill upon patientrequest if the prescription [...] 03/20/20 10:44:00 EST, Route to Pharmacy Electronically, [facility]/pharmacy #[id number], Partial fill upon patient request if the prescription is for a schedule II opioid drug... Start Date: 03/20/20 Status: Ordered Maalox Plus Liquid 15 mL, [...] 03/20/20 10:44:00 EST, Route to Pharmacy Electronically, [facility]/pharmacy #[id number], Partial fill upon patient request if the prescription is for a schedule II opioid drug... Start Date: 03/20/20 Status: Ordered potassium chloride 10 mEq oral tablet, extended release 2 tablet = 20 mEq, By Mouth, Daily in AM, # 60 tablet, 5 Refills, Maintenance, 03/20/20 10:44:00 EST, [id number] fill upon patient request [...] 4colo 2004 nl, rpt 2013 5MI 2019 44659; no repeat due to age 7restarted HCTZ; will monitor 8holding hctz ;recheck 9Antibody positive 10thought to be medication related by neurology Social History Social History Type Response Smoking Status Never smoker; Tobacc o user in household: No entered on: 07/05/14 Sex
--- OUTSIDE RECORDS SUMMARY | 2024-01-05 22:54 | XMS_ITS | Continuity of Care Document ---
Author Organization [facility] Address [address] [place] [address]- Care Team Providers Care Embalmer Assistant Name Role Phone Jaci GOLD, Garrison Swan Primary Care Physician [facility] Date[facility]): 07/03/20 - 08/02/20 [facility] Adult [address] [place] [address]- Allergies, Adverse Reactions, Alerts Substance Reaction Severity [...] Vaccine (oldterm) 03/08/00 Given 1Result Comment: [12/09/2017] [id number] 2Result Comment: [04/15/2015 Uncharted] Pt had influenza vaccine 12/12/15- 3Admin Note: PT had the flu shot done at [facility] Flu clinic 4Admin Note: GIVEN IN [facility] 5Admin Note: [facility] 6Admin Note: [facility] 7Admin Note: GIVEN AT OUTSIDE CLINIC 8Admin Note: per pt rcvd elsewhere Medications carvedilol 3.125 mg oral tablet See Instructions, TAKE 1 TABLET BY MOUTH TWICE A DAY, # 60 tablet, Refills 11, Tot. Refills 11, Maintenance, Instructions Replace Required Details, Route to Pharmacy Electronically, [id number], 160, cm, 07/05/20 7:47:00 EDT, Height, 62, kg, 02/26... Start Date: 07/05/20 Status: Ordered dicyclomine 10 mg oral capsule 1 capsule = 10 mg, By Mouth, 4 times a day, # 56 capsule, 0 Refills, Maintenance, 07/24/20 12:45:00EDT, Capsule, [facility]/pharmacy #[id number], Partial fill upon patient request if the prescription is for a schedule II opioid drug., 160, cm, 07/23/20 12:27:00 E... Start Date: 07/24/20 Stop Date: 08/07/20 Status: Ordered Lasix 40 mg oral tablet 40 mg, 1, tablet, By Mouth, Daily, # 30 tablet, Refills 11, Tot. Refills 11, Maintenance, 04/29/20 9:22:00 EST, Route to Pharmacy Electronically, [facility]/pharmacy #[id number], Partial fill upon patient requestif [...] 03/20/20 10:44:00 EST, Route to Pharmacy Electronically, [facility]/pharmacy #[id number], Partial fill upon patient request if the prescription is for a schedule II opioid drug... Start Date: 03/20/20 Status: Ordered potassium chloride 10 mEq oral tablet, extended release 2 tablet = 20 mEq, By Mouth, Daily in AM, # 60 tablet, 5 Refills, Maintenance, 04/29/20 9:23:00 EST, ER Tablet, [facility]/pharmacy #[id number], Partial fill upon patient request if the prescription is for a schedule II opioid drug., 160, cm, 04/29/20 8:53:00 EST,... Start Date: 04/29/20 Status: Ordered sacubitril-valsartan 24 mg-26 mg oral tablet 1 tablet, By Mouth, 2 times a day, Take one tablet by mouth twice daily, # 60 tablet, 6 Refills, Maintenance, 07/23/20 14:14:00 EDT, Tablet, [facility]/pharmacy #[id number], replaces valsartan, 1 tablet By Mouth 2 times a day,x30 days,Instr:Take one tablet by mout... Start Date: 07/23/20 Stop Date: 02/18/21 Status: Ordered Vitamin D3 = 1,000 International_Units, [...] 4colo 2004 nl, rpt 2013 5MI 2019 48956; no repeat due to age 7restarted HCTZ; will monitor 8holding hctz ;recheck 9Antibody positive 10thought to be medication related by neurology Social History Social History Type Response Smoking Status Never smoker; Tobacc o user in household: No entered on: 07/05/14 Sex
--- OUTSIDE RECORDS SUMMARY | 2024-01-05 22:54 | XMS_ITS | Continuity of Care Document ---
Author Organization [facility] Address [address] [place] [address]- Care Team Providers Care Pillowcase Maker Name Role Phone Jaci GOLD, Garrison Swan Primary Care Physician [facility] Date[facility]s): 01/01/22 - 01/31/22 [facility] Adult [address] [place] [address]- Allergies, Adverse Reactions, Alerts Substance Reaction Severity Status cephalexin Active nitrofurantoin Active sulfADIAZINE Ciprofloxacin Active predniSONE SEVERE H/A Active valsartan 1 Active Macrobid Active statins MYALGIAS Active 1dizziness Immunizations Given and Recorded Vaccine Date Status Refusal Reason influenza virus vaccine, inactivated 1 11/27/21 Gi cyn influenza virus vaccine, inactivated 12/16/20 Cachorro rded influenza virus vaccine, inactivated 2 12/08/17 Gi cyn influenza virus vaccine, inactivated 11/30/16 Give n influenza virus vaccine, inactivated 12/18/15 Give n influenza virus vaccine, inactivated 3, 4 12/20/14 Given influenza virus vaccine, inactivated 12/11/14 Give n influenza virus vaccine, inactivated 12/12/13 Give n influenza virus vaccine, inactivated 11/28/12 Give n influenza virus vaccine, inactivated 11/30/11 Give n influenza virus vaccine, inactivated 12/10/08 Give n influenza virus vaccine, inactivated 5 12/30/05 Gi cyn pneumococcal 23-valent vaccine 6 07/29/21 Given SARS-CoV-2 mRNA ([id number]-dwmw-eabkd) vax 06/21/21 Recorded SARS-CoV-2 (COVID-19) mRNA BNT-162b2 vac 11/28/20 Recorded SARS-CoV-2 (COVID-19) mRNA BNT-162b2 vac 04/02/20 Recorded SARS-CoV-2 (COVID-19) mRNA BNT-162b2 vac 03/12/20 Recorded Influenza Virus Vaccine (oldterm) 10/21/19 Recorde d Influenza Virus Vaccine (oldterm) 11/21/18 Recorde d tetanus-diphtheria toxoids (Td) 12/02/15 Given pneumococcal 13-valent vaccine 05/30/14 Given FluLaval (oldterm) 7 12/04/10 Given FluLaval (oldterm) 8 12/27/09 Given Pneumococcal Vacc (oldterm) 06/03/10 Given Tet/Diphth/Acel, Pertussis (oldterm) 09/26/09 Give n Zostavax (oldterm) 06/06/09 Given influ virus vac, H1N1, inactive(oldterm) 9 03/18/09 Given influ virus vac, H1N1, inactive(oldterm) 10 03/18/09 Given Tetanus Toxoid Vaccine (oldterm) 03/08/00 Given 1Result Comment: [facility]# [id number] 2Result Comment: [12/09/2017] [id number] 3Result Comment: [04/15/2015 Uncharted] Pt had influenza vaccine 12/12/15- 4Admin Note: PT had the flu shot done at [facility] Flu clinic 5Admin Note: GIVEN IN CLINIC [facility] 6Result Comment: [facility]# [id number] 7Admin Note: [facility] 8Admin Note: [facility] 9Admin Note: GIVEN AT OUTSIDE CLINIC 10Admin Note: per pt rcvd elsewhere Medications amLODIPine 5 mg oral tablet See Instructions, TAKE 1 TABLET BY MOUTH EVERY DAY, # 30 tablet, 5 Refills, Maintenance, 01/01/22 15:18:00 EDT, [id number], 158, cm, 11/27/21 8:19:00 EDT, Height, 63, kg, 07/28/21 1:38:00 EDT, Dry Weight Start Date: 01/01/22 Status: Ordered aspirin 81 mg oral capsule [...] tablet, Refills 5, Tot. Refills 5, Maintenance, 10/13/21 14:45:00 EDT, [id number] Partial fill upon patient request if the prescription is for a schedule II o... Start Date: 10/13/21 Status: Ordered clopidogrel 75 mg oral tablet 1, tablet, By Mouth, Daily, # 30 tablet, Refills 0, Maintenance, 11/06/21 16:29:00 EDT, Route to Pharmacy Electronically, [facility] STORE [id number], 158, cm, 10/02/21 9:27:00 EDT, Height, 63, kg, 07/28/21 1:38:00 EDT, Dry Weight Start Date: 11/06/21 Status: Ordered donepezil 5 mg oral tablet See Instructions, TAKE 1 TABLET BY MOUTH AT BEDTIME, # 30 tablet, Refills 5, Tot. Refills 5, 01/23/22 15:56:00 EST, Instructions Replace Required Details, [id number], 158, cm, 01/21/22 13:27:00 EST, Height, 63... Start Date: 01/23/22 Status: Ordered Lasix 40 mg oral tablet 40 mg, 1, tablet, By Mouth, Daily, # 30 tablet, Refills 11, Tot. Refills 11, Maintenance, 03/12/21 16:08:00 EST, [id number] Partial fill upon patient request if the prescription is for a schedule II opioid dr... Start Date: 03/12/21 Stop Date: 03/07/22 Status: Ordered lisinopril 10 mg oral tablet 10 mg, 1, tablet, By Mouth, 2 times a day, # 180 tablet, Refills 3, Tot. Refills 3, Maintenance, 03/07/22 16:09:00 EST, [id number] Partial fill upon patientrequest if the prescription is for a schedule II op... Start Date: 03/07/22 Status: Ordered magnesium oxide 400 mg oral tablet 1 tablet = 400 mg, By Mouth, Daily, for 30 days, # 30 tablet, 11 Refills, Acute 03/07/22 16:11:00 EST, 03/12/21 16:11:00 EST, Tablet, [facility]/pharmacy #[id number], Partial fill upon patient request if [...] = 10 mEq, By Mouth, Daily, # 90 capsule, 3 Refills, Maintenance, 01/23/22 15:28:00 EST, ER Capsule, [facility]/pharmacy #[id number], Partial fill upon patient request if the prescription is for a schedule II opioid drug., 158, cm, 01/21/22 13:27:00 EST,... Start Date: 01/23/22 Status: Ordered Vitamin D3 = 1,000 International_Units, By Mouth, 0 Refills, Maintenance, 09/21/12 16:02:30 Start Date: 09/21/12 Status: Ordered ZyPREXA 5 mg oral tablet [...] Confirmed Active Mild cognitive impairment Confirmed Active MRI of brain abnormal Confirmed [...] 4colo 2004 nl, rpt 2013 5MI 2019 15980; no repeat due to age 7restarted HCTZ; will monitor 8holding hctz ;recheck 9Per discharge note 03/05/21: Long-standing schizoaffective disorder, bipolar type. 10Antibody positive 11thought to be medication related by neurology Social History Social History Type Response Smoking Status Never (less than 100 in lifetime) entered on: 12/02/20 Sex Patient Care team information Care Team Personnel Name: Carley Vazquez RN Position: S RN Member Role: Primary Care Nurse Name: Annia Iniguez NP Position: [facility] Associate Professional Member Role: Primary Care Nurse Address: Address: [address] [place] [address]- [place] Name: Garrison Beatty MD Position: [facility] Primary Care Physician Member Role: PCP Address: Address: [address] [place] [address]- [place] Name: David Knapp MD Position: [facility] Renal MD Member Role: Lifetime Consulting Physician Address: Address: [address] [facility] [address] [facility] [place] [address]- [place] Name: Zabrina Reyes RN Position: [facility] RN Member Role: Primary Care Nurse Name: Melissa Ugarte RN Position: [facility] RN Member Role: Primary Care Nurse Care Team Related Persons Name: LIVIA MAXWELL Address: [address] [address] Name: DINA MAXWELL Address: [address] [address]
--- OUTSIDE RECORDS SUMMARY | 2024-01-05 22:54 | XMS_ITS | Continuity of Care Document ---
Author Organization [facility] Address [address] [place] [address]- Care Team Providers Care Security Systems Manager Name Role Phone Garrison Beatty MD Primary Care Physician [phone] [facility] Date[facility]s): 01/09/22 - 02/08/22 [facility] [address] [place], [place] [address] Attending Physician: AdmRenetta webb Admitting Physician: Admtr, Renetta Referring Physician: Admtr, Ar8 Allergies, Adverse Reactions, Alerts Substance Reaction Severity Status cephalexin Active nitrofurantoin Active valsartan 1 Active Macrobid Active statins MYALGIAS Active sulfADIAZINE Ciprofloxacin Active predniSONE SEVERE H/A Active 1dizziness Immunizations Given and Recorded Vaccine [...] 23-valent vaccine 6 07/29/21 Given SARS-CoV-2 mRNA (feiomgw-xkug-cycqw) vax 06/21/21 Recorded SARS-CoV-2 (COVID-19) mRNA BNT-162b2 [...] Toxoid Vaccine (oldterm) 03/08/00 Given 1Result Comment: [facility]# [id number] 2Result Comment: [12/09/2017] [id number] 3Result Comment: [04/15/2015 Uncharted] Pt had influenza vaccine 12/12/15- 4Admin Note: PT had the flu shot done at [facility] Flu clinic 5Admin Note: GIVEN IN CL[facility]IC [facility] 6Result Comment: [facility]# [id number] 7Admin Note: [employer] [facility] 8Admin Note: [employer] [facility] 9Admin Note: GIVEN AT OUTSIDE CLINIC 10Admin Note: per pt rcvd elsewhere Medications amLODIPine 5 mg oral tablet See Instructions, TAKE 1 TABLET BY MOUTH EVERY DAY, # 30 tablet, 5 Refills, Maintenance, 01/01/22 15:18:00 EDT, [id number], 158, cm, 11/27/21 8:19:00 EDT, Height, 63, [...] tablet, Refills 3, Tot. Refills 3, Maintenance, 02/02/22 16:34:00 EST, [id number] fill upon patient request if the prescription is for a schedule II... Start Date: 02/02/22 Status: Ordered clopidogrel 75 mg oral tablet 1, tablet, By Mouth, Daily, # 30 tablet, Refills 0, Maintenance, 11/06/21 16:29:00 EDT, Route to Pharmacy Electronically, [facility] STORE [id number], 158, cm, 10/02/21 9:27:00 EDT, Height, 63, kg, 07/28/21 1:38:00 EDT, Dry Weight Start Date: 11/06/21 Status: Ordered donepezil 5 mg oral tablet See Instructions, TAKE 1 TABLET BY MOUTH AT BEDTIME, # 30 tablet, Refills 5, Tot. Refills 5, 01/23/22 15:56:00 EST, Instructions Replace Required Details, [id number], cm, 01/21/22 13:27:00 EST, Height, 63... Start Date: 01/23/22 Status: Ordered Lasix 40 mg oral tablet 40 mg, 1, tablet, By Mouth, Daily, # 30 tablet, Refills 11, Tot. Refills 11, Maintenance, 03/12/21 16:08:00 EST, [id number] Partial fill upon patient request if the prescription is for a schedule II opioid dr... Start Date: 03/12/21 Stop Date: 03/07/22 Status: Ordered lisinopril 10 mg oral tablet 10 mg, 1, tablet, By Mouth, 2 times a day, # 180 tablet, Refills 3, Tot. Refills 3, Maintenance, 03/07/22 16:09:00 EST, [id number] fill upon patientrequest if the prescription is for a schedule II op... Start Date: 03/07/22 Status: Ordered magnesium oxide 400 mg oral tablet 1 tablet = 400 mg, By Mouth, Daily, for 30 days, # 30 tablet, 11 Refills, Acute 03/07/22 16:11:00 EST, 03/12/21 16:11:00 EST, Tablet, [facility]/pharmacy #[id number], Partial fill upon patient request [...] Refills, Maintenance, 01/23/22 15:28:00 EST, ER Capsule, [facility]/pharmacy #[id number], Partial fill upon patient request [...] 4colo 2004 nl, rpt 2013 5MI 2019 13860; no repeat due to age 7restarted HCTZ; will monitor 8holding hctz ;recheck 9Per discharge note 03/05/21: Long-standing schizoaffective disorder, bipolar type. 10Antibody positive 11thought to be medication related by neurology Social History Social History Type Response Smoking Status Never (less than 100 in lifetime) entered on: 12/02/20 Sex Patient Care team information Care Team Personnel Name: Carley Vazquez RN Position: [facility] RN Member Role: Primary Care Nurse Name: Annia Iniguez NP Position: [facility] Associate Professional Member Role: Primary Care Nurse Address: Address: [address] [place] [address]- [place] Name: Garrison Beatty MD Position: [facility] Primary Care Physician Member Role: PCP Address: Address: [address] [place] [address]- [place] Name: David Knapp MD Position: [facility] Renal MD Member Role: Lifetime Consulting Physician Address: Address: [address] [facility] [address] [facility] [place] [address]- [place] Name: Zabrina Reyes RN Position: [facility] RN Member Role: Primary Care Nurse Name: Melissa Ugarte RN Position: S RN Member Role: Primary Care Nurse Care Team Related Persons Name: HANS LIVIA Address: [address] [address] Name: DINA MAXWELL Address: [address] [address]
--- OUTSIDE RECORDS SUMMARY | 2024-01-05 22:54 | XMS_ITS | Continuity of Care Document ---
Author Organization [facility] Address [address] [place] [address]- Care Team Providers Care Dean Of Women Name Role Phone Garrison Beatty MD Primary Care Physician [phone] Encounter [facility] Date(s): 06/26/21 - 07/26/21 [facility] [address] [place] [address]- Attending Physician: eRnetta Strickland Admitting Physician: Renetta Strickland Referring Physician: Renetta Strickland Allergies, Adverse Reactions, [...] Vaccine (oldterm) 03/08/00 Given 1Result Comment: [12/09/2017] [id number] 2Result Comment: [04/15/2015 Uncharted] Pt had influenza vaccine 12/12/15- 3Admin Note: PT had the flu shot done at [facility] Flu clinic 4Admin Note: GIVEN IN CL[facility]IC [facility] 5Admin Note: [facility] 6Admin Note: [facility] [employer] [facility] 7Admin Note: GIVEN AT OUTSIDE CLINIC 8Admin Note: per pt rcvd elsewhere Medications amLODIPine 5 mg oral tablet 5 mg, 1, tablet, By Mouth, Daily, # 30 tablet, Refills 11, Tot. Refills 11, Maintenance, 03/12/21 16:13:00 EST, Route to Pharmacy Electronically, [facility]/pharmacy #[id number], Partial fill upon patient requestif the prescription is for a schedule II opioid symone... Start Date: 03/12/21 Status: Ordered Aricept 5 mg oral tablet 5 mg, 1, tablet, By Mouth, Daily at bedtime, # 30 tablet, Refills 11, Tot. Refills 11, Maintenance,03/12/21 16:10:00 EST, Route to Pharmacy Electronically, [facility]/pharmacy #[id number], Partial fill upon patient request [...] tablet, By Mouth, 2 times a day, DOSAGE DECREASE, # 60 tablet, Refills 1, Tot. Refills 1, Maintenance, 06/26/21 10:43:00 EDT, [id number] Partial[facility] upon patient request if the prescription is fo... Start Date: 06/26/21 Status: Ordered clopidogrel 75 mg oral tablet 1, tablet, By Mouth, Daily, # 30 tablet, Refills 11, Tot. Refills 11, Maintenance, 03/12/21 16:09:00 EST, [id number], [facility], cm, 03/12/21 13:26:00 EST, Height,60, kg, 01/20/21 16:03:00 EST, Dry Weight Start Date: 03/12/21 Status: Ordered Lasix 40 mg oral tablet 40 mg, 1, tablet, By Mouth, Daily, # 30 tablet, Refills 11, Tot. Refills 11, Maintenance, 03/12/21 16:08:00 EST, [id number] Partial fill upon patient request if the prescription is for a schedule II opioid dr... Start Date: 03/12/21 Stop Date: 03/07/22 Status: Ordered lisinopril 10 mg oral tablet 10 mg, 1, tablet, By Mouth, 2 times a day, # 60 tablet, Refills 11, Tot. Refills 11, Maintenance, 03/12/21 16:09:00 EST, [id number] Partial fill upon patient request if the prescription is for a schedule II o... Start Date: 03/12/21 Stop Date: 03/07/22 Status: Ordered magnesium oxide 400 mg oral tablet 1 tablet = 400 mg, By Mouth, Daily, for 30 days, # 30 tablet, 11 Refills, Acute 03/07/22 16:11:00 EST, 03/12/21 16:11:00 EST, Tablet, [facility]/pharmacy #[id number], Partial fill upon patient request [...] Refills, Maintenance, 03/12/21 16:07:00 EST, ER Capsule, [facility]/pharmacy #[id number], Partial fill upon patient request [...] 4colo 2004 nl, rpt 2013 5MI 2019 [address]; no repeat due to age 7restarted HCTZ; will monitor 8holding hctz ;recheck 9Antibody positive 10thought to be medication related by neurology Social History Social History Type Response Smoking Status Never (less than 100 in lifetime) entered on: 12/02/20 Sex
--- OUTSIDE RECORDS SUMMARY | 2024-01-05 22:54 | XMS_ITS | Continuity of Care Document ---
Author Organization [facility]on Yon lt Address [address] [place] [address]- Care Team Providers Care Care Program Resident Name Role Phone Jaci GOLD, Garrison Swan Primary Care Physician [facility]23 - 08/20/23 [facility] Adult [address] [place] [address]- Attending Physician: Catie Washington Allergies, Adverse Reactions, Alerts Substance Reaction Severity Status cephalexin Active nitrofurantoin Active sulfADIAZINE Ciprofloxacin Active predniSONE SEVERE H/A Active valsartan 1 Active statins MYALGIAS Active 1dizziness Immunizations Given and Recorded Vaccine Date Status Refusal Reason RSV vaccine, preF A-preF B, recombinant 03/23/23 R ecorded SARS-CoV-2(COVID-19)mRNA-LNP vac([id number]) 11/26/22 Recorded influenza virus vaccine, inactivated 11/05/22 Cachorro rded [...] virus vaccine, inactivated 3 12/30/05 Gi cyn [id number] 12y+ bivalent booster vax 08/06/22 Recorded [id number] 12y+ bivalent booster vax 12/13/21 Recorded pneumococcal 23-valent vaccine 4 07/29/21 Given SARS-CoV-2 mRNA (ebsbdhp-[id number]-qmkax) vax 06/21/21 Recorded SARS-CoV-2 (COVID-19) mRNA BNT-162b2 [...] Toxoid Vaccine (oldterm) 03/08/00 Given 1Result Comment: [facility]# [id number] 2Result Comment: [12/09/2017] [id number] 3Admin Note: GIVEN IN CL[facility]IC [facility] 4Result Comment: [facility]# [id number] 5Admin Note: [facility] 6Admin Note: [facility] 7Admin Note: GIVEN AT OUTSIDE CLINIC 8Admin Note: per pt rcvd elsewhere Medications amLODIPine 5 mg oral tablet 1 tablet, By Mouth, Daily, # 30 tablet, 5 Refills, Maintenance, 03/14/23 14:05:00 EST, [facility], 157.5, cm, 08/04/22 8:48:00 EDT, Height, 59.5, kg, 06/03/22 14:32:00 EDT, Dry Weight Start Date: 03/14/23 Status: Ordered Aspirin Low Dose 81 mg oral delayed release tablet 1 tablet, By Mouth, Daily, # 30 tablet, 5 Refills, Maintenance, 08/10/23 12:27:00 EDT, [facility], 157.5, cm, 06/22/23 15:03:00 EDT, Height, 59.5, kg, 06/03/22 14:32:00 EDT, Dry Weight Start Date: 08/10/23 Status: Ordered carvedilol 6.25 mg oral tablet 1, tablet, By Mouth, 2 times a day, # 180 tablet, Refills 1, Tot. Refills 1, Maintenance, 07/24/23 15:25:00 EDT, [id number], cm, 06/22/23 15:03:00 EDT, Height, 59.5, kg, 06/03/22 14:32:00 EDT, Dry Weight Start Date: 07/24/23 Status: Ordered Daily Brielle oral tablet 1 tablet, By Mouth, Daily, # 30 tablet, 11 Refills, Maintenance, 02/15/23 12:26:00 EST, [facility] STORE 05184, 30, TAKE 1 TABLET BY MOUTH EVERY DAY, 157.5, cm, 08/04/22 8:48:00 EDT, Height, 59.5, kg, 06/03/22 14:32:00 EDT, Dry Weight Start Date: 02/15/23 Status: Ordered furosemide 40 mg oral tablet 1, tablet, By Mouth, Daily, # 30 tablet, Refills 5, Tot. Refills 5, Maintenance, 03/18/23 7:42:00 EST, [id number]5, cm, 08/04/22 8:48:00 EDT, Height, 59.5, kg, 06/03/22 14:32:00 EDT, Dry Weight Start Date: 03/18/23 Status: Ordered lisinopril 10 mg oral tablet 1, tablet, By Mouth, 2 times a day, # 180 tablet, Refills 3, Maintenance, 01/25/23 11:53:00 EST, Route to Pharmacy Electronically, [facility] STORE 55073, 157.5, cm, 08/04/22 8:48:00 EDT, Height, 59.5, [...] capsule, 3 Refills, Maintenance, 02/11/23 7:48:00 EST, [facility], 157.5, cm, 08/04/22 8:48:00 EDT, Height, 59.5, kg, 06/03/22 14:32:00 EDT, Dry Weight Start Date: 02/11/23 Status: Ordered Vitamin D3 1000 intl units oral capsule 1 capsule, By Mouth, Daily, # 30 capsule, 5 Refills, Maintenance, 03/14/23 14:05:00 EST, [facility] STORE 61112, 157.5, cm, 08/04/22 8:48:00 EDT, Height, 59.5, [...] 4colo 2004 nl, rpt 2013 5MI 2019 66254; no repeat due to age 7restarted HCTZ; will monitor 8holding hctz ;recheck 9Per discharge note 03/05/21: Long-standing schizoaffective disorder, bipolar type. 10Antibody positive 11thought to be medication related by neurology Social History Social History Type Response Smoking Status Never (less than 100 in lifetime) entered on: 12/02/20 Sex Patient Care team information Care Team Personnel Name: Zabrina Prince RN Position: [facility] RN Member Role: Primary Care Nurse Name: Carley Vazquez RN Position: [facility] RN Member Role: Primary Care Nurse Name: Annia Iniguez NP Position: [facility] Associate Professional Member Role: Primary Care Nurse Name: Garrison Beatty MD Position: [facility] Physician - Primary Care Member Role: PCP Address: Address: [address] [place] [address]- [place] Name: David Knapp MD Position: [facility] Renal MD Member Role: Lifetime Consulting Physician Address: Address: [address] [place] [address] [address] [facility] [place] [address]- [place] Name: Melissa Ugarte RN Position: [facility] RN Member Role: Primary Care Nurse Care Team Related Persons Name: LIVIA MAXWELL Address: home [address] [place] [address] Name: DINA MAXWELL Address: home [address] [place] [address]
--- OUTSIDE RECORDS SUMMARY | 2024-01-05 22:54 | XMS_ITS | Continuity of Care Document ---
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 Name Role Phone Jaci GOLD, Garrison Swan Primary Care Physician [facility] 10[facility]21 - 11/02/21 [facility] Adult [address] [place] [address]- Allergies, Adverse Reactions, Alerts Substance Reaction Severity Status cephalexin Active nitrofurantoin Active sulfADIAZINE Ciprofloxacin Active predniSONE SEVERE H/A Active valsartan 1 Active Macrobid Active statins MYALGIAS Active 1dizziness Immunizations Given and Recorded Vaccine Date Status Refusal Reason pneumococcal 23-valent vaccine 1 07/29/21 Given SARS-CoV-2 mRNA (loinlxf-kuks-wrpko) vax 06/21/21 Recorded influenza virus vaccine, inactivated 12/16/20 Cachorro rded [...] virus vaccine, inactivated 5 12/30/05 Gi cyn SARS-CoV-2 (COVID-19) mRNA BNT-162b2 vac 11/28/20 Recorded SARS-CoV-2 (COVID-19) mRNA BNT-162b2 vac 04/02/20 Recorded SARS-CoV-2 (COVID-19) mRNA BNT-162b2 vac 03/12/20 Recorded Influenza Virus Vaccine (oldterm) 10/21/19 Recorde d Influenza Virus Vaccine (oldterm) 11/21/18 Recorde d tetanus-diphtheria toxoids (Td) 12/02/15 Given pneumococcal 13-valent vaccine 05/30/14 Given FluLaval (oldterm) 6 12/04/10 Given FluLaval (oldterm) 7 12/27/09 Given Pneumococcal Vacc (oldterm) 06/03/10 Given Tet/Diphth/Acel, Pertussis (oldterm) 09/26/09 Give n Zostavax (oldterm) 06/06/09 Given influ virus vac, H1N1, inactive(oldterm) 8 03/18/09 Given influ virus vac, H1N1, inactive(oldterm) 9 03/18/09 Given Tetanus Toxoid Vaccine (oldterm) 03/08/00 Given 1Result Comment: [facility]# [id number] 2Result Comment: [12/09/2017] [id number] 3Result Comment: [04/15/2015 Uncharted] Pt had influenza vaccine 12/12/15- 4Admin Note: PT had the flu shot done at [facility] 5Admin Note: GIVEN IN CLINIC [facility] 6Admin Note: [employer] [facility] 7Admin Note: [employer] [facility] 8Admin Note: GIVEN AT OUTSIDE CLINIC 9Admin Note: per pt rcvd elsewhere Medications amLODIPine 5 mg oral tablet 5 mg, 1, tablet, By Mouth, Daily, # 30 tablet, Refills 11, Tot. Refills 11, Maintenance, 03/12/21 16:13:00 EST, Route to Pharmacy Electronically, [facility]/pharmacy #[id number], Partial fill upon patient requestif the prescription is for a schedule II opioid symone... Start Date: 03/12/21 Status: Ordered aspirin 81 mg oral capsule 1 capsule = 81 mg, By Mouth, Daily, 0 Refills, Maintenance, 12/06/20 14:03:00 EDT, Partial fill upon patient request if the prescription is for a schedule II opioid drug. Start Date: 12/06/20 Status: Ordered Augmentin 875 mg-125 mg oral tablet 1 tablet, By Mouth, Every 8 hours, for 10 days, # 30 tablet, 0 Refills, Acute 11/05/21 12:11:00 EDT, 10/26/21 12:11:00 EDT, Tablet, [facility]/pharmacy #[id number], Partial fill upon patient request if the prescription is for a schedule II opioid drug., 158, cm, 0... Start Date: 10/26/21 Stop Date: 11/05/21 Status: Ordered carvedilol 6.25 mg oral tablet 6.25 mg, 1, tablet, By Mouth, 2 times a day, # 60 tablet, Refills 5, Tot. Refills 5, Maintenance, 10/13/21 14:45:00 EDT, [id number] Partial fill upon patient request if the prescription is for a schedule II o... Start Date: 10/13/21 Status: Ordered clopidogrel 75 mg oral tablet 1, tablet, By Mouth, Daily, # 30 tablet, Refills 11, Tot. Refills 11, Maintenance, 03/12/21 16:09:00 EST, [id number], 157, cm, 03/12/21 13:26:00 EST, Height,60, kg, 01/20/21 16:03:00 EST, Dry Weight Start Date: 03/12/21 Status: Ordered donepezil 5 mg oral tablet See Instructions, TAKE 1 TABLET BY MOUTH AT BEDTIME, # 30 tablet, Refills 2, Instructions Replace Required Details, Route to Pharmacy Electronically, [facility] STORE 40340, 158, cm, 10/02/21 9:27:00 EDT, Height, 63, kg, 07/28/21 1:38:00 EDT, Dry Weight Start Date: 10/16/21 Status: Ordered Lasix 40 mg oral tablet 40 mg, 1, tablet, By Mouth, Daily, # 30 tablet, Refills 11, Tot. Refills 11, Maintenance, 03/12/21 16:08:00 EST, [id number] Partial fill upon patient request if the prescription is for a schedule II opioid dr... Start Date: 03/12/21 Stop Date: 03/07/22 Status: Ordered lisinopril 10 mg oral tablet 10 mg, 1, tablet, By Mouth, 2 times a day, # 60 tablet, Refills 11, Tot. Refills 11, Maintenance, 03/12/21 16:09:00 EST, [facility], [id number], Partial fill upon patient request if the prescription is for a schedule II o... Start Date: 03/12/21 Stop Date: 03/07/22 Status: Ordered magnesium oxide 400 mg oral tablet 1 tablet = 400 mg, By Mouth, Daily, for 30 days, # 30 tablet, 11 Refills, Acute 03/07/22 16:11:00 EST, 03/12/21 16:11:00 EST, Tablet, [facility]/pharmacy #[id number], Partial fill upon patient request if [...] Refills, Maintenance, 03/12/21 16:07:00 EST, ER Capsule, [facility]/pharmacy #[id number], Partial fill upon patient request if [...] Date: 10/02/21 Status: Ordered Problem List Condition Effective Dates [...] , moderate(Confirmed) Active Renal mass, left(Confirmed) Active Schizoaffective disorder, bi polar type(Confirmed) 9 Active Subclinical hypothyroidism(C onfirmed) 10 Active Tremor of unknown origin(Confirmed) 11 03/18/09 Active Abnormal ultrasound of abdomen(Confirmed) Active 1Nonfunctional, noted on serial CT scans. 2colo 2010 adenomatous polyp, repeat 2014 3error with fh colon cancer needs colo 2008 4colo 2003 nl, rpt 2013 5MI 2019 [address]8433; no repeat due to age 7restarted HCTZ; will monitor 8holding hctz ;recheck 9Per discharge note 03/05/21: Long-standing schizoaffective disorder, bipolar type. 10Antibody positive 11thought to be medication related by neurology Social History Social History Type Response Smoking Status Never (less than 100 in lifetime) entered on: 12/02/20 [facility] Sex Care Team Personnel Name: Jaci GOLD, Garrison Swan Address: [address] [place] [address] [place] [address]-
--- OUTSIDE RECORDS SUMMARY | 2024-01-05 22:54 | XMS_ITS | Continuity of Care Document ---
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 Phone Jaci GOLD, Garrison Swan Primary Care Physician [facility]): 04[facility]10[facility]22 - 05/10/22 [facility] Adult [address] [place] [address]- Allergies, Adverse Reactions, Alerts Substance Reaction Severity [...] 23-valent vaccine 6 07/29/21 Given SARS-CoV-2 mRNA (pxeedxq-zzpr-uelgv) vax 06/21/21 Recorded SARS-CoV-2 (COVID-19) mRNA BNT-162b2 [...] Toxoid Vaccine (oldterm) 03/08/00 Given 1Result Comment: [facility]# [id number] 2Result Comment: [12/09/2017] [id number] 3Result Comment: [04/15/2015 Uncharted] Pt had influenza vaccine 12/12/15- 4Admin Note: PT had the flu shot done at [facility] 5Admin Note: GIVEN IN CL[facility]IC [facility] 6Result Comment: [facility]# [id number] 7Admin Note: [facility] [facility] [employer] [facility] 8Admin Note: [employer] [facility] [employer] [facility] 9Admin Note: GIVEN AT OUTSIDE CLINIC 10Admin Note: per pt rcvd elsewhere Medications amLODIPine 5 mg oral tablet 1 tablet, By Mouth, Daily, # 30 tablet, 5 Refills, Maintenance, 04/17/22 19:41:00 EST, [facility] STORE 86351, 158, cm, 02/27/22 13:27:00 EST, Height, 63, kg, 07/28/21 1:38:00 EDT, Dry Weight Start Date: 04/17/22 Status: Ordered aspirin 81 mg oral delayed release tablet 81 mg, 1, tablet, By Mouth, Daily, # 30 tablet, Refills 5, Tot. Refills 5, Maintenance, 03/26/22 11:58:00 EST, Route to Pharmacy Electronically, [facility]/pharmacy #[id number], Partial fill upon patient request if the prescription is for a schedule II opioid drug... Start Date: 03/26/22 Status: Ordered carvedilol 6.25 mg oral tablet 6.25 mg, 1, tablet, By Mouth, 2 times a day, # 180 tablet, Refills 3, Tot. Refills 3, Maintenance, 02/02/22 16:34:00 EST, [id number] Partial fill upon patient request if the prescription is for a schedule II... Start Date: 02/02/22 Status: Ordered clopidogrel 75 mg oral tablet 1, tablet, By Mouth, Daily, # 30 tablet, Refills 5, Tot. Refills 5, Maintenance, 03/26/22 11:55:00 EST, Route to Pharmacy Electronically, [facility]/pharmacy #[id number], 158, cm, 02/27/22 13:27:00 EST, Height, 63, kg, 07/28/21 1:38:00 EDT, Dry Weight Start Date: 03/26/22 Status: Ordered Daily Brielle oral tablet 1 tablet, By Mouth, Daily, # 30 tablet, 11 Refills, Maintenance, 03/18/22 11:57:00 EST, [facility] STORE 90055, 30, TAKE 1 TABLET BY MOUTH EVERY DAY, 158, cm, 02/27/22 13:27:00 EST, Height, 63, kg, :38:00 EDT, Dry Weight Start Date: 03/18/22 Status: Ordered donepezil 5 mg oral tablet See Instructions, TAKE 1 TABLET BY MOUTH AT BEDTIME, # 30 tablet, Refills 5, Tot. Refills 5, 01/23/22 15:56:00 EST, Instructions Replace Required Details, [id number], 158, cm, 01/21/22 13:27:00 EST, Height, 63... Start Date: 01/23/22 Status: Ordered High Potency Vitamin D3 25 mcg (1000 intl units) oral capsule 1 capsule = 25 mcg, By Mouth, Daily, # 30 capsule, 5 Refills, Maintenance, 03/26/22 11:54:00 EST, [facility]/pharmacy #[id number], Partial fill upon patient request if the prescription is for a schedule II opioiddrug., 158, cm, 02/27/22 13:27:00 EST, Height, 63,... Start Date: 03/26/22 Status: Ordered Lasix 40 mg oral tablet 40 mg, 1, tablet, By Mouth, Daily, # 30 tablet, Refills 5, Tot. Refills 5, Maintenance, 03/26/22 11:53:00 EST, Route to Pharmacy Electronically, [facility]/pharmacy #[id number], Partial fill upon patient request if the prescription is for a schedule II opioid drug... Start Date: 03/26/22 Stop Date: 09/22/22 Status: Ordered lisinopril 10 mg oral tablet 10 mg, 1, tablet, By Mouth, 2 times a day, # 180 tablet, Refills 3, Tot. Refills 3, Maintenance, 03/07/22 16:09:00 EST, [facility], [id number], Partial fill upon patientrequest if the prescription is for a schedule II op... Start Date: 03/07/22 Status: Ordered Nature's Bounty Probiotic 1 tablet, By Mouth, Daily, 0 Refills, Maintenance, 08/05/18 18:34:13 EDT Start Date: 08/05/18 Status: Ordered PEG-3350 with Electrolytes (Eqv-NuLYTELY) oral powder for reconstitution See Instructions, as directed, # 1 each, 0 Refills, Maintenance, 05/06/22 12:21:00 EST, [id number], Ok to sub for any gallon prep, as directed, 158, cm, 02/27/22 13:27:00 EST, Height, 63, kg,07/28/21 1:38:00 EDT, Dry Weight Start Date: 05/06/22 Status: Ordered potassium chloride 10 mEq oral capsule, extended release 1 capsule = 10 mEq, By Mouth, Daily, # 90 capsule, 3 Refills, Maintenance, 01/23/22 15:28:00 EST, ER Capsule, [id number], Partial fill upon patient request if the prescription is for a schedule II opioid drug., 158, cm, 01/21/22 13:27:00 EST,... Start Date: 01/23/22 Status: Ordered ZyPREXA 5 mg oral tablet [...] 4colo 2004 nl, rpt 2013 5MI 2019 54706; no repeat due to age 7restarted HCTZ; will monitor 8holding hctz ;recheck 9Per discharge note 03/05/21: Long-standing schizoaffective disorder, bipolar type. 10Antibody positive 11thought to be medication related by neurology Social History Social History Type Response Smoking Status Never (less than 100 in lifetime) entered on: 12/02/20 Sex Patient Care team information Care Team Personnel Name: Carley Vazquez RN Position: [facility] RN Member Role: Primary Care Nurse Name: Annia Iniguez NP Position: [facility] Associate Professional Member Role: Primary Care Nurse Address: Address: [address] [place] [address]- [place] Name: Garrison Beatty MD Position: [facility] Primary Care Physician Member Role: PCP Address: Address: [address] [place] [address]- [place] Name: Ra GOLD, David Position: [facility] Renal MD Member Role: Lifetime Consulting Physician Address: Address: [address] [place] [address] [address] [facility] [place] [address]- [place] Name: Zabrina Reyes RN Position: S RN Member Role: Primary Care Nurse Name: Melissa Ugarte RN Position: S RN Member Role: Primary Care Nurse Care Team Related Persons Name: LIVIA MAXWELL Address: [address] [place] [address] Name: DINA MAXWELL Address: [address] [place] [address]
--- OUTSIDE RECORDS SUMMARY | 2024-01-05 22:54 | XMS_ITS | Continuity of Care Document ---
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 Passenger Conductor Name Role Phone Garrison Beatty MD Primary Care Physician [phone] En[place] [facility] Date(s): 12/16/20 - 01/16/21 [facility] Adult [address] [place] [address]- Attending Physician: Not on Staff, Attending MD Referring Physician: Garrison Beatty MD Allergies, [...] Vaccine (oldterm) 03/08/00 Given 1Result Comment: [12/09/2017] [id number] 2Result Comment: [04/15/2015 Uncharted] Pt had influenza vaccine 12/12/15- 3Admin Note: PT had the flu shot done at [facility] 4Admin Note: GIVEN IN CL[facility]IC [facility] 5Admin Note: [facility] 6Admin Note: [facility] 7Admin Note: GIVEN AT OUTSIDE CLINIC 8Admin [...] Maintenance,08/07/20 13:57:00 EDT, Route to Pharmacy Electronically, [facility]/pharmacy #[id number], Partial fill upon patient request if the prescription is for a schedule II... Start Date: 08/07/20 Stop Date: 08/02/21 Status: Ordered clopidogrel 75 mg oral tablet 1, tablet, By Mouth, Daily, # 30 tablet, Refills 5, Tot. Refills 0, Maintenance, 10/04/20 11:01:00 EDT, Route to Pharmacy Electronically, [facility] STORE 22622, 160, cm, 08/30/20 13:24:00 EDT, Height, 56.5, kg, 07/18/20 15:54:00 EDT, Dry Weight Start Date: 10/04/20 Status: Ordered Lasix 40 mg oral tablet 40 mg, 1, tablet, By Mouth, Daily, # 30 tablet, Refills 11, Tot. Refills 11, Maintenance, 04/29/20 9:22:00 EST, Route to Pharmacy Electronically, [facility]/pharmacy #[id number], Partial fill upon patient requestif the prescription is for a schedule II opioid symone... Start Date: 04/29/20 Stop Date: 04/24/21 Status: Ordered lisinopril 2.5 mg oral tablet 2.5 mg, 1, tablet, By Mouth, Daily, # 30 tablet, Refills 11, Tot. Refills 11, Maintenance, 10/25/2111:27:00 EDT, Route to Pharmacy Electronically, [facility]/pharmacy #[id number], Partial fill upon patient [...] 4colo 2003 nl, rpt 2013 5MI 2019 56650; no repeat due to age 7restarted HCTZ; will monitor 8holding hctz ;recheck 9Antibody positive 10thought to be medication related by neurology Social History Social History Type Response Smoking Status Never (less than 100 in lifetime) entered on: 12/02/20 Sex
--- OUTSIDE RECORDS SUMMARY | 2024-01-05 22:54 | XMS_ITS | Continuity of Care Document ---
Author Organization [facility] Address [address] [place] [address]- Care Team Providers Care Document Control Manager Name Role Phone Garrison Beatty MD Primary Care Physician [facility] Date[facility]): 01/27/22 - 02/26/22 [facility] Adult [address] [place] [address]- Attending Physician: Garrison Beatty MD Allergies, Adverse Reactions, Alerts Substance Reaction Severity Status cephalexin Active nitrofurantoin Active sulfADIAZINE Ciprofloxacin Active statins MYALGIAS Active predniSONE SEVERE H/A Active valsartan 1 Active Macrobid Active 1dizziness Immunizations Given and [...] 23-valent vaccine 6 07/29/21 Given SARS-CoV-2 mRNA (radupvl-cpiv-slvpy) vax 06/21/21 Recorded SARS-CoV-2 (COVID-19) mRNA BNT-162b2 [...] Toxoid Vaccine (oldterm) 03/08/00 Given 1Result Comment: [facility]# [id number] 2Result Comment: [12/09/2017] [id number] 3Result Comment: [04/15/2015 Uncharted] Pt had influenza vaccine 12/12/15- 4Admin Note: PT had the flu shot done at [facility] Flu clinic 5Admin Note: GIVEN IN CLINIC [facility] 6Result Comment: [facility]# [id number] 7Admin Note: [facility] 8Admin Note: [facility] 9Admin Note: GIVEN AT OUTSIDE CLINIC 10Admin Note: per pt rcvd elsewhere Medications amLODIPine 5 mg oral tablet See Instructions, TAKE 1 TABLET BY MOUTH EVERY DAY, # 30 tablet, 5 Refills, Maintenance, 01/01/22 15:18:00 EDT, [id number], 158, cm, 11/27/21 8:19:00 EDT, Height, 63, [...] 02/02/22 16:34:00 EST, [id number] Partial fill upon patient request if the prescription is for a schedule II... Start Date: 02/02/22 Status: Ordered clopidogrel 75 mg oral tablet 1, tablet, By Mouth, Daily, # 30 tablet, Refills 0, Maintenance, 11/06/21 16:29:00 EDT, Route to Pharmacy Electronically, [facility] STORE [id number], 158, cm, 10/02/21 9:27:00 EDT, Height, 63, kg, 07/28/21 1:38:00 EDT, Dry Weight Start Date: 11/06/21 Status: Ordered donepezil 5 mg oral tablet See Instructions, TAKE 1 TABLET BY MOUTH AT BEDTIME, # 30 tablet, Refills 5, Tot. Refills 5, 01/23/22 15:56:00 EST, Instructions Replace Required Details, [id number], 158, cm, 01/21/22 13:27:00 EST, Height, 63... Start Date: 01/23/22 Status: Ordered Lasix 40 mg oral tablet 40 mg, 1, tablet, By Mouth, Daily, # 30 tablet, Refills 11, Tot. Refills 11, Maintenance, 03/12/21 16:08:00 EST, [id number], Partial fill upon patient request if the prescription is for a schedule II opioid dr... Start Date: 03/12/21 Stop Date: 03/07/22 Status: Ordered lisinopril 10 mg oral tablet 10 mg, 1, tablet, By Mouth, 2 times a day, # 180 tablet, Refills 3, Tot. Refills 3, Maintenance, 03/07/22 16:09:00 EST, [id number], Partial fill upon patientrequest if the prescription is for a schedule II op... Start Date: 03/07/22 Status: Ordered magnesium oxide 400 mg oral tablet 1 tablet = 400 mg, By Mouth, Daily, for 30 days, # 30 tablet, 11 Refills, Acute 03/07/22 16:11:00 EST, 03/12/21 16:11:00 EST, Tablet, [facility]/pharmacy #[id number], Partial fill upon patient request [...] Refills, Maintenance, 01/23/22 15:28:00 EST, ER Capsule, [facility]/pharmacy #[id number], Partial fill upon patient request [...] 4colo 2004 nl, rpt 2013 5MI 2019 [address]75; no repeat due to age 7restarted HCTZ; [...] Nurse Name: Annia Iniguez NP Position: [facility] Associate Professional Member Role: Primary Care Nurse Address: Address: [address] [place] [address]- [place] Name: Garrison Beatty MD Position: [facility] Primary Care Physician Member Role: PCP Address: Address: [address] [place] [address]- [place] Name: David Knapp MD Position: [facility] Renal MD Member Role: Lifetime Consulting Physician Address: Address: [address] [facility] [place] [address]- [place] Name: Zabrina Reyes RN Position: [facility] RN Member Role: Primary Care Nurse Name: Melissa Ugarte RN Position: S RN Member Role: Primary Care Nurse Care Team Related Persons Name: LIVIA MAXWELL Address: [address] [address] Name: DINA MAXWELL Address: [address] [address]
--- OUTSIDE RECORDS SUMMARY | 2024-01-05 22:54 | XMS_ITS | Continuity of Care Document ---
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 Stagecraft Teacher Name Role Phone Jaci GOLD, Garrison Swan Primary Care Physician [phone] [facility]counter [facility] Date[facility]s): 02/06/21 - 03/08/21 [facility] Adult [address] [place] [address]- Allergies, Adverse Reactions, Alerts Substance Reaction Severity Status cephalexin Active nitrofurantoin Active sulfADIAZINE Ciprofloxacin Active predniSONE SEVERE H/A Active valsartan 1 Active Macrobid Active statins MYALGIAS Active 1dizziness Immunizations Given and Recorded Vaccine Date Status Refusal Reason influenza virus vaccine, inactivated 12/16/20 Cachroro rded influenza virus vaccine, inactivated 1 12/08/17 [...] Vaccine (oldterm) 03/08/00 Given 1Result Comment: [12/09/2017] [id number] 2Result Comment: [04/15/2015 Uncharted] Pt had influenza vaccine 12/12/15- 3Admin Note: PT had the flu shot done at [facility] Flu clinic 4Admin Note: GIVEN IN CLINIC [facility] 5Admin Note: Spinal Integration [facility] 6Admin Note: [employer] [facility] 7Admin Note: GIVEN AT OUTSIDE CLINIC 8Admin [...] to Pharmacy Electronically, [facility]/pharmacy #[id number], Partial fill upon patient request if the prescription is for a schedule II... Start Date: 08/07/20 Stop Date: 08/02/21 Status: Ordered clopidogrel 75 mg oral tablet 1, tablet, By Mouth, Daily, # 30 tablet, Refills 5, Tot. Refills 0, Maintenance, 10/04/20 11:01:00 EDT, Route to Pharmacy Electronically, [facility] STORE [id number], 160, cm, 08/30/20 13:24:00 EDT, Height, 56.5, kg, 07/18/20 15:54:00 EDT, Dry Weight Start Date: 10/04/20 Status: Ordered Lasix 40 mg oral tablet 40 mg, 1, tablet, By Mouth, Daily, # 30 tablet, Refills 11, Tot. Refills 11, Maintenance, 04/29/20 9:22:00 EST, [id number] Partial fill upon patient requestif the prescription is for a schedule II opioid symone... Start Date: 04/29/20 Stop Date: 04/24/21 Status: Ordered lisinopril 2.5 mg oral tablet 2.5 mg, 1, tablet, By Mouth, Daily, # 30 tablet, Refills 11, Tot. Refills 11, Maintenance, 10/25/2111:27:00 EDT, [id number] Partial fill upon patient request if [...] 4colo 2003 nl, rpt 2013 5MI 2019 [address]; no repeat due to age 7restarted HCTZ; will monitor 8holding hctz ;recheck 9Antibody positive 10thought to be medication related by neurology Social History Social History Type Response Smoking Status Never (less than 100 in lifetime) entered on: 12/02/20 Sex
--- OUTSIDE RECORDS SUMMARY | 2024-01-05 22:54 | XMS_ITS | Continuity of Care Document ---
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 Automatic Name Role Phone Garrison Beatty MD Primary Care Physician Encounter [facility] Date(s): 07/27/21 - 07/28/[address] [address]- Discharge Disposition: A-D/C Walkout Attending Physician: Addie Bush MD Admitting Physician: Addie Bush MD Referring Physician: Not on Staff, Referring MD Allergies, Adverse Reactions, Alerts Substance Reaction Severity Status cephalexin Active nitrofurantoin Active statins MYALGIAS Active sulfADIAZINE Ciprofloxacin Active [...] Vaccine (oldterm) 03/08/00 Given 1Result Comment: [12/09/2017] [id number] 2Result Comment: [04/15/2015 Uncharted] Pt had influenza vaccine 12/12/15- 3Admin Note: PT had the flu shot done at [facility] 4Admin Note: GIVEN IN CL[facility]IC [facility] 5Admin Note: [email or web address] [facility] 6Admin Note: [employer] [facility] 7Admin Note: GIVEN AT OUTSIDE CLINIC 8Admin Note: per pt rcvd elsewhere Medications amLODIPine 5 mg oral tablet 5 mg, 1, tablet, By Mouth, Daily, # 30 tablet, Refills 11, Tot. Refills 11, Maintenance, 03/12/21 16:13:00 EST, Route to Pharmacy Electronically, [facility]/pharmacy #[id number], Partial fill upon patient requestif the prescription is for a schedule II opioid symone... Start Date: 03/12/21 Status: Ordered Aricept 5 mg oral tablet 5 mg, 1, tablet, By Mouth, Daily at bedtime, # 30 tablet, Refills 11, Tot. Refills 11, Maintenance,03/12/21 16:10:00 EST, [facility] [...] 06/26/21 10:43:00 EDT, Route to Pharmacy Electronically, [facility]/pharmacy #[id number], Partialfill upon patient request if the prescription is fo... Start Date: 06/26/21 Status: Ordered clopidogrel 75 mg oral tablet 1, tablet, By Mouth, Daily, # 30 tablet, Refills 11, Tot. Refills 11, Maintenance, 03/12/21 16:09:00 EST, Route to Pharmacy Electronically, [facility]/pharmacy #[id number], 157, cm, 03/12/21 13:26:00 EST, Height,60, kg, 01/20/21 16:03:00 EST, Dry Weight Start Date: 03/12/21 Status: Ordered Lasix 40 mg oral tablet 40 mg, 1, tablet, By Mouth, Daily, # 30 tablet, Refills 11, Tot. Refills 11, Maintenance, 03/12/21 16:08:00 EST, Route to Pharmacy Electronically, [facility]/pharmacy #[id number], Partial fill upon patient request if the prescription is for a schedule II opioid dr... Start Date: 03/12/21 Stop Date: 03/07/22 Status: Ordered lisinopril 10 mg oral tablet 10 mg, 1, tablet, By Mouth, 2 times a day, # 60 tablet, Refills 11, Tot. Refills 11, Maintenance, 03/12/21 16:09:00 EST, Route to Pharmacy Electronically, [facility]/pharmacy #[id number], Partial fill upon patient request if the prescription is for a schedule II o... Start Date: 03/12/21 Stop Date: 03/07/22 Status: Ordered magnesium oxide 400 mg oral tablet 1 tablet = 400 mg, By Mouth, Daily, for 30 days, # 30 tablet, 11 Refills, Acute 03/07/22 16:11:00 EST, 03/12/21 16:11:00 EST, Tablet, [facility]/pharmacy #[id number], Partial fill [...] Refills, Maintenance, 03/12/21 16:07:00 EST, ER Capsule, [facility]/pharmacy #[id number], Partial fill upon [...] 4colo 2004 nl, rpt 2013 5MI 2019 [address]; no repeat due to age 7restarted HCTZ; will monitor 8holding hctz ;recheck 9Antibody positive 10thought to be medication related by neurology Results Radiology Reports * Exam Date Time Procedure Performing Provider Status 07/27/21 9:30 PM Chest 2 Views Frontal and Lat Agustin Quinn; Auth (Verified) Notes: (Chest 2 Views Frontal and Lat) Reason For Exam: Chest Pain;Other: RESULT: Chest 2 Views Frontal and Lat Chest 2 Views Frontal and Lat Hx of Present Illness: Pt c o palpitations, SOB, tremors x 1.5 weeks after stopping olanzepine, stsworse last evening.; Reason: Other:; Chest Pain; Clinical Question(s): Other: COMPARISON: 01/20/2021. FINDINGS: LINES AND TUBES: None. LUNGS AND PLEURA: Clear lungs. Normal pulmonary vascularity. No pleural effusion. No pneumothorax. HEART, MEDIASTINUM AND CHARLIE: Heart is normal in size. Normal upper mediastinal and hilar contour. Mild calcification along the aortic arch. 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 BONES AND SOFT TISSUES: No acute abnormality. Multiple sternal wires. There is multilevel degenerative endplate spurring. IMPRESSION: No acute abnormality. WSN: [id number] Ordering Physician: Scott Arnold Dictated By: Barby Montano MD Dictated Date/Time: 07/27/21 10:03 p Reviewed By: Barby Montano MD Signed By: Barby Montano MD Signed Date/Time: 07/27/21 10:03 pm Transcribed By: [email or web address] Transcribed Date/Time: 07/27/21 10:01 pm Vital Signs Most recent to oldest [Reference Range]: 1 2 3 Height 158 cm (07/28/21 1:38 AM) 158 cm (07/27/21 8:29 PM) Weight 63 kg (07/28/21 1:38 AM) 63 kg (07/27/21 8:29 PM) Oxygen Saturation [94-100 %] 100 % (07/28/21 5:19 PM) 100 % (07/28/21 2:41 PM) 99 % (07/28/21 11:53 AM) Pulse Rate [55-90 bpm] 81 bpm (07/28/21 5:19 PM) 80 bpm (07/28/21 2:41 PM) 66 bpm (07/28/21 11:53 AM) Blood Pressure [90-138/55-84 mm Hg] 163/106mm Hg *H* (07/28/21 5:19 PM) 175/94mm Hg *H* (07/28/21 2:41 PM) 170/81mm Hg *H* (07/28/21 11:53 AM) Respiratory Rate [16-30 br/min] 18 br/min (07/28/21 2:41 PM) 18 br/min (07/28/21 9:30 AM) 18 br/min (07/27/21 9:55 PM) Temperature [96.8-100.4 DegF] 98.0 DegF (07/28/21 5:19 PM) 98.1 DegF (07/28/21 2:41 PM) 98.0 DegF (07/28/21 11:53 AM) Mode of Delivery (Oxygen) Room air (07/28/21 5:19 PM) Room air (07/28/21 11:53 AM) Room air (07/28/21 7:26 AM) Blood pressure sites Arm, right (07/28/21 5:19 PM) Arm, right (07/28/21 2:41 PM) Arm, right (07/28/21 11:53 AM) Temperature Route Oral (07/28/21 5:19 PM) Oral (07/28/21 2:41 PM) Oral (07/28/21 11:53 AM) Dry Weight 63 kg (07/28/21 1:38 AM) 63 kg (07/27/21 8:29 PM) Weight Obtained Via Patient/family state d (07/27/21 8:29 PM) Dry Weight Obtained Via Patient/family s tated (07/27/21 8:29 PM) Social History Social History Type Response Smoking Status Never (less than 100 in lifetime) entered on: 12/02/20 Sex
--- OUTSIDE RECORDS SUMMARY | 2024-01-05 22:54 | XMS_ITS | Continuity of Care Document ---
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 5Admin Note: [email or web address] [facility] 6Admin Note: Stop Being [employer] [facility] 7Admin Note: GIVEN AT OUTSIDE CLINIC 8Admin Note: per pt rcvd elsewhere Medications carvedilol 3.125 mg oral tablet See Instructions, TAKE 1 TABLET BY MOUTH TWICE A DAY, # 60 tablet, Refills 11, Tot. Refills 11, Maintenance, Instructions Replace Required Details, Route to Pharmacy Electronically, [facility] STORE [id number], 160, cm, 07/05/20 7:47:00 EDT, Height, 62, kg, 02/26... Start Date: 07/05/20 Status: Ordered furosemide 20 mg oral tablet 1, capsule, By Mouth, Once, # 7 tablet, Refills 0, Tot. Refills 0, Soft Stop, 07/10/20 13:37:00 EDT, Route to Pharmacy Electronically, [facility]/pharmacy #[id number], Partial fill upon patient request if the prescription is for a schedule II opioid drug., 160, cm... Start Date: 07/10/20 Status: Ordered Lasix 40 mg oral tablet 40 mg, 1, tablet, By Mouth, Daily, # 30 tablet, Refills 11, Tot. Refills 11, Maintenance, 04/29/20 9:22:00 EST, Route to Pharmacy Electronically, [facility]/pharmacy #[id number], Partial fill upon [...] 03/20/20 10:44:00 EST, Route to Pharmacy Electronically, [facility]/pharmacy #[id number], Partial fill upon patient request if the prescription is for a schedule II opioid drug... Start Date: 03/20/20 Status: Ordered potassium chloride 10 mEq oral tablet, extended release 2 tablet = 20 mEq, By Mouth, Daily in AM, # 60 tablet, 5 Refills, Maintenance, 04/29/20 9:23:00 EST, ER Tablet, [facility]/pharmacy #[id number], Partial fill upon patient request if the prescription is for a schedule II opioid drug., 160, cm, 04/29/20 8:53:00 EST,... Start Date: 04/29/20 Status: Ordered valsartan 80 mg oral tablet 40 mg, 0.5, tablet, By Mouth, 2 times a day, # 90 tablet, Refills 3, Tot. Refills 3, Maintenance, 07/10/20 16:10:00 EDT, Route to Pharmacy Electronically, [facility]/pharmacy #[id number], Partial fill upon [...] 4colo 2004 nl, rpt 2013 5MI 2019 [address]; no repeat due to age 7restarted HCTZ; will monitor 8holding hctz ;recheck 9Antibody positive 10thought to be medication related by neurology Social History Social History Type Response Smoking Status Never smoker; Tobacc o user in household: No entered on: 07/05/14 Sex
--- OUTSIDE RECORDS SUMMARY | 2024-01-05 22:54 | XMS_ITS | Continuity of Care Document ---
Author Organization [facility] Address [address] [place] [address]- Care Team Providers Care Intake Assessor Name Role Phone Jaci GOLD, Garrison Swan Primary Care Physician [facility] Date[facility]s): 02/06/21 - 03/08/21 [facility] Adult [address] [place] [address]- Allergies, Adverse Reactions, Alerts Substance Reaction Severity [...] Vaccine (oldterm) 03/08/00 Given 1Result Comment: [12/09/2017] [id number] 2Result Comment: [04/15/2015 Uncharted] Pt had influenza vaccine 12/12/15- 3Admin Note: PT had the flu shot done at [facility] Flu clinic 4Admin Note: GIVEN IN CL[facility]IC [facility] 5Admin Note: [employer] [facility] 6Admin Note: [employer] [facility] 7Admin Note: GIVEN AT OUTSIDE [...] Maintenance,08/07/20 13:57:00 EDT, Route to Pharmacy Electronically, [facility]/pharmacy #[id number], Partial fill upon patient request if the prescription is for a schedule II... Start Date: 08/07/20 Stop Date: 08/02/21 Status: Ordered clopidogrel 75 mg oral tablet 1, tablet, By Mouth, Daily, # 30 tablet, Refills 5, Tot. Refills 0, Maintenance, 10/04/20 11:01:00 EDT, Route to Pharmacy Electronically, [facility] STORE 86261, 160, cm, 08/30/20 13:24:00 EDT, Height, 56.5, kg, 07/18/20 15:54:00 EDT, Dry Weight Start Date: 10/04/20 Status: Ordered Lasix 40 mg oral tablet 40 mg, 1, tablet, By Mouth, Daily, # 30 tablet, Refills 11, Tot. Refills 11, Maintenance, 04/29/20 9:22:00 EST, [id number] Partial fill upon patient requestif the prescription is for a schedule II opioid symone... Start Date: 04/29/20 Stop Date: 04/24/21 Status: Ordered lisinopril 2.5 mg oral tablet 2.5 mg, 1, tablet, By Mouth, Daily, # 30 tablet, Refills 11, Tot. Refills 11, Maintenance, 10/25/2111:27:00 EDT, [id number], [facility] fill upon patient request [...] 4colo 2003 nl, rpt 2013 5MI 2019 [address]; no repeat due to age 7restarted HCTZ; will monitor 8holding hctz ;recheck 9Antibody positive 10thought to be medication related by neurology Social History Social History Type Response Smoking Status Never (less than 100 in lifetime) entered on: 12/02/20 Sex
--- OUTSIDE RECORDS SUMMARY | 2024-01-05 22:54 | XMS_ITS | Continuity of Care Document ---
Author Organization [facility] Address [address] [place] [address]- Care Team Providers Care Skein Drier Name Role Phone Garrison Beatty MD Primary Care Physician [facility]s): 06[facility]10[facility]20 - 07/10/20 [facility] [address] [place] [address]- Allergies, Adverse Reactions, Alerts Substance Reaction Severity [...] Vaccine (oldterm) 03/08/00 Given 1Result Comment: [12/09/2017] [address]-60 2Result Comment: [04/15/2015 Uncharted] Pt had influenza vaccine 12/12/15- 3Admin Note: PT had the flu shot done at [facility] Flu clinic 4Admin Note: GIVEN IN CLINIC [facility] 5Admin Note: [employer] [facility] 6Admin Note: [employer] [facility] 7Admin Note: GIVEN AT OUTSIDE CLINIC 8Admin Note: per pt rcvd elsewhere Medications carvedilol 3.125 mg oral tablet See Instructions, TAKE 1 TABLET BY MOUTH TWICE A DAY, # 60 tablet, Refills 11, Tot. Refills 11, Maintenance, Instructions Replace Required Details, Route to Pharmacy Electronically, [facility] 15025, 160, cm, 07/05/20 7:47:00 EDT, Height, 62, kg, 02/26... Start Date: 07/05/20 Status: Ordered furosemide 20 mg oral tablet 1, capsule, By Mouth, Once, # 7 tablet, Refills 0, Tot. Refills 0, Soft Stop, 07/10/20 13:37:00 EDT, [facility] Refills, Maintenance, 04/29/20 9:23:00 EST, ER Tablet, [facility]/pharmacy #[id number], Partial fill upon patient request if the prescription is for a schedule II opioid drug., 160, cm, 04/29/20 8:53:00 EST,... Start Date: 04/29/20 Status: Ordered valsartan 80 mg oral tablet 40 mg, 0.5, tablet, By Mouth, 2 times a day, # 90 tablet, Refills 3, Tot. Refills 3, Maintenance, 07/10/20 16:10:00 EDT, [facility] 4colo 2004 nl, rpt 2013 5MI 2019 [address]; no repeat due to age 7restarted HCTZ; will monitor 8holding hctz ;recheck 9Antibody positive 10thought to be medication related by neurology Social History Social History Type Response Smoking Status Never smoker; Tobacc o user in household: No entered on: 07/05/14 Sex
--- OUTSIDE RECORDS SUMMARY | 2024-01-05 22:54 | XMS_ITS | Continuity of Care Document ---
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 Name Role Phone Jaci GOLD, Garrison Swan Primary Care Physician [facility] 05[facility]20 - 06/30/20 [facility] Adult [address] [place] [address]- Allergies, Adverse Reactions, Alerts Substance Reaction Severity [...] Vaccine (oldterm) 03/08/00 Given 1Result Comment: [12/09/2017] [id number] 2Result Comment: [04/15/2015 Uncharted] Pt had influenza vaccine 12/12/15- 3Admin Note: PT had the flu shot done at [facility] Flu clinic 4Admin Note: GIVEN IN CL[facility]IC [facility] 5Admin Note: [employer] [facility] 6Admin Note: [facility] 7Admin Note: [...] tablet, Refills 5, Tot. Refills 5, Maintenance, 06/26/20 15:12:00 EDT, Route to Pharmacy Electronically, [facility]/pharmacy #[id number], 160, cm, 05/24/20 14:01:00 EDT, Height, 62, kg, 02/27/20 20:52:00 EST, Dry Weight Start Date: 06/26/20 Status: Ordered Depakote 250 mg oral enteric [...] 04/25/20 10:36:00 EST, [facility] 4colo 2004 nl, rpt 2013 5MI 2019 [address]; no repeat due to age 7restarted HCTZ; will monitor 8holding hctz ;recheck 9Antibody positive 10thought to be medication related by neurology Social History Social History Type Response Smoking Status Never smoker; Tobacc o user in household: No entered on: 07/05/14 Sex
--- OUTSIDE RECORDS SUMMARY | 2024-01-05 22:54 | XMS_ITS | Continuity of Care Document ---
Author Organization [facility] Yon lt Address [address] [place] [address]- Care Team Providers Care Vp Integration Name Role Phone Jaci GOLD, Garrison Swan Primary Care Physician [facility] 12[facility]20 - 01/30/21 [facility] Adult [address] [place] [address]- Allergies, Adverse Reactions, Alerts Substance Reaction Severity [...] Vaccine (oldterm) 03/08/00 Given 1Result Comment: [12/09/2017] [id number] 2Result Comment: [04/15/2015 Uncharted] Pt had influenza vaccine 12/12/15- 3Admin Note: PT had the flu shot done at [facility] Flu clinic 4Admin Note: GIVEN IN CL[facility]IC [facility] 5Admin Note: RELEASEIF [facility] 6Admin Note: [facility] 7Admin Note: GIVEN [...] Maintenance,08/07/20 13:57:00 EDT, Route to Pharmacy Electronically, [facility]/pharmacy #[id number], Partial fill upon patient request if the prescription is for a schedule II... Start Date: 08/07/20 Stop Date: 08/02/21 Status: Ordered clopidogrel 75 mg oral tablet 1, tablet, By Mouth, Daily, # 30 tablet, Refills 5, Tot. Refills 0, Maintenance, 10/04/20 11:01:00 EDT, Route to Pharmacy Electronically, [facility] STORE 70384, 160, cm, 08/30/20 13:24:00 EDT, Height, 56.5, kg, 07/18/20 15:54:00 EDT, Dry Weight Start Date: 10/04/20 Status: Ordered Lasix 40 mg oral tablet 40 mg, 1, tablet, By Mouth, Daily, # 30 tablet, Refills 11, Tot. Refills 11, Maintenance, 04/29/20 9:22:00 EST, [id number] Partial fill upon patient requestif the prescription is for a schedule II opioid symone... Start Date: 04/29/20 Stop Date: 04/24/21 Status: Ordered lisinopril 2.5 mg oral tablet 2.5 mg, 1, tablet, By Mouth, Daily, # 30 tablet, Refills 11, Tot. Refills 11, Maintenance, 10/25/2111:27:00 EDT, [id number], Partial fill upon patient request if [...] 4colo 2003 nl, rpt 2013 5MI 2019 10355; no repeat due to age 7restarted HCTZ; will monitor 8holding hctz ;recheck 9Antibody positive 10thought to be medication related by neurology Social History Social History Type Response Smoking Status Never (less than 100 in lifetime) entered on: 12/02/20 Sex
--- OUTSIDE RECORDS SUMMARY | 2024-01-05 22:54 | XMS_ITS | Continuity of Care Document ---
Author Organization [facility] Yon lt Address [address] [place] [address]- Care Team Providers Care Shuttlecock Assembler Name Role Phone Jaci GOLD, Garrison Swan Primary Care Physician [facility] 04[facility]20 - 05/09/20 [facility] Adult [address] [place] [address]- Allergies, Adverse Reactions, Alerts Substance Reaction Severity [...] Vaccine (oldterm) 03/08/00 Given 1Result Comment: [12/09/2017] [address]-89 2Result Comment: [04/15/2015 Uncharted] Pt had influenza vaccine 12/12/15- 3Admin Note: PT had the flu shot done at [facility] Flu clinic 4Admin Note: GIVEN IN CL[facility]IC [facility] 5Admin Note: [facility] 6Admin Note: [employer] [facility] 7Admin Note: GIVEN AT OUTSIDE CLINIC 8Admin [...] Pharmacy Electronically, [facility] STORE 55568, 160, cm, 04/25/20 9:48:00 EST, Height, 62, [...] to Pharmacy Electronically, [facility]/pharmacy #[id number], Partial fill upon patient requestif the prescription [...] Refills, Maintenance, 04/29/20 9:23:00 EST, ER Tablet, [facility]/pharmacy #[id number], Partial fill [...] 4colo 2003 nl, rpt 2013 5MI 2019 65202; no repeat due to age 7restarted HCTZ; will monitor 8holding hctz ;recheck 9Antibody positive 10thought to be medication related by neurology Social History Social History Type Response Smoking Status Never smoker; Tobacc o user in household: No entered on: 07/05/14 Sex
--- OUTSIDE RECORDS SUMMARY | 2024-01-05 22:54 | XMS_ITS | Continuity of Care Document ---
Author Organization [facility] Yon lt Address [address] [place] [address]- Care Team Providers Care Automatic Spinning Lathe Operator Name Role Phone Jaci GOLD, Garrison Swan Primary Care Physician [phone] [facility]s): 09/01/23 - 10/01/23 [facility] Adult [address] [place] [address]- Allergies, Adverse Reactions, Alerts Substance Reaction Severity Status cephalexin Active nitrofurantoin Active valsartan 1 Active statins MYALGIAS Active sulfADIAZINE Ciprofloxacin Active predniSONE SEVERE H/A Active 1dizziness Immunizations Given and Recorded Vaccine Date Status Refusal Reason RSV vaccine, preF A-preF B, recombinant 03/23/23 R ecorded SARS-CoV-2(COVID-19)mRNA-LNP vac([id number]) 11/26/22 Recorded influenza virus vaccine, inactivated 11/05/22 [...] virus vaccine, inactivated 3 12/30/05 Gi cyn [id number] 12y+ bivalent booster vax 08/06/22 Recorded [id number] 12y+ bivalent booster vax 12/13/21 Recorded pneumococcal 23-valent vaccine 4 07/29/21 Given SARS-CoV-2 mRNA ([id number]) vax 06/21/21 Recorded SARS-CoV-2 (COVID-19) mRNA BNT-162b2 [...] Vaccine (oldterm) 03/08/00 Given 1Result Comment: [facility]# [id number] 2Result Comment: [12/09/2017] [id number] 3Admin Note: GIVEN IN CLINIC [facility] 4Result Comment: [facility]# [id number] 5Admin Note: [facility] 6Admin Note: [facility] 7Admin Note: GIVEN AT OUTSIDE CLINIC 8Admin Note: per pt rcvd elsewhere Medications amLODIPine 5 mg oral tablet 1 tablet, By Mouth, Daily, # 30 tablet, 5 Refills, Maintenance, 08/30/23 14:03:00 EDT, [facility], 157.5, cm, 08/16/23 12:48:00 EDT, Height, 59.5, kg, 06/03/22 14:32:00 EDT, Dry Weight Start Date: 08/30/23 Status: Ordered Aspirin Low Dose 81 mg oral delayed release tablet 1 tablet, By Mouth, Daily, # 30 tablet, 5 Refills, Maintenance, 08/10/23 12:27:00 EDT, [facility], 157.5, cm, 06/22/23 15:03:00 EDT, Height, 59.5, kg, 06/03/22 14:32:00 EDT, Dry Weight Start Date: 08/10/23 Status: Ordered carvedilol 6.25 mg oral tablet 1, tablet, By Mouth, 2 times a day, # 180 tablet, Refills 1, Tot. Refills 1, Maintenance, 07/24/23 15:25:00 EDT, Route to Pharmacy Electronically, [facility]/pharmacy #[id number], 157.5, cm, 06/22/23 15:03:00 EDT, Height, 59.5, kg, 06/03/22 14:32:00 EDT, Dry Weight Start Date: 07/24/23 Status: Ordered Daily Brielle oral tablet 1 tablet, By Mouth, Daily, # 30 tablet, 11 Refills, Maintenance, 02/15/23 12:26:00 EST, [facility] STORE 39698, 30, TAKE 1 TABLET BY MOUTH EVERY DAY, 157.5, cm, 08/04/22 8:48:00 EDT, Height, 59.5, kg, 06/03/22 14:32:00 EDT, Dry Weight Start Date: 02/15/23 Status: Ordered furosemide 40 mg oral tablet 1, tablet, By Mouth, Daily, # 30 tablet, Refills 5, Maintenance, 09/06/23 9:51:00 EDT, Route to Pharmacy Electronically, [facility] STORE 25292, 157.5, cm, 08/16/23 12:48:00 EDT, Height, 59.5, kg, 06/03/22 14:32:00 EDT, Dry Weight Start Date: 09/06/23 Status: Ordered lisinopril 10 mg oral tablet 1, tablet, By Mouth, 2 times a day, # 180 tablet, Refills 3, Maintenance, 01/25/23 11:53:00 EST, Route to Pharmacy Electronically, [facility] STORE 40029, 157.5, cm, 08/04/22 8:48:00 EDT, Height, 59.5, [...] Refills, Maintenance, 02/11/23 7:48:00 EST, [facility], 157.5, cm, 08/04/22 8:48:00 EDT, Height, 59.5, kg, 06/03/22 14:32:00 EDT, Dry Weight Start Date: 02/11/23 Status: Ordered Vitamin D3 1000 intl units oral capsule 1 capsule, By Mouth, Daily, # 30 capsule, 5 Refills, Maintenance, 08/30/23 14:04:00 EDT, [facility], 157.5, cm, 08/16/23 12:48:00 EDT, Height, 59.5, kg, 06/03/22 14:32:00 EDT, Dry Weight Start Date: 08/30/23 Status: Ordered ZyPREXA 5 mg oral tablet [...] 4colo 2004 nl, rpt 2013 5MI 2019 74409; no repeat due to age 7restarted HCTZ; will monitor 8holding hctz ;recheck 9Per discharge note 03/05/21: Long-standing schizoaffective disorder, bipolar type. 10Antibody positive 11thought to be medication related by neurology Social History Social History Type Response Smoking Status Never (less than 100 in lifetime) entered on: 12/02/20 Sex Patient Care team information Care Team Personnel Name: Zabrina Prince RN Position: [facility] ED RN W/OE and Tasks Member Role: Primary Care Nurse Name: Carley Vazquez RN Position: [facility] RN Member Role: Primary Care Nurse Name: Geetha MAYBERRY, Annia Gomes Position: [facility] Associate Professional Member Role: Primary Care Nurse Name: Jaci GOLD, Garrison Swan Position: [facility] Physician - Primary Care Member Role: PCP Address: Address: [address] [place] [address]- [place] Name: David Knapp MD Position: [facility] Renal MD Member Role: Lifetime Consulting Physician Address: Address: [address] [place] [address] [address] [facility], [place] [address]- [place] Name: Torito COONEY, Melissa Position: [facility] RN Member Role: Primary Care Nurse Care Team Related Persons Name: LIVIA MAXWELL Address: home [address] [place] [id number] Name: DINA MAXWELL Address: home [address] [place] [id number]
--- OUTSIDE RECORDS SUMMARY | 2024-01-05 22:54 | XMS_ITS | Continuity of Care Document ---
Author Organization [facility] Address [address] [facility], [address] Floor, [address] [place] [address]- Care Team Providers Care Grade Recorder Name Role Phone Jaci GOLD, Garrison Swan Primary Care Physician [phone] Encounter [facility] Date(s): 08/14/22 - 09/13/22 [facility] [address], [address], [address] [place] [address]- Attending Physician: Renetta Strickland Admitting Physician: AdmtrRenetta Referring Physician: Admtr, Ar8 Allergies, Adverse Reactions, Alerts Substance Reaction Severity Status cephalexin Active nitrofurantoin Active sulfADIAZINE Ciprofloxacin Active predniSONE SEVERE H/A Active valsartan 1 Active statins MYALGIAS Active 1dizziness Immunizations Given and Recorded Vaccine Date Status Refusal Reason [id number] 12y+ bivalent booster vax 12/13/21 Recorded influenza virus vaccine, inactivated 1 11/27/21 Gi [...] 23-valent vaccine 6 07/29/21 Given SARS-CoV-2 mRNA (yhnfvdn-msaf-eufhr) vax 06/21/21 Recorded SARS-CoV-2 (COVID-19) mRNA BNT-162b2 [...] Toxoid Vaccine (oldterm) 03/08/00 Given 1Result Comment: [facility]# [id number] 2Result Comment: [12/09/2017] [id number] 3Result Comment: [04/15/2015 Uncharted] Pt had influenza vaccine 12/12/15- 4Admin Note: PT had the flu shot done at [facility] Flu clinic 5Admin Note: GIVEN IN CLINIC [facility] 6Result Comment: [facility]# [id number] 7Admin Note: [address] [facility] 8Admin Note: [address] [facility] 9Admin Note: GIVEN AT OUTSIDE CLINIC 10Admin Note: per pt rcvd elsewhere Medications amLODIPine 5 mg oral tablet 1 tablet, By Mouth, Daily, # 30 tablet, 5 Refills, Maintenance, 04/17/22 19:41:00 EST, [facility] STORE 61572, 158, cm, 02/27/22 13:27:00 EST, Height, 63, kg, 07/28/21 1:38:00 EDT, Dry Weight Start Date: 04/17/22 Status: Ordered aspirin 81 mg oral delayed release tablet 81 mg, 1, tablet, By Mouth, Daily, # 30 tablet, Refills 5, Tot. Refills 5, Maintenance, 03/26/22 11:58:00 EST, Route to Pharmacy Electronically, [facility]/pharmacy #[id number], Partial fill upon patient request if the prescription is for a schedule II opioid drug... Start Date: 03/26/22 Status: Ordered carvedilol 6.25 mg oral tablet 6.25 mg, 1, tablet, By Mouth, 2 times a day, # 180 tablet, Refills 3, Tot. Refills 3, Maintenance, 02/02/22 16:34:00 EST, [id number] Partial fill upon patient request if the prescription is for a schedule II... Start Date: 02/02/22 Status: Ordered clopidogrel 75 mg oral tablet 1, tablet, By Mouth, Daily, # 30 tablet, Refills 5, Tot. Refills 5, Maintenance, 03/26/22 11:55:00 EST, [id number], 158, cm, 02/27/22 13:27:00 EST, Height, 63, kg, 07/28/21 1:38:00 EDT, Dry Weight Start Date: 03/26/22 Status: Ordered Daily Brielle oral tablet 1 tablet, By Mouth, Daily, # 30 tablet, 11 Refills, Maintenance, 03/18/22 11:57:00 EST, [facility], 30, TAKE 1 TABLET BY MOUTH EVERY DAY, 158, cm, 02/27/22 13:27:00 EST, Height, 63, kg, 221:38:00 EDT, Dry Weight Start Date: 03/18/22 Status: Ordered donepezil 5 mg oral tablet 1, tablet, By Mouth, Daily at bedtime, # 30 tablet, Refills 2, Maintenance, 05/25/22 16:50:00 EDT, Route to Pharmacy Electronically, [facility] STORE 50074, 158, cm, 02/27/22 13:27:00 EST, Height, 63, kg, 07/28/21 1:38:00 EDT, Dry Weight Start Date: 05/25/22 Status: Ordered High Potency Vitamin D3 25 mcg (1000 intl units) oral capsule 1 capsule = 25 mcg, By Mouth, Daily, # 30 capsule, 5 Refills, Maintenance, 03/26/22 11:54:00 EST, [facility]/pharmacy #[id number], Partial fill upon patient request if the prescription is for a schedule II opioiddrug., 158, cm, 02/27/22 13:27:00 EST, Height, 63,... Start Date: 03/26/22 Status: Ordered Lasix 40 mg oral tablet 40 mg, 1, tablet, By Mouth, Daily, # 30 tablet, Refills 5, Tot. Refills 5, Maintenance, 03/26/22 11:53:00 EST, Route to Pharmacy Electronically, [facility]/pharmacy #[id number], Partial fill upon patient request if the prescription is for a schedule II opioid drug... Start Date: 03/26/22 Stop Date: 09/22/22 Status: Ordered lisinopril 10 mg oral tablet 10 mg, 1, tablet, By Mouth, 2 times a day, # 180 tablet, Refills 3, Tot. Refills 3, Maintenance, 03/07/22 16:09:00 EST, Route to Pharmacy Electronically, [facility]/pharmacy #[id number], Partial fill upon patientrequest if the [...] Refills, Maintenance, 01/23/22 15:28:00 EST, ER Capsule, [facility]/pharmacy #[id number], Partial fill upon patient [...] 4colo 2004 nl, rpt 2013 5MI 2019 46667; no repeat due to age 7restarted HCTZ; will monitor 8holding hctz ;recheck 9Per discharge note 03/05/21: Long-standing schizoaffective disorder, bipolar type. 10Antibody positive 11thought to be medication related by neurology Social History Social History Type Response Smoking Status Never (less than 100 in lifetime) entered on: 12/02/20 Sex Patient Care team information Care Team Personnel Name: Carley Vazquez RN Position: [facility] RN Member Role: Primary Care Nurse Name: Annia Iniguez NP Position: [facility] Associate Professional Member Role: Primary Care Nurse Address: Address: [address] [place] [address]- Name: Garrison Beatty MD Position: [facility] Physician - Primary Care Member Role: PCP Address: Address: [address] [place] [address], [place] [address]- [place] Name: Ra GOLD, David Position: [facility] Renal MD Member Role: Lifetime Consulting Physician Address: Address: [address] [facility] [address] [facility] [place] [address]- [place] Name: Zabrina Reyes RN Position: S RN Member Role: Primary Care Nurse Name: Melissa Ugarte RN Position: S RN Member Role: Primary Care Nurse Care Team Related Persons Name: LIVIA MAXWELL Address: [address] [place] [address] Name: DINA MAXWELL Address: [address] [place] [address]
--- OUTSIDE RECORDS SUMMARY | 2024-01-05 22:54 | XMS_ITS | Continuity of Care Document ---
Author Organization [facility] Yon lt Address [address] [place] [address]- Care Team Providers Care Aviation Program Manager Name Role Phone Garrison Beatty MD Primary Care Physician [phone] [facility] Date(s): 03/12/21 - 03/19/21 [facility] Adult [address] [place] [address]- Encounter Diagnosis H/O psychosis(Discharge Diagnosis) - 03/12/21 Benign Essential Hypertension(Discharge Diagnosis) - 03/12/21 Attending Physician: Garrison Beatty MD Allergies, Adverse [...] Vaccine (oldterm) 03/08/00 Given 1Result Comment: [12/09/2017] [id number] 2Result Comment: [04/15/2015 Uncharted] Pt had influenza vaccine 12/12/15- 3Admin Note: PT had the flu shot done at [facility] Flu clinic 4Admin Note: GIVEN IN CLINIC [facility] 5Admin Note: [facility] 6Admin Note: [employer] [facility] 7Admin Note: GIVEN AT OUTSIDE CLINIC 8Admin Note: per pt rcvd elsewhere Medications amLODIPine 5 mg oral tablet 5 mg, 1, tablet, By Mouth, Daily, # 30 tablet, Refills 11, Tot. Refills 11, Maintenance, 03/12/21 16:13:00 EST, Route to Pharmacy Electronically, [facility]/pharmacy #[id number], Partial fill upon patient requestif the prescription is for a schedule II opioid symone... Start Date: 03/12/21 Status: Ordered Aricept 5 mg oral tablet 5 mg, 1, tablet, By Mouth, Daily at bedtime, # 30 tablet, Refills 11, Tot. Refills 11, Maintenance,03/12/21 16:10:00 EST, Route to Pharmacy Electronically, [facility]/pharmacy #[id number], Partial fill upon patient request [...] Maintenance,03/12/21 16:08:00 EST, Route to Pharmacy Electronically, [facility]/pharmacy #7111, Partial fill upon patient request if the prescription is for a schedule II... Start Date: 03/12/21 Status: Ordered clopidogrel 75 mg oral tablet 1, tablet, By Mouth, Daily, # 30 tablet, Refills 11, Tot. Refills 11, Maintenance, 03/12/21 16:09:00 EST, Route to Pharmacy Electronically, [facility]/pharmacy #[id number], 157, cm, 03/12/21 13:26:00 EST, Height,60, kg, 01/20/21 16:03:00 EST, Dry Weight Start Date: 03/12/21 Status: Ordered Lasix 40 mg oral tablet 40 mg, 1, tablet, By Mouth, Daily, # 30 tablet, Refills 11, Tot. Refills 11, Maintenance, 03/12/21 16:08:00 EST, Route to Pharmacy Electronically, [facility]/pharmacy #[id number], Partial fill upon patient request if the prescription is for a schedule II opioid dr... Start Date: 03/12/21 Stop Date: 03/07/22 Status: Ordered lisinopril 10 mg oral tablet 10 mg, 1, tablet, By Mouth, 2 times a day, # 60 tablet, Refills 11, Tot. Refills 11, Maintenance, 03/12/21 16:09:00 EST, Route to Pharmacy Electronically, [facility]/pharmacy #[id number], Partial fill upon patient request if the prescription is for a schedule II o... Start Date: 03/12/21 Stop Date: 03/07/22 Status: Ordered magnesium oxide 400 mg oral tablet 1 tablet = 400 mg, By Mouth, Daily, for 30 days, # 30 tablet, 11 Refills, Acute 03/07/22 16:11:00 EST, 03/12/21 16:11:00 EST, [facility]t, [id number], Partial fill upon patient [...] Refills, Maintenance, 03/12/21 16:07:00 EST, ER Capsule, [facility]/pharmacy #[id number], Partial fill upon patient request if the prescription is for a schedule II opioid drug., 157, cm, 03/12/21 13:26:00 EST,... Start Date: 03/12/21 Status: Ordered RisperDAL 2 mg oral tablet 2 mg, 1, tablet, By Mouth, Daily, # 30 tablet, Refills 0, Maintenance, 03/12/21 16:12:00 EST, Partial fill upon patient request if the prescription is for a schedule II opioid drug. Start Date: 03/12/21 Status: Ordered Vitamin D3 [...] 4colo 2004 nl, rpt 2013 5MI 2019 25865; no repeat due to age 7restarted HCTZ; will monitor 8holding hctz ;recheck 9Antibody positive 10thought to be medication related by neurology Diagnosis Diagnosis Type Effective Dates Health Status Clinical Service Informant H/O psychosis Discharge Diagnosis 03/12/21 Benign Essential Hypertension Discharge Diagnosis 03/12/21 Vital Signs Most recent to oldest [Reference Range]: 1 Height 157 cm (03/12/21 1:26 PM) Social History Social History Type Response Smoking Status Never (less than 100 in lifetime) entered on: 12/02/20 Sex
--- OUTSIDE RECORDS SUMMARY | 2024-01-05 22:55 | XMS_ITS | Continuity of Care Document ---
Author Organization [facility] Yon lt Address [address] [place] [address]- Care Team Providers Care Meeting/Event Planner Name Role Phone Jaci GOLD, Garrison Swan Primary Care Physician [phone] [facility]counter [facility] Date[facility]s): 07[facility]03[facility]20 - 08/02/20 [facility] Adult [address] [place] [address]- Allergies, Adverse Reactions, Alerts Substance Reaction Severity [...] Vaccine (oldterm) 03/08/00 Given 1Result Comment: [12/09/2017] [address]-32 2Result Comment: [04/15/2015 Uncharted] Pt had influenza vaccine 12/12/15- 3Admin Note: PT had the flu shot done at [facility] Flu clinic 4Admin Note: GIVEN IN CLINIC [facility] 5Admin Note: [employer] [facility] 6Admin Note: [facility] 7Admin Note: GIVEN AT OUTSIDE CLINIC 8Admin Note: per pt rcvd elsewhere Medications carvedilol 3.125 mg oral tablet See Instructions, TAKE 1 TABLET BY MOUTH TWICE A DAY, # 60 tablet, Refills 11, Tot. Refills 11, Maintenance, Instructions Replace Required Details, Route to Pharmacy Electronically, [facility] 16[facility], 160, cm, 07/05/20 7:47:00 EDT, Height, 62, kg, 02/26... Start Date: 07/05/20 Status: Ordered dicyclomine 10 mg oral capsule 1 capsule = 10 mg, By Mouth, 4 times a day, # 56 capsule, 0 Refills, Maintenance, 07/24/20 12:45:00EDT, Capsule, [facility]/pharmacy #[id number], Partial fill upon patient request if the prescription is for a schedule II opioid drug., 160, cm, 07/23/20 12:27:00 E... Start Date: 07/24/20 Stop Date: 08/07/20 Status: Ordered Lasix 40 mg oral tablet 40 mg, 1, tablet, By Mouth, Daily, # 30 tablet, Refills 11, Tot. Refills 11, Maintenance, 04/29/20 9:22:00 EST, Route to Pharmacy Electronically, [facility]/pharmacy #7111, Partial fill upon patient requestif the [...] 10:44:00 EST, Route to Pharmacy Electronically, [facility]/pharmacy #[id number], Partial fill upon patient request if the prescription is for a schedule II opioid drug... Start Date: 03/20/20 Status: Ordered potassium chloride 10 mEq oral tablet, extended release 2 tablet = 20 mEq, By Mouth, Daily in AM, # 60 tablet, 5 Refills, Maintenance, 04/29/20 9:23:00 EST, ER Tablet, [facility]/pharmacy #[id number], Partial fill upon patient request if the prescription is for a schedule II opioid drug., 160, cm, 04/29/20 8:53:00 EST,... Start Date: 04/29/20 Status: Ordered sacubitril-valsartan 24 mg-26 mg oral tablet 1 tablet, By Mouth, 2 times a day, Take one tablet by mouth twice daily, # 60 tablet, 6 Refills, Maintenance, 07/23/20 14:14:00 EDT, Tablet, [facility]/pharmacy #7111, replaces valsartan, 1 tablet By Mouth [...] 4colo 2004 nl, rpt 2013 5MI 2019 91093; no repeat due to age 7restarted HCTZ; will monitor 8holding hctz ;recheck 9Antibody positive 10thought to be medication related by neurology Vital Signs Most recent to oldest [Reference Range]: 1 Pulse Rate [55-90 bpm] 72 bpm (07/03/20 3:31 PM) Blood Pressure [90-138/55-84 mm Hg] 138/ 78mm Hg (07/03/20 3:31 PM) Blood pressure sites Leg, left (07/03/20 3:31 PM) Social History Social History Type Response Smoking Status Never smoker; Tobacc o user in household: No entered on: 07/05/14 Sex
--- OUTSIDE RECORDS SUMMARY | 2024-01-05 22:55 | XMS_ITS | Continuity of Care Document ---
Author Organization [facility] Weston Yon lt Address [address] [place] [address]- Care Team Providers Care Line Up Worker Name Role Phone Delvis ALEXANDER, Catie Shelton Primary [facility] Physician [facility]23 - 02/22/23 [facility] Adult [address] [place] [address]- Allergies, Adverse Reactions, Alerts Substance Reaction Severity [...] virus vaccine, inactivated 3 12/30/05 Gi cyn [id number] 12y+ bivalent booster vax 08/06/22 Recorded [id number] 12y+ bivalent booster vax 12/13/21 Recorded pneumococcal 23-valent vaccine 4 07/29/21 Given SARS-CoV-2 mRNA (pnfshyx-hlrh-jbelb) vax 06/21/21 Recorded SARS-CoV-2 (COVID-19) mRNA BNT-162b2 [...] Toxoid Vaccine (oldterm) 03/08/00 Given 1Result Comment: [facility]# [id number] 2Result Comment: [12/09/2017] [id number] 3Admin Note: GIVEN IN CLINIC [facility] 4Result Comment: [facility]# [id number] 5Admin Note: [employer] [place] 6Admin Note: [facility] 7Admin Note: GIVEN AT OUTSIDE CLINIC 8Admin Note: per pt rcvd elsewhere Medications amLODIPine 5 mg oral tablet 1 tablet, By Mouth, Daily, # 30 tablet, 5 Refills, Maintenance, 09/14/22 6:19:00 EDT, [facility] 14[facility], 157.5, cm, 08/04/22 8:48:00 EDT, Height, 59.5, kg, 06/03/22 14:32:00 EDT, Dry Weight Start Date: 09/14/22 Status: Ordered Aspirin Low Dose 81 mg oral delayed release tablet 1 tablet, By Mouth, Daily, # 30 tablet, 5 Refills, Maintenance, 09/14/22 6:19:00 EDT, [facility] 35794, 157.5, cm, 08/04/22 8:48:00 EDT, Height, 59.5, kg, 06/03/22 14:32:00 EDT, Dry Weight Start Date: 09/14/22 Status: Ordered carvedilol 6.25 mg oral tablet 1, tablet, By Mouth, 2 times a day, # 180 tablet, Refills 1, Tot. Refills 1, Maintenance, 01/27/23 20:22:00 EST, [id number].5, cm, 08/04/22 8:48:00 EDT,Height, 59.5, kg, 06/03/22 14:32:00 EDT, Dry Weight Start Date: 01/27/23 Status: Ordered clopidogrel 75 mg oral tablet 1, tablet, By Mouth, Daily, # 30 tablet, Refills 5, Tot. Refills 5, Maintenance, 03/26/22 11:55:00 EST, [id number], 158, cm, 02/27/22 13:27:00 EST, Height, 63, kg, 07/28/21 1:38:00 EDT, Dry Weight Start Date: 03/26/22 Status: Ordered Daily Brielle oral tablet 1 tablet, By Mouth, Daily, # 30 tablet, 11 Refills, Maintenance, 02/15/23 12:26:00 EST, [facility] 39[facility], 30, TAKE 1 TABLET BY MOUTH EVERY DAY, 157.5, cm, 08/04/22 8:48:00 EDT, Height, 59.5, kg, 06/03/22 14:32:00 EDT, Dry Weight Start Date: 02/15/23 Status: Ordered donepezil 5 mg oral tablet 1, tablet, By Mouth, Daily at bedtime, # 30 tablet, Refills 2, Maintenance, 05/25/22 16:50:00 EDT, Route to Pharmacy Electronically, [facility] 110[facility], 158, cm, 02/27/22 13:27:00 EST, Height, 63, kg, 07/28/21 1:38:00 EDT, Dry Weight Start Date: 05/25/22 Status: Ordered furosemide 40 mg oral tablet 1, tablet, By Mouth, Daily, # 30 tablet, Refills 5, Maintenance, 09/14/22 6:19:00 EDT, Route to Pharmacy Electronically, [facility], 157.5, cm, 08/04/22 8:48:00 EDT, Height, 59.5, kg, 06/03/22 14:32:00 EDT, Dry Weight Start Date: 09/14/22 Status: Ordered lisinopril 10 mg oral tablet 1, tablet, By Mouth, 2 times a day, # 180 tablet, Refills 3, Maintenance, 01/25/23 11:53:00 EST, Route to Pharmacy Electronically, [facility] 91452, 157.5, cm, 08/04/22 8:48:00 EDT, Height, 59.5, [...] capsule, 3 Refills, Maintenance, 02/11/23 7:48:00 EST, [facility] 25231, 157.5, cm, 08/04/22 8:48:00 EDT, Height, 59.5, kg, 06/03/22 14:32:00 EDT, Dry Weight Start Date: 02/11/23 Status: Ordered Vitamin D3 1000 intl units oral capsule 1 capsule, By Mouth, Daily, # 30 capsule, 5 Refills, Maintenance, 09/14/22 6:19:00 EDT, [facility], 157.5, cm, 08/04/22 8:48:00 EDT, Height, 59.5, kg, 06/03/22 14:32:00 EDT, Dry Weight Start Date: 09/14/22 Status: Ordered ZyPREXA 5 mg oral tablet [...] 4colo 2004 nl, rpt 2013 5MI 2019 [address]; no repeat due to age 7restarted HCTZ; will monitor 8holding hctz ;recheck 9Per discharge note 03/05/21: Long-standing schizoaffective disorder, bipolar type. 10Antibody positive 11thought to be medication related by neurology Social History Social History Type Response Smoking Status Never (less than 100 in lifetime) entered on: 12/02/20 Sex Patient Care team information Care Team Personnel Name: Carley Vazquez RN Position: [facility] RN Member Role: Primary Care Nurse Name: Annia Iniguez NP Position: [facility] Associate Professional Member Role: Primary Care Nurse Address: Address: [address] [place] [address]- Name: Catie Washington Position: [facility] PCO Associate Professional Member Role: PCP Address: Address: [address] [place] [address]- [place] Name: David Knapp MD Position: [facility] Renal MD Member Role: Lifetime Consulting Physician Address: Address: [address] [place] [address] [address] [facility] [place] [address]- [place] Name: Zabrina Reyes RN Position: S RN Member Role: Primary Care Nurse Name: Melissa Ugarte RN Position: S RN Member Role: Primary Care Nurse Care Team Related Persons Name: LIVIA MAXWELL Address: [address] [place] [address] Name: DINA MAXWELL Address: [address] [place] [address]
--- OUTSIDE RECORDS SUMMARY | 2024-01-05 22:55 | XMS_ITS | Continuity of Care Document ---
Author Organization [facility] Weston Yon lt Address [address] [place] [address]- Care Team Providers Care Health Information Director Name Role Phone Jaci GOLD, Garrison Swan Primary Care Physician [facility] 07[facility]19[facility]23 - 08/18/23 [facility] Adult [address] [place] [address]- Allergies, Adverse Reactions, Alerts Substance Reaction Severity Status cephalexin Active nitrofurantoin Active statins MYALGIAS Active sulfADIAZINE Ciprofloxacin Active predniSONE SEVERE H/A Active valsartan 1 Active 1dizziness Immunizations Given and Recorded Vaccine Date Status Refusal Reason RSV vaccine, preF A-preF B, recombinant 03/23/23 R ecorded SARS-CoV-2(COVID-19)mRNA-LNP vac([id number]) 11/26/22 Recorded influenza virus vaccine, inactivated 11/05/22 [...] virus vaccine, inactivated 3 12/30/05 Gi cyn [id number] 12y+ bivalent booster vax 08/06/22 Recorded [id number] 12y+ bivalent booster vax 12/13/21 Recorded pneumococcal 23-valent vaccine 4 07/29/21 Given SARS-CoV-2 mRNA (jwlvzrf-xfwu-hskxr) vax 06/21/21 Recorded SARS-CoV-2 (COVID-19) mRNA BNT-162b2 [...] Toxoid Vaccine (oldterm) 03/08/00 Given 1Result Comment: [facility]# [id number] 2Result Comment: [12/09/2017] [id number] 3Admin Note: GIVEN IN CLINIC [facility] 4Result Comment: [facility]# [id number] 5Admin Note: [employer] [facility] 6Admin Note: [employer] [facility] 7Admin Note: GIVEN AT OUTSIDE CLINIC 8Admin Note: per pt rcvd elsewhere Medications amLODIPine 5 mg oral tablet 1 tablet, By Mouth, Daily, # 30 tablet, 5 Refills, Maintenance, 03/14/23 14:05:00 EST, [facility] 38029, 157.5, cm, 08/04/22 8:48:00 EDT, Height, 59.5, kg, 06/03/22 14:32:00 EDT, Dry Weight Start Date: 03/14/23 Status: Ordered Aspirin Low Dose 81 mg oral delayed release tablet 1 tablet, By Mouth, Daily, # 30 tablet, 5 Refills, Maintenance, 08/10/23 12:27:00 EDT, [facility], 157.5, cm, 06/22/23 15:03:00 EDT, Height, 59.5, kg, 06/03/22 14:32:00 EDT, Dry Weight Start Date: 08/10/23 Status: Ordered carvedilol 6.25 mg oral tablet 1, tablet, By Mouth, 2 times a day, # 180 tablet, Refills 1, Tot. Refills 1, Maintenance, 07/24/23 15:25:00 EDT, Route to Pharmacy Electronically, [facility]/pharmacy #[id number], 157.5, cm, 06/22/23 15:03:00 EDT, Height, 59.5, kg, 06/03/22 14:32:00 EDT, Dry Weight Start Date: 07/24/23 Status: Ordered Daily Brielle oral tablet 1 tablet, By Mouth, Daily, # 30 tablet, 11 Refills, Maintenance, 02/15/23 12:26:00 EST, [facility] STORE 00527, 30, TAKE 1 TABLET BY MOUTH EVERY DAY, 157.5, cm, 08/04/22 8:48:00 EDT, Height, 59.5, kg, 06/03/22 14:32:00 EDT, Dry Weight Start Date: 02/15/23 Status: Ordered furosemide 40 mg oral tablet 1, tablet, By Mouth, Daily, # 30 tablet, Refills 5, Tot. Refills 5, Maintenance, 03/18/23 7:42:00 EST, [id number] 157.5, cm, 08/04/22 8:48:00 EDT, Height, 59.5, kg, 06/03/22 14:32:00 EDT, Dry Weight Start Date: 03/18/23 Status: Ordered lisinopril 10 mg oral tablet 1, tablet, By Mouth, 2 times a day, # 180 tablet, Refills 3, Maintenance, 01/25/23 11:53:00 EST, Route to Pharmacy Electronically, [facility] STORE 62745, 157.5, cm, 08/04/22 8:48:00 EDT, Height, 59.5, [...] capsule, 3 Refills, Maintenance, 02/11/23 7:48:00 EST, [facility] 74133, 157.5, cm, 08/04/22 8:48:00 EDT, Height, 59.5, kg, 06/03/22 14:32:00 EDT, Dry Weight Start Date: 02/11/23 Status: Ordered Vitamin D3 1000 intl units oral capsule 1 capsule, By Mouth, Daily, # 30 capsule, 5 Refills, Maintenance, 03/14/23 14:05:00 EST, [facility] 55823, 157.5, cm, 08/04/22 8:48:00 EDT, Height, 59.5, [...] 4colo 2004 nl, rpt 2013 5MI 2019 30289; no repeat due to age 7restarted HCTZ; will monitor 8holding hctz ;recheck 9Per discharge note 03/05/21: Long-standing schizoaffective disorder, bipolar type. 10Antibody positive 11thought to be medication related by neurology Social History Social History Type Response Smoking Status Never (less than 100 in lifetime) entered on: 12/02/20 Sex Patient Care team information Care Team Personnel Name: Zabrina Prince RN Position: [facility] RN Member Role: Primary Care Nurse Name: Carley Vazquez RN Position: [facility] RN Member Role: Primary Care Nurse Name: Geetha MAYBERRY, Annia Gomes Position: [facility] Associate Professional Member Role: Primary Care Nurse Name: Garrison Beatty MD Position: [facility] Physician - Primary Care Member Role: PCP Address: Address: [address] [place] [address]- [place] Name: David Knapp MD Position: [facility] Renal MD Member Role: Lifetime Consulting Physician Address: Address: [address] [place] [address] [address] [facility] [place] [address]- [place] Name: Melissa Ugarte RN Position: [facility] RN Member Role: Primary Care Nurse Care Team Related Persons Name: LIVIA MAXWELL Address: home [address] [place] [address] Name: DINA MAXWELL Address: home [address] [place] [address]
--- OUTSIDE RECORDS SUMMARY | 2024-01-05 22:55 | XMS_ITS | Continuity of Care Document ---
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 Role Phone Garrison Beatty MD Primary Care Physician Encounter [facility] Date(s): 06/08/19 - 06/15/19 [facility] Cayden Ontiveros Adult [address] [place] [address]- [place] Encounter Diagnosis UTI symptoms(Discharge Diagnosis) - 06/08/19 Attending Physician: Garrison Beatty MD Allergies, Adverse [...] Vaccine (oldterm) 03/08/00 Given 1Result Comment: [12/09/2017] [id number] 2Result Comment: [04/15/2015 Uncharted] Pt had influenza vaccine 12/12/15- 3Admin Note: PT had the flu shot done at [facility] Flu clinic 4Admin Note: GIVEN IN CLINIC [facility] 5Admin Note: [employer] [facility] 6Admin Note: [employer] [facility] 7Admin Note: GIVEN AT OUTSIDE CLINIC 8Admin Note: per pt rcvd elsewhere Medications aspirin 81 mg oral tablet 1 tablet = 81 mg, By Mouth, Daily, # 90 tablet, 3 Refills, Maintenance, 11/21/18 15:29:59 EDT, Tablet Start Date: 11/21/18 Status: Ordered Bactrim DS 800 mg-160 mg oral tablet See Instructions, By Mouth Every 12 hours, # 6 capsule, 0 Refills, Acute 06/17/19 16:45:00 EDT, 06/14/19 16:32:00 EDT, [facility]/pharmacy #[id number], By Mouth Every 12 hours, 155.5, cm, 02/17/19 10:28:00 EST, Height Start Date: 06/14/19 Stop Date: 06/17/19 Status: Ordered Citrucel Lax = 1,000 mg, [...] 06/02/19 12:46:00 EDT, Route to Pharmacy Electronically, [facility] # [id number], 155.5, cm, 02/17/19 10:28:00 [...] colo 2008 4colo 2003 nl, rpt 2013 [address]; no repeat due to age 6restarted HCTZ; will monitor 7holding hctz ;recheck 8Antibody positive 9thought to be medication related by neurology Diagnosis Diagnosis Type Effective Dates Health Status Cl inical Service Informant UTI symptoms Discharge Diagnosis 06/08/19 Social History Social History Type Response Smoking Status Never smoker; Tobacc o user in household: No entered on: 07/05/14 Sex
--- OUTSIDE RECORDS SUMMARY | 2024-01-05 22:55 | XMS_ITS | Continuity of Care Document ---
Author Organization [facility] Address [address] [address]- Care Team Providers Care Story Analyst Name Role Phone Jaci GOLD, Garrison Swan Primary Care Physician [phone] [facility] 04[facility]20 - 04/09/20 [facility] [address] [place] [address]- Attending Physician: Eduardo GOLD, David Referring Physician: [...] Vaccine (oldterm) 03/08/00 Given 1Result Comment: [12/09/2017] [id number] 2Result Comment: [04/15/2015 Uncharted] Pt had influenza vaccine 12/12/15- 3Admin Note: [facility] 4Admin Note: GIVEN IN CL[facility]IC [facility] 5Admin Note: [facility] [facility] 6Admin Note: [employer] [facility] 7Admin Note: GIVEN AT OUTSIDE CLINIC 8Admin Note: per pt rcvd elsewhere Medications amiodarone 200 mg oral tablet 200 mg, 1, tablet, By Mouth, 2 times a day, # 60 tablet, Refills 5, Tot. Refills 5, Maintenance, 03/20/20 10:44:00 EST, Route to Pharmacy Electronically, [facility]/pharmacy #[id number], Partial fill upon patientrequest if the prescription [...] 04/09/20 7:42:00 EST, Route to Pharmacy Electronically, [facility]/pharmacy #[id number], Partial fill upon patientrequest if the prescription [...] 03/20/20 10:44:00 EST, Route to Pharmacy Electronically, [facility]/pharmacy #[id number], Partial fill upon patient request if the prescription is for a schedule II opioid drug... Start Date: 03/20/20 Status: Ordered potassium chloride 10 mEq oral tablet, extended release 2 tablet = 20 mEq, By Mouth, Daily in AM, # 60 tablet, 5 Refills, Maintenance, 03/20/20 10:44:00 EST, ER Tablet, [facility]/pharmacy #[id number], Partial fill upon patient [...] 4colo 2003 nl, rpt 2013 5MI 2019 [address]; no repeat due to age 7restarted HCTZ; will monitor 8holding hctz ;recheck 9Antibody positive 10thought to be medication related by neurology Social History Social History Type Response Smoking Status Never smoker; Tobacc o user in household: No entered on: 07/05/14 Sex
--- OUTSIDE RECORDS SUMMARY | 2024-01-05 22:55 | XMS_ITS | Continuity of Care Document ---
Author Organization [facility] Weston Yon lt Address [address] [place] [address]- Care Team Providers Care Salesforce Trainer Name Role Phone Jaci GOLD, Garrison Swan Primary Care Physician [facility] 03[facility]18[facility]22 - 04/17/22 [facility] Adult [address] [place] [address]- Allergies, Adverse Reactions, Alerts Substance Reaction Severity [...] 23-valent vaccine 6 07/29/21 Given SARS-CoV-2 mRNA (mlrwutk-drfm-vycys) vax 06/21/21 Recorded SARS-CoV-2 (COVID-19) mRNA BNT-162b2 [...] Toxoid Vaccine (oldterm) 03/08/00 Given 1Result Comment: [facility]# [id number] 2Result Comment: [12/09/2017] [id number] 3Result Comment: [04/15/2015 Uncharted] Pt had influenza vaccine 12/12/15- 4Admin Note: PT had the flu shot done at [facility] Flu clinic 5Admin Note: GIVEN IN CLINIC [facility] 6Result Comment: [facility]# [id number] 7Admin Note: [employer] [facility] 8Admin Note: [employer] [facility] 9Admin Note: GIVEN AT OUTSIDE CLINIC 10Admin Note: per pt rcvd elsewhere Medications amLODIPine 5 mg oral tablet 1 tablet, By Mouth, Daily, # 30 tablet, 5 Refills, Maintenance, 04/17/22 19:41:00 EST, [facility] STORE 03032, 158, cm, 02/27/22 13:27:00 EST, Height, 63, kg, 07/28/21 1:38:00 EDT, Dry Weight Start Date: 04/17/22 Status: Ordered aspirin 81 mg oral delayed release tablet 81 mg, 1, tablet, By Mouth, Daily, # 30 tablet, Refills 5, Tot. Refills 5, Maintenance, 03/26/22 11:58:00 EST, Route to Pharmacy Electronically, [facility]/pharmacy #[id number], Partial fill upon patient request if the prescription is for a schedule II opioid drug... Start Date: 03/26/22 Status: Ordered carvedilol 6.25 mg oral tablet 6.25 mg, 1, tablet, By Mouth, 2 times a day, # 180 tablet, Refills 3, Tot. Refills 3, Maintenance, 02/02/22 16:34:00 EST, [id number] Partial fill upon patient request if the prescription is for a schedule II... Start Date: 02/02/22 Status: Ordered clopidogrel 75 mg oral tablet 1, tablet, By Mouth, Daily, # 30 tablet, Refills 5, Tot. Refills 5, Maintenance, 03/26/22 11:55:00 EST, Route to Pharmacy Electronically, [facility]/pharmacy #[id number], 158, cm, 02/27/22 13:27:00 EST, Height, 63, kg, 07/28/21 1:38:00 EDT, Dry Weight Start Date: 03/26/22 Status: Ordered Daily Brielle oral tablet 1 tablet, By Mouth, Daily, # 30 tablet, 11 Refills, Maintenance, 03/18/22 11:57:00 EST, [facility]ORE 26325, 30, TAKE 1 TABLET BY MOUTH EVERY DAY, 158, cm, 02/27/22 13:27:00 EST, Height, 63, kg, :38:00 EDT, Dry Weight Start Date: 03/18/22 Status: Ordered donepezil 5 mg oral tablet See Instructions, TAKE 1 TABLET BY MOUTH AT BEDTIME, # 30 tablet, Refills 5, Tot. Refills 5, 01/23/22 15:56:00 EST, Instructions Replace Required Details, [id number], cm, 01/21/22 13:27:00 EST, Height, 63... Start Date: 01/23/22 Status: Ordered High Potency Vitamin D3 25 mcg (1000 intl units) oral capsule 1 capsule = 25 mcg, By Mouth, Daily, # 30 capsule, 5 Refills, Maintenance, 03/26/22 11:54:00 EST, [facility]/pharmacy #7111, Partial fill upon patient request if the prescription is for a schedule II opioiddrug., 158, cm, 02/27/22 13:27:00 EST, Height, 63,... Start Date: 03/26/22 Status: Ordered Lasix 40 mg oral tablet 40 mg, 1, tablet, By Mouth, Daily, # 30 tablet, Refills 5, Tot. Refills 5, Maintenance, 03/26/22 11:53:00 EST, Route to Pharmacy Electronically, [facility]/pharmacy #7111, Partial fill upon patient request if the prescription is for a schedule II opioid drug... Start Date: 03/26/22 Stop Date: 09/22/22 Status: Ordered lisinopril 10 mg oral tablet 10 mg, 1, tablet, By Mouth, 2 times a day, # 180 tablet, Refills 3, Tot. Refills 3, Maintenance, 03/07/22 16:09:00 EST, Route to Pharmacy Electronically, [facility]/pharmacy #[id number], Partial fill upon patientrequest if the prescription is for a schedule II op... Start Date: 03/07/22 Status: Ordered Nature's Bounty Probiotic 1 tablet, By Mouth, Daily, 0 Refills, Maintenance, 08/05/18 18:34:13 EDT Start Date: 08/05/18 Status: Ordered pantoprazole 40 mg oral delayed release tablet 1 tablet, By Mouth, Daily, # 30 tablet, 11 Refills, Maintenance, 03/10/22 11:27:00 EST, 158, cm, 02/27/22 13:27:00 EST, Height, 63, kg, 07/28/21 1:38:00 EDT, Dry Weight Start Date: 03/10/22 Status: Ordered potassium chloride 10 mEq oral capsule, extended release 1 capsule = 10 mEq, By Mouth, Daily, # 90 capsule, 3 Refills, Maintenance, 01/23/22 15:28:00 EST, ER Capsule, [facility]/pharmacy #7111, Partial fill upon [...] 4colo 2004 nl, rpt 2013 5MI 2019 98338; no repeat due to age 7restarted HCTZ; will monitor 8holding hctz ;recheck 9Per discharge note 03/05/21: Long-standing schizoaffective disorder, bipolar type. 10Antibody positive 11thought to be medication related by neurology Social History Social History Type Response Smoking Status Never (less than 100 in lifetime) entered on: 12/02/20 Sex Patient Care team information Care Team Personnel Name: Carley Vazquez RN Position: [facility] RN Member Role: Primary Care Nurse Name: Annia Iniguez NP Position: [facility] Associate Professional Member Role: Primary Care Nurse Address: Address: [address] [place] [address]- [place] Name: Garrison Beatty MD Position: [facility] Primary Care Physician Member Role: PCP Address: Address: [address] [place] [address]- [place] Name: David Knapp MD Position: [facility] Renal MD Member Role: Lifetime Consulting Physician Address: Address: [address] [facility] [address] [facility] [place] [address]- Name: Zabrina Reyes RN Position: [facility] RN Member Role: Primary Care Nurse Name: Melissa Ugarte RN Position: [facility] RN Member Role: Primary Care Nurse Care Team Related Persons Name: LIVIA MAXWELL Address: [address] [place] [address] Name: DINA MAXWELL Address: [address] [place] [address]
--- OUTSIDE RECORDS SUMMARY | 2024-01-05 22:55 | XMS_ITS | Continuity of Care Document ---
Author Organization [facility] [place] Address [address] [place] [address]- Care Team Providers Care Impregnator Name Role Phone Jaci GOLD, Garrison Swan Primary Care Physician [phone] [facility] Date[facility] 06/[facility]/21 - 07/02/21 [facility] Adult [address] [place] [address]- Allergies, Adverse Reactions, Alerts Substance Reaction Severity [...] Vaccine (oldterm) 03/08/00 Given 1Result Comment: [12/09/2017] [id number] 2Result Comment: [04/15/2015 Uncharted] Pt had influenza vaccine 12/12/15- 3Admin Note: PT had the flu shot done at [facility] Flu clinic 4Admin Note: GIVEN IN CL[facility]IC [facility] 5Admin Note: [employer] [facility] 6Admin Note: [facility] 7Admin Note: GIVEN AT OUTSIDE CLINIC 8Admin Note: per pt rcvd elsewhere Medications amLODIPine 5 mg oral tablet 5 mg, 1, tablet, By Mouth, Daily, # 30 tablet, Refills 11, Tot. Refills 11, Maintenance, 03/12/21 16:13:00 EST, Route to Pharmacy Electronically, [facility]/pharmacy #[id number], Partial fill upon patient requestif the prescription is for a schedule II opioid symone... Start Date: 03/12/21 Status: Ordered Aricept 5 mg oral tablet 5 mg, 1, tablet, By Mouth, Daily at bedtime, # 30 tablet, Refills 11, Tot. Refills 11, Maintenance,03/12/21 16:10:00 EST, Route to Pharmacy Electronically, [facility]/pharmacy #[id number], Partial fill upon patient [...] 06/26/21 10:43:00 EDT, [id number], Partialfill upon patient request if the prescription is fo... Start Date: 06/26/21 Status: Ordered clopidogrel 75 mg oral tablet 1, tablet, By Mouth, Daily, # 30 tablet, Refills 11, Tot. Refills 11, Maintenance, 03/12/21 16:09:00 EST, [id number], 157, cm, 03/12/21 13:26:00 EST, Height,60, kg, 01/20/21 16:03:00 EST, Dry Weight Start Date: 03/12/21 Status: Ordered Lasix 40 mg oral tablet 40 mg, 1, tablet, By Mouth, Daily, # 30 tablet, Refills 11, Tot. Refills 11, Maintenance, 03/12/21 16:08:00 EST, [id number], Partial fill upon patient request if the prescription is for a schedule II opioid dr... Start Date: 03/12/21 Stop Date: 03/07/22 Status: Ordered lisinopril 10 mg oral tablet 10 mg, 1, tablet, By Mouth, 2 times a day, # 60 tablet, Refills 11, Tot. Refills 11, Maintenance, 03/12/21 16:09:00 EST, [id number], Partial fill upon patient request if the prescription is for a schedule II o... Start Date: 03/12/21 Stop Date: 03/07/22 Status: Ordered magnesium oxide 400 mg oral tablet 1 tablet = 400 mg, By Mouth, Daily, for 30 days, # 30 tablet, 11 Refills, Acute 03/07/22 16:11:00 EST, 03/12/21 16:11:00 EST, [id number] Partial fill upon patient [...] Refills, Maintenance, 03/12/21 16:07:00 EST, ER Capsule, [facility]/pharmacy #[id number], Partial fill upon patient [...] Gallstones(Confirmed) Active Globus sensation(Confirmed) Active H/O psychosis(Confirmed) 1/11/10 Active Hemorrhoids, external(Confirmed) Active History of ST [...] 4colo 2004 nl, rpt 2013 5MI 2019 94872; no repeat due to age 7restarted HCTZ; will monitor 8holding hctz ;recheck 9Antibody positive 10thought to be medication related by neurology Social History Social History Type Response Smoking Status Never (less than 100 in lifetime) entered on: 12/02/20 Sex
--- OUTSIDE RECORDS SUMMARY | 2024-01-05 22:55 | XMS_ITS | Continuity of Care Document ---
Author Organization [facility] Address [address] [place] [address]- Care Team Providers Care Special Ed Assistant Name Role Phone Garrison Beatty MD Primary Care Physician Encounter [facility] Date(s): 08/07/20 - 08/14/20 [facility] Adult [address] [place] [address]- Encounter Diagnosis Anxiety(Discharge Diagnosis) - 08/07/20 Benign Essential Hypertension(Discharge Diagnosis) - 08/07/20 Attending Physician: Garrison Beatty MD Allergies, Adverse [...] Vaccine (oldterm) 03/08/00 Given 1Result Comment: [12/09/2017] [id number] 2Result Comment: [04/15/2015 Uncharted] Pt had influenza vaccine 12/12/15- 3Admin Note: PT had the flu shot done at [facility] Flu clinic 4Admin Note: GIVEN IN CLINIC [facility] 5Admin Note: [employer] [facility] 6Admin Note: [employer] [facility] 7Admin Note: GIVEN AT OUTSIDE CLINIC 8Admin Note: per pt rcvd elsewhere Medications carvedilol 6.25 mg oral tablet 6.25 mg, 1, tablet, By Mouth, 2 times a day, # 60 tablet, Refills 11, Tot. Refills 11, Maintenance,08/07/20 13:57:00 EDT, Route to Pharmacy Electronically, [facility]/pharmacy #[id number], Partial fill upon patient request [...] capsule, 0 Refills, Maintenance, 07/24/20 12:45:00EDT, Capsule, [facility]/pharmacy #[id number], Partial fill upon patient request if the prescription is for a schedule II opioid drug., 160, cm, 07/23/20 12:27:00 E... Start Date: 07/24/20 Stop Date: 08/07/20 Status: Ordered Lasix 40 mg oral tablet 40 mg, 1, tablet, By Mouth, Daily, # 30 tablet, Refills 11, Tot. Refills 11, Maintenance, 04/29/20 9:22:00 EST, Route to Pharmacy Electronically, [facility]/pharmacy #[id number], Partial fill upon patient requestif [...] 10:44:00 EST, Route to Pharmacy Electronically, [facility]/pharmacy #[id number], Partial fill upon patient request [...] 5 Refills, Maintenance, 08/09/20 13:00:00 EDT, Tablet, [facility]/pharmacy #[id number], Partial fill upon patient request [...] 4colo 2004 nl, rpt 2013 5MI 2019 76049; no repeat due to age 7restarted HCTZ; will monitor 8holding hctz ;recheck 9Antibody positive 10thought to be medication related by neurology Diagnosis Diagnosis Type Effective Dates Health Status Clinical Service Informant Anxiety Discharge Diagnosis 08/07/20 Benign Essential Hypertension Discharge Diagnosis 08/07/20 Vital Signs Most recent to oldest [Reference Range]: 1 Height 160 cm (08/07/20 1:30 PM) Weight 57.0 kg (08/07/20 1:30 PM) Oxygen Saturation [94-100 %] 98 % (08/07/20 1:30 PM) Pulse Rate [55-90 bpm] 87 bpm (08/07/20 1:30 PM) Body Mass Index [18.5-24.99] 22.27 (08/07/20 1:30 PM) Blood Pressure [90-138/55-84 mm Hg] 140/ 84mm Hg *H* (08/07/20 1:30 PM) Respiratory Rate [16-30 br/min] 12 br/mi n *L* (08/07/20 1:30 PM) Mode of Delivery (Oxygen) Room air (08/07/20 1:30 PM) Blood pressure sites Arm, left (08/07/20 1:30 PM) Weight Obtained Via Standing scale (08/07/20 1:30 PM) Social History Social History Type Response Smoking Status Never smoker; Tobacc o user in household: No entered on: 07/05/14 Sex
--- OUTSIDE RECORDS SUMMARY | 2024-01-05 22:55 | XMS_ITS | Continuity of Care Document ---
Author Organization [facility] Address Unknown Care Team Providers Care [place] Stayer Machine Operator Name Role Phone Garrison Beatty MD Primary Care Physician Encounter [facility] Date(s): 05/01/21 - 05/31/21 [facility] Allergies, Adverse Reactions, Alerts Substance Reaction Severity [...] Vaccine (oldterm) 03/08/00 Given 1Result Comment: [12/09/2017] [id number] 2Result Comment: [04/15/2015 Uncharted] Pt had influenza vaccine 12/12/15- 3Admin Note: PT had the flu shot done at [facility] Flu clinic 4Admin Note: GIVEN IN [facility]IC [facility] 5Admin Note: [employer] [facility] 6Admin Note: [facility] 7Admin Note: GIVEN AT OUTSIDE CLINIC 8Admin Note: per pt rcvd elsewhere Medications amLODIPine 5 mg oral tablet 5 mg, 1, tablet, By Mouth, Daily, # 30 tablet, Refills 11, Tot. Refills 11, Maintenance, 03/12/21 16:13:00 EST, Route to Pharmacy Electronically, [facility]/pharmacy #[id number], Partial fill upon patient requestif the prescription is for a schedule II opioid symone... Start Date: 03/12/21 Status: Ordered Aricept 5 mg oral tablet 5 mg, 1, tablet, By Mouth, Daily at bedtime, # 30 tablet, Refills 11, Tot. Refills 11, Maintenance,03/12/21 16:10:00 EST, Route to Pharmacy Electronically, [facility]/pharmacy #[id number], Partial fill upon patient request if [...] Maintenance,03/12/21 16:08:00 EST, Route to Pharmacy Electronically, [facility]/pharmacy #[id number], Partial fill upon patient request if the prescription is for a schedule II... Start Date: 03/12/21 Status: Ordered clopidogrel 75 mg oral tablet 1, tablet, By Mouth, Daily, # 30 tablet, Refills 11, Tot. Refills 11, Maintenance, 03/12/21 16:09:00 EST, [id number], [facility], cm, 03/12/21 13:26:00 EST, Height,60, kg, 01/20/21 16:03:00 EST, Dry Weight Start Date: 03/12/21 Status: Ordered Lasix 40 mg oral tablet 40 mg, 1, tablet, By Mouth, Daily, # 30 tablet, Refills 11, Tot. Refills 11, Maintenance, 03/12/21 16:08:00 EST, [id number], Partial fill upon patient request if the prescription is for a schedule II opioid dr... Start Date: 03/12/21 Stop Date: 03/07/22 Status: Ordered lisinopril 10 mg oral tablet 10 mg, 1, tablet, By Mouth, 2 times a day, # 60 tablet, Refills 11, Tot. Refills 11, Maintenance, 03/12/21 16:09:00 EST, [id number] Partial fill upon patient request if the prescription is for a schedule II o... Start Date: 03/12/21 Stop Date: 03/07/22 Status: Ordered magnesium oxide 400 mg oral tablet 1 tablet = 400 mg, By Mouth, Daily, for 30 days, # 30 tablet, 11 Refills, Acute 03/07/22 16:11:00 EST, 03/12/21 16:11:00 EST, Tablet, [facility]/pharmacy #[id number], Partial fill upon patient request if [...] Refills, Maintenance, 03/12/21 16:07:00 EST, ER Capsule, [facility]/pharmacy #[id number], Partial fill upon patient request if [...] 4colo 2004 nl, rpt 2013 5MI 2019 34627; no repeat due to age 7restarted HCTZ; will monitor 8holding hctz ;recheck 9Antibody positive 10thought to be medication related by neurology Social History Social History Type Response Smoking Status Never (less than 100 in lifetime) entered on: 12/02/20 Sex
--- OUTSIDE RECORDS SUMMARY | 2024-01-05 22:55 | XMS_ITS | Continuity of Care Document ---
Author Organization [facility] Address [address] [address]- Care Team Providers Care Consulting Business Developer Name Role Phone Garrison Beatty MD Primary Care Physician [phone] [facility]counter [facility] Date[facility]s): 05/30/20 - 06/29/20 [facility] [address] [place] [address]- Allergies, Adverse Reactions, Alerts Substance Reaction Severity [...] Vaccine (oldterm) 03/08/00 Given 1Result Comment: [12/09/2017] [id number] 2Result Comment: [04/15/2015 Uncharted] Pt had influenza vaccine 12/12/15- 3Admin Note: PT had the flu shot done at [facility] Flu [facility] 4Admin Note: GIVEN IN [facility] 5Admin Note: [employer] [facility] 6Admin Note: [employer] 7Admin Note: GIVEN AT OUTSIDE CLINIC 8Admin [...] 15:12:00 EDT, Route to Pharmacy Electronically, [facility]/pharmacy #[id number], 160, cm, 05/24/20 14:01:00 EDT, Height, [...] 9:22:00 EST, Route to Pharmacy Electronically, [facility]/pharmacy #[id number], Partial fill upon patient requestif the prescription is for a schedule II opioid symone... Start Date: 04/29/20 Stop Date: 04/24/21 Status: Ordered lisinopril 5 mg oral tablet 5 mg, 1, tablet, By Mouth, Daily, # 30 tablet, Refills 3, Tot. Refills 3, Maintenance, 04/25/20 10:36:00 EST, Route to Pharmacy Electronically, [facility]/pharmacy #[id number], Partial fill upon patient request [...] 10:44:00 EST, Route to Pharmacy Electronically, [facility]/pharmacy #[id number], Partial fill upon patient request [...] 4colo 2003 nl, rpt 2013 5MI 2019 16384; no repeat due to age 7restarted HCTZ; will monitor 8holding hctz ;recheck 9Antibody positive 10thought to be medication related by neurology Social History Social History Type Response Smoking Status Never smoker; Tobacc o user in household: No entered on: 07/05/14 Sex
--- OUTSIDE RECORDS SUMMARY | 2024-01-05 22:55 | XMS_ITS | Continuity of Care Document ---
Author Organization [facility] Yon lt Address [address] [place] [address]- Care Team Providers Care Java Programming Professor Name Role Phone Garrison Beatty MD Primary Care Physician [facility] Date[facility]s): 12/06/20 - 12/13/20 [facility] Adult [address] [place] [address]- Attending Physician: Garrison Beatty MD Allergies, Adverse Reactions, Alerts Substance Reaction Severity Status cephalexin Active nitrofurantoin Active sulfADIAZINE Ciprofloxacin Active Macrobid Active statins MYALGIAS Active predniSONE SEVERE H/A Active Immunizations Given and Recorded Vaccine Date Status Refusal Reason SARS-CoV-2 (COVID-19) mRNA BNT-162b2 vac 11/28/20 Recorded [...] Vaccine (oldterm) 03/08/00 Given 1Result Comment: [12/09/2017] [id number] 2Result Comment: [04/15/2015 Uncharted] [facility] 3Admin Note: PT had the flu shot done at [facility] Flu clinic 4Admin Note: GIVEN IN CL[facility]IC [facility] 5Admin Note: [employer] [facility] 6Admin Note: [employer] [facility] 7Admin Note: GIVEN AT OUTSIDE CLINIC 8Admin [...] Maintenance,08/07/20 13:57:00 EDT, Route to Pharmacy Electronically, [facility]/pharmacy #[id number], Partial fill upon patient request if the prescription is for a schedule II... Start Date: 08/07/20 Stop Date: 08/02/21 Status: Ordered clopidogrel 75 mg oral tablet 1, tablet, By Mouth, Daily, # 30 tablet, Refills 5, Tot. Refills 0, Maintenance, 10/04/20 11:01:00 EDT, Route to Pharmacy Electronically, [facility] STORE [id number], 160, cm, 08/30/20 13:24:00 EDT, Height, 56.5, kg, 07/18/20 15:54:00 EDT, Dry Weight Start Date: 10/04/20 Status: Ordered Lasix 40 mg oral tablet 40 mg, 1, tablet, By Mouth, Daily, # 30 tablet, Refills 11, Tot. Refills 11, Maintenance, 04/29/20 9:22:00 EST, Route to Pharmacy Electronically, [facility]/pharmacy #[id number], Partial fill upon patient requestif the prescription is for a schedule II opioid symone... Start Date: 04/29/20 Stop Date: 04/24/21 Status: Ordered lidocaine 1.8% topical film 1 patch, Topically, Daily, for 14 days, leave on up to 12 hours, # 14 each, 0 Refills, Acute 12/16/20 10:45:00 EDT, 12/02/20 10:45:00 EDT, Film, [facility]/pharmacy #[id number], Partial fill upon patient request if the prescription is for a schedule II opioid drug... Start Date: 12/02/20 Stop Date: 12/16/20 Status: Ordered lisinopril 2.5 mg oral tablet 2.5 mg, 1, tablet, By Mouth, Daily, # 30 tablet, Refills 11, Tot. Refills 11, Maintenance, 10/25/2111:27:00 EDT, Route to Pharmacy Electronically, [facility]/pharmacy #[id number], Partial fill upon patient request if [...] Refills, Maintenance, 10/04/20 11:01:00 EDT, 160, cm, 06/25/21 13:24:00 EDT, Height, 56.5, kg, 07/18/20 15:54:00 [...] CT scans. 2colo 2010 adenomatous polyp, repeat 2015 3error with fh colon cancer needs colo 2008 4colo 2004 nl, rpt 2013 5MI 2019 73423; no repeat due to age 7restarted HCTZ; will monitor 8holding hctz ;recheck 9Antibody positive 10thought to be medication related by neurology Vital Signs Most recent to oldest [Reference Range]: 1 2 Height 157.58 cm (12/06/20 1:57 PM) 157.58 cm (12/06/20 1:44 PM) Weight 59.1 kg (12/06/20 1:44 PM) Pulse Rate [55-90 bpm] 72 bpm (12/06/20 1:44 PM) Body Mass Index [18.5-24.99] 23.8 (12/06/20 1:44 PM) Blood Pressure [90-138/55-84 mm Hg] 135/ 77mm Hg (12/06/20 1:57 PM) 146/72mm Hg *H* (12/06/20 1:44 PM) Respiratory Rate [16-30 br/min] 12 br/mi n *L* (12/06/20 1:44 PM) Mode of Delivery (Oxygen) Room air (12/06/20 1:44 PM) Blood pressure sites Arm, left (12/06/20 1:57 PM) Arm, left (12/06/20 1:44 PM) Weight Obtained Via Standing scale (12/06/20 1:44 PM) Social History Social History Type Response Smoking Status Never (less than 100 in lifetime) entered on: 12/02/20 Sex
--- OUTSIDE RECORDS SUMMARY | 2024-01-05 22:55 | XMS_ITS | Continuity of Care Document ---
Author Organization [facility] Address [address] [place] [address]- Care Team Providers Care Mat Worker Name Role Phone Garrison Beatty MD Primary Care Physician [facility] Date(s): 03/14/20 - 04/13/20 [facility] [address] [place] [phone]- Allergies, Adverse Reactions, Alerts Substance Reaction Severity [...] Vaccine (oldterm) 03/08/00 Given 1Result Comment: [12/09/2017] [id number] 2Result Comment: [04/15/2015 Uncharted] Pt had influenza vaccine 12/12/15- 3Admin Note: PT had the flu shot done at [facility] Flu clinic 4Admin Note: GIVEN IN CL[facility]IC [facility] 5Admin Note: [email or web address] [facility] 6Admin Note: [facility] 7Admin Note: GIVEN AT OUTSIDE CLINIC 8Admin Note: per pt rcvd elsewhere Medications amiodarone 200 mg oral tablet 200 mg, 1, tablet, By Mouth, 2 times a day, # 60 tablet, Refills 5, Tot. Refills 5, Maintenance, 03/20/20 10:44:00 EST, Route to Pharmacy Electronically, [facility]/pharmacy #[id number], Partial fill upon patientrequest [...] 04/09/20 7:42:00 EST, Route to Pharmacy Electronically, [facility]/pharmacy #[id number], Partial fill upon patientrequest [...] 10:44:00 EST, Route to Pharmacy Electronically, [facility]/pharmacy #[id number], Partial fill upon patient request if the prescription is for a schedule II opioid drug... Start Date: 03/20/20 Status: Ordered potassium chloride 10 mEq oral tablet, extended release 2 tablet = 20 mEq, By Mouth, Daily in AM, # 60 tablet, 5 Refills, Maintenance, 03/20/20 10:44:00 EST, ER Tablet, [facility]/pharmacy #[id number], Partial fill upon patient [...] 4colo 2004 nl, rpt 2013 5MI 2019 36424; no repeat due to age 7restarted HCTZ; will monitor 8holding hctz ;recheck 9Antibody positive 10thought to be medication related by neurology Social History Social History Type Response Smoking Status Never smoker; Tobacc o user in household: No entered on: 07/05/14 Sex
--- OUTSIDE RECORDS SUMMARY | 2024-01-05 22:55 | XMS_ITS | Continuity of Care Document ---
Author Organization [facility] Yon lt Address [address] [place] [address]- Care Team Providers Care Interactive Art Director Name Role Phone Catie Washington Primary Care Physician [phone] [place] [facility] [place]/23 [facility] [place] [address] [place] [address]- Attending Physician: Catie Washington Referring Physician: Garrison Beatty MD Allergies, Adverse [...] virus vaccine, inactivated 3 12/30/05 Gi cyn [id number] 12y+ bivalent booster vax 08/06/22 Recorded [id number] 12y+ bivalent booster vax 12/13/21 Recorded pneumococcal 23-valent vaccine 4 07/29/21 Given SARS-CoV-2 mRNA (bbnvnbv-cbji-fzvvk) vax 06/21/21 Recorded SARS-CoV-2 (COVID-19) mRNA BNT-162b2 [...] Toxoid Vaccine (oldterm) 03/08/00 Given 1Result Comment: [facility]# [id number] 2Result Comment: [12/09/2017] [id number] 3Admin Note: GIVEN IN CLINIC [facility] 4Result Comment: [facility]# [id number] 5Admin Note: [facility] 6Admin Note: [facility] 7Admin Note: GIVEN AT OUTSIDE CLINIC 8Admin Note: per pt rcvd elsewhere Medications amLODIPine 5 mg oral tablet 1 tablet, By Mouth, Daily, # 30 tablet, 5 Refills, Maintenance, 03/14/23 14:05:00 EST, [facility] STORE 56255, 157.5, cm, 08/04/22 8:48:00 EDT, Height, 59.5, kg, 06/03/22 14:32:00 EDT, Dry Weight Start Date: 03/14/23 Status: Ordered Aspirin Low Dose 81 mg oral delayed release tablet 1 tablet, By Mouth, Daily, # 30 tablet, 5 Refills, Maintenance, 03/18/23 7:42:00 EST, [facility]/pharmacy #7111, 157.5, cm, 08/04/22 8:48:00 EDT, Height, 59.5, kg, 06/03/22 14:32:00 EDT, Dry Weight Start Date: 03/18/23 Status: Ordered carvedilol 6.25 mg oral tablet 1, tablet, By Mouth, 2 times a day, # 180 tablet, Refills 1, Tot. Refills 1, Maintenance, 01/27/23 20:22:00 EST, [facility], cm, 08/04/22 8:48:00 EDT,Height, 59.5, kg, 06/03/22 14:32:00 EDT, Dry Weight Start Date: 01/27/23 Status: Ordered clopidogrel 75 mg oral tablet 1, tablet, By Mouth, Daily, # 30 tablet, Refills 5, Tot. Refills 5, Maintenance, 03/26/22 11:55:00 EST, [id number], cm, 02/27/22 13:27:00 EST, Height, 63, kg, 07/28/21 1:38:00 EDT, Dry Weight Start Date: 03/26/22 Status: Ordered Daily Brielle oral tablet 1 tablet, By Mouth, Daily, # 30 tablet, 11 Refills, Maintenance, 02/15/23 12:26:00 EST, [facility] STORE 29406, 30, TAKE 1 TABLET BY MOUTH EVERY DAY, 157.5, cm, 08/04/22 8:48:00 EDT, Height, 59.5, kg, 06/03/22 14:32:00 EDT, Dry Weight Start Date: 02/15/23 Status: Ordered donepezil 5 mg oral tablet 1, tablet, By Mouth, Daily at bedtime, # 30 tablet, Refills 2, Maintenance, 05/25/22 16:50:00 EDT, Route to Pharmacy Electronically, [facility] STORE 20085, 158, cm, 02/27/22 13:27:00 EST, Height, 63, kg, 07/28/21 1:38:00 EDT, Dry Weight Start Date: 05/25/22 Status: Ordered furosemide 40 mg oral tablet 1, tablet, By Mouth, Daily, # 30 tablet, Refills 5, Tot. Refills 5, Maintenance, 03/18/23 7:42:00 EST, Route to Pharmacy Electronically, [facility]/pharmacy #7111, 157.5, cm, 08/04/22 8:48:00 EDT, Height, 59.5, kg, 06/03/22 14:32:00 EDT, Dry Weight Start Date: 03/18/23 Status: Ordered lisinopril 10 mg oral tablet 1, tablet, By Mouth, 2 times a day, # 180 tablet, Refills 3, Maintenance, 01/25/23 11:53:00 EST, Route to Pharmacy Electronically, [facility] STORE 90818, 157.5, cm, 08/04/22 8:48:00 EDT, Height, 59.5, [...] capsule, 3 Refills, Maintenance, 02/11/23 7:48:00 EST, [facility] STORE 06794, 157.5, cm, 08/04/22 8:48:00 EDT, Height, 59.5, kg, 06/03/22 14:32:00 EDT, Dry Weight Start Date: 02/11/23 Status: Ordered Vitamin D3 1000 intl units oral capsule 1 capsule, By Mouth, Daily, # 30 capsule, 5 Refills, Maintenance, 03/14/23 14:05:00 EST, [facility] STORE 47822, 157.5, cm, 08/04/22 8:48:00 EDT, Height, 59.5, [...] 4colo 2004 nl, rpt 2013 5MI 2019 [address]5360; no repeat due to age 7restarted HCTZ; will monitor 8holding hctz ;recheck 9Per discharge note 03/05/21: Long-standing schizoaffective disorder, bipolar type. 10Antibody positive 11thought to be medication related by neurology Social History Social History Type Response Smoking Status Never (less than 100 in lifetime) entered on: 12/02/20 Sex Patient Care team information Care Team Personnel Name: Carley Vazquez RN Position: [facility] RN Member Role: Primary Care Nurse Name: Geetha MAYBERRY, Annia Gomes Position: [facility] Associate Professional Member Role: Primary Care Nurse Address: Address: [address] [place] [address] Name: Catie Washington Position: [facility] PCO Associate Professional Member Role: PCP Address: Address: [address] [place] [address]- [place] Name: David Knapp MD Position: [facility] Renal MD Member Role: Lifetime Consulting Physician Address: Address: [address] [facility] [place] [address]- [place] Name: Zabrina Reyes RN Position: [facility] RN Member Role: Primary Care Nurse Name: Melissa Ugarte RN Position: [facility] RN Member Role: Primary Care Nurse Care Team Related Persons Name: LIVIA MAXWELL Address: [address] [place] [address] Name: DINA MAXWELL Address: home [address] [place] [address]
--- OUTSIDE RECORDS SUMMARY | 2024-01-05 22:55 | XMS_ITS | Continuity of Care Document ---
Author Organization [facility] ter Address [address] [place] [address]- Care Team Providers Care Tobacco Classer Name Role Phone Garrison Beatty MD Primary Care Physician [facility]counter [facility] Date(s): 03/24/19 - 03/31/[address] [address]- [facility] Attending Physician: Not on Staff, Attending MD Allergies, Adverse Reactions, Alerts Substance Reaction [...] Vaccine (oldterm) 03/08/00 Given 1Result Comment: [12/09/2017] [id number] 2Result Comment: [04/15/2015 Uncharted] Pt had influenza vaccine 12/12/15- 3Admin Note: PT had the flu shot done at [facility] Flu clinic 4Admin Note: GIVEN IN CL[facility]IC [facility] 5Admin Note: [facility] 6Admin Note: [facility] 7Admin Note: GIVEN AT OUTSIDE CLINIC 8Admin [...] 01/09/19 13:33:23 EST, Route to Pharmacy Electronically, [id number], [facility] # [id number] Start Date: 01/09/19 Stop [...] colo 2008 4colo 2003 nl, rpt 2013 99504; no repeat due to age 6restarted HCTZ; will monitor 7holding hctz ;recheck 8Antibody positive 9thought to be medication related by neurology Social History Social History Type Response Smoking Status Never smoker; Tobacc o user in household: No entered on: 07/05/14 Sex
--- OUTSIDE RECORDS SUMMARY | 2024-01-05 22:55 | XMS_ITS | Continuity of Care Document ---
Author Organization [facility] Yon lt Address [address] [place] [address]- Care Team Providers Care Bicycle Fitter Name Role Phone Jaci GOLD, Garrison Swan Primary Care Physician [phone] Encounter [facility] Date(s): 07/23/23 - 08/22/23 [facility] Adult [address] [place] [address]- Allergies, Adverse Reactions, Alerts Substance Reaction Severity Status cephalexin Active nitrofurantoin Active statins MYALGIAS Active sulfADIAZINE Ciprofloxacin Active predniSONE SEVERE H/A Active valsartan 1 Active 1dizziness Immunizations Given and Recorded Vaccine Date Status Refusal Reason RSV vaccine, preF A-preF B, recombinant 03/23/23 R ecorded SARS-CoV-2(COVID-19)mRNA-LNP vac([id number]) 11/26/22 Recorded influenza virus vaccine, inactivated 11/05/22 [...] virus vaccine, inactivated 3 12/30/05 Gi cyn [id number] 12y+ bivalent booster vax 08/06/22 Recorded [id number] 12y+ bivalent booster vax 12/13/21 Recorded pneumococcal 23-valent vaccine 4 07/29/21 Given SARS-CoV-2 mRNA (xumraxp-tvmt-nbyda) vax 4/16/22 Recorded SARS-CoV-2 (COVID-19) mRNA BNT-162b2 vac 11/28/20 [...] Toxoid Vaccine (oldterm) 03/08/00 Given 1Result Comment: [facility]# [id number] 2Result Comment: [12/09/2017] [id number] 3Admin Note: GIVEN IN CLINIC [facility] 4Result Comment: [facility]# [id number] 5Admin Note: [facility] 6Admin Note: [facility] [facility] 7Admin Note: GIVEN AT OUTSIDE CLINIC 8Admin Note: per pt rcvd elsewhere Medications amLODIPine 5 mg oral tablet 1 tablet, By Mouth, Daily, # 30 tablet, 5 Refills, Maintenance, 03/14/23 14:05:00 EST, [facility] STORE 97323, 157.5, cm, 08/04/22 8:48:00 EDT, Height, 59.5, kg, 06/03/22 14:32:00 EDT, Dry Weight Start Date: 03/14/23 Status: Ordered Aspirin Low Dose 81 mg oral delayed release tablet 1 tablet, By Mouth, Daily, # 30 tablet, 5 Refills, Maintenance, 08/10/23 12:27:00 EDT, [facility]ORE 17395, 157.5, cm, 06/22/23 15:03:00 EDT, Height, 59.5, kg, 06/03/22 14:32:00 EDT, Dry Weight Start Date: 08/10/23 Status: Ordered carvedilol 6.25 mg oral tablet 1, tablet, By Mouth, 2 times a day, # 180 tablet, Refills 1, Tot. Refills 1, Maintenance, 07/24/23 15:25:00 EDT, [facility], cm, 06/22/23 15:03:00 EDT, Height, 59.5, kg, 06/03/22 14:32:00 EDT, Dry Weight Start Date: 07/24/23 Status: Ordered Daily Brielle oral tablet 1 tablet, By Mouth, Daily, # 30 tablet, 11 Refills, Maintenance, 02/15/23 12:26:00 EST, [facility] STORE 57280, 30, TAKE 1 TABLET BY MOUTH EVERY DAY, 157.5, cm, 08/04/22 8:48:00 EDT, Height, 59.5, kg, 06/03/22 14:32:00 EDT, Dry Weight Start Date: 02/15/23 Status: Ordered furosemide 40 mg oral tablet 1, tablet, By Mouth, Daily, # 30 tablet, Refills 5, Tot. Refills 5, Maintenance, 03/18/23 7:42:00 EST, [facility] 157.5, cm, 08/04/22 8:48:00 EDT, Height, 59.5, kg, 06/03/22 14:32:00 EDT, Dry Weight Start Date: 03/18/23 Status: Ordered lisinopril 10 mg oral tablet 1, tablet, By Mouth, 2 times a day, # 180 tablet, Refills 3, Maintenance, 01/25/23 11:53:00 EST, Route to Pharmacy Electronically, [facility] STORE 19931, 157.5, cm, 08/04/22 8:48:00 EDT, Height, 59.5, [...] Refills, Maintenance, 02/11/23 7:48:00 EST, [facility]ORE 18729, 157.5, cm, 08/04/22 8:48:00 EDT, Height, 59.5, kg, 06/03/22 14:32:00 EDT, Dry Weight Start Date: 02/11/23 Status: Ordered Vitamin D3 1000 intl units oral capsule 1 capsule, By Mouth, Daily, # 30 capsule, 5 Refills, Maintenance, 03/14/23 14:05:00 EST, [facility] STORE 67278, 157.5, cm, 08/04/22 8:48:00 EDT, Height, 59.5, [...] 4colo 2004 nl, rpt 2013 5MI 2019 22[address]; no repeat due to age 7restarted HCTZ; will monitor 8holding hctz ;recheck 9Per discharge note 03/05/21: Long-standing schizoaffective disorder, bipolar type. 10Antibody positive 11thought to be medication related by neurology Social History Social History Type Response Smoking Status Never (less than 100 in lifetime) entered on: 12/02/20 Sex Patient Care team information Care Team Personnel Name: Suresh COONEY, Zabrina Position: [facility] RN Member Role: Primary Care Nurse Name: Carley Vazquez RN Position: [facility] RN Member Role: Primary Care Nurse Name: Geetha MAYBERRY, Annia Gomes Position: [facility] Associate Professional Member Role: Primary Care Nurse Name: Jaci GOLD, Garrison Swan Position: [facility] Physician - Primary Care Member Role: PCP Address: Address: [address] [place] [address]- [place] Name: David Knapp MD Position: [facility] Renal MD Member Role: Lifetime Consulting Physician Address: Address: [address] [place] [address] [address] [facility] [place] [place] [address]- [place] Name: Torito COONEY, Melissa Position: [facility] RN Member Role: Primary Care Nurse Care Team Related Persons Name: LIVIA MAXWELL Address: home [address] [place] [address] Name: DINA MAXWELL Address: home [address] [place] [address]
--- OUTSIDE RECORDS SUMMARY | 2024-01-05 22:55 | XMS_ITS | Continuity of Care Document ---
Author Organization [facility] Yon lt Address [address] [place] [address]- Care Team Providers Care Helpdesk Technician Name Role Phone Jaci GOLD, Garrison Swan Primary Care Physician [facility]counter [facility] Date(s): 01/05/22 - 02/04/22 [facility] Adult [address] [place] [address]- Allergies, Adverse Reactions, Alerts Substance Reaction Severity [...] 23-valent vaccine 6 07/29/21 Given SARS-CoV-2 mRNA (efsdlxn-knev-wsasd) vax 06/21/21 Recorded SARS-CoV-2 (COVID-19) mRNA BNT-162b2 [...] Toxoid Vaccine (oldterm) 03/08/00 Given 1Result Comment: [facility]# [id number] 2Result Comment: [12/09/2017] [id number] 3Result Comment: [04/15/2015 Uncharted] Pt had influenza vaccine 12/12/15- 4Admin Note: PT had the flu shot done at [facility] Flu clinic 5Admin Note: GIVEN IN CL[facility]IC [facility] 6Result Comment: [facility]# [id number] 7Admin Note: [facility] [facility] [employer] [facility] 8Admin Note: [facility] [facility] [facility] [employer] [facility] 9Admin Note: GIVEN AT OUTSIDE CLINIC 10Admin Note: per pt rcvd elsewhere Medications amLODIPine 5 mg oral tablet See Instructions, TAKE 1 TABLET BY MOUTH EVERY DAY, # 30 tablet, 5 Refills, Maintenance, 01/01/22 15:18:00 EDT, [facility] STORE 26121, 158, cm, 11/27/21 8:19:00 EDT, Height, 63, [...] 02/02/22 16:34:00 EST, [facility] fill upon patient request if the prescription is for a schedule II... Start Date: 02/02/22 Status: Ordered clopidogrel 75 mg oral tablet 1, tablet, By Mouth, Daily, # 30 tablet, Refills 0, Maintenance, 11/06/21 16:29:00 EDT, Route to Pharmacy Electronically, [facility] STORE 27500, 158, cm, 10/02/21 9:27:00 EDT, Height, 63, kg, 07/28/21 1:38:00 EDT, Dry Weight Start Date: 11/06/21 Status: Ordered donepezil 5 mg oral tablet See Instructions, TAKE 1 TABLET BY MOUTH AT BEDTIME, # 30 tablet, Refills 5, Tot. Refills 5, 01/23/22 15:56:00 EST, Instructions Replace Required Details, [facility] 158, cm, 01/21/22 13:27:00 EST, Height, 63... Start Date: 01/23/22 Status: Ordered Lasix 40 mg oral tablet 40 mg, 1, tablet, By Mouth, Daily, # 30 tablet, Refills 11, Tot. Refills 11, Maintenance, 03/12/21 16:08:00 EST, [facility], Partial fill upon patient request if the prescription is for a schedule II opioid dr... Start Date: 03/12/21 Stop Date: 03/07/22 Status: Ordered lisinopril 10 mg oral tablet 10 mg, 1, tablet, By Mouth, 2 times a day, # 180 tablet, Refills 3, Tot. Refills 3, Maintenance, 03/07/22 16:09:00 EST, [id number] fill upon patientrequest if the prescription is for a schedule II op... Start Date: 03/07/22 Status: Ordered magnesium oxide 400 mg oral tablet 1 tablet = 400 mg, By Mouth, Daily, for 30 days, # 30 tablet, 11 Refills, Acute 03/07/22 16:11:00 EST, 03/12/21 16:11:00 EST, Tablet, [facility]/pharmacy #7111, Partial [...] Refills, Maintenance, 01/23/22 15:28:00 EST, ER Capsule, [facility]/pharmacy #7111, Partial fill [...] 4colo 2004 nl, rpt 2013 5MI 2019 [address]; no repeat due to age 7restarted HCTZ; [...] Care Nurse Name: Annia Iniguez NP Position: [facility] Associate Professional Member Role: Primary Care Nurse Address: Address: [address] [place] [address]- [place] Name: Garrison Beatty MD Position: [facility] Primary Care Physician Member Role: PCP Address: Address: [address] [place] [address]- [place] Name: David Knapp MD Position: [facility] Renal MD Member Role: Lifetime Consulting Physician Address: Address: [address] [facility] [place] [address]- [place] Name: Zabrina Reyes RN Position: [facility] RN Member Role: Primary Care Nurse Name: Torito COONEY, Melissa Position: [facility] RN Member Role: Primary Care Nurse Care Team Related Persons Name: LIVIA MAXWELL Address: [address] [address] Name: DINA MAXWELL Address: [address] [address]
--- OUTSIDE RECORDS SUMMARY | 2024-01-05 22:55 | XMS_ITS | Continuity of Care Document ---
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 Name Role Phone Garrison Beatty MD Primary Care Physician En[place] [facility] [place] Date(s): 01/19/22 - 02/18/22 [facility] [address] [place] [address]- [place] Allergies, Adverse Reactions, Alerts Substance Reaction [...] 23-valent vaccine 6 07/29/21 Given SARS-CoV-2 mRNA (kmiglfa-fnlr-pgmne) vax 06/21/21 Recorded SARS-CoV-2 (COVID-19) mRNA BNT-162b2 [...] Toxoid Vaccine (oldterm) 03/08/00 Given 1Result Comment: [facility]# [id number] 2Result Comment: [12/09/2017] [id number] 3Result Comment: [04/15/2015 Uncharted] Pt had influenza vaccine 12/12/15- 4Admin Note: PT had the flu shot done at [facility] Flu clinic 5Admin Note: GIVEN IN CLINIC [facility] 6Result Comment: [facility]# [id number] 7Admin Note: [facility] 8Admin Note: [facility] 9Admin Note: GIVEN AT OUTSIDE CLINIC 10Admin Note: per pt rcvd elsewhere Medications amLODIPine 5 mg oral tablet See Instructions, TAKE 1 TABLET BY MOUTH EVERY DAY, # 30 tablet, 5 Refills, Maintenance, 01/01/22 15:18:00 EDT, [facility] STORE 97410, 158, cm, 11/27/21 8:19:00 EDT, Height, 63, [...] 02/02/22 16:34:00 EST, Route to Pharmacy Electronically, [facility]/pharmacy #7111, Partial fill upon patient request if the prescription is for a schedule II... Start Date: 02/02/22 Status: Ordered clopidogrel 75 mg oral tablet 1, tablet, By Mouth, Daily, # 30 tablet, Refills 0, Maintenance, 11/06/21 16:29:00 EDT, Route to Pharmacy Electronically, [facility] STORE 86689, 158, cm, 10/02/21 9:27:00 EDT, Height, 63, kg, 07/28/21 1:38:00 EDT, Dry Weight Start Date: 11/06/21 Status: Ordered donepezil 5 mg oral tablet See Instructions, TAKE 1 TABLET BY MOUTH AT BEDTIME, # 30 tablet, Refills 5, Tot. Refills 5, 01/23/22 15:56:00 EST, Instructions Replace Required Details, Route to Pharmacy Electronically, [facility]/pharmacy #7111, 158, cm, 01/21/22 13:27:00 EST, Height, 63... Start Date: 01/23/22 Status: Ordered Lasix 40 mg oral tablet 40 mg, 1, tablet, By Mouth, Daily, # 30 tablet, Refills 11, Tot. Refills 11, Maintenance, 03/12/21 16:08:00 EST, [facility] fill upon patient request if the prescription is for a schedule II opioid dr... Start Date: 03/12/21 Stop Date: 03/07/22 Status: Ordered lisinopril 10 mg oral tablet 10 mg, 1, tablet, By Mouth, 2 times a day, # 180 tablet, Refills 3, Tot. Refills 3, Maintenance, 03/07/22 16:09:00 EST, Route to Pharmacy Electronically, [facility]/pharmacy #7111, Partial fill upon patientrequest if the prescription is for a schedule II op... Start Date: 03/07/22 Status: Ordered magnesium oxide 400 mg oral tablet 1 tablet = 400 mg, By Mouth, Daily, for 30 days, # 30 tablet, 11 Refills, Acute 03/07/22 16:11:00 EST, 03/12/21 16:11:00 EST, Tablet, [facility]/pharmacy #7111, Partial [...] Refills, Maintenance, 01/23/22 15:28:00 EST, ER Capsule, [facility]/pharmacy #7111, Partial fill [...] 4colo 2003 nl, rpt 2013 5MI 2019 [address]; no repeat due to age 7restarted HCTZ; will monitor 8holding hctz ;recheck 9Per discharge note 03/05/21: Long-standing schizoaffective disorder, bipolar type. 10Antibody positive 11thought to be medication related by neurology Social History Social History Type Response Smoking Status Never (less than 100 in lifetime) entered on: 12/02/20 Sex Patient Care team information Care Team Personnel Name: Carley Vazquez RN Position: [facility] RN Member Role: Primary Care Nurse Name: Geetha MAYBERRY, Annia Gomes Position: [facility] Associate Professional Member Role: Primary Care Nurse Address: Address: [address] [place] [address]- [place] Name: Garrison Beatty MD Position: [facility] Primary Care Physician Member Role: PCP Address: Address: [address] [place] [address]- [place] Name: David Knapp MD Position: [facility] Renal MD Member Role: Lifetime Consulting Physician Address: Address: [address] [facility] [place] [address]- [place] Name: Zabrina Reyes RN Position: [facility] RN Member Role: Primary Care Nurse Name: Melissa Ugarte RN Position: [facility] RN Member Role: Primary Care Nurse Care Team Related Persons Name: LIVIA MAXWELL Address: [address] [address] Name: DINA MAXWELL Address: [address] [address]
--- OUTSIDE RECORDS SUMMARY | 2024-01-05 22:55 | XMS_ITS | Continuity of Care Document ---
Author Organization [facility] Weston Yon lt Address [address] [place] [address]- Care Team Providers Care Bus Analyst Name Role Phone Jaci GOLD, Garrison Swan Primary Care Physician [facility]21 - 01/16/22 [facility] Adult [address] [place] [address]- Allergies, Adverse Reactions, Alerts Substance Reaction Severity [...] 23-valent vaccine 6 07/29/21 Given SARS-CoV-2 mRNA ([id number]-nmdo-afork) vax 06/21/21 Recorded SARS-CoV-2 (COVID-19) mRNA BNT-162b2 [...] Toxoid Vaccine (oldterm) 03/08/00 Given 1Result Comment: [facility]# [id number] 2Result Comment: [12/09/2017] [id number] 3Result Comment: [04/15/2015 Uncharted] Pt had influenza vaccine 12/12/15- 4Admin Note: PT had the flu shot done at [facility] Flu clinic 5Admin Note: GIVEN IN CLINIC [facility] 6Result Comment: [facility]# [id number] 7Admin Note: [facility] 8Admin Note: [facility] 9Admin Note: GIVEN AT OUTSIDE CLINIC 10Admin Note: per pt rcvd elsewhere Medications amLODIPine 5 mg oral tablet See Instructions, TAKE 1 TABLET BY MOUTH EVERY DAY, # 30 tablet, 5 Refills, Maintenance, 01/01/22 15:18:00 EDT, [id number], 158, cm, 11/27/21 8:19:00 EDT, Height, 63, [...] 10/13/21 14:45:00 EDT, Route to Pharmacy Electronically, [facility]/pharmacy #[id number], Partial fill upon patient request if the prescription is for a schedule II o... Start Date: 10/13/21 Status: Ordered clopidogrel 75 mg oral tablet 1, tablet, By Mouth, Daily, # 30 tablet, Refills 0, Maintenance, 11/06/21 16:29:00 EDT, Route to Pharmacy Electronically, [facility] STORE 83638, 158, cm, 10/02/21 9:27:00 EDT, Height, 63, kg, 07/28/21 1:38:00 EDT, Dry Weight Start Date: 11/06/21 Status: Ordered donepezil 5 mg oral tablet See Instructions, TAKE 1 TABLET BY MOUTH AT BEDTIME, # 30 tablet, Refills 2, Instructions Replace Required Details, Route to Pharmacy Electronically, [facility] STORE 60484, 158, cm, 10/02/21 9:27:00 EDT, Height, 63, kg, 07/28/21 1:38:00 EDT, Dry Weight Start Date: 10/16/21 Status: Ordered Lasix 40 mg oral tablet 40 mg, 1, tablet, By Mouth, Daily, # 30 tablet, Refills 11, Tot. Refills 11, Maintenance, 03/12/21 16:08:00 EST, [id number] Partial fill upon patient request if the prescription is for a schedule II opioid dr... Start Date: 03/12/21 Stop Date: 03/07/22 Status: Ordered lisinopril 10 mg oral tablet 10 mg, 1, tablet, By Mouth, 2 times a day, for 30 days, # 60 tablet, Refills 11, Tot. Refills 11, Hard Stop 03/07/22 16:09:00 EST, 03/12/21 16:09:00 EST, Route to Pharmacy Electronically, [facility]/pharmacy #[id number], Partial fill upon patient request if the pr... Start Date: 03/12/21 Stop Date: 03/07/22 Status: Ordered lisinopril 10 mg oral tablet 10 mg, 1, tablet, By Mouth, 2 times a day, # 180 tablet, Refills 3, Tot. Refills 3, Maintenance, 03/07/22 16:09:00 EST, [id number] Partial fill upon patientrequest if the prescription is for a schedule II op... Start Date: 03/07/22 Status: Ordered magnesium oxide 400 mg oral tablet 1 tablet = 400 mg, By Mouth, Daily, for 30 days, # 30 tablet, 11 Refills, Acute 03/07/22 16:11:00 EST, 03/12/21 16:11:00 EST, Tablet, [facility]/pharmacy #[id number], Partial fill [...] Refills, Maintenance, 03/12/21 16:07:00 EST, ER Capsule, [facility]/pharmacy #[id number], Partial fill [...] 4colo 2004 nl, rpt 2013 5MI 2019 44164; no repeat due to age 7restarted HCTZ; will monitor 8holding hctz ;recheck 9Per discharge note 03/05/21: Long-standing schizoaffective disorder, bipolar type. 10Antibody positive 11thought to be medication related by neurology Social History Social History Type Response Smoking Status Never (less than 100 in lifetime) entered on: 12/02/20 Sex Patient Care team information Care Team Personnel Name: Carley Vazquez RN Position: [facility] RN Member Role: Primary Care Nurse Name: Annia Iniguez NP Position: [facility] Associate Professional Member Role: Primary Care Nurse Address: Address: [address] [place] [address]- Name: Garrison Beatty MD Position: [facility] Primary Care Physician Member Role: PCP Address: Address: [address] [place] [address]- [place] Name: Ra GOLD, David Position: [facility] Renal MD Member Role: Lifetime Consulting Physician Address: Address: [address] [facility] [address] [facility], [place] [address]- [place] Name: Zabrina Reyes RN Position: [facility] RN Member Role: Primary Care Nurse Name: Melissa Ugarte RN Position: [facility] RN Member Role: Primary Care Nurse Care Team Related Persons Name: LIVIA MAXWELL Address: home [address] [place] [address] Name: DINA MAXWELL Address: [address] [place] [address]
--- OUTSIDE RECORDS SUMMARY | 2024-01-05 22:55 | XMS_ITS | Continuity of Care Document ---
Author Organization [facility] Weston Yon lt Address [address] [place] [address]- Care Team Providers Care Secretary Administrative Assistant Name Role Phone Catie Washington Primary Care Physician [phone] [facility] 06[facility]22[facility]23 - 06/29/23 [facility] Adult [address] [place] [address]- Encounter Diagnosis Left sided abdominal pain(Discharge Diagnosis) - 06/22/23 Attending Physician: Catie Washington Allergies, Adverse Reactions, Alerts Substance Reaction Severity Status cephalexin Active nitrofurantoin Active sulfADIAZINE Ciprofloxacin Active predniSONE SEVERE H/A Active valsartan 1 Active statins MYALGIAS Active 1dizziness Immunizations Given and Recorded Vaccine Date Status Refusal Reason RSV vaccine, preF A-preF B, recombinant 03/23/23 R ecorded SARS-CoV-2(COVID-19)mRNA-LNP vac(det082) 11/26/22 Recorded influenza virus vaccine, inactivated 11/05/22 [...] virus vaccine, inactivated 3 12/30/05 Gi cyn [id number] 12y+ bivalent booster vax 08/06/22 Recorded [id number] 12y+ bivalent booster vax 12/13/21 Recorded pneumococcal 23-valent vaccine 4 07/29/21 Given SARS-CoV-2 mRNA (cppvnio-wqqm-dxesb) vax 06/21/21 Recorded SARS-CoV-2 (COVID-19) mRNA BNT-162b2 [...] Toxoid Vaccine (oldterm) 03/08/00 Given 1Result Comment: [facility]# [id number] 2Result Comment: [12/09/2017] [id number] 3Admin Note: GIVEN IN CLINIC [facility] 4Result Comment: [facility]# [id number] 5Admin Note: [facility] 6Admin Note: [facility] 7Admin Note: GIVEN AT OUTSIDE CLINIC 8Admin Note: per pt rcvd elsewhere Medications amLODIPine 5 mg oral tablet 1 tablet, By Mouth, Daily, # 30 tablet, 5 Refills, Maintenance, 03/14/23 14:05:00 EST, [facility] 75938, 157.5, cm, 08/04/22 8:48:00 EDT, Height, 59.5, kg, 06/03/22 14:32:00 EDT, Dry Weight Start Date: 03/14/23 Status: Ordered Aspirin Low Dose 81 mg oral delayed release tablet 1 tablet, By Mouth, Daily, # 30 tablet, 5 Refills, Maintenance, 03/18/23 7:42:00 EST, [facility]/pharmacy #[id number], 157.5, cm, 08/04/22 8:48:00 EDT, Height, 59.5, kg, 06/03/22 14:32:00 EDT, Dry Weight Start Date: 03/18/23 Status: Ordered carvedilol 6.25 mg oral tablet 1, tablet, By Mouth, 2 times a day, # 180 tablet, Refills 1, Tot. Refills 1, Maintenance, 01/27/23 20:22:00 EST, Route to Pharmacy Electronically, [facility]/pharmacy #[id number], 157.5, cm, 08/04/22 8:48:00 EDT,Height, 59.5, kg, 06/03/22 14:32:00 EDT, Dry Weight Start Date: 01/27/23 Status: Ordered clopidogrel 75 mg oral tablet 1, tablet, By Mouth, Daily, # 30 tablet, Refills 5, Tot. Refills 5, Maintenance, 03/26/22 11:55:00 EST, Route to Pharmacy Electronically, [facility]/pharmacy #[id number], 158, cm, 02/27/22 13:27:00 EST, Height, 63, kg, 07/28/21 1:38:00 EDT, Dry Weight Start Date: 03/26/22 Status: Ordered Daily Brielle oral tablet 1 tablet, By Mouth, Daily, # 30 tablet, 11 Refills, Maintenance, 02/15/23 12:26:00 EST, [facility] STORE 62647, 30, TAKE 1 TABLET BY MOUTH EVERY DAY, 157.5, cm, 08/04/22 8:48:00 EDT, Height, 59.5, kg, 06/03/22 14:32:00 EDT, Dry Weight Start Date: 02/15/23 Status: Ordered donepezil 5 mg oral tablet 1, tablet, By Mouth, Daily at bedtime, # 30 tablet, Refills 2, Maintenance, 05/25/22 16:50:00 EDT, Route to Pharmacy Electronically, [facility] ST[facility] 05402, 158, cm, 02/27/22 13:27:00 EST, Height, 63, kg, 07/28/21 1:38:00 EDT, Dry Weight Start Date: 05/25/22 Status: Ordered furosemide 40 mg oral tablet 1, tablet, By Mouth, Daily, # 30 tablet, Refills 5, Tot. Refills 5, Maintenance, 03/18/23 7:42:00 EST, Route to Pharmacy Electronically, [facility]/pharmacy #[id number], 157.5, cm, 08/04/22 8:48:00 EDT, Height, 59.5, kg, 06/03/22 14:32:00 EDT, Dry Weight Start Date: 03/18/23 Status: Ordered lisinopril 10 mg oral tablet 1, tablet, By Mouth, 2 times a day, # 180 tablet, Refills 3, Maintenance, 01/25/23 11:53:00 EST, Route to Pharmacy Electronically, [facility] ST[facility] 61156, 157.5, cm, 08/04/22 8:48:00 EDT, Height, 59.5, [...] capsule, 3 Refills, Maintenance, 02/11/23 7:48:00 EST, [facility] ST[facility] 07438, 157.5, cm, 08/04/22 8:48:00 EDT, Height, 59.5, kg, 06/03/22 14:32:00 EDT, Dry Weight Start Date: 02/11/23 Status: Ordered Vitamin D3 1000 intl units oral capsule 1 capsule, By Mouth, Daily, # 30 capsule, 5 Refills, Maintenance, 03/14/23 14:05:00 EST, [facility] ST[facility] 66251, 157.5, cm, 08/04/22 8:48:00 EDT, Height, 59.5, [...] 4colo 2003 nl, rpt 2013 5MI 2019 74876; no repeat due to age 7restarted HCTZ; will monitor 8holding hctz ;recheck 9Per discharge note 03/05/21: Long-standing schizoaffective disorder, bipolar type. 10Antibody positive 11thought to be medication related by neurology Diagnosis Diagnosis Type Effective Dates Health Status Cl inical Service Informant Left sided abdominal pain Discharge Diagnosis 06/22/23 Vital Signs Most recent to oldest [Reference Range]: 1 Height 157.50 cm (06/22/23 3:03 PM) Weight 63.6 kg (06/22/23 3:03 PM) Oxygen Saturation [94-100 %] 98 % (06/22/23 3:03 PM) Pulse Rate [55-90 bpm] 70 bpm (06/22/23 3:03 PM) Body Mass Index [18.5-24.99 kg/m2] 25.64 kg/m2 *H* (06/22/23 3:03 PM) Blood Pressure [90-138/55-84 mm Hg] 138/ 75mm Hg (06/22/23 3:03 PM) Temperature [96.8-100.4 DegF] 97.9 DegF (06/22/23 3:03 PM) Mode of Delivery (Oxygen) Room air (06/22/23 3:03 PM) Blood pressure sites Arm, left (06/22/23 3:03 PM) Temperature Route Oral (06/22/23 3:03 PM) Weight Obtained Via Standing scale (06/22/23 3:03 PM) Social History Social History Type Response Smoking Status Never (less than 100 in lifetime) entered on: 12/02/20 Sex Patient Care team information Care Team Personnel Name: George COONEY, Carley Position: [facility] RN Member Role: Primary Care Nurse Name: Geetha MAYBERRY, Annia Gomes Position: [facility] Associate Professional Member Role: Primary Care Nurse Address: Address: [address] [place] [address]- [place] Name: Catie Washington Position: [facility] PCO Associate Professional Member Role: PCP Address: Address: [address] [place] [id number]- [place] Name: David Knapp MD Position: [facility] Renal MD Member Role: Lifetime Consulting Physician Address: Address: [address] [place] [address] [address] [facility] [place], [place] [address]- [place] Name: Zabrina Reyes RN Position: S RN Member Role: Primary Care Nurse Name: Melissa Ugarte RN Position: S RN Member Role: Primary Care Nurse Care Team Related Persons Name: LIVIA MAXWELL Address: [address] [place] [address] Name: DINA MAXWELL Address: [address] [place] [address]
--- OUTSIDE RECORDS SUMMARY | 2024-01-05 22:56 | XMS_ITS | Continuity of Care Document ---
Author Organization [facility] Weston Yon lt Address [address] [place] [address]- Care Team Providers Care Direct Marketing Representative Name Role Phone Jaci GOLD, Garrison Swan Primary Care Physician [facility] 04[facility]29/20 - 05/06/20 [facility] [place] Adult [address] [place] [address]- Attending Physician: Belkis Pete NP Allergies, Adverse Reactions, Alerts Substance Reaction Severity [...] Vaccine (oldterm) 03/08/00 Given 1Result Comment: [12/09/2017] [id number] 2Result Comment: [04/15/2015 Uncharted] Pt had influenza vaccine 12/12/15- 3Admin Note: PT had the flu shot done at [facility] Flu clinic 4Admin Note: GIVEN IN CLINIC [facility] 5Admin Note: [employer] [facility] 6Admin Note: [employer] [facility] 7Admin Note: GIVEN AT OUTSIDE CLINIC 8Admin [...] 04/29/20 7:44:00 EST, Route to Pharmacy Electronically, [facility] STORE 95436, 160, cm, 04/25/20 9:48:00 EST, Height, 62, [...] 9:22:00 EST, Route to Pharmacy Electronically, [facility]/pharmacy #[id number], Partial fill upon patient requestif the prescription is for a schedule II opioid symone... Start Date: 04/29/20 Stop Date: 04/24/21 Status: Ordered lisinopril 5 mg oral tablet 5 mg, 1, tablet, By Mouth, Daily, # 30 tablet, Refills 3, Tot. Refills 3, Maintenance, 04/25/20 10:36:00 EST, Route to Pharmacy Electronically, [facility]/pharmacy #[id number], Partial fill upon patient request if [...] 03/20/20 10:44:00 EST, Route to Pharmacy Electronically, [facility]/pharmacy #[id number], Partial fill upon patient request if [...] 4colo 2003 nl, rpt 2013 5MI 2019 96706; no repeat due to age 7restarted HCTZ; will monitor 8holding hctz ;recheck 9Antibody positive 10thought to be medication related by neurology Vital Signs Most recent to oldest [Reference Range]: 1 Height 160 cm (04/29/20 8:53 AM) Social History Social History Type Response Smoking Status Never smoker; Tobacc o user in household: No entered on: 07/05/14 Sex
--- OUTSIDE RECORDS SUMMARY | 2024-01-05 22:56 | XMS_ITS | Continuity of Care Document ---
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 Name Role Phone Garrison Beatty MD Primary Care Physician Encounter [facility] Date(s): 11/07/21 - 12/07/21 [facility] [address] [place] [address]- [place] Allergies, Adverse Reactions, Alerts Substance Reaction [...] 23-valent vaccine 6 07/29/21 Given SARS-CoV-2 mRNA (lpnjgkm-qskt-kvphw) vax 06/21/21 Recorded SARS-CoV-2 (COVID-19) mRNA BNT-162b2 [...] Toxoid Vaccine (oldterm) 03/08/00 Given 1Result Comment: [facility]# [id number] 2Result Comment: [12/09/2017] [id number] 3Result Comment: [04/15/2015 Uncharted] Pt had influenza vaccine 12/12/15- 4Admin Note: PT had the flu shot done at [facility] Flu clinic 5Admin Note: GIVEN IN CLINIC [facility] 6Result Comment: [facility]# [id number] 7Admin Note: [facility] 8Admin Note: [facility] 9Admin Note: GIVEN AT OUTSIDE CLINIC 10Admin Note: per pt rcvd elsewhere Medications amLODIPine 5 mg oral tablet 5 mg, 1, tablet, By Mouth, Daily, # 30 tablet, Refills 11, Tot. Refills 11, Maintenance, 03/12/21 16:13:00 EST, Route to Pharmacy Electronically, [facility]/pharmacy #[id number], Partial fill upon patient requestif the prescription [...] 10/13/21 14:45:00 EDT, Route to Pharmacy Electronically, [facility]/pharmacy #[id number], Partial fill upon patient request if the prescription is for a schedule II o... Start Date: 10/13/21 Status: Ordered clopidogrel 75 mg oral tablet 1, tablet, By Mouth, Daily, # 30 tablet, Refills 0, Maintenance, 11/06/21 16:29:00 EDT, Route to Pharmacy Electronically, [facility] STORE 96469, 158, cm, 10/02/21 9:27:00 EDT, Height, 63, kg, 07/28/21 1:38:00 EDT, Dry Weight Start Date: 11/06/21 Status: Ordered donepezil 5 mg oral tablet See Instructions, TAKE 1 TABLET BY MOUTH AT BEDTIME, # 30 tablet, Refills 2, Instructions Replace Required Details, Route to Pharmacy Electronically, [facility] STORE 00272, 158, cm, 10/02/21 9:27:00 EDT, Height, 63, kg, 07/28/21 1:38:00 EDT, Dry Weight Start Date: 10/16/21 Status: Ordered Lasix 40 mg oral tablet 40 mg, 1, tablet, By Mouth, Daily, # 30 tablet, Refills 11, Tot. Refills 11, Maintenance, 03/12/21 16:08:00 EST, Route to Pharmacy Electronically, [facility]/pharmacy #[id number], Partial fill upon patient request if the prescription is for a schedule II opioid dr... Start Date: 03/12/21 Stop Date: 03/07/22 Status: Ordered lisinopril 10 mg oral tablet 10 mg, 1, tablet, By Mouth, 2 times a day, # 60 tablet, Refills 11, Tot. Refills 11, Maintenance, 03/12/21 16:09:00 EST, Route to Pharmacy Electronically, [facility]/pharmacy #[id number], Partial fill upon patient request if the prescription is for a schedule II o... Start Date: 03/12/21 Stop Date: 03/07/22 Status: Ordered magnesium oxide 400 mg oral tablet 1 tablet = 400 mg, By Mouth, Daily, for 30 days, # 30 tablet, 11 Refills, Acute 03/07/22 16:11:00 EST, 03/12/21 16:11:00 EST, Tablet, [facility]/pharmacy #[id number], Partial fill upon patient [...] Refills, Maintenance, 03/12/21 16:07:00 EST, ER Capsule, [facility]/pharmacy #[id number], Partial fill upon patient [...] 4colo 2004 nl, rpt 2013 5MI 2019 70978; no repeat due to age 7restarted HCTZ; will monitor 8holding hctz ;recheck 9Per discharge note 03/05/21: Long-standing schizoaffective disorder, bipolar type. 10Antibody positive 11thought to be medication related by neurology Social History Social History Type Response Smoking Status Never (less than 100 in lifetime) entered on: 12/02/20 Sex Patient Care team information Personnel Name: Jaci GOLD, Garrison Swan Address: Address: [address] [place] [id number]
--- OUTSIDE RECORDS SUMMARY | 2024-01-05 22:56 | XMS_ITS | Continuity of Care Document ---
Author Organization [facility] Weston Yon lt Address [address] [place] [address]- Care Team Providers Care Warehouse Logistics Coordinator Name Role Phone Garrison Beatty MD Primary Care Physician [facility]): 07[facility]20 - 07/12/20 [facility] [place] Adult [address] [place] [address]- Encounter Diagnosis Anxiety(Discharge Diagnosis) - 07/05/20 Attending Physician: Garrison Beatty MD Allergies, Adverse [...] Vaccine (oldterm) 03/08/00 Given 1Result Comment: [12/09/2017] [id number] 2Result Comment: [04/15/2015 Uncharted] Pt had influenza vaccine 12/12/15- 3Admin Note: PT had the flu shot done at [facility] Flu clinic 4Admin Note: GIVEN IN CLINIC [facility] 5Admin Note: [employer] [facility] 6Admin Note: [employer] [facility] 7Admin Note: GIVEN AT OUTSIDE CLINIC 8Admin Note: per pt rcvd elsewhere Medications carvedilol 3.125 mg oral tablet See Instructions, TAKE 1 TABLET BY MOUTH TWICE A DAY, # 60 tablet, Refills 11, Tot. Refills 11, Maintenance, Instructions Replace Required Details, Route to Pharmacy Electronically, [facility] STORE 76885, 160, cm, 07/05/20 7:47:00 EDT, Height, 62, kg, 02/26... Start Date: 07/05/20 Status: Ordered furosemide 20 mg oral tablet 1, capsule, By Mouth, Once, # 7 tablet, Refills 0, Tot. Refills 0, Soft Stop, 07/10/20 13:37:00 EDT, Route to Pharmacy Electronically, [facility]/pharmacy #[id number], Partial fill upon patient request if the prescription is for a schedule II opioid drug., 160, cm... Start Date: 07/10/20 Status: Ordered Lasix 40 mg oral tablet 40 mg, 1, tablet, By Mouth, Daily, # 30 tablet, Refills 11, Tot. Refills 11, Maintenance, 04/29/20 9:22:00 EST, Route to Pharmacy Electronically, [facility]/pharmacy #[id number], Partial fill upon patient requestif the [...] 03/20/20 10:44:00 EST, Route to Pharmacy Electronically, [facility]/pharmacy #[id number], Partial fill upon patient request if the prescription is for a schedule II opioid drug... Start Date: 03/20/20 Status: Ordered potassium chloride 10 mEq oral tablet, extended release 2 tablet = 20 mEq, By Mouth, Daily in AM, # 60 tablet, 5 Refills, Maintenance, 04/29/20 9:23:00 EST, ER Tablet, [facility]/pharmacy #[id number], Partial fill upon patient request if the prescription is for a schedule II opioid drug., 160, cm, 04/29/20 8:53:00 EST,... Start Date: 04/29/20 Status: Ordered valsartan 80 mg oral tablet 40 mg, 0.5, tablet, By Mouth, 2 times a day, # 90 tablet, Refills 3, Tot. Refills 3, Maintenance, 07/10/20 16:10:00 EDT, Route to Pharmacy Electronically, [facility]/pharmacy #[id number], Partial fill upon patient request if [...] 4colo 2003 nl, rpt 2013 5MI 2019 55363; no repeat due to age 7restarted HCTZ; will monitor 8holding hctz ;recheck 9Antibody positive 10thought to be medication related by neurology Diagnosis Diagnosis Type Effective Dates Health Status Clini mckenzie Service Informant Anxiety Discharge Diagnosis 07/05/20 Vital Signs Most recent to oldest [Reference Range]: 1 Height 160 cm (07/05/20 7:47 AM) Social History Social History Type Response Smoking Status Never smoker; Tobacc o user in household: No entered on: 07/05/14 Sex
--- OUTSIDE RECORDS SUMMARY | 2024-01-05 22:56 | XMS_ITS | Continuity of Care Document ---
Author Organization [facility] Address Unknown Care Team Providers Care Licensed Sales Producer Name Role Phone Garrison Beatty MD Primary Care Physician Encounter [facility] Date(s): 07/15/21 - 08/14/21 [facility] Attending Physician: Renetta Strickland Admitting Physician: Renetta Strickland Referring Physician: Renetta Strickland Allergies, Adverse Reactions, Alerts Substance Reaction Severity Status cephalexin Active nitrofurantoin Active sulfADIAZINE Ciprofloxacin Active predniSONE SEVERE H/A Active valsartan 1 Active Macrobid Active statins MYALGIAS Active 1dizziness Immunizations Given and Recorded Vaccine Date Status Refusal Reason pneumococcal 23-valent vaccine 1 07/29/21 Given SARS-CoV-2 mRNA (oouvyxy-xemy-edkky) vax 06/21/21 Recorded influenza virus vaccine, inactivated [...] Vaccine (oldterm) 03/08/00 Given 1Result Comment: [facility]# [id number] 2Result Comment: [12/09/2017] [id number] 3Result Comment: [04/15/2015 Uncharted] Pt had influenza vaccine 12/12/15- 4Admin Note: PT had the flu shot done at [facility] Flu [facility] 5Admin Note: GIVEN IN CLINIC [facility] 6Admin Note: [employer] [facility] 7Admin Note: [employer] [facility] 8Admin Note: GIVEN AT OUTSIDE CLINIC 9Admin Note: per pt rcvd elsewhere Medications amLODIPine 5 mg oral tablet 5 mg, 1, tablet, By Mouth, Daily, # 30 tablet, Refills 11, Tot. Refills 11, Maintenance, 03/12/21 16:13:00 EST, Route to Pharmacy Electronically, [facility]/pharmacy #[id number], Partial fill upon patient requestif the prescription is for a schedule II opioid symone... Start Date: 03/12/21 Status: Ordered Aricept 5 mg oral tablet 5 mg, 1, tablet, By Mouth, Daily at bedtime, # 30 tablet, Refills 11, Tot. Refills 11, Maintenance,03/12/21 16:10:00 EST, Route to Pharmacy Electronically, [facility]/pharmacy #[id number], Partial fill upon patient request if [...] Pharmacy Electronically, [facility]/pharmacy #[id number], Partialfill upon patient request if the prescription is fo... Start Date: 06/26/21 Status: Ordered clopidogrel 75 mg oral tablet 1, tablet, By Mouth, Daily, # 30 tablet, Refills 11, Tot. Refills 11, Maintenance, 03/12/21 16:09:00 EST, Route to Pharmacy Electronically, [facility]/pharmacy #[id number], 157, cm, 03/12/21 13:26:00 EST, Height,60, kg, 01/20/21 16:03:00 EST, Dry Weight Start Date: 03/12/21 Status: Ordered Lasix 40 mg oral tablet 40 mg, 1, tablet, By Mouth, Daily, # 30 tablet, Refills 11, Tot. Refills 11, Maintenance, 03/12/21 16:08:00 EST, Route to Pharmacy Electronically, [facility]/pharmacy #[id number], Partial fill upon patient request if the prescription is for a schedule II opioid dr... Start Date: 03/12/21 Stop Date: 03/07/22 Status: Ordered lisinopril 10 mg oral tablet 10 mg, 1, tablet, By Mouth, 2 times a day, # 60 tablet, Refills 11, Tot. Refills 11, Maintenance, 03/12/21 16:09:00 EST, Route to Pharmacy Electronically, [facility]/pharmacy #[id number], Partial fill upon patient request if the prescription is for a schedule II o... Start Date: 03/12/21 Stop Date: 03/07/22 Status: Ordered magnesium oxide 400 mg oral tablet 1 tablet = 400 mg, By Mouth, Daily, for 30 days, # 30 tablet, 11 Refills, Acute 03/07/22 16:11:00 EST, 03/12/21 16:11:00 EST, Tablet, [facility]/pharmacy #[id number], Partial fill upon patient request if [...] Refills, Maintenance, 03/12/21 16:07:00 EST, ER Capsule, [facility]/pharmacy #[id number], Partial fill upon patient request if [...] 4colo 2004 nl, rpt 2013 5MI 2019 48582; no repeat due to age 7restarted HCTZ; will monitor 8holding hctz ;recheck 9Antibody positive 10thought to be medication related by neurology Social History Social History Type Response Smoking Status Never (less than 100 in lifetime) entered on: 12/02/20 Sex
--- OUTSIDE RECORDS SUMMARY | 2024-01-05 22:56 | XMS_ITS | Continuity of Care Document ---
Author Organization [facility] Address [address] [place] [address]- Care Team Providers Care Transit Mixer Operator Name Role Phone Garrison Beatty MD Primary Care Physician Encounter [facility] Date(s): 11/27/21 - 12/04/21 [facility] Adult [address] [place] [address]- Encounter Diagnosis (HCC)Schizoaffective disorder(Discharge Diagnosis) - 11/27/21 Attending Physician: Garrison Beatty MD Allergies, Adverse Reactions, Alerts Substance Reaction Severity Status cephalexin Active nitrofurantoin Active predniSONE SEVERE H/A Active Macrobid Active statins MYALGIAS Active sulfADIAZINE Ciprofloxacin Active valsartan 1 Active 1dizziness Immunizations Given [...] 23-valent vaccine 6 07/29/21 Given SARS-CoV-2 mRNA (osqosse-fpvz-wmoti) vax 06/21/21 Recorded SARS-CoV-2 (COVID-19) mRNA BNT-162b2 [...] Given 1Result Comment: [facility]# [id number] 2Result Comment: [12/09/2017] [id number] 3Result Comment: [04/15/2015 Uncharted] Pt had influenza vaccine 12/12/15- 4Admin Note: PT had the flu shot done at [facility] Flu clinic 5Admin Note: GIVEN IN CL[facility]IC [facility] 6Result Comment: [facility]# [id number] 7Admin Note: [employer] [facility] 8Admin Note: [facility] 9Admin Note: GIVEN AT OUTSIDE CLINIC 10Admin Note: per pt rcvd elsewhere Medications amLODIPine 5 mg oral tablet 5 mg, 1, tablet, By Mouth, Daily, # 30 tablet, Refills 11, Tot. Refills 11, Maintenance, 03/12/21 16:13:00 EST, Route to Pharmacy Electronically, [facility]/pharmacy #[id number], Partial fill upon patient requestif the prescription is for a schedule II opioid curly. Start Date: 03/12/21 Status: Ordered aspirin 81 [...] 14:45:00 EDT, [id number] Partial fill upon patient request if the prescription is for a schedule II o... Start Date: 10/13/21 Status: Ordered clopidogrel 75 mg oral tablet 1, tablet, By Mouth, Daily, # 30 tablet, Refills 0, Maintenance, 11/06/21 16:29:00 EDT, Route to Pharmacy Electronically, [facility] STORE [id number], 158, cm, 10/02/21 9:27:00 EDT, Height, 63, kg, 07/28/21 1:38:00 EDT, Dry Weight Start Date: 11/06/21 Status: Ordered donepezil 5 mg oral tablet See Instructions, TAKE 1 TABLET BY MOUTH AT BEDTIME, # 30 tablet, Refills 2, Instructions Replace Required Details, Route to Pharmacy Electronically, [facility] STORE [id number], 158, cm, 10/02/21 9:27:00 EDT, Height, 63, kg, 07/28/21 1:38:00 EDT, Dry Weight Start Date: 10/16/21 Status: Ordered Lasix 40 mg oral tablet 40 mg, 1, tablet, By Mouth, Daily, # 30 tablet, Refills 11, Tot. Refills 11, Maintenance, 03/12/21 16:08:00 EST, [id number], Partial fill upon patient request if the prescription is for a schedule II opioid dr... Start Date: 03/12/21 Stop Date: 03/07/22 Status: Ordered lisinopril 10 mg oral tablet 10 mg, 1, tablet, By Mouth, 2 times a day, # 60 tablet, Refills 11, Tot. Refills 11, Maintenance, 03/12/21 16:09:00 EST, [id number], Partial fill upon patient request if the prescription is for a schedule II o... Start Date: 03/12/21 Stop Date: 03/07/22 Status: Ordered magnesium oxide 400 mg oral tablet 1 tablet = 400 mg, By Mouth, Daily, for 30 days, # 30 tablet, 11 Refills, Acute 03/07/22 16:11:00 EST, 03/12/21 16:11:00 EST, Tablet, [facility]/pharmacy #[id number], Partial fill upon patient [...] Refills, Maintenance, 03/12/21 16:07:00 EST, ER Capsule, [facility]/pharmacy #[id number], Partial fill upon patient [...] 4colo 2004 nl, rpt 2013 5MI 2019 05867; no repeat due to age 7restarted HCTZ; will monitor 8holding hctz ;recheck 9Per discharge note 03/05/21: Long-standing schizoaffective disorder, bipolar type. 10Antibody positive 11thought to be medication related by neurology Diagnosis Diagnosis Type Effective Dates Health Status Cl inical Service Informant (HCC)Schizoaffec tive disorder Discharge Diagnosis 11/27/21 Vital Signs Most recent to oldest [Reference Range]: 1 Height 158 cm (11/27/21 8:19 AM) Weight 64.4 kg (11/27/21 8:19 AM) Oxygen Saturation [94-100 %] 98 % (11/27/21 8:19 AM) Pulse Rate [55-90 bpm] 68 bpm (11/27/21 8:19 AM) Body Mass Index [18.5-24.99 kg/m2] 25.8 kg/m2 *H* (11/27/21 8:19 AM) Blood Pressure [90-138/55-84 mm Hg] 128/ 70mm Hg (11/27/21 8:19 AM) Respiratory Rate [16-30 br/min] 20 br/mi n (11/27/21 8:19 AM) Mode of Delivery (Oxygen) Room air (11/27/21 8:19 AM) Blood pressure sites Arm, left (11/27/21 8:19 AM) Weight Obtained Via Standing scale (11/27/21 8:19 AM) Social History Social History Type Response Smoking Status Never (less than 100 in lifetime) entered on: 12/02/20 Sex Patient Care team information Personnel Name: Jaci GOLD, Garrison Swan Address: Address: [address] [place] [id number] [[email or web address]]
--- OUTSIDE RECORDS SUMMARY | 2024-01-05 22:56 | XMS_ITS | Continuity of Care Document ---
Author Organization [facility] Address [address] [place] [address]- Care Team Providers Care K9 Handler Name Role Phone Garrison Beatty MD Primary Care Physician Encounter [facility] Date(s): 11/15/19 - 11/22/19 [facility] Adult [address] [place] [address]- [facility] Attending Physician: Josias Hensley MD Allergies, Adverse Reactions, Alerts Substance Reaction [...] Vaccine (oldterm) 03/08/00 Given 1Result Comment: [12/09/2017] [id number] 2Result Comment: [04/15/2015 Uncharted] Pt had influenza vaccine 12/12/15- 3Admin Note: PT had the flu shot done at [facility] Flu clinic 4Admin Note: GIVEN IN CL[facility]IC [facility] 5Admin Note: [employer] [facility] 6Admin Note: [employer] [facility] 7Admin Note: GIVEN AT OUTSIDE CLINIC 8Admin [...] tablet, Refills 11, Tot. Refills 11, Maintenance, 08/21/19 14:11:00 EDT, Route to Pharmacy Electronically, [facility]/pharmacy #[id number], 155.5, cm, 08/21/19 13:49:00 EDT, Height Start Date: 08/21/19 Stop Date: 08/15/20 Status: Ordered Multivitamin 1 tablet, By Mouth, [...] tablet, 11 Refills, Maintenance, 08/21/19 14:11:00 EDT, [facility]/pharmacy #[id number], 155.5, cm, 08/21/19 13:49:00 EDT, Height [...] colo 2008 4colo 2003 nl, rpt 2013 18525; no repeat due to age 6restarted HCTZ; will monitor 7holding hctz ;recheck 8Antibody positive 9thought to be medication related by neurology Vital Signs Most recent to oldest [Reference Range]: 1 Height 155.5 cm (11/15/19 1:50 PM) Weight 61.7 kg (11/15/19 1:50 PM) Oxygen Saturation [94-100 %] 99 % (11/15/19 1:50 PM) Pulse Rate [55-90 bpm] 80 bpm (11/15/19 1:50 PM) Body Mass Index [18.5-24.99] 25.52 *H* (11/15/19 1:50 PM) Blood Pressure [90-138/55-84 mm Hg] 120/ 78mm Hg (11/15/19 1:50 PM) Temperature [96.8-100.4 DegF] 98.4 DegF (11/15/19 1:50 PM) Mode of Delivery (Oxygen) Room air (11/15/19 1:50 PM) Blood pressure sites Arm, left (11/15/19 1:50 PM) Temperature Route Oral (11/15/19 1:50 PM) Weight Obtained Via Standing scale (11/15/19 1:50 PM) Social History Social History Type Response Smoking Status Never smoker; Tobacc o user in household: No entered on: 07/05/14 Sex
--- OUTSIDE RECORDS SUMMARY | 2024-01-05 22:56 | XMS_ITS | Continuity of Care Document ---
Author Organization [facility] Address [address] [address]- Care Team Providers Care Supervisor Pipe Joints Name Role Phone Garrison Beatty MD Primary Care Physician Encounter [facility] Date(s): 04/02/20 - 05/02/20 [facility] [address] [place] [address]- Allergies, Adverse Reactions, Alerts Substance Reaction Severity [...] 06/06/09 Given influ virus vac, H1N1, inactive(oldterm) 03/18/09 Given influ virus vac, H1N1, inactive(oldterm) 8 03/18/09 Given Tetanus Toxoid Vaccine (oldterm) 03/08/00 Given 1Result Comment: [12/09/2017] [id number] 2Result Comment: [04/15/2015 Uncharted] Pt had influenza vaccine 12/12/15- 3Admin Note: PT had the flu shot done at [facility] Flu clinic 4Admin Note: GIVEN IN [facility] 5Admin Note: [employer] [facility] 6Admin Note: [employer] [facility] 7Admin Note: GIVEN [...] 04/29/20 7:44:00 EST, Route to Pharmacy Electronically, [facility] 76094, 160, cm, 04/25/20 9:48:00 EST, Height, 62, [...] 9:22:00 EST, Route to Pharmacy Electronically, [facility]/pharmacy #[id number], Partial fill upon patient requestif the prescription is for a schedule II opioid symone... Start Date: 04/29/20 Stop Date: 04/24/21 Status: Ordered lisinopril 5 mg oral tablet 5 mg, 1, tablet, By Mouth, Daily, # 30 tablet, Refills 3, Tot. Refills 3, Maintenance, 04/25/20 10:36:00 EST, Route to Pharmacy Electronically, [facility]/pharmacy #[id number], Partial fill upon patient [...] 10:44:00 EST, Route to Pharmacy Electronically, [facility]/pharmacy #[id number], Partial fill upon patient request if the prescription is for a schedule II opioid drug... Start Date: 03/20/20 Status: Ordered potassium chloride 10 mEq oral tablet, extended release 2 tablet = 20 mEq, By Mouth, Daily in AM, # 60 tablet, 5 Refills, Maintenance, 04/29/20 9:23:00 EST, ER Tablet, [facility]/pharmacy #[id number], Partial fill upon patient [...] 4colo 2003 nl, rpt 2013 5MI 2019 83530; no repeat due to age 7restarted HCTZ; will monitor 8holding hctz ;recheck 9Antibody positive 10thought to be medication related by neurology Social History Social History Type Response Smoking Status Never smoker; Tobacc o user in household: No entered on: 07/05/14 Sex
--- OUTSIDE RECORDS SUMMARY | 2024-01-05 22:56 | XMS_ITS | Continuity of Care Document ---
Author Organization [facility] Address [address] [place] [address]- Care Team Providers Care Boxing Promoter Name Role Phone Jaci GOLD, Garrison Swan Primary Care Physician [phone] Encounter [facility] Date(s): 10/16/21 - 02/13/22 [facility] [address] [place], [place] [address] Attending Physician: Darryn Ledezma MD Admitting Physician: Darryn Ledezma MD Referring Physician: Garrison Beatty MD Allergies, [...] 23-valent vaccine 6 07/29/21 Given SARS-CoV-2 mRNA (qalkqab-gtpp-wqjsd) vax 06/21/21 Recorded SARS-CoV-2 (COVID-19) mRNA BNT-162b2 [...] Toxoid Vaccine (oldterm) 03/08/00 Given 1Result Comment: [facility]# [id number] 2Result Comment: [12/09/2017] [id number] 3Result Comment: [04/15/2015 Uncharted] Pt had influenza vaccine 12/12/15- 4Admin Note: PT had the flu shot done at [facility] Flu clinic 5Admin Note: GIVEN IN [facility] 6Result Comment: [facility]# [id number] 7Admin Note: [employer] [facility] 8Admin Note: [employer] [facility] 9Admin Note: GIVEN AT OUTSIDE CLINIC 10Admin Note: per pt rcvd elsewhere Medications amLODIPine 5 mg oral tablet See Instructions, TAKE 1 TABLET BY MOUTH EVERY DAY, # 30 tablet, 5 Refills, Maintenance, 01/01/22 15:18:00 EDT, [facility], 158, cm, 11/27/21 8:19:00 EDT, Height, 63, [...] 02/02/22 16:34:00 EST, [id number] fill upon patient request if the prescription is for a schedule II... Start Date: 02/02/22 Status: Ordered clopidogrel 75 mg oral tablet 1, tablet, By Mouth, Daily, # 30 tablet, Refills 0, Maintenance, 11/06/21 16:29:00 EDT, Route to Pharmacy Electronically, [facility] 11497, 158, cm, 10/02/21 9:27:00 EDT, Height, 63, kg, 07/28/21 1:38:00 EDT, Dry Weight Start Date: 11/06/21 Status: Ordered donepezil 5 mg oral tablet See Instructions, TAKE 1 TABLET BY MOUTH AT BEDTIME, # 30 tablet, Refills 5, Tot. Refills 5, 01/23/22 15:56:00 EST, Instructions Replace Required Details, [id number], cm, 01/21/22 13:27:00 EST, Height, 63... Start Date: 01/23/22 Status: Ordered Lasix 40 mg oral tablet 40 mg, 1, tablet, By Mouth, Daily, # 30 tablet, Refills 11, Tot. Refills 11, Maintenance, 03/12/21 16:08:00 EST, [id number] Partial fill upon patient request if the prescription is for a schedule II opioid dr... Start Date: 03/12/21 Stop Date: 03/07/22 Status: Ordered lisinopril 10 mg oral tablet 10 mg, 1, tablet, By Mouth, 2 times a day, # 180 tablet, Refills 3, Tot. Refills 3, Maintenance, 03/07/22 16:09:00 EST, [id number] Partial fill upon patientrequest if the prescription is for a schedule II op... Start Date: 03/07/22 Status: Ordered magnesium oxide 400 mg oral tablet 1 tablet = 400 mg, By Mouth, Daily, for 30 days, # 30 tablet, 11 Refills, Acute 03/07/22 16:11:00 EST, 03/12/21 16:11:00 EST, Tablet, [facility]/pharmacy #[id number], Partial fill upon patient request [...] 01/23/22 15:28:00 EST, ER Capsule, [facility]/pharmacy #[id number], Partial fill upon patient request [...] 4colo 2004 nl, rpt 2013 5MI 2019 56593; no repeat due to age 7restarted HCTZ; will monitor 8holding hctz ;recheck 9Per discharge note 03/05/21: Long-standing schizoaffective disorder, bipolar type. 10Antibody positive 11thought to be medication related by neurology Social History Social History Type Response Smoking Status Never (less than 100 in lifetime) entered on: 12/02/20 Sex Patient Care team information Care Team Personnel Name: Carley Vazquez RN Position: [facility] RN Member Role: Primary Care Nurse Name: Annia Iniguez NP Position: [facility] Associate Professional Member Role: Primary Care Nurse Address: Address: [address] [place] [address]- [place] Name: Garrison Beatty MD Position: [facility] Primary Care Physician Member Role: PCP Address: Address: [address] [place] [address]- [place] Name: David Knapp MD Position: [facility] Renal MD Member Role: Lifetime Consulting Physician Address: Address: [address] [facility] [address] [facility] [place] [address]- Name: Amy COONEY, Zabrina Position: [facility] RN Member Role: Primary Care Nurse Name: Melissa Ugarte RN Position: S RN Member Role: Primary Care Nurse Care Team Related Persons Name: LIVIA MAXWELL Address: [address] [address] Name: DINA MAXWELL Address: [place] [address]
--- OUTSIDE RECORDS SUMMARY | 2024-01-05 22:56 | XMS_ITS | Continuity of Care Document ---
Author Organization [facility] ter Address [address] [place] [address]- Care Team Providers Care Systems Navigator Name Role Phone Garrison Beatty MD Primary Care Physician Encounter [facility] Date(s): 05/18/20 - 05/18/[address] [address]- Encounter Diagnosis Unspecified abdominal pain(Final) - 05/18/20 Discharge Disposition: A-D/C Home Attending Physician: Chana Francois DO Admitting Physician: Chana Francois DO Referring Physician: Not on Staff, Referring MD [...] Vaccine (oldterm) 03/08/00 Given 1Result Comment: [12/09/2017] [id number] 2Result Comment: [04/15/2015 Uncharted] Pt had influenza vaccine 12/12/15- 3Admin Note: PT had the flu shot done at [facility] Flu clinic 4Admin Note: GIVEN IN CLINIC [facility] 5Admin Note: [employer] [facility] 6Admin Note: [employer] [facility] 7Admin Note: GIVEN AT OUTSIDE CLINIC 8Admin [...] 04/29/20 7:44:00 EST, Route to Pharmacy Electronically, [facility] 18[facility], 160, cm, 04/25/20 9:48:00 EST, Height, 62, [...] 04/29/20 9:22:00 EST, Route to Pharmacy Electronically, [facility]/pharmacy #[id number], Partial fill upon patient requestif the prescription is for a schedule II opioid symone... Start Date: 04/29/20 Stop Date: 04/24/21 Status: Ordered lisinopril 5 mg oral tablet 5 mg, 1, tablet, By Mouth, Daily, # 30 tablet, Refills 3, Tot. Refills 3, Maintenance, 04/25/20 10:36:00 EST, Route to Pharmacy Electronically, [facility]/pharmacy #[id number], Partial fill upon patient request if [...] 03/20/20 10:44:00 EST, Route to Pharmacy Electronically, [facility]/pharmacy #[id number], Partial fill upon patient request if the prescription is for a schedule II opioid drug... Start Date: 03/20/20 Status: Ordered potassium chloride 10 mEq oral tablet, extended release 2 tablet = 20 mEq, By Mouth, Daily in AM, # 60 tablet, 5 Refills, Maintenance, 04/29/20 9:23:00 EST, ER Tablet, [facility]/pharmacy #7111, Partial fill upon patient request if [...] 4colo 2003 nl, rpt 2013 5MI 2019 91201; no repeat due to age 7restarted HCTZ; will monitor 8holding hctz ;recheck 9Antibody positive 10thought to be medication related by neurology Vital Signs Most recent to oldest [Reference Range]: 1 2 3 Oxygen Saturation [94-100 %] 100 % (05/18/20 10:15 PM) 100 % (05/18/20 8:00 PM) 98 % (05/18/20 6:29 PM) Pulse Rate [55-90 bpm] 65 bpm (05/18/20 10:15 PM) 62 bpm (05/18/20 8:00 PM) 62 bpm (05/18/20 6:29 PM) Blood Pressure [90-138/55-84 mm Hg] 145/70mm Hg *H* (05/18/20 10:15 PM) 157/74mm Hg *H* (05/18/20 8:00 PM) 112/85mm Hg (05/18/20 6:29 PM) Respiratory Rate [16-30 br/min] 16 br/min (05/18/20 10:15 PM) 17 br/min (05/18/20 8:00 PM) 18 br/min (05/18/20 6:29 PM) Temperature [96.8-100.4 DegF] 98.8 DegF (05/18/20 10:15 PM) 98.9 DegF (05/18/20 8:00 PM) 98.7 DegF (05/18/20 11:54 AM) Mode of Delivery (Oxygen) Room air (05/18/20 10:15 PM) Room air (05/18/20 8:00 PM) Room air (05/18/20 6:29 PM) Blood pressure sites Arm, left (05/18/20 10:15 PM) Arm, left (05/18/20 8:00 PM) Arm, left (05/18/20 6:29 PM) Temperature Route Oral (05/18/20 10:15 PM) Oral (05/18/20 8:00 PM) Oral (05/18/20 11:54 AM) Social History Social History Type Response Smoking Status Never smoker; Tobacc o user in household: No entered on: 07/05/14 Sex
--- OUTSIDE RECORDS SUMMARY | 2024-01-05 22:56 | XMS_ITS | Continuity of Care Document ---
Author Organization [facility] Address [address] [address]- Care Team Providers Care Certified Green Building Engineer Name Role Phone Jaci GOLD, Garrison Swan Primary Care Physician [phone] [facility]counter [facility] Date[facility]s): 06[facility]04/20 - 06/11/20 [facility] [address] [place] [address] [place] [address]- Attending Physician: Eduardo GOLD, David Referring Physician: [...] Vaccine (oldterm) 03/08/00 Given 1Result Comment: [12/09/2017] [id number] 2Result Comment: [04/15/2015 Uncharted] Pt had influenza vaccine 12/12/15- 3Admin Note: PT had the flu shot done at [facility] Flu clinic 4Admin Note: GIVEN IN CL[facility] 5Admin Note: [facility] [facility] 6Admin Note: [employer] [facility] 7Admin Note: GIVEN AT OUTSIDE CLINIC 8Admin [...] 04/29/20 7:44:00 EST, Route to Pharmacy Electronically, [facility], 160, cm, 04/25/20 9:48:00 EST, Height, 62, [...] 9:22:00 EST, Route to Pharmacy Electronically, [facility]/pharmacy #[id number], Partial fill upon patient requestif the prescription is for a schedule II opioid symone... Start Date: 04/29/20 Stop Date: 04/24/21 Status: Ordered lisinopril 5 mg oral tablet 5 mg, 1, tablet, By Mouth, Daily, # 30 tablet, Refills 3, Tot. Refills 3, Maintenance, 04/25/20 10:36:00 EST, Route to Pharmacy Electronically, [facility]/pharmacy #[id number], Partial fill upon patient request [...] 10:44:00 EST, Route to Pharmacy Electronically, [facility]/pharmacy #[id number], Partial fill upon patient request [...] 4colo 2004 nl, rpt 2013 5MI 2019 23508; no repeat due to age 7restarted HCTZ; will monitor 8holding hctz ;recheck 9Antibody positive 10thought to be medication related by neurology Social History Social History Type Response Smoking Status Never smoker; Tobacc o user in household: No entered on: 07/05/14 Sex
--- OUTSIDE RECORDS SUMMARY | 2024-01-05 22:56 | XMS_ITS | Continuity of Care Document ---
Author Organization [facility] Cayden Ontiveros Yon lt Address [address] [place] [address]- Care Team Providers Care Computer Applications Developer Name Role Phone Garrison Beatty MD Primary Care Physician [phone] Encounter [facility] Date(s): 08/04/22 - 08/11/22 [facility] Adult [address] [place] [address]- Encounter Diagnosis Medicare annual wellness visit, subsequent(Discharge Diagnosis) - 08/04/22 Attending Physician: Garrison Beatty MD Allergies, Adverse Reactions, Alerts Substance Reaction Severity Status cephalexin Active nitrofurantoin Active sulfADIAZINE Ciprofloxacin Active predniSONE SEVERE H/A Active valsartan 1 Active statins MYALGIAS Active 1dizziness Immunizations Given and Recorded Vaccine Date Status Refusal Reason [id number] 12y+ bivalent booster vax 12/13/21 Recorded influenza [...] 23-valent vaccine 6 07/29/21 Given SARS-CoV-2 mRNA (komjrfy-[id number]) vax 06/21/21 Recorded SARS-CoV-2 (COVID-19) mRNA BNT-162b2 [...] Toxoid Vaccine (oldterm) 03/08/00 Given 1Result Comment: [facility]# [id number] 2Result Comment: [12/09/2017] [id number] 3Result Comment: [04/15/2015 Uncharted] Pt had influenza vaccine 12/12/15- 4Admin Note: PT had the flu shot done at [facility] Flu clinic 5Admin Note: GIVEN IN [facility] 6Result Comment: [facility]# [id number] 7Admin Note: [facility] 8Admin Note: [facility] [facility] 9Admin Note: GIVEN AT OUTSIDE CLINIC 10Admin Note: per pt rcvd elsewhere Medications amLODIPine 5 mg oral tablet 1 tablet, By Mouth, Daily, # 30 tablet, 5 Refills, Maintenance, 04/17/22 19:41:00 EST, [facility] ST[facility], 158, cm, 02/27/22 13:27:00 EST, Height, 63, kg, 07/28/21 1:38:00 EDT, Dry Weight Start Date: 04/17/22 Status: Ordered aspirin 81 mg oral delayed release tablet 81 mg, 1, tablet, By Mouth, Daily, # 30 tablet, Refills 5, Tot. Refills 5, Maintenance, 03/26/22 11:58:00 EST, Route to Pharmacy Electronically, [facility]/pharmacy #[id number], Partial fill upon patient request if the prescription is for a schedule II opioid drug... Start Date: 03/26/22 Status: Ordered carvedilol 6.25 mg oral tablet 6.25 mg, 1, tablet, By Mouth, 2 times a day, # 180 tablet, Refills 3, Tot. Refills 3, Maintenance, 02/02/22 16:34:00 EST, Route to Pharmacy Electronically, [facility]/pharmacy #[id number], Partial fill upon patient request if the prescription is for a schedule II... Start Date: 02/02/22 Status: Ordered clopidogrel 75 mg oral tablet 1, tablet, By Mouth, Daily, # 30 tablet, Refills 5, Tot. Refills 5, Maintenance, 03/26/22 11:55:00 EST, Route to Pharmacy Electronically, [facility]/pharmacy #[id number], 158, cm, 02/27/22 13:27:00 EST, Height, 63, kg, 07/28/21 1:38:00 EDT, Dry Weight Start Date: 03/26/22 Status: Ordered Daily Brielle oral tablet 1 tablet, By Mouth, Daily, # 30 tablet, 11 Refills, Maintenance, 03/18/22 11:57:00 EST, [facility], 30, TAKE 1 TABLET BY MOUTH EVERY DAY, 158, cm, 02/27/22 13:27:00 EST, Height, 63, kg, 221:38:00 EDT, Dry Weight Start Date: 03/18/22 Status: Ordered donepezil 5 mg oral tablet 1, tablet, By Mouth, Daily at bedtime, # 30 tablet, Refills 2, Maintenance, 05/25/22 16:50:00 EDT, Route to Pharmacy Electronically, [facility], 158, cm, 02/27/22 13:27:00 EST, Height, 63, kg, 07/28/21 1:38:00 EDT, Dry Weight Start Date: 05/25/22 Status: Ordered High Potency Vitamin D3 25 mcg (1000 intl units) oral capsule 1 capsule = 25 mcg, By Mouth, Daily, # 30 capsule, 5 Refills, Maintenance, 03/26/22 11:54:00 EST, [facility]/pharmacy #[id number], Partial fill upon patient request if the prescription is for a schedule II opioiddrug., 158, cm, 02/27/22 13:27:00 EST, Height, 63,... Start Date: 03/26/22 Status: Ordered Lasix 40 mg oral tablet 40 mg, 1, tablet, By Mouth, Daily, # 30 tablet, Refills 5, Tot. Refills 5, Maintenance, 03/26/22 11:53:00 EST, [facility] 03/07/22 16:09:00 EST, Route to Pharmacy Electronically, [facility]/pharmacy #[id number], Partial fill upon patientrequest [...] 4colo 2004 nl, rpt 2013 5MI 2019 704[address]; no repeat due to age 7restarted HCTZ; will monitor 8holding hctz ;recheck 9Per discharge note 03/05/21: Long-standing schizoaffective disorder, bipolar type. 10Antibody positive 11thought to be medication related by neurology Diagnosis Diagnosis Type Effective Dates Health Status Clinical Service Informant Medicare annual wellness visit, subsequent Discharge Diagnosis 08/04/22 Vital Signs Most recent to oldest [Reference Range]: 1 Height 157.50 cm (08/04/22 8:48 AM) Weight 61.0 kg (08/04/22 8:48 AM) Oxygen Saturation [94-100 %] 97 % (08/04/22 8:48 AM) Pulse Rate [55-90 bpm] 56 bpm (08/04/22 8:48 AM) Body Mass Index [18.5-24.99 kg/m2] 24.59 kg/m2 (08/04/22 8:48 AM) Blood Pressure [90-138/55-84 mm Hg] 132/ 65mm Hg (08/04/22 8:48 AM) Respiratory Rate [16-30 br/min] 16 br/mi n (08/04/22 8:48 AM) Temperature [96.8-100.4 DegF] 97.4 DegF (08/04/22 8:48 AM) Mode of Delivery (Oxygen) Room air (08/04/22 8:48 AM) Blood pressure sites Arm, right (08/04/22 8:48 AM) Temperature Route Oral (08/04/22 8:48 AM) Weight Obtained Via Standing scale (08/04/22 8:48 AM) Social History Social History Type Response Smoking Status Never (less than 100 in lifetime) entered on: 12/02/20 Sex Patient Care team information Care Team Personnel Name: George COONEY, Carley Position: S RN Member Role: Primary Care Nurse Name: Geetha MAYBERRY, Annia Gomes Position: [facility] Associate Professional Member Role: Primary Care Nurse Address: Address: [address] [facility] [place] [address]- [place] Name: Jaci GOLD, Garrison Swan Position: [facility] Physician - Primary Care Member Role: PCP Address: Address: [address] [place] [address]- [place] Name: David Knapp MD Position: [facility] Renal MD Member Role: Lifetime Consulting Physician Address: Address: [address] [place] [address] [address] [facility] [place] [place] [address]- [place] Name: Zabrina Reyes RN Position: S RN Member Role: Primary Care Nurse Name: Melissa Ugarte RN Position: S RN Member Role: Primary Care Nurse Care Team Related Persons Name: LIVIA MAXWELL Address: [address] [place] [address] Name: DINA MAXWELL Address: [address] [place] [address]
--- OUTSIDE RECORDS SUMMARY | 2024-01-05 22:56 | XMS_ITS | Continuity of Care Document ---
Author Organization [facility] ter Address [address] [place] [address]- Care Team Providers Care Dining Car Steward Name Role Phone Garrison Beatty MD Primary Care Physician [phone] [facility]counter [facility] Date(s): 08/12/21 - 10/19/[address] [address] Attending Physician: Garrison Beatty MD Admitting Physician: Garrison Beatty MD Referring Physician: Garrison Beatty MD Allergies, Adverse Reactions, Alerts Substance Reaction Severity Status cephalexin Active nitrofurantoin Active sulfADIAZINE Ciprofloxacin Active valsartan 1 Active Macrobid Active statins MYALGIAS Active predniSONE SEVERE H/A Active 1dizziness Immunizations Given and Recorded Vaccine Date Status Refusal Reason pneumococcal 23-valent vaccine 1 07/29/21 Given SARS-CoV-2 mRNA (zcjkacp-axol-grrvx) vax 06/21/21 Recorded influenza virus vaccine, inactivated [...] Toxoid Vaccine (oldterm) 03/08/00 Given 1Result Comment: [facility]# [id number] 2Result Comment: [12/09/2017] [id number] 3Result Comment: [04/15/2015 Uncharted] Pt had influenza vaccine 12/12/15- 4Admin Note: PT [facility] 5Admin Note: GIVEN IN [facility] 6Admin Note: [employer] [facility] 7Admin Note: [employer] 8Admin Note: GIVEN AT OUTSIDE CLINIC 9Admin Note: per pt rcvd elsewhere Medications amLODIPine 5 mg oral tablet 5 mg, 1, tablet, By Mouth, Daily, # 30 tablet, Refills 11, Tot. Refills 11, Maintenance, 03/12/21 16:13:00 EST, Route to Pharmacy Electronically, [facility]/pharmacy #[id number], Partial fill upon patient requestif the prescription [...] 10/13/21 14:45:00 EDT, [id number] Partial fill upon patient request if the prescription is for a schedule II o... Start Date: 10/13/21 Status: Ordered clopidogrel 75 mg oral tablet 1, tablet, By Mouth, Daily, # 30 tablet, Refills 11, Tot. Refills 11, Maintenance, 03/12/21 16:09:00 EST, [id number], 157, cm, 03/12/21 13:26:00 EST, Height,60, kg, 01/20/21 16:03:00 EST, Dry Weight Start Date: 03/12/21 Status: Ordered donepezil 5 mg oral tablet See Instructions, TAKE 1 TABLET BY MOUTH AT BEDTIME, # 30 tablet, Refills 2, Instructions Replace Required Details, Route to Pharmacy Electronically, [facility] [address], 158, cm, 10/02/21 9:27:00 EDT, Height, 63, kg, 07/28/21 1:38:00 EDT, Dry Weight Start Date: 10/16/21 Status: Ordered Lasix 40 mg oral tablet 40 mg, 1, tablet, By Mouth, Daily, # 30 tablet, Refills 11, Tot. Refills 11, Maintenance, 03/12/21 16:08:00 EST, [id number] Partial fill upon patient request if the prescription is for a schedule II opioid dr... Start Date: 03/12/21 Stop Date: 03/07/22 Status: Ordered lisinopril 10 mg oral tablet 10 mg, 1, tablet, By Mouth, 2 times a day, # 60 tablet, Refills 11, Tot. Refills 11, Maintenance, 03/12/21 16:09:00 EST, [id number] Partial fill upon patient request if the prescription is for a schedule II o... Start Date: 03/12/21 Stop Date: 03/07/22 Status: Ordered magnesium oxide 400 mg oral tablet 1 tablet = 400 mg, By Mouth, Daily, for 30 days, # 30 tablet, 11 Refills, Acute 03/07/22 16:11:00 EST, 03/12/21 16:11:00 EST, Tablet, [facility]/pharmacy #[id number], Partial fill upon patient [...] Refills, Maintenance, 03/12/21 16:07:00 EST, ER Capsule, [facility]/pharmacy #[id number], Partial fill upon patient [...] colon cancer needs colo 2008 4colo 2004 , rpt 2013 5MI 2019 [address]; no repeat due to age 7restarted HCTZ; will monitor 8holding hctz ;recheck 9Per discharge note 03/05/21: Long-standing schizoaffective disorder, bipolar type. 10Antibody positive 11thought to be medication related by neurology Social History Social History Type Response Smoking Status Never (less than 100 in lifetime) entered on: 12/02/20 Sex
--- OUTSIDE RECORDS SUMMARY | 2024-01-05 22:56 | XMS_ITS | Continuity of Care Document ---
Author Organization [facility] Yon lt Address [address] [place] [address]- Care Team Providers Care Dope Pourer Name Role Phone Jaci GOLD, Garrison Swan Primary Care Physician [facility] Date[facility]s): 01/09/22 - 02/08/22 [facility] Adult [address] [place] [address]- Allergies, Adverse Reactions, Alerts Substance Reaction Severity [...] 23-valent vaccine 6 07/29/21 Given SARS-CoV-2 mRNA (exexuji-jtsk-xpcuw) vax 06/21/21 Recorded SARS-CoV-2 (COVID-19) mRNA BNT-162b2 [...] Toxoid Vaccine (oldterm) 03/08/00 Given 1Result Comment: [facility]# [id number] 2Result Comment: [12/09/2017] [id number] 3Result Comment: [04/15/2015 Uncharted] Pt had influenza vaccine 12/12/15- 4Admin Note: PT had the flu shot done at [facility] Flu clinic 5Admin Note: GIVEN IN [facility] 6Result Comment: [facility]# [id number] 7Admin Note: [facility] 8Admin Note: [employer] [facility] 9Admin Note: GIVEN AT OUTSIDE CLINIC 10Admin Note: per pt rcvd elsewhere Medications amLODIPine 5 mg oral tablet See Instructions, TAKE 1 TABLET BY MOUTH EVERY DAY, # 30 tablet, 5 Refills, Maintenance, 01/01/22 15:18:00 EDT, [facility] 701[facility], 158, cm, 11/27/21 8:19:00 EDT, Height, 63, [...] 02/02/22 16:34:00 EST, [id number] fill upon patient request if the prescription is for a schedule II... Start Date: 02/02/22 Status: Ordered clopidogrel 75 mg oral tablet 1, tablet, By Mouth, Daily, # 30 tablet, Refills 0, Maintenance, 11/06/21 16:29:00 EDT, Route to Pharmacy Electronically, [facility] 0[facility]94, 158, cm, 10/02/21 9:27:00 EDT, Height, 63, kg, 07/28/21 1:38:00 EDT, Dry Weight Start Date: 11/06/21 Status: Ordered donepezil 5 mg oral tablet See Instructions, TAKE 1 TABLET BY MOUTH AT BEDTIME, # 30 tablet, Refills 5, Tot. Refills 5, 01/23/22 15:56:00 EST, Instructions Replace Required Details, [id number], cm, 01/21/22 13:27:00 EST, Height, 63... Start Date: 01/23/22 Status: Ordered Lasix 40 mg oral tablet 40 mg, 1, tablet, By Mouth, Daily, # 30 tablet, Refills 11, Tot. Refills 11, Maintenance, 03/12/21 16:08:00 EST, [id number] Partial fill upon patient request if the prescription is for a schedule II opioid dr... Start Date: 03/12/21 Stop Date: 03/07/22 Status: Ordered lisinopril 10 mg oral tablet 10 mg, 1, tablet, By Mouth, 2 times a day, # 180 tablet, Refills 3, Tot. Refills 3, Maintenance, 03/07/22 16:09:00 EST, [id number] fill upon patientrequest if the prescription is for a schedule II op... Start Date: 03/07/22 Status: Ordered magnesium oxide 400 mg oral tablet 1 tablet = 400 mg, By Mouth, Daily, for 30 days, # 30 tablet, 11 Refills, Acute 03/07/22 16:11:00 EST, 03/12/21 16:11:00 EST, Tablet, [facility]/pharmacy #[id number], Partial fill upon patient request if [...] Refills, Maintenance, 01/23/22 15:28:00 EST, ER Capsule, [facility]/pharmacy #[id number], Partial fill upon patient request if [...] 4colo 2004 nl, rpt 2013 5MI 2019 09136; no repeat due to age 7restarted HCTZ; [...] Member Role: Primary Care Nurse Address: Address: [address] [place] [address]- [place] Name: Garrison Beatty MD Position: [facility] Primary Care Physician Member Role: PCP Address: Address: [address] [place] [address]- [place] Name: David Knapp MD Position: [facility] Renal MD Member Role: Lifetime Consulting Physician Address: Address: [address] [facility] [place] [address]- [place] Name: Zabrina Reyes RN Position: [facility] RN Member Role: Primary Care Nurse Name: Torito COONEY, Melissa Position: [facility] RN Member Role: Primary Care Nurse Care Team Related Persons Name: LIVIA MAXWELL Address: [address] [address] Name: DINA MAXWELL Address: [address] [address]
--- OUTSIDE RECORDS SUMMARY | 2024-01-05 22:56 | XMS_ITS | Continuity of Care Document ---
Author Organization [facility] Yon lt Address [address] [place] [address]- Care Team Providers Care Nurse Office Name Role Phone Jaci GOLD, Garrison Swan Primary Care Physician [facility]s): 07[facility]04[facility]20 - 08/03/20 [facility] Adult [address] [place] [address]- Allergies, Adverse Reactions, Alerts Substance Reaction Severity [...] Vaccine (oldterm) 03/08/00 Given 1Result Comment: [12/09/2017] [id number] 2Result Comment: [04/15/2015 Uncharted] Pt had influenza vaccine 12/12/15- 3Admin Note: PT had the flu shot done at [facility] Flu clinic 4Admin Note: GIVEN IN [facility] 5Admin Note: [facility] 6Admin Note: [facility] [facility] 7Admin Note: GIVEN AT OUTSIDE CLINIC 8Admin Note: per pt rcvd elsewhere Medications carvedilol 3.125 mg oral tablet See Instructions, TAKE 1 TABLET BY MOUTH TWICE A DAY, # 60 tablet, Refills 11, Tot. Refills 11, Maintenance, Instructions Replace Required Details, Route to Pharmacy Electronically, [facility], 160, cm, 07/05/20 7:47:00 EDT, Height, 62, kg, 02/26... Start Date: 07/05/20 Status: Ordered dicyclomine 10 mg oral capsule 1 capsule = 10 mg, By Mouth, 4 times a day, # 56 capsule, 0 Refills, Maintenance, 07/24/20 12:45:00EDT, Capsule, [facility]/pharmacy #[id number], Partial fill upon patient request if the prescription is for a schedule II opioid drug., 160, cm, 07/23/20 12:27:00 E... Start Date: 07/24/20 Stop Date: 08/07/20 Status: Ordered Lasix 40 mg oral tablet 40 mg, 1, tablet, By Mouth, Daily, # 30 tablet, Refills 11, Tot. Refills 11, Maintenance, 04/29/20 9:22:00 EST, Route to Pharmacy Electronically, [facility]/pharmacy #7111, Partial fill upon patient [...] 03/20/20 10:44:00 EST, Route to Pharmacy Electronically, [facility]/pharmacy #[id number], Partial fill upon patient request if the prescription is for a schedule II opioid drug... Start Date: 03/20/20 Status: Ordered potassium chloride 10 mEq oral tablet, extended release 2 tablet = 20 mEq, By Mouth, Daily in AM, # 60 tablet, 5 Refills, Maintenance, 04/29/20 9:23:00 EST, ER Tablet, [facility]/pharmacy #[id number], Partial fill upon patient request if the prescription is for a schedule II opioid drug., 160, cm, 04/29/20 8:53:00 EST,... Start Date: 04/29/20 Status: Ordered sacubitril-valsartan 24 mg-26 mg oral tablet 1 tablet, By Mouth, 2 times a day, Take one tablet by mouth twice daily, # 60 tablet, 6 Refills, Maintenance, 07/23/20 14:14:00 EDT, Tablet, [facility]/pharmacy #[id number], replaces valsartan, 1 tablet By Mouth [...] 4colo 2004 nl, rpt 2013 5MI 2019 51097; no repeat due to age 7restarted HCTZ; will monitor 8holding hctz ;recheck 9Antibody positive 10thought to be medication related by neurology Social History Social History Type Response Smoking Status Never smoker; Tobacc o user in household: No entered on: 07/05/14 Sex
--- OUTSIDE RECORDS SUMMARY | 2024-01-05 22:56 | XMS_ITS | Continuity of Care Document ---
Author Organization [facility] Address [address] [place] [address]- Care Team Providers Care Biology Intern Name Role Phone Jaci GOLD, Garrison Swan Primary Care Physician [facility] Date[facility]s): 01/26/22 - 02/25/22 [facility] [place] Adult [address] [place] [address]- Allergies, Adverse Reactions, Alerts Substance Reaction Severity [...] 23-valent vaccine 6 07/29/21 Given SARS-CoV-2 mRNA (pirdxbv-fulf-zruaa) vax 06/21/21 Recorded SARS-CoV-2 (COVID-19) mRNA BNT-162b2 [...] Comment: [facility]# [id number] 2Result Comment: [12/09/2017] [id number] 3Result Comment: [04/15/2015 Uncharted] Pt had influenza vaccine 12/12/15- 4Admin Note: PT had the flu shot done at [facility] Flu clinic 5Admin Note: GIVEN IN CL[facility]IC [facility] 6Result Comment: [facility]# [id number] 7Admin Note: [facility] 8Admin Note: [facility] 9Admin Note: GIVEN AT OUTSIDE CLINIC 10Admin Note: per pt rcvd elsewhere Medications amLODIPine 5 mg oral tablet See Instructions, TAKE 1 TABLET BY MOUTH EVERY DAY, # 30 tablet, 5 Refills, Maintenance, 01/01/22 15:18:00 EDT, [facility]5826, 158, cm, 11/27/21 8:19:00 EDT, Height, 63, [...] 02/02/22 16:34:00 EST, [id number] Partial fill upon patient request if the prescription is for a schedule II... Start Date: 02/02/22 Status: Ordered clopidogrel 75 mg oral tablet 1, tablet, By Mouth, Daily, # 30 tablet, Refills 0, Maintenance, 11/06/21 16:29:00 EDT, Route to Pharmacy Electronically, [facility] STORE 12330, 158, cm, 10/02/21 9:27:00 EDT, Height, 63, kg, 07/28/21 1:38:00 EDT, Dry Weight Start Date: 11/06/21 Status: Ordered donepezil 5 mg oral tablet See Instructions, TAKE 1 TABLET BY MOUTH AT BEDTIME, # 30 tablet, Refills 5, Tot. Refills 5, 01/23/22 15:56:00 EST, Instructions Replace Required Details, [id number], 158, cm, 01/21/22 13:27:00 EST, Height, 63... Start Date: 01/23/22 Status: Ordered Lasix 40 mg oral tablet 40 mg, 1, tablet, By Mouth, Daily, # 30 tablet, Refills 11, Tot. Refills 11, Maintenance, 03/12/21 16:08:00 EST, [facility], [id number], Partial fill upon patient request if the prescription is for a schedule II opioid dr... Start Date: 03/12/21 Stop Date: 03/07/22 Status: Ordered lisinopril 10 mg oral tablet 10 mg, 1, tablet, By Mouth, 2 times a day, # 180 tablet, Refills 3, Tot. Refills 3, Maintenance, 03/07/22 16:09:00 EST, [facility], [id number], Partial fill upon patientrequest if the prescription is for a schedule II op... Start Date: 03/07/22 Status: Ordered magnesium oxide 400 mg oral tablet 1 tablet = 400 mg, By Mouth, Daily, for 30 days, # 30 tablet, 11 Refills, Acute 03/07/22 16:11:00 EST, 03/12/21 16:11:00 EST, Tablet, [facility]/pharmacy #[id number], Partial fill upon patient [...] Refills, Maintenance, 01/23/22 15:28:00 EST, ER Capsule, [facility]/pharmacy #[id number], Partial fill upon patient [...] 4colo 2004 nl, rpt 2013 5MI 2019 30731; no repeat due to age 7restarted HCTZ; [...] Care Nurse Name: Annia Iniguez NP Position: [facility] Associate Professional Member Role: Primary Care Nurse Address: Address: [address] [place] [address]- [place] Name: Garrison Beatty MD Position: [facility] Primary Care Physician Member Role: PCP Address: Address: [address] [place] [address]- [place] Name: David Knapp MD Position: [facility] Renal MD Member Role: Lifetime Consulting Physician Address: Address: [address] [facility] [place] [address]- [place] Name: Zabrina Reyes RN Position: [facility] RN Member Role: Primary Care Nurse Name: Torito COONEY, Melissa Position: [facility] RN Member Role: Primary Care Nurse Care Team Related Persons Name: LIVIA MAXWELL Address: [address] [address] Name: DINA MAXWELL Address: [address] [address]
--- OUTSIDE RECORDS SUMMARY | 2024-01-05 22:56 | XMS_ITS | Continuity of Care Document ---
Author Organization [facility] Address [address] [place] [address]- Care Team Providers Care Brimmer Blocker Name Role Phone Garrison Beatty MD Primary Care Physician [phone] Encounter [facility] Date(s): 07/10/20 - 08/09/20 [facility] [address] [place] [address]- Allergies, Adverse Reactions, Alerts Substance Reaction Severity [...] Vaccine (oldterm) 03/08/00 Given 1Result Comment: [12/09/2017] [id number] 2Result Comment: [04/15/2015 Uncharted] Pt had influenza vaccine 12/12/15- 3Admin Note: PT had the flu shot done at [facility] Flu clinic 4Admin Note: [facility] 5Admin Note: [employer] [facility] 6Admin Note: [employer] [facility] 7Admin Note: GIVEN AT OUTSIDE CLINIC 8Admin Note: per pt rcvd elsewhere Medications carvedilol 6.25 mg oral tablet 6.25 mg, 1, tablet, By Mouth, 2 times a day, # 60 tablet, Refills 11, Tot. Refills 11, Maintenance,08/07/20 13:57:00 EDT, Route to Pharmacy Electronically, [facility]/pharmacy #[id number], Partial fill upon patient request if [...] 0 Refills, Maintenance, 07/24/20 12:45:00EDT, Capsule, [facility]/pharmacy #[id number], Partial fill upon patient request if the prescription is for a schedule II opioid drug., 160, cm, 07/23/20 12:27:00 E... Start Date: 07/24/20 Stop Date: 08/07/20 Status: Ordered Lasix 40 mg oral tablet 40 mg, 1, tablet, By Mouth, Daily, # 30 tablet, Refills 11, Tot. Refills 11, Maintenance, 04/29/20 9:22:00 EST, Route to Pharmacy Electronically, [facility]/pharmacy #[id number], Partial fill upon patient requestif the [...] to Pharmacy Electronically, [facility]/pharmacy #[id number], Partial fill upon patient request if [...] Refills, Maintenance, 08/09/20 13:00:00 EDT, Tablet, [facility]/pharmacy #[id number], Partial fill upon patient request if [...] 4colo 2004 nl, rpt 2013 5MI 2019 654[address]; no repeat due to age 7restarted HCTZ; will monitor 8holding hctz ;recheck 9Antibody positive 10thought to be medication related by neurology Social History Social History Type Response Smoking Status Never smoker; Tobacc o user in household: No entered on: 07/05/14 Sex
--- OUTSIDE RECORDS SUMMARY | 2024-01-05 22:56 | XMS_ITS | Continuity of Care Document ---
Author Organization [facility] Address [address] [place] [address]- Care Team Providers Care Ad Copy Writer Name Role Phone Garrison Beatty MD Primary Care Physician Encounter [facility] Date(s): 02/06/21 - 03/08/21 [facility] [address] [place] [address]- [place] Allergies, Adverse Reactions, Alerts Substance Reaction [...] Vaccine (oldterm) 03/08/00 Given 1Result Comment: [12/09/2017] [id number] 2Result Comment: [04/15/2015 Uncharted] Pt had influenza vaccine 12/12/15- 3Admin Note: PT had the flu shot done at [facility] Flu clinic 4Admin Note: GIVEN IN [facility] 5Admin Note: [employer] [facility] 6Admin Note: [employer] [facility] 7Admin Note: GIVEN AT OUTSIDE CLINIC 8Admin [...] Maintenance,08/07/20 13:57:00 EDT, Route to Pharmacy Electronically, [facility]/pharmacy #[id number], Partial fill upon patient request if the prescription is for a schedule II... Start Date: 08/07/20 Stop Date: 08/02/21 Status: Ordered clopidogrel 75 mg oral tablet 1, tablet, By Mouth, Daily, # 30 tablet, Refills 5, Tot. Refills 0, Maintenance, 10/04/20 11:01:00 EDT, Route to Pharmacy Electronically, [facility] STORE 82625, 160, cm, 08/30/20 13:24:00 EDT, Height, 56.5, kg, 07/18/20 15:54:00 EDT, Dry Weight Start Date: 10/04/20 Status: Ordered Lasix 40 mg oral tablet 40 mg, 1, tablet, By Mouth, Daily, # 30 tablet, Refills 11, Tot. Refills 11, Maintenance, 04/29/20 9:22:00 EST, Route to Pharmacy Electronically, [facility]/pharmacy #[id number], Partial fill upon patient requestif the prescription is for a schedule II opioid symone... Start Date: 04/29/20 Stop Date: 04/24/21 Status: Ordered lisinopril 2.5 mg oral tablet 2.5 mg, 1, tablet, By Mouth, Daily, # 30 tablet, Refills 11, Tot. Refills 11, Maintenance, 10/25/2111:27:00 EDT, [id number], [facility] fill upon patient request [...] 4colo 2004 nl, rpt 2013 5MI 2019 [address]; no repeat due to age 7restarted HCTZ; will monitor 8holding hctz ;recheck 9Antibody positive 10thought to be medication related by neurology Social History Social History Type Response Smoking Status Never (less than 100 in lifetime) entered on: 12/02/20 Sex
--- OUTSIDE RECORDS SUMMARY | 2024-01-05 22:56 | XMS_ITS | Continuity of Care Document ---
Author Organization [facility] Address [address] [place] [address]- Care Team Providers Care Graphics Programmer Name Role Phone Garrison Beatty MD Primary Care Physician [phone] Encounter [facility] Date(s): 03/13/21 - 04/12/21 [facility] [address] [place] [address]- [place] Allergies, Adverse Reactions, Alerts Substance Reaction [...] Vaccine (oldterm) 03/08/00 Given 1Result Comment: [12/09/2017] [id number] 2Result Comment: [04/15/2015 Uncharted] Pt had influenza vaccine 12/12/15- 3Admin Note: PT had the flu shot done at [facility] Flu [facility] 4Admin Note: GIVEN IN CLINIC [facility] 5Admin Note: [facility] 6Admin Note: [facility] 7Admin Note: GIVEN AT OUTSIDE CLINIC 8Admin Note: per pt rcvd elsewhere Medications amLODIPine 5 mg oral tablet 5 mg, 1, tablet, By Mouth, Daily, # 30 tablet, Refills 11, Tot. Refills 11, Maintenance, 03/12/21 16:13:00 EST, Route to Pharmacy Electronically, [facility]/pharmacy #[id number], Partial fill upon patient requestif the prescription is for a schedule II opioid symone... Start Date: 03/12/21 Status: Ordered Aricept 5 mg oral tablet 5 mg, 1, tablet, By Mouth, Daily at bedtime, # 30 tablet, Refills 11, Tot. Refills 11, Maintenance,03/12/21 16:10:00 EST, Route to Pharmacy Electronically, [facility]/pharmacy #[id number], Partial fill upon [...] Maintenance,03/12/21 16:08:00 EST, Route to Pharmacy Electronically, [facility]/pharmacy #[id number], Partial fill upon patient request if the prescription is for a schedule II... Start Date: 03/12/21 Status: Ordered clopidogrel 75 mg oral tablet 1, tablet, By Mouth, Daily, # 30 tablet, Refills 11, Tot. Refills 11, Maintenance, 03/12/21 16:09:00 EST, Route to Pharmacy Electronically, [facility]/pharmacy #[id number], 157, cm, 03/12/21 13:26:00 EST, Height,60, kg, 01/20/21 16:03:00 EST, Dry Weight Start Date: 03/12/21 Status: Ordered Lasix 40 mg oral tablet 40 mg, 1, tablet, By Mouth, Daily, # 30 tablet, Refills 11, Tot. Refills 11, Maintenance, 03/12/21 16:08:00 EST, Route to Pharmacy Electronically, [facility]/pharmacy #[id number], Partial fill upon patient request if the prescription is for a schedule II opioid dr... Start Date: 03/12/21 Stop Date: 03/07/22 Status: Ordered lisinopril 10 mg oral tablet 10 mg, 1, tablet, By Mouth, 2 times a day, # 60 tablet, Refills 11, Tot. Refills 11, Maintenance, 03/12/21 16:09:00 EST, Route to Pharmacy Electronically, [facility]/pharmacy #[id number], Partial fill upon patient request if the prescription is for a schedule II o... Start Date: 03/12/21 Stop Date: 03/07/22 Status: Ordered magnesium oxide 400 mg oral tablet 1 tablet = 400 mg, By Mouth, Daily, for 30 days, # 30 tablet, 11 Refills, Acute 03/07/22 16:11:00 EST, 03/12/21 16:11:00 EST, Tablet, [facility]/pharmacy #[id number], Partial fill upon [...] Refills, Maintenance, 03/12/21 16:07:00 EST, ER Capsule, [facility]/pharmacy #[id number], Partial fill upon [...] 4colo 2004 nl, rpt 2013 5MI 2019 [address]; no repeat due to age 7restarted HCTZ; will monitor 8holding hctz ;recheck 9Antibody positive 10thought to be medication related by neurology Social History Social History Type Response Smoking Status Never (less than 100 in lifetime) entered on: 12/02/20 Sex
--- OUTSIDE RECORDS SUMMARY | 2024-01-05 22:56 | XMS_ITS | Continuity of Care Document ---
Author Organization [facility] Address [address] [place] [address]- Care Team Providers Care Educational Assistant Name Role Phone Jaci GOLD, Garrison Swan Primary Care Physician [facility] Date(s): 07/21/23 - 08/20/23 [facility] [address] [place] [address]- Allergies, Adverse Reactions, Alerts Substance Reaction Severity Status cephalexin Active nitrofurantoin Active sulfADIAZINE Ciprofloxacin Active predniSONE SEVERE H/A Active valsartan 1 Active statins MYALGIAS Active 1dizziness Immunizations Given and Recorded Vaccine Date Status Refusal Reason RSV vaccine, preF A-preF B, recombinant 03/23/23 R ecorded SARS-CoV-2(COVID-19)mRNA-LNP vac([id number]) 11/26/22 Recorded influenza virus vaccine, inactivated 11/05/22 [...] virus vaccine, inactivated 3 12/30/05 Gi cyn [id number] 12y+ bivalent booster vax 08/06/22 Recorded [id number] 12y+ bivalent booster vax 12/13/21 Recorded pneumococcal 23-valent vaccine 4 07/29/21 Given SARS-CoV-2 mRNA ([id number]) vax 06/21/21 Recorded SARS-CoV-2 (COVID-19) mRNA BNT-162b2 [...] Toxoid Vaccine (oldterm) 03/08/00 Given 1Result Comment: [facility]# [id number] 2Result Comment: [12/09/2017] [id number] 3Admin Note: GIVEN IN CLINIC [facility] 4Result Comment: [facility]# [id number] 5Admin Note: [facility] 6Admin Note: [facility] 7Admin Note: GIVEN AT OUTSIDE CLINIC 8Admin Note: per pt rcvd elsewhere Medications amLODIPine 5 mg oral tablet 1 tablet, By Mouth, Daily, # 30 tablet, 5 Refills, Maintenance, 03/14/23 14:05:00 EST, [facility] 41250, 157.5, cm, 08/04/22 8:48:00 EDT, Height, 59.5, kg, 06/03/22 14:32:00 EDT, Dry Weight Start Date: 03/14/23 Status: Ordered Aspirin Low Dose 81 mg oral delayed release tablet 1 tablet, By Mouth, Daily, # 30 tablet, 5 Refills, Maintenance, 08/10/23 12:27:00 EDT, [facility], 157.5, cm, 06/22/23 15:03:00 EDT, Height, 59.5, kg, 06/03/22 14:32:00 EDT, Dry Weight Start Date: 08/10/23 Status: Ordered carvedilol 6.25 mg oral tablet 1, tablet, By Mouth, 2 times a day, # 180 tablet, Refills 1, Tot. Refills 1, Maintenance, 07/24/23 15:25:00 EDT, Route to Pharmacy Electronically, [facility]/pharmacy #[id number], 157.5, cm, 06/22/23 15:03:00 EDT, Height, 59.5, kg, 06/03/22 14:32:00 EDT, Dry Weight Start Date: 07/24/23 Status: Ordered Daily Brielle oral tablet 1 tablet, By Mouth, Daily, # 30 tablet, 11 Refills, Maintenance, 02/15/23 12:26:00 EST, [facility] STORE 10280, 30, TAKE 1 TABLET BY MOUTH EVERY DAY, 157.5, cm, 08/04/22 8:48:00 EDT, Height, 59.5, kg, 06/03/22 14:32:00 EDT, Dry Weight Start Date: 02/15/23 Status: Ordered furosemide 40 mg oral tablet 1, tablet, By Mouth, Daily, # 30 tablet, Refills 5, Tot. Refills 5, Maintenance, 03/18/23 7:42:00 EST, [id number] 157.5, cm, 08/04/22 8:48:00 EDT, Height, 59.5, kg, 06/03/22 14:32:00 EDT, Dry Weight Start Date: 03/18/23 Status: Ordered lisinopril 10 mg oral tablet 1, tablet, By Mouth, 2 times a day, # 180 tablet, Refills 3, Maintenance, 01/25/23 11:53:00 EST, Route to Pharmacy Electronically, [facility] STORE 08790, 157.5, cm, 08/04/22 8:48:00 EDT, Height, 59.5, [...] capsule, 3 Refills, Maintenance, 02/11/23 7:48:00 EST, [facility] STORE 82828, 157.5, cm, 08/04/22 8:48:00 EDT, Height, 59.5, kg, 06/03/22 14:32:00 EDT, Dry Weight Start Date: 02/11/23 Status: Ordered Vitamin D3 1000 intl units oral capsule 1 capsule, By Mouth, Daily, # 30 capsule, 5 Refills, Maintenance, 03/14/23 14:05:00 EST, [facility] STORE 77570, 157.5, cm, 08/04/22 8:48:00 EDT, Height, 59.5, [...] 4colo 2004 nl, rpt 2013 5MI 2019 [address]; no repeat due to age 7restarted HCTZ; will monitor 8holding hctz ;recheck 9Per discharge note 03/05/21: Long-standing schizoaffective disorder, bipolar type. 10Antibody positive 11thought to be medication related by neurology Social History Social History Type Response Smoking Status Never (less than 100 in lifetime) entered on: 12/02/20 Sex Patient Care team information Care Team Personnel Name: Zabrina Prince RN Position: [facility] RN Member Role: Primary Care Nurse Name: Carley Vazquez RN Position: [facility] RN Member Role: Primary Care Nurse Name: Geetha MAYBERRY, Annia Gomes Position: [facility] Associate Professional Member Role: Primary Care Nurse Name: Garrison Beatty MD Position: [facility] Physician - Primary Care Member Role: PCP Address: Address: [address] [place] [address]- [place] Name: David Knapp MD Position: [facility] Renal MD Member Role: Lifetime Consulting Physician Address: Address: [address] [place] [address] [address] [facility], [place] [address]- [place] Name: Melissa Ugarte RN Position: [facility] RN Member Role: Primary Care Nurse Care Team Related Persons Name: LIVIA MAXWELL Address: [address] [place] [address] Name: DINA MAXWELL Address: home [address] [place] [address]
--- OUTSIDE RECORDS SUMMARY | 2024-01-05 22:56 | XMS_ITS | Continuity of Care Document ---
Author Organization [facility] Address [address] [place] [address]- Care Team Providers Care Furniture Technician Name Role Phone Jaci GOLD, Garrison Swan Primary Care Physician [phone] [facility]counter [facility] Date[facility]s): 05/07[facility]20 - 06/06/20 [facility] [address] [place] [address]- Allergies, Adverse Reactions, Alerts Substance Reaction Severity [...] Vaccine (oldterm) 03/08/00 Given 1Result Comment: [12/09/2017] [id number] 2Result Comment: [04/15/2015 Uncharted] Pt had influenza vaccine 12/12/15- 3Admin Note: PT had the flu shot done at [facility] Flu clinic 4Admin Note: GIVEN IN CL[facility]IC [facility] 5Admin Note: [facility] 6Admin Note: [facility] [facility] 7Admin Note: GIVEN AT OUTSIDE CLINIC 8Admin [...] 04/29/20 7:44:00 EST, Route to Pharmacy Electronically, [facility]ORE 93740, 160, cm, 04/25/20 9:48:00 EST, Height, 62, [...] 04/29/20 9:22:00 EST, Route to Pharmacy Electronically, [facility]/pharmacy #[id number], Partial fill upon patient requestif the prescription is for a schedule II opioid symone... Start Date: 04/29/20 Stop Date: 04/24/21 Status: Ordered lisinopril 5 mg oral tablet 5 mg, 1, tablet, By Mouth, Daily, # 30 tablet, Refills 3, Tot. Refills 3, Maintenance, 04/25/20 10:36:00 EST, Route to Pharmacy Electronically, [facility]/pharmacy #7111, Partial fill upon patient request [...] 03/20/20 10:44:00 EST, Route to Pharmacy Electronically, [facility]/pharmacy #[id number], Partial fill upon patient request if the prescription is for a schedule II opioid drug... Start Date: 03/20/20 Status: Ordered potassium chloride 10 mEq oral tablet, extended release 2 tablet = 20 mEq, By Mouth, Daily in AM, # 60 tablet, 5 Refills, Maintenance, 04/29/20 9:23:00 EST, ER Tablet, [facility]/pharmacy #7111, Partial fill upon patient request [...] 4colo 2004 nl, rpt 2013 5MI 2019 6[address]; no repeat due to age 7restarted HCTZ; will monitor 8holding hctz ;recheck 9Antibody positive 10thought to be medication related by neurology Social History Social History Type Response Smoking Status Never smoker; Tobacc o user in household: No entered on: 07/05/14 Sex
--- OUTSIDE RECORDS SUMMARY | 2024-01-05 22:57 | XMS_ITS | Continuity of Care Document ---
Author Organization [facility] Address [address] [place] [address]- Care Team Providers Care Animal Behaviorist Name Role Phone Garrison Beatty MD Primary Care Physician [facility] Date(s): 07/15/20 - 08/14/20 [facility] [address] [place] [address]- Allergies, Adverse Reactions, Alerts Substance Reaction Severity [...] Vaccine (oldterm) 03/08/00 Given 1Result Comment: [12/09/2017] [id number] 2Result Comment: [04/15/2015 Uncharted] Pt had influenza vaccine 12/12/15- 3Admin Note: PT had the flu shot done at [facility] Flu clinic 4Admin Note: GIVEN IN CLINIC [facility] 5Admin Note: [facility] [employer] [facility] 6Admin Note: [facility] [employer] [facility] 7Admin Note: GIVEN AT OUTSIDE CLINIC 8Admin Note: per pt rcvd elsewhere Medications carvedilol 6.25 mg oral tablet 6.25 mg, 1, tablet, By Mouth, 2 times a day, # 60 tablet, Refills 11, Tot. Refills 11, Maintenance,08/07/20 13:57:00 EDT, Route to Pharmacy Electronically, [facility]/pharmacy [...] capsule, 0 Refills, Maintenance, 07/24/20 12:45:00EDT, Capsule, [facility]/pharmacy #[id number], Partial fill upon patient request if the prescription is for a schedule II opioid drug., 160, cm, 07/23/20 12:27:00 E... Start Date: 07/24/20 Stop Date: 08/07/20 Status: Ordered Lasix 40 mg oral tablet 40 mg, 1, tablet, By Mouth, Daily, # 30 tablet, Refills 11, Tot. Refills 11, Maintenance, 04/29/20 9:22:00 EST, [facility] 03/20/20 10:44:00 EST, [facility], [facility] 5 Refills, Maintenance, 08/09/20 13:00:00 EDT, Tablet, [facility]/pharmacy #[id number], Partial fill upon [...] 4colo 2004 nl, rpt 2013 5MI 2019 49875; no repeat due to age 7restarted HCTZ; will monitor 8holding hctz ;recheck 9Antibody positive 10thought to be medication related by neurology Social History Social History Type Response Smoking Status Never smoker; Tobacc o user in household: No entered on: 07/05/14 Sex
--- OUTSIDE RECORDS SUMMARY | 2024-01-05 22:57 | XMS_ITS | Continuity of Care Document ---
Author Organization [facility] [place] Address [address] [place] [address]- Care Team Providers Care Manager Academic Name Role Phone Jaci GOLD, Garrison Swan Primary Care Physician [phone] [facility] - 05[facility]08/20 [facility] Adult [address] [place] [address]- Allergies, Adverse Reactions, Alerts Substance Reaction Severity [...] Vaccine (oldterm) 03/08/00 Given 1Result Comment: [12/09/2017] [address]-23 2Result Comment: [04/15/2015 Uncharted] Pt had influenza vaccine 12/12/15- 3Admin Note: PT had the flu shot done at [facility] Flu clinic 4Admin Note: GIVEN IN CL[facility]IC [facility] 5Admin Note: [employer] [facility] 6Admin Note: [facility] [employer] [facility] 7Admin Note: GIVEN AT OUTSIDE CLINIC 8Admin [...] 04/29/20 7:44:00 EST, Route to [facility] Electronically, [facility], 160, cm, 04/25/20 9:48:00 EST, Height, 62, [...] 9:22:00 EST, Route to Pharmacy Electronically, [facility]/pharmacy #[id number], Partial fill upon patient requestif the prescription is for a schedule II opioid symone... Start Date: 04/29/20 Stop Date: 04/24/21 Status: Ordered lisinopril 5 mg oral tablet 5 mg, 1, tablet, By Mouth, Daily, # 30 tablet, Refills 3, Tot. Refills 3, Maintenance, 04/25/20 10:36:00 EST, [facility] Refills, Maintenance, 04/29/20 9:23:00 EST, ER Tablet, [facility]/pharmacy [...] 4colo 2003 nl, rpt 2013 5MI 2019 95558; no repeat due to age 7restarted HCTZ; will monitor 8holding hctz ;recheck 9Antibody positive 10thought to be medication related by neurology Social History Social History Type Response Smoking Status Never smoker; Tobacc o user in household: No entered on: 07/05/14 Sex
--- OUTSIDE RECORDS SUMMARY | 2024-01-05 22:57 | XMS_ITS | Continuity of Care Document ---
Author Organization [facility] Address [address] [place] [address]- Care Team Providers Care Food And Beverage Server Name Role Phone Garrison Beatty MD Primary Care Physician [facility]): 07/11/20 - 08/10/20 [facility] [address] [place] [address]- Allergies, Adverse Reactions, Alerts Substance Reaction Severity [...] Vaccine (oldterm) 03/08/00 Given 1Result Comment: [12/09/2017] [address]-56 2Result Comment: [04/15/2015 Uncharted] Pt had influenza vaccine 12/12/15- 3Admin Note: PT had the flu shot done at [facility] Flu clinic 4Admin Note: GIVEN IN CL[facility]IC [facility] 5Admin Note: [facility] 6Admin Note: [facility] 7Admin Note: GIVEN AT OUTSIDE CLINIC 8Admin Note: per pt rcvd elsewhere Medications carvedilol 6.25 mg oral tablet 6.25 mg, 1, tablet, By Mouth, 2 times a day, # 60 tablet, Refills 11, Tot. Refills 11, Maintenance,08/07/20 13:57:00 EDT, Route to Pharmacy Electronically, [facility]/pharmacy #[id number], Partial fill upon patient [...] capsule, 0 Refills, Maintenance, 07/24/20 12:45:00EDT, Capsule, [facility]/pharmacy #[id number], Partial fill upon patient request if the prescription is for a schedule II opioid drug., 160, cm, 07/23/20 12:27:00 E... Start Date: 07/24/20 Stop Date: 08/07/20 Status: Ordered Lasix 40 mg oral tablet 40 mg, 1, tablet, By Mouth, Daily, # 30 tablet, Refills 11, Tot. Refills 11, Maintenance, 04/29/20 9:22:00 EST, Route to Pharmacy Electronically, [facility]/pharmacy #7111, Partial fill upon patient [...] 03/20/20 10:44:00 EST, Route to Pharmacy Electronically, [facility]/pharmacy #[id number], Partial fill upon patient [...] 5 Refills, Maintenance, 08/09/20 13:00:00 EDT, Tablet, [facility]/pharmacy #[id number], Partial fill upon patient [...] 4colo 2004 nl, rpt 2013 5MI 2019 97696; no repeat due to age 7restarted HCTZ; will monitor 8holding hctz ;recheck 9Antibody positive 10thought to be medication related by neurology Social History Social History Type Response Smoking Status Never smoker; Tobacc o user in household: No entered on: 07/05/14 Sex
--- OUTSIDE RECORDS SUMMARY | 2024-01-05 22:57 | XMS_ITS | Continuity of Care Document ---
Author Organization [facility] Address [address] [place] [address]- Care Team Providers Care Supervisor Scenic Arts Name Role Phone Garrison Beatty MD Primary Care Physician Encounter [facility] Date(s): 05/29/22 - 06/28/22 [facility] [address] [place] [address]- Allergies, Adverse Reactions, Alerts Substance Reaction Severity [...] 23-valent vaccine 6 07/29/21 Given SARS-CoV-2 mRNA (qhzxzrd-qqhj-jgkso) vax 06/21/21 Recorded SARS-CoV-2 (COVID-19) mRNA BNT-162b2 [...] Toxoid Vaccine (oldterm) 03/08/00 Given 1Result Comment: [facility]# [id number] 2Result Comment: [12/09/2017] [id number] 3Result Comment: [04/15/2015 Uncharted] Pt had influenza vaccine 12/12/15- 4Admin Note: PT had the flu shot done at [facility] Flu clinic 5Admin Note: GIVEN IN CLINIC [facility] 6Result Comment: [facility]# [id number] 7Admin Note: [facility] 8Admin Note: [facility] 9Admin Note: GIVEN AT OUTSIDE CLINIC 10Admin Note: per pt rcvd elsewhere Medications amLODIPine 5 mg oral tablet 1 tablet, By Mouth, Daily, # 30 tablet, 5 Refills, Maintenance, 04/17/22 19:41:00 EST, [facility], 158, cm, 02/27/22 13:27:00 EST, Height, 63, kg, 07/28/21 1:38:00 EDT, Dry Weight Start Date: 04/17/22 Status: Ordered aspirin 81 mg oral delayed release tablet 81 mg, 1, tablet, By Mouth, Daily, # 30 tablet, Refills 5, Tot. Refills 5, Maintenance, 03/26/22 11:58:00 EST, Route to Pharmacy Electronically, [facility]/pharmacy #2450, Partial fill upon patient request if the prescription is for a schedule II opioid drug... Start Date: 03/26/22 Status: Ordered carvedilol 6.25 mg oral tablet 6.25 mg, 1, tablet, By Mouth, 2 times a day, # 180 tablet, Refills 3, Tot. Refills 3, Maintenance, 02/02/22 16:34:00 EST, Route to Pharmacy Electronically, [facility]/pharmacy #[id number], Partial fill upon patient request if the prescription is for a schedule II... Start Date: 02/02/22 Status: Ordered clopidogrel 75 mg oral tablet 1, tablet, By Mouth, Daily, # 30 tablet, Refills 5, Tot. Refills 5, Maintenance, 03/26/22 11:55:00 EST, Route to Pharmacy Electronically, [facility]/pharmacy #[id number], 158, cm, 02/27/22 13:27:00 EST, Height, 63, kg, 07/28/21 1:38:00 EDT, Dry Weight Start Date: 03/26/22 Status: Ordered Daily Brielle oral tablet 1 tablet, By Mouth, Daily, # 30 tablet, 11 Refills, Maintenance, 03/18/22 11:57:00 EST, [facility], 30, TAKE 1 TABLET BY MOUTH EVERY DAY, 158, cm, 02/27/22 13:27:00 EST, Height, 63, kg, 221:38:00 EDT, Dry Weight Start Date: 03/18/22 Status: Ordered donepezil 5 mg oral tablet 1, tablet, By Mouth, Daily at bedtime, # 30 tablet, Refills 2, Maintenance, 05/25/22 16:50:00 EDT, Route to Pharmacy Electronically, [facility], 158, cm, 02/27/22 13:27:00 EST, Height, 63, kg, 07/28/21 1:38:00 EDT, Dry Weight Start Date: 05/25/22 Status: Ordered High Potency Vitamin D3 25 mcg (1000 intl units) oral capsule 1 capsule = 25 mcg, By Mouth, Daily, # 30 capsule, 5 Refills, Maintenance, 03/26/22 11:54:00 EST, [facility]/pharmacy #[id number], Partial fill upon patient request if the prescription is for a schedule II opioiddrug., 158, cm, 02/27/22 13:27:00 EST, Height, 63,... Start Date: 03/26/22 Status: Ordered Lasix 40 mg oral tablet 40 mg, 1, tablet, By Mouth, Daily, # 30 tablet, Refills 5, Tot. Refills 5, Maintenance, 03/26/22 11:53:00 EST, Route to Pharmacy Electronically, [facility]/pharmacy #[id number], Partial fill upon patient request if the prescription is for a schedule II opioid drug... Start Date: 03/26/22 Stop Date: 09/22/22 Status: Ordered lisinopril 10 mg oral tablet 10 mg, 1, tablet, By Mouth, 2 times a day, # 180 tablet, Refills 3, Tot. Refills 3, Maintenance, 03/07/22 16:09:00 EST, Route to Pharmacy Electronically, [facility]/pharmacy #[id number], Partial fill upon patientrequest if [...] Refills, Maintenance, 01/23/22 15:28:00 EST, ER Capsule, [facility]/pharmacy #7111, Partial [...] 4colo 2004 nl, rpt 2013 5MI 2019 10918; no repeat due to age 7restarted HCTZ; will monitor 8holding hctz ;recheck 9Per discharge note 03/05/21: Long-standing schizoaffective disorder, bipolar type. 10Antibody positive 11thought to be medication related by neurology Social History Social History Type Response Smoking Status Never (less than 100 in lifetime) entered on: 12/02/20 Sex Patient Care team information Care Team Personnel Name: Carley Vazquez RN Position: [facility] RN Member Role: Primary Care Nurse Name: Annia Iniguez NP Position: [facility] Associate Professional Member Role: Primary Care Nurse Address: Address: [address] [place] [address]- [place] Name: Garrison Beatty MD Position: [facility] Primary Care Physician Member Role: PCP Address: Address: [address] [place] [address]- [place] Name: David Knapp MD Position: [facility] Renal MD Member Role: Lifetime Consulting Physician Address: Address: [address] [facility], [place] [address]- [place] Name: Zabrina Reyes RN Position: [facility] RN Member Role: Primary Care Nurse Name: Melissa Ugarte RN Position: S RN Member Role: Primary Care Nurse Care Team Related Persons Name: LIVIA MAXWELL Address: [address] [place] [address] Name: DINA MAXWELL Address: home [address] [place] [address]
--- OUTSIDE RECORDS SUMMARY | 2024-01-05 22:57 | XMS_ITS | Continuity of Care Document ---
Author Organization [facility] [place] Yon [place] Address [address] [place] [address]- Care Team Providers Care Sheep Herder Name Role Phone Jaci GOLD, Garrison Swan Primary Care Physician [phone] [facility] Date[facility]s): 08/06/23 - 09/05/23 [facility] Adult [address] [place] [address]- Allergies, Adverse Reactions, Alerts Substance Reaction Severity Status cephalexin Active nitrofurantoin Active sulfADIAZINE Ciprofloxacin Active statins MYALGIAS Active predniSONE SEVERE H/A Active valsartan 1 Active 1dizziness Immunizations Given and Recorded Vaccine Date Status Refusal Reason RSV vaccine, preF A-preF B, recombinant 03/23/23 R ecorded SARS-CoV-2(COVID-19)mRNA-LNP vac([id number]) 11/26/22 Recorded influenza virus vaccine, inactivated 11/05/22 [...] virus vaccine, inactivated 3 12/30/05 Gi cyn [id number] 12y+ bivalent booster vax 08/06/22 Recorded [id number] 12y+ bivalent booster vax 12/13/21 Recorded pneumococcal 23-valent vaccine 4 07/29/21 Given SARS-CoV-2 mRNA (yawdvkg-tsih-mkdhz) vax 06/21/21 Recorded SARS-CoV-2 (COVID-19) mRNA BNT-162b2 [...] Toxoid Vaccine (oldterm) 03/08/00 Given 1Result Comment: [facility]# [id number] 2Result Comment: [12/09/2017] [id number] 3Admin Note: GIVEN IN CLINIC [facility] 4Result Comment: [facility]# [id number] 5Admin Note: [email or web address] [facility] 6Admin Note: [facility] 7Admin Note: GIVEN AT OUTSIDE CLINIC 8Admin Note: per pt rcvd elsewhere Medications amLODIPine 5 mg oral tablet 1 tablet, By Mouth, Daily, # 30 tablet, 5 Refills, Maintenance, 08/30/23 14:03:00 EDT, [facility], 157.5, cm, 08/16/23 12:48:00 EDT, Height, 59.5, kg, 06/03/22 14:32:00 EDT, Dry Weight Start Date: 08/30/23 Status: Ordered Aspirin Low Dose 81 mg oral delayed release tablet 1 tablet, By Mouth, Daily, # 30 tablet, 5 Refills, Maintenance, 08/10/23 12:27:00 EDT, [facility], 157.5, cm, 06/22/23 15:03:00 EDT, Height, 59.5, kg, 06/03/22 14:32:00 EDT, Dry Weight Start Date: 08/10/23 Status: Ordered carvedilol 6.25 mg oral tablet 1, tablet, By Mouth, 2 times a day, # 180 tablet, Refills 1, Tot. Refills 1, Maintenance, 07/24/23 15:25:00 EDT, [id number] 157.5, cm, 06/22/23 15:03:00 EDT, Height, 59.5, kg, 06/03/22 14:32:00 EDT, Dry Weight Start Date: 07/24/23 Status: Ordered Daily Brielle oral tablet 1 tablet, By Mouth, Daily, # 30 tablet, 11 Refills, Maintenance, 02/15/23 12:26:00 EST, [facility] STORE 45372, 30, TAKE 1 TABLET BY MOUTH EVERY DAY, 157.5, cm, 08/04/22 8:48:00 EDT, Height, 59.5, kg, 06/03/22 14:32:00 EDT, Dry Weight Start Date: 02/15/23 Status: Ordered furosemide 40 mg oral tablet 1, tablet, By Mouth, Daily, # 30 tablet, Refills 5, Tot. Refills 5, Maintenance, 03/18/23 7:42:00 EST, [id number] 157.5, cm, 08/04/22 8:48:00 EDT, Height, 59.5, kg, 06/03/22 14:32:00 EDT, Dry Weight Start Date: 03/18/23 Status: Ordered lisinopril 10 mg oral tablet 1, tablet, By Mouth, 2 times a day, # 180 tablet, Refills 3, Maintenance, 01/25/23 11:53:00 EST, Route to Pharmacy Electronically, [facility] STORE 12366, 157.5, cm, 08/04/22 8:48:00 EDT, Height, 59.5, [...] Refills, Maintenance, 02/11/23 7:48:00 EST, [facility], 157.5, cm, 08/04/22 8:48:00 EDT, Height, 59.5, kg, 06/03/22 14:32:00 EDT, Dry Weight Start Date: 02/11/23 Status: Ordered Vitamin D3 1000 intl units oral capsule 1 capsule, By Mouth, Daily, # 30 capsule, 5 Refills, Maintenance, 08/30/23 14:04:00 EDT, [facility], 157.5, cm, 08/16/23 12:48:00 EDT, Height, 59.5, [...] 4colo 2004 nl, rpt 2013 5MI 2019 20906; no repeat due to age 7restarted HCTZ; will monitor 8holding hctz ;recheck 9Per discharge note 03/05/21: Long-standing schizoaffective disorder, bipolar type. 10Antibody positive 11thought to be medication related by neurology Social History Social History Type Response Smoking Status Never (less than 100 in lifetime) entered on: 12/02/20 Sex Patient Care team information Care Team Personnel Name: Suresh COONEY, Zabrina Position: [facility] RN Member Role: Primary Care Nurse Name: Carley Vazquez RN Position: [facility] RN Member Role: Primary Care Nurse Name: Geetha MAYBERRY, Annia Gomes Position: [facility] Associate Professional Member Role: Primary Care Nurse Name: Jaci GOLD, Garrison Swan Position: [facility] Physician - Primary Care Member Role: PCP Address: Address: [address] [place] [address]- [place] Name: David Knapp MD Position: [facility] Renal MD Member Role: Lifetime Consulting Physician Address: Address: [address] [place] [address] [address] [facility], [place] [address]- [place] Name: Torito COONEY, Melissa Position: [facility] RN Member Role: Primary Care Nurse Care Team Related Persons Name: LIVIA MAXWELL Address: home [address] [place] [address] Name: DINA MAXWELL Address: home [address] [place] [address]
--- OUTSIDE RECORDS SUMMARY | 2024-01-05 22:57 | XMS_ITS | Continuity of Care Document ---
Author Organization [facility] Address [address] [place] [address]- Care Team Providers Care Museum Registrar Name Role Phone Garrison Beatty MD Primary Care Physician Encounter [facility] Date(s): 05/05/22 - 06/04/22 [facility] [address] [place] [address]- Allergies, Adverse Reactions, Alerts Substance Reaction Severity [...] 23-valent vaccine 6 07/29/21 Given SARS-CoV-2 mRNA (vrcmfwj-ssgo-assfv) vax 06/21/21 Recorded SARS-CoV-2 (COVID-19) mRNA BNT-162b2 [...] Toxoid Vaccine (oldterm) 03/08/00 Given 1Result Comment: [facility]# [id number] 2Result Comment: [12/09/2017] [id number] 3Result Comment: [04/15/2015 Uncharted] Pt had influenza vaccine 12/12/15- 4Admin Note: PT had the flu shot done at [facility] Flu clinic 5Admin Note: GIVEN IN CLINIC [facility] 6Result Comment: [facility]# [id number] 7Admin Note: [facility] 8Admin Note: [facility] 9Admin Note: GIVEN AT OUTSIDE CLINIC 10Admin Note: per pt rcvd elsewhere Medications amLODIPine 5 mg oral tablet 1 tablet, By Mouth, Daily, # 30 tablet, 5 Refills, Maintenance, 04/17/22 19:41:00 EST, [facility] STORE 74224, 158, cm, 02/27/22 13:27:00 EST, Height, 63, kg, 07/28/21 1:38:00 EDT, Dry Weight Start Date: 04/17/22 Status: Ordered aspirin 81 mg oral delayed release tablet 81 mg, 1, tablet, By Mouth, Daily, # 30 tablet, Refills 5, Tot. Refills 5, Maintenance, 03/26/22 11:58:00 EST, Route to Pharmacy Electronically, [facility]/pharmacy #7869, Partial fill upon patient request if the prescription is for a schedule II opioid drug... Start Date: 03/26/22 Status: Ordered carvedilol 6.25 mg oral tablet 6.25 mg, 1, tablet, By Mouth, 2 times a day, # 180 tablet, Refills 3, Tot. Refills 3, Maintenance, 02/02/22 16:34:00 EST, Route to Pharmacy Electronically, [facility]/pharmacy #7111, Partial fill upon patient request if the prescription is for a schedule II... Start Date: 02/02/22 Status: Ordered clopidogrel 75 mg oral tablet 1, tablet, By Mouth, Daily, # 30 tablet, Refills 5, Tot. Refills 5, Maintenance, 03/26/22 11:55:00 EST, Route to Pharmacy Electronically, [facility]/pharmacy #7111, 158, cm, 02/27/22 13:27:00 EST, Height, 63, kg, 07/28/21 1:38:00 EDT, Dry Weight Start Date: 03/26/22 Status: Ordered Daily Brielle oral tablet 1 tablet, By Mouth, Daily, # 30 tablet, 11 Refills, Maintenance, 03/18/22 11:57:00 EST, [facility], 30, TAKE 1 TABLET BY MOUTH EVERY DAY, 158, cm, 02/27/22 13:27:00 EST, Height, 63, kg, 221:38:00 EDT, Dry Weight Start Date: 03/18/22 Status: Ordered donepezil 5 mg oral tablet 1, tablet, By Mouth, Daily at bedtime, # 30 tablet, Refills 2, Maintenance, 05/25/22 16:50:00 EDT, Route to [facility] Electronically, [facility], 158, cm, 02/27/22 13:27:00 EST, Height, 63, kg, 07/28/21 1:38:00 EDT, Dry Weight Start Date: 05/25/22 Status: Ordered High Potency Vitamin D3 25 mcg (1000 intl units) oral capsule 1 capsule = 25 mcg, By Mouth, Daily, # 30 capsule, 5 Refills, Maintenance, 03/26/22 11:54:00 EST, [facility]/pharmacy #7111, Partial fill upon patient request if the prescription is for a schedule II opioiddrug., 158, cm, 02/27/22 13:27:00 EST, Height, 63,... Start Date: 03/26/22 Status: Ordered Lasix 40 mg oral tablet 40 mg, 1, tablet, By Mouth, Daily, # 30 tablet, Refills 5, Tot. Refills 5, Maintenance, 03/26/22 11:53:00 EST, Route to Pharmacy Electronically, [facility]/pharmacy #7111, Partial fill upon patient request if the prescription is for a schedule II opioid drug... Start Date: 03/26/22 Stop Date: 09/22/22 Status: Ordered lisinopril 10 mg oral tablet 10 mg, 1, tablet, By Mouth, 2 times a day, # 180 tablet, Refills 3, Tot. Refills 3, Maintenance, 03/07/22 16:09:00 EST, Route to Pharmacy Electronically, [facility]/pharmacy #7111, Partial fill upon patientrequest if [...] Refills, Maintenance, 01/23/22 15:28:00 EST, ER Capsule, [facility]/pharmacy #7111, Partial fill upon [...] 4colo 2004 nl, rpt 2013 5MI 2019 27656; no repeat due to age 7restarted HCTZ; [...] Member Role: Primary Care Nurse Address: Address: [address] [place] [address]- [place] Name: Garrison Beatty MD Position: [facility] Primary Care Physician Member Role: PCP Address: Address: [address] [place] [address]- [place] Name: David Knapp MD Position: [facility] Renal MD Member Role: Lifetime Consulting Physician Address: Address: [address] [facility] [place] [address]- [place] Name: Zabrina Reyes RN Position: [facility] RN Member Role: Primary Care Nurse Name: Melissa Ugarte RN Position: S RN Member Role: Primary Care Nurse Care Team Related Persons Name: LIVIA MAXWELL Address: home [address] [place] [address] Name: DINA [place]LL Address: [address] [place] [address]
--- OUTSIDE RECORDS SUMMARY | 2024-01-05 22:57 | XMS_ITS | Continuity of Care Document ---
Author Organization [facility] [place] Yon lt Address [address] [place] [address]- Care Team Providers Care Art Specialist Name Role Phone Garrison Beatty MD Primary Care Physician [facility] 12[facility]05[facility]19 - 01/04/20 [facility] Adult [address] [place] [address]- [facility] Attending Physician: Admtr, Ar8 Allergies, Adverse Reactions, Alerts [...] Vaccine (oldterm) 03/08/00 Given 1Result Comment: [12/09/2017] [id number] 2Result Comment: [04/15/2015 Uncharted] Pt had influenza vaccine 12/12/15- 3Admin Note: PT had the flu shot done at [facility] Flu clinic 4Admin Note: GIVEN IN CLINIC [facility] 5Admin Note: [facility] 6Admin Note: [employer] [facility] 7Admin Note: GIVEN AT OUTSIDE CLINIC 8Admin [...] Maintenance,12/05/19 12:01:00 EDT, Route to Pharmacy Electronically, [facility]/pharmacy #[id number], 158, cm, 12/05/19 11:43:00 EDT, Height, [...] colo 2008 4colo 2003 nl, rpt 2013 [address]3278; no repeat due to age 6restarted HCTZ; will monitor 7holding hctz ;recheck 8Antibody positive 9thought to be medication related by neurology Social History Social History Type Response Smoking Status Never smoker; Tobacc o user in household: No entered on: 07/05/14 Sex
--- OUTSIDE RECORDS SUMMARY | 2024-01-05 22:57 | XMS_ITS | Continuity of Care Document ---
Author Organization [facility] Address [address] [place] [address]- Care Team Providers Care Construction Trades Teacher Name Role Phone Jaci GOLD, Garrison Swan Primary Care Physician [phone] [facility]counter [facility] Date[facility]s): 11/[facility]21 - 12/27/21 [facility] Adult [address] [place] [address]- Attending Physician: Admtr, Ar8 Allergies, Adverse Reactions, [...] 23-valent vaccine 6 07/29/21 Given SARS-CoV-2 mRNA (mamhhqc-[id number]-mztlb) vax 06/21/21 Recorded SARS-CoV-2 (COVID-19) mRNA BNT-162b2 [...] 03/08/00 Given 1Result Comment: [facility]# [id number] 2Result Comment: [12/09/2017] [id number] 3Result Comment: [04/15/2015 Uncharted] Pt had influenza vaccine 12/12/15- 4Admin Note: PT had the flu shot done at [facility] Flu clinic 5Admin Note: GIVEN IN [facility] 6Result Comment: [facility]# [id number] 7Admin Note: [employer] [facility] 8Admin Note: [employer] [facility] 9Admin Note: GIVEN AT OUTSIDE CLINIC 10Admin Note: per pt rcvd elsewhere Medications amLODIPine 5 mg oral tablet 5 mg, 1, tablet, By Mouth, Daily, # 30 tablet, Refills 11, Tot. Refills 11, Maintenance, 03/12/21 16:13:00 EST, Route to Pharmacy Electronically, [facility]/pharmacy #[id number], Partial fill upon patient requestif the prescription [...] 10/13/21 14:45:00 EDT, Route to Pharmacy Electronically, [facility]/pharmacy #[id number], Partial fill upon patient request if the prescription is for a schedule II o... Start Date: 10/13/21 Status: Ordered clopidogrel 75 mg oral tablet 1, tablet, By Mouth, Daily, # 30 tablet, Refills 0, Maintenance, 11/06/21 16:29:00 EDT, Route to Pharmacy Electronically, [facility] STORE 91551, 158, cm, 10/02/21 9:27:00 EDT, Height, 63, kg, 07/28/21 1:38:00 EDT, Dry Weight Start Date: 11/06/21 Status: Ordered donepezil 5 mg oral tablet See Instructions, TAKE 1 TABLET BY MOUTH AT BEDTIME, # 30 tablet, Refills 2, Instructions Replace Required Details, Route to Pharmacy Electronically, [facility] STORE 53898, 158, cm, 10/02/21 9:27:00 EDT, Height, 63, kg, 07/28/21 1:38:00 EDT, Dry Weight Start Date: 10/16/21 Status: Ordered Lasix 40 mg oral tablet 40 mg, 1, tablet, By Mouth, Daily, # 30 tablet, Refills 11, Tot. Refills 11, Maintenance, 03/12/21 16:08:00 EST, [facility] 16:09:00 EST, Route to Pharmacy Electronically, [facility]/pharmacy #[id number], Partial fill upon patient request if the pr... Start Date: 03/12/21 Stop Date: 03/07/22 Status: Ordered lisinopril 10 mg oral tablet 10 mg, 1, tablet, By Mouth, 2 times a day, # 180 tablet, Refills 3, Tot. Refills 3, Maintenance, 03/07/22 16:09:00 EST, Route to Pharmacy Electronically, [facility]/pharmacy #[id number], Partial fill upon patientrequest if the prescription is for a schedule II op... Start Date: 03/07/22 Status: Ordered magnesium oxide 400 mg oral tablet 1 tablet = 400 mg, By Mouth, Daily, for 30 days, # 30 tablet, 11 Refills, Acute 03/07/22 16:11:00 EST, 03/12/21 16:11:00 EST, Tablet, [facility]/pharmacy #[id number], Partial fill [...] Maintenance, 03/12/21 16:07:00 EST, ER Capsule, [facility]/pharmacy #[id number], Partial fill [...] 4colo 2003 nl, rpt 2013 5MI 2019 88806; no repeat due to age 7restarted HCTZ; will monitor 8holding hctz ;recheck 9Per discharge note 03/05/21: Long-standing schizoaffective disorder, bipolar type. 10Antibody positive 11thought to be medication related by neurology Social History Social History Type Response Smoking Status Never (less than 100 in lifetime) entered on: 12/02/20 Sex Patient Care team information Personnel Name: Jaci GOLD, Garrison Swan Address: Address: [address] [place] [id number]
--- OUTSIDE RECORDS SUMMARY | 2024-01-05 22:57 | XMS_ITS | Continuity of Care Document ---
Author Organization [facility] Address [address] [place] [address]- Care Team Providers Care Intelligence Officer Basic Name Role Phone Garrison Beatty MD Primary Care Physician [phone] [place] [facility] Date(s): 11/06/20 - 12/06/20 [facility] [address] [place] [address]- [place] Allergies, Adverse Reactions, Alerts Substance Reaction [...] Vaccine (oldterm) 03/08/00 Given 1Result Comment: [12/09/2017] [id number] 2Result Comment: [04/15/2015 Uncharted] Pt had influenza vaccine 12/12/15- 3Admin Note: PT had the flu shot done at [facility] Flu clinic 4Admin Note: GIVEN IN [facility] 5Admin Note: [employer] [facility] 6Admin Note: [employer] [facility] 7Admin Note: GIVEN AT OUTSIDE CLINIC 8Admin [...] to Pharmacy Electronically, [facility]/pharmacy #[id number], Partial fill upon patient request if the prescription is for a schedule II... Start Date: 08/07/20 Stop Date: 08/02/21 Status: Ordered clopidogrel 75 mg oral tablet 1, tablet, By Mouth, Daily, # 30 tablet, Refills 5, Tot. Refills 0, Maintenance, 10/04/20 11:01:00 EDT, Route to Pharmacy Electronically, [facility], 160, cm, 08/30/20 13:24:00 EDT, Height, 56.5, [...] 12/16/20 10:45:00 EDT, 12/02/20 10:45:00 EDT, Film, [facility]/pharmacy #[id number], Partial fill upon patient request if the prescription is for a schedule II opioid drug... Start Date: 12/02/20 Stop Date: 12/16/20 Status: Ordered lisinopril 2.5 mg oral tablet 2.5 mg, 1, tablet, By Mouth, Daily, # 30 tablet, Refills 11, Tot. Refills 11, Maintenance, 10/25/2111:27:00 EDT, [id number] Partial fill upon patient request if [...] 4colo 2003 nl, rpt 2013 5MI 2019 01892; no repeat due to age 7restarted HCTZ; will monitor 8holding hctz ;recheck 9Antibody positive 10thought to be medication related by neurology Social History Social History Type Response Smoking Status Never (less than 100 in lifetime) entered on: 12/02/20 Sex
--- OUTSIDE RECORDS SUMMARY | 2024-01-05 22:57 | XMS_ITS | Continuity of Care Document ---
Author Organization [facility] Address [address] [place] [address]- Care Team Providers Care Heel Wheeler Name Role Phone Garrison Beatty MD Primary Care Physician [phone] Encounter [facility] Date(s): 08/29/20 - 09/28/20 [facility] [address] [place] [address]- Allergies, Adverse Reactions, Alerts Substance Reaction Severity [...] Vaccine (oldterm) 03/08/00 Given 1Result Comment: [12/09/2017] [id number] 2Result Comment: [04/15/2015 Uncharted] Pt had influenza vaccine 12/12/15- 3Admin Note: PT had the flu shot done at [facility] Flu clinic 4Admin Note: GIVEN IN [facility] 5Admin Note: [facility] 6Admin Note: [facility] 7Admin Note: GIVEN AT OUTSIDE CLINIC 8Admin Note: per pt rcvd elsewhere Medications carvedilol 6.25 mg oral tablet 6.25 mg, 1, tablet, By Mouth, 2 times a day, # 60 tablet, Refills 11, Tot. Refills 11, Maintenance,08/07/20 13:57:00 EDT, Route to Pharmacy Electronically, [facility]/pharmacy #[id number], Partial fill upon patient request [...] 09/03/20 7:05:00 EDT, Route to Pharmacy Electronically, [facility]/pharmacy #[id number], 160, cm, 06... Start Date: 09/03/20 Stop Date: 09/10/20 Status: Ordered Lasix 40 mg oral tablet 40 mg, 1, tablet, By Mouth, Daily, # 30 tablet, Refills 11, Tot. Refills 11, Maintenance, 04/29/20 9:22:00 EST, Route to Pharmacy Electronically, [facility]/pharmacy #7111, Partial fill upon patient requestif the prescription is for a schedule II opioid symone... Start Date: 04/29/20 Stop Date: 04/24/21 Status: Ordered losartan 25 mg oral tablet 0.5, By Mouth, Daily, # 15 tablet, Refills 3, Tot. Refills 3, Maintenance, 08/29/20 13:46:00 EDT, Route to Pharmacy Electronically, [facility]/pharmacy #[id number], Partial fill upon patient request [...] 10:44:00 EST, Route to Pharmacy Electronically, [facility]/pharmacy #[id number], Partial fill upon patient request [...] colo 2008 4colo 2004 nl, rpt 2013 52019 26675; no repeat due to age 7restarted HCTZ; will monitor 8holding hctz ;recheck 9Antibody positive 10thought to be medication related by neurology Social History Social History Type Response Smoking Status Never smoker; Tobacc o user in household: No entered on: 07/05/14 Sex
--- OUTSIDE RECORDS SUMMARY | 2024-01-05 22:57 | XMS_ITS | Continuity of Care Document ---
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 Name Role Phone Garrison Beatty MD Primary Care Physician Encounter [facility] Date(s): 06/02/19 - 08/26/19 [facility] [address] [place] [address]- [facility] Attending Physician: Darryn Ledezma MD Admitting Physician: [...] Vaccine (oldterm) 03/08/00 Given 1Result Comment: [12/09/2017] [id number] 2Result Comment: [04/15/2015 Uncharted] Pt had influenza vaccine 12/12/15- 3Admin Note: PT had the flu shot done at [facility] Flu clinic 4Admin Note: GIVEN IN [facility] 5Admin Note: [employer] [facility] 6Admin Note: [employer] [facility] 7Admin Note: GIVEN AT OUTSIDE CLINIC [...] 08/21/19 14:11:00 EDT, Route to Pharmacy Electronically, [facility]/pharmacy #[id number], 155.5, cm, 08/21/19 13:49:00 EDT, [...] tablet, 11 Refills, Maintenance, 08/21/19 14:11:00 EDT, [facility]/pharmacy #[id number], 155.5, cm, 08/21/19 13:49:00 EDT, [...] colo 2008 4colo 2003 nl, rpt 2013 29710; no repeat due to age 6restarted HCTZ; will monitor 7holding hctz ;recheck 8Antibody positive 9thought to be medication related by neurology Social History Social History Type Response Smoking Status Never smoker; Tobacc o user in household: No entered on: 07/05/14 Sex
--- OUTSIDE RECORDS SUMMARY | 2024-01-05 22:57 | XMS_ITS | Continuity of Care Document ---
Author Organization [facility] Address [address] [place] [address]- Care Team Providers Care Blueprint Processor Name Role Phone Garrison Beatty MD Primary Care Physician [facility]counter [facility] Date(s): 07/29/20 - 08/28/20 [facility] [address] [place] [address]- Allergies, Adverse Reactions, Alerts Substance Reaction Severity [...] Vaccine (oldterm) 03/08/00 Given 1Result Comment: [12/09/2017] [id number] 2Result Comment: [04/15/2015 Uncharted] Pt had influenza vaccine 12/12/15- 3Admin Note: PT had the flu shot done at [facility] Flu clinic 4Admin Note: [facility] 5Admin Note: [employer] [facility] 6Admin Note: [employer] [facility] 7Admin Note: GIVEN AT OUTSIDE CLINIC 8Admin Note: per pt rcvd elsewhere Medications carvedilol 6.25 mg oral tablet 6.25 mg, 1, tablet, By Mouth, 2 times a day, # 60 tablet, Refills 11, Tot. Refills 11, Maintenance,08/07/20 13:57:00 EDT, Route to Pharmacy Electronically, [facility]/pharmacy [...] capsule, 0 Refills, Maintenance, 07/24/20 12:45:00EDT, Capsule, [facility]/pharmacy #[id number], Partial fill upon patient request if the prescription is for a schedule II opioid drug., 160, cm, 07/23/20 12:27:00 E... Start Date: 07/24/20 Stop Date: 08/07/20 Status: Ordered Lasix 40 mg oral tablet 40 mg, 1, tablet, By Mouth, Daily, # 30 tablet, Refills 11, Tot. Refills 11, Maintenance, 04/29/20 9:22:00 EST, [facility], [facility] 5 Refills, Maintenance, 08/09/20 13:00:00 EDT, Tablet, [facility]/pharmacy #[id number], Partial fill [...] 4colo 2004 nl, rpt 2013 5MI 2019 23691; no repeat due to age 7restarted HCTZ; will monitor 8holding hctz ;recheck 9Antibody positive 10thought to be medication related by neurology Social History Social History Type Response Smoking Status Never smoker; Tobacc o user in household: No entered on: 07/05/14 Sex
--- OUTSIDE RECORDS SUMMARY | 2024-01-05 22:57 | XMS_ITS | Continuity of Care Document ---
Author Organization [facility] Address [address] [place] [address]- Care Team Providers Care Sander Operator Name Role Phone Delvis ALEXANDER, Catie Shelton Primary Care Physician [facility] Date[facility]s): 06/22/23 - 07/22/23 [facility] Adult [address] [place] [address]- Allergies, Adverse Reactions, Alerts Substance Reaction Severity Status cephalexin Active nitrofurantoin Active predniSONE SEVERE H/A Active statins MYALGIAS Active sulfADIAZINE Ciprofloxacin Active valsartan 1 Active 1dizziness Immunizations Given and Recorded Vaccine Date Status Refusal Reason RSV vaccine, preF A-preF B, recombinant 03/23/23 R ecorded SARS-CoV-2(COVID-19)mRNA-LNP vac([id number]) 11/26/22 Recorded influenza virus vaccine, inactivated 11/05/22 [...] virus vaccine, inactivated 3 12/30/05 Gi cyn [id number] 12y+ bivalent booster vax 08/06/22 Recorded [id number] 12y+ bivalent booster vax 12/13/21 Recorded pneumococcal 23-valent vaccine 4 07/29/21 Given SARS-CoV-2 mRNA (hkcheow-ugld-yhelc) vax 06/21/21 Recorded SARS-CoV-2 (COVID-19) mRNA BNT-162b2 [...] Toxoid Vaccine (oldterm) 03/08/00 Given 1Result Comment: [facility]# [id number] 2Result Comment: [12/09/2017] [id number] 3Admin Note: GIVEN IN [facility] 4Result Comment: [facility]# [id number] 5Admin Note: [facility] 6Admin Note: [facility] 7Admin Note: GIVEN AT OUTSIDE CLINIC 8Admin Note: per pt rcvd elsewhere Medications amLODIPine 5 mg oral tablet 1 tablet, By Mouth, Daily, # 30 tablet, 5 Refills, Maintenance, 03/14/23 14:05:00 EST, [facility] STORE 15109, 157.5, cm, 08/04/22 8:48:00 EDT, Height, 59.5, kg, 06/03/22 14:32:00 EDT, Dry Weight Start Date: 03/14/23 Status: Ordered Aspirin Low Dose 81 mg oral delayed release tablet 1 tablet, By Mouth, Daily, # 30 tablet, 5 Refills, Maintenance, 03/18/23 7:42:00 EST, [facility]/pharmacy #[id number], 157.5, cm, 08/04/22 8:48:00 EDT, Height, 59.5, kg, 06/03/22 14:32:00 EDT, Dry Weight Start Date: 03/18/23 Status: Ordered carvedilol 6.25 mg oral tablet 1, tablet, By Mouth, 2 times a day, # 180 tablet, Refills 1, Tot. Refills 1, Maintenance, 01/27/23 20:22:00 EST, [id number] 157.5, cm, 08/04/22 8:48:00 EDT,Height, 59.5, kg, 06/03/22 14:32:00 EDT, Dry Weight Start Date: 01/27/23 Status: Ordered clopidogrel 75 mg oral tablet 1, tablet, By Mouth, Daily, # 30 tablet, Refills 5, Tot. Refills 5, Maintenance, 03/26/22 11:55:00 EST, [id number], cm, 02/27/22 13:27:00 EST, Height, 63, kg, 07/28/21 1:38:00 EDT, Dry Weight Start Date: 03/26/22 Status: Ordered Daily Brielle oral tablet 1 tablet, By Mouth, Daily, # 30 tablet, 11 Refills, Maintenance, 02/15/23 12:26:00 EST, [facility] STORE 21467, 30, TAKE 1 TABLET BY MOUTH EVERY DAY, 157.5, cm, 08/04/22 8:48:00 EDT, Height, 59.5, kg, 06/03/22 14:32:00 EDT, Dry Weight Start Date: 02/15/23 Status: Ordered donepezil 5 mg oral tablet 1, tablet, By Mouth, Daily at bedtime, # 30 tablet, Refills 2, Maintenance, 05/25/22 16:50:00 EDT, Route to Pharmacy Electronically, [facility] STORE 97966, 158, cm, 02/27/22 13:27:00 EST, Height, 63, kg, 07/28/21 1:38:00 EDT, Dry Weight Start Date: 05/25/22 Status: Ordered furosemide 40 mg oral tablet 1, tablet, By Mouth, Daily, # 30 tablet, Refills 5, Tot. Refills 5, Maintenance, 03/18/23 7:42:00 EST, Route to Pharmacy Electronically, [facility]/pharmacy #[id number], 157.5, cm, 08/04/22 8:48:00 EDT, Height, 59.5, kg, 06/03/22 14:32:00 EDT, Dry Weight Start Date: 03/18/23 Status: Ordered lisinopril 10 mg oral tablet 1, tablet, By Mouth, 2 times a day, # 180 tablet, Refills 3, Maintenance, 01/25/23 11:53:00 EST, Route to Pharmacy Electronically, [facility] STORE 65034, 157.5, cm, 08/04/22 8:48:00 EDT, Height, 59.5, [...] 3 Refills, Maintenance, 02/11/23 7:48:00 EST, [facility] STORE 38432, 157.5, cm, 08/04/22 8:48:00 EDT, Height, 59.5, kg, 06/03/22 14:32:00 EDT, Dry Weight Start Date: 02/11/23 Status: Ordered Vitamin D3 1000 intl units oral capsule 1 capsule, By Mouth, Daily, # 30 capsule, 5 Refills, Maintenance, 03/14/23 14:05:00 EST, [facility] STORE 77499, 157.5, cm, 08/04/22 8:48:00 EDT, Height, 59.5, [...] 4colo 2004 nl, rpt 2013 5MI 2019 51512; no repeat due to age 7restarted HCTZ; will monitor 8holding hctz ;recheck 9Per discharge note 03/05/21: Long-standing schizoaffective disorder, bipolar type. 10Antibody positive 11thought to be medication related by neurology Social History Social History Type Response Smoking Status Never (less than 100 in lifetime) entered on: 12/02/20 Sex Patient Care team information Care Team Personnel Name: Zabrina Prince RN Position: S RN Member Role: Primary Care Nurse Name: Carley Vazquez RN Position: S RN Member Role: Primary Care Nurse Name: Annia Iniguez NP Position: [facility] Associate Professional Member Role: Primary Care Nurse Name: Catie Washington Position: [facility] PCO Associate Professional Member Role: PCP Address: Address: [address] [place] [address]- [place] Name: David Knapp MD Position: [facility] Renal MD Member Role: Lifetime Consulting Physician Address: Address: [address] [facility] [place] [address]- [place] Name: Melissa Ugarte RN Position: [facility] RN Member Role: Primary Care Nurse Care Team Related Persons Name: LIVIA MAXWELL Address: [address] [place] [address] Name: DINA MAXWELL Address: home [address] [place] [address]
--- OUTSIDE RECORDS SUMMARY | 2024-01-05 22:57 | XMS_ITS | Continuity of Care Document ---
Author Organization [facility] Address [address] [place] [address]- Care Team Providers Care Manager Women Name Role Phone Garrison Beatty MD Primary Care Physician [phone] [facility]counter [facility] Date[facility]s): 06[facility]04/20 - 07/04/20 [facility] [address] [place] [address]- Attending Physician: Renetta Strickland Admitting Physician: AdmtrRenetta [...] Vaccine (oldterm) 03/08/00 Given 1Result Comment: [12/09/2017] [id number] 2Result Comment: [04/15/2015 Uncharted] Pt had influenza vaccine 12/12/15- 3Admin Note: PT had the flu shot done at [facility] 4Admin Note: GIVEN IN [facility] 5Admin Note: [employer] [facility] 6Admin Note: [employer] [facility] 7Admin Note: GIVEN AT OUTSIDE CLINIC 8Admin [...] 06/26/20 15:12:00 EDT, Route to Pharmacy Electronically, [facility]/pharmacy #[id number], 160, cm, 05/24/20 14:01:00 EDT, Height, 62, kg, 02/27/20 20:52:00 EST, Dry Weight Start Date: 06/26/20 Status: Ordered Depakote 250 mg oral enteric coated tablet 1 tablet, By Mouth, 2 times a day, # 90 tablet, 0 Refills, Maintenance, EC Tablet Start Date: 02/20/10 Status: Ordered Lasix 40 mg oral tablet 40 mg, 1, tablet, By Mouth, Daily, # 30 tablet, Refills 11, Tot. Refills 11, Maintenance, 04/29/20 9:22:00 EST, Route to Pharmacy Electronically, [facility]pharmacy [id number], Partial fill upon patient requestif the prescription is for a schedule II opioid symone... Start Date: 04/29/20 Stop Date: 04/24/21 Status: Ordered lisinopril 5 mg oral tablet 5 mg, 1, tablet, By Mouth, Daily, # 30 tablet, Refills 3, Tot. Refills 3, Maintenance, 04/25/20 10:36:00 EST, Route to Pharmacy Electronically, [facility]/pharmacy #7111, Partial fill upon patient request [...] EST, Route to Pharmacy Electronically, [facility]/pharmacy #7111, Partial fill upon patient request if the prescription is for a schedule II opioid drug... Start Date: 03/20/20 Status: Ordered potassium chloride 10 mEq oral tablet, extended release 2 tablet = 20 mEq, By Mouth, Daily in AM, # 60 tablet, 5 Refills, Maintenance, 04/29/20 9:23:00 EST, ER Tablet, [facility]/pharmacy #7111, Partial fill upon patient request [...] 4colo 2004 nl, rpt 2013 5MI 2019 09197; no repeat due to age 7restarted HCTZ; will monitor 8holding hctz ;recheck 9Antibody positive 10thought to be medication related by neurology Social History Social History Type Response Smoking Status Never smoker; Tobacc o user in household: No entered on: 07/05/14 Sex
--- OUTSIDE RECORDS SUMMARY | 2024-01-05 22:57 | XMS_ITS | Continuity of Care Document ---
Author Organization [facility] Address [address] [place] [address]- Care Team Providers Care Hims Manager Name Role Phone Garrison Beatty MD Primary Care Physician Encounter [facility] [place] [facility] Date(s): 05/14/22 - 06/13/22 [facility] [address] [place] [address]- Allergies, Adverse Reactions, Alerts Substance Reaction Severity [...] 23-valent vaccine 6 07/29/21 Given SARS-CoV-2 mRNA ([id number]) vax 06/21/21 Recorded SARS-CoV-2 (COVID-19) mRNA BNT-162b2 [...] Toxoid Vaccine (oldterm) 03/08/00 Given 1Result Comment: [facility]# [id number] 2Result Comment: [12/09/2017] [id number] 3Result Comment: [04/15/2015 Uncharted] Pt had influenza vaccine 12/12/15- 4Admin Note: PT had the flu shot done at [facility] Flu clinic 5Admin Note: [facility]IV[facility] 6Result Comment: [facility]# [id number] 7Admin Note: [employer] [facility] 8Admin Note: [employer] [facility] [place] 9Admin Note: GIVEN AT OUTSIDE CLINIC 10Admin Note: per pt rcvd elsewhere Medications amLODIPine 5 mg oral tablet 1 tablet, By Mouth, Daily, # 30 tablet, 5 Refills, Maintenance, 04/17/22 19:41:00 EST, [facility] STORE 88418, 158, cm, 02/27/22 13:27:00 EST, Height, 63, kg, 07/28/21 1:38:00 EDT, Dry Weight Start Date: 04/17/22 Status: Ordered aspirin 81 mg oral delayed release tablet 81 mg, 1, tablet, By Mouth, Daily, # 30 tablet, Refills 5, Tot. Refills 5, Maintenance, 03/26/22 11:58:00 EST, Route to Pharmacy Electronically, [facility]/pharmacy #[id number], Partial fill upon patient request if the prescription is for a schedule II opioid drug... Start Date: 03/26/22 Status: Ordered carvedilol 6.25 mg oral tablet 6.25 mg, 1, tablet, By Mouth, 2 times a day, # 180 tablet, Refills 3, Tot. Refills 3, Maintenance, 02/02/22 16:34:00 EST, Route to Pharmacy Electronically, [facility]/pharmacy #[id number], Partial fill upon patient request if the prescription is for a schedule II... Start Date: 02/02/22 Status: Ordered clopidogrel 75 mg oral tablet 1, tablet, By Mouth, Daily, # 30 tablet, Refills 5, Tot. Refills 5, Maintenance, 03/26/22 11:55:00 EST, Route to Pharmacy Electronically, [facility]/pharmacy #[id number], 158, cm, 02/27/22 13:27:00 EST, Height, 63, kg, 07/28/21 1:38:00 EDT, Dry Weight Start Date: 03/26/22 Status: Ordered Daily Brielle oral tablet 1 tablet, By Mouth, Daily, # 30 tablet, 11 Refills, Maintenance, 03/18/22 11:57:00 EST, [facility], 30, TAKE 1 TABLET BY MOUTH EVERY DAY, 158, cm, 02/27/22 13:27:00 EST, Height, 63, kg, 221:38:00 EDT, Dry Weight Start Date: 03/18/22 Status: Ordered donepezil 5 mg oral tablet 1, tablet, By Mouth, Daily at bedtime, # 30 tablet, Refills 2, Maintenance, 05/25/22 16:50:00 EDT, Route to Pharmacy Electronically, [facility], 158, cm, 02/27/22 13:27:00 EST, Height, 63, kg, 07/28/21 1:38:00 EDT, Dry Weight Start Date: 05/25/22 Status: Ordered High Potency Vitamin D3 25 mcg (1000 intl units) oral capsule 1 capsule = 25 mcg, By Mouth, Daily, # 30 capsule, 5 Refills, Maintenance, 03/26/22 11:54:00 EST, [facility]/pharmacy #[id number], Partial fill upon patient request if the prescription is for a schedule II opioiddrug., 158, cm, 02/27/22 13:27:00 EST, Height, 63,... Start Date: 03/26/22 Status: Ordered Lasix 40 mg oral tablet 40 mg, 1, tablet, By Mouth, Daily, # 30 tablet, Refills 5, Tot. Refills 5, Maintenance, 03/26/22 11:53:00 EST, Route to Pharmacy Electronically, [facility]/pharmacy #[id number], Partial fill upon patient request if the prescription is for a schedule II opioid drug... Start Date: 03/26/22 Stop Date: 09/22/22 Status: Ordered lisinopril 10 mg oral tablet 10 mg, 1, tablet, By Mouth, 2 times a day, # 180 tablet, Refills 3, Tot. Refills 3, Maintenance, 03/07/22 16:09:00 EST, Route to Pharmacy Electronically, [facility]/pharmacy #[id number], Partial fill upon patientrequest if [...] Maintenance, 01/23/22 15:28:00 EST, ER Capsule, [facility]/pharmacy #7111, Partial fill upon patient request [...] 4colo 2004 nl, rpt 2013 5MI 2019 83309; no repeat due to age 7restarted HCTZ; will monitor 8holding hctz ;recheck 9Per discharge note 03/05/21: Long-standing schizoaffective disorder, bipolar type. 10Antibody positive 11thought to be medication related by neurology Social History Social History Type Response Smoking Status Never (less than 100 in lifetime) entered on: 12/02/20 Sex Patient Care team information Care Team Personnel Name: Carley Vazquez RN Position: [facility] RN Member Role: Primary Care Nurse Name: Annia Iniguez NP Position: [facility] Associate Professional Member Role: Primary Care Nurse Address: Address: [address] [place] [address]- [place] Name: Garrison Beatty MD Position: [facility] Primary Care Physician Member Role: PCP Address: Address: [address] [place] [address]- [place] Name: David Knapp MD Position: [facility] Renal MD Member Role: Lifetime Consulting Physician Address: Address: [address] [facility] [place] [place] [address]- [place] Name: Zabrina Reyes RN Position: [facility] RN Member Role: Primary Care Nurse Name: Melissa Ugarte RN Position: S RN Member Role: Primary Care Nurse Care Team Related Persons Name: LIVIA MAXWELL Address: [address] [place] [address] Name: DINA MAXWELL Address: home [address] [place] [address]
--- OUTSIDE RECORDS SUMMARY | 2024-01-05 22:57 | XMS_ITS | Continuity of Care Document ---
Author Organization [facility] Address [address] [place] [address]- Care Team Providers Care Blood Bank Technologist Name Role Phone Garrison Beatty MD Primary Care Physician Encounter [facility] [place] Date(s): 07/10/20 - 08/09/20 [facility] [address] [place] [address]- Allergies, Adverse Reactions, Alerts Substance Reaction Severity [...] Vaccine (oldterm) 03/08/00 Given 1Result Comment: [12/09/2017] [id number] 2Result Comment: [04/15/2015 Uncharted] Pt had influenza vaccine 12/12/15- 3Admin Note: PT had the flu shot done at [facility] Flu clinic 4Admin Note: GIVEN IN CL[facility]IC [facility] 5Admin Note: [employer] [facility] 6Admin Note: [employer] [facility] 7Admin Note: GIVEN AT OUTSIDE CLINIC 8Admin Note: per pt rcvd elsewhere Medications carvedilol 6.25 mg oral tablet 6.25 mg, 1, tablet, By Mouth, 2 times a day, # 60 tablet, Refills 11, Tot. Refills 11, Maintenance,08/07/20 13:57:00 EDT, Route to Pharmacy Electronically, [facility]/pharmacy #[id number], Partial fill upon patient [...] capsule, 0 Refills, Maintenance, 07/24/20 12:45:00EDT, Capsule, [facility]/pharmacy #[id number], Partial fill upon patient request if the prescription is for a schedule II opioid drug., 160, cm, 07/23/20 12:27:00 E... Start Date: 07/24/20 Stop Date: 08/07/20 Status: Ordered Lasix 40 mg oral tablet 40 mg, 1, tablet, By Mouth, Daily, # 30 tablet, Refills 11, Tot. Refills 11, Maintenance, 04/29/20 9:22:00 EST, Route to Pharmacy Electronically, [facility]/pharmacy #[id number], Partial fill upon patient [...] 03/20/20 10:44:00 EST, Route to Pharmacy Electronically, [facility]/pharmacy #[id number], Partial fill upon patient [...] 5 Refills, Maintenance, 08/09/20 13:00:00 EDT, Tablet, [facility]/pharmacy #[id number], Partial fill upon patient [...] 4colo 2004 nl, rpt 2013 5MI 2019 15997; no repeat due to age 7restarted HCTZ; will monitor 8holding hctz ;recheck 9Antibody positive 10thought to be medication related by neurology Social History Social History Type Response Smoking Status Never smoker; Tobacc o user in household: No entered on: 07/05/14 Sex
--- OUTSIDE RECORDS SUMMARY | 2024-01-05 22:57 | XMS_ITS | Continuity of Care Document ---
Author Organization [facility] Address [address] [place] [address]- Care Team Providers Care Layaway Clerk Name Role Phone Garrison Beatty MD Primary Care Physician Encounter [facility] Date(s): 11/04/20 - 12/04/20 [facility] [address] [place] [address]- [place] Allergies, Adverse Reactions, Alerts Substance Reaction [...] Vaccine (oldterm) 03/08/00 Given 1Result Comment: [12/09/2017] [id number] 2Result Comment: [04/15/2015 Uncharted] Pt had influenza vaccine 12/12/15- 3Admin Note: PT had the flu shot done at [facility] Flu clinic 4Admin Note: GIVEN IN CLINIC [facility] 5Admin Note: [employer] [facility] 6Admin Note: [employer] [facility] 7Admin Note: GIVEN AT OUTSIDE CLINIC 8Admin Note: per pt rcvd elsewhere Medications acetaminophen 325 mg oral tablet 650 mg, By Mouth, Every 4 hours, PRN, Refills 0, Maintenance, Pain , Mild, 12/02/20 10:49:00 EDT, Partial fill upon patient request if the prescription is for a schedule II opioid drug. Start Date: 12/02/20 Status: Ordered carvedilol 6.25 mg oral tablet 6.25 mg, 1, tablet, By Mouth, 2 times a day, # 60 tablet, Refills 11, Tot. Refills 11, Maintenance,08/07/20 13:57:00 EDT, Route to Pharmacy Electronically, [facility]/pharmacy #[id number], Partial fill upon patient request if the prescription is for a schedule II... Start Date: 08/07/20 Stop Date: 08/02/21 Status: Ordered clopidogrel 75 mg oral tablet 1, tablet, By Mouth, Daily, # 30 tablet, Refills 5, Tot. Refills 0, Maintenance, 10/04/20 11:01:00 EDT, Route to Pharmacy Electronically, [facility], 160, cm, 08/30/20 13:24:00 EDT, Height, 56.5, [...] 12/16/20 10:45:00 EDT, 12/02/20 10:45:00 EDT, Film, [facility]/pharmacy #[id number], Partial fill upon patient request if the prescription is for a schedule II opioid drug... Start Date: 12/02/20 Stop Date: 12/16/20 Status: Ordered lisinopril 2.5 mg oral tablet 2.5 mg, 1, tablet, By Mouth, Daily, # 30 tablet, Refills 11, Tot. Refills 11, Maintenance, 10/25/2111:27:00 EDT, [id number] Partial fill upon patient [...] 4colo 2003 nl, rpt 2013 5MI 2019 [address]; no repeat due to age 7restarted HCTZ; will monitor 8holding hctz ;recheck 9Antibody positive 10thought to be medication related by neurology Social History Social History Type Response Smoking Status Never (less than 100 in lifetime) entered on: 12/02/20 Sex
--- OUTSIDE RECORDS SUMMARY | 2024-01-05 22:57 | XMS_ITS | Continuity of Care Document ---
Author Organization [facility] Address [address] [place] [address]- Care Team Providers Care Micro Computer Data Processor Name Role Phone Jaci GOLD, Garrison Swan Primary Care Physician [phone] Encounter [facility] Date(s): 04/01/20 - 05/01/20 [facility] Adult [address] [place] [address]- Allergies, Adverse Reactions, Alerts Substance Reaction Severity [...] Vaccine (oldterm) 03/08/00 Given 1Result Comment: [12/09/2017] [id number] 2Result Comment: [04/15/2015 Uncharted] Pt had influenza vaccine 12/12/15- 3Admin Note: PT had the flu shot done at [facility] Flu clinic 4Admin Note: GIVEN IN CL[facility]IC [facility] 5Admin Note: [employer] [facility] 6Admin Note: [employer] [facility] 7Admin Note: GIVEN AT OUTSIDE CLINIC 8Admin [...] EST, Route to Pharmacy Electronically, [facility], 160, cm, 04/25/20 9:48:00 EST, Height, 62, [...] Route to Pharmacy Electronically, [facility]/pharmacy #[id number], Partial fill upon patient requestif the prescription is for a schedule II opioid symone... Start Date: 04/29/20 Stop Date: 04/24/21 Status: Ordered lisinopril 5 mg oral tablet 5 mg, 1, tablet, By Mouth, Daily, # 30 tablet, Refills 3, Tot. Refills 3, Maintenance, 04/25/20 10:36:00 EST, Route to Pharmacy Electronically, [facility]/pharmacy #[id number], Partial fill upon patient request [...] Route to Pharmacy Electronically, [facility]/pharmacy #[id number], Partial fill upon patient request if the prescription is for a schedule II opioid drug... Start Date: 03/20/20 Status: Ordered potassium chloride 10 mEq oral tablet, extended release 2 tablet = 20 mEq, By Mouth, Daily in AM, # 60 tablet, 5 Refills, Maintenance, 04/29/20 9:23:00 EST, ER Tablet, [facility]/pharmacy #7111, Partial fill upon patient request [...] 4colo 2003 nl, rpt 2013 5MI 2019 18535; no repeat due to age 7restarted HCTZ; will monitor 8holding hctz ;recheck 9Antibody positive 10thought to be medication related by neurology Social History Social History Type Response Smoking Status Never smoker; Tobacc o user in household: No entered on: 07/05/14 Sex
--- OUTSIDE RECORDS SUMMARY | 2024-01-05 22:57 | XMS_ITS | Continuity of Care Document ---
Author Organization [facility] Address [address] [place] [address]- Care Team Providers Care Health Center Associate Name Role Phone Garrison Beatty MD Primary Care Physician [phone] Encounter [facility] Date(s): 01/14/21 - 01/21/21 [facility] [address] [place], [place] [address] Attending Physician: Darryn Ledezma MD Admitting Physician: Darryn Ledezma MD Referring Physician: Garrison Beatty MD Allergies, Adverse Reactions, Alerts Substance Reaction Severity Status cephalexin Active nitrofurantoin Active statins MYALGIAS Active sulfADIAZINE Ciprofloxacin Active predniSONE SEVERE H/A Active Macrobid Active Immunizations Given and Recorded [...] Vaccine (oldterm) 03/08/00 Given 1Result Comment: [12/09/2017] [id number] 2Result Comment: [04/15/2015 Uncharted] Pt had influenza vaccine 12/12/15- 3Admin Note: PT had the flu shot done at [facility] Flu [facility] 4Admin Note: GIVEN IN CL[facility]IC [facility] 5Admin Note: [email or web address] 6Admin Note: [email or web address] 7Admin Note: GIVEN AT OUTSIDE CLINIC 8Admin [...] Maintenance,08/07/20 13:57:00 EDT, Route to Pharmacy Electronically, [facility]/pharmacy #[id number], Partial fill upon patient request if the prescription is for a schedule II... Start Date: 08/07/20 Stop Date: 08/02/21 Status: Ordered clopidogrel 75 mg oral tablet 1, tablet, By Mouth, Daily, # 30 tablet, Refills 5, Tot. Refills 0, Maintenance, 10/04/20 11:01:00 EDT, Route to Pharmacy Electronically, [facility]ORE 0[facility]71, 160, cm, 08/30/20 13:24:00 EDT, Height, 56.5, kg, 05/13/21 15:54:00 EDT, Dry Weight Start Date: 10/04/20 Status: Ordered Lasix 40 mg oral tablet 40 mg, 1, tablet, By Mouth, Daily, # 30 tablet, Refills 11, Tot. Refills 11, Maintenance, 04/29/20 9:22:00 EST, Route to Pharmacy Electronically, [facility]/pharmacy #[id number], Partial fill upon patient requestif the prescription is for a schedule II opioid symone... Start Date: 04/29/20 Stop Date: 04/24/21 Status: Ordered lisinopril 2.5 mg oral tablet 2.5 mg, 1, tablet, By Mouth, Daily, # 30 tablet, Refills 11, Tot. Refills 11, Maintenance, 10/25/2111:27:00 EDT, Route to Pharmacy Electronically, [facility]/pharmacy #7111, Partial fill upon patient request if [...] 4colo 2004 nl, rpt 2013 5MI 2019 [address]; no repeat due to age 7restarted HCTZ; will monitor 8holding hctz ;recheck 9Antibody positive 10thought to be medication related by neurology Social History Social History Type Response Smoking Status Never (less than 100 in lifetime) entered on: 12/02/20 Sex
--- OUTSIDE RECORDS SUMMARY | 2024-01-05 22:57 | XMS_ITS | Continuity of Care Document ---
Author Organization [facility] Address [address] [place] [address]- Care Team Providers Care Casting Technician Name Role Phone Jaci GOLD, Garrison Swan Primary Care Physician [phone] Encounter [facility] Date(s): 08/30/23 - 09/29/23 [facility] Adult [address] [place] [address]- Allergies, Adverse Reactions, Alerts Substance Reaction Severity Status cephalexin Active nitrofurantoin Active sulfADIAZINE Ciprofloxacin Active predniSONE SEVERE H/A Active valsartan 1 Active statins MYALGIAS Active 1dizziness Immunizations Given and Recorded Vaccine Date Status Refusal Reason RSV vaccine, preF A-preF B, recombinant 03/23/23 R ecorded SARS-CoV-2(COVID-19)mRNA-LNP vac([id number]) 11/26/22 Recorded influenza virus vaccine, inactivated 11/05/22 [...] virus vaccine, inactivated 3 12/30/05 Gi cyn [id number] 12y+ bivalent booster vax 08/06/22 Recorded [id number] 12y+ bivalent booster vax 12/13/21 Recorded pneumococcal 23-valent vaccine 4 07/29/21 Given SARS-CoV-2 mRNA ([id number]) vax 4/16/22 Recorded SARS-CoV-2 (COVID-19) mRNA BNT-162b2 [...] Toxoid Vaccine (oldterm) 03/08/00 Given 1Result Comment: [facility]# [id number] 2Result Comment: [12/09/2017] [id number] 3Admin Note: GIVEN IN CLINIC [facility] 4Result Comment: [facility]# [id number] 5Admin Note: [employer] [facility] 6Admin Note: [employer] [facility] 7Admin Note: GIVEN AT OUTSIDE CLINIC 8Admin Note: per pt rcvd elsewhere Medications amLODIPine 5 mg oral tablet 1 tablet, By Mouth, Daily, # 30 tablet, 5 Refills, Maintenance, 08/30/23 14:03:00 EDT, [facility], 157.5, cm, 08/16/23 12:48:00 EDT, Height, 59.5, kg, 06/03/22 14:32:00 EDT, Dry Weight Start Date: 08/30/23 Status: Ordered Aspirin Low Dose 81 mg oral delayed release tablet 1 tablet, By Mouth, Daily, # 30 tablet, 5 Refills, Maintenance, 08/10/23 12:27:00 EDT, [facility], 157.5, cm, 06/22/23 15:03:00 EDT, Height, 59.5, kg, 06/03/22 14:32:00 EDT, Dry Weight Start Date: 08/10/23 Status: Ordered carvedilol 6.25 mg oral tablet 1, tablet, By Mouth, 2 times a day, # 180 tablet, Refills 1, Tot. Refills 1, Maintenance, 07/24/23 15:25:00 EDT, Route to Pharmacy Electronically, [facility]/pharmacy #7111, 157.5, cm, 06/22/23 15:03:00 EDT, Height, 59.5, kg, 06/03/22 14:32:00 EDT, Dry Weight Start Date: 07/24/23 Status: Ordered Daily Brielle oral tablet 1 tablet, By Mouth, Daily, # 30 tablet, 11 Refills, Maintenance, 02/15/23 12:26:00 EST, [facility] 42101, 30, TAKE 1 TABLET BY MOUTH EVERY DAY, 157.5, cm, 08/04/22 8:48:00 EDT, Height, 59.5, kg, 06/03/22 14:32:00 EDT, Dry Weight Start Date: 02/15/23 Status: Ordered furosemide 40 mg oral tablet 1, tablet, By Mouth, Daily, # 30 tablet, Refills 5, Maintenance, 09/06/23 9:51:00 EDT, Route to Pharmacy Electronically, [facility]ORE 97128, 157.5, cm, 08/16/23 12:48:00 EDT, Height, 59.5, kg, 06/03/22 14:32:00 EDT, Dry Weight Start Date: 09/06/23 Status: Ordered lisinopril 10 mg oral tablet 1, tablet, By Mouth, 2 times a day, # 180 tablet, Refills 3, Maintenance, 01/25/23 11:53:00 EST, Route to Pharmacy Electronically, [facility]ORE 94579, 157.5, cm, 08/04/22 8:48:00 EDT, Height, 59.5, [...] Refills, Maintenance, 02/11/23 7:48:00 EST, [facility], 157.5, cm, 08/04/22 8:48:00 EDT, Height, 59.5, kg, 06/03/22 14:32:00 EDT, Dry Weight Start Date: 02/11/23 Status: Ordered Vitamin D3 1000 intl units oral capsule 1 capsule, By Mouth, Daily, # 30 capsule, 5 Refills, Maintenance, 08/30/23 14:04:00 EDT, [facility], 157.5, cm, 08/16/23 12:48:00 EDT, Height, 59.5, [...] 4colo 2004 nl, rpt 2013 5MI 2019 20593; no repeat due to age 7restarted HCTZ; will monitor 8holding hctz ;recheck 9Per discharge note 03/05/21: Long-standing schizoaffective disorder, bipolar type. 10Antibody positive 11thought to be medication related by neurology Social History Social History Type Response Smoking Status Never (less than 100 in lifetime) entered on: 12/02/20 Sex Patient Care team information Care Team Personnel Name: Zabrina Prince RN Position: [facility] ED RN W/OE and Tasks Member Role: Primary Care Nurse Name: Carley Vazquez RN Position: [facility] RN Member Role: Primary Care Nurse Name: Geetha MAYBERRY, Annia Gomes Position: [facility] Associate Professional Member Role: Primary Care Nurse Name: Jaci GOLD, Garrison Swan Position: [facility] Physician - Primary Care Member Role: PCP Address: Address: [address] [place] [address] - [place] Name: David Knapp MD Position: [facility] Renal MD Member Role: Lifetime Consulting Physician Address: Address: [address] [place] [address] [address] [facility] [place] [address]- [place] Name: Torito COONEY, Melissa Position: [facility] RN Member Role: Primary Care Nurse Care Team Related Persons Name: LIVIA MAXWELL Address: home [address] [place] [address] Name: DINA MAXWELL Address: home [address] [place] [address]
--- OUTSIDE RECORDS SUMMARY | 2024-01-05 22:57 | XMS_ITS | Continuity of Care Document ---
Author Organization [facility] Address [address] [place] [address]- Care Team Providers Care Flight Operations Inspector Name Role Phone Jaci GOLD, Garrison Swan Primary Care Physician [phone] Encounter [facility] Date(s): 12/04/20 - 01/03/21 [facility] [address] [place] [address]- Allergies, Adverse Reactions, Alerts Substance Reaction Severity [...] Vaccine (oldterm) 03/08/00 Given 1Result Comment: [12/09/2017] [id number] 2Result Comment: [04/15/2015 Uncharted] Pt had influenza vaccine 12/12/15- 3Admin Note: PT had the flu shot done at [facility] Flu clinic 4Admin Note: GIVEN IN CL[facility]IC [facility] 5Admin Note: [facility] 6Admin Note: [employer] 7Admin Note: GIVEN AT OUTSIDE CLINIC [...] Maintenance,08/07/20 13:57:00 EDT, Route to Pharmacy Electronically, [facility]/pharmacy #[id number], Partial fill upon patient request if the prescription is for a schedule II... Start Date: 08/07/20 Stop Date: 08/02/21 Status: Ordered clopidogrel 75 mg oral tablet 1, tablet, By Mouth, Daily, # 30 tablet, Refills 5, Tot. Refills 0, Maintenance, 10/04/20 11:01:00 EDT, Route to Pharmacy Electronically, [facility] STORE 19263, 160, cm, 08/30/20 13:24:00 EDT, Height, 56.5, kg, 07/18/20 15:54:00 EDT, Dry Weight Start Date: 10/04/20 Status: Ordered Lasix 40 mg oral tablet 40 mg, 1, tablet, By Mouth, Daily, # 30 tablet, Refills 11, Tot. Refills 11, Maintenance, 04/29/20 9:22:00 EST, Route to Pharmacy Electronically, [facility]/pharmacy #[id number], Partial fill upon patient requestif the prescription is for a schedule II opioid symone... Start Date: 04/29/20 Stop Date: 04/24/21 Status: Ordered lisinopril 2.5 mg oral tablet 2.5 mg, 1, tablet, By Mouth, Daily, # 30 tablet, Refills 11, Tot. Refills 11, Maintenance, 10/25/2111:27:00 EDT, [facility] Partial fill upon patient request [...] 4colo 2004 nl, rpt 2013 5MI 2019 17003; no repeat due to age 7restarted HCTZ; will monitor 8holding hctz ;recheck 9Antibody positive 10thought to be medication related by neurology Social History Social History Type Response Smoking Status Never (less than 100 in lifetime) entered on: 12/02/20 Sex
--- OUTSIDE RECORDS SUMMARY | 2024-01-05 22:58 | XMS_ITS | Continuity of Care Document ---
Author Organization [facility] Address [address] [address]- Care Team Providers Care Military Lawyer Name Role Phone Garrison Beatty MD Primary Care Physician [facility] Date[facility]s): 04/[facility]/20 - 05/09/20 [facility] [address] [place] [address]- Allergies, Adverse Reactions, Alerts Substance Reaction Severity [...] Vaccine (oldterm) 03/08/00 Given 1Result Comment: [12/09/2017] [id number] 2Result Comment: [04/15/2015 Uncharted] Pt had influenza vaccine 12/12/15- 3Admin Note: PT had the flu shot done at [facility] 4Admin Note: GIVEN IN [facility] 5Admin Note: [facility] 6Admin Note: [employer] [facility] 7Admin Note: GIVEN AT [...] 04/29/20 7:44:00 EST, Route to Pharmacy Electronically, [facility] STORE 05174, 160, cm, 04/25/20 9:48:00 EST, Height, 62, [...] 04/29/20 9:22:00 EST, Route to Pharmacy Electronically, [facility]/pharmacy #[id number], Partial fill upon patient requestif the prescription is for a schedule II opioid symone... Start Date: 04/29/20 Stop Date: 04/24/21 Status: Ordered lisinopril 5 mg oral tablet 5 mg, 1, tablet, By Mouth, Daily, # 30 tablet, Refills 3, Tot. Refills 3, Maintenance, 04/25/20 10:36:00 EST, Route to Pharmacy Electronically, [facility]/pharmacy #[id number], Partial fill upon patient [...] 03/20/20 10:44:00 EST, Route to Pharmacy Electronically, [facility]/pharmacy #[id number], Partial fill upon patient request if the prescription is for a schedule II opioid drug... Start Date: 03/20/20 Status: Ordered potassium chloride 10 mEq oral tablet, extended release 2 tablet = 20 mEq, By Mouth, Daily in AM, # 60 tablet, 5 Refills, Maintenance, 04/29/20 9:23:00 EST, ER Tablet, [facility]/pharmacy #7111, Partial fill upon patient [...] 4colo 2003 nl, rpt 2013 5MI 2019 33174; no repeat due to age 7restarted HCTZ; will monitor 8holding hctz ;recheck 9Antibody positive 10thought to be medication related by neurology Social History Social History Type Response Smoking Status Never smoker; Tobacc o user in household: No entered on: 07/05/14 Sex
--- OUTSIDE RECORDS SUMMARY | 2024-01-05 22:58 | XMS_ITS | Continuity of Care Document ---
Author Organization [facility] Address [address] [place] [address]- Care Team Providers Care Distillery Worker Name Role Phone Garrison Beatty MD Primary Care Physician Encounter [facility] Date(s): 03/15/19 - 07/13/19 [facility] [address] [place] [address]- [facility] Attending Physician: Darryn Ledezma MD Admitting Physician: Darryn eLdezma MD Referring Physician: Darryn Ledezma MD Allergies, [...] Vaccine (oldterm) 03/08/00 Given 1Result Comment: [12/09/2017] [id number] 2Result Comment: [04/15/2015 Uncharted] Pt had influenza vaccine 12/12/15- 3Admin Note: PT had the flu shot done at [facility] Flu clinic 4Admin Note: GIVEN IN CLINIC [facility] 5Admin Note: [employer] [facility] 6Admin Note: [employer] [facility] 7Admin Note: GIVEN AT OUTSIDE CLINIC [...] 06/02/19 12:46:00 EDT, Route to Pharmacy Electronically, [facility] # [id number], 155.5, cm, 02/17/19 10:28:00 [...] colo 2008 4colo 2003 nl, rpt 2013 19903; no repeat due to age 6restarted HCTZ; will monitor 7holding hctz ;recheck 8Antibody positive 9thought to be medication related by neurology Social History Social History Type Response Smoking Status Never smoker; Tobacc o user in household: No entered on: 07/05/14 Sex
--- OUTSIDE RECORDS SUMMARY | 2024-01-05 22:58 | XMS_ITS | Continuity of Care Document ---
Author Organization [facility] Address [address] [place] [address]- Care Team Providers Care Reimbursement Liaison Name Role Phone Garrison Beatty MD Primary Care Physician [phone] [facility]counter [facility] Date[facility]s): 04/10/20 - 05/10/20 [facility] [address] [place] [address]- Allergies, Adverse Reactions, Alerts Substance Reaction Severity [...] Vaccine (oldterm) 03/08/00 Given 1Result Comment: [12/09/2017] [id number] 2Result Comment: [04/15/2015 Uncharted] Pt had influenza vaccine 12/12/15- 3Admin Note: PT had the flu shot done at [facility] Flu clinic 4Admin Note: GIVEN IN CL[facility]IC [facility] 5Admin Note: [employer] [facility] 6Admin Note: [email or web address] [facility] [...] 04/29/20 7:44:00 EST, Route to Pharmacy Electronically, [facility] STORE 84338, 160, cm, 04/25/20 9:48:00 EST, Height, 62, [...] to Pharmacy Electronically, [facility]/pharmacy #[id number], Partial fill upon patient requestif the prescription [...] 4colo 2003 nl, rpt 2013 5MI 2019 15012; no repeat due to age 7restarted HCTZ; will monitor 8holding hctz ;recheck 9Antibody positive 10thought to be medication related by neurology Social History Social History Type Response Smoking Status Never smoker; Tobacc o user in household: No entered on: 07/05/14 Sex
--- OUTSIDE RECORDS SUMMARY | 2024-01-05 22:58 | XMS_ITS | Continuity of Care Document ---
Author Organization [facility] Address [address] [place] [address]- Care Team Providers Care Research And Development Manager Name Role Phone Jaci GOLD, Garrison Swan Primary Care Physician [phone] [facility] Date(s): 01/02/21 - 02/01/21 [facility] Adult [address] [place] [address]- Allergies, Adverse Reactions, Alerts Substance Reaction Severity [...] (oldterm) 11/21/18 Recorde d tetanus-diphtheria toxoids (Td) 9/26/16 Given pneumococcal 13-valent vaccine 05/30/14 Given FluLaval (oldterm) 5 12/04/10 Given FluLaval (oldterm) 6 12/27/09 Given Pneumococcal Vacc (oldterm) 06/03/10 Given Tet/Diphth/Acel, Pertussis (oldterm) 09/26/09 Give n Zostavax (oldterm) 06/06/09 Given influ virus vac, H1N1, inactive(oldterm) 7 03/18/09 Given influ virus vac, H1N1, inactive(oldterm) 8 03/18/09 Given Tetanus Toxoid Vaccine (oldterm) 03/08/00 Given 1Result Comment: [12/09/2017] [id number] 2Result Comment: [04/15/2015 Uncharted] Pt had influenza vaccine 12/12/15- 3Admin Note: PT had the flu shot done at [facility] 4Admin Note: GIVEN IN CL[facility]IC [facility] 5Admin Note: [facility] 6Admin Note: [employer] [facility] 7Admin Note: GIVEN AT OUTSIDE CLINIC 8Admin [...] Maintenance,08/07/20 13:57:00 EDT, Route to Pharmacy Electronically, [facility]/pharmacy #[id number], Partial fill upon patient request if the prescription is for a schedule II... Start Date: 08/07/20 Stop Date: 08/02/21 Status: Ordered clopidogrel 75 mg oral tablet 1, tablet, By Mouth, Daily, # 30 tablet, Refills 5, Tot. Refills 0, Maintenance, 10/04/20 11:01:00 EDT, Route to Pharmacy Electronically, [facility] STORE 30871, 160, cm, 08/30/20 13:24:00 EDT, Height, 56.5, kg, 07/18/20 15:54:00 EDT, Dry Weight Start Date: 10/04/20 Status: Ordered Lasix 40 mg oral tablet 40 mg, 1, tablet, By Mouth, Daily, # 30 tablet, Refills 11, Tot. Refills 11, Maintenance, 04/29/20 9:22:00 EST, Route to Pharmacy Electronically, [facility]/pharmacy #[id number], Partial fill upon patient requestif the prescription is for a schedule II opioid symone... Start Date: 04/29/20 Stop Date: 04/24/21 Status: Ordered lisinopril 2.5 mg oral tablet 2.5 mg, 1, tablet, By Mouth, Daily, # 30 tablet, Refills 11, Tot. Refills 11, Maintenance, 10/25/2111:27:00 EDT, [facility] 4colo 2004 nl, rpt 2013 5MI 2019 109[address]; no repeat due to age 7restarted HCTZ; will monitor 8holding hctz ;recheck 9Antibody positive 10thought to be medication related by neurology Social History Social History Type Response Smoking Status Never (less than 100 in lifetime) entered on: 12/02/20 Sex
--- OUTSIDE RECORDS SUMMARY | 2024-01-05 22:58 | XMS_ITS | Continuity of Care Document ---
Author Organization [facility] Address [address] [place] [address]- Care Team Providers Care Head Greenskeeper Name Role Phone Garrison Beatty MD Primary Care Physician [facility] Date[facility]s): 12/01/19 - 12/03/[address] [address]- [facility] Discharge Disposition: A-D/C Home Attending Physician: Radha Short MD Admitting Physician: Eddie Lynch MD Referring Physician: Not on Staff, Referring [...] Vaccine (oldterm) 03/08/00 Given 1Result Comment: [12/09/2017] [id number] 2Result Comment: [04/15/2015 Uncharted] Pt had influenza vaccine 12/12/15- 3Admin Note: PT had the flu shot done at [facility] Flu clinic 4Admin Note: GIVEN IN CLINIC [facility] 5Admin Note: [employer] [facility] 6Admin Note: [employer] [facility] 7Admin Note: GIVEN AT OUTSIDE CLINIC [...] times a day, # 60 tablet, Refills 0, Tot. Refills 0, Maintenance, 12/03/19 13:37:00 EDT, Route to Pharmacy Electronically, [facility]/pharmacy #[id number], 158, cm, 12/03/19 10:35:00 EDT, Height, 60.2, kg, 12/01/19 18:57:00 EDT, Dry... Start Date: 12/03/19 Status: Ordered Depakote 250 mg oral enteric coated tablet 1 tablet, By Mouth, 2 times a day, # 90 tablet, 0 Refills, Maintenance, EC Tablet Start Date: 02/20/10 Status: Ordered levoFLOXacin 750 mg oral tablet 1 tablet = 750 mg, By Mouth, Every 24 hours, for 4 days, diverticulitis, # 4 tablet, 0 Refills, Acute 12/07/19 13:37:00 EDT, 12/03/19 13:37:00 EDT, Tablet, [facility]/pharmacy #[id number], 158, cm, 12/03/19 10:35:00 EDT, Height, 60.2, kg, 12/01/19 18:57:00 EDT, . Start Date: 12/03/19 Stop Date: 12/07/19 Status: Ordered metroNIDAZOLE 500 mg oral tablet 1 tablet = 500 mg, By Mouth, 3 times a day, for 4 days, diverticulitis, # 12 tablet, 0 Refills, Acute 12/07/19 13:37:00 EDT, 12/03/19 13:37:00 EDT, Tablet, [facility]/pharmacy #[id number], 158, cm, 12/03/19 10:35:00 EDT, Height, 60.2, kg, 12/01/19 18:57:00 EDT, . Start Date: 12/03/19 Stop Date: 12/07/19 Status: Ordered Multivitamin 1 tablet, By Mouth, [...] tablet, 11 Refills, Maintenance, 08/21/19 14:11:00 EDT, [facility]/pharmacy #[id number], 155.5, cm, 08/21/19 13:49:00 EDT, [...] colo 2008 4colo 2003 nl, rpt 2013 [address]8940; no repeat due to age 6restarted HCTZ; will monitor 7holding hctz ;recheck 8Antibody positive 9thought to be medication related by neurology Vital Signs Most recent to oldest [Reference Range]: 1 2 3 Height 158 cm (12/03/19 10:35 AM) 158 cm (12/03/19 7:31 AM) 158 cm (12/03/19 4:25 AM) Weight 60.20 kg (12/01/19 6:46 PM) Oxygen Saturation [94-100 %] 99 % (12/03/19 7:31 AM) 98 % (12/03/19 4:25 AM) 98 % (12/02/19 11:35 PM) Pulse Rate [55-90 bpm] 78 bpm (12/03/19 8:39 AM) 78 bpm (12/03/19 7:31 AM) 74 bpm (12/03/19 4:25 AM) Body Mass Index [18.5-24.99] 24.11 (12/01/19 6:46 PM) Blood Pressure [90-138/55-84 mm Hg] 135/62mm Hg (12/03/19 10:35 AM) 185/89mm Hg *H* (12/03/19 8:39 AM) 189/85mm Hg *H* (12/03/19 8:39 AM) Respiratory Rate [16-30 br/min] 19 br/min (12/03/19 7:31 AM) 16 br/min (12/03/19 4:25 AM) 16 br/min (12/02/19 11:35 PM) Temperature [96.8-100.4 DegF] 97.6 DegF (12/03/19 7:31 AM) 98.0 DegF (12/03/19 4:25 AM) 98.4 DegF (12/02/19 11:35 PM) Mode of Delivery (Oxygen) Room air (12/03/19 7:31 AM) Room air (12/03/19 4:25 AM) Room air (12/02/19 11:35 PM) Blood pressure sites Arm, right (12/03/19 10:35 AM) Arm, right (12/03/19 7:31 AM) Arm, right (12/03/19 4:25 AM) Temperature Route Oral (12/03/19 7:31 AM) Oral (12/03/19 4:25 AM) Oral (12/02/19 11:35 PM) Dry Weight 60.20 kg (12/01/19 6:46 PM) Weight Obtained Via Standing scale (12/01/19 6:46 PM) Dry Weight Obtained Via Standing scale (12/01/19 6:46 PM) Mobility assistance Independent (12/02/19 9:00 PM) Social History Social History Type Response Smoking Status Never smoker; Tobacc o user in household: No entered on: 07/05/14 Sex Female
--- OUTSIDE RECORDS SUMMARY | 2024-01-05 22:58 | XMS_ITS | Continuity of Care Document ---
Author Organization [facility] Address [address] [place] [address]- Care Team Providers Care Plastic Joint Maker Name Role Phone Jaci GOLD, Garrison Swan Primary Care Physician [facility] Date[facility]s): 02/27/22 - 03/06/22 [facility] Adult [address] [place] [address]- Attending Physician: Juan R MAYBERRY, Belkis Ayoub Referring Physician: Garrison Beatty MD Allergies, Adverse Reactions, Alerts Substance Reaction Severity Status cephalexin Active nitrofurantoin Active sulfADIAZINE Ciprofloxacin Active predniSONE SEVERE H/A Active statins MYALGIAS Active valsartan 1 Active Macrobid Active 1dizziness [...] 23-valent vaccine 6 07/29/21 Given SARS-CoV-2 mRNA (vndmhxn-ntrj-watjq) vax 06/21/21 Recorded SARS-CoV-2 (COVID-19) mRNA BNT-162b2 [...] Given 1Result Comment: [facility]# [id number] 2Result Comment: [12/09/2017] [id number] 3Result Comment: [04/15/2015 Uncharted] Pt had influenza vaccine 12/12/15- 4Admin Note: PT had the flu shot done at [facility] Flu clinic 5Admin Note: GIVEN IN CLINIC [facility] 6Result Comment: [facility]# [id number] 7Admin Note: [facility] 8Admin Note: [facility] 9Admin Note: GIVEN AT OUTSIDE CLINIC 10Admin Note: per pt rcvd elsewhere Medications amLODIPine 5 mg oral tablet See Instructions, TAKE 1 TABLET BY MOUTH EVERY DAY, # 30 tablet, 5 Refills, Maintenance, 01/01/22 15:18:00 EDT, [email or web address] STORE 89225, 158, cm, 11/27/21 8:19:00 EDT, Height, 63, [...] 02/02/22 16:34:00 EST, [id number] Partial fill upon patient request if the prescription is for a schedule II... Start Date: 02/02/22 Status: Ordered clopidogrel 75 mg oral tablet 1, tablet, By Mouth, Daily, # 30 tablet, Refills 0, Maintenance, 11/06/21 16:29:00 EDT, Route to Pharmacy Electronically, [facility] STORE 95948, 158, cm, 10/02/21 9:27:00 EDT, Height, 63, kg, 07/28/21 1:38:00 EDT, Dry Weight Start Date: 11/06/21 Status: Ordered donepezil 5 mg oral tablet See Instructions, TAKE 1 TABLET BY MOUTH AT BEDTIME, # 30 tablet, Refills 5, Tot. Refills 5, 01/23/22 15:56:00 EST, Instructions Replace Required Details, [id number], cm, 01/21/22 13:27:00 EST, Height, 63... Start Date: 01/23/22 Status: Ordered Lasix 40 mg oral tablet 40 mg, 1, tablet, By Mouth, Daily, # 30 tablet, Refills 11, Tot. Refills 11, Maintenance, 03/12/21 16:08:00 EST, [id number], Partial fill upon patient request if the prescription is for a schedule II opioid dr... Start Date: 03/12/21 Stop Date: 03/07/22 Status: Ordered lisinopril 10 mg oral tablet 10 mg, 1, tablet, By Mouth, 2 times a day, # 180 tablet, Refills 3, Tot. Refills 3, Maintenance, 03/07/22 16:09:00 EST, [id number], Partial fill upon [...] 4colo 2004 nl, rpt 2013 5MI 2019 04658; no repeat due to age 7restarted HCTZ; will monitor 8holding hctz ;recheck 9Per discharge note 03/05/21: Long-standing schizoaffective disorder, bipolar type. 10Antibody positive 11thought to be medication related by neurology Vital Signs Most recent to oldest [Reference Range]: 1 Height 158 cm (02/27/22 1:27 PM) Weight 63.2 kg (02/27/22 1:27 PM) Oxygen Saturation [94-100 %] 98 % (02/27/22 1:27 PM) Pulse Rate [55-90 bpm] 68 bpm (02/27/22 1:27 PM) Body Mass Index [18.5-24.99 kg/m2] 25.32 kg/m2 *H* (02/27/22 1:27 PM) Blood Pressure [90-138/55-84 mm Hg] 126/ 76mm Hg (02/27/22 1:27 PM) Mode of Delivery (Oxygen) Room air (02/27/22 1:27 PM) Weight Obtained Via Standing scale (12/23/22 1:27 PM) Social History Social History Type Response Smoking Status Never (less than 100 in lifetime) entered on: 12/02/20 Sex Patient Care team information Care Team Personnel Name: Carley Vazquez RN Position: S RN Member Role: Primary Care Nurse Name: Geetha MAYBERRY, Annia Gomes Position: [facility] Associate Professional Member Role: Primary Care Nurse Address: Address: [address] [place] [address]- [place] Name: Garrison Beatty MD Position: [facility] Primary Care Physician Member Role: PCP Address: Address: [address] [place] [address]- [place] Name: David Knapp MD Position: [facility] Renal MD Member Role: Lifetime Consulting Physician Address: Address: [address] [facility], [place] [address]- [place] Name: Zabrina Reyes RN Position: S RN Member Role: Primary Care Nurse Name: Melissa Ugarte RN Position: S RN Member Role: Primary Care Nurse Care Team Related Persons Name: LIVIA MAXWELL Address: home [address] [place] [address] Name: DINA MAXWELL Address: home [address] [place] [address]
--- OUTSIDE RECORDS SUMMARY | 2024-01-05 22:58 | XMS_ITS | Continuity of Care Document ---
Author Organization [facility] Address [address] [place] [address]- Care Team Providers Care Pot Room Tapper Name Role Phone Garrison Beatty MD Primary Care Physician [facility]s): 10/02/21 - 11/01/21 [facility] Adult [address] [place] [address]- Attending Physician: Admtr, Ar8 Allergies, Adverse Reactions, Alerts Substance Reaction Severity Status cephalexin Active nitrofurantoin Active statins MYALGIAS Active sulfADIAZINE Ciprofloxacin Active predniSONE SEVERE H/A Active valsartan 1 Active Macrobid Active 1dizziness Immunizations Given and Recorded Vaccine Date Status Refusal Reason pneumococcal 23-valent vaccine 1 07/29/21 Given SARS-CoV-2 mRNA (ueikmfj-gqyx-kfjbh) vax 06/21/21 Recorded influenza virus vaccine, inactivated [...] 12/10/08 Give n influenza virus vaccine, inactivated 12/30/05 Gi cyn SARS-CoV-2 (COVID-19) mRNA BNT-162b2 [...] Toxoid Vaccine (oldterm) 03/08/00 Given 1Result Comment: [facility]# [id number] 2Result Comment: [12/09/2017] [id number] 3Result Comment: [04/15/2015 Uncharted] Pt had influenza vaccine 12/12/15- 4Admin Note: PT had the flu shot done at [facility] Flu clinic 5Admin Note: GIVEN IN CLINIC [facility] 6Admin Note: [employer] [facility] 7Admin Note: [employer] [facility] 8Admin Note: GIVEN AT OUTSIDE CLINIC 9Admin Note: per pt rcvd elsewhere Medications amLODIPine 5 mg oral tablet 5 mg, 1, tablet, By Mouth, Daily, # 30 tablet, Refills 11, Tot. Refills 11, Maintenance, 03/12/21 16:13:00 EST, Route to Pharmacy Electronically, [facility]/pharmacy #[id number], Partial fill upon patient requestif the prescription [...] 11/05/21 12:11:00 EDT, 10/26/21 12:11:00 EDT, [id number] [...] [id number], cm, 03/12/21 13:26:00 EST, Height,60, kg, 01/20/21 16:03:00 EST, Dry Weight Start Date: 03/12/21 Status: Ordered donepezil 5 mg oral tablet See Instructions, TAKE 1 TABLET BY MOUTH AT BEDTIME, # 30 tablet, Refills 2, Instructions Replace Required Details, Route to Pharmacy Electronically, [facility] STORE 11241, 158, cm, 10/02/21 9:27:00 EDT, Height, 63, [...] 03/12/21 16:09:00 EST, Route to Pharmacy Electronically, [facility]/pharmacy #7111, Partial fill upon patient request if the prescription is for a schedule II o... Start Date: 03/12/21 Stop Date: 03/07/22 Status: Ordered magnesium oxide 400 mg oral tablet 1 tablet = 400 mg, By Mouth, Daily, for 30 days, # 30 tablet, 11 Refills, Acute 03/07/22 16:11:00 EST, 03/12/21 16:11:00 EST, Tablet, [facility]/pharmacy #7111, Partial fill upon patient request if [...] Refills, Maintenance, 03/12/21 16:07:00 EST, ER Capsule, [facility]/pharmacy #7111, Partial fill upon patient request if [...] 4colo 2004 nl, rpt 2013 5MI 2019 9[address]; no repeat due to age 7restarted HCTZ; will monitor 8holding hctz ;recheck 9Per discharge note 03/05/21: Long-standing schizoaffective disorder, bipolar type. 10Antibody positive 11thought to be medication related by neurology Social History Social History Type Response Smoking Status Never (less than 100 in lifetime) entered on: 12/02/20 Sex Care Team Personnel Name: Jaci GOLD, Garrison Swan Address: [address] [place] [phone]-
--- OUTSIDE RECORDS SUMMARY | 2024-01-05 22:58 | XMS_ITS | Continuity of Care Document ---
Author Organization [facility] Address [address] [place] [address]- Care Team Providers Care Stave Block Splitter Name Role Phone Garrison Beatty MD Primary Care Physician Encounter [facility] Date(s): 07/27/19 - 08/26/19 [facility] [address] [place] [address]- [facility] Attending Physician: Renetta Strickland Admitting Physician: AdmRenetta webb Referring Physician: Admtr, Renetta Allergies, Adverse Reactions, Alerts Substance Reaction Severity [...] Vaccine (oldterm) 03/08/00 Given 1Result Comment: [12/09/2017] [id number] 2Result Comment: [04/15/2015 Uncharted] Pt had influenza vaccine 12/12/15- 3Admin Note: PT had the flu shot done at [facility] Flu clinic 4Admin Note: GIVEN IN CLINIC [facility] 5Admin Note: [facility] 6Admin Note: [facility] 7Admin Note: GIVEN AT OUTSIDE CLINIC [...] 08/21/19 14:11:00 EDT, Route to Pharmacy Electronically, [facility]/pharmacy #7111, 155.5, cm, 08/21/19 13:49:00 EDT, Height [...] colo 2008 4colo 2003 nl, rpt 2013 22395; no repeat due to age 6restarted HCTZ; will monitor 7holding hctz ;recheck 8Antibody positive 9thought to be medication related by neurology Social History Social History Type Response Smoking Status Never smoker; Tobacc o user in household: No entered on: 07/05/14 Sex
--- OUTSIDE RECORDS SUMMARY | 2024-01-05 22:58 | XMS_ITS | Continuity of Care Document ---
Author Organization [facility] Yon lt Address [address] [place] [address]- Care Team Providers Care Endless Bed Drum Sander Name Role Phone Jaci GOLD, Garrison Swan Primary Care Physician [facility] - 02/15/22 [facility] Adult [address] [place] [address]- Allergies, Adverse Reactions, Alerts Substance Reaction Severity [...] 23-valent vaccine 6 07/29/21 Given SARS-CoV-2 mRNA (qkjoqnq-[id number]-rzhiy) vax 06/21/21 Recorded SARS-CoV-2 (COVID-19) mRNA BNT-162b2 [...] Vaccine (oldterm) 03/08/00 Given 1Result Comment: [facility]# [id number] 2Result Comment: [12/09/2017] [id number] 3Result Comment: [04/15/2015 Uncharted] Pt had influenza vaccine 12/12/15- 4Admin Note: PT had the flu shot done at [facility] Flu clinic 5Admin Note: GIVEN IN CL[facility]IC [facility] 6Result Comment: [facility]# [id number] 7Admin Note: [employer] [facility] 8Admin Note: [employer] [facility] 9Admin Note: GIVEN AT OUTSIDE CLINIC 10Admin Note: per pt rcvd elsewhere Medications amLODIPine 5 mg oral tablet See Instructions, TAKE 1 TABLET BY MOUTH EVERY DAY, # 30 tablet, 5 Refills, Maintenance, 01/01/22 15:18:00 EDT, [facility] STORE 46652, 158, cm, 11/27/21 8:19:00 EDT, Height, 63, [...] 02/02/22 16:34:00 EST, [id number] Partial fill upon patient request if the prescription is for a schedule II... Start Date: 02/02/22 Status: Ordered clopidogrel 75 mg oral tablet 1, tablet, By Mouth, Daily, # 30 tablet, Refills 0, Maintenance, 11/06/21 16:29:00 EDT, Route to Pharmacy Electronically, [facility] STORE 54973, 158, cm, 10/02/21 9:27:00 EDT, Height, 63, kg, 07/28/21 1:38:00 EDT, Dry Weight Start Date: 11/06/21 Status: Ordered donepezil 5 mg oral tablet See Instructions, TAKE 1 TABLET BY MOUTH AT BEDTIME, # 30 tablet, Refills 5, Tot. Refills 5, 01/23/22 15:56:00 EST, Instructions Replace Required Details, [id number], 158, cm, 01/21/22 13:27:00 EST, Height, 63... Start Date: 01/23/22 Status: Ordered Lasix 40 mg oral tablet 40 mg, 1, tablet, By Mouth, Daily, # 30 tablet, Refills 11, Tot. Refills 11, Maintenance, 03/12/21 16:08:00 EST, [id number], Partial fill upon patient request if the prescription is for a schedule II opioid dr... Start Date: 03/12/21 Stop Date: 03/07/22 Status: Ordered lisinopril 10 mg oral tablet 10 mg, 1, tablet, By Mouth, 2 times a day, # 180 tablet, Refills 3, Tot. Refills 3, Maintenance, 03/07/22 16:09:00 EST, [id number] Partial fill upon patientrequest if the prescription is for a schedule II op... Start Date: 03/07/22 Status: Ordered magnesium oxide 400 mg oral tablet 1 tablet = 400 mg, By Mouth, Daily, for 30 days, # 30 tablet, 11 Refills, Acute 03/07/22 16:11:00 EST, 03/12/21 16:11:00 EST, Tablet, [facility]/pharmacy #[id number], Partial fill upon patient [...] Refills, Maintenance, 01/23/22 15:28:00 EST, ER Capsule, [facility]/pharmacy #7111, Partial fill upon patient [...] 4colo 2004 nl, rpt 2013 5MI 2019 89616; no repeat due to age 7restarted HCTZ; [...] Care Nurse Name: Annia Iniguez NP Position: [facility] Associate Professional Member Role: Primary Care Nurse Address: Address: [address] [place] [address]- [place] Name: Garrison Beatty MD Position: [facility] Primary Care Physician Member Role: PCP Address: Address: [address] [place] [address]- [place] Name: David Knapp MD Position: [facility] Renal MD Member Role: Lifetime Consulting Physician Address: Address: [address] [facility] [place] [address]- [place] Name: Zabrina Reyes RN Position: [facility] RN Member Role: Primary Care Nurse Name: Torito COONEY, Melissa Position: [facility] RN Member Role: Primary Care Nurse Care Team Related Persons Name: LIVIA MAXWELL Address: [address] [address] Name: DINA MAXWELL Address: [address] [address]
--- OUTSIDE RECORDS SUMMARY | 2024-01-05 22:58 | XMS_ITS | Continuity of Care Document ---
Author Organization [facility] Yon lt Address [address] [place] [address]- Care Team Providers Care Metal Cans Supervisor Name Role Phone Jaci GOLD, Garrison Swan Primary Care Physician [phone] [facility] 11[facility]14/20 - 12/14/20 [facility] Adult [address] [place] [address]- Allergies, Adverse Reactions, Alerts Substance Reaction Severity [...] Vaccine (oldterm) 03/08/00 Given 1Result Comment: [12/09/2017] [id number] 2Result Comment: [04/15/2015 Uncharted] Pt had influenza vaccine 12/12/15- 3Admin Note: PT had the flu shot done at [facility] Flu clinic 4Admin Note: GIVEN IN CL[facility]IC [facility] 5Admin Note: [employer] [facility] 6Admin Note: [employer] [facility] 7Admin Note: GIVEN AT OUTSIDE CLINIC 8Admin [...] Maintenance,08/07/20 13:57:00 EDT, Route to Pharmacy Electronically, [facility]/pharmacy #[id number], Partial fill upon patient request if the prescription is for a schedule II... Start Date: 08/07/20 Stop Date: 08/02/21 Status: Ordered clopidogrel 75 mg oral tablet 1, tablet, By Mouth, Daily, # 30 tablet, Refills 5, Tot. Refills 0, Maintenance, 10/04/20 11:01:00 EDT, Route to Pharmacy Electronically, [facility] STORE 44280, 160, cm, 08/30/20 13:24:00 EDT, Height, 56.5, [...] 12/16/20 10:45:00 EDT, 12/02/20 10:45:00 EDT, Film, [facility]/pharmacy #[id number], Partial fill upon patient request if the prescription is for a schedule II opioid drug... Start Date: 12/02/20 Stop Date: 12/16/20 Status: Ordered lisinopril 2.5 mg oral tablet 2.5 mg, 1, tablet, By Mouth, Daily, # 30 tablet, Refills 11, Tot. Refills 11, Maintenance, 10/25/2111:27:00 EDT, Route to Pharmacy Electronically, [facility]/pharmacy #7111, [...] 4colo 2004 nl, rpt 2013 5MI 2019 [address]; no repeat due to age 7restarted HCTZ; will monitor 8holding hctz ;recheck 9Antibody positive 10thought to be medication related by neurology Social History Social History Type Response Smoking Status Never (less than 100 in lifetime) entered on: 12/02/20 Sex
--- OUTSIDE RECORDS SUMMARY | 2024-01-05 22:58 | XMS_ITS | Continuity of Care Document ---
Author Organization [facility] Yon lt Address [address] [place] [address]- Care Team Providers Care Foreign Agent Name Role Phone Jaci GOLD, Garrison Swan Primary Care Physician [facility] 12[facility]16/21 - 01/15/22 [facility] Adult [address] [place] [address]- Allergies, Adverse Reactions, Alerts Substance Reaction Severity [...] 23-valent vaccine 6 07/29/21 Given SARS-CoV-2 mRNA (nvwvpoz-udip-iemqd) vax 06/21/21 Recorded SARS-CoV-2 (COVID-19) mRNA BNT-162b2 [...] 03/08/00 Given 1Result Comment: [facility]# [id number] 2Result Comment: [12/09/2017] [id number] 3Result Comment: [04/15/2015 Uncharted] Pt had influenza vaccine 12/12/15- 4Admin Note: PT had the flu shot done at [facility] Flu clinic 5Admin Note: GIVEN IN [facility]IC [facility] 6Result Comment: [facility]# [id number] 7Admin Note: [employer] [facility] 8Admin Note: [employer] [facility] 9Admin Note: GIVEN AT OUTSIDE CLINIC 10Admin Note: per pt rcvd elsewhere Medications amLODIPine 5 mg oral tablet See Instructions, TAKE 1 TABLET BY MOUTH EVERY DAY, # 30 tablet, 5 Refills, Maintenance, 01/01/22 15:18:00 EDT, [employer], an [facility] STORE 50355, 158, cm, 11/27/21 8:19:00 EDT, Height, 63, [...] 10/13/21 14:45:00 EDT, Route to Pharmacy Electronically, [facility]/pharmacy #[id number], Partial fill upon patient request if the prescription is for a schedule II o... Start Date: 10/13/21 Status: Ordered clopidogrel 75 mg oral tablet 1, tablet, By Mouth, Daily, # 30 tablet, Refills 0, Maintenance, 11/06/21 16:29:00 EDT, Route to Pharmacy Electronically, [facility] STORE 94359, 158, cm, 10/02/21 9:27:00 EDT, Height, 63, kg, 07/28/21 1:38:00 EDT, Dry Weight Start Date: 11/06/21 Status: Ordered donepezil 5 mg oral tablet See Instructions, TAKE 1 TABLET BY MOUTH AT BEDTIME, # 30 tablet, Refills 2, Instructions Replace Required Details, Route to Pharmacy Electronically, [facility] STORE 95591, 158, cm, 10/02/21 9:27:00 EDT, Height, 63, kg, 07/28/21 1:38:00 EDT, Dry Weight Start Date: 10/16/21 Status: Ordered Lasix 40 mg oral tablet 40 mg, 1, tablet, By Mouth, Daily, # 30 tablet, Refills 11, Tot. Refills 11, Maintenance, 03/12/21 16:08:00 EST, Route to Pharmacy Electronically, [facility]/pharmacy #[id number], Partial fill upon patient request if the prescription is for a schedule II opioid dr... Start Date: 03/12/21 Stop Date: 03/07/22 Status: Ordered levoFLOXacin 250 mg oral tablet 1 tablet = 250 mg, By Mouth, Every 24 hours, for 7 days, # 7 tablet, 0 Refills, Acute 01/16/22 13:21:00 EST, 01/09/22 13:21:00 EDT, Tablet, [facility]/pharmacy #[id number], Partial fill upon patient request if the prescription is for a schedule II opioid drug., 15... Start Date: 01/09/22 Stop Date: 01/16/22 Status: Ordered lisinopril 10 mg oral tablet 10 mg, 1, tablet, By Mouth, 2 times a day, for 30 days, # 60 tablet, Refills 11, Tot. Refills 11, Hard Stop 03/07/22 16:09:00 EST, 03/12/21 16:09:00 EST, Route to Pharmacy Electronically, [facility]/pharmacy #[id number], Partial fill upon patient request if the pr... Start Date: 03/12/21 Stop Date: 03/07/22 Status: Ordered lisinopril 10 mg oral tablet 10 mg, 1, tablet, By Mouth, 2 times a day, # 180 tablet, Refills 3, Tot. Refills 3, Maintenance, 03/07/22 16:09:00 EST, Route to Pharmacy Electronically, [facility]/pharmacy #[id number], Partial fill upon patientrequest if the prescription is for a schedule II op... Start Date: 03/07/22 Status: Ordered magnesium oxide 400 mg oral tablet 1 tablet = 400 mg, By Mouth, Daily, for 30 days, # 30 tablet, 11 Refills, Acute 03/07/22 16:11:00 EST, 03/12/21 16:11:00 EST, Tablet, [facility]/pharmacy #[id number], Partial fill upon [...] Refills, Maintenance, 03/12/21 16:07:00 EST, ER Capsule, [facility]/pharmacy #[id number], Partial fill upon [...] 4colo 2004 nl, rpt 2013 5MI 2019 [address]; no repeat due to age 7restarted HCTZ; [...] Nurse Name: Geetha MAYBERRY, Annia Gomes Position: [facility] Associate Professional Member Role: Primary Care Nurse Address: Address: [address] [place] [address]- [place] Name: Garrison Beatty MD Position: [facility] Primary Care Physician Member Role: PCP Address: Address: [address] [place] [address]- [place] Name: David Knapp MD Position: [facility] Renal MD Member Role: Lif[employer] Consulting Physician Address: Address: [address] [facility] [address] [facility] [place] [address]- [place] Name: Zabrina Reyes RN Position: S RN Member Role: Primary Care Nurse Name: Melissa Ugarte RN Position: S RN Member Role: Primary Care Nurse Care Team Related Persons Name: LIVIA MAXWELL Address: [address] [place] [address] Name: DINA MAXWELL Address: home [address] [place] [address]
--- OUTSIDE RECORDS SUMMARY | 2024-01-05 22:58 | XMS_ITS | Continuity of Care Document ---
Author Organization [facility]on Yon lt Address [address] [place] [address]- Care Team Providers Care Transmission Maintenance Supervisor Name Role Phone Garrison Beatty MD Primary Care Physician [phone] [facility] 12[facility]24[facility]23 - 12/31/23 [facility] Adult [address] [place] [address]- Attending Physician: Garrison Beatty MD Allergies, Adverse Reactions, Alerts Substance Reaction Severity Status cephalexin Active nitrofurantoin Active statins MYALGIAS Active sulfADIAZINE Ciprofloxacin Active predniSONE SEVERE H/A Active valsartan 1 Active 1dizziness Immunizations Given and Recorded Vaccine Date Status Refusal Reason SARS-CoV-2(COVID-19)mRNA-LNP vac([id number]) 11/06/23 Recorded SARS-CoV-2(COVID-19)mRNA-LNP vac([id number]) 11/26/22 Recorded influenza virus vaccine, inactivated 10/31/23 Cachorro rded influenza virus vaccine, inactivated 11/05/22 Cach[employer] rded [...] virus vaccine, inactivated 3 12/30/05 Gi cyn RSV vaccine, preF A-preF B, recombinant 03/23/23 R ecorded [id number] 12y+ bivalent booster vax 08/06/22 Recorded [id number] 12y+ bivalent booster vax 12/13/21 Recorded pneumococcal 23-valent vaccine 4 07/29/21 Given SARS-CoV-2 mRNA ([id number]-yduj-tdzvs) vax 06/21/21 Recorded SARS-CoV-2 (COVID-19) mRNA BNT-162b2 [...] Vaccine (oldterm) 03/08/00 Given 1Result Comment: [facility]# [id number] 2Result Comment: [12/09/2017] [id number] 3Admin Note: GIVEN IN [facility] 4Result Comment: [facility]# [id number] 5Admin Note: [employer] 6Admin Note: [employer] 7Admin Note: GIVEN AT OUTSIDE CLINIC 8Admin Note: per pt rcvd elsewhere Medications amLODIPine 5 mg oral tablet 1 tablet, By Mouth, Daily, # 30 tablet, 5 Refills, Maintenance, 08/30/23 14:03:00 EDT, [facility], 157.5, cm, 08/16/23 12:48:00 EDT, Height, 59.5, kg, 06/03/22 14:32:00 EDT, Dry Weight Start Date: 08/30/23 Status: Ordered Aspirin Low Dose 81 mg oral delayed release tablet 1 tablet, By Mouth, Daily, # 30 tablet, 5 Refills, Maintenance, 08/10/23 12:27:00 EDT, [facility] STORE 05873, 157.5, cm, 06/22/23 15:03:00 EDT, Height, 59.5, kg, 06/03/22 14:32:00 EDT, Dry Weight Start Date: 08/10/23 Status: Ordered betamethasone-clotrimazole 0.05%-1% topical cream 1 application, Topically, 2 times a day, # 45 Gm, 0 Refills, Maintenance, 12/24/23 14:05:00 EDT, Cream, [facility]/pharmacy #[id number], Partial fill upon patient request if the prescription is for a schedule II opioid drug., 1 application Topically 2 times a day,... Start Date: 12/24/23 Status: Ordered carvedilol 6.25 mg oral tablet 1, tablet, By Mouth, 2 times a day, # 180 tablet, Refills 1, Tot. Refills 1, Maintenance, 07/24/23 15:25:00 EDT, Route to Pharmacy Electronically, [facility]/pharmacy #[id number], 157.5, cm, 06/22/23 15:03:00 EDT, Height, 59.5, kg, 06/03/22 14:32:00 EDT, Dry Weight Start Date: 07/24/23 Status: Ordered Daily Brielle oral tablet 1 tablet, By Mouth, Daily, # 30 tablet, 11 Refills, Maintenance, 02/15/23 12:26:00 EST, [facility], 30, TAKE 1 TABLET BY MOUTH EVERY DAY, 157.5, cm, 08/04/22 8:48:00 EDT, Height, 59.5, kg, 06/03/22 14:32:00 EDT, Dry Weight Start Date: 02/15/23 Status: Ordered furosemide 40 mg oral tablet 1, tablet, By Mouth, Daily, # 30 tablet, Refills 5, Maintenance, 09/06/23 9:51:00 EDT, Route to Pharmacy Electronically, [facility] STORE 93677, 157.5, cm, 08/16/23 12:48:00 EDT, Height, 59.5, kg, 06/03/22 14:32:00 EDT, Dry Weight Start Date: 09/06/23 Status: Ordered lisinopril 10 mg oral tablet 1, tablet, By Mouth, 2 times a day, # 180 tablet, Refills 3, Maintenance, 01/25/23 11:53:00 EST, Route to Pharmacy Electronically, [facility], 157.5, cm, 08/04/22 8:48:00 EDT, Height, 59.5, [...] capsule, 3 Refills, Maintenance, 02/11/23 7:48:00 EST, [facility] STORE 72028, 157.5, cm, 08/04/22 8:48:00 EDT, Height, 59.5, kg, 06/03/22 14:32:00 EDT, Dry Weight Start Date: 02/11/23 Status: Ordered Vitamin D3 1000 intl units oral capsule 1 capsule, By Mouth, Daily, # 30 capsule, 5 Refills, Maintenance, 08/30/23 14:04:00 EDT, [facility], 157.5, cm, 08/16/23 12:48:00 EDT, Height, 59.5, [...] 4colo 2004 nl, rpt 2013 5MI 2019 [address]; no repeat due to age 7restarted HCTZ; will monitor 8holding hctz ;recheck 9Per discharge note 03/05/21: Long-standing schizoaffective disorder, bipolar type. 10Antibody positive 11thought to be medication related by neurology Vital Signs Most recent to oldest [Reference Range]: 1 Height 157.50 cm (12/24/23 1:41 PM) Weight 60.2 kg (12/24/23 1:41 PM) Oxygen Saturation [94-100 %] 98 % (12/24/23 1:41 PM) Pulse Rate [55-90 bpm] 68 bpm (12/24/23 1:41 PM) Body Mass Index [18.5-24.99 kg/m2] 24.27 kg/m2 (12/24/23 1:41 PM) Blood Pressure [90-138/55-84 mm Hg] 135/ 68mm Hg (12/24/23 1:41 PM) Temperature [96.8-100.4 DegF] 98.3 DegF (12/24/23 1:41 PM) Mode of Delivery (Oxygen) Room air (12/24/23 1:41 PM) Blood pressure sites Arm, left (12/24/23 1:41 PM) Temperature Route Oral (12/24/23 1:41 PM) Weight Obtained Via Standing scale (12/24/23 1:41 PM) Social History Social History Type Response Smoking Status Never (less than 100 in lifetime) entered on: 12/02/20 Sex Patient Care team information Care Team Personnel Name: Zabrina Prince RN Position: [facility] ED RN W/OE and Tasks Member Role: Primary Care Nurse Name: Carley Vazquez RN Position: [facility] RN Member Role: Primary Care Nurse Name: Geetha MAYBERRY, Annia Gomes Position: [facility] Associate Professional Member Role: Primary Care Nurse Name: Jaci GOLD, Garrison Swan Position: [facility] Physician - Primary Care Member Role: PCP Address: Address: [address] [place] [address]- [place] Name: David Knapp MD Position: [facility] Renal MD Member Role: Lifetime Consulting Physician Address: Address: [address] [place] [address] [address] [facility] [place] [address]- [place] Name: Melissa Ugarte RN Position: [facility] RN Member Role: Primary Care Nurse Care Team Related Persons Name: LIVIA MAXWELL Address: home [address] [place] [address] Name: DINA MAXWELL Address: [address] [address]
--- OUTSIDE RECORDS SUMMARY | 2024-01-05 22:58 | XMS_ITS | Continuity of Care Document ---
Author Organization [facility]on Yon lt Address [address] [place] [address]- Care Team Providers Care Certified Orthotist Name Role Phone Jaci GOLD, Garrison Swan Primary Care Physician [phone] [facility] 02[facility]22 - 03/26/22 [facility] Adult [address] [place] [address]- Allergies, Adverse Reactions, Alerts Substance Reaction Severity Status cephalexin Active nitrofurantoin Active sulfADIAZINE Ciprofloxacin Active predniSONE SEVERE H/A Active valsartan 1 Active statins MYALGIAS Active Macrobid Active 1dizziness Immunizations Given and [...] 23-valent vaccine 6 07/29/21 Given SARS-CoV-2 mRNA (pyzcunv-bscq-wdplg) vax 06/21/21 Recorded SARS-CoV-2 (COVID-19) mRNA BNT-162b2 [...] Toxoid Vaccine (oldterm) 03/08/00 Given 1Result Comment: [facility]# [id number] 2Result Comment: [12/09/2017] [id number] 3Result Comment: [04/15/2015 Uncharted] Pt had influenza vaccine 12/12/15- 4Admin Note: PT had the flu shot done at [facility] Flu clinic 5Admin Note: GIVEN IN CL[facility]IC [facility] 6Result Comment: [facility]# [id number] 7Admin Note: [facility] 8Admin Note: [employer] [facility] 9Admin Note: GIVEN AT OUTSIDE CLINIC 10Admin Note: per pt rcvd elsewhere Medications amLODIPine 5 mg oral tablet See Instructions, TAKE 1 TABLET BY MOUTH EVERY DAY, # 30 tablet, 5 Refills, Maintenance, 01/01/22 15:18:00 EDT, [facility] STORE 66107, 158, cm, 11/27/21 8:19:00 EDT, Height, 63, kg, 07/28/21 1:38:00 EDT, Dry Weight Start Date: 01/01/22 Status: Ordered aspirin 81 mg oral delayed release tablet 81 mg, 1, tablet, By Mouth, Daily, # 30 tablet, Refills 5, Tot. Refills 5, Maintenance, 03/26/22 11:58:00 EST, Route to Pharmacy Electronically, [facility]/pharmacy #5240, Partial fill upon patient request if the prescription is for a schedule II opioid drug... Start Date: 03/26/22 Status: Ordered carvedilol 6.25 mg oral tablet 6.25 mg, 1, tablet, By Mouth, 2 times a day, # 180 tablet, Refills 3, Tot. Refills 3, Maintenance, 02/02/22 16:34:00 EST, [id number] Partial fill upon patient request if the prescription is for a schedule II... Start Date: 02/02/22 Status: Ordered clopidogrel 75 mg oral tablet 1, tablet, By Mouth, Daily, # 30 tablet, Refills 5, Tot. Refills 5, Maintenance, 03/26/22 11:55:00 EST, [facility], 158, cm, 02/27/22 13:27:00 EST, Height, 63, kg, 07/28/21 1:38:00 EDT, Dry Weight Start Date: 03/26/22 Status: Ordered Daily Brielle oral tablet 1 tablet, By Mouth, Daily, # 30 tablet, 11 Refills, Maintenance, 03/18/22 11:57:00 EST, [facility] STORE 67454, 30, TAKE 1 TABLET BY MOUTH EVERY DAY, 158, cm, 02/27/22 13:27:00 EST, Height, 63, kg, :38:00 EDT, Dry Weight Start Date: 03/18/22 Status: Ordered donepezil 5 mg oral tablet See Instructions, TAKE 1 TABLET BY MOUTH AT BEDTIME, # 30 tablet, Refills 5, Tot. Refills 5, 01/23/22 15:56:00 EST, Instructions Replace Required Details, [facility], 158, cm, 01/21/22 13:27:00 EST, Height, 63... Start Date: 01/23/22 Status: Ordered High Potency Vitamin D3 25 mcg (1000 intl units) oral capsule 1 capsule = 25 mcg, By Mouth, Daily, # 30 capsule, 5 Refills, Maintenance, 03/26/22 11:54:00 EST, [facility] upon [...] 1Nonfunctional, noted on serial CT scans. 2colo 2011 adenomatous polyp, repeat 2014 3error with fh colon cancer needs colo 2008 4colo 2004 nl, rpt 2013 5MI 201915; no repeat due to age 7restarted HCTZ; will monitor 8holding hctz ;recheck 9Per discharge note 03/05/21: Long-standing schizoaffective disorder, bipolar type. 10Antibody positive 11thought to be medication related by neurology Social History Social History Type Response Smoking Status Never (less than 100 in lifetime) entered on: 12/02/20 Sex Patient Care team information Care Team Personnel Name: Carley Vazquez RN Position: [facility] RN Member Role: Primary Care Nurse Name: Annia Iniguez NP Position: [facility] Associate Professional Member Role: Primary Care Nurse Address: Address: [address] [place] [address]- Name: Garrison Beatty MD Position: [facility] Primary Care Physician Member Role: PCP Address: Address: [address] [place] [address]- [place] Name: David Knapp MD Position: [facility] Renal MD Member Role: Lifetime Consulting Physician Address: Address: [address] [facility] [address] [facility] [address]- Name: Zabrina Reyes RN Position: S RN Member Role: Primary Care Nurse Name: Melissa Ugarte RN Position: [facility] RN Member Role: Primary Care Nurse Care Team Related Persons Name: LIVIA MAXWELL Address: home [address] [place] [address] Name: DINA MAXWELL Address: home [address] [place] [address]
--- OUTSIDE RECORDS SUMMARY | 2024-01-05 22:58 | XMS_ITS | Continuity of Care Document ---
Author Organization [facility] Address [address] [place] [address]- Care Team Providers Care Plugman Name Role Phone Garrison Beatty MD Primary Care Physician [facility]20 - 08/14/20 [facility] [address] [place] [address]- Allergies, Adverse Reactions, Alerts Substance Reaction Severity [...] Vaccine (oldterm) 03/08/00 Given 1Result Comment: [12/09/2017] [id number] 2Result Comment: [04/15/2015 Uncharted] Pt had influenza vaccine 12/12/15- 3Admin Note: PT had the flu shot done at [facility] Flu clinic 4Admin Note: GIVEN IN [facility]IC [facility] 5Admin Note: [facility] 6Admin Note: [facility] 7Admin Note: GIVEN AT OUTSIDE CLINIC 8Admin Note: per pt rcvd elsewhere Medications carvedilol 6.25 mg oral tablet 6.25 mg, 1, tablet, By Mouth, 2 times a day, # 60 tablet, Refills 11, Tot. Refills 11, Maintenance,08/07/20 13:57:00 EDT, Route to Pharmacy Electronically, [facility]/pharmacy #[id number], Partial [...] Refills, Maintenance, 07/24/20 12:45:00EDT, Capsule, [facility]/pharmacy #[id number], [...] EST, Route to Pharmacy Electronically, [facility]/pharmacy #[id number], Partial fill upon patient requestif [...] EST, Route to Pharmacy Electronically, [facility]/pharmacy #[id number], Partial [...] Maintenance, 08/09/20 13:00:00 EDT, Tablet, [facility]/pharmacy #[id number], [...] 4colo 2004 nl, rpt 2013 5MI 2019 16998; no repeat due to age 7restarted HCTZ; will monitor 8holding hctz ;recheck 9Antibody positive 10thought to be medication related by neurology Social History Social History Type Response Smoking Status Never smoker; Tobacc o user in household: No entered on: 07/05/14 Sex
--- OUTSIDE RECORDS SUMMARY | 2024-01-05 22:58 | XMS_ITS | Continuity of Care Document ---
Author Organization [facility] Yon lt Address [address] [place] [address]- Care Team Providers Care Patient Support Partner Name Role Phone Jaci GOLD, Garrison Swan Primary Care Physician [phone] [facility] 08/04/22 - 09/03/22 [facility] Adult [address] [place] [address]- Attending Physician: Admtr, Ar8 Allergies, Adverse Reactions, Alerts Substance Reaction Severity Status cephalexin Active nitrofurantoin Active sulfADIAZINE Ciprofloxacin Active predniSONE SEVERE H/A Active valsartan 1 Active statins MYALGIAS Active 1dizziness Immunizations Given and Recorded Vaccine Date Status Refusal Reason [id number] 12y+ bivalent booster vax 12/13/21 Recorded influenza [...] 23-valent vaccine 6 07/29/21 Given SARS-CoV-2 mRNA ([id number]) vax 06/21/21 Recorded SARS-CoV-2 (COVID-19) mRNA BNT-162b2 [...] Toxoid Vaccine (oldterm) 03/08/00 Given 1Result Comment: [facility]# [id number] 2Result Comment: [12/09/2017] [id number] 3Result Comment: [04/15/2015 Uncharted] Pt had influenza vaccine 12/12/15- 4Admin Note: PT had the flu shot done at [facility] Flu clinic 5Admin Note: GIVEN IN [facility] 6Result Comment: [facility]# [id number] 7Admin Note: [facility] 8Admin Note: [facility] 9Admin Note: GIVEN AT OUTSIDE CLINIC 10Admin Note: per pt rcvd elsewhere Medications amLODIPine 5 mg oral tablet 1 tablet, By Mouth, Daily, # 30 tablet, 5 Refills, Maintenance, 04/17/22 19:41:00 EST, [id number], 158, cm, 02/27/22 13:27:00 EST, Height, 63, kg, 07/28/21 1:38:00 EDT, Dry Weight Start Date: 04/17/22 Status: Ordered aspirin 81 mg oral delayed release tablet 81 mg, 1, tablet, By Mouth, Daily, # 30 tablet, Refills 5, Tot. Refills 5, Maintenance, 03/26/22 11:58:00 EST, Route to Pharmacy Electronically, [facility]/pharmacy #[id number], Partial fill upon patient request if the prescription is for a schedule II opioid drug... Start Date: 03/26/22 Status: Ordered carvedilol 6.25 mg oral tablet 6.25 mg, 1, tablet, By Mouth, 2 times a day, # 180 tablet, Refills 3, Tot. Refills 3, Maintenance, 02/02/22 16:34:00 EST, [id number] Partial fill upon patient request if the prescription is for a schedule II... Start Date: 02/02/22 Status: Ordered clopidogrel 75 mg oral tablet 1, tablet, By Mouth, Daily, # 30 tablet, Refills 5, Tot. Refills 5, Maintenance, 03/26/22 11:55:00 EST, Route to Pharmacy Electronically, [facility]/pharmacy #[id number], 158, cm, 02/27/22 13:27:00 EST, Height, 63, kg, 07/28/21 1:38:00 EDT, Dry Weight Start Date: 03/26/22 Status: Ordered Daily Brielle oral tablet 1 tablet, By Mouth, Daily, # 30 tablet, 11 Refills, Maintenance, 03/18/22 11:57:00 EST, [id number], 30, TAKE 1 TABLET BY MOUTH EVERY DAY, 158, cm, 02/27/22 13:27:00 EST, Height, 63, kg, :38:00 EDT, Dry Weight Start Date: 03/18/22 Status: Ordered donepezil 5 mg oral tablet 1, tablet, By Mouth, Daily at bedtime, # 30 tablet, Refills 2, Maintenance, 05/25/22 16:50:00 EDT, Route to Pharmacy Electronically, [facility], 158, cm, 02/27/22 13:27:00 EST, Height, 63, kg, 07/28/21 1:38:00 EDT, Dry Weight Start Date: 05/25/22 Status: Ordered High Potency Vitamin D3 25 mcg (1000 intl units) oral capsule 1 capsule = 25 mcg, By Mouth, Daily, # 30 capsule, 5 Refills, Maintenance, 03/26/22 11:54:00 EST, [facility]/pharmacy #[id number], Partial fill upon patient request if the prescription is for a schedule II opioiddrug., 158, cm, 02/27/22 13:27:00 EST, Height, 63,... Start Date: 03/26/22 Status: Ordered Lasix 40 mg oral tablet 40 mg, 1, tablet, By Mouth, Daily, # 30 tablet, Refills 5, Tot. Refills 5, Maintenance, 03/26/22 11:53:00 EST, Route to Pharmacy Electronically, [facility]/pharmacy #[id number], Partial fill upon patient request if the prescription is for a schedule II opioid drug... Start Date: 03/26/22 Stop Date: 09/22/22 Status: Ordered lisinopril 10 mg oral tablet 10 mg, 1, tablet, By Mouth, 2 times a day, # 180 tablet, Refills 3, Tot. Refills 3, Maintenance, 03/07/22 16:09:00 EST, Route to Pharmacy Electronically, [facility]/pharmacy #[id number], Partial fill upon patientrequest if the [...] Refills, Maintenance, 01/23/22 15:28:00 EST, ER Capsule, [facility]/pharmacy #[id number], Partial fill upon patient request if [...] 100 in lifetime) entered on: 12/02/20 Sex EKG study * Event Display: EKG Authored Date: Cardiology * Antonia Sinha.: PERFORM Event Display: Cardiovascular Results Scanned Authored Date: [id number] * Antonia Sinha.: PERFORM Event Display: Cardiovascular Results Scanned Authored Date: [id number] Laboratory * Event Display: Non Lab Results Authored Date: XR Chest Views * Event Display: X-Ray Chest Authored Date: * Event Display: X-Ray Chest Authored Date: * Event Display: X-Ray Chest Authored Date: XR Spine Views * Event Display: X-Ray Spine Authored Date: * Event Display: X-Ray Spine Authored Date: * Event Display: X-Ray Spine Authored Date: Radiology * Event Display: CT Scan Abdomen, Non- BH Authored Date: * Event Display: CT Scan Abdomen, Non- BH Authored Date: * Event Display: Radiology Result Scanned Authored Date: * Jasmina Zepeda: PERFORM Event Display: Radiology Results Scanned Authored Date: * Ariana Olson: PERFORM Event Display: Radiology Results Scanned Authored Date: MG Breast Views * Event Display: MM Mammogram Authored Date: Note * Ariana Olson: PERFORM, SIGN, VERIFY Event Display: Patient Education/Instruction Authored Date: [facility] Clinical Summary Person Information Name PERRI MAXWELL Age 68 Years 1945 12:00 AM PCP Garrison Beatty MD PCP Reason for Visit: Allergy Info: NKA Vital Signs Height Weight BMI Blood Pressure / Temperature Pulse Rate Respiratory Rate 02 Sat Mode of Delivery / Medication Information Cholecalciferol (Vitamin D3) 500 mg, Oral, Refills: 0 cinnamon 1,000 mg, Oral, twice a day, Refills: 0 Divalproex Sodium (Depakote 250 mg oral enteric coated tablet) 1 tablet, Oral, twice a day, Refills: 0 Hydrochlorothiazide (hydrochlorothiazide 25 mg oral tablet) 1 tablet, Oral, Daily, Refills: 11 Lisinopril (Zestril 40 mg oral tablet) 1 tablet, Oral, Daily, Refills: 11 Multivitamin , Oral, Daily, Refills: 0 Multivitamin (B Complex 100) , Refills: 0 Olanzapine (Zyprexa 10 mg oral tablet) 1 tablet, Oral, Daily at Bedtime, Refills: 0 [place]-3 Polyunsaturated Fatty Acids , Oral, Refills: 0 Potassium Chloride (Klor-Con 10 10 mEq oral tablet, extended release) 1 tablet, Oral, Daily, FAX [phone] BRAND NAME MEDICALLY NECESSARY NO SUBSTITUTION, Refills: 9 Future Orders Lipid Panel Order Date:08/23/14 - Complete by 09/20/14 CBC Order Date:08/23/14 - Complete by 09/20/14 Comprehensive Metabolic Panel Order Date:08/23/14 - Complete by 09/20/14 Orders Completed this Visit No visit orders documented Problem List Date Problem 09/21/12 H/O psychosis 09/21/12 Tremor of unknown origin 11/21/13 Benign Essential Hypertension 09/21/12 Hypercholesterolemia 09/21/12 Nephrolithiasis 09/21/12 Anxiety 09/21/12 Osteopenia 09/21/12 History of squamous cell carcinoma 11/30/13 Colonoscopy 11/21/13 Hypercalcemia 09/21/12 Diverticulosis of sigmoid colon 09/21/12 Hemorrhoids, external 09/21/12 Major depression 09/22/12 Chronic hypokalemia 09/22/12 Adenomatous polyp of colon 12/29/13 Ultrasound scan abnormal If the following labs have been performed in the last year, the most recent result is displayed below. Diagnostic Results Lab Result Value Date Lead Hemoglobin A1C LDL 125 02/08/14 HDL 53 02/08/14 Triglycerides 259 02/08/14 Total Cholesterol 230 02/08/14 Disclaimer: The information provided is of a general nature and is intended to be used in conjunction with the recommendations and advice of your health care practitioner. Every effort has been made to ensure that the information provided is accurate and complete at the time it is provided to you however, as your needs change, or, as new information becomes available, different or additional instructions may be required. If you have questions, please consult with your primary care provider or pharmacist, as appropriate. This information is not intended to serve as substitution for assessment and evaluation by a qualified health care provider. If you do not have a primary care provider, you may find a [facility] provider by calling [facility] at [phone]. Patient Visit Summary: Follow-Up Instructions Patient Education Materials Additional Instructions: Patient Care team information Care Team Personnel Name: Carley Vazquez RN Position: [facility] RN Member Role: Primary Care Nurse Name: Geetha AIRDROP SYSTEMS TECHNICIAN, Annia Gomes Position: [facility] Associate Professional Member Role: Primary Care Nurse Address: Address: [address] [facility] [place] [address]- [place] Name: Garrison Beatty MD Position: [facility] Physician - Primary Care Member Role: PCP Address: Address: [address], [place] - [place] Name: David Knapp MD Position: [facility] Renal MD Member Role: Lifetime Consulting Physician Address: Address: [address] [facility], [place] [address]- [place] Name: Zabrina Reyes RN Position: S RN Member Role: Primary Care Nurse Name: Melissa Ugarte RN Position: [facility] RN Member Role: Primary Care Nurse Care Team Related Persons Name: LIVIA MAXWELL Address: home [address], [place] Name: DINA MAXWELL Address: home [address] [place] [address]
--- OUTSIDE RECORDS SUMMARY | 2024-01-05 22:58 | XMS_ITS | Continuity of Care Document ---
Author Organization [facility] Address [address] [place] [address]- Care Team Providers Care Fast Food Attendant Name Role Phone Garrison Beatty MD Primary Care Physician [phone] Encounter [facility] Date(s): 03/15/19 - 07/13/19 [facility] [address] [place] [address]- [facility] Attending Physician: Darryn Ledezma MD Admitting [...] Vaccine (oldterm) 03/08/00 Given 1Result Comment: [12/09/2017] [address]-00 2Result Comment: [04/15/2015 Uncharted] Pt had influenza vaccine 12/12/15- 3Admin Note: PT had the flu shot done at [facility] Flu clinic 4Admin Note: GIVEN IN [facility] 5Admin Note: [facility] 6Admin Note: [facility] 7Admin Note: GIVEN AT OUTSIDE CLINIC [...] 06/02/19 12:46:00 EDT, Route to Pharmacy Electronically, [facility] # [id number], 155.5, cm, 02/17/19 10:28:00 [...] colo 2008 4colo 2003 nl, rpt 2013 53453; no repeat due to age 6restarted HCTZ; will monitor 7holding hctz ;recheck 8Antibody positive 9thought to be medication related by neurology Social History Social History Type Response Smoking Status Never smoker; Tobacc o user in household: No entered on: 07/05/14 Sex
--- OUTSIDE RECORDS SUMMARY | 2024-01-05 22:58 | XMS_ITS | Continuity of Care Document ---
Author Organization [facility] Yon [facility] Address [address] [place] [address]- Care Team Providers Care Cnc Laser Operator Name Role Phone Jaci GOLD, Garrison Swan Primary Care Physician [facility]s): 07[facility]09/20 - 08/08/20 [facility] Adult [address] [place] [address]- Allergies, Adverse Reactions, Alerts Substance Reaction Severity [...] Vaccine (oldterm) 03/08/00 Given 1Result Comment: [12/09/2017] [id number] 2Result Comment: [04/15/2015 Uncharted] Pt had influenza vaccine 12/12/15- 3Admin Note: PT had the flu shot done at [facility] Flu clinic 4Admin Note: GIVEN IN [facility] 5Admin Note: [employer] [facility] 6Admin Note: [employer] [facility] 7Admin Note: GIVEN AT OUTSIDE CLINIC 8Admin Note: per pt rcvd elsewhere Medications carvedilol 6.25 mg oral tablet 6.25 mg, 1, tablet, By Mouth, 2 times a day, # 60 tablet, Refills 11, Tot. Refills 11, Maintenance,08/07/20 13:57:00 EDT, Route to Pharmacy Electronically, [facility]/pharmacy #[id number], Partial fill upon patient request [...] capsule, 0 Refills, Maintenance, 07/24/20 12:45:00EDT, Capsule, [facility]/pharmacy #[id number], Partial fill upon patient request if the prescription is for a schedule II opioid drug., 160, cm, 07/23/20 12:27:00 E... Start Date: 07/24/20 Stop Date: 08/07/20 Status: Ordered Lasix 40 mg oral tablet 40 mg, 1, tablet, By Mouth, Daily, # 30 tablet, Refills 11, Tot. Refills 11, Maintenance, 04/29/20 9:22:00 EST, Route to Pharmacy Electronically, [facility]/pharmacy #[id number], Partial fill upon patient requestif [...] 03/20/20 10:44:00 EST, Route to Pharmacy Electronically, [facility]/pharmacy #[id number], Partial fill upon patient request if the prescription is for a schedule II opioid drug... Start Date: 03/20/20 Status: Ordered Vitamin D3 [...] 4colo 2004 nl, rpt 2013 5MI 2019 73181; no repeat due to age 7restarted HCTZ; will monitor 8holding hctz ;recheck 9Antibody positive 10thought to be medication related by neurology Social History Social History Type Response Smoking Status Never smoker; Tobacc o user in household: No entered on: 07/05/14 Sex
--- OUTSIDE RECORDS SUMMARY | 2024-01-05 22:58 | XMS_ITS | Continuity of Care Document ---
Author Organization [facility] Y[facility] Address [address] [place] [address]- Care Team Providers Care Labor Contract Analyst Name Role Phone Jaci GOLD, Garrison Swan Primary Care Physician [phone] [facility] Date[facility]s): 07/08/20 - 08/07/20 [facility] Adult [address] [place] [address]- Allergies, Adverse Reactions, Alerts Substance Reaction Severity [...] Vaccine (oldterm) 03/08/00 Given 1Result Comment: [12/09/2017] [id number] 2Result Comment: [04/15/2015 Uncharted] Pt had influenza vaccine 12/12/15- 3Admin Note: PT had the flu shot done at [facility] Flu clinic 4Admin Note: GIVEN IN [facility] 5Admin Note: [employer] [facility] 6Admin Note: [employer] [facility] 7Admin Note: GIVEN AT OUTSIDE CLINIC 8Admin Note: per pt rcvd elsewhere Medications carvedilol 6.25 mg oral tablet 6.25 mg, 1, tablet, By Mouth, 2 times a day, # 60 tablet, Refills 11, Tot. Refills 11, Maintenance,08/07/20 13:57:00 EDT, Route to Pharmacy Electronically, [facility]/pharmacy #[id number], Partial fill upon [...] Refills, Maintenance, 07/24/20 12:45:00EDT, Capsule, [facility]/pharmacy #[id number], Partial fill upon patient request if the prescription is for a schedule II opioid drug., 160, cm, 07/23/20 12:27:00 E... Start Date: 07/24/20 Stop Date: 08/07/20 Status: Ordered Lasix 40 mg oral tablet 40 mg, 1, tablet, By Mouth, Daily, # 30 tablet, Refills 11, Tot. Refills 11, Maintenance, 04/29/20 9:22:00 EST, Route to Pharmacy Electronically, [facility]/pharmacy #[id number], Partial fill upon [...] EST, Route to Pharmacy Electronically, [facility]/pharmacy #[id number], Partial fill upon [...] 4colo 2004 nl, rpt 2013 5MI 2019 90881; no repeat due to age 7restarted HCTZ; will monitor 8holding hctz ;recheck 9Antibody positive 10thought to be medication related by neurology Social History Social History Type Response Smoking Status Never smoker; Tobacc o user in household: No entered on: 07/05/14 Sex
--- OUTSIDE RECORDS SUMMARY | 2024-01-05 22:58 | XMS_ITS | Continuity of Care Document ---
Author Organization [facility] Cayden Ontiveros Yon lt Address [address] [place] [address]- Care Team Providers Care Business Assistant Name Role Phone Garrison Beatty MD Primary Care Physician Encounter [facility] Date(s): 08/21/19 - 08/28/19 [facility] Cayden Andradeley Adult [address] [place] [address]- [facility] Encounter Diagnosis Hypercholesterolemia(Discharge Diagnosis) - 08/21/19 Benign Essential Hypertension(Discharge Diagnosis) - 08/21/19 Major depression(Discharge Diagnosis) - 08/21/19 H/O psychosis(Discharge Diagnosis) - 08/21/19 Attending Physician: Garrison Beatty MD Allergies, Adverse [...] (oldterm) 5 12/04/10 Given FluLaval (oldterm) 6 10/22/10 Given Pneumococcal Vacc (oldterm) 06/03/10 Given Tet/Diphth/Acel, Pertussis (oldterm) 09/26/09 Give n Zostavax (oldterm) 06/06/09 Given influ virus vac, H1N1, inactive(oldterm) 7 03/18/09 Given influ virus vac, H1N1, inactive(oldterm) 8 03/18/09 Given Tetanus Toxoid Vaccine (oldterm) 03/08/00 Given 1Result Comment: [12/09/2017] [id number] 2Result Comment: [04/15/2015 Uncharted] Pt had influenza vaccine 12/12/15- 3Admin Note: PT had the flu shot done at [facility] Flu clinic 4Admin Note: GIVEN IN [facility] 5Admin Note: [facility] 6Admin Note: [facility] 7Admin Note: GIVEN AT OUTSIDE CLINIC 8Admin [...] 08/21/19 14:11:00 EDT, Route to Pharmacy Electronically, [facility]/pharmacy #[id number], 155.5, cm, 08/21/19 13:49:00 EDT, Height Start [...] colo 2008 4colo 2003 nl, rpt 2013 52330; no repeat due to age 6restarted HCTZ; will monitor 7holding hctz ;recheck 8Antibody positive 9thought to be medication related by neurology Diagnosis Diagnosis Type Effective Dates Health Status Clinical Service Informant Hypercholesterolemia Discharge Diagnosis 08/21/19 Benign Essential Hypertension Discharge Diagnosis 08/21/19 Major depression Discharge Diagnosis 08/21/19 H/O psychosis Discharge Diagnosis 08/21/19 Vital Signs Most recent to oldest [Reference Range]: 1 Height 155.5 cm (08/21/19 1:49 PM) Weight 63.3 kg (08/21/19 1:49 PM) Oxygen Saturation [94-100 %] 98 % (08/21/19 1:49 PM) Pulse Rate [55-90 bpm] 70 bpm (08/21/19 1:49 PM) Body Mass Index [18.5-24.99] 26.18 *H* (08/21/19 1:49 PM) Blood Pressure [90-138/55-84 mm Hg] 124/ 84mm Hg (08/21/19 1:49 PM) Respiratory Rate [16-30 br/min] 12 br/mi n *L* (08/21/19 1:49 PM) Mode of Delivery (Oxygen) Room air (08/21/19 1:49 PM) Blood pressure sites Arm, left (08/21/19 1:49 PM) Weight Obtained Via Standing scale (08/21/19 1:49 PM) Social History Social History Type Response Smoking Status Never smoker; Tobacc o user in household: No entered on: 07/05/14 Sex
--- OUTSIDE RECORDS SUMMARY | 2024-01-05 22:58 | XMS_ITS | Continuity of Care Document ---
Author Organization [facility] Yon lt Address [address] [place] [address]- Care Team Providers Care Office Machine Servicer Apprentice Name Role Phone Jaci GOLD, Garrison Swan Primary Care Physician [phone] [facility]counter [facility] Date(s): 01/22/22 - 02/21/22 [facility] Adult [address] [place] [address]- Allergies, Adverse Reactions, Alerts Substance Reaction Severity [...] 23-valent vaccine 6 07/29/21 Given SARS-CoV-2 mRNA (aiyuiqn-pmuz-zllat) vax 06/21/21 Recorded SARS-CoV-2 (COVID-19) mRNA BNT-162b2 [...] 03/08/00 Given 1Result Comment: [facility]# [id number] 2Result Comment: [12/09/2017] [id number] 3Result Comment: [04/15/2015 Uncharted] Pt had influenza vaccine 12/12/15- 4Admin Note: PT had the flu shot done at [facility] Flu clinic 5Admin Note: GIVEN IN CL[facility]IC [facility] 6Result Comment: [facility]# [id number] 7Admin Note: [employer] [facility] 8Admin Note: [employer] [facility] 9Admin Note: GIVEN AT OUTSIDE CLINIC 10Admin Note: per pt rcvd elsewhere Medications amLODIPine 5 mg oral tablet See Instructions, TAKE 1 TABLET BY MOUTH EVERY DAY, # 30 tablet, 5 Refills, Maintenance, 01/01/22 15:18:00 EDT, [facility] STORE 41064, 158, cm, 11/27/21 8:19:00 EDT, Height, 63, [...] 02/02/22 16:34:00 EST, [id number], Partial fill upon patient request if the prescription is for a schedule II... Start Date: 02/02/22 Status: Ordered clopidogrel 75 mg oral tablet 1, tablet, By Mouth, Daily, # 30 tablet, Refills 0, Maintenance, 11/06/21 16:29:00 EDT, Route to Pharmacy Electronically, [facility] STORE 47716, 158, cm, 10/02/21 9:27:00 EDT, Height, 63, kg, 07/28/21 1:38:00 EDT, Dry Weight Start Date: 11/06/21 Status: Ordered donepezil 5 mg oral tablet See Instructions, TAKE 1 TABLET BY MOUTH AT BEDTIME, # 30 tablet, Refills 5, Tot. Refills 5, 01/23/22 15:56:00 EST, Instructions Replace Required Details, [id number], 158, cm, 01/21/22 13:27:00 EST, Height, 63... Start Date: 01/23/22 Status: Ordered Lasix 40 mg oral tablet 40 mg, 1, tablet, By Mouth, Daily, # 30 tablet, Refills 11, Tot. Refills 11, Maintenance, 03/12/21 16:08:00 EST, [facility], [id number], Partial fill upon patient request if the prescription is for a schedule II opioid dr... Start Date: 03/12/21 Stop Date: 03/07/22 Status: Ordered lisinopril 10 mg oral tablet 10 mg, 1, tablet, By Mouth, 2 times a day, # 180 tablet, Refills 3, Tot. Refills 3, Maintenance, 03/07/22 16:09:00 EST, [facility], [id number], Partial fill upon patientrequest if the prescription is for a schedule II op... Start Date: 03/07/22 Status: Ordered magnesium oxide 400 mg oral tablet 1 tablet = 400 mg, By Mouth, Daily, for 30 days, # 30 tablet, 11 Refills, Acute 03/07/22 16:11:00 EST, 03/12/21 16:11:00 EST, Tablet, [facility]/pharmacy #[id number], Partial [...] Refills, Maintenance, 01/23/22 15:28:00 EST, ER Capsule, [facility]/pharmacy #[id number], [...] 4colo 2004 nl, rpt 2013 5MI 2019 08858; no repeat due to age 7restarted HCTZ; [...] Care Nurse Name: Annia Iniguez NP Position: [facility] Associate Professional Member Role: Primary Care Nurse Address: Address: [address] [place] [address]- [place] Name: Garrison Beatty MD Position: [facility] Primary Care Physician Member Role: PCP Address: Address: [address] [place] [address]- [place] Name: David Knapp MD Position: [facility] Renal MD Member Role: Lifetime Consulting Physician Address: Address: [address] [facility] [place] [address]- [place] Name: Zabrina Reyes RN Position: [facility] RN Member Role: Primary Care Nurse Name: Torito COONEY, Melissa Position: [facility] RN Member Role: Primary Care Nurse Care Team Related Persons Name: LIVIA MAXWELL Address: [address] [address] Name: DINA MAXWELL Address: [address] [address]
--- OUTSIDE RECORDS SUMMARY | 2024-01-05 22:59 | XMS_ITS | Continuity of Care Document ---
Author Organization [facility] Address [address] [place] [address]- Care Team Providers Care Machinist Supervisor Name Role Phone Garrison Beatty MD Primary Care Physician [place] [facility] [place](s): 12/25/20 - 01/24/21 [facility] [address] [place] [address]- [place] Allergies, Adverse Reactions, Alerts Substance Reaction [...] Vaccine (oldterm) 03/08/00 Given 1Result Comment: [12/09/2017] [id number] 2Result Comment: [04/15/2015 Uncharted] Pt had influenza vaccine 12/12/15- 3Admin Note: PT had the flu shot done at [facility] Flu clinic 4Admin Note: GIVEN IN CL[facility] 5Admin Note: [employer] [facility] 6Admin Note: [employer] [facility] 7Admin Note: GIVEN [...] Route to Pharmacy Electronically, [facility]/pharmacy #[id number], Partial fill upon patient request if the prescription is for a schedule II... Start Date: 08/07/20 Stop Date: 08/02/21 Status: Ordered clopidogrel 75 mg oral tablet 1, tablet, By Mouth, Daily, # 30 tablet, Refills 5, Tot. Refills 0, Maintenance, 10/04/20 11:01:00 EDT, Route to Pharmacy Electronically, [facility] STORE 09880, 160, cm, 08/30/20 13:24:00 EDT, Height, 56.5, [...] Maintenance, 10/25/2111:27:00 EDT, [id number] [...] 4colo 2004 nl, rpt 2013 5MI 2019 37808; no repeat due to age 7restarted HCTZ; will monitor 8holding hctz ;recheck 9Antibody positive 10thought to be medication related by neurology Social History Social History Type Response Smoking Status Never (less than 100 in lifetime) entered on: 12/02/20 Sex
--- OUTSIDE RECORDS SUMMARY | 2024-01-05 22:59 | XMS_ITS | Continuity of Care Document ---
Author Organization [facility] Address [address] [place] [address]- Care Team Providers Care Clinical Sales Consultant Name Role Phone Garrison Beatty MD Primary Care Physician [phone] Encounter [facility] Date(s): 07/16/22 - 08/15/22 [facility] [address] [place] [address]- Attending Physician: Renetta Strickland Admitting Physician: Renetta Strickland Referring Physician: Renetta Strickland Allergies, Adverse Reactions, Alerts Substance Reaction Severity Status cephalexin Active nitrofurantoin Active sulfADIAZINE Ciprofloxacin Active predniSONE SEVERE H/A Active valsartan 1 Active statins MYALGIAS Active 1dizziness Immunizations Given and Recorded Vaccine Date Status Refusal Reason [id number] 12y+ bivalent booster vax 12/13/21 Recorded influenza [...] 23-valent vaccine 6 07/29/21 Given SARS-CoV-2 mRNA (cnhuqxo-uhee-gvoei) vax 06/21/21 Recorded SARS-CoV-2 (COVID-19) mRNA BNT-162b2 [...] Toxoid Vaccine (oldterm) 03/08/00 Given 1Result Comment: [facility]# [id number] 2Result Comment: [12/09/2017] [id number] 3Result Comment: [04/15/2015 Uncharted] Pt had influenza vaccine 12/12/15- 4Admin Note: PT had the flu shot done at [facility] Flu clinic 5Admin Note: GIVEN IN CL[facility]IC [facility] 6Result Comment: [facility]# [id number] 7Admin Note: [employer] [facility] 8Admin Note: [employer] [facility] 9Admin Note: GIVEN AT OUTSIDE CLINIC 10Admin Note: per pt rcvd elsewhere Medications amLODIPine 5 mg oral tablet 1 tablet, By Mouth, Daily, # 30 tablet, 5 Refills, Maintenance, 04/17/22 19:41:00 EST, [facility] STORE 17568, 158, cm, 02/27/22 13:27:00 EST, Height, 63, kg, 07/28/21 1:38:00 EDT, Dry Weight Start Date: 04/17/22 Status: Ordered aspirin 81 mg oral delayed release tablet 81 mg, 1, tablet, By Mouth, Daily, # 30 tablet, Refills 5, Tot. Refills 5, Maintenance, 03/26/22 11:58:00 EST, Route to Pharmacy Electronically, [facility]/pharmacy #[id number], Partial fill upon patient request if the prescription is for a schedule II opioid drug... Start Date: 03/26/22 Status: Ordered carvedilol 6.25 mg oral tablet 6.25 mg, 1, tablet, By Mouth, 2 times a day, # 180 tablet, Refills 3, Tot. Refills 3, Maintenance, 02/02/22 16:34:00 EST, Route to Pharmacy Electronically, [facility]/pharmacy #[id number], Partial fill upon patient request if the prescription is for a schedule II... Start Date: 02/02/22 Status: Ordered clopidogrel 75 mg oral tablet 1, tablet, By Mouth, Daily, # 30 tablet, Refills 5, Tot. Refills 5, Maintenance, 03/26/22 11:55:00 EST, Route to Pharmacy Electronically, [facility]/pharmacy #[id number], 158, cm, 02/27/22 13:27:00 EST, Height, 63, kg, 07/28/21 1:38:00 EDT, Dry Weight Start Date: 03/26/22 Status: Ordered Daily Brielle oral tablet 1 tablet, By Mouth, Daily, # 30 tablet, 11 Refills, Maintenance, 03/18/22 11:57:00 EST, [facility], 30, TAKE 1 TABLET BY MOUTH EVERY DAY, 158, cm, 02/27/22 13:27:00 EST, Height, 63, kg, :38:00 EDT, Dry Weight Start Date: 03/18/22 Status: Ordered donepezil 5 mg oral tablet 1, tablet, By Mouth, Daily at bedtime, # 30 tablet, Refills 2, Maintenance, 05/25/22 16:50:00 EDT, Route to Pharmacy Electronically, [facility] 286[facility], 158, cm, 02/27/22 13:27:00 EST, Height, 63, kg, 07/28/21 1:38:00 EDT, Dry Weight Start Date: 05/25/22 Status: Ordered High Potency Vitamin D3 25 mcg (1000 intl units) oral capsule 1 capsule = 25 mcg, By Mouth, Daily, # 30 capsule, 5 Refills, Maintenance, 03/26/22 11:54:00 EST, [facility]/pharmacy #[id number], Partial fill upon patient request if the prescription is for a schedule II opioiddrug., 158, cm, 02/27/22 13:27:00 EST, Height, 63,... Start Date: 03/26/22 Status: Ordered Lasix 40 mg oral tablet 40 mg, 1, tablet, By Mouth, Daily, # 30 tablet, Refills 5, Tot. Refills 5, Maintenance, 03/26/22 11:53:00 EST, Route to Pharmacy Electronically, [facility]/pharmacy #[id number], Partial fill upon patient request if the prescription is for a schedule II opioid drug... Start Date: 03/26/22 Stop Date: 09/22/22 Status: Ordered lisinopril 10 mg oral tablet 10 mg, 1, tablet, By Mouth, 2 times a day, # 180 tablet, Refills 3, Tot. Refills 3, Maintenance, 03/07/22 16:09:00 EST, Route to Pharmacy Electronically, [facility]/pharmacy #[id number], Partial fill upon patientrequest if [...] Refills, Maintenance, 01/23/22 15:28:00 EST, ER Capsule, [facility]/pharmacy #7111, Partial fill upon patient request [...] 4colo 2004 nl, rpt 2013 5MI 2019 [address]; no repeat due to age 7restarted HCTZ; will monitor 8holding hctz ;recheck 9Per discharge note 03/05/21: Long-standing schizoaffective disorder, bipolar type. 10Antibody positive 11thought to be medication related by neurology Social History Social History Type Response Smoking Status Never (less than 100 in lifetime) entered on: 12/02/20 Sex Patient Care team information Care Team Personnel Name: Carley Vazquez RN Position: [facility] RN Member Role: Primary Care Nurse Name: Annia Iniguez NP Position: [facility] Associate Professional Member Role: Primary Care Nurse Address: Address: [address] [place] [phone]- Name: Garrison Beatty MD Position: [facility] Physician - Primary Care Member Role: PCP Address: Address: [address] [place] [address]- Name: David Knapp MD Position: [facility] Renal MD Member Role: Lifetime Consulting Physician Address: Address: [address] [facility] [address] [facility] [place] [address]- Name: Zabrina Reyes RN Position: [facility] RN Member Role: Primary Care Nurse Name: Melissa Ugarte RN Position: [facility] RN Member Role: Primary Care Nurse Care Team Related Persons Name: LIVIA MAXWELL Address: [address] [place] [address] Name: DINA MAXWELL Address: [address] [place] [address]
--- OUTSIDE RECORDS SUMMARY | 2024-01-05 22:59 | XMS_ITS | Continuity of Care Document ---
Author Organization [facility] Yon lt Address [address] [place] [address]- Care Team Providers Care Principal Administrative Clerk Name Role Phone Jaci GOLD, Garrison Swan Primary Care Physician [facility] Date(s): 03/10/22 - 04/09/22 [facility] Adult [address] [place] [address]- Allergies, Adverse Reactions, Alerts Substance Reaction Severity [...] 23-valent vaccine 6 07/29/21 Given SARS-CoV-2 mRNA (ofumlqn-pixc-hnplx) vax 06/21/21 Recorded SARS-CoV-2 (COVID-19) mRNA BNT-162b2 [...] 03/08/00 Given 1Result Comment: [facility]# [id number] 2Result Comment: [12/09/2017] [id number] 3Result Comment: [04/15/2015 Uncharted] Pt had influenza vaccine 12/12/15- 4Admin Note: PT had the flu shot done at [facility] Flu clinic 5Admin Note: GIVEN IN [facility] 6Result Comment: [facility]# [id number] 7Admin Note: [employer] [facility] 8Admin Note: [employer] [facility] 9Admin Note: GIVEN AT OUTSIDE CLINIC 10Admin Note: per pt rcvd elsewhere Medications amLODIPine 5 mg oral tablet See Instructions, TAKE 1 TABLET BY MOUTH EVERY DAY, # 30 tablet, 5 Refills, Maintenance, 01/01/22 15:18:00 EDT, [facility] STORE 76145, 158, cm, 11/27/21 8:19:00 EDT, Height, 63, kg, 07/28/21 1:38:00 EDT, Dry Weight Start Date: 01/01/22 Status: Ordered aspirin 81 mg oral delayed release tablet 81 mg, 1, tablet, By Mouth, Daily, # 30 tablet, Refills 5, Tot. Refills 5, Maintenance, 03/26/22 11:58:00 EST, Route to Pharmacy Electronically, [facility]/pharmacy #1030, Partial fill upon patient request if the prescription is for a schedule II opioid drug... Start Date: 03/26/22 Status: Ordered carvedilol 6.25 mg oral tablet 6.25 mg, 1, tablet, By Mouth, 2 times a day, # 180 tablet, Refills 3, Tot. Refills 3, Maintenance, 02/02/22 16:34:00 EST, [id number], Partial fill upon patient request if the prescription is for a schedule II... Start Date: 02/02/22 Status: Ordered clopidogrel 75 mg oral tablet 1, tablet, By Mouth, Daily, # 30 tablet, Refills 5, Tot. Refills 5, Maintenance, 03/26/22 11:55:00 EST, [id number], 158, cm, 02/27/22 13:27:00 EST, Height, 63, kg, 07/28/21 1:38:00 EDT, Dry Weight Start Date: 03/26/22 Status: Ordered Daily Brielle oral tablet 1 tablet, By Mouth, Daily, # 30 tablet, 11 Refills, Maintenance, 03/18/22 11:57:00 EST, [facility] STORE 34550, 30, TAKE 1 TABLET BY MOUTH EVERY DAY, 158, cm, 02/27/22 13:27:00 EST, Height, 63, kg, :38:00 EDT, Dry Weight Start Date: 03/18/22 Status: Ordered donepezil 5 mg oral tablet See Instructions, TAKE 1 TABLET BY MOUTH AT BEDTIME, # 30 tablet, Refills 5, Tot. Refills 5, 01/23/22 15:56:00 EST, Instructions Replace Required Details, [facility], 158, cm, 01/21/22 13:27:00 EST, Height, 63... Start Date: 01/23/22 Status: Ordered High Potency Vitamin D3 25 mcg (1000 intl units) oral capsule 1 capsule = 25 mcg, By Mouth, Daily, # 30 capsule, 5 Refills, Maintenance, 03/26/22 11:54:00 EST, [id number], Partial fill upon patient request if the prescription is for a schedule II opioiddrug., 158, cm, 02/27/22 13:27:00 EST, Height, 63,... Start Date: 03/26/22 Status: Ordered Lasix 40 mg oral tablet 40 mg, 1, tablet, By Mouth, Daily, # 30 tablet, Refills 5, Tot. Refills 5, Maintenance, 03/26/22 11:53:00 EST, Route to Pharmacy Electronically, [facility]/pharmacy #[id number], Partial fill upon patient request if the prescription is for a schedule II opioid drug... Start Date: 03/26/22 Stop Date: 09/22/22 Status: Ordered lisinopril 10 mg oral tablet 10 mg, 1, tablet, By Mouth, 2 times a day, # 180 tablet, Refills 3, Tot. Refills 3, Maintenance, 03/07/22 16:09:00 EST, Route to Pharmacy Electronically, [facility]/pharmacy #[id number], Partial fill upon [...] Refills, Maintenance, 01/23/22 15:28:00 EST, ER Capsule, [facility]/pharmacy #[id number], Partial fill upon [...] Member Role: Primary Care Nurse Address: Address: [address] [place] [address]- Name: Garrison Beatty MD Position: [facility] Primary Care Physician Member Role: PCP Address: Address: [address] [place] [address]- [place] Name: David Knapp MD Position: [facility] Renal MD Member Role: Lifetime Consulting Physician Address: Address: [address] [facility] [address] [facility] [place] [address]- Name: Zabrina Reyes RN Position: S RN Member Role: Primary Care Nurse Name: Melissa Ugarte RN Position: [facility] RN Member Role: Primary Care Nurse Care Team Related Persons Name: LIVIA MAXWELL Address: home [address] [place] [address] Name: DINA MAXWELL Address: home [address] [place] [address]
--- OUTSIDE RECORDS SUMMARY | 2024-01-05 22:59 | XMS_ITS | Continuity of Care Document ---
Author Organization [facility] Y[facility] lt Address [address] [place] [address]- Care Team Providers Care Driveway Attendant Name Role Phone Jaci GOLD, Garrison Swan Primary Care Physician [facility] Date[facility]s): 07/02[facility]20 - 08/01/20 [facility] Adult [address] [place] [address]- Allergies, Adverse Reactions, Alerts Substance Reaction Severity [...] Vaccine (oldterm) 03/08/00 Given 1Result Comment: [12/09/2017] [id number] 2Result Comment: [04/15/2015 Uncharted] Pt had influenza vaccine 12/12/15- 3Admin Note: PT had the flu shot done at [facility] Flu clinic 4Admin Note: GIVEN IN [facility] 5Admin Note: [employer] [facility] 6Admin Note: [email or web address] [facility] 7Admin Note: GIVEN AT OUTSIDE CLINIC 8Admin Note: per pt rcvd elsewhere Medications carvedilol 3.125 mg oral tablet See Instructions, TAKE 1 TABLET BY MOUTH TWICE A DAY, # 60 tablet, Refills 11, Tot. Refills 11, Maintenance, Instructions Replace Required Details, Route to Pharmacy Electronically, [facility] 93397, 160, cm, 07/05/20 7:47:00 EDT, Height, 62, kg, 02/26... Start Date: 07/05/20 Status: Ordered dicyclomine 10 mg oral capsule 1 capsule = 10 mg, By Mouth, 4 times a day, # 56 capsule, 0 Refills, Maintenance, 07/24/20 12:45:00EDT, Capsule, [facility]/pharmacy #[id number], Partial fill upon patient request if the prescription is for a schedule II opioid drug., 160, cm, 07/23/20 12:27:00 E... Start Date: 07/24/20 Stop Date: 08/07/20 Status: Ordered Lasix 40 mg oral tablet 40 mg, 1, tablet, By Mouth, Daily, # 30 tablet, Refills 11, Tot. Refills 11, Maintenance, 04/29/20 9:22:00 EST, Route to Pharmacy Electronically, [facility]/pharmacy #[id number], Partial fill upon patient [...] 03/20/20 10:44:00 EST, Route to Pharmacy Electronically, [facility]/pharmacy #[id number], Partial fill upon patient request if the prescription is for a schedule II opioid drug... Start Date: 03/20/20 Status: Ordered potassium chloride 10 mEq oral tablet, extended release 2 tablet = 20 mEq, By Mouth, Daily in AM, # 60 tablet, 5 Refills, Maintenance, 04/29/20 9:23:00 EST, ER Tablet, [facility]/pharmacy #7111, Partial fill upon patient request if the prescription is for a schedule II opioid drug., 160, cm, 04/29/20 8:53:00 EST,... Start Date: 04/29/20 Status: Ordered sacubitril-valsartan 24 mg-26 mg oral tablet 1 tablet, By Mouth, 2 times a day, Take one tablet by mouth twice daily, # 60 tablet, 6 Refills, Maintenance, 07/23/20 14:14:00 EDT, Tablet, [facility]/pharmacy #7111, replaces valsartan, 1 tablet [...] 4colo 2004 nl, rpt 2013 5MI 2019 55[address]; no repeat due to age 7restarted HCTZ; will monitor 8holding hctz ;recheck 9Antibody positive 10thought to be medication related by neurology Social History Social History Type Response Smoking Status Never smoker; Tobacc o user in household: No entered on: 07/05/14 Sex
--- OUTSIDE RECORDS SUMMARY | 2024-01-05 22:59 | XMS_ITS | Continuity of Care Document ---
Author Organization [facility] ter Address [address] [place] [address]- Care Team Providers Care Mri Tech Name Role Phone Jaci GOLD, Garrison Swan Primary Care Physician [phone] Encounter [facility](s[place] 01/20/21 - 01/21/[address] [address]- Discharge Disposition: A-D/C Home Attending Physician: Leanne Boland MD Admitting Physician: Dorcas GOLD, Alka Referring Physician: Not on Staff, Referring MD [...] Vaccine (oldterm) 03/08/00 Given 1Result Comment: [12/09/2017] [id number] 2Result Comment: [04/15/2015 Uncharted] Pt had influenza vaccine 12/12/15- 3Admin Note: PT had the flu shot done at [facility] Flu clinic 4Admin Note: GIVEN IN CL[facility]IC [facility] 5Admin Note: [employer] [facility] 6Admin Note: [employer] 7Admin Note: GIVEN AT OUTSIDE CLINIC 8Admin [...] Maintenance,08/07/20 13:57:00 EDT, Route to Pharmacy Electronically, [facility]/pharmacy #[id number], Partial fill upon patient request if the prescription is for a schedule II... Start Date: 08/07/20 Stop Date: 08/02/21 Status: Ordered carvedilol 6.25 mg oral tablet 6.25 mg, Tablet, By Mouth, 01/21/21 9:00:00 EST Start Date: 01/21/21 Stop Date: 01/21/21 Status: Completed clopidogrel 75 mg oral tablet 1, tablet, By Mouth, Daily, # 30 tablet, Refills 5, Tot. Refills 0, Maintenance, 10/04/20 11:01:00 EDT, Route to Pharmacy Electronically, [facility] STORE [id number], 160, cm, 08/30/20 13:24:00 EDT, Height, 56.5, kg, 07/18/20 15:54:00 EDT, Dry Weight Start Date: 10/04/20 Status: Ordered Lasix 40 mg oral tablet 40 mg, 1, tablet, By Mouth, Daily, # 30 tablet, Refills 11, Tot. Refills 11, Maintenance, 04/29/20 9:22:00 EST, Route to Pharmacy Electronically, [facility]/pharmacy #[id number], Partial fill upon patient requestif the prescription is for a schedule II opioid symone... Start Date: 04/29/20 Stop Date: 04/24/21 Status: Ordered lisinopril 2.5 mg oral tablet 2.5 mg, 1, tablet, By Mouth, Daily, # 30 tablet, Refills 11, Tot. Refills 11, Maintenance, 10/25/2111:27:00 EDT, [id number] Partial fill upon patient request if the prescription is for a schedule II opioid d... Start Date: 10/24/20 Stop Date: 10/19/21 Status: Ordered lisinopril 5 mg oral tablet 2.5 mg, Tablet, By Mouth, 01/21/21 9:00:00 EST Start Date: 01/21/21 Stop Date: 01/21/21 Status: Completed magnesium gluconate 250 mg oral tablet 1 [...] 4colo 2004 nl, rpt 2013 5MI 2019 634[address]; no repeat due to age 7restarted HCTZ; will monitor 8holding hctz ;recheck 9Antibody positive 10thought to be medication related by neurology Results Radiology Reports * Exam Date Time Procedure Performing Provider Status 01/20/21 11:20 AM Chest 2 Views Frontal and Lat Kelly Naidu; Auth (Verified) Notes: (Chest 2 Views Frontal and Lat) Reason For Exam: Stroke;Other: RESULT: Chest 2 Views Frontal and Lat Chest 2 Views Frontal and Lat INDICATION/CLINICAL QUESTION: Side dizziness. Hand tingling. Prior cardiac surgery. TECHNIQUE: Frontal and lateral views of the chest. COMPARISON: 12/01/2020. FINDINGS: LINES AND TUBES: None. LUNGS AND PLEURA: RIGHT CHEST: The right lung is clear and there is no right effusion. LEFT CHEST: The left lung is clear and there is no left effusion. HEART, MEDIASTINUM AND DEANGELO: The heart is of normal size. The mediastinum and deangelo are normal. BONES AND SOFT TISSUES: No acute bony abnormality. IMPRESSION: 1. No active disease in chest. WSN: [id number] Ordering Physician: Rebekah De Leon Dictated By: Scotty Boyle MD Dictated Date/Time: 01/20/21 12:11 p Reviewed By: Scotty Boyle MD Signed By: Scotty Boyle MD Signed Date/Time: 01/20/21 12:11 pm Transcribed By: PENNY Transcribed Date/Time: 01/20/21 12:11 pm Vital Signs Most recent to oldest [Reference Range]: 1 2 3 Height 157 cm (01/21/21 5:50 AM) 157 cm (01/20/21 4:10 PM) 157 cm (01/20/21 4:03 PM) Weight 60 kg (01/20/21 4:03 PM) Oxygen Saturation [94-100 %] 100 % (01/21/21 11:41 AM) 100 % (01/21/21 7:39 AM) 98 % (01/21/21 5:50 AM) Pulse Rate [55-90 bpm] 73 bpm (01/21/21 11:41 AM) 69 bpm (01/21/21 9:34 AM) 69 bpm (01/21/21 7:39 AM) Body Mass Index [18.5-24.99] 24.34 (01/20/21 4:03 PM) Blood Pressure [90-138/55-84 mm Hg] 147/84mm Hg *H* (01/21/21 11:41 AM) 164/100mm Hg *H* (01/21/21 9:34 AM) 164/100mm Hg *H* (01/21/21 9:34 AM) Respiratory Rate [16-30 br/min] 18 br/min (01/21/21 11:41 AM) 16 br/min (01/21/21 11:22 AM) 18 br/min (01/21/21 7:39 AM) Temperature [96.8-100.4 DegF] 98.3 DegF (01/21/21 11:41 AM) 98.1 DegF (01/21/21 7:39 AM) 97.9 DegF (01/21/21 5:50 AM) Mode of Delivery (Oxygen) Room air (01/21/21 11:41 AM) Room air (01/21/21 7:39 AM) Room air (01/21/21 5:50 AM) Blood pressure sites Arm, left (01/21/21 11:41 AM) Arm, left (01/21/21 7:39 AM) Arm, left (01/21/21 5:50 AM) Temperature Route Oral (01/21/21 11:41 AM) Oral (01/21/21 7:39 AM) Oral (01/21/21 5:50 AM) Dry Weight 60 kg (01/20/21 4:03 PM) Social History Social History Type Response Smoking Status Never (less than 100 in lifetime) entered on: 12/02/20 Sex
--- OUTSIDE RECORDS SUMMARY | 2024-01-05 22:59 | XMS_ITS | Continuity of Care Document ---
Author Organization [facility] lt Address [address] [place] [address]- Care Team Providers Care Parking Technician Name Role Phone Jaci GOLD, Garrison Swan Primary Care Physician [facility]counter [facility] Date(s): 08/30/23 - 09/29/23 [facility] Adult [address] [place] [address]- Allergies, Adverse Reactions, Alerts Substance Reaction Severity Status cephalexin Active nitrofurantoin Active sulfADIAZINE Ciprofloxacin Active predniSONE SEVERE H/A Active valsartan 1 Active statins MYALGIAS Active 1dizziness Immunizations Given and Recorded Vaccine Date Status Refusal Reason RSV vaccine, preF A-preF B, recombinant 03/23/23 R ecorded SARS-CoV-2(COVID-19)mRNA-LNP vac([id number]) 11/26/22 Recorded influenza virus vaccine, inactivated 11/05/22 [...] virus vaccine, inactivated 3 12/30/05 Gi cyn [id number] 12y+ bivalent booster vax 08/06/22 Recorded [id number] 12y+ bivalent booster vax 12/13/21 Recorded pneumococcal 23-valent vaccine 4 07/29/21 Given SARS-CoV-2 mRNA (jxduyoy-hmhk-fwhvt) vax 4/16/22 Recorded SARS-CoV-2 (COVID-19) mRNA BNT-162b2 [...] Toxoid Vaccine (oldterm) 03/08/00 Given 1Result Comment: [facility]# [id number] 2Result Comment: [12/09/2017] [address]-49 3Admin Note: GIVEN IN CL[facility]IC [facility] 4Result Comment: [facility]# [id number] 5Admin Note: [employer] [facility] 6Admin Note: [employer] [facility] 7Admin Note: GIVEN AT OUTSIDE CLINIC 8Admin Note: per pt rcvd elsewhere Medications amLODIPine 5 mg oral tablet 1 tablet, By Mouth, Daily, # 30 tablet, 5 Refills, Maintenance, 08/30/23 14:03:00 EDT, [id number], 157.5, cm, 08/16/23 12:48:00 EDT, Height, 59.5, kg, 06/03/22 14:32:00 EDT, Dry Weight Start Date: 08/30/23 Status: Ordered Aspirin Low Dose 81 mg oral delayed release tablet 1 tablet, By Mouth, Daily, # 30 tablet, 5 Refills, Maintenance, 08/10/23 12:27:00 EDT, [facility], 157.5, cm, 06/22/23 15:03:00 EDT, Height, 59.5, kg, 06/03/22 14:32:00 EDT, Dry Weight Start Date: 08/10/23 Status: Ordered carvedilol 6.25 mg oral tablet 1, tablet, By Mouth, 2 times a day, # 180 tablet, Refills 1, Tot. Refills 1, Maintenance, 07/24/23 15:25:00 EDT, Route to Pharmacy Electronically, [facility]/pharmacy #[id number], 157.5, cm, 06/22/23 15:03:00 EDT, Height, 59.5, kg, 06/03/22 14:32:00 EDT, Dry Weight Start Date: 07/24/23 Status: Ordered Daily Brielle oral tablet 1 tablet, By Mouth, Daily, # 30 tablet, 11 Refills, Maintenance, 02/15/23 12:26:00 EST, [facility] STORE 79555, 30, TAKE 1 TABLET BY MOUTH EVERY DAY, 157.5, cm, 08/04/22 8:48:00 EDT, Height, 59.5, kg, 06/03/22 14:32:00 EDT, Dry Weight Start Date: 02/15/23 Status: Ordered furosemide 40 mg oral tablet 1, tablet, By Mouth, Daily, # 30 tablet, Refills 5, Maintenance, 09/06/23 9:51:00 EDT, Route to Pharmacy Electronically, [facility] 79286, 157.5, cm, 08/16/23 12:48:00 EDT, Height, 59.5, kg, 06/03/22 14:32:00 EDT, Dry Weight Start Date: 09/06/23 Status: Ordered lisinopril 10 mg oral tablet 1, tablet, By Mouth, 2 times a day, # 180 tablet, Refills 3, Maintenance, 01/25/23 11:53:00 EST, Route to Pharmacy Electronically, [facility] 45750, 157.5, cm, 08/04/22 8:48:00 EDT, Height, 59.5, [...] Refills, Maintenance, 02/11/23 7:48:00 EST, [facility], 157.5, cm, 08/04/22 8:48:00 EDT, Height, 59.5, kg, 06/03/22 14:32:00 EDT, Dry Weight Start Date: 02/11/23 Status: Ordered Vitamin D3 1000 intl units oral capsule 1 capsule, By Mouth, Daily, # 30 capsule, 5 Refills, Maintenance, 08/30/23 14:04:00 EDT, [facility], 157.5, cm, 08/16/23 12:48:00 EDT, Height, 59.5, [...] 4colo 2004 nl, rpt 2013 5MI 2019 15842; no repeat due to age 7restarted HCTZ; will monitor 8holding hctz ;recheck 9Per discharge note 03/05/21: Long-standing schizoaffective disorder, bipolar type. 10Antibody positive 11thought to be medication related by neurology Social History Social History Type Response Smoking Status Never (less than 100 in lifetime) entered on: 12/02/20 Sex Patient Care team information Care Team Personnel Name: Zabrina Prince RN Position: [facility] ED RN W/OE and Tasks Member Role: Primary Care Nurse Name: Carley Vazquez RN Position: [facility] RN Member Role: Primary Care Nurse Name: Geetha MAYBERRY, Annia Gomes Position: [facility] Associate Professional Member Role: Primary Care Nurse Name: Jaci GOLD, Garrison Swan Position: [facility] Physician - Primary Care Member Role: PCP Address: Address: [address] [place] [address] - [place] Name: David Knapp MD Position: [facility] Renal MD Member Role: [employer] Consult[employer] Address: Address: [address] [place] [address] [address] [facility], [place] [address]- [place] Name: Torito COONEY, Melissa Position: [facility] RN Member Role: Primary Care Nurse Care Team Related Persons Name: LIVIA MAXWELL Address: home [address] [place] [address] Name: DINA MAXWELL Address: home [address] [place] [address]
--- OUTSIDE RECORDS SUMMARY | 2024-01-05 22:59 | XMS_ITS | Continuity of Care Document ---
Author Organization [facility] Address [address] [place] [address]- Care Team Providers Care Call Center Specialist Name Role Phone Garrison Beatty MD Primary Care Physician [facility]counter [facility] Date(s): 07/29/21 - 08/05/21 [facility] Adult [address] [place] [address]- Attending Physician: Garrison Beatty MD Allergies, Adverse Reactions, Alerts Substance Reaction Severity Status cephalexin Active nitrofurantoin Active sulfADIAZINE Ciprofloxacin Active statins MYALGIAS Active predniSONE SEVERE H/A Active valsartan 1 Active Macrobid Active 1dizziness Immunizations Given and Recorded Vaccine Date Status Refusal Reason pneumococcal 23-valent vaccine 1 07/29/21 Given SARS-CoV-2 mRNA (hmpeeom-wshs-cxhnq) vax 06/21/21 Recorded influenza virus vaccine, inactivated [...] 1Result Comment: [facility]# [id number] 2Result Comment: [12/09/2017] [id number] 3Result Comment: [04/15/2015 Uncharted] Pt had influenza vaccine 12/12/15- 4Admin Note: PT had the flu shot done at [facility] Flu clinic 5Admin Note: GIVEN IN CLINIC [facility] 6Admin Note: [facility] 7Admin Note: [employer] [facility] 8Admin Note: GIVEN AT OUTSIDE CLINIC 9Admin Note: per pt rcvd elsewhere Medications amLODIPine 5 mg oral tablet 5 mg, 1, tablet, By Mouth, Daily, # 30 tablet, Refills 11, Tot. Refills 11, Maintenance, 03/12/21 16:13:00 EST, Route to Pharmacy Electronically, [facility]/pharmacy #[id number], Partial fill upon patient requestif the prescription is for a schedule II opioid symone... Start Date: 03/12/21 Status: Ordered Aricept 5 mg oral tablet 5 mg, 1, tablet, By Mouth, Daily at bedtime, # 30 tablet, Refills 11, Tot. Refills 11, Maintenance,03/12/21 16:10:00 EST, Route to Pharmacy Electronically, [facility]/pharmacy #[id number], Partial fill upon patient request if the prescription is for a schedule II... Start Date: 03/12/21 Status: Ordered aspirin 81 mg oral capsule 1 capsule = 81 mg, By Mouth, Daily, 0 Refills, Maintenance, 10/01/21 14:03:00 EDT, Partial fill upon patient request if the prescription is for a schedule II opioid drug. Start Date: 12/06/20 Status: Ordered carvedilol 6.25 mg oral tablet 6.25 mg, 1, tablet, By Mouth, 2 times a day, DOSAGE DECREASE, # 60 tablet, Refills 1, Tot. Refills 1, Maintenance, 06/26/21 10:43:00 EDT, [id number] Partial[facility] upon patient request if the prescription is fo... Start Date: 06/26/21 Status: Ordered clopidogrel 75 mg oral tablet 1, tablet, By Mouth, Daily, # 30 tablet, Refills 11, Tot. Refills 11, Maintenance, 03/12/21 16:09:00 EST, Route to Pharmacy Electronically, [facility]/pharmacy #[id number], 157, cm, 03/12/21 13:26:00 EST, Height,60, kg, 01/20/21 16:03:00 EST, Dry Weight Start Date: 03/12/21 Status: Ordered Lasix 40 mg oral tablet 40 mg, 1, tablet, By Mouth, Daily, # 30 tablet, Refills 11, Tot. Refills 11, Maintenance, 03/12/21 16:08:00 EST, [id number], Partial fill upon patient request if the prescription is for a schedule II opioid dr... Start Date: 03/12/21 Stop Date: 03/07/22 Status: Ordered lisinopril 10 mg oral tablet 10 mg, 1, tablet, By Mouth, 2 times a day, # 60 tablet, Refills 11, Tot. Refills 11, Maintenance, 03/12/21 16:09:00 EST, Route to Pharmacy Electronically, [facility]/pharmacy #[id number], Partial fill upon patient request if the prescription is for a schedule II o... Start Date: 03/12/21 Stop Date: 03/07/22 Status: Ordered magnesium oxide 400 mg oral tablet 1 tablet = 400 mg, By Mouth, Daily, for 30 days, # 30 tablet, 11 Refills, Acute 03/07/22 16:11:00 EST, 03/12/21 16:11:00 EST, Tablet, [facility]/pharmacy #[id number], Partial fill upon [...] Refills, Maintenance, 03/12/21 16:07:00 EST, ER Capsule, [facility]/pharmacy #[id number], Partial fill upon [...] 4colo 2003 nl, rpt 2013 5MI 2019 76666; no repeat due to age 7restarted HCTZ; will monitor 8holding hctz ;recheck 9Antibody positive 10thought to be medication related by neurology Vital Signs Most recent to oldest [Reference Range]: 1 Height 158 cm (07/29/21 9:07 AM) Weight 63.9 kg (07/29/21 9:07 AM) Pulse Rate [55-90 bpm] 66 bpm (07/29/21 9:07 AM) Body Mass Index [18.5-24.99] 25.6 *H* (07/29/21 9:07 AM) Blood Pressure [90-138/55-84 mm Hg] 100/ 60mm Hg (07/29/21 9:07 AM) Respiratory Rate [16-30 br/min] 12 br/mi n *L* (07/29/21 9:07 AM) Mode of Delivery (Oxygen) Room air (07/29/21 9:07 AM) Blood pressure sites Arm, right (07/29/21 9:07 AM) Weight Obtained Via Standing scale (07/29/21 9:07 AM) Social History Social History Type Response Smoking Status Never (less than 100 in lifetime) entered on: 12/02/20 Sex
--- OUTSIDE RECORDS SUMMARY | 2024-01-05 22:59 | XMS_ITS | Continuity of Care Document ---
Author Organization [facility] Ontiveros Yon lt Address [address] [place] [address]- Care Team Providers Care Manager Route Name Role Phone Garrison Beatty MD Primary Care Physician [phone] Encounter [facility] Date(s): 02/23/20 - 03/01/20 [facility] Adult [address] [place] [address]- Encounter Diagnosis Hypercholesterolemia(Discharge Diagnosis) - 02/23/20 Benign Essential Hypertension(Discharge Diagnosis) - 02/23/20 Carotid artery stenosis(Discharge Diagnosis) - 02/23/20 Major depression(Discharge Diagnosis) - 02/23/20 H/O psychosis(Discharge Diagnosis) - 02/23/20 Attending Physician: Garrison Beatty MD Allergies, Adverse [...] Vaccine (oldterm) 03/08/00 Given 1Result Comment: [12/09/2017] [id number] 2Result Comment: [04/15/2015 Uncharted] Pt had influenza vaccine 12/12/15- 3Admin Note: PT had the flu shot done at [facility] Flu clinic 4Admin Note: GIVEN IN CL[facility]IC [facility] 5Admin Note: [facility] 6Admin Note: [facility] 7Admin Note: GIVEN AT OUTSIDE [...] 02/23/20 14:22:00 EST, Route to Pharmacy Electronically, [facility]/pharmacy #[id number], Partial fill upon patient request if the [...] colo 2008 4colo 2003 nl, rpt 2013 12583; no repeat due to age 6restarted HCTZ; will monitor 7holding hctz ;recheck 8Antibody positive 9thought to be medication related by neurology Diagnosis Diagnosis Type Effective Dates Health Status Clinical Service Informant Hypercholesterolemia Discharge Diagnosis 02/23/20 Benign Essential Hypertension Discharge Diagnosis 02/23/20 Carotid artery stenosis Discharge Diagnosis 02/23/20 Major depression Discharge Diagnosis 02/23/20 H/O psychosis Discharge Diagnosis 02/23/20 Vital Signs Most recent to oldest [Reference Range]: 1 2 Height 158 cm (02/23/20 2:12 PM) 158 cm (02/23/20 1:59 PM) Weight 64.4 kg (02/23/20 1:59 PM) Oxygen Saturation [94-100 %] 96 % (02/23/20 1:59 PM) Pulse Rate [55-90 bpm] 59 bpm (02/23/20 1:59 PM) Body Mass Index [18.5-24.99] 25.8 *H* (02/23/20 1:59 PM) Blood Pressure [90-138/55-84 mm Hg] 162/ 85mm Hg *H* (02/23/20 2:12 PM) 142/74mm Hg *H* (02/23/20 1:59 PM) Mode of Delivery (Oxygen) Room air (02/23/20 1:59 PM) Blood pressure sites Arm, left (02/23/20 2:12 PM) Arm, left (02/23/20 1:59 PM) Weight Obtained Via Standing scale (02/23/20 1:59 PM) Social History Social History Type Response Smoking Status Never smoker; Tobacc o user in household: No entered on: 07/05/14 Sex
--- OUTSIDE RECORDS SUMMARY | 2024-01-05 22:59 | XMS_ITS | Continuity of Care Document ---
Author Organization [facility] Address [address] [place] [address]- Care Team Providers Care Blood Splatter Analyst Name Role Phone Garrison Beatty MD Primary Care Physician Encounter [facility] Date(s): 01/08/22 - 03/07/22 [facility] [address] [place], [place] [address]- Attending Physician: Al Hernandez MD Admitting Physician: Al Hernandez MD Referring Physician: Garrison Beatty MD Allergies, [...] 23-valent vaccine 6 07/29/21 Given SARS-CoV-2 mRNA (jsnpkio-pjaf-weqen) vax 06/21/21 Recorded SARS-CoV-2 (COVID-19) mRNA BNT-162b2 [...] Toxoid Vaccine (oldterm) 03/08/00 Given 1Result Comment: [facility]# [id number] 2Result Comment: [12/09/2017] [id number] 3Result Comment: [04/15/2015 Uncharted] Pt had influenza vaccine 12/12/15- 4Admin Note: PT had the flu shot done at [facility] Flu clinic 5Admin Note: GIVEN IN CLINIC [facility] 6Result Comment: [facility]# [id number] 7Admin Note: [facility] 8Admin Note: [employer] [facility] 9Admin Note: GIVEN AT OUTSIDE CLINIC 10Admin Note: per pt rcvd elsewhere Medications amLODIPine 5 mg oral tablet See Instructions, TAKE 1 TABLET BY MOUTH EVERY DAY, # 30 tablet, 5 Refills, Maintenance, 01/01/22 15:18:00 EDT, [facility] STORE 11127, 158, cm, 11/27/21 8:19:00 EDT, Height, 63, [...] 02/02/22 16:34:00 EST, [id number] Partial fill upon patient request if the prescription is for a schedule II... Start Date: 02/02/22 Status: Ordered clopidogrel 75 mg oral tablet 1, tablet, By Mouth, Daily, # 30 tablet, Refills 0, Maintenance, 11/06/21 16:29:00 EDT, Route to Pharmacy Electronically, [facility]ORE 44045, 158, cm, 10/02/21 9:27:00 EDT, Height, 63, kg, 07/28/21 1:38:00 EDT, Dry Weight Start Date: 11/06/21 Status: Ordered donepezil 5 mg oral tablet See Instructions, TAKE 1 TABLET BY MOUTH AT BEDTIME, # 30 tablet, Refills 5, Tot. Refills 5, 01/23/22 15:56:00 EST, Instructions Replace Required Details, [id number], 158, cm, 01/21/22 13:27:00 EST, Height, 63... Start Date: 01/23/22 Status: Ordered Lasix 40 mg oral tablet 40 mg, 1, tablet, By Mouth, Daily, # 30 tablet, Refills 11, Tot. Refills 11, Maintenance, 03/12/21 16:08:00 EST, [id number] Partial fill upon patient request if the prescription is for a schedule II opioid dr... Start Date: 03/12/21 Stop Date: 03/07/22 Status: Ordered lisinopril 10 mg oral tablet 10 mg, 1, tablet, By Mouth, 2 times a day, # 180 tablet, Refills 3, Tot. Refills 3, Maintenance, 03/07/22 16:09:00 EST, [id number], Partial fill upon patientrequest if the prescription is for a schedule II op... Start Date: 03/07/22 Status: Ordered Multivitamin 1 tablet, [...] Refills, Maintenance, 01/23/22 15:28:00 EST, ER Capsule, [facility]/pharmacy #[id number], Partial fill upon [...] 4colo 2004 nl, rpt 2013 5MI 2019 70391; no repeat due to age 7restarted HCTZ; will monitor 8holding hctz ;recheck 9Per discharge note 03/05/21: Long-standing schizoaffective disorder, bipolar type. 10Antibody positive 11thought to be medication related by neurology Social History Social History Type Response Smoking Status Never (less than 100 in lifetime) entered on: 12/02/20 Sex Patient Care team information Care Team Personnel Name: Carley Vazquez RN Position: [facility] RN Member Role: Primary Care Nurse Name: Geetha MAYBERRY, Annia Gomes Position: [facility] Associate Professional Member Role: Primary Care Nurse Address: Address: [address] [place] [address]- [place] Name: Garrison Baetty MD Position: [facility] Primary Care Physician Member Role: PCP Address: Address: [address] [place] [address]- [place] Name: David Knapp MD Position: [facility] Renal MD Member Role: Lifetime Consulting Physician Address: Address: [address] [place] [address] [address] [facility], [place] [address]- [place] Name: Zabrina Reyes RN Position: S RN Member Role: Primary Care Nurse Name: Melissa Ugarte RN Position: [facility] RN Member Role: Primary Care Nurse Care Team Related Persons Name: LIVIA MAXWELL Address: home [address] [place] [address] Name: DINA MAXWELL Address: home [address] [place] [address]
--- OUTSIDE RECORDS SUMMARY | 2024-01-05 22:59 | XMS_ITS | Continuity of Care Document ---
Author Organization [facility] Address [address] [place] [address]- Care Team Providers Care Airplane Rental Clerk Name Role Phone Garrison Beatty MD Primary Care Physician [phone] [facility]counter [facility] Date(s): 08/20/20 - 09/19/20 [facility] [address] [place] [address]- Allergies, Adverse Reactions, Alerts Substance Reaction Severity [...] Vaccine (oldterm) 03/08/00 Given 1Result Comment: [12/09/2017] [id number] 2Result Comment: [04/15/2015 Uncharted] Pt had influenza vaccine 12/12/15- 3Admin Note: PT had the flu shot done at [facility] 4Admin Note: GIVEN IN [facility]IC [facility] 5Admin Note: [employer] [facility] 6Admin Note: [employer] [facility] 7Admin Note: GIVEN AT OUTSIDE CLINIC 8Admin Note: per pt rcvd elsewhere Medications carvedilol 6.25 mg oral tablet 6.25 mg, 1, tablet, By Mouth, 2 times a day, # 60 tablet, Refills 11, Tot. Refills 11, Maintenance,08/07/20 13:57:00 EDT, Route to Pharmacy Electronically, [facility]/pharmacy #[id number], Partial fill upon patient request [...] 09/03/20 7:05:00 EDT, Route to Pharmacy Electronically, [facility]/pharmacy #[id number], 160, cm, 06... Start Date: 09/03/20 Stop Date: 09/10/20 Status: Ordered Lasix 40 mg oral tablet 40 mg, 1, tablet, By Mouth, Daily, # 30 tablet, Refills 11, Tot. Refills 11, Maintenance, 04/29/20 9:22:00 EST, Route to Pharmacy Electronically, [facility]/pharmacy #[id number], Partial fill upon patient requestif the prescription is for a schedule II opioid symone... Start Date: 04/29/20 Stop Date: 04/24/21 Status: Ordered losartan 25 mg oral tablet 0.5, By Mouth, Daily, # 15 tablet, Refills 3, Tot. Refills 3, Maintenance, 08/29/20 13:46:00 EDT, Route to Pharmacy Electronically, [facility]/pharmacy #[id number], Partial fill upon patient request [...] 03/20/20 10:44:00 EST, Route to Pharmacy Electronically, [facility]/pharmacy #7111, Partial fill upon patient request [...] 4colo 2004 nl, rpt 2013 5MI 2019 67980; no repeat due to age 7restarted HCTZ; will monitor 8holding hctz ;recheck 9Antibody positive 10thought to be medication related by neurology Social History Social History Type Response Smoking Status Never smoker; Tobacc o user in household: No entered on: 07/05/14 Sex
--- OUTSIDE RECORDS SUMMARY | 2024-01-05 22:59 | XMS_ITS | Continuity of Care Document ---
Author Organization [facility] Address [address] [place] [address]- Care Team Providers Care Bin Operator Name Role Phone Jaci GOLD, Garrison Swan Primary Care Physician [facility] Date[facility]s): 04/16/20 - 05/16/20 [facility] Adult [address] [place] [address]- Allergies, Adverse Reactions, Alerts Substance Reaction Severity [...] Vaccine (oldterm) 03/08/00 Given 1Result Comment: [12/09/2017] [id number] 2Result Comment: [04/15/2015 Uncharted] Pt had influenza vaccine 12/12/15- 3Admin Note: PT had the flu shot done at [facility] 4Admin Note: GIVEN IN CL[facility]IC [facility] 5Admin Note: [employer] [facility] 6Admin Note: [employer] [facility] [...] EST, Route to Pharmacy Electronically, [facility], 160, cm, 04/25/20 9:48:00 EST, Height, 62, [...] 04/29/20 9:22:00 EST, Route to Pharmacy Electronically, [facility]/pharmacy #7134, Partial fill upon patient requestif the prescription is for a schedule II opioid symone... Start Date: 04/29/20 Stop Date: 04/24/21 Status: Ordered lisinopril 5 mg oral tablet 5 mg, 1, tablet, By Mouth, Daily, # 30 tablet, Refills 3, Tot. Refills 3, Maintenance, 04/25/20 10:36:00 EST, Route to Pharmacy Electronically, [facility]/pharmacy #[id number], Partial fill upon patient [...] 03/20/20 10:44:00 EST, Route to Pharmacy Electronically, [facility]/pharmacy #[id number], Partial fill upon patient request if the prescription is for a schedule II opioid drug... Start Date: 03/20/20 Status: Ordered potassium chloride 10 mEq oral tablet, extended release 2 tablet = 20 mEq, By Mouth, Daily in AM, # 60 tablet, 5 Refills, Maintenance, 04/29/20 9:23:00 EST, ER Tablet, [facility]/pharmacy #7111, Partial fill upon patient [...] 4colo 2003 nl, rpt 2013 5MI 2019 22970; no repeat due to age 7restarted HCTZ; will monitor 8holding hctz ;recheck 9Antibody positive 10thought to be medication related by neurology Social History Social History Type Response Smoking Status Never smoker; Tobacc o user in household: No entered on: 07/05/14 Sex
--- OUTSIDE RECORDS SUMMARY | 2024-01-05 22:59 | XMS_ITS | Continuity of Care Document ---
Author Organization [facility] Address [address] [place] [address]- Care Team Providers Care Signal Operator Name Role Phone Jaci GOLD, Garrison Swan Primary Care Physician [facility] Date(s): 09/02/20 - 10/02/20 [facility] Adult [address] [place] [address]- Allergies, Adverse Reactions, Alerts Substance Reaction Severity [...] Vaccine (oldterm) 03/08/00 Given 1Result Comment: [12/09/2017] [id number] 2Result Comment: [04/15/2015 Uncharted] Pt had influenza vaccine 12/12/15- 3Admin Note: PT had the flu shot done at [facility] Flu clinic 4Admin Note: GIVEN IN CL[facility]IC [facility] 5Admin Note: [employer] [facility] 6Admin Note: [employer] [facility] 7Admin Note: GIVEN AT OUTSIDE CLINIC 8Admin Note: per pt rcvd elsewhere Medications carvedilol 6.25 mg oral tablet 6.25 mg, 1, tablet, By Mouth, 2 times a day, # 60 tablet, Refills 11, Tot. Refills 11, Maintenance,08/07/20 13:57:00 EDT, Route to Pharmacy Electronically, [facility]/pharmacy #[id number], Partial fill upon patient request if [...] 09/03/20 7:05:00 EDT, Route to Pharmacy Electronically, [facility]/pharmacy #7111, 160, cm, 06... Start Date: 09/03/20 Stop Date: 09/10/20 Status: Ordered Lasix 40 mg oral tablet 40 mg, 1, tablet, By Mouth, Daily, # 30 tablet, Refills 11, Tot. Refills 11, Maintenance, 04/29/20 9:22:00 EST, Route to Pharmacy Electronically, [facility]/pharmacy #[id number], Partial fill upon patient requestif the prescription is for a schedule II opioid symone... Start Date: 04/29/20 Stop Date: 04/24/21 Status: Ordered losartan 25 mg oral tablet 0.5, By Mouth, Daily, # 15 tablet, Refills 3, Tot. Refills 3, Maintenance, 08/29/20 13:46:00 EDT, Route to Pharmacy Electronically, [facility]/pharmacy #[id number], Partial fill upon patient request if [...] 03/20/20 10:44:00 EST, Route to Pharmacy Electronically, [facility]/pharmacy #[id number], Partial fill upon patient request if [...] 4colo 2004 nl, rpt 2013 5MI 2019 54668; no repeat due to age 7restarted HCTZ; will monitor 8holding hctz ;recheck 9Antibody positive 10thought to be medication related by neurology Social History Social History Type Response Smoking Status Never smoker; Tobacc o user in household: No entered on: 07/05/14 Sex
--- OUTSIDE RECORDS SUMMARY | 2024-01-05 22:59 | XMS_ITS | Continuity of Care Document ---
Author Organization [facility] Address [address] [place] [address]- Care Team Providers Care Bioengineer Name Role Phone Jaci GOLD, Garrison Swan Primary Care Physician [facility] Date[facility]s): 07/04/20 - 08/03/20 [facility] Adult [address] [place] [address]- Allergies, Adverse Reactions, Alerts Substance Reaction Severity [...] Vaccine (oldterm) 03/08/00 Given 1Result Comment: [12/09/2017] [id number] 2Result Comment: [04/15/2015 Uncharted] Pt had influenza vaccine 12/12/15- 3Admin Note: PT had the flu shot done at [facility] 4Admin Note: GIVEN IN [facility]IC [facility] 5Admin Note: [employer] [facility] 6Admin Note: [employer] [facility] 7Admin Note: GIVEN AT OUTSIDE CLINIC 8Admin Note: per pt rcvd elsewhere Medications carvedilol 3.125 mg oral tablet See Instructions, TAKE 1 TABLET BY MOUTH TWICE A DAY, # 60 tablet, Refills 11, Tot. Refills 11, Maintenance, Instructions Replace Required Details, Route to Pharmacy Electronically, [email or web address], 160, cm, 07/05/20 7:47:00 EDT, Height, 62, kg, 02/26... Start Date: 07/05/20 Status: Ordered dicyclomine 10 mg oral capsule 1 capsule = 10 mg, By Mouth, 4 times a day, # 56 capsule, 0 Refills, Maintenance, 07/24/20 12:45:00EDT, Capsule, [facility]/pharmacy #[id number], Partial fill upon patient request if the prescription is for a schedule II opioid drug., 160, cm, 07/23/20 12:27:00 E... Start Date: 07/24/20 Stop Date: 08/07/20 Status: Ordered Lasix 40 mg oral tablet 40 mg, 1, tablet, By Mouth, Daily, # 30 tablet, Refills 11, Tot. Refills 11, Maintenance, 04/29/20 9:22:00 EST, Route to Pharmacy Electronically, [facility]/pharmacy #7111, Partial fill upon patient [...] 03/20/20 10:44:00 EST, Route to Pharmacy Electronically, [facility]/pharmacy #7111, Partial fill upon patient request if the prescription is for a schedule II opioid drug... Start Date: 03/20/20 Status: Ordered potassium chloride 10 mEq oral tablet, extended release 2 tablet = 20 mEq, By Mouth, Daily in AM, # 60 tablet, 5 Refills, Maintenance, 04/29/20 9:23:00 EST, ER Tablet, [facility]/pharmacy #7111, Partial fill upon patient request if the prescription is for a schedule II opioid drug., 160, cm, 04/29/20 8:53:00 EST,... Start Date: 04/29/20 Status: Ordered sacubitril-valsartan 24 mg-26 mg oral tablet 1 tablet, By Mouth, 2 times a day, Take one tablet by mouth twice daily, # 60 tablet, 6 Refills, Maintenance, 07/23/20 14:14:00 EDT, Tablet, [facility]/pharmacy #7111, replaces valsartan, 1 tablet By [...] 4colo 2004 nl, rpt 2013 5MI 2019 33493; no repeat due to age 7restarted HCTZ; will monitor 8holding hctz ;recheck 9Antibody positive 10thought to be medication related by neurology Social History Social History Type Response Smoking Status Never smoker; Tobacc o user in household: No entered on: 07/05/14 Sex
--- OUTSIDE RECORDS SUMMARY | 2024-01-05 22:59 | XMS_ITS | Continuity of Care Document ---
Author Organization [facility] Address [address] [place] [address]- Care Team Providers Care Education Site Manager Name Role Phone Jaci GOLD, Garrison Swan Primary Care Physician [phone] [place] [facility] [place]s): 12/11/21 - 02/19/22 [facility] [address] [place], [place] [address] Attending Physician: Darryn Ledezma MD Admitting [...] 23-valent vaccine 6 07/29/21 Given SARS-CoV-2 mRNA ([id number]) vax 06/21/21 Recorded SARS-CoV-2 (COVID-19) mRNA BNT-162b2 [...] Toxoid Vaccine (oldterm) 03/08/00 Given 1Result Comment: [facility]# [id number] 2Result Comment: [12/09/2017] [id number] 3Result Comment: [04/15/2015 Uncharted] Pt had influenza vaccine 12/12/15- 4Admin Note: PT had the flu shot done at [facility] Flu clinic 5Admin Note: GIVEN IN [facility]IC [facility] 6Result Comment: [facility]# [id number] 7Admin Note: [employer] [facility] 8Admin Note: [employer] [facility] 9Admin Note: GIVEN AT OUTSIDE CLINIC 10Admin Note: per pt rcvd elsewhere Medications amLODIPine 5 mg oral tablet See Instructions, TAKE 1 TABLET BY MOUTH EVERY DAY, # 30 tablet, 5 Refills, Maintenance, 01/01/22 15:18:00 EDT, [facility], 158, cm, 11/27/21 8:19:00 EDT, Height, 63, [...] [facility] Partial fill upon patient request if the prescription is for a schedule II... Start Date: 02/02/22 Status: Ordered clopidogrel 75 mg oral tablet 1, tablet, By Mouth, Daily, # 30 tablet, Refills 0, Maintenance, 11/06/21 16:29:00 EDT, Route to Pharmacy Electronically, [facility], 158, cm, 10/02/21 9:27:00 EDT, Height, 63, kg, 07/28/21 1:38:00 EDT, Dry Weight Start Date: 11/06/21 Status: Ordered donepezil 5 mg oral tablet See Instructions, TAKE 1 TABLET BY MOUTH AT BEDTIME, # 30 tablet, Refills 5, Tot. Refills 5, 01/23/22 15:56:00 EST, Instructions Replace Required Details, [facility], 158, cm, 01/21/22 13:27:00 EST, Height, 63... Start Date: 01/23/22 Status: Ordered Lasix 40 mg oral tablet 40 mg, 1, tablet, By Mouth, Daily, # 30 tablet, Refills 11, Tot. Refills 11, Maintenance, 03/12/21 16:08:00 EST, [facility]ically[facility], Partial fill upon patient request if the prescription is for a schedule II opioid dr... Start Date: 03/12/21 Stop Date: 03/07/22 Status: Ordered lisinopril 10 mg oral tablet 10 mg, 1, tablet, By Mouth, 2 times a day, # 180 tablet, Refills 3, Tot. Refills 3, Maintenance, 03/07/22 16:09:00 EST, [facility]ically[facility], Partial fill upon patientrequest if the prescription is for a schedule II op... Start Date: 03/07/22 Status: Ordered magnesium oxide 400 mg oral tablet 1 tablet = 400 mg, By Mouth, Daily, for 30 days, # 30 tablet, 11 Refills, Acute 03/07/22 16:11:00 EST, 03/12/21 16:11:00 EST, Tablet, [facility]/pharmacy #[id number], Partial [...] Refills, Maintenance, 01/23/22 15:28:00 EST, ER Capsule, [facility]/pharmacy #7111, Partial fill [...] 4colo 2004 nl, rpt 2013 5MI 2019 46644; no repeat due to age 7restarted HCTZ; will monitor 8holding hctz ;recheck 9Per discharge note 03/05/21: Long-standing schizoaffective disorder, bipolar type. 10Antibody positive 11thought to be medication related by neurology Social History Social History Type Response Smoking Status Never (less than 100 in lifetime) entered on: 12/02/20 Sex Patient Care team information Care Team Personnel Name: Carley Vazquez RN Position: [facility] RN Member Role: Primary Care Nurse Name: Annia Iniguez NP Position: [facility] Associate Professional Member Role: Primary Care Nurse Address: Address: [address] [place] [address]- [place] Name: Garrison Beatty MD Position: [facility] Primary Care Physician Member Role: PCP Address: Address: [address] [place] [address]- [place] Name: David Knapp MD Position: [facility] Renal MD Member Role: Lifetime Consulting Physician Address: Address: [address] [facility] [address] [facility] [place] [address]- Name: Amy COONEY, Zabrina Position: [facility] RN Member Role: Primary Care Nurse Name: Melissa Ugarte RN Position: S RN Member Role: Primary Care Nurse Care Team Related Persons Name: LIVIA MAXWELL Address: [address] [address] Name: DINA MAXWELL Address: [place] [address]
--- OUTSIDE RECORDS SUMMARY | 2024-01-05 22:59 | XMS_ITS | Continuity of Care Document ---
Author Organization [facility] Address [address] [place] [address]- Care Team Providers Care Night Supervisor Name Role Phone Garrison Beatty MD Primary Care Physician Encounter [facility] Date(s): 02/03/22 - 03/05/[address] [address]- Allergies, Adverse Reactions, Alerts Substance Reaction Severity [...] 23-valent vaccine 6 07/29/21 Given SARS-CoV-2 mRNA (dytmljd-jhba-xjenp) vax 06/21/21 Recorded SARS-CoV-2 (COVID-19) mRNA BNT-162b2 [...] Vaccine (oldterm) 03/08/00 Given 1Result Comment: [facility]# [id number] 2Result Comment: [12/09/2017] [id number] 3Result Comment: [04/15/2015 Uncharted] Pt had influenza vaccine 12/12/15- 4Admin Note: PT had the flu shot done at [facility] 5Admin Note: GIVEN IN [facility] 6Result Comment: [facility]# [id number] 7Admin Note: [email or web address] [facility] 8Admin Note: [employer] [facility] 9Admin Note: GIVEN AT OUTSIDE CLINIC 10Admin Note: per pt rcvd elsewhere Medications amLODIPine 5 mg oral tablet See Instructions, TAKE 1 TABLET BY MOUTH EVERY DAY, # 30 tablet, 5 Refills, Maintenance, 01/01/22 15:18:00 EDT, [facility], 158, cm, 11/27/21 8:19:00 EDT, Height, 63, [...] 16:34:00 EST, [id number] Partial fill upon patient request if the prescription is for a schedule II... Start Date: 02/02/22 Status: Ordered clopidogrel 75 mg oral tablet 1, tablet, By Mouth, Daily, # 30 tablet, Refills 0, Maintenance, 11/06/21 16:29:00 EDT, Route to Pharmacy Electronically, [facility]027, 158, cm, 10/02/21 9:27:00 EDT, Height, 63, kg, 07/28/21 1:38:00 EDT, Dry Weight Start Date: 11/06/21 Status: Ordered donepezil 5 mg oral tablet See Instructions, TAKE 1 TABLET BY MOUTH AT BEDTIME, # 30 tablet, Refills 5, Tot. Refills 5, 01/23/22 15:56:00 EST, Instructions Replace Required Details, [facility], 158, cm, 01/21/22 13:27:00 EST, Height, [...] [facility] Partial fill upon patientrequest if the prescription is for a schedule II op... Start Date: 03/07/22 Status: Ordered magnesium oxide 400 mg oral tablet 1 tablet = 400 mg, By Mouth, Daily, for 30 days, # 30 tablet, 11 Refills, Acute 03/07/22 16:11:00 EST, 03/12/21 16:11:00 EST, Tablet, [facility]/pharmacy #7111, Partial fill upon patient [...] 01/23/22 15:28:00 EST, ER Capsule, [facility]/pharmacy #7111, Partial fill upon patient [...] 4colo 2004 nl, rpt 2013 5MI 2019 50365; no repeat due to age 7restarted HCTZ; [...] Member Role: Primary Care Nurse Address: Address: [address] [place] [address]- [place] Name: Garrison Beatty MD Position: [facility] Primary Care Physician Member Role: PCP Address: Address: [address] [place] [address]- [place] Name: David Knapp MD Position: [facility] Renal MD Member Role: Lifetime Consulting Physician Address: Address: [address] [facility] [place] [address]- [place] Name: Zabrina Reyes RN Position: [facility] RN Member Role: Primary Care Nurse Name: Melissa Ugarte RN Position: [facility] RN Member Role: Primary Care Nurse Care Team Related Persons Name: LIVIA MAXWELL Address: [address] [address] Name: DINA MAXWELL Address: [address] [address]
--- OUTSIDE RECORDS SUMMARY | 2024-01-05 22:59 | XMS_ITS | Continuity of Care Document ---
Author Organization [facility] Address [address] [place] [address]- Care Team Providers Care Reliability Technicians Name Role Phone Jaci GOLD, Garrison Swan Primary Care Physician [facility] Date[facility]s): 03/14/20 - 03/21/20 [facility] [address] [place] [address]- Attending Physician: Eduardo GOLD, David Referring Physician: [...] Vaccine (oldterm) 03/08/00 Given 1Result Comment: [12/09/2017] [id number] 2Result Comment: [04/15/2015 Uncharted] Pt had influenza vaccine 12/12/15- 3Admin Note: PT had the flu shot done at [facility] Flu clinic 4Admin Note: GIVEN IN CLINIC [facility] 5Admin Note: [employer] [facility] 6Admin Note: [employer] [facility] 7Admin Note: GIVEN AT OUTSIDE CLINIC 8Admin Note: per pt rcvd elsewhere Medications amiodarone 200 mg oral tablet 200 mg, 1, tablet, By Mouth, 2 times a day, # 60 tablet, Refills 5, Tot. Refills 5, Maintenance, 03/20/20 10:44:00 EST, Route to Pharmacy Electronically, [facility]/pharmacy #[id number], Partial fill upon patientrequest if the prescription [...] Pharmacy Electronically, [facility]/pharmacy #[id number], Partial fill upon patient request if the [...] Refills, Maintenance, 03/20/20 10:44:00 EST, ER Tablet, [facility]/pharmacy #7111, Partial [...] 4colo 2004 nl, rpt 2013 5MI 2019 82926; no repeat due to age 7restarted HCTZ; will monitor 8holding hctz ;recheck 9Antibody positive 10thought to be medication related by neurology Social History Social History Type Response Smoking Status Never smoker; Tobacc o user in household: No entered on: 07/05/14 Sex
--- OUTSIDE RECORDS SUMMARY | 2024-01-05 22:59 | XMS_ITS | Continuity of Care Document ---
Author Organization [facility] Address [address] [place] [address]- Care Team Providers Care Milking Worker Name Role Phone Garrison Beatty MD Primary Care Physician Encounter [facility] Date(s): 01/21/22 - 02/20/22 [facility] [address] [place] [address]- Attending Physician: Renetta Strickland Admitting Physician: Renetta [...] 23-valent vaccine 6 07/29/21 Given SARS-CoV-2 mRNA ([id number]-[id number]-svhgc) vax 06/21/21 Recorded SARS-CoV-2 (COVID-19) mRNA BNT-162b2 [...] Toxoid Vaccine (oldterm) 03/08/00 Given 1Result Comment: [facility]# [id number] 2Result Comment: [12/09/2017] [id number] 3Result Comment: [04/15/2015 Uncharted] Pt had influenza vaccine 12/12/15- 4Admin Note: PT had the flu shot done at [facility] Flu clinic 5Admin Note: GIVEN IN CL[facility]IC [facility] 6Result Comment: [facility]# [id number] 7Admin Note: [employer] [facility] 8Admin Note: [employer] [facility] 9Admin Note: GIVEN AT OUTSIDE CLINIC 10Admin Note: per pt rcvd elsewhere Medications amLODIPine 5 mg oral tablet See Instructions, TAKE 1 TABLET BY MOUTH EVERY DAY, # 30 tablet, 5 Refills, Maintenance, 01/01/22 15:18:00 EDT, [facility], 158, cm, 11/27/21 8:19:00 EDT, Height, 63, [...] EST, [id number] Partial fill upon patient request if the prescription is for a schedule II... Start Date: 02/02/22 Status: Ordered clopidogrel 75 mg oral tablet 1, tablet, By Mouth, Daily, # 30 tablet, Refills 0, Maintenance, 11/06/21 16:29:00 EDT, Route to Pharmacy Electronically, [facility] STORE 30219, 158, cm, 10/02/21 9:27:00 EDT, Height, 63, kg, 07/28/21 1:38:00 EDT, Dry Weight Start Date: 11/06/21 Status: Ordered donepezil 5 mg oral tablet See Instructions, TAKE 1 TABLET BY MOUTH AT BEDTIME, # 30 tablet, Refills 5, Tot. Refills 5, 01/23/22 15:56:00 EST, Instructions Replace Required Details, [id number] 158, cm, 01/21/22 13:27:00 EST, Height, 63... Start Date: 01/23/22 Status: Ordered Lasix 40 mg oral tablet 40 mg, 1, tablet, By Mouth, Daily, # 30 tablet, Refills 11, Tot. Refills 11, Maintenance, 03/12/21 16:08:00 EST, [id number] Partial fill upon patient request if the prescription is for a schedule II opioid dr... Start Date: 03/12/21 Stop Date: 03/07/22 Status: Ordered lisinopril 10 mg oral tablet 10 mg, 1, tablet, By Mouth, 2 times a day, # 180 tablet, Refills 3, Tot. Refills 3, Maintenance, 03/07/22 16:09:00 EST, [id number] Partial fill upon patientrequest if the prescription is for a schedule II op... Start Date: 03/07/22 Status: Ordered magnesium oxide 400 mg oral tablet 1 tablet = 400 mg, By Mouth, Daily, for 30 days, # 30 tablet, 11 Refills, Acute 03/07/22 16:11:00 EST, 03/12/21 16:11:00 EST, Tablet, [facility]/pharmacy #[id number], Partial fill upon patient [...] Refills, Maintenance, 01/23/22 15:28:00 EST, ER Capsule, [facility]/pharmacy #[id number], Partial fill upon patient [...] 4colo 2004 nl, rpt 2013 5MI 2019 [address]; no repeat due to age 7restarted HCTZ; [...] Care Nurse Name: Annia Iniguez NP Position: [facility] Associate Professional Member Role: Primary Care Nurse Address: Address: [address] [place] [address]- [place] Name: Garrison Beatty MD Position: [facility] Primary Care Physician Member Role: PCP Address: Address: [address] [place] [address]- [place] Name: David Knapp MD Position: [facility] Renal MD Member Role: Lifetime Consulting Physician Address: Address: [address] [facility] [address] [facility] [place] [address]- [place] Name: Zabrina Reyes RN Position: [facility] RN Member Role: Primary Care Nurse Name: Melissa Ugarte RN Position: [facility] RN Member Role: Primary Care Nurse Care Team Related Persons Name: LIVIA MAXWELL Address: [address] [address] Name: DINA MAXWELL Address: [address] [address]
--- OUTSIDE RECORDS SUMMARY | 2024-01-05 22:59 | XMS_ITS | Continuity of Care Document ---
Author Organization [facility] Yon lt Address [address] [place] [address]- Care Team Providers Care Food Counter Attendant Name Role Phone Jaci GOLD, Garrison Swan Primary Care Physician [facility]counter [facility] Date(s): 01/16/21 - 02/15/21 [facility] Adult [address] [place] [address]- Allergies, Adverse Reactions, Alerts Substance Reaction Severity [...] Vaccine (oldterm) 03/08/00 Given 1Result Comment: [12/09/2017] [id number] 2Result Comment: [04/15/2015 Uncharted] Pt had influenza vaccine 12/12/15- 3Admin Note: PT had the flu shot done at [facility] Flu clinic 4Admin Note: GIVEN IN CL[facility]IC [facility] 5Admin Note: [employer] [facility] 6Admin Note: [facility] 7Admin Note: GIVEN AT [...] Maintenance,08/07/20 13:57:00 EDT, Route to Pharmacy Electronically, [facility]/pharmacy #[id number], Partial fill upon patient request if the prescription is for a schedule II... Start Date: 08/07/20 Stop Date: 08/02/21 Status: Ordered clopidogrel 75 mg oral tablet 1, tablet, By Mouth, Daily, # 30 tablet, Refills 5, Tot. Refills 0, Maintenance, 10/04/20 11:01:00 EDT, Route to Pharmacy Electronically, [facility] 22017, 160, cm, 08/30/20 13:24:00 EDT, Height, 56.5, kg, 07/18/20 15:54:00 EDT, Dry Weight Start Date: 10/04/20 Status: Ordered Lasix 40 mg oral tablet 40 mg, 1, tablet, By Mouth, Daily, # 30 tablet, Refills 11, Tot. Refills 11, Maintenance, 04/29/20 9:22:00 EST, Route to Pharmacy Electronically, [facility]/pharmacy #[id number], Partial fill upon patient requestif the prescription is for a schedule II opioid symone... Start Date: 04/29/20 Stop Date: 04/24/21 Status: Ordered lisinopril 2.5 mg oral tablet 2.5 mg, 1, tablet, By Mouth, Daily, # 30 tablet, Refills 11, Tot. Refills 11, Maintenance, 10/25/2111:27:00 EDT, [facility] [...] 4colo 2004 nl, rpt 2013 5MI 2019 [address]; no repeat due to age 7restarted HCTZ; will monitor 8holding hctz ;recheck 9Antibody positive 10thought to be medication related by neurology Social History Social History Type Response Smoking Status Never (less than 100 in lifetime) entered on: 12/02/20 Sex
--- OUTSIDE RECORDS SUMMARY | 2024-01-05 22:59 | XMS_ITS | Continuity of Care Document ---
Author Organization [facility] Address [address] [place] [address]- Care Team Providers Care Political Worker Name Role Phone Garrison Beatty MD Primary Care Physician Encounter [facility] Date(s): 11/14/19 - 12/14/19 [facility] [address] [place] [address]- [facility] Allergies, Adverse Reactions, Alerts Substance Reaction Severity [...] Vaccine (oldterm) 03/08/00 Given 1Result Comment: [12/09/2017] [address]-21 2Result Comment: [04/15/2015 Uncharted] Pt had influenza vaccine 12/12/15- 3Admin Note: PT had the flu shot done at [facility] Flu [facility] 4Admin Note: GIVEN IN CLINIC [facility] 5Admin Note: [employer] [facility] 6Admin Note: [employer] [facility] 7Admin Note: GIVEN AT OUTSIDE CLINIC 8Admin [...] Maintenance,12/05/19 12:01:00 EDT, Route to Pharmacy Electronically, [facility]/pharmacy #[id number], 158, cm, 12/05/19 11:43:00 EDT, Height, [...] colo 2008 4colo 2003 nl, rpt 2013 20842; no repeat due to age 6restarted HCTZ; will monitor 7holding hctz ;recheck 8Antibody positive 9thought to be medication related by neurology Social History Social History Type Response Smoking Status Never smoker; Tobacc o user in household: No entered on: 07/05/14 Sex
--- OUTSIDE RECORDS SUMMARY | 2024-01-05 22:59 | XMS_ITS | Continuity of Care Document ---
Author Organization [facility] Address [address] [place] [address]- Care Team Providers Care Bone Cooking Operator Name Role Phone Garrison Beatty MD Primary Care Physician [phone] Encounter [facility] Date(s): 08/09/20 - 09/08/20 [facility] [address] [place] [address]- Allergies, Adverse Reactions, Alerts Substance Reaction Severity [...] Vaccine (oldterm) 03/08/00 Given 1Result Comment: [12/09/2017] [address]-08 2Result Comment: [04/15/2015 Uncharted] Pt had influenza vaccine 12/12/15- 3Admin Note: PT had the flu shot done at [facility] Flu [facility] 4Admin Note: GIVEN IN [facility]IC [facility] 5Admin Note: [employer] [facility] 6Admin Note: [employer] [facility] 7Admin Note: GIVEN AT OUTSIDE CLINIC [...] 09/03/20 7:05:00 EDT, Route to Pharmacy Electronically, [facility]/pharmacy #[id number], 160, cm, 06... Start Date: [...] 08/29/20 13:46:00 EDT, [facility] 2008 4colo 2004 nl, rpt 2013 52019 [address]; no repeat due to age 7restarted HCTZ; will monitor 8holding hctz ;recheck 9Antibody positive 10thought to be medication related by neurology Social History Social History Type Response Smoking Status Never smoker; Tobacc o user in household: No entered on: 07/05/14 Sex
--- OUTSIDE RECORDS SUMMARY | 2024-01-05 23:00 | XMS_ITS | Continuity of Care Document ---
Author Organization [facility] Cayden Ontiveros Yon lt Address [address] [place] [address]- Care Team Providers Care Paint Maker Name Role Phone Garrison Beatty MD Primary Care Physician [facility]counter [facility] Date(s): 02/17/19 - 02/24/19 [facility] Andradeley Adult [address] [place] [address]- [place] Encounter Diagnosis Benign Essential Hypertension(Discharge Diagnosis) - 02/17/19 Attending Physician: Garrison Beatty MD Allergies, Adverse [...] Vaccine (oldterm) 03/08/00 Given 1Result Comment: [12/09/2017] [id number] 2Result Comment: [04/15/2015 Uncharted] Pt had influenza vaccine 12/12/15- 3Admin Note: PT had the flu shot done at [facility] Flu clinic 4Admin Note: GIVEN IN [facility] 5Admin Note: [employer] [facility] 6Admin Note: [employer] [facility] 7Admin Note: [...] 01/09/19 13:33:23 EST, Route to Pharmacy Electronically, [id number], [facility] # [id number] Start Date: 01/09/19 [...] colo 2008 4colo 2003 nl, rpt 2013 29531; no repeat due to age 6restarted HCTZ; will monitor 7holding hctz ;recheck 8Antibody positive 9thought to be medication related by neurology Diagnosis Diagnosis Type Effective Dates Health Status Clinical Service Informant Benign Essential Hypertension Discharge Diagnosis 02/17/19 Vital Signs Most recent to oldest [Reference Range]: 1 Height 155.5 cm (02/17/19 10:28 AM) Weight 62.7 kg (02/17/19 10:28 AM) Oxygen Saturation [94-100 %] 99 % (02/17/19 10:28 AM) Pulse Rate [55-90 bpm] 82 bpm (02/17/19 10:28 AM) Body Mass Index [18.5-24.99] 25.93 *H* (02/17/19 10:28 AM) Blood Pressure [90-138/55-84 mm Hg] 130/ 78mm Hg (02/17/19 10:28 AM) Mode of Delivery (Oxygen) Room air (02/17/19 10:28 AM) Blood pressure sites Arm, left (02/17/19 10:28 AM) Weight Obtained Via Standing scale (02/17/19 10:28 AM) Social History Social History Type Response Smoking Status Never smoker; Tobacc o user in household: No entered on: 07/05/14 Sex
--- OUTSIDE RECORDS SUMMARY | 2024-01-05 23:00 | XMS_ITS | Continuity of Care Document ---
Author Organization [facility] Yon lt Address [address] [place] [address]- Care Team Providers Care Art Librarian Name Role Phone Jaci GOLD, Garrison Swan Primary Care Physician [facility]counter [facility] Date(s): 09/16/21 - 10/16/21 [facility] Adult [address] [place] [address]- Allergies, Adverse Reactions, Alerts Substance Reaction Severity Status cephalexin Active nitrofurantoin Active sulfADIAZINE Ciprofloxacin Active predniSONE SEVERE H/A Active valsartan 1 Active Macrobid Active statins MYALGIAS Active 1dizziness Immunizations Given and Recorded Vaccine Date Status Refusal Reason pneumococcal 23-valent vaccine 1 07/29/21 Given SARS-CoV-2 mRNA (vyyjpsr-snqi-gjxzt) vax 06/21/21 Recorded influenza virus vaccine, inactivated [...] Toxoid Vaccine (oldterm) 03/08/00 Given 1Result Comment: [facility]# [id number] 2Result Comment: [12/09/2017] [id number] 3Result Comment: [04/15/2015 Uncharted] Pt had influenza vaccine 12/12/15- 4Admin Note: PT had the flu shot done at [facility] Flu clinic 5Admin Note: GIVEN IN CLINIC [facility] 6Admin Note: [facility] 7Admin Note: [facility] 8Admin Note: GIVEN AT OUTSIDE CLINIC 9Admin Note: per pt rcvd elsewhere Medications amLODIPine 5 mg oral tablet 5 mg, 1, tablet, By Mouth, Daily, # 30 tablet, Refills 11, Tot. Refills 11, Maintenance, 03/12/21 16:13:00 EST, Route to Pharmacy Electronically, [facility]/pharmacy #[id number], Partial fill upon patient requestif the prescription [...] 10/13/21 14:45:00 EDT, Route to Pharmacy Electronically, [facility]/pharmacy #[id number], Partial fill upon patient request if the prescription is for a schedule II o... Start Date: 10/13/21 Status: Ordered clopidogrel 75 mg oral tablet 1, tablet, By Mouth, Daily, # 30 tablet, Refills 11, Tot. Refills 11, Maintenance, 03/12/21 16:09:00 EST, [id number], cm, 03/12/21 13:26:00 EST, Height,60, kg, 01/20/21 16:03:00 EST, Dry Weight Start Date: 03/12/21 Status: Ordered donepezil 5 mg oral tablet See Instructions, TAKE 1 TABLET BY MOUTH AT BEDTIME, # 30 tablet, Refills 2, Instructions Replace Required Details, Route to Pharmacy Electronically, [facility] STORE 95052, 158, cm, 10/02/21 9:27:00 EDT, Height, 63, kg, 07/28/21 1:38:00 EDT, Dry Weight Start Date: 10/16/21 Status: Ordered Lasix 40 mg oral tablet 40 mg, 1, tablet, By Mouth, Daily, # 30 tablet, Refills 11, Tot. Refills 11, Maintenance, 03/12/21 16:08:00 EST, [id number] Partial fill upon patient request if the prescription is for a schedule II opioid dr... Start Date: 03/12/21 Stop Date: 03/07/22 Status: Ordered lisinopril 10 mg oral tablet 10 mg, 1, tablet, By Mouth, 2 times a day, # 60 tablet, Refills 11, Tot. Refills 11, Maintenance, 03/12/21 16:09:00 EST, Route to Pharmacy Electronically, [facility]/pharmacy #[id number], Partial fill upon patient request if the prescription is for a schedule II o... Start Date: 03/12/21 Stop Date: 03/07/22 Status: Ordered magnesium oxide 400 mg oral tablet 1 tablet = 400 mg, By Mouth, Daily, for 30 days, # 30 tablet, 11 Refills, Acute 03/07/22 16:11:00 EST, 03/12/21 16:11:00 EST, [id number] Partial fill upon patient request [...] Refills, Maintenance, 03/12/21 16:07:00 EST, ER Capsule, [facility]/pharmacy #7111, Partial fill upon [...] 4colo 2004 nl, rpt 2013 5MI 2019 [address]; no repeat due to age 7restarted HCTZ; will monitor 8holding hctz ;recheck 9Per discharge note 03/05/21: Long-standing schizoaffective disorder, bipolar type. 10Antibody positive 11thought to be medication related by neurology Social History Social History Type Response Smoking Status Never (less than 100 in lifetime) entered on: 12/02/20 Sex
--- OUTSIDE RECORDS SUMMARY | 2024-01-05 23:00 | XMS_ITS | Continuity of Care Document ---
Author Organization [facility] Address [address] [place] [address]- Care Team Providers Care Property Man Name Role Phone Garrison Beatty MD Primary Care Physician Encounter [facility] Date(s): 05/21/22 - 06/20/22 [facility] [address] [place] [address]- Allergies, Adverse Reactions, Alerts Substance Reaction Severity [...] 23-valent vaccine 6 07/29/21 Given SARS-CoV-2 mRNA ([id number]-qaez-adrib) vax 06/21/21 Recorded SARS-CoV-2 (COVID-19) mRNA BNT-162b2 [...] 03/08/00 Given 1Result Comment: [facility]# [id number] 2Result Comment: [12/09/2017] [id number] 3Result Comment: [04/15/2015 Uncharted] Pt had influenza vaccine 12/12/15- 4Admin Note: PT had the flu shot done at [facility] Flu clinic 5Admin Note: GIVEN IN CLINIC [facility] 6Result Comment: [facility]# [id number] 7Admin Note: [facility] 8Admin Note: [facility] 9Admin Note: GIVEN AT OUTSIDE CLINIC 10Admin Note: per pt rcvd elsewhere Medications amLODIPine 5 mg oral tablet 1 tablet, By Mouth, Daily, # 30 tablet, 5 Refills, Maintenance, 04/17/22 19:41:00 EST, [facility] STORE 11895, 158, cm, 02/27/22 13:27:00 EST, Height, 63, kg, 07/28/21 1:38:00 EDT, Dry Weight Start Date: 04/17/22 Status: Ordered aspirin 81 mg oral delayed release tablet 81 mg, 1, tablet, By Mouth, Daily, # 30 tablet, Refills 5, Tot. Refills 5, Maintenance, 03/26/22 11:58:00 EST, Route to Pharmacy Electronically, [facility]/pharmacy #6156, Partial fill upon patient request if the prescription is for a schedule II opioid drug... Start Date: 03/26/22 Status: Ordered carvedilol 6.25 mg oral tablet 6.25 mg, 1, tablet, By Mouth, 2 times a day, # 180 tablet, Refills 3, Tot. Refills 3, Maintenance, 02/02/22 16:34:00 EST, Route to Pharmacy Electronically, [facility]/pharmacy #7111, Partial fill upon patient request if the prescription is for a schedule II... Start Date: 02/02/22 Status: Ordered clopidogrel 75 mg oral tablet 1, tablet, By Mouth, Daily, # 30 tablet, Refills 5, Tot. Refills 5, Maintenance, 03/26/22 11:55:00 EST, Route to Pharmacy Electronically, [facility]/pharmacy #7111, 158, cm, 02/27/22 13:27:00 EST, Height, 63, kg, 07/28/21 1:38:00 EDT, Dry Weight Start Date: 03/26/22 Status: Ordered Daily Brielle oral tablet 1 tablet, By Mouth, Daily, # 30 tablet, 11 Refills, Maintenance, 03/18/22 11:57:00 EST, [facility], 30, TAKE 1 TABLET BY MOUTH EVERY DAY, 158, cm, 02/27/22 13:27:00 EST, Height, 63, kg, 221:38:00 EDT, Dry Weight Start Date: 03/18/22 Status: Ordered donepezil 5 mg oral tablet 1, tablet, By Mouth, Daily at bedtime, # 30 tablet, Refills 2, Maintenance, 05/25/22 16:50:00 EDT, Route to Pharmacy Electronically, [facility], 158, cm, 02/27/22 13:27:00 EST, Height, 63, kg, 07/28/21 1:38:00 EDT, Dry Weight Start Date: 05/25/22 Status: Ordered High Potency Vitamin D3 25 mcg (1000 intl units) oral capsule 1 capsule = 25 mcg, By Mouth, Daily, # 30 capsule, 5 Refills, Maintenance, 03/26/22 11:54:00 EST, [facility]/pharmacy #[id number], Partial fill upon patient request if the prescription is for a schedule II opioiddrug., 158, cm, 02/27/22 13:27:00 EST, Height, 63,... Start Date: 03/26/22 Status: Ordered Lasix 40 mg oral tablet 40 mg, 1, tablet, By Mouth, Daily, # 30 tablet, Refills 5, Tot. Refills 5, Maintenance, 03/26/22 11:53:00 EST, [facility] 03/07/22 16:09:00 EST, Route to Pharmacy Electronically, [facility]/pharmacy #7111, Partial fill upon patientrequest [...] Refills, Maintenance, 01/23/22 15:28:00 EST, ER Capsule, [facility] [...] 4colo 2004 nl, rpt 2013 5MI 2019 [address]; no repeat due to age 7restarted HCTZ; will monitor 8holding hctz ;recheck 9Per discharge note 03/05/21: Long-standing schizoaffective disorder, bipolar type. 10Antibody positive 11thought to be medication related by neurology Social History Social History Type Response Smoking Status Never (less than 100 in lifetime) entered on: 12/02/20 Sex Patient Care team information Care Team Personnel Name: Carley Vazquez RN Position: [facility] RN Member Role: Primary Care Nurse Name: Annia Iniguez NP Position: [facility] Associate Professional Member Role: Primary Care Nurse Address: Address: [address] [place] [address]- [place] Name: Garrison Beatty MD Position: [facility] Primary Care Physician Member Role: PCP Address: Address: [address] [place] [address]- [place] Name: David Knapp MD Position: [facility] Renal MD Member Role: Lifetime Consulting Physician Address: Address: [address] [facility], [place] [address]- [place] Name: Zabrina Reyes RN Position: [facility] RN Member Role: Primary Care Nurse Name: Melissa Ugarte RN Position: S RN Member Role: Primary Care Nurse Care Team Related Persons Name: LIVIA MAXWELL Address: [address] [place] [address] Name: DINA MAXWELL Address: home [address] [place] [address]
--- OUTSIDE RECORDS SUMMARY | 2024-01-05 23:00 | XMS_ITS | Continuity of Care Document ---
Author Organization [facility] Weston Yon lt Address [address] [place] [address]- Care Team Providers Care Intermodal Dispatcher Name Role Phone Jaci GOLD, Garrison Swan Primary Care Physician [place] [facility] [place] 07/02/20 - 07/09/20 [facility] Adult [address] [place] [address]- Encounter Diagnosis Myalgia(Discharge Diagnosis) - 07/02/20 Benign Essential Hypertension(Discharge Diagnosis) - 07/02/20 Anxiety(Discharge Diagnosis) - 07/02/20 Attending Physician: Bonnie Jewell NP Allergies, Adverse Reactions, Alerts Substance Reaction [...] Vaccine (oldterm) 03/08/00 Given 1Result Comment: [12/09/2017] [id number] 2Result Comment: [04/15/2015 Uncharted] Pt had influenza vaccine 12/12/15- 3Admin Note: PT had the flu shot done at [facility] Flu clinic 4Admin Note: GIVEN IN CL[facility]IC [facility] 5Admin Note: [facility] [facility] 6Admin Note: [employer] [facility] 7Admin Note: GIVEN AT OUTSIDE CLINIC 8Admin Note: per pt rcvd elsewhere Medications carvedilol 3.125 mg oral tablet See Instructions, TAKE 1 TABLET BY MOUTH TWICE A DAY, # 60 tablet, Refills 11, Tot. Refills 11, Maintenance, Instructions Replace Required Details, Route to Pharmacy Electronically, [facility] STORE 62314, 160, cm, 07/05/20 7:47:00 EDT, Height, 62, kg, 02/26... Start Date: 07/05/20 Status: Ordered Lasix 40 mg oral tablet 40 mg, 1, tablet, By Mouth, Daily, # 30 tablet, Refills 11, Tot. Refills 11, Maintenance, 04/29/20 9:22:00 EST, Route to Pharmacy Electronically, [facility]/pharmacy #[id number], Partial fill upon patient requestif the prescription [...] 03/20/20 10:44:00 EST, Route to Pharmacy Electronically, [facility]/pharmacy #[id number], Partial fill upon patient request if the prescription is for a schedule II opioid drug... Start Date: 03/20/20 Status: Ordered potassium chloride 10 mEq oral tablet, extended release 2 tablet = 20 mEq, By Mouth, Daily in AM, # 60 tablet, 5 Refills, Maintenance, 04/29/20 9:23:00 EST, ER Tablet, [facility]/pharmacy #7111, Partial fill upon [...] 4colo 2003 nl, rpt 2013 5MI 2019 79486; no repeat due to age 7restarted HCTZ; will monitor 8holding hctz ;recheck 9Antibody positive 10thought to be medication related by neurology Diagnosis Diagnosis Type Effective Dates Health Status Clinical Service Informant Myalgia Discharge Diagnosis 07/02/20 Benign Essential Hypertension Discharge Diagnosis 07/02/20 Anxiety Discharge Diagnosis 07/02/20 Vital Signs Most recent to oldest [Reference Range]: 1 Height 160 cm (07/02/20 10:43 AM) Weight 56.81 kg (07/02/20 10:43 AM) Body Mass Index [18.5-24.99] 22.19 (07/02/20 10:43 AM) Weight Obtained Via Standing scale (07/02/20 10:43 AM) Social History Social History Type Response Smoking Status Never smoker; Tobacc o user in household: No entered on: 07/05/14 Sex
--- OUTSIDE RECORDS SUMMARY | 2024-01-05 23:00 | XMS_ITS | Continuity of Care Document ---
Author Organization [facility] Weston Yon lt Address [address] [place] [address]- Care Team Providers Care Shift Lab Technician Name Role Phone Garrison Beatty MD Primary Care Physician [phone] [facility] Date[facility]): 08/20/21 - 12/18/21 [facility] Adult [address] [place] [address]- Attending Physician: Garrison Beatty MD Allergies, Adverse [...] 23-valent vaccine 6 07/29/21 Given SARS-CoV-2 mRNA (xvdcmre-egim-bocjk) vax 06/21/21 Recorded SARS-CoV-2 (COVID-19) mRNA BNT-162b2 [...] 03/08/00 Given 1Result Comment: [facility]# [id number] 2Result Comment: [12/09/2017] [id number] 3Result Comment: [04/15/2015 Uncharted] Pt had influenza vaccine 12/12/15- 4Admin Note: PT had the flu shot done at [facility] Flu clinic 5Admin Note: GIVEN IN [facility] 6Result Comment: [facility]# [id number] 7Admin Note: [employer] [facility] 8Admin Note: [employer] [facility] 9Admin Note: GIVEN AT OUTSIDE CLINIC 10Admin Note: per pt rcvd elsewhere Medications amLODIPine 5 mg oral tablet 5 mg, 1, tablet, By Mouth, Daily, # 30 tablet, Refills 11, Tot. Refills 11, Maintenance, 03/12/21 16:13:00 EST, Route to Pharmacy Electronically, [facility]/pharmacy #[id number], Partial fill upon patient requestif the prescription [...] 10/13/21 14:45:00 EDT, Route to Pharmacy Electronically, [facility]/pharmacy #7111, Partial fill upon patient request if the prescription is for a schedule II o... Start Date: 10/13/21 Status: Ordered clopidogrel 75 mg oral tablet 1, tablet, By Mouth, Daily, # 30 tablet, Refills 0, Maintenance, 11/06/21 16:29:00 EDT, Route to Pharmacy Electronically, [facility] STORE 41578, 158, cm, 10/02/21 9:27:00 EDT, Height, 63, kg, 07/28/21 1:38:00 EDT, Dry Weight Start Date: 11/06/21 Status: Ordered donepezil 5 mg oral tablet See Instructions, TAKE 1 TABLET BY MOUTH AT BEDTIME, # 30 tablet, Refills 2, Instructions Replace Required Details, Route to Pharmacy Electronically, [facility] STORE 08698, 158, cm, 10/02/21 9:27:00 EDT, Height, 63, kg, 07/28/21 1:38:00 EDT, Dry Weight Start Date: 10/16/21 Status: Ordered Lasix 40 mg oral tablet 40 mg, 1, tablet, By Mouth, Daily, # 30 tablet, Refills 11, Tot. Refills 11, Maintenance, 03/12/21 16:08:00 EST, [facility] 03/12/21 16:09:00 EST, Route to Pharmacy Electronically, [facility]/pharmacy #7111, Partial fill upon patient request if the pr... Start Date: 03/12/21 Stop Date: 03/07/22 Status: Ordered lisinopril 10 mg oral tablet 10 mg, 1, tablet, By Mouth, 2 times a day, # 180 tablet, Refills 3, Tot. Refills 3, Maintenance, 03/07/22 16:09:00 EST, Route to Pharmacy Electronically, [facility]/pharmacy #7111, Partial fill upon patientrequest if the prescription is for a schedule II op... Start Date: 03/07/22 Status: Ordered magnesium oxide 400 mg oral tablet 1 tablet = 400 mg, By Mouth, Daily, for 30 days, # 30 tablet, 11 Refills, Acute 03/07/22 16:11:00 EST, 03/12/21 16:11:00 EST, Tablet, [facility]/pharmacy #[id number], Partial fill [...] Refills, Maintenance, 03/12/21 16:07:00 EST, ER Capsule, [facility]/pharmacy #7111, Partial fill [...] 4colo 2003 nl, rpt 2013 5MI 2019 18966; no repeat due to age 7restarted HCTZ; will monitor 8holding hctz ;recheck 9Per discharge note 03/05/21: Long-standing schizoaffective disorder, bipolar type. 10Antibody positive 11thought to be medication related by neurology Social History Social History Type Response Smoking Status Never (less than 100 in lifetime) entered on: 12/02/20 Sex Patient Care team information Personnel Name: Jaci GOLD, Garrison Swan Address: Address: [address] [place] [id number]
--- OUTSIDE RECORDS SUMMARY | 2024-01-05 23:00 | XMS_ITS | Continuity of Care Document ---
Author Organization [facility] Address [address] [place] [address]- Care Team Providers Care Trade Manager Name Role Phone Garrison Beatty MD Primary Care Physician [facility] Date[facility]s): 04/08/20 - 05/08/20 [facility] [address] [place] [address]- Allergies, Adverse Reactions, Alerts Substance Reaction Severity [...] Vaccine (oldterm) 03/08/00 Given 1Result Comment: [12/09/2017] [id number] 2Result Comment: [04/15/2015 Uncharted] Pt had influenza vaccine 12/12/15- 3Admin Note: PT had the flu shot done at [facility] Flu clinic 4Admin Note: GIVEN IN CL[facility]IC [facility] 5Admin Note: [employer] [facility] 6Admin Note: [employer] [facility] 7Admin Note: GIVEN AT OUTSIDE CLINIC 8Admin [...] 04/29/20 7:44:00 EST, Route to Pharmacy Electronically, [facility] STORE 49749, 160, cm, 04/25/20 9:48:00 EST, Height, 62, [...] Pharmacy Electronically, [facility]/pharmacy #[id number], Partial fill upon patient requestif the prescription is for a schedule II opioid symone... Start Date: 04/29/20 Stop Date: 04/24/21 Status: Ordered lisinopril 5 mg oral tablet 5 mg, 1, tablet, By Mouth, Daily, # 30 tablet, Refills 3, Tot. Refills 3, Maintenance, 04/25/20 10:36:00 EST, Route to Pharmacy Electronically, [facility]/pharmacy #7111, Partial fill upon patient request [...] Pharmacy Electronically, [facility]/pharmacy #7111, Partial fill upon patient request [...] 4colo 2003 nl, rpt 2013 5MI 2019 56508; no repeat due to age 7restarted HCTZ; will monitor 8holding hctz ;recheck 9Antibody positive 10thought to be medication related by neurology Social History Social History Type Response Smoking Status Never smoker; Tobacc o user in household: No entered on: 07/05/14 Sex
--- OUTSIDE RECORDS SUMMARY | 2024-01-05 23:00 | XMS_ITS | Continuity of Care Document ---
Author Organization [facility] Weston Yon lt Address [address] [place] [address]- Care Team Providers Care Wax Pattern Assembler Name Role Phone Jaci GOLD, Garrison Swan Primary Care Physician [facility] Date(s): 07/19/20 - 08/18/20 [facility] Adult [address] [place] [address]- Allergies, Adverse Reactions, Alerts Substance Reaction Severity [...] Vaccine (oldterm) 03/08/00 Given 1Result Comment: [12/09/2017] [id number] 2Result Comment: [04/15/2015 Uncharted] Pt had influenza vaccine 12/12/15- 3Admin Note: PT had the flu shot done at [facility] Flu clinic 4Admin Note: GIVEN IN [facility]IC [facility] 5Admin Note: [employer] [facility] 6Admin Note: [employer] [facility] 7Admin Note: GIVEN AT OUTSIDE CLINIC 8Admin Note: per pt rcvd elsewhere Medications carvedilol 6.25 mg oral tablet 6.25 mg, 1, tablet, By Mouth, 2 times a day, # 60 tablet, Refills 11, Tot. Refills 11, Maintenance,08/07/20 13:57:00 EDT, Route to Pharmacy Electronically, [facility]/pharmacy #[id number], Partial fill upon patient [...] capsule, 0 Refills, Maintenance, 07/24/20 12:45:00EDT, Capsule, [facility]/pharmacy #[id number], Partial fill upon patient request if the prescription is for a schedule II opioid drug., 160, cm, 07/23/20 12:27:00 E... Start Date: 07/24/20 Stop Date: 08/07/20 Status: Ordered Lasix 40 mg oral tablet 40 mg, 1, tablet, By Mouth, Daily, # 30 tablet, Refills 11, Tot. Refills 11, Maintenance, 04/29/20 9:22:00 EST, Route to Pharmacy Electronically, [facility]/pharmacy #[id number], Partial fill upon patient [...] 03/20/20 10:44:00 EST, Route to Pharmacy Electronically, [facility]/pharmacy #[id number], Partial fill upon patient [...] 5 Refills, Maintenance, 08/09/20 13:00:00 EDT, Tablet, [facility]/pharmacy #[id number], Partial fill upon patient [...] 4colo 2003 nl, rpt 2013 5MI 2019 81757; no repeat due to age 7restarted HCTZ; will monitor 8holding hctz ;recheck 9Antibody positive 10thought to be medication related by neurology Social History Social History Type Response Smoking Status Never smoker; Tobacc o user in household: No entered on: 07/05/14 Sex
--- OUTSIDE RECORDS SUMMARY | 2024-01-05 23:00 | XMS_ITS | Continuity of Care Document ---
Author Organization [facility] Weston Yon lt Address [address] [place] [address]- Care Team Providers Care School Adjustment Counselor Name Role Phone Garrison Beatty MD Primary Care Physician [phone] [facility]counter [facility] Date(s): 11/28/19 - 12/28/19 [facility] Adult [address] [place] [address]- [facility] Allergies, Adverse Reactions, Alerts Substance Reaction Severity [...] Vaccine (oldterm) 03/08/00 Given 1Result Comment: [12/09/2017] [id number] 2Result Comment: [04/15/2015 Uncharted] Pt had influenza vaccine 12/12/15- 3Admin Note: PT had the flu shot done at [facility] Flu clinic 4Admin Note: GIVEN IN CL[facility]IC [facility] 5Admin Note: [employer] [facility] 6Admin Note: [employer] [facility] 7Admin Note: GIVEN AT OUTSIDE CLINIC 8Admin [...] Maintenance,12/05/19 12:01:00 EDT, Route to Pharmacy Electronically, [facility]/pharmacy #[id number], 158, cm, 12/05/19 11:43:00 EDT, [...] colo 2008 4colo 2003 nl, rpt 2013 58914; no repeat due to age 6restarted HCTZ; will monitor 7holding hctz ;recheck 8Antibody positive 9thought to be medication related by neurology Social History Social History Type Response Smoking Status Never smoker; Tobacc o user in household: No entered on: 07/05/14 Sex
--- OUTSIDE RECORDS SUMMARY | 2024-01-05 23:00 | XMS_ITS | Continuity of Care Document ---
Author Organization [facility] Cayden Ontiveros Yon lt Address [address] [place] [address]- Care Team Providers Care In House Cra Name Role Phone Delvis ALEXANDER, Catie Shelton Primary Care Physician [facility] Date[facility]s): 02/14/23 - 03/16/23 [facility] [place] Adult [address] [place] [address]- Allergies, Adverse Reactions, Alerts Substance Reaction Severity [...] virus vaccine, inactivated 3 12/30/05 Gi cyn [id number] 12y+ bivalent booster vax 08/06/22 Recorded [id number] 12y+ bivalent booster vax 12/13/21 Recorded pneumococcal 23-valent vaccine 4 07/29/21 Given SARS-CoV-2 mRNA (gkyptnt-oxbj-dsooy) vax 06/21/21 Recorded SARS-CoV-2 (COVID-19) mRNA BNT-162b2 [...] Toxoid Vaccine (oldterm) 03/08/00 Given 1Result Comment: [facility]# [id number] 2Result Comment: [12/09/2017] [id number] 3Admin Note: GIVEN IN [facility] 4Result Comment: [facility]# [id number] 5Admin Note: [employer] [facility] 6Admin Note: [employer] 7Admin Note: GIVEN AT OUTSIDE CLINIC 8Admin Note: per pt rcvd elsewhere Medications amLODIPine 5 mg oral tablet 1 tablet, By Mouth, Daily, # 30 tablet, 5 Refills, Maintenance, 03/14/23 14:05:00 EST, [facility] STORE 25992, 157.5, cm, 08/04/22 8:48:00 EDT, Height, 59.5, kg, 06/03/22 14:32:00 EDT, Dry Weight Start Date: 03/14/23 Status: Ordered Aspirin Low Dose 81 mg oral delayed release tablet 1 tablet, By Mouth, Daily, # 30 tablet, 5 Refills, Maintenance, 09/14/22 6:19:00 EDT, [facility] STORE 15733, 157.5, cm, 08/04/22 8:48:00 EDT, Height, 59.5, kg, 06/03/22 14:32:00 EDT, Dry Weight Start Date: 09/14/22 Status: Ordered carvedilol 6.25 mg oral tablet 1, tablet, By Mouth, 2 times a day, # 180 tablet, Refills 1, Tot. Refills 1, Maintenance, 01/27/23 20:22:00 EST, [id number], 157.5, cm, 08/04/22 8:48:00 EDT,Height, 59.5, kg, 06/03/22 14:32:00 EDT, Dry Weight Start Date: 01/27/23 Status: Ordered clopidogrel 75 mg oral tablet 1, tablet, By Mouth, Daily, # 30 tablet, Refills 5, Tot. Refills 5, Maintenance, 03/26/22 11:55:00 EST, [id number], cm, 02/27/22 13:27:00 EST, Height, 63, kg, 07/28/21 1:38:00 EDT, Dry Weight Start Date: 03/26/22 Status: Ordered Daily Brielle oral tablet 1 tablet, By Mouth, Daily, # 30 tablet, 11 Refills, Maintenance, 02/15/23 12:26:00 EST, [facility] STORE 16566, 30, TAKE 1 TABLET BY MOUTH EVERY DAY, 157.5, cm, 08/04/22 8:48:00 EDT, Height, 59.5, kg, 06/03/22 14:32:00 EDT, Dry Weight Start Date: 02/15/23 Status: Ordered donepezil 5 mg oral tablet 1, tablet, By Mouth, Daily at bedtime, # 30 tablet, Refills 2, Maintenance, 05/25/22 16:50:00 EDT, Route to Pharmacy Electronically, [facility] STORE 74672, 158, cm, 02/27/22 13:27:00 EST, Height, 63, kg, 07/28/21 1:38:00 EDT, Dry Weight Start Date: 05/25/22 Status: Ordered furosemide 40 mg oral tablet 1, tablet, By Mouth, Daily, # 30 tablet, Refills 5, Maintenance, 09/14/22 6:19:00 EDT, Route to Pharmacy Electronically, [facility] STORE 59463, 157.5, cm, 08/04/22 8:48:00 EDT, Height, 59.5, kg, 06/03/22 14:32:00 EDT, Dry Weight Start Date: 09/14/22 Status: Ordered lisinopril 10 mg oral tablet 1, tablet, By Mouth, 2 times a day, # 180 tablet, Refills 3, Maintenance, 01/25/23 11:53:00 EST, Route to Pharmacy Electronically, [facility] 89833, 157.5, cm, 08/04/22 8:48:00 EDT, Height, 59.5, [...] capsule, 3 Refills, Maintenance, 02/11/23 7:48:00 EST, [facility] STORE 23849, 157.5, cm, 08/04/22 8:48:00 EDT, Height, 59.5, kg, 06/03/22 14:32:00 EDT, Dry Weight Start Date: 02/11/23 Status: Ordered Vitamin D3 1000 intl units oral capsule 1 capsule, By Mouth, Daily, # 30 capsule, 5 Refills, Maintenance, 03/14/23 14:05:00 EST, [facility] STORE 46568, 157.5, cm, 08/04/22 8:48:00 EDT, Height, 59.5, [...] 4colo 2004 nl, rpt 2013 5MI 2019 86731; no repeat due to age 7restarted HCTZ; will monitor 8holding hctz ;recheck 9Per discharge note 03/05/21: Long-standing schizoaffective disorder, bipolar type. 10Antibody positive 11thought to be medication related by neurology Social History Social History Type Response Smoking Status Never (less than 100 in lifetime) entered on: 12/02/20 Sex Patient Care team information Care Team Personnel Name: Carley Vazquez RN Position: [facility] RN Member Role: Primary Care Nurse Name: Annia Iniguez NP Position: [facility] Associate Professional Member Role: Primary Care Nurse Address: Address: [address] [place] [address]- Name: Catie Washington Position: [facility] PCO Associate Professional Member Role: PCP Address: Address: [address] [place] [phone]- [place] Name: Ra GOLD, David Position: [facility] Renal MD Member Role: Lifetime Consulting Physician Address: Address: [address] [place] [address] [address] [facility] [place] [address]- [place] Name: Zabrina Reyes RN Position: S RN Member Role: Primary Care Nurse Name: Melissa Ugarte RN Position: S RN Member Role: Primary Care Nurse Care Team Related Persons Name: LIVIA MAXWELL Address: [address] [place] [address] Name: DINA MAXWELL Address: [address] [place] [address]
--- OUTSIDE RECORDS SUMMARY | 2024-01-05 23:00 | XMS_ITS | Continuity of Care Document ---
Author Organization [facility] ter Address [address] [place] [address]- Care Team Providers Care Water Hauler Name Role Phone Garrison Beatty MD Primary Care Physician [facility] Date[facility]s): 07/16/23 - 09/13/[address] [address] Attending Physician: Catie Washington Admitting Physician: Catie Washington Referring Physician: Catie Washington Allergies, Adverse Reactions, Alerts Substance Reaction Severity Status cephalexin Active nitrofurantoin Active sulfADIAZINE Ciprofloxacin Active predniSONE SEVERE H/A Active valsartan 1 Active statins MYALGIAS Active 1dizziness Immunizations Given and Recorded Vaccine Date Status Refusal Reason RSV vaccine, preF A-preF B, recombinant 03/23/23 R ecorded SARS-CoV-2(COVID-19)mRNA-LNP vac([id number]) 11/26/22 Recorded influenza virus vaccine, inactivated 11/05/22 [...] virus vaccine, inactivated 3 12/30/05 Gi cyn [id number] 12y+ bivalent booster vax 08/06/22 Recorded SASG-QlY-0eQOY 12y+ bivalent booster vax 12/13/21 Recorded pneumococcal 23-valent vaccine 4 07/29/21 Given SARS-CoV-2 mRNA (jnirewa-onba-pnuxt) vax 06/21/21 Recorded SARS-CoV-2 (COVID-19) mRNA BNT-162b2 [...] Toxoid Vaccine (oldterm) 03/08/00 Given 1Result Comment: [facility]# [id number] 2Result Comment: [12/09/2017] [id number] 3Admin Note: GIVEN IN [facility]IC [facility] 4Result Comment: [facility]# [id number] 5Admin Note: [employer] 6Admin Note: [employer] 7Admin Note: GIVEN AT OUTSIDE CLINIC 8Admin Note: per pt rcvd elsewhere Medications amLODIPine 5 mg oral tablet 1 tablet, By Mouth, Daily, # 30 tablet, 5 Refills, Maintenance, 08/30/23 14:03:00 EDT, [facility], 157.5, cm, 08/16/23 12:48:00 EDT, Height, 59.5, kg, 06/03/22 14:32:00 EDT, Dry Weight Start Date: 08/30/23 Status: Ordered Aspirin Low Dose 81 mg oral delayed release tablet 1 tablet, By Mouth, Daily, # 30 tablet, 5 Refills, Maintenance, 08/10/23 12:27:00 EDT, [facility], 157.5, cm, 06/22/23 15:03:00 EDT, Height, 59.5, kg, 06/03/22 14:32:00 EDT, Dry Weight Start Date: 08/10/23 Status: Ordered carvedilol 6.25 mg oral tablet 1, tablet, By Mouth, 2 times a day, # 180 tablet, Refills 1, Tot. Refills 1, Maintenance, 07/24/23 15:25:00 EDT, Route to Pharmacy Electronically, [facility]/pharmacy #7111, 157.5, cm, 06/22/23 15:03:00 EDT, Height, 59.5, kg, 06/03/22 14:32:00 EDT, Dry Weight Start Date: 07/24/23 Status: Ordered Daily Brielle oral tablet 1 tablet, By Mouth, Daily, # 30 tablet, 11 Refills, Maintenance, 02/15/23 12:26:00 EST, [facility] STORE 73107, 30, TAKE 1 TABLET BY MOUTH EVERY DAY, 157.5, cm, 08/04/22 8:48:00 EDT, Height, 59.5, kg, 06/03/22 14:32:00 EDT, Dry Weight Start Date: 02/15/23 Status: Ordered furosemide 40 mg oral tablet 1, tablet, By Mouth, Daily, # 30 tablet, Refills 5, Maintenance, 09/06/23 9:51:00 EDT, Route to Pharmacy Electronically, [facility] STORE 30592, 157.5, cm, 08/16/23 12:48:00 EDT, Height, 59.5, kg, 06/03/22 14:32:00 EDT, Dry Weight Start Date: 09/06/23 Status: Ordered lisinopril 10 mg oral tablet 1, tablet, By Mouth, 2 times a day, # 180 tablet, Refills 3, Maintenance, 01/25/23 11:53:00 EST, Route to Pharmacy Electronically, [facility] STORE 91308, 157.5, cm, 08/04/22 8:48:00 EDT, Height, 59.5, [...] Refills, Maintenance, 02/11/23 7:48:00 EST, [facility], 157.5, cm, 08/04/22 8:48:00 EDT, Height, 59.5, kg, 06/03/22 14:32:00 EDT, Dry Weight Start Date: 02/11/23 Status: Ordered Vitamin D3 1000 intl units oral capsule 1 capsule, By Mouth, Daily, # 30 capsule, 5 Refills, Maintenance, 08/30/23 14:04:00 EDT, [facility] 466[facility], 157.5, cm, 08/16/23 12:48:00 EDT, Height, 59.5, [...] 4colo 2004 nl, rpt 2013 5MI 2019 73685; no repeat due to age 7restarted HCTZ; will monitor 8holding hctz ;recheck 9Per discharge note 03/05/21: Long-standing schizoaffective disorder, bipolar type. 10Antibody positive 11thought to be medication related by neurology Social History Social History Type Response Smoking Status Never (less than 100 in lifetime) entered on: 12/02/20 Sex Patient Care team information Care Team Personnel Name: Zabrina Prince RN Position: [facility] RN Member Role: Primary Care Nurse Name: Carley Vazquez RN Position: [facility] RN Member Role: Primary Care Nurse Name: Geetha MAYBERRY, Annia Gomes Position: [facility] Associate Professional Member Role: Primary Care Nurse Name: Garrison Beatty MD Position: [facility] Physician - Primary Care Member Role: PCP Address: Address: [address] [place] [phone]- [place] Name: Ra GOLD, David Position: [facility] Renal MD Member Role: Lifetime Consulting Physician Address: Address: [address] [place] [address] [address] [facility] [place] [address]- [place] Name: Melissa Ugarte RN Position: [facility] RN Member Role: Primary Care Nurse Care Team Related Persons Name: LIVIA MAXWELL Address: home [address] [place] [id number] Name: DINA MAXWELL Address: home [address] [place] [phone]
--- OUTSIDE RECORDS SUMMARY | 2024-01-05 23:00 | XMS_ITS | Continuity of Care Document ---
Author Organization [facility] Address [address] [place] [address]- Care Team Providers Care Repairer Engine Production Name Role Phone Garrison Beatty MD Primary Care Physician [facility] [facility] Date([place]): 05/31/19 - 08/31/19 [facility] [address] [place] [address]- [facility] Attending Physician: Robbie Meyer MD Admitting Physician: Robbie Meyer MD Referring Physician: Garrison Beatty MD Allergies, [...] Vaccine (oldterm) 03/08/00 Given 1Result Comment: [12/09/2017] [id number] 2Result Comment: [04/15/2015 Uncharted] Pt had influenza vaccine 12/12/15- 3Admin Note: PT had the flu shot done at [facility] Flu clinic 4Admin Note: GIVEN IN [facility] 5Admin Note: [facility] 6Admin Note: [place] 7Admin Note: GIVEN [...] 08/21/19 14:11:00 EDT, Route to Pharmacy Electronically, [facility]/pharmacy #[id number], 155.5, cm, 08/21/19 13:49:00 EDT, Height [...] tablet, 11 Refills, Maintenance, 08/21/19 14:11:00 EDT, [facility]/pharmacy #7111, 155.5, cm, 08/21/19 13:49:00 EDT, Height [...] colo 2008 4colo 2003 nl, rpt 2013 70862; no repeat due to age 6restarted HCTZ; will monitor 7holding hctz ;recheck 8Antibody positive 9thought to be medication related by neurology Social History Social History Type Response Smoking Status Never smoker; Tobacc o user in household: No entered on: 07/05/14 Sex
--- OUTSIDE RECORDS SUMMARY | 2024-01-05 23:00 | XMS_ITS | Continuity of Care Document ---
Author Organization [facility] Address [address] [place] [address]- Care Team Providers Care Orthopedic Tech Name Role Phone Garrison Beatty MD Primary Care Physician [phone] Encounter [facility] Date(s): 02/05/22 - 03/07/22 [facility] [address] [place] [address]- Attending Physician: Renetta Strickland Admitting Physician: AdmRenetta [...] influenza virus vaccine, inactivated 2 12/08/17 Gi ycn influenza virus vaccine, inactivated 11/30/16 Give n [...] 23-valent vaccine 6 07/29/21 Given SARS-CoV-2 mRNA (dotvktz-ghil-hrfch) vax 06/21/21 Recorded SARS-CoV-2 (COVID-19) mRNA BNT-162b2 [...] (oldterm) 03/08/00 Given 1Result Comment: [facility]# [id number] 2Result Comment: [12/09/2017] [id number] 3Result Comment: [04/15/2015 Uncharted] Pt had influenza vaccine 12/12/15- 4Admin Note: PT had the flu shot done at [facility] Flu clinic 5Admin Note: GIVEN IN CL[facility]IC [facility] 6Result Comment: [facility]# [id number] 7Admin Note: [employer] [facility] 8Admin Note: [employer] [facility] 9Admin Note: GIVEN AT OUTSIDE CLINIC 10Admin Note: per pt rcvd elsewhere Medications amLODIPine 5 mg oral tablet See Instructions, TAKE 1 TABLET BY MOUTH EVERY DAY, # 30 tablet, 5 Refills, Maintenance, 01/01/22 15:18:00 EDT, [facility] STORE 87469, 158, cm, 11/27/21 8:19:00 EDT, Height, 63, [...] 02/02/22 16:34:00 EST, [id number] Partial fill upon patient request if the prescription is for a schedule II... Start Date: 02/02/22 Status: Ordered clopidogrel 75 mg oral tablet 1, tablet, By Mouth, Daily, # 30 tablet, Refills 0, Maintenance, 11/06/21 16:29:00 EDT, Route to Pharmacy Electronically, [facility] 56331, 158, cm, 10/02/21 9:27:00 EDT, Height, 63, kg, 07/28/21 1:38:00 EDT, Dry Weight Start Date: 11/06/21 Status: Ordered donepezil 5 mg oral tablet See Instructions, TAKE 1 TABLET BY MOUTH AT BEDTIME, # 30 tablet, Refills 5, Tot. Refills 5, 01/23/22 15:56:00 EST, Instructions Replace Required Details, [id number], 158, cm, 01/21/22 13:27:00 EST, Height, 63... Start Date: 01/23/22 Status: Ordered Lasix 40 mg oral tablet 40 mg, 1, tablet, By Mouth, Daily, # 30 tablet, Refills 11, Tot. Refills 11, Maintenance, 03/12/21 16:08:00 EST, [id number], Partial fill upon patient request if the prescription is for a schedule II opioid dr... Start Date: 03/12/21 Stop Date: 03/07/22 Status: Ordered lisinopril 10 mg oral tablet 10 mg, 1, tablet, By Mouth, 2 times a day, # 180 tablet, Refills 3, Tot. Refills 3, Maintenance, 03/07/22 16:09:00 EST, [id number] Partial fill upon patientrequest if [...] Refills, Maintenance, 01/23/22 15:28:00 EST, ER Capsule, [facility]/pharmacy #7111, Partial fill upon patient [...] 4colo 2004 nl, rpt 2013 5MI 2019 66883; no repeat due to age 7restarted HCTZ; will monitor 8holding hctz ;recheck 9Per discharge note 03/05/21: Long-standing schizoaffective disorder, bipolar type. 10Antibody positive 11thought to be medication related by neurology Social History Social History Type Response Smoking Status Never (less than 100 in lifetime) entered on: 12/02/20 Sex Patient Care team information Care Team Personnel Name: Carley Vazquez RN Position: [facility] RN Member Role: Primary Care Nurse Name: Geetha MAYBERRY, Annia Gomes Position: [facility] Associate Professional Member Role: Primary Care Nurse Address: Address: [address] [place] [address]- [place] Name: Garrison Beatty MD Position: [facility] Primary Care Physician Member Role: PCP Address: Address: [address] [place] [address]- [place] Name: David Knapp MD Position: [facility] Renal MD Member Role: Lifetime Consulting Physician Address: Address: [address] [place] [address] [address] [facility] [place] [place] [address]- [place] Name: Zabrina Reyes RN Position: S RN Member Role: Primary Care Nurse Name: Melissa Ugarte RN Position: [facility] RN Member Role: Primary Care Nurse Care Team Related Persons Name: LIVIA MAXWELL Address: [address] [place] [address] Name: DINA MAXWELL Address: home [address] [place] [address]
--- OUTSIDE RECORDS SUMMARY | 2024-01-05 23:00 | XMS_ITS | Continuity of Care Document ---
Author Organization [facility] ter Address [address] [place] [address]- Care Team Providers Care Precision Machine Operator Name Role Phone Jaci GOLD, Garrison Swan Primary Care Physician [phone] Encounter [facility] Date(s): 07/18/20 - 07/19/[address] [address]- Encounter Diagnosis Postural dizziness with presyncope(Final) - 07/18/20 Discharge Disposition: A-D/C Home Attending Physician: Anusha Romero MD Admitting Physician: Lauro Archibald MD Referring Physician: Not on Staff, Referring [...] Vaccine (oldterm) 03/08/00 Given 1Result Comment: [12/09/2017] [id number] 2Result Comment: [04/15/2015 Uncharted] Pt had influenza vaccine 12/12/15- 3Admin Note: PT had the flu shot done at [facility] Flu clinic 4Admin Note: GIVEN IN CL[facility]IC [facility] 5Admin Note: [facility] 6Admin Note: [facility] 7Admin Note: GIVEN AT OUTSIDE CLINIC 8Admin Note: per pt rcvd elsewhere Medications carvedilol 3.125 mg oral tablet 3.125 mg, Tablet, By Mouth, 07/19/20 9:00:00 EDT Start Date: 07/19/20 Stop Date: 07/19/20 Status: Completed carvedilol 3.125 mg oral tablet See Instructions, TAKE 1 TABLET BY MOUTH TWICE A DAY, # 60 tablet, Refills 11, Tot. Refills 11, Maintenance, Instructions Replace Required Details, Route to Pharmacy Electronically, [facility] 41879, 160, cm, 07/05/20 7:47:00 EDT, Height, 62, kg, 02/26... Start Date: 07/05/20 Status: Ordered Lasix 40 mg oral tablet 40 mg, 1, tablet, By Mouth, Daily, # 30 tablet, Refills 11, Tot. Refills 11, Maintenance, 04/29/20 9:22:00 EST, Route to Pharmacy Electronically, [facility]/pharmacy #[id number], Partial fill upon patient requestif the prescription [...] 03/20/20 10:44:00 EST, Route to Pharmacy Electronically, [facility]/pharmacy #[id number], Partial fill upon patient request if the prescription is for a schedule II opioid drug... Start Date: 03/20/20 Status: Ordered potassium chloride 10 mEq oral tablet, extended release 2 tablet = 20 mEq, By Mouth, Daily in AM, # 60 tablet, 5 Refills, Maintenance, 04/29/20 9:23:00 EST, ER Tablet, [facility]/pharmacy #7111, Partial fill upon patient request [...] 4colo 2004 nl, rpt 2013 5MI 2019 05351; no repeat due to age 7restarted HCTZ; will monitor 8holding hctz ;recheck 9Antibody positive 10thought to be medication related by neurology Results Radiology Reports * Exam Date Time Procedure Performing Provider Status 07/18/20 4:26 PM Chest 2 Views Frontal and Lat Yuval Bal; Auth (Verified) Notes: (Chest 2 Views Frontal and Lat) Reason For Exam: Shortness of Breath RESULT: Chest 2 Views Frontal and Lat Chest 2 Views Frontal and Lat Hx of Present Illness: Patient reports dizziness x 1 week.; Reason: Shortness of Breath; Clinical Question(s): CHF COMPARISON: Multiple priors, most recent dated 03/03/2020 FINDINGS: LINES AND TUBES: Few EKG leads overlie the chest wall. LUNGS AND PLEURA: Trace left pleural effusion versus thickening. No right pleural effusion. No focal consolidation. No evidence of pulmonary edema. No pleural effusion. No pneumothorax. HEART, MEDIASTINUM AND CHARLIE: Heart is normal in size. Patient is post median sternotomy and CABG. Normal upper mediastinal and hilar contour. BONES AND SOFT TISSUES: No acute abnormality. IMPRESSION: Trace left pleural effusion versus thickening. No radiographic evidence of pulmonary edema or consolidation. WSN: [id number] Ordering Physician: Isis Vega Dictated By: Mine Santana MD Dictated Date/Time: 07/18/20 4:32 pm Reviewed By: Mine Santana MD Signed By: Mine Santana MD Signed Date/Time: 07/18/20 4:32 pm Transcribed By: PENNY Transcribed Date/Time: 07/18/20 4:30 pm Vital Signs Most recent to oldest [Reference Range]: 1 2 3 Weight 56 kg (07/18/20 9:09 PM) 56.5 kg (07/18/20 3:54 PM) 56.5 kg (07/18/20 3:19 PM) Oxygen Saturation [94-100 %] 100 % (07/19/20 7:24 AM) 99 % (07/19/20 4:36 AM) 100 % (07/18/20 10:57 PM) Pulse Rate [55-90 bpm] 66 bpm (07/19/20 8:04 AM) 66 bpm (07/19/20 7:24 AM) 62 bpm (07/19/20 4:36 AM) Blood Pressure [90-138/55-84 mm Hg] 151/75mm Hg *H* (07/19/20 8:04 AM) 151/75mm Hg *H* (07/19/20 7:24 AM) 129/67mm Hg (07/19/20 4:36 AM) Respiratory Rate [16-30 br/min] 19 br/min (07/19/20 8:12 AM) 20 br/min (07/19/20 7:24 AM) 18 br/min (07/19/20 4:36 AM) Temperature [96.8-100.4 DegF] 98.2 DegF (07/19/20 7:24 AM) 98.2 DegF (07/19/20 4:36 AM) 98.1 DegF (07/18/20 10:57 PM) Liters per Minute 0 L/min (07/18/20 2:49 PM) Mode of Delivery (Oxygen) Room air (07/19/20 7:24 AM) Room air (07/19/20 4:36 AM) Room air (07/18/20 10:57 PM) Blood pressure sites Arm, right (07/19/20 7:24 AM) Arm, right (07/19/20 4:36 AM) Arm, right (07/18/20 10:57 PM) Temperature Route Oral (07/19/20 7:24 AM) Oral (07/19/20 4:36 AM) Oral (07/18/20 10:57 PM) Dry Weight 56.5 kg (07/18/20 3:54 PM) 56.5 kg (07/18/20 3:19 PM) 56.5 kg (07/18/20 2:49 PM) Weight Obtained Via Bed scale (07/18/20 9:09 PM) Standing scale (07/18/20 2:49 PM) Dry Weight Obtained Via Standing scale (07/18/20 2:49 PM) Social History Social History Type Response Smoking Status Never smoker; Tobacc o user in household: No entered on: 07/05/14 Sex
--- OUTSIDE RECORDS SUMMARY | 2024-01-05 23:00 | XMS_ITS | Continuity of Care Document ---
Author Organization [facility] Address [address] [place] [address]- Care Team Providers Care Solid Waste Disposal Manager Name Role Phone Garrison Beatty MD Primary Care Physician [phone] Encounter [facility] Date(s): 04/28/22 - 05/28/22 [facility] [address] [place] [address]- Allergies, Adverse Reactions, Alerts Substance Reaction Severity Status cephalexin Active nitrofurantoin Active predniSONE SEVERE H/A Active valsartan 1 Active statins MYALGIAS Active sulfADIAZINE Ciprofloxacin Active Macrobid Active 1dizziness Immunizations Given and [...] 23-valent vaccine 6 07/29/21 Given SARS-CoV-2 mRNA (pmuynob-bxka-xjkch) vax 06/21/21 Recorded SARS-CoV-2 (COVID-19) mRNA BNT-162b2 [...] Toxoid Vaccine (oldterm) 03/08/00 Given 1Result Comment: [facility]# [id number] 2Result Comment: [12/09/2017] [id number] 3Result Comment: [04/15/2015 Uncharted] Pt had influenza vaccine 12/12/15- 4Admin Note: PT had the flu shot done at [facility] Flu clinic 5Admin Note: GIVEN IN CL[facility]IC [facility] 6Result Comment: [facility]# [id number] 7Admin Note: [facility] 8Admin Note: [facility] 9Admin Note: GIVEN AT OUTSIDE CLINIC 10Admin Note: per pt rcvd elsewhere Medications amLODIPine 5 mg oral tablet 1 tablet, By Mouth, Daily, # 30 tablet, 5 Refills, Maintenance, 04/17/22 19:41:00 EST, [facility] STORE 90434, 158, cm, 02/27/22 13:27:00 EST, Height, 63, kg, 07/28/21 1:38:00 EDT, Dry Weight Start Date: 04/17/22 Status: Ordered aspirin 81 mg oral delayed release tablet 81 mg, 1, tablet, By Mouth, Daily, # 30 tablet, Refills 5, Tot. Refills 5, Maintenance, 03/26/22 11:58:00 EST, Route to Pharmacy Electronically, [facility]/pharmacy #[id number], Partial fill upon patient request if the prescription is for a schedule II opioid drug... Start Date: 03/26/22 Status: Ordered carvedilol 6.25 mg oral tablet 6.25 mg, 1, tablet, By Mouth, 2 times a day, # 180 tablet, Refills 3, Tot. Refills 3, Maintenance, 02/02/22 16:34:00 EST, Route to Pharmacy Electronically, [facility]/pharmacy #[id number], Partial fill upon patient request if the prescription is for a schedule II... Start Date: 02/02/22 Status: Ordered clopidogrel 75 mg oral tablet 1, tablet, By Mouth, Daily, # 30 tablet, Refills 5, Tot. Refills 5, Maintenance, 03/26/22 11:55:00 EST, Route to Pharmacy Electronically, [facility]/pharmacy #7111, 158, cm, 02/27/22 13:27:00 EST, Height, 63, kg, 07/28/21 1:38:00 EDT, Dry Weight Start Date: 03/26/22 Status: Ordered Daily Brielle oral tablet 1 tablet, By Mouth, Daily, # 30 tablet, 11 Refills, Maintenance, 03/18/22 11:57:00 EST, [facility], 30, TAKE 1 TABLET BY MOUTH EVERY DAY, 158, cm, 02/27/22 13:27:00 EST, Height, 63, kg, :38:00 EDT, Dry Weight Start Date: 03/18/22 Status: Ordered donepezil 5 mg oral tablet 1, tablet, By Mouth, Daily at bedtime, # 30 tablet, Refills 2, Maintenance, 05/25/22 16:50:00 EDT, Route to Pharmacy Electronically, [facility], 158, cm, 02/27/22 13:27:00 EST, Height, 63, kg, 07/28/21 1:38:00 EDT, Dry Weight Start Date: 05/25/22 Status: Ordered High Potency Vitamin D3 25 mcg (1000 intl units) oral capsule 1 capsule = 25 mcg, By Mouth, Daily, # 30 capsule, 5 Refills, Maintenance, 03/26/22 11:54:00 EST, [facility]/pharmacy #[id number], Partial fill upon patient request if the prescription is for a schedule II opioiddrug., 158, cm, 02/27/22 13:27:00 EST, Height, 63,... Start Date: 03/26/22 Status: Ordered Lasix 40 mg oral tablet 40 mg, 1, tablet, By Mouth, Daily, # 30 tablet, Refills 5, Tot. Refills 5, Maintenance, 03/26/22 11:53:00 EST, Route to Pharmacy Electronically, [facility]/pharmacy #[id number], Partial fill upon patient request if the prescription is for a schedule II opioid drug... Start Date: 03/26/22 Stop Date: 09/22/22 Status: Ordered lisinopril 10 mg oral tablet 10 mg, 1, tablet, By Mouth, 2 times a day, # 180 tablet, Refills 3, Tot. Refills 3, Maintenance, 03/07/22 16:09:00 EST, Route to Pharmacy Electronically, [facility]/pharmacy #[id number], Partial fill upon patientrequest [...] Refills, Maintenance, 01/23/22 15:28:00 EST, ER Capsule, [facility]/pharmacy #7111, Partial fill [...] 4colo 2004 nl, rpt 2013 5MI 2019 [address]; no repeat due to age 7restarted HCTZ; will monitor 8holding hctz ;recheck 9Per discharge note 03/05/21: Long-standing schizoaffective disorder, bipolar type. 10Antibody positive 11thought to be medication related by neurology Social History Social History Type Response Smoking Status Never (less than 100 in lifetime) entered on: 12/02/20 Sex Patient Care team information Care Team Personnel Name: Carley Vazquez RN Position: [facility] RN Member Role: Primary Care Nurse Name: Geetha MAYBERRY, Annia Gomes Position: [facility] Associate Professional Member Role: Primary Care Nurse Address: Address: [address] [place] [address]- [place] Name: Garrison Beatty MD Position: [facility] Primary Care Physician Member Role: PCP Address: Address: [address] [place] [address]- [place] Name: Ra GOLD, David Position: [facility] Renal MD Member Role: Lifetime Consulting Physician Address: Address: [address] [facility] [address] [facility] [place] [address]- Name: Zabrina Reyes RN Position: S RN Member Role: Primary Care Nurse Name: Melissa Ugarte RN Position: [facility] RN Member Role: Primary Care Nurse Care Team Related Persons Name: LIVIA MAXWELL Address: [address] [address] Name: DINA MAXWELL Address: [address] [address]
--- OUTSIDE RECORDS SUMMARY | 2024-01-05 23:00 | XMS_ITS | Continuity of Care Document ---
Author Organization [facility] Address [address] [place] [address]- Care Team Providers Care Monotype Keyboard Operator Name Role Phone Garrison Beatty MD Primary Care Physician Encounter [facility] [place] Date(s): 05/31/19 - 08/23/19 [facility] [address] [place] [address] Attending Physician: Darryn Ledezma MD Admitting Physician: [...] Vaccine (oldterm) 03/08/00 Given 1Result Comment: [12/09/2017] [id number] 2Result Comment: [04/15/2015 Uncharted] Pt had influenza vaccine 12/12/15- 3Admin Note: PT had the flu shot done at [facility] Flu clinic 4Admin Note: GIVEN IN CLINIC [facility] 5Admin Note: [facility] 6Admin Note: [facility] 7Admin Note: GIVEN AT OUTSIDE CLINIC 8Admin [...] 08/21/19 14:11:00 EDT, Route to Pharmacy Electronically, [facility]/pharmacy #[id number], 155.5, cm, 08/21/19 13:49:00 EDT, [...] tablet, 11 Refills, Maintenance, 08/21/19 14:11:00 EDT, [facility]/pharmacy #7111, 155.5, cm, 08/21/19 13:49:00 EDT, [...] colo 2008 4colo 2003 nl, rpt 2013 [address]2819; no repeat due to age 6restarted HCTZ; will monitor 7holding hctz ;recheck 8Antibody positive 9thought to be medication related by neurology Social History Social History Type Response Smoking Status Never smoker; Tobacc o user in household: No entered on: 07/05/14 Sex
--- OUTSIDE RECORDS SUMMARY | 2024-01-05 23:00 | XMS_ITS | Continuity of Care Document ---
Author Organization [facility] Cayden Ontiveros Yon lt Address [address] [place] [address]- Care Team Providers Care Dermatology Specialist Name Role Phone Garrison Beatty MD Primary Care Physician Encounter [facility] Date(s): 05/26/19 - 06/05/19 [facility] Cayden Andradeley Adult [address] [place] [address]- [facility] Attending Physician: Admtr, Ar8 Allergies, Adverse Reactions, [...] Vaccine (oldterm) 03/08/00 Given 1Result Comment: [12/09/2017] [id number] 2Result Comment: [04/15/2015 Uncharted] Pt had influenza vaccine 12/12/15- 3Admin Note: PT had the flu shot done at [facility] Flu clinic 4Admin Note: GIVEN IN CLINIC [facility] 5Admin Note: [facility] 6Admin Note: [facility] 7Admin Note: GIVEN AT OUTSIDE CLINIC 8Admin Note: per pt rcvd elsewhere Medications amoxicillin 500 mg oral capsule 1 capsule = 500 mg, By Mouth, 3 times a day, for 10 days, # 30 capsule, 0 Refills, Acute 06/08/19 13:04:00 EDT, 05/29/19 13:04:00 EDT, Capsule, [facility] # 302, 155.5, cm, 02/17/19 10:28:00 [...] 06/02/19 12:46:00 EDT, Route to Pharmacy Electronically, [facility] # 302, 155.5, cm, 02/17/19 10:28:00 [...] colo 2008 4colo 2003 nl, rpt 2013 36211; no repeat due to age 6restarted HCTZ; will monitor 7holding hctz ;recheck 8Antibody positive 9thought to be medication related by neurology Social History Social History Type Response Smoking Status Never smoker; Tobacc o user in household: No entered on: 07/05/14 Sex
--- OUTSIDE RECORDS SUMMARY | 2024-01-05 23:00 | XMS_ITS | Continuity of Care Document ---
Author Organization [facility] Yon lt Address [address] [place] [address]- Care Team Providers Care Mechanical Unit Repairer Name Role Phone Jaci GOLD, Garrison Swan Primary Care Physician [facility] Date[facility]s): 01/02/22 - 02/01/22 [facility] Adult [address] [place] [address]- Allergies, Adverse Reactions, Alerts Substance Reaction Severity [...] 23-valent vaccine 6 07/29/21 Given SARS-CoV-2 mRNA (spxgdgi-dcrk-ykzci) vax 06/21/21 Recorded SARS-CoV-2 (COVID-19) mRNA BNT-162b2 [...] Toxoid Vaccine (oldterm) 03/08/00 Given 1Result Comment: [facility]# [id number] 2Result Comment: [12/09/2017] [id number] 3Result Comment: [04/15/2015 Uncharted] Pt had influenza vaccine 12/12/15- 4Admin Note: PT had the flu shot done at [facility] Flu clinic 5Admin Note: GIVEN IN [facility] 6Result Comment: [facility]# [id number] 7Admin Note: [facility] [place]Admin Note: [facility] [place]Admin Note: GIVEN AT OUTSIDE CLINIC 10Admin Note: per pt rcvd elsewhere Medications amLODIPine 5 mg oral tablet See Instructions, TAKE 1 TABLET BY MOUTH EVERY DAY, # 30 tablet, 5 Refills, Maintenance, 01/01/22 15:18:00 EDT, [facility] STORE 51416, 158, cm, 11/27/21 8:19:00 EDT, Height, 63, [...] 10/13/21 14:45:00 EDT, [id number] Partial fill upon patient request if the prescription is for a schedule II o... Start Date: 10/13/21 Status: Ordered clopidogrel 75 mg oral tablet 1, tablet, By Mouth, Daily, # 30 tablet, Refills 0, Maintenance, 11/06/21 16:29:00 EDT, Route to Pharmacy Electronically, [facility] ST[facility] 71892, 158, cm, 10/02/21 9:27:00 EDT, Height, 63, kg, 07/28/21 1:38:00 EDT, Dry Weight Start Date: 11/06/21 Status: Ordered donepezil 5 mg oral tablet See Instructions, TAKE 1 TABLET BY MOUTH AT BEDTIME, # 30 tablet, Refills 5, Tot. Refills 5, 01/23/22 15:56:00 EST, Instructions Replace Required Details, [id number], 158, cm, 01/21/22 13:27:00 EST, Height, 63... Start Date: 01/23/22 Status: Ordered Lasix 40 mg oral tablet 40 mg, 1, tablet, By Mouth, Daily, # 30 tablet, Refills 11, Tot. Refills 11, Maintenance, 03/12/21 16:08:00 EST, [facility], [id number], Partial fill upon patient request if the prescription is for a schedule II opioid dr... Start Date: 03/12/21 Stop Date: 03/07/22 Status: Ordered lisinopril 10 mg oral tablet 10 mg, 1, tablet, By Mouth, 2 times a day, # 180 tablet, Refills 3, Tot. Refills 3, Maintenance, 03/07/22 16:09:00 EST, [facility], [id number], Partial fill upon patientrequest if the prescription is for a schedule II op... Start Date: 03/07/22 Status: Ordered magnesium oxide 400 mg oral tablet 1 tablet = 400 mg, By Mouth, Daily, for 30 days, # 30 tablet, 11 Refills, Acute 03/07/22 16:11:00 EST, 03/12/21 16:11:00 EST, Tablet, [facility]/pharmacy #7111, Partial fill upon patient [...] Refills, Maintenance, 01/23/22 15:28:00 EST, ER Capsule, [facility]/pharmacy #7111, Partial fill upon patient [...] 4colo 2004 nl, rpt 2013 5MI 2019 28115; no repeat due to age 7restarted HCTZ; [...] Name: Annia Iniguez NP Position: [facility] Associate Professional Member Role: Primary Care Nurse Address: Address: [address] [place] [address]- [place] Name: Garrison Beatty MD Position: [facility] Primary Care Physician Member Role: PCP Address: Address: [address] [place] [address]- [place] Name: David Knapp MD Position: [facility] Renal MD Member Role: Lifetime Consulting Physician Address: Address: [address] [facility] [address] [facility] [place] [address]- [place] Name: Zabrina Reyes RN Position: [facility] RN Member Role: Primary Care Nurse Name: Melissa Ugarte RN Position: [facility] RN Member Role: Primary Care Nurse Care Team Related Persons Name: LIVIA MAXWELL Address: [address] [address] Name: DINA MAXWELL Address: [address] [address]
--- OUTSIDE RECORDS SUMMARY | 2024-01-05 23:00 | XMS_ITS | Continuity of Care Document ---
Author Organization [facility] Yon lt Address [address] [place] [address]- Care Team Providers Care Hand Mica Plate Layer Name Role Phone Garrison Beatty MD Primary Care Physician Encounter [facility] Date(s): 08/30/20 - 09/06/20 [facility] Adult [address] [place] [address]- Encounter Diagnosis CAD (coronary artery disease)(Discharge Diagnosis) - 08/30/20 Tremor of unknown origin(Discharge Diagnosis) - 08/30/20 Benign Essential Hypertension(Discharge Diagnosis) - 08/30/20 Depression, major, recurrent, moderate(Discharge Diagnosis) - 08/30/20 Elevated brain natriuretic peptide (BNP) level(Discharge Diagnosis) - 08/30/20 Attending Physician: Garrison Beatty MD Allergies, Adverse [...] Vaccine (oldterm) 03/08/00 Given 1Result Comment: [12/09/2017] [id number] 2Result Comment: [04/15/2015 Uncharted] Pt had influenza vaccine 12/12/15- 3Admin Note: PT had the flu shot done at [facility] Flu clinic 4Admin Note: GIVEN IN [facility] 5Admin Note: [facility] 6Admin Note: [facility] 7Admin Note: GIVEN AT OUTSIDE CLINIC 8Admin Note: per pt rcvd elsewhere Medications carvedilol 6.25 mg oral tablet 6.25 mg, 1, tablet, By Mouth, 2 times a day, # 60 tablet, Refills 11, Tot. Refills 11, Maintenance,08/07/20 13:57:00 EDT, [facility] Pharmacy [facility], [facility] [...] 09/03/20 7:05:00 EDT, Route to Pharmacy Electronically, [facility]/pharmacy #[id number], 160, cm, 06... Start Date: 09/03/20 Stop Date: 09/10/20 Status: Ordered Lasix 40 mg oral tablet 40 mg, 1, tablet, By Mouth, Daily, # 30 tablet, Refills 11, Tot. Refills 11, Maintenance, 04/29/20 9:22:00 EST, Route to Pharmacy Electronically, [facility]/pharmacy #[id number], Partial fill upon patient requestif the prescription is for a schedule II opioid symone... Start Date: 04/29/20 Stop Date: 04/24/21 Status: Ordered losartan 25 mg oral tablet 0.5, By Mouth, Daily, # 15 tablet, Refills 3, Tot. Refills 3, Maintenance, 08/29/20 13:46:00 EDT, [facility] [...] 4colo 2003 nl, rpt 2013 5MI 2019 57593; no repeat due to age 7restarted HCTZ; will monitor 8holding hctz ;recheck 9Antibody positive 10thought to be medication related by neurology Diagnosis Diagnosis Type Effective Dates Health Status Clinical Service Informant CAD (coronary artery disease) Discharge Diagnosis 08/30/20 Tremor of unknown origin Discharge Diagnosis 08/30/20 Benign Essential Hypertension Discharge Diagnosis 08/30/20 Depression, major, recurrent, moderate Discharge Diagnosis 08/30/20 Elevated brain natriuretic peptide (BNP) level Discharge Diagnosis 08/30/20 Vital Signs Most recent to oldest [Reference Range]: 1 Height 160 cm (08/30/20 1:24 PM) Weight 56.2 kg (08/30/20 1:24 PM) Oxygen Saturation [94-100 %] 98 % (08/30/20 1:24 PM) Pulse Rate [55-90 bpm] 71 bpm (08/30/20 1:24 PM) Body Mass Index [18.5-24.99] 21.95 (08/30/20 1:24 PM) Blood Pressure [90-138/55-84 mm Hg] 128/ 66mm Hg (08/30/20 1:24 PM) Mode of Delivery (Oxygen) Room air (08/30/20 1:24 PM) Blood pressure sites Arm, left (08/30/20 1:24 PM) Weight Obtained Via Standing scale (08/30/20 1:24 PM) Social History Social History Type Response Smoking Status Never smoker; Tobacc o user in household: No entered on: 07/05/14 Sex
--- OUTSIDE RECORDS SUMMARY | 2024-01-05 23:00 | XMS_ITS | Continuity of Care Document ---
Author Organization [facility] Address [address] [place] [address]- Care Team Providers Care Records Analysis Manager Name Role Phone Garrison Beatty MD Primary Care Physician [facility] Date[facility]): 07/24/20 - 08/23/20 [facility] [address] [place] [address]- Allergies, Adverse Reactions, Alerts Substance Reaction Severity [...] Vaccine (oldterm) 03/08/00 Given 1Result Comment: [12/09/2017] [id number] 2Result Comment: [04/15/2015 Uncharted] Pt had influenza vaccine 12/12/15- 3Admin Note: PT had the flu shot done at [facility] Flu clinic 4Admin Note: GIVEN IN CL[facility]IC [facility] 5Admin Note: [facility] 6Admin Note: [facility] [facility] 7Admin Note: GIVEN AT OUTSIDE CLINIC 8Admin Note: per pt rcvd elsewhere Medications carvedilol 6.25 mg oral tablet 6.25 mg, 1, tablet, By Mouth, 2 times a day, # 60 tablet, Refills 11, Tot. Refills 11, Maintenance,08/07/20 13:57:00 EDT, [facility], [facility] Refills, Maintenance, 07/24/20 12:45:00EDT, Capsule, [facility]/pharmacy #[id number], [...] [facility]/pharmacy [id number], Partial fill upon patient requestif [...] 5 Refills, Maintenance, 08/09/20 13:00:00 EDT, Tablet, [facility]/pharmacy #[id number], Partial [...] 4colo 2003 nl, rpt 2013 5MI 2019 [address]; no repeat due to age 7restarted HCTZ; will monitor 8holding hctz ;recheck 9Antibody positive 10thought to be medication related by neurology Social History Social History Type Response Smoking Status Never smoker; Tobacc o user in household: No entered on: 07/05/14 Sex
--- OUTSIDE RECORDS SUMMARY | 2024-01-05 23:00 | XMS_ITS | Continuity of Care Document ---
Author Organization [facility] Address Unknown Care Team Providers Care Tin Assorter Name Role Phone Garrison Beatty MD Primary Care Physician [phone] [place] [facility] [place] 08/14/21 [facility] Allergies, Adverse Reactions, Alerts Substance Reaction Severity Status cephalexin Active nitrofurantoin Active sulfADIAZINE Ciprofloxacin Active predniSONE SEVERE H/A Active valsartan 1 Active Macrobid Active statins MYALGIAS Active 1dizziness Immunizations Given and Recorded Vaccine Date Status Refusal Reason pneumococcal 23-valent vaccine 1 07/29/21 Given SARS-CoV-2 mRNA (clmsxke-ogmc-ohovo) vax 06/21/21 Recorded influenza virus vaccine, inactivated [...] Toxoid Vaccine (oldterm) 03/08/00 Given 1Result Comment: [facility] [place]# [id number] 2Result Comment: [12/09/2017] [id number] 3Result Comment: [04/15/2015 Uncharted] Pt had influenza vaccine 12/12/15- 4Admin Note: PT had the flu shot done at [facility] Flu clinic 5Admin Note: GIVEN IN [facility] 6Admin Note: [facility] 7Admin Note: [facility] [place] 8Admin Note: GIVEN AT OUTSIDE CLINIC 9Admin Note: per pt rcvd elsewhere Medications amLODIPine 5 mg oral tablet 5 mg, 1, tablet, By Mouth, Daily, # 30 tablet, Refills 11, Tot. Refills 11, Maintenance, 03/12/21 16:13:00 EST, Route to Pharmacy Electronically, [facility]/pharmacy #[id number], Partial fill upon patient requestif the prescription is for a schedule II opioid symone... Start Date: 03/12/21 Status: Ordered Aricept 5 mg oral tablet 5 mg, 1, tablet, By Mouth, Daily at bedtime, # 30 tablet, Refills 11, Tot. Refills 11, Maintenance,03/12/21 16:10:00 EST, Route to Pharmacy Electronically, [facility]/pharmacy #[id number], Partial fill upon [...] 06/26/21 10:43:00 EDT, [id number] Partial[facility] upon patient request if the prescription is fo... Start Date: 06/26/21 Status: Ordered clopidogrel 75 mg oral tablet 1, tablet, By Mouth, Daily, # 30 tablet, Refills 11, Tot. Refills 11, Maintenance, 03/12/21 16:09:00 EST, [id number], 157, cm, 03/12/21 13:26:00 EST, Height,60, kg, 01/20/21 16:03:00 EST, Dry Weight Start Date: 03/12/21 Status: Ordered Lasix 40 mg oral tablet 40 mg, 1, tablet, By Mouth, Daily, # 30 tablet, Refills 11, Tot. Refills 11, Maintenance, 03/12/21 16:08:00 EST, [id number] Partial fill upon patient request if the prescription is for a schedule II opioid dr... Start Date: 03/12/21 Stop Date: 03/07/22 Status: Ordered lisinopril 10 mg oral tablet 10 mg, 1, tablet, By Mouth, 2 times a day, # 60 tablet, Refills 11, Tot. Refills 11, Maintenance, 03/12/21 16:09:00 EST, [id number] Partial fill upon patient request if the prescription is for a schedule II o... Start Date: 03/12/21 Stop Date: 03/07/22 Status: Ordered magnesium oxide 400 mg oral tablet 1 tablet = 400 mg, By Mouth, Daily, for 30 days, # 30 tablet, 11 Refills, Acute 03/07/22 16:11:00 EST, 03/12/21 16:11:00 EST, Tablet, [facility]/pharmacy #[id number], Partial fill upon patient request if the prescription is for a schedule II opioid drug., 157, cm,... Start Date: 03/12/21 Stop Date: 03/07/22 Status: Ordered Multivitamin 1 tablet, By Mouth, Daily, 0 Refills, Maintenance, 07/17/13 14:36:06 EDT Start Date: 09/21/12 Status: Ordered [...] Refills, Maintenance, 03/12/21 16:07:00 EST, ER Capsule, [id number], Partial fill [...] 4colo 2004 nl, rpt 2013 5MI 2019 [address]; no repeat due to age 7restarted HCTZ; will monitor 8holding hctz ;recheck 9Antibody positive 10thought to be medication related by neurology Social History Social History Type Response Smoking Status Never (less than 100 in lifetime) entered on: 12/02/20 Sex
--- OUTSIDE RECORDS SUMMARY | 2024-01-05 23:01 | XMS_ITS | Continuity of Care Document ---
Author Organization [facility] Cayden Ontiveros Yon lt Address [address] [place] [address]- Care Team Providers Care Instrument Worker Name Role Phone Delvis ALEXANDER, Catie Shelton Primary Care Physician [phone] [facility] Date(s): 03/17/23 - 04/16/23 [facility] Adult [address] [place] [address]- Allergies, Adverse Reactions, Alerts Substance Reaction Severity [...] virus vaccine, inactivated 3 12/30/05 Gi cyn [id number] 12y+ bivalent booster vax 08/06/22 Recorded PGWA-[id number]-3tCNY 12y+ bivalent booster vax 12/13/21 Recorded pneumococcal 23-valent vaccine 4 07/29/21 Given SARS-CoV-2 mRNA (qwixkxb-cwgl-ihpkm) vax 06/21/21 Recorded SARS-CoV-2 (COVID-19) mRNA BNT-162b2 [...] 03/08/00 Given 1Result Comment: [facility]# [id number] 2Result Comment: [12/09/2017] [id number] 3Admin Note: GIVEN IN CL[facility]IC [facility] 4Result Comment: [facility]# [id number] 5Admin Note: [facility] 6Admin Note: [facility] 7Admin Note: GIVEN AT OUTSIDE CLINIC 8Admin Note: per pt rcvd elsewhere Medications amLODIPine 5 mg oral tablet 1 tablet, By Mouth, Daily, # 30 tablet, 5 Refills, Maintenance, 03/14/23 14:05:00 EST, [facility]139, 157.5, cm, 08/04/22 8:48:00 EDT, Height, 59.5, kg, 06/03/22 14:32:00 EDT, Dry Weight Start Date: 03/14/23 Status: Ordered Aspirin Low Dose 81 mg oral delayed release tablet 1 tablet, By Mouth, Daily, # 30 tablet, 5 Refills, Maintenance, 03/18/23 7:42:00 EST, [facility][id number], 157.5, cm, 08/04/22 8:48:00 EDT, Height, 59.5, kg, 06/03/22 14:32:00 EDT, Dry Weight Start Date: 03/18/23 Status: Ordered carvedilol 6.25 mg oral tablet 1, tablet, By Mouth, 2 times a day, # 180 tablet, Refills 1, Tot. Refills 1, Maintenance, 01/27/23 20:22:00 EST, [id number], cm, 08/04/22 8:48:00 EDT,Height, 59.5, kg, 06/03/22 14:32:00 EDT, Dry Weight Start Date: 01/27/23 Status: Ordered clopidogrel 75 mg oral tablet 1, tablet, By Mouth, Daily, # 30 tablet, Refills 5, Tot. Refills 5, Maintenance, 03/26/22 11:55:00 EST, [id number] 158, cm, 02/27/22 13:27:00 EST, Height, 63, kg, 07/28/21 1:38:00 EDT, Dry Weight Start Date: 03/26/22 Status: Ordered Daily Brielle oral tablet 1 tablet, By Mouth, Daily, # 30 tablet, 11 Refills, Maintenance, 02/15/23 12:26:00 EST, [facility], 30, TAKE 1 TABLET BY MOUTH EVERY DAY, 157.5, cm, 08/04/22 8:48:00 EDT, Height, 59.5, kg, 06/03/22 14:32:00 EDT, Dry Weight Start Date: 02/15/23 Status: Ordered donepezil 5 mg oral tablet 1, tablet, By Mouth, Daily at bedtime, # 30 tablet, Refills 2, Maintenance, 05/25/22 16:50:00 EDT, Route to Pharmacy Electronically, [facility] STORE 10728, 158, cm, 02/27/22 13:27:00 EST, Height, 63, kg, 07/28/21 1:38:00 EDT, Dry Weight Start Date: 05/25/22 Status: Ordered furosemide 40 mg oral tablet 1, tablet, By Mouth, Daily, # 30 tablet, Refills 5, Tot. Refills 5, Maintenance, 03/18/23 7:42:00 EST, Route to Pharmacy Electronically, [facility]/pharmacy #[id number], 157.5, cm, 08/04/22 8:48:00 EDT, Height, 59.5, kg, 06/03/22 14:32:00 EDT, Dry Weight Start Date: 03/18/23 Status: Ordered lisinopril 10 mg oral tablet 1, tablet, By Mouth, 2 times a day, # 180 tablet, Refills 3, Maintenance, 01/25/23 11:53:00 EST, Route to Pharmacy Electronically, [facility], 157.5, cm, 08/04/22 8:48:00 EDT, Height, 59.5, [...] capsule, 3 Refills, Maintenance, 02/11/23 7:48:00 EST, [facility] 1976[facility], 157.5, cm, 08/04/22 8:48:00 EDT, Height, 59.5, kg, 06/03/22 14:32:00 EDT, Dry Weight Start Date: 02/11/23 Status: Ordered Vitamin D3 1000 intl units oral capsule 1 capsule, By Mouth, Daily, # 30 capsule, 5 Refills, Maintenance, 03/14/23 14:05:00 EST, [facility], 157.5, cm, 08/04/22 8:48:00 EDT, Height, 59.5, [...] 4colo 2004 nl, rpt 2013 5MI 2019 [address]31; no repeat due to age 7restarted HCTZ; will monitor 8holding hctz ;recheck 9Per discharge note 03/05/21: Long-standing schizoaffective disorder, bipolar type. 10Antibody positive 11thought to be medication related by neurology Social History Social History Type Response Smoking Status Never (less than 100 in lifetime) entered on: 12/02/20 Sex Patient Care team information Care Team Personnel Name: Carley Vazquez RN Position: [facility] RN Member Role: Primary Care Nurse Name: Annia Iniguez NP Position: [facility] Associate Professional Member Role: Primary Care Nurse Address: Address: [address] [place] [address]- Name: Catie Washington Position: [facility] PCO Associate Professional Member Role: PCP Address: Address: [address] [place] [address]- [place] Name: David Knapp MD Position: [facility] Renal MD Member Role: Lifetime Consulting Physician Address: Address: [address] [facility] [address] [facility] [place] [address]- [place] Name: Zabrina Reyes RN Position: S RN Member Role: Primary Care Nurse Name: Melissa Ugarte RN Position: S RN Member Role: Primary Care Nurse Care Team Related Persons Name: LIVIA MAXWELL Address: [address] [place] [address] Name: DINA MAXWELL Address: [address] [place] [address]
--- OUTSIDE RECORDS SUMMARY | 2024-01-05 23:01 | XMS_ITS | Continuity of Care Document ---
Author Organization [facility] Yon lt Address [address] [place] [address]- Care Team Providers Care Supervisor Modern Languages Name Role Phone Jaci GOLD, Garrison Swan Primary Care Physician [facility] Date[facility]s): 01/09/22 - 02/08/22 [facility] Adult [address] [place] [address]- Allergies, Adverse Reactions, Alerts Substance Reaction Severity [...] 23-valent vaccine 6 07/29/21 Given SARS-CoV-2 mRNA (yrzcunh-xfeo-hmvuc) vax 06/21/21 Recorded SARS-CoV-2 (COVID-19) mRNA BNT-162b2 [...] Toxoid Vaccine (oldterm) 03/08/00 Given 1Result Comment: [facility]# [id number] 2Result Comment: [12/09/2017] [id number] 3Result Comment: [04/15/2015 Uncharted] Pt had influenza vaccine 12/12/15- 4Admin Note: PT had the flu shot done at [facility] Flu clinic 5Admin Note: GIVEN IN [facility]IC [facility] 6Result Comment: [facility]# [id number] 7Admin Note: [facility] 8Admin Note: [facility] 9Admin Note: GIVEN AT OUTSIDE CLINIC 10Admin Note: per pt rcvd elsewhere Medications amLODIPine 5 mg oral tablet See Instructions, TAKE 1 TABLET BY MOUTH EVERY DAY, # 30 tablet, 5 Refills, Maintenance, 01/01/22 15:18:00 EDT, [facility] STORE 79317, 158, cm, 11/27/21 8:19:00 EDT, Height, 63, [...] [facility] Partial fill upon patient request if the prescription is for a schedule II... Start Date: 02/02/22 Status: Ordered clopidogrel 75 mg oral tablet 1, tablet, By Mouth, Daily, # 30 tablet, Refills 0, Maintenance, 11/06/21 16:29:00 EDT, Route to Pharmacy Electronically, [facility] STORE 88392, 158, cm, 10/02/21 9:27:00 EDT, Height, 63, kg, 07/28/21 1:38:00 EDT, Dry Weight Start Date: 11/06/21 Status: Ordered donepezil 5 mg oral tablet See Instructions, TAKE 1 TABLET BY MOUTH AT BEDTIME, # 30 tablet, Refills 5, Tot. Refills 5, 01/23/22 15:56:00 EST, Instructions Replace Required Details, [facility] 158, cm, 01/21/22 13:27:00 EST, Height, 63... Start Date: 01/23/22 Status: Ordered Lasix 40 mg oral tablet 40 mg, 1, tablet, By Mouth, Daily, # 30 tablet, Refills 11, Tot. Refills 11, Maintenance, 03/12/21 16:08:00 EST, [facility] Partial fill upon patient request if the prescription is for a schedule II opioid dr... Start Date: 03/12/21 Stop Date: 03/07/22 Status: Ordered lisinopril 10 mg oral tablet 10 mg, 1, tablet, By Mouth, 2 times a day, # 180 tablet, Refills 3, Tot. Refills 3, Maintenance, 03/07/22 16:09:00 EST, [id number], Partial fill upon patientrequest if [...] Refills, Maintenance, 01/23/22 15:28:00 EST, ER Capsule, [facility]/pharmacy [...] 4colo 2004 nl, rpt 2013 5MI 2019 43926; no repeat due to age 7restarted HCTZ; [...] Care Nurse Name: Annia Iniguez NP Position: [facility] Associate Professional Member Role: Primary Care Nurse Address: Address: [address] [place] [address]- [place] Name: Garrison Beatty MD Position: [facility] Primary Care Physician Member Role: PCP Address: Address: [address] [place] [address]- [place] Name: David Knapp MD Position: [facility] Renal MD Member Role: Lifetime Consulting Physician Address: Address: [address] [facility] [place] [address]- [place] Name: Zabrina Reyes RN Position: [facility] RN Member Role: Primary Care Nurse Name: Torito COONEY, Melissa Position: [facility] RN Member Role: Primary Care Nurse Care Team Related Persons Name: LIVIA MAXWELL Address: [address] [address] Name: DINA MAXWELL Address: [address] [address]
--- OUTSIDE RECORDS SUMMARY | 2024-01-05 23:01 | XMS_ITS | Continuity of Care Document ---
Author Organization [facility] Yon lt Address [address] [place] [address]- Care Team Providers Care Shipwright Helper Name Role Phone Jaci GOLD, Garrison Swan Primary Care Physician Encounter [facility] Date(s): 02/27/22 - 03/29/22 [facility] Adult [address] [place] [address]- Attending Physician: Admtr, Ar8 Allergies, Adverse Reactions, [...] 23-valent vaccine 6 07/29/21 Given SARS-CoV-2 mRNA (pjodlgu-jtsx-hbhak) vax 06/21/21 Recorded SARS-CoV-2 (COVID-19) mRNA BNT-162b2 [...] Given 1Result Comment: [facility]# [id number] 2Result Comment: [12/09/2017] [id number] 3Result Comment: [04/15/2015 Uncharted] Pt had influenza vaccine 12/12/15- 4Admin Note: PT had the flu shot done at [facility] Flu clinic 5Admin Note: GIVEN IN [facility] 6Result Comment: [facility]# [id number] 7Admin Note: [facility] 8Admin Note: [facility] 9Admin Note: GIVEN AT OUTSIDE CLINIC 10Admin Note: per pt rcvd elsewhere Medications amLODIPine 5 mg oral tablet See Instructions, TAKE 1 TABLET BY MOUTH EVERY DAY, # 30 tablet, 5 Refills, Maintenance, 01/01/22 15:18:00 EDT, [id number], 158, cm, 11/27/21 8:19:00 EDT, Height, 63, kg, 07/28/21 1:38:00 EDT, Dry Weight Start Date: 01/01/22 Status: Ordered aspirin 81 mg oral delayed release tablet 81 mg, 1, tablet, By Mouth, Daily, # 30 tablet, Refills 5, Tot. Refills 5, Maintenance, 03/26/22 11:58:00 EST, Route to Pharmacy Electronically, [facility]/pharmacy #[id number], Partial fill upon patient request if the prescription is for a schedule II opioid drug... Start Date: 03/26/22 Status: Ordered carvedilol 6.25 mg oral tablet 6.25 mg, 1, tablet, By Mouth, 2 times a day, # 180 tablet, Refills 3, Tot. Refills 3, Maintenance, 02/02/22 16:34:00 EST, [id number] fill upon patient request if the prescription is for a schedule II... Start Date: 02/02/22 Status: Ordered clopidogrel 75 mg oral tablet 1, tablet, By Mouth, Daily, # 30 tablet, Refills 5, Tot. Refills 5, Maintenance, 03/26/22 11:55:00 EST, [id number], cm, 02/27/22 13:27:00 EST, Height, 63, kg, 07/28/21 1:38:00 EDT, Dry Weight Start Date: 03/26/22 Status: Ordered Daily Brielle oral tablet 1 tablet, By Mouth, Daily, # 30 tablet, 11 Refills, Maintenance, 03/18/22 11:57:00 EST, [facility] STORE [id number], 30, TAKE 1 TABLET BY MOUTH EVERY DAY, 158, cm, 02/27/22 13:27:00 EST, Height, 63, kg, 221:38:00 EDT, Dry Weight Start Date: 03/18/22 Status: Ordered donepezil 5 mg oral tablet See Instructions, TAKE 1 TABLET BY MOUTH AT BEDTIME, # 30 tablet, Refills 5, Tot. Refills 5, 01/23/22 15:56:00 EST, Instructions Replace Required Details, [id number], cm, 01/21/22 13:27:00 EST, Height, 63... Start Date: 01/23/22 Status: Ordered High Potency Vitamin D3 25 mcg (1000 intl units) oral capsule 1 capsule = 25 mcg, By Mouth, Daily, # 30 capsule, 5 Refills, Maintenance, 03/26/22 11:54:00 EST, [id number] fill upon patient request if the prescription is for a schedule II opioiddrug., 158, cm, 02/27/22 13:27:00 EST, Height, 63,... Start Date: 03/26/22 Status: Ordered Lasix 40 mg oral tablet 40 mg, 1, tablet, By Mouth, Daily, # 30 tablet, Refills 5, Tot. Refills 5, Maintenance, 03/26/22 11:53:00 EST, Route to Pharmacy Electronically, [facility]/pharmacy #[id number], Partial fill upon patient request if the prescription is for a schedule II opioid drug... Start Date: 03/26/22 Stop Date: 09/22/22 Status: Ordered lisinopril 10 mg oral tablet 10 mg, 1, tablet, By Mouth, 2 times a day, # 180 tablet, Refills 3, Tot. Refills 3, Maintenance, 03/07/22 16:09:00 EST, Route to Pharmacy Electronically, [facility]/pharmacy #[id number], Partial fill upon patientrequest if [...] Refills, Maintenance, 01/23/22 15:28:00 EST, ER Capsule, [facility]/pharmacy #[id number], Partial fill upon patient request [...] 4colo 2004 nl, rpt 2013 5MI 2019 91122; no repeat due to age 7restarted HCTZ; will monitor 8holding hctz ;recheck 9Per discharge note 03/05/21: Long-standing schizoaffective disorder, bipolar type. 10Antibody positive 11thought to be medication related by neurology Social History Social History Type Response Smoking Status Never (less than 100 in lifetime) entered on: 12/02/20 Sex EKG study * Event Display: EKG Authored Date: Note * Event Display: Non Lab Results Authored Date: * Event Display: CT Scan Abdomen, Non- BH Authored Date: * Event Display: CT Scan Abdomen, Non- Authored Date: * Event Display: MM Mammogram Authored Date: * Ariana Olson: PERFORM, SIGN, VERIFY Event Display: Patient Education/Instruction Authored Date: [id number] [facility] SHAKA So Weston Hinson Clinical Summary Person Information [...] tablet, Oral, Daily at Bedtime, Refills: 0 [place]-3 Polyunsaturated Fatty Acids , Oral, Refills: 0 Potassium Chloride (Klor-Con 10 10 mEq oral tablet, extended release) 1 tablet, Oral, Daily, FAX [phone] BRAND NAME MEDICALLY NECESSARY NO SUBSTITUTION, Refills: [...] care provider, you may find a [facility] provider by calling [facility] [employer] at [phone]. Patient Visit Summary: Follow-Up Instructions Patient Education Materials Additional Instructions: * Event Display: Radiology Result Scanned Authored Date: * Jasmina Zepeda: PERFORM Event Display: Radiology Results Scanned Authored Date: * Antonia Sinha.: PERFORM Event Display: Cardiovascular Results Scanned Authored Date: [id number] * Antonia Sinha.: PERFORM Event Display: Cardiovascular Results Scanned Authored Date: [id number] * Ariana Olson: PERFORM Event Display: Radiology Results Scanned Authored Date: XR Chest Views * Event Display: X-Ray Chest Authored Date: * Event Display: X-Ray Chest Authored Date: * Event Display: X-Ray Chest Authored Date: XR Spine Views * Event Display: X-Ray Spine Authored Date: * Event Display: X-Ray Spine Authored Date: * Event Display: X-Ray Spine Authored Date: Patient Care team information Care Team Personnel Name: Carley Vazquez RN Position: S RN Member Role: Primary Care Nurse Name: Geetha BRIDGE BUILDER, Annia Gomes Position: [facility] Associate Professional Member Role: Primary Care Nurse Address: Address: [address] [place] [id number]- [place] Name: Garrison Beatty MD Position: [facility] Primary Care Physician Member Role: PCP Address: Address: [address] [place] [phone]- [place] Name: David Knapp MD Position: [facility] Renal MD Member Role: Lifetime Consulting Physician Address: Address: [address] [facility] [address] [facility] [place] [address]- [place] Name: Zabrina Reyes RN Position: S RN Member Role: Primary Care Nurse Name: Melissa Ugarte RN Position: [facility] RN Member Role: Primary Care Nurse Care Team Related Persons Name: LIVIA MXAWELL Address: home [address] [place] [address] Name: DINA MAXWELL Address: home [address] [place] [id number]
--- OUTSIDE RECORDS SUMMARY | 2024-01-05 23:01 | XMS_ITS | Continuity of Care Document ---
Author Organization [facility] ter Address [address] [place] [id number]- Care Team Providers Care Edger Machine Helper Name Role Phone Garrison Beatty MD Primary Care Physician [facility] Date[facility]s): 06/03/22 - 06/03/[address] [address] Discharge Disposition: A-D/C Home Attending Physician: Scott Melton MD Admitting Physician: Scott Melton MD Referring Physician: Scott Melton MD Allergies, Adverse Reactions, Alerts Substance Reaction [...] 23-valent vaccine 6 07/29/21 Given SARS-CoV-2 mRNA (uxmilbj-kusy-juuol) vax 06/21/21 Recorded SARS-CoV-2 (COVID-19) mRNA BNT-162b2 [...] Vaccine (oldterm) 03/08/00 Given 1Result Comment: [facility]# [id number] 2Result Comment: [12/09/2017] [id number] 3Result Comment: [04/15/2015 Uncharted] Pt had influenza vaccine 12/12/15- 4Admin Note: PT had the flu shot done at [facility] Flu clinic 5Admin Note: GIVEN IN CLINIC [facility] 6Result Comment: [facility]# [id number] 7Admin Note: [facility] 8Admin Note: [facility] 9Admin Note: GIVEN AT OUTSIDE CLINIC 10Admin Note: per pt rcvd elsewhere Medications amLODIPine 5 mg oral tablet 1 tablet, By Mouth, Daily, # 30 tablet, 5 Refills, Maintenance, 04/17/22 19:41:00 EST, [facility] STORE [id number], 158, cm, 02/27/22 13:27:00 EST, Height, 63, kg, 07/28/21 1:38:00 EDT, Dry Weight Start Date: 04/17/22 Status: Ordered aspirin 81 mg oral delayed release tablet 81 mg, 1, tablet, By Mouth, Daily, # 30 tablet, Refills 5, Tot. Refills 5, Maintenance, 03/26/22 11:58:00 EST, Route to Pharmacy Electronically, [facility]/pharmacy #[id number], Partial fill upon patient request if the prescription is for a schedule II opioid drug... Start Date: 03/26/22 Status: Ordered carvedilol 6.25 mg oral tablet 6.25 mg, 1, tablet, By Mouth, 2 times a day, # 180 tablet, Refills 3, Tot. Refills 3, Maintenance, 02/02/22 16:34:00 EST, [id number] fill upon patient request if the prescription is for a schedule II... Start Date: 02/02/22 Status: Ordered clopidogrel 75 mg oral tablet 1, tablet, By Mouth, Daily, # 30 tablet, Refills 5, Tot. Refills 5, Maintenance, 03/26/22 11:55:00 EST, Route to Pharmacy Electronically, [facility]/pharmacy #[id number], 158, cm, 02/27/22 13:27:00 EST, Height, 63, kg, 07/28/21 1:38:00 EDT, Dry Weight Start Date: 03/26/22 Status: Ordered Daily Brielle oral tablet 1 tablet, By Mouth, Daily, # 30 tablet, 11 Refills, Maintenance, 03/18/22 11:57:00 EST, [id number], 30, TAKE 1 TABLET BY MOUTH EVERY DAY, 158, cm, 02/27/22 13:27:00 EST, Height, 63, kg, 221:38:00 EDT, Dry Weight Start Date: 03/18/22 Status: Ordered donepezil 5 mg oral tablet 1, tablet, By Mouth, Daily at bedtime, # 30 tablet, Refills 2, Maintenance, 05/25/22 16:50:00 EDT, Route to Pharmacy Electronically, [id number], 158, cm, 02/27/22 13:27:00 EST, Height, 63, kg, 07/28/21 1:38:00 EDT, Dry Weight Start Date: 05/25/22 Status: Ordered High Potency Vitamin D3 25 mcg (1000 intl units) oral capsule 1 capsule = 25 mcg, By Mouth, Daily, # 30 capsule, 5 Refills, Maintenance, 03/26/22 11:54:00 EST, [facility]/pharmacy #[id number], Partial fill upon patient request if the prescription is for a schedule II opioiddrug., 158, cm, 02/27/22 13:27:00 EST, Height, 63,... Start Date: 03/26/22 Status: Ordered Lasix 40 mg oral tablet 40 mg, 1, tablet, By Mouth, Daily, # 30 tablet, Refills 5, Tot. Refills 5, Maintenance, 03/26/22 11:53:00 EST, [id number] Partial fill upon patient request if the prescription is for a schedule II opioid drug... Start Date: 03/26/22 Stop Date: 09/22/22 Status: Ordered lisinopril 10 mg oral tablet 10 mg, 1, tablet, By Mouth, 2 times a day, # 180 tablet, Refills 3, Tot. Refills 3, Maintenance, 03/07/22 16:09:00 EST, Route to Pharmacy Electronically, [facility]/pharmacy #[id number], Partial fill upon [...] Refills, Maintenance, 01/23/22 15:28:00 EST, ER Capsule, [facility]/pharmacy #[id number], Partial fill upon [...] 4colo 2003 nl, rpt 2013 5MI 2019 [id number]; no repeat due to age 7restarted HCTZ; will monitor 8holding hctz ;recheck 9Per discharge note 03/05/21: Long-standing schizoaffective disorder, bipolar type. 10Antibody positive 11thought to be medication related by neurology Procedures Procedure Date Related Diagnosis Body Site Status Colonoscopy 06/03/22 Completed Vital Signs Most recent to oldest [Reference Range]: 1 2 3 Height 157.5 cm (06/03/22 2:32 PM) Weight 59.5 kg (06/03/22 2:32 PM) Oxygen Saturation [94-100 %] 100 % (06/03/22 3:50 PM) 100 % (06/03/22 3:40 PM) 100 % (06/03/22 2:32 PM) Pulse Rate [55-90 bpm] 79 bpm (06/03/22 2:32 PM) Body Mass Index [18.5-24.99 kg/m2] 23.99 kg/m2 (06/03/22 2:32 PM) Blood Pressure [90-138/55-84 mm Hg] 133/87mm Hg (06/03/22 3:50 PM) 101/57mm Hg (06/03/22 3:40 PM) 121/61mm Hg (06/03/22 2:32 PM) Respiratory Rate [16-30 br/min] 19 br/min (06/03/22 3:50 PM) 19 br/min (06/03/22 3:40 PM) 16 br/min (06/03/22 2:32 PM) Temperature [96.8-100.4 DegF] 98.2 DegF (06/03/22 2:32 PM) Mode of Delivery (Oxygen) Room air (06/03/22 3:50 PM) Room air (06/03/22 3:40 PM) Room air (06/03/22 2:32 PM) Blood pressure sites Arm, left (06/03/22 3:50 PM) Arm, left (06/03/22 3:40 PM) Arm, left (06/03/22 2:32 PM) Temperature Route Temporal (06/03/22 2:32 PM) Dry Weight 59.5 kg (06/03/22 2:32 PM) Weight Obtained Via Patient/family state d (06/03/22 2:32 PM) Dry Weight Obtained Via Patient/family s tated (06/03/22 2:32 PM) Social History Social History Type Response Smoking Status Never (less than 100 in lifetime) entered on: 12/02/20 Sex Note * Viviana Lee RN: PERFORM Event Display: Discharge/Transfer Note Hospital Authored Date: [id number] Nursing Discharge Note Entered On: 06/03/2022 15:46 EDT Performed On: 06/03/2022 15:46 EDT by Viviana Lee RN Nursing Discharge Note 2 Discharge Time : 06/03/2022 16:30 EDT Discharge Level of Care at Discharge : Home/Long-Term/Foster Care Viviana Lee RN - 06/03/2022 16:48 EDT Patient Left Unit Via : Wheelchair Patient Accompanied Off Unit with : Responsible adult DC Instructions Provided & Signed by Pt : Yes Patient Understands D/C Instructions : Yes Patient Instructions Discharge Signed : Yes Did Pt have Specialty Bed or Wound Vac : No Viviana Lee RN - 06/03/2022 15:46 EDT * Viviana Lee RN: PERFORM Event Display: Patient Education/Instruction Authored Date: [id number] Inpatient Adult Discharge Instructions [address] [address] Name: PERRI MAXWELL : 1945 Visit: 06/03/2022 13:02:00 Current Date: 06/03/2022 15:46 Account: [id number] Inpatient Adult Discharge Instructions We would like to thank you for allowing us to assist you with your healthcare needs. The following includes patient education materials and information regarding your injury/illness. Our entire staffstrives to provide an excellent experience for our patients and their families. PLEASE ENSURE YOU FOLLOW-UP PER THE INSTRUCTIONS BELOW! ?? YOUR OPINION IS IMPORTANT TO US! Please complete the survey you may receive by mail or email. Your feedback will be used to make improvements to the healthcare experiences of our patients and their families. Surveys are administered by [employer] ?? If further treatment with your primary care physician or another doctor is recommended, it is important for you to keep the appointment. Call your primary care physician or return to the Emergency Department immediately if your condition worsens, fails to improve, or new symptoms develop. If you need to find a doctor, you can call [facility] [employer] for a referral at [phone] or toll free at [phone] or log in to [email or web address].. ?? You can view and manage your care through the patient portal or by using a health care umu of your choosing. [employer] is a website that allows you to securely view your medical information including your hospital discharge summary, office visit summaries, medications and follow-up visits. You can also request appointments, renew medications, and request access to your medical information using a health care umu of your choosing, or just ask a question. You can enroll at [email or web address] or register during your next office visit. You have been discharged from [facility], Patient Care Unit: ENDO. If you have any questions regarding these instructions after you leave, please call us and we will be happy to assist you. [facility] Your Care Team Attending Physician Scott Melton MD Discharging Providers Scott Melton MD Reason for Admission colonoscopy hx polyps Tests Performed Below is a partial list of the tests performed during your hospitalization. You may have had other tests and procedures not included in this list. Please discuss all test results with your provider. Primary Care Provider Garrison Beatty MD Advance Directive Health Care Proxy on File Yes - MOLST Discharge Vitals Temperature: 98.2 DegF Height: 157.5 cm Pulse Rate: 79 bpm Weight: 59.5 kg Respiratory Rate: 19 br/min Body Mass Index: 23.99 kg/m2 Systolic Blood Pressure: 101 mm Hg Body surface area: 1.61 Diastolic Blood Pressure: 57 mm Hg ?? Oxygen Saturation: 100 % ?? Studies Pending All tests and labs ordered during this hospital stay have been completed unless listed below. Please discuss all pending results with your provider listed above in these instructions. ?? No incomplete studies found What to do next Instructions From Your Doctor Discharge Orders Scheduled Follow-Up Appointments 2022 11:05 AM EDT ?? With: Nora GOLD, Pratik Swift Where: [facility] Cardiology [address] [place] [address]- Wednesday 2:30 PM EDT ?? With: Garrison Beatty MD Where: [address] [address]- Wednesday 11:30 AM EDT ?? With: Judith Kearney MD Where: [facility] Neurology [address] [place] [address] [address] Floor, [address] [place] [address]- You Need to Schedule the Following Appointments Follow Up with??As Needed When?? Discharge Medications PERRI MAXWELL :1945 Visit Date:06/03/2022 Medications: Please continue your medications until treatment is completed or stopped by your provider. Medications not listed below should be discontinued. Discuss any questions related to medications with your provider. What How Much When Instructions Next Dose Unchanged Amlodipine (amLODIPine 5 mg oral tablet) 1 tab(s) Oral Daily Unchanged Aspirin (aspirin 81 mg oral delayed release tablet) 1 tab(s) Oral Daily Unchanged bifidobacterium-lactobacillus (Nature's Bounty Probiotic) 1 tab(s) Oral Daily Unchanged Carvedilol (carvedilol 6.25 mg oral tablet) 1 tab(s) Oral Twice a day Unchanged Cholecalciferol (High Potency Vitamin D3 25 mcg (1000 intl units) oral capsule) 1 capsule Oral Daily Unchanged Clopidogrel (clopidogrel 75 mg oral tablet) 1 tab(s) Oral Daily Unchanged Donepezil (donepezil 5 mg oral tablet) 1 tab(s) Oral Daily at Bedtime Unchanged Furosemide (Lasix 40 mg oral tablet) 1 tab(s) Oral Daily Duration: 30 Days Unchanged Lisinopril (lisinopril 10 mg oral tablet) 1 tab(s) Oral Twice a day Unchanged Multivitamin (Daily Brielle oral tablet) 1 tab(s) Oral Daily Unchanged Olanzapine (ZyPREXA 5 mg oral tablet) 1 tab(s) Oral Daily Unchanged Potassium Chloride (potassium chloride 10 mEq oral capsule, extended release) 1 capsule Oral Daily Test Results Below is a partial list of the most recent Laboratory test results done prior to this discharge. You may have had other tests and procedures not included in this list. Please discuss all test resultswith your provider. Allergies (NKA means No Known Allergies) cephalexin nitrofurantoin predniSONE??(SEVERE H/A) statins??(MYALGIAS) sulfADIAZINE??(Ciprofloxacin) valsartan Problems Active Problems??(38) (HCC)Schizoaffective disorder?? Abnormal ultrasound of abdomen?? Adenomatous polyp of colon?? Adrenal adenoma?? Anxiety?? Benign Essential Hypertension?? CAD (coronary artery disease)?? Carotid artery stenosis?? Change in bowel habits?? Chronic hypokalemia?? Colonoscopy?? Depression, major, recurrent, moderate?? Diarrhea?? Diverticulitis?? Diverticulosis of sigmoid colon?? Elevated brain natriuretic peptide (BNP) level?? Gallstones?? Globus sensation?? H/O psychosis?? Hemorrhoids, external?? History of cardiac catheterization?? History of colonoscopy?? History of coronary artery bypass graft x 2?? History of squamous cell carcinoma?? History of ST elevation myocardial infarction (STEMI)?? Hypercalcemia?? Hypercholesterolemia?? Hypokalemia?? Hyponatremia?? Hypothyroidism?? MCI (mild cognitive impairment)?? Mild cognitive impairment?? MRI of brain abnormal?? Nephrolithiasis?? Osteopenia?? Renal mass, left?? Subclinical hypothyroidism?? Tremor of unknown origin?? Education Materials Below is the list of Educational Leaflet Providered with your Discharge Instructions. Surgery Medical Daystay Surgical Overnight Discharge Instructions?? Valuables and Belongings I fully understand and agree that [facility] accepts no responsibility for all my personal property including clothing, toilet articles, radios, jewelry, dentures, hearing aids, rings, money, or any other property that is in my possession or is brought to me after admission. I understand certain valuables may be placed in a hospital safe for a short period of time. I understand that the hospital is not liable for loss or damage due to accident, fire, or other natural occurrence while said property is in the safe. I accept full responsibility for any personal property that I keep with me, and will not hold the hospital responsible in case of loss or disappearance. I acknowledge that i have been encouraged to send valuables and belongings home. ? Other Discharge Information ? Pulmonary Rehab Status?? Pulmonary Rehab Discharge Status?? Respiratory Rate: 19 br/min ? Common Emergency Awareness Tips IS IT A STROKE? Act FAST and Check for these signs: FACE Does the face look uneven? ARM Does one arm drift down? SPEECH Does their speech sound strange? TIME Call at any sign of stroke ?? Heart Attack Signs Chest discomfort: Most heart attacks involve discomfort in the center of the chest and lasts more than a few minutes, or goes away and comes back. It can feel like uncomfortable pressure, squeezing, fullness or pain. Discomfort in upper body: Symptoms can include pain or discomfort in one or both arms, back, neck, jaw or stomach. Shortness of breath: With or without discomfort. Other signs: Breaking out in a cold sweat, nausea, or lightheaded. Remember, MINUTES DO MATTER. If you experience any of these heart attack warning signs, call to get immediate medical attention! ?? Smoking can increase your chances of developing chronic health problems and can cause harmful effects to other family members in your house. If you smoke, you are strongly encouraged to quit. Please call [facility] at [phone] or [phone] ([phone]) or log in to [email or web address] for referrals to smoking cessation programs. ?? The National Suicide Prevention Hotline is available 28/09 if you or someone you know needs to find a reason to keep living. By calling 2-140-652928-093-ndmd (7634) you'll be connected to a skilled, trained counselor at a crisis center in your area. INPATIENT DISCHARGE INSTRUCTIONS SIGNATURE PAGE PERRI MAXWELL Location:[facility] Registration Date and Time:06/03/2022 13:02 EDT Primary Care Physician: Garrison Beatty MD, I PERRI MAXWELL, have received the above patient education materials/instructions and have verbalized understanding. If ambulance or transport services are being used I further acknowledge being given a choice of service. ?? If you need to contact me, please call me at this number: . Patient/Repair Welder Name: Patient/Repair Welder Signature: Relationship to Patient: Witness Name/Signature: Date: * Viviana Lee RN: PERFORM Event Display: Patient Education Leaflets Authored Date: [id number] Surgery Medical Daystay Surgical Overnight Discharge Instructions ?? 295 Medical Daystay/Surgical Overnight Discharge Instructions ? Since your coordination and judgment may be altered by medication and/or anesthesia, a responsible adult must drive you home from the hospital. ? If you have received medication for pain or sedation while under our care, you should not drive, operate machinery, drink alcohol, or sign any legal documents for 24 hours.?? You should have someone with you at home tonight. ? Remain at home the day of discharge.?? You may be up and about unless otherwise instructed by your physician. ? You may resume your daily prescription medication schedule.?? Any depressant medication should be avoided for 24 hours unless otherwise instructed by your surgeon or anesthesiologist. ? Call your physician for a follow-up appointment.? If you experience unusual or severe pain not relied by your pain medication, excessive bleedingor drainage, persistent nausea and vomiting, excessive swelling or redness, foul odor from incisionsite or fever over 100.6F, you need to call your physician. ? A follow-up phone call by a nurse will be made the day after your procedure.?? If you have stayed with us over night, you will not be receiving a follow-up phone call. ? Nausea and vomiting are a common side effect of prescription pain medication.?? We recommend that pills are not taken on an empty stomach.?? While taking any prescription pain medication you should not drive or drink alcohol. ? Patient Care team information Care Team Personnel Name: Carley Vazquez RN Position: S RN Member Role: Primary Care Nurse Name: Geetha MAYBERRY, Annia Gomes Position: [facility] Associate Professional Member Role: Primary Care Nurse Address: Address: [address] [place] [address]- [place] Name: Garrison Beatty MD Position: [facility] Primary Care Physician Member Role: PCP Address: Address: [address] [place] [address]- [place] Name: David Knapp MD Position: [facility] Renal MD Member Role: Lifetime Consulting Physician Address: Address: [address] [place] [address] [address] [facility], [place] [address]- [place] Name: Zabrina Reyes RN Position: S RN Member Role: Primary Care Nurse Name: Melissa Ugarte RN Position: [facility] RN Member Role: Primary Care Nurse Care Team Related Persons Name: LIVIA MAXWELL Address: home [address] [place] [address] Name: DINA MAXWELL Address: home [address] [place] [address]
--- OUTSIDE RECORDS SUMMARY | 2024-01-05 23:01 | XMS_ITS | Continuity of Care Document ---
Author Organization [facility] Address [address] [place] [address]- Care Team Providers Care Ophthalmic Tech Name Role Phone Jaci GOLD, Garrison Swan Primary Care Physician [facility] Date[facility]s): 02/06/21 - 03/12/21 [facility] Adult [address] [place] [address]- Attending Physician: Belkis Pete NP Allergies, Adverse [...] Vaccine (oldterm) 03/08/00 Given 1Result Comment: [12/09/2017] [id number] 2Result Comment: [04/15/2015 Uncharted] Pt had influenza vaccine 12/12/15- 3Admin Note: PT had the flu shot done at [facility] Flu [facility] 4Admin Note: GIVEN IN CLINIC [facility] 5Admin Note: [employer] [facility] 6Admin Note: [employer] [facility] 7Admin Note: GIVEN AT OUTSIDE CLINIC 8Admin Note: per pt rcvd elsewhere Medications amLODIPine 5 mg oral tablet 5 mg, 1, tablet, By Mouth, Daily, # 30 tablet, Refills 11, Tot. Refills 11, Maintenance, 03/12/21 16:13:00 EST, Route to Pharmacy Electronically, [facility]/pharmacy #[id number], Partial fill upon patient requestif the prescription is for a schedule II opioid symone... Start Date: 03/12/21 Status: Ordered Aricept 5 mg oral tablet 5 mg, 1, tablet, By Mouth, Daily at bedtime, # 30 tablet, Refills 11, Tot. Refills 11, Maintenance,03/12/21 16:10:00 EST, Route to Pharmacy Electronically, [facility]/pharmacy #[id number], Partial fill upon patient request [...] Maintenance,03/12/21 16:08:00 EST, [id number] Partial fill upon patient request if the prescription is for a schedule II... Start Date: 03/12/21 Status: Ordered clopidogrel 75 mg oral tablet 1, tablet, By Mouth, Daily, # 30 tablet, Refills 11, Tot. Refills 11, Maintenance, 03/12/21 16:09:00 EST, Route to Pharmacy Electronically, [facility]/pharmacy #[id number], 157, cm, 03/12/21 13:26:00 EST, Height,60, kg, 01/20/21 16:03:00 EST, Dry Weight Start Date: 03/12/21 Status: Ordered Lasix 40 mg oral tablet 40 mg, 1, tablet, By Mouth, Daily, # 30 tablet, Refills 11, Tot. Refills 11, Maintenance, 03/12/21 16:08:00 EST, [id number] Partial fill upon patient request if the prescription is for a schedule II opioid dr... Start Date: 03/12/21 Stop Date: 03/07/22 Status: Ordered lisinopril 10 mg oral tablet 10 mg, 1, tablet, By Mouth, 2 times a day, # 60 tablet, Refills 11, Tot. Refills 11, Maintenance, 03/12/21 16:09:00 EST, [id number] Partial fill upon patient request if the prescription is for a schedule II o... Start Date: 03/12/21 Stop Date: 03/07/22 Status: Ordered magnesium oxide 400 mg oral tablet 1 tablet = 400 mg, By Mouth, Daily, for 30 days, # 30 tablet, 11 Refills, Acute 03/07/22 16:11:00 EST, 03/12/21 16:11:00 EST, Tablet, [facility]/pharmacy #[id number], Partial fill upon patient request [...] 03/12/21 16:07:00 EST, ER Capsule, [facility]/pharmacy #[id number], Partial fill upon patient request [...] 4colo 2004 nl, rpt 2013 5MI 2019 [address]; no repeat due to age 7restarted HCTZ; will monitor 8holding hctz ;recheck 9Antibody positive 10thought to be medication related by neurology Social History Social History Type Response Smoking Status Never (less than 100 in lifetime) entered on: 12/02/20 Sex
--- OUTSIDE RECORDS SUMMARY | 2024-01-05 23:01 | XMS_ITS | Continuity of Care Document ---
Author Organization [facility] Y[facility] Address [address] [place] [address]- Care Team Providers Care Set Up Machinist Name Role Phone Jaci GOLD, Garrison Swan Primary Care Physician [phone] [facility] 07[facility]19[facility]20 - 08/18/20 [facility] Adult [address] [place] [address]- Allergies, Adverse Reactions, Alerts Substance Reaction Severity [...] Vaccine (oldterm) 03/08/00 Given 1Result Comment: [12/09/2017] [id number] 2Result Comment: [04/15/2015 Uncharted] Pt had influenza vaccine 12/12/15- 3Admin Note: PT had the flu shot done at [facility] Flu clinic 4Admin Note: GIVEN IN CLINIC [facility] 5Admin Note: [employer] [facility] 6Admin Note: [facility] 7Admin Note: GIVEN AT OUTSIDE CLINIC 8Admin Note: per pt rcvd elsewhere Medications carvedilol 6.25 mg oral tablet 6.25 mg, 1, tablet, By Mouth, 2 times a day, # 60 tablet, Refills 11, Tot. Refills 11, Maintenance,08/07/20 13:57:00 EDT, Route to Pharmacy Electronically, [facility]/pharmacy [...] capsule, 0 Refills, Maintenance, 07/24/20 12:45:00EDT, Capsule, [facility]/pharmacy #[id number], Partial fill upon patient request if the prescription is for a schedule II opioid drug., 160, cm, 07/23/20 12:27:00 E... Start Date: 07/24/20 Stop Date: 08/07/20 Status: Ordered Lasix 40 mg oral tablet 40 mg, 1, tablet, By Mouth, Daily, # 30 tablet, Refills 11, Tot. Refills 11, Maintenance, 04/29/20 9:22:00 EST, Route to Pharmacy Electronically, [facility]/pharmacy [...] 03/20/20 10:44:00 EST, Route to Pharmacy Electronically, [facility]/pharmacy [...] 5 Refills, Maintenance, 08/09/20 13:00:00 EDT, Tablet, [facility]/pharmacy #[id number], Partial fill upon [...] 4colo 2003 nl, rpt 2013 5MI 2019 43591; no repeat due to age 7restarted HCTZ; will monitor 8holding hctz ;recheck 9Antibody positive 10thought to be medication related by neurology Social History Social History Type Response Smoking Status Never smoker; Tobacc o user in household: No entered on: 07/05/14 Sex
--- OUTSIDE RECORDS SUMMARY | 2024-01-05 23:01 | XMS_ITS | Continuity of Care Document ---
Author Organization [facility] Address [address] [place] [address]- Care Team Providers Care Nurse Assessor Name Role Phone Garrison Beatty MD Primary Care Physician [phone] [facility]counter [facility] Date(s): 03/19/20 - 04/18/20 [facility] [address] [place] [address]- Allergies, Adverse Reactions, Alerts Substance Reaction Severity [...] Vaccine (oldterm) 03/08/00 Given 1Result Comment: [12/09/2017] [id number] 2Result Comment: [04/15/2015 Uncharted] Pt had influenza vaccine 12/12/15- 3Admin Note: PT had the flu shot done at [facility] Flu clinic 4Admin Note: GIVEN IN CL[facility]IC [facility] 5Admin Note: [facility] 6Admin Note: [facility] 7Admin Note: GIVEN AT OUTSIDE CLINIC 8Admin Note: per pt rcvd elsewhere Medications amiodarone 200 mg oral tablet 200 mg, 1, tablet, By Mouth, 2 times a day, # 60 tablet, Refills 5, Tot. Refills 5, Maintenance, 03/20/20 10:44:00 EST, Route to Pharmacy Electronically, [facility]/pharmacy #[id number], Partial fill upon patientrequest if [...] 04/09/20 7:42:00 EST, Route to Pharmacy Electronically, [facility]/pharmacy #[id number], Partial fill upon patientrequest if [...] 10:44:00 EST, Route to Pharmacy Electronically, [facility]/pharmacy #[id number], Partial fill upon patient request if the prescription is for a schedule II opioid drug... Start Date: 03/20/20 Status: Ordered potassium chloride 10 mEq oral tablet, extended release 2 tablet = 20 mEq, By Mouth, Daily in AM, # 60 tablet, 5 Refills, Maintenance, 03/20/20 10:44:00 EST, ER Tablet, [facility]/pharmacy #[id number], Partial fill upon patient [...] 4colo 2004 nl, rpt 2013 5MI 2019 [address]5579; no repeat due to age 7restarted HCTZ; will monitor 8holding hctz ;recheck 9Antibody positive 10thought to be medication related by neurology Social History Social History Type Response Smoking Status Never smoker; Tobacc o user in household: No entered on: 07/05/14 Sex
--- OUTSIDE RECORDS SUMMARY | 2024-01-05 23:01 | XMS_ITS | Continuity of Care Document ---
Author Organization [facility] Y[facility] Address [address] [place] [address]- Care Team Providers Care Document Imaging Manager Name Role Phone Jaci GOLD, Garrison Swan Primary Care Physician [phone] [facility] Date[facility]): 08/06/20 - 09/05/20 [facility] Adult [address] [place] [address]- Allergies, Adverse Reactions, Alerts Substance Reaction Severity [...] Vaccine (oldterm) 03/08/00 Given 1Result Comment: [12/09/2017] [id number] 2Result Comment: [04/15/2015 Uncharted] Pt had influenza vaccine 12/12/15- 3Admin Note: PT had the flu shot done at [facility] Flu clinic 4Admin Note: GIVEN IN CLINIC [facility] 5Admin Note: [employer] [facility] 6Admin Note: [employer] [facility] 7Admin Note: GIVEN AT OUTSIDE CLINIC 8Admin Note: per pt rcvd elsewhere Medications carvedilol 6.25 mg oral tablet 6.25 mg, 1, tablet, By Mouth, 2 times a day, # 60 tablet, Refills 11, Tot. Refills 11, Maintenance,08/07/20 13:57:00 EDT, Route to Pharmacy Electronically, [facility]/pharmacy #[id number], Partial fill upon patient [...] 09/03/20 7:05:00 EDT, Route to Pharmacy Electronically, [facility]/pharmacy #[id number], 160, cm, 06... Start Date: 09/03/20 Stop Date: 09/10/20 Status: Ordered Lasix 40 mg oral tablet 40 mg, 1, tablet, By Mouth, Daily, # 30 tablet, Refills 11, Tot. Refills 11, Maintenance, 04/29/20 9:22:00 EST, Route to Pharmacy Electronically, [facility]/pharmacy #[id number], Partial fill upon patient requestif the prescription is for a schedule II opioid symone... Start Date: 04/29/20 Stop Date: 04/24/21 Status: Ordered losartan 25 mg oral tablet 0.5, By Mouth, Daily, # 15 tablet, Refills 3, Tot. Refills 3, Maintenance, 08/29/20 13:46:00 EDT, Route to Pharmacy Electronically, [facility]/pharmacy #[id number], Partial fill upon patient [...] 10:44:00 EST, Route to Pharmacy Electronically, [facility]/pharmacy #[id number], Partial fill upon patient [...] 4colo 2004 nl, rpt 2013 5MI 2019 53859; no repeat due to age 7restarted HCTZ; will monitor 8holding hctz ;recheck 9Antibody positive 10thought to be medication related by neurology Social History Social History Type Response Smoking Status Never smoker; Tobacc o user in household: No entered on: 07/05/14 Sex
--- OUTSIDE RECORDS SUMMARY | 2024-01-05 23:01 | XMS_ITS | Continuity of Care Document ---
Author Organization [facility] Yon lt Address [address] [place] [address]- Care Team Providers Care Vice President Of Contracts Name Role Phone Garrison Beatty MD Primary Care Physician [phone] [place] [facility] [place] 06/14[place] - 06/21/19 [facility] Adult [address] [place] [address]- [facility] Attending Physician: Garrison Beatty MD Allergies, Adverse [...] Vaccine (oldterm) 03/08/00 Given 1Result Comment: [12/09/2017] [id number] 2Result Comment: [04/15/2015 Uncharted] Pt had influenza vaccine 12/12/15- 3Admin Note: PT had the flu shot done at [facility] Flu clinic 4Admin Note: GIV[facility] IN CL[facility]IC [facility] 5Admin Note: [facility] 6Admin Note: [facility] 7Admin Note: GIVEN [...] EDT, Route to Pharmacy Electronically, [facility] # [id number], 155.5, cm, 02/17/19 10:28:00 [...] colo 2008 4colo 2003 nl, rpt 2013 499[address]; no repeat due to age 6restarted HCTZ; will monitor 7holding hctz ;recheck 8Antibody positive 9thought to be medication related by neurology Social History Social History Type Response Smoking Status Never smoker; Tobacc o user in household: No entered on: 07/05/14 Sex
--- OUTSIDE RECORDS SUMMARY | 2024-01-05 23:01 | XMS_ITS | Continuity of Care Document ---
Author Organization [facility] [place] Yon lt Address [address] [place] [address]- Care Team Providers Care Hvac Technician Name Role Phone Jaci GOLD, Garrison Swan Primary Care Physician [phone] [facility]counter [facility] Date(s): 04/24/20 - 05/24/20 [facility] [place] Adult [address] [place] [address]- Allergies, Adverse Reactions, Alerts Substance Reaction Severity [...] Vaccine (oldterm) 03/08/00 Given 1Result Comment: [12/09/2017] [id number] 2Result Comment: [04/15/2015 Uncharted] Pt had influenza vaccine 12/12/15- 3Admin Note: PT had the flu shot done at [facility] Flu clinic 4Admin Note: GIVEN IN CLINIC [facility] 5Admin Note: [facility] 6Admin Note: [facility] 7Admin Note: GIVEN AT OUTSIDE CLINIC 8Admin [...] 04/29/20 7:44:00 EST, Route to Pharmacy Electronically, [id number], 160, cm, 04/25/20 9:48:00 EST, Height, 62, [...] EST, Route to Pharmacy Electronically, [facility]/pharmacy #[id number], Partial fill upon patient requestif the prescription is for a schedule II opioid symone... Start Date: 04/29/20 Stop Date: 04/24/21 Status: Ordered lisinopril 5 mg oral tablet 5 mg, 1, tablet, By Mouth, Daily, # 30 tablet, Refills 3, Tot. Refills 3, Maintenance, 04/25/20 10:36:00 EST, Route to Pharmacy Electronically, [facility]/pharmacy #[id number], Partial fill upon patient [...] EST, Route to Pharmacy Electronically, [facility]/pharmacy #[id number], Partial fill upon patient request if the prescription is for a schedule II opioid drug... Start Date: 03/20/20 Status: Ordered potassium chloride 10 mEq oral tablet, extended release 2 tablet = 20 mEq, By Mouth, Daily in AM, # 60 tablet, 5 Refills, Maintenance, 04/29/20 9:23:00 EST, ER Tablet, [facility]/pharmacy #[id number], Partial fill upon patient [...] 4colo 2004 nl, rpt 2013 5MI 2019 10271; no repeat due to age 7restarted HCTZ; will monitor 8holding hctz ;recheck 9Antibody positive 10thought to be medication related by neurology Social History Social History Type Response Smoking Status Never smoker; Tobacc o user in household: No entered on: 07/05/14 Sex
--- OUTSIDE RECORDS SUMMARY | 2024-01-05 23:01 | XMS_ITS | Continuity of Care Document ---
Author Organization [facility] Address [address] [facility], [address], [address] [place] [address]- Care Team Providers Care Chemical Recovery Operator Name Role Phone Jaci GOLD, Garrison Swan Primary Care Physician [phone] Encounter [facility] Date(s): 03/14/22 - 07/02/22 [facility] [address], [address], [address] [place] [address]- Attending Physician: Judith Kearney MD Admitting Physician: Judith Kearney MD Allergies, Adverse Reactions, Alerts Substance Reaction [...] 23-valent vaccine 6 07/29/21 Given SARS-CoV-2 mRNA ([id number]) vax 06/21/21 Recorded SARS-CoV-2 (COVID-19) mRNA BNT-162b2 [...] Vaccine (oldterm) 03/08/00 Given 1Result Comment: [facility]# [id number] 2Result Comment: [12/09/2017] [id number] 3Result Comment: [04/15/2015 Uncharted] Pt had influenza vaccine 12/12/15- 4Admin Note: PT had the flu shot done at [facility] Flu clinic 5Admin Note: GIVEN IN CL[facility]IC [facility] 6Result Comment: [facility]# [id number] 7Admin Note: [employer] [facility] 8Admin Note: [employer] [facility] 9Admin Note: GIVEN AT OUTSIDE CLINIC 10Admin Note: per pt rcvd elsewhere Medications amLODIPine 5 mg oral tablet 1 tablet, By Mouth, Daily, # 30 tablet, 5 Refills, Maintenance, 04/17/22 19:41:00 EST, [id number], 158, cm, 02/27/22 13:27:00 EST, Height, 63, kg, 07/28/21 1:38:00 EDT, Dry Weight Start Date: 04/17/22 Status: Ordered aspirin 81 mg oral delayed release tablet 81 mg, 1, tablet, By Mouth, Daily, # 30 tablet, Refills 5, Tot. Refills 5, Maintenance, 03/26/22 11:58:00 EST, Route to Pharmacy Electronically, [facility]/pharmacy #[id number], Partial fill upon patient request if the prescription is for a schedule II opioid drug... Start Date: 03/26/22 Status: Ordered carvedilol 6.25 mg oral tablet 6.25 mg, 1, tablet, By Mouth, 2 times a day, # 180 tablet, Refills 3, Tot. Refills 3, Maintenance, 02/02/22 16:34:00 EST, Route to Pharmacy Electronically, [facility]/pharmacy #[id number], Partial fill upon patient request if the prescription is for a schedule II... Start Date: 02/02/22 Status: Ordered clopidogrel 75 mg oral tablet 1, tablet, By Mouth, Daily, # 30 tablet, Refills 5, Tot. Refills 5, Maintenance, 03/26/22 11:55:00 EST, Route to Pharmacy Electronically, [facility]/pharmacy #[id number], 158, cm, 02/27/22 13:27:00 EST, Height, 63, kg, 07/28/21 1:38:00 EDT, Dry Weight Start Date: 03/26/22 Status: Ordered Daily Brielle oral tablet 1 tablet, By Mouth, Daily, # 30 tablet, 11 Refills, Maintenance, 03/18/22 11:57:00 EST, [id number], 30, TAKE 1 TABLET BY MOUTH EVERY DAY, 158, cm, 02/27/22 13:27:00 EST, Height, 63, kg, :38:00 EDT, Dry Weight Start Date: 03/18/22 Status: Ordered donepezil 5 mg oral tablet 1, tablet, By Mouth, Daily at bedtime, # 30 tablet, Refills 2, Maintenance, 05/25/22 16:50:00 EDT, Route to Pharmacy Electronically, [facility], 158, cm, 02/27/22 13:27:00 EST, Height, 63, kg, 07/28/21 1:38:00 EDT, Dry Weight Start Date: 05/25/22 Status: Ordered High Potency Vitamin D3 25 mcg (1000 intl units) oral capsule 1 capsule = 25 mcg, By Mouth, Daily, # 30 capsule, 5 Refills, Maintenance, 03/26/22 11:54:00 EST, [facility]/pharmacy #[id number], Partial fill upon patient request if the prescription is for a schedule II opioiddrug., 158, cm, 02/27/22 13:27:00 EST, Height, 63,... Start Date: 03/26/22 Status: Ordered Lasix 40 mg oral tablet 40 mg, 1, tablet, By Mouth, Daily, # 30 tablet, Refills 5, Tot. Refills 5, Maintenance, 03/26/22 11:53:00 EST, Route to Pharmacy Electronically, [facility]/pharmacy #[id number], Partial fill upon patient request if the prescription is for a schedule II opioid drug... Start Date: 03/26/22 Stop Date: 09/22/22 Status: Ordered lisinopril 10 mg oral tablet 10 mg, 1, tablet, By Mouth, 2 times a day, # 180 tablet, Refills 3, Tot. Refills 3, Maintenance, 03/07/22 16:09:00 EST, Route to Pharmacy Electronically, [facility]/pharmacy #[id number], Partial fill upon patientrequest if the [...] 15:28:00 EST, ER Capsule, [facility]/pharmacy #[id number], Partial fill upon patient [...] 4colo 2003 nl, rpt 2013 5MI 2019 [address]; no repeat due to age 7restarted HCTZ; will monitor 8holding hctz ;recheck 9Per discharge note 03/05/21: Long-standing schizoaffective disorder, bipolar type. 10Antibody positive 11thought to be medication related by neurology Social History Social History Type Response Smoking Status Never (less than 100 in lifetime) entered on: 12/02/20 Sex Patient Care team information Care Team Personnel Name: Carley Vazquez RN Position: [facility] RN Member Role: Primary Care Nurse Name: Annia Iniguez NP Position: [facility] Associate Professional Member Role: Primary Care Nurse Address: Address: [address] [place] [address]- [place] Name: Garrison Beatty MD Position: [facility] Primary Care Physician Member Role: PCP Address: Address: [address] [place] [address]- [place] Name: David Knapp MD Position: [facility] Renal MD Member Role: Lifetime Consulting Physician Address: Address: [address] [facility] [place] [address]- [place] Name: Zabrina Reyes RN Position: [facility] RN Member Role: Primary Care Nurse Name: Melissa Ugarte RN Position: [facility] RN Member Role: Primary Care Nurse Care Team Related Persons Name: LIVIA MAXWELL Address: [address] [address] Name: DINA MAXWELL Address: [address] [address]
--- OUTSIDE RECORDS SUMMARY | 2024-01-05 23:01 | XMS_ITS | Continuity of Care Document ---
Author Organization [facility] Address Unknown Care Team Providers Care Value Stream Manager Name Role Phone Garrison Beatty MD Primary Care Physician Encounter [facility] Date(s): 05/01/21 - 07/24/21 [facility] Attending Physician: Ruth French MD Admitting Physician: Manolo GOLD, Ruth Referring Physician: Garrison Beatty MD Allergies, Adverse [...] Vaccine (oldterm) 03/08/00 Given 1Result Comment: [12/09/2017] [id number] 2Result Comment: [04/15/2015 Uncharted] Pt had influenza vaccine 12/12/15- 3Admin Note: PT had the flu shot done at [facility] Flu clinic 4Admin Note: GIVEN IN CLINIC [facility] 5Admin Note: [employer] [facility] 6Admin Note: [employer] [facility] 7Admin Note: GIVEN AT OUTSIDE CLINIC 8Admin Note: per pt rcvd elsewhere Medications amLODIPine 5 mg oral tablet 5 mg, 1, tablet, By Mouth, Daily, # 30 tablet, Refills 11, Tot. Refills 11, Maintenance, 03/12/21 16:13:00 EST, Route to Pharmacy Electronically, [facility]/pharmacy #[id number], Partial fill upon patient requestif the prescription is for a schedule II opioid symone... Start Date: 03/12/21 Status: Ordered Aricept 5 mg oral tablet 5 mg, 1, tablet, By Mouth, Daily at bedtime, # 30 tablet, Refills 11, Tot. Refills 11, Maintenance,03/12/21 16:10:00 EST, Route to Pharmacy Electronically, [facility]/pharmacy #[id number], Partial fill upon patient request [...] 06/26/21 10:43:00 EDT, [id number] Partial[facility] upon patient request if the prescription is fo... Start Date: 06/26/21 Status: Ordered clopidogrel 75 mg oral tablet 1, tablet, By Mouth, Daily, # 30 tablet, Refills 11, Tot. Refills 11, Maintenance, 03/12/21 16:09:00 EST, Route to Pharmacy Electronically, [facility]/pharmacy #[id number], 157, cm, 03/12/21 13:26:00 EST, Height,60, kg, 01/20/21 16:03:00 EST, Dry Weight Start Date: 03/12/21 Status: Ordered Lasix 40 mg oral tablet 40 mg, 1, tablet, By Mouth, Daily, # 30 tablet, Refills 11, Tot. Refills 11, Maintenance, 03/12/21 16:08:00 EST, [id number], Partial fill upon patient request if the prescription is for a schedule II opioid dr... Start Date: 03/12/21 Stop Date: 03/07/22 Status: Ordered lisinopril 10 mg oral tablet 10 mg, 1, tablet, By Mouth, 2 times a day, # 60 tablet, Refills 11, Tot. Refills 11, Maintenance, 03/12/21 16:09:00 EST, Route to Pharmacy Electronically, [facility]/pharmacy #[id number], Partial fill upon patient request if the prescription is for a schedule II o... Start Date: 03/12/21 Stop Date: 03/07/22 Status: Ordered magnesium oxide 400 mg oral tablet 1 tablet = 400 mg, By Mouth, Daily, for 30 days, # 30 tablet, 11 Refills, Acute 03/07/22 16:11:00 EST, 03/12/21 16:11:00 EST, Tablet, [facility]/pharmacy #[id number], Partial fill upon patient request [...] Refills, Maintenance, 03/12/21 16:07:00 EST, ER Capsule, [facility]/pharmacy #[id number], Partial fill upon patient request [...] 4colo 2004 nl, rpt 2013 5MI 2019 [address]; no repeat due to age 7restarted HCTZ; will monitor 8holding hctz ;recheck 9Antibody positive 10thought to be medication related by neurology Social History Social History Type Response Smoking Status Never (less than 100 in lifetime) entered on: 12/02/20 Sex
--- OUTSIDE RECORDS SUMMARY | 2024-01-05 23:01 | XMS_ITS | Continuity of Care Document ---
Author Organization [facility] Address [address] [place] [address]- Care Team Providers Care Ham Stringer Name Role Phone Jaci GOLD, Garrison Swan Primary Care Physician [facility]): 10[facility]13/22 - 11/12/22 [facility] [place] Adult [address] [place] [address]- Allergies, Adverse Reactions, Alerts Substance Reaction Severity Status cephalexin Active nitrofurantoin Active sulfADIAZINE Ciprofloxacin Active statins MYALGIAS Active predniSONE SEVERE H/A Active valsartan 1 Active 1dizziness Immunizations Given and Recorded Vaccine Date Status Refusal Reason [id number] 12y+ bivalent booster vax 12/13/21 Recorded influenza [...] influenza virus vaccine, inactivated 3 12/30/05 Gi ycn pneumococcal 23-valent vaccine 4 07/29/21 Given SARS-CoV-2 mRNA (lmlvwwq-kqdy-epnid) vax 06/21/21 Recorded SARS-CoV-2 (COVID-19) mRNA BNT-162b2 [...] 1Result Comment: [facility]# [id number] 2Result Comment: [12/09/2017] [address]-48 3Admin Note: GIVEN IN CLINIC [facility] 4Result Comment: [facility]# [id number] 5Admin Note: [facility] 6Admin Note: [facility] 7Admin Note: GIVEN AT OUTSIDE CLINIC 8Admin Note: per pt rcvd elsewhere Medications amLODIPine 5 mg oral tablet 1 tablet, By Mouth, Daily, # 30 tablet, 5 Refills, Maintenance, 09/14/22 6:19:00 EDT, [facility], 157.5, cm, 08/04/22 8:48:00 EDT, Height, 59.5, kg, 06/03/22 14:32:00 EDT, Dry Weight Start Date: 09/14/22 Status: Ordered Aspirin Low Dose 81 mg oral delayed release tablet 1 tablet, By Mouth, Daily, # 30 tablet, 5 Refills, Maintenance, 09/14/22 6:19:00 EDT, [facility], 157.5, cm, 08/04/22 8:48:00 EDT, Height, 59.5, kg, 06/03/22 14:32:00 EDT, Dry Weight Start Date: 09/14/22 Status: Ordered carvedilol 6.25 mg oral tablet 6.25 mg, 1, tablet, By Mouth, 2 times a day, # 180 tablet, Refills 3, Tot. Refills 3, Maintenance, 02/02/22 16:34:00 EST, [id number] fill upon patient request [...] Refills, Maintenance, 03/18/22 11:57:00 EST, [facility], 30, TAKE 1 TABLET BY MOUTH EVERY DAY, 158, cm, 02/27/22 13:27:00 EST, Height, 63, kg, 221:38:00 EDT, Dry Weight Start Date: 03/18/22 Status: Ordered donepezil 5 mg oral tablet 1, tablet, By Mouth, Daily at bedtime, # 30 tablet, Refills 2, Maintenance, 05/25/22 16:50:00 EDT, Route to Pharmacy Electronically, [facility], 158, cm, 02/27/22 13:27:00 EST, Height, 63, kg, 07/28/21 1:38:00 EDT, Dry Weight Start Date: 05/25/22 Status: Ordered furosemide 40 mg oral tablet 1, tablet, By Mouth, Daily, # 30 tablet, Refills 5, Maintenance, 09/14/22 6:19:00 EDT, Route to Pharmacy Electronically, [facility], 157.5, cm, 08/04/22 8:48:00 EDT, Height, 59.5, kg, 06/03/22 14:32:00 EDT, Dry Weight Start Date: 09/14/22 Status: Ordered lisinopril 10 mg oral tablet 10 mg, 1, tablet, By Mouth, 2 times a day, # 180 tablet, Refills 3, Tot. Refills 3, Maintenance, 03/07/22 16:09:00 EST, Route to Pharmacy Electronically, [facility]/pharmacy #[id number], Partial fill upon patientrequest [...] Refills, Maintenance, 01/23/22 15:28:00 EST, ER Capsule, [facility]/pharmacy #[id number], Partial fill upon patient request if the prescription is for a schedule II opioid drug., 158, cm, 01/21/22 13:27:00 EST,... Start Date: 01/23/22 Status: Ordered Vitamin D3 1000 intl units oral capsule 1 capsule, By Mouth, Daily, # 30 capsule, 5 Refills, Maintenance, 09/14/22 6:19:00 EDT, [facility]ORE 96416, 157.5, cm, 08/04/22 8:48:00 EDT, Height, 59.5, [...] 4colo 2004 nl, rpt 2013 5MI 2019 58320; no repeat due to age 7restarted HCTZ; [...] Care Nurse Name: Annia Iniguez NP Position: [facility] Associate Professional Member Role: Primary Care Nurse Address: Address: [address] [facility] [place] [address]- [place] Name: Garrison Beatty MD Position: [facility] Physician - Primary Care Member Role: PCP Address: Address: [address] [place] [address]- [place] Name: David Knapp MD Position: [facility] Renal MD Member Role: Lifetime Consulting Physician Address: Address: [address] [facility] [address] [facility] [place] [address]- [place] Name: Zabrina Reyes RN Position: S RN Member Role: Primary Care Nurse Name: Melissa Ugarte RN Position: S RN Member Role: Primary Care Nurse Care Team Related Persons Name: LIVIA MAXWELL Address: [address] [address] Name: DINA MAXWELL Address: [address] [address]
--- OUTSIDE RECORDS SUMMARY | 2024-01-05 23:01 | XMS_ITS | Continuity of Care Document ---
Author Organization [facility] Address [address] [place] [address]- Care Team Providers Care Spooling Supervisor Name Role Phone Garrison Beatty MD Primary Care Physician [facility] 07[facility]20 - 08/10/20 [facility] [address] [place] [address]- Allergies, Adverse Reactions, Alerts Substance Reaction Severity [...] Vaccine (oldterm) 03/08/00 Given 1Result Comment: [12/09/2017] [id number] 2Result Comment: [04/15/2015 Uncharted] Pt had influenza vaccine 12/12/15- 3Admin Note: PT had the flu shot done at [facility] Flu clinic 4Admin Note: GIVEN IN CLINIC [facility] 5Admin Note: [facility] 6Admin Note: [facility] 7Admin Note: GIVEN AT OUTSIDE CLINIC 8Admin Note: per pt rcvd elsewhere Medications carvedilol 6.25 mg oral tablet 6.25 mg, 1, tablet, By Mouth, 2 times a day, # 60 tablet, Refills 11, Tot. Refills 11, Maintenance,08/07/20 13:57:00 EDT, [facility] Refills, Maintenance, 07/24/20 12:45:00EDT, Capsule, [facility]/pharmacy #[id number], Partial fill [...] Maintenance, 08/09/20 13:00:00 EDT, Tablet, [facility]/pharmacy #[id number], Partial [...] 4colo 2004 nl, rpt 2013 5MI 2019 [address]80; no repeat due to age 7restarted HCTZ; will monitor 8holding hctz ;recheck 9Antibody positive 10thought to be medication related by neurology Social History Social History Type Response Smoking Status Never smoker; Tobacc o user in household: No entered on: 07/05/14 Sex
--- OUTSIDE RECORDS SUMMARY | 2024-01-05 23:01 | XMS_ITS | Continuity of Care Document ---
Author Organization [facility] Address [address] [place] [address]- Care Team Providers Care Hearing Impaired Teacher Name Role Phone Garrison Beatty MD Primary Care Physician Encounter [facility] Date(s): 10/23/20 - 11/22/20 [facility] [address] [place] [address]- [place] Allergies, Adverse Reactions, Alerts Substance Reaction [...] Vaccine (oldterm) 03/08/00 Given 1Result Comment: [12/09/2017] [id number] 2Result Comment: [04/15/2015 Uncharted] Pt had influenza vaccine 12/12/15- 3Admin Note: PT had the flu shot done at [facility] Flu clinic 4Admin Note: GIVEN IN CLINIC [facility] 5Admin Note: [facility] 6Admin Note: [facility] 7Admin Note: GIVEN AT OUTSIDE CLINIC 8Admin Note: per pt rcvd elsewhere Medications carvedilol 6.25 mg oral tablet 6.25 mg, 1, tablet, By Mouth, 2 times a day, # 60 tablet, Refills 11, Tot. Refills 11, Maintenance,08/07/20 13:57:00 EDT, [id number] Partial fill upon patient request if the prescription is for a schedule II... Start Date: 08/07/20 Stop Date: 08/02/21 Status: Ordered clopidogrel 75 mg oral tablet 1, tablet, By Mouth, Daily, # 30 tablet, Refills 5, Tot. Refills 0, Maintenance, 10/04/20 11:01:00 EDT, Route to Pharmacy Electronically, [facility]ORE 86456, 160, cm, 08/30/20 13:24:00 EDT, Height, 56.5, [...] Maintenance, 10/25/2111:27:00 EDT, Route to Pharmacy Electronically, [facility]/pharmacy #[id number], Partial fill upon patient request if the [...] Weight Start Date: 10/04/20 Status: Ordered potassium potassium, Refills 0, Maintenance, [...] 4colo 2004 nl, rpt 2013 5MI 2019 87313; no repeat due to age 7restarted HCTZ; will monitor 8holding hctz ;recheck 9Antibody positive 10thought to be medication related by neurology Social History Social History Type Response Smoking Status Never smoker; Tobacc o user in household: No entered on: 07/05/14 Sex
--- OUTSIDE RECORDS SUMMARY | 2024-01-05 23:01 | XMS_ITS | Continuity of Care Document ---
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 Name Role Phone Garrison Beatty MD Primary Care Physician [facility]s): 01/20/22 - 02/19/22 [facility] [address] [place], [place] [address] Attending Physician: Renetta Strickland Admitting Physician: AdmtrRenetta [...] 23-valent vaccine 6 07/29/21 Given SARS-CoV-2 mRNA (fsnrrov-prhd-gvvud) vax 06/21/21 Recorded SARS-CoV-2 (COVID-19) mRNA BNT-162b2 [...] Toxoid Vaccine (oldterm) 03/08/00 Given 1Result Comment: [facility]# [id number] 2Result Comment: [12/09/2017] [id number] 3Result Comment: [04/15/2015 Uncharted] Pt had influenza vaccine 12/12/15- 4Admin Note: PT had the flu shot done at [facility] Flu clinic 5Admin Note: GIVEN IN CLINIC [facility] 6Result Comment: [facility]# [id number] 7Admin Note: [employer] [facility] 8Admin Note: [employer] [facility] 9Admin Note: GIVEN AT OUTSIDE CLINIC 10Admin Note: per pt rcvd elsewhere Medications amLODIPine 5 mg oral tablet See Instructions, TAKE 1 TABLET BY MOUTH EVERY DAY, # 30 tablet, 5 Refills, Maintenance, 01/01/22 15:18:00 EDT, [facility], 158, cm, 11/27/21 8:19:00 EDT, Height, 63, [...] 16:34:00 EST, [id number] fill upon patient request if the prescription is for a schedule II... Start Date: 02/02/22 Status: Ordered clopidogrel 75 mg oral tablet 1, tablet, By Mouth, Daily, # 30 tablet, Refills 0, Maintenance, 11/06/21 16:29:00 EDT, Route to Pharmacy Electronically, [facility] STORE 94625, 158, cm, 10/02/21 9:27:00 EDT, Height, 63, kg, 07/28/21 1:38:00 EDT, Dry Weight Start Date: 11/06/21 Status: Ordered donepezil 5 mg oral tablet See Instructions, TAKE 1 TABLET BY MOUTH AT BEDTIME, # 30 tablet, Refills 5, Tot. Refills 5, 01/23/22 15:56:00 EST, Instructions Replace Required Details, [id number], cm, 01/21/22 13:27:00 EST, Height, 63... Start Date: 01/23/22 Status: Ordered Lasix 40 mg oral tablet 40 mg, 1, tablet, By Mouth, Daily, # 30 tablet, Refills 11, Tot. Refills 11, Maintenance, 03/12/21 16:08:00 EST, [id number] Partial fill upon patient request if the prescription is for a schedule II opioid dr... Start Date: 03/12/21 Stop Date: 03/07/22 Status: Ordered lisinopril 10 mg oral tablet 10 mg, 1, tablet, By Mouth, 2 times a day, # 180 tablet, Refills 3, Tot. Refills 3, Maintenance, 03/07/22 16:09:00 EST, [id number] fill upon patientrequest if the prescription is for a schedule II op... Start Date: 03/07/22 Status: Ordered magnesium oxide 400 mg oral tablet 1 tablet = 400 mg, By Mouth, Daily, for 30 days, # 30 tablet, 11 Refills, Acute 03/07/22 16:11:00 EST, 03/12/21 16:11:00 EST, Tablet, [facility]/pharmacy #[id number], Partial fill upon patient [...] Refills, Maintenance, 01/23/22 15:28:00 EST, ER Capsule, [facility]/pharmacy #[id number], Partial fill upon patient [...] 4colo 2004 nl, rpt 2013 5MI 2019 47596; no repeat due to age 7restarted HCTZ; will monitor 8holding hctz ;recheck 9Per discharge note 03/05/21: Long-standing schizoaffective disorder, bipolar type. 10Antibody positive 11thought to be medication related by neurology Social History Social History Type Response Smoking Status Never (less than 100 in lifetime) entered on: 12/02/20 Sex Patient Care team information Care Team Personnel Name: Carley Vazquez RN Position: [facility] RN Member Role: Primary Care Nurse Name: Annia Iniguez NP Position: [facility] Associate Professional Member Role: Primary Care Nurse Address: Address: [address] [place] [address]- [place] Name: Garrison Beatty MD Position: [facility] Primary Care Physician Member Role: PCP Address: Address: [address] [place] [address]- [place] Name: David Knapp MD Position: [facility] Renal MD Member Role: Lifetime Consulting Physician Address: Address: [address] [facility] [address] [facility] [place] [address]- [place] Name: Zabrina Reyes RN Position: S RN Member Role: Primary Care Nurse Name: Melissa Ugarte RN Position: S RN Member Role: Primary Care Nurse Care Team Related Persons Name: HANSLIVIA Address: [address] [address] Name: DINA MAXWELL Address: [address] [address]
--- OUTSIDE RECORDS SUMMARY | 2024-01-05 23:01 | XMS_ITS | Continuity of Care Document ---
Author Organization [facility] Address [address] [place] [address]- Care Team Providers Care Computer Operations Analyst Name Role Phone Garrison Beatty MD Primary Care Physician [facility] Date[facility]s): 04/30/20 - 05/30/20 [facility] [address] [place] [address]- Allergies, Adverse Reactions, Alerts Substance Reaction Severity [...] Vaccine (oldterm) 03/08/00 Given 1Result Comment: [12/09/2017] [id number] 2Result Comment: [04/15/2015 Uncharted] Pt had influenza vaccine 12/12/15- 3Admin Note: PT had the flu shot done at [facility] Flu clinic 4Admin Note: GIVEN IN CLINIC [facility] 5Admin Note: [facility] 6Admin Note: [facility] 7Admin Note: GIVEN AT OUTSIDE [...] 04/29/20 7:44:00 EST, Route to Pharmacy Electronically, [facility], 160, cm, 04/25/20 9:48:00 EST, Height, 62, [...] to Pharmacy Electronically, [facility]/pharmacy #[id number], Partial fill upon patient requestif the prescription is for a schedule II opioid symone... Start Date: 04/29/20 Stop Date: 04/24/21 Status: Ordered lisinopril 5 mg oral tablet 5 mg, 1, tablet, By Mouth, Daily, # 30 tablet, Refills 3, Tot. Refills 3, Maintenance, 04/25/20 10:36:00 EST, Route to Pharmacy Electronically, [facility]/pharmacy #[id number], Partial fill upon patient request if [...] to Pharmacy Electronically, [facility]/pharmacy #[id number], Partial fill upon patient request if the prescription is for a schedule II opioid drug... Start Date: 03/20/20 Status: Ordered potassium chloride 10 mEq oral tablet, extended release 2 tablet = 20 mEq, By Mouth, Daily in AM, # 60 tablet, 5 Refills, Maintenance, 04/29/20 9:23:00 EST, ER Tablet, [facility]/pharmacy #[id number], Partial fill upon patient request if [...] 4colo 2003 nl, rpt 2013 5MI 2019 57[address]; no repeat due to age 7restarted HCTZ; will monitor 8holding hctz ;recheck 9Antibody positive 10thought to be medication related by neurology Social History Social History Type Response Smoking Status Never smoker; Tobacc o user in household: No entered on: 07/05/14 Sex
--- OUTSIDE RECORDS SUMMARY | 2024-01-05 23:01 | XMS_ITS | Continuity of Care Document ---
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 6Admin Note: [facility] 7Admin Note: GIVEN AT OUTSIDE CLINIC 8Admin Note: per pt rcvd elsewhere Medications amiodarone 200 mg oral tablet 200 mg, 1, tablet, By Mouth, 2 times a day, # 60 tablet, Refills 5, Tot. Refills 5, Maintenance, 03/20/20 10:44:00 EST, Route to Pharmacy Electronically, [facility]/pharmacy #[id number], Partial fill upon patientrequest if the prescription [...] 04/09/20 7:42:00 EST, Route to Pharmacy Electronically, [facility]/pharmacy #[id number], Partial fill upon patientrequest if the prescription [...] 03/20/20 10:44:00 EST, Route to Pharmacy Electronically, [facility]/pharmacy #[id number], Partial fill upon patient request if the prescription is for a schedule II opioid drug... Start Date: 03/20/20 Status: Ordered potassium chloride 10 mEq oral tablet, extended release 2 tablet = 20 mEq, By Mouth, Daily in AM, # 60 tablet, 5 Refills, Maintenance, 03/20/20 10:44:00 EST, ER Tablet, [id number] [...] 4colo 2004 nl, rpt 2013 5MI 2019 [address]; no repeat due to age 7restarted HCTZ; will monitor 8holding hctz ;recheck 9Antibody positive 10thought to be medication related by neurology Social History Social History Type Response Smoking Status Never smoker; Tobacc o user in household: No entered on: 07/05/14 Sex
--- OUTSIDE RECORDS SUMMARY | 2024-01-05 23:01 | XMS_ITS | Continuity of Care Document ---
Author Organization [facility] Address [address] [place] [address]- Care Team Providers Care Director Of Software Development Name Role Phone Garrison Beatty MD Primary Care Physician Encounter [facility] Date(s): 10/02/21 - 10/09/21 [facility] Adult [address] [place] [address]- Encounter Diagnosis H/O psychosis(Discharge Diagnosis) - 10/02/21 Chronic hypokalemia(Discharge Diagnosis) - 10/02/21 Attending Physician: Garrison Beatty MD Allergies, Adverse Reactions, Alerts Substance Reaction Severity Status cephalexin Active nitrofurantoin Active sulfADIAZINE Ciprofloxacin Active statins MYALGIAS Active predniSONE SEVERE H/A Active valsartan 1 Active Macrobid Active 1dizziness Immunizations Given and Recorded Vaccine Date Status Refusal Reason pneumococcal 23-valent vaccine 1 07/29/21 Given SARS-CoV-2 mRNA (fzokedw-wqzp-suffg) vax 06/21/21 Recorded influenza virus vaccine, inactivated [...] Toxoid Vaccine (oldterm) 03/08/00 Given 1Result Comment: [facility]# [id number] 2Result Comment: [12/09/2017] [id number] 3Result Comment: [04/15/2015 Uncharted] Pt had influenza vaccine 12/12/15- 4Admin Note: PT had the flu shot done at [facility] Flu clinic 5Admin Note: GIVEN IN [facility]IC [facility] 6Admin Note: [employer] [facility] 7Admin Note: [employer] [facility] 8Admin Note: GIVEN AT OUTSIDE CLINIC 9Admin Note: per pt rcvd elsewhere Medications amLODIPine 5 mg oral tablet 5 mg, 1, tablet, By Mouth, Daily, # 30 tablet, Refills 11, Tot. Refills 11, Maintenance, 03/12/21 16:13:00 EST, Route to Pharmacy Electronically, [facility]/pharmacy #[id number], Partial fill upon patient requestif the prescription is for a schedule II opioid symone... Start Date: 03/12/21 Status: Ordered Aricept 5 mg oral tablet 5 mg, 1, tablet, By Mouth, Daily at bedtime, # 30 tablet, Refills 11, Tot. Refills 11, Maintenance,03/12/21 16:10:00 EST, [facility] tablet, Refills 1, Tot. Refills 1, Maintenance, 08/25/21 10:37:00 EDT, Route to Pharmacy Electronically, [facility]/pharmacy #[id number], Partial fill upon patient request if the prescription is for a schedule II o... Start Date: 08/25/21 Status: Ordered clopidogrel 75 mg oral tablet 1, tablet, By Mouth, Daily, # 30 tablet, Refills 11, Tot. Refills 11, Maintenance, 03/12/21 16:09:00 EST, Route to Pharmacy Electronically, [facility]/pharmacy #[id number], 157, cm, 03/12/21 13:26:00 EST, [...] 03/12/21 16:09:00 EST, Route to Pharmacy Electronically, [facility]/pharmacy #[id number], Partial fill upon patient request if the prescription is for a schedule II o... Start Date: 03/12/21 Stop Date: 03/07/22 Status: Ordered magnesium oxide 400 mg oral tablet 1 tablet = 400 mg, By Mouth, Daily, for 30 days, # 30 tablet, 11 Refills, Acute 03/07/22 16:11:00 EST, 03/12/21 16:11:00 EST, Tablet, [facility]/pharmacy #[id number], Partial fill [...] Refills, Maintenance, 03/12/21 16:07:00 EST, ER Capsule, [facility]/pharmacy #[id number], Partial fill [...] 4colo 2004 nl, rpt 2013 5MI 2019 65123; no repeat due to age 7restarted HCTZ; will monitor 8holding hctz ;recheck 9Per discharge note 03/05/21: Long-standing schizoaffective disorder, bipolar type. 10Antibody positive 11thought to be medication related by neurology Diagnosis Diagnosis Type Effective Dates Health Status Clinical Service Informant H/O psychosis Discharge Diagnosis 10/02/21 Chronic hypokalemia Discharge Diagnosis 10/02/21 Vital Signs Most recent to oldest [Reference Range]: 1 Height 158 cm (10/02/21 9:27 AM) Weight 65.0 kg (10/02/21 9:27 AM) Oxygen Saturation [94-100 %] 98 % (10/02/21 9:27 AM) Pulse Rate [55-90 bpm] 71 bpm (10/02/21 9:27 AM) Body Mass Index [18.5-24.99] 26.04 *H* (10/02/21 9:27 AM) Blood Pressure [90-138/55-84 mm Hg] 136/ 78mm Hg (10/02/21 9:27 AM) Mode of Delivery (Oxygen) Room air (10/02/21 9:27 AM) Blood pressure sites Arm, left (10/02/21 9:27 AM) Weight Obtained Via Standing scale (10/02/21 9:27 AM) Social History Social History Type Response Smoking Status Never (less than 100 in lifetime) entered on: 12/02/20 Sex
--- OUTSIDE RECORDS SUMMARY | 2024-01-05 23:02 | XMS_ITS | Continuity of Care Document ---
Author Organization [facility] Weston Yon lt Address [address] [place] [address]- Care Team Providers Care Sr. Payroll Processor Name Role Phone Garrison Beatty MD Primary Care Physician Encounter [facility] Date(s): 07/23/20 - 07/30/20 [facility] Adult [address] [place] [address]- Encounter Diagnosis Anxiety(Discharge Diagnosis) - 07/24/20 Attending Physician: Garrison Beatty MD Allergies, Adverse [...] Vaccine (oldterm) 03/08/00 Given 1Result Comment: [12/09/2017] [address]-34 2Result Comment: [04/15/2015 Uncharted] Pt had influenza vaccine 12/12/15- 3Admin Note: PT had the flu shot done at [facility] Flu clinic 4Admin Note: GIVEN IN CL[facility]IC [facility] 5Admin Note: [employer] [facility] 6Admin Note: [employer] [facility] 7Admin Note: GIVEN AT OUTSIDE CLINIC 8Admin Note: per pt rcvd elsewhere Medications carvedilol 3.125 mg oral tablet See Instructions, TAKE 1 TABLET BY MOUTH TWICE A DAY, # 60 tablet, Refills 11, Tot. Refills 11, Maintenance, Instructions Replace Required Details, Route to Pharmacy Electronically, [id number], 160, cm, 07/05/20 7:47:00 EDT, Height, 62, kg, 02/26... Start Date: 07/05/20 Status: Ordered dicyclomine 10 mg oral capsule 1 capsule = 10 mg, By Mouth, 4 times a day, # 56 capsule, 0 Refills, Maintenance, 07/24/20 12:45:00EDT, Capsule, [facility]/pharmacy #[id number], Partial fill upon patient request if the prescription is for a schedule II opioid drug., 160, cm, 07/23/20 12:27:00 E... Start Date: 07/24/20 Stop Date: 08/07/20 Status: Ordered Lasix 40 mg oral tablet 40 mg, 1, tablet, By Mouth, Daily, # 30 tablet, Refills 11, Tot. Refills 11, Maintenance, 04/29/20 9:22:00 EST, Route to Pharmacy Electronically, [facility]/pharmacy #[id number], Partial fill upon patient requestif [...] 03/20/20 10:44:00 EST, Route to Pharmacy Electronically, [facility]/pharmacy #[id number], Partial fill upon patient request if the prescription is for a schedule II opioid drug... Start Date: 03/20/20 Status: Ordered potassium chloride 10 mEq oral tablet, extended release 2 tablet = 20 mEq, By Mouth, Daily in AM, # 60 tablet, 5 Refills, Maintenance, 04/29/20 9:23:00 EST, ER Tablet, [facility]/pharmacy #[id number], Partial fill upon patient request if the prescription is for a schedule II opioid drug., 160, cm, 04/29/20 8:53:00 EST,... Start Date: 04/29/20 Status: Ordered sacubitril-valsartan 24 mg-26 mg oral tablet 1 tablet, By Mouth, 2 times a day, Take one tablet by mouth twice daily, # 60 tablet, 6 Refills, Maintenance, 07/23/20 14:14:00 EDT, Tablet, [facility]/pharmacy #[id number], replaces valsartan, 1 tablet By [...] 4colo 2003 nl, rpt 2013 5MI 2019 [address]; no repeat due to age 7restarted HCTZ; will monitor 8holding hctz ;recheck 9Antibody positive 10thought to be medication related by neurology Diagnosis Diagnosis Type Effective Dates Health Status Clini mckenzie Service Informant Anxiety Discharge Diagnosis 07/24/20 Vital Signs Most recent to oldest [Reference Range]: 1 2 Height 160 cm (07/23/20 12:27 PM) 160 cm (07/23/20 12:17 PM) Weight 55.6 kg (07/23/20 12:17 PM) Oxygen Saturation [94-100 %] 98 % (07/23/20 12:17 PM) Pulse Rate [55-90 bpm] 81 bpm (07/23/20 12:17 PM) Body Mass Index [18.5-24.99] 21.72 (07/23/20 12:17 PM) Blood Pressure [90-138/55-84 mm Hg] 148/ 83mm Hg *H* (07/23/20 12:27 PM) 144/80mm Hg *H* (07/23/20 12:17 PM) Respiratory Rate [16-30 br/min] 12 br/mi n *L* (07/23/20 12:17 PM) Mode of Delivery (Oxygen) Room air (07/23/20 12:17 PM) Blood pressure sites Arm, left (07/23/20 12:27 PM) Arm, left (07/23/20 12:17 PM) Weight Obtained Via Standing scale (07/23/20 12:17 PM) Social History Social History Type Response Smoking Status Never smoker; Tobacc o user in household: No entered on: 07/05/14 Sex
--- OUTSIDE RECORDS SUMMARY | 2024-01-05 23:02 | XMS_ITS | Continuity of Care Document ---
Author Organization [facility] Yon lt Address [address] [place] [address]- Care Team Providers Care Die Casting Machine Setter Name Role Phone Jaci GOLD, Garrison Swan Primary Care Physician [facility]counter [facility] Date(s): 10/10/20 - 11/09/20 [facility] Adult [address] [place] [address]- Allergies, Adverse Reactions, Alerts Substance Reaction Severity [...] Vaccine (oldterm) 03/08/00 Given 1Result Comment: [12/09/2017] [address]-48 2Result Comment: [04/15/2015 Uncharted] Pt had influenza vaccine 12/12/15- 3Admin Note: PT had the flu shot done at [facility] Flu clinic 4Admin Note: GIVEN IN CLINIC [facility] 5Admin Note: [employer] [facility] 6Admin Note: [employer] [facility] 7Admin Note: GIVEN AT OUTSIDE CLINIC 8Admin Note: per pt rcvd elsewhere Medications carvedilol 6.25 mg oral tablet 6.25 mg, 1, tablet, By Mouth, 2 times a day, # 60 tablet, Refills 11, Tot. Refills 11, Maintenance,08/07/20 13:57:00 EDT, Route to Pharmacy Electronically, [facility]/pharmacy #[id number], Partial fill upon patient request if the prescription is for a schedule II... Start Date: 08/07/20 Stop Date: 08/02/21 Status: Ordered clopidogrel 75 mg oral tablet 1, tablet, By Mouth, Daily, # 30 tablet, Refills 5, Tot. Refills 0, Maintenance, 10/04/20 11:01:00 EDT, Route to Pharmacy Electronically, [id number], 160, cm, 08/30/20 13:24:00 EDT, Height, 56.5, kg, 07/18/20 15:54:00 EDT, Dry Weight Start Date: 10/04/20 Status: Ordered Lasix 40 mg oral tablet 40 mg, 1, tablet, By Mouth, Daily, # 30 tablet, Refills 11, Tot. Refills 11, Maintenance, 04/29/20 9:22:00 EST, Route to Pharmacy Electronically, [facility]/pharmacy #[id number], Partial fill upon patient requestif the prescription is for a schedule II opioid symone... Start Date: 04/29/20 Stop Date: 04/24/21 Status: Ordered lisinopril 2.5 mg oral tablet 2.5 mg, 1, tablet, By Mouth, Daily, # 30 tablet, Refills 11, Tot. Refills 11, Maintenance, 10/25/2111:27:00 EDT, Route to Pharmacy Electronically, [facility]/pharmacy #[id number], Partial fill upon patient request if the [...] 2008 4colo 2004 nl, rpt 2013 52019 63583; no repeat due to age 7restarted HCTZ; will monitor 8holding hctz ;recheck 9Antibody positive 10thought to be medication related by neurology Social History Social History Type Response Smoking Status Never smoker; Tobacc o user in household: No entered on: 07/05/14 Sex
--- OUTSIDE RECORDS SUMMARY | 2024-01-05 23:02 | XMS_ITS | Continuity of Care Document ---
Author Organization [facility] Weston Yon lt Address [address] [place] [address]- Care Team Providers Care Clock And Watch Assembler Name Role Phone Garrison Beatty MD Primary Care Physician [facility]counter [facility] Date(s): 03/18/20 - 03/25/20 [facility] Adult [address] [place] [address]- Encounter Diagnosis Benign Essential Hypertension(Discharge Diagnosis) - 03/18/20 Chest pain(Discharge Diagnosis) - 03/18/20 Attending Physician: Not on Staff, Attending MD [...] Vaccine (oldterm) 03/08/00 Given 1Result Comment: [12/09/2017] [id number] 2Result Comment: [04/15/2015 Uncharted] Pt had influenza vaccine 12/12/15- 3Admin Note: PT had the flu shot done at [facility] Flu [facility] 4Admin Note: GIVEN IN CLINIC [facility] 5Admin Note: [employer] [facility] 6Admin Note: [employer] [facility] 7Admin Note: GIVEN AT OUTSIDE CLINIC 8Admin Note: per pt rcvd elsewhere Medications amiodarone 200 mg oral tablet 200 mg, 1, tablet, By Mouth, 2 times a day, # 60 tablet, Refills 5, Tot. Refills 5, Maintenance, 03/20/20 10:44:00 EST, Route to Pharmacy Electronically, [facility]/pharmacy #[id number], Partial fill upon patientrequest if the prescription [...] EST, Route to Pharmacy Electronically, [facility]/pharmacy #[id number], Partial fill upon patient request if the [...] EST, Route to Pharmacy Electronically, [facility]/pharmacy #[id number], Partial fill upon patient request if the prescription is for a schedule II opioid drug... Start Date: 03/20/20 Status: Ordered potassium chloride 10 mEq oral tablet, extended release 2 tablet = 20 mEq, By Mouth, Daily in AM, # 60 tablet, 5 Refills, Maintenance, 03/20/20 10:44:00 EST, ER Tablet, [facility]/pharmacy #[id number], Partial fill upon patient request if [...] 4colo 2003 nl, rpt 2013 5MI 2019 66363; no repeat due to age 7restarted HCTZ; will monitor 8holding hctz ;recheck 9Antibody positive 10thought to be medication related by neurology Diagnosis Diagnosis Type Effective Dates Health Status Clinical Service Informant Benign Essential Hypertension Discharge Diagnosis 03/18/20 Chest pain Discharge Diagnosis 03/18/20 Vital Signs Most recent to oldest [Reference Range]: 1 Height 160 cm (03/18/20 10:03 AM) Social History Social History Type Response Smoking Status Never smoker; Tobacc o user in household: No entered on: 07/05/14 Sex
--- OUTSIDE RECORDS SUMMARY | 2024-01-05 23:02 | XMS_ITS | Continuity of Care Document ---
Author Organization [facility] Weston Yon lt Address [address] [place] [address]- Care Team Providers Care Document Management Technician Name Role Phone Jaci GOLD, Garrison Swan Primary Care Physician [facility] Date(s): 07/10/20 - 08/09/20 [facility] Adult [address] [place] [address]- Allergies, Adverse Reactions, Alerts Substance Reaction Severity [...] Vaccine (oldterm) 03/08/00 Given 1Result Comment: [12/09/2017] [id number] 2Result Comment: [04/15/2015 Uncharted] Pt had influenza vaccine 12/12/15- 3Admin Note: PT had the flu shot done at [facility] Flu clinic 4Admin Note: GIVEN IN CL[facility]IC [facility] 5Admin Note: [employer] [facility] 6Admin Note: [employer] [facility] 7Admin Note: GIVEN AT OUTSIDE CLINIC 8Admin Note: per pt rcvd elsewhere Medications carvedilol 6.25 mg oral tablet 6.25 mg, 1, tablet, By Mouth, 2 times a day, # 60 tablet, Refills 11, Tot. Refills 11, Maintenance,08/07/20 13:57:00 EDT, [facility], [facility] 0 Refills, Maintenance, 07/24/20 12:45:00EDT, Capsule, [facility]/pharmacy #[id number], Partial fill [...] 5 Refills, Maintenance, 08/09/20 13:00:00 EDT, Tablet, [facility]/pharmacy #[id number], Partial fill [...] 4colo 2003 nl, rpt 2013 5MI 2019 [address]95; no repeat due to age 7restarted HCTZ; will monitor 8holding hctz ;recheck 9Antibody positive 10thought to be medication related by neurology Social History Social History Type Response Smoking Status Never smoker; Tobacc o user in household: No entered on: 07/05/14 Sex
--- OUTSIDE RECORDS SUMMARY | 2024-01-05 23:02 | XMS_ITS | Continuity of Care Document ---
Author Organization [facility] Cayden Ontiveros Yon lt Address [address] [place] [address]- Care Team Providers Care Dip Stand Loader Name Role Phone Garrison Beatty MD Primary Care Physician [facility] Date(s): 12/05/19 - 12/12/19 [facility] Adult [address] [place] [address]- [facility] Attending Physician: Garrison Beatty MD Allergies, Adverse [...] Vaccine (oldterm) 03/08/00 Given 1Result Comment: [12/09/2017] [id number] 2Result Comment: [04/15/2015 Uncharted] Pt had influenza vaccine 12/12/15- 3Admin Note: PT had the flu shot done at [facility] Flu clinic 4Admin Note: GIVEN IN CLINIC [facility] 5Admin Note: [employer] [facility] 6Admin Note: [employer] 7Admin Note: GIVEN AT OUTSIDE CLINIC 8Admin [...] colo 2008 4colo 2003 nl, rpt 2013 94558; no repeat due to age 6restarted HCTZ; will monitor 7holding hctz ;recheck 8Antibody positive 9thought to be medication related by neurology Vital Signs Most recent to oldest [Reference Range]: 1 Height 158 cm (12/05/19 11:43 AM) Mode of Delivery (Oxygen) Room air (12/05/19 11:43 AM) Social History Social History Type Response Smoking Status Never smoker; Tobacc o user in household: No entered on: 07/05/14 Sex
--- OUTSIDE RECORDS SUMMARY | 2024-01-05 23:02 | XMS_ITS | Continuity of Care Document ---
Author Organization [facility] Address [address], [address], [address] [place] [address]- Care Team Providers Care Sound Controller Name Role Phone Jaci GOLD, Garrison Swan Primary Care Physician [facility]counter [facility] Date(s): 05/16/22 - 09/13/22 [facility] [address], [address], [address] [place] [address]- Attending Physician: Judith Kearney MD Admitting Physician: Judith Kearney MD Allergies, Adverse Reactions, Alerts Substance Reaction Severity Status cephalexin Active nitrofurantoin Active sulfADIAZINE Ciprofloxacin Active predniSONE SEVERE H/A Active valsartan 1 Active statins MYALGIAS Active 1dizziness Immunizations Given and Recorded Vaccine Date Status Refusal Reason [id number] 12y+ bivalent booster vax 12/13/21 Recorded influenza [...] 23-valent vaccine 6 07/29/21 Given SARS-CoV-2 mRNA ([id number]) vax 06/21/21 Recorded SARS-CoV-2 (COVID-19) mRNA BNT-162b2 [...] Vaccine (oldterm) 03/08/00 Given 1Result Comment: [facility]# [id number] 2Result Comment: [12/09/2017] [id number] 3Result Comment: [04/15/2015 Uncharted] Pt had influenza vaccine 12/12/15- 4Admin Note: PT had the flu shot done at [facility] Flu clinic 5Admin Note: GIVEN IN CLINIC [facility] 6Result Comment: [facility]# [id number] 7Admin Note: [employer] [facility] 8Admin Note: [employer] [facility] 9Admin Note: GIVEN AT OUTSIDE CLINIC 10Admin Note: per pt rcvd elsewhere Medications amLODIPine 5 mg oral tablet 1 tablet, By Mouth, Daily, # 30 tablet, 5 Refills, Maintenance, 04/17/22 19:41:00 EST, [id number], 158, cm, 02/27/22 13:27:00 EST, Height, 63, kg, 07/28/21 1:38:00 EDT, Dry Weight Start Date: 04/17/22 Status: Ordered aspirin 81 mg oral delayed release tablet 81 mg, 1, tablet, By Mouth, Daily, # 30 tablet, Refills 5, Tot. Refills 5, Maintenance, 03/26/22 11:58:00 EST, [facility], [id number], [...] 03/26/22 11:55:00 EST, [id number], 158, cm, 02/27/22 13:27:00 EST, Height, 63, kg, 07/28/21 1:38:00 EDT, Dry Weight Start Date: 03/26/22 Status: Ordered Daily Brielle oral tablet 1 tablet, By Mouth, Daily, # 30 tablet, 11 Refills, Maintenance, 03/18/22 11:57:00 EST, [facility], 30, TAKE 1 TABLET BY MOUTH EVERY DAY, 158, cm, 02/27/22 13:27:00 EST, Height, 63, kg, 221:38:00 EDT, Dry Weight Start Date: 03/18/22 Status: Ordered donepezil 5 mg oral tablet 1, tablet, By Mouth, Daily at bedtime, # 30 tablet, Refills 2, Maintenance, 05/25/22 16:50:00 EDT, Route to Pharmacy Electronically, [facility], 158, cm, 02/27/22 13:27:00 EST, Height, 63, kg, 07/28/21 1:38:00 EDT, Dry Weight Start Date: 05/25/22 Status: Ordered High Potency Vitamin D3 25 mcg (1000 intl units) oral capsule 1 capsule = 25 mcg, By Mouth, Daily, # 30 capsule, 5 Refills, Maintenance, 03/26/22 11:54:00 EST, [facility]/pharmacy #[id number], Partial fill upon patient request if the prescription is for a schedule II opioiddrug., 158, cm, 02/27/22 13:27:00 EST, Height, 63,... Start Date: 03/26/22 Status: Ordered Lasix 40 mg oral tablet 40 mg, 1, tablet, By Mouth, Daily, # 30 tablet, Refills 5, Tot. Refills 5, Maintenance, 03/26/22 11:53:00 EST, [facility] 16:09:00 EST, Route to Pharmacy Electronically, [facility]/pharmacy #[id number], Partial fill upon patientrequest if [...] Maintenance, 01/23/22 15:28:00 EST, ER Capsule, [facility]/pharmacy #[id number], Partial fill upon patient request [...] 4colo 2004 nl, rpt 2013 5MI 2019 [address]61; no repeat due to age 7restarted HCTZ; [...] RN Position: [facility] RN Member Role: Primary Care Nurse Name: Annia Iniguez NP Position: [facility] Associate Professional Member Role: Primary Care Nurse Address: Address: [address] [place] [address]- [place] Name: Garrison Beatty MD Position: [facility] Physician - Primary Care Member Role: PCP Address: Address: [address] [place] [address]- [place] Name: David Knapp MD Position: [facility] Renal MD Member Role: Lifetime Consulting Physician Address: Address: [address] [facility] [place] [address]- [place] Name: Zabrina Reyes RN Position: S RN Member Role: Primary Care Nurse Name: Melissa Ugarte RN Position: S RN Member Role: Primary Care Nurse Care Team Related Persons Name: LIVIA MAXWELL Address: [address] [place] [address] Name: DINA MAXWELL Address: home [address] [place] [address]
--- OUTSIDE RECORDS SUMMARY | 2024-01-05 23:02 | XMS_ITS | Continuity of Care Document ---
Author Organization [facility] Address [address] [place] [address]- Care Team Providers Care Patient Service Specialist Name Role Phone Garrison Beatty MD Primary Care Physician [facility]counter [facility] Date(s): 07/17/20 - 08/16/20 [facility] [address] [place] [address]- Allergies, Adverse Reactions, Alerts Substance Reaction Severity [...] Vaccine (oldterm) 03/08/00 Given 1Result Comment: [12/09/2017] [id number] 2Result Comment: [04/15/2015 Uncharted] Pt had influenza vaccine 12/12/15- 3Admin Note: PT had the flu shot done at [facility] Flu clinic 4Admin Note: GIVEN IN CLINIC [facility] 5Admin Note: [employer] [facility] 6Admin Note: [employer] [facility] 7Admin Note: GIVEN AT OUTSIDE CLINIC 8Admin Note: per pt rcvd elsewhere Medications carvedilol 6.25 mg oral tablet 6.25 mg, 1, tablet, By Mouth, 2 times a day, # 60 tablet, Refills 11, Tot. Refills 11, Maintenance,08/07/20 13:57:00 EDT, Route to Pharmacy Electronically, [facility]/pharmacy #[id number], Partial fill [...] capsule, 0 Refills, Maintenance, 07/24/20 12:45:00EDT, Capsule, [facility]/pharmacy #[id number], Partial [...] EST, Route to Pharmacy Electronically, [facility]/pharmacy #[id number], Partial fill [...] EST, Route to Pharmacy Electronically, [facility]/pharmacy #[id number], Partial fill [...] 5 Refills, Maintenance, 08/09/20 13:00:00 EDT, Tablet, [facility]/pharmacy #[id number], Partial [...] 4colo 2004 nl, rpt 2013 5MI 2019 00454; no repeat due to age 7restarted HCTZ; will monitor 8holding hctz ;recheck 9Antibody positive 10thought to be medication related by neurology Social History Social History Type Response Smoking Status Never smoker; Tobacc o user in household: No entered on: 07/05/14 Sex
--- OUTSIDE RECORDS SUMMARY | 2024-01-05 23:02 | XMS_ITS | Continuity of Care Document ---
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 Name Role Phone Garrison Beatty MD Primary Care Physician Encounter [facility] Date(s): 05/26/22 - 06/25/22 [facility] [address] [place] [address]- Allergies, Adverse Reactions, Alerts Substance Reaction Severity [...] 23-valent vaccine 6 07/29/21 Given SARS-CoV-2 mRNA (mywombo-ornc-zgkyb) vax 06/21/21 Recorded SARS-CoV-2 (COVID-19) mRNA BNT-162b2 [...] Toxoid Vaccine (oldterm) 03/08/00 Given 1Result Comment: [facility]# [id number] 2Result Comment: [12/09/2017] [id number] 3Result Comment: [04/15/2015 Uncharted] Pt had influenza vaccine 12/12/15- 4Admin Note: PT had the flu shot done at [facility] Flu clinic 5Admin Note: GIVEN IN CLINIC [facility] 6Result Comment: [facility]# [id number] 7Admin Note: [facility] 8Admin Note: [facility] 9Admin Note: GIVEN AT OUTSIDE CLINIC 10Admin Note: per pt rcvd elsewhere Medications amLODIPine 5 mg oral tablet 1 tablet, By Mouth, Daily, # 30 tablet, 5 Refills, Maintenance, 04/17/22 19:41:00 EST, [id number], 158, cm, 02/27/22 13:27:00 EST, Height, 63, kg, 07/28/21 1:38:00 EDT, Dry Weight Start Date: 04/17/22 Status: Ordered aspirin 81 mg oral delayed release tablet 81 mg, 1, tablet, By Mouth, Daily, # 30 tablet, Refills 5, Tot. Refills 5, Maintenance, 03/26/22 11:58:00 EST, Route to Pharmacy Electronically, [facility]/pharmacy #[id number], Partial fill upon patient request if the prescription is for a schedule II opioid drug... Start Date: 03/26/22 Status: Ordered carvedilol 6.25 mg oral tablet 6.25 mg, 1, tablet, By Mouth, 2 times a day, # 180 tablet, Refills 3, Tot. Refills 3, Maintenance, 02/02/22 16:34:00 EST, Route to Pharmacy Electronically, [facility]/pharmacy #[id number], Partial fill upon patient request if the prescription is for a schedule II... Start Date: 02/02/22 Status: Ordered clopidogrel 75 mg oral tablet 1, tablet, By Mouth, Daily, # 30 tablet, Refills 5, Tot. Refills 5, Maintenance, 03/26/22 11:55:00 EST, Route to Pharmacy Electronically, [facility]/pharmacy #[id number], 158, cm, 02/27/22 13:27:00 EST, Height, 63, kg, 07/28/21 1:38:00 EDT, Dry Weight Start Date: 03/26/22 Status: Ordered Daily Brielle oral tablet 1 tablet, By Mouth, Daily, # 30 tablet, 11 Refills, Maintenance, 03/18/22 11:57:00 EST, [id number], 30, TAKE 1 TABLET BY MOUTH EVERY DAY, 158, cm, 02/27/22 13:27:00 EST, Height, 63, kg, 221:38:00 EDT, Dry Weight Start Date: 03/18/22 Status: Ordered donepezil 5 mg oral tablet 1, tablet, By Mouth, Daily at bedtime, # 30 tablet, Refills 2, Maintenance, 05/25/22 16:50:00 EDT, Route to Pharmacy Electronically, [id number], 158, cm, 02/27/22 13:27:00 EST, Height, 63, kg, 07/28/21 1:38:00 EDT, Dry Weight Start Date: 05/25/22 Status: Ordered High Potency Vitamin D3 25 mcg (1000 intl units) oral capsule 1 capsule = 25 mcg, By Mouth, Daily, # 30 capsule, 5 Refills, Maintenance, 03/26/22 11:54:00 EST, [facility]/pharmacy #[id number], Partial fill upon patient request if the prescription is for a schedule II opioiddrug., 158, cm, 02/27/22 13:27:00 EST, Height, 63,... Start Date: 03/26/22 Status: Ordered Lasix 40 mg oral tablet 40 mg, 1, tablet, By Mouth, Daily, # 30 tablet, Refills 5, Tot. Refills 5, Maintenance, 03/26/22 11:53:00 EST, Route to Pharmacy Electronically, [facility]/pharmacy #[id number], Partial fill upon patient request if the prescription is for a schedule II opioid drug... Start Date: 03/26/22 Stop Date: 09/22/22 Status: Ordered lisinopril 10 mg oral tablet 10 mg, 1, tablet, By Mouth, 2 times a day, # 180 tablet, Refills 3, Tot. Refills 3, Maintenance, 03/07/22 16:09:00 EST, Route to Pharmacy Electronically, [facility]/pharmacy #[id number], Partial fill upon patientrequest if [...] Refills, Maintenance, 01/23/22 15:28:00 EST, ER Capsule, [facility]/pharmacy #[id number], Partial fill upon patient request [...] 4colo 2004 nl, rpt 2013 5MI 2019 68358; no repeat due to age 7restarted HCTZ; [...] Member Role: Primary Care Nurse Address: Address: [address] [place] [address]- [place] Name: Garrison Beatty MD Position: [facility] Primary Care Physician Member Role: PCP Address: Address: [address] [place] [address]- [place] Name: David Knapp MD Position: [facility] Renal MD Member Role: Lifetime Consulting Physician Address: Address: [address] [facility] [place] [address]- [place] Name: Zabrina Reyes RN Position: [facility] RN Member Role: Primary Care Nurse Name: Melissa Ugarte RN Position: S RN Member Role: Primary Care Nurse Care Team Related Persons Name: LIVIA MAXWELL Address: [address] [place] [address] Name: DINA MAXWELL Address: [address] [place] [address]
--- OUTSIDE RECORDS SUMMARY | 2024-01-05 23:02 | XMS_ITS | Continuity of Care Document ---
Author Organization [facility] Address [address] [place] [address]- Care Team Providers Care Bell Maker Name Role Phone Jaci GOLD, Garrison Swan Primary Care Physician Encounter [facility] Date(s): 01/28/21 - 02/04/21 [facility] Adult [address] [place] [address]- Encounter Diagnosis Dizziness(Discharge Diagnosis) - 01/28/21 Globus sensation(Discharge Diagnosis) - 01/28/21 Attending Physician: Not on Staff, Attending MD [...] Vaccine (oldterm) 03/08/00 Given 1Result Comment: [12/09/2017] [id number] 2Result Comment: [04/15/2015 Uncharted] Pt had influenza vaccine 12/12/15[facility] 3Admin Note: PT had the flu shot done at [facility] 4Admin Note: GIVEN IN CLINIC [facility] 5Admin Note: [facility] 6Admin Note: [facility] 7Admin Note: GIVEN AT OUTSIDE [...] Route to Pharmacy Electronically, [facility]/pharmacy #[id number], Partial fill upon patient request if the prescription is for a schedule II... Start Date: 08/07/20 Stop Date: 08/02/21 Status: Ordered clopidogrel 75 mg oral tablet 1, tablet, By Mouth, Daily, # 30 tablet, Refills 5, Tot. Refills 0, Maintenance, 10/04/20 11:01:00 EDT, Route to Pharmacy Electronically, [id number], 160, cm, 08/30/20 13:24:00 EDT, Height, 56.5, kg, 07/18/20 15:54:00 EDT, Dry Weight Start Date: 10/04/20 Status: Ordered Lasix 40 mg oral tablet 40 mg, 1, tablet, By Mouth, Daily, # 30 tablet, Refills 11, Tot. Refills 11, Maintenance, 04/29/20 9:22:00 EST, Route to Pharmacy Electronically, [facility]/pharmacy #[id number], Partial fill upon patient requestif the prescription is for a schedule II opioid symone... Start Date: 04/29/20 Stop Date: 04/24/21 Status: Ordered lisinopril 2.5 mg oral tablet 2.5 mg, 1, tablet, By Mouth, Daily, # 30 tablet, Refills 11, Tot. Refills 11, Maintenance, 10/25/2111:27:00 EDT, Route to Pharmacy Electronically, [facility]/pharmacy #[id number], Partial fill upon patient request if [...] 4colo 2003 nl, rpt 2013 5MI 2019 [address]; no repeat due to age 7restarted HCTZ; will monitor 8holding hctz ;recheck 9Antibody positive 10thought to be medication related by neurology Diagnosis Diagnosis Type Effective Dates Health Status Cl inical Service Informant Dizziness Discharge Diagnosis 01/28/21 Globus sensation Discharge Diagnosis 01/28/21 Vital Signs Most recent to oldest [Reference Range]: 1 Height 157 cm (01/28/21 2:04 PM) Weight 58.6 kg (01/28/21 2:04 PM) Body Mass Index [18.5-24.99] 23.77 (01/28/21 2:04 PM) Temperature [96.8-100.4 DegF] 98.4 DegF (01/28/21 2:04 PM) Weight Obtained Via Standing scale (01/28/21 2:04 PM) Social History Social History Type Response Smoking Status Never (less than 100 in lifetime) entered on: 12/02/20 Sex
--- OUTSIDE RECORDS SUMMARY | 2024-01-05 23:02 | XMS_ITS | Continuity of Care Document ---
Author Organization [facility] Address [address] [place] [address]- Care Team Providers Care Photographic Lithographer Name Role Phone Jaci GOLD, Garrison Swan Primary Care Physician Encounter [facility] Date(s): 08/16/23 - 08/23/23 [facility] Adult [address] [place] [address]- Encounter Diagnosis Medicare annual wellness visit, subsequent(Discharge Diagnosis) - 08/16/23 Benign Essential Hypertension(Discharge Diagnosis) - 08/16/23 Chronic hypokalemia(Discharge Diagnosis) - 08/16/23 Hypercalcemia(Discharge Diagnosis) - 08/16/23 Hypercholesterolemia(Discharge Diagnosis) - 08/16/23 Hypothyroidism(Discharge Diagnosis) - 08/16/23 (HCC)Schizoaffective disorder(Discharge Diagnosis) - 08/16/23 Depression, major, recurrent, moderate(Discharge Diagnosis) - 08/16/23 Attending Physician: Catie Washington Allergies, Adverse Reactions, Alerts Substance Reaction Severity Status cephalexin Active nitrofurantoin Active sulfADIAZINE Ciprofloxacin Active predniSONE SEVERE H/A Active valsartan 1 Active statins MYALGIAS Active 1dizziness Immunizations Given and Recorded Vaccine Date Status Refusal Reason RSV vaccine, preF A-preF B, recombinant 03/23/23 R ecorded SARS-CoV-2(COVID-19)mRNA-LNP vac([id number]) 11/26/22 Recorded influenza virus vaccine, inactivated 11/05/22 [...] virus vaccine, inactivated 3 12/30/05 Gi cyn [id number] 12y+ bivalent booster vax 08/06/22 Recorded [id number] 12y+ bivalent booster vax 12/13/21 Recorded pneumococcal 23-valent vaccine 4 07/29/21 Given SARS-CoV-2 mRNA (cttiiew-sdcx-mgffd) vax 06/21/21 Recorded SARS-CoV-2 (COVID-19) mRNA BNT-162b2 [...] Toxoid Vaccine (oldterm) 03/08/00 Given 1Result Comment: [facility]# [id number] 2Result Comment: [12/09/2017] [id number] 3Admin Note: GIVEN IN CLINIC [facility] 4Result Comment: [facility]# [id number] 5Admin Note: [email or web address] 6Admin Note: [email or web address] 7Admin Note: GIVEN AT OUTSIDE CLINIC 8Admin Note: per pt rcvd elsewhere Medications amLODIPine 5 mg oral tablet 1 tablet, By Mouth, Daily, # 30 tablet, 5 Refills, Maintenance, 03/14/23 14:05:00 EST, [facility], 157.5, cm, 08/04/22 8:48:00 EDT, Height, 59.5, kg, 06/03/22 14:32:00 EDT, Dry Weight Start Date: 03/14/23 Status: Ordered Aspirin Low Dose 81 mg oral delayed release tablet 1 tablet, By Mouth, Daily, # 30 tablet, 5 Refills, Maintenance, 08/10/23 12:27:00 EDT, [facility], 157.5, cm, 06/22/23 15:03:00 EDT, Height, 59.5, kg, 06/03/22 14:32:00 EDT, Dry Weight Start Date: 08/10/23 Status: Ordered carvedilol 6.25 mg oral tablet 1, tablet, By Mouth, 2 times a day, # 180 tablet, Refills 1, Tot. Refills 1, Maintenance, 07/24/23 15:25:00 EDT, Route to Pharmacy Electronically, [facility]/pharmacy #[id number], 157.5, cm, 06/22/23 15:03:00 EDT, Height, 59.5, kg, 06/03/22 14:32:00 EDT, Dry Weight Start Date: 07/24/23 Status: Ordered Daily Brielle oral tablet 1 tablet, By Mouth, Daily, # 30 tablet, 11 Refills, Maintenance, 02/15/23 12:26:00 EST, [facility], 30, TAKE 1 TABLET BY MOUTH EVERY DAY, 157.5, cm, 08/04/22 8:48:00 EDT, Height, 59.5, kg, 06/03/22 14:32:00 EDT, Dry Weight Start Date: 02/15/23 Status: Ordered furosemide 40 mg oral tablet 1, tablet, By Mouth, Daily, # 30 tablet, Refills 5, Tot. Refills 5, Maintenance, 03/18/23 7:42:00 EST, Route to Pharmacy Electronically, [facility]/pharmacy #[id number], 157.5, cm, 08/04/22 8:48:00 EDT, Height, 59.5, kg, 06/03/22 14:32:00 EDT, Dry Weight Start Date: 03/18/23 Status: Ordered lisinopril 10 mg oral tablet 1, tablet, By Mouth, 2 times a day, # 180 tablet, Refills 3, Maintenance, 01/25/23 11:53:00 EST, Route to Pharmacy Electronically, [facility], 157.5, cm, 08/04/22 8:48:00 EDT, Height, 59.5, [...] capsule, 3 Refills, Maintenance, 02/11/23 7:48:00 EST, [facility] 06[facility], 157.5, cm, 08/04/22 8:48:00 EDT, Height, 59.5, kg, 06/03/22 14:32:00 EDT, Dry Weight Start Date: 02/11/23 Status: Ordered Vitamin D3 1000 intl units oral capsule 1 capsule, By Mouth, Daily, # 30 capsule, 5 Refills, Maintenance, 03/14/23 14:05:00 EST, [facility] 24460, 157.5, cm, 08/04/22 8:48:00 EDT, Height, 59.5, [...] 4colo 2004 nl, rpt 2013 5MI 2019 [address]; no repeat due to age 7restarted HCTZ; will monitor 8holding hctz ;recheck 9Per discharge note 03/05/21: Long-standing schizoaffective disorder, bipolar type. 10Antibody positive 11thought to be medication related by neurology Diagnosis Diagnosis Type Effective Dates Health Status Clinical Service Informant Medicare annual wellness visit, subsequent Discharge Diagnosis 08/16/23 Benign Essential Hypertension Discharge Diagnosis 08/16/23 Chronic hypokalemia Discharge Diagnosis 08/16/23 Hypercalcemia Discharge Diagnosis 08/16/23 Hypercholesterolemia Discharge Diagnosis 08/16/23 Hypothyroidism Discharge Diagnosis 08/16/23 (HCC)Schizoaffective disorder Discharge Diagnosis 08/16/23 Depression, major, recurrent, moderate Discharge Diagnosis 08/16/23 Vital Signs Most recent to oldest [Reference Range]: 1 Height 157.50 cm (08/16/23 12:48 PM) Weight 64.1 kg (08/16/23 12:48 PM) Oxygen Saturation [94-100 %] 98 % (08/16/23 12:48 PM) Pulse Rate [55-90 bpm] 65 bpm (08/16/23 12:48 PM) Body Mass Index [18.5-24.99 kg/m2] 25.84 kg/m2 *H* (08/16/23 12:48 PM) Blood Pressure [90-138/55-84 mm Hg] 128/ 68mm Hg (08/16/23 12:48 PM) Temperature [96.8-100.4 DegF] 98.7 DegF (08/16/23 12:48 PM) Mode of Delivery (Oxygen) Room air (08/16/23 12:48 PM) Blood pressure sites Arm, right (08/16/23 12:48 PM) Temperature Route Oral (08/16/23 12:48 PM) Weight Obtained Via Standing scale (08/16/23 12:48 PM) Social History Social History Type Response Smoking Status Never (less than 100 in lifetime) entered on: 12/02/20 Sex Note * Leann Mann: PERFORM Event Display: Patient Education/Instruction Authored Date: Ambulatory Adult Visit Summary [facility] [address] [address] Name: PERRIAnna MAXWELL : 1945?? Visit: 08/16/2023 12:41?? Ambulatory Visit Instructions ?? Your Care Team Primary Care Provider Catie Washington? This Visit Provider Catie Washington Your Diagnosis Medicare annual wellness visit, subsequent Benign Essential Hypertension Chronic hypokalemia Hypercalcemia Hypercholesterolemia Hypothyroidism (HCC)Schizoaffective disorder Depression, major, recurrent, moderate Vitals Signs Temperature: 98.7 DegF Height: 157.5 cm Pulse Rate: 65 bpm Weight: 64.1 kg Systolic Blood Pressure: 128 mm Hg Body Mass Index:??25.84 kg/m2??High Diastolic Blood Pressure: 68 mm Hg Body surface area: 1.67 Oxygen Saturation: 98 % ?? What to do next Future Orders CBC w/ Differential - Once, *Est. 10/13/22, Future Order?? Comprehensive Metabolic Panel - Once, *Est. 10/13/22, Future Order?? Lipid Panel - Once, *Est. 08/08/23, Future Order?? Thyroid Panel - Once, *Est. 10/13/22, Future Order?? CBC w/ Differential - Routine, Once, 08/16/23 12:56:00 EDT, Order for Today, [facility], Blood?? Comprehensive Metabolic Panel - Routine, Once, 08/16/23 12:56:00 EDT, Order for Today, [facility], Blood?? Lipid Panel - Routine, Once, 08/16/23 12:56:00 EDT, Order for Today, [facility], Blood?? TSH Rfx on Abnormal to Free T4 - Routine, Once, 08/16/23 12:56:00 EDT, Order for Today, [facility], Blood?? Medications The list below reflects the information in our records and provided by you today along with any changes made during this visit. Please continue your medications until treatment is completed or stopped by your provider. If this is different from the information you have or there are other questions,please contact the prescribing provider. What How Much When Instructions Unchanged Amlodipine (amLODIPine 5 mg oral tablet) 1 tab(s) Oral Daily Unchanged Aspirin (Aspirin Low Dose 81 mg oral delayed release tablet) 1 tab(s) Oral Daily Unchanged bifidobacterium-lactobacillus (Nature's Bounty Probiotic) 1 tab(s) Oral Daily Unchanged Carvedilol (carvedilol 6.25 mg oral tablet) 1 tab(s) Oral Twice a day Unchanged Cholecalciferol (Vitamin D3 1000 intl units oral capsule) 1 capsule Oral Daily Unchanged Furosemide (furosemide 40 mg oral tablet) 1 tab(s) Oral Daily Unchanged Lisinopril (lisinopril 10 mg oral tablet) 1 tab(s) Oral Twice a day Unchanged Magnesium Oxide (magnesium oxide 400 mg oral tablet) 1 tab(s) Oral Daily Unchanged Multivitamin (Daily Brielle oral tablet) 1 tab(s) Oral Daily Unchanged Olanzapine (ZyPREXA 5 mg oral tablet) 1 tab(s) Oral Daily Unchanged Potassium Chloride (potassium chloride 10 mEq oral capsule, extended release) 1 capsule Oral Daily ?? What How Much When Comments Stop Taking Clopidogrel (clopidogrel 75 mg oral tablet) 1 tab(s) Oral Daily Stop Taking Donepezil (donepezil 5 mg oral tablet) 1 tab(s) Oral Daily at Bedtime Test Performed Below is a partial list of the tests performed during your Visit. You may have had other tests and procedures not included in this list. Please discuss all test results with your provider. CBC w/ Differential?-- Results Pending -- Comprehensive Metabolic Panel?-- Results Pending -- Lipid Panel?-- Results Pending -- TSH Rfx on Abnormal to Free T4?-- Results Pending -- You will be contacted within 72 hours with your results. Medications and Immunizations Administered Medications Given During Visit No medications given during this visit.?? Allergies (NKA means No Known Allergies) cephalexin nitrofurantoin predniSONE??(SEVERE H/A) statins??(MYALGIAS) sulfADIAZINE??(Ciprofloxacin) valsartan Common Emergency Awareness Tips IS IT A [...] are strongly encouraged to quit. Please call [employer] [facility] at [phone] or [phone] ([phone]) or log in to [email or web address] for referrals to smoking cessation programs. ?? The National Suicide Prevention Hotline is available 28/09 if you or someone you know needs to find a reason to keep living. By calling 1-657-477-[employer] (2750) you'll be connected to a skilled, trained counselor at a crisis center in your area. [facility] [employer] [facility] You can view and manage your care through the patient portal or by using a health care umu of your choosing. [employer] is a website that allows you to securely view your medical information including your hospital discharge summary, office visit summaries, medications and follow-up visits. You can also request appointments, renew medications, and request access to your medical information using a health care umu of your choosing, or just ask a question. You can enroll at [email or web address] or register during your next office visit. [facility], in keeping with [facility] guidance, no longer requires face masks for staff, patientsor visitors in most situations. Similiar to time spent indoors at other locations, there is the chance that you were exposed to repiratory viruses during your time with us (such as flu or COVID-19). If you develop symptoms concerning for a viral respiratory infection, please seek testing (and treatment if indicated) from your medical provider or home test kit. ?? Disclaimer: The information provided is of a [...] different or additional instructions may be required. ?? If you have questions, please consult with your primary care provider or pharmacist, as appropriate. This information is not intended to serve as substitution for assessment and evaluation by a qualified health care provider. If you do not have a primary care provider, you may find a [facility] provider by calling [facility] [employer] [facility] at [phone]. Patient Care team information Care Team Personnel Name: Zabrina Prince RN Position: [facility] RN Member Role: Primary Care Nurse Name: Carley Vazquez RN Position: [facility] RN Member Role: Primary Care Nurse Name: Annia nIiguez NP Position: [facility] Associate Professional Member Role: Primary Care Nurse Name: Garrison Beatty MD Position: [facility] Physician - Primary Care Member Role: PCP Address: Address: [address] [place] [address]- Name: David Knapp MD Position: [facility] Renal MD Member Role: Lifetime Consulting Physician Address: Address: [address] [facility] [address] [facility] [address] [facility] [place] [address]- Name: Torito COONEY, Melissa Position: [facility] RN Member Role: Primary Care Nurse Care Team Related Persons Name: LIVIA MAXWELL Address: [address] [place] [address] Name: DINA MAXWELL Address: [address] [address]
--- OUTSIDE RECORDS SUMMARY | 2024-01-05 23:02 | XMS_ITS | Continuity of Care Document ---
Author Organization [facility] Yon lt Address [address] [place] [address]- Care Team Providers Care Finishing Range Feeder Name Role Phone Jaci GOLD, Garrison Swan Primary Care Physician [facility] Date[facility]s): 02/26/22 - 03/28/22 [facility] Adult [address] [place] [address]- Allergies, Adverse Reactions, Alerts Substance Reaction Severity [...] 23-valent vaccine 6 07/29/21 Given SARS-CoV-2 mRNA (jdlnekg-qzfd-pdhrd) vax 06/21/21 Recorded SARS-CoV-2 (COVID-19) mRNA BNT-162b2 [...] (oldterm) 03/08/00 Given 1Result Comment: [facility]# [id number] 2Result Comment: [12/09/2017] [id number] 3Result Comment: [04/15/2015 Uncharted] Pt had influenza vaccine 12/12/15- 4Admin Note: PT had the flu shot done at [facility] Flu clinic 5Admin Note: GIVEN IN CL[facility]IC [facility] 6Result Comment: [facility]# [id number] 7Admin Note: [facility] 8Admin Note: [facility] 9Admin Note: GIVEN AT OUTSIDE CLINIC 10Admin Note: per pt rcvd elsewhere Medications amLODIPine 5 mg oral tablet See Instructions, TAKE 1 TABLET BY MOUTH EVERY DAY, # 30 tablet, 5 Refills, Maintenance, 01/01/22 15:18:00 EDT, [facility] ST[id number], 158, cm, 11/27/21 8:19:00 EDT, Height, 63, kg, 07/28/21 1:38:00 EDT, Dry Weight Start Date: 01/01/22 Status: Ordered aspirin 81 mg oral delayed release tablet 81 mg, 1, tablet, By Mouth, Daily, # 30 tablet, Refills 5, Tot. Refills 5, Maintenance, 03/26/22 11:58:00 EST, Route to Pharmacy Electronically, [facility]/pharmacy #[id number], Partial fill upon patient request if the prescription is for a schedule II opioid drug... Start Date: 03/26/22 Status: Ordered carvedilol 6.25 mg oral tablet 6.25 mg, 1, tablet, By Mouth, 2 times a day, # 180 tablet, Refills 3, Tot. Refills 3, Maintenance, 02/02/22 16:34:00 EST, [id number] Partial fill upon patient request if the prescription is for a schedule II... Start Date: 02/02/22 Status: Ordered clopidogrel 75 mg oral tablet 1, tablet, By Mouth, Daily, # 30 tablet, Refills 5, Tot. Refills 5, Maintenance, 03/26/22 11:55:00 EST, [id number], [facility], cm, 02/27/22 13:27:00 EST, Height, 63, kg, 07/28/21 1:38:00 EDT, Dry Weight Start Date: 03/26/22 Status: Ordered Daily Brielle oral tablet 1 tablet, By Mouth, Daily, # 30 tablet, 11 Refills, Maintenance, 03/18/22 11:57:00 EST, [facility]ORE 05997, 30, TAKE 1 TABLET BY MOUTH EVERY DAY, 158, cm, 02/27/22 13:27:00 EST, Height, 63, kg, :38:00 EDT, Dry Weight Start Date: 03/18/22 Status: Ordered donepezil 5 mg oral tablet See Instructions, TAKE 1 TABLET BY MOUTH AT BEDTIME, # 30 tablet, Refills 5, Tot. Refills 5, 01/23/22 15:56:00 EST, Instructions Replace Required Details, [id number], cm, 01/21/22 13:27:00 EST, Height, 63... Start Date: 01/23/22 Status: Ordered High Potency Vitamin D3 25 mcg (1000 intl units) oral capsule 1 capsule = 25 mcg, By Mouth, Daily, # 30 capsule, 5 Refills, Maintenance, 03/26/22 11:54:00 EST, [id number] Partial fill upon patient request if the prescription is for a schedule II opioiddrug., 158, cm, 02/27/22 13:27:00 EST, Height, 63,... Start Date: 03/26/22 Status: Ordered Lasix 40 mg oral tablet 40 mg, 1, tablet, By Mouth, Daily, # 30 tablet, Refills 5, Tot. Refills 5, Maintenance, 03/26/22 11:53:00 EST, Route to Pharmacy Electronically, [facility]/pharmacy #[id number], Partial fill upon patient request if the prescription is for a schedule II opioid drug... Start Date: 03/26/22 Stop Date: 09/22/22 Status: Ordered lisinopril 10 mg oral tablet 10 mg, 1, tablet, By Mouth, 2 times a day, # 180 tablet, Refills 3, Tot. Refills 3, Maintenance, 03/07/22 16:09:00 EST, Route to Pharmacy Electronically, [facility]/pharmacy #[id number], Partial fill upon patientrequest if [...] Maintenance, 01/23/22 15:28:00 EST, ER Capsule, [facility]/pharmacy #[id number], Partial fill upon patient request [...] Team Personnel Name: Carley Vazquez RN Position: [facility] RN Member Role: Primary Care Nurse Name: Annia Iniguez NP Position: [facility] Associate Professional Member Role: Primary Care Nurse Address: Address: [address] [place] [address]- Name: Garrison Beatty MD Position: [facility] Primary Care Physician Member Role: PCP Address: Address: [address] [place] [address]- [place] Name: David Knapp MD Position: [facility] Renal MD Member Role: Lifetime Consulting Physician Address: Address: [address] [facility] [address] [facility] [place] [address]- Name: Zabrina Reyes RN Position: S RN Member Role: Primary Care Nurse Name: Melissa Ugarte RN Position: [facility] RN Member Role: Primary Care Nurse Care Team Related Persons Name: LIVIA MAXWELL Address: home [address] [place] [id number] Name: DINA MAXWELL Address: home [address] [place] [address]
--- OUTSIDE RECORDS SUMMARY | 2024-01-05 23:02 | XMS_ITS | Continuity of Care Document ---
Author Organization [facility] Address [address] [place] [address]- Care Team Providers Care Director Of District Office Name Role Phone Garrison Beatty MD Primary Care Physician Encounter [facility] Date(s): 01/07/22 - 02/06/22 [facility] [address] [place] [address]- Allergies, Adverse Reactions, Alerts Substance Reaction Severity [...] 23-valent vaccine 6 07/29/21 Given SARS-CoV-2 mRNA (yluemdo-hpab-mxpih) vax 06/21/21 Recorded SARS-CoV-2 (COVID-19) mRNA BNT-162b2 [...] Toxoid Vaccine (oldterm) 03/08/00 Given 1Result Comment: [facility]# [id number] 2Result Comment: [12/09/2017] [id number] 3Result Comment: [04/15/2015 Uncharted] Pt had influenza vaccine 12/12/15- 4Admin Note: PT had the flu shot done at [facility] Flu clinic 5Admin Note: GIVEN IN CL[facility]IC [facility] 6Result Comment: [facility]# [id number] 7Admin Note: [facility] 8Admin Note: [facility] 9Admin Note: GIVEN AT OUTSIDE CLINIC 10Admin Note: per pt rcvd elsewhere Medications amLODIPine 5 mg oral tablet See Instructions, TAKE 1 TABLET BY MOUTH EVERY DAY, # 30 tablet, 5 Refills, Maintenance, 01/01/22 15:18:00 EDT, [facility] [address], 158, cm, 11/27/21 8:19:00 EDT, Height, 63, [...] Pharmacy Electronically, [facility]/pharmacy #[id number], Partial fill upon patient request if the prescription is for a schedule II... Start Date: 02/02/22 Status: Ordered clopidogrel 75 mg oral tablet 1, tablet, By Mouth, Daily, # 30 tablet, Refills 0, Maintenance, 11/06/21 16:29:00 EDT, Route to Pharmacy Electronically, [facility] [id number], 158, cm, 10/02/21 9:27:00 EDT, Height, 63, kg, 07/28/21 1:38:00 EDT, Dry Weight Start Date: 11/06/21 Status: Ordered donepezil 5 mg oral tablet See Instructions, TAKE 1 TABLET BY MOUTH AT BEDTIME, # 30 tablet, Refills 5, Tot. Refills 5, 01/23/22 15:56:00 EST, Instructions Replace Required Details, Route to Pharmacy Electronically, [facility]/pharmacy #[id number], 158, cm, 01/21/22 13:27:00 EST, Height, 63... Start Date: 01/23/22 Status: Ordered Lasix 40 mg oral tablet 40 mg, 1, tablet, By Mouth, Daily, # 30 tablet, Refills 11, Tot. Refills 11, Maintenance, 03/12/21 16:08:00 EST, [id number] Partial fill upon patient request if the prescription is for a schedule II opioid dr... Start Date: 03/12/21 Stop Date: 03/07/22 Status: Ordered lisinopril 10 mg oral tablet 10 mg, 1, tablet, By Mouth, 2 times a day, # 180 tablet, Refills 3, Tot. Refills 3, Maintenance, 03/07/22 16:09:00 EST, Route to Pharmacy Electronically, [facility]/pharmacy #[id number], Partial fill upon patientrequest if the prescription is for a schedule II op... Start Date: 03/07/22 Status: Ordered magnesium oxide 400 mg oral tablet 1 tablet = 400 mg, By Mouth, Daily, for 30 days, # 30 tablet, 11 Refills, Acute 03/07/22 16:11:00 EST, 03/12/21 16:11:00 EST, Tablet, [facility]/pharmacy #[id number], Partial fill upon patient request if [...] Maintenance, 01/23/22 15:28:00 EST, ER Capsule, [facility]/pharmacy #[id number], Partial fill upon patient request if [...] 4colo 2003 nl, rpt 2013 5MI 2019 235[address]; no repeat due to age 7restarted HCTZ; [...] Nurse Name: Geetha MAYBERRY, Annia Gomes Position: [facility] Associate Professional Member Role: Primary Care Nurse Address: Address: [address] [place] [phone]- [place] Name: Garrison Beatty MD Position: [facility] Primary Care Physician Member Role: PCP Address: Address: [address] [place] [address]- [place] Name: David Knapp MD Position: [facility] Renal MD Member Role: Lifetime Consulting Physician Address: Address: [address] [facility] [address] [facility] [place] [address]- [place] Name: Zabrina Reyes RN Position: S RN Member Role: Primary Care Nurse Name: Melissa Ugarte RN Position: S RN Member Role: Primary Care Nurse Care Team Related Persons Name: LIVIA MAXWELL Address: [address] [address] Name: DINA MAXWELL Address: [address] [address]
--- OUTSIDE RECORDS SUMMARY | 2024-01-05 23:02 | XMS_ITS | Continuity of Care Document ---
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 Role Phone Delvis ALEXANDER, Catie Shelton Primary Care Physician [facility] Date(s): 07/15/23 - 08/14/23 [facility] Adult [address] [place] [address]- Allergies, Adverse Reactions, Alerts Substance Reaction Severity Status cephalexin Active nitrofurantoin Active sulfADIAZINE Ciprofloxacin Active predniSONE SEVERE H/A Active valsartan 1 Active statins MYALGIAS Active 1dizziness Immunizations Given and Recorded Vaccine Date Status Refusal Reason RSV vaccine, preF A-preF B, recombinant 03/23/23 R ecorded SARS-CoV-2(COVID-19)mRNA-LNP vac([id number]) 11/26/22 Recorded influenza virus vaccine, inactivated 11/05/22 [...] virus vaccine, inactivated 3 12/30/05 Gi cyn [id number] 12y+ bivalent booster vax 08/06/22 Recorded [id number]-[id number] 12y+ bivalent booster vax 12/13/21 Recorded pneumococcal 23-valent vaccine 4 07/29/21 Given SARS-CoV-2 mRNA (dywoffz-bfrz-hrjfu) vax 06/21/21 Recorded SARS-CoV-2 (COVID-19) mRNA BNT-162b2 [...] Vaccine (oldterm) 03/08/00 Given 1Result Comment: [facility]# [id number] 2Result Comment: [12/09/2017] [id number] 3Admin Note: GIVEN IN CL[facility]IC [facility] 4Result Comment: [facility]# [id number] 5Admin Note: [facility] 6Admin Note: [facility] 7Admin Note: GIVEN AT OUTSIDE CLINIC 8Admin Note: per pt rcvd elsewhere Medications amLODIPine 5 mg oral tablet 1 tablet, By Mouth, Daily, # 30 tablet, 5 Refills, Maintenance, 03/14/23 14:05:00 EST, [facility], 157.5, cm, 08/04/22 8:48:00 EDT, Height, 59.5, kg, 06/03/22 14:32:00 EDT, Dry Weight Start Date: 03/14/23 Status: Ordered Aspirin Low Dose 81 mg oral delayed release tablet 1 tablet, By Mouth, Daily, # 30 tablet, 5 Refills, Maintenance, 08/10/23 12:27:00 EDT, [id number], 157.5, cm, 06/22/23 15:03:00 EDT, Height, 59.5, kg, 06/03/22 14:32:00 EDT, Dry Weight Start Date: 08/10/23 Status: Ordered carvedilol 6.25 mg oral tablet 1, tablet, By Mouth, 2 times a day, # 180 tablet, Refills 1, Tot. Refills 1, Maintenance, 07/24/23 15:25:00 EDT, [id number].5, cm, 06/22/23 15:03:00 EDT, Height, 59.5, kg, 06/03/22 14:32:00 EDT, Dry Weight Start Date: 07/24/23 Status: Ordered clopidogrel 75 mg oral tablet 1, tablet, By Mouth, Daily, # 30 tablet, Refills 5, Tot. Refills 5, Maintenance, 03/26/22 11:55:00 EST, [id number], cm, 02/27/22 13:27:00 EST, Height, 63, kg, 07/28/21 1:38:00 EDT, Dry Weight Start Date: 03/26/22 Status: Ordered Daily Brielle oral tablet 1 tablet, By Mouth, Daily, # 30 tablet, 11 Refills, Maintenance, 02/15/23 12:26:00 EST, [facility] 11974, 30, TAKE 1 TABLET BY MOUTH EVERY DAY, 157.5, cm, 08/04/22 8:48:00 EDT, Height, 59.5, kg, 06/03/22 14:32:00 EDT, Dry Weight Start Date: 02/15/23 Status: Ordered donepezil 5 mg oral tablet 1, tablet, By Mouth, Daily at bedtime, # 30 tablet, Refills 2, Maintenance, 05/25/22 16:50:00 EDT, Route to Pharmacy Electronically, [facility] [address]158, 158, cm, 02/27/22 13:27:00 EST, Height, 63, kg, 07/28/21 1:38:00 EDT, Dry Weight Start Date: 05/25/22 Status: Ordered furosemide 40 mg oral tablet 1, tablet, By Mouth, Daily, # 30 tablet, Refills 5, Tot. Refills 5, Maintenance, 03/18/23 7:42:00 EST, Route to Pharmacy Electronically, [facility]/pharmacy #[id number], 157.5, cm, 08/04/22 8:48:00 EDT, Height, 59.5, kg, 06/03/22 14:32:00 EDT, Dry Weight Start Date: 03/18/23 Status: Ordered lisinopril 10 mg oral tablet 1, tablet, By Mouth, 2 times a day, # 180 tablet, Refills 3, Maintenance, 01/25/23 11:53:00 EST, Route to Pharmacy Electronically, [facility] 29566, 157.5, cm, 08/04/22 8:48:00 EDT, Height, 59.5, [...] capsule, 3 Refills, Maintenance, 02/11/23 7:48:00 EST, [facility] 10944, 157.5, cm, 08/04/22 8:48:00 EDT, Height, 59.5, kg, 06/03/22 14:32:00 EDT, Dry Weight Start Date: 02/11/23 Status: Ordered Vitamin D3 1000 intl units oral capsule 1 capsule, By Mouth, Daily, # 30 capsule, 5 Refills, Maintenance, 03/14/23 14:05:00 EST, [facility] 39394, 157.5, cm, 08/04/22 8:48:00 EDT, Height, 59.5, [...] 4colo 2004 nl, rpt 2013 5MI 2019 [address]; no repeat due to age 7restarted HCTZ; [...] Care Nurse Name: Annia Iniguez NP Position: [facility] Associate Professional Member Role: Primary Care Nurse Name: Catie Washington Position: [facility] PCO Associate Professional Member Role: PCP Address: Address: [address] [place] [address]- [place] Name: David Knapp MD Position: [facility] Renal MD Member Role: Lifetime Consulting Physician Address: Address: [address] [facility] [address] [facility] [place] [address]- [place] Name: Melissa Ugarte RN Position: [facility] RN Member Role: Primary Care Nurse Care Team Related Persons Name: LIVIA MAXWELL Address: [address] [place] [address] Name: DINA MAXWELL Address: home [address] [place] [address]
--- OUTSIDE RECORDS SUMMARY | 2024-01-05 23:02 | XMS_ITS | Continuity of Care Document ---
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 Role Phone Garrison Beatty MD Primary Care Physician Encounter [facility] Date(s): 02/27/20 - 03/06/[address] [address]- Encounter Diagnosis Acute ST elevation myocardial infarction (STEMI)(Final) - 03/06/20 Discharge Disposition: Transfer Longterm Care Attending Physician: aDvid Clark MD Admitting Physician: Tristin Pavon MD Referring Physician: Not on Staff, Referring [...] Vaccine (oldterm) 03/08/00 Given 1Result Comment: [12/09/2017] [id number] 2Result Comment: [04/15/2015 Uncharted] Pt had influenza vaccine 12/12/15- 3Admin Note: PT had the flu shot done at [facility] 4Admin Note: GIVEN IN CLINIC [facility] 5Admin Note: [employer] [facility] 6Admin Note: [employer] [facility] 7Admin Note: GIVEN AT OUTSIDE CLINIC 8Admin Note: per pt rcvd elsewhere Medications acetaminophen 325 mg oral tablet 975 mg, By Mouth, Every 6 hours, Refills 0, Maintenance, 03/06/20 12:41:00 EST, Partial fill upon patient request if the prescription is for a schedule II opioid drug. Start Date: 03/06/20 Status: Ordered amiodarone 200 mg oral tablet 200 mg, 1, tablet, By Mouth, 2 times a day, Refills 0, Maintenance, 03/06/20 12:42:00 EST, Partial fill upon patient request if the prescription is for a schedule II opioid drug. Start Date: 03/06/20 Status: Ordered aspirin 81 mg oral tablet, [...] Status: Ordered Coreg 12.5 mg oral tablet 3.125 mg, Tablet, By Mouth, 03/06/20 9:00:00 EST Start Date: 03/06/20 Stop Date: 03/06/20 Status: Completed Coreg 3.125 mg oral tablet 3.125 mg, [...] opioid drug. Start Date: 03/06/20 Status: Ordered guaiFENesin 100 mg/5 mL oral liquid 10 mL = 200 mg, By Mouth, 4 times a day, 0 Refills, Maintenance, 03/06/20 12:42:00 EST, Syrup, Partial fill upon patient request if the prescription is for a schedule II opioid drug. Start Date: 03/06/20 Status: Ordered Lasix 40 mg oral tablet 40 mg, 1, tablet, By Mouth, 2 times a day before breakfast and dinne, Refills 0, Maintenance, 03/06/20 12:42:00 EST, Partial fill upon patient request if the prescription is for a schedule II opioid drug. Start Date: 03/06/20 Status: Ordered Maalox Plus Liquid 15 mL, [...] tablet = 40 mg, By Mouth, Daily, 0 Refills, Maintenance, 03/06/20 12:42:00 EST, EC Tablet Start Date: 03/06/20 Status: Ordered Plavix 75 mg oral tablet 75 mg, 1, tablet, By Mouth, Daily, Refills 0, Maintenance, 03/06/20 12:42:00 EST, Partial fill uponpatient request if the prescription is for a schedule II opioid drug. Start Date: 03/06/20 Status: Ordered potassium chloride 10 mEq oral tablet, extended release 2 tablet = 20 mEq, By Mouth, Daily in AM, 0 Refills, Maintenance, 03/06/20 12:42:00 EST, ER Tablet,Partial fill upon patient request if the prescription is for a schedule II opioid drug. Start Date: 03/06/20 Status: Ordered Silvadene 50 Gm Topical 1 [...] colo 2008 4colo 2003 nl, rpt 2013 [address]; no repeat due to age 6restarted HCTZ; will monitor 7holding hctz ;recheck 8Antibody positive 9thought to be medication related by neurology Results Radiology Reports * Exam Date Time Procedure Performing Provider Status 03/03/20 2:10 PM Chest Portable Evonne Magaña; Tania (Verified) Notes: (Chest Portable) Reason For Exam: Tube Placement RESULT: Chest Portable Chest Portable Reason: Tube Placement COMPARISON: 03/02/2020 FINDINGS: LINES AND TUBES: Right IJ Davidson-Clayton catheter terminates in the main pulmonary artery. Other tubes have been removed. LUNGS AND PLEURA: Minor atelectasis at the lung bases. Trace pleural effusions. No pneumothorax. HEART, MEDIASTINUM AND CHARLIE: Heart is normal in size. Normal upper mediastinal and hilar contour. BONES AND SOFT TISSUES: No acute abnormality. IMPRESSION: Trace pleural effusions and minor atelectasis of lung bases. Right IJ Davidson-Clayton catheter terminates in the right pulmonary artery. WSN: [id number] Ordering Physician: Kanwal Campbell Dictated By: Zahida Jo MD Dictated Date/Time: 03/03/20 2:15 pm Reviewed By: Zahida Jo MD Signed By: Zahida Jo MD Signed Date/Time: 03/03/20 2:15 pm Transcribed By: PENNY Transcribed Date/Time: 03/03/20 2:13 pm * Exam Date Time Procedure Performing Provider Status 03/02/20 7:03 AM Chest Portable Zachery Santillan (Verified) Notes: (Chest Portable) Reason For Exam: S/P Cardiac Surgery RESULT: Chest Portable AP portable chest, INDICATION: Reason: S P Cardiac Surgery; Clinical Question(s): Pleural Effusion COMPARISON: yesterday CXR FINDINGS: LINES AND TUBES: There are bilateral chest tubes. Mediastinal drain in place. Endotracheal tube is 2.5 cm above the carleen. Davidson-Clayton catheter projects over the main pulmonary artery. NG tube ends in the stomach. LUNGS AND PLEURA AND MEDIASTINUM: There is no pneumothorax. There is small-sized left pleural effusion with adjacent atelectasis. Heart size is within normal limits. IMPRESSION: Worse aeration at the left lung base, with small left pleural effusion with adjacent atelectasis. WSN: [id number] Ordering Physician: Aileen Maddox Dictated By: Kathy Ferrara MD Dictated Date/Time: 03/02/20 3:12 pm Reviewed By: Kathy Ferrara MD Signed By: Kathy Ferrara MD Signed Date/Time: 03/02/20 3:12 pm Transcribed By: PENNY Transcribed Date/Time: 03/02/20 3:10 pm * Exam Date Time Procedure Performing Provider Status 03/01/20 6:59 AM Chest Portable Laurel Shaver (Verified) Notes: (Chest Portable) Reason For Exam: Chest tubes, IABP present;S/P Cardiac Surgery RESULT: Chest Portable Chest Portable Reason: S P Cardiac Surgery; Chest tubes, IABP present; Clinical Question(s): Pleural Effusion COMPARISON: 02/29/2020 FINDINGS: LINES AND TUBES: ET tube 2 cm above the carleen. Enteric tube courses below the level of the diaphragm. Bilateral thoracostomy tubes and mediastinal drain, unchanged. Right IJ approach pulmonary Davidson-Clayton catheter with tip in the right proximal pulmonary artery, unchanged. IABP approximately 1.5 cm below the carleen. LUNGS AND PLEURA: Trace left effusion slightly improved. Mild right basilar hazy opacity slightly improved. No pneumothorax. HEART, MEDIASTINUM AND CHARLIE: Unchanged BONES AND SOFT TISSUES: No acute abnormality. Status post median sternotomy. IMPRESSION: Lines and tubes as above including IABP positioned below the carleen. Trace left effusion and mild right basilar hazy opacity slightly improved. WSN: [id number] Ordering Physician: Kavon Jhaveri Dictated By: Lex Esteban MD Dictated Date/Time: 03/01/20 11:28 a Reviewed By: Lex Esteban MD Signed By: Lex Esteban MD Signed Date/Time: 03/01/20 11:28 am Transcribed By: PENNY Transcribed Date/Time: 03/01/20 11:23 am * Exam Date Time Procedure Performing Provider Status 02/29/20 1:55 PM Abdomen AP Grelha , Rossana; Auth (Ve rified) Notes: (Abdomen AP) Reason For Exam: check IABP lines, insertion at right groin looking for;Other: RESULT: XR Abdomen AP XR Abdomen AP INDICATION/CLINICAL QUESTION: Reason: Other:; check IABP lines, insertion at right groin looking for; Clinical Question(s): Other:. Other: COMPARISON: CT, 02/28/2020. Chest x-ray performed concurrently. FINDINGS: Bilateral femoral central lines are present, larger bore on the right. The distal IABP marker is seen at the level of L2-3. The superior marker is better seen on chest x-ray, though is noted to be below the carleen. Partially imaged is a Davidson-Clayton catheter, mediastinal drain, and left chest tube. Distal end of an enteric tube extends into the stomach. Teran balloon catheter is present. Multiple wires are seen over the patient. Bowel gas pattern is grossly unremarkable. Calcified uterine fibroids are noted. No acute osseous abnormality is seen. IMPRESSION: The IABP is better seen on chest x-ray. Other lines and tubes as described. WSN: [id number] Ordering Physician: Kavon Jhaveri Dictated By: Albania Castano MD Dictated Date/Time: 02/29/20 2:42 pm Reviewed By: Albania Castano MD Signed By: Albania Castano MD Signed Date/Time: 02/29/20 2:42 pm Transcribed By: PENNY Transcribed Date/Time: 02/29/20 2:36 pm * Exam Date Time Procedure Performing Provider Status 02/29/20 1:55 PM Chest Portable Rossana Valenzuela; Auth ( Verified) Notes: (Chest Portable) Reason For Exam: check distal marker for IABP; lost waveform;Line Placement RESULT: Chest Portable Chest Portable CLINICAL INDICATION: Reason: Line Placement; check distal marker for IABP; lost waveform COMPARISON: Multiple priors, most recently 02/29/2020. Comparison also made to chest CT, 02/28/2020. FINDINGS: IABP is low, about 1.7 cm below the carleen. This should be advanced so that the marker is2 cm above the head. ET tube, enteric tube, right internal central line, mediastinal, and bilateral chest (one on the right and 2 on the left parenchyma are unchanged and The cardiac silhouette is in stable in size. Mediastinal contour is stable with calcification of the arch. There is mild hilar and vascular prominence There is a small left pleural effusion, increased from earlier the same day. Mild hazy right basilar opacity, possibly minimal layering pleural fluid. There is no definite pneumothorax. No acute osseous abnormality is noted. IMPRESSION: 1. The IABP is low. This should be advanced about 4 cm. 2. There is mild central congestion with new small left pleural effusion and possible minimal rightlayering pleural fluid. WSN: [id number] Ordering Physician: Kavon Jhaveri Dictated By: Albania Castano MD Dictated Date/Time: 02/29/20 2:05 pm Reviewed By: Albania Castano MD Signed By: Albania Castano MD Signed Date/Time: 02/29/20 2:05 pm Transcribed By: PENNY Transcribed Date/Time: 02/29/20 2:01 pm * Exam Date Time Procedure Performing Provider Status 02/29/20 12:37 PM Chest Portable Yuval Bal; Auth (Verified) Notes: (Chest Portable) Reason For Exam: S/P Cardiac Surgery RESULT: Chest Portable Chest Portable CLINICAL INDICATION: Reason: S P Cardiac Surgery; Clinical Question(s): Other:; Cardiac Tamponade; Special Instructions: On Admission to [facility] COMPARISON: Prior radiographs, most recently 02/28/2020. FINDINGS: IABP is seen with tip at about the level of the carleen, slightly lower than prior. There is an endotracheal tube about 2.3 cm above the carleen. Enteric tube extends into the stomach, tip off the film. Bilateral chest tubes are seen, one on the right and 2 on the left, as well as a mediastinal drain. Right internal jugular Davidson-Clayton catheter is seen with tip in the main pulmonary outflowtract. The cardiac silhouette is within normal limits. Hilar and mediastinal contours are normal calcification of the aortic arch. There is mild bibasilar atelectasis. There is no significant effusion. There is no definite pneumothorax. No acute osseous abnormality is noted. IMPRESSION: 1. IABP is at about the level of the carleen, which is slightly lower than prior. Ideally, this should be about 2 cm above the carleen. 2. Other lines and tubes in appropriate position as described. 3. Mild bibasilar atelectasis. No definite pneumothorax. WSN: [id number] Ordering Physician: David Irwin Dictated By: Albania Castano MD Dictated Date/Time: 02/29/20 12:41 p Reviewed By: Albania Castano MD Signed By: Albania Castano MD Signed Date/Time: 02/29/20 12:41 pm Transcribed By: PENNY Transcribed Date/Time: 02/29/20 12:38 pm * Exam Date Time Procedure Performing Provider Status 02/28/20 5:16 PM Chest Portable Zoya Ott; Tania (Verified) Notes: (Chest Portable) Reason For Exam: IABP placement;Line Placement RESULT: Chest Portable Chest Portable Reason: Line Placement; IABP placement COMPARISON: Chest x-ray and chest CT from earlier today. FINDINGS: LINES AND TUBES: Position of the intra-aortic balloon pump marker is unchanged, located approximately 2 cm below thetop of the aortic arch and 1.8 cm above the carleen. LUNGS AND PLEURA: Stable diffuse hazy opacification throughout the right lung without confluent airspace opacity. Theleft lung is clear. Unchanged trace left pleural effusion. No pneumothorax. HEART, MEDIASTINUM AND CHARLIE: Heart is normal in size. Aorta is mildly calcified. BONES AND SOFT TISSUES: No acute abnormality. IMPRESSION: Stable position of the IABP marker. Unchanged diffuse opacification throughout the right lung, likely due to layering pleural effusion as seen on CT performed earlier today. WSN: [id number] Ordering Physician: Augustina Hebert Dictated By: Shaji Mahmood MD Dictated Date/Time: 02/28/20 5:23 pm Reviewed By: Shaji Mahmood MD Signed By: Shaji Mahmood MD Signed Date/Time: 02/28/20 5:23 pm Transcribed By: PENNY Transcribed Date/Time: 02/28/20 5:18 pm * Exam Date Time Procedure Performing Provider Status 02/28/20 7:04 AM Chest Portable Diamond Cruz; Auth ( Verified) Notes: (Chest Portable) Reason For Exam: Tube Placement RESULT: Chest Portable Chest Portable INDICATION: Status post cardiac catheterization. COMPARISON: Multiple priors, most recent 02/27/2020. FINDINGS: LINES AND TUBES: None. LUNGS AND PLEURA: New asymmetric diffuse haziness of the right lung. Minimal by basilar atelectasis. Normal pulmonary vasculature. No pleural effusion. No pneumothorax. HEART, MEDIASTINUM AND CHARLIE: Heart is normal in size. Aorta is calcified. BONES AND SOFT TISSUES: No acute abnormality. IMPRESSION: New diffuse haziness of the right lung. Repeat examination can be obtained to eliminate technical issue. I have personally reviewed the images and I agree with this report. WSN: [id number] Ordering Physician: Annetta Andrade Dictated By: Trudi Olmedo DO Dictated Date/Time: 02/28/20 11:30 a Reviewed By: Jayy Marrero MD Signed By: Jayy Marrero MD Signed Date/Time: 02/28/20 11:35 am Transcribed By: PENNY Transcribed Date/Time: 02/28/20 10:32 am * Exam Date Time Procedure Performing Provider Status 02/27/20 12:58 PM Chest 2 Views Fronta l and Lat Smita Jamison; Auth (Verified) Notes: (Chest 2 Views Frontal and Lat) Reason For Exam: Angina RESULT: Chest 2 Views Frontal and Lat Chest 2 Views Frontal and Lat CLINICAL INDICATION: Reason: Angina; Clinical Question(s): CHF COMPARISON: Chest x-ray, 01/22/2019. FINDINGS: The cardiac silhouette is within normal limits. There is mild calcification of the aorticarch. Hilar contours are normal. The right lung is clear. Minimal linear atelectasis or scarring isseen at the left lung base. The left lung is otherwise clear. There is no pneumothorax, pleural effusion, or evidence of CHF. No acute osseous abnormality is noted. Degenerative changes are seen in the thoracic spine with multilevel bridging anterior osteophytes. Calcification is also seen lateral to the left humeral head compatible with calcific tendinitis. IMPRESSION: No acute cardiopulmonary process WSN: [id number] Ordering Physician: Comfort Mccann Dictated By: Albania Castano MD Dictated Date/Time: 02/27/20 1:00 pm Reviewed By: Albania Castano MD Signed By: Albania Castano MD Signed Date/Time: 02/27/20 1:00 pm Transcribed By: PENNY Transcribed Date/Time: 02/27/20 12:59 pm Vital Signs Most recent to oldest [Reference Range]: 1 2 3 Height 160 cm (03/06/20 8:32 AM) 160 cm (03/06/20 4:17 AM) 160 cm (03/05/20 11:02 PM) Weight 64.7 kg (03/06/20 4:17 AM) 67.7 kg (03/05/20 3:25 AM) 68.4 kg (03/04/20 2:38 AM) Oxygen Saturation [94-100 %] 99 % (03/06/20 8:32 AM) 96 % (03/06/20 4:17 AM) 95 % (03/05/20 11:02 PM) Pulse Rate [55-90 bpm] 74 bpm (03/06/20 9:58 AM) 74 bpm (03/06/20 8:32 AM) 73 bpm (03/06/20 4:17 AM) Body Mass Index [18.5-24.99] 26.72 *H* (03/04/20 2:38 AM) 24.22 (02/27/20 8:52 PM) Blood Pressure [90-138/55-84 mm Hg] 131/71mm Hg (03/06/20 9:58 AM) 131/71mm Hg (03/06/20 8:32 AM) 129/72mm Hg (03/06/20 4:17 AM) Respiratory Rate [16-30 br/min] 16 br/min (03/06/20 8:32 AM) 18 br/min (03/06/20 4:17 AM) 18 br/min (03/05/20 11:02 PM) Temperature [96.8-100.4 DegF] 97.9 DegF (03/06/20 8:32 AM) 98.0 DegF (03/06/20 4:17 AM) 98.5 DegF (03/05/20 11:02 PM) Liters per Minute 4 L/min (03/03/20 10:00 AM) 4 L/min (03/03/20 9:00 AM) 4 L/min (03/03/20 8:00 AM) Mode of Delivery (Oxygen) Room air (03/06/20 8:32 AM) Room air (03/06/20 4:17 AM) Room air (03/05/20 11:02 PM) Blood pressure sites Arm, left (03/06/20 4:17 AM) Arm, left (03/05/20 11:02 PM) Arm, left (03/05/20 7:35 PM) Temperature Route Oral (03/06/20 8:32 AM) Oral (03/06/20 4:17 AM) Oral (03/05/20 11:02 PM) Dry Weight 62 kg (02/27/20 8:52 PM) Weight Obtained Via Bed scale (03/06/20 4:17 AM) Bed scale (03/05/20 3:25 AM) Bed scale (03/04/20 2:38 AM) Social History Social History Type Response Smoking Status Never smoker; Tobacc o user in household: No entered on: 07/05/14 Sex
--- OUTSIDE RECORDS SUMMARY | 2024-01-05 23:02 | XMS_ITS | Continuity of Care Document ---
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 Silver Recovery Operator Name Role Phone Jaci GOLD, Garrison Swan Primary Care Physician [phone] Encounter [facility] Date(s): 10/04/20 - 11/03/20 [facility] Adult [address] [place] [address]- Allergies, Adverse Reactions, Alerts Substance Reaction Severity [...] Vaccine (oldterm) 03/08/00 Given 1Result Comment: [12/09/2017] [id number] 2Result Comment: [04/15/2015 Uncharted] Pt had influenza vaccine 12/12/15- 3Admin Note: PT had the flu shot done at [facility] Flu clinic 4Admin Note: GIVEN IN CL[facility]IC [facility] 5Admin Note: [employer] [facility] 6Admin Note: [employer] [facility] 7Admin Note: GIVEN AT OUTSIDE CLINIC 8Admin Note: per pt rcvd elsewhere Medications carvedilol 6.25 mg oral tablet 6.25 mg, 1, tablet, By Mouth, 2 times a day, # 60 tablet, Refills 11, Tot. Refills 11, Maintenance,08/07/20 13:57:00 EDT, Route to Pharmacy Electronically, [facility]/pharmacy #[id number], Partial fill upon patient request if the prescription is for a schedule II... Start Date: 08/07/20 Stop Date: 08/02/21 Status: Ordered clopidogrel 75 mg oral tablet 1, tablet, By Mouth, Daily, # 30 tablet, Refills 5, Tot. Refills 0, Maintenance, 10/04/20 11:01:00 EDT, Route to Pharmacy Electronically, [id number], 160, cm, 08/30/20 13:24:00 EDT, Height, 56.5, kg, 07/18/20 15:54:00 EDT, Dry Weight Start Date: 10/04/20 Status: Ordered Lasix 40 mg oral tablet 40 mg, 1, tablet, By Mouth, Daily, # 30 tablet, Refills 11, Tot. Refills 11, Maintenance, 04/29/20 9:22:00 EST, Route to Pharmacy Electronically, [facility]/pharmacy #[id number], Partial fill upon patient requestif the prescription is for a schedule II opioid symone... Start Date: 04/29/20 Stop Date: 04/24/21 Status: Ordered lisinopril 2.5 mg oral tablet 2.5 mg, 1, tablet, By Mouth, Daily, # 30 tablet, Refills 11, Tot. Refills 11, Maintenance, 10/25/2111:27:00 EDT, Route to Pharmacy Electronically, [facility]/pharmacy #[id number], Partial fill upon patient request if the [...] 2008 4colo 2004 nl, rpt 2013 52019 [id number]; no repeat due to age 7restarted HCTZ; will monitor 8holding hctz ;recheck 9Antibody positive 10thought to be medication related by neurology Social History Social History Type Response Smoking Status Never smoker; Tobacc o user in household: No entered on: 07/05/14 Sex
--- OUTSIDE RECORDS SUMMARY | 2024-01-05 23:02 | XMS_ITS | Continuity of Care Document ---
Author Organization [facility] Address [address] [place] [address]- Care Team Providers Care Tapper Balance Wheel Screw Hole Name Role Phone Jaci GOLD, Garrison Swan Primary Care Physician Encounter [facility] Date(s): 08/07/21 - 09/06/21 [facility] Adult [address] [place] [address]- Allergies, Adverse Reactions, Alerts Substance Reaction Severity Status cephalexin Active nitrofurantoin Active sulfADIAZINE Ciprofloxacin Active predniSONE SEVERE H/A Active valsartan 1 Active Macrobid Active statins MYALGIAS Active 1dizziness Immunizations Given and Recorded Vaccine Date Status Refusal Reason pneumococcal 23-valent vaccine 1 07/29/21 Given SARS-CoV-2 mRNA ([id number]) vax 06/21/21 Recorded influenza virus vaccine, inactivated [...] Toxoid Vaccine (oldterm) 03/08/00 Given 1Result Comment: [facility]# [id number] 2Result Comment: [12/09/2017] [id number] 3Result Comment: [04/15/2015 Uncharted] Pt had influenza vaccine 12/12/15- 4Admin Note: PT had the flu shot done at [facility] Flu clinic 5Admin Note: GIVEN IN CLINIC [facility] 6Admin Note: [employer] [facility] 7Admin Note: [employer] [facility] 8Admin Note: GIVEN AT OUTSIDE CLINIC 9Admin Note: per pt rcvd elsewhere Medications amLODIPine 5 mg oral tablet 5 mg, 1, tablet, By Mouth, Daily, # 30 tablet, Refills 11, Tot. Refills 11, Maintenance, 03/12/21 16:13:00 EST, Route to Pharmacy Electronically, [facility]/pharmacy #[id number], Partial fill upon patient requestif the prescription is for a schedule II opioid symone... Start Date: 03/12/21 Status: Ordered Aricept 5 mg oral tablet 5 mg, 1, tablet, By Mouth, Daily at bedtime, # 30 tablet, Refills 11, Tot. Refills 11, Maintenance,03/12/21 16:10:00 EST, Route to Pharmacy Electronically, [facility]/pharmacy #[id number], Partial fill upon patient request [...] 08/25/21 10:37:00 EDT, Route to Pharmacy Electronically, [facility]/pharmacy #[id number], Partial fill upon patient request if the prescription is for a schedule II o... Start Date: 08/25/21 Status: Ordered clopidogrel 75 mg oral tablet 1, tablet, By Mouth, Daily, # 30 tablet, Refills 11, Tot. Refills 11, Maintenance, 03/12/21 16:09:00 EST, Route to Pharmacy Electronically, [facility]/pharmacy #[id number], 157, cm, 03/12/21 13:26:00 EST, Height,60, kg, 01/20/21 16:03:00 EST, Dry Weight Start Date: 03/12/21 Status: Ordered Lasix 40 mg oral tablet 40 mg, 1, tablet, By Mouth, Daily, # 30 tablet, Refills 11, Tot. Refills 11, Maintenance, 03/12/21 16:08:00 EST, Route to Pharmacy Electronically, [facility]/pharmacy #[id number], Partial fill upon patient request if the prescription is for a schedule II opioid dr... Start Date: 03/12/21 Stop Date: 03/07/22 Status: Ordered lisinopril 10 mg oral tablet 10 mg, 1, tablet, By Mouth, 2 times a day, # 60 tablet, Refills 11, Tot. Refills 11, Maintenance, 03/12/21 16:09:00 EST, Route to Pharmacy Electronically, [facility]/pharmacy #[id number], Partial fill upon patient request if the prescription is for a schedule II o... Start Date: 03/12/21 Stop Date: 03/07/22 Status: Ordered magnesium oxide 400 mg oral tablet 1 tablet = 400 mg, By Mouth, Daily, for 30 days, # 30 tablet, 11 Refills, Acute 03/07/22 16:11:00 EST, 03/12/21 16:11:00 EST, Tablet, [facility]/pharmacy #[id number], Partial fill upon patient request [...] Maintenance, 03/12/21 16:07:00 EST, ER Capsule, [facility]/pharmacy #[id number], Partial fill upon patient request [...] 4colo 2004 nl, rpt 2013 5MI 2019 82118; no repeat due to age 7restarted HCTZ; will monitor 8holding hctz ;recheck 9Antibody positive 10thought to be medication related by neurology Social History Social History Type Response Smoking Status Never (less than 100 in lifetime) entered on: 12/02/20 Sex
--- OUTSIDE RECORDS SUMMARY | 2024-01-05 23:02 | XMS_ITS | Continuity of Care Document ---
Author Organization [facility] Weston Yon lt Address [address] [place] [address]- Care Team Providers Care Library Media Specialist Name Role Phone Garrison Beatty MD Primary Care Physician [facility]20 - 01/16/21 [facility] Adult [address] [place] [address]- Attending Physician: Admtr, Ar8 Allergies, Adverse Reactions, Alerts Substance Reaction Severity Status cephalexin Active nitrofurantoin Active Macrobid Active statins MYALGIAS Active sulfADIAZINE Ciprofloxacin Active predniSONE SEVERE H/A Active Immunizations Given [...] Vaccine (oldterm) 03/08/00 Given 1Result Comment: [12/09/2017] [address]-89 2Result Comment: [04/15/2015 Uncharted] Pt had influenza vaccine 12/12/15- 3Admin Note: PT had the flu shot done at [facility] Flu clinic 4Admin Note: GIVEN IN CLINIC [facility] 5Admin Note: Ready [facility] 6Admin Note: [employer] [facility] 7Admin Note: GIVEN AT OUTSIDE [...] Route to Pharmacy Electronically, [facility]/pharmacy #[id number], Partial fill upon patient request if the prescription is for a schedule II... Start Date: 08/07/20 Stop Date: 08/02/21 Status: Ordered clopidogrel 75 mg oral tablet 1, tablet, By Mouth, Daily, # 30 tablet, Refills 5, Tot. Refills 0, Maintenance, 10/04/20 11:01:00 EDT, Route to Pharmacy Electronically, [facility] STORE 46196, 160, cm, 08/30/20 13:24:00 EDT, Height, 56.5, kg, 07/18/20 15:54:00 EDT, Dry Weight Start Date: 10/04/20 Status: Ordered Lasix 40 mg oral tablet 40 mg, 1, tablet, By Mouth, Daily, # 30 tablet, Refills 11, Tot. Refills 11, Maintenance, 04/29/20 9:22:00 EST, [id number] Partial fill upon patient requestif the prescription is for a schedule II opioid symone... Start Date: 04/29/20 Stop Date: 04/24/21 Status: Ordered lisinopril 2.5 mg oral tablet 2.5 mg, 1, tablet, By Mouth, Daily, # 30 tablet, Refills 11, Tot. Refills 11, Maintenance, 10/25/2111:27:00 EDT, [facility], [facility] [...] 4colo 2003 nl, rpt 2013 5MI 2019 34698; no repeat due to age 7restarted HCTZ; will monitor 8holding hctz ;recheck 9Antibody positive 10thought to be medication related by neurology Social History Social History Type Response Smoking Status Never (less than 100 in lifetime) entered on: 12/02/20 Sex
--- OUTSIDE RECORDS SUMMARY | 2024-01-05 23:02 | XMS_ITS | Continuity of Care Document ---
Author Organization [facility] Yon lt Address [address] [place] [address]- Care Team Providers Care Test Developer Name Role Phone Jaci GOLD, Garrison Swan Primary Care Physician [phone] [facility] 04[facility]23/22 - 05/23/22 [facility] Adult [address] [place] [address]- Allergies, Adverse Reactions, Alerts Substance Reaction Severity [...] 23-valent vaccine 6 07/29/21 Given SARS-CoV-2 mRNA (tsscsph-cdjv-onmed) vax 06/21/21 Recorded SARS-CoV-2 (COVID-19) mRNA BNT-162b2 [...] Toxoid Vaccine (oldterm) 03/08/00 Given 1Result Comment: [facility]# [id number] 2Result Comment: [12/09/2017] [id number] 3Result Comment: [04/15/2015 Uncharted] Pt had influenza vaccine 12/12/15- 4Admin Note: PT had the flu shot done at [facility] Flu clinic 5Admin Note: GIVEN IN CLINIC [facility] 6Result Comment: [facility]# [id number] 7Admin Note: [place] [facility] 8Admin Note: [place] [facility] 9Admin Note: GIVEN AT OUTSIDE CLINIC 10Admin Note: per pt rcvd elsewhere Medications amLODIPine 5 mg oral tablet 1 tablet, By Mouth, Daily, # 30 tablet, 5 Refills, Maintenance, 04/17/22 19:41:00 EST, [facility] STORE 60423, 158, cm, 02/27/22 13:27:00 EST, Height, 63, kg, 07/28/21 1:38:00 EDT, Dry Weight Start Date: 04/17/22 Status: Ordered aspirin 81 mg oral delayed release tablet 81 mg, 1, tablet, By Mouth, Daily, # 30 tablet, Refills 5, Tot. Refills 5, Maintenance, 03/26/22 11:58:00 EST, Route to Pharmacy Electronically, [facility]/pharmacy #[id number], Partial fill upon patient request if the [...] 03/26/22 11:55:00 EST, Route to Pharmacy Electronically, [facility]/pharmacy #[id number], 158, cm, 02/27/22 13:27:00 EST, Height, 63, kg, 07/28/21 1:38:00 EDT, Dry Weight Start Date: 03/26/22 Status: Ordered Daily Brielle oral tablet 1 tablet, By Mouth, Daily, # 30 tablet, 11 Refills, Maintenance, 03/18/22 11:57:00 EST, [facility] STORE 16784, 30, TAKE 1 TABLET BY MOUTH EVERY [...] 5 Refills, Maintenance, 03/26/22 11:54:00 EST, [facility]/pharmacy #[id number], Partial fill upon patient request if the prescription is for a schedule II opioiddrug., 158, cm, 02/27/22 13:27:00 EST, Height, 63,... Start Date: 03/26/22 Status: Ordered Lasix 40 mg oral tablet 40 mg, 1, tablet, By Mouth, Daily, # 30 tablet, Refills 5, Tot. Refills 5, Maintenance, 03/26/22 11:53:00 EST, [facility] 4colo 2004 nl, rpt 2013 5MI 2019 [address]22; no repeat due to age 7restarted HCTZ; will monitor 8holding hctz ;recheck 9Per discharge note 03/05/21: Long-standing schizoaffective disorder, bipolar type. 10Antibody positive 11thought to be medication related by neurology Social History Social History Type Response Smoking Status Never (less than 100 in lifetime) entered on: 12/02/20 Sex Patient Care team information Care Team Personnel Name: Carley Vazquez RN Position: [facility] RN Member Role: Primary Care Nurse Name: Annia Iniguez NP Position: [facility] Associate Professional Member Role: Primary Care Nurse Address: Address: [address] [place] [phone]- [place] Name: Garrison Beatty MD Position: [facility] Primary Care Physician Member Role: PCP Address: Address: [address] [place] [address]- [place] Name: Ra GOLD, David Position: [facility] Renal MD Member Role: Lifetime Consulting Physician Address: Address: [address] [place] [address] [address] [facility] [place] [address]- [place] Name: Zabrina Reyes RN Position: S RN Member Role: Primary Care Nurse Name: Melissa Ugarte RN Position: S RN Member Role: Primary Care Nurse Care Team Related Persons Name: LIVIA MAXWELL Address: home [address] [place] [address] Name: DINA MAXWELL Address: [address] [place] [address]
--- OUTSIDE RECORDS SUMMARY | 2024-01-05 23:02 | XMS_ITS | Continuity of Care Document ---
Author Organization [facility] Yon lt Address [address] [place] [address]- Care Team Providers Care Naturalization Examiner Name Role Phone Jaci GOLD, Garrison Swan Primary Care Physician [facility]): 07[facility]24[facility]23 - 08/23/23 [facility] Adult [address] [place] [address]- Allergies, Adverse Reactions, Alerts Substance Reaction Severity Status cephalexin Active nitrofurantoin Active sulfADIAZINE Ciprofloxacin Active predniSONE SEVERE H/A Active valsartan 1 Active statins MYALGIAS Active 1dizziness Immunizations Given and Recorded Vaccine Date Status Refusal Reason RSV vaccine, preF A-preF B, recombinant 03/23/23 R ecorded SARS-CoV-2(COVID-19)mRNA-LNP vac([id number]) 11/26/22 Recorded influenza virus vaccine, inactivated 11/05/22 [...] virus vaccine, inactivated 3 12/30/05 Gi cyn [id number] 12y+ bivalent booster vax 08/06/22 Recorded [id number] 12y+ bivalent booster vax 12/13/21 Recorded pneumococcal 23-valent vaccine 4 07/29/21 Given SARS-CoV-2 mRNA (xpnlluq-zosg-fxanm) vax 4/16/22 Recorded SARS-CoV-2 (COVID-19) mRNA BNT-162b2 [...] Toxoid Vaccine (oldterm) 03/08/00 Given 1Result Comment: [facility]# [id number] 2Result Comment: [12/09/2017] [id number] 3Admin Note: GIVEN IN CLINIC [facility] 4Result Comment: [facility]# [id number] 5Admin Note: [facility] 6Admin Note: [facility] 7Admin Note: GIVEN AT OUTSIDE CLINIC 8Admin Note: per pt rcvd elsewhere Medications amLODIPine 5 mg oral tablet 1 tablet, By Mouth, Daily, # 30 tablet, 5 Refills, Maintenance, 03/14/23 14:05:00 EST, [facility] STORE 10070, 157.5, cm, 08/04/22 8:48:00 EDT, Height, 59.5, kg, 06/03/22 14:32:00 EDT, Dry Weight Start Date: 03/14/23 Status: Ordered Aspirin Low Dose 81 mg oral delayed release tablet 1 tablet, By Mouth, Daily, # 30 tablet, 5 Refills, Maintenance, 08/10/23 12:27:00 EDT, [facility], 157.5, cm, 06/22/23 15:03:00 EDT, Height, 59.5, kg, 06/03/22 14:32:00 EDT, Dry Weight Start Date: 08/10/23 Status: Ordered carvedilol 6.25 mg oral tablet 1, tablet, By Mouth, 2 times a day, # 180 tablet, Refills 1, Tot. Refills 1, Maintenance, 07/24/23 15:25:00 EDT, [id number] 157.5, cm, 06/22/23 15:03:00 EDT, Height, 59.5, kg, 06/03/22 14:32:00 EDT, Dry Weight Start Date: 07/24/23 Status: Ordered Daily Brielle oral tablet 1 tablet, By Mouth, Daily, # 30 tablet, 11 Refills, Maintenance, 02/15/23 12:26:00 EST, [facility] STORE 78128, 30, TAKE 1 TABLET BY MOUTH EVERY DAY, 157.5, cm, 08/04/22 8:48:00 EDT, Height, 59.5, kg, 06/03/22 14:32:00 EDT, Dry Weight Start Date: 02/15/23 Status: Ordered furosemide 40 mg oral tablet 1, tablet, By Mouth, Daily, # 30 tablet, Refills 5, Tot. Refills 5, Maintenance, 03/18/23 7:42:00 EST, [id number] 157.5, cm, 08/04/22 8:48:00 EDT, Height, 59.5, kg, 06/03/22 14:32:00 EDT, Dry Weight Start Date: 03/18/23 Status: Ordered lisinopril 10 mg oral tablet 1, tablet, By Mouth, 2 times a day, # 180 tablet, Refills 3, Maintenance, 01/25/23 11:53:00 EST, Route to Pharmacy Electronically, [facility] STORE 03073, 157.5, cm, 08/04/22 8:48:00 EDT, Height, 59.5, [...] Refills, Maintenance, 02/11/23 7:48:00 EST, [facility] 800[facility], 157.5, cm, 08/04/22 8:48:00 EDT, Height, 59.5, kg, 06/03/22 14:32:00 EDT, Dry Weight Start Date: 02/11/23 Status: Ordered Vitamin D3 1000 intl units oral capsule 1 capsule, By Mouth, Daily, # 30 capsule, 5 Refills, Maintenance, 03/14/23 14:05:00 EST, [facility] STORE 66678, 157.5, cm, 08/04/22 8:48:00 EDT, Height, 59.5, [...] 4colo 2004 nl, rpt 2013 5MI 2019 64899; no repeat due to age 7restarted HCTZ; will monitor 8holding hctz ;recheck 9Per discharge note 03/05/21: Long-standing schizoaffective disorder, bipolar type. 10Antibody positive 11thought to be medication related by neurology Social History Social History Type Response Smoking Status Never (less than 100 in lifetime) entered on: 12/02/20 Sex Patient Care team information Care Team Personnel Name: Suresh COONEY, Zabrina Position: [facility] RN Member Role: Primary Care Nurse Name: Carley Vazquez RN Position: [facility] RN Member Role: Primary Care Nurse Name: Geetha MAYBERRY, Annia Gomes Position: [facility] Associate Professional Member Role: Primary Care Nurse Name: Jaci GOLD, Garrison Swan Position: [facility] Physician - Primary Care Member Role: PCP Address: Address: [address] [place] [address]- [place] Name: David Knapp MD Position: [facility] Renal MD Member Role: Lifetime Consulting Physician Address: Address: [address] [place] [address] [address] [facility] [place] [place] [address]- [place] Name: Torito COONEY, Melissa Position: [facility] RN Member Role: Primary Care Nurse Care Team Related Persons Name: LIVIA MAXWELL Address: home [address] [place] [address] Name: DINA MAXWELL Address: home [address] [place] [id number]
--- OUTSIDE RECORDS SUMMARY | 2024-01-05 23:02 | XMS_ITS | Continuity of Care Document ---
Author Organization [facility] ter Address [address] [place] [address]- Care Team Providers Care Industrial Arts Teacher Name Role Phone Jaci GOLD, Garrison Swan Primary Care Physician Encounter [facility] Date(s): 12/01/20 - 12/02/[address] [address] Discharge Disposition: A-D/C Home Attending Physician: Spring GOLD, Estevan Beth Admitting Physician: Brady Bates MD Referring Physician: Not on Staff, Referring [...] Vaccine (oldterm) 03/08/00 Given 1Result Comment: [12/09/2017] [id number] 2Result Comment: [04/15/2015 Uncharted] Pt had influenza vaccine 12/12/15- 3Admin Note: PT had the flu shot done at [facility] Flu clinic 4Admin Note: GIVEN IN CLINIC [facility] 5Admin Note: [facility] 6Admin Note: [employer] [facility] 7Admin Note: GIVEN AT OUTSIDE [...] EDT, Route to Pharmacy Electronically, [facility]/pharmacy #[id number], Partial fill upon patient request if the prescription is for a schedule II... Start Date: 08/07/20 Stop Date: 08/02/21 Status: Ordered carvedilol 6.25 mg oral tablet 6.25 mg, Tablet, By Mouth, Hold for: SBP<100, HR<60, 12/02/20 9:00:00 EDT Start Date: 12/02/20 Stop Date: 12/02/20 Status: Completed clopidogrel 75 mg oral tablet 1, tablet, By Mouth, Daily, # 30 tablet, Refills 5, Tot. Refills 0, Maintenance, 10/04/20 11:01:00 EDT, Route to Pharmacy Electronically, [facility] STORE [id number], 160, cm, 08/30/20 13:24:00 EDT, Height, 56.5, [...] 12/16/20 10:45:00 EDT, 12/02/20 10:45:00 EDT, [id number] Partial fill upon patient request if the prescription is for a schedule II opioid drug... Start Date: 12/02/20 Stop Date: 12/16/20 Status: Ordered lisinopril 2.5 mg oral tablet 2.5 mg, 1, tablet, By Mouth, Daily, # 30 tablet, Refills 11, Tot. Refills 11, Maintenance, 10/25/2111:27:00 EDT, [id number] Partial fill upon patient request if the prescription is for a schedule II opioid d... Start Date: 10/24/20 Stop Date: 10/19/21 Status: Ordered lisinopril 5 mg oral tablet 2.5 mg, Tablet, By Mouth, 12/02/20 9:00:00 EDT Start Date: 12/02/20 Stop Date: 12/02/20 Status: Completed magnesium gluconate 250 mg oral [...] 4colo 2003 nl, rpt 2013 5MI 2019 [address]; no repeat due to age 7restarted HCTZ; will monitor 8holding hctz ;recheck 9Antibody positive 10thought to be medication related by neurology Results Radiology Reports * Exam Date Time Procedure Performing Provider Status 12/01/20 2:39 PM Chest 2 Views Frontal and Lat Sally Mckinley; Auth (Verified) Notes: (Chest 2 Views Frontal and Lat) Reason For Exam: Chest Pain;Other: RESULT: Chest 2 Views Frontal and Lat PA and lateral chest dated December 01, 2020. Comparison films are from July 18, 2020. HISTORY: Chest pain. FINDINGS: The cardiac silhouette is within normal limits for size. Hilar and mediastinal structuresshow mural calcification in the aorta. The patient is status post median sternotomy. No airspace infiltrate or pleural effusion is identified. Overall, the lungs are hyperinflated with flattened diaphragms. Degenerative changes are noted in the spine. IMPRESSION: No evidence of acute pulmonary disease. Findings are consistent with the clinical diagnosis of COPD. Examination 96502. Thank you for allowing me to participate in the care of this patient. WSN: [id number] Ordering Physician: Jeremiah Saxena MD Dictated By: Jean Briones MD Dictated Date/Time: 12/01/20 2:47 pm Reviewed By: Jean Briones MD Signed By: Jean Briones MD Signed Date/Time: 12/01/20 2:47 pm Transcribed By: PENNY Transcribed Date/Time: 12/01/20 2:47 pm Vital Signs Most recent to oldest [Reference Range]: 1 2 3 Height 157.58 cm (12/02/20 7:25 AM) 157.58 cm (12/02/20 4:22 AM) 157.58 cm (12/02/20 2:17 AM) Weight 61 kg (12/02/20 2:17 AM) Oxygen Saturation [94-100 %] 99 % (12/02/20 7:25 AM) 100 % (12/02/20 4:22 AM) 98 % (12/02/20 2:17 AM) Pulse Rate [55-90 bpm] 78 bpm (12/02/20 8:55 AM) 65 bpm (12/02/20 7:25 AM) 59 bpm (12/02/20 4:22 AM) Body Mass Index [18.5-24.99] 24.57 (12/02/20 2:17 AM) Blood Pressure [90-138/55-84 mm Hg] 150/67mm Hg *H* (12/02/20 8:55 AM) 150/67mm Hg *H* (12/02/20 8:55 AM) 150/67mm Hg *H* (12/02/20 7:25 AM) Respiratory Rate [16-30 br/min] 16 br/min (12/02/20 7:25 AM) 18 br/min (12/02/20 7:20 AM) 21 br/min (12/02/20 4:22 AM) Temperature [96.8-100.4 DegF] 98.3 DegF (12/02/20 7:25 AM) 98 DegF (12/02/20 4:22 AM) 98.2 DegF (12/02/20 2:17 AM) Mode of Delivery (Oxygen) Room air (12/02/20 7:25 AM) Room air (12/02/20 4:22 AM) Room air (12/02/20 2:17 AM) Blood pressure sites Arm, right (12/02/20 7:25 AM) Arm, right (12/02/20 4:22 AM) Arm, right (12/02/20 2:17 AM) Temperature Route Oral (12/02/20 7:25 AM) Oral (12/02/20 4:22 AM) Oral (12/02/20 2:17 AM) Dry Weight 61 kg (12/02/20 2:17 AM) Social History Social History Type Response Smoking Status Never (less than 100 in lifetime) entered on: 12/02/20 Sex
--- OUTSIDE RECORDS SUMMARY | 2024-01-05 23:03 | XMS_ITS | Continuity of Care Document ---
Author Organization [facility] Yon lt Address [address] [place] [address]- Care Team Providers Care Senior Ui Ux Developer Name Role Phone Jaci GOLD, Garrison Swan Primary Care Physician [facility]23 - 08[facility]20/23 [facility] Adult [address] [place] [address]- Allergies, Adverse Reactions, Alerts Substance Reaction Severity Status cephalexin Active nitrofurantoin Active sulfADIAZINE Ciprofloxacin Active statins MYALGIAS Active predniSONE SEVERE H/A Active valsartan 1 Active 1dizziness Immunizations Given and Recorded Vaccine Date Status Refusal Reason RSV vaccine, preF A-preF B, recombinant 03/23/23 R ecorded SARS-CoV-2(COVID-19)mRNA-LNP vac([id number]) 11/26/22 Recorded influenza virus vaccine, inactivated 11/05/22 [...] virus vaccine, inactivated 3 12/30/05 Gi cyn [id number] 12y+ bivalent booster vax 08/06/22 Recorded [id number] 12y+ bivalent booster vax 12/13/21 Recorded pneumococcal 23-valent vaccine 4 07/29/21 Given SARS-CoV-2 mRNA (jkyonig-iytd-utztf) vax 4/16/22 Recorded SARS-CoV-2 (COVID-19) mRNA BNT-162b2 [...] 03/08/00 Given 1Result Comment: [facility]# [id number] 2Result Comment: [12/09/2017] [id number] 3Admin Note: GIVEN IN CLINIC [facility] 4Result Comment: [facility]# [id number] 5Admin Note: [facility] 6Admin Note: [facility] 7Admin Note: GIVEN AT OUTSIDE CLINIC 8Admin Note: per pt rcvd elsewhere Medications amLODIPine 5 mg oral tablet 1 tablet, By Mouth, Daily, # 30 tablet, 5 Refills, Maintenance, 03/14/23 14:05:00 EST, [facility] STORE 49251, 157.5, cm, 08/04/22 8:48:00 EDT, Height, 59.5, kg, 06/03/22 14:32:00 EDT, Dry Weight Start Date: 03/14/23 Status: Ordered Aspirin Low Dose 81 mg oral delayed release tablet 1 tablet, By Mouth, Daily, # 30 tablet, 5 Refills, Maintenance, 08/10/23 12:27:00 EDT, [facility], 157.5, cm, 06/22/23 15:03:00 EDT, Height, 59.5, kg, 06/03/22 14:32:00 EDT, Dry Weight Start Date: 08/10/23 Status: Ordered carvedilol 6.25 mg oral tablet 1, tablet, By Mouth, 2 times a day, # 180 tablet, Refills 1, Tot. Refills 1, Maintenance, 07/24/23 15:25:00 EDT, [facility] 157[facility]5, cm, 06/22/23 15:03:00 EDT, Height, 59.5, kg, 06/03/22 14:32:00 EDT, Dry Weight Start Date: 07/24/23 Status: Ordered Daily Brielle oral tablet 1 tablet, By Mouth, Daily, # 30 tablet, 11 Refills, Maintenance, 02/15/23 12:26:00 EST, [facility] STORE 95129, 30, TAKE 1 TABLET BY MOUTH EVERY DAY, 157.5, cm, 08/04/22 8:48:00 EDT, Height, 59.5, kg, 06/03/22 14:32:00 EDT, Dry Weight Start Date: 02/15/23 Status: Ordered furosemide 40 mg oral tablet 1, tablet, By Mouth, Daily, # 30 tablet, Refills 5, Tot. Refills 5, Maintenance, 03/18/23 7:42:00 EST, [facility] 157.5, cm, 08/04/22 8:48:00 EDT, Height, 59.5, kg, 06/03/22 14:32:00 EDT, Dry Weight Start Date: 03/18/23 Status: Ordered lisinopril 10 mg oral tablet 1, tablet, By Mouth, 2 times a day, # 180 tablet, Refills 3, Maintenance, 01/25/23 11:53:00 EST, Route to Pharmacy Electronically, [facility] STORE 45876, 157.5, cm, 08/04/22 8:48:00 EDT, Height, 59.5, [...] Refills, Maintenance, 02/11/23 7:48:00 EST, [facility], 157.5, cm, 08/04/22 8:48:00 EDT, Height, 59.5, kg, 06/03/22 14:32:00 EDT, Dry Weight Start Date: 02/11/23 Status: Ordered Vitamin D3 1000 intl units oral capsule 1 capsule, By Mouth, Daily, # 30 capsule, 5 Refills, Maintenance, 03/14/23 14:05:00 EST, [facility] STORE 44324, 157.5, cm, 08/04/22 8:48:00 EDT, Height, 59.5, [...] 4colo 2004 nl, rpt 2013 5MI 2019 60224; no repeat due to age 7restarted HCTZ; will monitor 8holding hctz ;recheck 9Per discharge note 03/05/21: Long-standing schizoaffective disorder, bipolar type. 10Antibody positive 11thought to be medication related by neurology Social History Social History Type Response Smoking Status Never (less than 100 in lifetime) entered on: 12/02/20 Sex Patient Care team information Care Team Personnel Name: Suresh COONEY, Zabrina Position: [facility] RN Member Role: Primary Care Nurse Name: Carley Vazquez RN Position: [facility] RN Member Role: Primary Care Nurse Name: Geetha MAYBERRY, Annia Gomes Position: [facility] Associate Professional Member Role: Primary Care Nurse Name: Jaci GOLD, Garrison Swan Position: [facility] Physician - Primary Care Member Role: PCP Address: Address: [address] [place] [address]- [place] Name: David Knapp MD Position: [facility] Renal MD Member Role: Lifetime Consulting Physician Address: Address: [address] [place] [address] [address] [facility] [place] [address]- [place] Name: Torito COONEY, Melissa Position: [facility] RN Member Role: Primary Care Nurse Care Team Related Persons Name: LIVIA MAXWELL Address: home [address] [place] [address] Name: DINA MAXWELL Address: home [address] [place] [address]
--- OUTSIDE RECORDS SUMMARY | 2024-01-05 23:03 | XMS_ITS | Continuity of Care Document ---
Author Organization [facility] Y[facility] lt Address [address] [place] [address]- Care Team Providers Care Inside Sales Territory Manager Name Role Phone Delvis ALEXANDER, Catie Shelton Primary Care Physician [facility]23 - 02/24/23 [facility] Adult [address] [place] [address]- Allergies, Adverse Reactions, Alerts Substance Reaction Severity [...] virus vaccine, inactivated 3 12/30/05 Gi cyn [id number] 12y+ bivalent booster vax 08/06/22 Recorded [id number] 12y+ bivalent booster vax 12/13/21 Recorded pneumococcal 23-valent vaccine 4 07/29/21 Given SARS-CoV-2 mRNA ([id number]) vax 06/21/21 Recorded SARS-CoV-2 (COVID-19) mRNA BNT-162b2 [...] Toxoid Vaccine (oldterm) 03/08/00 Given 1Result Comment: [facility]# [id number] 2Result Comment: [12/09/2017] [id number] 3Admin Note: GIVEN IN [facility]IC [facility] 4Result Comment: [facility]# [id number] 5Admin Note: [employer] [facility] 6Admin Note: [employer] 7Admin Note: GIVEN AT OUTSIDE CLINIC 8Admin Note: per pt rcvd elsewhere Medications amLODIPine 5 mg oral tablet 1 tablet, By Mouth, Daily, # 30 tablet, 5 Refills, Maintenance, 09/14/22 6:19:00 EDT, [facility], 157.5, cm, 08/04/22 8:48:00 EDT, Height, 59.5, kg, 06/03/22 14:32:00 EDT, Dry Weight Start Date: 09/14/22 Status: Ordered Aspirin Low Dose 81 mg oral delayed release tablet 1 tablet, By Mouth, Daily, # 30 tablet, 5 Refills, Maintenance, 09/14/22 6:19:00 EDT, [facility], 157.5, cm, 08/04/22 8:48:00 EDT, Height, 59.5, kg, 06/03/22 14:32:00 EDT, Dry Weight Start Date: 09/14/22 Status: Ordered carvedilol 6.25 mg oral tablet 1, tablet, By Mouth, 2 times a day, # 180 tablet, Refills 1, Tot. Refills 1, Maintenance, 01/27/23 20:22:00 EST, [id number] 157.5, cm, 08/04/22 8:48:00 EDT,Height, 59.5, [...] Maintenance, 02/15/23 12:26:00 EST, [facility], 30, TAKE 1 TABLET BY MOUTH EVERY DAY, 157.5, cm, 08/04/22 8:48:00 EDT, Height, 59.5, kg, 06/03/22 14:32:00 EDT, Dry Weight Start Date: 02/15/23 Status: Ordered donepezil 5 mg oral tablet 1, tablet, By Mouth, Daily at bedtime, # 30 tablet, Refills 2, Maintenance, 05/25/22 16:50:00 EDT, Route to Pharmacy Electronically, [facility], 158, cm, 02/27/22 13:27:00 EST, Height, 63, kg, 07/28/21 1:38:00 EDT, Dry Weight Start Date: 05/25/22 Status: Ordered furosemide 40 mg oral tablet 1, tablet, By Mouth, Daily, # 30 tablet, Refills 5, Maintenance, 09/14/22 6:19:00 EDT, Route to Pharmacy Electronically, [facility], 157.5, cm, 08/04/22 8:48:00 EDT, Height, 59.5, kg, 06/03/22 14:32:00 EDT, Dry Weight Start Date: 09/14/22 Status: Ordered lisinopril 10 mg oral tablet 1, tablet, By Mouth, 2 times a day, # 180 tablet, Refills 3, Maintenance, 01/25/23 11:53:00 EST, Route to Pharmacy Electronically, [facility], 157.5, cm, 08/04/22 8:48:00 EDT, Height, 59.5, [...] capsule, 3 Refills, Maintenance, 02/11/23 7:48:00 EST, [facility] 16[facility], 157.5, cm, 08/04/22 8:48:00 EDT, Height, 59.5, kg, 06/03/22 14:32:00 EDT, Dry Weight Start Date: 02/11/23 Status: Ordered Vitamin D3 1000 intl units oral capsule 1 capsule, By Mouth, Daily, # 30 capsule, 5 Refills, Maintenance, 09/14/22 6:19:00 EDT, [facility], 157.5, cm, 08/04/22 8:48:00 EDT, Height, 59.5, [...] 4colo 2004 nl, rpt 2013 5MI 2019 45172; no repeat due to age 7restarted HCTZ; will monitor 8holding hctz ;recheck 9Per discharge note 03/05/21: Long-standing schizoaffective disorder, bipolar type. 10Antibody positive 11thought to be medication related by neurology Social History Social History Type Response Smoking Status Never (less than 100 in lifetime) entered on: 12/02/20 Sex Patient Care team information Care Team Personnel Name: Carley Vazquez RN Position: [facility] RN Member Role: Primary Care Nurse Name: Annia Iniguez NP Position: [facility] Associate Professional Member Role: Primary Care Nurse Address: Address: [address] [place] [address]- Name: Catie Washington Position: [facility] PCO Associate Professional Member Role: PCP Address: Address: [address] [place] [address]- [place] Name: David Knapp MD Position: [facility] Renal MD Member Role: Lifetime Consulting Physician Address: Address: [address] [place] [address] [address] [facility] [place] [address]- [place] Name: Zabrina Reyes RN Position: S RN Member Role: Primary Care Nurse Name: Melissa Ugarte RN Position: S RN Member Role: Primary Care Nurse Care Team Related Persons Name: LIVIA MAXWELL Address: home [address] [place] [address] Name: DINA MAXWELL Address: [address] [place] [address]
--- OUTSIDE RECORDS SUMMARY | 2024-01-05 23:03 | XMS_ITS | Continuity of Care Document ---
Author Organization [facility] Y[facility] lt Address [address] [place] [address]- Care Team Providers Care Certified Ophthalmic Technologist Name Role Phone Jaci GOLD, Garrison Swan Primary Care Physician [facility]18[facility]21 - 07/18/21 [facility] Adult [address] [place] [address]- Allergies, Adverse Reactions, Alerts Substance Reaction Severity [...] Vaccine (oldterm) 03/08/00 Given 1Result Comment: [12/09/2017] [id number] 2Result Comment: [04/15/2015 Uncharted] Pt had influenza vaccine 12/12/15- 3Admin Note: PT had the flu shot done at [facility] Flu clinic 4Admin Note: GIVEN IN [facility] 5Admin Note: [facility] 6Admin Note: [employer] [facility] 7Admin Note: GIVEN AT OUTSIDE CLINIC 8Admin Note: per pt rcvd elsewhere Medications amLODIPine 5 mg oral tablet 5 mg, 1, tablet, By Mouth, Daily, # 30 tablet, Refills 11, Tot. Refills 11, Maintenance, 03/12/21 16:13:00 EST, Route to Pharmacy Electronically, [facility]/pharmacy #[id number], Partial fill upon patient requestif the prescription is for a schedule II opioid symone... Start Date: 03/12/21 Status: Ordered Aricept 5 mg oral tablet 5 mg, 1, tablet, By Mouth, Daily at bedtime, # 30 tablet, Refills 11, Tot. Refills 11, Maintenance,03/12/21 16:10:00 EST, Route to Pharmacy Electronically, [facility]/pharmacy #[id number], Partial fill upon patient request [...] 06/26/21 10:43:00 EDT, [id number] upon patient request if the prescription is fo... Start Date: 06/26/21 Status: Ordered clopidogrel 75 mg oral tablet 1, tablet, By Mouth, Daily, # 30 tablet, Refills 11, Tot. Refills 11, Maintenance, 03/12/21 16:09:00 EST, [id number], [facility], cm, 03/12/21 13:26:00 EST, Height,60, kg, 01/20/21 16:03:00 EST, Dry Weight Start Date: 03/12/21 Status: Ordered Lasix 40 mg oral tablet 40 mg, 1, tablet, By Mouth, Daily, # 30 tablet, Refills 11, Tot. Refills 11, Maintenance, 03/12/21 16:08:00 EST, [id number] Partial fill upon patient request if the prescription is for a schedule II opioid dr... Start Date: 03/12/21 Stop Date: 03/07/22 Status: Ordered lisinopril 10 mg oral tablet 10 mg, 1, tablet, By Mouth, 2 times a day, # 60 tablet, Refills 11, Tot. Refills 11, Maintenance, 03/12/21 16:09:00 EST, [id number] Partial fill upon patient request if the prescription is for a schedule II o... Start Date: 03/12/21 Stop Date: 03/07/22 Status: Ordered magnesium oxide 400 mg oral tablet 1 tablet = 400 mg, By Mouth, Daily, for 30 days, # 30 tablet, 11 Refills, Acute 03/07/22 16:11:00 EST, 03/12/21 16:11:00 EST, [id number] Partial fill upon patient [...] Refills, Maintenance, 03/12/21 16:07:00 EST, ER Capsule, [facility]/pharmacy #[id number], Partial fill upon patient request [...] 4colo 2004 nl, rpt 2013 5MI 2019 08369; no repeat due to age 7restarted HCTZ; will monitor 8holding hctz ;recheck 9Antibody positive 10thought to be medication related by neurology Social History Social History Type Response Smoking Status Never (less than 100 in lifetime) entered on: 12/02/20 Sex
--- OUTSIDE RECORDS SUMMARY | 2024-01-05 23:03 | XMS_ITS | Continuity of Care Document ---
Author Organization [facility] Yon lt Address [address] [place] [address]- Care Team Providers Care Nurse Staff Industrial Name Role Phone Jaci GOLD, Garrison Swan Primary Care Physician [facility] 06[facility]20 - 07/28/20 [facility] Adult [address] [place] [address]- Allergies, Adverse Reactions, Alerts Substance Reaction Severity [...] Vaccine (oldterm) 03/08/00 Given 1Result Comment: [12/09/2017] [id number] 2Result Comment: [04/15/2015 Uncharted] Pt had influenza vaccine 12/12/15- 3Admin Note: PT had the flu shot done at [facility] Flu clinic 4Admin Note: GIVEN IN CLINIC [facility] 5Admin Note: [facility] 6Admin Note: [employer] [facility] 7Admin Note: GIVEN AT OUTSIDE CLINIC 8Admin Note: per pt rcvd elsewhere Medications carvedilol 3.125 mg oral tablet See Instructions, TAKE 1 TABLET BY MOUTH TWICE A DAY, # 60 tablet, Refills 11, Tot. Refills 11, Maintenance, Instructions Replace Required Details, Route to Pharmacy Electronically, [facility], 160, cm, 07/05/20 7:47:00 EDT, Height, 62, kg, 02/26... Start Date: 07/05/20 Status: Ordered dicyclomine 10 mg oral capsule 1 capsule = 10 mg, By Mouth, 4 times a day, # 56 capsule, 0 Refills, Maintenance, 07/24/20 12:45:00EDT, Capsule, [facility]/pharmacy #[id number], Partial [...] Maintenance, 04/29/20 9:23:00 EST, ER Tablet, [facility]/pharmacy #[id number], Partial fill upon patient request if the prescription is for a schedule II opioid drug., 160, cm, 04/29/20 8:53:00 EST,... Start Date: 04/29/20 Status: Ordered sacubitril-valsartan 24 mg-26 mg oral tablet 1 tablet, By Mouth, 2 times a day, Take one tablet by mouth twice daily, # 60 tablet, 6 Refills, Maintenance, 07/23/20 14:14:00 EDT, Tablet, [facility]/pharmacy #[id number], replaces valsartan, 1 tablet By [...] 4colo 2004 nl, rpt 2013 5MI 2019 06447; no repeat due to age 7restarted HCTZ; will monitor 8holding hctz ;recheck 9Antibody positive 10thought to be medication related by neurology Social History Social History Type Response Smoking Status Never smoker; Tobacc o user in household: No entered on: 07/05/14 Sex
--- OUTSIDE RECORDS SUMMARY | 2024-01-05 23:03 | XMS_ITS | Continuity of Care Document ---
Author Organization [facility] Address [address] [place] [address]- Care Team Providers Care Technical Support Analyst Name Role Phone Garrison Beatty MD Primary Care Physician [phone] [facility]): 03/22/20 - 04/21/20 [facility] [address] [place] [address]- Allergies, Adverse Reactions, Alerts Substance Reaction Severity [...] Vaccine (oldterm) 03/08/00 Given 1Result Comment: [12/09/2017] [id number] 2Result Comment: [04/15/2015 Uncharted] Pt had influenza vaccine 12/12/15- 3Admin Note: PT had the flu shot done at [facility] Flu clinic 4Admin Note: GIVEN IN CLINIC [facility] 5Admin Note: [employer] [facility] 6Admin Note: [employer] [facility] 7Admin Note: GIVEN [...] 04/09/20 7:42:00 EST, Route to Pharmacy Electronically, [facility]/pharmacy #[id number], Partial fill upon patientrequest if the prescription is for a schedule II op... Start Date: 04/09/20 Stop Date: 04/04/21 Status: Ordered Multivitamin 1 tablet, By Mouth, [...] 10:44:00 EST, Route to Pharmacy Electronically, [facility]/pharmacy #[id number], Partial fill upon patient request if the prescription is for a schedule II opioid drug... Start Date: 03/20/20 Status: Ordered potassium chloride 10 mEq oral tablet, extended release 2 tablet = 20 mEq, By Mouth, Daily in AM, # 60 tablet, 5 Refills, Maintenance, 03/20/20 10:44:00 EST, ER Tablet, [facility]/pharmacy #[id number], Partial fill upon patient request [...] 4colo 2004 nl, rpt 2013 5MI 2019 38536; no repeat due to age 7restarted HCTZ; will monitor 8holding hctz ;recheck 9Antibody positive 10thought to be medication related by neurology Social History Social History Type Response Smoking Status Never smoker; Tobacc o user in household: No entered on: 07/05/14 Sex
--- OUTSIDE RECORDS SUMMARY | 2024-01-05 23:03 | XMS_ITS | Continuity of Care Document ---
Author Organization [facility] Address [address] [place] [address]- Care Team Providers Care Estate Planning Paralegal Name Role Phone Garrison Beatty MD Primary Care Physician [facility]s): 01/14/21 - 02/13/21 [facility] [address] [place] [address]- Attending Physician: Renetta Strickland Admitting Physician: AdmRenetta webb Referring Physician: Admtr, Kan8 Allergies, Adverse Reactions, Alerts Substance Reaction Severity [...] Vaccine (oldterm) 03/08/00 Given 1Result Comment: [12/09/2017] [id number] 2Result Comment: [04/15/2015 Uncharted] Pt had influenza vaccine 12/12/15- 3Admin Note: PT had the flu shot done at [facility] Flu clinic 4Admin Note: GIVEN IN CL[facility]IC [facility] 5Admin Note: [employer] [facility] 6Admin Note: [employer] 7Admin Note: GIVEN AT OUTSIDE CLINIC 8Admin [...] EDT, Route to Pharmacy Electronically, [facility]/pharmacy #[id number], Partial fill upon patient request if the prescription is for a schedule II... Start Date: 08/07/20 Stop Date: 08/02/21 Status: Ordered clopidogrel 75 mg oral tablet 1, tablet, By Mouth, Daily, # 30 tablet, Refills 5, Tot. Refills 0, Maintenance, 10/04/20 11:01:00 EDT, Route to Pharmacy Electronically, [facility] 20775, 160, cm, 08/30/20 13:24:00 EDT, Height, 56.5, [...] Maintenance, 10/25/2111:27:00 EDT, Route to Pharmacy Electronically, [facility]/pharmacy [...] 4colo 2003 nl, rpt 2013 5MI 2019 16535; no repeat due to age 7restarted HCTZ; will monitor 8holding hctz ;recheck 9Antibody positive 10thought to be medication related by neurology Social History Social History Type Response Smoking Status Never (less than 100 in lifetime) entered on: 12/02/20 Sex
--- OUTSIDE RECORDS SUMMARY | 2024-01-05 23:03 | XMS_ITS | Continuity of Care Document ---
Author Organization [facility] lt Address [address] [place] [address]- Care Team Providers Care Network Liaison Name Role Phone Jaci GOLD, Garrison Swan Primary Care Physician [facility] 04[facility]20 - 04/26/20 [facility] Adult [address] [place] [address]- Encounter Diagnosis Leg weakness(Discharge Diagnosis) - 04/19/20 Attending Physician: Belkis Pete NP Allergies, Adverse [...] Vaccine (oldterm) 03/08/00 Given 1Result Comment: [12/09/2017] [id number] 2Result Comment: [04/15/2015 Uncharted] Pt had influenza vaccine 12/12/15- 3Admin Note: PT had the flu shot done at [facility] Flu clinic 4Admin Note: GIVEN IN CLINIC [facility] 5Admin Note: [employer] [facility] 6Admin Note: [employer] [facility] 7Admin Note: GIVEN [...] 04/09/20 7:42:00 EST, Route to Pharmacy Electronically, [facility]/pharmacy #[id number], Partial fill upon patient requestif the prescription is for a schedule II opioid symone... Start Date: 04/09/20 Stop Date: 04/04/21 Status: Ordered lisinopril 5 mg oral tablet 5 mg, 1, tablet, By Mouth, Daily, # 30 tablet, Refills 3, Tot. Refills 3, Maintenance, 04/25/20 10:36:00 EST, Route to Pharmacy Electronically, [facility]/pharmacy #[id number], Partial fill upon [...] EST, Route to Pharmacy Electronically, [facility]/pharmacy #[id number], Partial fill upon patient request if the prescription is for a schedule II opioid drug... Start Date: 03/20/20 Status: Ordered potassium chloride 10 mEq oral tablet, extended release 2 tablet = 20 mEq, By Mouth, Daily in AM, # 60 tablet, 5 Refills, Maintenance, 03/20/20 10:44:00 EST, ER Tablet, [facility]/pharmacy #7111, Partial fill [...] 4colo 2004 nl, rpt 2013 5MI 2019 85281; no repeat due to age 7restarted HCTZ; will monitor 8holding hctz ;recheck 9Antibody positive 10thought to be medication related by neurology Diagnosis Diagnosis Type Effective Dates Health Status Cl inical Service Informant Leg weakness Discharge Diagnosis 04/19/20 Vital Signs Most recent to oldest [Reference Range]: 1 Height 160 cm (04/19/20 2:54 PM) Social History Social History Type Response Smoking Status Never smoker; Tobacc o user in household: No entered on: 07/05/14 Sex
--- OUTSIDE RECORDS SUMMARY | 2024-01-05 23:03 | XMS_ITS | Continuity of Care Document ---
Author Organization [facility] Address [address] [place] [address]- Care Team Providers Care Topographical Drafter Name Role Phone Garrison Beatty MD Primary Care Physician Encounter [facility] Date(s): 10/11/21 - 02/08/22 [facility] [address] [place], [place] [address] Attending Physician: Darryn Ledezma [...] 23-valent vaccine 6 07/29/21 Given SARS-CoV-2 mRNA (uwjnfqi-kdqs-wewbr) vax 06/21/21 Recorded SARS-CoV-2 (COVID-19) mRNA BNT-162b2 [...] Toxoid Vaccine (oldterm) 03/08/00 Given 1Result Comment: [facility]# [id number] 2Result Comment: [12/09/2017] [id number] 3Result Comment: [04/15/2015 Uncharted] Pt had influenza vaccine 12/12/15- 4Admin Note: PT had the flu shot done at [facility] Flu clinic 5Admin Note: GIVEN IN [facility]IC [facility] 6Result Comment: [facility]# [id number] 7Admin Note: [employer] [facility] 8Admin Note: [employer] [facility] 9Admin Note: GIVEN AT OUTSIDE CLINIC 10Admin Note: per pt rcvd elsewhere Medications amLODIPine 5 mg oral tablet See Instructions, TAKE 1 TABLET BY MOUTH EVERY DAY, # 30 tablet, 5 Refills, Maintenance, 01/01/22 15:18:00 EDT, [facility], 158, cm, 11/27/21 8:19:00 EDT, Height, 63, [...] 02/02/22 16:34:00 EST, [id number] Partial fill upon patient request if the prescription is for a schedule II... Start Date: 02/02/22 Status: Ordered clopidogrel 75 mg oral tablet 1, tablet, By Mouth, Daily, # 30 tablet, Refills 0, Maintenance, 11/06/21 16:29:00 EDT, Route to Pharmacy Electronically, [facility] 60683, 158, cm, 10/02/21 9:27:00 EDT, Height, 63, kg, 07/28/21 1:38:00 EDT, Dry Weight Start Date: 11/06/21 Status: Ordered donepezil 5 mg oral tablet See Instructions, TAKE 1 TABLET BY MOUTH AT BEDTIME, # 30 tablet, Refills 5, Tot. Refills 5, 01/23/22 15:56:00 EST, Instructions Replace Required Details, [id number], 158, cm, 01/21/22 13:27:00 EST, Height, 63... Start Date: 01/23/22 Status: Ordered Lasix 40 mg oral tablet 40 mg, 1, tablet, By Mouth, Daily, # 30 tablet, Refills 11, Tot. Refills 11, Maintenance, 03/12/21 16:08:00 EST, [id number], Partial fill upon patient request if the prescription is for a schedule II opioid dr... Start Date: 03/12/21 Stop Date: 03/07/22 Status: Ordered lisinopril 10 mg oral tablet 10 mg, 1, tablet, By Mouth, 2 times a day, # 180 tablet, Refills 3, Tot. Refills 3, Maintenance, 03/07/22 16:09:00 EST, [id number], Partial fill upon patientrequest if the prescription is for a schedule II op... Start Date: 03/07/22 Status: Ordered magnesium oxide 400 mg oral tablet 1 tablet = 400 mg, By Mouth, Daily, for 30 days, # 30 tablet, 11 Refills, Acute 03/07/22 16:11:00 EST, 03/12/21 16:11:00 EST, Tablet, [facility]/pharmacy #[id number], Partial fill upon patient [...] Refills, Maintenance, 01/23/22 15:28:00 EST, ER Capsule, [facility]/pharmacy #[id number], Partial fill upon patient [...] 4colo 2004 nl, rpt 2013 5MI 2019 67362; no repeat due to age 7restarted HCTZ; will monitor 8holding hctz ;recheck 9Per discharge note 03/05/21: Long-standing schizoaffective disorder, bipolar type. 10Antibody positive 11thought to be medication related by neurology Social History Social History Type Response Smoking Status Never (less than 100 in lifetime) entered on: 12/02/20 Sex Patient Care team information Care Team Personnel Name: Carley Vazquez RN Position: [facility] RN Member Role: Primary Care Nurse Name: Annia Iniguez NP Position: [facility] Associate Professional Member Role: Primary Care Nurse Address: Address: [address] [place] [address]- [place] Name: Garrison Beatty MD Position: [facility] Primary Care Physician Member Role: PCP Address: Address: [address] [place] [address]- [place] Name: David Knapp MD Position: [facility] Renal MD Member Role: Lifetime Consulting Physician Address: Address: [address] [facility] [place] [address]- Name: Amy COONEY, Zabrina Position: [facility] RN Member Role: Primary Care Nurse Name: Melissa Ugarte RN Position: S RN Member Role: Primary Care Nurse Care Team Related Persons Name: LIVIA MAXWELL Address: [address] [address] Name: DINA MAXWELL Address: [place] [address]
--- OUTSIDE RECORDS SUMMARY | 2024-01-05 23:03 | XMS_ITS | Continuity of Care Document ---
Author Organization [facility] Address [address] [place] [address]- Care Team Providers Care Meter Tester Primary Name Role Phone Garrison Beatty MD Primary Care Physician Encounter [facility] Date(s): 08/01/19 - 08/31/19 [facility] [address] [place] [address]- [facility] Attending Physician: Renetta Strickland Admitting Physician: AdmRenetta webb Referring Physician: AdmtrRenetta Allergies, Adverse Reactions, Alerts Substance Reaction Severity [...] Vaccine (oldterm) 03/08/00 Given 1Result Comment: [12/09/2017] [id number] 2Result Comment: [04/15/2015 Uncharted] Pt had influenza vaccine 12/12/15- 3Admin Note: PT had the flu shot done at [facility] Flu clinic 4Admin Note: GIVEN IN CL[facility]IC [facility] 5Admin Note: [employer] [facility] 6Admin Note: [employer] [facility] 7Admin [...] 08/21/19 14:11:00 EDT, Route to Pharmacy Electronically, [facility]/pharmacy #[id number], 155.5, cm, 08/21/19 13:49:00 [...] tablet, 11 Refills, Maintenance, 08/21/19 14:11:00 EDT, [facility]/pharmacy #[id number], 155.5, cm, 08/21/19 13:49:00 [...] colo 2008 4colo 2003 nl, rpt 2013 35747; no repeat due to age 6restarted HCTZ; will monitor 7holding hctz ;recheck 8Antibody positive 9thought to be medication related by neurology Social History Social History Type Response Smoking Status Never smoker; Tobacc o user in household: No entered on: 07/05/14 Sex
[2024-01-05 23:04] LABS: Amphetamine Screen Urine Not Detected (Not Detect); Barbiturates, Urine Not Detected (Not Detect); Benzodiazepines Screen Urine Not Detected (Not Detect); Buprenorphine Scr Not Detected (Not Detect); Cannabinoid Screen Urine Not Detected (Not Detect); Cocaine Screen Urine Not Detected (Not Detect); Fentanyl, urine Not Detected (Not Detect); Methadone Screen, Urine Not Detected (Not Detect); Opiate Screen Urine Not Detected (Not Detect); Oxycodone Screen Urine Not Detected (Not Detect); Phencyclidine Screen Urine Not Detected (Not Detect)
--- NOTE | 2024-01-05 23:18 | PC.NURSE ---
hand off to izaiah fontaine.
[2024-01-06] VITALS (7 sets, daily range): BP systolic 111–147; BP diastolic 61–84; PULSE 61–79; RESP 14–18; TEMP 36.6–37.3; O2SAT 96–98; BMI 23.4
[2024-01-06 00:15] LABS: Ethanol < 10 mg/dL
--- NOTE | 2024-01-06 03:13 | PC.NURSE ---
Informed by Care Team, pt is a section 12 and a bed-search will commence. No SI/HI at this time.
--- NOTE | 2024-01-06 05:08 | PC.NURSE ---
Pt has been sleeping most of the shift, appears comfortable. Changes positions independently as desired. Independent with toileting, walks with a steady gait. Is arousable with verbal stimuli. Pt is on a section 12 and a bed search is ongoing. Will continue to monitor for any changes.
--- NOTE | 2024-01-06 10:21 | PC.NURSE ---
Jack Rec completed with PtHarley
[2024-01-06] MEDS: Magnesium Oxide 400 MG TABLET PO (12:05)
[2024-01-06] MEDS: amLODIPine Besylate 5 MG TABLET PO (12:05)
[2024-01-06] MEDS: Furosemide 40 MG TABLET PO (12:05)
[2024-01-06] MEDS: lisinopriL 10 MG TABLET PO ×2 (12:05→20:16)
[2024-01-06] MEDS: Multivitamin TABLET 1 TAB PO (12:06)
[2024-01-06] MEDS: Aspirin Enteric Coated 81 MG TABLET.DR PO (12:06)
[2024-01-06] MEDS: Cholecalciferol (Vitamin D3) 25 MCG TABLET PO (12:06)
[2024-01-06] MEDS: carvediloL 6.25 MG TABLET PO ×2 (12:06→20:16)
[2024-01-06] MEDS: Potassium Chloride ER 10 MEQ TABLET.ER PO (12:14)
--- NOTE | 2024-01-06 13:20 | MHC.CARE ---
T/W spoke with Pt's son who is also her HCP (of note it is not invoked). He stated that Pt is manipulative and plays the game . He stated that she had been stable on medications for 2 years since her last admission to however has stopped taking her Olanzapine and has become increasingly paranoid. He stated the housing community she resides in is calling him to report erratic behavior and that in the hospital last evening every time someone walked by she was paranoid they were talking about her. He is advocating for a DAGMAR IPLOC admission at [facility] as Pt is known to S1 and I don't want to have to keep explaining to people her history. Please keep him updated with placement info.
[2024-01-06] MEDS: OLANZapine 2.5 MG TABLET PO (21:13)
--- NOTE | 2024-01-06 23:55 | PC.NURSE ---
Admission Note Emily Stephenson, 78 years old woman was presented to [facility] ED by her son, who is her healthcare proxy, for delusional paranoia secondary to non compliance with her medication.? Patient lived by herself in an apartment, independent of ADL care. Patient has a medical and psychiatric history of hypertension, open heart surgery 4 years ago, and schizoaffective disorder.? Emily arrived on S1 unit at 2250 on 01/06/24, on Section-12B, with an admitting diagnosis of Schizoaffective Disorder. Patient is alert and oriented x 4 but forgetful at times. Patient appears calm, quiet, and pleasant. Compliant with the admission process. Denied SI/HI/AVH, Denied depression/anxiety, contracted for the safety, ambulates independently. No fall risk. VSS, no visible skin issues except scattered rashes on below knee, meds rec completed in ED? and patient is compliant with her medication and takes her meds whole with water. Elimination intact. Labs unremarkable, Utox negative. Signed release paper, unit orientation completed,? patient is being observed on 5 minutes safety check as ordered. Patient is full code. Belongings inventoried/secured. Notice of Rights for Temporary Involuntary Hospitalization Form offered/explained/signed/filed.?
[2024-01-07 08:16] LABS: Estimated Average Glucose 114 mg/dL; Hemoglobin A1C 136.6399 umol/L; Hemoglobin A1c % 5.6 % (<6.0); Total Hemoglobin (HGBA1C) 3602.8711 umol/L
[2024-01-07 08:28] LABS: Cholesterol 216 mg/dL (<200); HDL Cholesterol 57 mg/dL (>40); LDL Cholesterol Calculated 132 mg/dL (<100); Magnesium 1.9 mg/dL (1.6-2.6); Triglycerides 136 mg/dL (<150)
[2024-01-07 08:44] VITALS: BP 110/57; PULSE 65; RESP 15; TEMP 37.5; O2SAT 96
[2024-01-07] MEDS: amLODIPine Besylate 5 MG TABLET PO (08:46)
[2024-01-07] MEDS: Potassium Chloride ER 10 MEQ TABLET.ER PO (08:46)
[2024-01-07] MEDS: Multivitamin TABLET 1 TAB PO (08:46)
[2024-01-07] MEDS: Cholecalciferol (Vitamin D3) 25 MCG TABLET PO (08:47)
[2024-01-07] MEDS: Furosemide 40 MG TABLET PO (08:47)
[2024-01-07] MEDS: lisinopriL 10 MG TABLET PO ×2 (08:47→20:43)
[2024-01-07] MEDS: Aspirin Enteric Coated 81 MG TABLET.DR PO (08:47)
[2024-01-07] MEDS: Magnesium Oxide 400 MG TABLET PO (08:47)
[2024-01-07] MEDS: carvediloL 6.25 MG TABLET PO ×2 (08:47→20:43)
[2024-01-07 08:48] LABS: Free T4 (Free Thyroxine) 1.06 ng/dL (0.71-1.85); Thyroid Stimulating Hormone 3.37 uIU/mL (0.32-4.0)
[2024-01-07 08:52] VITALS: BP 129/63; PULSE 64
[2024-01-07 08:57] LABS: Folate 16.3 ng/mL (> or = 4.0); Vitamin B12 416 pg/mL (200-900)
[2024-01-07 11:00] LABS: Appearance Urine Clear; Color Urine Yellow; Glucose Urine UA Negative (Negative); Leukocyte Esterase Urine Negative (Negative); Nitrite Urine Negative (Negative); PH 6.5 (5.0-9.0); Specific Gravity - Urine <= 1.005 (1.005-1.025); Urine Blood Negative (Negative); Urine Ketones Negative (Negative); Urine Protein Negative (Neg-Trace)
[2024-01-07 11:07] LABS: Bacteria Urine None Seen (None Seen); Hyaline Casts Urine 0-2 /LPF (0-2); RBC Urine 0-2 /HPF (0-2); Squamous Epithelial Cell Urine 0-2 /HPF (0-2); WBC Urine 0-5 /HPF (0-5)
--- NOTE | 2024-01-07 11:35 | HO.PSYADMNOT ---
HPI Date of Service: 01/07/24 Chief Complaint: schizoaffective disorder,bipolar type Sources of Information: patient interviewed, chart reviewed and crisis/core team assessment reviewed HPI Subjective Notes: Pathak Warning and Conditional Voluntary Narrative: The patient is a 78-year-old female, mother of adult children, living alone very well known by this team since she had been admitted several times at least 3 times since 2020 due to psychosis. The patient carries a diagnosis of schizoaffective disorder bipolar type and according to the crisis assessment, the patient was noncompliant with her antipsychotics for 1 month. She was grossly disorganized and her son brought her to the emergency room. She was assessed by crisis and transferring to this facility for psychiatric stabilization. Historically, the patient is always brought to the emergency room by her family since she become noncompliant of her medications. She has tried several antipsychotics in the past but so far the medication that she tolerates better is olanzapine. She reports side effects with risperidone and over-sedation with high doses of olanzapine. On the intake interview, the patient recognized me she was pleasant, cooperative reported that she was slacking on her olanzapine and she was not sure while her son brought her to the emergency room. She is willing to take back her medications. It was evident during the conversation that the patient has perseverative thought process with inability to understand more complex ideas. She is able to contract for safety at this moment. She is willing to continue treatment here Past Psychiatric History: Admitted several times at this unit since 2020 due to non-compliance, similar presentation, grossly disorganized and psychotic [facility] ED 3Xin past 2 months for somatic sx IPLOC at [facility], in 2009. Remote hx of IPLOC at [facility]. Previous SI attempt in 2009 Therapist Zena Maldonado, Psych provider ESTRELLA Shrestha at [facility], Medical Evaluation Reviewed: Yes [facility] Medical History Ischemic cardiomyopathy Essential hypertension Coronary artery disease Schizoaffective disorder, bipolar type Surgical History S/P CABG (coronary artery bypass graft) Family History: Raised by parents, 1 brother, 1 sister. Siblings local. Mother : Alzheimers dementia. Father : Question of psychosis. Brother: Question of psychosis. Sister: Question of dementia. Social History: , lives by self in fdc apartment. Has 1 son, has grand children. Trauma History: Unknown. Diagnostics Vital Signs (24Hr): Vital Signs - 24 hr 01/06/24 12:03 01/06/24 20:16 01/06/24 20:16 Temperature 98.2 F Pulse Rate 72 72 Respiratory Rate 18 Blood Pressure 140/72 H 140/72 H 140/72 H Pulse Oximetry 97 Oxygen Delivery Method Room Air 01/06/24 20:18 01/06/24 22:37 01/06/24 23:25 Temperature 98 F 98 F 97.8 F Pulse Rate 70 61 79 Respiratory Rate 18 18 18 Blood Pressure 147/72 H 126/61 138/68 Pulse Oximetry 96 97 97 Oxygen Delivery Method Room Air Room Air Room Air 01/07/24 08:44 01/07/24 08:52 Temperature 99.5 F Pulse Rate 65 64 Respiratory Rate 15 Blood Pressure 110/57 L 129/63 Pulse Oximetry 96 Oxygen Delivery Method Room Air BMI result Body Mass Index 23.4 Labs 01/05/24 22:18 01/05/24 22:18 Labs: Laboratory Results - last 48 hr 01/05/24 01/05/24 01/07/24 22:18 22:36 07:42 WBC 8.7 RBC 4.56 Hgb 14.5 Hct 41.3 MCV 90.6 MCH 31.8 MCHC 35.1 H RDW 12.1 Plt Count 289 MPV 9.4 Immature Gran % (Auto) 0.3 Neut % (Auto) 55.9 Lymph % (Auto) 31.4 [place] % (Auto) 10.2 Eos % (Auto) 1.5 Baso % (Auto) 0.7 Lymph # (Auto) 2.7 [place] # (Auto) 0.9 Eos # (Auto) 0.1 Baso # (Auto) 0.1 Abs Immat Gran (auto) 0.03 Absolute Neuts (auto) 4.9 Absolute Nucleated RBC 0.000 Nucleated RBC % (auto) 0.0 Sodium 138 Potassium 3.9 Chloride 98 Carbon Dioxide 27 Anion Gap 17 BUN 31 H Creatinine 1.10 Estim Creat Clear Calc 33.3 Estimated GFR 48 Random Glucose 141 H Estimat Average Glucose 114 Hemoglobin A1c % 5.6 Calcium 10.1 Magnesium 1.9 Troponin I High Sens 9.1 Triglycerides 136 Cholesterol 216 H LDL Cholesterol, Calc 132 H HDL Cholesterol 57 Vitamin B12 416 Folate 16.3 TSH 3.37 Free T4 1.06 Urine Color Yellow Urine Appearance Clear Urine pH 5.5 Ur Specific [place] 1.020 Urine Protein Negative Urine Glucose (UA) Negative Urine Ketones Negative Urine Blood Negative Urine Nitrite Negative Ur Leukocyte Esterase Small (1+) H Urine RBC 0-2 Urine WBC 0-5 Ur Squamous Epith Cells 0-2 Urine Bacteria None Seen Hyaline Casts 0-2 Urine Test NEGATIVE Urine Opiates Screen Not Detected Ur Buprenorphine Scrn Not Detected Ur Oxycodone Screen Not Detected Urine Methadone Screen Not Detected Urine Fentanyl Screen Not Detected Ur Barbiturates Screen Not Detected Ur Phencyclidine Scrn Not Detected Ur Amphetamines Screen Not Detected U Benzodiazepines Scrn Not Detected Urine Cocaine Screen Not Detected U Marijuana (THC) Screen Not Detected Ethyl Alcohol < 10 01/07/24 10:00 WBC RBC Hgb Hct MCV MCH MCHC RDW Plt Count MPV Immature Gran % (Auto) Neut % (Auto) Lymph % (Auto) [place] % (Auto) Eos % (Auto) Baso % (Auto) Lymph # (Auto) [place] # (Auto) Eos # (Auto) Baso # (Auto) Abs Immat Gran (auto) Absolute Neuts (auto) Absolute Nucleated RBC Nucleated RBC % (auto) Sodium Potassium Chloride Carbon Dioxide Anion Gap BUN Creatinine Estim Creat Clear Calc Estimated GFR Random Glucose Estimat Average Glucose Hemoglobin A1c % Calcium Magnesium Troponin I High Sens Triglycerides Cholesterol LDL Cholesterol, Calc HDL Cholesterol Vitamin B12 Folate TSH Free T4 Urine Color Yellow Urine Appearance Clear Urine pH 6.5 Ur Specific [place] <= 1.005 Urine Protein Negative Urine Glucose (UA) Negative Urine Ketones Negative Urine Blood Negative Urine Nitrite Negative Ur Leukocyte Esterase Negative Urine RBC 0-2 Urine WBC 0-5 Ur Squamous Epith Cells 0-2 Urine Bacteria None Seen Hyaline Casts 0-2 Urine Test Urine Opiates Screen Ur Buprenorphine Scrn Ur Oxycodone Screen Urine Methadone Screen Urine Fentanyl Screen Ur Barbiturates Screen Ur Phencyclidine Scrn Ur Amphetamines Screen U Benzodiazepines Scrn Urine Cocaine Screen U Marijuana (THC) Screen Ethyl Alcohol Imaging Radiology Impressions: ITS Impressions Chest X-Ray 01/05/24 22:08 IMPRESSION: No acute abnormality of chest. Electronically signed by: Gavino Espinoza MD 01/05/2024 11:11 PM EDT RP Meds/Allergies Meds Home Medications ?Medication ?Instructions ?Recorded ?Confirmed ?Type clotrimazole-betamethasone 1 2 appl topical BID 01/06/24 01/06/24 History %-0.05 % topical cream olanzapine 2.5 mg tablet 2.5 mg PO BEDTIME 01/06/24 01/06/24 History Allergies Allergies Allergy/AdvReac Type Severity Reaction Status Date / Time nitrofurantoin Allergy Unknown Verified 01/05/24 22:02 [From Macrobid] haloperidol [From Haldol] AdvReac Numbness Verified 01/05/24 22:02 Mental Status Exam Mental Status Exam Patient Appearance: Well Grooomed and Appropriate Patient Orientation: Person and Situation Level of Consciousness: Awake and Appropriate Patient Behavior: Guarded and Passive Mood Description: Withdrawn Affect Description: Constricted Patient Cognition Impaired: Yes Ability to Follow Directions: Good Speech Pattern: Clear Hallucinations: None Delusions: Paranoid Ideation and Ideas of Reference Thought Process: Illogical, Distracted and Rumination Thought Content: positive for Perseveration and positive for Thought Blocking Judgement: Fair Assessment & Plan Assessment & Plan (1) Schizoaffective disorder, bipolar type: Status: Acute Code(s): F25.0 - Schizoaffective disorder, bipolar type (2) Dementia: Status: Acute Code(s): F03.90 - Unspecified dementia, unspecified severity, without behavioral disturbance, psychotic disturbance, mood disturbance, and anxiety Plan The patient is an elderly female with a long history of schizoaffective disorder bipolar type and dementia who lives in the community with good social support. She had been in the hospital several times with the same presentation, she stabilizes here in the unit and then later on, she becomes noncompliant. Apparently she had been noncompliant with her medications for the last month. Plan 1. Gather collateral information. 2. The patient is able to contract for safety so we are keeping her on 50 minute checks. 3. Continue with medical workout. 4. Continue with Zyprexa 2.5 p.o. q.h.s. to target psychosis. 5. Reassessment with results. Patient educated on: diagnosis Informed Consent: further education needed Reason for continued inpatient stay Substantial Risk for: inability to function, rapid decompensation and med/psych decompensation Statement Statement: I have reviewed the history and physical and performed a pertinent examination on my patient. No changes have occurred unless specified. If the History and Physical was not performed prior to admission, the Hospitalist's service will be consulted for completing the admission physical. Time Spent With Patient Time: Total time managing care of this patient today __45__ minutes.
[2024-01-07 20:00] VITALS: BP 136/76; PULSE 74; RESP 18; TEMP 36.5; O2SAT 97
[2024-01-07] MEDS: OLANZapine 2.5 MG TABLET PO (20:43)
[2024-01-08 08:00] VITALS: BP 141/65; PULSE 61; RESP 16; TEMP 36.8; O2SAT 98
[2024-01-08] MEDS: Cholecalciferol (Vitamin D3) 25 MCG TABLET PO (08:03)
[2024-01-08] MEDS: Aspirin Enteric Coated 81 MG TABLET.DR PO (08:03)
[2024-01-08] MEDS: amLODIPine Besylate 5 MG TABLET PO (08:03)
[2024-01-08] MEDS: Potassium Chloride ER 10 MEQ TABLET.ER PO (08:03)
[2024-01-08] MEDS: Multivitamin TABLET 1 TAB PO (08:04)
[2024-01-08] MEDS: carvediloL 6.25 MG TABLET PO ×2 (08:04→20:02)
[2024-01-08] MEDS: Magnesium Oxide 400 MG TABLET PO (08:04)
[2024-01-08] MEDS: lisinopriL 10 MG TABLET PO ×2 (08:04→20:01)
[2024-01-08] MEDS: Furosemide 40 MG TABLET PO (08:04)
--- NOTE | 2024-01-08 08:31 | HO.PSYCHPN ---
Subjective Subjective Date of Service: 01/08/24 Reason For Visit: schizoaffective disorder,bipolar type Interim History: Pleasant and engaged. Attending group. Sleep better. Less isolative. Denied depression, sleep or appetite issues. UA reviewed- unremarkable and no symptoms. Lower limb rash- cream ordered as per home meds. Medication Compliance: Yes Side effects from medications: No Attending Groups: Intermittent Review of Systems Acute medical concerns: No Review of Systems Review of Systems Yes all other systems are reviewed and are negative Mental Status Exam Mental Status Exam Patient Appearance: Well Grooomed and Appropriate Patient Orientation: Person and Situation Level of Consciousness: Awake and Appropriate Patient Behavior: Passive Mood Description: Withdrawn Affect Description: Constricted Patient Cognition Impaired: Yes Ability to Follow Directions: Good Speech Pattern: Clear Diagnostics Vital Signs (24Hr): Vital Signs - 24 hr 01/07/24 08:44 01/07/24 08:52 01/07/24 20:00 Temperature 99.5 F 97.7 F Pulse Rate 65 64 74 Respiratory Rate 15 18 Blood Pressure 110/57 L 129/63 136/76 Pulse Oximetry 96 97 Oxygen Delivery Method Room Air Room Air 01/08/24 08:00 Temperature 98.2 F Pulse Rate 61 Respiratory Rate 16 Blood Pressure 141/65 H Pulse Oximetry 98 Oxygen Delivery Method Room Air BMI result Body Mass Index 23.4 Labs 01/05/24 22:18 01/05/24 22:18 Labs: Laboratory Results - last 48 hr 01/07/24 01/07/24 07:42 10:00 Estimat Average Glucose 114 Hemoglobin A1c % 5.6 Magnesium 1.9 Triglycerides 136 Cholesterol 216 H LDL Cholesterol, Calc 132 H HDL Cholesterol 57 Vitamin B12 416 Folate 16.3 TSH 3.37 Free T4 1.06 Urine Color Yellow Urine Appearance Clear Urine pH 6.5 Ur Specific [place] <= 1.005 Urine Protein Negative Urine Glucose (UA) Negative Urine Ketones Negative Urine Blood Negative Urine Nitrite Negative Ur Leukocyte Esterase Negative Urine RBC 0-2 Urine WBC 0-5 Ur Squamous Epith Cells 0-2 Urine Bacteria None Seen Hyaline Casts 0-2 Imaging Radiology Impressions: ITS Impressions Chest X-Ray 01/05/24 22:08 IMPRESSION: No acute abnormality of chest. Electronically signed by: Gavino Espinoza MD 01/05/2024 11:11 PM EDT Medications Medications Current Medications Acetaminophen (Acetaminophen 325 Mg Tablet) 650 mg PO Q6H PRN PRN Reason: Headache/Pain Mild Scale (1-3) Al Hydroxide/Mg Hydroxide (Magnesium Hydrox/Alum Hydrox 30 Ml Oral.Susp) 30 ml PO Q6H PRN PRN Reason: Heartburn/Nausea Amlodipine Besylate (Amlodipine Besylate 5 Mg Tablet) 5 mg PO DAILY [facility]; Protocol Last Admin: 01/08/24 08:03 Dose: 5 mg Aspirin (Aspirin Enteric Coated 81 Mg Tablet.Dr) 81 mg PO DAILY [facility] Last Admin: 01/08/24 08:03 Dose: 81 mg Carvedilol (Carvedilol 6.25 Mg Tablet) 6.25 mg PO BID [facility]; Protocol Last Admin: 01/08/24 08:04 Dose: 6.25 mg Furosemide (Furosemide 40 Mg Tablet) 40 mg PO DAILY [facility]; Protocol Last Admin: 01/08/24 08:04 Dose: 40 mg Hydroxyzine HCl (Hydroxyzine Hcl 25 Mg Tablet) 25 mg PO Q6H PRN PRN Reason: Anxiety Lisinopril (Lisinopril 10 Mg Tablet) 10 mg PO BID [facility]; Protocol Last Admin: 01/08/24 08:04 Dose: 10 mg Magnesium Hydroxide (Milk Of Magnesia 30 Ml Oral.Susp) 30 ml PO DAILY PRN PRN Reason: Constipation Magnesium Oxide (Magnesium Oxide 400 Mg Tablet) 400 mg PO DAILY [facility] Last Admin: 01/08/24 08:04 Dose: 400 mg Multivitamins/Vitamin C (Multivitamin Tablet) 1 tab PO DAILY [facility] Last Admin: 01/08/24 08:04 Dose: 1 tab Nicotine Polacrilex (Nicotine Polacrilex 2 Mg Gum) 4 mg BUCCAL Q2H PRN PRN Reason: Nicotine Cravings Olanzapine (Olanzapine 2.5 Mg Tablet) 2.5 mg PO BEDTIME [facility] Last Admin: 01/07/24 20:43 Dose: 2.5 mg Potassium Chloride (Potassium Chloride Er 10 Meq Tablet.Er) 10 meq PO DAILY [facility] Last Admin: 01/08/24 08:03 Dose: 10 meq Trazodone HCl (Trazodone Hcl 50 Mg Tablet) 50 mg PO BEDTIME MRX1 PRN PRN Reason: Insomnia Vitamin D (Cholecalciferol (Vitamin D3) 25 Mcg Tablet) 25 mcg PO DAILY [facility] Last Admin: 01/08/24 08:03 Dose: 25 mcg Allergies Allergies Allergy/AdvReac Type Severity Reaction Status Date / Time nitrofurantoin Allergy Unknown Verified 01/05/24 22:02 [From Macrobid] haloperidol [From Haldol] AdvReac Numbness Verified 01/05/24 22:02 Assessment & Plan Assessment & Plan (1) Schizoaffective disorder, bipolar type: Status: Acute Code(s): F25.0 - Schizoaffective disorder, bipolar type (2) Dementia: Status: Acute Code(s): F03.90 - Unspecified dementia, unspecified severity, without behavioral disturbance, psychotic disturbance, mood disturbance, and anxiety Plan The patient is an elderly female with a long history of schizoaffective disorder bipolar type and dementia who lives in the community with good social support. She had been in the hospital several times with the same presentation, she stabilizes here in the unit and then later on, she becomes noncompliant. Apparently she had been noncompliant with her medications for the last month. Plan 1. Gather collateral information. 2. The patient is able to contract for safety so we are keeping her on 50 minute checks. 3. Continue with medical workout. 4. Continue with Zyprexa 2.5 p.o. q.h.s. to target psychosis. 5. Reassessment with results. 01/08/24: no changes, with exception or ordering creams for legs consistent with home med list Reason for continued inpatient stay Substantial Risk for: rapid decompensation Time Spent With Patient Time: Total time managing care of this patient today ____ minutes.
[2024-01-08] MEDS: Betamethasone Dip Aug 0.05% Cr 15 GM TUBE 1 APPL TOPICAL (13:12)
[2024-01-08 20:00] VITALS: BP 154/75; PULSE 74; RESP 18; TEMP 36.2; O2SAT 99
[2024-01-08 20:01] VITALS: BP 154/75
[2024-01-08 20:02] VITALS: BP 154/75; PULSE 74
[2024-01-08] MEDS: OLANZapine 2.5 MG TABLET PO (20:02)
[2024-01-09 07:55] VITALS: BP 139/65; PULSE 64; RESP 18; TEMP 36.7; O2SAT 97
[2024-01-09] MEDS: Cholecalciferol (Vitamin D3) 25 MCG TABLET PO (08:16)
[2024-01-09] MEDS: Furosemide 40 MG TABLET PO (08:16)
[2024-01-09] MEDS: Magnesium Oxide 400 MG TABLET PO (08:17)
[2024-01-09] MEDS: Aspirin Enteric Coated 81 MG TABLET.DR PO (08:17)
[2024-01-09] MEDS: carvediloL 6.25 MG TABLET PO ×2 (08:17→20:51)
[2024-01-09] MEDS: lisinopriL 10 MG TABLET PO ×2 (08:17→20:52)
[2024-01-09] MEDS: Multivitamin TABLET 1 TAB PO (08:17)
[2024-01-09] MEDS: Potassium Chloride ER 10 MEQ TABLET.ER PO (08:17)
[2024-01-09] MEDS: amLODIPine Besylate 5 MG TABLET PO (08:17)
--- NOTE | 2024-01-09 10:21 | P.PNPSI_ITS ---
Subjective Subjective Date of Service: 01/09/24 Reason For Visit: schizoaffective disorder,bipolar type Interim History: Pleasant and engaged. Attending group. Sleep better. Attending groups and in milieu. Denied depression, sleep or appetite issues. Reports feeling well and hopeful for discharge planning with primary team. Medication Compliance: Yes Side effects from medications: No Attending Groups: Yes Review of Systems Acute medical concerns: No Review of Systems Review of Systems Yes all other systems are reviewed and are negative Mental Status Exam Mental Status Exam Patient Appearance: Well Grooomed and Appropriate Patient Orientation: Person and Situation Level of Consciousness: Awake and Appropriate Patient Behavior: Appropriate Mood Description: Withdrawn Affect Description: Constricted Patient Cognition Impaired: Yes Ability to Follow Directions: Good Speech Pattern: Clear Diagnostics Vital Signs (24Hr): Vital Signs - 24 hr 01/08/24 20:00 01/08/24 20:01 01/08/24 20:02 Temperature 97.1 F Pulse Rate 74 74 Respiratory Rate 18 Blood Pressure 154/75 H 154/75 H 154/75 H Pulse Oximetry 99 Oxygen Delivery Method Room Air 01/09/24 07:55 Temperature 98.1 F Pulse Rate 64 Respiratory Rate 18 Blood Pressure 139/65 Pulse Oximetry 97 Oxygen Delivery Method Room Air BMI result Body Mass Index 23.4 Labs 01/05/24 22:18 01/05/24 22:18 Imaging Radiology Impressions: ITS Impressions Chest X-Ray 01/05/24 22:08 IMPRESSION: No acute abnormality of chest. Electronically signed by: Gavino Espinoza MD 01/05/2024 11:11 PM EDT RP Medications Medications Current Medications Acetaminophen (Acetaminophen 325 Mg Tablet) 650 mg PO Q6H PRN PRN Reason: Headache/Pain Mild Scale (1-3) Al Hydroxide/Mg Hydroxide (Magnesium Hydrox/Alum Hydrox 30 Ml Oral.Susp) 30 ml PO Q6H PRN PRN Reason: Heartburn/Nausea Amlodipine Besylate (Amlodipine Besylate 5 Mg Tablet) 5 mg PO DAILY [facility]; Protocol Last Admin: 01/09/24 08:17 Dose: 5 mg Aspirin (Aspirin Enteric Coated 81 Mg Tablet.) 81 mg PO DAILY [facility] Last Admin: 01/09/24 08:17 Dose: 81 mg Betamethasone Dipropion Augmented (Betamethasone Dip Aug 0.05% Cr 15 Gm Tube) 1 appl TOPICAL BID [facility]; Protocol Last Admin: 01/09/24 08:21 Dose: Not Given Carvedilol (Carvedilol 6.25 Mg Tablet) 6.25 mg PO BID [facility]; Protocol Last Admin: 01/09/24 08:17 Dose: 6.25 mg Clotrimazole (Clotrimazole 1 % Cream 15 Gm Tube) 1 appl TOPICAL BID [facility]; Protocol Last Admin: 01/09/24 08:20 Dose: Not Given Furosemide (Furosemide 40 Mg Tablet) 40 mg PO DAILY [facility]; Protocol Last Admin: 01/09/24 08:16 Dose: 40 mg Hydroxyzine HCl (Hydroxyzine Hcl 25 Mg Tablet) 25 mg PO Q6H PRN PRN Reason: Anxiety Lisinopril (Lisinopril 10 Mg Tablet) 10 mg PO BID [facility]; Protocol Last Admin: 01/09/24 08:17 Dose: 10 mg Magnesium Hydroxide (Milk Of Magnesia 30 Ml Oral.Susp) 30 ml PO DAILY PRN PRN Reason: Constipation Magnesium Oxide (Magnesium Oxide 400 Mg Tablet) 400 mg PO DAILY [facility] Last Admin: 01/09/24 08:17 Dose: 400 mg Multivitamins/Vitamin C (Multivitamin Tablet) 1 tab PO DAILY [facility] Last Admin: 01/09/24 08:17 Dose: 1 tab Nicotine Polacrilex (Nicotine Polacrilex 2 Mg Gum) 4 mg BUCCAL Q2H PRN PRN Reason: Nicotine Cravings Olanzapine (Olanzapine 2.5 Mg Tablet) 2.5 mg PO BEDTIME [facility] Last Admin: 01/08/24 20:02 Dose: 2.5 mg Potassium Chloride (Potassium Chloride Er 10 Meq Tablet.Er) 10 meq PO DAILY [facility] Last Admin: 01/09/24 08:17 Dose: 10 meq Trazodone HCl (Trazodone Hcl 50 Mg Tablet) 50 mg PO BEDTIME MRX1 PRN PRN Reason: Insomnia Vitamin D (Cholecalciferol (Vitamin D3) 25 Mcg Tablet) 25 mcg PO DAILY [facility] Last Admin: 01/09/24 08:16 Dose: 25 mcg Allergies Allergies Allergy/AdvReac Type Severity Reaction Status Date / Time nitrofurantoin Allergy Unknown Verified 01/05/24 22:02 [From Macrobid] haloperidol [From Haldol] AdvReac Numbness Verified 01/05/24 22:02 Assessment & Plan Assessment & Plan (1) Schizoaffective disorder, bipolar type: Status: Acute Code(s): F25.0 - Schizoaffective disorder, bipolar type (2) Dementia: Status: Acute Code(s): F03.90 - Unspecified dementia, unspecified severity, without behavioral disturbance, psychotic disturbance, mood disturbance, and anxiety Plan The patient is an elderly female with a long history of schizoaffective disorder bipolar type and dementia who lives in the community with good social support. She had been in the hospital several times with the same presentation, she stabilizes here in the unit and then later on, she becomes noncompliant. Apparently she had been noncompliant with her medications for the last month. Plan 1. Gather collateral information. 2. The patient is able to contract for safety so we are keeping her on 50 minute checks. 3. Continue with medical workout. 4. Continue with Zyprexa 2.5 p.o. q.h.s. to target psychosis. 5. Reassessment with results. 01/09/24: no changes Reason for continued inpatient stay Substantial Risk for: rapid decompensation Time Spent With Patient Time: Total time managing care of this patient today ____ minutes.
[2024-01-09 20:00] VITALS: BP 134/88; PULSE 69; RESP 16; TEMP 36.2; O2SAT 94
[2024-01-09 20:51] VITALS: BP 134/88; PULSE 69
[2024-01-09] MEDS: OLANZapine 2.5 MG TABLET PO (20:51)
[2024-01-09 20:52] VITALS: BP 134/88
[2024-01-10 08:00] VITALS: BP 122/70; PULSE 65; RESP 16; TEMP 36.6; O2SAT 96
[2024-01-10] MEDS: Multivitamin TABLET 1 TAB PO (08:52)
[2024-01-10] MEDS: Magnesium Oxide 400 MG TABLET PO (08:53)
[2024-01-10] MEDS: Potassium Chloride ER 10 MEQ TABLET.ER PO (08:53)
[2024-01-10 08:54] VITALS: BP 122/70; PULSE 65
[2024-01-10] MEDS: lisinopriL 10 MG TABLET PO ×2 (08:54→21:18)
[2024-01-10] MEDS: carvediloL 6.25 MG TABLET PO ×2 (08:54→21:09)
[2024-01-10 08:55] VITALS: BP 122/70
[2024-01-10] MEDS: Cholecalciferol (Vitamin D3) 25 MCG TABLET PO (08:55)
[2024-01-10] MEDS: amLODIPine Besylate 5 MG TABLET PO (08:55)
[2024-01-10] MEDS: Furosemide 40 MG TABLET PO (08:55)
[2024-01-10] MEDS: Aspirin Enteric Coated 81 MG TABLET.DR PO (08:56)
--- NOTE | 2024-01-10 15:29 | HO.PSYCHPN ---
Subjective Subjective Date of Service: 01/10/24 Reason For Visit: schizoaffective disorder,bipolar type Subjective Notes: Section 12B Interim History: The nursing staff reported the patient had been compliant with treatment, she had been visible in the unit eating well, she slept well. On interview the patient reported that she wants to go back home she denies suicidal or homicidal thoughts she is pleasant, cooperative. She has poor insight into her compliance. At this moment I offered her another staff a conditional voluntary but she refused and there is no evidence of acute safety concerns or most likely will have to discharge her tomorrow. Mental Status Exam Mental Status Exam Patient Appearance: Appropriate Patient Orientation: Person and Situation Level of Consciousness: Awake and Appropriate Patient Behavior: Guarded and Passive Mood Description: Calm Affect Description: Constricted Patient Cognition Impaired: Yes Ability to Follow Directions: Good Speech Pattern: Clear Hallucinations: None Delusions: Not Present Thought Process: Distracted and Slowed Thinking Thought Content: positive for [place], positive for [place] and positive for Poverty of Content Judgement: Fair Diagnostics Vital Signs (24Hr): Vital Signs - 24 hr 01/09/24 20:00 01/09/24 20:51 01/09/24 20:52 Temperature 97.2 F Pulse Rate 69 69 Respiratory Rate 16 Blood Pressure 134/88 134/88 134/88 Pulse Oximetry 94 Oxygen Delivery Method Room Air 01/10/24 08:00 01/10/24 08:54 01/10/24 08:54 Temperature 98 F Pulse Rate 65 65 Respiratory Rate 16 Blood Pressure 122/70 122/70 122/70 Pulse Oximetry 96 Oxygen Delivery Method Room Air 01/10/24 08:55 01/10/24 08:55 Temperature Pulse Rate Respiratory Rate Blood Pressure 122/70 122/70 Pulse Oximetry Oxygen Delivery Method BMI result Body Mass Index 23.4 Labs 01/05/24 22:18 01/05/24 22:18 Imaging Radiology Impressions: ITS Impressions Chest X-Ray 01/05/24 22:08 IMPRESSION: No acute abnormality of chest. Electronically signed by: Gavino Espinoza MD 01/05/2024 11:11 PM EDT RP Medications Medications Current Medications Acetaminophen (Acetaminophen 325 Mg Tablet) 650 mg PO Q6H PRN PRN Reason: Headache/Pain Mild Scale (1-3) Al Hydroxide/Mg Hydroxide (Magnesium Hydrox/Alum Hydrox 30 Ml Oral.Susp) 30 ml PO Q6H PRN PRN Reason: Heartburn/Nausea Amlodipine Besylate (Amlodipine Besylate 5 Mg Tablet) 5 mg PO DAILY [facility]; Protocol Last Admin: 01/10/24 08:55 Dose: 5 mg Aspirin (Aspirin Enteric Coated 81 Mg Tablet.Dr) 81 mg PO DAILY [facility] Last Admin: 01/10/24 08:56 Dose: 81 mg Betamethasone Dipropion Augmented (Betamethasone Dip Aug 0.05% Cr 15 Gm Tube) 1 appl TOPICAL BID [facility]; Protocol Last Admin: 01/10/24 13:37 Dose: Not Given Carvedilol (Carvedilol 6.25 Mg Tablet) 6.25 mg PO BID [facility]; Protocol Last Admin: 01/10/24 08:54 Dose: 6.25 mg Clotrimazole (Clotrimazole 1 % Cream 15 Gm Tube) 1 appl TOPICAL BID [facility]; Protocol Last Admin: 01/10/24 13:37 Dose: Not Given Furosemide (Furosemide 40 Mg Tablet) 40 mg PO DAILY [facility]; Protocol Last Admin: 01/10/24 08:55 Dose: 40 mg Hydroxyzine HCl (Hydroxyzine Hcl 25 Mg Tablet) 25 mg PO Q6H PRN PRN Reason: Anxiety Lisinopril (Lisinopril 10 Mg Tablet) 10 mg PO BID [facility]; Protocol Last Admin: 01/10/24 08:54 Dose: 10 mg Magnesium Hydroxide (Milk Of Magnesia 30 Ml Oral.Susp) 30 ml PO DAILY PRN PRN Reason: Constipation Magnesium Oxide (Magnesium Oxide 400 Mg Tablet) 400 mg PO DAILY [facility] Last Admin: 01/10/24 08:53 Dose: 400 mg Multivitamins/Vitamin C (Multivitamin Tablet) 1 tab PO DAILY [facility] Last Admin: 01/10/24 08:52 Dose: 1 tab Nicotine Polacrilex (Nicotine Polacrilex 2 Mg Gum) 4 mg BUCCAL Q2H PRN PRN Reason: Nicotine Cravings Olanzapine (Olanzapine 2.5 Mg Tablet) 2.5 mg PO BEDTIME [facility] Last Admin: 01/09/24 20:51 Dose: 2.5 mg Potassium Chloride (Potassium Chloride Er 10 Meq Tablet.Er) 10 meq PO DAILY [facility] Last Admin: 01/10/24 08:53 Dose: 10 meq Trazodone HCl (Trazodone Hcl 50 Mg Tablet) 50 mg PO BEDTIME MRX1 PRN PRN Reason: Insomnia Vitamin D (Cholecalciferol (Vitamin D3) 25 Mcg Tablet) 25 mcg PO DAILY [facility] Last Admin: 01/10/24 08:55 Dose: 25 mcg Allergies Allergies Allergy/AdvReac Type Severity Reaction Status Date / Time nitrofurantoin Allergy Unknown Verified 01/05/24 22:02 [From Macrobid] haloperidol [From Haldol] AdvReac Numbness Verified 01/05/24 22:02 Assessment & Plan Assessment & Plan (1) Schizoaffective disorder, bipolar type: Status: Acute Code(s): F25.0 - Schizoaffective disorder, bipolar type (2) Dementia: Status: Acute Code(s): F03.90 - Unspecified dementia, unspecified severity, without behavioral disturbance, psychotic disturbance, mood disturbance, and anxiety Plan The patient is an elderly female with a long history of schizoaffective disorder bipolar type and dementia who lives in the community with good social support. She had been in the hospital several times with the same presentation, she stabilizes here in the unit and then later on, she becomes noncompliant. Apparently she had been noncompliant with her medications for the last month. Plan 1. Gather collateral information. 2. The patient is able to contract for safety so we are keeping her on 50 minute checks. 3. Continue with medical workout. 4. Continue with Zyprexa 2.5 p.o. q.h.s. to target psychosis. 5. Reassessment with results. 6. The patient has refused to sign CV and at this moment she is on a 12 be so she must be discharged tomorrow since there is no acute safety concerns. Reason for continued inpatient stay Substantial Risk for: inability to function, rapid decompensation and med/psych decompensation Time Spent With Patient Time: Total time managing care of this patient today __20__ minutes.
[2024-01-10 20:00] VITALS: BP 152/74; PULSE 69; RESP 16; TEMP 36.6; O2SAT 97
[2024-01-10 21:09] VITALS: BP 152/74; PULSE 69
[2024-01-10] MEDS: OLANZapine 2.5 MG TABLET PO (21:10)
[2024-01-10 21:18] VITALS: BP 152/74
[2024-01-11 08:11] VITALS: BP 124/54; PULSE 69; RESP 15; TEMP 37.1; O2SAT 96
[2024-01-11] MEDS: Furosemide 40 MG TABLET PO (08:13)
[2024-01-11] MEDS: Cholecalciferol (Vitamin D3) 25 MCG TABLET PO (08:13)
[2024-01-11] MEDS: lisinopriL 10 MG TABLET PO (08:13)
[2024-01-11] MEDS: Magnesium Oxide 400 MG TABLET PO (08:14)
[2024-01-11] MEDS: Multivitamin TABLET 1 TAB PO (08:14)
[2024-01-11] MEDS: Potassium Chloride ER 10 MEQ TABLET.ER PO (08:14)
[2024-01-11] MEDS: carvediloL 6.25 MG TABLET PO (08:14)
[2024-01-11] MEDS: Aspirin Enteric Coated 81 MG TABLET.DR PO (08:14)
[2024-01-11] MEDS: amLODIPine Besylate 5 MG TABLET PO (08:14)
--- NOTE | 2024-01-11 08:24 | PM.PSYDC ---
DS: Providers Provider Date of Service: 01/11/24 Date of admission: 01/06/24 17:56 Date of discharge: 01/11/24 Primary care physician: Garrison Beatty MD DS: Diagnosis Discharge Diagnosis (1) Schizoaffective disorder, bipolar type: Status: Acute (2) Dementia: Status: Acute DS: Medications Discharge Medications Home Medications: Home Medications ?Medication ?Instructions ?Recorded ?Confirmed clotrimazole-betamethasone 1 2 appl topical BID 01/06/24 01/06/24 %-0.05 % topical cream olanzapine 2.5 mg tablet 2.5 mg PO BEDTIME 01/06/24 01/06/24 Previous Rx's ?Medication ?Instructions ?Recorded amlodipine 5 mg tablet 5 mg PO DAILY #30 tabs 02/25/22 aspirin 81 mg tablet,delayed 81 mg PO DAILY #30 tabs 02/25/22 release carvedilol 6.25 mg tablet 6.25 mg PO BID #60 tabs 02/25/22 cholecalciferol (vitamin D3) 25 25 mcg PO DAILY #30 tabs 02/25/22 mcg (1,000 unit) tablet furosemide 40 mg tablet 40 mg PO DAILY #30 tabs 02/25/22 lisinopril 10 mg tablet 10 mg PO BID #60 tabs 02/25/22 magnesium oxide 400 mg (241.3 mg 400 mg PO DAILY #30 tabs 02/25/22 magnesium) tablet multivitamin (Daily-Brielle tablet) 1 tab PO DAILY #30 tabs 02/25/22 potassium chloride 10 mEq 10 meq PO DAILY #30 caps 02/25/22 capsule,extended release Mental Status Exam Mental Status Exam Patient Appearance: Well Grooomed and Appropriate Patient Orientation: Person and Situation Level of Consciousness: Awake and Appropriate Patient Behavior: Guarded and Passive Mood Description: Calm Affect Description: Constricted Patient Cognition Impaired: Yes Ability to Follow Directions: Good Speech Pattern: Clear Hallucinations: None Delusions: Not Present Thought Process: Distracted Thought Content: positive for [place] and positive for [place] Judgement: Fair Data Data Completed and Pending Completed studies during hospitalization [Text1]: 01/05/24 01/05/24 01/07/24 22:18 22:36 07:42 WBC 8.7 RBC 4.56 Hgb 14.5 Hct 41.3 MCV 90.6 MCH 31.8 MCHC 35.1 H RDW 12.1 Plt Count 289 MPV 9.4 Immature Gran % (Auto) 0.3 Neut % (Auto) 55.9 Lymph % (Auto) 31.4 [place] % (Auto) 10.2 Eos % (Auto) 1.5 Baso % (Auto) 0.7 Lymph # (Auto) 2.7 [place] # (Auto) 0.9 Eos # (Auto) 0.1 Baso # (Auto) 0.1 Abs Immat Gran (auto) 0.03 Absolute Neuts (auto) 4.9 Absolute Nucleated RBC 0.000 Nucleated RBC % (auto) 0.0 Sodium 138 Potassium 3.9 Chloride 98 Carbon Dioxide 27 Anion Gap 17 BUN 31 H Creatinine 1.10 Estim Creat Clear Calc 33.3 Estimated GFR 48 Random Glucose 141 H Estimat Average Glucose 114 Hemoglobin A1c % 5.6 Calcium 10.1 Magnesium 1.9 Troponin I High Sens 9.1 Triglycerides 136 Cholesterol 216 H LDL Cholesterol, Calc 132 H HDL Cholesterol 57 Vitamin B12 416 Folate 16.3 TSH 3.37 Free T4 1.06 Urine Color Yellow Urine Appearance Clear Urine pH 5.5 Ur Specific [place] 1.020 Urine Protein Negative Urine Glucose (UA) Negative Urine Ketones Negative Urine Blood Negative Urine Nitrite Negative Ur Leukocyte Esterase Small (1+) H Urine RBC 0-2 Urine WBC 0-5 Ur Squamous Epith Cells 0-2 Urine Bacteria None Seen Hyaline Casts 0-2 Urine Test NEGATIVE Urine Opiates Screen Not Detected Ur Buprenorphine Scrn Not Detected Ur Oxycodone Screen Not Detected Urine Methadone Screen Not Detected Urine Fentanyl Screen Not Detected Ur Barbiturates Screen Not Detected Ur Phencyclidine Scrn Not Detected Ur Amphetamines Screen Not Detected U Benzodiazepines Scrn Not Detected Urine Cocaine Screen Not Detected U Marijuana (THC) Screen Not Detected Ethyl Alcohol < 10 01/07/24 10:00 WBC RBC Hgb Hct MCV MCH MCHC RDW Plt Count MPV Immature Gran % (Auto) Neut % (Auto) Lymph % (Auto) [place] % (Auto) Eos % (Auto) Baso % (Auto) Lymph # (Auto) [place] # (Auto) Eos # (Auto) Baso # (Auto) Abs Immat Gran (auto) Absolute Neuts (auto) Absolute Nucleated RBC Nucleated RBC % (auto) Sodium Potassium Chloride Carbon Dioxide Anion Gap BUN Creatinine Estim Creat Clear Calc Estimated GFR Random Glucose Estimat Average Glucose Hemoglobin A1c % Calcium Magnesium Troponin I High Sens Triglycerides Cholesterol LDL Cholesterol, Calc HDL Cholesterol Vitamin B12 Folate TSH Free T4 Urine Color Yellow Urine Appearance Clear Urine pH 6.5 Ur Specific [place] <= 1.005 Urine Protein Negative Urine Glucose (UA) Negative Urine Ketones Negative Urine Blood Negative Urine Nitrite Negative Ur Leukocyte Esterase Negative Urine RBC 0-2 Urine WBC 0-5 Ur Squamous Epith Cells 0-2 Urine Bacteria None Seen Hyaline Casts 0-2 Urine Test Urine Opiates Screen Ur Buprenorphine Scrn Ur Oxycodone Screen Urine Methadone Screen Urine Fentanyl Screen Ur Barbiturates Screen Ur Phencyclidine Scrn Ur Amphetamines Screen U Benzodiazepines Scrn Urine Cocaine Screen U Marijuana (THC) Screen Ethyl Alcohol 01/05/24 22:36 Urine clean catch - Clean Catch Midstream Urine Culture - Final Pseudomonas aeruginosa Imaging Diagnostic Imaging Impressions Chest X-Ray 01/05/24 22:08 IMPRESSION: No acute abnormality of chest. Electronically signed by: Gavino Espinoza MD 01/05/2024 11:11 PM EDT RP DS: Summary Hospital Course Hospital Course: The patient is a 78-year-old female, , with a past history of schizoaffective disorder bipolar type, very well known by this team since she had been admitted several times at this facility with similar presentation. The patient was brought to the emergency room by her son since he reported the patient had been noncompliant with her Zyprexa. The patient was assessed by crisis and transferring to this facility for psychiatric stabilization. Please see the HPI of the admission note for further details. On admission the patient agreed to restart Zyprexa 2.5 mg p.o. q.h.s.. She adamantly refused to sign a CV and since the patient does not have an affirmed healthcare proxy or guardian, we were unable to continue treatment with her. While she was in the unit, the patient was pleasant, cooperative, attending to a few groups, fully compliant with her treatment. The patient is slightly perseverative but there is no evidence of hallucinations or delusions or any safety concerns. Since the patient is not willing to sign CV and the Section 12 B's expiring we needed to discharge her to her home. Time spent discussing smoking cessation with patient: 3 to 10 minutes Status at Discharge Cognitive/behavioral status at discharge: Impaired at baseline Functional status at discharge: independent ambulation Overall status at discharge: patient is back to baseline Time Spent with Patient Time attestation: Total time managing care of this patient today ___30_ minutes. Time spent: Less than 30 minutes Discharge Plan Discharge Anticipated Discharge Date/Time: 01/11/24 12:00 Patient Disposition: Home, Self-Care Discharge Diagnosis: Schizoaffective bipolar type Dementia Referrals: Nellie Antunez [facility] [Other] - 02/08/24 12:30 pm Garrison Beatty MD [Primary Care Provider] - 1 Week Discharge Medications: New carvedilol 6.25 mg Tablet 6.25 mg PO BID 30 Days Qty: 60 0RF Protocol: Hold for SBP/HR < HOLD for SBP < : 90 HOLD for HR < : 60 lisinopril 10 mg Tablet 10 mg PO BID 30 Days Qty: 60 0RF Protocol: Hold for SBP< HOLD for SBP < : 90 furosemide 40 mg Tablet 40 mg PO DAILY 30 Days Qty: 30 0RF Protocol: Hold for SBP< HOLD for SBP < : 90 betamethasone, augmented 0.05 % Cream 1 appl topical BID 30 Days Qty: 5 0RF Protocol: Apply to: Apply to: legs clotrimazole 1 % Cream 1 appl topical BID 30 Days Qty: 5 0RF Protocol: Apply to: Apply to: legs Continued multivitamin [Daily-Brielle] Tablet 1 tab PO DAILY Qty: 30 0RF potassium chloride 10 mEq Capsule, Extended Release 10 meq PO DAILY 30 Days Qty: 30 0RF amlodipine 5 mg Tablet 5 mg PO DAILY 30 Days Qty: 30 0RF Protocol: Hold for SBP< HOLD for SBP < : 90 olanzapine 2.5 mg tablet 2.5 mg PO BEDTIME 30 Days Qty: 30 0RF aspirin 81 mg Tablet,Delayed Release (Dr/Ec) 81 mg PO DAILY Qty: 30 0RF magnesium oxide 400 mg (241.3 mg magnesium) Tablet 400 mg PO DAILY Qty: 30 0RF cholecalciferol (vitamin D3) 25 mcg (1,000 unit) Tablet 25 mcg PO DAILY Qty: 30 0RF Discontinued carvedilol 6.25 mg Tablet 6.25 mg PO BID Qty: 60 0RF Protocol: Hold for SBP/HR < HOLD for SBP < : 90 HOLD for HR < : 60 lisinopril 10 mg Tablet 10 mg PO BID Qty: 60 0RF Protocol: Hold for SBP< HOLD for SBP < : 90 furosemide 40 mg Tablet 40 mg PO DAILY Qty: 30 0RF Protocol: Hold for SBP< HOLD for SBP < : 90 clotrimazole-betamethasone 1-0.05 % cream 2 appl TOPICAL BID Discharge Orders: Discharge Order (Routine); Ordered 01/11/24 Ordered By: Nirmal Dickinson Diet: Advance to usual diet Activity on Discharge: As tolerated Stand Alone Forms: Patient Portal Discharge page Print Language: Sinhala Care Plan Goals: Care plan goals achieved in this admission Health Concerns: Continue treatment with primary care physician and other specialists. Plan of Treatment: Continue treatment as an outpatient by psychiatric providers. Assessment: Elderly female with a history of schizoaffective disorder bipolar type and mild dementia who had brought the facility again for noncompliance. Restarted on her Zyprexa with no evidence of worsening of her affect or safety concerns. The patient refused to sign a CV and since there is no healthcare proxy affirmed she is discharged to her home with outpatient providers and other ancillary services.
== END 2024-01-11 16:45 | disposition home or self-care (01) | DRG 885 ==
LOC: HO.ED 01-06 11:08 → HO.PGERI 01-06 18:00
PROVIDERS: Psychiatry & Neurology Psychiatry; Admitting Provider Clinical Nurse Specialist Psychiatric/Mental Health, Adult; Emergency Provider Emergency Medicine; PCP Internal Medicine; Visit Provider Clinical Nurse Specialist Psychiatric/Mental Health, Adult
DX: F25.0 Schizoaffective disorder, bipolar type (principal); I25.10 Atherosclerotic heart disease of native coronary artery without angina pectoris; F03.90 Unspecified dementia, unspecified severity, without behavioral disturbance, psychotic disturbance, mood disturbance, and anxiety; Z95.1 Presence of aortocoronary bypass graft; Z79.82 Long term (current) use of aspirin; Z79.899 Other long term (current) drug therapy
CPT/HCPCS: 36415; 71046; 80048; 80061; 80307; 81001; 81025; 82607; 82746; 83036; 83735; 84439; 84443; 84484; 85025; 87086; 87088; 87186; 93005; 99285; S9485

== ENCOUNTER → 2024-01-05 22:05 | Outpatient (BNV) | payer MEDICARE, SELFPAY | PROVIDERS: Admitting Provider Clinical Nurse Specialist Psychiatric/Mental Health, Adult; Emergency Provider Emergency Medicine; PCP Internal Medicine; Visit Provider Internal Medicine | DX: R94.31 Abnormal electrocardiogram [ECG] [EKG] (principal) | CPT/HCPCS: 93010 ==

== ENCOUNTER → 2024-01-06 17:56 | Outpatient (BNV) | payer MEDICARE, SELFPAY | PROVIDERS: Admitting Provider Clinical Nurse Specialist Psychiatric/Mental Health, Adult; Emergency Provider Emergency Medicine; PCP Internal Medicine; Visit Provider Psychiatry & Neurology Psychiatry | DX: F25.0 Schizoaffective disorder, bipolar type (principal); F03.90 Unspecified dementia, unspecified severity, without behavioral disturbance, psychotic disturbance, mood disturbance, and anxiety | CPT/HCPCS: 90792; 99231; 99232; 99238 ==

== ENCOUNTER 2024-06-19 20:50 | Inpatient (IN) | payer MEDICARE, SELFPAY ==
[2024-06-19 20:53] VITALS: BP 138/70; PULSE 69; RESP 14; TEMP 36.9; O2SAT 96; BMI 21.8
--- NOTE | 2024-06-19 21:51 | PC.NURSE ---
Patient is alert and oriented x4, pleasant and cooperative. Patient denies any pain. Patient changed into a pod attire. Patient offers no complaints at this time. Patient's son at bed side, patient is awaiting to be seen by ED provider.
[2024-06-19 22:14] LABS: MANUAL DIFF FLAG NO
[2024-06-19 22:16] LABS: Basophils Absolute Auto 0.1 X10*3/uL (0.0-0.2); Basophils Percent Auto 0.6 % (0-2); Eosinophils Absolute Auto 0.1 X10*3/uL (0.0-0.4); Hematocrit 38.1 % (37.0-47.0); Hemoglobin 13.6 g/dl (12.0-16.0); Imm Gran Abs Auto 0.03 X10*3/uL (0.00-0.03); Imm Gran Pct Auto 0.4 % (0.0-0.4); Lymphocytes Absolute Auto 2.1 X10*3/uL (1.2-4.9); Lymphocytes Percent Auto 25.4 % (20-40); Mean Corpuscular HGB Conc 35.7 g/dl (31.0-35.0); Mean Corpuscular Hemoglobin 32.2 pg (27.0-33.0); Mean Corpuscular Volume 90.3 fL (80.0-98.0); Mean Platelet Volume 9.2 fL (9.4-12.3); Monocytes Absolute Auto 0.8 X10*3/uL (0.1-1.2); Monocytes Percent Auto 9.9 % (2-11); Neutrophils Absolute Auto 5.2 x10*3/uL (2.0-8.3); Neutrophils Percent Auto 62.7 % (45-73); Platelet Count 306 X10*3/uL (160-400); Red Blood Count 4.22 X10*6/uL (4.20-5.50); Red Cell Distribution Width 12.2 % (11.0-16.0); White Blood Count 8.3 X10*3/uL (4.8-10.8)
[2024-06-19 22:17] LABS: Appearance Urine Clear; Color Urine Yellow; Glucose Urine UA Negative (Negative); Leukocyte Esterase Urine Negative (Negative); Nitrite Urine Negative (Negative); PH 6.5 (5.0-9.0); Urine Blood Negative (Negative); Urine Ketones Trace mg/dL (Negative); Urine Protein Negative (Neg-Trace)
[2024-06-19 22:29] LABS: Alanine Aminotransferase 21 U/L (0-31); Albumin Level 4.1 g/dL (3.5-5.0); Alkaline Phosphatase 90 U/L (39-117); Anion Gap 15 (12-20); Aspartate Amino Transferase 24 U/L (5-31); Bilirubin Total 0.3 mg/dL (0.0-1.0); Blood Urea Nitrogen 23 mg/dL (9-16); Calcium 9.8 mg/dL (8.4-10.2); Carbon Dioxide 23 mmol/L (22-29); Chloride 104 mmol/L (96-108); Creatinine Clr Calc Pharmacy 51.6; Estimated Glomerular Filt Rate > 60; Glucose Random 99 mg/dL (60-115); Potassium 3.8 mmol/L (3.3-5.1); Sodium 138 mmol/L (135-145); Total Protein 6.9 g/dL (6.5-8.0)
--- NOTE | 2024-06-19 23:12 | PC.NURSE ---
Patient requested and given turkey sandwich, vanilla pudding, and water, tiolearted well.
--- NOTE | 2024-06-19 23:13 | PC.NURSE ---
Patient is calm, resting on a stretcher bed, offers no complaints at present, awaiting to be seen by ED provider.
--- NOTE | 2024-06-19 23:20 | PC.NURSE ---
Patient noted to have intermittent delusional thoughts. Patient stated I don't know if they did my blood work, I don't see any gilbert from the needle on my skin . This RN reminded patient that her labs were drawn from AC and showed to patient blood draw site. Patient continues to present with calm, cooperative behavior and patiently waiting to be seen by ED provider in a stretcher bed.
[2024-06-20] VITALS (8 sets, daily range): BP systolic 116–161; BP diastolic 58–84; PULSE 66–77; RESP 16–18; TEMP 36.3–36.8; O2SAT 97–98; BMI 21.6
--- NOTE | 2024-06-20 01:29 | ED_ITS ---
HPI - Psych General Chief Complaint: Psychiatric Symptoms Stated Complaint: crisis Time Seen by Provider: 06/20/24 01:29 Source: patient and old records reviewed Mode of arrival: ambulatory History of Present Illness ED Provider: HPI Narrative: Patient's history of schizoaffective disorder and bipolar disorder supposed to be on olanzapine 2.5 mg at nighttime lives in jail complex brought by EMS for delusional behavior and increased confusion and argumentative after a welfare check performed by PD patient is noncompliant to the medication for last 2 weeks Related Data Home Medications ?Medication ?Instructions ?Recorded ?Confirmed ezetimibe 10 mg tablet 10 mg PO DAILY 06/20/24 Previous Rx's ?Medication ?Instructions ?Recorded amlodipine 5 mg tablet 5 mg PO DAILY 30 days #30 tabs 01/11/24 aspirin 81 mg tablet,delayed 81 mg PO DAILY #30 tabs 01/11/24 release betamethasone, augmented 0.05 % 1 appl topical BID 30 days #5 grams 01/11/24 topical cream carvedilol 6.25 mg tablet 6.25 mg PO BID 30 days #60 tabs 01/11/24 cholecalciferol (vitamin D3) 25 25 mcg PO DAILY #30 tabs 01/11/24 mcg (1,000 unit) tablet clotrimazole 1 % topical cream 1 appl topical BID 30 days #5 grams 01/11/24 furosemide 40 mg tablet 40 mg PO DAILY 30 days #30 tabs 01/11/24 lisinopril 10 mg tablet 10 mg PO BID 30 days #60 tabs 01/11/24 magnesium oxide 400 mg (241.3 mg 400 mg PO DAILY #30 tabs 01/11/24 magnesium) tablet multivitamin (Daily-Brielle tablet) 1 tab PO DAILY #30 tabs 01/11/24 olanzapine 2.5 mg tablet 2.5 mg PO BEDTIME 30 days #30 tabs 01/11/24 potassium chloride 10 mEq 10 meq PO DAILY 30 days #30 caps 01/11/24 capsule,extended release Allergies Allergy/AdvReac Type Severity Reaction Status Date / Time nitrofurantoin Allergy Unknown Verified 06/19/24 20:58 [From Macrobid] haloperidol [From Haldol] AdvReac Numbness Verified 06/19/24 20:58 Review of Systems 2 Review of Systems: Yes all other systems are reviewed and are negative PMFSH Past Medical History Medical History Ischemic cardiomyopathy Essential hypertension Coronary artery disease Schizoaffective disorder, bipolar type Surgical History S/P CABG (coronary artery bypass graft) Social History Social History Household Members: None Household Members Other:: Pt reports she lives alone. Housing: Apartment Do you presently have visiting nurse or other home services: No Alcohol intake: never Patient Tobacco Use Status: Never used Tobacco Smoked in Last 30 Days: No e-Cigarette/Vaping Use: Never Used Use of substances other than those prescribed or required for medical reasons: No Advance Directives: No Advance Directives Information Provided: Yes Advance Directives Date on File: 03/06/21 Do you have a plan to hurt others: No Plan service: No Sexual orientation: Straight/Heterosexual Physical Exam 2 Vital Signs: Vital Signs: Last Vital Signs Temp 97.8 F 06/20/24 06:35 Pulse 77 06/20/24 09:29 Resp 18 06/20/24 06:35 BP 148/84 H 06/20/24 09:29 Pulse Ox 98 06/20/24 06:35 O2 Del Method Room Air 06/20/24 06:35 BMI result Body Mass Index 21.8 Appearance: Alert. Oriented X3. No acute distress. Eyes: PERRLA, No Nystagmus ENT: Pharynx normal. Oral Mucosa moist Neck: Normal inspection. Neck supple. CVS: Normal heart rate and rhythm. Pulses normal. Respiratory: No respiratory distress. Equal air entry bilateral, no wheezing/rales/rhonchi Abdomen: Soft and nontender. Bowel sounds are present, no mass palpable, no CVA tenderness Skin: Skin warm and dry. Normal skin color. Normal skin turgor. Extremities: No lower extremity edema. No calf tenderness psych: Calm and cooperative denies any hallucinations or delusions at this time Neuro: Oriented X 3. No motor deficit. No sensory deficit.No cerebellar signs , cranial nerves II-XII intact Course Reevaluation(s) Reevaluation #1: Time: 16:15 Date: 06/20/24 Provider: Wiliam Mcdermott MD Patient in physician observation for psychiatric evaluation.? No acute events reported overnight. No current complaints. VS stable.? Patient is in bed search status/pending CARE team evaluation. Will continue to monitor. Reevaluation #2: pt will be admited to [facility] Time: 16:16 Medications Administered Generic Name Dose Route Start Last Admin Trade Name Freq PRN Reason Stop Dose Admin Amlodipine Besylate 5 mg 06/20/24 09:00 06/20/24 09:28 Amlodipine Besylate 5 Mg Tablet PO 5 mg DAILY JOHNATHAN Administration Protocol Aspirin 81 mg 06/20/24 09:00 06/20/24 09:29 Aspirin Enteric Coated 81 Mg Tablet.Dr PO 81 mg DAILY JOHNATHAN Administration Carvedilol 6.25 mg 06/20/24 09:00 06/20/24 09:29 Carvedilol 6.25 Mg Tablet PO 6.25 mg BID JOHNATHAN Administration Protocol Furosemide 40 mg 06/20/24 09:00 06/20/24 09:28 Furosemide 40 Mg Tablet PO 40 mg DAILY JOHN[facility]AN Administration Protocol Lisinopril 10 mg 06/20/24 09:00 06/20/24 09:29 Lisinopril 10 Mg Tablet PO 10 mg BID JOHNATHAN Administration Protocol Magnesium Oxide 400 mg 06/20/24 09:00 06/20/24 09:28 Magnesium Oxide 400 Mg Tablet PO 400 mg DAILY JOHNATHAN Administration Multivitamins/Vitamin C 1 tab 06/20/24 09:00 06/20/24 09:28 Multivitamin Tablet PO 1 tab DAILY [facility]AN Administration Potassium Chloride 10 meq 06/20/24 11:00 06/20/24 12:23 Potassium Chloride Er 10 Meq Tablet.Er PO 10 meq DAILY [facility]AN Administration Vitamin D 25 mcg 06/20/24 09:00 06/20/24 09:29 Cholecalciferol (Vitamin D3) 25 Mcg Tablet PO 25 mcg DAILY JOHNATHAN Administration Discontinued Medications Generic Name Dose Route Start Last Admin Trade Name Freq PRN Reason Stop Dose Admin Olanzapine 2.5 mg 06/20/24 01:31 06/20/24 01:56 Olanzapine 2.5 Mg Tablet PO 06/20/24 01:32 2.5 mg ONCE ONE Administration Medical Decision Making Medical Decision Making MDM Narrative: Patient with schizoaffective disorder noncompliant to her olanzapine labs are stable patient is medically cleared to be seen by care team for been delusional Lab Data MDM Lab Attestation statement: I reviewed the patient's lab results. 06/19/24 22:06 06/19/24 22:06 Labs: Lab Results 06/19/24 Range/Units 22:06 WBC 8.3 (4.8-10.8) X10*3/uL RBC 4.22 (4.20-5.50) X10*6/uL Hgb 13.6 (12.0-16.0) g/dl Hct 38.1 (37.0-47.0) % MCV 90.3 (80.0-98.0) fL MCH 32.2 (27.0-33.0) pg MCHC 35.7 H (31.0-35.0) g/dl RDW 12.2 (11.0-16.0) % Plt Count 306 (160-400) X10*3/uL MPV 9.2 L (9.4-12.3) fL Immature Gran % (Auto) 0.4 (0.0-0.4) % Neut % (Auto) 62.7 (45-73) % Lymph % (Auto) 25.4 (20-40) % [place] % (Auto) 9.9 (2-11) % Eos % (Auto) 1.0 (0-4) % Baso % (Auto) 0.6 (0-2) % Lymph # (Auto) 2.1 (1.2-4.9) X10*3/uL [place] # (Auto) 0.8 (0.1-1.2) X10*3/uL Eos # (Auto) 0.1 (0.0-0.4) X10*3/uL Baso # (Auto) 0.1 (0.0-0.2) X10*3/uL Abs Immat Gran (auto) 0.03 (0.00-0.03) X10*3/uL Absolute Neuts (auto) 5.2 (2.0-8.3) x10*3/uL Absolute Nucleated RBC 0.000 (0.0-0.012) X10*3/uL Nucleated RBC % (auto) 0.0 (0.0-0.2) /100WBC Sodium 138 (135-145) mmol/L Potassium 3.8 (3.3-5.1) mmol/L Chloride 104 (96-108) mmol/L Carbon Dioxide 23 (22-29) mmol/L Anion Gap 15 (12-20) BUN 23 H (9-16) mg/dL Creatinine 0.71 (0.5-1.4) mg/dL Estim Creat Clear Calc 51.6 Estimated GFR > 60 Random Glucose 99 (60-115) mg/dL Calcium 9.8 (8.4-10.2) mg/dL Total Bilirubin 0.3 (0.0-1.0) mg/dL AST 24 (5-31) U/L ALT 21 (0-31) U/L Alkaline Phosphatase 90 (39-117) U/L Total Protein 6.9 (6.5-8.0) g/dL Albumin 4.1 (3.5-5.0) g/dL Urine Color Yellow Urine Appearance Clear Urine pH 6.5 (5.0-9.0) Ur Specific [place] 1.020 (1.005-1.025) Urine Protein Negative (Neg-Trace) mg/dL Urine Glucose (UA) Negative (Negative) mg/dL Urine Ketones Trace (Negative) mg/dL Urine Blood Negative (Negative) Urine Nitrite Negative (Negative) Ur Leukocyte Esterase Negative (Negative) Discharge Plan Discharge Clinical Impression: Schizoaffective disorder, bipolar type Patient Disposition: Admitted As Inpatient Interventions: [place]-Suicide Risk Severity Scale Last Done: 06/19/24 21:40 Admission Worksheet (ED) Last Done: 06/20/24 16:09
[2024-06-20] MEDS: OLANZapine 2.5 MG TABLET PO ×2 (01:56→20:34)
--- NOTE | 2024-06-20 01:57 | PC.NURSE ---
Patient was seen by ED provider, patient medically cleared for care team consult. Patient medicated with Zyprexa 2.5 mg PO, currently resting in stretcher bed, plan of care ongoing.
--- NOTE | 2024-06-20 05:10 | PC.NURSE ---
Patient calm, compliant with care, pt denies pain/discomfort.
--- NOTE | 2024-06-20 07:47 | PC.NURSE ---
Pt is calm/cooperative. Has been sitting to eat breakfast. no complaints at this time. Skin pwd. unlabored resp . is aware that she's here b/c she hasn't taken her meds for a week.
[2024-06-20] MEDS: Furosemide 40 MG TABLET PO (09:28)
[2024-06-20] MEDS: Magnesium Oxide 400 MG TABLET PO (09:28)
[2024-06-20] MEDS: amLODIPine Besylate 5 MG TABLET PO (09:28)
[2024-06-20] MEDS: Multivitamin TABLET 1 TAB PO (09:28)
[2024-06-20] MEDS: Cholecalciferol (Vitamin D3) 25 MCG TABLET PO (09:29)
[2024-06-20] MEDS: Aspirin Enteric Coated 81 MG TABLET.DR PO (09:29)
[2024-06-20] MEDS: lisinopriL 10 MG TABLET PO ×2 (09:29→20:34)
[2024-06-20] MEDS: carvediloL 6.25 MG TABLET PO ×2 (09:29→20:34)
--- NOTE | 2024-06-20 10:42 | ECG_ITS ---
Test Reason : CHECK PROLONGED QT Blood Pressure : */* mmHG Vent. Rate : 62 BPM Atrial Rate : 62 BPM P-R Int : 144 ms QRS Dur : 88 ms QT Int : 434 ms P-R-T Axes : 70 52 75 degrees QTcB Int : 440 ms Normal sinus rhythm Possible Left atrial enlargement Minimal voltage criteria for LVH, may be normal variant ( [place] product ) Nonspecific T wave abnormality Abnormal ECG When compared with ECG of 05-Jan-2024 22:03, QT has lengthened Referred By: Navi Louis Electronically Signed By: RADHA SALAZAR MD
--- NOTE | 2024-06-20 11:09 | PC.NURSE ---
continues to rest quietly. No complaints. awaits psych eval.
[2024-06-20] MEDS: Potassium Chloride ER 10 MEQ TABLET.ER PO (12:23)
--- NOTE | 2024-06-20 13:59 | PC.NURSE ---
Pt walked over to POD without difficulty. RN Milagro & Nancie given report.
--- NOTE | 2024-06-20 17:15 | PC.NURSE ---
Patient arrived to the unit on 06/20/24 at 1620 via wheelchair with security present. Pt has a history of schizoaffective disorder, bipolar disorder. Patient lives in [facility] complex, brought by EMS for delusional behavior, increased confusion, and argumentative behavior with police present for a welfare check. The patient stopped taking her medications, suffered increased delusional behavior and confusion, calling the mobility architect manager of her building with delusional statements. The patient's son brought her into the ED for assessment. The patient has a history of inpatient hospitalizations, SI with attempts, confusion and disorganization. The patient reports she stopped taking her Olanzapine @[facility] approximately two weeks ago. The patient cooperated with changeover and admission assessment. The patient has a flat affect, calm and cooperative.
[2024-06-20 19:22] LABS: Alanine Aminotransferase 22 U/L (0-31); Albumin Level 4.1 g/dL (3.5-5.0); Alkaline Phosphatase 92 U/L (39-117); Anion Gap 16 (12-20); Aspartate Amino Transferase 24 U/L (5-31); Bilirubin Total 0.4 mg/dL (0.0-1.0); Blood Urea Nitrogen 22 mg/dL (9-16); Calcium 10.1 mg/dL (8.4-10.2); Carbon Dioxide 25 mmol/L (22-29); Chloride 103 mmol/L (96-108); Creatinine Clr Calc Pharmacy 35.5; Estimated Glomerular Filt Rate 52; Glucose Random 136 mg/dL (60-115); Potassium 3.8 mmol/L (3.3-5.1); Sodium 140 mmol/L (135-145)
[2024-06-21 07:58] VITALS: BP 122/66; PULSE 72; RESP 16; TEMP 36.8; O2SAT 97
[2024-06-21] MEDS: Furosemide 40 MG TABLET PO (08:00)
[2024-06-21] MEDS: lisinopriL 10 MG TABLET PO ×2 (08:00→20:14)
[2024-06-21] MEDS: Cholecalciferol (Vitamin D3) 25 MCG TABLET PO (08:00)
[2024-06-21] MEDS: Multivitamin TABLET 1 TAB PO (08:00)
[2024-06-21] MEDS: Aspirin Enteric Coated 81 MG TABLET.DR PO (08:00)
[2024-06-21] MEDS: carvediloL 6.25 MG TABLET PO ×2 (08:00→20:19)
[2024-06-21] MEDS: Magnesium Oxide 400 MG TABLET PO (08:00)
[2024-06-21] MEDS: Potassium Chloride ER 10 MEQ TABLET.ER PO (08:01)
[2024-06-21] MEDS: amLODIPine Besylate 5 MG TABLET PO (08:03)
[2024-06-21 09:23] LABS: Cholesterol 241 mg/dL (<200); HDL Cholesterol 59 mg/dL (>40); LDL Cholesterol Calculated 150 mg/dL (<100); Triglycerides 163 mg/dL (<150)
[2024-06-21 09:36] LABS: Estimated Average Glucose 114 mg/dL; Hemoglobin A1C 145.5563 umol/L; Hemoglobin A1c % 5.6 % (<6.0); Total Hemoglobin (HGBA1C) 3839.9279 umol/L
[2024-06-21 09:46] LABS: Thyroid Stimulating Hormone 2.12 uIU/mL (0.32-4.0)
[2024-06-21 09:57] LABS: Folate 15.8 ng/mL (> or = 4.0); Vitamin B12 502 pg/mL (200-900)
--- NOTE | 2024-06-21 11:07 | HO.PSYADMNOT ---
HPI Date of Service: 06/21/24 Chief Complaint: parancia Sources of Information: patient interviewed, chart reviewed and crisis/core team assessment reviewed HPI Subjective Notes: Pathak Warning and Conditional Voluntary Narrative: Mrs. Stephenson iss a 78 year-old woman with hx of schizoaffective disorder who was brought via EMS from home after son requested wellness check. Per care team assessment, pt had been calling [facility], cancelling appointments and at times cancelling appointment she did not have. Per crisis assessment, pt's son had reported that housing management had called him to report that she seemed more confused (unclear what they were referring to). In the ED, pertinent labs include cbc mostly unremarkable, without leukocytosis; CMP without electrolyte abnormalities, BUN slightly elevated 23, Cr 0.71 with creatinine clearance 51.6, repeat next day with increase Cr 1.03 but stable BUN, creatinine clearance decreased to 35.5. UA not suggestive of UTI, wnl otherwise. Utox was negative. On the unit, pt presents as calm, somewhat guarded. She reports she does not know why she is here. She reports the ambulance brought her to the hospital but she does not know why. She reports she had stopped taking olanzapine, but wonders how would the hospital knows about this. Pt informed his son had expressed concern about her stopping her medications, which she does from time to time and had asked for wellness check. When asked about what was going on at her apartment complex, she initially presents with long pause, states nothing really. She then reports she was cancelling appointments because she thought people were mad at her and talking about her. She denies concern in terms of her safety or other paranoid delusions. She is ambivalent about needing medications. She denies SI/HI. She agrees to restart olanzapine. She denies any other concerns. When asked about whether she has questions or not, she reports but what question could I have? She denies any physical concerns. Past Psychiatric History: Inpt: at least 5 admission to 01/11/2024; 02/25/2022; 11/21/2021; 09/17/2021; 03/04/2021 [facility] ED 3Xin past 2 months for somatic sx IPLOC at [facility], in 2009. [place] [facility] [place] [facility]. Previous SI attempt in 2010 Therapist Zena Maldonado, Psych provider: Yamileth Dalal NP Past medication trials: olanzapine, haldol (EPS), depakote, risperidone (EPS) Medical Evaluation Reviewed: Yes [facility] Medical History Ischemic cardiomyopathy Essential hypertension Coronary artery disease Schizoaffective disorder, bipolar type Surgical History S/P CABG (coronary artery bypass graft) Family History: Raised by parents, 1 brother, 1 sister. Siblings local. Mother : Alzheimers dementia. Father : Question of psychosis. Brother: Question of psychosis. Sister: Question of dementia. Social History: , lives by self in prison apartment. Has 1 son, has grand children. Trauma History: Unknown. Diagnostics Vital Signs (24Hr): Vital Signs - 24 hr 06/20/24 15:00 06/20/24 20:32 06/20/24 20:34 Temperature 97.6 F 97.4 F Pulse Rate 73 72 72 Respiratory Rate 18 16 Blood Pressure 161/81 H 131/68 131/68 Pulse Oximetry 97 98 Oxygen Delivery Method Room Air Room Air 06/20/24 20:34 06/21/24 07:58 Temperature 98.2 F Pulse Rate 72 Respiratory Rate 16 Blood Pressure 131/68 122/66 Pulse Oximetry 97 Oxygen Delivery Method Room Air BMI result Body Mass Index 21.6 Labs 06/19/24 22:06 06/20/24 18:43 Labs: Laboratory Results - last 48 hr 06/19/24 06/20/24 06/21/24 22:06 18:43 08:04 WBC 8.3 RBC 4.22 Hgb 13.6 Hct 38.1 MCV 90.3 MCH 32.2 MCHC 35.7 H RDW 12.2 Plt Count 306 MPV 9.2 L Immature Gran % (Auto) 0.4 Neut % (Auto) 62.7 Lymph % (Auto) 25.4 [place] % (Auto) 9.9 Eos % (Auto) 1.0 Baso % (Auto) 0.6 Lymph # (Auto) 2.1 [place] # (Auto) 0.8 Eos # (Auto) 0.1 Baso # (Auto) 0.1 Abs Immat Gran (auto) 0.03 Absolute Neuts (auto) 5.2 Absolute Nucleated RBC 0.000 Nucleated RBC % (auto) 0.0 Sodium 138 140 Potassium 3.8 3.8 Chloride 104 103 Carbon Dioxide 23 25 Anion Gap 15 16 BUN 23 H 22 H Creatinine 0.71 1.03 Estim Creat Clear Calc 51.6 35.5 Estimated GFR > 60 52 Random Glucose 99 136 H Estimat Average Glucose 114 Hemoglobin A1c % 5.6 Calcium 9.8 10.1 Total Bilirubin 0.3 0.4 AST 24 24 ALT 21 22 Alkaline Phosphatase 90 92 Total Protein 6.9 7.0 Albumin 4.1 4.1 Triglycerides 163 H Cholesterol 241 H LDL Cholesterol, Calc 150 H HDL Cholesterol 59 Vitamin B12 502 Folate 15.8 TSH 2.12 Urine Color Yellow Urine Appearance Clear Urine pH 6.5 Ur Specific [place] 1.020 Urine Protein Negative Urine Glucose (UA) Negative Urine Ketones Trace Urine Blood Negative Urine Nitrite Negative Ur Leukocyte Esterase Negative Meds/Allergies Meds Home Medications ?Medication ?Instructions ?Recorded ?Confirmed ?Type ezetimibe 10 mg tablet 10 mg PO DAILY 06/20/24 History Allergies Allergies Allergy/AdvReac Type Severity Reaction Status Date / Time nitrofurantoin Allergy Unknown Verified 06/19/24 20:58 [From Macrobid] haloperidol [From Haldol] AdvReac Numbness Verified 06/19/24 20:58 Mental Status Exam Mental Status Exam Narrative: Appearance: wearing hospital gown, somewhat of a blank stare, in NAD Behavior: guarded, ambivalent, superficially cooperative Psychomotor: some retardation Speech: delayed response, minimally spontaneous TP: poverty of thought TC: some suspiciousness, not sure why she would be brought to the hospital nor why would others be concerned about her. Mood: okay Affect: constricted SI: denies HI: denies VH/AH: appears internally preoccupied but denies Delusions: suspiciousness about other talking about her Insight/judgment: impaired x 2 Memory/cog:alert, oriented to place, month, year not so much situation. Assessment & Plan Assessment & Plan (1) Schizoaffective disorder, bipolar type: Status: Acute Code(s): F25.0 - Schizoaffective disorder, bipolar type (2) Dementia: Status: Acute Code(s): F03.90 - Unspecified dementia, unspecified severity, without behavioral disturbance, psychotic disturbance, mood disturbance, and anxiety Plan Mrs. Stephenson is a 78 year-old woman with hx of schizoaffective disorder who was brought via EMS after son requested wellness check. Pt is know through 5 prior admission with similar presentation, increased paranoid ideas in setting of stopping medications. She does have hx of EPS with paliperidone, haldol, risperidone. She does have resting tremors. She has done fairly well with olanzapine. We discussed risks, benefits and alternative treatment options. She agrees to restart and adjust dose of olanzapine. May benefit from ativan for delayed response and blank stare- catatonic like features (can do trial). PLAN 1. Admit to S1, CV, 15 minutes checks for safety 2. increase olanzapine to 10mg po qhs 3. trial of ativan 0.5mg BID- will reassess if sedating or actually helps her speak more fluently. 4. obtain collateral information 5. aftercare planning. Patient educated on: diagnosis and medication risk/benefits Reason for continued inpatient stay Substantial Risk for: inability to function Statement Statement: I have reviewed the history and physical and performed a pertinent examination on my patient. No changes have occurred unless specified. If the History and Physical was not performed prior to admission, the Hospitalist's service will be consulted for completing the admission physical. Time Spent With Patient Time: Total time managing care of this patient today ____ minutes.
[2024-06-21] MEDS: LORazepam 0.5 MG TABLET PO (14:32)
[2024-06-21 20:14] VITALS: BP 119/60
[2024-06-21] MEDS: OLANZapine 10 MG TABLET PO (20:14)
[2024-06-21 20:19] VITALS: BP 119/60; PULSE 72
[2024-06-21 21:43] VITALS: BP 119/60; PULSE 72; RESP 18; TEMP 36; O2SAT 98
[2024-06-22 08:50] VITALS: BP 123/69; PULSE 73; RESP 18; TEMP 36.8; O2SAT 97
[2024-06-22] MEDS: Cholecalciferol (Vitamin D3) 25 MCG TABLET PO (08:51)
[2024-06-22] MEDS: Magnesium Oxide 400 MG TABLET PO (08:52)
[2024-06-22] MEDS: carvediloL 6.25 MG TABLET PO ×2 (08:52→20:37)
[2024-06-22] MEDS: lisinopriL 10 MG TABLET PO ×2 (08:52→20:36)
[2024-06-22] MEDS: Potassium Chloride ER 10 MEQ TABLET.ER PO (08:52)
[2024-06-22] MEDS: Furosemide 40 MG TABLET PO (08:53)
[2024-06-22] MEDS: amLODIPine Besylate 5 MG TABLET PO (08:53)
[2024-06-22] MEDS: Multivitamin TABLET 1 TAB PO (08:54)
[2024-06-22] MEDS: Aspirin Enteric Coated 81 MG TABLET.DR PO (08:54)
[2024-06-22 09:11] VITALS: BMI 21.8
--- NOTE | 2024-06-22 17:58 | P.PNPSI_ITS ---
Subjective Subjective Date of Service: 06/22/24 Reason For Visit: parancia Subjective Notes: Conditional Voluntary Interim History: Pt slept through the night. She presents as ambivalent, repeating same questions. some visible tremors with olanzapine and without it. Dose of olanzapine somewhat limited by resting and action tremors. We discussed trial of rexulti as it may cause less movement disorder issues. Medication Compliance: Yes Review of Systems Review of Systems Yes all other systems are reviewed and are negative Mental Status Exam Mental Status Exam Narrative: Appearance: wearing hospital gown, somewhat of a blank stare, in NAD Behavior: guarded, ambivalent, superficially cooperative Psychomotor: some retardation Speech: delayed response, minimally spontaneous TP: poverty of thought TC: some suspiciousness, not sure why she would be brought to the hospital nor why would others be concerned about her. Mood: okay Affect: constricted SI: denies HI: denies VH/AH: appears internally preoccupied but denies Delusions: suspiciousness about other talking about her Insight/judgment: impaired x 2 Memory/cog:alert, oriented to place, month, year not so much situation. Diagnostics Vital Signs (24Hr): Vital Signs - 24 hr 06/21/24 20:14 06/21/24 20:19 06/21/24 21:43 Temperature 96.8 F Pulse Rate 72 72 Respiratory Rate 18 Blood Pressure 119/60 119/60 119/60 Pulse Oximetry 98 Oxygen Delivery Method Room Air 06/22/24 08:50 Temperature 98.2 F Pulse Rate 73 Respiratory Rate 18 Blood Pressure 123/69 Pulse Oximetry 97 Oxygen Delivery Method Room Air BMI result Body Mass Index 21.8 Labs 06/19/24 22:06 06/20/24 18:43 Labs: Laboratory Results - last 48 hr 06/20/24 06/21/24 18:43 08:04 Sodium 140 Potassium 3.8 Chloride 103 Carbon Dioxide 25 Anion Gap 16 BUN 22 H Creatinine 1.03 Estim Creat Clear Calc 35.5 Estimated GFR 52 Random Glucose 136 H Estimat Average Glucose 114 Hemoglobin A1c % 5.6 Calcium 10.1 Total Bilirubin 0.4 AST 24 ALT 22 Alkaline Phosphatase 92 Total Protein 7.0 Albumin 4.1 Triglycerides 163 H Cholesterol 241 H LDL Cholesterol, Calc 150 H HDL Cholesterol 59 Vitamin B12 502 Folate 15.8 TSH 2.12 Medications Medications Current Medications Acetaminophen (Acetaminophen 325 Mg Tablet) 650 mg PO Q6H PRN PRN Reason: Headache/Pain, Scale 1-10 Al Hydroxide/Mg Hydroxide (Magnesium Hydrox/Alum Hydrox 30 Ml Oral.Susp) 30 ml PO Q6H PRN PRN Reason: Heartburn/Nausea Amlodipine Besylate (Amlodipine Besylate 5 Mg Tablet) 5 mg PO DAILY [facility]; Protocol Last Admin: 06/22/24 08:53 Dose: 5 mg Aspirin (Aspirin Enteric Coated 81 Mg Tablet.Dr) 81 mg PO DAILY [facility] Last Admin: 06/22/24 08:54 Dose: 81 mg Brexpiprazole (Brexpiprazole 1 Mg Tablet) 1 mg PO DAILY [facility] Carvedilol (Carvedilol 6.25 Mg Tablet) 6.25 mg PO BID [facility]; Protocol Last Admin: 06/22/24 08:52 Dose: 6.25 mg Furosemide (Furosemide 40 Mg Tablet) 40 mg PO DAILY [facility]; Protocol Last Admin: 06/22/24 08:53 Dose: 40 mg Lisinopril (Lisinopril 10 Mg Tablet) 10 mg PO BID [facility]; Protocol Last Admin: 06/22/24 08:52 Dose: 10 mg Lorazepam (Lorazepam 0.5 Mg Tablet) 0.5 mg PO TID [facility] Magnesium Hydroxide (Milk Of Magnesia 30 Ml Oral.Susp) 30 ml PO DAILY PRN PRN Reason: Constipation Magnesium Oxide (Magnesium Oxide 400 Mg Tablet) 400 mg PO DAILY [facility] Last Admin: 06/22/24 08:52 Dose: 400 mg Multivitamins/Vitamin C (Multivitamin Tablet) 1 tab PO DAILY [facility] Last Admin: 06/22/24 08:54 Dose: 1 tab Potassium Chloride (Potassium Chloride Er 10 Meq Tablet.Er) 10 meq PO DAILY [facility] Last Admin: 06/22/24 08:52 Dose: 10 meq Trazodone HCl (Trazodone Hcl 50 Mg Tablet) 50 mg PO BEDTIME [id number] PRN PRN Reason: Insomnia Vitamin D (Cholecalciferol (Vitamin D3) 25 Mcg Tablet) 25 mcg PO DAILY [facility] Last Admin: 06/22/24 08:51 Dose: 25 mcg Allergies Allergies Allergy/AdvReac Type Severity Reaction Status Date / Time nitrofurantoin Allergy Unknown Verified 06/19/24 20:58 [From Macrobid] haloperidol [From Haldol] AdvReac Numbness Verified 06/19/24 20:58 Assessment & Plan Assessment & Plan (1) Schizoaffective disorder, bipolar type: Status: Acute Code(s): F25.0 - Schizoaffective disorder, bipolar type (2) Dementia: Status: Acute Code(s): F03.90 - Unspecified dementia, unspecified severity, without behavioral disturbance, psychotic disturbance, mood disturbance, and anxiety Plan Mrs. Stephenson is a 78 year-old woman with hx of schizoaffective disorder who was brought via EMS after son requested wellness check. Pt is know through 5 prior admission with similar presentation, increased paranoid ideas in setting of stopping medications. She does have hx of EPS with paliperidone, haldol, risperidone. She does have resting tremors. She has done fairly well with olanzapine. We discussed risks, benefits and alternative treatment options. She agrees to restart and adjust dose of olanzapine. May benefit from ativan for delayed response and blank stare- catatonic like features (can do trial). PLAN 06/22 had trials of ativan which seemed to help somewhat with ambivalance and blank stare. discussed switching olanzapine to rexulti. Reason for continued inpatient stay Substantial Risk for: inability to function Time Spent With Patient Time: Total time managing care of this patient today ____ minutes.
[2024-06-22] MEDS: LORazepam 0.5 MG TABLET PO ×2 (18:18→21:25)
[2024-06-22] MEDS: Brexpiprazole 1 MG TABLET PO (18:23)
[2024-06-22 20:00] VITALS: BP 127/70; PULSE 75; RESP 18; TEMP 36.3; O2SAT 97
[2024-06-22 20:36] VITALS: BP 120/70
[2024-06-22 20:37] VITALS: BP 120/70; PULSE 75
[2024-06-23 10:21] VITALS: BP 111/68; PULSE 74; RESP 16; TEMP 36.6; O2SAT 97
[2024-06-23] MEDS: carvediloL 6.25 MG TABLET PO ×2 (10:23→20:07)
[2024-06-23] MEDS: lisinopriL 10 MG TABLET PO ×2 (10:23→20:08)
[2024-06-23] MEDS: Multivitamin TABLET 1 TAB PO (10:23)
[2024-06-23] MEDS: Aspirin Enteric Coated 81 MG TABLET.DR PO (10:24)
[2024-06-23] MEDS: Magnesium Oxide 400 MG TABLET PO (10:24)
[2024-06-23] MEDS: Potassium Chloride ER 10 MEQ TABLET.ER PO (10:24)
[2024-06-23] MEDS: LORazepam 0.5 MG TABLET PO ×2 (10:24→20:07)
[2024-06-23] MEDS: amLODIPine Besylate 5 MG TABLET PO (10:24)
[2024-06-23] MEDS: Cholecalciferol (Vitamin D3) 25 MCG TABLET PO (10:24)
[2024-06-23] MEDS: Furosemide 40 MG TABLET PO (10:24)
[2024-06-23] MEDS: Brexpiprazole 1 MG TABLET PO (10:24)
--- NOTE | 2024-06-23 17:23 | P.PNPSI_ITS ---
Subjective Subjective Date of Service: 06/23/24 Reason For Visit: parancia Subjective Notes: Conditional Voluntary Interim History: Pt slept through the night. She presents as slightly less ambivalent and with a mildly brighter affect. She denies SI/HI. Poverty of thought and lack of insight into concerns that others have in terms of her ability to care for herself. Medication Compliance: Yes Review of Systems Review of Systems Yes all other systems are reviewed and are negative Mental Status Exam Mental Status Exam Narrative: Appearance: wearing hospital gown, somewhat of a blank stare, in NAD Behavior: guarded, ambivalent, superficially cooperative Psychomotor: some retardation Speech: delayed response, minimally spontaneous TP: poverty of thought TC: some suspiciousness, not sure why she would be brought to the hospital nor why would others be concerned about her. Mood: okay Affect: constricted SI: denies HI: denies VH/AH: appears internally preoccupied but denies Delusions: suspiciousness about other talking about her Insight/judgment: impaired x 2 Memory/cog:alert, oriented to place, month, year not so much situation. Diagnostics Vital Signs (24Hr): Vital Signs - 24 hr 06/22/24 20:00 06/22/24 20:36 06/22/24 20:37 Temperature 97.3 F Pulse Rate 75 75 Respiratory Rate 18 Blood Pressure 127/70 120/70 120/70 Pulse Oximetry 97 Oxygen Delivery Method Room Air 06/23/24 10:21 Temperature 97.9 F Pulse Rate 74 Respiratory Rate 16 Blood Pressure 111/68 Pulse Oximetry 97 Oxygen Delivery Method Room Air BMI result Body Mass Index 21.8 Labs 06/19/24 22:06 06/20/24 18:43 Medications Medications Current Medications Acetaminophen (Acetaminophen 325 Mg Tablet) 650 mg PO Q6H PRN PRN Reason: Headache/Pain, Scale 1-10 Al Hydroxide/Mg Hydroxide (Magnesium Hydrox/Alum Hydrox 30 Ml Oral.Susp) 30 ml PO Q6H PRN PRN Reason: Heartburn/Nausea Amlodipine Besylate (Amlodipine Besylate 5 Mg Tablet) 5 mg PO DAILY [facility]; Protocol Last Admin: 06/23/24 10:24 Dose: 5 mg Aspirin (Aspirin Enteric Coated 81 Mg Tablet.) 81 mg PO DAILY [facility] Last Admin: 06/23/24 10:24 Dose: 81 mg Brexpiprazole (Brexpiprazole 1 Mg Tablet) 1 mg PO DAILY [facility] Last Admin: 06/23/24 10:24 Dose: 1 mg Carvedilol (Carvedilol 6.25 Mg Tablet) 6.25 mg PO BID [facility]; Protocol Last Admin: 06/23/24 10:23 Dose: 6.25 mg Furosemide (Furosemide 40 Mg Tablet) 40 mg PO DAILY [facility]; Protocol Last Admin: 06/23/24 10:24 Dose: 40 mg Lisinopril (Lisinopril 10 Mg Tablet) 10 mg PO BID [facility]; Protocol Last Admin: 06/23/24 10:23 Dose: 10 mg Lorazepam (Lorazepam 0.5 Mg Tablet) 0.5 mg PO TID [facility] Last Admin: 06/23/24 15:06 Dose: Not Given Magnesium Hydroxide (Milk Of Magnesia 30 Ml Oral.Susp) 30 ml PO DAILY PRN PRN Reason: Constipation Magnesium Oxide (Magnesium Oxide 400 Mg Tablet) 400 mg PO DAILY [facility] Last Admin: 06/23/24 10:24 Dose: 400 mg Multivitamins/Vitamin C (Multivitamin Tablet) 1 tab PO DAILY [facility] Last Admin: 06/23/24 10:23 Dose: 1 tab Potassium Chloride (Potassium Chloride Er 10 Meq Tablet.Er) 10 meq PO DAILY [facility] Last Admin: 06/23/24 10:24 Dose: 10 meq Trazodone HCl (Trazodone Hcl 50 Mg Tablet) 50 mg PO BEDTIME [id number] PRN PRN Reason: Insomnia Vitamin D (Cholecalciferol (Vitamin D3) 25 Mcg Tablet) 25 mcg PO DAILY [facility] Last Admin: 06/23/24 10:24 Dose: 25 mcg Allergies Allergies Allergy/AdvReac Type Severity Reaction Status Date / Time nitrofurantoin Allergy Unknown Verified 06/19/24 20:58 [From Macrobid] haloperidol [From Haldol] AdvReac Numbness Verified 06/19/24 20:58 Assessment & Plan Assessment & Plan (1) Schizoaffective disorder, bipolar type: Status: Acute Code(s): F25.0 - Schizoaffective disorder, bipolar type (2) Dementia: Status: Acute Code(s): F03.90 - Unspecified dementia, unspecified severity, without behavioral disturbance, psychotic disturbance, mood disturbance, and anxiety Plan Mrs. Stephenson is a 78 year-old woman with hx of schizoaffective disorder who was brought via EMS after son requested wellness check. Pt is know through 5 prior admission with similar presentation, increased paranoid ideas in setting of stopping medications. She does have hx of EPS with paliperidone, haldol, risperidone. She does have resting tremors. She has done fairly well with olanzapine. We discussed risks, benefits and alternative treatment options. She agrees to restart and adjust dose of olanzapine. May benefit from ativan for delayed response and blank stare- catatonic like features (can do trial). PLAN 06/23 continue tx. rexulti 1mg po daily. continue ativan 0.5mg po TID, monitor over sedation versus resolution of some catatonic like features such as blank stare, severe ambivalence in making even simplest decision. Reason for continued inpatient stay Substantial Risk for: inability to function Time Spent With Patient Time: Total time managing care of this patient today ____ minutes.
[2024-06-23 20:00] VITALS: BP 117/61; PULSE 72; RESP 18; TEMP 36.6; O2SAT 95
[2024-06-24] VITALS (7 sets, daily range): BP systolic 128–129; BP diastolic 58–59; PULSE 69–73; RESP 16–18; TEMP 36.3–36.4; O2SAT 95–96
[2024-06-24] MEDS: Brexpiprazole 1 MG TABLET PO (09:20)
[2024-06-24] MEDS: Aspirin Enteric Coated 81 MG TABLET.DR PO (09:20)
[2024-06-24] MEDS: LORazepam 0.5 MG TABLET PO ×2 (09:20→15:25)
[2024-06-24] MEDS: Multivitamin TABLET 1 TAB PO (09:21)
[2024-06-24] MEDS: Magnesium Oxide 400 MG TABLET PO (09:21)
[2024-06-24] MEDS: Cholecalciferol (Vitamin D3) 25 MCG TABLET PO (09:22)
[2024-06-24] MEDS: Potassium Chloride ER 10 MEQ TABLET.ER PO (09:22)
[2024-06-24] MEDS: Furosemide 40 MG TABLET PO (09:49)
[2024-06-24] MEDS: lisinopriL 10 MG TABLET PO ×2 (09:49→19:51)
[2024-06-24] MEDS: carvediloL 6.25 MG TABLET PO ×2 (09:50→19:52)
[2024-06-24] MEDS: amLODIPine Besylate 5 MG TABLET PO (09:51)
--- NOTE | 2024-06-24 18:28 | HO.PSYCHPN ---
Subjective Subjective Date of Service: 06/24/24 Reason For Visit: parancia Interim History: Pt slept through the night. She presents as slightly less ambivalent and with a mildly brighter affect. She denies SI/HI. Poverty of thought and lack of insight into concerns that others have in terms of her ability to care for herself. Review of Systems Review of Systems Yes all other systems are reviewed and are negative Mental Status Exam Mental Status Exam Narrative: Appearance: wearing hospital gown, somewhat of a blank stare, in NAD Behavior: guarded, ambivalent, superficially cooperative Psychomotor: some retardation Speech: delayed response, minimally spontaneous TP: poverty of thought TC: some suspiciousness, not sure why she would be brought to the hospital nor why would others be concerned about her. Mood: okay Affect: constricted SI: denies HI: denies VH/AH: appears internally preoccupied but denies Delusions: suspiciousness about other talking about her Insight/judgment: impaired x 2 Memory/cog:alert, oriented to place, month, year not so much situation. Diagnostics Vital Signs (24Hr): Vital Signs - 24 hr 06/23/24 20:00 06/24/24 08:00 06/24/24 09:49 Temperature 97.9 F 97.6 F Pulse Rate 72 71 Respiratory Rate 18 18 Blood Pressure 117/61 129/59 L 129/59 L Pulse Oximetry 95 95 Oxygen Delivery Method Room Air Room Air 06/24/24 09:49 06/24/24 09:50 06/24/24 09:51 Temperature Pulse Rate 73 Respiratory Rate Blood Pressure 129/59 L 129/59 L 129/59 L Pulse Oximetry Oxygen Delivery Method BMI result Body Mass Index 21.8 Labs 06/19/24 22:06 06/20/24 18:43 Medications Medications Current Medications Acetaminophen (Acetaminophen 325 Mg Tablet) 650 mg PO Q6H PRN PRN Reason: Headache/Pain, Scale 1-10 Al Hydroxide/Mg Hydroxide (Magnesium Hydrox/Alum Hydrox 30 Ml Oral.Susp) 30 ml PO Q6H PRN PRN Reason: Heartburn/Nausea Amlodipine Besylate (Amlodipine Besylate 5 Mg Tablet) 5 mg PO DAILY [facility]; Protocol Last Admin: 06/24/24 09:51 Dose: 5 mg Aspirin (Aspirin Enteric Coated 81 Mg Tablet.) 81 mg PO DAILY [facility] Last Admin: 06/24/24 09:20 Dose: 81 mg Brexpiprazole (Brexpiprazole 1 Mg Tablet) 1 mg PO DAILY [facility] Last Admin: 06/24/24 09:20 Dose: 1 mg Carvedilol (Carvedilol 6.25 Mg Tablet) 6.25 mg PO BID [facility]; Protocol Last Admin: 06/24/24 09:50 Dose: 6.25 mg Furosemide (Furosemide 40 Mg Tablet) 40 mg PO DAILY [facility]; Protocol Last Admin: 06/24/24 09:49 Dose: 40 mg Lisinopril (Lisinopril 10 Mg Tablet) 10 mg PO BID [facility]; Protocol Last Admin: 06/24/24 09:49 Dose: 10 mg Magnesium Hydroxide (Milk Of Magnesia 30 Ml Oral.Susp) 30 ml PO DAILY PRN PRN Reason: Constipation Magnesium Oxide (Magnesium Oxide 400 Mg Tablet) 400 mg PO DAILY [facility] Last Admin: 06/24/24 09:21 Dose: 400 mg Multivitamins/Vitamin C (Multivitamin Tablet) 1 tab PO DAILY [facility] Last Admin: 06/24/24 09:21 Dose: 1 tab Potassium Chloride (Potassium Chloride Er 10 Meq Tablet.Er) 10 meq PO DAILY [facility] Last Admin: 06/24/24 09:22 Dose: 10 meq Trazodone HCl (Trazodone Hcl 50 Mg Tablet) 50 mg PO BEDTIME [id number] PRN PRN Reason: Insomnia Vitamin D (Cholecalciferol (Vitamin D3) 25 Mcg Tablet) 25 mcg PO DAILY [facility] Last Admin: 06/24/24 09:22 Dose: 25 mcg Allergies Allergies Allergy/AdvReac Type Severity Reaction Status Date / Time nitrofurantoin Allergy Unknown Verified 06/19/24 20:58 [From Macrobid] haloperidol [From Haldol] AdvReac Numbness Verified 06/19/24 20:58 Assessment & Plan Assessment & Plan (1) Schizoaffective disorder, bipolar type: Status: Acute Code(s): F25.0 - Schizoaffective disorder, bipolar type (2) Dementia: Status: Acute Code(s): F03.90 - Unspecified dementia, unspecified severity, without behavioral disturbance, psychotic disturbance, mood disturbance, and anxiety Plan Mrs. Stephenson is a 78 year-old woman with hx of schizoaffective disorder who was brought via EMS after son requested wellness check. Pt is know through 5 prior admission with similar presentation, increased paranoid ideas in setting of stopping medications. She does have hx of EPS with paliperidone, haldol, risperidone. She does have resting tremors. She has done fairly well with olanzapine. We discussed risks, benefits and alternative treatment options. She agrees to restart and adjust dose of olanzapine. May benefit from ativan for delayed response and blank stare- catatonic like features (can do trial). PLAN 06/24 continue rexulti 1mg po daily. will dc ativan, as pt reports more sedation. Reason for continued inpatient stay Substantial Risk for: inability to function Time Spent With Patient Time: Total time managing care of this patient today ____ minutes.
[2024-06-24] MEDS: traZODone HCL 50 MG TABLET PO (19:53)
[2024-06-25 08:42] VITALS: BP 118/56; PULSE 70; RESP 16; TEMP 36.4; O2SAT 97
[2024-06-25] MEDS: carvediloL 6.25 MG TABLET PO ×2 (08:43→20:42)
[2024-06-25] MEDS: amLODIPine Besylate 5 MG TABLET PO (08:43)
[2024-06-25] MEDS: Brexpiprazole 1 MG TABLET PO (08:43)
[2024-06-25] MEDS: Multivitamin TABLET 1 TAB PO (08:43)
[2024-06-25] MEDS: Cholecalciferol (Vitamin D3) 25 MCG TABLET PO (08:43)
[2024-06-25] MEDS: Potassium Chloride ER 10 MEQ TABLET.ER PO (08:43)
[2024-06-25] MEDS: Magnesium Oxide 400 MG TABLET PO (08:43)
[2024-06-25] MEDS: Aspirin Enteric Coated 81 MG TABLET.DR PO (08:43)
[2024-06-25] MEDS: Furosemide 40 MG TABLET PO (08:43)
[2024-06-25] MEDS: lisinopriL 10 MG TABLET PO ×2 (08:43→20:43)
[2024-06-25 20:00] VITALS: BP 140/66; PULSE 70; RESP 16; TEMP 36.3; O2SAT 97
--- NOTE | 2024-06-25 22:26 | P.PNPSI_ITS ---
Subjective Subjective Date of Service: 06/25/24 Reason For Visit: parancia Subjective Notes: Conditional Voluntary Interim History: Pt slept through the night. She presents as slightly less ambivalent and with a mildly brighter affect. She denies SI/HI. Poverty of thought and lack of insight into concerns that others have in terms of her ability to care for herself. taking meds as prescribed. Medication Compliance: Yes Review of Systems Review of Systems Yes all other systems are reviewed and are negative Mental Status Exam Mental Status Exam Narrative: Appearance: wearing hospital gown, somewhat of a blank stare, in NAD Behavior: guarded, ambivalent, superficially cooperative Psychomotor: some retardation Speech: delayed response, minimally spontaneous TP: poverty of thought TC: some suspiciousness, not sure why she would be brought to the hospital nor why would others be concerned about her. Mood: okay Affect: constricted SI: denies HI: denies VH/AH: appears internally preoccupied but denies Delusions: suspiciousness about other talking about her Insight/judgment: impaired x 2 Memory/cog:alert, oriented to place, month, year not so much situation. Diagnostics Vital Signs (24Hr): Vital Signs - 24 hr 06/25/24 08:42 06/25/24 20:00 Temperature 97.5 F 97.3 F Pulse Rate 70 70 Respiratory Rate 16 16 Blood Pressure 118/56 L 140/66 H Pulse Oximetry 97 97 Oxygen Delivery Method Room Air Room Air BMI result Body Mass Index 21.8 Labs 06/19/24 22:06 06/20/24 18:43 Medications Medications Current Medications Acetaminophen (Acetaminophen 325 Mg Tablet) 650 mg PO Q6H PRN PRN Reason: Headache/Pain, Scale 1-10 Al Hydroxide/Mg Hydroxide (Magnesium Hydrox/Alum Hydrox 30 Ml Oral.Susp) 30 ml PO Q6H PRN PRN Reason: Heartburn/Nausea Amlodipine Besylate (Amlodipine Besylate 5 Mg Tablet) 5 mg PO DAILY [facility]; Protocol Last Admin: 06/25/24 08:43 Dose: 5 mg Aspirin (Aspirin Enteric Coated 81 Mg Tablet.) 81 mg PO DAILY [facility] Last Admin: 06/25/24 08:43 Dose: 81 mg Brexpiprazole (Brexpiprazole 1 Mg Tablet) 1 mg PO DAILY [facility] Last Admin: 06/25/24 08:43 Dose: 1 mg Carvedilol (Carvedilol 6.25 Mg Tablet) 6.25 mg PO BID [facility]; Protocol Last Admin: 06/25/24 20:42 Dose: 6.25 mg Furosemide (Furosemide 40 Mg Tablet) 40 mg PO DAILY [facility]; Protocol Last Admin: 06/25/24 08:43 Dose: 40 mg Lisinopril (Lisinopril 10 Mg Tablet) 10 mg PO BID [facility]; Protocol Last Admin: 06/25/24 20:43 Dose: 10 mg Magnesium Hydroxide (Milk Of Magnesia 30 Ml Oral.Susp) 30 ml PO DAILY PRN PRN Reason: Constipation Magnesium Oxide (Magnesium Oxide 400 Mg Tablet) 400 mg PO DAILY [facility] Last Admin: 06/25/24 08:43 Dose: 400 mg Multivitamins/Vitamin C (Multivitamin Tablet) 1 tab PO DAILY [facility] Last Admin: 06/25/24 08:43 Dose: 1 tab Potassium Chloride (Potassium Chloride Er 10 Meq Tablet.Er) 10 meq PO DAILY [facility] Last Admin: 06/25/24 08:43 Dose: 10 meq Trazodone HCl (Trazodone Hcl 50 Mg Tablet) 50 mg PO BEDTIME [id number] PRN PRN Reason: Insomnia Last Admin: 06/24/24 19:53 Dose: 50 mg Vitamin D (Cholecalciferol (Vitamin D3) 25 Mcg Tablet) 25 mcg PO DAILY [facility] Last Admin: 06/25/24 08:43 Dose: 25 mcg Allergies Allergies Allergy/AdvReac Type Severity Reaction Status Date / Time nitrofurantoin Allergy Unknown Verified 06/19/24 20:58 [From Macrobid] haloperidol [From Haldol] AdvReac Numbness Verified 06/19/24 20:58 Assessment & Plan Assessment & Plan (1) Schizoaffective disorder, bipolar type: Status: Acute Code(s): F25.0 - Schizoaffective disorder, bipolar type (2) Dementia: Status: Acute Code(s): F03.90 - Unspecified dementia, unspecified severity, without behavioral disturbance, psychotic disturbance, mood disturbance, and anxiety Plan Mrs. Stephenson is a 78 year-old woman with hx of schizoaffective disorder who was brought via EMS after son requested wellness check. Pt is know through 5 prior admission with similar presentation, increased paranoid ideas in setting of stopping medications. She does have hx of EPS with paliperidone, haldol, risperidone. She does have resting tremors. She has done fairly well with olanzapine. We discussed risks, benefits and alternative treatment options. She agrees to restart and adjust dose of olanzapine. May benefit from ativan for delayed response and blank stare- catatonic like features (can do trial). PLAN 06/25 continue tx. Reason for continued inpatient stay Substantial Risk for: inability to function Time Spent With Patient Time: Total time managing care of this patient today ____ minutes.
[2024-06-26 08:00] VITALS: BP 145/67; PULSE 71; RESP 16; TEMP 36.6; O2SAT 96
[2024-06-26] MEDS: carvediloL 6.25 MG TABLET PO ×2 (08:39→21:04)
[2024-06-26] MEDS: Furosemide 40 MG TABLET PO (08:39)
[2024-06-26] MEDS: Multivitamin TABLET 1 TAB PO (08:40)
[2024-06-26] MEDS: Potassium Chloride ER 10 MEQ TABLET.ER PO (08:40)
[2024-06-26] MEDS: amLODIPine Besylate 5 MG TABLET PO (08:40)
[2024-06-26] MEDS: Cholecalciferol (Vitamin D3) 25 MCG TABLET PO (08:40)
[2024-06-26] MEDS: Magnesium Oxide 400 MG TABLET PO (08:40)
[2024-06-26] MEDS: lisinopriL 10 MG TABLET PO ×2 (08:40→21:04)
[2024-06-26] MEDS: Brexpiprazole 1 MG TABLET PO (08:40)
[2024-06-26] MEDS: Aspirin Enteric Coated 81 MG TABLET.DR PO (08:40)
[2024-06-26 20:00] VITALS: BP 119/64; PULSE 68; RESP 16; TEMP 36.2; O2SAT 98
--- NOTE | 2024-06-26 20:16 | HO.PSYCHPN ---
Subjective Subjective Date of Service: 06/26/24 Reason For Visit: parancia Subjective Notes: Conditional Voluntary Interim History: Pt slept through the night. She is mostly in her room, no social with peers. no behavioral concerns. asks same question about medication every day. She denies SI/HI. Poverty of thought and lack of insight into concerns that others have in terms of her ability to care for herself. taking meds as prescribed. Review of Systems Review of Systems Yes all other systems are reviewed and are negative Mental Status Exam Mental Status Exam Narrative: Appearance: wearing hospital gown, somewhat of a blank stare, in NAD Behavior: guarded, ambivalent, superficially cooperative Psychomotor: some retardation Speech: delayed response, minimally spontaneous TP: poverty of thought TC: some suspiciousness, not sure why she would be brought to the hospital nor why would others be concerned about her. Mood: okay Affect: constricted SI: denies HI: denies VH/AH: appears internally preoccupied but denies Delusions: suspiciousness about other talking about her Insight/judgment: impaired x 2 Memory/cog:alert, oriented to place, month, year not so much situation. Diagnostics Vital Signs (24Hr): Vital Signs - 24 hr 06/26/24 08:00 Temperature 97.9 F Pulse Rate 71 Respiratory Rate 16 Blood Pressure 145/67 H Pulse Oximetry 96 Oxygen Delivery Method Room Air BMI result Body Mass Index 21.8 Labs 06/19/24 22:06 06/20/24 18:43 Medications Medications Current Medications Acetaminophen (Acetaminophen 325 Mg Tablet) 650 mg PO Q6H PRN PRN Reason: Headache/Pain, Scale 1-10 Al Hydroxide/Mg Hydroxide (Magnesium Hydrox/Alum Hydrox 30 Ml Oral.Susp) 30 ml PO Q6H PRN PRN Reason: Heartburn/Nausea Amlodipine Besylate (Amlodipine Besylate 5 Mg Tablet) 5 mg PO DAILY [facility]; Protocol Last Admin: 06/26/24 08:40 Dose: 5 mg Aspirin (Aspirin Enteric Coated 81 Mg Tablet.) 81 mg PO DAILY [facility] Last Admin: 06/26/24 08:40 Dose: 81 mg Brexpiprazole (Brexpiprazole 1 Mg Tablet) 1 mg PO DAILY [facility] Last Admin: 06/26/24 08:40 Dose: 1 mg Carvedilol (Carvedilol 6.25 Mg Tablet) 6.25 mg PO BID [facility]; Protocol Last Admin: 06/26/24 08:39 Dose: 6.25 mg Furosemide (Furosemide 40 Mg Tablet) 40 mg PO DAILY [facility]; Protocol Last Admin: 06/26/24 08:39 Dose: 40 mg Lisinopril (Lisinopril 10 Mg Tablet) 10 mg PO BID [facility]; Protocol Last Admin: 06/26/24 08:40 Dose: 10 mg Magnesium Hydroxide (Milk Of Magnesia 30 Ml Oral.Susp) 30 ml PO DAILY PRN PRN Reason: Constipation Magnesium Oxide (Magnesium Oxide 400 Mg Tablet) 400 mg PO DAILY [facility] Last Admin: 06/26/24 08:40 Dose: 400 mg Multivitamins/Vitamin C (Multivitamin Tablet) 1 tab PO DAILY [facility] Last Admin: 06/26/24 08:40 Dose: 1 tab Potassium Chloride (Potassium Chloride Er 10 Meq Tablet.Er) 10 meq PO DAILY [facility] Last Admin: 06/26/24 08:40 Dose: 10 meq Trazodone HCl (Trazodone Hcl 50 Mg Tablet) 50 mg PO BEDTIME MRX1 PRN PRN Reason: Insomnia Last Admin: 06/24/24 19:53 Dose: 50 mg Vitamin D (Cholecalciferol (Vitamin D3) 25 Mcg Tablet) 25 mcg PO DAILY [facility] Last Admin: 06/26/24 08:40 Dose: 25 mcg Allergies Allergies Allergy/AdvReac Type Severity Reaction Status Date / Time nitrofurantoin Allergy Unknown Verified 06/19/24 20:58 [From Macrobid] haloperidol [From Haldol] AdvReac Numbness Verified 06/19/24 20:58 Assessment & Plan Assessment & Plan (1) Schizoaffective disorder, bipolar type: Status: Acute Code(s): F25.0 - Schizoaffective disorder, bipolar type (2) Dementia: Status: Acute Code(s): F03.90 - Unspecified dementia, unspecified severity, without behavioral disturbance, psychotic disturbance, mood disturbance, and anxiety Plan Mrs. Stephenson is a 78 year-old woman with hx of schizoaffective disorder who was brought via EMS after son requested wellness check. Pt is know through 5 prior admission with similar presentation, increased paranoid ideas in setting of stopping medications. She does have hx of EPS with paliperidone, haldol, risperidone. She does have resting tremors. She has done fairly well with olanzapine. We discussed risks, benefits and alternative treatment options. She agrees to restart and adjust dose of olanzapine. May benefit from ativan for delayed response and blank stare- catatonic like features (can do trial). PLAN 06/24 continue rexulti 1mg po daily. will dc ativan, as pt reports more sedation. 06/25 continue tx 06/26 continue tx. Reason for continued inpatient stay Substantial Risk for: inability to function Time Spent With Patient Time: Total time managing care of this patient today ____ minutes.
[2024-06-26 21:04] VITALS: BP 119/64; PULSE 68
[2024-06-27 08:00] VITALS: BP 119/72; PULSE 64; RESP 14; TEMP 36.2; O2SAT 99
[2024-06-27] MEDS: lisinopriL 10 MG TABLET PO ×2 (08:57→20:27)
[2024-06-27] MEDS: Aspirin Enteric Coated 81 MG TABLET.DR PO (08:57)
[2024-06-27] MEDS: Cholecalciferol (Vitamin D3) 25 MCG TABLET PO (08:57)
[2024-06-27] MEDS: carvediloL 6.25 MG TABLET PO ×2 (08:57→20:28)
[2024-06-27] MEDS: Potassium Chloride ER 10 MEQ TABLET.ER PO (08:57)
[2024-06-27] MEDS: amLODIPine Besylate 5 MG TABLET PO (08:57)
[2024-06-27] MEDS: Magnesium Oxide 400 MG TABLET PO (08:58)
[2024-06-27] MEDS: Furosemide 40 MG TABLET PO (08:58)
[2024-06-27] MEDS: Brexpiprazole 1 MG TABLET PO (08:58)
[2024-06-27] MEDS: Multivitamin TABLET 1 TAB PO (08:58)
--- NOTE | 2024-06-27 11:30 | HO.PSYCHPN ---
Subjective Subjective Date of Service: 06/27/24 Reason For Visit: parancia Subjective Notes: Conditional Voluntary Interim History: Pt slept through the night. She reports she feels the medication is working in that she feels less paranoid. She denies SI/HI. Less guarded, less ambivalent. Taking medication as prescribed. Medication Compliance: Yes Review of Systems Review of Systems Yes all other systems are reviewed and are negative Mental Status Exam Mental Status Exam Narrative: Appearance: wearing hospital gown, somewhat of a blank stare, in NAD Behavior: guarded, ambivalent, superficially cooperative Psychomotor: some retardation Speech: delayed response, minimally spontaneous TP: poverty of thought TC: some suspiciousness, not sure why she would be brought to the hospital nor why would others be concerned about her. Mood: okay Affect: constricted SI: denies HI: denies VH/AH: appears internally preoccupied but denies Delusions: suspiciousness about other talking about her Insight/judgment: impaired x 2 Memory/cog:alert, oriented to place, month, year not so much situation. Diagnostics Vital Signs (24Hr): Vital Signs - 24 hr 06/26/24 20:00 06/26/24 21:04 06/26/24 21:04 Temperature 97.2 F Pulse Rate 68 68 Respiratory Rate 16 Blood Pressure 119/64 119/64 119/64 Pulse Oximetry 98 Oxygen Delivery Method Room Air 06/27/24 08:00 Temperature 97.2 F Pulse Rate 64 Respiratory Rate 14 Blood Pressure 119/72 Pulse Oximetry 99 Oxygen Delivery Method Room Air BMI result Body Mass Index 21.8 Labs 06/19/24 22:06 06/20/24 18:43 Medications Medications Current Medications Acetaminophen (Acetaminophen 325 Mg Tablet) 650 mg PO Q6H PRN PRN Reason: Headache/Pain, Scale 1-10 Al Hydroxide/Mg Hydroxide (Magnesium Hydrox/Alum Hydrox 30 Ml Oral.Susp) 30 ml PO Q6H PRN PRN Reason: Heartburn/Nausea Amlodipine Besylate (Amlodipine Besylate 5 Mg Tablet) 5 mg PO DAILY [facility]; Protocol Last Admin: 06/27/24 08:57 Dose: 5 mg Aspirin (Aspirin Enteric Coated 81 Mg Tablet.) 81 mg PO DAILY [facility] Last Admin: 06/27/24 08:57 Dose: 81 mg Brexpiprazole (Brexpiprazole 1 Mg Tablet) 1 mg PO DAILY [facility] Last Admin: 06/27/24 08:58 Dose: 1 mg Carvedilol (Carvedilol 6.25 Mg Tablet) 6.25 mg PO BID [facility]; Protocol Last Admin: 06/27/24 08:57 Dose: 6.25 mg Furosemide (Furosemide 40 Mg Tablet) 40 mg PO DAILY [facility]; Protocol Last Admin: 06/27/24 08:58 Dose: 40 mg Lisinopril (Lisinopril 10 Mg Tablet) 10 mg PO BID [facility]; Protocol Last Admin: 06/27/24 08:57 Dose: 10 mg Magnesium Hydroxide (Milk Of Magnesia 30 Ml Oral.Susp) 30 ml PO DAILY PRN PRN Reason: Constipation Magnesium Oxide (Magnesium Oxide 400 Mg Tablet) 400 mg PO DAILY [facility] Last Admin: 06/27/24 08:58 Dose: 400 mg Multivitamins/Vitamin C (Multivitamin Tablet) 1 tab PO DAILY [facility] Last Admin: 06/27/24 08:58 Dose: 1 tab Potassium Chloride (Potassium Chloride Er 10 Meq Tablet.Er) 10 meq PO DAILY [facility] Last Admin: 06/27/24 08:57 Dose: 10 meq Trazodone HCl (Trazodone Hcl 50 Mg Tablet) 50 mg PO BEDTIME MRX1 PRN PRN Reason: Insomnia Last Admin: 06/24/24 19:53 Dose: 50 mg Vitamin D (Cholecalciferol (Vitamin D3) 25 Mcg Tablet) 25 mcg PO DAILY [facility] Last Admin: 06/27/24 08:57 Dose: 25 mcg Allergies Allergies Allergy/AdvReac Type Severity Reaction Status Date / Time nitrofurantoin Allergy Unknown Verified 06/19/24 20:58 [From Macrobid] haloperidol [From Haldol] AdvReac Numbness Verified 06/19/24 20:58 Assessment & Plan Assessment & Plan (1) Schizoaffective disorder, bipolar type: Status: Acute Code(s): F25.0 - Schizoaffective disorder, bipolar type (2) Dementia: Status: Acute Code(s): F03.90 - Unspecified dementia, unspecified severity, without behavioral disturbance, psychotic disturbance, mood disturbance, and anxiety Plan Mrs. Stephenson is a 78 year-old woman with hx of schizoaffective disorder who was brought via EMS after son requested wellness check. Pt is know through 5 prior admission with similar presentation, increased paranoid ideas in setting of stopping medications. She does have hx of EPS with paliperidone, haldol, risperidone. She does have resting tremors. She has done fairly well with olanzapine. We discussed risks, benefits and alternative treatment options. She agrees to restart and adjust dose of olanzapine. May benefit from ativan for delayed response and blank stare- catatonic like features (can do trial). PLAN 06/24 continue rexulti 1mg po daily. will dc ativan, as pt reports more sedation. 06/25 continue tx 06/26 continue tx. 06/27 continue tx. Reason for continued inpatient stay Substantial Risk for: inability to function Time Spent With Patient Time: Total time managing care of this patient today ____ minutes.
[2024-06-27 20:00] VITALS: BP 167/72; PULSE 70; RESP 17; TEMP 36.3; O2SAT 100
[2024-06-27 20:27] VITALS: BP 167/72
[2024-06-27 20:28] VITALS: BP 167/72; PULSE 70
--- NOTE | 2024-06-28 | ECG_ITS ---
Test Reason : paplpitations Blood Pressure : */* mmHG Vent. Rate : 67 BPM Atrial Rate : 67 BPM P-R Int : 148 ms QRS Dur : 90 ms QT Int : 402 ms P-R-T Axes : 63 46 97 degrees QTcB Int : 424 ms Normal sinus rhythm Minimal voltage criteria for LVH, may be normal variant ( [place] product ) Cannot rule out Anteroseptal infarct , age undetermined Abnormal ECG When compared with ECG of 20-Jun-2024 11:51, Minimal criteria for Anteroseptal infarct are now Present Referred By: Heide Mota Electronically Signed By: TOBY GUY
[2024-06-28 09:17] VITALS: BP 126/63; PULSE 70; RESP 18; TEMP 36.6; O2SAT 987
[2024-06-28] MEDS: Brexpiprazole 1 MG TABLET PO (09:23)
[2024-06-28] MEDS: Potassium Chloride ER 10 MEQ TABLET.ER PO (09:23)
[2024-06-28] MEDS: Furosemide 40 MG TABLET PO (09:23)
[2024-06-28] MEDS: lisinopriL 10 MG TABLET PO ×2 (09:23→20:25)
[2024-06-28] MEDS: Cholecalciferol (Vitamin D3) 25 MCG TABLET PO (09:23)
[2024-06-28] MEDS: Multivitamin TABLET 1 TAB PO (09:23)
[2024-06-28] MEDS: carvediloL 6.25 MG TABLET PO ×2 (09:23→20:25)
[2024-06-28] MEDS: Magnesium Oxide 400 MG TABLET PO (09:23)
[2024-06-28] MEDS: amLODIPine Besylate 5 MG TABLET PO (09:24)
[2024-06-28] MEDS: Aspirin Enteric Coated 81 MG TABLET.DR PO (09:24)
[2024-06-28 20:00] VITALS: BP 141/68; PULSE 70; RESP 16; TEMP 36.2; O2SAT 99
[2024-06-28 20:25] VITALS: BP 141/68; PULSE 70
--- NOTE | 2024-06-28 21:11 | HO.PSYCHPN ---
Subjective Subjective Date of Service: 06/28/24 Reason For Visit: parancia Subjective Notes: Conditional Voluntary Interim History: Pt slept through the night. She reports this morning after taking rexulti, had palpitations, also felt asleep, heard people calling her but couldn't wake up. No symptoms now and denies chest pain. EKG ordered. She reports she scare of taking rexulti. She reports she would rather go back to low dose of olanzapine, up to 2.5mg po qhs. She reports higher dose of olanzapine. She presents with brighter affect, less delayed response and less ambivalence in making decision. discussed considering lowering rexulti rather than stopping it, but pt declines. No SI/HI. Review of Systems Review of Systems Yes all other systems are reviewed and are negative Mental Status Exam Mental Status Exam Narrative: Appearance: wearing hospital gown, somewhat of a blank stare, in NAD Behavior: guarded, ambivalent, superficially cooperative Psychomotor: some retardation Speech: delayed response, minimally spontaneous TP: poverty of thought TC: some suspiciousness, not sure why she would be brought to the hospital nor why would others be concerned about her. Mood: okay Affect: constricted SI: denies HI: denies VH/AH: appears internally preoccupied but denies Delusions: suspiciousness about other talking about her Insight/judgment: impaired x 2 Memory/cog:alert, oriented to place, month, year not so much situation. Diagnostics Vital Signs (24Hr): Vital Signs - 24 hr 06/28/24 09:17 06/28/24 20:25 06/28/24 20:25 Temperature 97.9 F Pulse Rate 70 70 Respiratory Rate 18 Blood Pressure 126/63 141/68 H 141/68 H Pulse Oximetry 987 H Oxygen Delivery Method Room Air BMI result Body Mass Index 21.8 Labs 06/19/24 22:06 06/20/24 18:43 Medications Medications Current Medications Acetaminophen (Acetaminophen 325 Mg Tablet) 650 mg PO Q6H PRN PRN Reason: Headache/Pain, Scale 1-10 Al Hydroxide/Mg Hydroxide (Magnesium Hydrox/Alum Hydrox 30 Ml Oral.Susp) 30 ml PO Q6H PRN PRN Reason: Heartburn/Nausea Amlodipine Besylate (Amlodipine Besylate 5 Mg Tablet) 5 mg PO DAILY [facility]; Protocol Last Admin: 06/28/24 09:24 Dose: 5 mg Aspirin (Aspirin Enteric Coated 81 Mg Tablet.Dr) 81 mg PO DAILY [facility] Last Admin: 06/28/24 09:24 Dose: 81 mg Carvedilol (Carvedilol 6.25 Mg Tablet) 6.25 mg PO BID [facility]; Protocol Last Admin: 06/28/24 20:25 Dose: 6.25 mg Furosemide (Furosemide 40 Mg Tablet) 40 mg PO DAILY [facility]; Protocol Last Admin: 06/28/24 09:23 Dose: 40 mg Lisinopril (Lisinopril 10 Mg Tablet) 10 mg PO BID [facility]; Protocol Last Admin: 06/28/24 20:25 Dose: 10 mg Magnesium Hydroxide (Milk Of Magnesia 30 Ml Oral.Susp) 30 ml PO DAILY PRN PRN Reason: Constipation Magnesium Oxide (Magnesium Oxide 400 Mg Tablet) 400 mg PO DAILY [facility] Last Admin: 06/28/24 09:23 Dose: 400 mg Multivitamins/Vitamin C (Multivitamin Tablet) 1 tab PO DAILY [facility] Last Admin: 06/28/24 09:23 Dose: 1 tab Potassium Chloride (Potassium Chloride Er 10 Meq Tablet.Er) 10 meq PO DAILY [facility] Last Admin: 06/28/24 09:23 Dose: 10 meq Trazodone HCl (Trazodone Hcl 50 Mg Tablet) 50 mg PO BEDTIME MRX1 PRN PRN Reason: Insomnia Last Admin: 06/24/24 19:53 Dose: 50 mg Vitamin D (Cholecalciferol (Vitamin D3) 25 Mcg Tablet) 25 mcg PO DAILY [facility] Last Admin: 06/28/24 09:23 Dose: 25 mcg Allergies Allergies Allergy/AdvReac Type Severity Reaction Status Date / Time nitrofurantoin Allergy Unknown Verified 06/19/24 20:58 [From Macrobid] haloperidol [From Haldol] AdvReac Numbness Verified 06/19/24 20:58 Assessment & Plan Assessment & Plan (1) Schizoaffective disorder, bipolar type: Status: Acute Code(s): F25.0 - Schizoaffective disorder, bipolar type (2) Dementia: Status: Acute Code(s): F03.90 - Unspecified dementia, unspecified severity, without behavioral disturbance, psychotic disturbance, mood disturbance, and anxiety Plan Mrs. Stephenson is a 78 year-old woman with hx of schizoaffective disorder who was brought via EMS after son requested wellness check. Pt is know through 5 prior admission with similar presentation, increased paranoid ideas in setting of stopping medications. She does have hx of EPS with paliperidone, haldol, risperidone. She does have resting tremors. She has done fairly well with olanzapine. We discussed risks, benefits and alternative treatment options. She agrees to restart and adjust dose of olanzapine. May benefit from ativan for delayed response and blank stare- catatonic like features (can do trial). PLAN 06/24 continue rexulti 1mg po daily. will dc ativan, as pt reports more sedation. 06/25 continue tx 06/26 continue tx. 06/27 continue tx. 06/28 episode of palpitation, felt after breakfast and after taking medication felt asleep and could not wake up when called, reports fear of side effect with rexulti. ordered EKG which did show changes : Normal sinus rhythm Minimal voltage criteria for LVH, may be normal variant ( [place] product ) Cannot rule out Anteroseptal infarct , age undetermined Abnormal ECG When compared with ECG of 20-Jun-2024 11:51, Minimal criteria for Anteroseptal infarct are now Present troponins negative- 12.6, will repeat in AM with EKG Reason for continued inpatient stay Substantial Risk for: inability to function Time Spent With Patient Time: Total time managing care of this patient today ____ minutes.
[2024-06-28 21:38] LABS: Troponin-I High Sensitivity 12.6 ng/L (<3.5-17.0)
--- NOTE | 2024-06-29 | ECG_ITS ---
Test Reason : ABN EKG Blood Pressure : */* mmHG Vent. Rate : 65 BPM Atrial Rate : 65 BPM P-R Int : 148 ms QRS Dur : 96 ms QT Int : 382 ms P-R-T Axes : 66 57 103 degrees QTcB Int : 397 ms Normal sinus rhythm Possible Left atrial enlargement Minimal voltage criteria for LVH, may be normal variant ( Sokolow-Mcintosh ) Cannot rule out Anterior infarct (cited on or before 28-Jun-2024) Abnormal ECG When compared with ECG of 28-Jun-2024 13:32, No significant changes seen Referred By: Heide Mota Electronically Signed By: TOBY GUY
[2024-06-29 07:56] VITALS: BP 142/66; PULSE 67; RESP 16; TEMP 36.8; O2SAT 96
[2024-06-29] MEDS: Magnesium Oxide 400 MG TABLET PO (08:07)
[2024-06-29] MEDS: Furosemide 40 MG TABLET PO (08:07)
[2024-06-29] MEDS: Potassium Chloride ER 10 MEQ TABLET.ER PO (08:08)
[2024-06-29] MEDS: Cholecalciferol (Vitamin D3) 25 MCG TABLET PO (08:08)
[2024-06-29] MEDS: lisinopriL 10 MG TABLET PO (08:08)
[2024-06-29] MEDS: amLODIPine Besylate 5 MG TABLET PO (08:08)
[2024-06-29] MEDS: Aspirin Enteric Coated 81 MG TABLET.DR PO (08:08)
[2024-06-29] MEDS: Multivitamin TABLET 1 TAB PO (08:08)
[2024-06-29] MEDS: carvediloL 6.25 MG TABLET PO (08:08)
--- NOTE | 2024-06-29 10:01 | PM.PSYDC ---
DS: Providers Provider Date of Service: 06/29/24 Date of admission: 06/20/24 14:50 Date of discharge: 06/29/24 Primary care physician: Garrison Beatty MD DS: Diagnosis Discharge Diagnosis (1) Schizoaffective disorder, bipolar type: Status: Acute (2) Dementia: Status: Acute DS: Medications Discharge Medications Home Medications: Home Medications ?Medication ?Instructions ?Recorded ?Confirmed ezetimibe 10 mg tablet 10 mg PO DAILY 06/20/24 Previous Rx's ?Medication ?Instructions ?Recorded amlodipine 5 mg tablet 5 mg PO DAILY 30 days #30 tabs 01/11/24 aspirin 81 mg tablet,delayed 81 mg PO DAILY #30 tabs 01/11/24 release betamethasone, augmented 0.05 % 1 appl topical BID 30 days #5 grams 01/11/24 topical cream carvedilol 6.25 mg tablet 6.25 mg PO BID 30 days #60 tabs 01/11/24 cholecalciferol (vitamin D3) 25 25 mcg PO DAILY #30 tabs 01/11/24 mcg (1,000 unit) tablet clotrimazole 1 % topical cream 1 appl topical BID 30 days #5 grams 01/11/24 furosemide 40 mg tablet 40 mg PO DAILY 30 days #30 tabs 01/11/24 lisinopril 10 mg tablet 10 mg PO BID 30 days #60 tabs 01/11/24 magnesium oxide 400 mg (241.3 mg 400 mg PO DAILY #30 tabs 01/11/24 magnesium) tablet multivitamin (Daily-Brielle tablet) 1 tab PO DAILY #30 tabs 01/11/24 olanzapine 2.5 mg tablet 2.5 mg PO BEDTIME 30 days #30 tabs 01/11/24 potassium chloride 10 mEq 10 meq PO DAILY 30 days #30 caps 01/11/24 capsule,extended release Mental Status Exam Mental Status Exam Narrative: Appearance: wearing hospital gown, somewhat of a blank stare, in NAD Behavior: guarded, ambivalent, superficially cooperative Psychomotor: some retardation Speech: delayed response, minimally spontaneous TP: poverty of thought TC: some suspiciousness, not sure why she would be brought to the hospital nor why would others be concerned about her. Mood: okay Affect: constricted SI: denies HI: denies VH/AH: appears internally preoccupied but denies Delusions: suspiciousness about other talking about her Insight/judgment: impaired x 2 Memory/cog:alert, oriented to place, month, year not so much situation. Data Data Completed and Pending Completed studies during hospitalization [Text1]: 06/28/24 06/29/24 21:14 07:30 Troponin I High Sens 12.6 11.0 DS: Summary Hospital Course Hospital Course: Mrs. Stephenson iss a 78 year-old woman with hx of schizoaffective disorder who was brought via EMS from home after son requested wellness check. Per care team assessment, pt had been calling [facility], cancelling appointments and at times cancelling appointment she did not have. Per crisis assessment, pt's son had reported that housing management had called him to report that she seemed more confused (unclear what they were referring to). In the ED, pertinent labs include cbc mostly unremarkable, without leukocytosis; CMP without electrolyte abnormalities, BUN slightly elevated 23, Cr 0.71 with creatinine clearance 51.6, repeat next day with increase Cr 1.03 but stable BUN, creatinine clearance decreased to 35.5. UA not suggestive of UTI, wnl otherwise. Utox was negative. On the unit, pt presents as calm, somewhat guarded. She reports she does not know why she is here. She reports the ambulance brought her to the hospital but she does not know why. She reports she had stopped taking olanzapine, but wonders how would the hospital knows about this. Pt informed his son had expressed concern about her stopping her medications, which she does from time to time and had asked for wellness check. When asked about what was going on at her apartment complex, she initially presents with long pause, states nothing really. She then reports she was cancelling appointments because she thought people were mad at her and talking about her. She denies concern in terms of her safety or other paranoid delusions. She is ambivalent about needing medications. She denies SI/HI. She agrees to restart olanzapine. She denies any other concerns. When asked about whether she has questions or not, she reports but what question could I have? She denies any physical concerns. Past Psychiatric History: Inpt: at least 5 admission to [facility] 01/11/2024; 02/25/2022; 11/21/2021; 09/17/2021; 03/04/2021 [facility] [place] [facility] ED 3Xin past 2 months for somatic sx IPLOC at [facility], in 2010. Remote hx of IPLOC at [facility]. Previous SI attempt in 2010 Therapist Zena Maldonado, Psych provider: Yamileth Dalal NP Past medication trials: olanzapine, haldol (EPS), depakote, risperidone (EPS) HOSPITAL COURSE On the unit, pt was admitted on a CV and placed on 15 minutes checks for safety. Pt presented with ambivalence to make decisions and overall poverty of thought. She reported she did not know why she was in the hospital. She did report that she had stopped olanzapine due to concern of palpitation, which she apparently had gone to urgent care about. She does have hx of cardiomyopathy on combination of lisinopril, metoprolol, aspirin and statin. She reported that she felt people were talking about her and cancelled her appointments. When asked to elaborate, she would not provide more details (who she thought was talking about her or what were they saying). She denied SI/HI. She has limited insight as to why others do get concern when she stops medications. She usually will presents as more suspicious and very ambivalent with more pronounced poverty of thought. She is very sensitive to side effects of antipsychotics affecting movement disorders. She does have a resting tremor more pronounced on right hand. She has been on olanzapine for several years. She has been on low doses for the most part between 2.5mg po qhs to 5mg po qhs. Seeing her sitting with blank stare, along with ambivalence and decrease spontaneous or repetitive speech, trial of ativan for catatonic like feature was completed. She seemed initially to show some improvement in affect (brighter) and even ambivalence to respond with more fluent speech (able to talk about her family, awaiting for easter celebration) to low dose of ativan but as this medication was scheduled seemed to be more sedating. In terms of antipsychotic, pt agreed to try rexulti, she was on 1mg po daily. She did seem to respond to this medication in that she seemed brighter, non labile with less ambivalence and more content in conversation which was appropriate and without delusions. She did have episode of palpitations while on the unit. She denied chest pain. She also reported laying down and not being able to wake up when RN called her and this being a scary experience which she was concern was related to rexulti. She had an EKG which showed Normal sinus rhythm, Possible Left atrial enlargement, Minimal voltage criteria for LVH, may be normal variant ( Sokolow-Mcintosh ) Cannot rule out Anterior infarct (cited on or before 28-Jun-2024). Troponins were wnl twice 12.6, repeat 6hrs later 11. Reviewed with edi manager, Dr. Reynolds who reported no acute change nor need for further intervention inpatient but given her chronic hx of cardiomyopathy, she needs to follow up cardiology. Pt reported she has folowed up with [facility] cardiology and follow up appointment was obtained. Pt was hesitant about resuming even lower dose of rexulti, she had finally agreed but copayment (at least until meeting deductible) was of $600, therefore, decided to continue olanzapine at bedtime, which pt would only take max dose of 2.5mg po qhs. Status at Discharge Cognitive/behavioral status at discharge: Pt with brighter, non labile affect. Less ambivalence, increase content in conversation appropriate and without over delusional content. No SI/HI. No VH/AH. No overt delusions but suspect some residual. Functional status at discharge: independent ambulation Overall status at discharge: patient is back to baseline Time Spent with Patient Time attestation: Total time managing care of this patient today _35___ minutes. Time spent: Greater than 30 minutes Discharge Plan Discharge Anticipated Discharge Date/Time: 06/29/24 10:12 Patient Disposition: Home, Self-Care Discharge Diagnosis: schizoaffective disorder Referrals: Nellie Dalal [facility] [Other] - 07/03/24 11:30 am (Your next phone appointment with Nellie Dalal is scheduled for 07/03/24 at 11:30am.) Garrison Beatty MD [Primary Care Provider] - 1 Week (Request for PCP follow up made and the office will call you with appointment. ) Price Ash NP [Nurse Practitioner] - 11/22/24 10:15 am (Your follow up Cardiology appointment has been scheduled with Price Ash N.P on Wednesday11/22/24 at 10:15am) Discharge Medications: New carvedilol 6.25 mg Tablet 6.25 mg PO BID Qty: 60 0RF Protocol: Hold for SBP/HR < HOLD for SBP < : 90 HOLD for HR < : 60 amlodipine 5 mg Tablet 5 mg PO DAILY Qty: 30 0RF Protocol: Hold for SBP< HOLD for SBP < : 90 Rexulti 0.5 mg tablet 0.5 mg PO DAILY Qty: 30 0RF olanzapine 2.5 mg tablet 2.5 mg PO BEDTIME Qty: 30 0RF Continued lisinopril 10 mg Tablet 10 mg PO BID 30 Days Qty: 60 0RF Protocol: Hold for SBP< HOLD for SBP < : 90 furosemide 40 mg Tablet 40 mg PO DAILY 30 Days Qty: 30 0RF Protocol: Hold for SBP< HOLD for SBP < : 90 multivitamin [Daily-Brielle] Tablet 1 tab PO DAILY Qty: 30 0RF potassium chloride 10 mEq Capsule, Extended Release 10 meq PO DAILY 30 Days Qty: 30 0RF aspirin 81 mg Tablet,Delayed Release (Dr/Ec) 81 mg PO DAILY Qty: 30 0RF magnesium oxide 400 mg (241.3 mg magnesium) Tablet 400 mg PO DAILY Qty: 30 0RF cholecalciferol (vitamin D3) 25 mcg (1,000 unit) Tablet 25 mcg PO DAILY Qty: 30 0RF ezetimibe 10 mg tablet 10 mg PO DAILY Discontinued carvedilol 6.25 mg Tablet 6.25 mg PO BID 30 Days Qty: 60 0RF Protocol: Hold for SBP/HR < HOLD for SBP < : 90 HOLD for HR < : 60 betamethasone, augmented 0.05 % Cream 1 appl topical BID 30 Days Qty: 5 0RF Protocol: Apply to: Apply to: legs clotrimazole 1 % Cream 1 appl topical BID 30 Days Qty: 5 0RF Protocol: Apply to: Apply to: legs amlodipine 5 mg Tablet 5 mg PO DAILY 30 Days Qty: 30 0RF Protocol: Hold for SBP< HOLD for SBP < : 90 olanzapine 2.5 mg tablet 2.5 mg PO BEDTIME 30 Days Qty: 30 0RF Discharge Orders: Discharge Order (Routine); Ordered 06/29/24 Ordered By: Heide Mota Diet: Low fat, low cholesterol Activity on Discharge: As tolerated Stand Alone Forms: Patient Portal Discharge page Print Language: [place] Care Plan Goals: 1. Maintain moof 2. No SI/HI 3. Less paranoid Health Concerns: Follow up with cardiology at [facility] Follow up with PCP for routine care Plan of Treatment: 1. take medications as prescribed 2. Go to nearest ED or call 911 in event of emergency Assessment: Pt with brighter, non labile affect. No SI/HI. Sleeping and eating well. Less paranoid ideas. Some ambivalence but less. Discharge Date/Time: 06/29/24 13:06
[2024-06-29 10:09] VITALS: BMI 21.8
[2024-06-29] MEDS: Brexpiprazole 1 MG TABLET 0.5 MG PO (11:32)
== END 2024-06-29 13:06 | disposition home or self-care (01) | DRG 885 ==
LOC: HO.ED 06-20 14:58 → HO.PGERI 06-20 14:59
PROVIDERS: Admitting Provider Social Worker; Emergency Provider Internal Medicine; PCP Internal Medicine; Visit Provider Social Worker
DX: F25.0 Schizoaffective disorder, bipolar type (principal); I25.10 Atherosclerotic heart disease of native coronary artery without angina pectoris; I10 Essential (primary) hypertension; F03.90 Unspecified dementia, unspecified severity, without behavioral disturbance, psychotic disturbance, mood disturbance, and anxiety; I25.5 Ischemic cardiomyopathy; Z91.51 Personal history of suicidal behavior; Z79.82 Long term (current) use of aspirin; Z79.899 Other long term (current) drug therapy
CPT/HCPCS: 36415; 80053; 80061; 81003; 82607; 82746; 83036; 84443; 84484; 85025; 93005; 99285; S9485

== ENCOUNTER → 2024-06-20 10:42 | Outpatient (BNV) | payer MEDICARE, SELFPAY | PROVIDERS: Admitting Provider Social Worker; Emergency Provider Internal Medicine; PCP Internal Medicine; Visit Provider Internal Medicine Cardiovascular Disease | DX: R94.31 Abnormal electrocardiogram [ECG] [EKG] (principal); Z13.6 Encounter for screening for cardiovascular disorders | CPT/HCPCS: 93010 ==

== ENCOUNTER 2024-06-20 14:50 | Outpatient (BNV) | payer MEDICARE, SELFPAY | END 2024-06-29 08:14 | PROVIDERS: Admitting Provider Social Worker; Emergency Provider Internal Medicine; PCP Internal Medicine; Visit Provider Internal Medicine | DX: R94.31 Abnormal electrocardiogram [ECG] [EKG] (principal) | CPT/HCPCS: 93010 ==

== ENCOUNTER 2024-06-20 14:50 | Outpatient (BNV) | payer MEDICARE, SELFPAY | END 2024-06-28 13:32 | PROVIDERS: Admitting Provider Social Worker; Emergency Provider Internal Medicine; PCP Internal Medicine; Visit Provider Internal Medicine | DX: R00.2 Palpitations (principal); R94.31 Abnormal electrocardiogram [ECG] [EKG] | CPT/HCPCS: 93010 ==

== ENCOUNTER → 2024-06-20 14:50 | Outpatient (BNV) | payer MEDICARE, SELFPAY | PROVIDERS: Admitting Provider Social Worker; Emergency Provider Internal Medicine; PCP Internal Medicine; Visit Provider Social Worker | DX: F25.0 Schizoaffective disorder, bipolar type (principal); F03.90 Unspecified dementia, unspecified severity, without behavioral disturbance, psychotic disturbance, mood disturbance, and anxiety | CPT/HCPCS: 90792; 99231; 99232; 99239 ==

== ENCOUNTER 2024-07-11 18:45 | Emergency (ER) | payer MEDICARE, SELFPAY ==
--- NOTE | 2024-07-11 | ECG_ITS ---
Test Reason : CP Blood Pressure : */* mmHG Vent. Rate : 74 BPM Atrial Rate : 74 BPM P-R Int : 150 ms QRS Dur : 90 ms QT Int : 392 ms P-R-T Axes : 60 44 79 degrees QTcB Int : 435 ms Normal sinus rhythm Possible Left atrial enlargement Minimal voltage criteria for LVH, may be normal variant ( [place] product ) Cannot rule out Anteroseptal infarct (cited on or before 28-Jun-2024) Abnormal ECG When compared with ECG of 29-Jun-2024 08:14, No significant change was found Referred By: Generic ED Physician Electronically Signed By: TOBY GUY
[2024-07-11 18:49] VITALS: BP 189/92; PULSE 80; O2SAT 97
[2024-07-11 18:50] VITALS: BP 173/76; PULSE 75; RESP 18; TEMP 36.9; O2SAT 99; BMI 22.6
[2024-07-11 19:06] LABS: Basophils Percent Auto 0.5 % (0-2); Eosinophils Absolute Auto 0.1 X10*3/uL (0.0-0.4); Eosinophils Percent Auto 0.8 % (0-4); Hematocrit 37.5 % (37.0-47.0); Hemoglobin 13.5 g/dl (12.0-16.0); Imm Gran Abs Auto 0.03 X10*3/uL (0.00-0.03); Imm Gran Pct Auto 0.3 % (0.0-0.4); Lymphocytes Absolute Auto 2.3 X10*3/uL (1.2-4.9); Lymphocytes Percent Auto 25.9 % (20-40); MANUAL DIFF FLAG NO; Mean Corpuscular Hemoglobin 32.1 pg (27.0-33.0); Mean Corpuscular Volume 89.3 fL (80.0-98.0); Mean Platelet Volume 8.9 fL (9.4-12.3); Monocytes Absolute Auto 0.7 X10*3/uL (0.1-1.2); Monocytes Percent Auto 8.1 % (2-11); Neutrophils Absolute Auto 5.7 x10*3/uL (2.0-8.3); Neutrophils Percent Auto 64.4 % (45-73); Platelet Count 321 X10*3/uL (160-400); Red Cell Distribution Width 12.2 % (11.0-16.0); White Blood Count 8.9 X10*3/uL (4.8-10.8)
[2024-07-11 19:21] LABS: Alanine Aminotransferase 18 U/L (0-31); Albumin Level 4.3 g/dL (3.5-5.0); Alkaline Phosphatase 92 U/L (39-117); Anion Gap 17 (12-20); Aspartate Amino Transferase 24 U/L (5-31); Bilirubin Total 0.4 mg/dL (0.0-1.0); Blood Urea Nitrogen 22 mg/dL (9-16); Calcium 9.6 mg/dL (8.4-10.2); Carbon Dioxide 25 mmol/L (22-29); Chloride 99 mmol/L (96-108); Creatinine Clr Calc Pharmacy 48.7; Estimated Glomerular Filt Rate > 60; Glucose Random 119 mg/dL (60-115); Potassium 3.6 mmol/L (3.3-5.1); Sodium 137 mmol/L (135-145); Total Protein 7.2 g/dL (6.5-8.0)
[2024-07-11 19:28] LABS: Troponin-I High Sensitivity 9.2 ng/L (<3.5-17.0)
--- NOTE | 2024-07-11 19:58 | ED_ITS ---
HPI - Chest Pain General Chief Complaint: Chest Pain Stated Complaint: ?chest pain Time Seen by Provider: 07/11/24 19:19 Source: patient Mode of arrival: ambulatory Limitations: no limitations History of Present Illness ED Provider: HPI narrative: Patient's history of dementia, and anxiety on Zyprexa which she stopped taking but 2 weeks ago for no reason you know she feels anxious patient does have a schizoaffective disorder and [facility] per family patient also complaining of chest pain prior to arrival on arrival patient's denied any chest pain Related Data Home Medications ?Medication ?Instructions ?Recorded ?Confirmed ezetimibe 10 mg tablet 10 mg PO DAILY 06/20/24 07/14/24 Previous Rx's ?Medication ?Instructions ?Recorded aspirin 81 mg tablet,delayed 81 mg PO DAILY #30 tabs 01/11/24 release cholecalciferol (vitamin D3) 25 25 mcg PO DAILY #30 tabs 01/11/24 mcg (1,000 unit) tablet furosemide 40 mg tablet 40 mg PO DAILY 30 days #30 tabs 01/11/24 lisinopril 10 mg tablet 10 mg PO BID 30 days #60 tabs 01/11/24 magnesium oxide 400 mg (241.3 mg 400 mg PO DAILY #30 tabs 01/11/24 magnesium) tablet multivitamin (Daily-Brielle tablet) 1 tab PO DAILY #30 tabs 01/11/24 potassium chloride 10 mEq 10 meq PO DAILY 30 days #30 caps 01/11/24 capsule,extended release amlodipine 5 mg tablet 5 mg PO DAILY #30 tabs 06/29/24 brexpiprazole 0.5 mg tablet 0.5 mg PO DAILY #30 tabs 06/29/24 (Rexulti) carvedilol 6.25 mg tablet 6.25 mg PO BID #60 tabs 06/29/24 olanzapine 2.5 mg tablet 2.5 mg PO BEDTIME #30 tabs 06/29/24 Allergies Allergy/AdvReac Type Severity Reaction Status Date / Time nitrofurantoin Allergy Unknown Verified 07/14/24 19:20 [From Macrobid] haloperidol [From Haldol] AdvReac Numbness Verified 07/14/24 19:20 Review of Systems 2 Review of Systems: Yes all other systems are reviewed and are negative PMFSH Past Medical History Medical History Ischemic cardiomyopathy Essential hypertension Coronary artery disease Schizoaffective disorder, bipolar type Surgical History S/P CABG (coronary artery bypass graft) Social History Social History Household Members: None Household Members Other:: Pt reports she lives alone. Housing: Apartment Do you presently have visiting nurse or other home services: No Alcohol intake: never Patient Tobacco Use Status: Never used Tobacco Smoked in Last 30 Days: No e-Cigarette/Vaping Use: Never Used Use of substances other than those prescribed or required for medical reasons: No Advance Directives: Yes Advance Directives on File: Yes Advance Directives Date on File: 03/06/21 Do you have a plan to hurt others: No Plan service: No Sexual orientation: Straight/Heterosexual Physical Exam 2 Vital Signs: Vital Signs: Last Vital Signs Temp 98.4 F 07/12/24 18:55 Pulse 67 07/12/24 18:55 Resp 16 07/12/24 18:55 BP 123/85 07/12/24 18:55 Pulse Ox 97 07/12/24 18:55 O2 Del Method Room Air 07/12/24 18:55 BMI result Body Mass Index 22.6 Appearance: Alert. Oriented X3. No acute distress. Eyes: PERRLA, No Nystagmus ENT: Pharynx normal. Oral Mucosa moist Neck: Normal inspection. Neck supple. CVS: Normal heart rate and rhythm. Pulses normal. Respiratory: No respiratory distress. Equal air entry bilateral, no wheezing/rales/rhonchi Abdomen: Soft and nontender. Bowel sounds are present, no mass palpable, no CVA tenderness Skin: Skin warm and dry. Normal skin color. Normal skin turgor. Extremities: No lower extremity edema. No calf tenderness Neuro: Oriented X 3. No motor deficit. No sensory deficit.No cerebellar signs , cranial nerves II-XII intact Medications Administered Discontinued Medications Generic Name Dose Route Start Last Admin Trade Name Freq PRN Reason Stop Dose Admin Amlodipine Besylate 5 mg 07/12/24 09:00 07/12/24 07:56 Amlodipine Besylate 5 Mg Tablet PO 5 mg DAILY JOHNATHAN Administration Protocol Aspirin 81 mg 07/12/24 09:00 07/12/24 07:55 Aspirin Enteric Coated 81 Mg Tablet. PO 81 mg DAILY JOHNATHAN Administration Carvedilol 6.25 mg 07/12/24 00:45 07/12/24 07:56 Carvedilol 6.25 Mg Tablet PO 6.25 mg BID JOHNATHAN Administration Protocol Ezetimibe 10 mg 07/12/24 09:00 07/12/24 07:56 Ezetimibe 10 Mg Tablet PO 10 mg DAILY JOHNATHAN Administration Furosemide 40 mg 07/12/24 09:00 07/12/24 07:56 Furosemide 40 Mg Tablet PO 40 mg DAILY JOHNATHAN Administration Protocol Lisinopril 10 mg 07/12/24 00:45 07/12/24 07:56 Lisinopril 10 Mg Tablet PO 10 mg BID JOHNATHAN Administration Protocol Magnesium Oxide 400 mg 07/12/24 09:00 07/12/24 07:56 Magnesium Oxide 400 Mg Tablet PO 400 mg DAILY JOHNATHAN Administration Multivitamins/Vitamin C 1 tab 07/12/24 09:00 07/12/24 07:55 Multivitamin Tablet PO 1 tab DAILY JOHNATHAN Administration Olanzapine 2.5 mg 07/12/24 00:45 07/12/24 01:46 Olanzapine 2.5 Mg Tablet PO 2.5 mg BEDTIME JOHNATHAN Administration Potassium Chloride 10 meq 07/12/24 09:00 07/12/24 07:55 Potassium Chloride Er 10 Meq Tablet.Er PO 10 meq DAILY JOHNATHAN Administration Vitamin D 25 mcg 07/12/24 09:00 07/12/24 07:56 Cholecalciferol (Vitamin D3) 25 Mcg Tablet PO 25 mcg DAILY JOHNATHAN Administration Medical Decision Making Medical Decision Making MDM Narrative: Patient's dementia with history of schizoaffective disorder on Zyprexa been admitted to 0 seconds stopped her Zyprexa ago unable to explain why she did so family concern would like to have care team evaluation Patient is seen by care team plan for admission section 12 placed Lab Data [facility] Lab Attestation statement: I reviewed the patient's lab results. 07/11/24 19:01 07/11/24 19:01 Labs: Lab Results 07/11/24 07/11/24 07/12/24 Range/Units 19:01 21:11 00:27 WBC 8.9 (4.8-10.8) X10*3/uL RBC 4.20 (4.20-5.50) X10*6/uL Hgb 13.5 (12.0-16.0) g/dl Hct 37.5 (37.0-47.0) % MCV 89.3 (80.0-98.0) fL MCH 32.1 (27.0-33.0) pg MCHC 36.0 H (31.0-35.0) g/dl RDW 12.2 (11.0-16.0) % Plt Count 321 (160-400) X10*3/uL MPV 8.9 L (9.4-12.3) fL Immature Gran % (Auto) 0.3 (0.0-0.4) % Neut % (Auto) 64.4 (45-73) % Lymph % (Auto) 25.9 (20-40) % [place] % (Auto) 8.1 (2-11) % Eos % (Auto) 0.8 (0-4) % Baso % (Auto) 0.5 (0-2) % Lymph # (Auto) 2.3 (1.2-4.9) X10*3/uL [place] # (Auto) 0.7 (0.1-1.2) X10*3/uL Eos # (Auto) 0.1 (0.0-0.4) X10*3/uL Baso # (Auto) 0.0 (0.0-0.2) X10*3/uL Abs Immat Gran (auto) 0.03 (0.00-0.03) X10*3/uL Absolute Neuts (auto) 5.7 (2.0-8.3) x10*3/uL Absolute Nucleated RBC 0.000 (0.0-0.012) X10*3/uL Nucleated RBC % (auto) 0.0 (0.0-0.2) /100WBC Sodium 137 (135-145) mmol/L Potassium 3.6 (3.3-5.1) mmol/L Chloride 99 (96-108) mmol/L Carbon Dioxide 25 (22-29) mmol/L Anion Gap 17 (12-20) BUN 22 H (9-16) mg/dL Creatinine 0.74 (0.5-1.4) mg/dL Estim Creat Clear Calc 48.7 Estimated GFR > 60 Random Glucose 119 H (60-115) mg/dL Calcium 9.6 (8.4-10.2) mg/dL Total Bilirubin 0.4 (0.0-1.0) mg/dL AST 24 (5-31) U/L ALT 18 (0-31) U/L Alkaline Phosphatase 92 (39-117) U/L Troponin I High Sens 9.2 9.1 (<3.5-17.0) ng/L Total Protein 7.2 (6.5-8.0) g/dL Albumin 4.3 (3.5-5.0) g/dL Urine Color Yellow Urine Appearance Clear Urine pH 6.0 (5.0-9.0) Ur Specific [place] 1.020 (1.005-1.025) Urine Protein Negative (Neg-Trace) mg/dL Urine Glucose (UA) Negative (Negative) mg/dL Urine Ketones Negative (Negative) mg/dL Urine Blood Negative (Negative) Urine Nitrite Negative (Negative) Ur Leukocyte Esterase Trace H (Negative) Urine RBC 0-2 (0-2) /HPF Urine WBC 0-5 (0-5) /HPF Ur Squamous Epith Cells 0-2 (0-2) /HPF Urine Bacteria None Seen (None Seen) Hyaline Casts 0-2 (0-2) /LPF Urine Opiates Screen Not Detected (Not Detect) Ur Buprenorphine Scrn Not Detected (Not Detect) ng/mL Ur Oxycodone Screen Not Detected (Not Detect) ng/mL Urine Methadone Screen Not Detected (Not Detect) ng/mL Urine Fentanyl Screen Not Detected (Not Detect) Ur Barbiturates Screen Not Detected (Not Detect) Ur Phencyclidine Scrn Not Detected (Not Detect) Ur Amphetamines Screen Not Detected (Not Detect) U Benzodiazepines Scrn Not Detected (Not Detect) Urine Cocaine Screen Not Detected (Not Detect) U Marijuana (THC) Screen Not Detected (Not Detect) Independent Interpretation I performed an independent interpretation of an: EKG Interpretation: Normal sinus rhythm heart rate 74, LVH poor progression of R-wave no acute ST-T changes no acute ischemia Discharge Plan Discharge Clinical Impression: Dementia, Schizoaffective disorder, bipolar type, Atypical chest pain Patient Disposition: Home, Self-Care Prescriptions: No Action lisinopril 10 mg Tablet 10 mg PO BID 30 Days Qty: 60 0RF Protocol: Hold for SBP< HOLD for SBP < : 90 furosemide 40 mg Tablet 40 mg PO DAILY 30 Days Qty: 30 0RF Protocol: Hold for SBP< HOLD for SBP < : 90 multivitamin [Daily-Brielle] Tablet 1 tab PO DAILY Qty: 30 0RF potassium chloride 10 mEq Capsule, Extended Release 10 meq PO DAILY 30 Days Qty: 30 0RF aspirin 81 mg Tablet,Delayed Release (Dr/Ec) 81 mg PO DAILY Qty: 30 0RF magnesium oxide 400 mg (241.3 mg magnesium) Tablet 400 mg PO DAILY Qty: 30 0RF cholecalciferol (vitamin D3) 25 mcg (1,000 unit) Tablet 25 mcg PO DAILY Qty: 30 0RF ezetimibe 10 mg tablet 10 mg PO DAILY carvedilol 6.25 mg Tablet 6.25 mg PO BID Qty: 60 0RF Protocol: Hold for SBP/HR < HOLD for SBP < : 90 HOLD for HR < : 60 amlodipine 5 mg Tablet 5 mg PO DAILY Qty: 30 0RF Protocol: Hold for SBP< HOLD for SBP < : 90 Rexulti 0.5 mg tablet 0.5 mg PO DAILY Qty: 30 0RF olanzapine 2.5 mg tablet 2.5 mg PO BEDTIME Qty: 30 0RF Interventions: ED Discharge Assessment Last Done: 07/12/24 18:55 Discharge Date/Time: 07/12/24 17:56 Print Language: Citizen [place]
[2024-07-11 20:11] VITALS: BP 138/66; PULSE 73; RESP 14; O2SAT 99
[2024-07-11 21:37] LABS: Troponin-I High Sensitivity 9.1 ng/L (<3.5-17.0)
--- NOTE | 2024-07-11 22:04 | PC.NURSE ---
this RN spoke with pt son at this time, per pt son, pt has had increased anxiety since being discharged from [facility]. pt son reports pt calls him daily in the middle of the night reporting hallucinations and paranoia. pt son reports he does not feel as if she is safe to be discharged home alone. aware, plan for careteam consult. pt denies si/hi.
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
--- NOTE | 2024-07-12 00:22 | PC.NURSE ---
pt noted to be wandering around hallway and appears confused, elopement band placed for pt safety, assigned by dry charge process attendant.
[2024-07-12 00:33] LABS: Appearance Urine Clear; Color Urine Yellow; Glucose Urine UA Negative (Negative); Leukocyte Esterase Urine Trace (Negative); Nitrite Urine Negative (Negative); UMIC TRIGGER UACC YES; Urine Blood Negative (Negative); Urine Ketones Negative (Negative); Urine Protein Negative (Neg-Trace)
--- NOTE | 2024-07-12 00:34 | PC.NURSE ---
med rec completed with pt due to pt requesting night time medications. pt states the only medication she does not take is Rexulti since she can not afford it so she takes zyprexa instead. aware med rec is complete.
[2024-07-12 00:38] LABS: Bacteria Urine None Seen (None Seen); Hyaline Casts Urine 0-2 /LPF (0-2); RBC Urine 0-2 /HPF (0-2); Squamous Epithelial Cell Urine 0-2 /HPF (0-2); WBC Urine 0-5 /HPF (0-5)
[2024-07-12 00:44] LABS: Amphetamine Screen Urine Not Detected (Not Detect); Barbiturates, Urine Not Detected (Not Detect); Benzodiazepines Screen Urine Not Detected (Not Detect); Buprenorphine Scr Not Detected (Not Detect); Cannabinoid Screen Urine Not Detected (Not Detect); Cocaine Screen Urine Not Detected (Not Detect); Fentanyl, urine Not Detected (Not Detect); Methadone Screen, Urine Not Detected (Not Detect); Opiate Screen Urine Not Detected (Not Detect); Oxycodone Screen Urine Not Detected (Not Detect); Phencyclidine Screen Urine Not Detected (Not Detect)
[2024-07-12 01:43] VITALS: BP 155/75; PULSE 78; RESP 17; TEMP 36.5; O2SAT 98
[2024-07-12] MEDS: OLANZapine 2.5 MG TABLET PO (01:46)
[2024-07-12] MEDS: lisinopriL 10 MG TABLET PO ×2 (01:46→07:56)
[2024-07-12] MEDS: carvediloL 6.25 MG TABLET PO ×2 (01:46→07:56)
--- NOTE | 2024-07-12 01:55 | PC.NURSE ---
pt medicated per mar, tolerated whole well with water, vss.
--- NOTE | 2024-07-12 05:56 | PC.NURSE ---
Patient slept through the night, no distress observed/reported, med and meals compliant, 15 minutes safety check, no behavior and safety concerns, disposition per care team is section 12 inpatient bed search, will continue to monitor
--- NOTE | 2024-07-12 07:20 | PC.NURSE ---
Assumed care of patient at 0645, patient appears to be in no apparent distress this am, ambulating to bathroom and back to room, now eating breakfast. Continue plan of care for IPLOC
[2024-07-12 07:29] VITALS: BP 153/62; PULSE 67; RESP 14; TEMP 36.6; O2SAT 99
[2024-07-12] MEDS: Potassium Chloride ER 10 MEQ TABLET.ER PO (07:55)
[2024-07-12] MEDS: Aspirin Enteric Coated 81 MG TABLET.DR PO (07:55)
[2024-07-12] MEDS: Multivitamin TABLET 1 TAB PO (07:55)
[2024-07-12 07:56] VITALS: BP 153/62; PULSE 67
[2024-07-12] MEDS: Ezetimibe 10 MG TABLET PO (07:56)
[2024-07-12] MEDS: amLODIPine Besylate 5 MG TABLET PO (07:56)
[2024-07-12] MEDS: Cholecalciferol (Vitamin D3) 25 MCG TABLET PO (07:56)
[2024-07-12] MEDS: Furosemide 40 MG TABLET PO (07:56)
[2024-07-12] MEDS: Magnesium Oxide 400 MG TABLET PO (07:56)
[2024-07-12 10:07] VITALS: BP 106/59; PULSE 56; RESP 16; TEMP 37; O2SAT 100
[2024-07-12 14:35] VITALS: BP 140/69; PULSE 77; RESP 14; TEMP 36.4; O2SAT 100
--- NOTE | 2024-07-12 16:30 | PC.NURSE ---
pts son reports he is unable to bring patient home
[2024-07-12 18:55] VITALS: BP 123/85; PULSE 67; RESP 16; TEMP 36.9; O2SAT 97
== END 2024-07-12 17:56 | disposition home or self-care (01) ==
PROVIDERS: Emergency Provider Internal Medicine; PCP Internal Medicine
DX: F25.0 Schizoaffective disorder, bipolar type (principal); F03.90 Unspecified dementia, unspecified severity, without behavioral disturbance, psychotic disturbance, mood disturbance, and anxiety; F41.9 Anxiety disorder, unspecified; R07.89 Other chest pain; I10 Essential (primary) hypertension; Z79.899 Other long term (current) drug therapy
CPT/HCPCS: 36415; 80053; 80307; 81001; 84484; 85025; 93005; 99285; S9485

== ENCOUNTER → 2024-07-11 19:06 | Outpatient (BNV) | payer MEDICARE, SELFPAY | PROVIDERS: Emergency Provider Internal Medicine; PCP Internal Medicine; Visit Provider Internal Medicine | DX: R94.31 Abnormal electrocardiogram [ECG] [EKG] (principal); R07.9 Chest pain, unspecified | CPT/HCPCS: 93010 ==

== ENCOUNTER 2024-07-14 19:09 | Emergency (ER) | payer MEDICARE, SELFPAY ==
[2024-07-14 19:14] VITALS: BP 168/73; PULSE 78; RESP 16; TEMP 36.4; O2SAT 95; BMI 23.9
--- NOTE | 2024-07-14 19:29 | ED.PSYCH ---
HPI - Psych General Chief Complaint: Psychiatric Symptoms Stated Complaint: mental eval, hx depression , anxiety Time Seen by Provider: 07/14/24 19:22 Source: patient, EMS and old records reviewed Mode of arrival: EMS Limitations: no limitations History of Present Illness ED Provider: ROHAN GUZMÁN Narrative: 79 yo female with PMH of HTN, CAD, schizoaffective disorder, dementia here with c/o reported statements of anxiety and depression with passive SI to a friend. She denies all of this and states she is fine, she take hattie medications and does not need to be here. She has no medical complaints. MD complaint: feels depressed Onset (ago): year(s) Duration: intermittent History of same: Yes Relieving factors: none Exacerbating factors: other Associated psychiatric symptoms: none Associated symptoms: denies other symptoms Treatments prior to arrival: none Related Data Home Medications ?Medication ?Instructions ?Recorded ?Confirmed ezetimibe 10 mg tablet 10 mg PO DAILY 06/20/24 07/14/24 Previous Rx's ?Medication ?Instructions ?Recorded aspirin 81 mg tablet,delayed 81 mg PO DAILY #30 tabs 01/11/24 release cholecalciferol (vitamin D3) 25 25 mcg PO DAILY #30 tabs 01/11/24 mcg (1,000 unit) tablet furosemide 40 mg tablet 40 mg PO DAILY 30 days #30 tabs 01/11/24 lisinopril 10 mg tablet 10 mg PO BID 30 days #60 tabs 01/11/24 magnesium oxide 400 mg (241.3 mg 400 mg PO DAILY #30 tabs 01/11/24 magnesium) tablet multivitamin (Daily-Brielle tablet) 1 tab PO DAILY #30 tabs 01/11/24 potassium chloride 10 mEq 10 meq PO DAILY 30 days #30 caps 01/11/24 capsule,extended release amlodipine 5 mg tablet 5 mg PO DAILY #30 tabs 06/29/24 brexpiprazole 0.5 mg tablet 0.5 mg PO DAILY #30 tabs 06/29/24 (Rexulti) carvedilol 6.25 mg tablet 6.25 mg PO BID #60 tabs 06/29/24 olanzapine 2.5 mg tablet 2.5 mg PO BEDTIME #30 tabs 06/29/24 Allergies Allergy/AdvReac Type Severity Reaction Status Date / Time nitrofurantoin Allergy Unknown Verified 07/14/24 19:20 [From Macrobid] haloperidol [From Haldol] AdvReac Numbness Verified 07/14/24 19:20 Review of Systems Review of Systems: Constitutional : No Fever, No Chills ENT/Mouth : No Ear Pain, No Nasal Congestion, No sore throat Eyes: No Eye Pain, No Swelling, No Redness Cardiovascular : No Chest Pain, No SOB Respiratory : No Cough, No Sputum, No Dyspnea Gastrointestinal : No Nausea, No Vomiting, No Diarrhea, No Hematochezia, No Melena Genitourinary : No Dysuria, No Urinary Frequency, No Hematuria Musculoskeletal : No Myalgias Skin : No Skin Lesions, No rash Neuro : No Weakness, No Numbness, No Paresthesias, No Dizziness, No Headache Psych : no Anxiety, no Depression, no SI/HI All other systems reviewed and are negative [facility] Past Medical History Attestation statement: The following information was validated with the patient. Source: old records reviewed Medical History Ischemic cardiomyopathy Essential hypertension Coronary artery disease Schizoaffective disorder, bipolar type Surgical History S/P CABG (coronary artery bypass graft) Social History Social History Household Members: None Household Members Other:: Pt reports she lives alone. Housing: Apartment Do you presently have visiting nurse or other home services: No Alcohol intake: never Patient Tobacco Use Status: Never used Tobacco Smoked in Last 30 Days: No e-Cigarette/Vaping Use: Never Used Use of substances other than those prescribed or required for medical reasons: No Advance Directives: Yes Advance Directives on File: Yes Advance Directives Date on File: 03/06/21 Do you have a plan to hurt others: No Plan service: No Sexual orientation: Straight/Heterosexual Physical Exam Vital Signs: Vital Signs: Last Vital Signs Temp 97.6 F 07/14/24 19:46 Pulse 78 07/14/24 19:46 Resp 16 07/14/24 19:46 BP 168/73 H 07/14/24 19:46 Pulse Ox 95 07/14/24 19:46 O2 Del Method Room Air 07/14/24 19:46 BMI result Body Mass Index 23.9 Appearance: Alert. Oriented X3. No acute distress. Eyes: Pupils equal, round and reactive to light. ENT: Pharynx normal. Neck: Normal inspection. Neck supple. CVS: Normal heart rate and rhythm. Pulses normal. Respiratory: No respiratory distress. Breath sounds normal. Abdomen: Soft and nontender. Skin: Skin warm and dry. Normal skin color. Normal skin turgor. Extremities: No lower extremity edema. No calf ttp Neuro: Oriented X 3. No motor deficit. No sensory deficit. CN2-12 intact Course Course Course Narrative: Time: 21:14 Date: 07/14/24 Provider: Jessica Parker DO Physician observation ended at 914pm. Patient has been cleared for discharge by the CARE team. Will follow up as an outpatient. Medical Decision Making Medical Decision Making [facility] Narrative: 79 yo female with PMH of HTN, CAD, schizoaffective disorder, dementia here with c/o making statements to a friend but she denies this. She has no SI/HI. Will obtain labs and CARE team consult Differential Diagnosis Differential Diagnoses: The differential diagnosis associated with the presentation includes depression, dementia Admission/Observation Consideration of admission/observation: Escalation of care including admission/observation considered physician observation started at 802pm pending CARE team Consult Healthcare Provider Management of the patient was discussed with: Behavioral Health Provider okay to go home Lab Data [facility] Lab Attestation statement: I reviewed the patient's lab results. 07/14/24 20:03 07/14/24 20:03 Labs: Lab Results 07/14/24 07/14/24 Range/Units 19:43 20:03 Sodium 133 L (135-145) mmol/L Potassium 3.6 (3.3-5.1) mmol/L Chloride 96 (96-108) mmol/L Carbon Dioxide 24 (22-29) mmol/L Anion Gap 17 (12-20) BUN 30 H (9-16) mg/dL Creatinine 0.93 (0.5-1.4) mg/dL Estim Creat Clear Calc 40.5 Estimated GFR 58 Random Glucose 125 H (60-115) mg/dL Calcium 10.0 (8.4-10.2) mg/dL Magnesium 1.9 (1.6-2.6) mg/dL Total Bilirubin 0.4 (0.0-1.0) mg/dL Direct Bilirubin 0.1 (0.0-0.5) mg/dL AST 25 (5-31) U/L ALT 19 (0-31) U/L Alkaline Phosphatase 100 (39-117) U/L Total Protein 7.8 (6.5-8.0) g/dL Albumin 4.5 (3.5-5.0) g/dL TSH 2.15 (0.32-4.0) uIU/mL Urine Color Yellow Urine Appearance Clear Urine pH 5.5 (5.0-9.0) Ur Specific [place] 1.015 (1.005-1.025) Urine Protein Negative (Neg-Trace) mg/dL Urine Glucose (UA) Negative (Negative) mg/dL Urine Ketones Negative (Negative) mg/dL Urine Blood Negative (Negative) Urine Nitrite Negative (Negative) Ur Leukocyte Esterase Negative (Negative) Urine Opiates Screen Not Detected (Not Detect) Ur Buprenorphine Scrn Not Detected (Not Detect) ng/mL Ur Oxycodone Screen Not Detected (Not Detect) ng/mL Urine Methadone Screen Not Detected (Not Detect) ng/mL Urine Fentanyl Screen Not Detected (Not Detect) Ur Barbiturates Screen Not Detected (Not Detect) Ur Phencyclidine Scrn Not Detected (Not Detect) Ur Amphetamines Screen Not Detected (Not Detect) U Benzodiazepines Scrn Not Detected (Not Detect) Urine Cocaine Screen Not Detected (Not Detect) U Marijuana (THC) Screen Not Detected (Not Detect) Ethyl Alcohol < 10 mg/dL Independent Historian Clinical information obtained from an independent historian. History obtained from or confirmed by: EMS External Record Review External record reviewed: Inpatient record and Outpatient record Discharge Plan Discharge Clinical Impression: Acute hyponatremia Depression Qualifiers: Depression Type: unspecified Qualified Code(s): F32.A - Depression, unspecified Patient Disposition: Home, Self-Care Instructions: Depression (ED), Hyponatremia (ED) Additional Instructions: sodium level mildly low repeat lab with your doctor on Wednesday return for any worsening symptoms or concerns. You were seen in our Emergency Department today for treatment of a behavioral health issue. It is important after your visit that you follow up with either your behavioral health provider or a primary care doctor within 7 days.? If you have trouble finding a therapist you can reach out to [address] [phone] The National Suicide and Crisis Lifeline can be reached 7 days a week 24 hours a day.? Call 988 to speak with someone.? Return for any worsening symptoms or concerns such as thoughts of self harm or harm to others. Please call 911 if you feel your mental health is worsening.? Prescriptions: No Action lisinopril 10 mg Tablet 10 mg PO BID 30 Days Qty: 60 0RF Protocol: Hold for SBP< HOLD for SBP < : 90 furosemide 40 mg Tablet 40 mg PO DAILY 30 Days Qty: 30 0RF Protocol: Hold for SBP< HOLD for SBP < : 90 multivitamin [Daily-Brielle] Tablet 1 tab PO DAILY Qty: 30 0RF potassium chloride 10 mEq Capsule, Extended Release 10 meq PO DAILY 30 Days Qty: 30 0RF aspirin 81 mg Tablet,Delayed Release (Dr/Ec) 81 mg PO DAILY Qty: 30 0RF magnesium oxide 400 mg (241.3 mg magnesium) Tablet 400 mg PO DAILY Qty: 30 0RF cholecalciferol (vitamin D3) 25 mcg (1,000 unit) Tablet 25 mcg PO DAILY Qty: 30 0RF ezetimibe 10 mg tablet 10 mg PO DAILY carvedilol 6.25 mg Tablet 6.25 mg PO BID Qty: 60 0RF Protocol: Hold for SBP/HR < HOLD for SBP < : 90 HOLD for HR < : 60 amlodipine 5 mg Tablet 5 mg PO DAILY Qty: 30 0RF Protocol: Hold for SBP< HOLD for SBP < : 90 Rexulti 0.5 mg tablet 0.5 mg PO DAILY Qty: 30 0RF olanzapine 2.5 mg tablet 2.5 mg PO BEDTIME Qty: 30 0RF Interventions: Coffee-Suicide Risk Severity Scale Last Done: 07/14/24 19:21 Print Language: [place]
--- OUTSIDE RECORDS SUMMARY | 2024-07-14 19:45 | XMS_ITS | Data Portability ---
Author Organization [place] - [facility], Allergy Address [address] [place] [id number] Care Team Providers Care Surgery Scheduler Name Role Phone CANDI GODOY Primary Care Provider [phone] Assessment Encounter Date Assessment Date Assessment LastModified by Organization Details LastModified Time 02/08/2024 02/08/2024 Patient presents for evaluation of ears. Cerumen successfully removed bilaterally, which patient tolerated well. Otologic exam otherwise unremarkable. Patient reported hearing returned to baseline thereafter and declined audiometric testing. Return in 3-6 months for cerumen removal. Avoid Q-tips. Avoid or protect against loud noise. Recommend annual audiometric testing, sooner with perceived change. Patient understands to call sooner with any issues that arise. [email or web address] Not available 02/08/2024 11:44:32 Plan of Treatment Reminders Order Date Submit Date Provider Last Modified By Organization Details Last Modified Time Details Appointments Establish ed 15 2024 10:30A M EDI FROST PA-C Not available Not available Not available Lab None recorded. Referral None recorded. Procedures None recorded. Surgeries None recorded. Imaging None recorded. Medication Orders None recorded. Patient TargetsNo targets recorded. Patient InstructionsNo instructions recorded. Reason for Referral None Reported. Problems Name Problem SNOMED Code Status Onset Date Resolution Date Notes Provider Name and Address Organization Details Recorded Time Impacted cerumen of bilateral ears 59151562351 72116 Active 2022 Impacted cerumen, bilateral ; Note: Date Diagnosed : 01/08/2023 1:09 PM (H61.23) Not Available [facility] 4 02:18:02 Respirato ry finding 718732643 Active 2021 Feeling of foreign body in throat; Note: Date Diagnosed : 04/28/2021 9:23 AM (R09.89) Not Available [facility] 4 02:16:37 Cardiovas cular finding 300450043 Active 2021 Feeling of foreign body in throat; Note: Date Diagnosed : 04/28/2021 9:23 AM (R09.89) Not Available [facility] 4 02:16:37 Pain in throat 139269581 Active 2016 Pain in throat; Note: Date Diagnosed : 09/09/2016 3:33 PM (R07.0) Not Available [facility] 4 02:16:45 Impacted cerumen in left ear 35905726997 55356 Active 2015 Impacted cerumen, left ear; Note: Date Diagnosed : 07/29/2015 1:11 PM (H61.22) Not Available [facility] 4 02:17:31 Acute myringiti s of left ear 38285646408 57283 Active 2022 Acute myringiti s, left ear; Note: Date Diagnosed : 06/10/2022 12:24 PM (H73.002) Not Available [facility] 4 02:16:45 Thyroidit is 93847654 Active 2016 Thyroidit is; Note: Date Diagnosed : 09/09/2016 3:33 PM (E06) Not Available [facility] 4 02:16:27 Posterior rhinorrhe a 29102958 Active 2015 Postnasal drip; Note: Date Diagnosed : 07/29/2015 1:20 PM (R09.82) Not Available [facility] 4 02:17:11 Problem Notes None recorded. Procedures Surgical History Date Name Laterality Status Provider Name and Address Organization Details Recorded Time 4 Cerumen removal without microscope bilat sol REINA PA-C [address] [place] [address],[address], [phone], [facility] - [facility] 02/08/2024 11:44:21 Imaging Results None recorded. Procedure Notes None recorded. Medical Equipment None Reported. Medications Name Sig Start Date Stop Date Status Note LastModified by Organization Details LastModified Time amoxicill in 500 mg capsule TAKE 1 CAPSULE BY MOUTH THREE TIMES A DAY TILL GONE active Not Available Not Available No t Available furosemid e 40 mg tablet TAKE 1 TABLET BY MOUTH EVERY DAY active Not Available Not Available No t Available potassium chloride ER 10 mEq capsule,e xtended release TAKE 1 CAPSULE BY MOUTH EVERY DAY active Not Available Not Available No t Available carvedilo l 6.25 mg tablet TAKE 1 TABLET BY MOUTH TWICE A DAY active Not Available Not Available No t Available carvedilo l 12.5 mg tablet 2021 active Medicati on ID: [id number] B rand Name: carvedil ol Send Method: E-Prescr ibed Sub s Allowed: subs OK Medic ationGen ericName : carvedil ol Not Available Not Available Not Available donepezil 5 mg tablet 2021 active Medicati on ID: [id number] B rand Name: donepezi l Send Method: E-Prescr ibed Sub s Allowed: subs OK Medic ationGen ericName : donepezi l Not Available Not Available Not Available Klor-Con 10 mEq tablet,ex tended release 04/28 completed Medicati on ID: [id number] D uration Value: 30 Brand Name: Klor-Con 10 Send Method: E-Prescr ibed Sub s Allowed: subs OK Medic ationGen ericName : Klor-Con 10 Not Available Not Available Not Available clindamyc in HCl 300 mg capsule TAKE 1 CAPSULE BY MOUTH FOUR TIMES A DAY active Not Available Not Available No t Available divalproe x 250 mg tablet,de layed release 04/28 completed Medicati on ID: [id number] D uration Value: 30 Brand Name: divalpro ex Send Method: E-Prescr ibed Sub s Allowed: subs OK Medic ationGen ericName : divalpro ex Not Available Not Available Not Available olanzapin e 5 mg tablet TAKE 1 TABLET BY MOUTH EVERYDAY AT BEDTIME active Not Available Not Available No t Available amlodipin e 5 mg tablet TAKE 1 TABLET BY MOUTH EVERY DAY active Not Available Not Available No t Available olanzapin e 2.5 mg tablet TAKE 1 TABLET BY MOUTH EVERYDAY AT BEDTIME active Not Available Not Available No t Available aspirin 81 mg tablet,de layed release TAKE 1 TABLET BY MOUTH EVERY DAY active Not Available Not Available No t Available amoxicill in 500 mg tablet Take 1 tablet by mouth twice a day 2022 active Medicati on ID: [id number] D uration Value: 7 Brand Name: amoxicil tiffanie Send Method: E-Prescr ibed Sub s Allowed: subs OK Medic ationGen ericName : amoxicil tiffanie Not Available Not Available Not Available magnesium oxide 400 mg (241.3 mg magnesium ) tablet TAKE 1 TABLET BY MOUTH EVERY DAY active Not Available Not Available No t Available pantopraz ole 40 mg tablet,de layed release 2021 active Medicati on ID: [id number] B rand Name: pantopra zole Sen d Method: E-Prescr ibed Sub s Allowed: subs OK Medic ationGen ericName : pantopra zole Not Available Not Available Not Available neomycin- polymyxin -dexameth 3.5 mg/mL-10, 000 unit/mL-0 .1% eye drops INSTILL 1 DROP INTO LEFT EYE 4 TIMES A DAY active Not Available Not Available No t Available clotrimaz ole-betam ethasone 1 %-0.05 % topical cream APPLY TO AFFECTED AREA TWICE A DAY active Not Available Not Available No t Available lisinopri l 10 mg tablet TAKE 1 TABLET BY MOUTH TWICE A DAY active Not Available Not Available No t Available losartan 25 mg tablet 2021 active Medicati on ID: [id number] B rand Name: losartan Send Method: E-Prescr ibed Sub s Allowed: subs OK Speci al Instruct ion: TAKE 1/2 TABLET BY MOUTH DAILY Me dication GenericN mini: losartan Not Available Not Available Not Available hydrochlo rothiazid e 25 mg tablet 04/28 completed Medicati on ID: [id number] D uration Value: 30 Brand Name: hydrochl orothiaz minesh Send Method: E-Prescr ibed Sub s Allowed: subs OK Medic ationGen ericName : hydrochl orothiaz minesh Not Available Not Available Not Available furosemid e 20 mg tablet 2021 active Medicati on ID: [id number] B rand Name: furosemi de Send Method: E-Prescr ibed Sub s Allowed: subs OK Medic ationGen ericName : furosemi de Not Available Not Available Not Available lisinopri l 40 mg tablet 04/28 completed Medicati on ID: [id number] D uration Value: 30 Brand Name: lisinopr il Send Method: E-Prescr ibed Sub s Allowed: subs OK Medic ationGen ericName : lisinopr il Not Available Not Available Not Available dicyclomi ne 10 mg capsule 04/28 completed Medicati on ID: [id number] D uration Value: 30 Brand Name: dicyclom ine Send Method: E-Prescr ibed Sub s Allowed: subs OK Medic ationGen ericName : dicyclom ine Not Available Not Available Not Available cholecalc iferol (vitamin D3) 25 mcg (1,000 unit) capsule TAKE 1 CAPSULE BY MOUTH EVERY DAY active Not Available Not Available No t Available Vitamin D3 25 mcg (1,000 unit) tablet TAKE 1 TABLET BY MOUTH DAILY active Not Available Not Available No t Available Ciprodex 0.3 %-0.1 % ear drops,elroy pension Instill 4 drop into left ear twice a day as directed 2022 active Medicati on ID: [id number] D uration Value: 14 Brand Name: Ciprodex Send Method: E-Prescr ibed Sub s Allowed: subs OK Speci al Instruct ion: 4 drops BID x 2 weeks to left ear Medi cationGe nericNam e: Ciprodex Not Available Not Available Not Available peg 3350-elec trolytes 236 gram-22.7 4 gram-6.74 gram-5.86 gram solution 04/28 completed Medicati on ID: [id number] D uration Value: 1 Brand Name: peg 3350-javid ctrolyte s Send Method: E-Prescr ibed Sub s Allowed: subs OK Medic ationGen ericName : peg 3350-javid ctrolyte s Not Available Not Available Not Available Daily-Vit e (with folic acid) 400 mcg tablet TAKE 1 TABLET BY MOUTH EVERY DAY active Not Available Not Available No t Available Vitals Date Recorded Body height Body mass index (BMI) Body weight Provider Name and Address Organization Details Last Updated DateTime 02/08/2024 157.48 cm 23.4 kg/m2 42110.82 g Kay Andrea MA - [facility] 02/08/2024 11:28:00 Social History None recorded. Functional Status None recorded. Mental Status None recorded. Family History Nothing Reported. Medical History No medical history recorded. Gynecological HistoryNo gynecological history recorded. Obstetrics History GPAL:G 0 P 0 0 0 0 Past Encounters Encounter ID Performer Location Encounter Start Date Encounter Closed Date Diagnosis/Indication Diagnosis SNOMED-CT Code Diagnosis ICD10 Code Diagnosis Note [id number] KOBI REINA PA-C [facility] [address] [phone] 02/08/2024 11:12:57 02/08/2024 11:34:03 Impacted cerumen of bilateral ears [id number] 206688 H61.23 Health Concerns Section Related Observation LastModified by Organization Detai ls LastModified Time None Recorded Concern Status LastModified by Organization Details LastModified Time None Recorded Advance Directives Directive None Recorded Payers Insurance Date Sequence Insurance Name Policy Number Policy Briggs Covered Member ID Briggs Member ID Guarantor Name 02/08/[address] [place] [address] [id number] Emily Stephenson [id number] Emily Stephenson Notes Date Note Type Note Provider Name and Address Organization Details Recorded Time 02/08/2024 text/html 78-year-old female presents for cerumen removal. She reports hearing is unchanged. She denies otalgia and otorrhea. DEIDRE CLARK MD [address] [place] [address], [phone], [facility] - [facility] 02/09/2024 09:40:08 OBGyn Episode No OBEpisode recorded.
[2024-07-14 19:46] VITALS: BP 168/73; PULSE 78; RESP 16; TEMP 36.4; O2SAT 95
--- NOTE | 2024-07-14 19:46 | PC.NURSE ---
PT ARRIVED TO THE ED [facility]IA [facility] AFTER REPORTING INCREASED ANXIETY AND DEPRESSION TO HER NEIGHBOR. PT APPEARS WELL GROOMED, NO ACUTE DISTRESS. 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 PT REPORTS PASSIVE SI, NO PLAN OR INTENT. DENIES AH/VH/HI. PT REPORTS MED COMPLIANCE. APPETITE IS FAIR. SLEEP IS FAIR. PT IS WATCHING TV COMFORTABLY IN THE [place].
[2024-07-14 19:58] LABS: Appearance Urine Clear; Color Urine Yellow; Glucose Urine UA Negative (Negative); Leukocyte Esterase Urine Negative (Negative); Nitrite Urine Negative (Negative); PH 5.5 (5.0-9.0); Specific Gravity - Urine 1.015 (1.005-1.025); Urine Blood Negative (Negative); Urine Ketones Negative (Negative); Urine Protein Negative (Neg-Trace)
[2024-07-14 20:08] LABS: Amphetamine Screen Urine Not Detected (Not Detect); Barbiturates, Urine Not Detected (Not Detect); Benzodiazepines Screen Urine Not Detected (Not Detect); Buprenorphine Scr Not Detected (Not Detect); Cannabinoid Screen Urine Not Detected (Not Detect); Cocaine Screen Urine Not Detected (Not Detect); Fentanyl, urine Not Detected (Not Detect); Methadone Screen, Urine Not Detected (Not Detect); Opiate Screen Urine Not Detected (Not Detect); Oxycodone Screen Urine Not Detected (Not Detect); Phencyclidine Screen Urine Not Detected (Not Detect)
[2024-07-14 20:28] LABS: Ethanol < 10 mg/dL
[2024-07-14 20:33] LABS: Alanine Aminotransferase 19 U/L (0-31); Albumin Level 4.5 g/dL (3.5-5.0); Alkaline Phosphatase 100 U/L (39-117); Anion Gap 17 (12-20); Aspartate Amino Transferase 25 U/L (5-31); Bilirubin Direct 0.1 mg/dL (0.0-0.5); Bilirubin Total 0.4 mg/dL (0.0-1.0); Blood Urea Nitrogen 30 mg/dL (9-16); Carbon Dioxide 24 mmol/L (22-29); Chloride 96 mmol/L (96-108); Creatinine Clr Calc Pharmacy 40.5; Estimated Glomerular Filt Rate 58; Glucose Random 125 mg/dL (60-115); Magnesium 1.9 mg/dL (1.6-2.6); Potassium 3.6 mmol/L (3.3-5.1); Sodium 133 mmol/L (135-145); Total Protein 7.8 g/dL (6.5-8.0)
[2024-07-14 20:43] LABS: TSH reflex Free T4 2.15 uIU/mL (0.32-4.0)
[2024-07-14 21:20] VITALS: BP 132/84; PULSE 81; RESP 16; TEMP 36.4; O2SAT 98
== END 2024-07-15 00:06 | disposition home or self-care (01) ==
PROVIDERS: Emergency Provider Emergency Medicine
DX: F32.A Depression, unspecified (principal); E87.1 Hypo-osmolality and hyponatremia; F41.9 Anxiety disorder, unspecified; F25.0 Schizoaffective disorder, bipolar type; I10 Essential (primary) hypertension; Z79.899 Other long term (current) drug therapy; Z79.82 Long term (current) use of aspirin
CPT/HCPCS: 36415; 80053; 80076; 80307; 81003; 82248; 83735; 84443; 99284; 99285; S9485

== ENCOUNTER 2024-07-17 12:19 | Inpatient (IN) | payer MEDICARE, SELFPAY ==
[2024-07-17] VITALS (7 sets, daily range): BP systolic 108–151; BP diastolic 48–82; PULSE 67–91; RESP 15–18; TEMP 36.2–36.9; O2SAT 97–100; BMI 20.6
--- NOTE | 2024-07-17 12:43 | ED_ITS ---
HPI - General Adult General Chief complaint: Altered Mental Status Stated complaint: DEPRESSED,ANXIOUS,CONFUSED,NON MED COMPL PER EMS Time Seen by Provider: 07/17/24 12:42 Source: patient, EMS, RN notes reviewed and old records reviewed Mode of arrival: EMS History of Present Illness ED Provider: Mirza HPI narrative: Patient is a 79-year-old female with history of schizoaffective disorder, bipolar type, dementia, coronary artery disease, hypertension, ischemic cardiomyopathy presenting to the emergency department from home complaining of confusion which she attributes to olanzapine. States that she stopped taking the olanzapine several weeks ago but still feels confused. When asked to specify she states that she has talking to people about events and they are stating she never told them about such events. States she has been taking all of her other medications as prescribed. Reported passive SI to nursing, denies suicidal or homicidal ideation, auditory or visual hallucinations. Denies any current pain or other physical complaints. Denies any drug or alcohol use. Patient states that she lives home alone, does not have any VNA services. MD complaint: confusion Onset (ago): week(s) Related Data Previous Rx's ?Medication ?Instructions ?Recorded aspirin 81 mg tablet,delayed 81 mg PO DAILY #30 tabs 01/11/24 release cholecalciferol (vitamin D3) 25 25 mcg PO DAILY #30 tabs 01/11/24 mcg (1,000 unit) tablet furosemide 40 mg tablet 40 mg PO DAILY 30 days #30 tabs 01/11/24 lisinopril 10 mg tablet 10 mg PO BID 30 days #60 tabs 01/11/24 magnesium oxide 400 mg (241.3 mg 400 mg PO DAILY #30 tabs 01/11/24 magnesium) tablet multivitamin (Daily-Brielle tablet) 1 tab PO DAILY #30 tabs 01/11/24 potassium chloride 10 mEq 10 meq PO DAILY 30 days #30 caps 01/11/24 capsule,extended release amlodipine 5 mg tablet 5 mg PO DAILY #30 tabs 06/29/24 carvedilol 6.25 mg tablet 6.25 mg PO BID #60 tabs 06/29/24 olanzapine 2.5 mg tablet 2.5 mg PO BEDTIME #30 tabs 06/29/24 Allergies Allergy/AdvReac Type Severity Reaction Status Date / Time nitrofurantoin Allergy Unknown Verified 07/17/24 12:27 [From Macrobid] haloperidol [From Haldol] AdvReac Numbness Verified 07/17/24 12:27 Review of Systems 2 Review of Systems: As per HPI Yes all other systems are reviewed and are negative Constitutional: Constitutional: Reports as per HPI [facility] Past Medical History Medical History Ischemic cardiomyopathy Essential hypertension Coronary artery disease Schizoaffective disorder, bipolar type Surgical History S/P CABG (coronary artery bypass graft) Social History Social History Household Members: None Household Members Other:: Pt reports she lives alone. Housing: Apartment Do you presently have visiting nurse or other home services: No Alcohol intake: never Patient Tobacco Use Status: Never used Tobacco Smoked in Last 30 Days: No e-Cigarette/Vaping Use: Never Used Use of substances other than those prescribed or required for medical reasons: No Advance Directives: Yes Advance Directives on File: Yes Advance Directives Date on File: 03/06/21 Do you have a plan to hurt others: No Plan service: No Sexual orientation: Straight/Heterosexual Physical Exam ED Vital Signs: Vital Signs - 24 hr 07/19/24 10:34 07/19/24 20:30 07/19/24 20:31 Temperature 97.1 F Pulse Rate 73 80 Respiratory Rate 14 Blood Pressure 133/68 137/70 137/70 Pulse Oximetry 98 Oxygen Delivery Method Room Air 07/20/24 05:48 07/20/24 08:38 07/20/24 08:41 Temperature 97.8 F 97.9 F Pulse Rate 68 81 Respiratory Rate 16 16 Blood Pressure 141/81 H 107/62 107/62 Pulse Oximetry 97 100 Oxygen Delivery Method Room Air Room Air BMI result Body Mass Index 20.6 Vital signs have been reviewed and appear to be correct. Blood pressure normal. Heart rate normal. Respiratory rate normal. Temperature normal. Oxygen saturation normal. Const General: healthy appearing, no acute distress, alert and awake Orientation/consciousness: oriented to person, oriented to place, oriented to time and patient oriented x3 Limitations: no limitations HENMT Head: Yes normocephalic and Yes atraumatic Ears: external ears normal General nose exam: Normal external nose present Face and sinus: Yes face symmetric Mouth: oropharynx normal and moist mucous membranes Throat: Yes uvula midline Eyes Pupils: Equal, round and reactive pupils present Neck Neck: Yes normal visual inspection and Yes supple Resp Effort & Inspection: normal respiratory effort and able to speak in complete sentences Auscultation: clear to auscultation bilaterally Cardio Rate: regular rate Rhythm: regular rhythm Heart sounds: S1 normal heart sound present and S2 normal heart sound present GI Palpation (GI): Soft to palpation and nontender Auscultation: normoactive bowel sounds General: Yes no CVA tenderness Back/Spine/Pelvis Back: no CVA tenderness Skin General skin exam: elasticity normal and turgor normal Neuro General: oriented to person, oriented to place, oriented to time, patient oriented x3, moves all extremities, no focal motor deficits and CN's II-XI intact bilaterally Cranial nerves: Yes Equal, round and reactive pupils present Cognition (Neuro): normal cognition Extrem General: Yes full ROM, Yes no pedal edema and Yes no calf tenderness Psych Mental Status: mental status grossly normal Affect: normal affect Thought process: Normal thought process present Course Reevaluation(s) Reevaluation #1: Notified by Quintin instrument technician apprentice, that patient is now reporting SI with plan to overdose on her medications. Patient already under constant observation. Time: 15:16 Reevaluation #2: CARE team recommending psych eval to determine capacity as this is patient's fourth visit in the past 30 days. Time: 17:06 Reevaluation #3: Time: 09:29 Date: 07/18/24 Provider: Wiliam Mcdermott MD Patient in physician observation for psychiatric evaluation.? No acute events reported overnight. No current complaints. VS stable.? pending CARE team evaluation. Will continue to monitor. 12:14 PM pt is inpatient level of care Time: 09:30 Additional Reevaluation(s): Time: 08:12 Date: 07/19/24 Provider: Wiliam Mcdermott MD Patient in physician observation for psychiatric evaluation.? No acute events reported overnight. No current complaints. VS stable.? Patient is in bed search status/pending CARE team evaluation. Will continue to monitor. July 20 09:18 Dr. Mcdermott No clinical changes remained stable bed search continue Medications Administered Generic Name Dose Route Start Last Admin Trade Name Freq PRN Reason Stop Dose Admin Amlodipine Besylate 5 mg 07/18/24 09:00 07/20/24 08:35 Amlodipine Besylate 5 Mg Tablet PO 5 mg DAILY JOHNATHAN Administration Protocol Aspirin 81 mg 07/18/24 09:00 07/20/24 08:35 Aspirin Enteric Coated 81 Mg Tablet.Dr PO 81 mg DAILY JOHNATHAN Administration Brexpiprazole 0.5 mg 07/18/24 09:00 07/20/24 08:35 Brexpiprazole 1 Mg Tablet PO 0.5 mg DAILY JOHNATHAN Administration Carvedilol 6.25 mg 07/17/24 23:45 07/20/24 08:35 Carvedilol 6.25 Mg Tablet PO 6.25 mg BID JOHNATHAN Administration Protocol Ezetimibe 10 mg 07/18/24 09:00 07/20/24 08:35 Ezetimibe 10 Mg Tablet PO 10 mg DAILY JOHNATHAN Administration Furosemide 40 mg 07/18/24 09:00 07/20/24 08:39 Furosemide 40 Mg Tablet PO Not Given DAILY JOHNATHAN Protocol Lisinopril 10 mg 07/17/24 23:45 07/20/24 08:38 Lisinopril 10 Mg Tablet PO Not Given BID JOHNATHAN Protocol Magnesium Oxide 400 mg 07/18/24 09:00 07/20/24 08:35 Magnesium Oxide 400 Mg Tablet PO 400 mg DAILY JOHNATHAN Administration Multivitamins/Vitamin C 1 tab 07/18/24 09:00 07/20/24 08:34 Multivitamin Tablet PO 1 tab DAILY JOHNATHAN Administration Olanzapine 2.5 mg 07/17/24 23:45 07/19/24 20:30 Olanzapine 2.5 Mg Tablet PO 2.5 mg BEDTIME JOHNATHAN Administration Potassium Chloride 10 meq 07/18/24 09:00 07/20/24 08:35 Potassium Chloride Er 10 Meq Tablet.Er PO 10 meq DAILY JOHNATHAN Administration Vitamin D 25 mcg 07/18/24 09:00 07/20/24 08:35 Cholecalciferol (Vitamin D3) 25 Mcg Tablet PO 25 mcg DAILY JOHNATHAN Administration Discontinued Medications Generic Name Dose Route Start Last Admin Trade Name Seb PRN Reason Stop Dose Admin Olanzapine 2.5 mg 07/19/24 11:20 07/19/24 11:53 Olanzapine 2.5 Mg Tablet PO 07/19/24 11:21 2.5 mg ONCE ONE Administration Medical Decision Making Medical Decision Making MDM Narrative: Patient is a 79-year-old female with history of schizoaffective disorder, bipolar type, dementia, coronary artery disease, hypertension, ischemic cardiomyopathy presenting to the emergency department from home complaining of confusion which she attributes to olanzapine. On exam patient is awake, A+Ox3, VS WNL, afebrile, normal neurological exam without focal deficits, physical exam findings as above. Given reported symptoms and physical exam findings, initial differential includes but is not limited to medication noncompliance, anxiety, depression, suicidal ideation. Labs unremarkable. No evidence of infection on urinalysis. Urine drug screen and ethanol negative. Patient cleared medically for care team evaluation and placed on physician observation at this time. Differential Diagnosis Differential Diagnoses: The differential diagnosis associated with the presentation includes As per [facility] Admission/Observation Consideration of admission/observation: Escalation of care including admission/observation considered Patient would have been admitted to the hospital had their work up had any findings where hospital admission was appropriate and their clinical presentation warranted hospital admission. Consult Healthcare Provider Management of the patient was discussed with: Behavioral Health Provider Lab Data [facility] Lab Attestation statement: I reviewed the patient's lab results. as per [facility] 07/17/24 13:41 07/17/24 13:41 Labs: Lab Results 07/17/24 07/17/24 Range/Units 13:41 14:07 WBC 10.1 (4.8-10.8) X10*3/uL RBC 4.68 (4.20-5.50) X10*6/uL Hgb 14.7 (12.0-16.0) g/dl Hct 41.8 (37.0-47.0) % MCV 89.3 (80.0-98.0) fL MCH 31.4 (27.0-33.0) pg MCHC 35.2 H (31.0-35.0) g/dl RDW 11.9 (11.0-16.0) % Plt Count 338 (160-400) X10*3/uL MPV 9.2 L (9.4-12.3) fL Immature Gran % (Auto) 0.5 H (0.0-0.4) % Neut % (Auto) 68.3 (45-73) % Lymph % (Auto) 21.0 (20-40) % [place] % (Auto) 9.4 (2-11) % Eos % (Auto) 0.3 (0-4) % Baso % (Auto) 0.5 (0-2) % Lymph # (Auto) 2.1 (1.2-4.9) X10*3/uL [place] # (Auto) 1.0 (0.1-1.2) X10*3/uL Eos # (Auto) 0.0 (0.0-0.4) X10*3/uL Baso # (Auto) 0.1 (0.0-0.2) X10*3/uL Abs Immat Gran (auto) 0.05 H (0.00-0.03) X10*3/uL Absolute Neuts (auto) 6.9 (2.0-8.3) x10*3/uL Absolute Nucleated RBC 0.000 (0.0-0.012) X10*3/uL Nucleated RBC % (auto) 0.0 (0.0-0.2) /100WBC Sodium 138 (135-145) mmol/L Potassium 3.5 (3.3-5.1) mmol/L Chloride 102 (96-108) mmol/L Carbon Dioxide 23 (22-29) mmol/L Anion Gap 17 (12-20) BUN 19 H (9-16) mg/dL Creatinine 0.67 (0.5-1.4) mg/dL Estim Creat Clear Calc 53.8 Estimated GFR > 60 Random Glucose 96 (60-115) mg/dL Calcium 10.9 H D (8.4-10.2) mg/dL Total Bilirubin 0.7 (0.0-1.0) mg/dL AST 25 (5-31) U/L ALT 19 (0-31) U/L Alkaline Phosphatase 90 (39-117) U/L Troponin I High Sens 11.5 (<3.5-17.0) ng/L Total Protein 7.6 (6.5-8.0) g/dL Albumin 4.5 (3.5-5.0) g/dL Urine Color Yellow Urine Appearance Clear Urine pH >= 9.0 (5.0-9.0) Ur Specific [place] 1.010 (1.005-1.025) Urine Protein Negative (Neg-Trace) mg/dL Urine Glucose (UA) Negative (Negative) mg/dL Urine Ketones Negative (Negative) mg/dL Urine Blood Negative (Negative) Urine Nitrite Negative (Negative) Ur Leukocyte Esterase Negative (Negative) Urine Opiates Screen Not Detected (Not Detect) Ur Buprenorphine Scrn Not Detected (Not Detect) ng/mL Ur Oxycodone Screen Not Detected (Not Detect) ng/mL Urine Methadone Screen Not Detected (Not Detect) ng/mL Urine Fentanyl Screen Not Detected (Not Detect) Ur Barbiturates Screen Not Detected (Not Detect) Ur Phencyclidine Scrn Not Detected (Not Detect) Ur Amphetamines Screen Not Detected (Not Detect) U Benzodiazepines Scrn Not Detected (Not Detect) Urine Cocaine Screen Not Detected (Not Detect) U Marijuana (THC) Screen Not Detected (Not Detect) Ethyl Alcohol < 10 mg/dL Influenza Type A (PCR) NEGATIVE (Negative) Influenza Type B (PCR) NEGATIVE (Negative) RSV RNA Qual (PCR) NEGATIVE (Negative) SARS-CoV-2 RNA (RT-PCR) NEGATIVE (Negative) External Record Review External record reviewed: Inpatient record, Office record and Outpatient record Discharge Plan Discharge Clinical Impression: Dementia, Schizoaffective disorder, bipolar type Prescriptions: No Action lisinopril 10 mg Tablet 10 mg PO BID 30 Days Qty: 60 0RF Protocol: Hold for SBP< HOLD for SBP < : 90 furosemide 40 mg Tablet 40 mg PO DAILY 30 Days Qty: 30 0RF Protocol: Hold for SBP< HOLD for SBP < : 90 multivitamin [Daily-Brielle] Tablet 1 tab PO DAILY Qty: 30 0RF potassium chloride 10 mEq Capsule, Extended Release 10 meq PO DAILY 30 Days Qty: 30 0RF aspirin 81 mg Tablet,Delayed Release (Dr/Ec) 81 mg PO DAILY Qty: 30 0RF magnesium oxide 400 mg (241.3 mg magnesium) Tablet 400 mg PO DAILY Qty: 30 0RF cholecalciferol (vitamin D3) 25 mcg (1,000 unit) Tablet 25 mcg PO DAILY Qty: 30 0RF carvedilol 6.25 mg Tablet 6.25 mg PO BID Qty: 60 0RF Protocol: Hold for SBP/HR < HOLD for SBP < : 90 HOLD for HR < : 60 amlodipine 5 mg Tablet 5 mg PO DAILY Qty: 30 0RF Protocol: Hold for SBP< HOLD for SBP < : 90 olanzapine 2.5 mg tablet 2.5 mg PO BEDTIME Qty: 30 0RF Print Language: Macedonian
--- OUTSIDE RECORDS SUMMARY | 2024-07-17 13:19 | XMS_ITS | Data Portability ---
Author Organization [place] - [facility], Allergy Address [address] [place] [id number] Care Team Providers Care Show Jumping Instructor Name Role Phone CANDI GODOY Primary Care Provider [phone] Assessment Encounter Date Assessment Date Assessment LastModified [...] Recorded Time Impacted cerumen of bilateral ears [id number] 80590 Active 2022 Impacted cerumen, bilateral ; Note: Date Diagnosed : 01/08/2023 1:09 PM (H61.23) Not Available [facility] 4 02:18:02 Respirato ry finding 659250147 Active 2021 Feeling of foreign body in throat; Note: Date Diagnosed : 04/28/2021 9:23 AM (R09.89) Not Available [facility] 4 02:16:37 Cardiovas cular finding 793441239 Active 2021 Feeling of foreign body in throat; Note: Date Diagnosed : 04/28/2021 9:23 AM (R09.89) Not Available [facility] 4 02:16:37 Pain in throat 386455008 Active 2016 Pain in throat; Note: Date Diagnosed : 09/09/2016 3:33 PM (R07.0) Not Available [facility] 4 02:16:45 Impacted cerumen in left ear 55513358004 41295 Active 2015 Impacted cerumen, left ear; Note: Date Diagnosed : 07/29/2015 1:11 PM (H61.22) Not Available [facility] 4 02:17:31 Acute myringiti s of left ear 85262347180 46206 Active 2022 Acute myringiti s, left ear; Note: Date Diagnosed : 06/10/2022 12:24 PM (H73.002) Not Available [facility] 4 02:16:45 Thyroidit is 82402403 Active 2016 Thyroidit is; Note: Date Diagnosed : 09/09/2016 3:33 PM (E06) Not Available [facility] 4 02:16:27 Posterior rhinorrhe a 57424597 Active 2015 Postnasal drip; Note: Date Diagnosed : 07/29/2015 1:20 PM (R09.82) Not Available [facility] 4 02:17:11 Problem Notes None recorded. Procedures Surgical History Date Name Laterality Status Provider Name and Address Organization Details Recorded Time 4 Cerumen removal without microscope bilat sol REINA PA-C [address] [place] [address],[address], [phone], [facility] - [facility] 02/08/2024 11:44:21 Imaging Results None recorded. Procedure [...] mg tablet 2021 active Medicati on ID: [id number] B rand Name: carvedil ol Send Method: E-Prescr ibed Sub s Allowed: subs OK Medic ationGen ericName : carvedil ol Not Available Not Available Not Available donepezil 5 mg tablet 2021 active Medicati on ID: [id number] B rand Name: donepezi l Send Method: E-Prescr ibed Sub s Allowed: subs OK Medic ationGen ericName : donepezi l Not Available Not Available Not Available Klor-Con 10 mEq tablet,ex tended release 04/28 completed Medicati on ID: [id number] D uration Value: 30 Brand Name: Klor-Con [...] layed release 04/28 completed Medicati on ID: [id number] D uration Value: 30 Brand Name: divalpro [...] a day 2022 active Medicati on ID: [id number] D uration Value: 7 Brand Name: amoxicil [...] layed release 2021 active Medicati on ID: [id number] B rand Name: pantopra zole Sen d [...] mg tablet 2021 active Medicati on ID: [id number] B rand Name: losartan Send Method: E-Prescr ibed Sub s Allowed: subs OK Speci al Instruct ion: TAKE 1/2 TABLET BY MOUTH DAILY Me dication GenericN mini: losartan Not Available Not Available Not Available hydrochlo rothiazid e 25 mg tablet 04/28 completed Medicati on ID: [id number] D uration Value: 30 Brand Name: hydrochl orothiaz minesh Send Method: E-Prescr ibed Sub s Allowed: subs OK Medic ationGen ericName : hydrochl orothiaz minesh Not Available Not Available Not Available furosemid e 20 mg tablet 2021 active Medicati on ID: [id number] B rand Name: furosemi de Send Method: E-Prescr ibed Sub s Allowed: subs OK Medic ationGen ericName : furosemi de Not Available Not Available Not Available lisinopri l 40 mg tablet 04/28 completed Medicati on ID: [id number] D uration Value: 30 Brand Name: lisinopr il Send Method: E-Prescr ibed Sub s Allowed: subs OK Medic ationGen ericName : lisinopr il Not Available Not Available Not Available dicyclomi ne 10 mg capsule 04/28 completed Medicati on ID: [id number] D uration Value: 30 Brand Name: dicyclom [...] as directed 2022 active Medicati on ID: [id number] D uration Value: 14 Brand Name: Ciprodex Send Method: E-Prescr ibed Sub s Allowed: subs OK Speci al Instruct ion: 4 drops BID x 2 weeks to left ear Medi cationGe nericNam e: Ciprodex Not Available Not Available Not Available peg 3350-elec trolytes 236 gram-22.7 4 gram-6.74 gram-5.86 gram solution 04/28 completed Medicati on ID: [id number] D uration Value: 1 Brand Name: peg [...] Updated DateTime 02/08/2024 157.48 cm 23.4 kg/m2 98035.82 g Kay Andrea MA - [facility] 02/08/2024 11:28:00 Social History None recorded. Functional Status None recorded. Mental Status None recorded. Family History Nothing Reported. Medical History No medical history recorded. Gynecological HistoryNo gynecological history recorded. Obstetrics History GPAL:G 0 P 0 0 0 0 Past Encounters Encounter ID Performer Location Encounter Start Date Encounter Closed Date Diagnosis/Indication Diagnosis SNOMED-CT Code Diagnosis ICD10 Code Diagnosis Note [id number] KOBI REINA PA-C [facility] [address] [phone] 02/08/2024 11:12:57 02/08/2024 11:34:03 Impacted cerumen of bilateral ears [id number] 909577 H61.23 Health Concerns Section Related Observation LastModified by Organization Detai ls LastModified Time None Recorded Concern Status LastModified by Organization Details LastModified Time None Recorded Advance Directives Directive None Recorded Payers Insurance Date Sequence Insurance Name Policy Number Policy Briggs Covered Member ID Briggs Member ID Guarantor Name 02/08/[address] [place] [address] [id number] 01 Emily Stephenson [id number] Emily Stephenson Notes Date Note Type Note Provider Name and Address Organization Details Recorded Time 02/08/2024 text/html 78-year-old female presents for cerumen removal. She reports hearing is unchanged. She denies otalgia and otorrhea. DEIDRE CLARK MD [address] [place] [address], [phone], [facility] - [facility] 02/09/2024 09:40:08 OBGyn Episode No OBEpisode recorded.
[2024-07-17 13:45] LABS: MANUAL DIFF FLAG NO
[2024-07-17 13:49] LABS: Basophils Absolute Auto 0.1 X10*3/uL (0.0-0.2); Basophils Percent Auto 0.5 % (0-2); Eosinophils Percent Auto 0.3 % (0-4); Hematocrit 41.8 % (37.0-47.0); Hemoglobin 14.7 g/dl (12.0-16.0); Imm Gran Abs Auto 0.05 X10*3/uL (0.00-0.03); Imm Gran Pct Auto 0.5 % (0.0-0.4); Lymphocytes Absolute Auto 2.1 X10*3/uL (1.2-4.9); Mean Corpuscular HGB Conc 35.2 g/dl (31.0-35.0); Mean Corpuscular Hemoglobin 31.4 pg (27.0-33.0); Mean Corpuscular Volume 89.3 fL (80.0-98.0); Mean Platelet Volume 9.2 fL (9.4-12.3); Monocytes Percent Auto 9.4 % (2-11); Neutrophils Absolute Auto 6.9 x10*3/uL (2.0-8.3); Neutrophils Percent Auto 68.3 % (45-73); Platelet Count 338 X10*3/uL (160-400); Red Blood Count 4.68 X10*6/uL (4.20-5.50); Red Cell Distribution Width 11.9 % (11.0-16.0); White Blood Count 10.1 X10*3/uL (4.8-10.8)
--- NOTE | 2024-07-17 13:49 | PC.NURSE ---
Informed Nancie provider of pt. statement feeling thoughts of SI. While tech and primary RN were in room.
[2024-07-17 14:04] LABS: Alanine Aminotransferase 19 U/L (0-31); Albumin Level 4.5 g/dL (3.5-5.0); Anion Gap 17 (12-20); Aspartate Amino Transferase 25 U/L (5-31); Bilirubin Total 0.7 mg/dL (0.0-1.0); Blood Urea Nitrogen 19 mg/dL (9-16); Calcium 10.9 mg/dL (8.4-10.2); Carbon Dioxide 23 mmol/L (22-29); Chloride 102 mmol/L (96-108); Creatinine Clr Calc Pharmacy 53.8; Estimated Glomerular Filt Rate > 60; Ethanol < 10 mg/dL; Glucose Random 96 mg/dL (60-115); Potassium 3.5 mmol/L (3.3-5.1); Sodium 138 mmol/L (135-145); Total Protein 7.6 g/dL (6.5-8.0)
[2024-07-17 14:13] LABS: Alkaline Phosphatase 90 U/L (39-117)
[2024-07-17 14:21] LABS: Appearance Urine Clear; Color Urine Yellow; Glucose Urine UA Negative (Negative); Leukocyte Esterase Urine Negative (Negative); Nitrite Urine Negative (Negative); PH >= 9.0 (5.0-9.0); Urine Blood Negative (Negative); Urine Ketones Negative (Negative); Urine Protein Negative (Neg-Trace)
[2024-07-17 14:24] LABS: Troponin-I High Sensitivity 11.5 ng/L (<3.5-17.0)
[2024-07-17 14:29] LABS: Influenza A PCR NEGATIVE (Negative); Influenza B PCR NEGATIVE (Negative); Resp Syncy Virus RNA Qual PCR NEGATIVE (Negative); SARS COV2 PCR INHOUSE NEGATIVE (Negative)
[2024-07-17 14:32] LABS: Amphetamine Screen Urine Not Detected (Not Detect); Barbiturates, Urine Not Detected (Not Detect); Benzodiazepines Screen Urine Not Detected (Not Detect); Buprenorphine Scr Not Detected (Not Detect); Cannabinoid Screen Urine Not Detected (Not Detect); Cocaine Screen Urine Not Detected (Not Detect); Fentanyl, urine Not Detected (Not Detect); Methadone Screen, Urine Not Detected (Not Detect); Opiate Screen Urine Not Detected (Not Detect); Oxycodone Screen Urine Not Detected (Not Detect); Phencyclidine Screen Urine Not Detected (Not Detect)
--- NOTE | 2024-07-17 22:46 | PC.NURSE ---
Report given to IVET Humphrey. Report received from IVET Humphrey.
--- NOTE | 2024-07-17 23:22 | PC.NURSE ---
This RN assumed pt care @ 2300. Pt pacing around the unit. Pt requesting night meds. Pt stating Im not supposed to be here Plan of care ongoing.
[2024-07-18] VITALS (10 sets, daily range): BP systolic 101–115; BP diastolic 52–70; PULSE 60–72; RESP 14–16; TEMP 36.6–36.9; O2SAT 99–100
--- NOTE | 2024-07-18 | ECG_ITS ---
Test Reason : check prolonged qt Blood Pressure : */* mmHG Vent. Rate : 64 BPM Atrial Rate : 64 BPM P-R Int : 154 ms QRS Dur : 100 ms QT Int : 454 ms P-R-T Axes : 63 48 65 degrees QTcB Int : 468 ms Normal sinus rhythm Possible Left atrial enlargement Left ventricular hypertrophy ( Sokolow-Mcintosh , [place] product ) Septal infarct (cited on or before 28-Jun-2024) Abnormal ECG When compared with ECG of 11-Jul-2024 19:06, No significant change was found Referred By: Carie James Electronically Signed By: RADHA SALAZAR MD
--- NOTE | 2024-07-18 | PC.NURSE ---
Pt repeatedly coming to nurses station stating but who said I needed to come up here This RN advised pt will remain on this unit. Plan of care ongoing.
[2024-07-18] MEDS: OLANZapine 2.5 MG TABLET PO ×2 (00:24→20:22)
--- NOTE | 2024-07-18 00:45 | PC.NURSE ---
Carvedilol and Lisinopril held d/t pts b/p. Plan of care ongoing.
--- NOTE | 2024-07-18 00:46 | PC.NURSE ---
Pt medicated per may Pt in room resting Plan of care ongoing
[2024-07-18] MEDS: lisinopriL 10 MG TABLET PO ×2 (08:04→20:21)
[2024-07-18] MEDS: Cholecalciferol (Vitamin D3) 25 MCG TABLET PO (08:05)
[2024-07-18] MEDS: Aspirin Enteric Coated 81 MG TABLET.DR PO (08:05)
[2024-07-18] MEDS: amLODIPine Besylate 5 MG TABLET PO (08:05)
[2024-07-18] MEDS: Multivitamin TABLET 1 TAB PO (08:30)
[2024-07-18] MEDS: Ezetimibe 10 MG TABLET PO (08:30)
[2024-07-18] MEDS: Furosemide 40 MG TABLET PO (08:30)
[2024-07-18] MEDS: Magnesium Oxide 400 MG TABLET PO (08:30)
[2024-07-18] MEDS: carvediloL 6.25 MG TABLET PO ×2 (08:30→20:22)
[2024-07-18] MEDS: Potassium Chloride ER 10 MEQ TABLET.ER PO (08:31)
--- NOTE | 2024-07-18 11:39 | PC.NURSE ---
Patient refusing am meds due to unknown effects with taking medication with zyprexa
--- NOTE | 2024-07-18 11:44 | PC.NURSE ---
Patient up sitting at table in common area, calm and cooperative, care team updated staff that patient is a section 12 nedsearch at this time
--- NOTE | 2024-07-18 12:43 | PHA.MEDREC ---
Addendum entered by Reji Zabala 07/18/24 12:54: reviewed Original Note: Pharmacy Consult ? Medication Reconciliation Pharmacy reviewed medication reconciliation done by nursing. Patient confirmed she is no longer taking the Rexulti or Ezetmibe; I updated the med rec according to what the patient confirmed with me.
[2024-07-19] VITALS (7 sets, daily range): BP systolic 128–137; BP diastolic 68–72; PULSE 67–80; RESP 14–16; TEMP 36.2–36.4; O2SAT 98
[2024-07-19] MEDS: Aspirin Enteric Coated 81 MG TABLET.DR PO (07:43)
[2024-07-19] MEDS: Cholecalciferol (Vitamin D3) 25 MCG TABLET PO (07:43)
[2024-07-19] MEDS: lisinopriL 10 MG TABLET PO ×2 (07:43→20:31)
[2024-07-19] MEDS: amLODIPine Besylate 5 MG TABLET PO (07:44)
[2024-07-19] MEDS: carvediloL 6.25 MG TABLET PO ×2 (07:45→20:30)
[2024-07-19] MEDS: Multivitamin TABLET 1 TAB PO (07:45)
[2024-07-19] MEDS: Furosemide 40 MG TABLET PO (07:45)
[2024-07-19] MEDS: Ezetimibe 10 MG TABLET PO (07:45)
[2024-07-19] MEDS: Potassium Chloride ER 10 MEQ TABLET.ER PO (07:45)
[2024-07-19] MEDS: Magnesium Oxide 400 MG TABLET PO (07:45)
[2024-07-19] MEDS: Brexpiprazole 1 MG TABLET 0.5 MG PO (08:17)
--- NOTE | 2024-07-19 10:45 | PC.NURSE ---
pt currently in room laying down, ate breakfast and medicated as ordered, pt was reluctant to take her rexulti and asked what it was for and then held the pill for a while but eventually took it. met with CARE team
[2024-07-19] MEDS: OLANZapine 2.5 MG TABLET PO ×2 (11:53→20:30)
--- NOTE | 2024-07-19 12:32 | PC.NURSE ---
pt c/o anxiety feels like my heart is pounding hr regular and 70 bpm, skin wpd, medicated with zyprexa at pt request, now laying in bed
--- NOTE | 2024-07-19 16:00 | PC.NURSE ---
Patient appears to be sleeping, respirations even and unlabored, no apparent distress at this time. Continue plan of care for IPLOC
[2024-07-20 05:48] VITALS: BP 141/81; PULSE 68; RESP 16; TEMP 36.6; O2SAT 97
--- NOTE | 2024-07-20 06:24 | PC.NURSE ---
Patient slept through the night, no distress observed/reported, 15 minutes safety check, no behavior and safety concerns, disposition per care team is section 12 inpatient bed search, will continue to monitor
--- NOTE | 2024-07-20 07:36 | PC.NURSE ---
Assumed care of patient at 0645, patient appears to be in no apparent distress this am, calm and cooperative, offering no complaints to this RN at this time. Continue plan of care for IPLOC
--- NOTE | 2024-07-20 08:11 | MHC.EDTECH ---
This tech provided patient with toiletries/change of clothes/towels for shower.
[2024-07-20] MEDS: Multivitamin TABLET 1 TAB PO (08:34)
[2024-07-20] MEDS: Aspirin Enteric Coated 81 MG TABLET.DR PO (08:35)
[2024-07-20] MEDS: amLODIPine Besylate 5 MG TABLET PO (08:35)
[2024-07-20] MEDS: Brexpiprazole 1 MG TABLET 0.5 MG PO (08:35)
[2024-07-20] MEDS: Cholecalciferol (Vitamin D3) 25 MCG TABLET PO (08:35)
[2024-07-20] MEDS: Potassium Chloride ER 10 MEQ TABLET.ER PO (08:35)
[2024-07-20] MEDS: carvediloL 6.25 MG TABLET PO ×2 (08:35→20:56)
[2024-07-20] MEDS: Ezetimibe 10 MG TABLET PO (08:35)
[2024-07-20] MEDS: Magnesium Oxide 400 MG TABLET PO (08:35)
[2024-07-20 08:38] VITALS: BP 107/62
--- NOTE | 2024-07-20 08:40 | PC.NURSE ---
Pt's blood pressure decreased this am, holding Furosemide and Lisinopril
[2024-07-20 08:41] VITALS: BP 107/62; PULSE 81; RESP 16; TEMP 36.6; O2SAT 100
[2024-07-20 15:32] VITALS: BP 136/66; PULSE 77; RESP 14; TEMP 36.6; O2SAT 99
--- NOTE | 2024-07-20 19:19 | PC.NURSE ---
staff arrived on unit to bring client to inpatient unit however atg that time orders were not in place for her to move, when orders were put in just now, called unit to alert them.
[2024-07-20 19:45] VITALS: BP 145/78; PULSE 85; RESP 16; TEMP 36.4; O2SAT 98
[2024-07-20] MEDS: OLANZapine 2.5 MG TABLET PO (20:55)
[2024-07-20] MEDS: lisinopriL 10 MG TABLET PO (20:55)
[2024-07-20 21:24] VITALS: BMI 21.8
--- NOTE | 2024-07-21 01:40 | PC.ADMIT ---
Emily is a 79-year-old white [place] female with history of schizoaffective disorder, bipolar type, and dementia admitted to [facility] on a CV. She is A/O x 3, independent with ADL', continent of B/B, steady gait with no reported history of falls. PMH include HTN, CAD, and Ischemic cardiomyopathy. She presented to the ER from home with C/O confusion which she attributed to Zyprexa so she stopped taking it. Medication non-adherence x 2 weeks resulted in exacerbation of symptoms AEB report of anxiety, paranoia and depression, she denied SI/AVH. Skin/contraband assessment completed by 2 staff, no issues noted. Unit tour given, snack provided, placed on 5 min ULB.
[2024-07-21 08:00] VITALS: BP 130/66; PULSE 71; RESP 16; TEMP 36.7; O2SAT 94
[2024-07-21 08:44] LABS: Alanine Aminotransferase 18 U/L (0-31); Albumin Level 3.7 g/dL (3.5-5.0); Alkaline Phosphatase 73 U/L (39-117); Anion Gap 14 (12-20); Aspartate Amino Transferase 21 U/L (5-31); Bilirubin Total 0.5 mg/dL (0.0-1.0); Blood Urea Nitrogen 28 mg/dL (9-16); Calcium 9.7 mg/dL (8.4-10.2); Carbon Dioxide 24 mmol/L (22-29); Chloride 105 mmol/L (96-108); Cholesterol 179 mg/dL (<200); Creatinine Clr Calc Pharmacy 51.5; Estimated Glomerular Filt Rate > 60; Glucose Random 91 mg/dL (60-115); HDL Cholesterol 44 mg/dL (>40); LDL Cholesterol Calculated 94 mg/dL (<100); Potassium 3.7 mmol/L (3.3-5.1); Sodium 139 mmol/L (135-145); Total Protein 6.3 g/dL (6.5-8.0); Triglycerides 205 mg/dL (<150)
[2024-07-21 08:45] LABS: Estimated Average Glucose 117 mg/dL; Hemoglobin A1C 123.3876 umol/L; Hemoglobin A1c % 5.7 % (<6.0); Total Hemoglobin (HGBA1C) 3169.3497 umol/L
[2024-07-21] MEDS: amLODIPine Besylate 5 MG TABLET PO (08:56)
[2024-07-21] MEDS: Aspirin Enteric Coated 81 MG TABLET.DR PO (08:56)
[2024-07-21] MEDS: Ezetimibe 10 MG TABLET PO (08:57)
[2024-07-21] MEDS: Magnesium Oxide 400 MG TABLET PO (08:57)
[2024-07-21] MEDS: carvediloL 6.25 MG TABLET PO ×2 (08:58→20:23)
[2024-07-21] MEDS: Cholecalciferol (Vitamin D3) 25 MCG TABLET PO (08:59)
[2024-07-21] MEDS: Furosemide 40 MG TABLET PO (08:59)
[2024-07-21] MEDS: Potassium Chloride ER 10 MEQ TABLET.ER PO (08:59)
[2024-07-21] MEDS: lisinopriL 10 MG TABLET PO ×2 (09:00→20:22)
[2024-07-21] MEDS: Multivitamin TABLET 1 TAB PO (09:08)
--- NOTE | 2024-07-21 14:50 | P.HPPS_ITS ---
HPI Date of Service: 07/21/24 Chief Complaint: psychosis/noncompliance Sources of Information: patient interviewed, chart reviewed and crisis/core team assessment reviewed HPI Subjective Notes: Pathak Warning and Conditional Voluntary Medical Problems Affecting Mental Status: No Narrative: The patient is a 79-year-old female history of schizoaffective disorder bipolar type admitted over the past couple of years repeatedly for noncompliance with antipsychotic medication. When off medication becomes increasingly paranoid fearful difficulty with judgment anxiety persecutory thoughts. She was discharged few weeks ago was post start Rexulti can not or will not give a clear history looks like did not start Rexulti stating she could not afford it. Patient vague whether she was taking olanzapine since discharge. She is living in her own apartment generally independent has had down would drift regarding her life and functioning over the past 1-2 years. She does does see a nurse practitioner over the phone [place] for psychiatric care Past Psychiatric History: Inpt: at least 5 admission to [facility] 01/11/2024; 02/25/2022; 11/21/2021; 09/17/2021; [facility] past 2 months for somatic sx IPLOC at [facility], in 2009. Remote hx of [place]PLOC at [facility] [place]. Previous SI attempt in 2010 Therapist Zena Maldonado, Psych provider: Yamileth Dalal NP Past medication trials: olanzapine, haldol (EPS), depakote, risperidone (EPS) Medical Evaluation Reviewed: Yes [facility] Medical History (Updated 07/21/24 @ 16:43 by Emilio Estrada MD) Ischemic cardiomyopathy Essential hypertension Coronary artery disease Schizoaffective disorder, bipolar type Surgical History S/P CABG (coronary artery bypass graft) Family History: Raised by parents, 1 brother, 1 sister. Siblings local. Mother : Alzheimers dementia. Father : Question of psychosis. Brother: Question of psychosis. Sister: Question of dementia. Social History: , lives by self in correction apartment. Has 1 son, has grand children. Trauma History: Unknown. Diagnostics Vital Signs (24Hr): Vital Signs - 24 hr 07/20/24 15:32 07/20/24 19:45 07/21/24 08:00 Temperature 97.8 F 97.6 F 98.1 F Pulse Rate 77 85 71 Respiratory Rate 14 16 16 Blood Pressure 136/66 145/78 H 130/66 Pulse Oximetry 99 98 94 Oxygen Delivery Method Room Air Room Air Room Air BMI result Body Mass Index 21.8 Labs 07/17/24 13:41 07/21/24 07:20 Labs: Laboratory Results - last 48 hr 07/21/24 07:20 Sodium 139 Potassium 3.7 Chloride 105 Carbon Dioxide 24 Anion Gap 14 BUN 28 H Creatinine 0.70 Estim Creat Clear Calc 51.5 Estimated GFR > 60 Random Glucose 91 Estimat Average Glucose 117 Hemoglobin A1c % 5.7 Calcium 9.7 D Total Bilirubin 0.5 AST 21 ALT 18 Alkaline Phosphatase 73 Total Protein 6.3 L Albumin 3.7 Triglycerides 205 H Cholesterol 179 LDL Cholesterol, Calc 94 HDL Cholesterol 44 Meds/Allergies Allergies Allergies Allergy/AdvReac Type Severity Reaction Status Date / Time nitrofurantoin Allergy Unknown Verified 07/17/24 12:27 [From Macrobid] haloperidol [From Haldol] AdvReac Numbness Verified 07/17/24 12:27 Mental Status Exam Mental Status Exam Narrative: Appearance: wearing hospital gown, anxious looking Behavior: guarded, ambivalent, superficially cooperative Psychomotor: some retardation Speech: delayed response, minimally spontaneous TP: poverty of thought, thought blocking TC: some suspiciousness ,guarded, could not really explain whether she was or was not taking her medication as prescribed and that she could not afford her medication could not really describe why she had called an ambulance Would not elaborate symptoms prior to admission Mood: Anxious Affect: constricted SI: denies but reported recently HI: denies VH/AH: appears internally preoccupied but denies Delusions: suspiciousness about other talking about her suspicious regarding this aligner typewriter ointment was asking her these questions Insight/judgment: impaired x 2 Memory/cog:alert, oriented to place, month, year not so much situation. Assessment & Plan Assessment & Plan (1) Schizoaffective disorder, bipolar type: Status: Acute Code(s): F25.0 - Schizoaffective disorder, bipolar type Plan Patient readmitted with psychotic symptoms restart olanzapine 2.5 mg at bedtime continue at present Rexulti 0.5 mg daily patient unable tolerate higher doses of olanzapine reportedly and has had side effects on Risperdal. Unclear if has been tried on Abilify patient states she is unable to afford the Rexulti. She is currently denying active suicidal thoughts. Appears patient has been having cognitive issues she does have vascular disease would most likely benefit from VNA supervision or other supervision through [facility] Patient educated on: diagnosis and medication risk/benefits Informed Consent: further education needed Reason for continued inpatient stay Substantial Risk for: harm to self, inability to function and rapid decompensation Statement Statement: I have reviewed the history and physical and performed a pertinent examination on my patient. No changes have occurred unless specified. If the History and Physical was not performed prior to admission, the Hospitalist's service will be consulted for completing the admission physical. Time Spent With Patient Time: Total time managing care of this patient today ____ minutes.
[2024-07-21 20:00] VITALS: BP 130/60; PULSE 67; RESP 18; TEMP 37.2; O2SAT 97
[2024-07-21 20:22] VITALS: BP 130/60
[2024-07-21 20:23] VITALS: BP 130/60; PULSE 67
[2024-07-21] MEDS: OLANZapine 2.5 MG TABLET PO (20:24)
[2024-07-21] MEDS: hydrOXYzine HCL 25 MG TABLET PO (20:28)
--- NOTE | 2024-07-22 07:42 | P.PNPSI_ITS ---
Subjective Subjective Date of Service: 07/22/24 Reason For Visit: psychosis/noncompliance Subjective Notes: Conditional Voluntary Interim History: met with patient. Discussed with Nursing. Perseverative regarding medications. With news writer anxious, perseverative when discussing med regimen. Isolative. Feels sometimes that people are talking about her. Is suspicious. Sleep okay. Reports wanting help with anxiety , mood and worrying about people to speaking about her and reluctantly agreed to increase nighttime olanzapine to 5 mg, rather than 2.5 mg twice daily. Medication Compliance: Yes Side effects from medications: No Attending Groups: Intermittent Review of Systems Acute medical concerns: No Review of Systems Review of Systems nothing acute Mental Status Exam Mental Status Exam Narrative: Appearance: wearing hospital gown, anxious looking Behavior: guarded, ambivalent, superficially cooperative Psychomotor: some retardation Speech: delayed response, minimally spontaneous TP: poverty of thought, thought blocking TC: some suspiciousness ,guarded Mood: Anxious Affect: constricted SI: denies but reported recently HI: denies VH/AH: appears internally preoccupied but denies Delusions: suspiciousness about other talking about her Insight/judgment: impaired x 2 Memory/cog:alert, oriented to place, month, year not so much situation. Diagnostics Vital Signs (24Hr): Vital Signs - 24 hr 07/21/24 08:00 07/21/24 20:00 07/21/24 20:22 Temperature 98.1 F 98.9 F Pulse Rate 71 67 Respiratory Rate 16 18 Blood Pressure 130/66 130/60 130/60 Pulse Oximetry 94 97 Oxygen Delivery Method Room Air Room Air 07/21/24 20:23 Temperature Pulse Rate 67 Respiratory Rate Blood Pressure 130/60 Pulse Oximetry Oxygen Delivery Method BMI result Body Mass Index 21.8 Labs 07/17/24 13:41 07/21/24 07:20 Labs: Laboratory Results - last 48 hr 07/21/24 07:20 Sodium 139 Potassium 3.7 Chloride 105 Carbon Dioxide 24 Anion Gap 14 BUN 28 H Creatinine 0.70 Estim Creat Clear Calc 51.5 Estimated GFR > 60 Random Glucose 91 Estimat Average Glucose 117 Hemoglobin A1c % 5.7 Calcium 9.7 D Total Bilirubin 0.5 AST 21 ALT 18 Alkaline Phosphatase 73 Total Protein 6.3 L Albumin 3.7 Triglycerides 205 H Cholesterol 179 LDL Cholesterol, Calc 94 HDL Cholesterol 44 Medications Medications Current Medications Acetaminophen (Acetaminophen 325 Mg Tablet) 650 mg PO Q6H PRN PRN Reason: Headache/Pain, Scale 1-10 Al Hydroxide/Mg Hydroxide (Magnesium Hydrox/Alum Hydrox 30 Ml Oral.Susp) 30 ml PO Q6H PRN PRN Reason: Heartburn/Nausea Amlodipine Besylate (Amlodipine Besylate 5 Mg Tablet) 5 mg PO DAILY [facility]; Protocol Last Admin: 07/21/24 08:56 Dose: 5 mg Aspirin (Aspirin Enteric Coated 81 Mg Tablet.Dr) 81 mg PO DAILY [facility] Last Admin: 07/21/24 08:56 Dose: 81 mg Brexpiprazole (Brexpiprazole 1 Mg Tablet) 0.5 mg PO DAILY [facility] Last Admin: 07/21/24 09:13 Dose: Not Given Carvedilol (Carvedilol 6.25 Mg Tablet) 6.25 mg PO BID [facility]; Protocol Last Admin: 07/21/24 20:23 Dose: 6.25 mg Ezetimibe (Ezetimibe 10 Mg Tablet) 10 mg PO DAILY [facility] Last Admin: 07/21/24 08:57 Dose: 10 mg Furosemide (Furosemide 40 Mg Tablet) 40 mg PO DAILY [facility]; Protocol Last Admin: 07/21/24 08:59 Dose: 40 mg Hydroxyzine HCl (Hydroxyzine Hcl 25 Mg Tablet) 25 mg PO Q6H PRN PRN Reason: mild anxiety Last Admin: 07/21/24 20:28 Dose: 25 mg Lisinopril (Lisinopril 10 Mg Tablet) 10 mg PO BID [facility]; Protocol Last Admin: 07/21/24 20:22 Dose: 10 mg Magnesium Hydroxide (Milk Of Magnesia 30 Ml Oral.Susp) 30 ml PO DAILY PRN PRN Reason: Constipation Magnesium Oxide (Magnesium Oxide 400 Mg Tablet) 400 mg PO DAILY [facility] Last Admin: 07/21/24 08:57 Dose: 400 mg Multivitamins/Vitamin C (Multivitamin Tablet) 1 tab PO DAILY [facility] Last Admin: 07/21/24 09:08 Dose: 1 tab Olanzapine (Olanzapine 2.5 Mg Tablet) 2.5 mg PO BEDTIME [facility] Last Admin: 07/21/24 20:24 Dose: 2.5 mg Potassium Chloride (Potassium Chloride Er 10 Meq Tablet.Er) 10 meq PO DAILY [facility] Last Admin: 07/21/24 08:59 Dose: 10 meq Trazodone HCl (Trazodone Hcl 50 Mg Tablet) 50 mg PO BEDTIME MRX1 PRN PRN Reason: Insomnia Vitamin D (Cholecalciferol (Vitamin D3) 25 Mcg Tablet) 25 mcg PO DAILY [facility] Last Admin: 07/21/24 08:59 Dose: 25 mcg Allergies Allergies Allergy/AdvReac Type Severity Reaction Status Date / Time nitrofurantoin Allergy Unknown Verified 07/17/24 12:27 [From Macrobid] haloperidol [From Haldol] AdvReac Numbness Verified 07/17/24 12:27 Assessment & Plan Assessment & Plan (1) Schizoaffective disorder, bipolar type: Status: Acute Code(s): F25.0 - Schizoaffective disorder, bipolar type Plan Patient readmitted with psychotic symptoms restart olanzapine 2.5 mg at bedtime continue at present Rexulti 0.5 mg daily patient unable tolerate higher doses of olanzapine reportedly and has had side effects on Risperdal. Unclear if has been tried on Abilify patient states she is unable to afford the Rexulti. She is currently denying active suicidal thoughts. Appears patient has been having cognitive issues she does have vascular disease would most likely benefit from VNA supervision or other supervision through [facility] 07/22/2024: Reports wanting help with anxiety , mood and worrying about people to speaking about her and reluctantly agreed to increase nighttime olanzapine to 5 mg, rather than 2.5 mg twice daily. Reason for continued inpatient stay Substantial Risk for: inability to function Time Spent With Patient Time: Total time managing care of this patient today ____ minutes.
[2024-07-22 08:00] VITALS: BP 108/57; PULSE 70; RESP 18; TEMP 36.1; O2SAT 95
[2024-07-22] MEDS: Multivitamin TABLET 1 TAB PO (08:17)
[2024-07-22] MEDS: Aspirin Enteric Coated 81 MG TABLET.DR PO (08:17)
[2024-07-22] MEDS: Magnesium Oxide 400 MG TABLET PO (08:18)
[2024-07-22] MEDS: lisinopriL 10 MG TABLET PO ×2 (08:18→21:01)
[2024-07-22] MEDS: Cholecalciferol (Vitamin D3) 25 MCG TABLET PO (08:18)
[2024-07-22] MEDS: Ezetimibe 10 MG TABLET PO (08:18)
[2024-07-22] MEDS: Potassium Chloride ER 10 MEQ TABLET.ER PO (08:18)
[2024-07-22] MEDS: amLODIPine Besylate 5 MG TABLET PO (08:18)
[2024-07-22] MEDS: Furosemide 40 MG TABLET PO (08:18)
[2024-07-22] MEDS: carvediloL 6.25 MG TABLET PO ×2 (08:18→21:02)
--- NOTE | 2024-07-22 09:22 | PC.NURSE ---
Emily declined Rexulti despite encouragement and education. Dr. Mederos notified.
[2024-07-22 20:00] VITALS: BP 115/58; PULSE 66; RESP 16; TEMP 36.3; O2SAT 98
[2024-07-22 21:01] VITALS: BP 115/58
[2024-07-22 21:02] VITALS: BP 115/58; PULSE 66
[2024-07-22] MEDS: OLANZapine 5 MG TABLET PO (21:02)
[2024-07-23 08:00] VITALS: BP 129/61; PULSE 73; RESP 16; TEMP 36; O2SAT 96
[2024-07-23 09:17] VITALS: BP 129/61
[2024-07-23] MEDS: lisinopriL 10 MG TABLET PO ×2 (09:17→21:14)
[2024-07-23] MEDS: Brexpiprazole 1 MG TABLET 0.5 MG PO (09:17)
[2024-07-23 09:18] VITALS: BP 129/61; PULSE 73
[2024-07-23] MEDS: Potassium Chloride ER 10 MEQ TABLET.ER PO (09:18)
[2024-07-23] MEDS: Aspirin Enteric Coated 81 MG TABLET.DR PO (09:18)
[2024-07-23] MEDS: Cholecalciferol (Vitamin D3) 25 MCG TABLET PO (09:18)
[2024-07-23] MEDS: Multivitamin TABLET 1 TAB PO (09:18)
[2024-07-23] MEDS: Ezetimibe 10 MG TABLET PO (09:18)
[2024-07-23] MEDS: Magnesium Oxide 400 MG TABLET PO (09:18)
[2024-07-23] MEDS: carvediloL 6.25 MG TABLET PO ×2 (09:18→21:14)
[2024-07-23] MEDS: amLODIPine Besylate 5 MG TABLET PO (09:18)
[2024-07-23 09:19] VITALS: BP 129/61
[2024-07-23] MEDS: Furosemide 40 MG TABLET PO (09:19)
--- NOTE | 2024-07-23 16:24 | P.PNPSI_ITS ---
Subjective Subjective Date of Service: 07/23/24 Reason For Visit: psychosis/noncompliance Subjective Notes: Conditional Voluntary Interim History: Main concern is distress at being back in the hospital. admits she was not taking meds at home. Basically feels she doesn't need them. Eating and sleeping OK. Isolative Medication Compliance: Yes Side effects from medications: No Attending Groups: Intermittent Review of Systems Acute medical concerns: No Medical Review of Systems: unchanged Mental Status Exam Mental Status Exam Patient Appearance: Well Grooomed Patient Orientation: Person, Place, Time and Situation Level of Consciousness: Alert Patient Behavior: Appropriate and Isolative Mood Description: Withdrawn Affect Description: Depressed Patient Cognition Impaired: No Ability to Follow Directions: Good Speech Pattern: Clear Memory Description: Intact Hallucinations: None Delusions: Paranoid Ideation Thought Process: Intact Thought Content: positive for Evasive Judgement: Fair Diagnostics Vital Signs (24Hr): Vital Signs - 24 hr 07/22/24 20:00 07/22/24 21:01 07/22/24 21:02 Temperature 97.4 F Pulse Rate 66 66 Respiratory Rate 16 Blood Pressure 115/58 L 115/58 L 115/58 L Pulse Oximetry 98 Oxygen Delivery Method Room Air 07/23/24 08:00 07/23/24 09:17 07/23/24 09:18 Temperature 96.8 F Pulse Rate 73 Respiratory Rate 16 Blood Pressure 129/61 129/61 129/61 Pulse Oximetry 96 Oxygen Delivery Method Room Air 07/23/24 09:18 07/23/24 09:19 Temperature Pulse Rate 73 Respiratory Rate Blood Pressure 129/61 129/61 Pulse Oximetry Oxygen Delivery Method BMI result Body Mass Index 21.8 Labs 07/17/24 13:41 07/21/24 07:20 Medications Medications Current Medications Acetaminophen (Acetaminophen 325 Mg Tablet) 650 mg PO Q6H PRN PRN Reason: Headache/Pain, Scale 1-10 Al Hydroxide/Mg Hydroxide (Magnesium Hydrox/Alum Hydrox 30 Ml Oral.Susp) 30 ml PO Q6H PRN PRN Reason: Heartburn/Nausea Amlodipine Besylate (Amlodipine Besylate 5 Mg Tablet) 5 mg PO DAILY [facility]; Protocol Last Admin: 07/23/24 09:18 Dose: 5 mg Aspirin (Aspirin Enteric Coated 81 Mg Tablet.Dr) 81 mg PO DAILY [facility] Last Admin: 07/23/24 09:18 Dose: 81 mg Brexpiprazole (Brexpiprazole 1 Mg Tablet) 0.5 mg PO DAILY [facility] Last Admin: 07/23/24 09:17 Dose: 0.5 mg Carvedilol (Carvedilol 6.25 Mg Tablet) 6.25 mg PO BID [facility]; Protocol Last Admin: 07/23/24 09:18 Dose: 6.25 mg Ezetimibe (Ezetimibe 10 Mg Tablet) 10 mg PO DAILY [facility] Last Admin: 07/23/24 09:18 Dose: 10 mg Furosemide (Furosemide 40 Mg Tablet) 40 mg PO DAILY [facility]; Protocol Last Admin: 07/23/24 09:19 Dose: 40 mg Hydroxyzine HCl (Hydroxyzine Hcl 25 Mg Tablet) 25 mg PO Q6H PRN PRN Reason: mild anxiety Last Admin: 07/21/24 20:28 Dose: 25 mg Lisinopril (Lisinopril 10 Mg Tablet) 10 mg PO BID [facility]; Protocol Last Admin: 07/23/24 09:17 Dose: 10 mg Magnesium Hydroxide (Milk Of Magnesia 30 Ml Oral.Susp) 30 ml PO DAILY PRN PRN Reason: Constipation Magnesium Oxide (Magnesium Oxide 400 Mg Tablet) 400 mg PO DAILY [facility] Last Admin: 07/23/24 09:18 Dose: 400 mg Multivitamins/Vitamin C (Multivitamin Tablet) 1 tab PO DAILY [facility] Last Admin: 07/23/24 09:18 Dose: 1 tab Olanzapine (Olanzapine 5 Mg Tablet) 5 mg PO BEDTIME [facility] Last Admin: 07/22/24 21:02 Dose: 5 mg Potassium Chloride (Potassium Chloride Er 10 Meq Tablet.Er) 10 meq PO DAILY [facility] Last Admin: 07/23/24 09:18 Dose: 10 meq Trazodone HCl (Trazodone Hcl 50 Mg Tablet) 50 mg PO BEDTIME MRX1 PRN PRN Reason: Insomnia Vitamin D (Cholecalciferol (Vitamin D3) 25 Mcg Tablet) 25 mcg PO DAILY [facility] Last Admin: 07/23/24 09:18 Dose: 25 mcg Allergies Allergies Allergy/AdvReac Type Severity Reaction Status Date / Time nitrofurantoin Allergy Unknown Verified 07/17/24 12:27 [From Macrobid] haloperidol [From Haldol] AdvReac Numbness Verified 07/17/24 12:27 Assessment & Plan Assessment & Plan (1) Schizoaffective disorder, bipolar type: Status: Acute Code(s): F25.0 - Schizoaffective disorder, bipolar type Plan Patient readmitted with psychotic symptoms restart olanzapine 2.5 mg at bedtime continue at present Rexulti 0.5 mg daily patient unable tolerate higher doses of olanzapine reportedly and has had side effects on Risperdal. Unclear if has been tried on Abilify patient states she is unable to afford the Rexulti. She is currently denying active suicidal thoughts. Appears patient has been having cognitive issues she does have vascular disease would most likely benefit from VNA supervision or other supervision through [facility] 07/22/2024: Reports wanting help with anxiety , mood and worrying about people to speaking about her and reluctantly agreed to increase nighttime olanzapine to 5 mg, rather than 2.5 mg twice daily 07/23/24: no med changes Reason for continued inpatient stay Substantial Risk for: rapid decompensation Time Spent With Patient Time: Total time managing care of this patient today ____ minutes.
[2024-07-23 20:00] VITALS: BP 134/62; PULSE 70; RESP 18; TEMP 36.2; O2SAT 96
[2024-07-23] MEDS: OLANZapine 5 MG TABLET PO (21:14)
[2024-07-24 08:00] VITALS: BP 113/55; PULSE 71; RESP 16; TEMP 36.5; O2SAT 97
--- NOTE | 2024-07-24 08:33 | P.PNPSI_ITS ---
Subjective Subjective Date of Service: 07/24/24 Reason For Visit: psychosis/noncompliance Subjective Notes: Conditional Voluntary Interim History: Pt denies any concerns prior to coming to the hospital. She reports not taking medications and worried about side effects. She denies SI/HI. She has been restarted on rexulti and olanzapine. We discussed considering SCOTT as she usually stops antipsychotic which leads to her being admitted back to the unit. She is very ambivalent, reports not knowing what to do. explained I will check with insurance to see if it covers abilify including SCOTT formulation first. Mental Status Exam Mental Status Exam Narrative: Appearance: casually groomed, good hygiene, in NAD Behavior: guarded, ambivalent, superficially cooperative Psychomotor: some retardation Speech: clear, normal rate/rhythm/spontaneous TP:repetitive and ambivalent TC: some suspiciousness, not sure why she would be brought to the hospital nor why would others be concerned about her. Mood: okay Affect: constricted SI: denies HI: denies VH/AH: appears internally preoccupied but denies Delusions: worried about side effects of medications. Insight/judgment: impaired x 2 Memory/cog:alert, oriented x 4. Diagnostics Vital Signs (24Hr): Vital Signs - 24 hr 07/23/24 09:17 07/23/24 09:18 07/23/24 09:18 Temperature Pulse Rate 73 Respiratory Rate Blood Pressure 129/61 129/61 129/61 Pulse Oximetry Oxygen Delivery Method 07/23/24 09:19 07/23/24 20:00 Temperature 97.1 F Pulse Rate 70 Respiratory Rate 18 Blood Pressure 129/61 134/62 Pulse Oximetry 96 Oxygen Delivery Method Room Air BMI result Body Mass Index 21.8 Labs 07/17/24 13:41 07/21/24 07:20 Medications Medications Current Medications Acetaminophen (Acetaminophen 325 Mg Tablet) 650 mg PO Q6H PRN PRN Reason: Headache/Pain, Scale 1-10 Al Hydroxide/Mg Hydroxide (Magnesium Hydrox/Alum Hydrox 30 Ml Oral.Susp) 30 ml PO Q6H PRN PRN Reason: Heartburn/Nausea Amlodipine Besylate (Amlodipine Besylate 5 Mg Tablet) 5 mg PO DAILY [facility]; Protocol Last Admin: 07/23/24 09:18 Dose: 5 mg Aspirin (Aspirin Enteric Coated 81 Mg Tablet.) 81 mg PO DAILY [facility] Last Admin: 07/23/24 09:18 Dose: 81 mg Brexpiprazole (Brexpiprazole 1 Mg Tablet) 0.5 mg PO DAILY [facility] Last Admin: 07/23/24 09:17 Dose: 0.5 mg Carvedilol (Carvedilol 6.25 Mg Tablet) 6.25 mg PO BID [facility]; Protocol Last Admin: 07/23/24 21:14 Dose: 6.25 mg Ezetimibe (Ezetimibe 10 Mg Tablet) 10 mg PO DAILY [facility] Last Admin: 07/23/24 09:18 Dose: 10 mg Furosemide (Furosemide 40 Mg Tablet) 40 mg PO DAILY [facility]; Protocol Last Admin: 07/23/24 09:19 Dose: 40 mg Hydroxyzine HCl (Hydroxyzine Hcl 25 Mg Tablet) 25 mg PO Q6H PRN PRN Reason: mild anxiety Last Admin: 07/21/24 20:28 Dose: 25 mg Lisinopril (Lisinopril 10 Mg Tablet) 10 mg PO BID [facility]; Protocol Last Admin: 07/23/24 21:14 Dose: 10 mg Magnesium Hydroxide (Milk Of Magnesia 30 Ml Oral.Susp) 30 ml PO DAILY PRN PRN Reason: Constipation Magnesium Oxide (Magnesium Oxide 400 Mg Tablet) 400 mg PO DAILY [facility] Last Admin: 07/23/24 09:18 Dose: 400 mg Multivitamins/Vitamin C (Multivitamin Tablet) 1 tab PO DAILY [facility] Last Admin: 07/23/24 09:18 Dose: 1 tab Olanzapine (Olanzapine 5 Mg Tablet) 5 mg PO BEDTIME [facility] Last Admin: 07/23/24 21:14 Dose: 5 mg Potassium Chloride (Potassium Chloride Er 10 Meq Tablet.Er) 10 meq PO DAILY [facility] Last Admin: 07/23/24 09:18 Dose: 10 meq Trazodone HCl (Trazodone Hcl 50 Mg Tablet) 50 mg PO BEDTIME MRX1 PRN PRN Reason: Insomnia Vitamin D (Cholecalciferol (Vitamin D3) 25 Mcg Tablet) 25 mcg PO DAILY [facility] Last Admin: 07/23/24 09:18 Dose: 25 mcg Allergies Allergies Allergy/AdvReac Type Severity Reaction Status Date / Time nitrofurantoin Allergy Unknown Verified 07/17/24 12:27 [From Macrobid] haloperidol [From Haldol] AdvReac Numbness Verified 07/17/24 12:27 Assessment & Plan Assessment & Plan (1) Schizoaffective disorder, bipolar type: Status: Acute Code(s): F25.0 - Schizoaffective disorder, bipolar type Plan Patient readmitted with psychotic symptoms restart olanzapine 2.5 mg at bedtime continue at present Rexulti 0.5 mg daily patient unable tolerate higher doses of olanzapine reportedly and has had side effects on Risperdal. Unclear if has been tried on Abilify patient states she is unable to afford the Rexulti. She is currently denying active suicidal thoughts. Appears patient has been having cognitive issues she does have vascular disease would most likely benefit from VNA supervision or other supervision through [facility] 07/22/2024: Reports wanting help with anxiety , mood and worrying about people to speaking about her and reluctantly agreed to increase nighttime olanzapine to 5 mg, rather than 2.5 mg twice daily 07/23/24: no med changes 07/24 consider change to abilify and SCOTT, given stopping medications quickly after discharge. pt ambivalent about this. Reason for continued inpatient stay Substantial Risk for: inability to function Time Spent With Patient Time: Total time managing care of this patient today ____ minutes.
[2024-07-24 10:47] VITALS: BP 113/55; PULSE 71
[2024-07-24] MEDS: carvediloL 6.25 MG TABLET PO ×2 (10:47→21:12)
[2024-07-24] MEDS: Magnesium Oxide 400 MG TABLET PO (10:47)
[2024-07-24] MEDS: Aspirin Enteric Coated 81 MG TABLET.DR PO (10:47)
[2024-07-24] MEDS: Cholecalciferol (Vitamin D3) 25 MCG TABLET PO (10:47)
[2024-07-24] MEDS: Multivitamin TABLET 1 TAB PO (10:47)
[2024-07-24 10:48] VITALS: BP 113/55
[2024-07-24] MEDS: Furosemide 40 MG TABLET PO (10:48)
[2024-07-24] MEDS: Potassium Chloride ER 10 MEQ TABLET.ER PO (10:48)
[2024-07-24] MEDS: amLODIPine Besylate 5 MG TABLET PO (10:48)
[2024-07-24] MEDS: Brexpiprazole 1 MG TABLET 0.5 MG PO (10:48)
[2024-07-24] MEDS: lisinopriL 10 MG TABLET PO ×2 (10:49→21:12)
--- NOTE | 2024-07-24 12:56 | P.CONHOSP_ITS ---
History of Present Illness Data of Consult Service Date: 07/24/24 Primary Care Provider: Garrison Beatty MD [facility] Reason for consult: Medical evaluation 79-year-old female with PMH of schizoaffective disorder, bipolar type, dementia, coronary artery disease, hypertension, and ischemic cardiomyopathy who presenting to the emergency department with confusion. She was on Olanzepine which she discontinued. One exam she denies any current pain or other physical complaints. Denies any drug or alcohol use. Patient states that she lives home alone, does not have any VNA services. No anemia, Tox screen negative, Urinalysis negative. No imaging performed. Review of Systems 2 Review of Systems: Denies any shortness of breath, chest pain, dizziness, lightheadedness, abdominal pain or discomfort, nausea vomiting or diarrhea [facility] Medical History (Updated 07/21/24 @ 16:43 by Emilio Estrada MD) Ischemic cardiomyopathy Essential hypertension Coronary artery disease Schizoaffective disorder, bipolar type Surgical History S/P CABG (coronary artery bypass graft) Social History Household Members: None Household Members Other:: Pt reports she lives alone. Housing: Apartment Do you presently have visiting nurse or other home services: No Alcohol intake: never Patient Tobacco Use Status: Never used Tobacco Smoked in Last 30 Days: No e-Cigarette/Vaping Use: Never Used Use of substances other than those prescribed or required for medical reasons: No Currently Displaying Signs/Symptoms of Drug Intoxication Withdrawal: No Have you been hit, kicked, punched, or otherwise hurt by someone within the past year? If so, by whom?: No Do you feel safe in your current relationship?: No Current Relationship Is there a partner from a previous relationship who is making you feel unsafe now?: No Are you made to feel afraid or neglected: No Advance Directives: Yes Advance Directives on File: Yes Advance Directives Date on File: 03/06/21 Do you have thoughts of harming others: None Do you have a plan to hurt others: No Plan Recently lost weight without trying: No Eating poorly because of decreased appetite: No Nutrition Risks: No Nutritional Risk Patient : No : No Poor oral hygiene: No service: No Sexual orientation: Straight/Heterosexual Meds Allergies Allergy/AdvReac Type Severity Reaction Status Date / Time cephalexin Allergy Unknown Unknown Verified 07/24/24 13:07 ciprofloxacin Allergy Unknown Unknown Verified 07/24/24 13:07 sulfadiazine Allergy Unknown Unknown Verified 07/24/24 13:07 nitrofurantoin Allergy Unknown Verified 07/24/24 13:07 [From Macrobid] haloperidol [From Haldol] AdvReac Numbness Verified 07/17/24 12:27 Prednisone Allergy Unknown Unknown Uncoded 07/24/24 13:07 Active Medications: Current Medications Acetaminophen (Acetaminophen 325 Mg Tablet) 650 mg PO Q6H PRN PRN Reason: Headache/Pain, Scale 1-10 Al Hydroxide/Mg Hydroxide (Magnesium Hydrox/Alum Hydrox 30 Ml Oral.Susp) 30 ml PO Q6H PRN PRN Reason: Heartburn/Nausea Amlodipine Besylate (Amlodipine Besylate 5 Mg Tablet) 5 mg PO DAILY REPLACED BY [facility]; Protocol Last Admin: 07/24/24 10:48 Dose: 5 mg Aspirin (Aspirin Enteric Coated 81 Mg Tablet.Dr) 81 mg PO DAILY REPLACED BY [facility] Last Admin: 07/24/24 10:47 Dose: 81 mg Brexpiprazole (Brexpiprazole 1 Mg Tablet) 0.5 mg PO DAILY REPLACED BY [facility] Last Admin: 07/24/24 10:48 Dose: 0.5 mg Carvedilol (Carvedilol 6.25 Mg Tablet) 6.25 mg PO BID REPLACED BY [facility]; Protocol Last Admin: 07/24/24 10:47 Dose: 6.25 mg Ezetimibe (Ezetimibe 10 Mg Tablet) 10 mg PO DAILY REPLACED BY [facility] Last Admin: 07/24/24 10:56 Dose: Not Given Furosemide (Furosemide 40 Mg Tablet) 40 mg PO DAILY REPLACED BY [facility]; Protocol Last Admin: 07/24/24 10:48 Dose: 40 mg Hydroxyzine HCl (Hydroxyzine Hcl 25 Mg Tablet) 25 mg PO Q6H PRN PRN Reason: mild anxiety Last Admin: 07/21/24 20:28 Dose: 25 mg Lisinopril (Lisinopril 10 Mg Tablet) 10 mg PO BID REPLACED BY [facility]; Protocol Last Admin: 07/24/24 10:49 Dose: 10 mg Magnesium Hydroxide (Milk Of Magnesia 30 Ml Oral.Susp) 30 ml PO DAILY PRN PRN Reason: Constipation Magnesium Oxide (Magnesium Oxide 400 Mg Tablet) 400 mg PO DAILY REPLACED BY [facility] Last Admin: 07/24/24 10:47 Dose: 400 mg Multivitamins/Vitamin C (Multivitamin Tablet) 1 tab PO DAILY REPLACED BY [facility] Last Admin: 07/24/24 10:47 Dose: 1 tab Olanzapine (Olanzapine 5 Mg Tablet) 5 mg PO BEDTIME REPLACED BY [facility] Last Admin: 07/23/24 21:14 Dose: 5 mg Potassium Chloride (Potassium Chloride Er 10 Meq Tablet.Er) 10 meq PO DAILY REPLACED BY [facility] Last Admin: 07/24/24 10:48 Dose: 10 meq Trazodone HCl (Trazodone Hcl 50 Mg Tablet) 50 mg PO BEDTIME MRX1 PRN PRN Reason: Insomnia Vitamin D (Cholecalciferol (Vitamin D3) 25 Mcg Tablet) 25 mcg PO DAILY REPLACED BY [facility] Last Admin: 07/24/24 10:47 Dose: 25 mcg Physical Exam 2 Vital Signs and Narrative: Vital Signs: Last Vital Signs Temp 97.7 F 07/24/24 08:00 Pulse 71 07/24/24 10:47 Resp 16 07/24/24 08:00 BP 113/55 L 07/24/24 10:48 Pulse Ox 97 07/24/24 08:00 O2 Del Method Room Air 07/24/24 08:00 BMI result Body Mass Index 21.8 Alert and oriented X3, able to give good history. Neuro: CN II-X11 intact, no deficits, visual acuity intact EYES: PERRLA, EOM intact ENT: hearing intact, uvula midline, lips moist Cardiac: S1 S2 RRR, no edema in Lower ext Pulmonary: lungs clear to auscultation, No increased WOB. Abdominal: BS active in all 4 quadrants, no guarding, tenderness, rebounding, obesity MSK: Strength 5/5 upper and lower extremities : no CVA tenderness no bladder distension or tenderness. Extremities: no edema in lower extremities Psych: mood stable, judgment and insight good Skin: Warm and dry, Intact Results Labs 07/17/24 13:41 07/21/24 07:20 Assessment and Plan (1) Essential hypertension: Status: Acute Plan Psychosis and noncompliance/Dementia Treatment per psychiatric team Hypertension/HLD Blood pressure review, stable Continue lisinopril and amlodipine Has an allergy to statin Coronary artery disease/Cardiomyopathy Patient with a history of double coronary artery bypass grafting in 2019. She has a drug-eluting stent in her LAD History of ST-elevation MD Continue aspirin, carvedilol, Lasix Appears euvolemic at this time.
[2024-07-24 20:00] VITALS: BP 150/67; PULSE 68; RESP 16; TEMP 36.3; O2SAT 97
[2024-07-24 21:12] VITALS: BP 150/67; PULSE 68
[2024-07-24] MEDS: OLANZapine 5 MG TABLET PO (21:13)
[2024-07-25 08:00] VITALS: BP 126/88; PULSE 75; TEMP 36.4; O2SAT 96
[2024-07-25] MEDS: Multivitamin TABLET 1 TAB PO (08:29)
[2024-07-25] MEDS: Aspirin Enteric Coated 81 MG TABLET.DR PO (08:29)
[2024-07-25] MEDS: Furosemide 40 MG TABLET PO (08:30)
[2024-07-25] MEDS: Magnesium Oxide 400 MG TABLET PO (08:31)
[2024-07-25] MEDS: Potassium Chloride ER 10 MEQ TABLET.ER PO (08:31)
[2024-07-25] MEDS: Cholecalciferol (Vitamin D3) 25 MCG TABLET PO (08:31)
[2024-07-25 08:58] VITALS: BP 137/63; PULSE 71
[2024-07-25] MEDS: carvediloL 6.25 MG TABLET PO ×2 (08:58→20:52)
[2024-07-25] MEDS: lisinopriL 10 MG TABLET PO ×2 (08:58→20:52)
[2024-07-25] MEDS: amLODIPine Besylate 5 MG TABLET PO (08:59)
--- NOTE | 2024-07-25 14:19 | P.PNPSI_ITS ---
Subjective Subjective Date of Service: 07/25/24 Reason For Visit: psychosis/noncompliance Subjective Notes: Conditional Voluntary Interim History: Pt slept through the night. She reports she refused rexulti as she thought we were starting a new medication. This technical proposal writer explained that given that she usually stops medications once discharge, to consider a medication that has SCOTT formulation. She has been visible on the unit. No overt delusional content, but she very anxious and ambivalent about medications and need for psychiatric treatment. Review of Systems Review of Systems Denies any shortness of breath, chest pain, dizziness, lightheadedness, abdominal pain or discomfort, nausea vomiting or diarrhea Yes all other systems are reviewed and are negative Constitutional: Reports as per HPI Mental Status Exam Mental Status Exam Narrative: Appearance: casually groomed, good hygiene, in NAD Behavior: guarded, ambivalent, superficially cooperative Psychomotor: some retardation Speech: clear, normal rate/rhythm/spontaneous TP:repetitive and ambivalent TC: some suspiciousness, not sure why she would be brought to the hospital nor why would others be concerned about her. Mood: okay Affect: constricted SI: denies HI: denies VH/AH: appears internally preoccupied but denies Delusions: worried about side effects of medications. Insight/judgment: impaired x 2 Memory/cog:alert, oriented x 4. Diagnostics Vital Signs (24Hr): Vital Signs - 24 hr 07/24/24 20:00 07/24/24 21:12 07/24/24 21:12 Temperature 97.3 F Pulse Rate 68 68 Respiratory Rate 16 Blood Pressure 150/67 H 150/67 H 150/67 H Pulse Oximetry 97 Oxygen Delivery Method Room Air 07/25/24 08:00 07/25/24 08:58 07/25/24 08:58 Temperature 97.5 F Pulse Rate 75 71 Respiratory Rate Blood Pressure 126/88 137/63 137/63 Pulse Oximetry 96 Oxygen Delivery Method Room Air BMI result Body Mass Index 21.8 Labs 07/17/24 13:41 07/21/24 07:20 Medications Medications Current Medications Acetaminophen (Acetaminophen 325 Mg Tablet) 650 mg PO Q6H PRN PRN Reason: Headache/Pain, Scale 1-10 Al Hydroxide/Mg Hydroxide (Magnesium Hydrox/Alum Hydrox 30 Ml Oral.Susp) 30 ml PO Q6H PRN PRN Reason: Heartburn/Nausea Amlodipine Besylate (Amlodipine Besylate 5 Mg Tablet) 5 mg PO DAILY [facility]; Protocol Last Admin: 07/25/24 08:59 Dose: 5 mg Aspirin (Aspirin Enteric Coated 81 Mg Tablet.Dr) 81 mg PO DAILY [facility] Last Admin: 07/25/24 08:29 Dose: 81 mg Brexpiprazole (Brexpiprazole 1 Mg Tablet) 0.5 mg PO DAILY [facility] Last Admin: 07/25/24 08:34 Dose: Not Given Carvedilol (Carvedilol 6.25 Mg Tablet) 6.25 mg PO BID [facility]; Protocol Last Admin: 07/25/24 08:58 Dose: 6.25 mg Ezetimibe (Ezetimibe 10 Mg Tablet) 10 mg PO DAILY [facility] Last Admin: 07/25/24 08:31 Dose: Not Given Furosemide (Furosemide 40 Mg Tablet) 40 mg PO DAILY [facility]; Protocol Last Admin: 07/25/24 08:30 Dose: 40 mg Hydroxyzine HCl (Hydroxyzine Hcl 25 Mg Tablet) 25 mg PO Q6H PRN PRN Reason: mild anxiety Last Admin: 07/21/24 20:28 Dose: 25 mg Lisinopril (Lisinopril 10 Mg Tablet) 10 mg PO BID [facility]; Protocol Last Admin: 07/25/24 08:58 Dose: 10 mg Magnesium Hydroxide (Milk Of Magnesia 30 Ml Oral.Susp) 30 ml PO DAILY PRN PRN Reason: Constipation Magnesium Oxide (Magnesium Oxide 400 Mg Tablet) 400 mg PO DAILY [facility] Last Admin: 07/25/24 08:31 Dose: 400 mg Multivitamins/Vitamin C (Multivitamin Tablet) 1 tab PO DAILY [facility] Last Admin: 07/25/24 08:29 Dose: 1 tab Olanzapine (Olanzapine 5 Mg Tablet) 5 mg PO BEDTIME [facility] Last Admin: 07/24/24 21:13 Dose: 5 mg Potassium Chloride (Potassium Chloride Er 10 Meq Tablet.Er) 10 meq PO DAILY [facility] Last Admin: 07/25/24 08:31 Dose: 10 meq Trazodone HCl (Trazodone Hcl 50 Mg Tablet) 50 mg PO BEDTIME MRX1 PRN PRN Reason: Insomnia Vitamin D (Cholecalciferol (Vitamin D3) 25 Mcg Tablet) 25 mcg PO DAILY [facility] Last Admin: 07/25/24 08:31 Dose: 25 mcg Allergies Allergies Allergy/AdvReac Type Severity Reaction Status Date / Time cephalexin Allergy Unknown Unknown Verified 07/24/24 13:07 ciprofloxacin Allergy Unknown Unknown Verified 07/24/24 13:07 sulfadiazine Allergy Unknown Unknown Verified 07/24/24 13:07 nitrofurantoin Allergy Unknown Verified 07/24/24 13:07 [From Macrobid] haloperidol [From Haldol] AdvReac Numbness Verified 07/17/24 12:27 Prednisone Allergy Unknown Unknown Uncoded 07/24/24 13:07 Assessment & Plan Assessment & Plan (1) Schizoaffective disorder, bipolar type: Status: Acute Code(s): F25.0 - Schizoaffective disorder, bipolar type Plan Patient readmitted with psychotic symptoms restart olanzapine 2.5 mg at bedtime continue at present Rexulti 0.5 mg daily patient unable tolerate higher doses of olanzapine reportedly and has had side effects on Risperdal. Unclear if has been tried on Abilify patient states she is unable to afford the Rexulti. She is currently denying active suicidal thoughts. Appears patient has been having cognitive issues she does have vascular disease would most likely benefit from VNA supervision or other supervision through [facility] 07/22/2024: Reports wanting help with anxiety , mood and worrying about people to speaking about her and reluctantly agreed to increase nighttime olanzapine to 5 mg, rather than 2.5 mg twice daily 07/23/24: no med changes 07/24 consider change to abilify and SCOTT, given stopping medications quickly after discharge. pt ambivalent about this. 07/25 can try abilify oral, stop olanzapine, continue rexulti as abilify takes full effect. Reason for continued inpatient stay Substantial Risk for: inability to function Time Spent With Patient Time: Total time managing care of this patient today ____ minutes.
[2024-07-25 20:00] VITALS: BP 121/58; PULSE 63; RESP 16; TEMP 37.6; O2SAT 97
[2024-07-25] MEDS: OLANZapine 5 MG TABLET PO (20:51)
[2024-07-25 20:52] VITALS: BP 121/58; PULSE 63
[2024-07-26 08:00] VITALS: BP 127/59; PULSE 70; RESP 16; TEMP 36.9; O2SAT 96
[2024-07-26] MEDS: Magnesium Oxide 400 MG TABLET PO (09:09)
[2024-07-26] MEDS: Aspirin Enteric Coated 81 MG TABLET.DR PO (09:09)
[2024-07-26] MEDS: Cholecalciferol (Vitamin D3) 25 MCG TABLET PO (09:10)
[2024-07-26] MEDS: lisinopriL 10 MG TABLET PO ×2 (09:10→19:53)
[2024-07-26] MEDS: Potassium Chloride ER 10 MEQ TABLET.ER PO (09:11)
[2024-07-26] MEDS: Multivitamin TABLET 1 TAB PO (09:11)
[2024-07-26] MEDS: Furosemide 40 MG TABLET PO (09:11)
[2024-07-26] MEDS: carvediloL 6.25 MG TABLET PO ×2 (09:11→19:53)
[2024-07-26] MEDS: amLODIPine Besylate 5 MG TABLET PO (09:12)
--- NOTE | 2024-07-26 11:04 | HO.PSYCHPN ---
Subjective Subjective Date of Service: 07/26/24 Reason For Visit: psychosis/noncompliance Subjective Notes: Conditional Voluntary Interim History: Pt slept through the night. She reports she refused rexulti as she thought we were starting a new medication. This conventional underwriter explained that given that she usually stops medications once discharge, to consider a medication that has SCOTT formulation. She is guarded, finally decided to try abilify 10mg po daily with plan to do SCOTT if effective and no side effects. Review of Systems Review of Systems Denies any shortness of breath, chest pain, dizziness, lightheadedness, abdominal pain or discomfort, nausea vomiting or diarrhea Yes all other systems are reviewed and are negative Constitutional: Reports as per HPI Mental Status Exam Mental Status Exam Narrative: Appearance: casually groomed, good hygiene, in NAD Behavior: guarded, ambivalent, superficially cooperative Psychomotor: some retardation Speech: clear, normal rate/rhythm/spontaneous TP:repetitive and ambivalent TC: some suspiciousness, not sure why she would be brought to the hospital nor why would others be concerned about her. Mood: okay Affect: constricted SI: denies HI: denies VH/AH: appears internally preoccupied but denies Delusions: worried about side effects of medications. Insight/judgment: impaired x 2 Memory/cog:alert, oriented x 4. Diagnostics Vital Signs (24Hr): Vital Signs - 24 hr 07/25/24 20:00 07/25/24 20:52 07/25/24 20:52 Temperature 99.7 F Pulse Rate 63 63 Respiratory Rate 16 Blood Pressure 121/58 L 121/58 L 121/58 L Pulse Oximetry 97 Oxygen Delivery Method Room Air 07/26/24 08:00 Temperature 98.4 F Pulse Rate 70 Respiratory Rate 16 Blood Pressure 127/59 L Pulse Oximetry 96 Oxygen Delivery Method Room Air BMI result Body Mass Index 21.8 Labs 07/17/24 13:41 07/21/24 07:20 Medications Medications Current Medications Acetaminophen (Acetaminophen 325 Mg Tablet) 650 mg PO Q6H PRN PRN Reason: Headache/Pain, Scale 1-10 Al Hydroxide/Mg Hydroxide (Magnesium Hydrox/Alum Hydrox 30 Ml Oral.Susp) 30 ml PO Q6H PRN PRN Reason: Heartburn/Nausea Amlodipine Besylate (Amlodipine Besylate 5 Mg Tablet) 5 mg PO DAILY [facility]; Protocol Last Admin: 07/26/24 09:12 Dose: 5 mg Aspirin (Aspirin Enteric Coated 81 Mg Tablet.Dr) 81 mg PO DAILY [facility] Last Admin: 07/26/24 09:09 Dose: 81 mg Brexpiprazole (Brexpiprazole 1 Mg Tablet) 0.5 mg PO DAILY [facility] Last Admin: 07/26/24 09:15 Dose: Not Given Carvedilol (Carvedilol 6.25 Mg Tablet) 6.25 mg PO BID [facility]; Protocol Last Admin: 07/26/24 09:11 Dose: 6.25 mg Ezetimibe (Ezetimibe 10 Mg Tablet) 10 mg PO DAILY [facility] Last Admin: 07/26/24 09:19 Dose: Not Given Furosemide (Furosemide 40 Mg Tablet) 40 mg PO DAILY [facility]; Protocol Last Admin: 07/26/24 09:11 Dose: 40 mg Hydroxyzine HCl (Hydroxyzine Hcl 25 Mg Tablet) 25 mg PO Q6H PRN PRN Reason: mild anxiety Last Admin: 07/21/24 20:28 Dose: 25 mg Lisinopril (Lisinopril 10 Mg Tablet) 10 mg PO BID [facility]; Protocol Last Admin: 07/26/24 09:10 Dose: 10 mg Magnesium Hydroxide (Milk Of Magnesia 30 Ml Oral.Susp) 30 ml PO DAILY PRN PRN Reason: Constipation Magnesium Oxide (Magnesium Oxide 400 Mg Tablet) 400 mg PO DAILY [facility] Last Admin: 07/26/24 09:09 Dose: 400 mg Multivitamins/Vitamin C (Multivitamin Tablet) 1 tab PO DAILY [facility] Last Admin: 07/26/24 09:11 Dose: 1 tab Olanzapine (Olanzapine 5 Mg Tablet) 5 mg PO BEDTIME [facility] Last Admin: 07/25/24 20:51 Dose: 5 mg Potassium Chloride (Potassium Chloride Er 10 Meq Tablet.Er) 10 meq PO DAILY [facility] Last Admin: 07/26/24 09:11 Dose: 10 meq Trazodone HCl (Trazodone Hcl 50 Mg Tablet) 50 mg PO BEDTIME MRX1 PRN PRN Reason: Insomnia Vitamin D (Cholecalciferol (Vitamin D3) 25 Mcg Tablet) 25 mcg PO DAILY [facility] Last Admin: 07/26/24 09:10 Dose: 25 mcg Allergies Allergies Allergy/AdvReac Type Severity Reaction Status Date / Time cephalexin Allergy Unknown Unknown Verified 07/24/24 13:07 ciprofloxacin Allergy Unknown Unknown Verified 07/24/24 13:07 sulfadiazine Allergy Unknown Unknown Verified 07/24/24 13:07 nitrofurantoin Allergy Unknown Verified 07/24/24 13:07 [From Macrobid] haloperidol [From Haldol] AdvReac Numbness Verified 07/17/24 12:27 Prednisone Allergy Unknown Unknown Uncoded 07/24/24 13:07 Assessment & Plan Assessment & Plan (1) Schizoaffective disorder, bipolar type: Status: Acute Code(s): F25.0 - Schizoaffective disorder, bipolar type Plan Patient readmitted with psychotic symptoms restart olanzapine 2.5 mg at bedtime continue at present Rexulti 0.5 mg daily patient unable tolerate higher doses of olanzapine reportedly and has had side effects on Risperdal. Unclear if has been tried on Abilify patient states she is unable to afford the Rexulti. She is currently denying active suicidal thoughts. Appears patient has been having cognitive issues she does have vascular disease would most likely benefit from VNA supervision or other supervision through [facility] 07/22/2024: Reports wanting help with anxiety , mood and worrying about people to speaking about her and reluctantly agreed to increase nighttime olanzapine to 5 mg, rather than 2.5 mg twice daily 07/23/24: no med changes 07/24 consider change to abilify and SCOTT, given stopping medications quickly after discharge. pt ambivalent about this. 07/25 can try abilify oral, stop olanzapine, continue rexulti as abilify takes full effect. 07/26 d/c olanzapine, d/c rexulti. will try abilify 10mg po daily- titrate as tolerated. plan for SCOTT if effective and tolerable. Reason for continued inpatient stay Substantial Risk for: inability to function Time Spent With Patient Time: Total time managing care of this patient today ____ minutes.
[2024-07-26] MEDS: ARIPiprazole 10 MG TABLET PO (14:45)
[2024-07-26 19:53] VITALS: BP 134/69; PULSE 65
[2024-07-26 20:00] VITALS: BP 134/67; PULSE 65; RESP 16; TEMP 36.4; O2SAT 98
[2024-07-27 08:00] VITALS: BP 133/61; PULSE 65; RESP 16; TEMP 36.9; O2SAT 97
[2024-07-27] MEDS: Furosemide 40 MG TABLET PO (08:55)
[2024-07-27] MEDS: Potassium Chloride ER 10 MEQ TABLET.ER PO (08:55)
[2024-07-27] MEDS: Magnesium Oxide 400 MG TABLET PO (08:55)
[2024-07-27] MEDS: carvediloL 6.25 MG TABLET PO ×2 (08:55→19:40)
[2024-07-27] MEDS: Multivitamin TABLET 1 TAB PO (08:56)
[2024-07-27] MEDS: ARIPiprazole 10 MG TABLET PO (08:56)
[2024-07-27] MEDS: lisinopriL 10 MG TABLET PO ×2 (08:56→19:40)
[2024-07-27] MEDS: amLODIPine Besylate 5 MG TABLET PO (08:56)
[2024-07-27] MEDS: Aspirin Enteric Coated 81 MG TABLET.DR PO (08:56)
[2024-07-27] MEDS: Ezetimibe 10 MG TABLET PO (09:04)
[2024-07-27] MEDS: Cholecalciferol (Vitamin D3) 25 MCG TABLET PO (10:14)
[2024-07-27 12:49] VITALS: BMI 21.8
--- NOTE | 2024-07-27 16:45 | P.PNPSI_ITS ---
Subjective Subjective Date of Service: 07/27/24 Reason For Visit: psychosis/noncompliance Subjective Notes: Conditional Voluntary Interim History: Pt slept through the night. She is repetitive about side effects of new medication and going back and forth about whether she should take it or not. asked several times to speak with this journalists and other writers to ask same question. reassured to take it as when she is not stable is when she starts calling son with paranoid ideas, and then comes to the hospital. seemed bit more reassure but only for brief period of time. Review of Systems Review of Systems Denies any shortness of breath, chest pain, dizziness, lightheadedness, abdominal pain or discomfort, nausea vomiting or diarrhea Yes all other systems are reviewed and are negative Constitutional: Reports as per [facility] Mental Status Exam Mental Status Exam Narrative: Appearance: casually groomed, good hygiene, in NAD Behavior: guarded, ambivalent, superficially cooperative Psychomotor: some retardation Speech: clear, normal rate/rhythm/spontaneous TP:repetitive and ambivalent TC: some suspiciousness, not sure why she would be brought to the hospital nor why would others be concerned about her. Mood: okay Affect: constricted SI: denies HI: denies VH/AH: appears internally preoccupied but denies Delusions: worried about side effects of medications. Insight/judgment: impaired x 2 Memory/cog:alert, oriented x 4. Diagnostics Vital Signs (24Hr): Vital Signs - 24 hr 07/26/24 19:53 07/26/24 19:53 07/26/24 20:00 Temperature 97.6 F Pulse Rate 65 65 Respiratory Rate 16 Blood Pressure 134/69 134/69 134/67 Pulse Oximetry 98 Oxygen Delivery Method Room Air 07/27/24 08:00 Temperature 98.4 F Pulse Rate 65 Respiratory Rate 16 Blood Pressure 133/61 Pulse Oximetry 97 Oxygen Delivery Method Room Air BMI result Body Mass Index 21.8 Labs 07/17/24 13:41 07/21/24 07:20 Medications Medications Current Medications Acetaminophen (Acetaminophen 325 Mg Tablet) 650 mg PO Q6H PRN PRN Reason: Headache/Pain, Scale 1-10 Al Hydroxide/Mg Hydroxide (Magnesium Hydrox/Alum Hydrox 30 Ml Oral.Susp) 30 ml PO Q6H PRN PRN Reason: Heartburn/Nausea Amlodipine Besylate (Amlodipine Besylate 5 Mg Tablet) 5 mg PO DAILY [facility]; Protocol Last Admin: 07/27/24 08:56 Dose: 5 mg Aripiprazole (Aripiprazole 10 Mg Tablet) 10 mg PO DAILY [facility] Last Admin: 07/27/24 08:56 Dose: 10 mg Aspirin (Aspirin Enteric Coated 81 Mg Tablet.Dr) 81 mg PO DAILY [facility] Last Admin: 07/27/24 08:56 Dose: 81 mg Carvedilol (Carvedilol 6.25 Mg Tablet) 6.25 mg PO BID [facility]; Protocol Last Admin: 07/27/24 08:55 Dose: 6.25 mg Ezetimibe (Ezetimibe 10 Mg Tablet) 10 mg PO DAILY [facility] Last Admin: 07/27/24 09:04 Dose: 10 mg Furosemide (Furosemide 40 Mg Tablet) 40 mg PO DAILY [facility]; Protocol Last Admin: 07/27/24 08:55 Dose: 40 mg Hydroxyzine HCl (Hydroxyzine Hcl 25 Mg Tablet) 25 mg PO Q6H PRN PRN Reason: mild anxiety Last Admin: 07/21/24 20:28 Dose: 25 mg Lisinopril (Lisinopril 10 Mg Tablet) 10 mg PO BID [facility]; Protocol Last Admin: 07/27/24 08:56 Dose: 10 mg Magnesium Hydroxide (Milk Of Magnesia 30 Ml Oral.Susp) 30 ml PO DAILY PRN PRN Reason: Constipation Magnesium Oxide (Magnesium Oxide 400 Mg Tablet) 400 mg PO DAILY [facility] Last Admin: 07/27/24 08:55 Dose: 400 mg Multivitamins/Vitamin C (Multivitamin Tablet) 1 tab PO DAILY [facility] Last Admin: 07/27/24 08:56 Dose: 1 tab Potassium Chloride (Potassium Chloride Er 10 Meq Tablet.Er) 10 meq PO DAILY [facility] Last Admin: 07/27/24 08:55 Dose: 10 meq Trazodone HCl (Trazodone Hcl 50 Mg Tablet) 50 mg PO BEDTIME MRX1 PRN PRN Reason: Insomnia Vitamin D (Cholecalciferol (Vitamin D3) 25 Mcg Tablet) 25 mcg PO DAILY [facility] Last Admin: 07/27/24 10:14 Dose: 25 mcg Allergies Allergies Allergy/AdvReac Type Severity Reaction Status Date / Time cephalexin Allergy Unknown Unknown Verified 07/24/24 13:07 ciprofloxacin Allergy Unknown Unknown Verified 07/24/24 13:07 sulfadiazine Allergy Unknown Unknown Verified 07/24/24 13:07 nitrofurantoin Allergy Unknown Verified 07/24/24 13:07 [From Macrobid] haloperidol [From Haldol] AdvReac Numbness Verified 07/17/24 12:27 Prednisone Allergy Unknown Unknown Uncoded 07/24/24 13:07 Assessment & Plan Assessment & Plan (1) Schizoaffective disorder, bipolar type: Status: Acute Code(s): F25.0 - Schizoaffective disorder, bipolar type Plan Patient readmitted with psychotic symptoms restart olanzapine 2.5 mg at bedtime continue at present Rexulti 0.5 mg daily patient unable tolerate higher doses of olanzapine reportedly and has had side effects on Risperdal. Unclear if has been tried on Abilify patient states she is unable to afford the Rexulti. She is currently denying active suicidal thoughts. Appears patient has been having cognitive issues she does have vascular disease would most likely benefit from VNA supervision or other supervision through [facility] 07/22/2024: Reports wanting help with anxiety , mood and worrying about people to speaking about her and reluctantly agreed to increase nighttime olanzapine to 5 mg, rather than 2.5 mg twice daily 07/23/24: no med changes 07/24 consider change to abilify and SCOTT, given stopping medications quickly after discharge. pt ambivalent about this. 07/25 can try abilify oral, stop olanzapine, continue rexulti as abilify takes full effect. 07/26 d/c olanzapine, d/c rexulti. will try abilify 10mg po daily- titrate as tolerated. plan for SCOTT if effective and tolerable. 07/27 continue tx. continue abilify 10mg po daily. Reason for continued inpatient stay Substantial Risk for: inability to function Time Spent With Patient Time: Total time managing care of this patient today ____ minutes.
[2024-07-27 19:40] VITALS: BP 123/71; PULSE 67
[2024-07-27 19:41] VITALS: BP 123/71; PULSE 66; RESP 16; TEMP 36; O2SAT 97
[2024-07-28 07:47] VITALS: BP 136/65; PULSE 62; RESP 18; TEMP 36.8; O2SAT 96
[2024-07-28] MEDS: Furosemide 40 MG TABLET PO (08:29)
[2024-07-28] MEDS: Potassium Chloride ER 10 MEQ TABLET.ER PO (08:29)
[2024-07-28] MEDS: amLODIPine Besylate 5 MG TABLET PO (08:29)
[2024-07-28] MEDS: Multivitamin TABLET 1 TAB PO (08:29)
[2024-07-28] MEDS: Magnesium Oxide 400 MG TABLET PO (08:29)
[2024-07-28] MEDS: Cholecalciferol (Vitamin D3) 25 MCG TABLET PO (08:29)
[2024-07-28] MEDS: ARIPiprazole 10 MG TABLET PO (08:29)
[2024-07-28] MEDS: Aspirin Enteric Coated 81 MG TABLET.DR PO (08:29)
[2024-07-28] MEDS: carvediloL 6.25 MG TABLET PO ×2 (08:29→21:07)
[2024-07-28] MEDS: lisinopriL 10 MG TABLET PO ×2 (08:30→21:08)
[2024-07-28] MEDS: Ezetimibe 10 MG TABLET PO (08:30)
--- NOTE | 2024-07-28 11:08 | P.PNPSI_ITS ---
Subjective Subjective Date of Service: 07/28/24 Reason For Visit: psychosis/noncompliance Interim History: Pt slept through the night. SShe may be slightly less somatically preoccupied about side effects of medication but once again she asks why abilify and not rexulti. we discussed again option of SCOTT with kota since she is anxious about taking medications, this will help with only once a month to hesitate about taking medication or not. She denies any side effects. She also asks how long she has to stay, understand goal is that she is more stable so she won't return to hospital soon after discharged. No SI/HI. She is eating well. VS stable. Review of Systems Review of Systems Denies any shortness of breath, chest pain, dizziness, lightheadedness, abdominal pain or discomfort, nausea vomiting or diarrhea Yes all other systems are reviewed and are negative Constitutional: Reports as per [facility] Mental Status Exam Mental Status Exam Narrative: Appearance: casually groomed, good hygiene, in NAD Behavior: guarded, ambivalent, superficially cooperative Psychomotor: some retardation Speech: clear, normal rate/rhythm/spontaneous TP:repetitive and ambivalent TC: some suspiciousness, not sure why she would be brought to the hospital nor why would others be concerned about her. Mood: okay Affect: constricted SI: denies HI: denies VH/AH: appears internally preoccupied but denies Delusions: worried about side effects of medications. Insight/judgment: impaired x 2 Memory/cog:alert, oriented x 4. Diagnostics Vital Signs (24Hr): Vital Signs - 24 hr 07/27/24 19:40 07/27/24 19:40 07/27/24 19:41 Temperature 96.8 F Pulse Rate 67 66 Respiratory Rate 16 Blood Pressure 123/71 123/71 123/71 Pulse Oximetry 97 Oxygen Delivery Method Room Air 07/28/24 07:47 Temperature 98.2 F Pulse Rate 62 Respiratory Rate 18 Blood Pressure 136/65 Pulse Oximetry 96 Oxygen Delivery Method Room Air BMI result Body Mass Index 21.8 Labs 07/17/24 13:41 07/21/24 07:20 Medications Medications Current Medications Acetaminophen (Acetaminophen 325 Mg Tablet) 650 mg PO Q6H PRN PRN Reason: Headache/Pain, Scale 1-10 Al Hydroxide/Mg Hydroxide (Magnesium Hydrox/Alum Hydrox 30 Ml Oral.Susp) 30 ml PO Q6H PRN PRN Reason: Heartburn/Nausea Amlodipine Besylate (Amlodipine Besylate 5 Mg Tablet) 5 mg PO DAILY [facility]; Protocol Last Admin: 07/28/24 08:29 Dose: 5 mg Aripiprazole (Aripiprazole 10 Mg Tablet) 10 mg PO DAILY [facility] Last Admin: 07/28/24 08:29 Dose: 10 mg Aspirin (Aspirin Enteric Coated 81 Mg Tablet.Dr) 81 mg PO DAILY [facility] Last Admin: 07/28/24 08:29 Dose: 81 mg Carvedilol (Carvedilol 6.25 Mg Tablet) 6.25 mg PO BID [facility]; Protocol Last Admin: 07/28/24 08:29 Dose: 6.25 mg Ezetimibe (Ezetimibe 10 Mg Tablet) 10 mg PO DAILY [facility] Last Admin: 07/28/24 08:30 Dose: 10 mg Furosemide (Furosemide 40 Mg Tablet) 40 mg PO DAILY [facility]; Protocol Last Admin: 07/28/24 08:29 Dose: 40 mg Hydroxyzine HCl (Hydroxyzine Hcl 25 Mg Tablet) 25 mg PO Q6H PRN PRN Reason: mild anxiety Last Admin: 07/21/24 20:28 Dose: 25 mg Lisinopril (Lisinopril 10 Mg Tablet) 10 mg PO BID [facility]; Protocol Last Admin: 07/28/24 08:30 Dose: 10 mg Magnesium Hydroxide (Milk Of Magnesia 30 Ml Oral.Susp) 30 ml PO DAILY PRN PRN Reason: Constipation Magnesium Oxide (Magnesium Oxide 400 Mg Tablet) 400 mg PO DAILY [facility] Last Admin: 07/28/24 08:29 Dose: 400 mg Multivitamins/Vitamin C (Multivitamin Tablet) 1 tab PO DAILY [facility] Last Admin: 07/28/24 08:29 Dose: 1 tab Potassium Chloride (Potassium Chloride Er 10 Meq Tablet.Er) 10 meq PO DAILY [facility] Last Admin: 07/28/24 08:29 Dose: 10 meq Trazodone HCl (Trazodone Hcl 50 Mg Tablet) 50 mg PO BEDTIME MRX1 PRN PRN Reason: Insomnia Vitamin D (Cholecalciferol (Vitamin D3) 25 Mcg Tablet) 25 mcg PO DAILY [facility] Last Admin: 07/28/24 08:29 Dose: 25 mcg Allergies Allergies Allergy/AdvReac Type Severity Reaction Status Date / Time cephalexin Allergy Unknown Unknown Verified 07/24/24 13:07 ciprofloxacin Allergy Unknown Unknown Verified 07/24/24 13:07 sulfadiazine Allergy Unknown Unknown Verified 07/24/24 13:07 nitrofurantoin Allergy Unknown Verified 07/24/24 13:07 [From Macrobid] haloperidol [From Haldol] AdvReac Numbness Verified 07/17/24 12:27 Prednisone Allergy Unknown Unknown Uncoded 07/24/24 13:07 Assessment & Plan Assessment & Plan (1) Schizoaffective disorder, bipolar type: Status: Acute Code(s): F25.0 - Schizoaffective disorder, bipolar type Plan Patient readmitted with psychotic symptoms restart olanzapine 2.5 mg at bedtime continue at present Rexulti 0.5 mg daily patient unable tolerate higher doses of olanzapine reportedly and has had side effects on Risperdal. Unclear if has been tried on Abilify patient states she is unable to afford the Rexulti. She is currently denying active suicidal thoughts. Appears patient has been having cognitive issues she does have vascular disease would most likely benefit from VNA supervision or other supervision through [facility] 07/22/2024: Reports wanting help with anxiety , mood and worrying about people to speaking about her and reluctantly agreed to increase nighttime olanzapine to 5 mg, rather than 2.5 mg twice daily 07/23/24: no med changes 07/24 consider change to abilify and SCOTT, given stopping medications quickly after discharge. pt ambivalent about this. 07/25 can try abilify oral, stop olanzapine, continue rexulti as abilify takes full effect. 07/26 d/c olanzapine, d/c rexulti. will try abilify 10mg po daily- titrate as tolerated. plan for SCOTT if effective and tolerable. 07/27 continue tx. continue abilify 10mg po daily. 07/28 continue tx. Reason for continued inpatient stay Substantial Risk for: inability to function Time Spent With Patient Time: Total time managing care of this patient today ____ minutes.
[2024-07-28 20:00] VITALS: BP 135/63; PULSE 65; RESP 16; TEMP 36.6; O2SAT 98
[2024-07-28 21:07] VITALS: BP 135/63; PULSE 65
[2024-07-28 21:08] VITALS: BP 135/63
[2024-07-29 08:00] VITALS: BP 127/60; PULSE 67; RESP 14; TEMP 36.8; O2SAT 98
[2024-07-29] MEDS: Potassium Chloride ER 10 MEQ TABLET.ER PO (08:55)
[2024-07-29] MEDS: Ezetimibe 10 MG TABLET PO (08:55)
[2024-07-29] MEDS: Magnesium Oxide 400 MG TABLET PO (08:55)
[2024-07-29] MEDS: Aspirin Enteric Coated 81 MG TABLET.DR PO (08:55)
[2024-07-29] MEDS: Multivitamin TABLET 1 TAB PO (08:55)
[2024-07-29] MEDS: amLODIPine Besylate 5 MG TABLET PO (08:56)
[2024-07-29] MEDS: lisinopriL 10 MG TABLET PO ×2 (08:57→21:23)
[2024-07-29] MEDS: ARIPiprazole 10 MG TABLET PO (08:57)
[2024-07-29] MEDS: Cholecalciferol (Vitamin D3) 25 MCG TABLET PO (08:57)
[2024-07-29] MEDS: carvediloL 6.25 MG TABLET PO ×2 (08:58→21:24)
[2024-07-29] MEDS: Furosemide 40 MG TABLET PO (08:58)
--- NOTE | 2024-07-29 10:01 | HO.PSYCHPN ---
Subjective Subjective Date of Service: 07/29/24 Reason For Visit: psychosis/noncompliance Interim History: Pt is anxious about medications and questions them but takes them after nurse's clarification. Feels medication changes have been helpful for anxiety and depression. Less preoccupied. She denies any side effects. No SI/HI. She is eating well. Sleep is good. VS stable. Review of Systems Review of Systems Denies any shortness of breath, chest pain, dizziness, lightheadedness, abdominal pain or discomfort, nausea vomiting or diarrhea Yes all other systems are reviewed and are negative Constitutional: Reports as per [facility] Mental Status Exam Mental Status Exam Narrative: Appearance: casually groomed, good hygiene, in NAD Behavior: guarded, ambivalent, superficially cooperative Psychomotor: some retardation Speech: clear, normal rate/rhythm/spontaneous TP:repetitive and ambivalent TC: some suspiciousness, not sure why she would be brought to the hospital nor why would others be concerned about her. Mood: okay Affect: constricted SI: denies HI: denies VH/AH: appears internally preoccupied but denies Delusions: worried about side effects of medications. Insight/judgment: impaired x 2 Memory/cog:alert, oriented x 4. Patient Appearance: Well Grooomed Patient Orientation: Person, Place, Time and Situation Level of Consciousness: Alert Patient Behavior: Appropriate and Isolative Mood Description: Withdrawn Affect Description: Depressed Patient Cognition Impaired: No Ability to Follow Directions: Good Speech Pattern: Clear Memory Description: Intact Diagnostics Vital Signs (24Hr): Vital Signs - 24 hr 07/28/24 20:00 07/28/24 21:07 07/28/24 21:08 Temperature 97.9 F Pulse Rate 65 65 Respiratory Rate 16 Blood Pressure 135/63 135/63 135/63 Pulse Oximetry 98 Oxygen Delivery Method 07/29/24 08:00 Temperature 98.2 F Pulse Rate 67 Respiratory Rate 14 Blood Pressure 127/60 Pulse Oximetry 98 Oxygen Delivery Method Room Air BMI result Body Mass Index 21.8 Labs 07/17/24 13:41 07/21/24 07:20 Medications Medications Current Medications Acetaminophen (Acetaminophen 325 Mg Tablet) 650 mg PO Q6H PRN PRN Reason: Headache/Pain, Scale 1-10 Al Hydroxide/Mg Hydroxide (Magnesium Hydrox/Alum Hydrox 30 Ml Oral.Susp) 30 ml PO Q6H PRN PRN Reason: Heartburn/Nausea Amlodipine Besylate (Amlodipine Besylate 5 Mg Tablet) 5 mg PO DAILY [facility]; Protocol Last Admin: 07/29/24 08:56 Dose: 5 mg Aripiprazole (Aripiprazole 10 Mg Tablet) 10 mg PO DAILY [facility] Last Admin: 07/29/24 08:57 Dose: 10 mg Aspirin (Aspirin Enteric Coated 81 Mg Tablet.Dr) 81 mg PO DAILY [facility] Last Admin: 07/29/24 08:55 Dose: 81 mg Carvedilol (Carvedilol 6.25 Mg Tablet) 6.25 mg PO BID [facility]; Protocol Last Admin: 07/29/24 08:58 Dose: 6.25 mg Ezetimibe (Ezetimibe 10 Mg Tablet) 10 mg PO DAILY [facility] Last Admin: 07/29/24 08:55 Dose: 10 mg Furosemide (Furosemide 40 Mg Tablet) 40 mg PO DAILY [facility]; Protocol Last Admin: 07/29/24 08:58 Dose: 40 mg Hydroxyzine HCl (Hydroxyzine Hcl 25 Mg Tablet) 25 mg PO Q6H PRN PRN Reason: mild anxiety Last Admin: 07/21/24 20:28 Dose: 25 mg Lisinopril (Lisinopril 10 Mg Tablet) 10 mg PO BID [facility]; Protocol Last Admin: 07/29/24 08:57 Dose: 10 mg Magnesium Hydroxide (Milk Of Magnesia 30 Ml Oral.Susp) 30 ml PO DAILY PRN PRN Reason: Constipation Magnesium Oxide (Magnesium Oxide 400 Mg Tablet) 400 mg PO DAILY [facility] Last Admin: 07/29/24 08:55 Dose: 400 mg Multivitamins/Vitamin C (Multivitamin Tablet) 1 tab PO DAILY [facility] Last Admin: 07/29/24 08:55 Dose: 1 tab Potassium Chloride (Potassium Chloride Er 10 Meq Tablet.Er) 10 meq PO DAILY [facility] Last Admin: 07/29/24 08:55 Dose: 10 meq Trazodone HCl (Trazodone Hcl 50 Mg Tablet) 50 mg PO BEDTIME MRX1 PRN PRN Reason: Insomnia Vitamin D (Cholecalciferol (Vitamin D3) 25 Mcg Tablet) 25 mcg PO DAILY [facility] Last Admin: 07/29/24 08:57 Dose: 25 mcg Allergies Allergies Allergy/AdvReac Type Severity Reaction Status Date / Time cephalexin Allergy Unknown Unknown Verified 07/24/24 13:07 ciprofloxacin Allergy Unknown Unknown Verified 07/24/24 13:07 sulfadiazine Allergy Unknown Unknown Verified 07/24/24 13:07 nitrofurantoin Allergy Unknown Verified 07/24/24 13:07 [From Macrobid] haloperidol [From Haldol] AdvReac Numbness Verified 07/17/24 12:27 Prednisone Allergy Unknown Unknown Uncoded 07/24/24 13:07 Assessment & Plan Assessment & Plan (1) Schizoaffective disorder, bipolar type: Status: Acute Code(s): F25.0 - Schizoaffective disorder, bipolar type Plan Patient readmitted with psychotic symptoms restart olanzapine 2.5 mg at bedtime continue at present Rexulti 0.5 mg daily patient unable tolerate higher doses of olanzapine reportedly and has had side effects on Risperdal. Unclear if has been tried on Abilify patient states she is unable to afford the Rexulti. She is currently denying active suicidal thoughts. Appears patient has been having cognitive issues she does have vascular disease would most likely benefit from VNA supervision or other supervision through [facility] 07/22/2024: Reports wanting help with anxiety , mood and worrying about people to speaking about her and reluctantly agreed to increase nighttime olanzapine to 5 mg, rather than 2.5 mg twice daily 07/23/24: no med changes 07/24 consider change to abilify and SCOTT, given stopping medications quickly after discharge. pt ambivalent about this. 07/25 can try abilify oral, stop olanzapine, continue rexulti as abilify takes full effect. 07/26 d/c olanzapine, d/c rexulti. will try abilify 10mg po daily- titrate as tolerated. plan for SCOTT if effective and tolerable. 07/27 continue tx. continue abilify 10mg po daily. 07/28 continue tx. 07/29: continue current management and treatment plan. Reason for continued inpatient stay Substantial Risk for: inability to function, rapid decompensation and med/psych decompensation Time Spent With Patient Time: Total time managing care of this patient today ____ minutes.
[2024-07-29 20:00] VITALS: BP 141/63; PULSE 61; TEMP 36.7; O2SAT 98
[2024-07-29 21:23] VITALS: BP 141/63
[2024-07-29 21:24] VITALS: BP 141/63; PULSE 62
[2024-07-29] MEDS: Milk of Magnesia 30 ML ORAL.SUSP PO (21:30)
[2024-07-30 08:00] VITALS: BP 144/66; PULSE 68; RESP 18; TEMP 36.4; O2SAT 97
[2024-07-30] MEDS: ARIPiprazole 10 MG TABLET PO (08:36)
[2024-07-30] MEDS: lisinopriL 10 MG TABLET PO ×2 (08:37→20:25)
[2024-07-30] MEDS: Ezetimibe 10 MG TABLET PO (08:37)
[2024-07-30] MEDS: Magnesium Oxide 400 MG TABLET PO (08:37)
[2024-07-30] MEDS: Furosemide 40 MG TABLET PO (08:37)
[2024-07-30] MEDS: Aspirin Enteric Coated 81 MG TABLET.DR PO (08:38)
[2024-07-30] MEDS: Potassium Chloride ER 10 MEQ TABLET.ER PO (08:38)
[2024-07-30] MEDS: Cholecalciferol (Vitamin D3) 25 MCG TABLET PO (08:39)
[2024-07-30] MEDS: Multivitamin TABLET 1 TAB PO (08:39)
[2024-07-30] MEDS: carvediloL 6.25 MG TABLET PO ×2 (08:39→20:25)
[2024-07-30] MEDS: amLODIPine Besylate 5 MG TABLET PO (08:39)
--- NOTE | 2024-07-30 14:42 | HO.PSYCHPN ---
Subjective Subjective Date of Service: 07/30/24 Reason For Visit: psychosis/noncompliance Interim History: Pt is visible on the unit for meals. She is cooperative. Isolates in her room. Some anxiety about her medications. No SI. No side effects. No AVH. She is eating well. Sleep is good. VS stable. Review of Systems Review of Systems Denies any shortness of breath, chest pain, dizziness, lightheadedness, abdominal pain or discomfort, nausea vomiting or diarrhea Yes all other systems are reviewed and are negative Constitutional: Reports as per [facility] Mental Status Exam Mental Status Exam Narrative: Appearance: casually groomed, good hygiene, in NAD Behavior: guarded, ambivalent, superficially cooperative Psychomotor: some retardation Speech: clear, normal rate/rhythm/spontaneous TP:repetitive and ambivalent TC: some suspiciousness, not sure why she would be brought to the hospital nor why would others be concerned about her. Mood: okay Affect: constricted SI: denies HI: denies VH/AH: appears internally preoccupied but denies Delusions: worried about side effects of medications. Insight/judgment: impaired x 2 Memory/cog:alert, oriented x 4. Patient Appearance: Well Grooomed Patient Orientation: Person, Place, Time and Situation Level of Consciousness: Alert Patient Behavior: Appropriate and Isolative Mood Description: Withdrawn Affect Description: Depressed Patient Cognition Impaired: No Ability to Follow Directions: Good Speech Pattern: Clear Memory Description: Intact Diagnostics Vital Signs (24Hr): Vital Signs - 24 hr 07/29/24 20:00 07/29/24 21:23 07/29/24 21:24 Temperature 98.1 F Pulse Rate 61 62 Respiratory Rate Blood Pressure 141/63 H 141/63 H 141/63 H Pulse Oximetry 98 Oxygen Delivery Method Room Air 07/30/24 08:00 Temperature 97.6 F Pulse Rate 68 Respiratory Rate 18 Blood Pressure 144/66 H Pulse Oximetry 97 Oxygen Delivery Method Room Air BMI result Body Mass Index 21.8 Labs 07/17/24 13:41 07/21/24 07:20 Medications Medications Current Medications Acetaminophen (Acetaminophen 325 Mg Tablet) 650 mg PO Q6H PRN PRN Reason: Headache/Pain, Scale 1-10 Al Hydroxide/Mg Hydroxide (Magnesium Hydrox/Alum Hydrox 30 Ml Oral.Susp) 30 ml PO Q6H PRN PRN Reason: Heartburn/Nausea Amlodipine Besylate (Amlodipine Besylate 5 Mg Tablet) 5 mg PO DAILY [facility]; Protocol Last Admin: 07/30/24 08:39 Dose: 5 mg Aripiprazole (Aripiprazole 10 Mg Tablet) 10 mg PO DAILY [facility] Last Admin: 07/30/24 08:36 Dose: 10 mg Aspirin (Aspirin Enteric Coated 81 Mg Tablet.Dr) 81 mg PO DAILY [facility] Last Admin: 07/30/24 08:38 Dose: 81 mg Carvedilol (Carvedilol 6.25 Mg Tablet) 6.25 mg PO BID [facility]; Protocol Last Admin: 07/30/24 08:39 Dose: 6.25 mg Ezetimibe (Ezetimibe 10 Mg Tablet) 10 mg PO DAILY [facility] Last Admin: 07/30/24 08:37 Dose: 10 mg Furosemide (Furosemide 40 Mg Tablet) 40 mg PO DAILY [facility]; Protocol Last Admin: 07/30/24 08:37 Dose: 40 mg Hydroxyzine HCl (Hydroxyzine Hcl 25 Mg Tablet) 25 mg PO Q6H PRN PRN Reason: mild anxiety Last Admin: 07/21/24 20:28 Dose: 25 mg Lisinopril (Lisinopril 10 Mg Tablet) 10 mg PO BID [facility]; Protocol Last Admin: 07/30/24 08:37 Dose: 10 mg Magnesium Hydroxide (Milk Of Magnesia 30 Ml Oral.Susp) 30 ml PO DAILY PRN PRN Reason: Constipation Last Admin: 07/29/24 21:30 Dose: 30 ml Magnesium Oxide (Magnesium Oxide 400 Mg Tablet) 400 mg PO DAILY [facility] Last Admin: 07/30/24 08:37 Dose: 400 mg Multivitamins/Vitamin C (Multivitamin Tablet) 1 tab PO DAILY [facility] Last Admin: 07/30/24 08:39 Dose: 1 tab Potassium Chloride (Potassium Chloride Er 10 Meq Tablet.Er) 10 meq PO DAILY [facility] Last Admin: 07/30/24 08:38 Dose: 10 meq Trazodone HCl (Trazodone Hcl 50 Mg Tablet) 50 mg PO BEDTIME MRX1 PRN PRN Reason: Insomnia Vitamin D (Cholecalciferol (Vitamin D3) 25 Mcg Tablet) 25 mcg PO DAILY [facility] Last Admin: 07/30/24 08:39 Dose: 25 mcg Allergies Allergies Allergy/AdvReac Type Severity Reaction Status Date / Time cephalexin Allergy Unknown Unknown Verified 07/24/24 13:07 ciprofloxacin Allergy Unknown Unknown Verified 07/24/24 13:07 sulfadiazine Allergy Unknown Unknown Verified 07/24/24 13:07 nitrofurantoin Allergy Unknown Verified 07/24/24 13:07 [From Macrobid] haloperidol [From Haldol] AdvReac Numbness Verified 07/17/24 12:27 Prednisone Allergy Unknown Unknown Uncoded 07/24/24 13:07 Assessment & Plan Assessment & Plan (1) Schizoaffective disorder, bipolar type: Status: Acute Code(s): F25.0 - Schizoaffective disorder, bipolar type Plan Patient readmitted with psychotic symptoms restart olanzapine 2.5 mg at bedtime continue at present Rexulti 0.5 mg daily patient unable tolerate higher doses of olanzapine reportedly and has had side effects on Risperdal. Unclear if has been tried on Abilify patient states she is unable to afford the Rexulti. She is currently denying active suicidal thoughts. Appears patient has been having cognitive issues she does have vascular disease would most likely benefit from VNA supervision or other supervision through [facility] 07/22/2024: Reports wanting help with anxiety , mood and worrying about people to speaking about her and reluctantly agreed to increase nighttime olanzapine to 5 mg, rather than 2.5 mg twice daily 07/23/24: no med changes 07/24 consider change to abilify and SCOTT, given stopping medications quickly after discharge. pt ambivalent about this. 07/25 can try abilify oral, stop olanzapine, continue rexulti as abilify takes full effect. 07/26 d/c olanzapine, d/c rexulti. will try abilify 10mg po daily- titrate as tolerated. plan for SCOTT if effective and tolerable. 07/27 continue tx. continue abilify 10mg po daily. 07/28 continue tx. 07/29: continue current management and treatment plan. 07/30: continue current management and treatment plan. Reason for continued inpatient stay Substantial Risk for: inability to function and rapid decompensation Time Spent With Patient Time: Total time managing care of this patient today ____ minutes.
[2024-07-30 20:00] VITALS: BP 152/69; PULSE 64; RESP 16; TEMP 36.6; O2SAT 98
[2024-07-31 08:00] VITALS: BP 110/62; PULSE 67; RESP 16; TEMP 36.7; O2SAT 98
[2024-07-31] MEDS: amLODIPine Besylate 5 MG TABLET PO (08:26)
[2024-07-31] MEDS: Ezetimibe 10 MG TABLET PO (08:26)
[2024-07-31] MEDS: Aspirin Enteric Coated 81 MG TABLET.DR PO (08:26)
[2024-07-31] MEDS: carvediloL 6.25 MG TABLET PO ×2 (08:26→20:47)
[2024-07-31] MEDS: Multivitamin TABLET 1 TAB PO (08:26)
[2024-07-31] MEDS: Potassium Chloride ER 10 MEQ TABLET.ER PO (08:26)
[2024-07-31] MEDS: lisinopriL 10 MG TABLET PO ×2 (08:26→20:47)
[2024-07-31] MEDS: Magnesium Oxide 400 MG TABLET PO (08:26)
[2024-07-31] MEDS: Cholecalciferol (Vitamin D3) 25 MCG TABLET PO (08:26)
[2024-07-31] MEDS: ARIPiprazole 10 MG TABLET PO (08:26)
[2024-07-31] MEDS: Furosemide 40 MG TABLET PO (08:26)
--- NOTE | 2024-07-31 09:35 | P.PNPSI_ITS ---
Subjective Subjective Date of Service: 07/31/24 Reason For Visit: psychosis/noncompliance Interim History: Patient pleasant when approached. Tolerating medications well. No pain. No behavioral issues. No SI. Denies SI/HI/AVH. Eating and sleeping well. Isolative. VS stable. Review of Systems Review of Systems Denies any shortness of breath, chest pain, dizziness, lightheadedness, abdominal pain or discomfort, nausea vomiting or diarrhea Yes all other systems are reviewed and are negative Constitutional: Reports as per [facility] Mental Status Exam Mental Status Exam Narrative: Appearance: casually groomed, good hygiene, in NAD Behavior: guarded, ambivalent, superficially cooperative Psychomotor: some retardation Speech: clear, normal rate/rhythm/spontaneous TP:repetitive and ambivalent TC: some suspiciousness, not sure why she would be brought to the hospital nor why would others be concerned about her. Mood: okay Affect: constricted SI: denies HI: denies VH/AH: appears internally preoccupied but denies Delusions: worried about side effects of medications. Insight/judgment: impaired x 2 Memory/cog:alert, oriented x 4. Patient Appearance: Well Grooomed Patient Orientation: Person, Place, Time and Situation Level of Consciousness: Alert Patient Behavior: Appropriate and Isolative Mood Description: Withdrawn Affect Description: Depressed Patient Cognition Impaired: No Ability to Follow Directions: Good Speech Pattern: Clear Memory Description: Intact Diagnostics Vital Signs (24Hr): Vital Signs - 24 hr 07/30/24 20:00 07/31/24 08:00 Temperature 97.9 F 98.1 F Pulse Rate 64 67 Respiratory Rate 16 16 Blood Pressure 152/69 H 110/62 Pulse Oximetry 98 98 Oxygen Delivery Method Room Air Room Air BMI result Body Mass Index 21.8 Labs 07/17/24 13:41 07/21/24 07:20 Medications Medications Current Medications Acetaminophen (Acetaminophen 325 Mg Tablet) 650 mg PO Q6H PRN PRN Reason: Headache/Pain, Scale 1-10 Al Hydroxide/Mg Hydroxide (Magnesium Hydrox/Alum Hydrox 30 Ml Oral.Susp) 30 ml PO Q6H PRN PRN Reason: Heartburn/Nausea Amlodipine Besylate (Amlodipine Besylate 5 Mg Tablet) 5 mg PO DAILY [facility]; Protocol Last Admin: 07/31/24 08:26 Dose: 5 mg Aripiprazole (Aripiprazole 10 Mg Tablet) 10 mg PO DAILY [facility] Last Admin: 07/31/24 08:26 Dose: 10 mg Aspirin (Aspirin Enteric Coated 81 Mg Tablet.Dr) 81 mg PO DAILY [facility] Last Admin: 07/31/24 08:26 Dose: 81 mg Carvedilol (Carvedilol 6.25 Mg Tablet) 6.25 mg PO BID [facility]; Protocol Last Admin: 07/31/24 08:26 Dose: 6.25 mg Ezetimibe (Ezetimibe 10 Mg Tablet) 10 mg PO DAILY [facility] Last Admin: 07/31/24 08:26 Dose: 10 mg Furosemide (Furosemide 40 Mg Tablet) 40 mg PO DAILY [facility]; Protocol Last Admin: 07/31/24 08:26 Dose: 40 mg Hydroxyzine HCl (Hydroxyzine Hcl 25 Mg Tablet) 25 mg PO Q6H PRN PRN Reason: mild anxiety Last Admin: 07/21/24 20:28 Dose: 25 mg Lisinopril (Lisinopril 10 Mg Tablet) 10 mg PO BID [facility]; Protocol Last Admin: 07/31/24 08:26 Dose: 10 mg Magnesium Hydroxide (Milk Of Magnesia 30 Ml Oral.Susp) 30 ml PO DAILY PRN PRN Reason: Constipation Last Admin: 07/29/24 21:30 Dose: 30 ml Magnesium Oxide (Magnesium Oxide 400 Mg Tablet) 400 mg PO DAILY [facility] Last Admin: 07/31/24 08:26 Dose: 400 mg Multivitamins/Vitamin C (Multivitamin Tablet) 1 tab PO DAILY [facility] Last Admin: 07/31/24 08:26 Dose: 1 tab Potassium Chloride (Potassium Chloride Er 10 Meq Tablet.Er) 10 meq PO DAILY [facility] Last Admin: 07/31/24 08:26 Dose: 10 meq Trazodone HCl (Trazodone Hcl 50 Mg Tablet) 50 mg PO BEDTIME MRX1 PRN PRN Reason: Insomnia Vitamin D (Cholecalciferol (Vitamin D3) 25 Mcg Tablet) 25 mcg PO DAILY [facility] Last Admin: 07/31/24 08:26 Dose: 25 mcg Allergies Allergies Allergy/AdvReac Type Severity Reaction Status Date / Time cephalexin Allergy Unknown Unknown Verified 07/24/24 13:07 ciprofloxacin Allergy Unknown Unknown Verified 07/24/24 13:07 sulfadiazine Allergy Unknown Unknown Verified 07/24/24 13:07 nitrofurantoin Allergy Unknown Verified 07/24/24 13:07 [From Macrobid] haloperidol [From Haldol] AdvReac Numbness Verified 07/17/24 12:27 Prednisone Allergy Unknown Unknown Uncoded 07/24/24 13:07 Assessment & Plan Assessment & Plan (1) Schizoaffective disorder, bipolar type: Status: Acute Code(s): F25.0 - Schizoaffective disorder, bipolar type Plan Patient readmitted with psychotic symptoms restart olanzapine 2.5 mg at bedtime continue at present Rexulti 0.5 mg daily patient unable tolerate higher doses of olanzapine reportedly and has had side effects on Risperdal. Unclear if has been tried on Abilify patient states she is unable to afford the Rexulti. She is currently denying active suicidal thoughts. Appears patient has been having cognitive issues she does have vascular disease would most likely benefit from VNA supervision or other supervision through [place] [facility] 07/22/2024: Reports wanting help with anxiety , mood and worrying about people to speaking about her and reluctantly agreed to increase nighttime olanzapine to 5 mg, rather than 2.5 mg twice daily 07/23/24: no med changes 07/24 consider change to abilify and SCOTT, given stopping medications quickly after discharge. pt ambivalent about this. 07/25 can try abilify oral, stop olanzapine, continue rexulti as abilify takes full effect. 07/26 d/c olanzapine, d/c rexulti. will try abilify 10mg po daily- titrate as tolerated. plan for SCOTT if effective and tolerable. 07/27 continue tx. continue abilify 10mg po daily. 07/28 continue tx. 07/29: continue current management and treatment plan. 07/30: continue current management and treatment plan. 07/31: continue current management and treatment plan. Reason for continued inpatient stay Substantial Risk for: inability to function and rapid decompensation Time Spent With Patient Time: Total time managing care of this patient today ____ minutes.
[2024-07-31 20:00] VITALS: BP 142/70; PULSE 64; RESP 16; TEMP 36.8; O2SAT 98
[2024-07-31 20:47] VITALS: BP 142/70; PULSE 65
[2024-08-01 08:00] VITALS: BP 111/56; PULSE 73; RESP 16; TEMP 36.5; O2SAT 97
--- NOTE | 2024-08-01 08:41 | P.PNPSI_ITS ---
Subjective Subjective Date of Service: 08/01/24 Reason For Visit: psychosis/noncompliance Subjective Notes: Conditional Voluntary Interim History: Pt sleeping through the night. She denies any side effects with abilify. no overt psychosis or delusions. She appears a little bit calmer. She is ambivalent still about decisions but less so. No SI/HI. She can continue tx outpatient. I would wait one more weel on oral abilify before SCOTT. She tapping of feet, but this is not new, monitor any signs of akathisia. Review of Systems Review of Systems Denies any shortness of breath, chest pain, dizziness, lightheadedness, abdominal pain or discomfort, nausea vomiting or diarrhea Yes all other systems are reviewed and are negative Constitutional: Reports as per [facility] Mental Status Exam Mental Status Exam Narrative: Appearance: casually groomed, good hygiene, in NAD Behavior: guarded, ambivalent, superficially cooperative Psychomotor: some retardation Speech: clear, normal rate/rhythm/spontaneous TP:repetitive and ambivalent TC: some suspiciousness, not sure why she would be brought to the hospital nor why would others be concerned about her. Mood: okay Affect: constricted SI: denies HI: denies VH/AH: appears internally preoccupied but denies Delusions: worried about side effects of medications. Insight/judgment: impaired x 2 Memory/cog:alert, oriented x 4. Diagnostics Vital Signs (24Hr): Vital Signs - 24 hr 07/31/24 20:00 07/31/24 20:47 07/31/24 20:47 Temperature 98.2 F Pulse Rate 64 65 Respiratory Rate 16 Blood Pressure 142/70 H 142/70 H 142/70 H Pulse Oximetry 98 Oxygen Delivery Method Room Air BMI result Body Mass Index 21.8 Labs 07/17/24 13:41 07/21/24 07:20 Medications Medications Current Medications Acetaminophen (Acetaminophen 325 Mg Tablet) 650 mg PO Q6H PRN PRN Reason: Headache/Pain, Scale 1-10 Al Hydroxide/Mg Hydroxide (Magnesium Hydrox/Alum Hydrox 30 Ml Oral.Susp) 30 ml PO Q6H PRN PRN Reason: Heartburn/Nausea Amlodipine Besylate (Amlodipine Besylate 5 Mg Tablet) 5 mg PO DAILY [facility]; Protocol Last Admin: 07/31/24 08:26 Dose: 5 mg Aripiprazole (Aripiprazole 10 Mg Tablet) 10 mg PO DAILY [facility] Last Admin: 07/31/24 08:26 Dose: 10 mg Aspirin (Aspirin Enteric Coated 81 Mg Tablet.Dr) 81 mg PO DAILY [facility] Last Admin: 07/31/24 08:26 Dose: 81 mg Carvedilol (Carvedilol 6.25 Mg Tablet) 6.25 mg PO BID [facility]; Protocol Last Admin: 07/31/24 20:47 Dose: 6.25 mg Ezetimibe (Ezetimibe 10 Mg Tablet) 10 mg PO DAILY [facility] Last Admin: 07/31/24 08:26 Dose: 10 mg Furosemide (Furosemide 40 Mg Tablet) 40 mg PO DAILY [facility]; Protocol Last Admin: 07/31/24 08:26 Dose: 40 mg Hydroxyzine HCl (Hydroxyzine Hcl 25 Mg Tablet) 25 mg PO Q6H PRN PRN Reason: mild anxiety Last Admin: 07/21/24 20:28 Dose: 25 mg Lisinopril (Lisinopril 10 Mg Tablet) 10 mg PO BID [facility]; Protocol Last Admin: 07/31/24 20:47 Dose: 10 mg Magnesium Hydroxide (Milk Of Magnesia 30 Ml Oral.Susp) 30 ml PO DAILY PRN PRN Reason: Constipation Last Admin: 07/29/24 21:30 Dose: 30 ml Magnesium Oxide (Magnesium Oxide 400 Mg Tablet) 400 mg PO DAILY [facility] Last Admin: 07/31/24 08:26 Dose: 400 mg Multivitamins/Vitamin C (Multivitamin Tablet) 1 tab PO DAILY [facility] Last Admin: 07/31/24 08:26 Dose: 1 tab Potassium Chloride (Potassium Chloride Er 10 Meq Tablet.Er) 10 meq PO DAILY [facility] Last Admin: 07/31/24 08:26 Dose: 10 meq Trazodone HCl (Trazodone Hcl 50 Mg Tablet) 50 mg PO BEDTIME MRX1 PRN PRN Reason: Insomnia Vitamin D (Cholecalciferol (Vitamin D3) 25 Mcg Tablet) 25 mcg PO DAILY [facility] Last Admin: 07/31/24 08:26 Dose: 25 mcg Allergies Allergies Allergy/AdvReac Type Severity Reaction Status Date / Time cephalexin Allergy Unknown Unknown Verified 07/24/24 13:07 ciprofloxacin Allergy Unknown Unknown Verified 07/24/24 13:07 sulfadiazine Allergy Unknown Unknown Verified 07/24/24 13:07 nitrofurantoin Allergy Unknown Verified 07/24/24 13:07 [From Macrobid] haloperidol [From Haldol] AdvReac Numbness Verified 07/17/24 12:27 Prednisone Allergy Unknown Unknown Uncoded 07/24/24 13:07 Assessment & Plan Assessment & Plan (1) Schizoaffective disorder, bipolar type: Status: Acute Code(s): F25.0 - Schizoaffective disorder, bipolar type Plan Patient readmitted with psychotic symptoms restart olanzapine 2.5 mg at bedtime continue at present Rexulti 0.5 mg daily patient unable tolerate higher doses of olanzapine reportedly and has had side effects on Risperdal. Unclear if has been tried on Abilify patient states she is unable to afford the Rexulti. She is currently denying active suicidal thoughts. Appears patient has been having cognitive issues she does have vascular disease would most likely benefit from VNA supervision or other supervision through [place] [facility] 07/22/2024: Reports wanting help with anxiety , mood and worrying about people to speaking about her and reluctantly agreed to increase nighttime olanzapine to 5 mg, rather than 2.5 mg twice daily 07/23/24: no med changes 07/24 consider change to abilify and SCOTT, given stopping medications quickly after discharge. pt ambivalent about this. 07/25 can try abilify oral, stop olanzapine, continue rexulti as abilify takes full effect. 07/26 d/c olanzapine, d/c rexulti. will try abilify 10mg po daily- titrate as tolerated. plan for SCOTT if effective and tolerable. 07/27 continue tx. continue abilify 10mg po daily. 07/28 continue tx. 07/29: continue current management and treatment plan. 07/30: continue current management and treatment plan. 07/31: continue current management and treatment plan. 08/01 continue tx Reason for continued inpatient stay Substantial Risk for: inability to function Time Spent With Patient Time: Total time managing care of this patient today ____ minutes.
[2024-08-01] MEDS: Multivitamin TABLET 1 TAB PO (09:02)
[2024-08-01] MEDS: Ezetimibe 10 MG TABLET PO (09:02)
[2024-08-01] MEDS: ARIPiprazole 10 MG TABLET PO (09:03)
[2024-08-01 09:04] VITALS: BP 111/56; PULSE 73
[2024-08-01] MEDS: Magnesium Oxide 400 MG TABLET PO (09:04)
[2024-08-01] MEDS: carvediloL 6.25 MG TABLET PO ×2 (09:04→20:47)
[2024-08-01] MEDS: Furosemide 40 MG TABLET PO (09:04)
[2024-08-01] MEDS: Cholecalciferol (Vitamin D3) 25 MCG TABLET PO (09:05)
[2024-08-01] MEDS: Potassium Chloride ER 10 MEQ TABLET.ER PO (09:05)
[2024-08-01] MEDS: Aspirin Enteric Coated 81 MG TABLET.DR PO (09:05)
[2024-08-01 09:50] VITALS: BP 109/56; PULSE 72
[2024-08-01 09:56] VITALS: BP 109/56
[2024-08-01 09:57] VITALS: BP 109/56
--- NOTE | 2024-08-01 10:00 | PC.NURSE ---
AM Amlodipine and Lisinopril held per Heide Horvath NP; BP 109/56, P 72. No symptoms reported. Will continue to monitor.
[2024-08-01 20:00] VITALS: BP 131/67; PULSE 68; RESP 16; TEMP 36.5; O2SAT 97
[2024-08-01] MEDS: lisinopriL 10 MG TABLET PO (20:47)
[2024-08-02 08:00] VITALS: BP 131/60; PULSE 71; RESP 16; O2SAT 95
[2024-08-02] MEDS: amLODIPine Besylate 5 MG TABLET PO (08:21)
[2024-08-02] MEDS: Ezetimibe 10 MG TABLET PO (08:21)
[2024-08-02] MEDS: Multivitamin TABLET 1 TAB PO (08:21)
[2024-08-02] MEDS: Magnesium Oxide 400 MG TABLET PO (08:21)
[2024-08-02] MEDS: Aspirin Enteric Coated 81 MG TABLET.DR PO (08:21)
[2024-08-02] MEDS: Furosemide 40 MG TABLET PO (08:22)
[2024-08-02] MEDS: carvediloL 6.25 MG TABLET PO (08:22)
[2024-08-02] MEDS: ARIPiprazole 10 MG TABLET PO (08:22)
[2024-08-02] MEDS: Potassium Chloride ER 10 MEQ TABLET.ER PO (08:22)
[2024-08-02] MEDS: Cholecalciferol (Vitamin D3) 25 MCG TABLET PO (08:22)
[2024-08-02] MEDS: lisinopriL 10 MG TABLET PO (08:23)
--- NOTE | 2024-08-02 08:33 | HO.PSYCHPN ---
Subjective Subjective Reason For Visit: psychosis/noncompliance Diagnostics Vital Signs (24Hr): Vital Signs - 24 hr 08/01/24 09:04 08/01/24 09:04 08/01/24 09:50 Temperature Pulse Rate 73 72 Respiratory Rate Blood Pressure 111/56 L 111/56 L 109/56 L Pulse Oximetry Oxygen Delivery Method 08/01/24 09:56 08/01/24 09:57 08/01/24 20:00 Temperature 97.7 F Pulse Rate 68 Respiratory Rate 16 Blood Pressure 109/56 L 109/56 L 131/67 Pulse Oximetry 97 Oxygen Delivery Method Room Air BMI result Body Mass Index 21.8 Labs 07/17/24 13:41 07/21/24 07:20 Medications Medications Current Medications Acetaminophen (Acetaminophen 325 Mg Tablet) 650 mg PO Q6H PRN PRN Reason: Headache/Pain, Scale 1-10 Al Hydroxide/Mg Hydroxide (Magnesium Hydrox/Alum Hydrox 30 Ml Oral.Susp) 30 ml PO Q6H PRN PRN Reason: Heartburn/Nausea Amlodipine Besylate (Amlodipine Besylate 5 Mg Tablet) 5 mg PO DAILY [facility]; Protocol Last Admin: 08/02/24 08:21 Dose: 5 mg Aripiprazole (Aripiprazole 10 Mg Tablet) 10 mg PO DAILY [facility] Last Admin: 08/02/24 08:22 Dose: 10 mg Aspirin (Aspirin Enteric Coated 81 Mg Tablet.Dr) 81 mg PO DAILY [facility] Last Admin: 08/02/24 08:21 Dose: 81 mg Carvedilol (Carvedilol 6.25 Mg Tablet) 6.25 mg PO BID [facility]; Protocol Last Admin: 08/02/24 08:22 Dose: 6.25 mg Ezetimibe (Ezetimibe 10 Mg Tablet) 10 mg PO DAILY [facility] Last Admin: 08/02/24 08:21 Dose: 10 mg Furosemide (Furosemide 40 Mg Tablet) 40 mg PO DAILY [facility]; Protocol Last Admin: 08/02/24 08:22 Dose: 40 mg Hydroxyzine HCl (Hydroxyzine Hcl 25 Mg Tablet) 25 mg PO Q6H PRN PRN Reason: mild anxiety Last Admin: 07/21/24 20:28 Dose: 25 mg Lisinopril (Lisinopril 10 Mg Tablet) 10 mg PO BID [facility]; Protocol Last Admin: 08/02/24 08:23 Dose: 10 mg Magnesium Hydroxide (Milk Of Magnesia 30 Ml Oral.Susp) 30 ml PO DAILY PRN PRN Reason: Constipation Last Admin: 07/29/24 21:30 Dose: 30 ml Magnesium Oxide (Magnesium Oxide 400 Mg Tablet) 400 mg PO DAILY [facility] Last Admin: 08/02/24 08:21 Dose: 400 mg Multivitamins/Vitamin C (Multivitamin Tablet) 1 tab PO DAILY [facility] Last Admin: 08/02/24 08:21 Dose: 1 tab Potassium Chloride (Potassium Chloride Er 10 Meq Tablet.Er) 10 meq PO DAILY [facility] Last Admin: 08/02/24 08:22 Dose: 10 meq Trazodone HCl (Trazodone Hcl 50 Mg Tablet) 50 mg PO BEDTIME MRX1 PRN PRN Reason: Insomnia Vitamin D (Cholecalciferol (Vitamin D3) 25 Mcg Tablet) 25 mcg PO DAILY [facility] Last Admin: 08/02/24 08:22 Dose: 25 mcg Allergies Allergies Allergy/AdvReac Type Severity Reaction Status Date / Time cephalexin Allergy Unknown Unknown Verified 07/24/24 13:07 ciprofloxacin Allergy Unknown Unknown Verified 07/24/24 13:07 sulfadiazine Allergy Unknown Unknown Verified 07/24/24 13:07 nitrofurantoin Allergy Unknown Verified 07/24/24 13:07 [From Macrobid] haloperidol [From Haldol] AdvReac Numbness Verified 07/17/24 12:27 Prednisone Allergy Unknown Unknown Uncoded 07/24/24 13:07 Assessment & Plan Assessment & Plan (1) Schizoaffective disorder, bipolar type: Status: Acute Code(s): F25.0 - Schizoaffective disorder, bipolar type Plan Patient readmitted with psychotic symptoms restart olanzapine 2.5 mg at bedtime continue at present Rexulti 0.5 mg daily patient unable tolerate higher doses of olanzapine reportedly and has had side effects on Risperdal. Unclear if has been tried on Abilify patient states she is unable to afford the Rexulti. She is currently denying active suicidal thoughts. Appears patient has been having cognitive issues she does have vascular disease would most likely benefit from VNA supervision or other supervision through [place] [facility] 07/22/2024: Reports wanting help with anxiety , mood and worrying about people to speaking about her and reluctantly agreed to increase nighttime olanzapine to 5 mg, rather than 2.5 mg twice daily 07/23/24: no med changes 07/24 consider change to abilify and SCOTT, given stopping medications quickly after discharge. pt ambivalent about this. 07/25 can try abilify oral, stop olanzapine, continue rexulti as abilify takes full effect. 07/26 d/c olanzapine, d/c rexulti. will try abilify 10mg po daily- titrate as tolerated. plan for SCOTT if effective and tolerable. 07/27 continue tx. continue abilify 10mg po daily. 07/28 continue tx. 07/29: continue current management and treatment plan. 07/30: continue current management and treatment plan. 07/31: continue current management and treatment plan. 08/01 continue tx Time Spent With Patient Time: Total time managing care of this patient today ____ minutes.
--- NOTE | 2024-08-02 09:05 | PM.PSYDC ---
DS: Providers Provider Date of Service: 08/02/24 Date of admission: 07/20/24 17:00 Date of discharge: 08/02/24 Primary care physician: Garrison Beatty MD Discharging clinician: Heide Mota DS: Diagnosis Discharge Diagnosis (1) Schizoaffective disorder, bipolar type: Status: Acute DS: Medications Discharge Medications Home Medications: Previous Rx's ?Medication ?Instructions ?Recorded amlodipine 5 mg tablet 5 mg PO DAILY #30 tabs 08/02/24 aripiprazole 10 mg tablet 10 mg PO DAILY #30 tabs 08/02/24 aspirin 81 mg tablet,delayed 81 mg PO DAILY #30 tabs 08/02/24 release carvedilol 6.25 mg tablet 6.25 mg PO BID #60 tabs 08/02/24 cholecalciferol (vitamin D3) 25 25 mcg PO DAILY #30 tabs 08/02/24 mcg (1,000 unit) tablet ezetimibe 10 mg tablet 10 mg PO DAILY #30 tabs 08/02/24 furosemide 40 mg tablet 40 mg PO DAILY #30 tabs 08/02/24 lisinopril 10 mg tablet 10 mg PO BID #60 tabs 08/02/24 magnesium oxide 400 mg (241.3 mg 400 mg PO DAILY #30 tabs 08/02/24 magnesium) tablet multivitamin (Daily-Brielle tablet) 1 tab PO DAILY #30 tabs 08/02/24 potassium chloride 10 mEq 10 meq PO DAILY #30 tabs 08/02/24 tablet,extended release(part/cryst) Mental Status Exam Mental Status Exam Narrative: Appearance: casually groomed, good hygiene, in NAD Behavior: guarded, ambivalent, superficially cooperative Psychomotor: some retardation Speech: clear, normal rate/rhythm/spontaneous TP:less repetitive and ambivalent TC: some suspiciousness, not sure why she would be brought to the hospital nor why would others be concerned about her. Mood: okay Affect: constricted SI: denies HI: denies VH/AH: none Delusions: worried about side effects of medications. Insight/judgment: impaired x 2 Memory/cog:alert, oriented x 4. DS: Summary Hospital Course Hospital Course: Mrs. Stephenson is a 79 year-old woman with hx of schizoaffective disorder who was readmitted to [facility] after discharged on 06/2024. Pt presented with increase suspiciousness, somatic preoccupation, no SI/HI. She had stopped taking olanzapine due to concerns in terms of causing palpitation and other cardiac side effects, which have not been proven to be the case. She does have a hx of cardiomyopathy and some of her reported symptoms are due to this but not due to side effect of medication. Mrs. Stephenson was admitted on a CV and placed on 15 minutes checks for safety. Pt presented as ambivalent but less so than before. She did not present with overt paranoid delusions but was somatically preoccupied. We had discussed to start a medication that has SCOTT. Given that she is sensitive to effect of higher potency antipsychotics in that she has a resting/action tremor more pronounced on right hand, addition of medications such as risperidone or even paliperidone are less suitable. She had done well with rexulti but had high copay and therefore this medication was discontinued and switched back to olanzapine. We discussed trial of abilify with plan to eventually transition to SCOTT. She was started on abilify 10mg po daily. She presented as calm, cooperative, less guarded. No SI/HI. Some residual ambivalence but less so than before. She has been on the medication for about one week. I did notice mild tapping of the feet, but no associated subjective sense of restlessness. I would advice to continue oral for one more week before considering SCOTT. Due to the fact that she is not presenting with acute symptoms and no additional safety concerns, her insurance did not cover additional days until patient receives SCOTT. Pt is open to the idea of a SCOTT, although with some hesitation. She denied any side effects with the medications. She presented overall less somatically preoccupied. No other noted exacerbation of tremors or movement disorder. She was visible on the unit. She was social with select peers, although kept to herself for the most past. She was eating and sleeping well. There were no incidences of disruptive behaviors. No need for restraints. She SHOULD ONLY BE ON ABILIFY, all other antipsychotics including rexulti and olanzapine have been discontinued. Plan is for her to receive SCOTT once proven she is does not have side effects and medication. She can go to [place] to receive SCOTT monthly. Status at Discharge Cognitive/behavioral status at discharge: Pt with somewhat brighter affect. No SI/HI. No VH/AH. Less somatically preoccupied. No aggression towards self or others. Sleeping and eating well. Functional status at discharge: independent ambulation Overall status at discharge: patient is progressing back to baseline Time Spent with Patient Time attestation: Total time managing care of this patient today __35__ minutes. Time spent: Greater than 30 minutes Discharge Plan Discharge Anticipated Discharge Date/Time: 08/02/24 08:55 Patient Disposition: Home, Self-Care Discharge Diagnosis: Schizoaffective Disorder Referrals: Nellie Dalal [facility] [Other] - 08/15/24 12:00 pm Garrison Beatty MD [Primary Care Provider] - 1 Week (Request was made for a PCP appointment. The office will call you directly with the appointment date and time.) Discharge Medications: New carvedilol 6.25 mg Tablet 6.25 mg PO BID Qty: 60 0RF Protocol: Hold for SBP/HR < HOLD for SBP < : 90 HOLD for HR < : 60 amlodipine 5 mg Tablet 5 mg PO DAILY Qty: 30 0RF Protocol: Hold for SBP< HOLD for SBP < : 90 aspirin 81 mg Tablet,Delayed Release (Dr/Ec) 81 mg PO DAILY Qty: 30 0RF lisinopril 10 mg Tablet 10 mg PO BID Qty: 60 0RF Protocol: Hold for SBP< HOLD for SBP < : 90 ezetimibe 10 mg Tablet 10 mg PO DAILY Qty: 30 0RF aripiprazole 10 mg Tablet 10 mg PO DAILY Qty: 30 0RF furosemide 40 mg Tablet 40 mg PO DAILY Qty: 30 0RF Protocol: Hold for SBP< HOLD for SBP < : 90 magnesium oxide 400 mg (241.3 mg magnesium) Tablet 400 mg PO DAILY Qty: 30 0RF potassium chloride 10 mEq Tablet,Er Particles/Crystals 10 meq PO DAILY Qty: 30 0RF cholecalciferol (vitamin D3) 25 mcg (1,000 unit) Tablet 25 mcg PO DAILY Qty: 30 0RF multivitamin [Daily-Brielle] Tablet 1 tab PO DAILY Qty: 30 0RF Discontinued lisinopril 10 mg Tablet 10 mg PO BID 30 Days Qty: 60 0RF Protocol: Hold for SBP< HOLD for SBP < : 90 furosemide 40 mg Tablet 40 mg PO DAILY 30 Days Qty: 30 0RF Protocol: Hold for SBP< HOLD for SBP < : 90 multivitamin [Daily-Brielle] Tablet 1 tab PO DAILY Qty: 30 0RF potassium chloride 10 mEq Capsule, Extended Release 10 meq PO DAILY 30 Days Qty: 30 0RF aspirin 81 mg Tablet,Delayed Release (Dr/Ec) 81 mg PO DAILY Qty: 30 0RF magnesium oxide 400 mg (241.3 mg magnesium) Tablet 400 mg PO DAILY Qty: 30 0RF cholecalciferol (vitamin D3) 25 mcg (1,000 unit) Tablet 25 mcg PO DAILY Qty: 30 0RF carvedilol 6.25 mg Tablet 6.25 mg PO BID Qty: 60 0RF Protocol: Hold for SBP/HR < HOLD for SBP < : 90 HOLD for HR < : 60 amlodipine 5 mg Tablet 5 mg PO DAILY Qty: 30 0RF Protocol: Hold for SBP< HOLD for SBP < : 90 olanzapine 2.5 mg tablet 2.5 mg PO BEDTIME Qty: 30 0RF Discharge Orders: Discharge Order (Routine); Ordered 08/02/24 Ordered By: Heide Mota Diet: Low salt diet Activity on Discharge: As tolerated Stand Alone Forms: Patient Portal Discharge page Print Language: Indian Care Plan Goals: 1. Maintain mood 2. No SI/HI Health Concerns: Follow up with PCP and cardiology for routine care Plan of Treatment: 1. Takes medications as prescribed 2. Go to nearest ED and call 911 in event of emergency Assessment: Pt with brighter affect. Less suspicious. Less ambivalent but continues to present with some degree of ambivalence. Sleeping and eating well. no overt delusional content reported. Less somatically preoccupied.
== END 2024-08-02 13:00 | disposition home or self-care (01) | DRG 885 ==
LOC: HO.ED 23:04 → HO.PGERI 07-20 19:10
PROVIDERS: Registered Nurse Emergency; Admitting Provider Psychiatry & Neurology Psychiatry; Emergency Provider Emergency Medicine Emergency Medical Services; PCP Internal Medicine; Visit Provider Psychiatry & Neurology Psychiatry
DX: F25.0 Schizoaffective disorder, bipolar type (principal); I25.10 Atherosclerotic heart disease of native coronary artery without angina pectoris; I10 Essential (primary) hypertension; E78.5 Hyperlipidemia, unspecified; Z20.822 Contact with and (suspected) exposure to COVID-19; F03.90 Unspecified dementia, unspecified severity, without behavioral disturbance, psychotic disturbance, mood disturbance, and anxiety; Z91.148 Patient's other noncompliance with medication regimen for other reason; Z95.1 Presence of aortocoronary bypass graft; Z79.82 Long term (current) use of aspirin; Z79.899 Other long term (current) drug therapy
CPT/HCPCS: 0241U; 36415; 80053; 80061; 80307; 81003; 83036; 84484; 85025; 93005; 99285; S9485

== ENCOUNTER → 2024-07-18 12:36 | Outpatient (BNV) | payer MEDICARE, SELFPAY | PROVIDERS: Emergency Provider Emergency Medicine Emergency Medical Services; PCP Internal Medicine; Visit Provider Internal Medicine Cardiovascular Disease | DX: I51.7 Cardiomegaly (principal); I25.2 Old myocardial infarction | CPT/HCPCS: 93010 ==

== ENCOUNTER → 2024-07-20 17:00 | Outpatient (BNV) | payer MEDICARE, SELFPAY | PROVIDERS: Admitting Provider Psychiatry & Neurology Psychiatry; Emergency Provider Emergency Medicine Emergency Medical Services; PCP Internal Medicine; Visit Provider Psychiatry & Neurology Psychiatry | DX: F25.0 Schizoaffective disorder, bipolar type (principal) | CPT/HCPCS: 99231; 99232 ==

== ENCOUNTER → 2024-07-20 17:00 | Outpatient (BNV) | payer MEDICARE, SELFPAY | PROVIDERS: Admitting Provider Psychiatry & Neurology Psychiatry; Emergency Provider Emergency Medicine Emergency Medical Services; PCP Internal Medicine; Visit Provider Psychiatry & Neurology Psychiatry | DX: F25.0 Schizoaffective disorder, bipolar type (principal) | CPT/HCPCS: 90792 ==

== ENCOUNTER → 2024-07-20 17:00 | Outpatient (BNV) | payer MEDICARE, SELFPAY | PROVIDERS: Admitting Provider Psychiatry & Neurology Psychiatry; Emergency Provider Emergency Medicine Emergency Medical Services; PCP Internal Medicine; Visit Provider Nurse Practitioner Family | DX: I10 Essential (primary) hypertension (principal) | CPT/HCPCS: 99232 ==